=== PATIENT | female | born 1950 | race Caucasian/White ===

== ENCOUNTER → 2017-06-24 10:34 | Outpatient (CLI) | payer MEDICARE, OTHER, SELFPAY ==
--- NOTE | 2017-06-24 10:43 | NM_ITS ---
CLINICAL: 67-year-old female with reported history of abdominal pain. RADIONUCLIDE HEPATOBILIARY SCINTIGRAPHY COMPARISON: None available FINDINGS: Following the intravenous administration of 5.2 mCi of 99m Tc Mebrofenin, hepatobiliary images reveal: 1. Relatively prompt and homogeneous radiopharmaceutical concentration is noted by a normal sized liver. No parenchymal defects are identified. 2. Gallbladder activity is identified at 45 minutes post radiopharmaceutical administration. 3. Small intestinal tract is observed at 30 minutes following tracer injection. 4. Washout of the radiopharmaceutical by the hepatic parenchyma appears qualitatively normal. The patient was administered a fatty meal (8 ounces BOOST-30 grams fat). The post fatty meal consumption gallbladder ejection fraction calculated at 31 minutes was noted to be 43.0 % (normal greater than 30%). NM/Hepatobilliary Img w/Pharm Int IMPRESSION: 1. NORMAL 99m Tc Mebrofenin hepatobiliary imaging examination with fatty meal ingestion. A. A gallbladder ejection fraction calculated to be greater than 30% following the administration of a consumed fatty meal makes the probability of functional hepatobiliary disease (gallbladder and/or sphincter of Oddi dyskinesia) and/or organic hepatobiliary disease (chronic acalculous cholecystitis and/or cystic duct syndrome) to be low. (Amairani and Elan, J Nucl Med 43: 1603, 2002). Electronically Signed: David Gilliam DO at 23:37 EDT Tel , Service support ,
== END ==
PROVIDERS: Family Provider Internal Medicine; PCP Internal Medicine; Visit Provider Internal Medicine Gastroenterology
DX: R11.0 Nausea (principal); R10.11 Right upper quadrant pain
CPT/HCPCS: 78227; A9537

== ENCOUNTER → 2020-02-08 12:28 | Outpatient (CLI) | payer MEDICARE, OTHER, SELFPAY ==
[2020-01-27 12:05] VITALS: BMI 25.7
--- NOTE | 2020-02-08 12:30 | MRI_ITS ---
STUDY: MRI CERVICAL SPINE WITHOUT CONTRAST REASON FOR EXAM: Female, 69 years old. pain -- chronic neck pain, bilat arm burning/numbness TECHNIQUE: Standardized fat and water weighted pulse sequences were obtained in the sagittal and axial planes. COMPARISON: None FINDINGS: Normal foramen magnum and brainstem-cervical cord junction. Normal craniovertebral junction. Normal anterior atlantoaxial articulation. Normal odontoid process. Cervical lordosis maintained. No significant scoliosis. No abnormal cord signal. Vascular flow voids maintained. Minimal paraspinal muscle atrophy. No acute soft tissue process. T2 hemangioma. No acute fracture. No acute dislocation. No acute bone destruction. Moderate facet joint arthrosis. No significant spondylolisthesis. C2-3: Minimal endplate spondylosis. Normal disc height, signal and morphology. Normal central canal. Minimal left neural foraminal narrowing. Normal right neural foramina. C3-4: Minimal endplate spondylosis. Shallow disc/osteophyte complex. Normal central canal. Minimal neural foraminal narrowing. C4-5: Normal endplates. Shallow disc bulge. Normal central canal. Normal neural foramina. C5-6: Mild endplate spondylosis. Bilobed disc bulge. Severe bilateral neural foraminal narrowing, right greater than left. Normal central canal. C6-7: Mild endplate spondylosis. Left paracentral disc/osteophyte complex. Minimal central canal narrowing. Severe left neural foraminal narrowing. Normal right neural foramina. C7-T1: Normal endplates. Shallow disc/osteophyte complex. No central canal narrowing. Mild left neural foraminal narrowing. Normal right neural foramina. MRI/Spine Cervical (Routine) IMPRESSION: Multilevel intervertebral disc disease with minimal central canal narrowing Multilevel neural foraminal narrowing most severe at C5-6 and C6-7 Mild/moderate cervical spine osteoarthritis Electronically Signed: Jefry Sommers DO at 13:46 EST Tel , Service support ,
== END ==
PROVIDERS: PCP Internal Medicine; Referring Provider Orthopaedic Surgery; Visit Provider Orthopaedic Surgery
DX: M50.322 Other cervical disc degeneration at C5-C6 level (principal)
CPT/HCPCS: 72141

== ENCOUNTER 2020-04-19 10:30 | Outpatient (RCR) | payer MEDICARE, OTHER, SELFPAY ==
--- NOTE | 2020-03-27 11:48 | HP.PTEVAL ---
Patient's Visit Information YURY GAYLE is a 70 year old F referred to Physical Therapy by Dr. Beulah Bain MD with a diagnosis of BACK PAIN. Date of Evaluation: 03/27/20 Physical Therapist: Massiel Varela PT, Cert MDT - Visit Plan Frequency: 2-3x /Week Duration: 4-6 Weeks Plan: CONSIDER LOW BACK US. CONSIDER AQUATIC THERAPY. POSTURE CORRECTION/STRENGTHENING, INSTRUCTION IN APPROPRIATE BODY MECHANICS AND ACTIVITY MODIFICATIONS. DLS STARTING WITH A NEUTRAL SPINE PROGRESSING ROM TOLERATED. EMERITA LE ROM, STRETCHING AND STRENGTHENING. HEP INSTRUCTION. - Subjective Work/Leisure: RETIRED. LIVES ALONE. DRIVES. Disability: NO. Present symptoms: LOW BACK PAIN/STIFFNESS, NUMBNESS/TINGLING B THIGH AND BURNING IN EMERITA FEET. Present since: CHRONIC/YEARS OF LBP. LEG SX'S OCCURRED FOR MONTHS IN 2019. LE SX'S WENT AWAY SEVERAL WKS AGO. Pain Scale: N/A. Commenced as a result of: NO APPARENT REASON. Symptoms at onset: LOW BACK PAIN/STIFFNESS. Worse: IN THE MORNING BEFORE GETTING OUT OF BED WITH MVMTS, BURNING IN JOINTS AT NIGHT AND WHEN WAKES UP. BEING COLD. Better: FLEETING. Disturbed sleep: YES. Previous history/Previous treatment: CHIROPRACTOR X ABOUT 40 YEARS AND STILL GOING. REPORTS SHE STARTED GOING IN HER 30'S FOR SCOLIOSIS AND IT STRAIGHTENED OUT. NO BACK SURGERY. HAS HAD PT AT [facility] FOR LOW BACK IN THE PAST - STOPPED DUE TO THE VIRUS BUT SEEMED TO BE HELPING. Treatment this episode: LUMBAR SEAN JAN 2020 - HELPED THE CHILLS - HASN'T HAD ANY SINCE THEN BUT STILL GETS REALLY COLD. Coughing/sneezing/straining: NEGATIVE. Gait: NORMAL. Difficulty initiating urinatin: NO. Accidents: NO. Unexplained weight loss: NO. Imaging: AUGUST 2019 LUMBAR MRI - [facility] - MILD MULTILEVEL SPONDYLOSIS WITH NO HIGH GRADE NEURAL COMPRESISON AT ANY LEVEL. PATIENT REPORTS THEY TOLD HER THAT SHE IS NOT READY FOR SURGERY AND MAY NEVER BE AND REFERRED HER TO PAIN MGMT. PMH: R KNEE OA AND INJECTIONS, FIBROMYALGIA, ESTROGEN DEFICIENCY, BREAST CANCER 2015/2016 - TREATED WITH RADIATION. ALSO TREATED WITH CHEMO BUT COULDN'T TOLERATED IT - DERMATITIS OF VAGINAL AREA X 1.5 YEARS. Recent major surgery: UNREMARKABLE. OTHER: PATIENT REPORTS THAT FOR YEARS SHE HAS NOT BEEN ABLE TO GET ANSWERS ABOUT HER PAIN. PATIENT REPORTS SHE FEELS THE START OF HER MAJOR HEALTH PROBLEMS WAS WHEN SHE STARTED THE CHEMO DRUGS. STATES SHE WAS VERY SICK AND HOMEBOUND. - Objective Sitting/Standing Posture: POOR. Active Correction of posture: NE. Other Observations: INDEP SIT TO STAND WITHOUT UE ASSIST. INDEP GAIT INTO PT WITHOUT ANY ASSISTIVE DEVICES OR LOB. Motor deficit: EMERITA LE'S 5/5 WITH MMT'ING EXCEPT HIPS 4-/5. Sensory deficit: EMERITA LE LIGHT TOUCH SENSATION INTACT AND SYMMETRICAL WITH TESTING TODAY. ROM deficit: MILD HS AND GASTROC SOLEUS COMPLEX TIGHTNESS. Reflexes: EMERITA LE DTR'S 2/3. Dural Signs: NEGATIVE EMERITA LE'S. Lumbar mvmt loss: flex - NIL. ext - MOD. R SG - MIN. L SG - MOD. PATIENT DENIES PAIN WITH LUMBAR ROM TESTING ALL PLANES. NO PAIN OR HURT BUT FELT SOME CRACKING. Core strength: POOR. Palpation: NO ACUTE LOWER THORACIC OR LUMBAR OR HIP TENDERNESS. TREATMENT: NEUROMUSCULAR REEDUCATION - RETRAINING OF MVMT AND POSTURE FOR SITTING, LYING AND STANDING ACTIVITIES. - Goals Goal 1:: DECREASE C/O LOW BACK AND EMERITA LE SX'S. Goal Time Frame: 4-6 Weeks Goal 2:: IMPROVE LIFTING, SLEEP, SOCIAL LIFE, AND HOMEMAKING FUNCTION. Goal Time Frame: 4-6 Weeks Goal 3:: INSTRUCT IN PROPHYLAXIS Goal Time Frame: 4-6 Weeks - Anticipated Interventions Patient/Client Instruction: Educate patient on: Condition, Plan of Care, Risk Factors, Benefits of Fitness Program For the Purpose of:: To improve self management Therapeutic Exercise to Include: Strength training, Body mechanics, Postural training, Flexibilty training, Neuromotor development, In an aquatic setting, Dynamic Lumbar Stabilization For the Purpose of:: To decrease pain, To increase ROM, To improve muscle performance and motor function, To increase tolerance to activity/condition/position, To improve ability of physical actions for home/community/work/leisure Cryotherapy (ice pack, ice massage): Yes Thermo therapy (hot pack): Yes Ultrasound (thermal/non thermal): Yes For the Purpose of:: To decrease pain, To improve nutrient delivery to tissue Thank you for the opportunity to evaluate your patient. For Medicare and Medicare HMO plans, please review the plan of care and approve it. It will need to be FAXED BACK to us at [phone] for Medicare purposes. For Medicare only, by signing this I certify the plan of care. Please let me know if there are questions or concerns regarding this plan of care. Physician Signature: Date:
--- NOTE | 2020-04-19 11:35 | HP.PTDCSUM ---
It has been my pleasure to treat YURY GAYLE referred by Dr. Beulah Cheng MD, with the diagnosis of BACK PAIN for a total of 7 visit(s). Discharge Date: Please see the following information for a summary of their discharge status. Subjective: PATIENT PRESENTS WITH LOW BACK SORENESS. HEP IS GOING GOOD. STATES HER HEP IS ROUGH THOUGH. STATES HER HIPS GET SORE BUT REPORTS SHE RECOVERS QUICKLY BUT SHE DOESN'T GET A SPURT OF ENERGY AFTERWARDS LIKE SHE DID WHEN SHE USED MACHINES. STATES SHE DOES NOT WANT TO USE THE MACHINES AGAIN AT THIS POINT THOUGH DUE TO THE VIRUS AND SEVERAL OTHER REASONS INCLUDING OTHER OBLIGATIONS. FOLLOW UP AMNA'T PENDING WITH DR. CHENG NEXT WEEK. SHE REPORTS SHE FEELS THE NECK AND BACK INJECTIONS ABOUT A 2 MONTHS OR SO AGO HAVE HELPED SOME. LOW BACK Pain Intensity (Out of 10): 1 LEGS Pain Intensity (Out of 10): 1 R SHLD BLADE Pain Intensity (Out of 10): 4 L HIP Pain Intensity (Out of 10): 1 % Improvement: 45 Objective/Function: PATIENT WAS SEEN TODAY FOR RE-ASSESSMENT OF PROGRESS TOWARD THE SET PT GOALS AND THE NEED FOR FURTHER PHYSICAL THERAPY VS READINESS FOR DISCHARGE. UPON EXAM TODAY THERE ARE NO SIGNIFICANT CHANGES SINCE INITIAL EVAL BUT PATIENT IS NOW INDEP WITH A HEP THAT SHE IS ABLE TO TOLERATE WELL. SHE IS A GOOD CANDIDATE TO RETURN TO GYM EX'S WHEN SHE IS COMFORTABLE DOING SO. WE WOULD BE HAPPY TO RE-ASSESS HER AT THAT POINT AND MAKE RECOMMENDATIONS APPROPRIATE FOR HER. LUMBAR OSWESTRY HAS IMPROVED FROM 12 TO 6. Goal 1:: DECREASE C/O LOW BACK AND EMERITA LE SX'S. Goal 2:: IMPROVE LIFTING, SLEEP, SOCIAL LIFE, AND HOMEMAKING FUNCTION. Goal 3:: INSTRUCT IN PROPHYLAXIS Plan: D/C TO HEP AND FOLLOW UP WITH DR. CHENG. PATIENT AGREEABLE. If there are questions or concerns regarding this patient's physical therapy, please feel free to call me at [phone]. Thank you for the referral of this patient. Sincerely, Massiel Varela, PT, Cert MDT
== END 2020-04-19 19:00 | disposition home or self-care (01) ==
LOC: PT 10:30
PROVIDERS: PCP Internal Medicine; Referring Provider Anesthesiology Pain Medicine; Visit Provider Anesthesiology Pain Medicine
DX: M54.5 Low back pain (principal)
CPT/HCPCS: 97110; 97112; 97162; 97164; 97530

== ENCOUNTER → 2020-09-21 10:05 | Outpatient (CLI) | payer MEDICARE, OTHER, SELFPAY ==
[2020-09-21 08:48] VITALS: BMI 22.1
[2020-09-21 12:28] LABS: Vitamin B12 367 pg/mL (211-911); Vitamin D,25 Hydroxy 51.3 ng/mL
[2020-09-21 12:29] LABS: ALB/GLOB Ratio 1.2 RATIO (0.9-2.4); AST(SGOT) 21 U/L (15-37); Alanine Aminotransfer ALT/SGPT 29 U/L (13-56); Alkaline Phosphatase 74 U/L (45-117); Anion Gap 6 (5-15); BUN 12 mg/dL (7-18); BUN/Creat Ratio 19.1 RATIO (10-20); Calcium,Total 8.7 mg/dL (8.5-10.1); Chloride 101 mmol/L (98-107); Creatinine, Serum 0.63 mg/dL (0.55-1.02); EST Glomerular Filtration Rate 99 mL/min (>60); Est Glom Filt Rate - Afr Amer 120 mL/min (>60); Globulin 3.2 g/dL (2.2-4.2); Glucose 89 mg/dL (74-106); Potassium 4.3 mmol/L (3.5-5.1); Protein, Total 7.2 g/dL (6.4-8.2); Sodium Level 135 mmol/L (136-145); T4 Free Direct 1.04 ng/dL (0.76-1.46)
[2020-09-22 13:08] LABS: Thyroid Peroxidase AB < 8 IU/mL (0-34)
== END ==
PROVIDERS: PCP Internal Medicine; Referring Provider Internal Medicine Endocrinology, Diabetes & Metabolism; Visit Provider Internal Medicine Endocrinology, Diabetes & Metabolism
DX: R11.0 Nausea (principal); R19.8 Other specified symptoms and signs involving the digestive system and abdomen; M81.0 Age-related osteoporosis without current pathological fracture; E55.9 Vitamin D deficiency, unspecified
CPT/HCPCS: 36415; 80053; 82306; 82533; 82607; 83970; 84439; 84443; 86376

== ENCOUNTER → 2020-11-19 11:50 | Outpatient (CLI) | payer MEDICARE, OTHER, SELFPAY ==
[2020-11-19 13:37] LABS: Vitamin B12 766 pg/mL (211-911)
== END ==
PROVIDERS: PCP Internal Medicine; Referring Provider Internal Medicine Gastroenterology; Visit Provider Internal Medicine Gastroenterology
DX: R11.0 Nausea (principal)
CPT/HCPCS: 36415; 82607; 82746; 83921

== ENCOUNTER → 2020-11-21 06:48 | Outpatient (CLI) | payer MEDICARE, OTHER, SELFPAY | PROVIDERS: PCP Internal Medicine; Referring Provider Internal Medicine Gastroenterology; Visit Provider Internal Medicine Gastroenterology | DX: R11.0 Nausea (principal) | CPT/HCPCS: 36415 ==

== ENCOUNTER → 2021-02-19 13:49 | Outpatient (CLI) | payer MEDICARE, OTHER, SELFPAY ==
[2021-02-19] MEDS: 0.9% NaCl IVPB Med Flush (250 mL) 15 ML IV (14:10)
[2021-02-19] MEDS: 0.9% NaCl Peripheral Flush Adult/Peds IV (14:14)
[2021-02-19] MEDS: Zoledronic Acid 5 MG 100 ML 300 MG IV (14:15)
== END ==
PROVIDERS: PCP Internal Medicine; Referring Provider Internal Medicine Endocrinology, Diabetes & Metabolism; Visit Provider Internal Medicine Endocrinology, Diabetes & Metabolism
DX: M81.0 Age-related osteoporosis without current pathological fracture (principal)
CPT/HCPCS: 96365; J7050; A4216; J3489

== ENCOUNTER 2021-04-01 11:55 | Outpatient (CLI) | payer MEDICARE, OTHER, SELFPAY ==
[2021-04-01 15:22] LABS: PTHIN 83.8 pg/mL (18.4-80.1)
[2021-04-01 15:25] LABS: T3 Total - Triiodothyronine 1.14 ng/mL (0.6-1.81)
[2021-04-01 15:34] LABS: Calcium,Total 8.8 mg/dL (8.5-10.1); T4 Free Direct 1.03 ng/dL (0.76-1.46); Thyroid Stim Hormone (TSH) 1.04 uIU/mL (0.358-3.74)
[2021-04-04 11:04] LABS: Thyroid Peroxidase AB < 8 IU/mL (0-34)
== END 2021-04-01 23:59 | disposition home or self-care (01) ==
PROVIDERS: PCP Internal Medicine; Referring Provider Dermatology Pediatric Dermatology; Visit Provider Dermatology Pediatric Dermatology
DX: D64.9 Anemia, unspecified (principal); L82.1 Other seborrheic keratosis; L81.4 Other melanin hyperpigmentation; D18.01 Hemangioma of skin and subcutaneous tissue; D22.5 Melanocytic nevi of trunk; L57.8 Other skin changes due to chronic exposure to nonionizing radiation; L81.8 Other specified disorders of pigmentation; L11.1 Transient acantholytic dermatosis [Grover]; L85.3 Xerosis cutis; D48.5 Neoplasm of uncertain behavior of skin; R58 Hemorrhage, not elsewhere classified; L53.8 Other specified erythematous conditions; Z71.89 Other specified counseling; Z41.9 Encounter for procedure for purposes other than remedying health state, unspecified
CPT/HCPCS: 36415; 82310; 82330; 83970; 84439; 84443; 84480; 86376

== ENCOUNTER 2021-05-15 13:52 | Outpatient (CLI) | payer MEDICARE, OTHER, SELFPAY ==
[2021-05-15 15:15] LABS: Magnesium 2.7 mg/dL (1.6-2.6)
[2021-05-15 15:22] LABS: Vitamin B12 1069 pg/mL (211-911); Vitamin D,25 Hydroxy 55.2 ng/mL
== END 2021-05-15 23:59 | disposition home or self-care (01) ==
LOC: BIMLAB 13:53
PROVIDERS: PCP Internal Medicine; Referring Provider Internal Medicine Endocrinology, Diabetes & Metabolism; Visit Provider Internal Medicine Endocrinology, Diabetes & Metabolism
DX: R20.2 Paresthesia of skin (principal); M81.0 Age-related osteoporosis without current pathological fracture; E55.9 Vitamin D deficiency, unspecified
CPT/HCPCS: 36415; 82306; 82607; 83735

== ENCOUNTER 2021-06-03 10:29 | Outpatient (CLI) | payer MEDICARE, OTHER, SELFPAY ==
--- NOTE | 2021-06-03 12:21 | NEURO_ITS ---
NCS and/or EMG Patient Report Ordering Doctor: Beulah Bain DATE OF SERVICE: 06/03/21 Indication: Intermittent burning pain the bilateral forearms. Symptoms are largely absent during the day, but bothersome at night while trying to sleep. Evaluate for entrapment neuropathy or cervical radiculopathy. Findings: Nerve conduction studies were performed in the right and left upper extremities. The right median motor study recording the abductor pollicis brevis showed a normal amplitude, prolonged distal latency and slowed conduction velocity. The right ulnar motor study recording the abductor digiti minimi showed a normal amplitude, normal distal latency and normal conduction velocity. No conduction block or focal slowing was present across the elbow. Right median-ulnar lumbrical / interosseous motor latencies showed a prolonged median latency compared to the ulnar. The right median sensory response recording digit two showed a normal amplitude, prolonged latency and slowed conduction velocity. The right ulnar sensory response recording digit five showed a normal amplitude, latency and conduction velocity. The right radial sensory response recording over the extensor snuff box showed a normal amplitude, latency and conduction velocity. The left median motor study recording the abductor pollicis brevis showed a borderline amplitude, prolonged distal latency and normal conduction velocity. The left ulnar motor study recording the abductor digiti minimi showed a normal amplitude, normal distal latency and normal conduction velocity. No conduction block or focal slowing was present across the elbow. The left ulnar motor study recording the first dorsal interosseous showed a normal amplitude, normal distal latency and normal conduction velocity. No conduction block or focal slowing was present across the elbow. Left median-ulnar lumbrical / interosseous motor latencies showed a prolonged median latency compared to the ulnar. The left median sensory response recording digit two showed a normal amplitude, prolonged latency and slowed conduction velocity. The left ulnar sensory r esponse recording digit five showed a normal amplitude, latency and conduction velocity. The left radial sensory response recording over the extensor snuff box showed a normal amplitude, latency and conduction velocity. Needle EMG of the left upper extremity and cervical paraspinal muscles was performed. No denervation was seen in any muscle. Motor units in the abductor pollicis brevis were mildly polyphasic, but otherwise unremarkable. Motor units in the first dorsal interosseous and flexor digitorum profundus were borderline large. All other motor unit morphology, activation and recruitment patterns were normal. Needle EMG of the right upper extremity was contraindicated due to the patient's history of prior axillary lymph node dissection. Impression: This is an abnormal study. 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 These findings are compatible with the clinical diagnosis of carpal tunnel syndrome. In addition, there is no definitive electrophysiologic evidence of a superimposed cervical radiculopathy in the left upper extremity. The borderline motor unit changes seen in the first dorsal interosseous and flexor digitorum profundus are of unclear significance. If an ulnar neuropathy is suspected clinically, a neuromuscular ultrasound may be considered. Dalton Platt D.O. Multi Select Codes Neurology Neurology Interp Codes: 17804-73 Musc test done w/n test comp (interp) and 31280-35 Nrv cndj test 13/> studies (interp)
== END 2021-06-03 23:59 | disposition home or self-care (01) ==
PROVIDERS: PCP Internal Medicine; Referring Provider Anesthesiology Pain Medicine; Visit Provider Anesthesiology Pain Medicine
DX: R20.0 Anesthesia of skin (principal); M54.10 Radiculopathy, site unspecified
CPT/HCPCS: 95886; 95913

== ENCOUNTER 2021-06-10 16:55 | Emergency (ER) | payer MEDICARE, OTHER, SELFPAY ==
[2021-06-10 16:57] VITALS: BP 163/88; PULSE 85; RESP 16; TEMP 37.2; O2SAT 96; BMI 23.8
[2021-06-10 19:09] VITALS: BP 182/95; PULSE 84; RESP 12; O2SAT 98
[2021-06-10 19:37] VITALS: BP 153/80; PULSE 72; RESP 14; O2SAT 98
--- NOTE | 2021-06-10 20:28 | EKG12_ITS ---
Test Reason : DYSRHYTHMIA Blood Pressure : / mmHG Vent. Rate : 068 BPM Atrial Rate : 068 BPM P-R Int : 158 ms QRS Dur : 086 ms QT Int : 420 ms P-R-T Axes : 063 013 050 degrees QTc Int : 446 ms Normal sinus rhythm Normal ECG Confirmed by STACEY RETANA, ETHEL ([id number]), rewrite editor ARELI SOLIS ([id number]) on 06/11/2021 9:03:00 AM Referred By: YOLETTE Confirmed By:ETHEL IBARRA MD
--- NOTE | 2021-06-10 20:29 | EDS_ITS ---
HPI History of Present Illness Chief Complaint: Hypertension Informant: patient Onset/Context/Timing Onset: Weeks (2) Context: Gradual Onset Timing: Waxes and wanes Quality: Cold and burning Location: Bilateral upper extremities and chest Worsened by: Nothing Relieved by: Nothing Narrative Narrative: Patient presents with elevated blood pressures that have been getting worse over the past 2 weeks. Patient states she has a cold and burning sensation over both upper extremities and across her upper chest. Patient states this waxes and wanes. Patient states nothing makes it worse and nothing makes it better. Patient states she had a back injection by Dr. Odell dotsonimaterosalina 2 weeks ago and developed a fever the next day. Patient states her fevers have been intermittent. Patient states they have been up to 101.7 at home. Patient checked her blood pressure today at home and it was 196/105 with a pulse of 96. Patient laid down for approximately 1 hour and rechecked it and it was still 188/85 with a heart rate of 93. Patient then came to the emergency department. Patient denies any shortness of breath. Patient admits to nausea but denies any vomiting. Patient mitts to some diarrhea. Patient also admits to some mild weakness. [facility] Medical History Arthritis Back problem Breast cancer Breast lump Cataracts, bilateral Gastrointestinal problem GERD (gastroesophageal reflux disease) Headache Heart murmur High cholesterol Hormone deficiency Hx of breast cancer Hyperparathyroidism Osteoarthritis Osteopenia Paresthesia Skin cancer UTI (urinary tract infection) Home Medications E+ 2 tab PO 01/27/20 [History Last Taken Unknown] cholecalciferol (vitamin D3) 125 mcg (5,000 unit) capsule 125 mcg PO DAILY 01/27/20 [History Last Taken Unknown] docosahexaenoic acid 300 mg capsule 600 mg PO DAILY cap 02/10/20 [History Last Taken Unknown] omega 7-wpn-bjz-fish oil 290 mg-430 mg-1.4 gram capsule cap PO 02/10/20 [History Last Taken Unknown] omega3 1,000 yj-wsv-irp-other tx5m-bzrt oil 1,400 mg capsule,delay rel cap PO 02/10/20 [History Last Taken Unknown] vitamin K2 40 mcg tablet 40 mcg PO DAILY 02/10/20 [History Last Taken Unknown] BONE BROTH PROTEIN CHICKEN PO 09/21/20 [History Last Taken Unknown] D3K PO 09/21/20 [History Last Taken Unknown] GI DR PRO PO 09/21/20 [History Last Taken Unknown] probiotic pro PO 09/21/20 [History Last Taken Unknown] Bone brooth collegen PO 01/11/21 [History Last Taken Unknown] chrondrotin PO 02/07/21 [History Last Taken Unknown] collagen type 2 PO 02/07/21 [History Last Taken Unknown] glucosamine sulfate 500 mg tablet 30 mg PO DAILY tab 02/07/21 [History Last Taken Unknown] llyaluronic acid PO 02/07/21 [History Last Taken Unknown] vitamin B complex 1 tab PO DAILY 02/07/21 [History Last Taken Unknown] zoledronic acid 5 mg/100 mL in mannitol 5 %-water intravenous piggybck 1 ea .ROUTE ONCE #100 ml 02/07/21 [Rx Last Taken Unknown] Allergy/AdvReac Type Severity Reaction Status Date / Time No Known Allergies Allergy Verified 06/10/21 17:01 Family History Father Heart disease Mother Heart disease Osteoporosis Thyroid disorder Brother Heart disease Hypertension Hypercholesterolemia Daughter Cancer Sister Arthritis Hypertension Hypercholesterolemia Osteoporosis Thyroid disorder Surgical History H/O: hysterectomy Hx of cataract surgery Social History Smoking Status: Never smoker alcohol intake: never substance use type: does not use what type of physical activity do you participate in: walking and weight training frequency: 1-2 times per week ROS ROS ED Constitutional Constitutional ED: Reports fever(s); Denies chills Eyes Eyes: Denies blurry vision or change in vision ENT ENT ED: Reports sore throat; Denies rhinorrhea Cardiovascular Cardiovascular: Reports chest pain; Denies palpitations Respiratory/Chest Respiratory/Chest: Denies cough or dyspnea Gastrointestinal Gastrointestinal: Reports diarrhea and nausea; Denies vomiting Genitourinary Genitourinary ED: Denies dysuria or hematuria Musculoskeletal Musculoskeletal: Reports back pain; Denies neck pain Integumentary Reports rash; Denies abscess Neurologic Neurologic: Reports weakness; Denies headache(s) Allergic/Immunologic Allergic/Immunologic ED: Denies mouth swelling or urticaria EXAM Physical Exam Const Vital Signs: 06/10/21 16:57 06/10/21 19:07 06/10/21 19:09 Temperature 99.0 F Temperature Source Oral Pulse Rate 85 84 Respiratory Rate 16 12 Respiratory Effort Normal Non-Labored Respiratory Pattern Normal Blood Pressure 163/88 H 182/95 H Blood Pressure Mean 113 124 Pulse Ox 96 98 Oxygen Delivery Method Room Air Room Air 06/10/21 19:37 06/10/21 21:36 Temperature Temperature Source Pulse Rate 72 81 Respiratory Rate 14 16 Respiratory Effort Respiratory Pattern Blood Pressure 153/80 H 155/79 H Blood Pressure Mean 104 104 Pulse Ox 98 98 Oxygen Delivery Method Room Air Room Air Positive well nourished and well developed General Appearance ED: well developed and NAD HEENT Reports moist mucous membranes Neck supple and no JVD Resp normal respiratory effort and clear to auscultation bilaterally Cardio regular rate, regular rhythm and no murmurs GI normal to inspection, nondistended, normoactive bowel sounds and non-tender Palpation: soft Extremity normal to inspection General Extremety ED: Negative for edema or tenderness General Extremity: Negative for edema Neuro oriented x3, CN's II-XII intact bilaterally and no sensory deficits noted Sensorium / Orientation: alert Motor Exam: strength 5/5 throughout Psych mental status grossly normal Skin no rashes or lesions noted MDM MDM MDM Narrative Medical decision making narrative: EKG was obtained. On my interpretation, it showed a normal sinus rhythm with a rate of 68. [place] interval, QRS interval, and QTc intervals were all normal. [place] was normal. There are no acute ST or T wave changes. CBC was within normal limits. Comprehensive metabolic profile was within normal limits. High-sensitivity troponin was normal. Urinalysis does not show any evidence of urinary tract infection. Portable 1 view chest x- ray was obtained. On my interpretation, lung velásquez show a nodular density in the left upper lobe. This could be overlapping structures. There is normal cardiac silhouette. Bony thorax is normal. There is no acute process noted. Radiologist also interpreted the x-ray and agrees. Patient remained afebrile here. Patient's blood pressure is 155/79 on reevaluation. Patient was advised to continue to monitor her blood pressure. Patient was instructed to follow-up with her primary care physician for further evaluation. Patient understood and was agreeable with the plan. All questions were answered. Lab Data Attestation: I reviewed the patient's lab results. Labs: Laboratory Results - last 24 hr 06/10/21 06/10/21 06/10/21 20:39 20:39 20:40 WBC 8.1 RBC 3.86 L Hgb 12.4 Hct 35.9 L MCV 93.0 MCH 32.1 H MCHC 34.5 RDW Std Deviation 41.5 RDW Coeff of Shefali 12.1 Plt Count 297 MPV 8.4 Immature Gran % (Auto) 0.600 Neut % (Auto) 72.3 H Lymph % (Auto) 16.6 L [place] % (Auto) 9.4 Eos % (Auto) 0.6 Baso % (Auto) 0.5 Absolute Neuts (auto) 5.8 Absolute Lymphs (auto) 1.34 Nucleated RBC % 0 Sodium 134 L Potassium 3.8 Chloride 101 Carbon Dioxide 28.0 Anion Gap 5 BUN 7 Creatinine 0.57 Estim Creat Clear Calc 43.27 Est GFR (MDRD) Af Amer 134 Est GFR (MDRD) Non-Af 111 BUN/Creatinine Ratio 12.3 Glucose 99 Calcium 9.0 Total Bilirubin 0.60 AST 12 L ALT 17 Alkaline Phosphatase 48 Troponin I High Sens 5 Total Protein 6.9 Albumin 3.7 Globulin 3.2 Albumin/Globulin Ratio 1.2 Urine Color Yellow Urine Clarity Clear Urine pH 7.0 Ur Specific Gordon 1.010 Urine Protein Negative Urine Glucose (UA) Normal Urine Ketones Negative Urine Occult Blood Negative Urine Nitrite Negative Urine Bilirubin Negative Urine Urobilinogen Normal Ur Leukocyte Esterase 25 H Urine RBC 0 SEEN Urine WBC 0 SEEN Ur Squamous Epith Cells 0-5 SEEN Urine Bacteria 0 SEEN Urine Mucus 0 SEEN Radiography Chest X-Ray - ED: 1 View, Read by ED Physician, Read by Radiologist and No Acute Disease Diagnostic Testing: Clinical Impression(s) from Imaging Studies Chest X-Ray 06/10/21 20:44 IMPRESSION: Hyperinflated lungs. No infiltrates. Nodular opacity left upper lobe possibly superimposed structures. Follow-up imaging chest x-ray and/or CT may be helpful to exclude nodule as clinically indicated. Electronically Signed: Niurka Rivers MD at 21:19 EDT , EKG Initial EKG: Attestation: I personally reviewed and interpreted this EKG as follows: Interpretation: Sinus Rhythm (68) and No Acute Injury Pattern Discharge Plan Triage Chief Complaint: Hypertension ED Provider: Jefry Mir Dx/Rx/DC Orders Clinical Impression: Hypertension, History of fever Instructions: ED Hypertension, To Be Confirmed Prescriptions: No Action cholecalciferol (vitamin D3) 125 mcg (5,000 unit) capsule 125 mcg PO DAILY RF: 0 E+ 2 tab PO RF: 0 DHA Algal-900 300 mg capsule 600 mg PO DAILY RF: 0 omega 8-raw-vaf-fish oil 290 mg-430 mg-1.4 gram capsule 290-430-1.4 mg-mg-gram capsule PO RF: 0 omega3 1,000 qq-ryn-esy-other kk2p-mfio oil 1,400 mg capsule,delay rel 1,000- 1,400 mg capsule,delayed release(DR/EC) PO RF: 0 vitamin K2 40 mcg tablet 40 mcg PO DAILY RF: 0 D3K PO RF: 0 probiotic pro PO RF: [address] PRO PO RF: 0 BONE BROTH PROTEIN CHICKEN PO RF: 0 Bone brooth collegen PO RF: 0 collagen type 2 PO RF: 0 chrondrotin PO RF: 0 llyaluronic acid PO RF: 0 glucosamine sulfate [Glucosamine] 500 mg tablet 30 mg PO DAILY RF: 0 vitamin B complex [B Complex-Vitamin B12] Tablet 1 tab PO DAILY RF: 0 zoledronic andj-cftndlus-yrygz 5 mg/100 mL piggyback 1 ea .Route ONCE Qty: 100 RF: 0 Primary Care Provider: Yuval Woods Referrals: Yuval Woods MD [Primary Care Provider] - 3-5 Days Disposition Disposition: Home, Self Care
[2021-06-10 20:42] LABS: Bacteria 0 SEEN /hpf (None Seen); Mucous, Urine 0 SEEN /hpf (<or=2+); Red Blood Cells-Urine 0 SEEN /hpf (0-5); White Blood Cells 0 SEEN /hpf (0-5)
[2021-06-10 20:43] LABS: Color, Urine Yellow (Yellow); Glucose, Dipstick Normal (Normal); Ketone-Dipstick Negative (Negative); Leukocyte Esterase-Dipstick 25 /ul (Negative); Nitrite-Dipstick Negative (Negative); Occult Blood-Urine Negative /ul (Negative); Protein-Dipstick Negative (Negative); Urine Bilirubin Dipstick Negative (Negative); Urine Clarity Clear (Clear); Urine Urobilinogen Normal (Normal)
[2021-06-10 20:44] LABS: Absolute Lymphocyte Count 1.34 X10^3/uL (0.83-4.51); Absolute Neutrophil Count 5.8 X10^3/uL (2.0-7.7); Basophil# 0.04 X10^3/uL; Basophil% 0.5 % (0-1); Eosinophil# 0.05 X10^3/uL; Eosinophils% 0.6 % (0-5); Hematocrit 35.9 % (37-47); Hemoglobin 12.4 g/dL (12.0-15.0); Lymphocyte # 1.34 X10^3/ul (0.83-4.51); Lymphocyte % 16.6 % (19-41); Mean Corp Hgb Conc 34.5 g/dL (32-36); Mean Corpuscular Hgb 32.1 pg (27.0-32.0); Mean Platelet Vol. 8.4 fl (6.2-12.0); Monocyte# 0.76 X10^3/uL; Monocyte% 9.4 % (0-10); NRBC Flagged by Analyzer 0 % (0-5); Neutrophil # 5.81 X10^3/uL (2.7-7.7); Neutrophil % 72.3 % (47-70); Platelet Count 297 K/mm3 (150-450); RBC Distribution Width CV 12.1 % (11.6-14.6); RBC Distribution Width SD 41.5 fl (35.1-43.9); Red Blood Count 3.86 M/mm3 (4.2-5.4); White Blood Count 8.1 K/mm3 (4.4-11.0)
--- NOTE | 2021-06-10 20:44 | RAD_ITS ---
STUDY: X-RAY CHEST REASON FOR EXAM: Female, 71 years old. High blood pressure TECHNIQUE: AP portable. 8:43 PM. COMPARISON: None. FINDINGS: LUNGS: Lungs are hyperexpanded. No consolidation. Small approximately 1 cm nodular opacity left upper lobe may be superimposed structures, cannot entirely exclude nodule. No pneumothorax. MEDIASTINUM: Unremarkable. CARDIAC SILHOUETTE: Not enlarged. BONES AND SOFT TISSUES: No acute abnormalities. RAD/Chest 1 View (Portable) IMPRESSION: Hyperinflated lungs. No infiltrates. Nodular opacity left upper lobe possibly superimposed structures. Follow-up imaging chest x-ray and/or CT may be helpful to exclude nodule as clinically indicated. Electronically Signed: Niurka Rivers MD at 21:19 EDT ,
[2021-06-10 20:57] LABS: Squamous Epithelial Cells - UA 0-5 SEEN /hpf (5-10)
[2021-06-10 21:03] LABS: ALB/GLOB Ratio 1.2 RATIO (0.9-2.4); AST(SGOT) 12 U/L (15-37); Alanine Aminotransfer ALT/SGPT 17 U/L (13-56); Albumin, Serum 3.7 g/dL (3.2-5.0); Alkaline Phosphatase 48 U/L (45-117); Anion Gap 5 (5-15); BUN 7 mg/dL (7-18); BUN/Creat Ratio 12.3 RATIO (10-20); Chloride 101 mmol/L (98-107); Creatinine, Serum 0.57 mg/dL (0.55-1.02); EST Glomerular Filtration Rate 111 mL/min (>60); Est Glom Filt Rate - Afr Amer 134 mL/min (>60); Estimated Creatinine Clearance 43.27 ml/min; Globulin 3.2 g/dL (2.2-4.2); Glucose 99 mg/dL (74-106); Potassium 3.8 mmol/L (3.5-5.1); Protein, Total 6.9 g/dL (6.4-8.2); Sodium Level 134 mmol/L (136-145); Troponin-I HS 5 pg/mL (3.0-54.0)
[2021-06-10 21:36] VITALS: BP 155/79; PULSE 81; RESP 16; O2SAT 98
[2021-06-10 22:25] VITALS: BP 149/75; TEMP 36.8
== END 2021-06-10 22:30 | disposition home or self-care (01) ==
PROVIDERS: Emergency Provider Emergency Medicine; PCP Internal Medicine; Visit Provider Emergency Medicine
DX: I10 Essential (primary) hypertension (principal)
CPT/HCPCS: 71045; 80053; 81001; 84484; 85025; 93005; 99284; A4216

== ENCOUNTER → 2021-07-17 | Outpatient (CLI) | payer MEDICARE, OTHER, SELFPAY ==
--- NOTE | 2021-07-17 16:58 | MRI_ITS ---
STUDY: MRI CERVICAL SPINE WITHOUT CONTRAST REASON FOR EXAM: Female, 71 years old. paresthesia TECHNIQUE: Standardized fat and water weighted pulse sequences were obtained in the sagittal and axial planes. COMPARISON: 02/08/2020 FINDINGS: Normal foramen magnum and brainstem-cervical cord junction. Normal craniovertebral junction. Normal anterior atlantoaxial articulation. Normal odontoid process. Normal cervical lordosis. Normal vertebral bodies and posterior osseous elements. C2-3: Normal endplates. Normal disc height, signal and tiny central disc protrusion.. Normal central canal and intervertebral neural foramina. C3-4: Normal endplates. Normal disc height, signal and tiny central disc protrusion. Normal central canal and intervertebral neural foramina. C4-5: Normal endplates. Normal disc height signal and tiny central disc protrusion. Normal central canal and intervertebral neuroforamina C5-6:: Disc space and minor endplate spurring with right foraminal osteophyte protrusion. Normal central canal. Moderate left neuroforaminal encroachment and severe narrowing on the right secondary to bony hypertrophy. C6-7: Narrowed disc space with minimal bulging disc osteophyte complex and left foraminal disc/osteophyte protrusion. Normal central canal. Severe left neuroforaminal stenosis secondary to disc and bony hypertrophy C7-T1: Normal endplates. Normal disc height, signal and morphology. Normal central canal and intervertebral neural foramina. Normal cervical cord. Normal visualized soft tissue structures. No significant changes since prior exam MRI/Spine Cervical (Routine) IMPRESSION: No evidence for acute fracture or other significant bony pathology. Degenerative changes and multilevel spinal stenosis secondary to disc disease and bony hypertrophy. Findings as above Electronically Signed: Stalin Patino MD at 22:41 EDT ,
== END | disposition home or self-care (01) ==
LOC: MRI 16:39
PROVIDERS: PCP Internal Medicine; Visit Provider Orthopaedic Surgery
DX: R20.2 Paresthesia of skin (principal)
CPT/HCPCS: 72141

== ENCOUNTER → 2022-02-06 | Outpatient (CLI) | payer MEDICARE, OTHER, SELFPAY ==
[2022-02-06 10:54] LABS: PTHIN 68.7 pg/mL (18.4-80.1)
[2022-02-06 10:56] LABS: ALB/GLOB Ratio 1.1 RATIO (0.9-2.4); AST(SGOT) 26 U/L (15-37); Alanine Aminotransfer ALT/SGPT 32 U/L (13-56); Alkaline Phosphatase 74 U/L (45-117); Anion Gap 4 (5-15); BUN 9 mg/dL (7-18); BUN/Creat Ratio 15.3 RATIO (10-20); Calcium,Total 9.3 mg/dL (8.5-10.1); Chloride 100 mmol/L (98-107); Creatinine, Serum 0.59 mg/dL (0.55-1.02); EST Glomerular Filtration Rate 106 mL/min (>60); Est Glom Filt Rate - Afr Amer 128 mL/min (>60); Globulin 3.6 g/dL (2.2-4.2); Glucose 95 mg/dL (74-106); Potassium 4.4 mmol/L (3.5-5.1); Protein, Total 7.6 g/dL (6.4-8.2); Sodium Level 135 mmol/L (136-145)
[2022-02-06 10:57] LABS: Vitamin D,25 Hydroxy 36.4 ng/mL
== END | disposition home or self-care (01) ==
LOC: LAB 09:35
PROVIDERS: PCP Internal Medicine; Referring Provider Internal Medicine Endocrinology, Diabetes & Metabolism; Visit Provider Internal Medicine Endocrinology, Diabetes & Metabolism
DX: M81.0 Age-related osteoporosis without current pathological fracture (principal); E55.9 Vitamin D deficiency, unspecified
CPT/HCPCS: 36415; 80053; 82306; 83970

== ENCOUNTER → 2022-02-19 | Outpatient (CLI) | payer MEDICARE, OTHER, SELFPAY ==
[2022-02-19 13:46] VITALS: BP 168/78; PULSE 83; TEMP 35.8; O2SAT 99
[2022-02-19] MEDS: 0.9% NaCl Peripheral Flush Adult/Peds IV (14:09)
[2022-02-19] MEDS: Zoledronic Acid 5 MG 100 ML 300 MG IV (14:09)
[2022-02-19] MEDS: 0.9% NaCl IVPB Med Flush (250 mL) 15 ML IV (14:09)
[2022-02-19 14:45] VITALS: BP 130/65; PULSE 72; RESP 16; TEMP 36.1; O2SAT 100
== END | disposition home or self-care (01) ==
LOC: MEDOUTP 13:35
PROVIDERS: PCP Internal Medicine; Referring Provider Internal Medicine Endocrinology, Diabetes & Metabolism; Visit Provider Internal Medicine Endocrinology, Diabetes & Metabolism
DX: M81.0 Age-related osteoporosis without current pathological fracture (principal)
CPT/HCPCS: 96365; J7050; A4216; J3489

== ENCOUNTER → 2022-02-21 | Outpatient (CLI) | payer MEDICARE, OTHER, SELFPAY ==
--- NOTE | 2022-02-21 09:53 | ECHOD_ITS ---
Reason For Study: Chronic fever Procedure This was a 2D Doppler, Color Flow transthoracic echocardiogram. Myocardial strain analysis was performed in this exam to aid in the assessment of cardiac function. The exam was of adequate technical quality. Exam performed in department. Left Ventricle Normal LV size. Left ventricular systolic function is normal. The estimated ejection fraction is 60 %. The global longitudinal strain = -19 % (normal). Diastolic function is indeterminate. No regional wall motion abnormalities noted. Right Ventricle Normal RV size. Normal systolic function. Atria Normal left atrium. Normal right atrium. No doppler evidence for ASD. Mitral Valve There is no mitral annular calcification. Mild diffuse mitral valve thickening. The mitral papillary muscle appears thickened and/or calcified. Equivocal mitral valve prolapse. Mild (1+) mitral valve insufficiency. Tricuspid Valve Normal tricuspid valve. Mild to moderate (1-2+) eccentric tricuspid valve insufficiency. Right ventricular systolic pressure estimated to be 21 mmHg. Aortic Valve Trisinus/trileaflet aortic valve. Normal aortic valve. Pulmonic Valve The pulmonic valve is not well visualized. Mild (1+) eccentric pulmonic valve insufficiency. Great Vessels Normal sized aortic root. Pericardium/Pleural No pericardial effusion. MMode/2D Measurements & Calculations LVIDd: 5.1 cm IVSd: 1.0 cm Ao root diam: 3.7 cm LVIDs: 3.6 cm LVPWd: 0.74 cm RVDd: 3.3 cm FS: 30.3 % LAV(MOD-bp): 38.9 ml LVAd ap4: 25.6 cm2 LVAd ap2: 24.6 cm2 LAV(MOD-bp) Indexed: 22.2 ml/m2 LVLd ap4: 7.4 cm LVLd ap2: 7.0 cm LAV(MOD-sp2): 41.1 ml EDV(MOD-sp4): 74.0 ml EDV(MOD-sp2): 72.5 ml LAV(MOD-sp4): 36.4 ml EDV(sp4-el): 74.9 ml EDV(sp2-el): 73.5 ml LVAs ap4: 13.1 cm2 LVAs ap2: 13.9 cm2 LVLs ap4: 5.9 cm LVLs ap2: 6.1 cm ESV(MOD-sp4): 25.2 ml ESV(MOD-sp2): 27.8 ml ESV(sp4-el): 24.9 ml ESV(sp2-el): 27.1 ml EF(MOD-sp4): 65.9 % EF(MOD-sp2): 61.6 % EF(sp4-el): 66.8 % SV(MOD-sp4): 48.7 ml SV(MOD-sp2): 44.7 ml SV(sp4-el): 50.0 ml LA dimension(2D): 3.7 cm LA A4 area: 15.4 cm2 RA A4 area: 11.3 cm2 Time Measurements MV dec time: 0.29 sec Doppler Measurements & Calculations MV E max fransisco: 93.0 cm/sec Lat Peak E' Fransisco: 7.3 cm/sec Med Peak E' Fransisco: 6.5 cm/sec MV A max fransisco: 122.2 cm/sec E/E' lat: 12.7 E/E' med: 14.4 MV E/A: 0.76 MV dec slope: 324.9 cm/sec2 Ao V2 max: 139.1 cm/sec LV V1 max: 109.7 cm/sec Ao max P.7 mmHg LV V1 max P.8 mmHg Ao V2 mean: 98.8 cm/sec LV V1 mean P.0 mmHg Ao mean P.4 mmHg LV V1 mean: 82.3 cm/sec Ao V2 VTI: 35.7 cm LV V1 VTI: 28.1 cm AV (velocity ratio): 0.79 PA V2 max: 91.4 cm/sec TR max fransisco: 208.9 cm/sec TR max P.5 mmHg ECHO/Echo Complete Interpretation Summary Left ventricular systolic function is normal. The estimated ejection fraction is 60 %. The global longitudinal strain = -19 % (normal). Mild diffuse mitral valve thickening. The mitral papillary muscle appears thickened and/or calcified. Equivocal mitral valve prolapse. Mild (1+) mitral valve insufficiency. Mild to moderate (1-2+) eccentric tricuspid valve insufficiency. Mild (1+) eccentric pulmonic valve insufficiency. Right ventricular systolic pressure estimated to be 21 mmHg. Diastolic function is indeterminate. Ordering Physician: AJ MONAHAN Referring Physician: Yuval Woods Performed By: Ree Salvador RDCS
== END | disposition home or self-care (01) ==
LOC: CVS 09:51
PROVIDERS: PCP Internal Medicine
DX: R50.9 Fever, unspecified (principal)
CPT/HCPCS: 93306

== ENCOUNTER → 2022-04-01 | Outpatient (CLI) | payer MEDICARE, OTHER, SELFPAY ==
--- NOTE | 2022-04-01 16:38 | CT_ITS ---
INDICATION: SINUSITIS EXAMINATION: CT SINUSES - CT Sinuses W/O Contrast Injection TECHNIQUE: Helically acquired images were obtained of the paranasal sinuses. A radiation dose optimization technique was used for this scan. COMPARISON: None. FINDINGS: FRONTAL SINUSES AND RECESSES: Clear. ETHMOID AIR CELLS: Clear. MAXILLARY SINUSES: Small right maxillary sinus effusion. OSTIOMEATAL COMPLEXES: Clear and normally formed. SPHENOID SINUSES: Clear. SPHENOETHMOIDAL RECESSES: Clear. ANCILLARY FINDINGS: NASAL TURBINATES: Unremarkable. NASAL SEPTUM: Midline. ORBITS: Bilateral ocular lens replacements. VISUALIZED DENTITION: No periodontal osseous erosion. ANTERIOR CRANIAL FOSSA: Unremarkable. CT/Sinus/Facial Bone IMPRESSION: Small right maxillary sinus effusion. Electronically Signed: Robert Copeland MD at 23:56 EST ,
== END | disposition home or self-care (01) ==
LOC: CT 16:36
PROVIDERS: PCP Internal Medicine; Visit Provider Otolaryngology Otolaryngology/Facial Plastic Surgery
DX: J32.8 Other chronic sinusitis (principal)
CPT/HCPCS: 70486

== ENCOUNTER → 2022-05-30 | Outpatient (CLI) | payer MEDICARE, OTHER, SELFPAY ==
[2022-05-30 18:30] LABS: Free T3 2.6 pg/mL (2.18-3.98); T4 Free Direct 1.01 ng/dL (0.76-1.46); Thyroid Stim Hormone (TSH) 1.93 uIU/mL (0.358-3.74)
== END | disposition home or self-care (01) ==
LOC: LAB 16:30
PROVIDERS: PCP Internal Medicine; Referring Provider Internal Medicine Endocrinology, Diabetes & Metabolism; Visit Provider Internal Medicine Endocrinology, Diabetes & Metabolism
DX: R68.89 Other general symptoms and signs (principal)
CPT/HCPCS: 36415; 84439; 84443; 84481

== ENCOUNTER → 2022-07-07 | Outpatient (CLI) | payer MEDICARE, OTHER, SELFPAY | END | disposition home or self-care (01) | PROVIDERS: PCP Internal Medicine; Referring Provider Internal Medicine Endocrinology, Diabetes & Metabolism; Visit Provider Internal Medicine Endocrinology, Diabetes & Metabolism | DX: L68.0 Hirsutism (principal) | CPT/HCPCS: 36415; 82627; 84402; 84403; 82626 ==

== ENCOUNTER → 2023-02-24 | Outpatient (CLI) | payer MEDICARE, OTHER, SELFPAY ==
[2023-02-24 13:05] LABS: PTHIN 60.9 pg/mL (18.4-80.1)
[2023-02-24 17:44] LABS: Follicle Stimulating Hormone 76.5 mIU/mL; Luteinizing Hormone 18.4 mIU/mL; Thyroid Stim Hormone (TSH) 0.91 uIU/mL (0.358-3.74)
== END | disposition home or self-care (01) ==
PROVIDERS: PCP Internal Medicine; Referring Provider Internal Medicine Endocrinology, Diabetes & Metabolism; Visit Provider Internal Medicine Endocrinology, Diabetes & Metabolism
DX: E78.00 Pure hypercholesterolemia, unspecified (principal); E21.3 Hyperparathyroidism, unspecified; M81.0 Age-related osteoporosis without current pathological fracture
CPT/HCPCS: 36415; 82533; 83001; 83002; 83970; 84439; 84443

== ENCOUNTER → 2023-02-25 | Outpatient (CLI) | payer MEDICARE, OTHER, SELFPAY ==
--- NOTE | 2023-02-25 13:22 | MRI_ITS ---
HISTORY: pain. TECHNIQUE: Multiplanar and multisequence MR images of the cervical spine were obtained without contrast. 246 images. COMPARISON: XR 02/04/2023, MRI 07/17/2021. FINDINGS: VERTEBRAE: Vertebral body heights maintained. Mild degenerative bone marrow endplate changes. No other significant bone marrow signal abnormality. VERTEBRAL ALIGNMENT: No anterior or posterior subluxation. SPINAL CORD: Cervical cord signal and morphology within normal limits. SOFT TISSUES: No prevertebral fluid collection. INTERVERTEBRAL DISCS: Mild posterior disc bulge osteophyte complexes with uncovertebral and facet arthropathy at multiple levels. C2-3: No significant central canal stenosis or foraminal narrowing. C3-4: Minimal narrowing of the thecal sac. No significant foraminal narrowing. C4-5: No significant central canal stenosis or foraminal narrowing. C5-6: Mild central canal stenosis with mild-moderate left and moderate-severe right foraminal narrowing, similar to prior. C6-7: Mild central canal stenosis with moderate-severe left and mild-moderate right foraminal narrowing, similar to prior. C7-T1: No significant posterior disc protrusion, central canal stenosis, or foraminal narrowing. MRI/Spine Cervical (Routine) IMPRESSION: Multilevel degenerative disc disease with mild spinal canal stenosis as above. Bilateral foraminal narrowing, similar to prior. Electronically Signed: Stefany Barrett MD at 14:19 EST ,
--- OUTSIDE RECORDS SUMMARY | 2023-02-25 13:31 | XMS RPT_ITS | CCD ---
Author Name Unknown Address [id number] [place] [address] Organization [facility] Care Team Providers Care Tare Worker Name Role Phone JONNY RETANA, DR ANGEL Menjivar Primary Care Physician Lawrence RETANA MD, Argenisung Unavailable Angel Fuller MD Primary Care Provider Lawrence RETANA MD, Argenisung Unavailable Angel Fuller MD Primary Care Provider Lawrence RETANA MD, Daesung Unavailable Angel Fuller MD Primary Care Provider JONNY RETANA, DR ANGEL Menjivar Primary Care Physician Vanessa PARKER.APPLIANCE SALES ASSOCIATE, [place] Unavailable Irena White Unavailable Unavailbabita Pantoja MD, Millie Unavailable Lorenzo Montana Unavailable Mario Fabian MD, Millie Unavailable ILANA TAVAREZ MD Attending Unavailable JONNY RETANA, DR ANGEL Menjivar Primary Care Unavailable LAUREN PARKER-APPLIANCE SALES ASSOCIATE, THONG Mayen Attending Greg FULLER MD, DR ANGEL Menjivar Primary Care Unavailable LASHELL SPECIAL EVENTS DRIVER-APPLIANCE SALES ASSOCIATENAHOMI Attending Unavailab rogelio FULLER MD, DR ANGEL Menjivar Primary Care Unavailable NEVILLE SPECIAL EVENTS DRIVER-APPLIANCE SALES ASSOCIATE, SHAHLA Attending Unavail able JONNY RETANA, DR ANGEL Menjivar Primary Care Unavailable NEVILLE BARCENAS, SHAHLA Attending Unavail able JONNY RETANA, DR ANGEL Menjivar Primary Care Unavailable ILANA TAVAREZ MD Attending Unavailable JONNY RETANA, DR ANGEL Menjivar Primary Care Unavailable Mario Fabian MD, Millie Unavailable Mario Fabian MD, Millie Unavailable NAM, ANGEL K Primary Care Unavailable NAM, ANGEL K Primary Care Unavailable NAM, ANGEL K Primary Care Unavailable AL MILLIE FABIAN Referring Unavailable ROBERT WEBER Attending Unavailable NAM, ANGEL K Primary Care Unavailable NAM, ANGEL K Primary Care Unavailable NAM, ANGEL K Primary Care Unavailable NAM, ANGEL K Primary Care Unavailable NAM, ANGEL K Primary Care Unavailable DELLA PORTILLO Referring Unavailab DEYANIRA Rivera Referring Unavailable DEYANIRA MENDEZ Attending Unavailable NAM, ANGEL K Primary Care Unavailable NAM, ANGEL K Primary Care Unavailable OLGA STEINBERG Attending Unavailable NAM, ANGEL K Primary Care Unavailable PRISCA RIVERA Attending Unavail able DEYANIRA MENDEZ Referring Unavailable NAM, ANGEL K Primary Care Unavailable NAM, ANGEL K Primary Care Unavailable DELLA PORTILLO Referring Unavailab le NAM, ANGEL K Primary Care Unavailable ROBERT WEBER Attending Unavailable MASCI, ROBERT Referring Unavailable NAM, ANGEL K Primary Care Unavailable MASCArie, ROBERT Referring Unavailable NAM, ANGEL K Primary Care Unavailable MASCArie, ROBERT Referring Unavailable NAM, ANGEL K Primary Care Unavailable MASCArie, ROBERT Referring Unavailable NAM, ANGEL K Primary Care Unavailable MASCI, ROBERT Referring Unavailable NAM, ANGEL K Primary Care Unavailable DELLA PORTILLO Attending Unavailab le NAM, ANGEL K Primary Care Unavailable MASCArie, ROBERT Attending Unavailable NAM, ANGEL K Primary Care Unavailable MASCI, ROBERT Referring Unavailable NAM, ANGEL K Primary Care Unavailable MASCI, ROBERT Attending Unavailable MASCI, ROBERT Referring Unavailable Allergies Allergy Classification Reported Allergen(s) Allergy Type Date of Onset Reaction(s) Facility (20 sources) DULoxetine; Translations: [DULOXETINE] Drug Allergy 09-14-2019 Rash [facility] Medications Current Medications Medication Drug Class(es) Dates Sig (Normalized) Sig (Original) acetaminophen 500 mg oral tablet (20 sources) Start: 11-22-2020 take 1 mg by mouth every six hours Tylenol Extra Strength 500 mg oral tablet mg = tab(s), Oral, q6hr, 0 Refill(s) Start Date: 11/22/20 Status: Ordered Completed/Discontinued Medications Medication Drug Class(es) Dates Sig (Normalized) Sig (Original) Bone Broth (4 sources) Start: 08-16-2020 Bone Broth Bone Broth, 2 tablespoons, Oral, BID, 0 Refill(s), 58.4 Start Date: 08/16/20 Status: Ordered cholecalciferol, vitamin D3, (VITAMIN D3 ORAL) (20 sources) take 1 tablet by mouth two times weekly cholecalciferol, vitamin D3, (VITAMIN D3 ORAL) Take 1 tablet by mouth two times a week. With k2 0 Active Problems Active Problems Problem Classification Problem Date Documented Da te Episodic/Chronic Abdominal pain (2 sources) Epigastric pain; Translations: [Epigastric pain] Onset: 07-15-2022 Episodic Cancer of breast (20 sources) Malignant neoplasm of upper-inner quadrant of female breast; Translations: [Malignant neoplasm of upper-inner quadrant of right female breast] Onset: 03-06-2016 03-06-2016 Chronic Cancer of breast (8 sources) History of malignant neoplasm of breast; Translations: [Personal history of malignant neoplasm of breast] Onset: 02-02-2023 02-26-2021 Episodic Cardiac dysrhythmias (8 sources) Palpitations; Translations: [Tachycardia] 08-06-2020 Episodic Coagulation and hemorrhagic disorders (2 sources) Blood coagulation disorder; Translations: [Coagulation defect, unspecified] Onset: 04-01-2022 Chronic Conduction disorders (4 sources) 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 Past or Other Problems Problem Classification Problem Date Documented Date Episodic/Chronic Genitourinary symptoms and ill-defined conditions (7 sources) Urgent desire to urinate; Translations: [Urgency of urination] Onset: 06-25-2022 Episodic Nausea and vomiting (20 sources) Nausea; Translations: [Nausea] Onset: 12-07-2017 12-07-2017 Episodic Other bone disease and musculoskeletal deformities (20 sources) Bone density below reference range; Translations: [Disorder of bone density and structure, unspecified] Onset: 07-13-2018 07-13-2018 Episodic Other bone disease and musculoskeletal deformities (1 source) Other specified disorders of bone, unspecified site; Translations: [Bone pain] Onset: 04-03-2022 Episodic Other connective tissue disease (20 sources) H/O: osteoarthritis; Translations: [Personal history of other diseases of the musculoskeletal system and connective tissue] Onset: 07-13-2018 07-13-2018 Episodic Other connective tissue disease (1 source) Other specified soft tissue disorders; Translations: [Leg swelling] Onset: 04-02-2022 Episodic Other ear and sense organ disorders (20 sources) Tinnitus; Translations: [Tinnitus, unspecified ear] Onset: 09-02-2012 01-14-2016 Episodic Other female genital disorders (20 sources) Burning sensation of vulva; Translations: [Other specified conditions associated with female genital organs and menstrual cycle] Onset: 12-07-2017 12-07-2017 Episodic Other female genital disorders (1 source) Other specified noninflammatory disorders of vagina; Translations: [Vaginal dryness] Onset: 07-01-2022 Episodic Other female genital disorders (1 source) Unspecified condition associated with female genital organs and menstrual cycle; Translations: [Vaginal burning] Onset: 06-25-2022 Episodic Other non-traumatic joint disorders (2 sources) Pain in unspecified joint; Translations: [Pain in unspecified joint] Onset: 12-09-2021 Episodic Other skin disorders (1 source) Other hair color and hair shaft abnormalities; Translations: [Abnormal facial hair] Onset: 07-01-2022 Episodic Pancreatic disorders (not diabetes) (2 sources) Other acute pancreatitis with uninfected necrosis; Translations: [Other acute pancreatitis with uninfected necrosis] Onset: 03-03-2022 Episodic Residual codes; unclassified (20 sources) Early satiety; Translations: [Early satiety] Onset: 12-07-2017 12-07-2017 Episodic Residual codes; unclassified (2 sources) Estrogen receptor positive status [ER+]; Translations: [Malignant neoplasm of upper-inner quadrant of right breast in female, estrogen receptor positive (HCC)] Onset: 03-06-2016 Episodic Results Test Name Value Interpretation Reference Range Facil ity Vital Signs Date Time Vital Sign Value Performing Clinician Maris cherry 11-21-2022 12:56-0400 Body height 161.9 cm Deyanira Mendez APRN.CNP Work Phone: [facility] 11-21-2022 12:56-0400 Body temperature 97.5 [degF] Deyanira Mendez APRN.CNP Work Phone: [facility] 11-21-2022 12:56-0400 Body weight 68.49 kg Deyanira Chaenter SPECIAL EVENTS DRIVER.APPLIANCE SALES ASSOCIATE Work Phone: [facility] 11-21-2022 12:56-0400 Diastolic blood pressure 84 mm[Hg] Deyanira Mendez SPECIAL EVENTS DRIVER.APPLIANCE SALES ASSOCIATE Work Phone: [facility] 11-21-2022 12:56-0400 Heart rate 76 /min Lees Summittammy Mendez SPECIAL EVENTS DRIVER.APPLIANCE SALES ASSOCIATE Work Phone: [facility] 11-21-2022 12:56-0400 SaO2% (BldA) [Mass fraction] 99 % Deyanira Chaenter SPECIAL EVENTS DRIVER.APPLIANCE SALES ASSOCIATE Work Phone: [facility] 11-21-2022 12:56-0400 Systolic blood pressure 146 mm[Hg] [place] Summittammy ChaMendez SPECIAL EVENTS DRIVER.APPLIANCE SALES ASSOCIATE Work Phone: [facility] 07-01-2022 15:03-0400 Body weight 68.04 kg Prisca Benavides MD Work Phone: [facility] 07-01-2022 15:03-0400 Diastolic blood pressure 60 mm[Hg] Prisca Benavides MD Work Phone: [facility] 07-01-2022 15:03-0400 Systolic blood pressure 124 mm[Hg] Prisca Benavides MD Work Phone: [facility] 06-25-2022 10:19-0400 Body weight 68.04 kg Olga Steinberg SPECIAL EVENTS DRIVER.CNM Work Phone: [facility] 06-25-2022 10:19-0400 Diastolic blood pressure 70 mm[Hg] Olga Rennerts SPECIAL EVENTS DRIVER.CNM Work Phone: [facility] 06-25-2022 10:19-0400 Systolic blood pressure 124 mm[Hg] Olga Steinberg SPECIAL EVENTS DRIVER.CNM Work Phone: [facility] 05-07-2022 14:09-0400 Body temperature 96.8 [degF] Robert Weber DO Work Phone: [facility] 05-07-2022 14:09-0400 Diastolic blood pressure 75 mm[Hg] Robert Masci DO Work Phone: [facility] 05-07-2022 14:09-0400 Heart rate 68 /min Robert Masci DO Work Phone: [facility] 05-07-2022 14:09-0400 Systolic blood pressure 160 mm[Hg] Robert Masci DO Work Phone: [facility] 04-11-2022 15:40-0500 Body temperature 97.2 [degF] Robert Masci DO Work Phone: [facility] 04-11-2022 15:40-0500 Body weight 71.22 kg Robert Masci DO Work Phone: [facility] 04-11-2022 15:40-0500 Diastolic blood pressure 82 mm[Hg] Robert Masci DO Work Phone: [facility] 04-11-2022 15:40-0500 Heart rate 76 /min Robert Masci DO Work Phone: [facility] 04-11-2022 15:40-0500 SaO2% (BldA) [Mass fraction] 99 % Robert Masci DO Work Phone: [facility] 04-11-2022 15:40-0500 Systolic blood pressure 148 mm[Hg] Robert Masci DO Work Phone: [facility] 04-01-2022 14:36-0500 Body height 163 cm Robert Masci DO Work Phone: [facility] 04-01-2022 14:36-0500 Body temperature 97.9 [degF] Robert Masci DO Work Phone: [facility] 04-01-2022 14:36-0500 Body weight 71.44 kg Robert Masci DO Work Phone: [facility] 04-01-2022 14:36-0500 Diastolic blood pressure 86 mm[Hg] Robert Masci DO Work Phone: [facility] 04-01-2022 14:36-0500 Heart rate 87 /min Robert Masci DO Work Phone: [facility] 04-01-2022 14:36-0500 SaO2% (BldA) [Mass fraction] 99 % Robert Weber DO Work Phone: [facility] 04-01-2022 14:36-0500 Systolic blood pressure 143 mm[Hg] Robert Weber DO Work Phone: [facility] 12-26-2021 15:48-0400 Body weight 67.59 kg Andres Vasquez MD Work Phone: [facility] 12-26-2021 15:48-0400 Diastolic blood pressure 76 mm[Hg] Andres Vasquez MD Work Phone: [facility] 12-26-2021 15:48-0400 Systolic blood pressure 128 mm[Hg] Andres Vasquez MD Work Phone: [facility] 07-30-2021 14:13-0400 Body height 163.8 cm Deyanira Mendez SPECIAL EVENTS DRIVER.APPLIANCE SALES ASSOCIATE Work Phone: [facility] 07-30-2021 14:13-0400 Body temperature 98.1 [degF] Deyanira Mendez SPECIAL EVENTS DRIVER.APPLIANCE SALES ASSOCIATE Work Phone: [facility] 07-30-2021 14:13-0400 Body weight 65.09 kg [place] Mendez SPECIAL EVENTS DRIVER.APPLIANCE SALES ASSOCIATE Work Phone: [facility] 07-30-2021 14:13-0400 Diastolic blood pressure 80 mm[Hg] Deyanira Mendez SPECIAL EVENTS DRIVER.APPLIANCE SALES ASSOCIATE Work Phone: [facility] 07-30-2021 14:13-0400 Heart rate 90 /min Deyanira Mendez SPECIAL EVENTS DRIVER.APPLIANCE SALES ASSOCIATE Work Phone: [facility] 07-30-2021 14:13-0400 SaO2% (BldA) [Mass fraction] 97 % Deyanira Mendez SPECIAL EVENTS DRIVER.APPLIANCE SALES ASSOCIATE Work Phone: [facility] 07-30-2021 14:13-0400 Systolic blood pressure 128 mm[Hg] Deyanira Mendez SPECIAL EVENTS DRIVER.APPLIANCE SALES ASSOCIATE Work Phone: [facility] 07-12-2021 18:11-0400 Body temperature 97.59 [degF] Adriana Vasquez APRN.APPLIANCE SALES ASSOCIATE Work Phone: [facility] 07-12-2021 18:11-0400 Body weight 66.04 kg Adriana Vasquez APRN.APPLIANCE SALES ASSOCIATE Work Phone: [facility] 07-12-2021 18:11-0400 Diastolic blood pressure 92 mm[Hg] Adriana Vasquez APRN.APPLIANCE SALES ASSOCIATE Work Phone: [facility] 07-12-2021 18:11-0400 Heart rate 87 /min Adriana Vasquez APRN.APPLIANCE SALES ASSOCIATE Work Phone: [facility] 07-12-2021 18:11-0400 Respiratory rate 20 /min Adriana Vasquez APRN.APPLIANCE SALES ASSOCIATE Work Phone: [facility] 07-12-2021 18:11-0400 SaO2% (BldA) [Mass fraction] 99 % Adriana Vasquez APRN.APPLIANCE SALES ASSOCIATE Work Phone: [facility] 07-12-2021 18:11-0400 Systolic blood pressure 162 mm[Hg] Adriana Vasquez APRN.APPLIANCE SALES ASSOCIATE Work Phone: [facility] 06-01-2021 13:30-0400 Body temperature 98.4 [degF] Adriana Vasquez APRN.APPLIANCE SALES ASSOCIATE Work Phone: [facility] 06-01-2021 13:30-0400 Body weight 63.78 kg Adriana Vasquez APRN.APPLIANCE SALES ASSOCIATE Work Phone: [facility] 06-01-2021 13:30-0400 Diastolic blood pressure 90 mm[Hg] Adriana Vasquez APRN.APPLIANCE SALES ASSOCIATE Work Phone: [facility] 06-01-2021 13:30-0400 Heart rate 82 /min Adriana Vasquez APRN.APPLIANCE SALES ASSOCIATE Work Phone: [facility] 06-01-2021 13:30-0400 Respiratory rate 14 /min Adriana Vasquez APRN.APPLIANCE SALES ASSOCIATE Work Phone: [facility] 06-01-2021 13:30-0400 SaO2% (BldA) [Mass fraction] 99 % Adriana Vasquez APRN.APPLIANCE SALES ASSOCIATE Work Phone: [facility] 06-01-2021 13:30-0400 Systolic blood pressure 130 mm[Hg] Adriana Vasquez APRN.APPLIANCE SALES ASSOCIATE Work Phone: [facility] Encounters Encounter Date Encounter Type Care Provider Facility Start: 02-02-2023 End: 02-02-2023 ambulatory [facility] Facility:[facility] Start: 02-02-2023 End: 02-02-2023 Subsequent hospital visit by physician Screen Mammo [facility] Mammogram Procedures Date Procedure Procedure Detail Performing Clinician Start: 11-17-2022 Lipid 1996 panel - S ariella or Plasma Deyanira Chaenter SPECIAL EVENTS DRIVER.APPLIANCE SALES ASSOCIATE Work Phone: Start: 07-01-2022 Urnls dip stick/tabl et reagent auto microscopy Prisca Benavides MD Work Phone: Start: 06-25-2022 Urnls dip stick/tabl et rgnt auto w/o microscopy Olga Steinberg SPECIAL EVENTS DRIVER.CNM Work Phone: Start: 05-07-2022 Diagnostic bone ramírez ow biopsies & aspirations Roebrt Weber DO Work Phone: Start: 04-03-2022 Bone &/joint imaging whole body Robert Weber DO Work Phone: Start: 02-25-2022 Ct thorax w/contrast material [facility] Start: 02-25-2022 Ct abdomen & pelvis w/contrast material [facility] Start: 01-31-2022 DESIREE SCREENING W MIC Goode MD Work Phone: Start: 01-31-2022 Mammography Mammograph y Coordinator Start: 01-23-2022 Us soft tissue head & neck real time imge docm [facility] Provider Start: 12-26-2021 Urnls dip stick/tabl et rgnt auto w/o microscopy Andres Vasquez MD Work Phone: Start: 06-26-2021 Ct thorax w/contrast material [facility] Start: 12-26-2020 Mammography Adriana James APPLIANCE SALES ASSOCIATE Work Phone: Start: 07-12-2018 Adult depression screening assessment Adriana Vasquez APPLIANCE SALES ASSOCIATE Work Phone: Start: 02-23-2014 Cataract extraction and insertion of intraocular lens DONG BARBOSA SPECIAL EVENTS DRIVER-COIN MACHINE SERVICER REPAIRER Plan of Treatment Date Care Activity Detail Author Start: 11-18-2027 Lipid 1996 panel - S ariella or Plasma Lipid Screening [facility] Start: 11-18-2027 Lipid panel Lipid Screening [facility] Start: 11-17-2025 Diabetes Screening Diabetes Screenin g [facility] Start: 02-25-2025 DIABETES SCREEN [facility] Start: 01-31-2023 Mammography [facility] Start: 01-31-2023 Screening for malign ant neoplasm of breast Mammogram Screening [facility] Start: 10-24-2022 Influenza vaccination C [facility] Start: 05-07-2022 End: 07-07-2022 CBC W Auto Differential panel - Blood CBC + DIFF Lab STAT Malignant neoplasm of upper-inner quadrant of right breast in female, estrogen receptor positive (HCC) Expected: 05/07/2022, Expires: 07/07/2022 [facility] Work Phone: Payers Date Payer Category Payer Medicare MEDICARE MEDICAR E A AND B [id number] 2013-Present [phone] [address] [place] [id number] Medicare [id number] 2013 Medicare MEDICARE MEDICAR E A AND B [id number] 2013-Present [phone] [place] [id number] Medicare [id number] 2013 Medicare [id number] 2013 Unknown [employer] MEDICARE SUPPLEMENT [id number] 2013-Present [phone] [address] [place] [address] Indemnity [id number] 2013 Unknown [place] [employer] MEDICARE SUPPLEMENT [id number] 2013-Present [phone] [address] [place] [address] Indemnity [id number] 2013 Unknown [id number] 1948 Unknown [id number] 1948 Unknown [id number] 1948 Unknown [id number] 1948 Unknown [id number] 1948 Unknown [id number] 1948 Unknown [id number] Social History Date Type Detail Facility Tobacco Tobacco Use: Andry. [facility] Start: 08-15-2011 End: 12-26-2021 Never smoked tobacco (finding) [facility] Start: 1950 Sex Assigned At Female A [facility] Start: 08-15-2011 End: 12-26-2021 Tobacco use and exposure Smokeless tobacco non-user [facility] Start: 06-01-2021 End: 11-21-2022 Alcohol intake Current non-drinker of alcohol (finding) [facility] Start: 05-22-2021 End: 07-30-2021 Exposure to SARS-CoV-2 (event) Not sure [facility] Work Phone: Start: 06-25-2022 End: 11-21-2022 History of Social function [facility] Start: 06-25-2022 End: 11-21-2022 Tobacco use panel [facility] Adult Depression Screening Assessment 2 [facility] Start: 11-02-2018 Gender identity Identifies as female gender (finding) [facility] Start: 07-28-2021 Sexual orientation Heterosexual (fin ding) [facility] Clinical Notes 06-01-2021 to 02-02-2023 [place] Mancilla Mammo Tech - 02/02/2023 11:30 AM ESTTelephone Encounter - Brunilda Min LPN - 12/18/2022 8:41 AM EDTTelephone Encounter - Prisca Rivera MD - 12/17/2022 5:50 PM EDT Note Date & Type Note Facility 02-02-2023 Note HNO ID: [id number] Author: [place] Mancilla Mammo Tech Service: ? Author Type: Director Of Cloud Services Type: Progress Notes Filed: 02/02/2023 11:46 AM Note Text: Radiology Service Progress Note PATIENT NAME: Kelli Monroy DATE OF SERVICE: February 02, 2023 TIME: 11:32 AM PATIENT IDENTITY VERIFICATION COMPLETED USING TWO (2) IDENTIFIERS: Name and Date of confirmed by patient verbally. FALL SCREENING: Has the patient had 2 falls in the last year or 1 fall with injury or currently using an Ambulatory Assistive Device (Walker, Cane, Wheelchair, Crutches, etc.)? No PATIENT GENDER DATA: Female. status: : No status: NO. PATIENT RELEVANT IMPLANT DATA REVIEWED: Not Applicable RADIOLOGY DEPARTMENT: Mammography PERIPHERAL IV DATA: Not applicable SIGNED BY: Gregorio Marcano February 02, 2023 11:32 AM [facility] 02-02-2023 History of Present illness Narrative Radiology Service Progress Note PATIENT NAME: Kelli Monroy DATE OF SERVICE: February 02, 2023 TIME: 11:32 AM PATIENT IDENTITY VERIFICATION COMPLETED USING TWO (2) IDENTIFIERS: Name and Date of confirmed by patient verbally. FALL SCREENING: Has the patient had 2 falls in the last year or 1 fall with injury or currently using an Ambulatory Assistive Device (Walker, Cane, Wheelchair, Crutches, etc.)? No PATIENT GENDER DATA: Female. status: : No status: NO. PATIENT RELEVANT IMPLANT DATA REVIEWED: Not Applicable RADIOLOGY DEPARTMENT: Mammography PERIPHERAL IV DATA: Not applicable SIGNED BY: Gregorio Marcano February 02, 2023 11:32 AM documented in this encounter [facility] 12-18-2022 Miscellaneous Notes Spoke with pt and below message given. All questions answered, Brunilda Min LPN If no concerns she can be seen every other year. Patient calling to see if provider still recommends she be seen for annual exams every 1-2 years? She received a reminder letter in the mail, but she thought DM told her she no longer needed them. H/o breast cancer, but she still sees Deyanira Mendez and has her yearly mammograms for that. Last annual was 01/28/21 with DM. Please advise. Nikia Clifford RN documented in this encounter [facility] 11-21-2022 Note HNO ID: [id number] Author: Deyanira Mendez APRN.LUPE Service: ? Author Type: Nurse Practitioner Type: Progress Notes Filed: 11/21/2022 2:42 PM Note Text: Chief Complaint Patient presents with: Established Patient HPI: Kelli Monroy is a 72 year old female who presents here today for follow up breast cancer. Per Dr. 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 In regards to her history of breast cancer, per Dr. Chavarria's most recent note (verified and updated by me today). Menstrual history began age 12 and patient had a complete hysterectomy at age 28 because of abnormal uterine prolapse. Patient had been on estrogen replacement therapy with Prempro until 10 years prior to breast cancer diagnosis. Patient had previous right breast biopsy in 1967. Patient was diagnosed with osteopenia in 2006, and she was started on raloxifene in 2013. She stopped raloxifene a year later because of side effects. She was also taking calcium and vitamin D supplements. Patient denied any breast masses, nipple discharge or bleeding. She has a daughter at age 35 was diagnosed with advanced breast cancer and was a BRCA carrier. She has 3 children all of whom are alive and well today. Patient also had BRCA1 and BRCA2 testing prior to surgery. She believes they were negative . Patient underwent a successful lumpectomy and sentinel lymph node biopsy of the right breast on February 11, 2016. Pathology: Right sentinel lymph node negative or tumor by JES and immunohistochemical study. Lumpectomy specimen: Invasive well-differentiated ductal carcinoma, 1 centimeter greatest dimension extending to within 1 millimeter of the medial margin. DCIS present micropapillary type. Closest margin free of tumor 1 millimeter invasive, 0.5 centimeter ductal carcinoma in situ. Pathologic stage: pT1b, pN0, Mx Estrogen receptor strongly positive (90%) Progesterone receptor positive (50%) HER-2/jose alfredo non-overexpressed + 1 by IHC Previous therapy: 1) Completed adjuvant radiation:03/17/16 to 04/14/16. 2) Arimidex after radiation stopped d/t side effects of diffuse arthritic pain. 3) Femara-stopped d/t joint pain 2016. 4) Tamoxifen--Discontinued because of vaginal irritation and dermatitis. She was subsequently diagnosed with a urinary yeast infection. She has refused further endocrine therapy for breast cancer since 2016. She was referred to Dr. Fabian, and infectious disease specialist for ongoing fatigue and fever. Symptoms have been going on about 8 to 9 months. Work-up thus far has included CT C/A/P on 02/27/2022. Diverticulosis was observed on the abdominal pelvic images. In the chest, minimal linear atelectasis or fibrosis was observed at the left base and noted to be stable when compared to previous CT in June 2021. There was apical scarring bilaterally that was stable. No pulmonary nodules were noted. No lymphadenopathy in the supraclavicular, axillary, mediastinal or hilar regions was noted. Bone and soft tissue images were noted to be unremarkable with no destructive bone lesion. There was no abdominal or pelvic adenopathy noted on the abdominal pelvic images. No splenomegaly. No bile duct dilation. Liver demonstrated no mass. Echocardiogram at [facility] 02/21/2022: Left ventricular systolic function is normal. The estimated ejection fraction is 60 %. The global longitudinal strain = -19 % (normal). Mild diffuse mitral valve thickening. The mitral papillary muscle appears thickened and/or calcified. Equivocal mitral valve prolapse. Mild (1+) mitral valve insufficiency. Mild to moderate (1-2+) eccentric tricuspid valve insufficiency. Mild (1+) eccentric pulmonic valve insufficiency. Right ventricular systolic pressure estimated to be 21 mmHg. Diastolic function is indeterminate. Has complaint of sweating under arms, low grade fevers and fatigue for about a year. Ldr Rn temperatures from 03/26 through eMacs of 99.8 on 03/29 and a Tmax of 100.3 on 03/31 at 8:30 in the morning and then 100.1 at 11 AM on 04/01. Pt. was seen by ID recently for FUO. Labs pending from that visit. All other specialist visits-work ups have been negative. No new concerns today. Appetite: Good. Wt. stable. Energy level: It's getting better. I started on B12. Denies recent illness. Resp:occ. cough, denies sob Cardiac:denies chest pain/palpitations GI:denies abd pain, n/v, moving bowels regularly :denies dysuria/hematuria Extrem:chronic back pain, denies new pain Endo:denies hot flashes Neuro:neuropathy to big toes Skin: (more content not included)... [facility] 11-21-2022 History of Present illness Narrative Chief Complaint Patient presents with: Established Patient HPI: Kelli Monroy is a 72 year old female who presents here today for follow up breast cancer. Per Dr. 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 In regards to her history of breast cancer, per Dr. Chavarria's most recent note (verified and updated by me today). Menstrual history began age 12 and patient had a complete hysterectomy at age 28 because of abnormal uterine prolapse. Patient had been on estrogen replacement therapy with Prempro until 10 years prior to breast cancer diagnosis. Patient had previous right breast biopsy in 1967. Patient was diagnosed with osteopenia in 2006, and she was started on raloxifene in 2013. She stopped raloxifene a year later because of side effects. She was also taking calcium and vitamin D supplements. Patient denied any breast masses, nipple discharge or bleeding. She has a daughter at age 35 was diagnosed with advanced breast cancer and was a BRCA carrier. She has 3 children all of whom are alive and well today. Patient also had BRCA1 and BRCA2 testing prior to surgery. She believes they were negative . Patient underwent a successful lumpectomy and sentinel lymph node biopsy of the right breast on February 11, 2016. Pathology: Right sentinel lymph node negative or tumor by H&E and immunohistochemical study. Lumpectomy specimen: Invasive well-differentiated ductal carcinoma, 1 centimeter greatest dimension extending to within 1 millimeter of the medial margin. DCIS present micropapillary type. Closest margin free of tumor 1 millimeter invasive, 0.5 centimeter ductal carcinoma in situ. Pathologic stage: pT1b, pN0, Mx Estrogen receptor strongly positive (90%) Progesterone receptor positive (50%) HER-2/jose alfredo non-overexpressed + 1 by IHC Previous therapy: 1) Completed adjuvant radiation:03/17/16 to 04/14/16. 2) Arimidex after radiation stopped d/t side effects of diffuse arthritic pain. 3) Femara-stopped d/t joint pain 2016. 4) Tamoxifen--Discontinued because of vaginal irritation and dermatitis. She was subsequently diagnosed with a urinary yeast infection. She has refused further endocrine therapy for breast cancer since 2017. She was referred to Dr. Fabian, and infectious disease specialist for ongoing fatigue and fever. Symptoms have been going on about 8 to 9 months. Work-up thus far has included CT C/A/P on 02/27/2022. Diverticulosis was observed on the abdominal pelvic images. In the chest, minimal linear atelectasis or fibrosis was observed at the left base and noted to be stable when compared to previous CT in June 2021. There was apical scarring bilaterally that was stable. No pulmonary nodules were noted. No lymphadenopathy in the supraclavicular, axillary, mediastinal or hilar regions was noted. Bone and soft tissue images were noted to be unremarkable with no destructive bone lesion. There was no abdominal or pelvic adenopathy noted on the abdominal pelvic images. No splenomegaly. No bile duct dilation. Liver demonstrated no mass. Echocardiogram at [facility] 02/21/2022: Left ventricular systolic function is normal. The estimated ejection fraction is 60 %. The global longitudinal strain = -19 % (normal). Mild diffuse mitral valve thickening. The mitral papillary muscle appears thickened and/or calcified. Equivocal mitral valve prolapse. Mild (1+) mitral valve insufficiency. Mild to moderate (1-2+) eccentric tricuspid valve insufficiency. Mild (1+) eccentric pulmonic valve insufficiency. Right ventricular systolic pressure estimated to be 21 mmHg. Diastolic function is indeterminate. Has complaint of sweating under arms, low grade fevers and fatigue for about a year. Ldr Rn temperatures from 03/26 through eMacs of 99.8 on 03/29 and a Tmax of 100.3 on 03/31 at 8:30 in the morning and then 100.1 at 11 AM on 04/01. Pt. was seen by ID recently for FUO. Labs pending from that visit. All other specialist visits-work ups have been negative. No new concerns today. Appetite: Good. Wt. stable. Energy level: It's getting better. I started on B12. Denies recent illness. Resp:occ. cough, denies sob Cardiac:denies chest pain/palpitations GI:denies abd pain, n/v, moving bowels regularly :denies dysuria/hematuria Extrem:chronic back pain, denies new pain Endo:denies hot flashes Neuro:neuropathy to big toes Skin:denies rashes Heme:denies bleeding The ROS is otherwise negative. Past medical history, appointments, medications, allergies reviewed. No changes. EXAM: BP 146/84 Pulse 76 Temp 36.4 C (97.5 F) (Temporal) Ht 161.9 cm (5' 3.75 ) Wt 68.5 kg (151 lb) SpO2 99% BMI 26.12 kg/m APPEARANCE Well appearing, alert, in no acute distress, well-hydrated, well nourished. HEART RRR with normal S1 and S2, no murmurs LUNG clear to auscultation BREAST FEMALE no mass/nodule b/l, R scar to upper LYMPH NODES No cervical lymphadenopathy, No supraclavicular lymphadenopathy, and No axillary lymphadenopathy. ABDOMEN bowel sounds normoactive, soft, non-tender EXTREMITIES No edema NEURO Awake, alert and oriented x 3, Normal gait, and No involuntary motions. SKIN Skin color, texture, turgor normal, no suspicious rashes or lesions ASSESSMENT/PLAN: 1. Personal history of malignant neoplasm of breast - ICD9: V10.3, ICD10: Z85.3 (primary diagnosis) pT1b pN0 Mx ER/AR positive, HER2 negative stage IA invasive ductal carcinoma the right breast. S/p lumpectomy and sentinel lymph node biopsy of the right breast on February 11, 2016. Completed adjuvant radiation 04/14/16. Pt. did not tolerate AI/tamoxifen-stopped prematurely. Declined further AI/Tamoxifen therapy. She has low-grade temperatures. Etiology unclear but not related to her previous breast cancer treatment. - No concerning findings on exam. - Mammogram due 2022. - Continue follow up with PCP for routine care. - Follow up in 6 months. - Pt. aware to call office with any questions/concerns. The patient indicates understanding of these issues and agrees with the plan. All documentation from previous visit of 05/21/22-Dr. Weber was copied and pasted, documentation has been reviewed and edited as necessary for today's visit. Deyanira Mendez APRN.APPLIANCE SALES ASSOCIATE documented in this encounter [facility] 11-18-2022 Note HNO ID: [id number] Author: Della Portillo MD Service: ? Author Type: Physician Type: Progress Notes Filed: 11/18/2022 4:45 PM Note Text: INFECTIOUS DISEASE CONSULT NOTE Date: November 18, 2022 Patient Name: Kelli Monroy Consultation requested by self-referral for an opinion regarding fever of unknown origin. My final recommendations will be communicated back to the requesting physician by way of shared Medical record or letter to requesting physician via US mail. HISTORY OF PRESENT ILLNESS: Ms. Monroy is a 72 year old female with a history of CAD, ER+ R breast cancer diagnosed 2017 w/ lump removal negative sentinel LN biopsy s/p radiation and was placed on anastrozole but stopped due to side effects followed by letrozole but stopped due to side effects, now off of medication, spondyloarthritis, migraine, MVP, diverticulosis, fibromyalgia and fatigue who is referred for fever and positive EBV DNA QNT. In her notes, she reported scar in her eye from previous infection due to histoplasmosis. She reports that she has a history of ocular histoplasmosis with scar formation that has been monitored for visual changes but for which she has not received treatment. Per notes by Dr. Fabian, the patient has had recurrent fever for the past 9 months sometimes associated with chills, fatigue, rhinorrhea, and sinus discomfort. Due to sinus drainage, she was prescribe 1 week of Cefdinir by Dr. Fabian on 06/11/2022. She has had CT chest/abdomen/pelvis, LE US, whole body bone PET without evidence of malignancy or infection [No areas of abnormal focal, regional or segmental osseous uptake to suggest osseous metastases; small focus of increased uptake within the R medial tibial condyle and R midfoot are likely due to advance degenerative changes; general increased uptake in the shoulder, sternoclavicular joints; wrists, feet, SI joints, and herterogenous uptake in the thoracolumbar spine most consistent with degenerative/arthritic changes.] CT sinuses 04/01/2022: Small R maxillary effusion. Echo 02/21/2022 at [facility] showed normal EF 1+MR, 1-2+ TR, 1+AR. No vegetations reported. Bone marrow biopsy on 05/07/2022: Bone marrow, aspirate smear and core biopsy, with clot section. Normocellular marrow (~30%) with trilineage hematopoiesis. Stainable iron present.no immunophenotypic evidence of involvement by a lymphoproliferative disorder or abnormal blast population. Peripheral blood smear was unremarkable. Testing from 02/25/2022 HIV: negative / HIV viral load negative Toxo IgG antibody: positive ESR 10 EBV DNA 503 CMV DNA negative Bartonella AB panel negative CMPS and CBCs were unremarkable. Syphilis negative 08/06/2022 Toxo IgM negative / Toxo IgG positive In May 2021, she went to Covid tested prior to going to her daughter's birthday constitution party - When she went to get tested, her temperature was 99.8 F and Covid was negative but she was advised to not go to the constitution party and to monitor her temperature. She has a R knee that needs to be replaced and has been getting injections for it. She had approval for surgery from her doctors prior to surgery. She went to an infectious disease in [place] and she had all of the studies done above. She reports that since then she has periodically been checking her temperature and blood pressure. This morning her temperature 101 and this is her maximum temperature for the past 6 months. She does not get brain fog, fatigue, headache, chills or sweats with these temperatures. She used to get chills but that was early on. Her current symptoms are feeling like her skin is wrapped in plastic or feels very tight. She has very dry skin. She has a dry cough at times that comes and goes. She has fatigue at baseline but this has improved - she feels that there are no activities that she could do 5 years ago that she cannot do now. She reports she has under arm sweating which is new from when she was younger. Sometimes when she swallows she has a burning sensation on the R side. She lives in [facility]. She has lived on two farms with cows and pigs. She lives in [place] in an apartment - lives alone. Drinks bottled water. She denies pets. No hot tub or pool. Denies smoking. She had cats in the past, and a dog in the past. She was for 50 years and her 6 years ago. Hobbies: used to line dance, jitter bug, but does not do that anymore due to knee pain. Denies gardening, outdoor hobbies, or travel. She has never traveled outside of the country. She went to [place]. She was born in [place]. 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 PAST MEDICAL HISTORY Diagnosis Date Breast cancer in female (HCC) 01/2016 right Diverticulosis Irregular heart beat MVP (more content not included)... [facility] 07-16-2022 Note HNO ID: [id number] Author: Della Portillo MD Service: ? Author Type: Physician Type: Progress Notes Filed: 07/16/2022 2:35 PM Note Text: Ms. Monroy is a 72 year old female with a history of CAD, breast cancer, spondyloarthritis, migraine, MVP, diverticulosis, fibromyalgia and fatigue who is referred for fever and positive EBV DNA QNT. In her notes, she reported scar in her eye from previous infection. Per notes by Dr. Fabian, the patient has had recurrent fever for the past 9 months sometimes associated with chills, fatigue, rhinorrhea, and sinus discomfort. Due to sinus drainage, she was prescribe 1 week of Cefdinir by Dr. Fabian on 06/11/2022. She has had CT chest/abdomen/pelvis, LE US, whole body bone PET without evidence of malignancy or infection. CT sinuses 04/01/2022: Small R maxillary effusion. Echo 02/21/2022 at [facility] showed normal EF 1+MR, 1-2+ TR, 1+AR. No vegetations reported. Bone marrow biopsy on 05/07/2022: Bone marrow, aspirate smear and core biopsy, with clot section. Normocellular marrow (~30%) with trilineage hematopoiesis. Stainable iron present.no immunophenotypic evidence of involvement by a lymphoproliferative disorder or abnormal blast population. Peripheral blood smear was unremarkable. Testing from 02/25/2022 HIV: negative / HIV viral load negative Toxo IgG antibody: positive ESR 10 EBV DNA 503 CMV DNA negative Bartonella AB panel negative CMPS and CBCs were unremarkable. Plan: Able to see patient for FUO however I do not believe the EBV DNA is clinically significant Della Portillo MD Infectious Disease [facility] 07-03-2022 Miscellaneous Notes Pt notified of results, all questions answered no further concerns. Brunilda Min LPN' DM pt Please let the pt know that her urine culture is negative for infection. Adelaida Brink APRN.CNP documented in this encounter [facility] 07-01-2022 Note HNO ID: [id number] Author: Prisca Benavides MD Service: ? Author Type: Physician Type: Progress Notes Filed: 07/01/2022 4:43 PM Note Text: Film Coater offered: Patient declines. Kelli Monroy is a 72 year old female who presents for problem visit dysuria and vaginal dryness for 5 year(s)., Low-grade fevers, facial hair, blood in urine. HPI: Ms. Monroy is presenting for a follow-up for urine analysis and with questions regarding urine culture length. Additionally, she would like more information regarding vaginal dryness. She currently uses coconut oil and replense. She would like something for external use as an alternative of coconut oil due to cost. She is planning a knee surgery and is trying to gain clearance given her low grade temperatures (highest 100.3). Patient reports has been to many doctors to try to figure out why she has low-grade fevers and nobody can give her an answer. Patient states she is seeing endocrinology she is concerned because she has increased facial hair. Patient reports she did have a hysterectomy with a bilateral salpingo-oophorectomy in her 30s. Patient states she was told that all of her hormone levels were normal. Patient gives a history that approximately 6 years ago she had a urine culture that was done that had to be regrown for 5 days in order to grow bacteria. Patient is requesting that her urine cultures grow for 5 days instead of 3 days. Patient states she has days of dysuria and has had samples that show blood in her urine and wonders what this would be from. Patient is concerned with all of her symptoms and cannot find an answer for what she is experiencing. Multiple questions with multiple concerns. 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 History Comments: Sexual Activity: Not Currently; No partner data on record Contraception: No contraception data on record PAST MEDICAL HISTORY Diagnosis Date Breast cancer in female (HCC) 01/2016 right Diverticulosis Irregular heart beat MVP Arrhythmia benign ventricular with PAC Osteoarthritis of multiple joints Osteoporoses Rheumatic fever as a child PAST SURGICAL HISTORY Procedure Laterality Date PAST SURGICAL HISTORY OF 1967 benign lump removed from right breast PAST SURGICAL HISTORY OF Bilateral Bilateral cataract surgery PAST SURGICAL HISTORY OF 02/2016 mass/lymph node removed of right breat VAGINAL HYSTERECTOMY UTERUS 250 GM/< Hysterectomy, vaginal posterial and anterial repair vag sling FAMILY HISTORY Problem Relation Age of Onset Heart Mother PR Osteoporosis Mother Heart Father PR Heart Sister bunddle block Hyperlipidemia Sister Hypertension Sister Heart disease Sister Hyperlipidemia Sister Heart Brother Hyperlipidemia Brother Hypertension Brother Breast Cancer Daughter Social History Tobacco Use Smoking status: Never Smokeless tobacco: Never Vaping Use Vaping Use: Never used Substance Use Topics Alcohol use: No Drug use: No Current Outpatient Medications Medication Sig nebivolol (BYSTOLIC) 2.5 mg tablet Take 2.5 mg by mouth as needed. gabapentin (NEURONTIN) 100 mg capsule Take 100 mg by mouth twice daily. rosuvastatin (CRESTOR) 5 mg tablet Take 5 mg by mouth once daily. zoledronic acid (RECLAST) 5 mg/100 mL pgbk PREMIX piggyback Zoledronic Txem-Vhpgswie-Yeelk Active 1 EACH .Route ONCE 100 February 07, 2021 11:08am onceinfuse over 20 minutes cholecalciferol, vitamin D3, (VITAMIN D3 ORAL) Take 1 tablet by mouth two times a week. With k2 acetaminophen (TYLENOL EX STR RAPID RELEASE ORAL) Take 1,000 mg by mouth twice daily as needed. OTC PRODUCT Take 2 Tablespoonsful by mouth once daily. BONE BROTH COLLAGEN No current facility-administered medications for this visit. Allergies As of Date: 07/01/2022 Allergen Noted Reaction DULOXETINE 09/14/2019 Rash Fully Assessed 06/25/2022 REVIEW OF SYSTEMS Abdomen: No bloating, early satiety, indigestion, or increased flatulence. No abdominal pain, nausea, vomiting, diarrhea, or constipation. Bladder: No dysuria, gross hematuria, urinary frequency, urinary urgency, or incontinence. Breast: No breast lumps, nipple d/c, overlying skin changes, redness or skin retraction. Expanded ROS: N/A Allergies and current medication updated:Yes EXAM: BP 124/60 Wt 150 lb (68.0kg) GENERAL: pleasant, female in no apparent distress HEENT: Normocephalic and atraumatic NECK: full range of motion DERMATOLOGY: Normal and patient took down her mask so I could see scattered hair along her jawline. NEURO: alert and oriented x3,exam grossly non-focal ASSESSMENT AND PLAN: (R31.9) Hematuria, unspecified type (primary encounter diagnosis) Comment: discussed causes Plan: URINE CULTURE, URINALYSIS, WITH MICROSCOPIC (R30.0) Dysuria (more content not included)... [facility] 07-01-2022 History of Present illness Narrative Film Coater offered: Patient declines. Kelli Monroy is a 72 year old female who presents for problem visit dysuria and vaginal dryness for 5 year(s)., Low-grade fevers, facial hair, blood in urine. HPI: Ms. Monroy is presenting for a follow-up for urine analysis and with questions regarding urine culture length. Additionally, she would like more information regarding vaginal dryness. She currently uses coconut oil and replense. She would like something for external use as an alternative of coconut oil due to cost. She is planning a knee surgery and is trying to gain clearance given her low grade temperatures (highest 100.3). Patient reports has been to many doctors to try to figure out why she has low-grade fevers and nobody can give her an answer. Patient states she is seeing endocrinology she is concerned because she has increased facial hair. Patient reports she did have a hysterectomy with a bilateral salpingo-oophorectomy in her 30s. Patient states she was told that all of her hormone levels were normal. Patient gives a history that approximately 6 years ago she had a urine culture that was done that had to be regrown for 5 days in order to grow bacteria. Patient is requesting that her urine cultures grow for 5 days instead of 3 days. Patient states she has days of dysuria and has had samples that show blood in her urine and wonders what this would be from. Patient is concerned with all of her symptoms and cannot find an answer for what she is experiencing. Multiple questions with multiple concerns. 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 History Comments: Sexual Activity: Not Currently; No partner data on record Contraception: No contraception data on record PAST MEDICAL HISTORY Diagnosis Date Breast cancer in female (HCC) 01/2016 right Diverticulosis Irregular heart beat MVP Arrhythmia benign ventricular with PAC Osteoarthritis of multiple joints Osteoporoses Rheumatic fever as a child PAST SURGICAL HISTORY Procedure Laterality Date PAST SURGICAL HISTORY OF 1967 benign lump removed from right breast PAST SURGICAL HISTORY OF Bilateral Bilateral cataract surgery PAST SURGICAL HISTORY OF 02/2016 mass/lymph node removed of right breat VAGINAL HYSTERECTOMY UTERUS 250 GM/< Hysterectomy, vaginal posterial and anterial repair vag sling FAMILY HISTORY Problem Relation Age of Onset Heart Mother PR Osteoporosis Mother Heart Father PR Heart Sister bunddle block Hyperlipidemia Sister Hypertension Sister Heart disease Sister Hyperlipidemia Sister Heart Brother Hyperlipidemia Brother Hypertension Brother Breast Cancer Daughter Social History Tobacco Use Smoking status: Never Smokeless tobacco: Never Vaping Use Vaping Use: Never used Substance Use Topics Alcohol use: No Drug use: No Current Outpatient Medications Medication Sig nebivolol (BYSTOLIC) 2.5 mg tablet Take 2.5 mg by mouth as needed. gabapentin (NEURONTIN) 100 mg capsule Take 100 mg by mouth twice daily. rosuvastatin (CRESTOR) 5 mg tablet Take 5 mg by mouth once daily. zoledronic acid (RECLAST) 5 mg/100 mL pgbk PREMIX piggyback Zoledronic Ixcl-Lnzmbtpd-Aciot Active 1 EACH .Route ONCE 100 February 07, 2021 11:08am onceinfuse over 20 minutes cholecalciferol, vitamin D3, (VITAMIN D3 ORAL) Take 1 tablet by mouth two times a week. With k2 acetaminophen (TYLENOL EX STR RAPID RELEASE ORAL) Take 1,000 mg by mouth twice daily as needed. OTC PRODUCT Take 2 Tablespoonsful by mouth once daily. BONE BROTH COLLAGEN No current facility-administered medications for this visit. Allergies As of Date: 07/01/2022 Allergen Noted Reaction DULOXETINE 09/14/2019 Rash Fully Assessed 06/25/2022 REVIEW OF SYSTEMS Abdomen: No bloating, early satiety, indigestion, or increased flatulence. No abdominal pain, nausea, vomiting, diarrhea, or constipation. Bladder: No dysuria, gross hematuria, urinary frequency, urinary urgency, or incontinence. Breast: No breast lumps, nipple d/c, overlying skin changes, redness or skin retraction. Expanded ROS: N/A Allergies and current medication updated:Yes EXAM: BP 124/60 Wt 150 lb (68.0kg) GENERAL: pleasant, female in no apparent distress HEENT: Normocephalic and atraumatic NECK: full range of motion DERMATOLOGY: Normal and patient took down her mask so I could see scattered hair along her jawline. NEURO: alert and oriented x3,exam grossly non-focal ASSESSMENT AND PLAN: (R31.9) Hematuria, unspecified type (primary encounter diagnosis) Comment: discussed causes Plan: URINE CULTURE, URINALYSIS, WITH MICROSCOPIC (R30.0) Dysuria Comment: urine culture sent Plan: pt requesting 5 day growth (N89.8) Vaginal dryness Comment: continue coconut oil and repleanse (L67.8) Abnormal facial hair Comment: follow up with endocrinology- consider adrenal? No ovaries (R50.9) Low grade fever Comment: continue work up with PCP and Hematology I spent a total of 30 minutes on the date of the service which included preparing to see the patient, [id number] patient care, completing clinical documentation, obtaining and/or reviewing separately obtained history, performing a medically appropriate examination, counseling and educating the patient/family/caregiver, and ordering medications, tests, or procedures Medical Decision Making: Medical Decision Making Level: 1 - N/A Prisca Latahm MD documented in this encounter [facility] 06-25-2022 Note HNO ID: [id number] Author: Olga Steinberg APRN.CNM Service: ? Author Type: Worm Packer Type: Progress Notes Filed: 06/25/2022 2:41 PM Note Text: Kelli Monroy is a 72 year old female who presents for vaginal burning for 2 days. Some pain with urinating. Hx of UTI's and didn't know she had therm . Stated urine has strong odor. Vaginal dryness. Breast cancer 6 years ago- estrogen positive Total hysterectomy years ago Vaginal discharge: none. Itching: Sometimes Dyspareunia: N/A Fever/chills: No Abdominal pain: No Bladder: dysuria, burning at times Bowel: No blood in stool, pain with BM, tarry stool, persistent diarrhea or constipation st medical, surgical, social history, medications and allergies reviewed and updated. OBJECTIVE: BP 124/70 Wt 150 lb (68.0kg) GENERAL: Well developed, well nourished in no apparent distress ABDOMEN: soft, non-tender, and no masses PELVIC: no vulvar lesions, atrophic changes BIMANUAL: uterus surgically absent and deferred. RECTOVAGINAL: deferred. ASSESSMENT/PLAN: 1. Dysuria - ICD9: 788.1, ICD10: R30.0 (primary diagnosis) 2. Vaginal burning - ICD9: 625.8, ICD10: N94.9 - UA- positive for blood, leukocytes - BACT/ANAID VAG GRAM STAIN - URINE CULTURE sent - Would like treatment if culture positive - Revaree vaginally for dryness Will notify patient of results and any treatment plans Olga Steinberg APRN.CNM [facility] 06-25-2022 Instructions Olga Steinberg APRN.CNM - 06/25/2022 10:45 AM EDT Non-Hormonal Vaginal Lubricants & Vaginal Moisturizers Symptoms of vaginal dryness can be managed by the regular use of vaginal moisturizing agents with supplemental use of vaginal lubricants for sexual intercourse. . Use of vaginal moisturizers and lubricants alone is effective treatment for vaginal dryness or dyspareunia (pain with intercourse) in some patients. Vaginal lubrications- Vaginal lubricants are designed to reduce friction and discomfort from dryness during sexual intercourse. The lubricant is applied inside the vagina and/or on the partner's penis or fingers just before sex. Coconut, [place], Avocado or Peanut oil- natural oils are not recommended for use with latex condoms or diaphragms as they can damage the latex Astroglide- has both water and silicone based KY Jelly- water based Just like me - Pure Romance Almost Naked Good Clean Love - Bio Nude ultra-sensitive Pjur- silicone ID Millennium- silicone Vaginal Moisturizers- Vaginal moisturizers are intended for use routinely, typically two or three days per week, not just during sexual activity. These products are typically bioadhesives. Many moisturizer products are available in pharmacies and online. Restore- DSTLDcleanRadiant CommunicationsveEco Dream Venture Replens Stan Feminease Moist Again K-Y Liquid beads Products to assist with maintaining vaginal ph IsoFresh [email or web address] BiopHresh Rephresh documented in this encounter [facility] 06-25-2022 History of Present illness Narrative Kelli Monroy is a 72 year old female who presents for vaginal burning for 2 days. Some pain with urinating. Hx of UTI's and didn't know she had therm . Stated urine has strong odor. Vaginal dryness. Breast cancer 6 years ago- estrogen positive Total hysterectomy years ago Vaginal discharge: none. Itching: Sometimes Dyspareunia: N/A Fever/chills: No Abdominal pain: No Bladder: dysuria, burning at times Bowel: No blood in stool, pain with BM, tarry stool, persistent diarrhea or constipation st medical, surgical, social history, medications and allergies reviewed and updated. OBJECTIVE: BP 124/70 Wt 150 lb (68.0kg) GENERAL: Well developed, well nourished in no apparent distress ABDOMEN: soft, non-tender, and no masses PELVIC: no vulvar lesions, atrophic changes BIMANUAL: uterus surgically absent and deferred. RECTOVAGINAL: deferred. ASSESSMENT/PLAN: 1. Dysuria - ICD9: 788.1, ICD10: R30.0 (primary diagnosis) 2. Vaginal burning - ICD9: 625.8, ICD10: N94.9 - UA- positive for blood, leukocytes - BACT/ANAID VAG GRAM STAIN - URINE CULTURE sent - Would like treatment if culture positive - Revaree vaginally for dryness Will notify patient of results and any treatment plans Olga Steinberg APRN.CNM documented in this encounter [facility] 05-22-2022 Miscellaneous Notes SOCIAL WORK DISTRESS ASSESSMENT Referral made due to:High distress Pt scored 9/10 on a recent NCCN distress thermometer questionnaire. Contact was made: By telephone call with patient Problems Addressed: Practical: N/A Family: N/A Emotional: N/A Spiritual Concerns: N/A Physical Problems: Fevers, Mobility, and Pain Patient receptive to assessment and SW inquiry of any needs or concerns. Pt reports she continues to have a low-grade fever however is relieved that her bone-marrow biopsy came back normal with no signs of cancer recurrence. She continues to report significant pain from her right knee and reports she is planning to call [facility] this afternoon to schedule a consult for a total right knee replacement. She reports she completed her NCCN questionnaire prior to her appointment with Dr. Weber yesterday and is much relieved that everything was normal. She reports she still questions why she has the fevers but is referred back to the infectious disease doctor hopefully for an answer. Pt reports her fevers and her knee pain are her only concerns at the moment. No other needs identified by pt. Pt very appreciative of SW call. Exercising: No Stress Management: No Is the patient's distress related to a change in quality of life? No Patient with current Suicidal Ideation: No MENTAL HEALTH HISTORY: No Substance Use and Treatment History: denied History of Abuse: denied History of combat/trauma: No INTERVENTION/PLAN: Monitor patient response to treatment Communicate pertinent medical/psychosocial information to Cancer Center team Provide emotional support to patient/family Continue follow up as needed Resources and Referrals: Internal: NA External: N/A Follow up appointment with SW in: PRN Assigned SW listed in Care Team tab: Yes Assessment Completed RUTH Caruso-S documented in this encounter [facility] 05-21-2022 Note HNO ID: [id number] Author: Robert Weber, DO Service: ? 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 In regards to her history of breast cancer, per Dr. Chavarria's most recent note (verified and updated by me today). Menstrual history began age 12 and patient had a complete hysterectomy at age 28 because of abnormal uterine prolapse. Patient had been on estrogen replacement therapy with Prempro until 10 years prior to breast cancer diagnosis. Patient had previous right breast biopsy in 1967. Patient was diagnosed with osteopenia in 2006, and she was started on raloxifene in 2013. She stopped raloxifene a year later because of side effects. She was also taking calcium and vitamin D supplements. Patient denied any breast masses, nipple discharge or bleeding. She has a daughter at age 35 was diagnosed with advanced breast cancer and was a BRCA carrier. She has 3 children all of whom are alive and well today. Patient also had BRCA1 and BRCA2 testing prior to surgery. She believes they were negative . Patient underwent a successful lumpectomy and sentinel lymph node biopsy of the right breast on February 11, 2016. Pathology: Right sentinel lymph node negative or tumor by JES and immunohistochemical study. Lumpectomy specimen: Invasive well-differentiated ductal carcinoma, 1 centimeter greatest dimension extending to within 1 millimeter of the medial margin. DCIS present micropapillary type. Closest margin free of tumor 1 millimeter invasive, 0.5 centimeter ductal carcinoma in situ. Pathologic stage: pT1b, pN0, Mx Estrogen receptor strongly positive (90%) Progesterone receptor positive (50%) HER-2/jose alfredo non-overexpressed + 1 by IHC Previous therapy: 1) Completed adjuvant radiation:03/17/16 to 04/14/16. 2) Arimidex after radiation stopped d/t side effects of diffuse arthritic pain. 3) Femara-stopped d/t joint pain 2016. 4) Tamoxifen--Discontinued because of vaginal irritation and dermatitis. She was subsequently diagnosed with a urinary yeast infection. She has refused further endocrine therapy for breast cancer since 2016. She was referred to Dr. Fabian, and infectious disease specialist for ongoing fatigue and fever. Symptoms have been going on about 8 to 9 months. Work-up thus far has included CT C/A/P on 02/27/2022. Diverticulosis was observed on the abdominal pelvic images. In the chest, minimal linear atelectasis or fibrosis was observed at the left base and noted to be stable when compared to previous CT in June 2021. There was apical scarring bilaterally that was stable. No pulmonary nodules were noted. No lymphadenopathy in the supraclavicular, axillary, mediastinal or hilar regions was noted. Bone and soft tissue images were noted to be unremarkable with no destructive bone lesion. There was no abdominal or pelvic adenopathy noted on the abdominal pelvic images. No splenomegaly. No bile duct dilation. Liver demonstrated no mass. Echocardiogram at [facility] 02/21/2022: Left ventricular systolic function is normal. The estimated ejection fraction is 60 %. The global longitudinal strain = -19 % (normal). Mild diffuse mitral valve thickening. The mitral papillary muscle appears thickened and/or calcified. Equivocal mitral valve prolapse. Mild (1+) mitral valve insufficiency. Mild to moderate (1-2+) eccentric tricuspid valve insufficiency. Mild (1+) eccentric pulmonic valve insufficiency. Right ventricular systolic pressure estimated to be 21 mmHg. Diastolic function is indeterminate. Has complaint of sweating under arms, low grade fevers and fatigue for about a year. Ldr Rn temperatures from 03/26 through eMacs of 99.8 on 03/29 and a Tmax of 100.3 on 03/31 at 8:30 in the morning and then 100.1 at 11 AM on 04/01. Presents for ongoing hematologic management. Interim history: No subjective change. Right knee pain same. Causes her to limp. PMH, medications and allergies personally reviewed by me today. Any changes documented in appropriate section. ROS: Constitutional: Normal appetite. Neuro: Sporadic migraines, Denies vertigo, dizziness and imbalance. CTA surgery. Can have burning across shoulders if strains neck. HEENT: No recent change in voice, vision or hearing. Resp: Daily dry cough. Denies wheeze and hemoptysis. (more content not included)... [facility] 05-07-2022 Note HNO ID: [id number] Author: Robert Weber DO Service: ? Author Type: Physician Type: Procedures Filed: 05/07/2022 2:20 PM Note Text: BEDSIDE PROCEDURE NOTE BONE MARROW BIOPSY Performed by: Robert Weber DO Authorized by: Robert Weber DO Informed Consent Consent Obtained: Written Logan Protocol A moment to CARE was completed. SIGN IN Personnel directly involved with the procedure wore the appropriate PPE. Special Equipment: Yes (OnControl biopsy system) Patient/Surrogate Stated/Verified: Patient name, Date of , Relevant allergies and Intended procedure TIME OUT Intended patient and procedure match the source document(s). Consent documented and matches the intended procedure. No relevant labs, photos, and/or imaging studies were applicable for review. Correct side/site marked and visible. No medications required for procedure. Fire risk assessed and interventions discussed. No implant(s) inserted. Pre-procedure Details: The area was prepped with povidone Iodine (Betadine) and allowed to dry. A sterile partial body drape was applied following the usual aseptic technique. Medications: Local Anesthesia (see MAR): Lidocaine 1% Procedure Details: Patient Position: Left lateral decubitus Aspiration Laterality: Unilateral Aspiration Site: Right posterior superior iliac crest Biopsy Laterality: Unilateral Biopsy Site: Right posterior sperior iliac crest . OnControl biopsy system was used. Using aseptic technique, bone marrow aspiration was performed. A touch prep was taken. Core biopsy was obtained 1.5 cm. The core biopsy was confirmed. Pressure dressing applied to Bone Marrow site(s). Hemostasis maintained. Post-procedure Details: Patient tolerated the procedure well with no immediate complications Estimated Blood Loss: Scant Specimens Sent: bone marrow analysis, DNA extraction, flow cytometry and bone marrow chromosome analysis Teaching Complete: Bone Marrow Biopsy Post-procedure teaching complete Post-procedure care was reviewed and explained. Patient instructed to communicate complaints of redness, swelling, increased or unresolved pain, bleeding chills, bruising, and/or fever. Patient verbalized understanding. SIGN OUT All specimen containers correctly labeled. No instruments, equipment or retained foreign bodies applicable. SIGNATURE: Robert Weber DO PATIENT NAME: Kelli Mornoy DATE: May 07, 2022 TIME: 2:19 PM [facility] 05-07-2022 Miscellaneous Notes Addended by: CHARLOTTE MURILLO LPN on: 05/07/2022 02:29 PM Modules accepted: Orders documented in this encounter [facility] 05-07-2022 Procedure note Associated Ord er(s): BONE MARROW BIOPSY Post-Procedure Diagnose(s): Fever, low grade BEDSIDE PROCEDURE NOTE BONE MARROW BIOPSY Performed by: Robert Weber DO Authorized by: Robert Weber DO Informed Consent Consent Obtained: Written Logan Protocol A moment to CARE was completed. SIGN IN Personnel directly involved with the procedure wore the appropriate PPE. Special Equipment: Yes (OnControl biopsy system) Patient/Surrogate Stated/Verified: Patient name, Date of , Relevant allergies and Intended procedure TIME OUT Intended patient and procedure match the source document(s). Consent documented and matches the intended procedure. No relevant labs, photos, and/or imaging studies were applicable for review. Correct side/site marked and visible. No medications required for procedure. Fire risk assessed and interventions discussed. No implant(s) inserted. Pre-procedure Details: The area was prepped with povidone Iodine (Betadine) and allowed to dry. A sterile partial body drape was applied following the usual aseptic technique. Medications: Local Anesthesia (see MAR): Lidocaine 1% Procedure Details: Patient Position: Left lateral decubitus Aspiration Laterality: Unilateral Aspiration Site: Right posterior superior iliac crest Biopsy Laterality: Unilateral Biopsy Site: Right posterior sperior iliac crest . OnCZalicus biopsy system was used. Using aseptic technique, bone marrow aspiration was performed. A touch prep was taken. Core biopsy was obtained 1.5 cm. The core biopsy was confirmed. Pressure dressing applied to Bone Marrow site(s). Hemostasis maintained. Post-procedure Details: Patient tolerated the procedure well with no immediate complications Estimated Blood Loss: Scant Specimens Sent: bone marrow analysis, DNA extraction, flow cytometry and bone marrow chromosome analysis Teaching Complete: Bone Marrow Biopsy Post-procedure teaching complete Post-procedure care was reviewed and explained. Patient instructed to communicate complaints of redness, swelling, increased or unresolved pain, bleeding chills, bruising, and/or fever. Patient verbalized understanding. SIGN OUT All specimen containers correctly labeled. No instruments, equipment or retained foreign bodies applicable. SIGNATURE: Robert Weber DO PATIENT NAME: Kelli Monroy DATE: May 07, 2022 TIME: 2:19 PM documented in this encounter [facility] 05-07-2022 Nurse Note Pt discharged to home with niece [place] after BMBX with dry sterile dressing in place. No drainage noted. Post-procedure care reviewed with patient. Pt to call with any complaints of redness, swelling, increased or unresolved pain, bleeding, chills, bruising, and/or fever. Pt verbalized understanding. Charlotte Murillo LPN documented in this encounter [facility] 04-21-2022 Miscellaneous Notes reviewed percocet and ativan prior to procedure. Discussed what to wear. Charlotte Murillo LPN Please call patient in regards to medication questions prior to bone biopsy on 05/07 documented in this encounter [facility] 04-14-2022 Miscellaneous Notes Spoke with patient and scheduled for first available on 05/07/22. Patient asked to be on a wait list for BMBX. Est Complex OV scheduled. Kari Hawthorne Patient called requesting April 23. Please advise if avail and inform patient. Summary: AVS 04/11/22 Check out comments: Bone marrow biopsy next available time that works for her. CBC that day. OV 1-2 weeks after biopsy. Pt stated she would call in to schedule once she speaks with her daughter to find out when would be a good time. When pt calls in please warm transfer her to [facility] Pss Thank you! documented in this encounter [facility] 04-11-2022 Note HNO ID: [id number] Author: Robert Weber, DO Service: ? Author Type: Physician Type: Progress Notes Filed: 04/11/2022 5:14 PM Note Text: Oncologic problem(s): 1) pT1b pN0 Mx ER/AR positive, HER2 negative stage IA invasive ductal carcinoma the right breast. 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 In regards to her history of breast cancer, per Dr. Chavarria's most recent note (verified and updated by me today). Menstrual history began age 12 and patient had a complete hysterectomy at age 28 because of abnormal uterine prolapse. Patient had been on estrogen replacement therapy with Prempro until 10 years prior to breast cancer diagnosis. Patient had previous right breast biopsy in 1967. Patient was diagnosed with osteopenia in 2006, and she was started on raloxifene in 2013. She stopped raloxifene a year later because of side effects. She was also taking calcium and vitamin D supplements. Patient denied any breast masses, nipple discharge or bleeding. She has a daughter at age 35 was diagnosed with advanced breast cancer and was a BRCA carrier. She has 3 children all of whom are alive and well today. Patient also had BRCA1 and BRCA2 testing prior to surgery. She believes they were negative . Patient underwent a successful lumpectomy and sentinel lymph node biopsy of the right breast on February 11, 2016. Pathology: Right sentinel lymph node negative or tumor by JES and immunohistochemical study. Lumpectomy specimen: Invasive well-differentiated ductal carcinoma, 1 centimeter greatest dimension extending to within 1 millimeter of the medial margin. DCIS present micropapillary type. Closest margin free of tumor 1 millimeter invasive, 0.5 centimeter ductal carcinoma in situ. Pathologic stage: pT1b, pN0, Mx Estrogen receptor strongly positive (90%) Progesterone receptor positive (50%) HER-2/jose alfredo non-overexpressed + 1 by IHC Previous therapy: 1) Completed adjuvant radiation:03/17/16 to 04/14/16. 2) Arimidex after radiation stopped d/t side effects of diffuse arthritic pain. 3) Femara-stopped d/t joint pain 2016. 4) Tamoxifen--Discontinued because of vaginal irritation and dermatitis. She was subsequently diagnosed with a urinary yeast infection. She has refused further endocrine therapy for breast cancer since 2016. She was referred to Dr. Fabian, and infectious disease specialist for ongoing fatigue and fever. Symptoms have been going on about 8 to 9 months. Work-up thus far has included CT C/A/P on 02/27/2022. Diverticulosis was observed on the abdominal pelvic images. In the chest, minimal linear atelectasis or fibrosis was observed at the left base and noted to be stable when compared to previous CT in June 2021. There was apical scarring bilaterally that was stable. No pulmonary nodules were noted. No lymphadenopathy in the supraclavicular, axillary, mediastinal or hilar regions was noted. Bone and soft tissue images were noted to be unremarkable with no destructive bone lesion. There was no abdominal or pelvic adenopathy noted on the abdominal pelvic images. No splenomegaly. No bile duct dilation. Liver demonstrated no mass. Echocardiogram at [facility] 02/21/2022: Left ventricular systolic function is normal. The estimated ejection fraction is 60 %. The global longitudinal strain = -19 % (normal). Mild diffuse mitral valve thickening. The mitral papillary muscle appears thickened and/or calcified. Equivocal mitral valve prolapse. Mild (1+) mitral valve insufficiency. Mild to moderate (1-2+) eccentric tricuspid valve insufficiency. Mild (1+) eccentric pulmonic valve insufficiency. Right ventricular systolic pressure estimated to be 21 mmHg. Diastolic function is indeterminate. Has complaint of sweating under arms, low grade fevers and fatigue for about a year. Ldr Rn temperatures from 03/26 through eMacs of 99.8 on 03/29 and a Tmax of 100.3 on 03/31 at 8:30 in the morning and then 100.1 at 11 AM on 04/01. Presents for ongoing hematologic management. Interim history: She is continued had low-grade temps. Most are in the 99-100 range. She still has underarm sweating which is unusual for her. She brought to my attention today that she would like to proceed with right knee replacement. PMH, medications and allergies personally reviewed by me today. Any changes documented in appropriate section. ROS: Constitutional: Normal appetite. Neuro: Sporadic migraines, Denies vertigo, dizziness and imbalance. Recent CTA asuncion (more content not included)... [facility] [facility] [place] 04-[facility] History of Present illness Narrative Oncologic problem(s): 1) pT1b pN0 Mx ER/AR positive, HER2 negative stage IA invasive ductal carcinoma the right breast. 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 In regards to her history of breast cancer, per Dr. Chavarria's most recent note (verified and updated by me today). Menstrual history began age 12 and patient had a complete hysterectomy at age 28 because of abnormal uterine prolapse. Patient had been on estrogen replacement therapy with Prempro until 10 years prior to breast cancer diagnosis. Patient had previous right breast biopsy in 1967. Patient was diagnosed with osteopenia in 2006, and she was started on raloxifene in 2013. She stopped raloxifene a year later because of side effects. She was also taking calcium and vitamin D supplements. Patient denied any breast masses, nipple discharge or bleeding. She has a daughter at age 35 was diagnosed with advanced breast cancer and was a BRCA carrier. She has 3 children all of whom are alive and well today. Patient also had BRCA1 and BRCA2 testing prior to surgery. She believes they were negative . Patient underwent a successful lumpectomy and sentinel lymph node biopsy of the right breast on February 11, 2016. Pathology: Right sentinel lymph node negative or tumor by H&E and immunohistochemical study. Lumpectomy specimen: Invasive well-differentiated ductal carcinoma, 1 centimeter greatest dimension extending to within 1 millimeter of the medial margin. DCIS present micropapillary type. Closest margin free of tumor 1 millimeter invasive, 0.5 centimeter ductal carcinoma in situ. Pathologic stage: pT1b, pN0, Mx Estrogen receptor strongly positive (90%) Progesterone receptor positive (50%) HER-2/jose alfredo non-overexpressed + 1 by IHC Previous therapy: 1) Completed adjuvant radiation:03/17/16 to 04/14/16. 2) Arimidex after radiation stopped d/t side effects of diffuse arthritic pain. 3) Femara-stopped d/t joint pain 2016. 4) Tamoxifen--Discontinued because of vaginal irritation and dermatitis. She was subsequently diagnosed with a urinary yeast infection. She has refused further endocrine therapy for breast cancer since 2016. She was referred to Dr. Fabian, and infectious disease specialist for ongoing fatigue and fever. Symptoms have been going on about 8 to 9 months. Work-up thus far has included CT C/A/P on 02/27/2022. Diverticulosis was observed on the abdominal pelvic images. In the chest, minimal linear atelectasis or fibrosis was observed at the left base and noted to be stable when compared to previous CT in June 2021. There was apical scarring bilaterally that was stable. No pulmonary nodules were noted. No lymphadenopathy in the supraclavicular, axillary, mediastinal or hilar regions was noted. Bone and soft tissue images were noted to be unremarkable with no destructive bone lesion. There was no abdominal or pelvic adenopathy noted on the abdominal pelvic images. No splenomegaly. No bile duct dilation. Liver demonstrated no mass. Echocardiogram at [facility] 02/21/2022: Left ventricular systolic function is normal. The estimated ejection fraction is 60 %. The global longitudinal strain = -19 % (normal). Mild diffuse mitral valve thickening. The mitral papillary muscle appears thickened and/or calcified. Equivocal mitral valve prolapse. Mild (1+) mitral valve insufficiency. Mild to moderate (1-2+) eccentric tricuspid valve insufficiency. Mild (1+) eccentric pulmonic valve insufficiency. Right ventricular systolic pressure estimated to be 21 mmHg. Diastolic function is indeterminate. Has complaint of sweating under arms, low grade fevers and fatigue for about a year. Ldr Rn temperatures from 03/26 through eMacs of 99.8 on 03/29 and a Tmax of 100.3 on 03/31 at 8:30 in the morning and then 100.1 at 11 AM on 04/01. Presents for ongoing hematologic management. Interim history: She is continued had low-grade temps. Most are in the 99-100 range. She still has underarm sweating which is unusual for her. She brought to my attention today that she would like to proceed with right knee replacement. PMH, medications and allergies personally reviewed by me today. Any changes documented in appropriate section. ROS: Constitutional: Normal appetite. Neuro: Sporadic migraines, Denies vertigo, dizziness and imbalance. Recent CTA surgery. Can have burning across shoulders if strains neck. HEENT: No recent change in voice, vision or hearing. Frequent sinus drainage. No nosebleeds, but nasal mucous often green and blood tinged. Has CT sinuses scheduled at [facility]. Resp: Daily dry cough. Denies wheeze and hemoptysis. Denies shortness of breath at rest. Denies BRAVO. CVS: Denies exertional chest pain, PND, orthopnea and LE edema. Occasional palpitations. She has a history of lower extremity varicosities for which she uses compression stockings. No history of DVT. GI: Denies dysphagia and odynophagia. Denies reflux, n/v, change in bowel habits. Stools formed. No black or bloody stools. Denies abdominal pain. : Denies dysuria or gross hematuria. No symptoms of bladder outlet obstruction. Denies incontinence. Endo: Denies hot flashes. Denies polyuria and polydipsia. Denies heat and cold intolerance. Musculoskeletal: Right knee pain--has been told bone on bone and needs TKR. Chronic back pain. Has received epidural injections. On gabapentin for back pain--several months. Derm: Denies current rash. Denies jaundice and diffuse pruritis. Heme: Denies unusual bleeding and unexplained bruising. Psych: Normal mood. PHYSICAL EXAM: Vitals: Blood pressure 148/82, pulse 76, temperature 36.2 C (97.2 F), weight 71.2 kg (157 lb), SpO2 99 %. Well-appearing and in no acute distress. EYES: Sclerae are anicteric bilaterally. ENT: Oral mucosa is unremarkable. There is no sign of thrush or mucositis. NECK: Diffuse symmetric enlargement of the thyroid. LYMPHATIC: There is no palpable cervical, supraclavicular, axillary or inguinal adenopathy. RESPIRATORY: Inspiratory breath sounds are of normal intensity in all velásquez. No rales, wheezes or rhonchi. CARDIOVASCULAR: Rhythm is regular. Mild to moderate lower extremity varicosities. BREAST: Nurse acted as ladle liner helper. Fine transverse scar central upper right breast. No concerning mass or nodule. Left breast exam no concerning mass or nodule. ABDOMEN: The abdomen is nondistended. No organomegaly. No tenderness. Extremities: She has mild symmetric swelling without pitting edema. SKIN: No jaundice or rash. No petechiae. NEUROLOGIC: circus hand II-XII are grossly intact. LABORATORY DATA: Component Latest Ref Rng & Units 04/01/2022 WBC 3.70 - 11.00 k/uL 6.92 RBC 3.90 - 5.20 m/uL 3.92 Hemoglobin 11.5 - 15.5 g/dL 12.4 Hematocrit 36.0 - 46.0 % 36.5 MCV 80.0 - 100.0 fL 93.1 MCH 26.0 - 34.0 pg 31.6 MCHC 30.5 - 36.0 g/dL 34.0 RDW-CV 11.5 - 15.0 % 12.3 Platelet Count 150 - 400 k/uL 293 MPV 9.0 - 12.7 fL 8.6 (L) Neut% % 68.4 Abs Neut (ANC) 1.45 - 7.50 k/uL 4.73 Lymph% % 18.2 Abs Lymph 1.00 - 4.00 k/uL 1.26 Story% % 12.0 Abs Story <0.87 k/uL 0.83 Eosin% % 0.7 Abs Eosin <0.46 k/uL 0.05 Baso% % 0.4 Abs Baso <0.11 k/uL 0.03 Immature Gran % % 0.3 IMMATURE GRANS (ABS) <0.10 k/uL <0.03 NRBC /100 WBC 0.0 Absolute nRBC <0.01 k/uL <0.01 DTYPE Auto Component Latest Ref Rng & Units 02/25/2022 Protein, Total 6.3 - 8.0 g/dL 6.5 Albumin 3.9 - 4.9 g/dL 4.3 Calcium 8.5 - 10.2 mg/dL 9.1 Bilirubin, Total 0.2 - 1.3 mg/dL 0.3 Alkaline Phosphatase 34 - 123 U/L 73 AST 13 - 35 U/L 27 ALT 7 - 38 U/L 22 Glucose 74 - 99 mg/dL 94 BUN 7 - 21 mg/dL 8 Creatinine 0.58 - 0.96 mg/dL 0.48 (L) Sodium 136 - 144 mmol/L 132 (L) Potassium 3.7 - 5.1 mmol/L 4.2 Chloride 97 - 105 mmol/L 97 CO2 22 - 30 mmol/L 26 Anion Gap 9 - 18 mmol/L 9 eGFR >=60 mL/min/1.73m 100 Bartonella henselae Ab, IgG <1:64 Bartonella henselae Ab, IgM < 1:16 Bartonella miles Ab, IgG <1:64 Bartonella miles Ab, IgM < 1:16 HIV 12 Combo (Ag/Ab) Nonreactive Nonreactive HIV 1/2 Ab HIV Interpretation EBV DNA Result EBV DNA not detected. EBV DNA Detected by PCR. (A) EBV DNA (IU/mL) IU/mL 503 (H) EBV DNA (log IU/mL) LOG IU/mL 2.70 Syphilis Screen Result Nonreactive Nonreactive Syphilis Interpretation Cannot exclude recent Treponemal infection if specimen collected within 7-10 days after appearance of suspect lesions or 2-3 weeks after an exposure. Clinical correlation is required. WSR 0 - 20 mm/hr 10 Toxo IgG Qual Negative Positive (A) HIV RNA Qual HIV-1 RNA not detected by PCR. HIV-1 RNA not detected by PCR. CMV DNA CMV DNA Not Detected CMV DNA Not Detected by PCR Component Latest Ref Rng & Units 02/25/2022 HIV-2 Ab Confirmation Negative Negative Latest TSH and free T4 were normal when last checked 03/2021. I verified this through [facility] electronic record. ASSESSMENT/PLAN: (R50.9) Fever, unspecified fever cause (primary encounter diagnosis) (M79.89) Leg swelling (C50.211, Z17.0) Malignant neoplasm of upper-inner quadrant of right breast in female, estrogen receptor positive (HCC) (M89.8X9) Bone pain Assessment: -The patient is a 72-year-old female with a breast cancer history as outlined above who has been having low-grade temperatures over the last year or so. Highest recorded value was 100.7. She also has excessive axillary sweating and fatigue. -pT1b pN0 Mx ER/AR positive, HER2 negative stage IA invasive ductal carcinoma the right breast. -s/p lumpectomy and sentinel lymph node biopsy of the right breast on February 11, 2016. -Completed adjuvant radiation 04/14/16. -Pt. did not tolerate AI/tamoxifen-stopped prematurely. Declined further AI/Tamoxifen therapy. -No concerning findings on breast exam. -I reviewed the results of the ultrasound of the leg and the bone scan. No evidence of DVT or bony metastases. -She has low-grade temperatures. Etiology unclear but not related to her previous breast cancer treatment. -EBV DNA detected but doubtful that is contributing to low-grade temperature. She has no findings to suggest a lymphoproliferative disorder. -We discussed proceeding with bone marrow biopsy since she is in need of total knee replacement. That way, systemic infection can be confidently ruled out since she has had thorough testing otherwise. -I discussed the bone marrow procedure as well as the risks and alternatives. She agreed to proceed. Consent signed. Plan: -Bone marrow biopsy when schedule permits. -Rx one Percocet tablet and one 0.5 mg Ativan tablet to be taken 1 hour prior to the procedure. Instructed her she will need a carrier driver. Also advised her to avoid aspirin and NSAIDs within a week of the biopsy. She expressed an understanding of these instructions. Portions of this documentation were copied and pasted from previous office visit notes in order to provide a cohesive continuity of the history. The note has been reviewed and edited and updated as necessary. During this patient visit I have spent approximately 20 minutes out of 25 in counseling regarding above review and discussion and coordinating care. Robert Weber DO documented in this encounter [facility] 04-07-2022 Miscellaneous Notes Noted. Thank you. Robert Weber DO Patient calling to update Dr. Weber that she had her CT scan completed at [facility] 04/01/22 and the results were to be faxed to Dr. Weber's office. Pt calling to ensure that Dr. Weber's office did receive it. Pt states if it was not received, that Dr. Weber should be able to access the record through [facility]. Pt states she will be calling Dr. Mckenna's office today to get his plan for her regarding the CT results, since she may have a low-grade chronic sinusitis causing her low-grade fevers. Pt states she will call back with laida Person RN Noted. Thank you. Robert Weber DO I called and spoke to Kelli and she stated understanding of the below results. She stated that she had the CT scan at [facility] last week on 04/01/22, the same day she seen you. She stated she still hasn't heard anything from but she was able to print the CT scan report herself. She thinks the scan looks ok but she will try to call 's office tomorrow about what he has to say Patricia Warner Can let her know her blood counts are normal and the bone scan suggested no bone metastases or cancer otherwise in the bones. Ask her to contact us once she has the CT of the sinuses at [facility] and hears from Dr. Mckenna what his plan is since she may have a low-grade chronic sinusitis causing her low-grade fevers. If that is not the case, then we can consider proceeding with bone marrow biopsy. Robert Weber DO documented in this encounter [facility] 04-04-2022 Miscellaneous Notes CD/report READY FOR BUCKLE ATTACHER AT [facility] Patient called requesting disk and report of 04/03 whole body bone scan. Patient will burr picker next week. documented in this encounter [facility] 04-03-2022 Note HNO ID: [id number] Author: Valarie Marrero RT(R) Service: Nuclear Medicine Author Type: Technologist Type: Progress Notes Filed: 04/03/2022 11:06 AM Note Text: RADIOLOGY SERVICE PROGRESS NOTE SERVICE DATE: 04/03/2022 SERVICE TIME: 10:05 AM PATIENT IDENTITY VERIFICATION COMPLETED USING TWO (2) STANDARD IDENTIFIERS: Name and Date of confirmed by patient verbally FALL SCREENING: Has the patient had 2 falls in the last year or 1 fall with injury or currently using an Ambulatory Assistive Device (Walker, Cane, Wheelchair, Crutches, etc.)? No PATIENT GENDER DATA: .female : No ALLERGIES: Reviewed and unchanged MEDICATIONS REVIEWED: No PATIENT RELEVANT IMPLANT DATA REVIEWED: Not Applicable CREATININE: Creatinine Date Value Ref Range Status 02/25/2022 0.48 (L) 0.58 - 0.96 mg/dL Final 06/26/2021 0.60 0.58 - 0.96 mg/dL Final 02/11/2018 0.61 0.58 - 0.96 mg/dL Final Estimated Glomerular Filtration Rate Date Value Ref Range Status 02/25/2022 100 >=60 mL/min/1.73m? Final Comment: Estimated Glomerular Filtration Rate (eGFR) is calculated using the 2020 CKD-EPI creatinine equation. This equation utilizes serum creatinine, sex, and age as parameters. The creatinine assay has traceable calibration to isotope dilution-mass spectrometry. Refer to KDIGO guidelines for clinical interpretation. In patients with unstable renal function, e.g. those with acute kidney injury, the eGFR may not accurately reflect actual GFR. eGFR- Date Value Ref Range Status 02/11/2018 >60 Final P.O.C.T. RESULTS: N/A April 03, [address] PERFORMED: No IV SITE: Ambulatory: A peripheral IV was started in the Left antecubital site with a Angio cath: 24 gauge. POST EXAM PIV STATUS: Discontinued PROCEDURE TYPE: NM INJECT: Whole Body Bone Scan. 22.1 mCi Tc99m MDP. No other medications given.. ADMINISTRATION TIME: 10:15 PATIENT DISCHARGED TO: Ambulatory patient, left [place] department area. A Diagnostic radioactive procedure has taken place, with no further precautions necessary other than routine body substance precautions. More information regarding radiation safety can be found using this link: [email or web address] [email or web address] SIGNATURE: AURELIA Hartman PATIENT NAME: Kelli Monroy DATE: April 03, 2022 TIME: 11:05 AM PAGER/CONTACT #: [facility] [place] 04-03-2022 History of Present illness Narrative RADIOLOGY SERVICE PROGRESS NOTE SERVICE DATE: 04/03/2022 SERVICE TIME: 10:05 AM PATIENT IDENTITY VERIFICATION COMPLETED USING TWO (2) STANDARD IDENTIFIERS: Name and Date of confirmed by patient verbally FALL SCREENING: Has the patient had 2 falls in the last year or 1 fall with injury or currently using an Ambulatory Assistive Device (Walker, Cane, Wheelchair, Crutches, etc.)? No PATIENT GENDER DATA: .female : No ALLERGIES: Reviewed and unchanged MEDICATIONS REVIEWED: No PATIENT RELEVANT IMPLANT DATA REVIEWED: Not Applicable CREATININE: Creatinine Date Value Ref Range Status 02/25/2022 0.48 (L) 0.58 - 0.96 mg/dL Final 06/26/2021 0.60 0.58 - 0.96 mg/dL Final 02/11/2018 0.61 0.58 - 0.96 mg/dL Final Estimated Glomerular Filtration Rate Date Value Ref Range Status 02/25/2022 100 >=60 mL/min/1.73m Final Comment: Estimated Glomerular Filtration Rate (eGFR) is calculated using the 2020 CKD-EPI creatinine equation. This equation utilizes serum creatinine, sex, and age as parameters. The creatinine assay has traceable calibration to isotope dilution-mass spectrometry. Refer to KDIGO guidelines for clinical interpretation. In patients with unstable renal function, e.g. those with acute kidney injury, the eGFR may not accurately reflect actual GFR. eGFR- Date Value Ref Range Status 02/11/2018 >60 Final P.O.C.T. RESULTS: N/A April 03, [address] PERFORMED: No IV SITE: Ambulatory: A peripheral IV was started in the Left antecubital site with a Angio cath: 24 gauge. POST EXAM PIV STATUS: Discontinued PROCEDURE TYPE: NM INJECT: Whole Body Bone Scan. 22.1 mCi Tc99m MDP. No other medications given.. ADMINISTRATION TIME: 10:15 PATIENT DISCHARGED TO: Ambulatory patient, left [place] department area. A Diagnostic radioactive procedure has taken place, with no further precautions necessary other than routine body substance precautions. More information regarding radiation safety can be found using this link: [email or web address] %[email or web address] SIGNATURE: AURELIA Hartman PATIENT NAME: Kelli Monroy DATE: April 03, 2022 TIME: 11:05 AM PAGER/CONTACT #: documented in this encounter [facility] 04-02-2022 Miscellaneous Notes Pt notified. Can let her know the ultrasound of her legs showed no evidence of blood clots. Robert Weber DO documented in this encounter [facility] 04-01-2022 Note HNO ID: [id number] Author: Robert Weber DO Service: ? Author Type: Physician Type: Progress Notes Filed: 04/01/2022 4:13 PM Note Text: Oncologic problem(s): 1) pT1b pN0 Mx ER/AR positive, HER2 negative stage IA invasive ductal carcinoma the right breast. 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 In regards to her history of breast cancer, per Dr. Chavarria's most recent note (verified and updated by me today). Menstrual history began age 12 and patient had a complete hysterectomy at age 28 because of abnormal uterine prolapse. Patient had been on estrogen replacement therapy with Prempro until 10 years prior to breast cancer diagnosis. Patient had previous right breast biopsy in 1967. Patient was diagnosed with osteopenia in 2006, and she was started on raloxifene in 2013. She stopped raloxifene a year later because of side effects. She was also taking calcium and vitamin D supplements. Patient denied any breast masses, nipple discharge or bleeding. She has a daughter at age 35 was diagnosed with advanced breast cancer and was a BRCA carrier. She has 3 children all of whom are alive and well today. Patient also had BRCA1 and BRCA2 testing prior to surgery. She believes they were negative . Patient underwent a successful lumpectomy and sentinel lymph node biopsy of the right breast on February 11, 2016. Pathology: Right sentinel lymph node negative or tumor by JES and immunohistochemical study. Lumpectomy specimen: Invasive well-differentiated ductal carcinoma, 1 centimeter greatest dimension extending to within 1 millimeter of the medial margin. DCIS present micropapillary type. Closest margin free of tumor 1 millimeter invasive, 0.5 centimeter ductal carcinoma in situ. Pathologic stage: pT1b, pN0, Mx Estrogen receptor strongly positive (90%) Progesterone receptor positive (50%) HER-2/jose alfredo non-overexpressed + 1 by IHC Previous therapy: 1) Completed adjuvant radiation:03/17/16 to 04/14/16. 2) Arimidex after radiation stopped d/t side effects of diffuse arthritic pain. 3) Femara-stopped d/t joint pain 2016. 4) Tamoxifen--Discontinued because of vaginal irritation and dermatitis. She was subsequently diagnosed with a urinary yeast infection. She has refused further endocrine therapy for breast cancer since 2016. She was referred to Dr. Fabian, and infectious disease specialist for ongoing fatigue and fever. Symptoms have been going on about 8 to 9 months. Work-up thus far has included CT C/A/P on 02/27/2022. Diverticulosis was observed on the abdominal pelvic images. In the chest, minimal linear atelectasis or fibrosis was observed at the left base and noted to be stable when compared to previous CT in June 2021. There was apical scarring bilaterally that was stable. No pulmonary nodules were noted. No lymphadenopathy in the supraclavicular, axillary, mediastinal or hilar regions was noted. Bone and soft tissue images were noted to be unremarkable with no destructive bone lesion. There was no abdominal or pelvic adenopathy noted on the abdominal pelvic images. No splenomegaly. No bile duct dilation. Liver demonstrated no mass. Echocardiogram at [facility] 02/21/2022: Left ventricular systolic function is normal. The estimated ejection fraction is 60 %. The global longitudinal strain = -19 % (normal). Mild diffuse mitral valve thickening. The mitral papillary muscle appears thickened and/or calcified. Equivocal mitral valve prolapse. Mild (1+) mitral valve insufficiency. Mild to moderate (1-2+) eccentric tricuspid valve insufficiency. Mild (1+) eccentric pulmonic valve insufficiency. Right ventricular systolic pressure estimated to be 21 mmHg. Diastolic function is indeterminate. Has complaint of sweating under arms, low grade fevers and fatigue for about a year. Ldr Rn temperatures from 03/26 through eMacs of 99.8 on 03/29 and a Tmax of 100.3 on 03/31 at 8:30 in the morning and then 100.1 at 11 AM on 04/01. PMH, medications and allergies personally reviewed by me today. Any changes documented in appropriate section. ROS: Constitutional: Normal appetite. Neuro: Sporadic migraines, Denies vertigo, dizziness and imbalance. Recent CTA surgery. Can have burning across shoulders if strains neck. HEENT: No recent change in voice, vision or hearing. Frequent sinus drainage. No nosebleeds, but nasal mucous often green and blood tinged. Has CT sinuses scheduled at [facility]. Resp: Daily dry cough. Denies wheeze and hemoptysis. Gilles (more content not included)... [facility] [place] 04-01-2022 History of Present illness Narrative Oncologic problem(s): 1) pT1b pN0 Mx ER/AR positive, HER2 negative stage IA invasive ductal carcinoma the right breast. 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 In regards to her history of breast cancer, per Dr. Chavarria's most recent note (verified and updated by me today). Menstrual history began age 12 and patient had a complete hysterectomy at age 28 because of abnormal uterine prolapse. Patient had been on estrogen replacement therapy with Prempro until years prior to breast cancer diagnosis. Patient had previous right breast biopsy in 1967. Patient was diagnosed with osteopenia in 2006, and she was started on raloxifene in 2013. She stopped raloxifene a year later because of side effects. She was also taking calcium and vitamin D supplements. Patient denied any breast masses, nipple discharge or bleeding. She has a daughter at age 35 was diagnosed with advanced breast cancer and was a BRCA carrier. She has 3 children all of whom are alive and well today. Patient also had BRCA1 and BRCA2 testing prior to surgery. She believes they were negative . Patient underwent a successful lumpectomy and sentinel lymph node biopsy of the right breast on February 11, 2016. Pathology: Right sentinel lymph node negative or tumor by H&E and immunohistochemical study. Lumpectomy specimen: Invasive well-differentiated ductal carcinoma, 1 centimeter greatest dimension extending to within 1 millimeter of the medial margin. DCIS present micropapillary type. Closest margin free of tumor 1 millimeter invasive, 0.5 centimeter ductal carcinoma in situ. Pathologic stage: pT1b, pN0, Mx Estrogen receptor strongly positive (90%) Progesterone receptor positive (50%) HER-2/jose alfredo non-overexpressed + 1 by IHC Previous therapy: 1) Completed adjuvant radiation:03/17/16 to 04/14/16. 2) Arimidex after radiation stopped d/t side effects of diffuse arthritic pain. 3) Femara-stopped d/t joint pain 2016. 4) Tamoxifen--Discontinued because of vaginal irritation and dermatitis. She was subsequently diagnosed with a urinary yeast infection. She has refused further endocrine therapy for breast cancer since 2016. She was referred to Dr. Fabian, and infectious disease specialist for ongoing fatigue and fever. Symptoms have been going on about 8 to 9 months. Work-up thus far has included CT C/A/P on 02/27/2022. Diverticulosis was observed on the abdominal pelvic images. In the chest, minimal linear atelectasis or fibrosis was observed at the left base and noted to be stable when compared to previous CT in June 2021. There was apical scarring bilaterally that was stable. No pulmonary nodules were noted. No lymphadenopathy in the supraclavicular, axillary, mediastinal or hilar regions was noted. Bone and soft tissue images were noted to be unremarkable with no destructive bone lesion. There was no abdominal or pelvic adenopathy noted on the abdominal pelvic images. No splenomegaly. No bile duct dilation. Liver demonstrated no mass. Echocardiogram at [facility] 02/21/2022: Left ventricular systolic function is normal. The estimated ejection fraction is 60 %. The global longitudinal strain = -19 % (normal). Mild diffuse mitral valve thickening. The mitral papillary muscle appears thickened and/or calcified. Equivocal mitral valve prolapse. Mild (1+) mitral valve insufficiency. Mild to moderate (1-2+) eccentric tricuspid valve insufficiency. Mild (1+) eccentric pulmonic valve insufficiency. Right ventricular systolic pressure estimated to be 21 mmHg. Diastolic function is indeterminate. Has complaint of sweating under arms, low grade fevers and fatigue for about a year. Ldr Rn temperatures from 03/26 through eMacs of 99.8 on 03/29 and a Tmax of 100.3 on 03/31 at 8:30 in the morning and then 100.1 at 11 AM on 04/01. PMH, medications and allergies personally reviewed by me today. Any changes documented in appropriate section. ROS: Constitutional: Normal appetite. Neuro: Sporadic migraines, Denies vertigo, dizziness and imbalance. Recent CTA surgery. Can have burning across shoulders if strains neck. HEENT: No recent change in voice, vision or hearing. Frequent sinus drainage. No nosebleeds, but nasal mucous often green and blood tinged. Has CT sinuses scheduled at [facility]. Resp: Daily dry cough. Denies wheeze and hemoptysis. Denies shortness of breath at rest. Denies BRAVO. CVS: Denies exertional chest pain, PND, orthopnea and LE edema. Occasional palpitations. She has a history of lower extremity varicosities for which she uses compression stockings. No history of DVT. GI: Denies dysphagia and odynophagia. Denies reflux, n/v, change in bowel habits. Stools formed. No black or bloody stools. Denies abdominal pain. : Denies dysuria or gross hematuria. No symptoms of bladder outlet obstruction. Denies incontinence. Endo: Denies hot flashes. Denies polyuria and polydipsia. Denies heat and cold intolerance. Musculoskeletal: Right knee pain--has been told bone on bone and needs TKR. Chronic back pain. Has received epidural injections. On gabapentin for back pain--several months. Derm: Denies current rash. Denies jaundice and diffuse pruritis. Heme: Denies unusual bleeding and unexplained bruising. Psych: Normal mood. PHYSICAL EXAM: Vitals: Blood pressure 143/86, pulse 87, temperature 36.6 C (97.9 F), height 163 cm (5' 4.17 ), weight 71.4 kg (157 lb 8 oz), SpO2 99 %. Well-appearing and in no acute distress. EYES: Sclerae are anicteric bilaterally. ENT: Oral mucosa is unremarkable. There is no sign of thrush or mucositis. NECK: Diffuse symmetric enlargement of the thyroid. LYMPHATIC: There is no palpable cervical, supraclavicular, axillary or inguinal adenopathy. RESPIRATORY: Inspiratory breath sounds are of normal intensity in all velásquez. No rales, wheezes or rhonchi. CARDIOVASCULAR: Rhythm is regular. Mild to moderate lower extremity varicosities. BREAST: Nurse acted as ladle liner helper. Fine transverse scar central upper right breast. No concerning mass or nodule. Left breast exam no concerning mass or nodule. ABDOMEN: The abdomen is nondistended. No organomegaly. No tenderness. Extremities: She has mild symmetric swelling without pitting edema. SKIN: No jaundice or rash. No petechiae. NEUROLOGIC: circus hand II-XII are grossly intact. LABORATORY DATA: Component Latest Ref Rng & Units 02/25/2022 Protein, Total 6.3 - 8.0 g/dL 6.5 Albumin 3.9 - 4.9 g/dL 4.3 Calcium 8.5 - 10.2 mg/dL 9.1 Bilirubin, Total 0.2 - 1.3 mg/dL 0.3 Alkaline Phosphatase 34 - 123 U/L 73 AST 13 - 35 U/L 27 ALT 7 - 38 U/L 22 Glucose 74 - 99 mg/dL 94 BUN 7 - 21 mg/dL 8 Creatinine 0.58 - 0.96 mg/dL 0.48 (L) Sodium 136 - 144 mmol/L 132 (L) Potassium 3.7 - 5.1 mmol/L 4.2 Chloride 97 - 105 mmol/L 97 CO2 22 - 30 mmol/L 26 Anion Gap 9 - 18 mmol/L 9 eGFR >=60 mL/min/1.73m 100 Bartonella henselae Ab, IgG <1:64 Bartonella henselae Ab, IgM < 1:16 Bartonella miles Ab, IgG <1:64 Bartonella miles Ab, IgM < 1:16 HIV 12 Combo (Ag/Ab) Nonreactive Nonreactive HIV 1/2 Ab HIV Interpretation EBV DNA Result EBV DNA not detected. EBV DNA Detected by PCR. (A) EBV DNA (IU/mL) IU/mL 503 (H) EBV DNA (log IU/mL) LOG IU/mL 2.70 Syphilis Screen Result Nonreactive Nonreactive Syphilis Interpretation Cannot exclude recent Treponemal infection if specimen collected within 7-10 days after appearance of suspect lesions or 2-3 weeks after an exposure. Clinical correlation is required. WSR 0 - 20 mm/hr 10 Toxo IgG Qual Negative Positive (A) HIV RNA Qual HIV-1 RNA not detected by PCR. HIV-1 RNA not detected by PCR. CMV DNA CMV DNA Not Detected CMV DNA Not Detected by PCR Component Latest Ref Rng & Units 02/25/2022 HIV-2 Ab Confirmation Negative Negative Latest TSH and free T4 were normal when last checked 03/2021. I verified this through [facility] electronic record. ASSESSMENT/PLAN: (R50.9) Fever, unspecified fever cause (primary encounter diagnosis) (M79.89) Leg swelling (C50.211, Z17.0) Malignant neoplasm of upper-inner quadrant of right breast in female, estrogen receptor positive (HCC) (M89.8X9) Bone pain Assessment: -The patient is a 72-year-old female with a breast cancer history as outlined above who has been having low-grade temperatures over the last year or so. Highest recorded value was 100.7. She also has excessive axillary sweating and fatigue. -pT1b pN0 Mx ER/AR positive, HER2 negative stage IA invasive ductal carcinoma the right breast. -s/p lumpectomy and sentinel lymph node biopsy of the right breast on February 11, 2016. -Completed adjuvant radiation 04/14/16. -Pt. did not tolerate AI/tamoxifen-stopped prematurely. Declined further AI/Tamoxifen therapy. -No concerning findings on breast exam. -I reviewed her lab work with her in detail. The EBV DNA is a uncertain clinical significance at this time. She does not have any lymphadenopathy or splenomegaly. She is not on any immunosuppressive drugs so would not expect any type of lymphoproliferative disorder due to EBV. Furthermore CT scans and physical exam do not suggest that. -She has no symptoms of acute sinusitis but has chronic nasal drainage with blood-tinged mucus. She is scheduled for CT of the sinuses at [facility] as ordered by her ENT physician. -I suggested prior to embarking on bone marrow biopsy we take a few other steps to check her blood counts and obtain bone scan as well as ultrasound of both legs. She is very concerned about breast cancer recurrence and given her symptoms of back pain, lower extremity swelling with varicose veins reasonable to pursue that. Plan: -CBC and coagulation times today. -Bone scan. -Ultrasound both legs. -She will be contacted with the results of the above. -Will consider bone marrow biopsy at that time. Portions of this documentation were copied and pasted from previous office visit notes in order to provide a cohesive continuity of the history. The note has been reviewed and edited and updated as necessary. I spent a total of 60 minutes on the date of the service which included preparing to see the patient, [id number] patient care, completing clinical documentation, obtaining and/or reviewing separately obtained history, performing a medically appropriate examination, counseling and educating the patient/family/caregiver, ordering medications, tests, or procedures, independently interpreting results (not separately reported), communicating results to the patient/family/caregiver, and care coordination (not separately reported). Robert Weber DO documented in this encounter [facility] 03-21-2022 Miscellaneous Notes Patient called back and confirmed understanding of appointment time change. 1st attempt: MC sent to inform pt of apt time change due to providers schedule changes documented in this encounter [facility] 03-18-2022 Miscellaneous Notes Left message on voicemail that there is nothing on sans or in recent labs that would warrant a bx. Keep scheduled appt. In July. Corry Villalba LPN Noted. Deyanira Mendez APRN.LUPE Spoke with pt. She was worked up by her PCP and even had seen an Infectious disease physician. Her highest temp has been 100.7 . She stated her PCP was wondering about possibly needing a bone marrow bx. All her recent labs and scans are in our system. Has had the million dollar work up and they haven't found anything. Pt. Is ok with just waiting until her July appt., she is beginning to think she is worrying about nothing. Corry Villalba LPN Noted. Pt. needs to follow up with PCP to be worked up for fevers. We would not initiate AI's or tamoxifen again at this point (Unless a new dx). She stopped 5 years ago. Thank you. Deyanira Mendez APRN.LUPE Pt would like to discuss possible treatment again. She has had low grade fever for the last few months. No known reason for it. documented in this encounter [facility] 02-25-2022 Note HNO ID: [id number] Author: RT Karis(R) Service: ? Author Type: Director Of Cloud Services Type: Progress Notes Filed: 02/25/2022 3:40 PM Note Text: Radiology Service Progress Note DATE OF SERVICE: February 25, 2022 TIME: 3:39 PM PATIENT IDENTITY VERIFICATION COMPLETED USING TWO (2) STANDARD IDENTIFIERS: Name and Date of confirmed by patient verbally. FALL SCREENING: Has the patient had 2 falls in the last year or 1 fall with injury or currently using an Ambulatory Assistive Device (Walker, Cane, Wheelchair, Crutches, etc.)? No PATIENT GENDER DATA: Female. status: : No status: NO. PATIENT RELEVANT IMPLANT DATA REVIEWED: Yes ALLERGIES: Reviewed and unchanged CONTRAST ALLERGY: NO. EXAM: CT -CONTRAST INDUCED NEPHROPATHY RISK FACTORS: Patient age > 60 years CREATININE: Creatinine Date Value Ref Range Status 02/25/2022 0.48 (L) 0.58 - 0.96 mg/dL Final 06/26/2021 0.60 0.58 - 0.96 mg/dL Final 02/11/2018 0.61 0.58 - 0.96 mg/dL Final Estimated Glomerular Filtration Rate Date Value Ref Range Status 02/25/2022 100 >=60 mL/min/1.73m? Final Comment: Estimated Glomerular Filtration Rate (eGFR) is calculated using the 2020 CKD-EPI creatinine equation. This equation utilizes serum creatinine, sex, and age as parameters. The creatinine assay has traceable calibration to isotope dilution-mass spectrometry. Refer to KDIGO guidelines for clinical interpretation. In patients with unstable renal function, e.g. those with acute kidney injury, the eGFR may not accurately reflect actual GFR. eGFR- Date Value Ref Range Status 02/11/2018 >60 Final P.O.C.T. RESULTS: POC done: Yes, See Lab Tab February 25, 2022 TREATMENT: N/A PERIPHERAL IV DATA: Ambulatory: A peripheral IV was started in the Left antecubital site with a Angio cath: 22 gauge. RADIOLOGY DEPARTMENT: CT; Exam(s) Completed: Chest Abdomen Pelvis SIGNATURE: RT Shanna(Faheem) PATIENT NAME: Kelli Monroy DATE: February 25, 2022 TIME: 3:39 PM [facility] 02-25-2022 History of Present illness Narrative Radiology Service Progress Note DATE OF SERVICE: February 25, 2022 TIME: 3:39 PM PATIENT IDENTITY VERIFICATION COMPLETED USING TWO (2) STANDARD IDENTIFIERS: Name and Date of confirmed by patient verbally. FALL SCREENING: Has the patient had 2 falls in the last year or 1 fall with injury or currently using an Ambulatory Assistive Device (Walker, Cane, Wheelchair, Crutches, etc.)? No PATIENT GENDER DATA: Female. status: : No status: NO. PATIENT RELEVANT IMPLANT DATA REVIEWED: Yes ALLERGIES: Reviewed and unchanged CONTRAST ALLERGY: NO. EXAM: CT -CONTRAST INDUCED NEPHROPATHY RISK FACTORS: Patient age > 60 years CREATININE: Creatinine Date Value Ref Range Status 02/25/2022 0.48 (L) 0.58 - 0.96 mg/dL Final 06/26/2021 0.60 0.58 - 0.96 mg/dL Final 02/11/2018 0.61 0.58 - 0.96 mg/dL Final Estimated Glomerular Filtration Rate Date Value Ref Range Status 02/25/2022 100 >=60 mL/min/1.73m Final Comment: Estimated Glomerular Filtration Rate (eGFR) is calculated using the 2020 CKD-EPI creatinine equation. This equation utilizes serum creatinine, sex, and age as parameters. The creatinine assay has traceable calibration to isotope dilution-mass spectrometry. Refer to KDIGO guidelines for clinical interpretation. In patients with unstable renal function, e.g. those with acute kidney injury, the eGFR may not accurately reflect actual GFR. eGFR- Date Value Ref Range Status 02/11/2018 >60 Final P.O.C.T. RESULTS: POC done: Yes, See Lab Tab February 25, 2022 TREATMENT: N/A PERIPHERAL IV DATA: Ambulatory: A peripheral IV was started in the Left antecubital site with a Angio cath: 22 gauge. RADIOLOGY DEPARTMENT: CT; Exam(s) Completed: Chest Abdomen Pelvis SIGNATURE: RT Shanna(R) PATIENT NAME: Kelli Monroy DATE: February 25, 2022 TIME: 3:39 PM documented in this encounter [facility] 02-02-2022 Miscellaneous Notes February 02, 2022 PID: [id number] Kelli Monroy [address] [address] Dear Ms. Monroy, We are pleased to inform you that the results of your recent breast imaging exam on 01/31/2022 are normal. Early detection of cancer is very important. We also understand recommendations regarding breast cancer screening are controversial. Please discuss with your primary care provider which strategy is best for you and whether a mammogram is right for you. Your imaging studies and report will be kept on file at [facility] as part of your permanent medical record and are available for your continuing care. Thank you for allowing us to help in meeting your health care needs. Sincerely, Dr. Lopez Interpreting Radiologist [facility] (Normal over 40) documented in this encounter [facility] 01-31-2022 History of Present illness Narrative Radiology Service Progress Note PATIENT NAME: Kelli Monroy DATE OF SERVICE: January 31, 2022 TIME: 9:25 AM PATIENT IDENTITY VERIFICATION COMPLETED USING TWO (2) IDENTIFIERS: Name and Date of confirmed by patient verbally. FALL SCREENING: Has the patient had 2 falls in the last year or 1 fall with injury or currently using an Ambulatory Assistive Device (Walker, Cane, Wheelchair, Crutches, etc.)? No PATIENT GENDER DATA: Female. status: : No status: NO. PATIENT RELEVANT IMPLANT DATA REVIEWED: Not Applicable RADIOLOGY DEPARTMENT: Mammography PERIPHERAL IV DATA: Not applicable SIGNED BY: RT Jack(R) January 31, 2022 9:25 AM documented in this encounter [facility] 01-23-2022 History of Present illness Narrative Radiology Service Progress Note PATIENT NAME: Kelli Monroy DATE OF SERVICE: January 23, 2022 TIME: 11:05 AM PATIENT IDENTITY VERIFICATION COMPLETED USING TWO (2) IDENTIFIERS: Name and Date of confirmed by patient verbally. FALL SCREENING: Has the patient had 2 falls in the last year or 1 fall with injury or currently using an Ambulatory Assistive Device (Walker, Cane, Wheelchair, Crutches, etc.)? No PATIENT GENDER DATA: Female. status: : No status: NO. PATIENT RELEVANT IMPLANT DATA REVIEWED: Not Applicable RADIOLOGY DEPARTMENT: Ultrasound PERIPHERAL IV DATA: Not applicable SIGNED BY: Della Salazar RDMS [facility] January 23, 2022 11:05 AM documented in this encounter [facility] 12-26-2021 History of Present illness Narrative Kelli Monroy is a 71 year old female who presents for problem visit. HPI: Patient presents with urinary urgency & dysuria. Denies vaginitis symptoms but she has stable vaginal dryness. 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 History Comments: Sexual Activity: Not Currently; No partner data on record Contraception: No contraception data on record PAST MEDICAL HISTORY Diagnosis Date Breast cancer in female (HCC) 01/2016 right Diverticulosis Irregular heart beat MVP Arrhythmia benign ventricular with PAC Rheumatic fever as a child PAST SURGICAL HISTORY Procedure Laterality Date PAST SURGICAL HISTORY OF 1967 benign lump removed from right breast PAST SURGICAL HISTORY OF Bilateral Bilateral cataract surgery PAST SURGICAL HISTORY OF 02/2016 mass/lymph node removed of right breat VAGINAL HYSTERECTOMY UTERUS 250 GM/< Hysterectomy, vaginal posterial and anterial repair vag sling FAMILY HISTORY Problem Relation Age of Onset Heart Mother PR Heart Father PR Heart Sister bunddle block Hyperlipidemia Sister Hypertension Sister Hyperlipidemia Sister Heart Brother Hyperlipidemia Brother Hypertension Brother Breast Cancer Daughter Social History Tobacco Use Smoking status: Never Smokeless tobacco: Never Vaping Use Vaping Use: Never used Substance Use Topics Alcohol use: No Drug use: No Current Outpatient Medications Medication Sig cholecalciferol, vitamin D3, (VITAMIN D3 ORAL) Take by mouth once daily. ibuprofen (MOTRIN) 200 mg tablet Take 200 mg by mouth every 6 hours as needed for pain. acetaminophen (TYLENOL EX STR RAPID RELEASE ORAL) Take by mouth as needed. OTC PRODUCT Bone protein OTC PRODUCT Take 2 Tablespoonsful by mouth twice daily. BONE BROTH COLLAGEN No current facility-administered medications for this visit. Allergies As of Date: 12/26/2021 Allergen Noted Reaction DULOXETINE 09/14/2019 Rash Fully Assessed 07/30/2021 Allergies and current medication updated:Yes EXAM: There were no vitals taken for this visit. GENERAL: pleasant, female in no apparent distress ASSESSMENT AND PLAN: 71yo female with urinary urgency & dysuria UA c/w UTI - rx bactrim given Patient declines pyriuium Urine culture sent Medical Decision Making: Problems: Low: 2+ self-limited or minor problems Data: Unique test(s) ordered: 2 Risk: Moderate: Drug management Medical Decision Making Level: 3 - Low Andres Vasquez MD documented in this encounter [facility] 12-26-2021 Miscellaneous Notes Spoke with pt and appt scheduled for 3:40 this afternoon. Brunilda Min LPN Patient called stating she may have a UTI. she is experiencing burning and is asking if she needs appointment or testing. Please call patient and advise. documented in this encounter [facility] 07-30-2021 History of Present illness Narrative Chief Complaint Patient presents with: Yearly Exam Breast Cancer HPI: Kelli Monroy is a 71 year old female who presents here today for follow up breast cancer. Per Dr. Chavarria's previous note: H/o postmenopausal lady with stage Ia, breast cancer. Menstrual history began age 12 and patient had a complete hysterectomy at age 28 because of abnormal uterine prolapse. Patient has been on estrogen replacement therapy with Prempro until 10 years ago. Patient had previous right breast biopsy in 1967. Patient was diagnosed with osteopenia in 2006, and she was started on raloxifene in 2013. She stopped raloxifene a year later because of side effects. She is also taking calcium and vitamin D supplements. Patient denies any breast masses, nipple discharge or bleeding. She has a daughter at age 35 was diagnosed with advanced breast cancer and was a BRCA carrier. She has 3 children all of whom are alive and well today. Patient also had BRCA1 and BRCA2 testing prior to surgery. She believes they were negative . Patient underwent a successful lumpectomy and sentinel lymph node biopsy of the right breast on February 11, 2016. She has postsurgical pain, or lymphedema. Pathology as follow: Right sentinel lymph node negative or tumor by H&E and immunohistochemical study Lumpectomy specimen: Invasive well-differentiated ductal carcinoma, 1 centimeter greatest dimension extending to within 1 millimeter of the medial margin. DCIS present micropapillary type. Closest margin free of tumor 1 millimeter invasive, 0.5 centimeter ductal carcinoma in situ. Pathologic stage: pT1b, pN0, Mx Estrogen receptor strongly positive (90%) Progesterone receptor positive (50%) HER-2/jose alfredo non-overexpressed + 1 by IHC Completed adjuvant radiation therapy for her stage IB, invasive ductal carcinoma of the right breast. RADIATION:03/17/16 to 04/14/16 She started adjuvant arimidex after radiation stopped d/t side effects of diffuse arthritic pain. Started on femara-stopped d/t joint pain 2016. Pt. stopped tamoxifen because of vaginal irritation and dermatitis. She was subsequently diagnosed with a urinary yeast infection. She has refused further endocrine therapy for breast cancer since 2017. Pt. is being followed by multiple specialists:cardiology, Ortho, derm, pain mgmt., GI. Pt. 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 Appetite: Good. Energy level: Poor. Denies fevers. Resp:denies cough or sob Cardiac:denies chest pain/palpitations GI:denies abd pain, n/v, moving bowels regularly :denies dysuria/hematuria Extrem:h/o arthritis, chronic neck/back pain, h/o fibromyalgia Endo:denies hot flashes Neuro:denies symptoms of neuropathy Skin:denies rashes Heme:denies bleeding The ROS is otherwise negative. Past medical history, appointments, medications, allergies reviewed. No changes. EXAM: BP 128/80 Pulse 90 Temp 36.7 C (98.1 F) Ht 163.8 cm (5' 4.5 ) Wt 65.1 kg (143 lb 8 oz) SpO2 97% BMI 24.25 kg/m APPEARANCE Well appearing, alert, in no acute distress, well-hydrated, well nourished. HEART RRR with normal S1 and S2, no murmurs LUNG clear to auscultation BREAST FEMALE no mass/nodule b/l LYMPH NODES No cervical lymphadenopathy, No supraclavicular lymphadenopathy and No axillary lymphadenopathy. ABDOMEN bowel sounds normoactive, soft, non-tender, non-distended, without organomegaly or palpable masses EXTREMITIES No edema NEURO Awake, alert and oriented x 3, Normal gait and No involuntary motions. SKIN Skin color, texture, turgor normal, no suspicious rashes or lesions ASSESSMENT/PLAN: 1. Malignant neoplasm of upper-inner quadrant of right breast in female, estrogen receptor positive (HCC) - ICD9: 174.2, V86.0, ICD10: C50.211, Z17.0 Stage IB, well-differentiated invasive ductal carcinoma S/p lumpectomy and sentinel lymph node biopsy of the right breast on February 11, 2016. Completed radiation 04/14/16. - No new concerning findings on exam. - Pt. did not tolerate AI/tamoxifen-stopped prematurely. Declined further AI/Tamoxifen therapy. - Mammogram per GROUP CHIEF OPERATOR. - Follow up with GROUP CHIEF OPERATOR as scheduled. - Follow up in one year. - Pt. aware to call office with any questions/concerns. The patient indicates understanding of these issues and agrees with the plan. All documentation from previous visit of 07/30/20-Dr. Chavarria was copied and pasted, documentation has been reviewed and edited as necessary for today's visit. Deyanira Mendez APRN.LUPE documented in this encounter [facility] 07-12-2021 History of Present illness Narrative Images from the original note were not included. Subjective Patient came in with complaints of possible rash on the left front mcgarry. Said she layed down to take a nap and work up with it. Denies any pain in the area. Denies itching. Said it has happened before and went away on its own. The history is provided by the patient. No die out worker was used. Rash Review of Systems Constitutional: Negative. Objective Physical Exam Constitutional: Appearance: Normal appearance. Pulmonary: Effort: Pulmonary effort is normal. Skin: General: Skin is warm. Comments: Small 3 cm area of broken capillaries. Non tender, non warm and no swelling. Neurological: Mental Status: She is alert. PAST MEDICAL HISTORY Diagnosis Date Breast cancer in female (HCC) 01/2016 right Diverticulosis Irregular heart beat MVP Arrhythmia benign ventricular with PAC Rheumatic fever as a child PAST SURGICAL HISTORY Procedure Laterality Date PAST SURGICAL HISTORY OF 1967 benign lump removed from right breast PAST SURGICAL HISTORY OF Bilateral Bilateral cataract surgery PAST SURGICAL HISTORY OF 02/2016 mass/lymph node removed of right breat VAGINAL HYSTERECTOMY UTERUS 250 GM/< Hysterectomy, vaginal posterial and anterial repair vag sling ALLERGIES Duloxetine MEDICATIONS acetaminophen (TYLENOL EX STR RAPID RELEASE ORAL) Take by mouth as needed. multivitamin (VITAMIN DAILY ORAL) Take by mouth. Vitamin d and K OTC PRODUCT Bone protein OTC PRODUCT Take 2 Tablespoonsful by mouth twice daily. BONE BROTH COLLAGEN vit B complex no.12/niacin,B3, (VITAMIN B COMPLEX NO.12-NIACIN ORAL) Take by mouth. OTC PRODUCT Take 1 capsule by mouth twice daily. GUT 90-RX mv-mn/iron fum/FA/omega3,6,9#3 (WOMEN'S MULTI ORAL) Take 1 capsule by mouth three times daily. Lactobacillus acidophilus (PROBIOTIC ORAL) Take 1 capsule by mouth once daily. OTC PRODUCT Take 1 capsule by mouth twice daily. GI DR-PRO OTC PRODUCT Take 1 capsule by mouth three times daily. NERVE, BONE AND SOFT TISSUE SUPPORT OTC PRODUCT Take 2 capsules by mouth three times daily. MULTI-PHASE GI SS meloxicam (MOBIC) 7.5 mg tablet Take 7.5 mg by mouth once daily. OTC PRODUCT D3K Vitamin D and K supplement Takes 1 with dinner FAMILY HISTORY Problem Relation Age of Onset Heart Mother PR Heart Father PR Heart Sister bunddle block Hyperlipidemia Sister Hypertension Sister Hyperlipidemia Sister Heart Brother Hyperlipidemia Brother Hypertension Brother Breast Cancer Daughter Social History Tobacco Use Smoking status: Never Smoker Smokeless tobacco: Never Used Vaping Use Vaping Use: Never used Substance Use Topics Alcohol use: No Drug use: No 'ASSESSMENT/PLAN: 1. Discoloration of skin - ICD9: 709.00, ICD10: L81.9 At this time instructed to monitor area more than likely will go away on its own in a week or so. If symptoms worsen follow up with PCP. If any red flag symptoms appear go to the ER. Patient was okay with this care plan. Adriana Vasquez APRN.LUPE documented in this encounter [facility] 06-27-2021 Miscellaneous Notes [employer] message sent to patient with information. Lesley Dey RN Yes, I do recommend yearly mammograms. See PSS note. Order was already placed 01/2021. Nikia Clifford RN Pt would like to have confirmation that Dr. Benavides would like her to have a mammogram this year. She knows she is not due until January. documented in this encounter [facility] 06-26-2021 History of Present illness Narrative Radiology Service Progress Note DATE OF SERVICE: June 26, 2021 TIME: 1:31 PM PATIENT IDENTITY VERIFICATION COMPLETED USING TWO (2) STANDARD IDENTIFIERS: Name and Date of confirmed by patient verbally. FALL SCREENING: Has the patient had 2 falls in the last year or 1 fall with injury or currently using an Ambulatory Assistive Device (Walker, Cane, Wheelchair, Crutches, etc.)? No PATIENT GENDER DATA: Female. status: : No status: NO. PATIENT RELEVANT IMPLANT DATA REVIEWED: Yes ALLERGIES: Reviewed and unchanged CONTRAST ALLERGY: NO. EXAM: CT -CONTRAST INDUCED NEPHROPATHY RISK FACTORS: Patient age > 60 years CREATININE: Creatinine Date Value Ref Range Status 06/26/2021 0.60 0.58 - 0.96 mg/dL Final 02/11/2018 0.61 0.58 - 0.96 mg/dL Final 12/07/2017 0.65 0.58 - 0.96 mg/dL Final Estimated Glomerular Filtration Rate Date Value Ref Range Status 06/26/2021 95 >=60 mL/min/1.73m Final Comment: Estimated Glomerular Filtration Rate (eGFR) is calculated using the 2020 CKD-EPI creatinine equation. This equation utilizes serum creatinine, sex, and age as parameters. The creatinine assay has traceable calibration to isotope dilution-mass spectrometry. Refer to KDIGO guidelines for clinical interpretation. In patients with unstable renal function, e.g. those with acute kidney injury, the eGFR may not accurately reflect actual GFR. eGFR- Date Value Ref Range Status 02/11/2018 >60 Final P.O.C.T. RESULTS: POC done: Yes, See Lab Tab June 26, 2021 TREATMENT: N/A PERIPHERAL IV DATA: Ambulatory: A peripheral IV was started in the Left antecubital site with a Angio cath: 22 gauge. RADIOLOGY DEPARTMENT: CT; Exam(s) Completed: Chest SIGNATURE: RT Shanna(R) PATIENT NAME: Kelli Monroy DATE: June 26, 2021 TIME: 1:31 PM documented in this encounter [facility] 06-01-2021 History of Present illness Narrative CC: Patient presents with: Fever: fatigue x 2 days HPI: Kelli Monroy is a 71 year old female who presents to the office with complaint of fever for a few days. Symptoms are worsening Associated symptoms includes fatigue. Denies headache, body aches, nausea, vomiting and diarrhea. Treatments tried include nothing so far. with no relief of symptoms. Sick contacts: unknown. History of asthma, frequent episodes of bronchitis, chronic bronchitis, bronchiectasis or COPD: No Smoker: No Seasonal/environmental allergies: No The ROS is otherwise negative. The patient's pmh, medications, allergies, and past visits are reviewed. PHYSICAL EXAM: BP 130/90 Pulse 82 Temp 36.9 C (98.4 F) Resp 14 Wt 63.8 kg (140 lb 9.6 oz) SpO2 99% BMI 24.29 kg/m General appearance: alert, cooperative, pleasant, in no acute distress Head: Normocephalic Eyes: EOM's intact, conjunctiva pink and moist, no icterus, sclera white, non-injected Ears: Right ear: External ear/canal- Normal, TM - clear with good landmarks. Left ear: External ear/canal- Normal, TM - clear with good landmarks Oropharynx:moist without lesions, No erythema, exudates or tonsillar hypertrophy. Heart: Negative. RRR without obvious murmur, gallop, or rubs. No ectopy. Lungs: clear to auscultation, without rales or wheeze, good air exchange PAST MEDICAL HISTORY Diagnosis Date Breast cancer in female (HCC) 01/2016 right Diverticulosis Irregular heart beat MVP Arrhythmia benign ventricular with PAC Rheumatic fever as a child PAST SURGICAL HISTORY Procedure Laterality Date PAST SURGICAL HISTORY OF 1967 benign lump removed from right breast PAST SURGICAL HISTORY OF Bilateral Bilateral cataract surgery PAST SURGICAL HISTORY OF 02/2016 mass/lymph node removed of right breat VAGINAL HYSTERECTOMY UTERUS 250 GM/< Hysterectomy, vaginal posterial and anterial repair vag sling ALLERGIES Patient has no known allergies. MEDICATIONS acetaminophen (TYLENOL EX STR RAPID RELEASE ORAL) Take by mouth as needed. multivitamin (VITAMIN DAILY ORAL) Take by mouth. Vitamin d and K OTC PRODUCT Bone protein vit B complex no.12/niacin,B3, (VITAMIN B COMPLEX NO.12-NIACIN ORAL) Take by mouth. OTC PRODUCT Take 2 Tablespoonsful by mouth twice daily. BONE BROTH COLLAGEN OTC PRODUCT Take 1 capsule by mouth twice daily. GUT 90-RX mv-mn/iron fum/FA/omega3,6,9#3 (WOMEN'S MULTI ORAL) Take 1 capsule by mouth three times daily. Lactobacillus acidophilus (PROBIOTIC ORAL) Take 1 capsule by mouth once daily. OTC PRODUCT Take 1 capsule by mouth twice daily. GI DR-PRO OTC PRODUCT Take 1 capsule by mouth three times daily. NERVE, BONE AND SOFT TISSUE SUPPORT OTC PRODUCT Take 2 capsules by mouth three times daily. MULTI-PHASE GI SS meloxicam (MOBIC) 7.5 mg tablet Take 7.5 mg by mouth once daily. OTC PRODUCT D3K Vitamin D and K supplement Takes 1 with dinner FAMILY HISTORY Problem Relation Age of Onset Heart Mother PR Heart Father PR Heart Sister bunddle block Hyperlipidemia Sister Hypertension Sister Hyperlipidemia Sister Heart Brother Hyperlipidemia Brother Hypertension Brother Breast Cancer Daughter Social History Tobacco Use Smoking status: Never Smoker Smokeless tobacco: Never Used Vaping Use Vaping Use: Never used Substance Use Topics Alcohol use: No Drug use: No ASSESSMENT/PLAN: 1. Cough - ICD9: 786.2, ICD10: R05.9 (primary diagnosis) - COVID WITH FLUA+B, ROUTINE 2. Suspected COVID-19 virus infection - ICD9: V01.79, ICD10: Z20.822 - COVID WITH FLUA+B, ROUTINE Prescription instructions reviewed with patient as applicable. Potential red flag symptoms discussed with the patient. Reviewed appropriate action plan to take if red flag symptoms occur. patient instructed to follow up with PCP if anything changes. Patient agreeable to treatment plan. Adriana Vasquez APRN.CNP documented in this encounter [facility] Evaluation + Plan note Future Appointments Appointment Date:05/30/2021 11:00:00 AM Scheduled Provider:NAHOMI LOBO Location:[facility] Appointment Type:CV OV Appointment Date:02/26/2022 02:00:00 PM Scheduled Provider:DONG BARBOSA Location:[facility] Appointment Type:BS OV Follow Up [facility] Evaluation + Plan note Future Appointments Appointment Date:05/29/2022 10:30:00 AM Scheduled Provider:NAHOMI LOBO Location:[facility] Appointment Type:CV OV Appointment Date:02/26/2023 11:00:00 AM Scheduled Provider:THONG AGUILAR Location:[facility] Appointment Type:BS OV Future Scheduled TestsMA Mammo Screening Bilateral w/ Mic 01/26/23 [facility] Evaluation + Plan note Future Appointments Appointment Date:05/29/2022 10:30:00 AM Scheduled Provider:NAHOMI LOBO Location:[facility] Appointment Type:CV OV Appointment Date:02/26/2023 11:00:00 AM Scheduled Provider:THONG AGUILAR Location:[facility] Appointment Type:BS OV Diagnostic Tests PendingMISC Lab Send out (Blood Specimens) 03/03/22 Future Scheduled TestsMA Mammo Screening Bilateral w/ Mic 01/26/23 [facility] Evaluation + Plan note Future Appointments Appointment Date:12/04/2022 02:30:00 PM Scheduled Provider:NAHOMI LOBO Location:[facility] Appointment Type:CV OV Appointment Date:02/26/2023 11:00:00 AM Scheduled Provider:ALUREN, THONG R SPECIAL EVENTS DRIVER-APPLIANCE SALES ASSOCIATE Location:[facility] Appointment Type:BS OV Future Scheduled TestsMA Mammo Screening Bilateral w/ Mic 01/26/23 [facility] Diagnosis Discoloration of skin- Primary Dyschromia, unspecified [facility] Diagnosis Malignant neoplasm of upper-inner quadrant of right breast in female, estrogen receptor positive (HCC)- Primary [facility] Urinary urgency- Primary Urgency of urination Dysuria [facility] Diagnosis Fever, unspecified fever cause- Primary Coagulation defect (HCC) Other and unspecified coagulation defects Leg swelling Swelling of limb Malignant neoplasm of upper-inner quadrant of right breast in female, 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, estrogen and progesterone receptor positive (HCC) Bone pain Disorder of bone and cartilage, unspecified [facility] Diagnosis Fever, unknown origin- Primary Fever, unspecified Personal history of malignant neoplasm of breast [facility] Diagnosis Malignant neoplasm of upper-inner quadrant of right breast in female, estrogen receptor positive (HCC)- Primary [facility] Diagnosis Fever, low grade- Primary Fever, unspecified [facility]* Diagnosis Dysuria- Primary Vaginal burning Other specified symptom associated with female genital organs [facility] Diagnosis Hematuria, unspecified type- Primary Dysuria Vaginal dryness Other specified symptom associated with female genital organs Abnormal facial hair Hirsutism Low grade fever Fever, unspecified [facility]* Diagnosis Personal history of malignant neoplasm of breast- Primary Encounter for screening mammogram for high-risk patient [facility] Diagnosis Encounter for screening mammogram for malignant neoplasm of breast Other screening mammogram [facility] Diagnosis Fever, unspecified fever cause Malignant neoplasm of upper-inner quadrant of right breast in female, 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, estrogen and progesterone receptor positive (HCC) Bone pain Disorder of bone and cartilage, unspecified [facility] Diagnosis Personal history of malignant neoplasm of breast Encounter for screening mammogram for high-risk patient documented in this encounter [facility] course Narrative No data available for this section [facility] Hospital Discharge instructions No data available for this section [facility] Progress note No data available for this section [facility] Reason for referral (narrative)* Diagnostic Procedure Only (Routine) - Authorized Specialty Diagnoses / Procedures Referred By Jessica monique Referred To Contact [facility] Diagnoses Fever, unspecified fever cause Malignant neoplasm of upper-inner quadrant of right breast in female, 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, estrogen and progesterone receptor positive (HCC) Bone pain Procedures NM BONE WHOLE BODY BONE &/JOINT IMAGING WHOLE BODY Robert Weber, DO [address] [place] [address] [facility] [address] [place] [address] Referral ID Status Reason Start Date Expiration Date Visits Requested Visits Authorized [id number] Authorized Auto-Generat ed Referral 04/01/2022 05/01/2023 1 1 * Outpatient Procedure (Routine) - Authorized Specialty Diagnoses / Procedures Referred By Jessica monique Referred To Contact [facility] Diagnoses Fever, unspecified fever cause Leg swelling Procedures US LEG VEIN DVT EMERITA VAS LAB DUP-SCAN XTR VEINS COMPLETE BILATERAL STUDY Robert Weber DO [address] [place] [address] [facility] [address] [place] [address] Referral ID Status Reason Start Date Expiration Date Visits Requested Visits Authorized [id number] Authorized Auto-Generat ed Referral 04/01/2022 04/01/2023 1 [facility] Diagnostic Procedure Only (Routine) - Authorized Specialty Diagnoses / Procedures Referred By Jessica monique Referred To Contact [facility] Diagnoses Personal history of malignant neoplasm of breast Encounter for screening mammogram for high-risk patient Procedures DESIREE SCREENING W MIC SCREENING DIGITAL BREAST TOMOSYNTHESIS BI SCREENING MAMMOGRAPHY BI 2-VIEW BREAST INC CAD Deyanira Mendez APRN.CNP [address] [place] [address] [facility] [address] [place] [address] Referral ID Status Reason Start Date Expiration Date Visits Requested Visits Authorized [id number] Authorized Auto-Generat ed Referral 11/21/2022 12/21/2023 1 1 [facility] for referral (narrative)* Diagnostic Procedure Only (Routine) - Closed Specialty Diagnoses / Procedures Referred By Jessica monique Referred To Contact [facility] Diagnoses Encounter for screening mammogram for malignant neoplasm of breast Procedures DESIREE SCREENING W MIC SCREENING BREAST DGTL MIC UNI/BILAT ADD ON SCREENING MAMMOGRAPHY BI 2-VIEW BREAST INC CAD Prisca Rivera MD [address] [place] [address] [facility] [address] [place] [address] Referral ID Status Reason Start Date Expiration Date V isits Requested Visits Authorized [id number] Closed Auto-Generate d Referral 01/28/2021 02/27/2022 1 1 [facility] for referral (narrative)* Diagnostic Procedure Only (Routine) - Closed Specialty Diagnoses / Procedures Referred By Jessica monique Referred To Contact [facility] Diagnoses Fever, unspecified fever cause Malignant neoplasm of upper-inner quadrant of right breast in female, 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, estrogen and progesterone receptor positive (HCC) Bone pain Procedures NM BONE WHOLE BODY BONE &/JOINT IMAGING WHOLE BODY Robert Weber DO [address] [place] [address] [facility] [address] [id number] Referral ID Status Reason Start Date Expiration Date V isits Requested Visits Authorized [id number] Closed Auto-Generate d Referral 04/01/2022 05/01/2023 1 1 [facility] for visit Narrative* Diagnostic Procedure Only (Routine) - Closed Specialty Diagnoses / Procedures Referred By Contac t Referred To Contact [facility] Diagnoses Encounter for screening mammogram for malignant neoplasm of breast Procedures DESIREE SCREENING W MIC SCREENING BREAST DGTL MIC UNI/BILAT ADD ON SCREENING MAMMOGRAPHY BI 2-VIEW BREAST INC CAD Prisca Rivera MD [address] [place] [address] [facility] [address] [place] [address] Referral ID Status Reason Start Date Expiration Date V isits Requested Visits Authorized [id number] Closed Auto-Generate d Referral 01/28/2021 02/27/2022 1 1 [facility] for visit Narrative* Diagnostic Procedure Only (Routine) - Closed Specialty Diagnoses / Procedures Referred By Jessica t Referred To Contact [facility] Diagnoses Fever, unspecified fever cause Malignant neoplasm of upper-inner quadrant of right breast in female, 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, estrogen and progesterone receptor positive (HCC) Bone pain Procedures NM BONE WHOLE BODY BONE &/JOINT IMAGING WHOLE BODY Robert Weber DO [address] [place] [address] [facility] [address] [place] [address] Referral ID Status Reason Start Date Expiration Date V isits Requested Visits Authorized [id number] Closed Auto-Generate d Referral 04/01/2022 05/01/2023 1 1 [facility] for visit Narrative* Diagnostic Procedure Only (Routine) - Closed Specialty Diagnoses / Procedures Referred By Contguicho t Referred To Contact [facility] Diagnoses Personal history of malignant neoplasm of breast Encounter for screening mammogram for high-risk patient Procedures DESIREE SCREENING W MIC SCREENING DIGITAL BREAST TOMOSYNTHESIS BI SCREENING MAMMOGRAPHY BI 2-VIEW BREAST INC CAD Deyanira Mendez, ELENA.APPLIANCE SALES ASSOCIATE [address] [place] [address] [facility] [address] [place] [address] Referral ID Status Reason Start Date Expiration Date V isits Requested Visits Authorized [id number] Closed Auto-Generate d Referral 11/21/2022 12/21/2023 1 1 [facility] Concerns Infection Onset Date Last Indicated Resolved Time COVID-19 Rule-Out 06/01/2021 06/01/2021 Summary Purpose Family History No Family History Records FoundNo Family History Records Found Advance Directives No Advanced Directives Records FoundNo Advanced Directives Records Found Additional Source Comments Source Comments (unrecognize d section and content) In the event this informatio n is protected by the Federal Confidentiality of Alcohol and Drug Abuse Patient Records regulations: The Federal rules restrict any use of the information to criminally investigate or prosecute any alcohol or drug abuse patient.[facility] the event this information is protected by the Federal Confidentiality of Alcohol and Drug Abuse Patient Records regulations: The Federal rules restrict any use of the information to criminally investigate or prosecute any alcohol or drug abuse patient.[facility] the event this information is protected by the Federal Confidentiality of Alcohol and Drug Abuse Patient Records regulations: The Federal rules restrict any use of the information to criminally investigate or prosecute any alcohol or drug abuse patient.[facility] the event this information is protected by the Federal Confidentiality of Alcohol and Drug Abuse Patient Records regulations: The Federal rules restrict any use of the information to criminally investigate or prosecute any alcohol or drug abuse patient.[facility] the event this information is protected by the Federal Confidentiality of Alcohol and Drug Abuse Patient Records regulations: The Federal rules restrict any use of the information to criminally investigate or prosecute any alcohol or drug abuse patient.[facility] the event this information is protected by the Federal Confidentiality of Alcohol and Drug Abuse Patient Records regulations: The Federal rules restrict any use of the information to criminally investigate or prosecute any alcohol or drug abuse patient.[facility] the event this information is protected by the Federal Confidentiality of Alcohol and Drug Abuse Patient Records regulations: The Federal rules restrict any use of the information to criminally investigate or prosecute any alcohol or drug abuse patient.[facility] the event this information is protected by the Federal Confidentiality of Alcohol and Drug Abuse Patient Records regulations: The Federal rules restrict any use of the information to criminally investigate or prosecute any alcohol or drug abuse patient.[facility] the event this information is protected by the Federal Confidentiality of Alcohol and Drug Abuse Patient Records regulations: The Federal rules restrict any use of the information to criminally investigate or prosecute any alcohol or drug abuse patient.[facility] the event this information is protected by the Federal Confidentiality of Alcohol and Drug Abuse Patient Records regulations: The Federal rules restrict any use of the information to criminally investigate or prosecute any alcohol or drug abuse patient.[facility] the event this information is protected by the Federal Confidentiality of Alcohol and Drug Abuse Patient Records regulations: The Federal rules restrict any use of the information to criminally investigate or prosecute any alcohol or drug abuse patient.[facility] the event this information is protected by the Federal Confidentiality of Alcohol and Drug Abuse Patient Records regulations: The Federal rules restrict any use of the information to criminally investigate or prosecute any alcohol or drug abuse patient.[facility] the event this information is protected by the Federal Confidentiality of Alcohol and Drug Abuse Patient Records regulations: The Federal rules restrict any use of the information to criminally investigate or prosecute any alcohol or drug abuse patient.[facility]In the event this information is protected by the Federal Confidentiality of Alcohol and Drug Abuse Patient Records regulations: The Federal rules restrict any use of the information to criminally investigate or prosecute any alcohol or drug abuse patient.[facility] HospitalIn the event this information is protected by the Federal Confidentiality of Alcohol and Drug Abuse Patient Records regulations: The Federal rules restrict any use of the information to criminally investigate or prosecute any alcohol or drug abuse patient.[facility] HospitalIn the event this information is protected by the Federal Confidentiality of Alcohol and Drug Abuse Patient Records regulations: The Federal rules restrict any use of the information to criminally investigate or prosecute any alcohol or drug abuse patient.[facility] HospitalIn the event this information is protected by the Federal Confidentiality of Alcohol and Drug Abuse Patient Records regulations: The Federal rules restrict any use of the information to criminally investigate or prosecute any alcohol or drug abuse patient.[facility] HospitalIn the event this information is protected by the Federal Confidentiality of Alcohol and Drug Abuse Patient Records regulations: The Federal rules restrict any use of the information to criminally investigate or prosecute any alcohol or drug abuse patient.[facility] HospitalIn the event this information is protected by the Federal Confidentiality of Alcohol and Drug Abuse Patient Records regulations: The Federal rules restrict any use of the information to criminally investigate or prosecute any alcohol or drug abuse patient.[facility] HospitalIn the event this information is protected by the Federal Confidentiality of Alcohol and Drug Abuse Patient Records regulations: The Federal rules restrict any use of the information to criminally investigate or prosecute any alcohol or drug abuse patient.[facility] HospitalIn the event this information is protected by the Federal Confidentiality of Alcohol and Drug Abuse Patient Records regulations: The Federal rules restrict any use of the information to criminally investigate or prosecute any alcohol or drug abuse patient.[facility] HospitalIn the event this information is protected by the Federal Confidentiality of Alcohol and Drug Abuse Patient Records regulations: The Federal rules restrict any use of the information to criminally investigate or prosecute any alcohol or drug abuse patient.[facility] HospitalIn the event this information is protected by the Federal Confidentiality of Alcohol and Drug Abuse Patient Records regulations: The Federal rules restrict any use of the information to criminally investigate or prosecute any alcohol or drug abuse patient.[facility] HospitalIn the event this information is protected by the Federal Confidentiality of Alcohol and Drug Abuse Patient Records regulations: The Federal rules restrict any use of the information to criminally investigate or prosecute any alcohol or drug abuse patient.[facility] HospitalIn the event this information is protected by the Federal Confidentiality of Alcohol and Drug Abuse Patient Records regulations: The Federal rules restrict any use of the information to criminally investigate or prosecute any alcohol or drug abuse patient.[facility] HospitalIn the event this information is protected by the Federal Confidentiality of Alcohol and Drug Abuse Patient Records regulations: The Federal rules restrict any use of the information to criminally investigate or prosecute any alcohol or drug abuse patient.[facility] HospitalIn the event this information is protected by the Federal Confidentiality of Alcohol and Drug Abuse Patient Records regulations: The Federal rules restrict any use of the information to criminally investigate or prosecute any alcohol or drug abuse patient.[facility] HospitalIn the event this information is protected by the Federal Confidentiality of Alcohol and Drug Abuse Patient Records regulations: The Federal rules restrict any use of the information to criminally investigate or prosecute any alcohol or drug abuse patient.[facility] HospitalIn the event this information is protected by the Federal Confidentiality of Alcohol and Drug Abuse Patient Records regulations: The Federal rules restrict any use of the information to criminally investigate or prosecute any alcohol or drug abuse patient.[facility] HospitalIn the event this information is protected by the Federal Confidentiality of Alcohol and Drug Abuse Patient Records regulations: The Federal rules restrict any use of the information to criminally investigate or prosecute any alcohol or drug abuse patient.[facility] HospitalIn the event this information is protected by the Federal Confidentiality of Alcohol and Drug Abuse Patient Records regulations: The Federal rules restrict any use of the information to criminally investigate or prosecute any alcohol or drug abuse patient.[facility] Reason for Visit (unrecogniz ed section and content) Reason Comments Radiology CT Reason Comments Patient Question Reason Comments Rash L lower leg x today Reason Comments Yearly Exam Breast Cancer Reason Comments UTI Reason Comments Future Appointment Reason Comments Appointment Reason Comments New Patient Reason Comments Results US Legs Reason Comments Results Labs and bone scan Reason Comments Established Patient Reason Comments disk and report Reason Comments AVS 04/11/22 Reason Comments Procedure BMBX Reason Comments Social Work Services Reason Comments Vaginal Problem burning Reason Comments Vaginal Problem Reason Comments Results Reason Comments Established Patient Reason Comments Radiology US Reason Comments Radiology NM Care Teams (unrecognized sec tion and content) Tare Worker Relationship Specialty Start Date End Date Angel Fuller MD [address] [place] [address] PCP - General Internal Medicine 05/06/18 Yue Bravo MD, MD [address] [place], [place] [id number] Physician Radiation Oncology 03/06/16 Tare Worker Relationship Specialty Start Date End Date Angel Fuller MD [address] [place] [address] PCP - General Internal Medicine 05/06/18 Yue Bravo MD, [address] [place] [address] Physician Radiation Oncology 03/06/16 Tare Worker Relationship Specialty Start Date End Date Angel Fuller MD [address] [place] [address] PCP - General Internal Medicine 05/06/18 Yue Bravo MD, [address] [place] [address] Physician Radiation Oncology 03/06/16 Tare Worker Relationship Specialty Start Date End Date Angel Fuller MD [address] [place] [address] PCP - General Internal Medicine 05/06/18 Yue Bravo MD, [address] [place] [address] Physician Radiation Oncology 03/06/16 Tare Worker Relationship Specialty Start Date End Date Angel Fuller MD [address] [place] [address] PCP - General Internal Medicine 05/06/18 Yue Bravo MD, [address] [place] [address] Physician Radiation Oncology 03/06/16 Tare Worker Relationship Specialty Start Date End Date Angel Fuller MD [address] [place] [address] PCP - General Internal Medicine 05/06/18 Yue Bravo MD, [address] [place] [address] Physician Radiation Oncology 03/06/16 Tare Worker Relationship Specialty Start Date End Date Angel Fuller MD [address] [place] [address] PCP - General Internal Medicine 05/06/18 Yue Bravo MD, [address] [place] [address] Physician Radiation Oncology 03/06/16 Tare Worker Relationship Specialty Start Date End Date Angel Fuller MD [address] [place] [address] PCP - General Internal Medicine 05/06/18 Yue Bravo MD, [address] [place] [address] Physician Radiation Oncology 03/06/16 Deyanira Mendez, SPECIAL EVENTS DRIVER.APPLIANCE SALES ASSOCIATE [address] [place] [address] Hematology/Oncology 03/20/22 Tare Worker Relationship Specialty Start Date End Date Angel Fuller MD [address] [place] [address] PCP - General Internal Medicine 05/06/18 Yue Bravo MD, [address] [place] [address] Physician Radiation Oncology 03/06/16 Deyanira Mendez, SPECIAL EVENTS DRIVER.APPLIANCE SALES ASSOCIATE [address] [place] [address] Hematology/Oncology 03/20/22 Tare Worker Relationship Specialty Start Date End Date Angel Fuller MD [address] [place] [address] PCP - General Internal Medicine 05/06/18 Yue Bravo MD, [address] [place] [address] Physician Radiation Oncology 03/06/16 Deyanira Mendez, SPECIAL EVENTS DRIVER.APPLIANCE SALES ASSOCIATE [address] [place] [address] Hematology/Oncology 03/20/22 Tare Worker Relationship Specialty Start Date End Date Angel Fuller MD [address] [place] [address] PCP - General Internal Medicine 05/06/18 Yue Bravo MD, [address] [place] [address] Physician Radiation Oncology 03/06/16 Deyanira Mendez, SPECIAL EVENTS DRIVER.APPLIANCE SALES ASSOCIATE [address] [place] [address] Hematology/Oncology 03/20/22 Tare Worker Relationship Specialty Start Date End Date Angel Fuller MD [address] [place] [address] PCP - General Internal Medicine 05/06/18 Yue Bravo MD, [address] [place] [address] Physician Radiation Oncology 03/06/16 Deyanira Mendez, SPECIAL EVENTS DRIVER.APPLIANCE SALES ASSOCIATE [address] [place] [address] Hematology/Oncology 03/20/22 Tare Worker Relationship Specialty Start Date End Date Angel Fuller MD [address] [place] [address] PCP - General Internal Medicine 05/06/18 Yue Bravo MD, [address] [place] [address] Physician Radiation Oncology 03/06/16 Deyanira Mendez, ELENA.APPLIANCE SALES ASSOCIATE [address] [place] [address] Hematology/Oncology 03/20/22 Irena Gonzalez LISW [address] [place] [address] Kitchen Designer Hematology/Oncology 04/16/22 Tare Worker Relationship Specialty Start Date End Date Angel Fuller MD [address] [place] [address] PCP - General Internal Medicine 05/06/18 Yue Bravo MD, [address] [place] [address] Physician Radiation Oncology 03/06/16 Deyanira Mendez, SPECIAL EVENTS DRIVER.APPLIANCE SALES ASSOCIATE [address] [place] [address] Hematology/Oncology 03/20/22 Irena Gonzalez LISW [address] [place] [address] Kitchen Designer Hematology/Oncology 04/16/22 Tare Worker Relationship Specialty Start Date End Date Angel Fuller MD [address] [place] [address] PCP - General Internal Medicine 05/06/18 Yue Bravo MD, [address] [place] [address] Physician Radiation Oncology 03/06/16 Deyanira Mendez, ELENA.APPLIANCE SALES ASSOCIATE [address] [place] [address] Hematology/Oncology 03/20/22 Irena Gonzalez LISW [address] [place] [address] Kitchen Designer Hematology/Oncology 04/16/22 Tare Worker Relationship Specialty Start Date End Date Angel Fuller MD [address] [place] [address] PCP - General Internal Medicine 05/06/18 Yue Bravo MD, [address] [place] [address] Physician Radiation Oncology 03/06/16 Deyanira Mendez, SPECIAL EVENTS DRIVER.APPLIANCE SALES ASSOCIATE [address] [place] [address] Hematology/Oncology 03/20/22 Irena Gonzalez LISW [address] [place] [address] Kitchen Designer Hematology/Oncology 04/16/22 Millie Pantoja MD [address] [place] [address] Infectious Diseases 05/21/22 Lorenzo Montana [address] [place] [address] Orthopedics 05/21/22 Tare Worker Relationship Specialty Start Date End Date Angel Fuller MD [address] [place] [address] PCP - General Internal Medicine 05/06/18 Yue Bravo MD, [address] [place] [address] Physician Radiation Oncology 03/06/16 Deyanira Mendez, ELENA.APPLIANCE SALES ASSOCIATE [address] [place] [address] Hematology/Oncology 03/20/22 Irena Gonzalez LISW [address] [place] [address] Kitchen Designer Hematology/Oncology 04/16/22 Mlilie Pantoja MD [address] [place] [facility] [place] [address] Infectious Diseases 05/21/22 Lorenzo Montana [address] [place] [address] Orthopedics 05/21/22 Millie Pantoja MD [address] [place] [facility] [place] [address] Referring Infectious Diseases 06/19/22 Tare Worker Relationship Specialty Start Date End Date Angel Fuller MD [address] [place] [address] PCP - General Internal Medicine 05/06/18 Yue Bravo MD, [address] [place] [address] Physician Radiation Oncology 03/06/16 Deyanira Mendez APRN.APPLIANCE SALES ASSOCIATE [address] [place] [address] Hematology/Oncology 03/20/22 Irena Gonzalez LISW [address] [place] [address] Kitchen Designer Hematology/Oncology 04/16/22 Millie Pantoja MD [address] [place] [facility] [place] [address] Infectious Diseases 05/21/22 [address] [place] [address] Orthopedics 05/21/22 Millie Pantoja MD [address] [place] [facility] [place] [address] Referring Infectious Diseases 06/19/22 Tare Worker Relationship Specialty Start Date End Date Angel Fuller MD [address] [place] [address] PCP - General Internal Medicine 05/06/18 Yue Bravo MD, [address] [place] [place] [address] Physician Radiation Oncology 03/06/16 Deyanira Mendez, ELENA.APPLIANCE SALES ASSOCIATE [address] [place] [address] Hematology/Oncology 03/20/22 Irena Gonzalez LISW [address] [place] [address] Kitchen Designer Hematology/Oncology 04/16/22 Millie Pantoja MD [address] [place] [address] Infectious Diseases 05/21/22 Lorenzo Montana [address] [address] Orthopedics 05/21/22 Millie Pantoja MD [address] [place] [address] Referring Infectious Diseases 06/19/22 Tare Worker Relationship Specialty Start Date End Date Angel Fuller MD [address] [place] [address] PCP - General Internal Medicine 05/06/18 Yue Bravo MD, [address] [place] [address] Physician Radiation Oncology 03/06/16 Deyanira Mendez, ELENA.APPLIANCE SALES ASSOCIATE [address] [place] [address] Hematology/Oncology 03/20/22 Irena Gonzalez LISW [address] [place] [address] Kitchen Designer Hematology/Oncology 04/16/22 Millie Pantoja MD [address] [place] [address] Infectious Diseases 05/21/22 Lorenzo Montana [address] [place] [address] Orthopedics 05/21/22 Millie Pantoja MD [address] [place] [address] Referring Infectious Diseases 06/19/22 Tare Worker Relationship Specialty Start Date End Date Angel Fuller MD [address] [place] [address] PCP - General Internal Medicine 05/06/18 Yue Bravo MD, [address] [place] [place] [address] Physician Radiation Oncology 03/06/16 Deyanira Mendez APRN.APPLIANCE SALES ASSOCIATE [address] [place] [address] Hematology/Oncology 03/20/22 Irena Gonzalez LISW [address] [place] [address] Kitchen Designer Hematology/Oncology 04/16/22 Millie Pantoja MD [address] [place], [place] [address] Infectious Diseases 05/21/22 Lorenzo Montana [address] [place] [address] Orthopedics 05/21/22 Millie Pantoja MD [address] [place] [address] Referring Infectious Diseases 06/19/22 Tare Worker Relationship Specialty Start Date End Date Angel Fuller MD [address] [place] [address] PCP - General Internal Medicine 05/06/18 Yue Bravo MD, [address] [place], [place] [address] Physician Radiation Oncology 03/06/16 Tare Worker Relationship Specialty Start Date End Date Angel Fuller MD [address] [place] [address] PCP - General Internal Medicine 05/06/18 Yue Bravo MD, [address] [place], [place] [phone] Physician Radiation Oncology 03/06/16 Tare Worker Relationship Specialty Start Date End Date Angel Fuller MD [address] [place] [address] PCP - General Internal Medicine 05/06/18 Yue Bravo MD, [address] [place], [place] [address] [phone] Physician Radiation Oncology 03/06/16 Tare Worker Relationship Specialty Start Date End Date Angel Fuller MD [address] [place] [address] PCP - General Internal Medicine 05/06/18 Yue Bravo MD, [address] [place] [address] Physician Radiation Oncology 03/06/16 Deyanira Mendez APRN.APPLIANCE SALES ASSOCIATE [address] [place] [address] Hematology/Oncology 03/20/22 Tare Worker Relationship Specialty Start Date End Date Angel Fuller MD [address] [place] [address] PCP - General Internal Medicine 05/06/18 Yue Bravo MD, [address] [place] [address] Physician Radiation Oncology 03/06/16 Deyanira Mendez APRN.APPLIANCE SALES ASSOCIATE [address] [place] [address] Hematology/Oncology 03/20/22 Tare Worker Relationship Specialty Start Date End Date Angel Fuller MD [address] [place] [address] PCP - General Internal Medicine 05/06/18 Yue Bravo MD, [address] [place] [address] Physician Radiation Oncology 03/06/16 Deyanira Mendez APRN.APPLIANCE SALES ASSOCIATE [address] [place] [address] Hematology/Oncology 03/20/22 Irena Gonzalez, DELIVERY AND INSTALLATION SUBCONTRACTOR [address] [place] [address] Kitchen Designer Hematology/Oncology 04/16/22 Millie Pantoja MD [address] [place] [address] Infectious Diseases 05/21/22 Lorenzo Montana [address] [place] [address] Orthopedics 05/21/22 Millie Pantoja MD [address] [place] [address] Referring Infectious Diseases 06/19/22 Care Team (unrecognized sect ion and content) Care Team Personnel Name: ANGEL FULLER MD Position: Physician Member Role: Primary Care Physician Address: Address: [address] [place] [address] [address] Care Team Related Persons Name: ROBERTO BURGER Name: ROBERTO BURGER Name: MYLES MONROY Care Team Personnel Name: ANGEL FULLER MD Position: Physician Member Role: Primary Care Physician Address: Address: [address] [place] [address] [address] Care Team Related Persons Name: ROBERTO BURGER Name: ROBERTO BURGER Name: MYLES MONROY INFORMATION SOURCE (unrecogn ized section and content) DATE CREATED AUTHOR AUTHOR'S ORGANIZ ATION 02/07/2023 [facility] FOR RECORDS PERTAINING TO PATIENTS WHO ARE OR HAVE BEEN ENROLLED IN A CHEMICAL DEPENDENCY/SUBSTANCEABUSE PROGRAM, SOME INFORMATION MAY BE OMITTED. This clinical summary was aggregated from multiple sources. Caution should be exercised in using it in the provision of clinical care. This summary normalizes information from multiple sources, and as a consequence, information in this document may materially change the coding, format and clinical context of patient data. In addition, data may be omitted in some cases. CLINICAL DECISIONS SHOULD BE BASED ON THE PRIMARY CLINICAL RECORDS. [facility] [employer] [facility]. provides no warranty or guarantee of the accuracy or completeness of information in this document.
== END | disposition home or self-care (01) ==
LOC: MRI 13:09
PROVIDERS: PCP Internal Medicine; Referring Provider Orthopaedic Surgery; Visit Provider Orthopaedic Surgery
DX: M50.30 Other cervical disc degeneration, unspecified cervical region (principal)
CPT/HCPCS: 72141

== ENCOUNTER 2023-03-20 10:14 | Outpatient (CLI) | payer MEDICARE, OTHER, SELFPAY ==
[2023-03-20 10:24] VITALS: BP 137/68; PULSE 76; RESP 16; TEMP 36.4; O2SAT 99
[2023-03-20] MEDS: Zoledronic Acid 5 MG 100 ML 300 MG IV (10:37)
[2023-03-20] MEDS: 0.9% NaCl Peripheral Flush Adult/Peds IV (10:38)
--- OUTSIDE RECORDS SUMMARY | 2023-03-20 10:43 | XMS RPT_ITS | CCD ---
Author Name Unknown Address [address] [place] [address] Organization [facility] Care Team Providers Care Corporate Director Of Pharmacy Name Role Phone JONNY RETANA, DR ANGEL Menjivar Primary Care Physician [phone] Lawrence RETANA MD, Yue Unavailable Angel Fuller MD Primary Care Provider [phone] Lawrence RETANA MD, Yue Unavailable [phone] Angel Fuller MD Primary Care Provider Lawrence RETANA MD, Daesung Unavailable Angel Fuller MD Primary Care Provider DR ANGEL FULLER MD Primary Care Physician aVnessa PARKER.Deyanira ANDRADE Unavailable Irena White Unavailable Unavailabl Millie Owens MD Unavailable Lorenzo Montana Unavailable Millie Mcclellan MD Unavailable Millie Mcclellan MD Unavailable Millie Mcclellan MD Unavailable ANGEL FULLER Primary Care Unavailable ANGEL FULLER Primary Care Unavailable ANGEL FULLER Primary Care Unavailable MILLIE MCCLELLAN Referring Unavailable ROBERT WEBER Attending Unavailable ANGEL FULLER Primary Care Unavailable ANGEL FULLER Primary Care Unavailable ANGEL FULLER Primary Care Unavailable ANGEL FULLER Primary Care Unavailable ANGEL FULLER Primary Care Unavailable DELLA PORTILLO Referring Unavailab [...] le NAM, ANGEL K Primary Care Unavailable MASCI, ROBERT Attending Unavailable MASCI, ROBERT Referring Unavailable NAM, ANGEL K Primary Care Unavailable MASCI, ROBERT Referring Unavailable NAM, ANGEL K Primary Care Unavailable MASCI, ROBERT Referring Unavailable NAM, ANGEL K Primary Care Unavailable MASCI, ROBERT Referring Unavailable NAM, ANGEL K Primary Care Unavailable MASCI, ROBERT Referring Unavailable NAM, ANGEL K Primary Care Unavailable DELLA PORTILLO Attending Unavailab le NAM, ANGEL K Primary Care Unavailable MASCI, ROBERT Attending Unavailable NAM, ANGEL K Primary Care Unavailable MASCI, ROBERT Referring Unavailable NAM, ANGEL K Primary Care Unavailable MASCI, ORBERT Attending Unavailable MASCI, ROBERT Referring Unavailable ILANA TAVAREZ MD Attending Unavailable NAM, ANGEL Primary Care Unavailable ILANA TAVAREZ MD Attending Unavailable NAM, ANGEL Primary Care Unavailable LASHELL BARCENAS, NAHOMI Attending Unavailab le NAM, ANGEL Primary Care Unavailable LAUREN MATSONLENO SEWER, THONG Mayen Attending Unavai lable NAM, ANGEL Primary Care Unavailable Allergies Allergy Classification Reported Allergen(s) Allergy Type Date of Onset Reaction(s) Facility (20 sources) DULoxetine; Translations: [DULOXETINE] Drug Allergy 09-14-2019 Rash [facility] Medications Current Medications Medication Drug Class(es) Dates [...] Classification Problem Date Documented Da te Episodic/Chronic Cancer of breast (20 sources) Malignant neoplasm [...] Other Problems Problem Classification Problem Date Documented Da te Episodic/Chronic Abdominal pain (2 sources) Epigastric pain; Translations: [Epigastric pain] Onset: 07-15-2022 Episodic Genitourinary symptoms and ill-defined conditions (7 sources) [...] Translations: [Vaginal burning] Onset: 06-25-2022 Episodic Other gastrointestinal disorders (2 sources) Eructation; Translations: [Eructation] Onset: 07-15-2022 Episodic Other gastrointestinal disorders (2 sources) Gas pain; Translations: [Gas pain] Onset: 07-15-2022 Episodic Other nutritional; endocrine; and metabolic disorders (2 sources) Abnormal weight loss; Translations: [Abnormal weight loss] Onset: 07-15-2022 Episodic Other skin disorders (1 source) Other hair color and hair shaft abnormalities; Translations: [Abnormal facial hair] Onset: 07-01-2022 Episodic Residual codes; unclassified (20 sources) Early [...] 161.9 cm Deyanira Mendez APRN.CNP Work Phone: [facility] 11-21-2022 12:56-0400 Body temperature 97.5 [degF] Deyanira Mendez APRN.CNP Work Phone: [facility] 11-21-2022 12:56-0400 Body weight 68.49 kg Deyanira Mendez APRN.CNP Work Phone: [facility] 11-21-2022 12:56-0400 Diastolic blood pressure 84 mm[Hg] Deyanira Mendez SUPERVISOR TOY ASSEMBLY.LENO SEWER Work Phone: [facility] 11-21-2022 12:56-0400 Heart rate 76 /min Deyanira Mendez SUPERVISOR TOY ASSEMBLY.LENO SEWER Work Phone: [facility] 11-21-2022 12:56-0400 SaO2% (BldA) [Mass fraction] 99 % [place] Mendez SUPERVISOR TOY ASSEMBLY.LENO SEWER Work Phone: [facility] 11-21-2022 12:56-0400 Systolic blood pressure 146 mm[Hg] Deyanira Chaenter SUPERVISOR TOY ASSEMBLY.LENO SEWER Work Phone: [facility] 07-01-2022 15:03-0400 Body weight 68.04 kg Prisca Benavides MD Work Phone: [facility] 07-01-2022 15:03-0400 Diastolic blood pressure 60 mm[Hg] Prisca Benavides MD Work Phone: [facility] 07-01-2022 15:03-0400 Systolic blood pressure 124 mm[Hg] Prisca Benavides MD Work Phone: [facility] 06-25-2022 10:19-0400 Body weight 68.04 kg Olga Zurdodebby SUPERVISOR TOY ASSEMBLY.CNM Work Phone: [facility] 06-25-2022 10:19-0400 Diastolic blood pressure 70 mm[Hg] Olga Rennerts SUPERVISOR TOY ASSEMBLY.CNM Work Phone: [facility] 06-25-2022 10:19-0400 Systolic blood pressure 124 mm[Hg] Olga Rennerts SUPERVISOR TOY ASSEMBLY.CNM Work Phone: [facility] 05-07-2022 14:09-0400 Body temperature 96.8 [degF] Robert Masci DO Work Phone: [facility] 05-07-2022 14:09-0400 Diastolic blood pressure 75 mm[Hg] Robert Masci DO Work Phone: [facility] 03-15-2023 14:09-0400 Heart rate 68 /min Robert Masci DO Work Phone: [facility] 05-07-2022 14:09-0400 Systolic blood pressure 160 mm[Hg] Robert Masci DO Work Phone: [facility] 04-11-2022 15:40-0500 Body temperature 97.2 [degF] Robert Masci DO Work Phone: [facility] 04-11-2022 15:40-0500 Body weight 71.22 kg Robert Masci DO Work Phone: [facility] 04-11-2022 15:40-0500 Diastolic blood pressure 82 mm[Hg] Robert Masci DO Work Phone: [facility] 04-11-2022 15:40-0500 Heart rate 76 /min Robert Masci DO Work Phone: [facility] 04-11-2022 15:40-0500 SaO2% (BldA) [Mass fraction] 99 % Robert Masci DO Work Phone: [facility] 04-11-2022 15:40-0500 Systolic blood pressure 148 mm[Hg] Robert Masci DO Work Phone: [facility] 04-01-2022 14:36-0500 Body height 163 cm Robert Masci DO Work Phone: [facility] 04-01-2022 14:36-0500 Body temperature 97.9 [degF] Robert Masci DO Work Phone: [facility] 04-01-2022 14:36-0500 Body weight 71.44 kg Robert Masci DO Work Phone: [facility] 04-01-2022 14:36-0500 Diastolic blood pressure 86 mm[Hg] Robert Masci DO Work Phone: [facility] 04-01-2022 14:36-0500 Heart rate 87 /min Robert Masci DO Work Phone: [facility] 04-01-2022 14:36-0500 SaO2% (BldA) [Mass fraction] 99 % Robert Masci DO Work Phone: [facility] 04-01-2022 14:36-0500 Systolic blood pressure 143 mm[Hg] Robert Weber DO Work Phone: [facility] 12-26-2021 15:48-0400 Body weight 67.59 kg Andres Vasquez MD Work Phone: [facility] 12-26-2021 15:48-0400 Diastolic blood pressure 76 mm[Hg] Andres Vasquez MD Work Phone: [facility] 12-26-2021 15:48-0400 Systolic blood pressure 128 mm[Hg] Andres Vasquez MD Work Phone: [facility] 07-30-2021 14:13-0400 Body height 163.8 cm Deyanira Mendez SUPERVISOR TOY ASSEMBLY.LENO SEWER Work Phone: [facility] 07-30-2021 14:13-0400 Body temperature 98.1 [degF] Deyanira Mendez SUPERVISOR TOY ASSEMBLY.LENO SEWER Work Phone: [facility] 07-30-2021 14:13-0400 Body weight 65.09 kg Deyanira Mendez SUPERVISOR TOY ASSEMBLY.LENO SEWER Work Phone: [facility] 07-30-2021 14:13-0400 Diastolic blood pressure 80 mm[Hg] Deyanira Mendez SUPERVISOR TOY ASSEMBLY.LENO SEWER Work Phone: [facility] 07-30-2021 14:13-0400 Heart rate 90 /min Deyanira Mendez SUPERVISOR TOY ASSEMBLY.LENO SEWER Work Phone: [facility] 07-30-2021 14:13-0400 SaO2% (BldA) [Mass fraction] 97 % Deyanira Mendez SUPERVISOR TOY ASSEMBLY.LENO SEWER Work Phone: [facility] 07-30-2021 14:13-0400 Systolic blood pressure 128 mm[Hg] Deyanira Mendez SUPERVISOR TOY ASSEMBLY.LENO SEWER Work Phone: [facility] 07-12-2021 18:11-0400 Body temperature 97.59 [degF] Adriana Vasquez APRN.LENO SEWER Work Phone: [facility] 07-12-2021 18:11-0400 Body weight 66.04 kg Adriana James SUPERVISOR TOY ASSEMBLY.LENO SEWER Work Phone: [facility] 07-12-2021 18:11-0400 Diastolic blood pressure 92 mm[Hg] Adriana James SUPERVISOR TOY ASSEMBLY.LENO SEWER Work Phone: [facility] 07-12-2021 18:11-0400 Heart rate 87 /min Adriana Vasquez APRN.LENO SEWER Work Phone: [facility] 07-12-2021 18:11-0400 Respiratory rate 20 /min Adriana James SUPERVISOR TOY ASSEMBLY.LENO SEWER Work Phone: [facility] 07-12-2021 18:11-0400 SaO2% (BldA) [Mass fraction] 99 % Adriana Vasquez APRN.LENO SEWER Work Phone: [facility] 07-12-2021 18:11-0400 Systolic blood pressure 162 mm[Hg] Adriana Vasquez APRN.LENO SEWER Work Phone: [facility] 06-01-2021 13:30-0400 Body temperature 98.4 [degF] Adrianalynsey Vasquez SUPERVISOR TOY ASSEMBLY.LENO SEWER Work Phone: [facility] 06-01-2021 13:30-0400 Body weight 63.78 kg Adriana Vasquez SUPERVISOR TOY ASSEMBLY.LENO SEWER Work Phone: [facility] 06-01-2021 13:30-0400 Diastolic blood pressure 90 mm[Hg] Adriana Vasquez APRN.LENO SEWER Work Phone: [facility] 06-01-2021 13:30-0400 Heart rate 82 /min Adriana Vasquez APRN.LENO SEWER Work Phone: [facility] 06-01-2021 13:30-0400 Respiratory rate 14 /min Adriana Vasquez APRN.LENO SEWER Work Phone: [facility] 06-01-2021 13:30-0400 SaO2% (BldA) [Mass fraction] 99 % Adriana Vasquez APRN.LENO SEWER Work Phone: [facility] 06-01-2021 13:30-0400 Systolic blood pressure 130 mm[Hg] Adriana Vasquez APRN.LENO SEWER Work Phone: [facility] Encounters Encounter Date Encounter Type Care Provider Facility Start: 02-26-2023 End: 02-27-2023 ambulatory THONG AGUILAR APRN-LUPE Facility:A Start: 02-02-2023 End: 02-02-2023 ambulatory DEYANIRA MENDEZ Facility:[facility] Start: 02-02-2023 End: 02-02-2023 Subsequent hospital visit by physician Screen Mammo [facility] M[facility] Procedures Date Procedure Procedure Detail Performing Clinician Start: 11-17-2022 Lipid 1996 panel - S ariella or Plasma Deyanira Mendez SUPERVISOR TOY ASSEMBLY.LENO SEWER Work Phone: Start: 07-01-2022 Urnls dip stick/tabl et reagent auto microscopy Prisca Benavides MD Work Phone: Start: 06-25-2022 Urnls dip stick/tabl et rgnt auto w/o microscopy Olga Steinberg APRN.CNM Work Phone: Start: 05-07-2022 Diagnostic bone ramírez ow biopsies & aspirations Robert Weber DO Work Phone: Start: 04-03-2022 Bone [...] material [facility] Provider Start: 12-26-2020 Mammography Adriana Pedro ELENA.LENO SEWER Work Phone: Start: 07-12-2018 Adult depression screening assessment Adriana Vasquez ELENA.LENO SEWER Work Phone: Start: 02-23-2014 Cataract extraction and insertion of intraocular lens DONG AMEZQUITABRIANNAEMERITANeel PARKER-COMBINATION MACHINE TOOL SETTER Plan of Treatment Date Care Activity Detail Author Start: 11-18-2027 Lipid 1996 panel - S ariella or Plasma Lipid Screening [facility] Start: 11-18-2027 Lipid panel Lipid Screening [facility] Start: 11-17-2025 Diabetes Screening Diabetes Screenin g [facility] Start: 02-25-2025 DIABETES SCREEN [facility] Start: 01-31-2023 Mammography [facility] Start: 01-31-2023 Screening for malign ant neoplasm of breast Mammogram Screening [facility] Start: 10-24-2022 Influenza vaccination [facility] Start: 05-07-2022 End: 07-07-2022 CBC W Auto Differential panel - Blood CBC + DIFF Lab STAT Malignant neoplasm of upper-inner quadrant of right breast in female, estrogen receptor positive (HCC) Expected: 05/07/2022, Expires: 07/07/2022 [facility] Work Phone: Payers Date Payer Category Payer Medicare MEDICARE MEDICAR E A AND B [id number] 2013-Present [phone] [place] [address] Medicare [id number] 2013 Medicare MEDICARE MEDICAR E A AND B [id number] 2013-Present [phone] [place] [address] Medicare [id number] 2013 Medicare [id number] 2013 Medicare [id number] 2013 [facility] [id number] 2013-Present [phone] [address] [place] [address] Indemnity [id number] 2013 Unknown [place] [employer] MEDICARE SUPPLEMENT [id number] 2013-Present [phone] [address] [place] [address] Indemnity [id number] 1948 Unknown [id number] 1948 Unknown [id number] 1948 Unknown [id number] 1948 Unknown [id number] Social History Date Type Detail Facility Tobacco Tobacco Use: Andry. [facility] Start: 08-15-2011 End: 12-26-2021 Never smoked tobacco (finding) [facility] Start: 1950 Sex Assigned At Female A [facility] Start: 08-15-2011 End: 12-26-2021 Tobacco use and exposure Smokeless tobacco non-user [facility] Start: 06-01-2021 End: 11-21-2022 Alcohol intake Current non-drinker of alcohol (finding) [facility] Start: 05-22-2021 End: 07-30-2021 Exposure to SARS-CoV-2 (event) Not sure [facility] Work Phone: Start: 06-25-2022 End: 11-21-2022 History of Social function [facility] Start: 06-25-2022 End: 11-21-2022 Tobacco use panel [facility] Adult Depression Screening Assessment 2 [facility] Start: 11-02-2018 Gender identity Identifies as female gender (finding) [facility] Start: 07-28-2021 Sexual orientation Heterosexual (phuong gonzales) [facility] Clinical Notes 06-01-2021 to 02-02-2023 [place] Mancilla Mammo Tech - 02/02/2023 11:30 AM ESTTelephone Encounter - Brunilda Min LPN - 12/18/2022 8:41 AM EDTTelephone Encounter - Prisca Rivera MD - 12/17/2022 5:50 PM EDT Note Date & Type Note Facility 02-02-2023 Note HNO ID: [id number] Author: [place] Mancilla Mammo Tech Service: ? Author Type: Staff Assistant Type: Progress Notes Filed: 02/02/2023 11:46 AM [...] Gregorio Marcano February 02, 2023 11:32 AM [facility] 02-02-2023 History of Present illness Narrative Radiology [...] 2023 11:32 AM documented in this encounter [facility] 12-18-2022 Miscellaneous Notes Spoke with pt and [...] Nikia Clifford RN documented in this encounter [facility] 11-21-2022 Note HNO ID: [id number] Author: Deyanira Mendez APRN.LENO SEWER Service: ? Author Type: Nurse Practitioner Type: Progress Notes Filed: 11/21/2022 2:42 PM Note Text: Chief Complaint Patient presents with: Established Patient HPI: Kelli Monroy is a 72 year old female who presents here today for follow up breast cancer. Per Dr. 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 Liver demonstrated no mass. Echocardiogram at [facility] 02/21/2022: Left ventricular systolic function is normal. [...] fevers and fatigue for about a year. Lighting Technician temperatures from 03/26 through eMacs of 99.8 [...] big toes Skin: (more content not included)... [facility] 11-21-2022 History of Present illness Narrative Chief Complaint Patient presents with: Established Patient HPI: Kelli Monroy is a 72 year old female who presents here today for follow up breast cancer. Per Dr. 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 Liver demonstrated no mass. Echocardiogram at [facility] 02/21/2022: Left ventricular systolic function is normal. [...] fevers and fatigue for about a year. Lighting Technician temperatures from 03/26 through eMacs of 99.8 [...] ICD10: Z85.3 (primary diagnosis) pT1b pN0 Mx ER/WI positive, HER2 negative stage IA invasive ductal [...] Deyanira Mendez APRN.LUPE documented in this encounter [facility] 11-18-2022 Note HNO ID: [id number] Author: eDlla Portillo MD Service: ? Author Type: Physician [...] Small R maxillary effusion. Echo 02/21/2022 at [facility] showed normal EF 1+MR, 1-2+ TR, 1+WI. No vegetations reported. Bone marrow biopsy on [...] prior to going to her daughter's birthday democrat - When she went to get tested, her temperature was 99.8 F and Covid was negative but she was advised to not go to the democrat and to monitor her temperature. She has a R knee that needs to be replaced and has been getting injections for it. She had approval for surgery from her doctors prior to surgery. She went to an infectious disease in [place] and she had all of the studies [...] on the R side. She lives in [facility]. She has lived on two farms with cows and pigs. She lives in [place] in an apartment - lives alone. Drinks [...] outside of the country. She went to [place]. She was born in [place]. 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 PAST MEDICAL HISTORY Diagnosis Date Breast cancer in female (HCC) 01/2016 right Diverticulosis Irregular heart beat MVP (more content not included)... [facility] 07-16-2022 Note HNO ID: [id number] Author: Della Portillo MD Service: ? Author [...] Small R maxillary effusion. Echo 02/21/2022 at [facility] showed normal EF 1+MR, 1-2+ TR, 1+WI. No vegetations reported. Bone marrow biopsy on [...] clinically significant Della Portillo MD Infectious Disease [facility] 07-03-2022 Miscellaneous Notes Pt notified of results, all questions answered no further concerns. Brunilda Min LPN' DM pt Please let the pt know that her urine culture is negative for infection. Adelaida Brink APRN.CNP documented in this encounter [facility] 07-01-2022 Note HNO ID: [id number] Author: Prisca Benavides MD Service: ? Author Type: Physician Type: Progress Notes Filed: 07/01/2022 4:43 PM Note Text: Masonry Instructor offered: Patient declines. Kelli Monroy is a [...] L3 SAB0 IAB0 Ectopic0 Multiple0 Live Births0 Sole Ruffer History LMP: Postmenopausal Age at Menarche: Age at First : Age at Menopause: Sole Ruffer History Comments: Sexual Activity: Not Currently; No [...] Problem Relation Age of Onset Heart Mother ND Osteoporosis Mother Heart Father ND Heart Sister bunddle block Hyperlipidemia Sister Hypertension [...] 5 mg/100 mL pgbk PREMIX piggyback Zoledronic Fhgl-Rrdrtaxy-Cpmli Active 1 EACH .Route ONCE 100 February [...] MICROSCOPIC (R30.0) Dysuria (more content not included)... [facility] 07-01-2022 History of Present illness Narrative Masonry Instructor offered: Patient declines. Kelli Monroy is a [...] L3 SAB0 IAB0 Ectopic0 Multiple0 Live Births0 Sole Ruffer History LMP: Postmenopausal Age at Menarche: Age at First : Age at Menopause: Sole Ruffer History Comments: Sexual Activity: Not Currently; No [...] Problem Relation Age of Onset Heart Mother ND Osteoporosis Mother Heart Father ND Heart Sister bunddle block Hyperlipidemia Sister Hypertension [...] 5 mg/100 mL pgbk PREMIX piggyback Zoledronic Oami-Mryywusl-Ohupn Active 1 EACH .Route ONCE 100 February [...] which included preparing to see the patient, [id number] patient care, completing clinical documentation, obtaining and/or reviewing separately obtained history, performing a medically appropriate examination, counseling and educating the patient/family/caregiver, and ordering medications, tests, or procedures Medical Decision Making: Medical Decision Making Level: 1 - N/A Prisca Latham MD documented in this encounter [facility] 06-25-2022 Note HNO ID: [id number] Author: Olga Steinberg APRN.CNM Service: ? Author Type: Plodding Machine Operator Type: Progress Notes Filed: 06/25/2022 2:41 PM [...] and any treatment plans Olga Steinberg APRN.CNM [facility] 06-25-2022 Instructions Olga Steinberg APRN.CNM - 06/25/2022 [...] penis or fingers just before sex. Coconut, [place], Avocado or Peanut oil- natural oils are [...] are available in pharmacies and online. Restore- 64 Pixels.Skift Replens Stan Feminease Moist Again K-Y Liquid beads Products to assist with maintaining vaginal ph IsoFresh [email or web address] BiopHresh Rephresh documented in this encounter [facility] 06-25-2022 History of Present illness Narrative Kelli [...] Olga Steinberg APRN.CNM documented in this encounter [facility] 05-22-2022 Miscellaneous Notes SOCIAL WORK DISTRESS ASSESSMENT [...] and reports she is planning to call [facility] this afternoon to schedule a consult [...] in Care Team tab: Yes Assessment Completed MELISSA Caruso documented in this encounter [facility] 05-21-2022 Note HNO ID: [id number] Author: Robert Weber, DO Service: ? 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 Liver demonstrated no mass. Echocardiogram at [facility] 02/21/2022: Left ventricular systolic function is normal. [...] fevers and fatigue for about a year. Lighting Technician temperatures from 03/26 through eMacs of 99.8 [...] wheeze and hemoptysis. (more content not included)... [facility] 05-07-2022 Note HNO ID: [id number] Author: Robert Weber DO Service: ? Author Type: Physician Type: Procedures Filed: 05/07/2022 2:20 PM Note Text: BEDSIDE PROCEDURE NOTE BONE MARROW BIOPSY Performed by: Robert Weber DO Authorized by: Robert Weber DO Informed Consent Consent Obtained: Written [place] Protocol A moment to CARE was completed. SIGN IN Personnel directly involved with the procedure wore the appropriate PPE. Special Equipment: Yes (LetsCram system) Patient/Surrogate Stated/Verified: Patient name, Date of [...] Site: Right posterior sperior iliac crest . Brandfolder biopsy system was used. Using aseptic technique, [...] DATE: May 07, 2022 TIME: 2:19 PM [facility] 05-07-2022 Miscellaneous Notes Addended by: CHARLOTTE MURILLO LPN on: 05/07/2022 02:29 PM Modules accepted: Orders documented in this encounter [facility] 05-07-2022 Procedure note Associated Ord er(s): BONE MARROW BIOPSY Post-Procedure Diagnose(s): Fever, low grade BEDSIDE PROCEDURE NOTE BONE MARROW BIOPSY Performed by: Robert Weber DO Authorized by: Robert Weber DO Informed Consent Consent Obtained: Written [place] Protocol A moment to CARE was completed. SIGN IN Personnel directly involved with the procedure wore the appropriate PPE. Special Equipment: Yes ([employer] biopsy system) Patient/Surrogate Stated/Verified: Patient name, Date [...] Site: Right posterior sperior iliac crest . Brandfolder biopsy system was used. Using aseptic technique, [...] TIME: 2:19 PM documented in this encounter [facility] 05-07-2022 Nurse Note Pt discharged to home with shae [place] after BMBX with dry sterile dressing in place. No drainage noted. Post-procedure care reviewed with patient. Pt to call with any complaints of redness, swelling, increased or unresolved pain, bleeding, chills, bruising, and/or fever. Pt verbalized understanding. Charlotte Murillo LPN documented in this encounter [facility] 04-21-2022 Miscellaneous Notes reviewed percocet and ativan prior to procedure. Discussed what to wear. Charlotte Murillo LPN Please call patient in regards to medication questions prior to bone biopsy on 05/07 documented in this encounter [facility] 04-14-2022 Miscellaneous Notes Spoke with patient and [...] calls in please warm transfer her to [facility] Pss Thank you! documented in this encounter [facility] 04-11-2022 Note HNO ID: [id number] Author: Robert Weber, DO Service: ? 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 Liver demonstrated no mass. Echocardiogram at [facility] 02/21/2022: Left ventricular systolic function is normal. [...] fevers and fatigue for about a year. Lighting Technician temperatures from 03/26 through eMacs of 99.8 [...] Recent CTA asuncion (more content not included)... 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 Liver demonstrated no mass. Echocardiogram at [facility] 02/21/2022: Left ventricular systolic function is normal. [...] fevers and fatigue for about a year. Lighting Technician temperatures from 03/26 through eMacs of 99.8 [...] blood tinged. Has CT sinuses scheduled at [facility]. Resp: Daily dry cough. Denies wheeze and [...] lower extremity varicosities. BREAST: Nurse acted as mat cutter. Fine transverse scar central upper right breast. No concerning mass or nodule. Left breast exam no concerning mass or nodule. ABDOMEN: The abdomen is nondistended. No organomegaly. No tenderness. Extremities: She has mild symmetric swelling without pitting edema. SKIN: No jaundice or rash. No petechiae. NEUROLOGIC: washer meat II-XII are grossly intact. LABORATORY DATA: Component [...] Abs Lymph 1.00 - 4.00 k/uL 1.26 [place]% % 12.0 Abs [place] <0.87 k/uL 0.83 [place]% % 0.7 Abs [...] last checked 03/2021. I verified this through [facility] electronic record. ASSESSMENT/PLAN: (R50.9) Fever, unspecified fever [...] axillary sweating and fatigue. -pT1b pN0 Mx ER/WI positive, HER2 negative stage IA invasive ductal [...] procedure. Instructed her she will need a intermodal truck driver. Also advised her to avoid aspirin [...] Robert Weber DO documented in this encounter [facility] 04-07-2022 Miscellaneous Notes Noted. Thank you. Robert Weber DO Patient calling to update Dr. Weber that she had her CT scan completed at [facility] 04/01/22 and the results were to be faxed to Dr. Weber's office. Pt calling to ensure that Dr. Weber's office did receive it. Pt states if it was not received, that Dr. Weber should be able to access the record through [facility]. Pt states she will be calling Dr. Mckenna's office today to get his plan for her regarding the CT results, since she may have a low-grade chronic sinusitis causing her low-grade fevers. Pt states she will call back with update Mnady Person RN Noted. Thank you. Robert Weber DO I called and spoke to Kelli and she stated understanding of the below results. She stated that she had the CT scan at [facility] last week on 04/01/22, the same day [...] has the CT of the sinuses at [facility] and hears from Dr. Mckenna what his plan is since she may have a low-grade chronic sinusitis causing her low-grade fevers. If that is not the case, then we can consider proceeding with bone marrow biopsy. 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 Patient will pick up driver next week. documented in this encounter [facility] 04-03-2022 Note HNO ID: [id number] Author: RT Minnie(R) Service: Nuclear Medicine Author Type: Technologist Type: [...] 10:15 PATIENT DISCHARGED TO: Ambulatory patient, left [place] department area. A Diagnostic radioactive procedure has taken place, with no further precautions necessary other than routine body substance precautions. More information regarding radiation safety can be found using this link: [email or web address] [email or web address]%20Nuclear%20Medi cine%[email or web address] SIGNATURE: AURELIA Hartman PATIENT NAME: Kelli Monroy DATE: April 03, 2022 TIME: 11:05 AM PAGER/CONTACT #: [facility] 04-03-2022 History of Present illness Narrative RADIOLOGY [...] safety can be found using this link: [email or web address] %[email or web address].[email or web address] SIGNATURE: AURELIA Hartman PATIENT NAME: Kelli Monroy DATE: April 03, 2022 TIME: 11:05 AM PAGER/CONTACT #: documented in this encounter [facility] 04-02-2022 Miscellaneous Notes Pt notified. Can let her know the ultrasound of her legs showed no evidence of blood clots. Robert Weber DO documented in this encounter [facility] 04-01-2022 Note HNO ID: [id number] Author: Robert Weber DO Service: ? 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 Liver demonstrated no mass. Echocardiogram at [facility] 02/21/2022: Left ventricular systolic function is normal. [...] fevers and fatigue for about a year. Lighting Technician temperatures from 03/26 through eMacs of 99.8 [...] blood tinged. Has CT sinuses scheduled at [facility]. Resp: Daily dry cough. Denies wheeze and hemoptysis. Gilles (more content not included)... 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 Liver demonstrated no mass. Echocardiogram at [facility] 02/21/2022: Left ventricular systolic function is normal. [...] fevers and fatigue for about a year. Lighting Technician temperatures from 03/26 through eMacs of 99.8 [...] blood tinged. Has CT sinuses scheduled at [facility]. Resp: Daily dry cough. Denies wheeze and [...] lower extremity varicosities. BREAST: Nurse acted as mat cutter. Fine transverse scar central upper right breast. No concerning mass or nodule. Left breast exam no concerning mass or nodule. ABDOMEN: The abdomen is nondistended. No organomegaly. No tenderness. Extremities: She has mild symmetric swelling without pitting edema. SKIN: No jaundice or rash. No petechiae. NEUROLOGIC: washer meat II-XII are grossly intact. LABORATORY DATA: Component [...] last checked 03/2021. I verified this through [facility] electronic record. ASSESSMENT/PLAN: (R50.9) Fever, unspecified fever [...] axillary sweating and fatigue. -pT1b pN0 Mx ER/WI positive, HER2 negative stage IA invasive ductal [...] scheduled for CT of the sinuses at [facility] as ordered by her ENT physician. -I [...] which included preparing to see the patient, [id number] patient care, completing clinical documentation, obtaining and/or reviewing separately obtained history, performing a medically appropriate examination, counseling and educating the patient/family/caregiver, ordering medications, tests, or procedures, independently interpreting results (not separately reported), communicating results to the patient/family/caregiver, and care coordination (not separately reported). Robert Weber DO documented in this encounter [facility] 03-21-2022 Miscellaneous Notes Patient called back and confirmed understanding of appointment time change. 1st attempt: MC sent to inform pt of apt time change due to providers schedule changes documented in this encounter [facility] 03-18-2022 Miscellaneous Notes Left message on voicemail [...] 5 years ago. Thank you. Deyanira Mendez APRN.LENO SEWER Pt would like to discuss possible treatment again. She has had low grade fever for the last few months. No known reason for it. documented in this encounter [facility] 02-25-2022 Note HNO ID: [id number] Author: RT Karis(R) Service: ? Author Type: Staff Assistant Type: Progress Notes Filed: 02/25/2022 3:40 PM [...] DATE: February 25, 2022 TIME: 3:39 PM [facility] 02-25-2022 History of Present illness Narrative Radiology [...] TIME: 3:39 PM documented in this encounter [facility] 02-02-2022 Miscellaneous Notes February 02, 2022 PID: [id number] Kelli Chaitanya Monroy [address] [address] Dear Ms. Monroy, We are pleased to [...] report will be kept on file at [facility] as part of your permanent medical record and are available for your continuing care. Thank you for allowing us to help in meeting your health care needs. Sincerely, Dr. Lopez Interpreting Radiologist [facility] (Normal over 40) documented in this encounter [facility] 01-31-2022 History of Present illness Narrative Radiology [...] 2022 9:25 AM documented in this encounter [facility] 01-23-2022 History of Present illness Narrative Radiology [...] Not applicable SIGNED BY: Della Salazar RDMS Wilma January 23, 2022 11:05 AM documented in this encounter [facility] 12-26-2021 History of Present illness Narrative Kelli Monroy is a 71 year old female who presents for problem visit. HPI: Patient presents with urinary urgency & dysuria. Denies vaginitis symptoms but she has stable vaginal dryness. OB History T0 L3 SAB0 IAB0 Ectopic0 Multiple0 Live Births0 Sole Ruffer History LMP: Postmenopausal Age at Menarche: Age at First : Age at Menopause: Sole Ruffer History Comments: Sexual Activity: Not Currently; No [...] Problem Relation Age of Onset Heart Mother ND Heart Father ND Heart Sister bunddle block Hyperlipidemia Sister Hypertension [...] Andres Vasquez MD documented in this encounter [facility] 12-26-2021 Miscellaneous Notes Spoke with pt and appt scheduled for 3:40 this afternoon. Brunilda Min LPN Patient called stating she may have a UTI. she is experiencing burning and is asking if she needs appointment or testing. Please call patient and advise. documented in this encounter [facility] 07-30-2021 History of Present illness Narrative Chief [...] GI. Pt. feels that she is having half-way side effects from AI/tamoxifen. Appetite: Good. Energy [...] breast on February 11, 2016. Completed radiation 2/20/17. - No new concerning findings on exam. - Pt. did not tolerate AI/tamoxifen-stopped prematurely. Declined further AI/Tamoxifen therapy. - Mammogram per [employer]. - Follow up with [employer] as scheduled. - Follow up in one year. - Pt. aware to call office with any questions/concerns. The patient indicates understanding of these issues and agrees with the plan. All documentation from previous visit of 07/30/20-Dr. Chavarria was copied and pasted, documentation has been reviewed and edited as necessary for today's visit. Deyanira Mendez APRN.LUPE documented in this encounter [facility] 07-12-2021 History of Present illness Narrative Images [...] history is provided by the patient. No speech language pathology assistant was used. Rash Review of Systems Constitutional: [...] Problem Relation Age of Onset Heart Mother ND Heart Father ND Heart Sister bunddle block Hyperlipidemia Sister Hypertension [...] Adriana Vasquez APRN.LUPE documented in this encounter [facility] 06-27-2021 Miscellaneous Notes [employer] message sent to patient with information. Lesley Dey RN Yes, I do recommend yearly mammograms. See PSS note. Order was already placed 01/2021. Nikia Clifford RN Pt would like to have confirmation that Dr. Benavides would like her to have a mammogram this year. She knows she is not due until January. documented in this encounter [facility] 06-26-2021 History of Present illness Narrative Radiology [...] TIME: 1:31 PM documented in this encounter [facility] 06-01-2021 History of Present illness Narrative CC: [...] Problem Relation Age of Onset Heart Mother ND Heart Father ND Heart Sister bunddle block Hyperlipidemia Sister Hypertension [...] Patient agreeable to treatment plan. Adriana Vasquez APRN.LUPE documented in this encounter [facility] Evaluation + Plan note Future Appointments Appointment Date:05/30/2021 11:00:00 AM Scheduled Provider:NAHOMI LOBO Location:[facility] Appointment Type:CV OV Appointment Date:02/26/2022 02:00:00 PM Scheduled Provider:DONG BARBOSA [facility] Appointment Type:BS OV Follow Up [facility] Evaluation + Plan note Future Appointments Appointment Date:05/29/2022 10:30:00 AM Scheduled Provider:NAHOMI LOBO Location:[facility] Appointment Type:CV OV Appointment Date:02/26/2023 11:00:00 AM Scheduled Provider:THONG AGUILAR Location:[facility] Appointment Type:BS OV Future Scheduled TestsMA Mammo Screening Bilateral w/ Mic 01/26/23 [facility] Evaluation + Plan note Future Appointments Appointment Date:05/29/2022 10:30:00 AM Scheduled Provider:NAHOMI LOBO Location:[facility] Appointment Type:CV OV Appointment Date:02/26/2023 11:00:00 AM Scheduled Provider:THONG AGUILAR Location:[facility] Appointment Type:BS OV Diagnostic Tests PendingMISC Lab Send out (Blood Specimens) 03/03/22 Future Scheduled TestsMA Mammo Screening Bilateral w/ Mic 01/26/23 [facility] Evaluation + Plan note Future Appointments Appointment Date:12/04/2022 02:30:00 PM Scheduled Provider:NAHOMI LOBO Location:[facility] Appointment Type:CV OV Appointment Date:02/26/2023 11:00:00 AM Scheduled Provider:THONG AGUILAR Location:[facility] Appointment Type:BS OV Future Scheduled TestsMA Mammo Screening Bilateral w/ Mci 01/26/23 [facility] Diagnosis Discoloration of skin- Primary Dyschromia, unspecified [facility] Malignant neoplasm of upper-inner quadrant of right breast in female, estrogen receptor positive (HCC)- Primary documented in this encounter [facility] note* Diagnosis Urinary urgency- Primary Urgency of urination Dysuria documented in this encounter [facility] note* Diagnosis Fever, unspecified fever cause- Primary Coagulation defect (HCC) Other and unspecified coagulation defects Leg swelling Swelling of limb Malignant neoplasm of upper-inner quadrant of right breast in female, 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, estrogen and progesterone receptor positive (HCC) Bone pain Disorder of bone and cartilage, unspecified documented in this encounter [facility] note* Diagnosis Fever, unknown origin- Primary Fever, unspecified Personal history of malignant neoplasm of breast documented in this encounter [facility] note* Diagnosis Malignant neoplasm of upper-inner quadrant of right breast in female, estrogen receptor positive (HCC)- Primary documented in this encounter [facility] note* Diagnosis Fever, low grade- Primary Fever, unspecified documented in this encounter [facility] note* Diagnosis Dysuria- Primary Vaginal burning Other specified symptom associated with female genital organs documented in this encounter [facility] note* Diagnosis Hematuria, unspecified type- Primary Dysuria Vaginal dryness Other specified symptom associated with female genital organs Abnormal facial hair Hirsutism Low grade fever Fever, unspecified documented in this encounter [facility] note* Diagnosis Personal history of malignant neoplasm of breast- Primary Encounter for screening mammogram for high-risk patient documented in this encounter [facility] note* Diagnosis Encounter for screening mammogram for malignant neoplasm of breast Other screening mammogram documented in this encounter [facility] note* Diagnosis Fever, unspecified fever cause Malignant neoplasm of upper-inner quadrant of right breast in female, 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, estrogen and progesterone receptor positive (HCC) Bone pain Disorder of bone and cartilage, unspecified documented in this encounter [facility] note* Diagnosis Personal history of malignant neoplasm of breast Encounter for screening mammogram for high-risk patient documented in this encounter [facility] course Narrative No data available for this section [facility] Hospital Discharge instructions No data available for this section [facility] Progress note No data available for this section [facility] Reason for referral (narrative)* Diagnostic [...] Robert Weber DO [address] [place] [address] Molecular [facility] Functional [facility] [address] [place] [address] Referral ID Status Reason Start Date Expiration Date Visits Requested Visits Authorized [id number] Authorized Auto-Generat ed Referral 04/01/2022 05/01/2023 1 1 * Outpatient Procedure (Routine) - Authorized Specialty Diagnoses / Procedures Referred By Jessica t Referred To [facility] Diagnoses Fever, unspecified fever cause Leg swelling Procedures US LEG VEIN DVT EMERITA VAS LAB DUP-SCAN XTR VEINS COMPLETE BILATERAL STUDY Robert Weber DO [address] [place] [address] [facility] [place] [address] [place] [address] Referral ID Status Reason Start Date Expiration Date Visits Requested Visits Authorized [id number] Authorized Auto-Generat ed Referral 04/01/2022 04/01/2023 1 1 [facility] for referral (narrative)* Diagnostic Procedure Only (Routine) - Authorized Specialty Diagnoses / Procedures Referred By Jessica Referred To Contact [facility] Diagnoses Personal history of malignant neoplasm of breast Encounter for screening mammogram for high-risk patient Procedures DESIREE SCREENING W MIC SCREENING DIGITAL BREAST TOMOSYNTHESIS BI SCREENING MAMMOGRAPHY BI 2-VIEW BREAST INC Deyanira Morris APRN.LENO SEWER [address] [place] [address] [facility] [address] [place] [address] Referral ID Status Reason Start Date Expiration Date Visits Requested Visits Authorized [id number] Authorized Auto-Generat ed Referral 11/21/2022 12/21/2023 1 1 [facility] for referral (narrative)* Diagnostic Procedure Only (Routine) - Closed Specialty Diagnoses / Procedures Referred By Contac t Referred To Contact [facility] Diagnoses Encounter for screening mammogram for malignant neoplasm of breast Procedures DESIREE SCREENING W MIC SCREENING BREAST DGTL MIC UNI/BILAT ADD ON SCREENING MAMMOGRAPHY BI 2-VIEW BREAST INC CAD Prisca Rivera MD [address] [place] [address] [facility] [address] [place] [address] Referral ID Status Reason Start Date Expiration Date V isits Requested Visits Authorized [id number] Closed Auto-Generate d Referral 01/28/2021 02/27/2022 1 1 [facility] for referral (narrative)* Diagnostic Procedure Only [...] Robert Weber DO [address] [place] [address] Molecular [facility] Functional Imaging [address] [place] [id number] Referral ID Status Reason Start Date Expiration Date V isits Requested Visits Authorized [id number] Closed Auto-Generate d Referral 04/01/2022 05/01/2023 1 1 [facility] for visit Narrative* Diagnostic Procedure Only (Routine) - Closed Specialty Diagnoses / Procedures Referred By Jessica monique Referred To Contact [facility] Diagnoses Encounter for screening mammogram for malignant neoplasm of breast Procedures DESIREE SCREENING W MIC SCREENING BREAST DGTL MIC UNI/BILAT ADD ON SCREENING MAMMOGRAPHY BI 2-VIEW BREAST INC CAD Prisca Rivera MD [address] [place] [address] [facility] [address] [place] [address] Referral ID Status Reason Start Date Expiration Date V isits Requested Visits Authorized [id number] Closed Auto-Generate d Referral 01/28/2021 02/27/2022 1 1 [facility] for visit Narrative* Diagnostic Procedure Only [...] &/JOINT IMAGING WHOLE BODY Robert Weber, DO [address] [place] [address] Molecular & Functional Imaging [address] [place] [address] Referral ID Status Reason Start Date Expiration Date V isits Requested Visits Authorized [id number] Closed Auto-Generate d Referral 04/01/2022 05/01/2023 1 1 [facility] for visit Narrative* Diagnostic Procedure Only (Routine) - Closed Specialty Diagnoses / Procedures Referred By Jessica monique Referred To Contact [facility] Diagnoses Personal history of malignant neoplasm of breast Encounter for screening mammogram for high-risk patient Procedures DESIREE SCREENING W MIC SCREENING DIGITAL BREAST TOMOSYNTHESIS BI SCREENING MAMMOGRAPHY BI 2-VIEW BREAST INC CAD Deyanira Mendez APRN.LENO SEWER [address] [place] [address] [facility] [address] [place] [address] Referral ID Status Reason Start Date Expiration Date V isits Requested Visits Authorized [id number] Closed Auto-Generate d Referral 11/21/2022 12/21/2023 1 1 [facility] Health Concerns Infection Onset Date Last Indicated [...] or prosecute any alcohol or drug abuse patient.[facility] the event this information is protected by the Federal Confidentiality of Alcohol and Drug Abuse Patient Records regulations: The Federal rules restrict any use of the information to criminally investigate or prosecute any alcohol or drug abuse patient.[facility] the event this information is protected by the Federal Confidentiality of Alcohol and Drug Abuse Patient Records regulations: The Federal rules restrict any use of the information to criminally investigate or prosecute any alcohol or drug abuse patient.[facility] the event this information is protected by the Federal Confidentiality of Alcohol and Drug Abuse Patient Records regulations: The Federal rules restrict any use of the information to criminally investigate or prosecute any alcohol or drug abuse patient.[facility] the event this information is protected by the Federal Confidentiality of Alcohol and Drug Abuse Patient Records regulations: The Federal rules restrict any use of the information to criminally investigate or prosecute any alcohol or drug abuse patient.[facility] the event this information is protected by the Federal Confidentiality of Alcohol and Drug Abuse Patient Records regulations: The Federal rules restrict any use of the information to criminally investigate or prosecute any alcohol or drug abuse patient.[facility] the event this information is protected by the Federal Confidentiality of Alcohol and Drug Abuse Patient Records regulations: The Federal rules restrict any use of the information to criminally investigate or prosecute any alcohol or drug abuse patient.[facility] Township[facility] the event this information is protected by the Federal Confidentiality of Alcohol and Drug Abuse Patient Records regulations: The Federal rules restrict any use of the information to criminally investigate or prosecute any alcohol or drug abuse patient.[facility] the event this information is protected by the Federal Confidentiality of Alcohol and Drug Abuse Patient Records regulations: The Federal rules restrict any use of the information to criminally investigate or prosecute any alcohol or drug abuse patient.[facility] Township[facility] the event this information is protected by the Federal Confidentiality of Alcohol and Drug Abuse Patient Records regulations: The Federal rules restrict any use of the information to criminally investigate or prosecute any alcohol or drug abuse patient.[facility] Township[facility] the event this information is protected by the Federal Confidentiality of Alcohol and Drug Abuse Patient Records regulations: The Federal rules restrict any use of the information to criminally investigate or prosecute any alcohol or drug abuse patient.[facility] Township[facility] the event this information is protected by the Federal Confidentiality of Alcohol and Drug Abuse Patient Records regulations: The Federal rules restrict any use of the information to criminally investigate or prosecute any alcohol or drug abuse patient.[facility] Township[facility] the event this information is protected by the Federal Confidentiality of Alcohol and Drug Abuse Patient Records regulations: The Federal rules restrict any use of the information to criminally investigate or prosecute any alcohol or drug abuse patient.[facility] Township[facility] the event this information is protected by the Federal Confidentiality of Alcohol and Drug Abuse Patient Records regulations: The Federal rules restrict any use of the information to criminally investigate or prosecute any alcohol or drug abuse patient.[facility] Township[facility] the event this information is protected by the Federal Confidentiality of Alcohol and Drug Abuse Patient Records regulations: The Federal rules restrict any use of the information to criminally investigate or prosecute any alcohol or drug abuse patient.[facility] Township[facility] the event this information is protected by the Federal Confidentiality of Alcohol and Drug Abuse Patient Records regulations: The Federal rules restrict any use of the information to criminally investigate or prosecute any alcohol or drug abuse patient.[facility] Township[facility] the event this information is protected by the Federal Confidentiality of Alcohol and Drug Abuse Patient Records regulations: The Federal rules restrict any use of the information to criminally investigate or prosecute any alcohol or drug abuse patient.[facility] Township[facility] the event this information is protected by the Federal Confidentiality of Alcohol and Drug Abuse Patient Records regulations: The Federal rules restrict any use of the information to criminally investigate or prosecute any alcohol or drug abuse patient.[facility] Township[facility] the event this information is protected by the Federal Confidentiality of Alcohol and Drug Abuse Patient Records regulations: The Federal rules restrict any use of the information to criminally investigate or prosecute any alcohol or drug abuse patient.[facility] Township[facility] the event this information is protected by the Federal Confidentiality of Alcohol and Drug Abuse Patient Records regulations: The Federal rules restrict any use of the information to criminally investigate or prosecute any alcohol or drug abuse patient.[facility] Township[facility] the event this information is protected by the Federal Confidentiality of Alcohol and Drug Abuse Patient Records regulations: The Federal rules restrict any use of the information to criminally investigate or prosecute any alcohol or drug abuse patient.[facility] Township[facility] the event this information is protected by the Federal Confidentiality of Alcohol and Drug Abuse Patient Records regulations: The Federal rules restrict any use of the information to criminally investigate or prosecute any alcohol or drug abuse patient.[facility] Township[facility] the event this information is protected by the Federal Confidentiality of Alcohol and Drug Abuse Patient Records regulations: The Federal rules restrict any use of the information to criminally investigate or prosecute any alcohol or drug abuse patient.[facility] Township[facility] the event this information is protected by the Federal Confidentiality of Alcohol and Drug Abuse Patient Records regulations: The Federal rules restrict any use of the information to criminally investigate or prosecute any alcohol or drug abuse patient.[facility] Township[facility] the event this information is protected by the Federal Confidentiality of Alcohol and Drug Abuse Patient Records regulations: The Federal rules restrict any use of the information to criminally investigate or prosecute any alcohol or drug abuse patient.[facility] Township[facility] the event this information is protected by the Federal Confidentiality of Alcohol and Drug Abuse Patient Records regulations: The Federal rules restrict any use of the information to criminally investigate or prosecute any alcohol or drug abuse patient.[facility] Township[facility] the event this information is protected by the Federal Confidentiality of Alcohol and Drug Abuse Patient Records regulations: The Federal rules restrict any use of the information to criminally investigate or prosecute any alcohol or drug abuse patient.[facility] Township[facility] the event this information is protected by the Federal Confidentiality of Alcohol and Drug Abuse Patient Records regulations: The Federal rules restrict any use of the information to criminally investigate or prosecute any alcohol or drug abuse patient.[facility] Township[facility] the event this information is protected by the Federal Confidentiality of Alcohol and Drug Abuse Patient Records regulations: The Federal rules restrict any use of the information to criminally investigate or prosecute any alcohol or drug abuse patient.[facility] Township[facility] the event this information is protected by the Federal Confidentiality of Alcohol and Drug Abuse Patient Records regulations: The Federal rules restrict any use of the information to criminally investigate or prosecute any alcohol or drug abuse patient.[facility] Township[facility] the event this information is protected by the Federal Confidentiality of Alcohol and Drug Abuse Patient Records regulations: The Federal rules restrict any use of the information to criminally investigate or prosecute any alcohol or drug abuse patient.[facility] Reason for Visit (unrecogniz ed section and [...] Care Teams (unrecognized sec tion and content) Corporate Director Of Pharmacy Relationship Specialty Start Date End Date Angel Fuller MD [address] [place] [address] PCP - General Internal Medicine 05/06/18 Yue Bravo MD, [address] [place], [place] [id number] Physician Radiation Oncology 03/06/16 Corporate Director Of Pharmacy Relationship Specialty Start Date End Date Angel Fuller MD [address] [place] [address] PCP - General Internal Medicine 05/06/18 Yue Bravo MD, [address] [facility] [place], [place] [id number] Physician Radiation Oncology 03/06/16 Corporate Director Of Pharmacy Relationship Specialty Start Date End Date Angel Fuller MD [address] [place] [address] PCP - General Internal Medicine 05/06/18 Yue Bravo MD, [address] [place] [address] Physician Radiation Oncology 03/06/16 Corporate Director Of Pharmacy Relationship Specialty Start Date End Date Angel Fuller MD [address] [place] [address] PCP - General Internal Medicine 05/06/18 Yue Bravo MD, [address] [place] [address] Physician Radiation Oncology 03/06/16 Corporate Director Of Pharmacy Relationship Specialty Start Date End Date Angel Fuller MD [address] [place] [address] PCP - General Internal Medicine 05/06/18 Yue Bravo MD, [address] [place] [address] Physician Radiation Oncology 03/06/16 Corporate Director Of Pharmacy Relationship Specialty Start Date End Date Angel Fuller MD [address] [place] [address] PCP - General Internal Medicine 05/06/18 Yue Bravo MD, [address] [place] [address] Physician Radiation Oncology 03/06/16 Corporate Director Of Pharmacy Relationship Specialty Start Date End Date Angel Fuller MD [address] [place] [address] PCP - General Internal Medicine 05/06/18 Yue Bravo MD, [address] [place] [address] Physician Radiation Oncology 03/06/16 Corporate Director Of Pharmacy Relationship Specialty Start Date End Date Angel Fuller MD [address] [place] [address] PCP - General Internal Medicine 05/06/18 Yue Bravo MD, [address] [place] [address] Physician Radiation Oncology 03/06/16 Deyanira Mendez, SUPERVISOR TOY ASSEMBLY.LENO SEWER [address] [place] [address] Hematology/Oncology 03/20/22 Corporate Director Of Pharmacy Relationship Specialty Start Date End Date Angel Fuller MD [address] [place] [address] PCP - General Internal Medicine 05/06/18 Yue Bravo MD, [address] [place] [address] Physician Radiation Oncology 03/06/16 Deyanira Mendez, SUPERVISOR TOY ASSEMBLY.LENO SEWER [address] [place] [address] Hematology/Oncology 03/20/22 Corporate Director Of Pharmacy Relationship Specialty Start Date End Date Angel Fuller MD [address] [place] [address] PCP - General Internal Medicine 05/06/18 Yue Bravo MD, [address] [place] [address] Physician Radiation Oncology 03/06/16 Deyanira Mendez, SUPERVISOR TOY ASSEMBLY.LENO SEWER [address] [place] [address] Hematology/Oncology 03/20/22 Corporate Director Of Pharmacy Relationship Specialty Start Date End Date Angel Fuller MD [address] [place] [address] PCP - General Internal Medicine 05/06/18 Yue Bravo MD, [address] [place] [address] Physician Radiation Oncology 03/06/16 Deyanira Mendez, SUPERVISOR TOY ASSEMBLY.LENO SEWER [address] [place] [address] Hematology/Oncology 03/20/22 Corporate Director Of Pharmacy Relationship Specialty Start Date End Date Angel Fuller MD [address] [place] [address] PCP - General Internal Medicine 05/06/18 Yue Bravo MD, [address] [place] [address] Physician Radiation Oncology 03/06/16 Deyanira Mendez, SUPERVISOR TOY ASSEMBLY.LENO SEWER [address] [place] [address] Hematology/Oncology 03/20/22 Corporate Director Of Pharmacy Relationship Specialty Start Date End Date Angel Fuller MD [address] [place] [address] PCP - General Internal Medicine 05/06/18 Yue Bravo MD, [address] [place] [address] Physician Radiation Oncology 03/06/16 Deyanira Mendez, SUPERVISOR TOY ASSEMBLY.LENO SEWER [address] [place] [address] Hematology/Oncology 03/20/22 Irena Gonzalez, LACE AND TEXTILES RESTORER [address] [place] [address] Auto Service Station Attendant Hematology/Oncology 04/16/22 Corporate Director Of Pharmacy Relationship Specialty Start Date End Date Angel Fuller MD [address] [place] [address] PCP - General Internal Medicine 05/06/18 Yue Bravo MD, [address] [place] [address] Physician Radiation Oncology 03/06/16 Deyanira Mendez, SUPERVISOR TOY ASSEMBLY.LENO SEWER [address] [place] [address] Hematology/Oncology 03/20/22 Irena Gonzalez, LACE AND TEXTILES RESTORER [address] [place] [address] Auto Service Station Attendant Hematology/Oncology 04/16/22 Corporate Director Of Pharmacy Relationship Specialty Start Date End Date Angel Fuller MD [address] [place] [address] PCP - General Internal Medicine 05/06/18 Yue Bravo MD, [address] [place] [address] Physician Radiation Oncology 03/06/16 Deyanira Mendez, SUPERVISOR TOY ASSEMBLY.LENO SEWER [address] [place] [address] Hematology/Oncology 03/20/22 Irena Gonzalez, LACE AND TEXTILES RESTORER [address] [place] [address] Auto Service Station Attendant Hematology/Oncology 04/16/22 Corporate Director Of Pharmacy Relationship Specialty Start Date End Date Angel Fuller MD [address] [place] [address] PCP - General Internal Medicine 05/06/18 Yue Bravo MD, [address] [place] [address] Physician Radiation Oncology 03/06/16 Deyanira Mendez, ELENA.LENO SEWER [address] [place] [address] Hematology/Oncology 03/20/22 Irena Gonzalez LISW [address] [place] [address] Auto Service Station Attendant Hematology/Oncology 04/16/22 Millie Mcclellan MD [address] [facility] [place] [address] Infectious Diseases 05/21/22 Lorenzo Montana [address] [place] [address] Orthopedics 05/21/22 Corporate Director Of Pharmacy Relationship Specialty Start Date End Date Angel Fuller MD [address] Counts include 234 beds [place] [address] PCP - General Internal Medicine 05/06/18 Yue Bravo MD, [address] [place] [address] Physician Radiation Oncology 03/06/16 Deyanira Mendez, SUPERVISOR TOY ASSEMBLY.LENO SEWER [address] [place] [address] Hematology/Oncology 03/20/22 Irena Gonzalez LISW [address] [place] [address] Auto Service Station Attendant Hematology/Oncology 04/16/22 Millie Mcclellan MD [address] [facility] [place] [address] Infectious Diseases 05/21/22 Lorenzo Montana [address] [place] [address] Orthopedics 05/21/22 Millie Mcclellan MD [address] [place] [place] [address] Referring Infectious Diseases 06/19/22 Corporate Director Of Pharmacy Relationship Specialty Start Date End Date Angel Fuller MD [address] [place] [address] PCP - General Internal Medicine 05/06/18 Yue Bravo MD, [address] [place] [address] Physician Radiation Oncology 03/06/16 Deyanira Mendez APRN.LENO SEWER [address] [place] [address] Hematology/Oncology 03/20/22 Irena Gonzalez LISW [address] [place] [address] Auto Service Station Attendant Hematology/Oncology 04/16/22 Millie Mcclellan MD [address] [facility] [place] [address] Infectious Diseases 05/21/22 Lorenzo Montana [address] [facility] [place] [address] Orthopedics 05/21/22 Millie Mcclellan MD [address] [facility] [place] [address] Referring Infectious Diseases 06/19/22 Corporate Director Of Pharmacy Relationship Specialty Start Date End Date Angel Fuller MD [address] [place] [address] PCP - General Internal Medicine 05/06/18 Yue Bravo MD, [address] [place] [address] Physician Radiation Oncology 03/06/16 Deyanira Mendez, ELENA.LENO SEWER [address] [place] [address] Hematology/Oncology 03/20/22 Irena Gonzalez LISW [address] [place] [address] Auto Service Station Attendant Hematology/Oncology 04/16/22 Millie Mcclellan MD [address] [facility], [place] [address] Infectious Diseases 05/21/22 Lorenzo Montana [address] [place] [address] Orthopedics 05/21/22 Millie Mcclellan MD [address] [place] [place] [address] Referring Infectious Diseases 06/19/22 Corporate Director Of Pharmacy Relationship Specialty Start Date End Date Angel Fuller MD [address] [place] Counts include [address] beds [place] [address] PCP - General Internal Medicine 05/06/18 Yue Bravo MD, MD [address] [place] [address] Physician Radiation Oncology 03/06/16 Deyanira Mendez, ELENA.LENO SEWER [address] [place] [address] Hematology/Oncology 03/20/22 Irena Gonzalez LISW [address] [place] [address] Auto Service Station Attendant Hematology/Oncology 04/16/22 Millie Mcclellan MD [address] [facility] [place] [address] Infectious Diseases 05/21/22 Lorenzo Montana [address] [place] [address] Orthopedics 05/21/22 Millie Mcclellan MD [address] [place] [address] Referring Infectious Diseases 06/19/22 Corporate Director Of Pharmacy Relationship Specialty Start Date End Date Angel Fuller MD [address] [place] [address] PCP - General Internal Medicine 05/06/18 Yue Bravo MD, [address] [place] [address] Physician Radiation Oncology 03/06/16 Deyanira Mendez APRN.CNP [address] [place] [address] Hematology/Oncology 03/20/22 Irena Gonzalez LISW [address] [place] [address] Auto Service Station Attendant Hematology/Oncology 04/16/22 Millie Mcclellan MD [address] [place] [address] Infectious Diseases 05/21/22 Lorenzo Montana [address] [facility] [address] [place] [address] Orthopedics 05/21/22 Millie Mcclellan MD [address] [place] [address] Referring Infectious Diseases 06/19/22 Corporate Director Of Pharmacy Relationship Specialty Start Date End Date Angel Fuller MD [address] [place] [address] PCP - General Internal Medicine 05/06/18 Yue Bravo MD, [address] [place], [place] [address] [phone] Physician Radiation Oncology 03/06/16 Corporate Director Of Pharmacy Relationship Specialty Start Date End Date Angel Fuller MD [address] [place] [address] PCP - General Internal Medicine 05/06/18 Yue Bravo MD, [address] [place], [place] [address] [phone] Physician Radiation Oncology 03/06/16 Corporate Director Of Pharmacy Relationship Specialty Start Date End Date Angel Fuller MD [address] [place] [address] PCP - General Internal Medicine 05/06/18 Yue Bravo MD, [address] [place], [place] [address] [phone] Physician Radiation Oncology 03/06/16 Corporate Director Of Pharmacy Relationship Specialty Start Date End Date Angel Fuller MD [address] [place] [address] PCP - General Internal Medicine 05/06/18 Yue Bravo MD, MD [address] [place], [place] [address] [phone] Physician Radiation Oncology 03/06/16 Deyanira Mendez SUPERVISOR TOY ASSEMBLY.LENO SEWER [address] [place] [address] Hematology/Oncology 03/20/22 Corporate Director Of Pharmacy Relationship Specialty Start Date End Date Angel Fuller MD [address] [place] [address] PCP - General Internal Medicine 05/06/18 Yue Bravo MD, [address] [place] [address] Physician Radiation Oncology 03/06/16 Deyanira Mendez, SUPERVISOR TOY ASSEMBLY.LENO SEWER [address] [place] [address] Hematology/Oncology 03/20/22 Corporate Director Of Pharmacy Relationship Specialty Start Date End Date Angel Fuller MD [address] [place] [address] PCP - General Internal Medicine 05/06/18 Yue Bravo MD, [address] [place] [address] Physician Radiation Oncology 03/06/16 Deyanira Mendez, SUPERVISOR TOY ASSEMBLY.LENO SEWER [address] [place] [address] Hematology/Oncology 03/20/22 Irena Gonzalez LISW [address] [place] [address] Auto Service Station Attendant Hematology/Oncology 04/16/22 Millie Mcclellan MD [address] [place], [place] [address] Infectious Diseases 05/21/22 Lorenzo Montana [address] [place] [address] Orthopedics 05/21/22 Millie Mcclellan MD [address] [place] [address] Referring Infectious Diseases 06/19/22 Care Team (unrecognized sect ion and content) Care Team Personnel Name: ANGEL FULLER MD Position: Physician Member Role: Primary Care Physician Address: Address: [address] [place], [place] [address] [address] Care Team Related Persons Name: ROBERTO BURGER Name: ROBERTO BURGER Name: MYLES MONROY Care Team Personnel Name: ANGEL FULLER MD Position: Physician Member Role: Primary Care Physician Address: Address: [address] [place] [address] [place] [address] Care Team Related Persons Name: ROBERTO BURGER Name: ROBERTO BURGER Name: MYLES MONROY INFORMATION SOURCE (unrecogn ized section and content) DATE CREATED AUTHOR AUTHOR'S ORGANIZ ATION 03/10/2023 [facility] ([place]) FOR RECORDS PERTAINING TO PATIENTS WHO ARE [...] BE BASED ON THE PRIMARY CLINICAL RECORDS. [facility] [address] [facility]. provides no warranty or guarantee of the accuracy or completeness of information in this document.
[2023-03-20 11:04] VITALS: BP 137/71; PULSE 67; RESP 16; TEMP 36.4; O2SAT 97
== END 2023-03-20 10:15 | disposition home or self-care (01) ==
LOC: MEDOUTP 10:16
PROVIDERS: PCP Internal Medicine; Referring Provider Internal Medicine Endocrinology, Diabetes & Metabolism; Visit Provider Internal Medicine Endocrinology, Diabetes & Metabolism
DX: M81.0 Age-related osteoporosis without current pathological fracture (principal)
CPT/HCPCS: 96365; A4216; J3489

== ENCOUNTER → 2023-05-14 | Outpatient (CLI) | payer MEDICARE, OTHER, SELFPAY ==
--- NOTE | 2023-05-14 13:26 | MRI_ITS ---
EXAM: MR THORACIC SPINE WITHOUT INTRAVENOUS CONTRAST CLINICAL INDICATION: RADICULOPATHY TECHNIQUE: Multiplanar and multisequence MR images of the thoracic spine without intravenous contrast. COMPARISON: No relevant prior studies available. FINDINGS: VERTEBRAE: Minimal thoracic spondylosis. Mild heterogeneous bone density without dominant exception of well-circumscribed high signal intensity focus of roughly 1.1 cm x 0.9 cm in the left posterior T2 body on T1 and T2 images, likely focal fat or hemangioma. No fracture. Normal alignment. There is preservation of the normal thoracic kyphosis. No scoliosis. DISCS/SPINAL CANAL/NEURAL FORAMINA: Unremarkable. Normal disc height and morphology. Normal spinal canal and neuroforamina. SPINAL CORD: Unremarkable. Normal in signal and morphology. Normal conus medullaris. SOFT TISSUES: Unremarkable. VASCULATURE: Unremarkable. Normal descending thoracic aorta caliber. LUNGS AND PLEURAL SPACES: Unremarkable as visualized. No mass. No pneumothorax. No pleural effusions. MRI/Spine Thoracic (Routine) IMPRESSION: No specific acute abnormality. No spinal stenosis or cord impingement. Minimally heterogeneous bone density. Electronically Signed: Mary Thacker MD at 1:22 EDT ,
== END | disposition home or self-care (01) ==
LOC: MRI 13:16
PROVIDERS: PCP Internal Medicine; Referring Provider Anesthesiology Pain Medicine; Visit Provider Anesthesiology Pain Medicine
DX: M54.14 Radiculopathy, thoracic region (principal)
CPT/HCPCS: 72146

== ENCOUNTER → 2023-06-17 | Outpatient (CLI) | payer MEDICARE, OTHER, SELFPAY | END | disposition home or self-care (01) | LOC: CVS 08:46 | PROVIDERS: PCP Internal Medicine; Referring Provider Internal Medicine Cardiovascular Disease; Visit Provider Internal Medicine Cardiovascular Disease | DX: R03.0 Elevated blood-pressure reading, without diagnosis of hypertension (principal) | CPT/HCPCS: 93788 ==

== ENCOUNTER → 2023-06-24 | Outpatient (CLI) | payer MEDICARE, OTHER, SELFPAY | END | disposition home or self-care (01) | LOC: PSN 09:12 | PROVIDERS: PCP Internal Medicine; Referring Provider Internal Medicine Cardiovascular Disease; Visit Provider Internal Medicine Cardiovascular Disease | DX: R00.2 Palpitations (principal) | CPT/HCPCS: 93225; 93226 ==

== ENCOUNTER 2023-07-23 15:48 | Emergency (ER) | payer MEDICARE, OTHER, SELFPAY ==
[2023-07-23 15:50] VITALS: BP 189/83; PULSE 95; RESP 18; TEMP 36.2; O2SAT 99; BMI 26.2
--- NOTE | 2023-07-23 15:58 | EDS_ITS ---
HPI History of Present Illness Chief Complaint: Hypertension Informant: patient Onset/Context/Timing Onset: Days Context: Gradual Onset Timing: Intermittent Quality: Something stuck Location: Lower substernal area Worsened by: Nothing Relieved by: Nothing Narrative Narrative: Patient presents with elevated blood pressure that became worse today. Patient states it has been going up and down over the last several days. Patient states she had her blood pressure medication changed recently. Patient states she was started on Norvasc 5 mg. Patient states she was feeling weak and lightheaded with this. Patient states that it was decreased to 2.5 mg yesterday. Patient states that her blood pressure this morning was 120/69. Patient states she has been having some palpitations with her elevation in her blood pressure. Patient states she has a history of an arrhythmia and is has gotten worse. Patient admits to some nausea. Patient states it feels like there is something stuck in my chest. Patient admits to a mild cough. Patient denies any vomiting. Patient denies any difficulty swallowing. Patient states her pain does go into her back. Patient denies any headaches or neck pain. [facility] Medical History Atherosclerosis of coronary artery of [place] heart without angina pectoris Fibromyalgia Menopausal hot flushes Symptoms of gastroesophageal reflux Hypertension Hyperparathyroidism Paresthesia Skin cancer GERD (gastroesophageal reflux disease) Osteopenia Osteoarthritis Heart murmur Hormone deficiency High cholesterol Headache Gastrointestinal problem Cataracts, bilateral Breast cancer Breast lump UTI (urinary tract infection) Back problem Arthritis Hx of breast cancer Home Medications ?Medication ?Instructions ?Recorded ?Last Taken ?Type zoledronic acid 5 mg/100 mL in 1 ea .Route ONCE #100 mL 02/19/23 Unknown Rx mannitol 5 %-water intravenous piggybck calcium 300 See Rx Instructions PO .COMPLEX 05/11/23 Unknown History mg-chondroitin,collagen,glycosam 1,700 mg/scoop oral powdr (Beyond Bone Broth) cyanocobalamin (vitamin B-12) 1,000 mcg PO DAILY 05/11/23 Unknown History 1,000 mcg capsule acetaminophen 500 mg tablet 1,000 mg PO BID PRN Pain 06/10/23 Unknown History (Tylenol Extra Strength) cholecalciferol (vitamin D3) 50 50 mcg PO DAILY 06/10/23 Unknown History mcg (2,000 unit) capsule lactobacillus combo no.11 15 1 cap PO DAILY 06/10/23 Unknown History billion cell sprinkle capsule (Probiotic) amlodipine 2.5 mg tablet 2.5 mg PO DAILY Dose decreased 07/10/23 Unknown Rx today, pills crumble when cut #30 tabs Allergy/AdvReac Type Severity Reaction Status Date / Time duloxetine (From Cymbalta) AdvReac Mild dizziness Verified 07/23/23 15:50 Family History Father Heart disease Mother Heart disease Osteoporosis Thyroid disorder Brother Heart disease Hypertension Hypercholesterolemia Daughter Cancer Sister Arthritis Hypertension Hypercholesterolemia Osteoporosis Thyroid disorder Surgical History History of left heart catheterization (08/16/20) History of endoscopy History of colonoscopy History of lumpectomy Hx of cataract surgery H/O: hysterectomy Social History Smoking Status: Never smoker alcohol intake: never substance use type: does not use what type of physical activity do you participate in: walking and weight training frequency: 1-2 times per week ROS ROS ED Constitutional Constitutional ED: Denies chills or fever(s) Eyes Eyes: Reports blurry vision; Denies change in vision ENT ENT ED: Denies rhinorrhea or sore throat Cardiovascular Cardiovascular: Reports chest pain and palpitations Respiratory/Chest Respiratory/Chest: Reports cough; Denies dyspnea Gastrointestinal Gastrointestinal: Reports nausea; Denies vomiting Genitourinary Genitourinary ED: Denies dysuria or hematuria Musculoskeletal Musculoskeletal: Reports back pain; Denies neck pain Integumentary Denies abscess or rash Neurologic Neurologic: Denies headache(s) or weakness Allergic/Immunologic Allergic/Immunologic ED: Denies mouth swelling or urticaria EXAM Physical Exam Const Vital Signs: 07/23/23 15:50 07/23/23 16:25 07/23/23 17:34 Temperature 97.2 F L Temperature Source Temporal Pulse Rate 95 93 Respiratory Rate 18 18 Respiratory Effort Normal Respiratory Pattern Normal Blood Pressure 189/83 H 151/80 H Blood Pressure Mean 118 103 Pulse Ox 99 98 Oxygen Delivery Method Room Air Room Air 07/23/23 18:30 Temperature Temperature Source Pulse Rate 88 Respiratory Rate 18 Respiratory Effort Respiratory Pattern Blood Pressure 172/83 H Blood Pressure Mean 112 Pulse Ox 96 Oxygen Delivery Method Room Air Positive well nourished and well developed General Appearance ED: well developed and NAD HEENT Reports moist mucous membranes Neck supple and no JVD Resp normal respiratory effort and clear to auscultation bilaterally Cardio regular rate and regular rhythm GI non-tender and non-distended Palpation: soft Neuro oriented x3, CN's II-XII intact bilaterally and no sensory deficits noted Sensorium / Orientation: alert Motor Exam: strength 5/5 throughout Psych mental status grossly normal MDM MDM MDM Narrative Medical decision making narrative: Differential diagnosis includes cardiac dysrhythmia, cardiac ischemia, electrolyte abnormality, uncontrolled hypertension, hypertensive urgency, hypertensive emergency, GERD, pneumonia, and anxiety. EKG will be obtained to assess for cardiac dysrhythmia and cardiac ischemia. Chest x-ray will be obtained to assess for pneumonia and widened mediastinum. CBC will be obtained to assess for leukocytosis and anemia. Basic metabolic profile will be obtained to assess for electrolyte abnormality and renal function. High-sensitivity troponin will be obtained to assess for cardiac ischemia. Lab Data Attestation: I reviewed the patient's lab results. Lab results narrative: CBC was reviewed and was within normal limits. Basic metabolic profile was reviewed and was within normal limits. High-sensitivity troponin was reviewed and was normal at 4. Urinalysis was reviewed. There is no evidence of urinary tract infection or hematuria. Labs: Laboratory Results - last 24 hr 07/23/23 16:42 WBC 7.2 RBC 4.09 L Hgb 12.6 Hct 38.2 MCV 93.4 MCH 30.8 MCHC 33.0 RDW Std Deviation 41.5 RDW Coeff of Shef[place] 12.1 Plt Count 325 MPV 8.8 Immature Gran % (Auto) 0.300 Neut % (Auto) 78.5 H Lymph % (Auto) 11.5 L [place] % (Auto) 8.7 Eos % (Auto) 0.4 Baso % (Auto) 0.6 Absolute Neuts (auto) 5.7 Absolute Lymphs (auto) 0.83 Nucleated RBC % 0 Sodium 135 L Potassium 3.4 L Chloride 103 Carbon Dioxide 27.0 Anion Gap 5 BUN 7 Creatinine 0.68 Estim Creat Clear Calc 58.42 Est GFR (MDRD) Af Amer 109 Est GFR (MDRD) Non-Af 90 BUN/Creatinine Ratio 10.3 Glucose 107 H Calcium 9.1 Troponin I High Sens 4 Urine Color Yellow Urine Clarity Clear Urine pH 7.0 Ur Specific [place] 1.005 Urine Protein Negative Urine Glucose (UA) Normal Urine Ketones Negative Urine Occult Blood Negative Urine Nitrite Negative Urine Bilirubin Negative Urine Urobilinogen Normal Ur Leukocyte Esterase Negative Urine RBC 0 SEEN Urine WBC 0 SEEN Ur Squamous Epith Cells 0 SEEN Urine Bacteria 0 SEEN Urine Mucus 0 SEEN Radiography Chest X-Ray - ED: 2 View, Read by ED Physician, Read by Radiologist and Chronic Changes Diagnostic Testing: Clinical Impression(s) from Imaging Studies Chest X-Ray 07/23/23 16:49 IMPRESSION: No acute cardiopulmonary disease. Electronically Signed: Heriberto Murillo MD at 17:33 EDT , PA and lateral chest x-ray was obtained. There are 2 views. On my independent interpretation, lung velásquez are clear. There is normal cardiac silhouette. B renetta thorax is normal. There is no acute process noted. Radiologist also interpreted the x-ray and agrees. EKG Initial EKG: Attestation: I personally reviewed and interpreted this EKG as follows: Interpretation: Sinus Rhythm (73) and No Acute Injury Pattern Comments: EKG was obtained. On my independent interpretation, it showed a normal sinus rhythm with a rate of 73. MN interval, QRS interval, and QTc intervals were all normal. [place] was normal. There are no acute ST or T wave changes. Prior EKG tracings: available for review Prior: Unchanged (06/10/2023) Treatment and Re-Evaluation :: Patient was given a GI cocktail. Patient was advised of her findings. Patient was instructed to continue to monitor her blood pressures. Patient's blood pressure has improved here in the emergency department. Patient was advised that her blood pressure does not need treated emergently at this time. Patient was instructed to follow-up with her color consultant in 3 to 5 days for possible medication adjustments. Patient understood and was agreeable with the plan. All questions were answered. Discharge Plan Triage Chief Complaint: Hypertension ED Provider: Jefry Mir Dx/Rx/DC Orders Clinical Impression: Hypertension, GERD (gastroesophageal reflux disease), Heart palpitations Instructions: ED Hypertension, Established, ED Palpitations Prescriptions: No Action acetaminophen [Tylenol Extra Strength] 500 mg tablet 1,000 mg PO BID PRN (Reason: Pain) zoledronic rgts-arhhsweh-aetgb 5 mg/100 mL piggyback 1 ea .Route ONCE Qty: 100 0RF Rx Instructions: onceinfuse over 20 minutes cyanocobalamin (vitamin B-12) 1,000 mcg capsule 1,000 mcg PO DAILY Beyond Bone Broth 300 mg calcium- 1,700 mg/scoop powder See Rx Instructions PO .COMPLEX Rx Instructions: 2 tablespoons BID orally; cholecalciferol (vitamin D3) 50 mcg (2,000 unit) capsule 50 mcg PO DAILY Probiotic 15 billion cell capsule, sprinkle 1 cap PO DAILY Rx Instructions: do not crush/chew/cut; swallow whole OR may open and sprinkle in cold drink/food amlodipine 2.5 mg tablet 2.5 mg PO DAILY Qty: 30 11RF Primary Care Provider: Yuval Woods Referrals: Marco Obrien MD [Med Staff - Active Staff] - 3-5 Days Yuval Woods MD [Primary Care Provider] - 3-5 Days Print Language: Z[place]ian Disposition Disposition: Home, Self Care
--- NOTE | 2023-07-23 16:32 | EKG12_ITS ---
Test Reason : WEAKNESS Blood Pressure : / mmHG Vent. Rate : 073 BPM Atrial Rate : 073 BPM P-R Int : 154 ms QRS Dur : 084 ms QT Int : 392 ms P-R-T Axes : 058 -11 059 degrees QTc Int : 431 ms Normal sinus rhythm Normal ECG Confirmed by Lorenzo Weeks ([id number]), electronic news gathering editor HUSEYIN STEPHENSON ([id number]) on 07/27/2023 6:58:00 AM Referred By: Confirmed By:Lorenzo Weeks
--- NOTE | 2023-07-23 16:49 | RAD_ITS ---
INDICATION: Hypertension EXAMINATION/TECHNIQUE: X-RAY - XR Chest 2 Views COMPARISON: 06/10/2021 FINDINGS: LINES/DEVICES: None. LUNGS: Hyperinflation without consolidation, vascular congestion or pleural effusion. MEDIASTINUM AND CARDIOVASCULAR STRUCTURES: Cardiac silhouette within normal limits. BONES AND SOFT TISSUES: No acute findings. RAD/Chest PA and Lateral IMPRESSION: No acute cardiopulmonary disease. Electronically Signed: Heriberto Murillo MD at 17:33 EDT ,
[2023-07-23 16:53] LABS: Bacteria 0 SEEN /hpf (None Seen); Mucous, Urine 0 SEEN /hpf (<or=2+); Red Blood Cells-Urine 0 SEEN /hpf (0-5); Squamous Epithelial Cells - UA 0 SEEN /hpf (5-10); White Blood Cells 0 SEEN /hpf (0-5)
[2023-07-23 16:57] LABS: Absolute Lymphocyte Count 0.83 X10^3/uL (0.83-4.51); Absolute Neutrophil Count 5.7 X10^3/uL (2.0-7.7); Basophil# 0.04 X10^3/uL; Basophil% 0.6 % (0-1); Eosinophil# 0.03 X10^3/uL; Eosinophils% 0.4 % (0-5); Hematocrit 38.2 % (37-47); Hemoglobin 12.6 g/dL (12.0-15.0); Lymphocyte # 0.83 X10^3/ul (0.83-4.51); Lymphocyte % 11.5 % (19-41); Mean Corpuscular Hgb 30.8 pg (27.0-32.0); Mean Corpuscular Volume 93.4 fL (81-99); Mean Platelet Vol. 8.8 fl (6.2-12.0); Monocyte# 0.63 X10^3/uL; Monocyte% 8.7 % (0-10); NRBC Flagged by Analyzer 0 % (0-5); Neutrophil # 5.67 X10^3/uL (2.7-7.7); Neutrophil % 78.5 % (47-70); Platelet Count 325 K/mm3 (150-450); RBC Distribution Width CV 12.1 % (11.6-14.6); RBC Distribution Width SD 41.5 fl (35.1-43.9); Red Blood Count 4.09 M/mm3 (4.2-5.4); White Blood Count 7.2 K/mm3 (4.4-11.0)
[2023-07-23 16:58] LABS: POSITIVE COUNT NO; POSITIVE DIFFERENTIAL NO; POSITIVE MORPHOLOGY NO
[2023-07-23 17:16] LABS: Anion Gap 5 (5-15); BUN 7 mg/dL (7-18); BUN/Creat Ratio 10.3 RATIO (10-20); Calcium,Total 9.1 mg/dL (8.5-10.1); Chloride 103 mmol/L (98-107); Creatinine, Serum 0.68 mg/dL (0.55-1.02); EST Glomerular Filtration Rate 90 mL/min (>60); Est Glom Filt Rate - Afr Amer 109 mL/min (>60); Estimated Creatinine Clearance 58.42 ml/min; Glucose 107 mg/dL (74-106); Potassium 3.4 mmol/L (3.5-5.1); Sodium Level 135 mmol/L (136-145); Troponin-I HS 4 pg/mL (3.0-54.0)
[2023-07-23 17:21] LABS: Color, Urine Yellow (Yellow); Glucose, Dipstick Normal (Normal); Ketone-Dipstick Negative (Negative); Leukocyte Esterase-Dipstick Negative /ul (Negative); Nitrite-Dipstick Negative (Negative); Occult Blood-Urine Negative /ul (Negative); Protein-Dipstick Negative (Negative); Specific Gravity, Urine 1.005 (1.002-1.030); Urine Bilirubin Dipstick Negative (Negative); Urine Clarity Clear (Clear); Urine Urobilinogen Normal (Normal)
[2023-07-23 17:34] VITALS: BP 151/80; PULSE 93; RESP 18; O2SAT 98
[2023-07-23 18:30] VITALS: BP 172/83; PULSE 88; RESP 18; O2SAT 96
[2023-07-23] MEDS: Mag Hydrox/Al Hydrox/Simeth 30 ML UDC PO (18:59)
[2023-07-23 19:21] VITALS: BP 179/87; PULSE 80; RESP 19; TEMP 36.7; O2SAT 98
== END 2023-07-23 19:31 | disposition home or self-care (01) ==
PROVIDERS: Emergency Provider Emergency Medicine; PCP Internal Medicine; Visit Provider Emergency Medicine
DX: I10 Essential (primary) hypertension (principal); K21.9 Gastro-esophageal reflux disease without esophagitis; R00.2 Palpitations; I25.10 Atherosclerotic heart disease of native coronary artery without angina pectoris
CPT/HCPCS: 71046; 80048; 81001; 84484; 85025; 93005; 99283; A4216

== ENCOUNTER → 2023-11-19 | Outpatient (CLI) | payer MEDICARE, OTHER, SELFPAY ==
--- NOTE | 2023-11-19 14:59 | ST.MBS ---
Modified Barium Swallow Patient Information Study Date: 11/19/23 Study Time: 13:00 Direct Billable Minutes: 87 Total Minutes procedure & reportin Diagnosis: Dysphagia R13.10 Referring Physician: Yuval Woods Reason for Referral: Objectively assess swallow function, assess risk for aspiration, and determine recommendations for least restrictive diet textures and compensatory strategies to improve safety of swallow. Medical History: PMH: acute pharyngitis, GERD managed by pantoprazole for the past 1.5 months, breast cancer s/p sx and radiation, DDD, osteoporosis, osteoarthritis. Patient reports burning sensation in throat (15/09) and chest (anytime except when stomach is empty) for the past 1.5 months. Pt has established care w/ Dr. Marcano who began with medication management of GERD. Follow up w/ GI is in the process of being scheduled. Pt feels that food/drinks get caught at the level of her chest. She denies regurgitation w/ food/drink. She does have a bad taste in her mouth all the time. PCP referred her for MBSS due to persistent burning sensation in throat despite use of pantoprazole. Current Diet Ordered: Regular textures / Thin liquids Dentition: WNL Mental Status: WNL Respiratory Status: Oxygenating on Room Air Penetration-Aspiration Scale Penetration-Aspiration Scale: OBJECTIVE ASSESSMENT OF SWALLOW FUNCTION (QUANTITATIVE ? PER TRIAL): PENETRATION / ASPIRATION SCALE (LYON): 1 = does not enter airway 2 = enters airway/above vocal folds/ejected 3 = enters airway/above vocal folds/not ejected 4 = enters airway/contacts vocal folds/ejected 5 = enters airway/contacts vocal folds/not ejected 6 = enters airway/below vocal folds/ejected 7 = enters airway/below vocal folds/not ejected despite effort 8 = enters airway/below vocal folds/no effort VIDEOFLOROSCOPIC SCALE SCORE (LYON): Grade I = aspiration of material that has penetrated into the laryngeal vestibule, intact cough reflex Grade II = aspiration < 10 % of the bolus, intact cough reflex Grade III = aspiration of < 10 % of the bolus, reduced cough reflex or aspiration of > 10 % of the bolus, intact cough reflex Grade IV = aspiration of > 10 % of the bolus, reduced cough reflex Penetration-Aspiration Scale Score Thin Liquid via teaspoon: Result: 1= does not enter airway Thin Liquid via teaspoon Trial 2: Result: 1= does not enter airway Thin Liquid via large single sip: cup: Result: 1= does not enter airway Thin Liquid via sequential sips: cup: Result: 1= does not enter airway Comment: Esophageal screen - Retention of thin liquids throughout the mid and lower esophagus w/ retrograde flow. Pudding via teaspoon: Result: 1= does not enter airway Comment: Esophageal screen - Retention of pudding in upper-mid esophagus and lower esophagus. 1/2 Cookie: Result: 1= does not enter airway Comment: Esophageal screen - Retention of cookie in lower esophagus w/ retrograde flow. Thin Liquid via single sip: straw: Result: 1= does not enter airway Oral Phase Tongue Control During Bolus Hold: Posterior escape of greater than half of bolus Bolus Preparation/Mastication: Timely and efficient chewing and mashing (posterior loss to the pyriforms) Bolus Transport/Lingual Motion: Delayed initiation of tongue motion Oral Residue: Trace residue lining oral structures Pharyngeal Phase Initiation of Pharyngeal Swallow: Bolus head in pyriforms Soft Palate Elevation: Trace column of contrast/air between soft palate and pharyngeal wall Laryngeal Elevation: Comp. Superior move thyroid cart w/comp. apprx arytenoid cart-epig pet Anterior Hyoid Excursion: Partial anterior movement Epiglottic Movement: Complete inversion Laryngeal Vestibule Closure at Height of Swallow: Complete; no air/contrast in laryngeal vestibule Pharyngeal Stripping Wave: Present - complete Pharyngoesophageal Segment Opening: Complete distension and complete duration; no obstruction of flow Tongue Base Retraction: Narrow column of contrast between tongue base & post. pharyngeal wall Pharyngeal Residue: Trace residue within or on pharyngeal structures Diagnosis/Impression Diagnosis: Esophageal dysphagia R13.14 Impression: Oropharyngeal swallow function grossly WNL. Pt does have posterior loss of various consistencies to the pyriforms prior to swallow onset; however, she demonstrates good airway closure during the swallow evidenced by no laryngeal penetration or aspiration throughout the study. Trace oral and pharyngeal residues after the swallow. The esophageal phase is primarily marked by... -Retention of thin liquids, pudding, and cookie. Retrograde flow of thin liquids and cookie remaining below the UES. Image 1. Esophageal screen of sequential thin. Image 2. Esophageal screen of pudding. Image 3. Esophageal screen of cookie. Recommendations Diet: Regular Textures and Thin Liquids Comment: 4-5 smaller meals per day as compared to 3 large meals. STOP eating/drinking if increased s/s of reflux, sensation of retention, or regurgitation and resume at a later time. Compensatory Strategies: Small Bites, Small Sips, Slow Rate, Alternate bites/solids and sips/liquids and Sitting upright (during and 30 min after meal) Recommend Repeat Modified Barium Swallow: No Need for Skilled Speech Therapy Services: No Recommended Referrals: GI Consult Education Completed: 1. Described result of evaluation. Status Active ST Patient: Active Contact Information [facility]:: Amy Morris M.A. CCC-POWER AND RECOVERY SUPERVISOR? Speech-Language Pathologist?? [facility] [address] [place] [address]? [email or web address]?? [phone]
== END | disposition home or self-care (01) ==
PROVIDERS: PCP Internal Medicine; Referring Provider Internal Medicine; Visit Provider Internal Medicine
DX: R13.19 Other dysphagia (principal)
CPT/HCPCS: 74230; 92611

== ENCOUNTER 2023-11-20 18:47 | Emergency (ER) | payer MEDICARE, OTHER, SELFPAY ==
[2023-11-20 18:49] VITALS: BP 175/95; PULSE 79; RESP 18; TEMP 35.9; O2SAT 97
[2023-11-20 20:47] VITALS: BP 159/87; PULSE 69; RESP 15; O2SAT 100
[2023-11-20 22:00] VITALS: BP 175/82; PULSE 67; RESP 16; O2SAT 99; BMI 26.6
--- NOTE | 2023-11-20 22:28 | CT_ITS ---
EXAM: CT ANGIOGRAPHY HEAD AND NECK WITH INTRAVENOUS CONTRAST CLINICAL INDICATION: neck pain chiropractic treatment TECHNIQUE: [place]/head and neck CT angiography protocol performed with intravenous contrast. This CT exam was performed using one or more of the following dose reduction techniques: automated exposure control, adjustment of the mA and/or kV according to patient size, and/or use of iterative reconstruction technique. MIP reconstructed images were created and reviewed. CONTRAST: IV 100mL Isovue-370 RADIATION DOSE: CTDIvol = 32.79 mGy, DLP = 1473.13 mGy-cm COMPARISON: No relevant prior studies available. FINDINGS: HEAD: RIGHT ANTERIOR CEREBRAL ARTERY: Unremarkable. No occlusion or significant stenosis. Anterior communicating artery is present. No aneurysm. RIGHT MIDDLE CEREBRAL ARTERY: Unremarkable. No occlusion or significant stenosis. No aneurysm. RIGHT POSTERIOR CEREBRAL ARTERY: Unremarkable. No occlusion or significant stenosis. No aneurysm. RIGHT INTRACRANIAL INTERNAL CAROTID ARTERY: Unremarkable. No significant stenosis. No dissection or occlusion. RIGHT INTRACRANIAL VERTEBRAL ARTERY: Unremarkable. No significant stenosis. No dissection or occlusion. LEFT ANTERIOR CEREBRAL ARTERY: Unremarkable. No occlusion or significant stenosis. No aneurysm. LEFT MIDDLE CEREBRAL ARTERY: Unremarkable. No occlusion or significant stenosis. No aneurysm. LEFT POSTERIOR CEREBRAL ARTERY: Unremarkable. No occlusion or significant stenosis. No aneurysm. LEFT INTRACRANIAL INTERNAL CAROTID ARTERY: Unremarkable. No significant stenosis. No dissection or occlusion. LEFT INTRACRANIAL VERTEBRAL ARTERY: Unremarkable. No significant stenosis. No dissection or occlusion. BASILAR ARTERY: Unremarkable. No occlusion or significant stenosis. No aneurysm. OTHER VASCULATURE: No vascular malformation. NECK: RIGHT COMMON CAROTID ARTERY: Unremarkable. No significant stenosis. No dissection or occlusion. RIGHT EXTRACRANIAL INTERNAL CAROTID ARTERY: Mild stenosis proximally, 25%. No dissection or occlusion. RIGHT EXTERNAL CAROTID ARTERY: Unremarkable. No occlusion. RIGHT EXTRACRANIAL VERTEBRAL ARTERY: Unremarkable. No significant stenosis. No dissection or occlusion. LEFT COMMON CAROTID ARTERY: Unremarkable. No significant stenosis. No dissection or occlusion. LEFT EXTRACRANIAL INTERNAL CAROTID ARTERY: Unremarkable. No significant stenosis. No dissection or occlusion. LEFT EXTERNAL CAROTID ARTERY: Unremarkable. No occlusion. LEFT EXTRACRANIAL VERTEBRAL ARTERY: Unremarkable. No significant stenosis. No dissection or occlusion. BRACHIOCEPHALIC AND SUBCLAVIAN ARTERIES: Unremarkable as visualized. No occlusion or significant stenosis. LUNG APICES: Unremarkable as visualized. HEAD and NECK: BONES/JOINTS: Unremarkable. No discrete lytic or blastic abnormalities. SOFT TISSUES: Unremarkable. CAROTID STENOSIS REFERENCE USING NASCET CRITERIA: % ICA stenosis = (1 - narrowest ICA diameter/diameter of distal cervical ICA) x 100. Mild - <50% stenosis. Moderate - 50-69% stenosis. Severe - 70-94% stenosis. Near occlusion - 95-99% stenosis. Occluded - 100% stenosis. * A single impression for all exams can be found at the end of this report EXAM: CT HEAD WITHOUT INTRAVENOUS CONTRAST CLINICAL INDICATION: neck pain chiropractic treatment TECHNIQUE: Multiple axial images were obtained of the head without intravenous contrast. This CT exam was performed using one or more of the following dose reduction techniques: automated exposure control, adjustment of the mA and/or kV according to patient size, and/or use of iterative reconstruction technique. CONTRAST: IV 100mL Isovue-370 RADIATION DOSE: CTDIvol = 32.79 mGy, DLP = 1473.13 mGy-cm COMPARISON: No relevant prior studies available. FINDINGS: BRAIN AND EXTRA-AXIAL SPACES: Unremarkable. No intra- or extra-axial hemorrhage. No evidence of acute infarct. No intracranial mass or mass effect. There is preservation of the aguila/white matter interface. Posterior fossa structures are unremarkable. Ventricles are appropriate for age. No hydrocephalus. Basal cisterns are patent. BONES/JOINTS: Unremarkable. No discrete lytic or blastic abnormalities. SINUSES: Unremarkable as visualized. Clear. MASTOID AIR CELLS: Unremarkable. Clear. ORBITS: Visualized globes, extraocular muscles, optic nerves and retrobulbar fat appear unremarkable. * A single impression for all exams can be found at the end of this report CT/CTA Head AND Neck W/ Contrast IMPRESSION: CT ANGIOGRAPHY HEAD AND NECK WITH INTRAVENOUS CONTRAST: No large vessel occlusion, dissection, or other acute arterial abnormalities on this CTA carotid and CTA brain. Follow up with additional imaging if clinically indicated. CT HEAD WITHOUT INTRAVENOUS CONTRAST: Negative head/brain CT without intravenous contrast. Electronically Signed: Sea Mcadams MD at 0:53 EDT ,
--- NOTE | 2023-11-20 22:29 | EKG12_ITS ---
Test Reason : PAIN Blood Pressure : / mmHG Vent. Rate : 055 BPM Atrial Rate : 055 BPM P-R Int : 160 ms QRS Dur : 086 ms QT Int : 442 ms P-R-T Axes : 052 -10 033 degrees QTc Int : 422 ms Sinus bradycardia with sinus arrhythmia Nonspecific ST abnormality Abnormal ECG Confirmed by GIANNA RETANA, SHAMA ([id number]), field map editor PALLAVI ESTEBAN ([id number]) on 11/24/2023 2:17:37 PM Referred By: Confirmed By:SHAMA KATZ MD
[2023-11-20] MEDS: Ondansetron 4 MG/2 ML Vial IV (22:47)
[2023-11-20] MEDS: 0.9% Normal Saline (1000mL) 1,000 ML 999 ML IV (22:47)
[2023-11-20] MEDS: HYDROcodone Bitartrate/Apap 5/325 Tablet PO (22:47)
[2023-11-20 22:59] LABS: Absolute Lymphocyte Count 1.27 X10^3/uL (0.83-4.51); Absolute Neutrophil Count 4.3 X10^3/uL (2.0-7.7); Basophil# 0.04 X10^3/uL; Basophil% 0.6 % (0-1); Eosinophil# 0.09 X10^3/uL; Eosinophils% 1.4 % (0-5); Hematocrit 38.7 % (37-47); Hemoglobin 12.9 g/dL (12.0-15.0); Lymphocyte # 1.27 X10^3/ul (0.83-4.51); Lymphocyte % 19.7 % (19-41); Mean Corp Hgb Conc 33.3 g/dL (32-36); Mean Corpuscular Hgb 30.9 pg (27.0-32.0); Mean Corpuscular Volume 92.8 fL (81-99); Mean Platelet Vol. 8.9 fl (6.2-12.0); Monocyte# 0.77 X10^3/uL; Monocyte% 11.9 % (0-10); NRBC Flagged by Analyzer 0 % (0-5); Neutrophil # 4.27 X10^3/uL (2.7-7.7); Neutrophil % 66.1 % (47-70); Platelet Count 299 K/mm3 (150-450); RBC Distribution Width CV 11.9 % (11.6-14.6); RBC Distribution Width SD 41.1 fl (35.1-43.9); Red Blood Count 4.17 M/mm3 (4.2-5.4); White Blood Count 6.5 K/mm3 (4.4-11.0)
--- NOTE | 2023-11-20 23:12 | EX.ED.DYSGE1 ---
HPI History of Present Illness Chief Complaint: Hypertension Narrative Narrative: Patient is a 73-year-old female with past medical history fibromyalgia, hypertension, hyperparathyroidism GERD, chronic neck pain follows with chiropractor who presents to the emergency department chief complaint of hypertension. Patient states that starting today earlier this morning she noted that her blood pressure was elevated and ranging high throughout the day. States that she tried to take some Tylenol for her neck pain however notes that this did not help and her blood pressure remained elevated which prompted her here for the valuation management. Patient states that she followed with her chiropractor had a treatment yesterday and had her neck adjusted where this was cracked. Patient states her pain is slightly worse after the treatment. PFSH [facility] Medical History Acute pharyngitis Burn of right upper extremity Atherosclerosis of coronary artery of [place] heart without angina pectoris Fibromyalgia Menopausal hot flushes Symptoms of gastroesophageal reflux Hypertension Hyperparathyroidism Paresthesia Skin cancer GERD (gastroesophageal reflux disease) Osteopenia Osteoarthritis Heart murmur Hormone deficiency High cholesterol Headache Gastrointestinal problem Cataracts, bilateral Breast cancer Breast lump UTI (urinary tract infection) Back problem Arthritis Hx of breast cancer Home Medications ?Medication ?Instructions ?Recorded ?Last Taken ?Type zoledronic acid 5 mg/100 mL in 1 ea .Route ONCE #100 mL 02/19/23 Unknown Rx mannitol 5 %-water intravenous piggybck acetaminophen 500 mg tablet 1,000 mg PO BID PRN Pain 06/10/23 Unknown History (Tylenol Extra Strength) amlodipine 2.5 mg tablet 2.5 mg PO DAILY 11/20/23 Unknown History pantoprazole 40 mg tablet,delayed 40 mg PO DAILY 11/20/23 Unknown History release prednisone 5 mg tablet 5 mg PO DAILY 11/20/23 Unknown History Allergy/AdvReac Type Severity Reaction Status Date / Time duloxetine (From Cymbalta) AdvReac Mild dizziness Verified 11/20/23 18:49 Family History Father Heart disease Mother Heart disease Osteoporosis Thyroid disorder Brother Heart disease Hypertension Hypercholesterolemia Daughter Cancer Sister Arthritis Hypertension Hypercholesterolemia Osteoporosis Thyroid disorder Surgical History History of left heart catheterization (06/24/21) History of endoscopy History of colonoscopy History of lumpectomy Hx of cataract surgery H/O: hysterectomy Social History Smoking Status: Never smoker alcohol intake: never substance use type: does not use what type of physical activity do you participate in: walking and weight training frequency: 1-2 times per week ROS ROS ED ROS Narrative Constitutional: Denies any fevers, chills, headaches, lightness, dizziness Eyes: Denies change in vision double vision blurry vision Cardiovascular: Denies chest pain or palpitations Respiratory: Denies coughing wheezing shortness of breath Abdomen: Denies abdominal pain nausea vomit diarrhea : Denies any urinary symptoms Neurological: Denies numbness, weakness, tingling Musculoskeletal: Complains of neck pain as noted above Skin: Denies rashes lesions EXAM Physical Exam Narrative Exam Narrative: General: Patient lying in bed rest comfortably did not appear to be acute distress Head: Atraumatic, normocephalic Eyes: PERRL bilaterally, EOMI bilateral, no conjunctival injection noted Neck: Soft, supple, trachea midline, patient has full range of motion of her neck, no concern for meningitis, no tenderness palpation midline cervical spine Cardiovascular: Regular rate and rhythm no murmurs gallops rubs noted Respiratory: Clear to auscultation bilaterally no rales rhonchi or wheezes noted Abdomen: Soft, nondistended, nontender to palpation Extremities: +5/5 strength noted in the bilateral lower extremities, no pedal edema on exam, radial pulses +2/4 in the bilateral upper extremities Neurological: Patient following commands knew that she was at [facility] years 2023 Skin: Warm, dry, tact Const Vital Signs: 11/20/23 18:49 11/20/23 20:47 11/20/23 22:00 Temperature 96.7 F L Temperature Source Temporal Pulse Rate 79 69 67 Respiratory Rate 18 15 16 Respiratory Effort Respiratory Pattern Blood Pressure 175/95 H 159/87 H 175/82 H Blood Pressure Mean 121 111 113 Pulse Ox 97 100 99 Oxygen Delivery Method Room Air Room Air Room Air 11/20/23 22:00 11/20/23 23:38 11/21/23 00:45 Temperature Temperature Source Pulse Rate 57 L 67 Respiratory Rate 16 16 Respiratory Effort Normal Respiratory Pattern Normal Blood Pressure 178/79 H 166/75 H Blood Pressure Mean 112 105 Pulse Ox 93 98 Oxygen Delivery Method Room Air Room Air MDM MDM MDM Narrative Medical decision making narrative: Patient is a 73-year-old female who presents to the emerged part with chief complaint of neck pain and hypertension. Patient will have a workup performed here on the differential diagnose includes but not limited to chronic neck pain, vertebral artery dissection, ACS. Once workup is obtained reviewed she will be reevaluated. Patient be given Percocet and Zofran for pain control. Patient CBC reviewed and was largely unremarkable no evidence of leukocytosis white blood count 6.5, hemoglobin stable 12.9, platelet count normal at 299. Patient sodium was noted to be normal 134, potassium low at 3.5, creatinine normal at 0.62. Patient's troponin was noted to be normal at 6, AST and ALT were normal at 14 and 17 respectively, urinalysis did not reveal any evidence infection. Patient's CTA of her head and neck showed no evidence of arterial dissection or large vessel occlusion. Patient's EKG reviewed and showed sinus bradycardia with a rate of 55 bpm. On reevaluation the patient her blood pressure is 166/75. She was advised to continue to control her neck pain and use ibuprofen Tylenol [id number]. She is advised to continue to keep her blood pressure log and take this to her primary care physician to see if they need to start an antihypertensive at that point time. She previously to this today her blood pressure was in the normal range based on what she showed me here today. Once again the patient is asymptomatic with her hypertension. Patient would like to go home at this point time she was vies return with worsening symptoms or other concerns. She is agreeable this plan all question concerns answered she was discharged home in stable condition. Lab Data Labs: Laboratory Results - last 24 hr 11/20/23 11/20/23 22:50 23:45 WBC 6.5 RBC 4.17 L Hgb 12.9 Hct 38.7 MCV 92.8 MCH 30.9 MCHC 33.3 RDW Std Deviation 41.1 RDW Coeff of Shefali 11.9 Plt Count 299 MPV 8.9 Immature Gran % (Auto) 0.300 Neut % (Auto) 66.1 Lymph % (Auto) 19.7 Ocean % (Auto) 11.9 H Eos % (Auto) 1.4 Baso % (Auto) 0.6 Absolute Neuts (auto) 4.3 Absolute Lymphs (auto) 1.27 Nucleated RBC % 0 Sodium 134 L Potassium 3.5 Chloride 102 Carbon Dioxide 26.0 Anion Gap 6 BUN 6 L Creatinine 0.62 Estim Creat Clear Calc 58.99 Est GFR (MDRD) Af Amer 121 Est GFR (MDRD) Non-Af 100 BUN/Creatinine Ratio 9.7 L Glucose 102 Calcium 9.1 Total Bilirubin 0.60 AST 14 L ALT 17 Alkaline Phosphatase 65 Troponin I High Sens 6 Total Protein 7.3 Albumin 4.0 Globulin 3.3 Albumin/Globulin Ratio 1.2 Urine Color Straw Urine Clarity Clear Urine pH 7.0 Ur Specific [place] 1.005 Urine Protein Negative Urine Glucose (UA) Normal Urine Ketones Negative Urine Occult Blood Negative Urine Nitrite Negative Urine Bilirubin Negative Urine Urobilinogen Normal Ur Leukocyte Esterase Negative Urine RBC 0 SEEN Urine WBC 0 SEEN Ur Squamous Epith Cells 0 SEEN Urine Bacteria 0 SEEN Urine Mucus 0 SEEN Radiography Diagnostic Testing: Clinical Impression(s) from Imaging Studies Head/Neck CTA 11/20/23 22:28 IMPRESSION: CT ANGIOGRAPHY HEAD AND NECK WITH INTRAVENOUS CONTRAST: No large vessel occlusion, dissection, or other acute arterial abnormalities on this CTA carotid and CTA brain. Follow up with additional imaging if clinically indicated. CT HEAD WITHOUT INTRAVENOUS CONTRAST: Negative head/brain CT without intravenous contrast. Electronically Signed: Sea Mcadams MD at 0:53 EDT , Discharge Plan Triage Chief Complaint: Hypertension ED Provider: Fabien Mccann Dx/Rx/DC Orders Clinical Impression: Chronic neck pain, Hypertension Instructions: ED Hypertension, To Be Confirmed Prescriptions: No Action acetaminophen [Tylenol Extra Strength] 500 mg tablet 1,000 mg PO BID PRN (Reason: Pain) zoledronic [id number] 5 mg/100 mL piggyback 1 ea .Route ONCE Qty: 100 0RF Rx Instructions: onceinfuse over 20 minutes amlodipine 2.5 mg tablet 2.5 mg PO DAILY pantoprazole 40 mg tablet,delayed release (DR/EC) 40 mg PO DAILY prednisone 5 mg tablet 5 mg PO DAILY Primary Care Provider: Yuval Woods Referrals: Yuval Woods MD [Primary Care Provider] - Activity Restrictions/Additional Instructions: Take ibuprofen and Tylenol [id number] as we discussed here for pain control. Return with worsening symptoms or other concerns that we discussed here. Follow with your primary care physician outpatient setting and continue to keep a blood pressure log and take this with you to your appointment. Print Language: Setswana Disposition Disposition: Home, Self Care
[2023-11-20 23:18] LABS: ALB/GLOB Ratio 1.2 RATIO (0.9-2.4); AST(SGOT) 14 U/L (15-37); Alanine Aminotransfer ALT/SGPT 17 U/L (13-56); Alkaline Phosphatase 65 U/L (45-117); Anion Gap 6 (5-15); BUN 6 mg/dL (7-18); BUN/Creat Ratio 9.7 RATIO (10-20); Calcium,Total 9.1 mg/dL (8.5-10.1); Chloride 102 mmol/L (98-107); Creatinine, Serum 0.62 mg/dL (0.55-1.02); EST Glomerular Filtration Rate 100 mL/min (>60); Est Glom Filt Rate - Afr Amer 121 mL/min (>60); Estimated Creatinine Clearance 58.99 ml/min; Globulin 3.3 g/dL (2.2-4.2); Glucose 102 mg/dL (74-106); Potassium 3.5 mmol/L (3.5-5.1); Protein, Total 7.3 g/dL (6.4-8.2); Sodium Level 134 mmol/L (136-145); Troponin-I HS 6 pg/mL (3.0-54.0)
[2023-11-20 23:38] VITALS: BP 178/79; PULSE 57; RESP 16; O2SAT 93
[2023-11-21 00:02] LABS: Bacteria 0 SEEN /hpf (None Seen); Mucous, Urine 0 SEEN /hpf (<or=2+); Red Blood Cells-Urine 0 SEEN /hpf (0-5); Squamous Epithelial Cells - UA 0 SEEN /hpf (5-10); White Blood Cells 0 SEEN /hpf (0-5)
[2023-11-21 00:03] LABS: Color, Urine Straw (Yellow); Glucose, Dipstick Normal (Normal); Ketone-Dipstick Negative (Negative); Leukocyte Esterase-Dipstick Negative /ul (Negative); Nitrite-Dipstick Negative (Negative); Occult Blood-Urine Negative /ul (Negative); Protein-Dipstick Negative (Negative); Specific Gravity, Urine 1.005 (1.002-1.030); Urine Bilirubin Dipstick Negative (Negative); Urine Clarity Clear (Clear); Urine Urobilinogen Normal (Normal)
[2023-11-21 00:45] VITALS: BP 166/75; PULSE 67; RESP 16; O2SAT 98
[2023-11-21 02:00] VITALS: BP 162/57; PULSE 66; RESP 16; TEMP 37.1; O2SAT 100; O2SAT 98
== END 2023-11-21 02:06 | disposition home or self-care (01) ==
PROVIDERS: Emergency Provider Emergency Medicine; PCP Internal Medicine; Visit Provider Emergency Medicine
DX: M54.2 Cervicalgia (principal); G89.29 Other chronic pain; I10 Essential (primary) hypertension; I25.10 Atherosclerotic heart disease of native coronary artery without angina pectoris; Z79.899 Other long term (current) drug therapy
CPT/HCPCS: 70496; 70498; 80053; 81001; 84484; 85025; 93005; 96361; 96374; 96376; 99283; J7030; Q9967; A4216; J2405

== ENCOUNTER → 2024-01-14 | Outpatient (CLI) | payer MEDICARE, OTHER, SELFPAY ==
--- NOTE | 2024-01-14 14:54 | US_ITS ---
INDICATION: NONTOXIC SINGLE NODULE EXAMINATION: Ultrasound US Thyroid (eg thyroid, parathyroid, parotid) TECHNIQUE: Martin scale and color doppler imaging was performed of the thyroid gland. COMPARISON: No relevant prior comparison study available FINDINGS: RIGHT THYROID LOBE: 4.7 x 1.5 x 1.5 cm. Parenchyma: The gland echotexture is homogenous. Thyroid vascularity is normal. LEFT THYROID LOBE: 3.8 x 1.2 x 1.2 cm. Parenchyma: The gland echotexture is homogenous. Thyroid vascularity is normal. ISTHMUS: 0.3 cm in maximum AP dimension. Estimated total number of nodules greater than equal to 1 cm: 0. Subcentimeter nodules are seen bilaterally. [employer] nodules are described as follows: 1. Location: Right superior Size: 0.5 x 0.3 x 0.2 cm. Nodule characteristics: Composition: Solid or almost completely solid (2). Echogenicity: Isoechoic (1). Shape: Wider than tall (0). Margins: Smooth (0). Echogenic Foci: None (0). ACR TI-RADS total points: 3. ACR TI-RADS category: 3. 2. Location: Left mid Size: 0.4 x 0.4 x 0.3 cm. Nodule characteristics: Composition: Solid or almost completely solid (2). Echogenicity: Hypoechoic (2). Shape: Wider than tall (0). Margins: Smooth (0). Echogenic Foci: None (0). ACR TI-RADS total points: 4. ACR TI-RADS category: 4. Additional similar nodules are seen measuring 0.5 cm or less. LYMPH NODES: No lymphadenopathy is seen in the tissue surrounding the thyroid gland. US/Thyroid IMPRESSION: Subcentimeter thyroid nodules. Based on size and appearance, no specific follow-up is recommended. ACR TI-RADS RECOMMENDATION REFERENCE: Ultrasound-guided fine-needle aspiration, follow-up ultrasound, no further follow-up. *TR 1 (0 points) and TR 2 (2 points): No FNA or follow-up. *TR 3 (3 points): FNA if more than or equal to 2.5 cm in maximum dimension. Follow-up ultrasound in 1, 3, and 5 years if 1.5 to 2.4 cm in maximum dimension. *TR 4 (4-6 points): FNA if more than or equal to 1.5 cm in maximum dimension. Follow-up ultrasound in 1, 2, 3, and 5 years if 1 to 1.4 cm in maximum dimension. *TR 5 (more than or equal to 7 points): FNA if more than or equal to 1 cm in maximum dimension. Follow-up ultrasound every year for 5 years if 0.5 to 0.9 cm in maximum dimension. *TR 3, TR 4, or TR 5 nodules that are below the size threshold for follow-up receive no follow-up. Electronically Signed: Tigre Allen MD at 21:30 EST ,
== END | disposition home or self-care (01) ==
PROVIDERS: PCP Internal Medicine
DX: E04.1 Nontoxic single thyroid nodule (principal)
CPT/HCPCS: 76536

== ENCOUNTER 2024-03-12 20:44 | Emergency (ER) | payer MEDICARE, OTHER, SELFPAY ==
[2024-03-12 20:45] VITALS: BP 175/78; PULSE 84; RESP 16; TEMP 36.5; O2SAT 98; BMI 26.6
--- NOTE | 2024-03-12 22:15 | CT_ITS ---
EXAM: CT ANGIOGRAPHY NECK WITHOUT AND WITH INTRAVENOUS CONTRAST CLINICAL INDICATION: Neck pain, manipulated by chiropractor TECHNIQUE: Routine carotid CT angiography protocol was performed without and with intravenous contrast. NASCET criteria using the distal ICAs for comparison were used for evaluation of stenoses. This CT exam was performed using one or more of the following dose reduction techniques: automated exposure control, adjustment of the mA and/or kV according to patient size, and/or use of iterative reconstruction technique. MIP reconstructed images were created and reviewed. CONTRAST: IV 75mL [id number] COMPARISON: No relevant prior studies available. FINDINGS: VASCULATURE: RIGHT COMMON CAROTID ARTERY: Unremarkable. No occlusion or significant stenosis. No dissection. RIGHT INTERNAL CAROTID ARTERY: There are calcifications in the right carotid bulb. Extracranial segment is patent with no occlusion or significant stenosis. No dissection. RIGHT EXTERNAL CAROTID ARTERY: Unremarkable. No occlusion. RIGHT VERTEBRAL ARTERY: Unremarkable. No occlusion or significant stenosis. No dissection. LEFT COMMON CAROTID ARTERY: Unremarkable. No occlusion or significant stenosis. No dissection. LEFT INTERNAL CAROTID ARTERY: Unremarkable. Extracranial segment is patent with no occlusion or significant stenosis. No dissection. LEFT EXTERNAL CAROTID ARTERY: Unremarkable. No occlusion. LEFT VERTEBRAL ARTERY: There are minimal calcifications in the proximal internal carotid arteries. There is no stenosis. The left vertebral artery is smaller than the right with the right being the main supplier to the basilar system. No dissection. BRACHIOCEPHALIC AND SUBCLAVIAN ARTERIES: Unremarkable as visualized. No occlusion or significant stenosis. NECK: BONES/JOINTS: Unremarkable. No acute fracture. SOFT TISSUES: Unremarkable. LUNG APICES: Clear. CAROTID STENOSIS REFERENCE USING NASCET CRITERIA: % ICA stenosis = (1 - narrowest ICA diameter/diameter of distal cervical ICA) x 100. Mild - <50% stenosis. Moderate - 50-69% stenosis. Severe - 70-94% stenosis. Near occlusion - 95-99% stenosis. Occluded - 100% stenosis. CT/CTA Neck W/WO Contrast IMPRESSION: 1. Minimal calcifications in the carotid bulbs and proximal internal carotid arteries slightly greater on the right. There is no stenosis. 2. Small caliber left vertebral artery. The right vertebral artery the main supplier to the basilar system. All vessels are patent with no stenosis or occlusion. Electronically Signed: Arden Lake MD at 23:57 EST ,
[2024-03-12] MEDS: Ketorolac 15 MG/ML Vial IV (22:36)
[2024-03-12] MEDS: cycloBENZAPRine HCl 5 MG TABLET PO (22:37)
--- NOTE | 2024-03-13 00:11 | EDS_ITS ---
HPI History of Present Illness Chief Complaint: Back Narrative Narrative: Chief complaint and HPI: Neck pain. 74-year-old female with chronic neck pain presents for evaluation of neck pain. Patient states she has had chronic neck pain for a long time. She states she is on orthopedic physician in the past for her chronic neck pain and surgery was not recommended. She states that she has since then been seeing a chiropractor weekly. She states that the pain is not improving and is progressively worsening. She describes it as burning and bilateral. She states that it radiates down into the upper thoracic back and periodically down the arms. She denies any weakness or neurological deficit. She states that she was adjusted on Thursday without improvement in her pain and readjusted on by the chiropractor without improvement. She denies any change in her pain. She takes Tylenol. Denies any fever, chills, vision changes, nausea, vomiting. Review of systems: See HPI Medications: As listed on the chart Allergies: As listed on the chart PFSH: Per chart Vital signs: As listed on the chart. Reviewed. Physical exam: Gen: A&O x3, NAD Head: Normocephalic, atraumatic Eyes: No sclera icterus, conjunctiva clear, PERRL, EOMI ENT: Moist mucous membranes, No facial asymmetry Neck: Trachea midline, No JVD full range of motion, no midline spinal tenderness, no bony step-offs, mild tenderness to palpation of the paraspinal musculature of the bilateral cervical spine CV: RRR, no murmurs, no peripheral edema Resp: Lungs CTA BL, no w/r/c Musc: Full ROM, no deformity, strength +5/5 in all extremities Skin: Warm, dry, intact Neuro: Alert, oriented, grossly intact, sensation intact, no focal deficits Psych: Cooperative, appropriate mood and affect [facility] Medical History (Updated 03/13/24 @ 00:[address] Christopher Greenfield, ) Acute pharyngitis Burn of right upper extremity Atherosclerosis of coronary artery of [place] heart without angina pectoris Fibromyalgia Menopausal hot flushes Symptoms of gastroesophageal reflux Hypertension Hyperparathyroidism Paresthesia Skin cancer GERD (gastroesophageal reflux disease) Osteopenia Osteoarthritis Heart murmur Hormone deficiency High cholesterol Headache Gastrointestinal problem Cataracts, bilateral Breast cancer Breast lump UTI (urinary tract infection) Back problem Arthritis Hx of breast cancer Home Medications ?Medication ?Instructions ?Recorded ?Last Taken ?Type acetaminophen 500 mg tablet 1,000 mg PO BID PRN Pain 06/10/23 Unknown History (Tylenol Extra Strength) pantoprazole 40 mg tablet,delayed 40 mg PO DAILY 11/20/23 Unknown History release zoledronic acid 5 mg/100 mL in 1 ea .Route ONCE #100 mL 02/22/24 Unknown Rx mannitol 5 %-water intravenous piggybck amoxicillin 875 mg-potassium 1 tab PO BID 7 days #14 tabs 03/06/24 Unknown Rx clavulanate 125 mg tablet cyclobenzaprine 5 mg tablet 5 mg PO TID PRN muscle spasm 3 03/13/24 Unknown Rx days #9 tabs Allergy/AdvReac Type Severity Reaction Status Date / Time duloxetine (From Cymbalta) AdvReac Mild dizziness Verified 03/12/24 20:44 Family History Father Heart disease Mother Heart disease Osteoporosis Thyroid disorder Brother Heart disease Hypertension Hypercholesterolemia Daughter Cancer Sister Arthritis Hypertension Hypercholesterolemia Osteoporosis Thyroid disorder Surgical History History of left heart catheterization (08/16/20) History of endoscopy History of colonoscopy History of lumpectomy Hx of cataract surgery H/O: hysterectomy Social History Smoking Status: Never smoker alcohol intake: never substance use type: does not use what type of physical activity do you participate in: walking and weight training frequency: 1-2 times per week EXAM Physical Exam Const Vital Signs: 03/12/24 20:45 Temperature 97.7 F L Temperature Source Temporal Pulse Rate 84 Respiratory Rate 16 Blood Pressure 175/78 H Blood Pressure Mean 110 Pulse Ox 98 Oxygen Delivery Method Room Air MDM MDM MDM Narrative Medical decision making narrative: 74-year-old female with chronic neck pain presents for evaluation of neck pain. Differential diagnosis includes but is not limited to myofascial spasm, stenosis, arthritis, cervical radiculopathy. However given that patient is manipulated weekly with worsening pain cannot rule out fracture or vertebral injury. Toradol and Flexeril ordered for pain. I do not think any laboratory workup is needed at this time or emergent MRI. CTA neck will be ordered to assess for fracture or vertebral injury given her manipulation. CTA shows minimal calcifications. No stenosis. She has small caliber left vertebral artery. All vessels are patent with no stenosis or occlusion. No injury. No fracture. On reevaluation, patient's pain has improved. I suspect that there is a component of myofascial spasm versus cervical radiculopathy as patient endorses burning pain. Patient was educated to take Tylenol and heating pad as needed. Will prescribe a short course of Flexeril. She was educated not to drive or operate heavy machinery. She was educated that this can make you tired and increased falls. She is to follow-up with PCP and will refer her to orthopedic spine. She confirmed understanding the plan. Patient stable to discharge home. Impression: 1. Chronic neck pain 2. Frequent manipulation by chiropractor Radiography Diagnostic Testing: Clinical Impression(s) from Imaging Studies Neck CTA 03/12/24 22:15 IMPRESSION: 1. Minimal calcifications in the carotid bulbs and proximal internal carotid arteries slightly greater on the right. There is no stenosis. 2. Small caliber left vertebral artery. The right vertebral artery the main supplier to the basilar system. All vessels are patent with no stenosis or occlusion. Electronically Signed: Arden Lake MD at 23:57 EST , Discharge Plan Triage Chief Complaint: Back ED Provider: Christopher Greenfield Dx/Rx/DC Orders Clinical Impression: Neck pain Instructions: ED Neck Pain Prescriptions: New cyclobenzaprine 5 mg tablet 5 mg PO TID PRN (Reason: muscle spasm) 3 Days Qty: 9 0RF No Action acetaminophen [Tylenol Extra Strength] 500 mg tablet 1,000 mg PO BID PRN (Reason: Pain) zoledronic kbym-vphzjsju-emvnz 5 mg/100 mL piggyback 1 ea .Route ONCE Qty: 100 0RF Rx Instructions: onceinfuse over 20 minutes amoxicillin-pot clavulanate 875-125 mg tablet 1 tab PO BID 7 Days Qty: 14 0RF pantoprazole 40 mg tablet,delayed release (DR/EC) 40 mg PO DAILY Primary Care Provider: Yuval Woods Referrals: Ruslan Guzman MD [Med Staff - Active Staff] - 3-5 Days Yuval Woods MD [Primary Care Provider] - 3-5 Days Activity Restrictions/Additional Instructions: Tylenol as needed for pain. Do not drive or operate heavy machinery while taking muscle relaxers. Follow-up with primary care physician as well as orthopedic physician. Print Language: [place] Disposition Disposition: Home, Self Care
[2024-03-13 00:29] VITALS: BP 163/78; PULSE 71; RESP 18; TEMP 36.9; O2SAT 98
== END 2024-03-13 00:29 | disposition home or self-care (01) ==
PROVIDERS: Emergency Provider Surgery; PCP Internal Medicine; Visit Provider Surgery
DX: M54.2 Cervicalgia (principal); G89.29 Other chronic pain; I25.10 Atherosclerotic heart disease of native coronary artery without angina pectoris; Z79.899 Other long term (current) drug therapy
CPT/HCPCS: 70498; 96374; 99283; Q9967; A4216

== ENCOUNTER → 2024-03-30 | Outpatient (CLI) | payer MEDICARE, OTHER, SELFPAY ==
--- NOTE | 2024-03-30 12:33 | MRI_ITS ---
PROCEDURE: MRI SPINE CERVICAL (ROUTINE) REASON FOR EXAM: Pain. TECHNIQUE: Noncontrast cervical spine MRI. COMPARISON: Cervical spine radiograph from 03/14/2024. FINDINGS: Cervical vertebral bodies maintain a normal height and alignment. There is diminished signal intensity involving the discs throughout the cervical spine related to degenerative disc disease. Multilevel disc space narrowing with endplate spurring is present which is of mostly on a jhpd-qv-njhgcebd basis. No acute fracture or subluxation is identified. Cervical spinal cord demonstrates a normal signal intensity and morphology. Cerebellar tonsils are within normal range. There is atrophy of the paraspinous musculature. Individual levels: C2-3: Mild disc osteophyte complex with facet/uncovertebral changes. No significant central canal stenosis or right neural foraminal narrowing is present. There is mild left neural foraminal narrowing. C3-4: Mild anterolisthesis with disc osteophyte complex results in mild flattening of the ventral thecal sac with no significant central canal stenosis. Facet/uncovertebral changes are identified with moderate left neural foraminal narrowing. Right neural foramina is patent. C4-5: Mild anterolisthesis with disc osteophyte complex results in mild flattening of the ventral thecal sac with no significant central canal stenosis. Facet/uncovertebral changes are present with moderate left and mild right neural foraminal narrowing. C5-6: Disc osteophyte complex results in mild flattening of the ventral thecal sac with mild central canal stenosis. Facet/uncovertebral changes are present with severe right and moderate to severe left neural foraminal narrowing. C6-7: Mild disc osteophyte complex results in mild flattening of the ventral thecal sac with no significant central canal stenosis. Facet/uncovertebral changes are present with severe left and moderate to severe right neural foraminal narrowing. C7-T1: No disc herniation or central canal stenosis is present. No significant neural foraminal narrowing is identified. MRI/Spine Cervical (Routine) IMPRESSION: 1. Multilevel degenerative disc disease and spondylosis with mild central canal stenosis at C5-C6. Multilevel varying degrees of neural foraminal narrowing are identified as above. 2. No abnormal cord signal. Reading Location: [facility]
== END | disposition home or self-care (01) ==
PROVIDERS: PCP Internal Medicine; Referring Provider Student in an Organized Health Care Education/Training Program; Visit Provider Student in an Organized Health Care Education/Training Program
DX: M54.12 Radiculopathy, cervical region (principal)
CPT/HCPCS: 72141

== ENCOUNTER → 2024-04-04 | Outpatient (CLI) | payer MEDICARE, OTHER, SELFPAY ==
[2024-04-04 15:45] LABS: Erythrocyte Sedimentation Rate 5 mm/hr (0-30)
[2024-04-04 15:47] LABS: Absolute Lymphocyte Count 0.65 X10^3/uL (0.83-4.51); Absolute Neutrophil Count 5.8 X10^3/uL (2.0-7.7); Basophil# 0.04 X10^3/uL; Basophil% 0.6 % (0-1); Eosinophil# 0.04 X10^3/uL; Eosinophils% 0.6 % (0-5); Hematocrit 37.3 % (37-47); Hemoglobin 12.7 g/dL (12.0-15.0); Lymphocyte # 0.65 X10^3/ul (0.83-4.51); Mean Platelet Vol. 9.7 fl (6.2-12.0); Monocyte# 0.74 X10^3/uL; Monocyte% 10.2 % (0-10); NRBC Flagged by Analyzer 0 % (0-5); Neutrophil # 5.77 X10^3/uL (2.7-7.7); Neutrophil % 79.3 % (47-70); Platelet Count 332 K/mm3 (150-450); RBC Distribution Width SD 41.7 fl (35.1-43.9); Red Blood Count 3.97 M/mm3 (4.2-5.4); White Blood Count 7.3 K/mm3 (4.4-11.0)
[2024-04-04 16:32] LABS: ALB/GLOB Ratio 1.1 RATIO (0.9-2.4); AST(SGOT) 15 U/L (15-37); Alanine Aminotransfer ALT/SGPT 19 U/L (13-56); Albumin, Serum 3.9 g/dL (3.2-5.0); Alkaline Phosphatase 61 U/L (45-117); Anion Gap 7 (5-15); BUN 8 mg/dL (7-18); BUN/Creat Ratio 13.2 RATIO (10-20); CRP < 2.90 mg/L (0.0-3.0); Calcium,Total 9.2 mg/dL (8.5-10.1); Chloride 100 mmol/L (98-107); Creatinine, Serum 0.61 mg/dL (0.55-1.02); EST Glomerular Filtration Rate 102 mL/min (>60); Est Glom Filt Rate - Afr Amer 124 mL/min (>60); Globulin 3.4 g/dL (2.2-4.2); Glucose 98 mg/dL (74-106); Magnesium 2.4 mg/dL (1.6-2.6); Potassium 3.5 mmol/L (3.5-5.1); Protein, Total 7.3 g/dL (6.4-8.2); Sodium Level 134 mmol/L (136-145); Thyroid Stim Hormone (TSH) 0.735 uIU/mL (0.358-3.740)
[2024-04-06 13:07] LABS: ANTINUCLEAR ANTIBODIES DIRECT Negative (Negative)
[2024-04-06 17:07] LABS: Free Kappa Light Chains 14.7 mg/L (3.3-19.4); Free Lambda Light Chains 11.5 mg/L (5.7-26.3)
== END | disposition home or self-care (01) ==
LOC: MTLAB 11:27
PROVIDERS: PCP Internal Medicine
DX: R53.83 Other fatigue (principal); G62.9 Polyneuropathy, unspecified
CPT/HCPCS: 80053; 83735; 83883; 84443; 85025; 85652; 86038; 86140; 86225; 86235

== ENCOUNTER 2024-04-05 09:31 | Outpatient (CLI) | payer MEDICARE, OTHER, SELFPAY ==
[2024-04-05] MEDS: Zoledronic Acid 5 MG 100 ML 300 MG IV (09:54)
[2024-04-05 09:58] VITALS: BP 126/58; PULSE 83; RESP 16; TEMP 35.8; O2SAT 98; BMI 26.2
[2024-04-05 10:31] VITALS: BP 103/64; PULSE 71; RESP 16; TEMP 36.2; O2SAT 98
== END 2024-04-05 23:59 | disposition home or self-care (01) ==
LOC: MEDOUTP 09:33
PROVIDERS: PCP Internal Medicine; Referring Provider Internal Medicine Endocrinology, Diabetes & Metabolism; Visit Provider Internal Medicine Endocrinology, Diabetes & Metabolism
DX: M81.0 Age-related osteoporosis without current pathological fracture (principal)
CPT/HCPCS: 96365; A4216; J3489

== ENCOUNTER 2024-04-12 13:21 | Emergency (ER) | payer MEDICARE, OTHER, SELFPAY ==
[2024-04-12 13:22] VITALS: BP 132/75; PULSE 85; RESP 16; TEMP 36.9; O2SAT 99
--- NOTE | 2024-04-12 15:27 | EDS_ITS ---
HPI History of Present Illness Chief Complaint: Syncope [facility] Medical History (Updated 04/12/24 @ 18:[address] Easton Hanson, DO) Episode of syncope Influenza B Acute pharyngitis Burn of right upper extremity Atherosclerosis of coronary artery of [place] heart without angina pectoris Fibromyalgia Menopausal hot flushes Symptoms of gastroesophageal reflux Hypertension Hyperparathyroidism Paresthesia Skin cancer GERD (gastroesophageal reflux disease) Osteopenia Osteoarthritis Heart murmur Hormone deficiency High cholesterol Headache Gastrointestinal problem Cataracts, bilateral Breast cancer Breast lump UTI (urinary tract infection) Back problem Arthritis Hx of breast cancer Home Medications ?Medication ?Instructions ?Recorded ?Last Taken ?Type acetaminophen 500 mg tablet 1,000 mg PO BID PRN Pain 0 06/10/23 Unknown History (Tylenol Extra Strength) pantoprazole 40 mg tablet,delayed 40 mg PO DAILY 11/19 Unknown History
--- NOTE | 2024-04-12 15:27 | EX.ED.DYSGE1 ---
HPI History of Present Illness Chief Complaint: Syncope [facility] Medical History (Updated 04/12/24 @ 18:[address] Easton Hanson, DO) Episode of syncope Influenza B Acute pharyngitis Burn of right upper extremity Atherosclerosis of coronary artery of [place] heart without angina pectoris Fibromyalgia Menopausal hot flushes Symptoms of gastroesophageal reflux Hypertension Hyperparathyroidism Paresthesia Skin cancer GERD (gastroesophageal reflux disease) Osteopenia Osteoarthritis Heart murmur Hormone deficiency High cholesterol Headache Gastrointestinal problem Cataracts, bilateral Breast cancer Breast lump UTI (urinary tract infection) Back problem Arthritis Hx of breast cancer Home Medications ?Medication ?Instructions ?Recorded ?Last Taken ?Type acetaminophen 500 mg tablet 1,000 mg PO BID PRN Pain 06/10/23 Unknown History (Tylenol Extra Strength) pantoprazole 40 mg tablet,delayed 40 mg PO DAILY 11/20/23 Unknown History release zoledronic acid 5 mg/100 mL in 1 ea .Route ONCE #100 mL 02/22/24 Unknown Rx mannitol 5 %-water intravenous piggybck vitamin D3 500 unit-vit K 500 1 tab PO QDAY 04/04/24 Unknown History mcg-berberine 90 mg-hops 370 mg tablet cholecalciferol (vitamin D3) 1,250 1,250 mcg PO QWEEK #4 caps 04/05/24 Unknown Rx mcg (50,000 unit) capsule cyanocobalamin (vitamin B-12) 100 mcg subcut QMONTH 04/05/24 Unknown History 1,000 mcg/mL injection solution gabapentin 100 mg capsule 100 mg PO BID #60 caps 04/06/24 Unknown Rx Allergy/AdvReac Type Severity Reaction Status Date / Time duloxetine (From Cymbalta) AdvReac Mild dizziness Verified 04/12/24 13:22 Family History Father Heart disease Mother Heart disease Osteoporosis Thyroid disorder Brother Heart disease Hypertension Hypercholesterolemia Daughter Cancer Sister Arthritis Hypertension Hypercholesterolemia Osteoporosis Thyroid disorder Surgical History History of left heart catheterization (08/16/20) History of endoscopy History of colonoscopy History of lumpectomy Hx of cataract surgery H/O: hysterectomy Social History Smoking Status: Never smoker alcohol intake: never substance use type: does not use what type of physical activity do you participate in: walking and weight training frequency: 1-2 times per week EXAM Physical Exam Const Vital Signs: 04/12/24 13:22 04/12/24 15:30 04/12/24 15:31 Temperature 98.5 F Temperature Source Oral Pulse Rate 85 75 Respiratory Rate 16 14 Respiratory Effort Normal Non-Labored Respiratory Pattern Normal Blood Pressure 132/75 H 151/83 H Blood Pressure Mean 94 105 Pulse Ox 99 99 Oxygen Delivery Method Room Air Room Air 04/12/24 17:00 04/12/24 18:59 Temperature 99 F Temperature Source Pulse Rate 81 66 Respiratory Rate 12 18 Respiratory Effort Respiratory Pattern Blood Pressure 131/76 H 133/75 H Blood Pressure Mean 94 94 Pulse Ox 97 96 Oxygen Delivery Method Room Air MDM MDM MDM Narrative Medical decision making narrative: HISTORY OF PRESENT ILLNESS: 74 F here with concern for a syncopal episode urgent care. Notes unwitnessed but approximately 30 seconds loss of consciousness. Notes patient was tested positive for flu B. She notes diffuse weakness muscle aches nausea and fevers. She complains of headache after fall. Denies new back pain. REVIEW OF SYSTEMS: Pertinent positives: Syncope, head trauma, diffuse weakness, nausea and fever Pertinent negatives: Focal weakness, chest pain PHYSICAL EXAM: Nursing triage notes reviewed, Vital signs reviewed Constitutional: please see mdm HENT: MMM Eyes: Pupils equal round and reactive to light, Extraocular muscles intact Neck: No stridor, no JVD, full neck ROM Lungs: Clear to auscultation, No wheezing or rales. No increased work of breathing, no conversational dyspnea, no accessory muscle use, no nasal flaring. No respiratory distress noted Heart: Regular rate and rhythm, No murmurs, No rubs and No gallops, 2+ distal pulses (radial, femoral, posterior tibial) in all extremities Abdomen: Soft, there is no tenderness, rigidity, rebound or guarding, no obvious peritoneal signs, no palpable pulsatile abdominal masses, no auscultated abdominal bruit : No CVAT Extremities: No edema Neuro: No new focal neurological deficits, cranial nerves II through XII intact, 5/5 strength in all present extremities. Intact sensation to light touch in all present extremities, 2+ reflexes bilateral patella tendons. Skin: No rash or lesions noted MEDICAL DECISION MAKING: Chief Complaint: syncope, fall, back pain External records reviewed: Reviewed prior microbiology studies Factors affecting care: fibromyalgia, hyperlipidemia Social determinants of health: none History obtained from others: none Consults: none MDM Narrative: Patient was initially hemodynamically stable, afebrile and nontoxic-appearing. Exam without obvious traumatic injury however there is a question if the patient hit her head. No obvious step-offs or deformities noted to the lumbar spine. I considered the following differential diagnosis: ICH, lumbar spine fractures occasion, arrhythmia, anemia, electro disturbance, dehydration ALL IMAGES (IF OBTAINED) HAVE BEEN PERSONALLY REVIEWED AND INTERPRETED BY MYSELF. EKG with normal sinus rhythm rate of 77, left axis deviation, normal intervals, no STEMI I have personally reviewed the patient's chest x-ray. Chest x-ray is unremarkable for pulmonary edema, pneumothorax, pneumonia or focal cardiopulmonary abnormality. CT scan of the head, cervical spine negative for acute traumatic injury High-sensitivity troponin is negative, no evidence of myocardial ischemia CBC without leukocytosis, severe anemia, no thrombocytopenia. CMP without evidence of acute kidney injury, significant electrolyte abnormality (noted mild hyponatremia), anion gap to suggest end organ hypo-perfusion, no evidence of metabolic acidosis with a normal bicarbonate, no evidence of hepatobiliary obstructive pathology. I suspect patient's presentation is likely secondary to dehydration from influenza B as noted by hyponatremia. I suspect this would lead to her syncopal episode. There is no sign of myocardial ischemia, arrhythmia, anemia or electrolyte disturbances that would precipitate syncope. No events on court monitor while in the ED. Tertiary exam without new traumatic injury. Patient ambulated out significant difficulty here in the emergency department. Patient is appropriate discharge home. The patient and/or family, caregivers express understanding. The patient and/or family, caregivers agrees with the plan. Shared decision making: I will have a discussion with the patient and or visitors regarding risk/benefits of further testing or admission. They will be made aware of of the risk/benefits inherent in this decision they will be given the opportunity to voice understanding. Total critical care time today provided was at least 0 minutes. This excludes separately billable procedures. Critical care time (if documented) is secondary to the patient having high probability of clinically significant/life threatening deterioration in the patient's condition which required my urgent intervention. Impression: 1. Dehydration 2. Syncope 3. Influenza B 4. Hyponatremia Dispo: discharge home This note was generated with Motopiaation software. It may contain incorrect words, spelling, and punctuation that were not noted in review of the chart prior to signing. Lab Data Labs: Laboratory Results - last 24 hr 04/12/24 04/12/24 15:45 18:00 WBC 5.5 RBC 3.98 L Hgb 12.6 Hct 37.2 MCV 93.5 MCH 31.7 MCHC 33.9 RDW Std Deviation 41.4 RDW Coeff of Shefali 11.9 Plt Count 222 MPV 8.9 Sodium 130 L Potassium 3.8 Chloride 95 L Carbon Dioxide 26.0 Anion Gap 8 BUN 8 Creatinine 0.65 Estim Creat Clear Calc 57.44 Est GFR (MDRD) Af Amer 114 Est GFR (MDRD) Non-Af 95 BUN/Creatinine Ratio 12.3 Glucose 108 H Calcium 9.0 Total Bilirubin 0.30 AST 26 ALT 23 Alkaline Phosphatase 70 Troponin I High Sens 4 4 Total Protein 7.2 Albumin 3.6 Globulin 3.6 Albumin/Globulin Ratio 1.0 Radiography Diagnostic Testing: Clinical Impression(s) from Imaging Studies Brain CT 04/12/24 15:38 IMPRESSION: 1. No CT evidence of acute intracranial pathology. 2. Age-appropriate volume loss and remote small vessel ischemic changes Reading Location: [facility] Cervical Spine CT 04/12/24 15:39 IMPRESSION: Multilevel degenerative changes with no acute osseous abnormality in the cervical spine. One or more dose reduction techniques were used (e.g., Automated exposure control, adjustment of the mA and/or kV according to patient size, use of iterative reconstruction technique). Reading Location: [facility] Chest X-Ray 04/12/24 16:20 IMPRESSION: Cardiomegaly with chronic interstitial and COPD changes in the lungs. No definite acute infiltrate. Reading Location: [facility] Discharge Plan Triage Chief Complaint: Syncope ED Provider: Easton Hanson Dx/Rx/DC Orders Clinical Impression: Influenza B Instructions: The Flu (Influenza), ED Fainting, Uncertain Cause Prescriptions: No Action acetaminophen [Tylenol Extra Strength] 500 mg tablet 1,000 mg PO BID PRN (Reason: Pain) zoledronic yjgp-gfwjglol-csynt 5 mg/100 mL piggyback 1 ea .Route ONCE Qty: 100 0RF Rx Instructions: onceinfuse over 20 minutes vit D3-vit L-oxhrqguwp-mpxz [id number] kcds-rdl-rs-mg tablet 1 tab PO QDAY cholecalciferol (vitamin D3) 1,250 mcg (50,000 unit) capsule 1,250 mcg PO QWEEK Qty: 4 4RF gabapentin 100 mg capsule 100 mg PO BID Qty: 60 3RF pantoprazole 40 mg tablet,delayed release (DR/EC) 40 mg PO DAILY cyanocobalamin (vitamin B-12) 1,000 mcg/mL solution 100 mcg subcut QMONTH Primary Care Provider: Yuval Woods Referrals: Yuval Woods MD [Primary Care Provider] - Activity Restrictions/Additional Instructions: Thank you for trusting us with your care today! Your labs images were reassuring. No sign of traumatic injury to your head or neck. No sign of damage to your heart or significant kidney abnormalities. I suspect you are dehydrated given your slightly low sodium level. Please take in more electrolyte containing solution I recommend Body Armor Pedialyte. Please take Tylenol (2 pills, 650 mg), ibuprofen (2 pills, 400 mg) every 6 hours as needed for pain and fever control. Please return to the emergency department if your symptoms change or worsen. Please follow with your primary care physician for further outpatient evaluation and management. Print Language: Hebrew Disposition Disposition: Home, Self Care Discharge Date/Time: 04/12/24 19:16
[2024-04-12 15:30] VITALS: BP 151/83; PULSE 75; RESP 14; O2SAT 99; BMI 26.3
--- NOTE | 2024-04-12 15:38 | CT_ITS ---
EXAM: BRAIN/HEAD WITHOUT CONTRAST CLINICAL HISTORY: Fall, head injury COMPARISON: None. TECHNIQUE: Noncontrast images of the head with multiplanar reconstructions. Dose reduction techniques were used including intermediate exposure control (AEC),iterative reconstruction technique, and/or mA and/or KV dose adjustments based on patient's size. FINDINGS: CT HEAD FINDINGS: No acute intracranial hemorrhage, mass, mass effect, midline shift or pathologic extra-axial fluid collection. Nonspecific periventricular white matter changes are noted. Mild prominence of the ventricles, cisterns and sulci. Visualized paranasal sinuses and mastoid air cells are clear. The calvarium is grossly intact. CT/Brain/Head without Contrast IMPRESSION: 1. No CT evidence of acute intracranial pathology. 2. Age-appropriate volume loss and remote small vessel ischemic changes Reading Location: [facility]
--- NOTE | 2024-04-12 15:39 | CT_ITS ---
PROCEDURE: SPINE CERVICAL WITHOUT CONTRAS REASON FOR EXAM: Fall, neck pain TECHNIQUE: Cervical spine CT without contrast. COMPARISON: None. FINDINGS: Alignment: Normal Vertebrae: No acute fracture Soft Tissues: Unremarkable C1-2: Normal alignment. Dens appears intact. Degenerative changes about the atlantodental articulation C2-3: Unremarkable C3-4: Unremarkable C4-5: Unremarkable C5-6: Mild disc osteophyte complex causing mild compression on the canal C6-7: Mild disc osteophyte complex causing mild compression on the canal C7-T1: Unremarkable CT/Spine Cervical without Contras IMPRESSION: Multilevel degenerative changes with no acute osseous abnormality in the cervic al spine. One or more dose reduction techniques were used (e.g., Automated exposure contr ol, adjustment of the mA and/or kV according to patient size, use of iterative reconstruction technique). [facility]
[2024-04-12 15:57] LABS: Hematocrit 37.2 % (37-47); Hemoglobin 12.6 g/dL (12.0-15.0); Mean Corp Hgb Conc 33.9 g/dL (32-36); Mean Corpuscular Hgb 31.7 pg (27.0-32.0); Mean Corpuscular Volume 93.5 fL (81-99); Mean Platelet Vol. 8.9 fl (6.2-12.0); Platelet Count 222 K/mm3 (150-450); RBC Distribution Width CV 11.9 % (11.6-14.6); RBC Distribution Width SD 41.4 fl (35.1-43.9); Red Blood Count 3.98 M/mm3 (4.2-5.4); White Blood Count 5.5 K/mm3 (4.4-11.0)
[2024-04-12] MEDS: Ondansetron 4 MG/2 ML Vial IV (15:59)
[2024-04-12] MEDS: 0.9% Normal Saline (500mL Bag) 500 ML 1000 ML IV (16:02)
[2024-04-12] MEDS: Acetaminophen 325 MG Tablet 650 MG PO (16:02)
[2024-04-12 16:16] LABS: AST(SGOT) 26 U/L (15-37); Alanine Aminotransfer ALT/SGPT 23 U/L (13-56); Albumin, Serum 3.6 g/dL (3.2-5.0); Alkaline Phosphatase 70 U/L (45-117); Anion Gap 8 (5-15); BUN 8 mg/dL (7-18); BUN/Creat Ratio 12.3 RATIO (10-20); Chloride 95 mmol/L (98-107); Creatinine, Serum 0.65 mg/dL (0.55-1.02); EST Glomerular Filtration Rate 95 mL/min (>60); Est Glom Filt Rate - Afr Amer 114 mL/min (>60); Estimated Creatinine Clearance 57.44 ml/min; Globulin 3.6 g/dL (2.2-4.2); Glucose 108 mg/dL (74-106); Potassium 3.8 mmol/L (3.5-5.1); Protein, Total 7.2 g/dL (6.4-8.2); Sodium Level 130 mmol/L (136-145); Troponin-I HS (w/2H Reflex) 4 pg/mL (3.0-54.0)
--- NOTE | 2024-04-12 16:20 | RAD_ITS ---
PROCEDURE: CHEST 1 VIEW (PORTABLE) REASON FOR EXAM: Weakness, rule out pneumonia TECHNIQUE: Frontal view of the chest COMPARISON: 07/23/2023 FINDINGS: Heart size is mildly enlarged. There are atherosclerotic calcifications of the thoracic aorta. There are chronic-appearing changes of both lungs. Hyperinflated lungs. The bones are unremarkable. RAD/Chest 1 View (Portable) IMPRESSION: Cardiomegaly with chronic interstitial and COPD changes in the lungs. No defin ite acute infiltrate. Reading Location: [facility]
[2024-04-12 17:00] VITALS: BP 131/76; PULSE 81; RESP 12; O2SAT 97
[2024-04-12 17:53] LABS: Reflex Troponin-HS? (from REC) Y
[2024-04-12 18:37] LABS: Troponin-I HS 4 pg/mL (3.0-54.0)
[2024-04-12 18:59] VITALS: BP 133/75; PULSE 66; RESP 18; TEMP 37.2; O2SAT 96
== END 2024-04-12 19:16 | disposition home or self-care (01) ==
PROVIDERS: Emergency Provider Emergency Medicine; PCP Internal Medicine; Visit Provider Emergency Medicine
DX: J10.1 Influenza due to other identified influenza virus with other respiratory manifestations (principal); I25.10 Atherosclerotic heart disease of native coronary artery without angina pectoris
CPT/HCPCS: 70450; 71045; 72125; 80053; 84484; 85027; 93005; 96361; 96374; 96376; 99284; A4216; J2405

== ENCOUNTER 2024-04-16 17:02 | Emergency (ER) | payer MEDICARE, OTHER, SELFPAY ==
[2024-04-16 17:05] VITALS: BP 172/90; PULSE 73; RESP 17; TEMP 36.6; O2SAT 98
[2024-04-16 17:07] VITALS: BMI 25.9
--- NOTE | 2024-04-16 17:19 | ED.VIS.BACK ---
HPI History of Present Illness Chief Complaint: Back [facility] Medical History (Updated 04/12/24 @ 18:[address] Easton Hanson, DO) Episode of syncope Influenza B Acute pharyngitis Burn of right upper extremity Atherosclerosis of coronary artery of [place] heart without angina pectoris Fibromyalgia Menopausal hot flushes Symptoms of gastroesophageal reflux Hypertension Hyperparathyroidism Paresthesia Skin cancer GERD (gastroesophageal reflux disease) Osteopenia Osteoarthritis Heart murmur Hormone deficiency High cholesterol Headache Gastrointestinal problem Cataracts, bilateral Breast cancer Breast lump UTI (urinary tract infection) Back problem Arthritis Hx of breast cancer Home Medications ?Medication ?Instructions ?Recorded ?Last Taken ?Type acetaminophen 500 mg tablet 1,000 mg PO BID PRN Pain 06/10/23 Unknown History (Tylenol Extra Strength) pantoprazole 40 mg tablet,delayed 40 mg PO DAILY 11/20/23 Unknown History release zoledronic acid 5 mg/100 mL in 1 ea .Route ONCE #100 mL 02/22/24 Unknown Rx mannitol 5 %-water intravenous piggybck vitamin D3 500 unit-vit K 500 1 tab PO QDAY 04/04/24 Unknown History mcg-berberine 90 mg-hops 370 mg tablet cholecalciferol (vitamin D3) 1,250 1,250 mcg PO QWEEK #4 caps 04/05/24 Unknown Rx mcg (50,000 unit) capsule cyanocobalamin (vitamin B-12) 100 mcg subcut QMONTH 04/05/24 Unknown History 1,000 mcg/mL injection solution gabapentin 100 mg capsule 100 mg PO BID #60 caps 04/06/24 Unknown Rx Allergy/AdvReac Type Severity Reaction Status Date / Time duloxetine (From Cymbalta) AdvReac Mild dizziness Verified 04/16/24 17:05 Family History Father Heart disease Mother Heart disease Osteoporosis Thyroid disorder Brother Heart disease Hypertension Hypercholesterolemia Daughter Cancer Sister Arthritis Hypertension Hypercholesterolemia Osteoporosis Thyroid disorder Surgical History History of left heart catheterization (08/16/20) History of endoscopy History of colonoscopy History of lumpectomy Hx of cataract surgery H/O: hysterectomy Social History Smoking Status: Never smoker alcohol intake: never substance use type: does not use what type of physical activity do you participate in: walking and weight training frequency: 1-2 times per week EXAM Physical Exam Const Vital Signs: 04/16/24 17:05 Temperature 97.8 F Temperature Source Temporal Pulse Rate 73 Respiratory Rate 17 Blood Pressure 172/90 H Blood Pressure Mean 117 Pulse Ox 98 Oxygen Delivery Method Room Air [facility] Narrative Medical decision making narrative: HISTORY OF PRESENT ILLNESS: 74-year-old female presents with back pain after a fall 5 days ago. Patient denies any saddle anesthesia, urinary retention, bowel or bladder incontinence, lower extremity weakness, fever or IV drug use, no recent spinal manipulation or surgery, no recent urinary catheterization. REVIEW OF SYSTEMS: Pertinent positives: Back pain Pertinent negatives: Fever, loss of movement or sensation PHYSICAL EXAM: Nursing triage notes reviewed, Vital signs reviewed Constitutional: please see mdm Lungs: Clear to auscultation, No wheezing or rales. No increased work of breathing, no conversational dyspnea, no accessory muscle use, no nasal flaring. No respiratory distress noted Heart: Regular rate and rhythm, No murmurs, No rubs and No gallops, 2+ distal pulses (radial, femoral, posterior tibial) in all extremities Abdomen: Soft, there is no tenderness, rigidity, rebound or guarding, no obvious peritoneal signs, no palpable pulsatile abdominal masses, no auscultated abdominal bruit : No CVAT Extremities: No edema, intact range of motion in hip flexion extension, knee flexion extension and ankle plantarflexion dorsiflexion. Compartments are soft Back: No midline step-offs or deformities Neuro: Intact sensation L1-S1 dermatomal distributions. Intact 5/5 strength in hip flexion (T12-L3). Knee extension (L2-L4). Ankle dorsiflexion (L4-L5). Ankle plantar flexion (S1). Great toe extension (L5). 2+ patellar and Achilles DTRs. Skin: Ecchymosis noted to the left paraspinal muscles. MEDICAL DECISION MAKING: Chief Complaint: Back pain External records reviewed: Reviewed prior ED visit imaging studies Factors affecting care: Chronic back pain, fibromyalgia Social determinants of health: none History obtained from others: none Consults: none [facility] Narrative: Patient was initially hypertensive with blood pressure 172/90 otherwise afebrile and nontoxic-appearing. Exam with some bruising noted to the left paraspinal musculature however no midline step-offs deformities or TTP over the spine. She had a nonfocal lower extremity neurologic exam I considered the following differential diagnosis: Thoracic or lumbar spine fracture ALL IMAGES (IF OBTAINED) HAVE BEEN PERSONALLY REVIEWED AND INTERPRETED BY MYSELF. CT scan of the thoracic and lumbar spine are negative for acute bony injury. Incidental finding discussed. Patient is likely suffering from back contusion. Recommended Tylenol ibuprofen and follow-up with pain management The patient and/or family, caregivers express understanding. The patient and/or family, caregivers agrees with the plan. Shared decision making: I will have a discussion with the patient and or visitors regarding risk/benefits of further testing or admission. They will be made aware of of the risk/benefits inherent in this decision they will be given the opportunity to voice understanding. Total critical care time today provided was at least 0 minutes. This excludes separately billable procedures. Critical care time (if documented) is secondary to the patient having high probability of clinically significant/life threatening deterioration in the patient's condition which required my urgent intervention. Impression: 1. Back contusion 2. Acute on chronic back pain Dispo: Discharge home This note was generated with [employer] dictation software. It may contain incorrect words, spelling, and punctuation that were not noted in review of the chart prior to signing. Radiography Diagnostic Testing: Clinical Impression(s) from Imaging Studies Lumbar Spine CT 04/16/24 17:20 IMPRESSION: No acute osseous abnormality. One or more dose reduction techniques were used (e.g., Automated exposure control, adjustment of the mA and/or kV according to patient size, use of iterative reconstruction technique). Reading Location: [facility] Thoracic Spine CT 04/16/24 17:20 IMPRESSION: No acute osseous abnormality. Minimal dextroscoliosis. Mild multilevel degenerative changes of the midthoracic spine. 4 mm nodule in the right lower lobe. Moderate LAD coronary artery calcifications. No paraspinal mass. One or more dose reduction techniques were used (e.g., Automated exposure control, adjustment of the mA and/or kV according to patient size, use of iterative reconstruction technique). Reading Location: [facility] Discharge Plan Triage Chief Complaint: Back ED Provider: Easton Hanson Dx/Rx/DC Orders Prescriptions: No Action acetaminophen [Tylenol Extra Strength] 500 mg tablet 1,000 mg PO BID PRN (Reason: Pain) zoledronic tlkx-rikailzl-inlpd 5 mg/100 mL piggyback 1 ea .Route ONCE Qty: 100 0RF Rx Instructions: onceinfuse over 20 minutes vit D3-vit K-symrxkbir-muou [id number] gwgl-sdk-rk-mg tablet 1 tab PO QDAY cholecalciferol (vitamin D3) 1,250 mcg (50,000 unit) capsule 1,250 mcg PO QWEEK Qty: 4 4RF gabapentin 100 mg capsule 100 mg PO BID Qty: 60 3RF pantoprazole 40 mg tablet,delayed release (DR/EC) 40 mg PO DAILY cyanocobalamin (vitamin B-12) 1,000 mcg/mL solution 100 mcg subcut QMONTH Primary Care Provider: Yuval Woods Referrals: Yuval Woods MD [Primary Care Provider] - Print Language: Kyrgyz
--- NOTE | 2024-04-16 17:20 | CT_ITS ---
PROCEDURE: CT thoracic spine without IV contrast REASON FOR EXAM: Pain, trauma TECHNIQUE: Multiple contiguous axial images through the thoracic spine were obtained without the administration of intravenous contrast. Two-dimensional coronal and sagittal reformatted images were reconstructed. Low-dose imaging technique was utilized. COMPARISON: None. FINDINGS: See impression CT/Spine Thoracic without Contras IMPRESSION: No acute osseous abnormality. Minimal dextroscoliosis. Mild multilevel degene rative changes of the midthoracic spine. 4 mm nodule in the right lower lobe. Moderate LAD coronary artery calcifications. No paraspinal mass. One or more dose reduction techniques were used (e.g., Automated exposure contr ol, adjustment of the mA and/or kV according to patient size, use of iterative reconstruction technique). Reading Location: [facility]
--- NOTE | 2024-04-16 17:20 | CT_ITS ---
PROCEDURE: CT lumbar spine without IV contrast REASON FOR EXAM: Pain, trauma. TECHNIQUE: Multiple contiguous axial images through the lumbar spine were obtained without the administration of intravenous contrast. Two-dimensional coronal and sagittal reformatted images were reconstructed. Low-dose imaging technique was utilized. COMPARISON: None. FINDINGS: No acute osseous abnormality. Moderate degenerative changes of the lower lumbar spine including degenerative disc disease and facet arthropathy. Suspected mild spinal stenosis at L2-3 and L4-5 due to posterior disc bulges. No high-grade foraminal narrowing within limits of CT. Sacroiliac joints are intact. No paraspinal mass. Distal colonic diverticulosis. CT/Spine Lumbar without Contrast IMPRESSION: No acute osseous abnormality. One or more dose reduction techniques were used (e.g., Automated exposure contr ol, adjustment of the mA and/or kV according to patient size, use of iterative reconstruction technique). Reading Location: [facility]
[2024-04-16 19:02] VITALS: BP 172/90; PULSE 73; RESP 17; TEMP 36.6; O2SAT 98
== END 2024-04-16 19:14 | disposition home or self-care (01) ==
PROVIDERS: Emergency Provider Emergency Medicine; PCP Internal Medicine; Visit Provider Emergency Medicine
DX: S20.229A Contusion of unspecified back wall of thorax, initial encounter (principal); I25.10 Atherosclerotic heart disease of native coronary artery without angina pectoris; G89.29 Other chronic pain; W19.XXXA Unspecified fall, initial encounter
CPT/HCPCS: 72128; 72131; 99282

== ENCOUNTER 2024-04-18 12:13 | Emergency (ER) | payer MEDICARE, OTHER, SELFPAY ==
[2024-04-18 12:14] VITALS: BP 155/87; PULSE 87; RESP 16; TEMP 36.8; O2SAT 99
[2024-04-18 12:17] VITALS: BMI 26.0
--- NOTE | 2024-04-18 12:42 | ED.RN ---
Patient denies wanting intermediate placement but states she cannot take care of herself at home. States she is not eating normally. Patient educated that it can take a couple of weeks until she if feeling normal again post flu. Patient also educated on the importance of making sure she is eating and drinking at home that way her body has fuel. Social work notified of patients situation and multiple visits over the last 1-2 weeks.
--- NOTE | 2024-04-18 13:25 | EKG12_ITS ---
Test Reason : Blood Pressure : */* mmHG Vent. Rate : 65 BPM Atrial Rate : 65 BPM P-R Int : 146 ms QRS Dur : 86 ms QT Int : 420 ms P-R-T Axes : 54 1 53 degrees QTcB Int : 436 ms Sinus rhythm with Premature atrial complexes Otherwise normal ECG Confirmed by Lorenzo Weeks ([id number]), advertising editor ARELI SOLIS ([id number]) on 04/20/2024 8:01:19 AM Referred By: Confirmed By: Lorenzo Weeks
[2024-04-18 13:37] LABS: Mucous, Urine 0 SEEN /hpf (<or=2+); Squamous Epithelial Cells - UA 0 SEEN /hpf (5-10); White Blood Cells 0 SEEN /hpf (0-5)
[2024-04-18 13:39] LABS: Absolute Lymphocyte Count 0.59 X10^3/uL (0.83-4.51); Absolute Neutrophil Count 3.9 X10^3/uL (2.0-7.7); Basophil# 0.02 X10^3/uL; Basophil% 0.4 % (0-1); Eosinophil# 0.02 X10^3/uL; Eosinophils% 0.4 % (0-5); Hematocrit 39.7 % (37-47); Hemoglobin 13.5 g/dL (12.0-15.0); Lymphocyte # 0.59 X10^3/ul (0.83-4.51); Lymphocyte % 11.4 % (19-41); Mean Corpuscular Hgb 31.5 pg (27.0-32.0); Mean Corpuscular Volume 92.8 fL (81-99); Mean Platelet Vol. 8.8 fl (6.2-12.0); Monocyte# 0.64 X10^3/uL; Monocyte% 12.4 % (0-10); NRBC Flagged by Analyzer 0 % (0-5); Neutrophil # 3.88 X10^3/uL (2.7-7.7); POSITIVE DIFFERENTIAL YES; Platelet Count 249 K/mm3 (150-450); RBC Distribution Width CV 11.8 % (11.6-14.6); Red Blood Count 4.28 M/mm3 (4.2-5.4); White Blood Count 5.2 K/mm3 (4.4-11.0)
--- NOTE | 2024-04-18 13:40 | EDS_ITS ---
HPI History of Present Illness Chief Complaint: General Illness Narrative Narrative: 74-year-old female presenting to the emergency room for her third visit in 6 days. Patient was seen on 12 April after being diagnosed with influenza B at an urgent care. While there she had a brief syncopal episode. Evaluation in the emergency department showed a sodium of [address] of the brain and cervical spine patient returned 4 days later with back pain and underwent CT imaging of the thoracic and lumbar spine. She states that none of her doctors can see her because she still has influenza B and does not feel well. She is states that she has been trying to hydrate. She states that today her doctor ordered her sacrococcygeal x-rays which she had performed. She does not feel that she is able to care for herself at home. She is worried that she made have her heart stop while at home. She does not understand why she has not been admitted for influenza B (she does not have pneumonia hypoxia or significant GAURAV/dehydration). She feels near syncopal with walking (was able to walk to the bathroom without difficulty here in the emergency department). She notes a burning pain in her arms shoulders. She does not understand why the emergency department did not do further workup for her such as MRI despite not having acute neurologic deficits and negative CTs. [facility] Medical History Episode of syncope Influenza B Acute pharyngitis Burn of right upper extremity Atherosclerosis of coronary artery of [place] heart without angina pectoris Fibromyalgia Menopausal hot flushes Symptoms of gastroesophageal reflux Hypertension Hyperparathyroidism Paresthesia Skin cancer GERD (gastroesophageal reflux disease) Osteopenia Osteoarthritis Heart murmur Hormone deficiency High cholesterol Headache Gastrointestinal problem Cataracts, bilateral Breast cancer Breast lump UTI (urinary tract infection) Back problem Arthritis Hx of breast cancer Home Medications ?Medication ?Instructions ?Recorded ?Last Taken ?Type acetaminophen 500 mg tablet 1,000 mg PO BID PRN Pain 0 06/10/23 Unknown History (Tylenol Extra Strength) pantoprazole 40 mg tablet,delayed 40 mg PO DAILY 11/19 Unknown History release zoledronic acid 5 mg/100 mL in 1 ea .Route ONCE #100 m L 02/22/24 Unknown Rx mannitol 5 %-water intravenous piggybck vitamin D3 500 unit-vit K 500 1 tab PO QDAY 02/10/25 U nknown History mcg-berberine 90 mg-hops 370 mg tablet cholecalciferol (vitamin D3) 1,250 1,250 mcg PO QWEEK #4 caps 04/05/24 Unknown Rx mcg (50,000 unit) capsule cyanocobalamin (vitamin B-12) 100 mcg subcut QMONTH Unknown History 1,000 mcg/mL injection solution gabapentin 100 mg capsule 100 mg PO BID #60 caps 04/06 Unknown Rx Allergy/AdvReac Type Severity Reaction Status Date / Time duloxetine (From Cymbalta) AdvReac Mild dizziness Verified 04/18/24 12:17 Family History Father Heart disease Mother Heart disease Osteoporosis Thyroid disorder Brother Heart disease Hypertension Hypercholesterolemia Daughter Cancer Sister Arthritis Hypertension Hypercholesterolemia Osteoporosis Thyroid disorder Surgical History History of left heart catheterization (08/16/20) History of endoscopy History of colonoscopy History of lumpectomy Hx of cataract surgery H/O: hysterectomy Social History Smoking Status: Never smoker alcohol intake: never substance use type: does not use what type of physical activity do you participate in: walking and weight tra ining frequency: 1-2 times per week ROS ROS ED ROS Narrative Generalized weakness near syncope Constitutional Constitutional ED: Denies chills or weight loss Eyes Eyes: Denies change in vision or diplopia ENT ENT ED: Denies ear pain, rhinorrhea or sore throat Cardiovascular Cardiovascular: Denies chest pain, orthopnea, palpitations or racing heartbeat Respiratory/Chest Respiratory/Chest: Reports cough; Denies dyspnea or orthopnea Gastrointestinal Gastrointestinal: Denies abdominal pain, diarrhea, nausea or vomiting Genitourinary Genitourinary ED: Denies dysuria, hematuria or urinary frequency Musculoskeletal Musculoskeletal: Reports back pain, neck pain and other Details: Shoulder and arm pain ; Denies arthralgias or myalgias Integumentary Denies abscess or rash Neurologic Neurologic: Reports weakness; Denies headache(s) Psychiatric Psychiatric: Denies anxiety, depression, suicidal ideation or suicidal thoughts Endocrine Endocrinology: Denies polydipsia, polyphagia or polyuria Allergic/Immunologic Allergic/Immunologic ED: Denies mouth swelling, tongue swelling or urticaria EXAM Physical Exam Const Vital Signs: 04/18/24 12:14 04/18/24 12:38 Temperature 98.2 F Temperature Source Oral Pulse Rate 87 Respiratory Rate 16 Respiratory Effort Normal Respiratory Pattern Normal Blood Pressure 155/87 H Blood Pressure Mean 109 Pulse Ox 99 Oxygen Delivery Method Room Air Positive well nourished and well developed General Appearance ED: well developed and NAD HEENT Reports normocephalic, head/scalp atraumatic and moist mucous membranes Eyes PERRL and EOMs intact bilaterally Neck no lymphadenopathy, supple and no JVD Resp normal respiratory effort and clear to auscultation bilaterally Cardio regular rate, regular rhythm and no murmurs GI normal to inspection, nondistended, normoactive bowel sounds and non-tender Palpation: soft Back/Spine no CVA tenderness and normal ROM Back/Spine Narrative: There is contusion of varying color from purple to green in the left lateral lower thoracic lumbar region Extremity normal to inspection General Extremety ED: Negative for edema General Extremity: Negative for edema Neuro oriented x3 and CN's II-XII intact bilaterally Sensorium / Orientation: alert Motor Exam: strength 5/5 throughout Psych mental status grossly normal Mood & Affect: Negative for depressed or tearful Skin no rashes or lesions noted and no wounds MDM MDM MDM Narrative Medical decision making narrative: Differential diagnosis includes but not limited to dehydration electrolyte abnormalities pneumonia contusion myofascial strain radiculopathy Basic blood work appears grossly unchanged from prior including a sodium of 130. Troponin is normal at 4. Urinalysis shows no ketones no obvious infection. Her EKG is sinus with no PVCs. My independent interpretation of her chest x-ray is no acute process. I reviewed the above findings with the patient. I also reviewed her prior imaging from her prior ED visits. Patient is worried that she is going to go home and . I informed her I see no indication that that is of high li kelihood. She has multiple concerns such as I was passed out for a very long time which was 30 seconds which I would consider to be a short syncopal episode. I explained to the patient I do not see an indication for her to be admitted. I do not feel strongly that she needs to go to a detention. I think she has a normal response to influenza and soreness from passing out and hitting her back. History & Record Review Discussion w/independent historian: Patient Lab Data Attestation: I reviewed the patient's lab results. Labs: Laboratory Results - last 24 hr 04/18/24 04/18/24 13:29 13:30 WBC 5.2 RBC 4.28 Hgb 13.5 Hct 39.7 MCV 92.8 MCH 31.5 MCHC 34.0 RDW Std Deviation 40.0 RDW Coeff of Shefali 11.8 Plt Count 249 MPV 8.8 Immature Gran % (Auto) 0.400 Neut % (Auto) 75.0 H Lymph % (Auto) 11.4 L Bremer % (Auto) 12.4 H Eos % (Auto) 0.4 Baso % (Auto) 0.4 Absolute Neuts (auto) 3.9 Absolute Lymphs (auto) 0.59 L Nucleated RBC % 0 Sodium 130 L Potassium 3.8 Chloride 96 L Carbon Dioxide 27.0 Anion Gap 7 BUN 5 L Creatinine 0.56 Estim Creat Clear Calc 57.03 Est GFR (MDRD) Af Amer 137 Est GFR (MDRD) Non-Af 113 BUN/Creatinine Ratio 9.0 L Glucose 96 Calcium 8.9 Total Bilirubin 0.50 Direct Bilirubin 0.14 AST 36 ALT 36 Alkaline Phosphatase 73 Troponin I High Sens 4 Total Protein 7.8 Albumin 3.8 Globulin 4.0 Urine Color Straw Urine Clarity Clear Urine pH 7.0 Ur Specific [place] 1.005 Urine Protein Negative Urine Glucose (UA) Normal Urine Ketones Negative Urine Occult Blood Negative Urine Nitrite Negative Urine Bilirubin Negative Urine Urobilinogen Normal Ur Leukocyte Esterase Negative Urine WBC 0 SEEN Ur Squamous Epith Cells 0 SEEN Urine Bacteria RARE Urine Mucus 0 SEEN Radiography Diagnostic Testing: Clinical Impression(s) from Imaging Studies Chest X-Ray 04/18/24 14:11 IMPRESSION: Hyperinflation. COPD. Stable mild scarring at the lung bases. Reading Location: [facility] EKG Initial EKG: Attestation: I personally reviewed and interpreted this EKG as follows: Comments: Sinus rhythm with premature atrial complexes ventricular rate of 65 bpm. Management Discussion w/another healthcare provider: pick up worker/Case management Discharge Plan Triage Chief Complaint: General Illness ED Provider: Julien Holder Dx/Rx/DC Orders Clinical Impression: Influenza B, Back contusion, Acute shoulder pain, Bilateral arm pain Instructions: ED Influenza (Adult) Prescriptions: No Action acetaminophen [Tylenol Extra Strength] 500 mg tablet 1,000 mg PO BID PRN (Reason: Pain) zoledronic iqok-vgqhtwub-qluxm 5 mg/100 mL piggyback 1 ea .Route ONCE Qty: 100 0RF Rx Instructions: onceinfuse over 20 minutes vit D3-vit A-ilodfqsom-dwqz [id number] wowb-ysm-ki-mg tablet 1 tab PO QDAY cholecalciferol (vitamin D3) 1,250 mcg (50,000 unit) capsule 1,250 mcg PO QWEEK Qty: 4 4RF gabapentin 100 mg capsule 100 mg PO BID Qty: 60 3RF pantoprazole 40 mg tablet,delayed release (DR/EC) 40 mg PO DAILY cyanocobalamin (vitamin B-12) 1,000 mcg/mL solution 100 mcg subcut QMONTH Primary Care Provider: Yuval Woods Referrals: Yuval Woods MD [Primary Care Provider] - 1 Week Print Language: Finnish Disposition Disposition: Home, Self Care
[2024-04-18 13:45] LABS: Color, Urine Straw (Yellow); Glucose, Dipstick Normal (Normal); Ketone-Dipstick Negative (Negative); Leukocyte Esterase-Dipstick Negative /ul (Negative); Nitrite-Dipstick Negative (Negative); Occult Blood-Urine Negative /ul (Negative); Protein-Dipstick Negative (Negative); Specific Gravity, Urine 1.005 (1.002-1.030); Urine Bilirubin Dipstick Negative (Negative); Urine Clarity Clear (Clear); Urine Urobilinogen Normal (Normal)
[2024-04-18 14:01] LABS: AST(SGOT) 36 U/L (15-37); Alanine Aminotransfer ALT/SGPT 36 U/L (13-56); Albumin, Serum 3.8 g/dL (3.2-5.0); Alkaline Phosphatase 73 U/L (45-117); Anion Gap 7 (5-15); BUN 5 mg/dL (7-18); Bilirubin, Direct 0.14 mg/dL (0.00-0.30); Calcium,Total 8.9 mg/dL (8.5-10.1); Chloride 96 mmol/L (98-107); Creatinine, Serum 0.56 mg/dL (0.55-1.02); EST Glomerular Filtration Rate 113 mL/min (>60); Est Glom Filt Rate - Afr Amer 137 mL/min (>60); Estimated Creatinine Clearance 57.03 ml/min; Glucose 96 mg/dL (74-106); Potassium 3.8 mmol/L (3.5-5.1); Protein, Total 7.8 g/dL (6.4-8.2); Sodium Level 130 mmol/L (136-145); Troponin-I HS 4 pg/mL (3.0-54.0)
[2024-04-18 14:10] LABS: Bacteria RARE /hpf (None Seen)
--- NOTE | 2024-04-18 14:11 | RAD_ITS ---
PROCEDURE: CHEST 1 VIEW (PORTABLE) REASON FOR EXAM: Weakness. History of influenza. TECHNIQUE: Frontal view of the chest. COMPARISON: Comparison is made with prior study dated July 23, 2023. FINDINGS: The heart size is normal. Hyperinflation. Scattered calcified granulomas. Stable mild scarring at the lung bases. Atherosclerotic calcification of the aortic arch.
[2024-04-18 14:13] VITALS: PULSE 73; RESP 16; O2SAT 97
[2024-04-18 14:42] VITALS: BP 155/87; PULSE 73; RESP 16; TEMP 36.8; O2SAT 97
--- NOTE | 2024-04-18 19:01 | CM.ED ---
Social Work Patient was upset over decision that patient did not medically need admitted to the hospital. Patient stated that she was concerned to be at home as she lived alone and was afraid that she would pass out again as she had a few days prior. SW discussed all possible options including SNF placement, HH referral, private duty aides and staying with a family member. Patient stated she did not want to pay for a SNF, that she did not want HH referral or private branch exchange repairer list because they would not be with her continuously. Patient stated she would go stay with her niece until she felt better. No further needs identified at this time. Kala Conner, BAR TACKER, SECTION WEAVER
[2024-04-18 19:09] LABS: Red Blood Cells-Urine 0 SEEN /hpf (0-5)
== END 2024-04-18 14:57 | disposition home or self-care (01) ==
PROVIDERS: Emergency Provider Emergency Medicine; PCP Internal Medicine; Visit Provider Emergency Medicine
DX: J10.1 Influenza due to other identified influenza virus with other respiratory manifestations (principal); J44.0 Chronic obstructive pulmonary disease with (acute) lower respiratory infection; S20.229A Contusion of unspecified back wall of thorax, initial encounter; M79.621 Pain in right upper arm; M25.511 Pain in right shoulder; M79.622 Pain in left upper arm; M25.512 Pain in left shoulder; I25.10 Atherosclerotic heart disease of native coronary artery without angina pectoris; X58.XXXA Exposure to other specified factors, initial encounter
CPT/HCPCS: 71045; 80048; 80076; 81001; 84484; 85025; 93005; 99283; A4216

== ENCOUNTER → 2024-04-18 | Outpatient (CLI) | payer MEDICARE, OTHER, SELFPAY ==
--- NOTE | 2024-04-18 12:07 | RAD_ITS ---
EXAM: XR Sacrum and Coccyx, 2 or more Views CLINICAL INDICATION: TECHNIQUE: Frontal and lateral views of the sacrum and coccyx. COMPARISON: No relevant prior studies available. FINDINGS: SACRUM/COCCYX: Degenerative changes of the sacroiliac joints, bilaterally. No acute fracture. VERTEBRAE: No acute fracture. DISC SPACES: Zaae-yn-pesqjxwx degenerative changes of the pubic symphysis. SOFT TISSUES: Unremarkable. GASTROINTESTINAL TRACT: Fecal retention in the colon consistent with constipation. RAD/Sacrum-Coccyx min 2 Views IMPRESSION: 1. No acute fracture. 2. Fecal retention in the colon consistent with constipation. 3. Degenerative changes as above. Reading Location: [facility]
== END | disposition home or self-care (01) ==
LOC: RAD 11:58
PROVIDERS: PCP Internal Medicine
DX: M54.50 Low back pain, unspecified (principal)
CPT/HCPCS: 72220

== ENCOUNTER → 2024-05-11 | Outpatient (CLI) | payer MEDICARE, OTHER, SELFPAY ==
--- NOTE | 2024-05-11 14:20 | NEURO ---
NCS and/or EMG Patient Report Ordering Doctor: Anthony Mckeon DATE OF SERVICE: 05/11/24 Kelli presents with complaints of burning along the chest wall and upper arms. She has a history of left carpal tunnel release. Electrodiagnostic findings: Right median motor nerve demonstrates prolonged latency with normal amplitude and reduced conduction velocity left median motor nerve demonstrates normal distal latency, amplitude and conduction velocity. Ulnar motor response within normal limits bilaterally. Normal median ulnar F?waves. Prolonged right median sensory latency at the wrist. Normal ulnar and radial sensory responses. Needle EMG testing was performed in the upper limbs. All muscles tested showed no evidence of denervation with normal motor unit action potentials. Electrodiagnostic impression: This is an abnormal study in the upper limbs 1. Electrodiagnostic findings suggestive of right-sided median mononeuropathy. This consistent with a mild right carpal tunnel syndrome. 2. There is no electrodiagnostic evidence for cervical radiculopathy. Multi Select Codes Neurology Neurology Interp Codes: 88345-34 Musc test done w/n test comp (interp) (2) and 96906-40 Nrv cndj test 9-10 studies (interp)
== END | disposition home or self-care (01) ==
LOC: PSN 12:31
PROVIDERS: PCP Internal Medicine; Referring Provider Psychiatry & Neurology Neurology; Visit Provider Psychiatry & Neurology Neurology
DX: R20.2 Paresthesia of skin (principal); M54.2 Cervicalgia
CPT/HCPCS: 95886; 95911

== ENCOUNTER → 2024-05-17 | Outpatient (CLI) | payer MEDICARE, OTHER, SELFPAY ==
--- NOTE | 2024-05-17 13:25 | NEURO ---
NCS and/or EMG Patient Report Ordering Doctor: Anthony Mckeon DATE OF SERVICE: 05/17/24 Clinical Summary: 74 year old female patient with symptoms of burning pain in her feet. Nerve Conduction Studies Summary: Nerve conduction studies were performed in the bilateral lower extremities. The sural to radial amplitude ratio (SRAR) utilizing the right radial SNAP amplitude (35.5 microvolts) from the upper extremity study performed on 05/11/24 was 0.15. Needle Examination Summary: Needle examination of select muscles of the bilateral lower extremities was normal. Impression: This is an abnormal bilateral lower extremity study. The presence of a sural to radial amplitude ratio (SRAR) of less than 0.21, as seen in this study, is indicative of a mild, length dependent, sensory, axonal polyneuropathy. There is no electrodiagnostic evidence of a right or left lumbosacral radiculopathy. Multi Select Codes Neurology Neurology Interp Codes: 78998-24 Musc test done w/n test comp (interp) (2) and 15732-76 Nrv cndj test 7-8 studies (interp)
== END | disposition home or self-care (01) ==
PROVIDERS: PCP Internal Medicine; Referring Provider Psychiatry & Neurology Neurology; Visit Provider Psychiatry & Neurology Neurology
DX: R20.2 Paresthesia of skin (principal); R20.0 Anesthesia of skin; M54.50 Low back pain, unspecified
CPT/HCPCS: 95886; 95910; 95911

== ENCOUNTER → 2024-06-30 | Outpatient (CLI) | payer MEDICARE, OTHER, SELFPAY ==
[2024-06-30 15:55] LABS: Rheumatoid Factor < 10.0 IU/mL (<15)
[2024-07-04 14:08] LABS: SJOGREN'S Anti-SS-A test < 0.2 AI (0.0-0.9); SJOGREN'S Anti-SS-B test < 0.2 AI (0.0-0.9)
[2024-07-05 17:08] LABS: Vitamin B1, Thiamine 121.3 nmol/L (66.5-200.0)
== END | disposition home or self-care (01) ==
LOC: MTLAB 12:32
PROVIDERS: PCP Internal Medicine; Referring Provider Psychiatry & Neurology Neurology; Visit Provider Psychiatry & Neurology Neurology
DX: G62.9 Polyneuropathy, unspecified (principal); M19.90 Unspecified osteoarthritis, unspecified site; E04.1 Nontoxic single thyroid nodule
CPT/HCPCS: 36415; 82746; 84425; 84439; 86235; 86431

== ENCOUNTER 2024-08-13 18:33 | Emergency (ER) | payer MEDICARE, OTHER, SELFPAY ==
[2024-08-13 18:34] VITALS: BP 183/82; PULSE 81; RESP 16; TEMP 36.6; O2SAT 99
--- NOTE | 2024-08-13 20:31 | EKG12_ITS ---
Test Reason : PALPS Blood Pressure : */* mmHG Vent. Rate : 73 BPM Atrial Rate : 73 BPM P-R Int : 148 ms QRS Dur : 82 ms QT Int : 382 ms P-R-T Axes : 57 -15 39 degrees QTcB Int : 420 ms Sinus rhythm with Premature atrial complexes Minimal voltage criteria for LVH, may be normal variant ( R in aVL ) Borderline ECG Confirmed by Lorenzo Weeks ([id number]), copy editor ARELI SOLIS ([id number]) on 08/16/2024 11:50:01 AM Referred By: Confirmed By: Lorenzo Weeks
[2024-08-13 20:35] VITALS: BP 187/86; PULSE 70; RESP 12; O2SAT 100; BMI 26.4
--- NOTE | 2024-08-13 20:36 | ED.VIS.CHEST ---
HPI History of Present Illness Chief Complaint: Palpitations Informant: patient and family Narrative Narrative: 74-year-old female presenting to the emergency room with palpitations. Patient states that she has had PACs in the past but since starting ibuprofen for pain over the past week she has had increasing numbers of PACs. She also notes variable blood pressure sometimes reading high sometimes reading normal. She took a half a tablet of losartan today. She does see cardiology and has seen local cardiology. She has an appointment in August. The patient's not had any syncope. No chest pain but it is rather unsettling for her. She states she is very sensitive to her medications and she was on beta-blockers in the past and did not tolerate them well. Patient states that she has checked her vital signs with a pulse oximeter and seen pauses as well as pauses after the extra beats on her blood pressure cuff. She has never been diagnosed with A-fib a flutter or other dysrhythmia. She is not anticoagulated. [facility] Medical History Episode of syncope Influenza B Acute pharyngitis Burn of right upper extremity Atherosclerosis of coronary artery of [place] heart without angina pectoris Fibromyalgia Menopausal hot flushes Symptoms of gastroesophageal reflux Hypertension Hyperparathyroidism Paresthesia Skin cancer GERD (gastroesophageal reflux disease) Osteopenia Osteoarthritis Heart murmur Hormone deficiency High cholesterol Headache Gastrointestinal problem Cataracts, bilateral Breast cancer Breast lump UTI (urinary tract infection) Back problem Arthritis Hx of breast cancer Home Medications ?Medication ?Instructions ?Recorded ?Last Taken ?Type acetaminophen 500 mg tablet 1,000 mg PO BID PRN Pain 06/10/23 Unknown History (Tylenol Extra Strength) cholecalciferol (vitamin D3) 1,250 1,250 mcg PO QWEEK #4 caps 04/05/24 Unknown Rx mcg (50,000 unit) capsule cyanocobalamin (vitamin B-12) 100 mcg subcut QMONTH 04/05/24 Unknown History 1,000 mcg/mL injection solution Allergy/AdvReac Type Severity Reaction Status Date / Time duloxetine (From Cymbalta) AdvReac Mild dizziness Verified 08/13/24 18:34 Family History Father Heart disease Mother Heart disease Osteoporosis Thyroid disorder Brother Heart disease Hypertension Hypercholesterolemia Daughter Cancer Sister Arthritis Hypertension Hypercholesterolemia Osteoporosis Thyroid disorder Surgical History History of left heart catheterization (08/16/20) History of endoscopy History of colonoscopy History of lumpectomy Hx of cataract surgery H/O: hysterectomy Social History Smoking Status: Never smoker alcohol intake: never substance use type: does not use what type of physical activity do you participate in: walking and weight training frequency: 1-2 times per week ROS ROS ED Constitutional Constitutional ED: Denies chills or weight loss Eyes Eyes: Denies change in vision or diplopia ENT ENT ED: Denies ear pain, rhinorrhea or sore throat Cardiovascular Cardiovascular: Reports as per HPI and palpitations; Denies chest pain, orthopnea or racing heartbeat Respiratory/Chest Respiratory/Chest: Denies cough, dyspnea or orthopnea Gastrointestinal Gastrointestinal: Denies abdominal pain, diarrhea, nausea or vomiting Genitourinary Genitourinary ED: Denies dysuria, hematuria or urinary frequency Musculoskeletal Musculoskeletal: Denies arthralgias or myalgias Integumentary Denies abscess or rash Neurologic Neurologic: Denies headache(s) or weakness Psychiatric Psychiatric: Denies anxiety, depression, suicidal ideation or suicidal thoughts Endocrine Endocrinology: Denies polydipsia, polyphagia or polyuria Allergic/Immunologic Allergic/Immunologic ED: Denies mouth swelling, tongue swelling or urticaria EXAM Physical Exam Const Vital Signs: 08/13/24 18:34 08/13/24 20:06 08/13/24 20:35 Temperature 97.9 F Temperature Source Temporal Pulse Rate 81 70 Pulse Rate [Lying] Pulse Rate [Sitting (for 1 minute prior to obtaining)] Pulse Rate [Standing (for 1 minute prior to obtaining)] Respiratory Rate 16 12 Respiratory Effort Normal Blood Pressure 183/82 H 187/86 H Blood Pressure [Lying] Blood Pressure [Sitting (for 1 minute prior to obtaining)] Blood Pressure [Standing (for 1 minute prior to obtaining)] Blood Pressure Mean 115 119 Blood Pressure Mean [Lying] Blood Pressure Mean [Sitting (for 1 minute prior to obtaining)] Blood Pressure Mean [Standing (for 1 minute prior to obtaining)] Pulse Ox 99 100 Oxygen Delivery Method Room Air Room Air 08/13/24 21:15 08/13/24 21:24 08/13/24 22:10 Temperature Temperature Source Pulse Rate 71 65 Pulse Rate [Lying] 72 Pulse Rate [Sitting (for 1 minute prior to obtaining)] 77 Pulse Rate [Standing (for 1 minute prior to obtaining)] 77 Respiratory Rate 16 14 Respiratory Effort Blood Pressure 159/80 H 160/81 H Blood Pressure [Lying] 183/75 H Blood Pressure [Sitting (for 1 minute prior to obtaining)] 197/87 H Blood Pressure [Standing (for 1 minute prior to obtaining)] 217/100 H Blood Pressure Mean 106 107 Blood Pressure Mean [Lying] 111 Blood Pressure Mean [Sitting (for 1 minute prior to obtaining)] 123 Blood Pressure Mean [Standing (for 1 minute prior to obtaining)] 139 Pulse Ox 98 99 Oxygen Delivery Method 08/13/24 22:21 Temperature 98.0 F Temperature Source Pulse Rate 71 Pulse Rate [Lying] Pulse Rate [Sitting (for 1 minute prior to obtaining)] Pulse Rate [Standing (for 1 minute prior to obtaining)] Respiratory Rate 18 Respiratory Effort Blood Pressure 167/79 H Blood Pressure [Lying] Blood Pressure [Sitting (for 1 minute prior to obtaining)] Blood Pressure [Standing (for 1 minute prior to obtaining)] Blood Pressure Mean 108 Blood Pressure Mean [Lying] Blood Pressure Mean [Sitting (for 1 minute prior to obtaining)] Blood Pressure Mean [Standing (for 1 minute prior to obtaining)] Pulse Ox 99 Oxygen Delivery Method Positive well nourished and well developed General Appearance ED: well developed HEENT Reports normocephalic, head/scalp atraumatic and moist mucous membranes Eyes PERRL and EOMs intact bilaterally Neck no lymphadenopathy, supple and no JVD Resp normal respiratory effort and clear to auscultation bilaterally Cardio regular rate, regular rhythm and no murmurs GI normal to inspection, nondistended, normoactive bowel sounds and non-tender Palpation: soft Back/Spine no CVA tenderness and normal ROM Extremity normal to inspection General Extremety ED: Negative for edema General Extremity: Negative for edema Neuro oriented x3 and CN's II-XII intact bilaterally Sensorium / Orientation: alert Motor Exam: strength 5/5 throughout Psych mental status grossly normal Mood & Affect: anxious; Negative for depressed or tearful Skin no rashes or lesions noted and no wounds MDM MDM MDM Narrative Medical decision making narrative: Differential diagnosis includes PACs PVC cardiac dysrhythmia electrolyte abnormalities hypertensive urgency Patient has occasional PACs on the monitor. I do not see a bigeminy or trigeminy pattern. She is slightly hypertensive but not at a level where I feel we need to emergently bring her down. Sodium potassium magnesium TSH creatinine within normal limits. I do not feel that we need to try to suppress her PACs or change medications. Patient was given reassurance that having PACs does not predict a negative Cardiologic outcome. I would encourage her to follow-up with her hooker operator and discuss her symptomology further History & Record Review Discussion w/independent historian: Patient and Family Additional record(s) reviewed:: Prior outpatient record, Prior ED visit and Prior labs Lab Data Attestation: I reviewed the patient's lab results. Labs: Laboratory Results - last 24 hr 08/13/24 20:40 WBC 7.6 RBC 3.86 L Hgb 12.4 Hct 36.2 L MCV 93.8 MCH 32.1 H MCHC 34.3 RDW Std Deviation 41.0 RDW Coeff of Shefali 11.9 Plt Count 301 MPV 9.0 Immature Gran % (Auto) 0.500 Neut % (Auto) 69.7 Lymph % (Auto) 16.0 L [place] % (Auto) 12.4 H Eos % (Auto) 0.7 Baso % (Auto) 0.7 Absolute Neuts (auto) 5.3 Absolute Lymphs (auto) 1.21 Nucleated RBC % 0 Sodium 133 Potassium 4.0 Chloride 98 Carbon Dioxide 23.4 Anion Gap 12 BUN 6 Creatinine 0.51 L Estim Creat Clear Calc 57.40 Est GFR (MDRD) Non-Af 97 BUN/Creatinine Ratio 11.8 Glucose 100 H Calcium 9.2 Magnesium 2.4 H TSH 1.150 EKG Initial EKG: Attestation: I personally reviewed and interpreted this EKG as follows: Comments: Sinus rhythm with PACs noted ventricular rate of 73 bpm. Discharge Plan Triage Chief Complaint: Palpitations ED Provider: Julien Holder Dx/Rx/DC Orders Clinical Impression: Heart palpitations, Hypertension, Atrial contractions, premature Instructions: Your Heart's Electrical System, ED Palpitations Prescriptions: No Action acetaminophen [Tylenol Extra Strength] 500 mg tablet 1,000 mg PO BID PRN (Reason: Pain) cholecalciferol (vitamin D3) 1,250 mcg (50,000 unit) capsule 1,250 mcg PO QWEEK Qty: 4 4RF cyanocobalamin (vitamin B-12) 1,000 mcg/mL solution 100 mcg subcut QMONTH Primary Care Provider: Yuval Woods Referrals: Yuval Woods MD [Primary Care Provider] - Activity Restrictions/Additional Instructions: Please follow-up with your hooker operator. Print Language: Kiswahili Disposition Disposition: Home, Self Care Discharge Date/Time: 08/13/24 22:22
--- OUTSIDE RECORDS SUMMARY | 2024-08-13 20:43 | XMS RPT_ITS | CCD ---
Author Organization [facility] CliniSyct Care Team Providers Care Apprentice Cosmetologist Name Role Phone JONNY RETANA, DR ANGEL Menjivar Primary Care Physician Jonny, Dr. Barakat Primary Care Provider [phone] Jonny, Dr. Barakat Referring Provider 1([facility])[phone] Cade Monroy Attending Provider 1([facility])[phone] Lawrence RETANA MD, Daesung Unavailable 1([facility])[phone] Angel Fuller MD Primary Care Provider 1([facility])[phone] Jonny, Dr. Barakat Primary Care Provider 1([facility])[phone] Jonny, Dr. Barakat Referring Provider 1([facility])[phone] Cade Monroy Attending Provider 1([facility])[phone] Beulah Bain Referring Provider 1([facility])[phone] Beulah Bain Other Provider Dr. Esvin Platt Attending Provider Dr. Erik Escalera Attending Provider 1([facility])[phone] Marco Obrien Attending Provider 1([facility])[phone] Lawrence RETANA MD, Daesung Unavailable Angel Fuller MD Primary Care Provider Lawrence RETANA MD, Daesung Unavailable Angel Fuller MD Primary Care Provider 1([facility])[phone] Jonny, Dr. Barakat Primary Care Provider 1([facility])[phone] Jonny, Dr. Barakat Referring Provider 1([facility])[phone] Cade Monroy Attending Provider 1([facility])[phone] ANGEL FULLER MD Primary Care Physician ([facility])[phone] Dr. Robert Munguia Attending Provider Vanessa HUMAN RESOURCES COMPENSATION ANALYST.FINAL CLEANER, [place] Unavailable Irena White Unavailable Unavailabl e Mario Fabian MD, Badie Unavailable Lorenzo Montana Unavailable Mario Fabian MD, Millie Unavailable Mario Fabian MD, Millie Unavailable Mario Fabian MD, Badvasquez Unavailable Jonny, Dr. Barakat Primary Care Provider Nam, Dr. Barakat Referring Provider Dr. Erik Escalera Attending Provider [phone] Dr. Marco Obrien Attending Provider [phone] Cade Monroy Attending Provider [phone] ILANA TAVAREZ MD Attending Unavailable NAM, ANGEL Primary Care Unavailable ILANA TAVAREZ MD Attending Unavailable NAM, ANGEL Primary Care Unavailable FISH HUMAN RESOURCES COMPENSATION ANALYST-FINAL CLEANER, NAHOMI Attending Unavailab le NAM, ANGEL Primary Care Unavailable LAUREN HUMAN RESOURCES COMPENSATION ANALYST-FINAL CLEANER, THONG Mayen Attending Unavai lable NAM, ANGEL Primary Care Unavailable VIRGINIA Arriaga Attending Provider Jonny, Dr. Barakat Primary Care Provider [phone] Jonny, Dr. Barakat Referring Provider Dr. Erik Escalera Attending Provider [phone] Dr. Marco Obrien Attending Provider [phone] Cade Monroy Attending Provider VIRGINIA Arriaga Attending Provider Lawrence RETANA, Yue Unavailable Angel Fuller MD Primary Care Provider Jonny, Dr. Barakat Primary Care Provider Jonny, Dr. Barakat Referring Provider [phone] Dr. Erik Escalera Attending Provider [phone] Dr. Marco Obrien Attending Provider JONNY RETANA, DR ANGEL Menjivar Primary Care Physician JONNY RETANA, DR ANGEL Menjivar Primary Care Unavailable NEVILLE HUMAN RESOURCES COMPENSATION ANALYST-FINAL CLEANER, SHAHLA Attending Unavail sue FULLER MD, DR ANGEL Menjivar Primary Care Unavailable LAUREN HUMAN RESOURCES COMPENSATION ANALYST-FINAL CLEANER, THONG Mayen Attending Greg FULLER MD, DR ANGEL Menjivar Primary Care Unavailable LAUREN MATSONFINAL CLEANER, THONG Mayen Attending Greg LOZADA HUMAN RESOURCES COMPENSATION ANALYST-FINAL CLEANER, SHAHLA Attending Unavail sue FULLER MD, DR ANGEL Menjivar Primary Care Unavailable ALFRED HUMAN RESOURCES COMPENSATION ANALYST-FINAL CLEANER, PAVEL Attending Greg FULLER MD, DR ANGEL Menjivar Primary Care Unavailable JONNY RETANA, DR ANGEL Menjivar Primary Care Unavailable LASHELL HUMAN RESOURCES COMPENSATION ANALYST-FINAL CLEANER, NAHOMI Attending Unavailab rogelio Fuller MD, Dr. Barakat Primary Care Provider SHAHLA LOZADA Attending Provider SHAHLA LOZADA Referring Provider Jonny RETANA, Dr. Barakat Referring Provider King LAINEY, Dr. Mohamud Attending Provider [facility] TRAIN DRIVER-C, [facility] Attending Provider Jean Pierre JACKSON, Dr. White Attending Provider Jean Pierre JACKSON, Dr. White Emergency Provider Mago Caballero Attending Provider Dr. Marco Obrien MD Attending Provider Mago Caballero Referring Provider Linda RETANA, Dr. Cruz Attending Provider [phone] Jose Luis TRAIN DRIVER-CLinda Attending Provider Jose Luis TRAIN DRIVER-CLinda Referring Provider King LAINEY, Dr. Mohamud Referring Provider Moomajuan TRAIN DRIVER-C, Ang Attending Provider Dr. Easton Hanson DO Attending Provider Dr. Easton Hanson DO Emergency Provider SHAHLA KEATING Attending Provider SHAHLA KEATING Referring Provider Dr. Julien Holder DO Attending Provider Gallo JACKSON, Dr. Victoria Emergency Provider Jonny RETANA, Dr. Barakat Primary Care Provider Jonny RETANA, Dr. Barakat Referring Provider King LAINEY, Dr. Mohamud Attending Provider [facility] TRAIN DRIVER-C, [facility] Attending Provider [facility] cent[facility]eminNixon JACKSON, Dr. White Attending Provider [facility], Dr. White Emergency Provider Mago Caballero Attending Provider Micah REATNA, Dr. Lara Attending Provider Mago Caballero Referring Provider Dr. Anthony Mckeon MD Attending Provider Dr. Anthony Mckeon MD Referring Provider Jose Luis TRAIN DRIVER-CLinda Attending Provider Jose Luis TRAIN DRIVER-C, Linda Referring Provider King LAINEY, Dr. Mohamud Referring Provider [place] TRAIN DRIVER-C, Ang Attending Provider Dr. Easton Hanson DO Attending Provider Dr. Easton Hanson DO Emergency Provider SHAHLA KEATING Attending Provider SHAHLA KEATING Referring Provider Dr. Julien Holder DO Attending Provider Dr. Julien Holder DO Emergency Provider Linda RETANA, Dr. Cruz Other Provider Tory RETANA, Dr. Beckford Attending Provider Deloris RETANA, Dr. Spears Attending Provider Jonny RETANA, Dr. Barakat Primary Care Provider [phone] Jonny RETANA, Dr. Barakat Referring Provider King LAINEY, Dr. Mohamud Attending Provider Oscar DO, Dr. Up Attending Provider Jonny RETANA, Dr. Barakat Primary Care Provider Mago Caballero Attending Provider [phone] Jonny RETANA, Dr. Barakat Referring Provider Jonny RETANA, Dr. Barakat Primary Care Provider [phone] Jonny RETANA, Dr. Barakat Primary Care Provider [phone] Mago Caballero Attending Provider [phone] Christopher Greenfield Attending Unavailabl e Nam, Angel Primary Care Unavailable Fabien Mccann Attending Unavailable Nam, Angel Primary Care Unavailable Nam, Angel Referring Unavailable Irving Arriaga Attending Unavailable Nam, Angel Primary Care Unavailable STJEMHOLM, TONJA Attending Unavailable STJEMHOLM, TONJA Referring Unavailable Nam, Angel Primary Care Unavailable Baddour, Anthony Referring Unavailable Baddour, Anthony Attending Unavailable Nam, Angel Primary Care Unavailable Baddour, Anthony Referring Unavailable Baddour, Anthony Attending Unavailable Nam, Angel Primary Care Unavailable Easton Hanson Attending Unavailable Nam, Angel Primary Care Unavailable Nam, Angel Referring Unavailable Jeovanny Moore Attending Unavailable Nam, Angel Primary Care Unavailable Nam, Angel Referring Unavailable Cade Monroy Attending Unavailable Nam, Angel Primary Care Unavailable Baddour, Anthony Referring Unavailable Baddour, Anthony Attending Unavailable Nam, Angel Primary Care Unavailable Baddour, Anthony Attending Unavailable Nam, Angel Referring Unavailable Nam, Angel Primary Care Unavailable Nam, Angel Primary Care Unavailable Linda Amaya Attending Unavailable BordnerLinda Referring Unavailable Porfirio, Cade Attending Unavailable Porfirio, Cade Referring Unavailable Nam, Angel Primary Care Unavailable Torres, Mago Attending Unavailable TorresOlegMago Referring Unavailable Nam, Angel Primary Care Unavailable Baddour, Anthony Attending Unavailable Baddour, Anthony Referring Unavailable Nam, Angel Primary Care Unavailable Marco Obrien Attending Unavailable Nam, Angel Primary Care Unavailable Mago Macdonald Attending Unavailable Nam, Angel Referring Unavailable Nam, Angel Primary Care Unavailable Luis Daniel Son NP Attending Unavailable Nam, Angel Referring Unavailable Nam, Angel Primary Care Unavailable Easton Hanson Attending Unavailable Nam, Angel Primary Care Unavailable Julien Holder Attending Unavailable Nam, Angel Primary Care Unavailable Nam, Angel Referring Unavailable DevinrusoJeovanny Attending Unavailable Nam, Angel Primary Care Unavailable Nam, Angel Primary Care Unavailable STJEMHOLM, TONJA Attending Unavailable STJEMHOLM, TONJA Referring Unavailable Nam, Angel Referring Unavailable Nam, Angel Primary Care Unavailable Ang Skaggs Attending Unavailable Nam, Angel Referring Unavailable Irving Arriaga Attending Unavailable Nam, Angel Primary Care Unavailable Nam, Angel Referring Unavailable Jose PAGE, Kalyn Attending Unavailable Nam, Angel Primary Care Unavailable Baddour, Anthony Referring Unavailable Baddour, Anthony Consulting Unavailable Deloris, Ahmad Attending Unavailable Nam, Angel Primary Care Unavailable AhmadShakeel Attending Unavailable Baddour, Anthony Referring Unavailable Baddour, Anthony Consulting Unavailable Nam, Angel Primary Care Unavailable Nam, Angel Referring Unavailable Jose PAGE, Kalyn Attending Unavailable Nam, Angel Primary Care Unavailable Nam, Angel Referring Unavailable Borruso, Jeovanny Attending Unavailable Nam, Angel Primary Care Unavailable Baddour, Anthony Attending Unavailable Nam, Angel Referring Unavailable Nam, Angel Primary Care Unavailable Nam, Angel Referring Unavailable Borruso, Jeovanny Attending Unavailable Nam, Angel Primary Care Unavailable Baddour, Anthony Referring Unavailable Baddour, Anthony Attending Unavailable Nam, Angel Primary Care Unavailable Baddour, Anthony Referring Unavailable Baddour, Anthony Attending Unavailable Nam, Angel Primary Care Unavailable TorresEliyn Attending Unavailable Nam, Angel Referring Unavailable Nam, Angel Primary Care Unavailable Nam, Angel Attending Unavailable Nam, Angel Referring Unavailable Nam, Angel Primary Care Unavailable PRISCA RIVERA Attending Unavail able NAM, ANGEL K Primary Care Unavailable NAM, ANGEL K Primary Care Unavailable NAM, ANGEL K Primary Care Unavailable NAM, ANGEL K Primary Care Unavailable KARIE MEYER Attending Unavailable PRISCA RIVERA Referring Unavail ANGEL Smith Primary Care Unavailable Allergies Allergy Classification Reported Allergen(s) Allergy Type Date of Onset Reaction(s) Facility DULoxetine (1 source) DULoxetine Drug Allergy 09-14-[address] [facility] (20 sources) DULoxetine; Translations: [DULOXETINE] Drug Allergy 09-14-[address] [facility] (1 source) DULoxetine Drug Allergy 07-29-2024 [facility] Repository Medications Current Medications Medication Drug Class(es) Dates Sig (Normalized) Sig (Original) acetaminophen 500 mg oral tablet (20 sources) Start: 06-10-2023 take 2 tablets by mouth twice daily as needed for pain Acetaminophen (Tylenol Extra Strength) 500 mg tablet Active 1000 mg PO TWICE A DAY as needed for Pain June 10, 2023 1:14pm Start: 11-22-2020 End: 06-10-2023 take 1 tablet by mouth every six hours as needed for pain Acetaminophen (Tylenol Extra Strength) 500 mg tablet Discontinued 500 mg PO EVERY 6 HOURS as needed for Pain February 06, 2022 1:00am June 10, 2023 1:14pm take 1000 mg by mout h every twelve hours as needed acetaminophen (TYLENOL EX STR RAPID RELEASE ORAL) Take 1,000 mg by mouth twice daily as needed. Active acetaminophen (T YLENOL EX STR RAPID RELEASE ORAL) Take by mouth as needed. 0 Active Comment on above: Take by mouth as nee ded. Take 1,000 mg by hayder th twice daily. Take 1,000 mg by hayder th twice daily as needed. acetaminophen 325 mg / oxyCODONE hydrochloride 5 mg oral tablet (1 source) Opioid Agonist Start: 04-11-2022 End: 04-11-2022 take 1 tablet by mouth once, then take 1 tablet by mouth every hour Comment on above: Take 1 tablet by hayder th one time only for 1 dose. about 1 hour prior to bone marrow biopsy. B-12 2500 mcg oral tablet (2 sources) Start: 05-27-2021 B-12 2500 mcg oral tablet Dose : 2,500 mcg = 1 tab(s), Oral, qDay, # 60 tab(s), 0 Refill(s) Start Date: 05/27/21 Status: Ordered Roshan dennis (4 sources) Start: 01-11-2021 Roshan dennis Active PO January 11, 2021 10:55am Start: 01-11-2021 Bone tevinoth co gabien Active PO January 11, 2021 12:00am BONE BROTH PROTEIN CHICKEN (4 sources) Start: 09-21-2020 BONE BROTH PRO TEIN CHICKEN Active PO September 21, 2020 8:55am Start: 09-21-2020 BONE BROTH PRO TEIN CHICKEN Active PO September 20, 2020 11:00pm cholecalciferol 1.25 mg oral capsule (20 sources) Vitamin D Start: 04-05-2024 take 1 capsule by mouth every week Cholecalciferol (Vitamin D3) 1,250 mcg (50,000 unit) capsule Active 1250 ug PO EVERY WEEK April 05, 2024 1:00am Start: 06-10-2023 End: 08-06-2023 take 1 capsule by mouth once daily Cholecalciferol (Vitamin D3) 50 mcg (2,000 unit) capsule Discontinued 50 ug PO DAILY June 10, 2023 12:00am August 06, 2023 1:07pm Start: 01-27-2020 End: 05-11-2023 take 1 capsule by mouth once daily Cholecalciferol (Vitamin D3) 125 mcg (5,000 unit) capsule Discontinued 125 ug PO DAILY January 27, 2020 1:00am May 11, 2023 3:59pm chrondrotin (18 sources) Start: 02-07-2021 chrondrotin Ac tive PO February 07, 2021 9:40am Start: 02-07-2021 End: 02-06-2022 chrondrotin Discontinued PO February 07, 2021 1:00am February 06, 2022 9:48am Start: 02-07-2021 End: 02-06-2022 chrondrotin Discontinued PO February 07, 2021 12:00am February 06, 2022 8:48am collagen type 2 (4 sources) Start: 02-07-2021 collagen type 2 Active PO February 07, 2021 9:38am Start: 02-07-2021 collagen type 2 Active PO February 07, 2021 12:00am D3K (18 sources) Start: 09-21-2020 D3K Active PO September 21, 2020 8:50am Start: 09-21-2020 End: 05-11-2023 D3K Discontinued PO August 11:00pm May 11, 2023 2:59pm Start: 09-21-2020 End: 05-11-2023 D3K Discontinued PO August 12:00am May 11, 2023 3:59pm Start: 09-21-2020 D3K Active PO September 20, 2020 11:00pm E+ (18 sources) Start: 01-27-2020 E+ Active 2 TA BLET PO January 27, 2020 12:49pm Start: 01-27-2020 End: 02-06-2022 E+ Discontinued 2 {tbl} PO D ecember 2019 1:00am February 06, 2022 9:48am Start: 01-27-2020 End: 02-06-2022 E+ Discontinued 2 {tbl} PO D ecember 2019 12:00am February 06, 2022 8:48am Start: 01-27-2020 End: 02-06-2022 E+ Discontinued 2 TABLET PO January 27, 2020 1:00am February 06, 2022 9:48am Start: 01-27-2020 End: 02-06-2022 E+ Discontinued 2 TABLET PO January 27, 2020 12:00am February 06, 2022 8:48am [address] PRO (4 sources) Start: 09-21-[address] PRO Acti ve PO September 21, 2020 8:55am Start: 09-21-[address] PRO Acti ve PO September 20, 2020 11:00pm 3 ml sodium hyaluronate 20 mg/ml prefilled syringe (1 source) Start: 02-06-2022 Hyaluronate So dium, Stabilized (Durolane) 60 mg/3 mL syringe Active 3 ML INTRAARTIC ONCE February 06, 2022 12:00am hydroCHLOROthiazide 25 mg oral tablet (11 sources) Thiazide Diuretic Start: 01-27-2024 hydroCHLOROthiazide 25 mg oral tablet Dose : 25 mg = 1 tab(s), Oral, qDay, # 30 tab(s), 1 Refill(s), Pharmacy: [id number], 163.6, cm, 01/27/24 11:22:00 EST, Height, kg, 01/27/24 11:22:00 EST, Dosing Weight Start Date: 01/27/24 Status: Ordered Quantity: 30.0 Unit: tab(s) Repeat number: 2 Start: 05-11-2023 End: 07-10-2023 take 1 tablet by mouth once daily Hydrochlorothiazide 12.5 mg tablet Discontinued 12.5 mg PO DAILY May 11, 2023 12:00am July 10, 2023 11:30am K2 Plus D3 oral tablet (5 sources) Start: 06-01-2020 take 1 tablet by mouth once daily K2 Plus D3 oral tablet 1 tab, Oral, Daily, 0 Refill(s) Start Date: 06/01/20 Status: Ordered Repeat number: 1 Start: 06-01-2020 take 1 tablet by hayder th once daily K2 Plus D3 oral tablet 1 tab, Oral, Daily, 0 Refill(s) Start Date: 06/01/20 Status: Ordered llyaluronic acid (18 sources) Start: 02-07-2021 llyaluronic ac id Active PO February 07, 2021 9:41am Start: 02-07-2021 End: 02-06-2022 llyaluronic acid Discontinue d PO February 07, 2021 1:00am February 06, 2022 9:49am Start: 02-07-2021 End: 02-06-2022 llyaluronic acid Discontinue d PO February 07, 2021 12:00am February 06, 2022 8:49am LORazepam 0.5 mg oral tablet (1 source) Benzodiazepine Start: 04-11-2022 End: 04-11-2022 take 1 tablet by mouth once, then take 1 tablet by mouth every hour Comment on above: Take 1 tablet by hayder th one time only for 1 dose. about 1 hour prior to bone marrow biopsy. omega 7-bvm-kwa-fish oil 290 mg-430 mg-1.4 gram capsule (11 sources) Start: 02-10-2020 omega 9-htx-umi-fish oil 290 mg-430 mg-1.4 gram capsule Active CAP PO February 10, 2020 10:40am Start: 02-10-2020 End: 02-06-2022 omega 4-nyi-slg-fish oil 290 mg-430 mg-1.4 gram capsule Discontinued CAP PO February 10, 2020 1:00am February 06, 2022 9:49am Start: 02-10-2020 End: 02-06-2022 omega 9-ssi-yme-fish oil 290 mg-430 mg-1.4 gram capsule Discontinued CAP PO February 10, 2020 12:00am February 06, 2022 8:49am omega3 1,000 hv-lxb-amd-othe r jg5m-kgeq oil 1,400 mg capsule,delay rel (11 sources) Start: 02-10-2020 omega3 1,000 m s-gjk-yqc-other kf0n-yjll oil 1,400 mg capsule,delay rel Active CAP PO February 10, 2020 10:40am Start: 02-10-2020 End: 02-06-2022 omega3 1,000 wz-bwb-xit-othe r eu5r-hslr oil 1,400 mg capsule,delay rel Discontinued CAP PO February 10, 2020 1:00am February 06, 2022 9:49am Start: 02-10-2020 End: 02-06-2022 omega3 1,000 wy-nzf-tzi-othe r yx0c-txmz oil 1,400 mg capsule,delay rel Discontinued CAP PO February 10, 2020 12:00am February 06, 2022 8:49am probiotic pro (18 sources) Start: 09-21-2020 probiotic pro Active PO September 21, 2020 8:54am Start: 09-21-2020 End: 02-06-2022 probiotic pro Discontinued P O September 21, 2020 12:00am February 06, 2022 9:49am Start: 09-21-2020 End: 02-06-2022 probiotic pro Discontinued P O September 20, 2020 11:00pm February 06, 2022 8:49am rosuvastatin calcium 5 mg oral tablet (20 sources) HMG-CoA Reductase Inhibitor Start: 01-27-2024 rosuvastatin 5 mg or al tablet Dose : 5 mg = 1 tab(s), Oral, Daily, # 30 tab(s), 0 Refill(s), Pharmacy: [id number], 163.6, cm, 01/27/24 11:22:00 EST, Height, kg, 01/27/24 11:22:00 EST, Dosing Weight Start Date: 01/27/24 Status: Ordered Quantity: 30.0 Unit: tab(s) Repeat number: 1 Start: 11-13-2021 take 0.5 tablet by m outh two times weekly rosuvastatin (CRESTOR) 5 mg tablet Take 1/2 tablet by mouth twice weekly. 0 11/13/2021 Active Start: 11-13-2021 End: 02-19-2023 take 1 tablet by mouth once daily Rosuvastatin (Crestor) 5 mg tablet Discontinued 5 mg PO DAILY February 06, 2022 1:00am February 19, 2023 4:50pm Comment on above: Take 5 mg by mouth o nce daily. Take 1/2 tablet by m outh twice weekly. sulfamethoxazole 800 mg / trimethoprim 160 mg oral tablet (2 sources) Dihydrofolate Reductase Inhibitor Antibacterial, Sulfonamide Antimicrobial Start: End: take 1 tablet by mouth twice daily sulfamethoxazo le-trimethopri m (BACTRIM DS) 800-160 mg per tablet Take 1 tablet by mouth two times a day for 7 days. 14 tablet 0 06/13/2023 06/20/2023 Active Start: 12-26-2021 End: 12-29-2021 take 1 tablet by mouth twice daily sulfamethoxazole-trimethoprim (BACTRIM D S) 800-160 mg per tablet Take 1 tablet by mouth twice daily for 3 days. 6 tablet 0 12/26/2021 12/29/2021 Active Comment on above: Take 1 tablet by hayder th twice daily for 3 days. Vitamin B Complex (B Complex-Vitamin B12) tablet (4 sources) Start: 02-07-2021 take 1 tablet by mouth once daily Vitamin B Complex (B Complex-Vitamin B12) tablet Active 1 TABLET PO DAILY February 07, 2021 9:46am Start: 02-07-2021 take 1 tablet by hayder th once daily Vitamin B Complex (B Complex-Vitamin B12) tablet Active 1 TABLET PO DAILY February 07, 2021 12:00am vitamin b12 1 mg/ml injectable solution (20 sources) Vitamin B12 Start: 04-05-2024 Cyanocobalamin (Vitamin B-12) 1,000 mcg/mL solution Active 100 ug SC EVERY MONTH April 05, 2024 1:00am Start: 05-11-2023 End: 08-06-2023 take 1 capsule by mouth once daily Cyanocobalamin (Vitamin B-12) 1,000 mcg capsule Discontinued 1000 ug PO DAILY May 11, 2023 12:00am August 06, 2023 1:07pm Start: 02-26-2021 Vitamin B12 0 Refill(s) Start Date: 02/26/21 Status: Ordered Repeat number: 1 Start: 02-26-2021 Vitamin B12 0 Refill(s) Start Date: 02/26/21 Status: Ordered vitamin k2 0.04 mg oral tablet (4 sources) Start: 02-10-2020 take 40 ug by mouth once daily Vitamin K2 Active 40 MCG PO DAILY February 10, 2020 10:41am Completed/Discontinued Medications Medication Drug Class(es) Dates Sig (Normalized) Sig (Original) amLODIPine 2.5 mg oral tablet (20 sources) Dihydropyridine Calcium Channel Doretha Start: 11-20-2023 End: 02-19-2024 take 1 tablet by mouth once daily Amlodipine 2.5 mg tablet Discontinued 2.5 mg PO DAILY November 20, 2023 12:00am February 19, 2024 4:46pm Start: 07-10-2023 End: 08-06-2023 take 1 tablet by mouth once daily Amlodipine 2.5 mg tablet Discontinued 2.5 mg PO DAILY July 10, 2023 1:13pm August 06, 2023 1:06pm Start: 06-26-2023 End: 07-10-2023 take 1 tablet by mouth once daily Amlodipine 5 mg tablet Discontinued 5 mg PO DAILY June 26, 2023 12:00am July 10, 2023 11:29am amoxicillin 500 mg oral capsule (11 sources) Penicillin-class Antibacterial Start: 03-09-2023 End: 03-19-2023 take 1 capsule by mouth three times daily Amoxicillin 500 mg capsule Discontinued 500 mg PO THREE TIMES A DAY 22 12March 09, 2023 1:00am March 18, 2023 1:00am March 19, 2023 1:05am amoxicillin 875 mg / clavulanate 125 mg oral tablet (7 sources) Penicillin-class Antibacterial Start: 03-06-2024 End: 03-14-2024 Amoxicillin-Pot Clavulanate 875-125 mg tablet Discontinued 1 {tbl} PO TWICE A DAY 14 March 06, 2024 1:00am March 12, 2024 1:00am March 14, 2024 1:10am Vit D3-Vit O-Spjbpxfua-Atfh (7 sources) Vitamin D, Non-Standardized Food Allergenic Extract, Non-Standardized Plant Allergenic Extract Start: 04-04-2024 End: 07-29-2024 Vit D3-Vit P-Pfxnmjfzo-Yjtv [phone] mbsp-agt-co-mg tablet Discontinued 1 {tbl} PO daily April 04, 2024 1:00am July 29, 2024 11:15am Start: 04-04-2024 Vit D3-Vit K-B erberine-Hops [phone] svyn-zuh-bd-mg tablet Active 1 {tbl} PO daily April 04, 2024 1:00am Start: 04-04-2024 Vit D3-Vit K-B erberine-Hops [phone] dcba-fuw-qa-mg tablet Active 1 {tbl} PO daily April 04, 2024 12:00am Bone Broth (5 sources) Start: 08-16-2020 Bone Broth Bon e Broth, 2 tablespoons, Oral, BID, 0 Refill(s), 58.4 Start Date: 08/16/20 Status: Ordered Repeat number: 1 Start: 08-16-2020 Bone Broth Bon e Broth, 2 tablespoons, Oral, BID, 0 Refill(s), 58.4 Start Date: 08/16/20 Status: Ordered calcium carbonate 1500 mg oral tablet (18 sources) Start: 10-01-2013 End: 01-27-2020 take 2 tablets by mouth once daily Calcium Carbonate 600 MG tablet Discontinued 1200 mg PO DAILY@799October 01, 2013 12:00am January 27, 2020 12:49pm Start: 10-01-2013 End: 01-27-2020 take 1200 mg by mouth once daily Calcium Carbonate Discontinued 1200 MG PO DAILY@799October 01, 2013 12:00am January 27, 2020 12:49pm Mwzxzlq-Biytpk-Kdmzgm-Glycos am (Beyond Bone Broth) 300 mg calcium- 1,700 mg/scoop powder (10 sources) Start: 05-11-2023 End: 08-06-2023 Sjlaghq-Oopais-Lcizsr-Glycos am (Beyond Bone Broth) 300 mg calcium- 1,700 mg/scoop powder Discontinued 0 PO .COMPLEX May 11, 2023 12:00am August 06, 2023 1:07pm 2 tablespoons BID orally; Start: 05-11-2023 End: 08-06-2023 Xjyxbzy-Auuxme-Qnxwun-Glycos am (Beyond Bone Broth) 300 mg calcium- 1,700 mg/scoop powder Discontinued 0 PO .COMPLEX May 10, 2023 11:00pm August 06, 2023 12:07pm 2 tablespoons BID orally; Start: 05-11-2023 Calcium-Chondr -Collag-Glycosam (Beyond Bone Broth) 300 mg calcium- 1,700 mg/scoop powder Active 0 PO .COMPLEX May 11, 2023 12:00am 2 tablespoons BID orally; calcium/chondr/collag/glycos am (BEYOND BONE BROTH ORAL) (12 sources) End: 08-04-2024 calcium/chondr/collag/glycos am (BEYOND BONE BROTH ORAL) Take by mouth. Bone Broth Collagen 1 Scoop per day (2 table spoons) 08/04/2024 Discontinued calcium/chondr/c ollag/glycosam (BEYOND BONE BROTH ORAL) Take by mouth. Bone Broth Collagen 1 Scoop per day (2 table spoons) Active calcium/chondr/c ollag/glycosam (BEYOND BONE BROTH ORAL) Take by mouth. Bone Broth Collagen 1 Scoop per day (2 table spoons) 0 Active Comment on above: Take by mouth. Bone Broth Collagen 1 Scoop per day (2 table spoons) Capture and Release (18 sources) Start: 01-27-2020 End: 02-10-2020 Capture and Release Discontinued 2 TABLET PO January 27, 2020 12:46pm February 10, 2020 10:41am Start: 01-27-2020 End: 02-10-2020 Capture and Release Disconti nued 2 {tbl} PO January 27, 2020 1:00am February 10, 2020 10:41am Start: 01-27-2020 End: 02-10-2020 Capture and Release Disconti nued 2 {tbl} PO January 27, 2020 12:00am February 10, 2020 9:41am Start: 01-27-2020 End: 02-10-2020 Capture and Release Disconti nued 2 TABLET PO January 27, 2020 1:00am February 10, 2020 10:41am Start: 01-27-2020 End: 02-10-2020 Capture and Release Disconti nued 2 TABLET PO January 27, 2020 12:00am February 10, 2020 9:41am cephalexin 500 mg oral capsule (1 source) Cephalosporin Antibacterial Start: 06-13-2023 End: 06-13-2023 take 1 capsule by mouth four times daily cephALEXin (KEFLEX) 500 mg capsule Take 1 capsule by mouth four times daily for 7 days. 28 capsule 0 06/13/2023 06/13/2023 Discontinued cholecalciferol, vitamin D3, (VITAMIN D3 ORAL) (20 sources) End: 06-11-2023 take 1 tablet by mouth two times weekly cholecalciferol, vitamin D3, (VITAMIN D3 ORAL) Take 1 tablet by mouth two times a week. With k2 0 06/11/2023 Discontinued take 1 tablet by [place] two times weekly cholecalciferol, vitamin D3, (VITAMIN D3 ORAL) Take 1 tablet by mouth two times a week. With k2 0 Active cholecalciferol, vitamin D3, (VITAMIN D3 ORAL) Take by mouth two times a week. With k2 0 Active cholecalciferol, vitamin D3, (VITAMIN D3 ORAL) Take by mouth once daily. With k2 0 Active cholecalciferol, vitamin D3, (VITAMIN D3 ORAL) Take by mouth once daily. 0 Active Comment on above: Take by mouth once d aily. Take by mouth once d aily. With k2 Take by mouth two ti mes a week. With k2 Take 1 tablet by hayder th two times a week. With k2 Collagen (12 sources) End: 08-04-2024 Comment on above: 2 Tablespoonsful onc e daily. Unknown dosage cyanocobalamin/folic acid (FOLIC ACID-B12 ORAL) (1 source) End: cyanocobalamin/folic acid (FOLIC ACID-B12 ORAL) Take by mouth. Gets from Functional doctor 0 06/11/2023 Discontinued Comment on above: Take by mouth. Gets from Functional doctor cyclobenzaprine hydrochloride 5 mg oral tablet (8 sources) Muscle Relaxant Start: 025 End: take 1 tablet by mouth three times daily as needed for muscle spasms Cyclobenzaprine 5 mg tablet Discontinued 5 mg PO THREE TIMES A DAY as needed for muscle spasm 9 3 March 13, 2024 1:00am April 04, 2024 10:01am diclofenac sodium 0.01 mg/mg topical gel (8 sources) Nonsteroidal Anti-inflammatory Drug End: diclofenac (VOLTAREN) 1 % topical gel Apply to affected area four times daily. 0 04/01/2022 Discontinued Comment on above: Apply to affected ar ea four times daily. docosahexaenoic acid 300 mg oral capsule (18 sources) Start: End: Docosahexaenoic Acid (Dha Algal-900) 300 mg capsule Discontinued 600 mg PO DAILY February 10, 2020 1:00am February 06, 2022 9:48am ergocalciferol 1.25 mg oral capsule (18 sources) Provitamin D2 Compound Start: 014 End: Ergocalciferol (Vitamin D2) 50,000 UNIT capsule Discontinued 67157 U PO Q7D October 01, 2013 12:00am January 27, 2020 12:49pm esomeprazole 20 mg delayed release oral capsule (7 sources) Proton Pump Inhibitor Start: 024 End: take 1 capsule by mouth once daily Esomeprazole Magnesium (Nexium) 20 mg capsule,delayed release(DR/EC) Discontinued 20 mg PO DAILY August 06, 2023 12:00am August 18, 2023 2:35pm gabapentin 100 mg oral capsule (20 sources) Anti-epileptic Agent Start: 025 End: 025 take 1 capsule by mouth twice daily Gabapentin 100 mg capsule Discontinued 100 mg PO TWICE A DAY 60 April 06, 2024 1:00am July 13, 2024 10:33am Start: 02-06-2022 End: 02-04-2023 take 200 mg by mouth twice daily Gabapentin Discontinu ed 200 MG PO TWICE A DAY February 06, 2022 1:00am February 04, 2023 4:19pm Start: 12-09-2021 End: 02-04-2023 take 2 capsules by mouth twice daily Gabapentin 100 mg capsule Discontinued 200 mg PO TWICE A DAY February 06, 2022 1:00am February 04, 2023 4:19pm Start: 12-09-2021 End: 11-21-2022 take 1 capsule by mouth twice daily gabapentin (NEURONTIN) 100 mg capsule Take 100 mg by mouth twice daily. 0 12/09/2021 04/11/2022 Discontinued Start: 12-09-2021 take 1 capsule by mo uth in the evening gabapentin (NEURONTIN) 100 mg capsule TAKE 1 CAPSULE BY MOUTH IN THE EVENING 0 12/09/2021 Active Comment on above: TAKE 1 CAPSULE BY MO UTH IN THE EVENING Take 200 mg by mouth twice daily. Take 100 mg by mouth twice daily. GI Pro (3 sources) Start: 08-17-19 GI Pro GI Pro, 1 tab, Oral, BID, 0 Refill(s), 58.4 Start Date: 08/16/20 Status: Ordered glucosamine sulfate 500 mg oral tablet (18 sources) Start: 02-08-20 End: 02-07-20 Glucosamine Sulfate (Glucosamine) 500 mg tablet Discontinued 30 mg PO DAILY February 07, 2021 1:00am February 06, 2022 9:48am administer with a meal ibuprofen 200 mg oral tablet (10 sources) Nonsteroidal Anti-inflammatory Drug End: 04-01-19 take 1 tablet by mouth every six hours as needed ibuprofen (MOTRIN) 200 mg tablet Take 200 mg by mouth every 6 hours as needed for pain. 0 04/01/2022 Discontinued Comment on above: Take 200 mg by mouth every 6 hours as needed for pain. Lactobacillus acidophilus (5 sources) End: 07-31-19 take 1 capsule by mouth once daily Lactobacillus acidophilus (PROBIOTIC ORAL) Take 1 capsule by mouth once daily. 0 07/30/2021 Discontinued take 1 capsule by mouth once jean pierre ly Lactobacillus acidophilus (PROBIOTIC ORAL) Take 1 capsule by mouth once daily. 0 Active Comment on above: Take 1 capsule by mo uth once daily. Lactobacillus Combo No.11 (Probiotic) 15 billion cell capsule, sprinkle (9 sources) Start: 06-10-2023 End: 08-06-2023 Lactobacillus Combo No.11 (Probiotic) 15 billion cell capsule, sprinkle Discontinued 1 NMA PO DAILY June 10, 2023 12:00am August 06, 2023 1:07pm do not crush/chew/cut; swallow whole OR may open and sprinkle in cold drink/food Start: 06-10-2023 End: 08-06-2023 Lactobacillus Combo No.11 (P robiotic) 15 billion cell capsule, sprinkle Discontinued 1 NMA PO DAILY June 09, 2023 11:00pm August 06, 2023 12:07pm do not crush/chew/cut; swallow whole OR may open and sprinkle in cold drink/food Start: 06-10-2023 take 1 capsule by mo ut once daily Lactobacillus Combo No.11 (Probiotic) 15 billion cell capsule, sprinkle Active 1 CAP PO DAILY June 10, 2023 12:00am do not crush/chew/cut; swallow whole OR may open and sprinkle in cold drink/food Master Detoxifier (18 sources) Start: 01-27-2020 End: 02-10-2020 Master Detoxifier Discontinu ed 2 CAP PO January 27, 2020 12:47pm February 10, 2020 10:41am Start: 01-27-2020 End: 02-10-2020 Master Detoxifier Discontinu ed 2 NMA PO January 27, 2020 1:00am February 10, 2020 10:41am Start: 01-27-2020 End: 02-10-2020 Master Detoxifier Discontinu ed 2 NMA PO January 27, 2020 12:00am February 10, 2020 9:41am Start: 01-27-2020 End: 02-10-2020 Master Detoxifier Discontinu ed 2 CAP PO January 27, 2020 1:00am February 10, 2020 10:41am Start: 01-27-2020 End: 02-10-2020 Master Detoxifier Discontinu ed 2 CAP PO January 27, 2020 12:00am February 10, 2020 9:41am meloxicam 7.5 mg oral tablet (5 sources) Nonsteroidal Anti-inflammatory Drug End: 07-30-2021 take 1 tablet by mouth once daily meloxicam (MOBIC) 7.5 mg tablet Take 7.5 mg by mouth once daily. 0 07/30/2021 Discontinued Comment on above: Take 7.5 mg by mouth once daily. Multivitamin preparation (8 sources) Start: 05-11-2023 End: 06-10-2023 take 1 tablet by mouth once daily Multivitamin Discontinued 1 TABLET PO DAILY May 11, 2023 12:00am June 10, 2023 1:12pm Start: 05-11-2023 take 1 tablet by [facility] once daily Multivitamin Active 1 TABLET PO DAILY May 11, 2023 12:00am End: 07-30-2021 multivitamin (VITAMIN DAILY ORAL) Take by mouth. Vitamin d and K 0 07/30/2021 Discontinued (Other) multivitamin ( TAMIN DAILY ORAL) Take by mouth. Vitamin d and K 0 Active Comment on above: Take by mouth. Vitam in d and K Multivitamin tablet (7 sources) Start: 05-11-2023 End: 06-10-2023 Multivitamin tablet Discontinued 1 {tbl} PO DAILY May 11, 2023 12:00am June 10, 2023 1:12pm Start: 05-11-2023 End: 06-10-2023 Multivitamin tablet Disconti nued 1 {tbl} PO DAILY May 10, 2023 11:00pm June 10, 2023 12:12pm mv-mn/iron fum/FA/omega3,6,9#3 (WOMEN'S MULTI ORAL) (5 sources) End: 07-30-2021 take 1 capsule by mouth three times daily mv-mn/iron fum/FA/omega3,6,9#3 (WOMEN'S MULTI ORAL) Take 1 capsule by mouth three times daily. 0 07/30/2021 Discontinued take 1 capsule by [facility] three times daily mv-mn/iron fum/FA/omega3,6,9#3 (WOMEN'S MULTI ORAL) Take 1 capsule by mouth three times daily. 0 Active Comment on above: Take 1 capsule by mo [facility] three times daily. nebivolol 2.5 mg oral tablet (20 sources) Start: 06-04-2022 End: 02-19-2023 Nebivolol Discontinued MG PO June 04, 2022 12:00am February 19, 2023 4:50pm Start: 06-04-2022 End: 02-19-2023 Nebivolol Discontinued MG PO June 03, 2022 11:00pm February 19, 2023 3:50pm Start: 05-27-2022 End: 05-11-2023 take 1 tablet by mouth once daily Nebivolol 2.5 mg tablet Discontinued 2.5 mg PO DAILY February 19, 2023 4:49pm May 11, 2023 3:58pm Comment on above: Take 2.5 mg by mouth as needed. Osborne 2-Tgd-Ftb-Fish Oil (Epa-Dha 720) 290-430-1.4 mg-mg-gram capsule (7 sources) Start: 02-10-2020 End: 02-06-2022 Osborne 5-Pks-Zol-Fish Oil (Epa-Dha 720) 290-430-1.4 mg-mg-gram capsule Discontinued NMA PO February 10, 2020 1:00am February 06, 2022 9:49am Start: 02-10-2020 End: 02-06-2022 Osborne 0-Qws-Cnc-Fish Oil (Ep a-Dha 720) 290-430-1.4 mg-mg-gram capsule Discontinued NMA PO February 10, 2020 12:00am February 06, 2022 8:49am Tlsnk-0a-Snr-Epa-Fish Oil 1,000-1,400 mg capsule,delayed release(DR/EC) (7 sources) Start: 02-10-2020 End: 02-06-2022 Aelya-1l-Vah-Epa-Fish Oil 1,000-1,400 mg capsule,delayed release(DR/EC) Discontinued NMA PO February 10, 2020 1:00am February 06, 2022 9:49am Start: 02-10-2020 End: 02-06-2022 Pbxfi-2w-Cnz-Epa-Fish Oil 1, 000-1,400 mg capsule,delayed release(DR/EC) Discontinued NMA PO February 10, 2020 12:00am February 06, 2022 8:49am Omeprazole (8 sources) Proton Pump Inhibitor End: 08-04-2024 omeprazole magnesium (PRILOSEC ORAL) Take by mouth. 08/04/2024 Discontinued omeprazole magne sium (PRILOSEC ORAL) Take by mouth. Active omeprazole magne sium (PRILOSEC ORAL) Take by mouth. 0 Active OTC PRODUCT (20 sources) End: 11-21-2022 OTC PRODUCT Take 2 Tablespoo nsful by mouth once daily. BONE BROTH COLLAGEN 0 11/21/2022 Discontinued OTC PRODUCT Take 2 Tablespoonsful by mouth once daily. BONE BROTH COLLAGEN 0 Active End: 04-11-2022 OTC PRODUCT Take 1 Tablespoo nful by mouth once daily. Bone protein 0 04/11/2022 Discontinued OTC PRODUCT Take 1 Tablespoonful by mouth once daily. Bone protein 0 Active End: 07-30-2021 OTC PRODUCT D3K Vitamin D an d K supplement Takes 1 with dinner 0 07/30/2021 Discontinued End: 07-30-2021 take 1 capsule by mouth twice daily OTC PRODUCT Take 1 capsule by mouth twice daily. GUT 90-RX 0 07/30/2021 Discontinued End: 07-30-2021 take 1 capsule by mouth twice daily OTC PRODUCT Take 1 capsule by mouth twice daily. GI DR-PRO 0 07/30/2021 Discontinued End: 07-30-2021 take 1 capsule by mouth three times daily OTC PRODUCT Take 1 capsule by mouth three times daily. NERVE, BONE AND SOFT TISSUE SUPPORT 0 07/30/2021 Discontinued End: 07-30-2021 take 2 capsules by mouth three times daily OTC PRODUCT Take 2 capsules by mouth three times daily. MULTI-PHASE GI SS 0 07/30/2021 Discontinued OTC PRODUCT D3K Vitamin D and K supplement Takes 1 with dinner 0 Active take 1 capsule by mo uth twice daily OTC PRODUCT Take 1 capsule by mouth twice daily. GUT 90-RX 0 Active take 1 capsule by mo uth twice daily OTC PRODUCT Take 1 capsule by mouth twice daily. GI DR-PRO 0 Active take 1 capsule by mo uth three times daily OTC PRODUCT Take 1 capsule by mouth three times daily. NERVE, BONE AND SOFT TISSUE SUPPORT 0 Active take 2 capsules by m outh three times daily OTC PRODUCT Take 2 capsules by mouth three times daily. MULTI-PHASE GI SS 0 Active OTC PRODUCT Take 2 Tablespoonsful by mouth twice daily. BONE BROTH COLLAGEN 0 Active OTC PRODUCT Bone protein 0 Active Comment on above: D3K Vitamin D and K supplement Takes 1 with dinner Take 1 capsule by mo uth twice daily. GUT 90-RX Take 1 capsule by mo uth twice daily. GI DR-PRO Take 1 capsule by mo uth three times daily. NERVE, BONE AND SOFT TISSUE SUPPORT Take 2 capsules by m outh three times daily. MULTI-PHASE GI SS Take 2 Tablespoonsfu l by mouth twice daily. BONE BROTH COLLAGEN Bone protein Take 1 Tablespoonful by mouth once daily. Bone protein Take 2 Tablespoonsfu l by mouth once daily. BONE BROTH COLLAGEN pantoprazole 40 mg delayed release oral tablet (8 sources) Proton Pump Inhibitor Start: 11-20-19 End: 07-14-19 take 1 tablet by mouth once daily Pantoprazole 40 mg tablet,delayed release (DR/EC) Discontinued 40 mg PO DAILY November 20, 2023 12:00am July 13, 2024 10:33am predniSONE 5 mg oral tablet (7 sources) Start: 11-20-19 End: 02-19-20 take 1 tablet by mouth once daily Prednisone 5 mg tablet Discontinued 5 mg PO DAILY November 20, 2023 12:00am February 19, 2024 4:46pm pregabalin 50 mg oral capsule (17 sources) Start: 07-01-19 End: 07-14-19 take 1 capsule by mouth once daily Pregabalin 50 mg capsule Discontinued 50 mg PO daily June 30, 2024 12:00am July 13, 2024 3:58pm Start: 02-19-2023 End: 03-20-2023 Pregabalin 50 mg capsule Dis continued mg PO February 19, 2023 1:00am March 20, 2023 11:24am Start: 02-19-2023 End: 03-20-2023 Pregabalin Discontinued MG P O February 19, 2023 1:00am March 20, 2023 11:24am raloxifene hydrochloride 60 mg oral tablet (18 sources) Estrogen Agonist/Antagonist Start: 10-01-2013 End: 01-27-2020 take 1 tablet by mouth once daily Raloxifene 60 MG tablet Discontinued 60 mg PO DAILY October 01, 2013 12:00am January 27, 2020 12:49pm vit B complex no.12/niacin,B3, (VITAMIN B COMPLEX NO.12-NIACIN ORAL) (5 sources) End: 07-30-2021 vit B complex no.12/niacin,B3, (VITAMIN B COMPLEX NO.12-NIACIN ORAL) Take by mouth. 0 07/30/2021 Discontinued vit B complex no .12/niacin,B3, (VITAMIN B COMPLEX NO.12-NIACIN ORAL) Take by mouth. 0 Active Comment on above: Take by mouth. Vitamin D3-Vitamin K2 (7 sources) Start: 02-19-2024 End: 03-12-2024 Vitamin D3-Vitamin K2 1,250-200 mcg capsule Discontinued NMA PO .QOD February 19, 2024 1:00am March 12, 2024 10:11pm Start: 02-19-2024 End: 03-12-2024 Vitamin D3-Vitamin K2 1,250- 200 mcg capsule Discontinued NMA PO .QOD February 19, 2024 12:00am March 12, 2024 9:11pm Vitamins B1 B6 B12 liquid (7 sources) Start: 04-04-2024 End: 04-05-2024 take 1 mL by mouth once daily Vitamins B1 B6 B12 liquid Discontinued 5 mL PO daily April 04, 2024 1:00am April 05, 2024 10:41am Start: 04-04-2024 End: 04-05-2024 take 1 mL by mouth once daily Vitamins B1 B6 B12 liqui d Discontinued 5 mL PO daily April 04, 2024 12:00am April 05, 2024 9:41am 100 ml zoledronic acid 0.05 mg/ml injection (20 sources) Bisphosphonate Start: 05-27-2022 Reclast mg, In travenous, Once, 0 Refill(s) Start Date: 05/27/22 Status: Ordered Repeat number: 1 Start: 05-27-2022 Reclast mg, In travenous, Once, 0 Refill(s) Start Date: 05/27/22 Status: Ordered Start: 02-07-2021 zoledronic aci d (RECLAST) 5 mg/100 mL pgbk PREMIX piggyback Zoledronic Dvsa-Fbvgvvtc-Yvlyk Active 1 EACH .Route ONCE February 07, 2021 11:08am onceinfuse over 20 minutes 02/07/2021 Active Start: 02-07-2021 End: 07-22-2024 Zoledronic Rkvy-Uipmjkfz-Rit er 5 mg/100 mL piggyback Discontinued 1 NMA .Route ONCE February 22, 2024 9:26am July 22, 2024 11:20am onceinfuse over 20 minutes Comment on above: Zoledronic Acid-Emerson itol-Water Active 1 EACH .Route ONCE February 07, 2021 11:08am onceinfuse over 20 minutes Problems Active Problems Problem Classification Problem Date Documented Da te Episodic/Chronic Cancer of breast (20 sources) Malignant neoplasm of upper-inner quadrant of female breast; Translations: [Malignant neoplasm of upper-inner quadrant of right female breast] Onset: 7 03-06-2016 Chronic Cancer of breast (8 sources) History of malignant neoplasm of breast; Translations: [Personal history of malignant neoplasm of breast] 02-26-2021 Episodic Cardiac dysrhythmias (20 sources) Palpitations; Translations: [Tachycardia] 08-06-2020 Episodic Cataract (18 sources) Bilateral cataracts; Translations: [Unspecified cataract] 07-06-2020 Chronic Coagulation and hemorrhagic disorders (1 source) Blood coagulation disorder; Translations: [Coagulation defect, unspecified] Chronic Conduction disorders (5 sources) 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 Comment on above: benign PAC Coronary atherosclerosis and other heart disease (17 sources) Coronary atherosclerosis; Translations: [Atherosclerotic heart disease of [place] coronary artery without angina pectoris] Onset: 4 05-28-2020 Chronic Comment on above: Coronary CTA in 06/12 18 showed mild plaque in the LAD. She was started on Crestor at that time, but she stopped it due to just generally not feeling well. She is open to retrying the Crestor. Diseases of mouth; excluding dental (20 sources) Burning mouth syndrome ; Translations: [Glossodynia] Onset: 5 04-06-2024 Episodic Disorders of lipid metabolism (19 sources) Hypercholesterolemia; Translations: [Pure hypercholesterolemia, unspecified] Onset: 4 07-06-2020 Chronic Esophageal disorders (20 sources) Gastroesophageal reflux disease; Translations: [Gastro-esophageal reflux disease without esophagitis] Onset: 5 07-06-2020 Chronic Essential hypertension (20 sources) Hypertensive disorder; Translations: [Essential (primary) hypertension] Onset: 5 06-18-2021 Chronic Fever of unknown origin (10 sources) Fever with chills; Translations: [Fever] 05-28-2020 Episodic Comment on above: Patient continues wi th symptoms of fever and chills. She states she has had these symptoms for months. Fluid and electrolyte disorders (1 source) Hypo-osmolality and hyponatremia; Translations: [Hyposmolality syndrome] Onset: 5 Episodic Genitourinary symptoms and ill-defined conditions (7 sources) Urgent desire to urinate; Translations: [Urgency of urination] Episodic Heart valve disorders (5 sources) Mitral valve prolapse 01-14-2016 Chronic Heart valve disorders (18 sources) Heart murmur; Translations: [Cardiac murmur, unspecified] 07-06-2020 Episodic Malaise and fatigue (20 sources) Fatigue; Translations: [Other fatigue] Onset: 5 05-03-2019 Episodic Menopausal disorders (18 sources) Menopausal flushing; Translations: [Menopausal and female climacteric states] 02-20-2023 Chronic Nonmalignant breast conditions (5 sources) Breast lump 01-14-2016 Episodic Nutritional deficiencies (3 sources) Vitamin D deficiency, unspecified; Translations: [Vitamin D deficiency, unspecified] Onset: 4 Chronic Osteoarthritis (20 sources) Arthritis; Translations: [Unspecified osteoarthritis, unspecified site] Onset: 9 07-13-2018 Chronic Osteoporosis (20 sources) Osteoporosis; Translations: [Age-related osteoporosis without current pathological fracture] Onset: 4 01-14-2016 Chronic Other bone disease and musculoskeletal deformities (2 sources) Bone pain; Translations: [Other specified disorders of bone, unspecified site] Episodic Other circulatory disease (5 sources) Elevated blood pressure 06-23-2019 Episodic Other circulatory disease (9 sources) Elevated blood-pressure reading without diagnosis of hypertension; Translations: [Elevated blood-pressure reading, without diagnosis of hypertension] 06-17-2023 Episodic Other connective tissue disease (5 sources) H/O: musculoskeletal disease 02-11-2016 Episodic Comment on above: does not take meds Other connective tissue disease (1 source) Swelling of lower limb; Translations: [Other specified soft tissue disorders] Episodic Other connective tissue disease (18 sources) Fibromyalgia; Translations: [Fibromyalgia] 04-06-2024 Episodic Other connective tissue disease (7 sources) Pain in upper limb; Translations: [Pain in right arm] 04-26-2024 Episodic Other connective tissue disease (1 source) Fibromyalgia; Translations: [Fibromyalgia] Onset: 5 Episodic Other diseases of veins and lymphatics (1 source) Peripheral venous insufficiency; Translations: [Venous insufficiency (chronic) (peripheral)] 08-04-2024 Episodic Other endocrine disorders (18 sources) Hyperparathyroidism; Translations: [Hyperparathyroidism, unspecified] 02-20-2023 Chronic Other endocrine disorders (10 sources) Hyperparathyroidism, unspecified; Translations: [Hyperparathyroidism, unspecified] Onset: 4 Chronic Other female genital disorders (1 source) Burning sensation of vagina; Translations: [Unspecified condition associated with female genital organs and menstrual cycle] Episodic Other female genital disorders (1 source) Vaginal dryness; Translations: [Other specified noninflammatory disorders of vagina] Episodic Other female genital disorders (1 source) Vaginal irritation; Translations: [Other specified noninflammatory disorders of vagina] 06-11-2023 Episodic Other gastrointestinal disorders (18 sources) Gastrointestinal tract problem; Translations: [Other specified symptoms and signs involving the digestive system and abdomen] 07-06-2020 Episodic Other gastrointestinal disorders (13 sources) Gastrointestinal symptom; Translations: [Other specified symptoms and signs involving the digestive system and abdomen] 02-20-2023 Episodic Other gastrointestinal disorders (4 sources) Other specified symptoms and signs involving the digestive system and abdomen; Translations: [Other symptoms involving digestive system] 02-19-2023 Episodic Other hematologic conditions (1 source) Other specified abnormalities of plasma proteins; Translations: [Elevated total protein] Onset: 5 Episodic Other lower respiratory disease (5 sources) Snoring 01-14-2016 Episodic Other lower respiratory disease (1 source) Cough; Translations: [Cough] Episodic Other nervous system disorders (18 sources) Polyneuropathy; Translations: [Polyneuropathy, unspecified] 04-04-2024 Chronic Other nervous system disorders (1 source) Polyneuropathy, unspecified; Translations: [Polyneuropathy, unspecified] Onset: 5 Chronic Other nervous system disorders (18 sources) Paresthesia; Translations: [Paresthesia of skin] 05-15-2021 Episodic Other nervous system disorders (6 sources) Paresthesia of skin; Translations: [Disturbance of skin sensation] Onset: 5 Episodic Other nervous system disorders (7 sources) Numbness; Translations: [Anesthesia of skin] 04-06-2024 Episodic Other nervous system disorders (2 sources) Anesthesia of skin; Translations: [Anesthesia of skin] Onset: 5 Episodic Other non-traumatic joint disorders (7 sources) Shoulder pain; Translations: [Pain in unspecified shoulder] 04-26-2024 Episodic Other non-traumatic joint disorders (3 sources) Pain in right knee; Translations: [Right knee pain] Onset: 5 07-22-2024 Episodic Other nutritional; endocrine; and metabolic disorders (20 sources) Disorder of carbohydrate metabolism; Translations: [Other specified disorders of carbohydrate metabolism] Onset: 8 12-07-2017 Chronic Other skin disorders (1 source) Discoloration of skin; Translations: [Disorder of pigmentation, unspecified] Episodic Other skin disorders (1 source) Abnormal hair finding; Translations: [Other hair color and hair shaft abnormalities] Episodic Other skin disorders (1 source) Hirsutism; Translations: [Hirsutism] 06-11-2023 Episodic Other upper respiratory disease (5 sources) Nasal sinus problem 01-14-2016 Episodic Comment on above: every morning once s he blows nose it clears up Other upper respiratory infections (17 sources) Upper respiratory infection; Translations: [Acute upper respiratory infection, unspecified] 03-06-2024 Episodic Residual codes; unclassified (5 sources) Chill 05-03-2019 Episodic Residual codes; unclassified (17 sources) History of clinical finding in subject; Translations: [Personal history of other specified conditions] 06-18-2021 Episodic Residual codes; unclassified (7 sources) Generalized aches and pains; Translations: [Pain, unspecified] 04-12-2024 Episodic Spondylosis; intervertebral disc disorders; other back problems (20 sources) Degeneration of cervical intervertebral disc; Translations: [Other cervical disc degeneration, unspecified cervical region] Chronic Spondylosis; intervertebral disc disorders; other back problems (20 sources) Back problem;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 [id number] [address] [place] [address] [place] Monocytes (Bld) [#/Vol] 0.99 10*3/uL High <0.87 [facility] Comment on above: Order Comment: Speci men Type: BLOOD SPECIMEN Ordering Facility: [facility] Address: [address] [place] [address] Performed By: #### 5 7021-8 #### [facility] CLIA [id number] [address] [place] [address] [place] Monocytes/100 WBC (Bld) 11.3 % Normal [facility] Comment on above: Order Comment: Speci men Type: BLOOD SPECIMEN Ordering Facility: [facility] Address: [address] [place] [address] Performed By: #### 5 7021-8 #### [facility] CLIA [id number] [address] [place] [address] [place] Neutrophils (Bld) [#/Vol] 6.78 10*3/uL Normal 1.45-7.50 [facility] Comment on above: Order Comment: Speci men Type: BLOOD SPECIMEN Ordering Facility: [facility] Address: [address] [place] [address] Performed By: #### 5 7021-8 #### [facility] CLIA [id number] [address] [place] [address] [place] Neutrophils/100 WBC (Bld) 77.6 % Normal [facility] Comment on above: Order Comment: Speci men Type: BLOOD SPECIMEN Ordering Facility: [facility] Address: [address] [place] [address] Performed By: #### 5 7021-8 #### [facility] CLIA [id number] [address] [place] [address] [place] Nucleated RBC (Bld) [#/Vol] 10*3/uL Normal <0.01 [facility] Comment on above: Order Comment: Speci men Type: BLOOD SPECIMEN Ordering Facility: [facility] Address: [address] [place] [address] Performed By: #### 5 7021-8 #### [facility] CLIA [id number] [address] [place] [address] [place] Nucleated RBC/100 WBC (Bld) [Ratio] 0.0 /100 WBC Normal [facility] Comment on above: Order Comment: Speci men Type: BLOOD SPECIMEN Ordering Facility: [facility] Address: [address] [place] [address] Performed By: #### 5 7021-8 #### [facility] CLIA [id number] [address] [place] [address] [place] Platelet mean volume (Bld) [Entitic vol] 8.7 fL Low 9.0-12.7 [facility] Comment on above: Order Comment: Speci men Type: BLOOD SPECIMEN Ordering Facility: [facility] Address: [address] [place] [address] Performed By: #### 5 7021-8 #### [facility] CLIA [id number] [address] [place] [address] [place] Platelets (Bld) [#/Vol] 290 10*3/uL Normal 150-400 [facility] Comment on above: Order Comment: Speci men Type: BLOOD SPECIMEN Ordering Facility: [facility] Address: [address] [place] [address] Performed By: #### 5 7021-8 #### [facility] CLIA [id number] [address] [place] [address] [place] RBC (Bld) [#/Vol] 3.41 10*6/uL Low 3.90-5.20 [facility] Comment on above: Order Comment: Crystali smita Type: BLOOD SPECIMEN Ordering Facility: [facility] Address: [address] [place] [address] Performed By: #### 5 7021-8 #### [facility] CLIA [id number] [address] [place] [address] [place] WBC (Bld) [#/Vol] 8.73 10*3/uL Normal 3.70-11.00 [facility] Comment on above: Order Comment: Byron ordoñez Type: BLOOD SPECIMEN Ordering Facility: [facility] Address: [address] [place] [address] Performed By: #### 5 7021-8 #### [facility] [id number] [address] [place] [address] [place] HFE (HEMOCHROMATOSIS)on INTERPRETATION (HEMDNA) Normal [facility] Comment on above: Order Comment: Byron ordoñez Type: BLOOD SPECIMEN Ordering Facility: [facility] Address: [address] [place] [address] Result Comment: HFE (Hemochromatosis) Laboratory Accession Number: [id number] Result: C282Y: WT H63D: NINFA S65C: WT Interpretation: 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 H63D homozygosity is present in approximately 1-2% of the population. Such individuals may have abnormal iron indices but it is unlikely that H63D/H63D causes clinically significant iron overload in the absence of other modifying factors such as alcoholism, viral hepatitis, and other genetic factors. The sample is negative for the C282Y and S65C variants. Methodology: Patient DNA was evaluated for three missense variants in the HFE gene (NM_000410.3) using multiplex polymerase chain reaction (PCR) followed by melting curve analysis. The variants interrogated are c.845G>A, p.Rnt007Vha; g.45563293; [id number] (legacy name C282Y), c.187C>G, p.Lrk85Yla; g.47127524; [id number] (legacy name H63D) and c.193A>T, p.Pal73Ygs; g.82189313; [id number] (legacy name S65C). The reference genome used was GRCh37/hg19. Limitations: DNA studies do not provide a definitive genetic risk in all individuals. This targeted test is designed to detect three specific variants (see methodology for details) in HFE (OMIM 347102). Uncommon variants or single nucleotide polymorphisms may affect binding of probes and thus result in false negative, false positive, or indeterminate results. This test does not detect other HFE variants. Disclaimer: This test was developed and its performance characteristics determined by [facility]'s Pathology and Laboratory Medicine Department. It has not been cleared or approved by the FDA. [facility]'s Pathology and Laboratory Medicine Department is regulated under CLIA as certified to perform high-complexity testing. This test is used for clinical purposes. It should not be regarded as investigational or for research. Test performed at [facility], [address] [place] [address]. CLIA Number: [id number] Interpretation performed by Ernestine Spears, PhD Performed By: #### L [id number] #### [facility] CLIA [id number] [address] [place] [address] [place] Osmolality Uron 05-25-2024 Osmolality (U) [Osmolality] 109 mosm/kg Normal 50-1200 [facility] Comment on above: Order Comment: Speci men Type: BLOOD SPECIMEN Ordering Facility: [facility] Address: [address] [place] [id number] Performed By: #### L [id number] #### [facility] CLIA [id number] [address] [place] [id number] [facility] PATHOLOGIST INTERPRETATION C BC AND DIFFERENTIAL (LAB REFLEX ORDER-NO BILL)on 05-25-2024 Nuisance Wildlife Trapper review Robin (Unsp spec) [Interp] No review performed. Normal [facility] Comment on above: Order Comment: Speci men Type: BLOOD SPECIMEN Ordering Facility: [facility] Address: [address] [place] [address] Performed By: #### L [id number] #### [facility] CLIA [id number] [address] [place], [place] [id number] [facility] STAFF REVIEW, CBCDIF The Pathologist Interpretation on this sample was cancelled because the hematology analyzer did not flag any parameters as requiring manual review. If there is a specific clinical concern for which you would like a pathologist to review the blood smear, please call Lab Client Services within 28 days. Normal [facility] Comment on above: Order Comment: Speci men Type: BLOOD SPECIMEN Ordering Facility: [facility] Address: [address] [place] [address] Performed By: #### L [id number] #### [facility] CLIA [id number] [address] [place] [address] [place] Sodium ?Tm Ur-sCncon 025 Sodium Unsp time (U) [Moles/Vol] <20 Normal 14-216 [facility] Comment on above: Order Comment: Speci men Type: BLOOD SPECIMEN Ordering Facility: [facility] Address: [address] [place] [address] Result Comment: Resu lt rechecked. Performed By: #### L [id number] #### [facility] CLIA [id number] [address] [place] [address] [place] NCS and/or EMG Patienton NCS and/or EMG Patient [facility] Pulmonary Services/Neurology [address] [place] [address] MR#: [id number] Acct: [id number] Name: KELLI MONROY Rep #: [id number] : 1950 74 From: Tory Puentes MD Referring Dr: Anthony Mckeon MD Status: REG CL I Location: PSN Date: 05/17/24 Sex: F C NCS and/or EMG Patient Report Ordering Doctor: Anthony Mckeon DATE OF SERVICE: 05/17/24 Clinical Summary: 74 year old female patient with symptoms of burning pain in her feet. Nerve Conduction Studies Summary: Nerve conduction studies were performed in the bilateral lower extremities. The sural to radial amplitude ratio (SRAR) utilizing the right radial SNAP amplitude (35.5 microvolts) from the upper extremity study performed on 05/11/24 was 0.15. Needle Examination Summary: Needle examination of select muscles of the bilateral lower extremities was normal. Impression: This is an abnormal bilateral lower extremity study. The presence of a sural to radial amplitude ratio (SRAR) of less than 0.21, as seen in this study, is indicative of a mild, length dependent, sensory, axonal polyneuropathy. There is no electrodiagnostic evidence of a right or left lumbosacral radiculopathy. Multi [facility] C[facility] Neurology Neurology Interp Codes: 44819-47 Musc test done w/n test comp (interp) (2) and 46376-34 Nrv cndj test 7-8 studies (interp) 05/17/24 1345 Date Tory Puentes MD CC: Dr. Tory Puentes MD; Dr. Anthony Mckeon MD; Dr. Angel Fuller MD Date Dictated: 05/17/24 132 Date Transcribed: 05/17/241324 Foot Piece Assembler: Signed Normal [facility] NCS and/or EMG Patienton NCS and/or EMG Patient [facility] Pulmonary Services/Neurology [address] [place] [address] MR#: [id number] Acct: [id number] Name: KELLI MONROY Rep #: [id number] : 1950 74 From: Shakeel Spears MD Referring Dr: Anthony Mckeon MD Status: REG CL I Location: [facility] Date: 05/11/24 Sex: F C NCS and/or EMG Patient Report Ordering Doctor: Anthony Mckeon DATE OF SERVICE: 05/11/24 Kelli presents with complaints of burning along the chest wall and upper arms. She has a history of left carpal tunnel release. Electrodiagnostic findings: Right median motor nerve demonstrates prolonged latency with normal amplitude and reduced conduction velocity left median motor nerve demonstrates normal distal latency , amplitude and conduction velocity. Ulnar motor response within normal limits bilaterally. Normal median ulnar F???waves. Prolonged right median sensory latency at the wrist. Normal ulnar and radial sensory responses. Needle EMG testing was performed in the upper limbs. All muscles tested showed no evidence of denervation with normal motor unit action potentials. Electrodiagnostic impression: This is an abnormal study in the upper limbs 1. Electrodiagnostic findings suggestive of right-sided median mononeuropathy. This consistent with a mild right carpal tunnel syndrome. 2. There is no electrodiagnostic evidence for cervical radiculopathy. Multi Select Codes Neurology Neurology Interp Codes: 12997-82 Musc test done w/n test comp (interp) (2) and 44865-88 Nrv cndj test 9-10 studies (interp) 05/11/24 1423 Date Shakeel Spears MD CC: Dr. Shakeel Spears MD; Dr. Anthony Mckeon MD; Dr. Angel Fuller MD Date Dictated: 05/11/241419 Date Transcribed: 05/11/241419 Foot Piece Assembler: NIDHI Signed Normal [facility] Office Visit Reporton 2024 Office Visit Report [facility] [address] [place] [address] OFFICE VISIT Date of Service: 05/10/24 MR#: [id number] Acct: [id number] Patient: KELLI MONROY Rep #: [id number] : 1950 Provider: Dr. Anthony munson MD Age/Sex: 74/F Location: [facility] Status: Signed Intake Vital Signs 05/02/24 09:28 05/10/24 11:00 Height 5 ft 4 in Weight: 151 lb 151 lb BMI 25.9 BP 130/70 H Blood Pressure Location Lt brachial Position Sitting Respiration 17 Pulse 80 Pulse Source Monitor Temp 98.2 F Temp Source Temporal Pulse Oximetry (%) 99 Oxygen Delivery Method room air Intake Visit Reasons: B12 inject Chief Complaint: Follow up Allergies duloxetine (From Cymbalta) Adverse Reaction (Mild, Verified 05/02/24 09:31) dizziness Have you fallen in the past year?: No Office Meds cyanocobalamin (vitamin B-12) 1,000 mcg/mL injection solution Performing Provider: Anthony Mckeon MD Performing Location: [facility] Administered by: Corry Mckeon on 05/10/24 10:36 Dose Route Admin Location Dispensed Lot Number Expiration Date [facility] Man ufacturer 1,000 mcg IM left deltoid 1 mL [id number] 05/23/26 49796-188-55 ALEJANDRO SILVA Comments: The patient presents for B12 injection for treatment of fatigue. She has fatigue. Her last B12 injection was of benefit for fatigue. The patient is awake and alert. B12 1000mcg IM was administered today. There were no complications. Assessment and Plan Assessment and Plan (1) Fatigue: Status: Acute Orders: Orders Vitamin B12 Today R53.83 - Other fatigue Clinical Quality Measures Falls Risk Screening/Assistive Devices Have you fallen in the past year?: No 05/10/241815 Date [facility]: Date (if applicable) CC: Normal [facility] Orthopedic Visit Reporton Orthopedic Visit Report [facility] [address] [place] [address] OFFICE VISIT Date of Service: 05/02/24 MR#: [id number] Acct: [id number] Name: KELLI MONROY Rep #: [id number] : 1950 Provider: VIRGINIA Singh Age/Sex: 74/F Location: [facility] Status: Signed Intake Vital Signs 04/18/24 12:14 05/02/24 09:28 Height 5 ft 4 in 5 ft 4 in Weight: 151 lb BMI 25.9 Intake Visit Reasons: CERVICAL SPINE Chief Complaint: Follow up Accompanied by: Self Is patient in pain?: Yes Pain scale (1-10): 3 Allergies duloxetine (From Cymbalta) Adverse Reaction (Mild, Verified 05/02/24 09:31) dizziness Medications ???Medication ???Instructions ???Recorded ???Confirmed ???Type acetaminophen 500 mg tablet 1,000 mg PO BID PRN Pain 06/10/23 05/02/24 History (Tylenol Extra Strength) pantoprazole 40 mg tablet,delayed 40 mg PO DAILY 11/20/23 05/02/24 History release zoledronic acid 5 mg/100 mL in 1 ea .Route ONCE #100 mL 02/22/24 05/02/24 Rx mannitol 5 %-water intravenous piggybck vitamin D3 500 unit-vit K 500 1 tab PO QDAY 04/04/24 05/02/24 Hi story mcg-berberine 90 mg-hops 370 mg tablet cholecalciferol (vitamin D3) 1,250 1,250 mcg PO QWEEK #4 caps 04/0505/02/24 Rx mcg (50,000 unit) capsule cyanocobalamin (vitamin B-12) 100 mcg subcut QMONTH 04/05/2412/17 History 1,000 mcg/mL injection solution gabapentin 100 mg capsule 100 mg PO BID #60 caps 04/06/24 Rx Have you fallen in the past year?: Yes PFSH Medical History Episode of syncope Influenza B Acute pharyngitis Burn of right upper extremity Atherosclerosis of coronary artery of [place] heart without angina pectoris Fibromyalgia Menopausal hot flushes Symptoms of gastroesophageal reflux Hypertension Hyperparathyroidism Paresthesia Skin cancer GERD (gastroesophageal reflux disease) Osteopenia Osteoarthritis Heart murmur Hormone deficiency High cholesterol Headache Gastrointestinal problem Cataracts, bilateral Breast cancer Breast lump UTI (urinary tract infection) Back problem Arthritis Hx of breast cancer Surgical History History of left heart catheterization (08/16/20) History of endoscopy History of colonoscopy History of lumpectomy Hx of cataract surgery H/O: hysterectomy Family History Father Heart disease Mother Heart disease Osteoporosis Thyroid disorder Brother Heart disease Hypertension Hypercholesterolemia Daughter Cancer Sister Arthritis Hypertension Hypercholesterolemia Osteoporosis Thyroid disorder Social History Smoking Status: Never smoker alcohol intake: never substance use type: does not use what type of physical activity do you participate in: walking and weight training frequency: 1-2 times per week HPI CERVICAL SPINE Details: This documentation accurately reflects the service provided and the decisions made by me, VIRGINIA Singh 05/02/24 09. Part of today???s visit was documented by Chirag Mayen MA, acting as scribe. KELLI MONROY is a 74 year old F here today for cervical spine follow up. She has been going to a chiropractor. The chiropractor states she needs to see an orthopedic for her spine. Patient got xrays at the hospital. Patient would like the TRAIN DRIVER to explain the xrays to her. She continues to say she only has continuous throat burning sensation with only occasional pain down her arms that does not last for long. She also went to the ER for influenza B which she is still recovering her strength from. She had a fall due to this weakness and was seen at the ED. No issues were found at the ED and she had CT of the neck, thoracic, and low back. Patient says she also has tailbone pain following her fall with x-rays done that did not show any fracture. HPI from 03/22/24: KELLI MONROY is a 74 year old F here today for ED f/u on back pain. She states that she has a hx of back pain and does see a chiropractor but hasn't been getting any relief and is beginning to not trust her chiropractor. She has seen Dr. escalera in the past for the pain. When she saw Dr. Templeton in a year ago he recommended a cervical traction unit however that unit was not covered by her insurance and she was not able to pay for it [id number]. She is wanting an MRI of her back and wants an understanding of what is going on with her spine. When she was in the ED they did do a CT of her neck. The symptoms that she has bee having is burning over the top of her chest/throat into her left elbow. Says that she does get a burning a (more content not included)... Normal [facility] .Auto Diffon 04-28-2024 Basophil, Absolute 0.0 10 3/mcL Normal 0.0-0.[address] [facility] Comment on above: Performed By: #### F ERR, GFR, FES, CMP, ADIFF, ANEU, TSH, CBC #### [address] [address] Basophils/100 WBC (Bld) 0.3 % Normal 0.0-2.5 [facility] Comment on above: Performed By: #### F ERR, GFR, FES, CMP, ADIFF, ANEU, TSH, CBC #### [address] [address] Eosinophil, Absolute 0.0 10 3/mcL Normal 0.0-0.7 [facility] Comment on above: Performed By: #### F ERR, GFR, FES, CMP, ADIFF, ANEU, TSH, CBC #### [address] [address] Eosinophils/100 WBC (Bld) 0.3 % Normal 0.0-6.0 [facility] Comment on above: Performed By: #### F ERR, GFR, FES, CMP, ADIFF, ANEU, TSH, CBC #### [address] [address] Lymphocyte, Absolute 0.7 10 3/mcL Low 0.9-4.3 [facility] Comment on above: Performed By: #### F ERR, GFR, FES, CMP, ADIFF, ANEU, TSH, CBC #### [place] [id number] [place] [address] Lymphocytes/100 WBC (Bld) 9.2 % Low 20.0-40.0 [facility] Comment on above: Performed By: #### F ERR, GFR, FES, CMP, ADIFF, ANEU, TSH, CBC #### [place] [id number] [place] [address] Monocyte, Absolute 0.9 10 3/mcL Normal 0.1-1.[address] [facility] Comment on above: Performed By: #### F ERR, GFR, FES, CMP, ADIFF, ANEU, TSH, CBC #### [address] [address] Monocytes/100 WBC (Bld) 11.5 % Normal 2.0-13.0 [facility] Comment on above: Performed By: #### F ERR, GFR, FES, CMP, ADIFF, ANEU, TSH, CBC #### [address] [address] Neutrophils/100 WBC (Bld) 78.7 % High 50.0-75.0 [facility] Comment on above: Performed By: #### F ERR, GFR, FES, CMP, ADIFF, ANEU, TSH, CBC #### [address] [address] .GFRon 04-28-2024 Estimated Glomerular Filtration Rate 96 ml/min/1.73sqm Normal [facility] Comment on above: Result Comment: Stages of Chronic Kidney Disease (CKD) Stage Description eGFR(ml/min/1.73 sq.m.) CKD 1 Normal kidney function or >=90 normal kindney function with possible kidney damage (ex. Proteinuria) CKD 2 Kidney damage with mild loss 60-89 of kidney function CKD 3a Mild to moderate loss of kidney 45-59 function CKD 3b Moderate to severe loss of 30-44 of kindey function CKD 4 Severe loss of kidney function 15-29 CKD 5 Kidney failure <15 Note: (go live 2024) the eGFR calculation was updated to the 2020 CKD-EPI creatinine equation without a race factor to calculate the eGFR results. Performed By: #### V IDH, GFR, B12, BMP #### [place] [id number] .NEUABSon 04-28-2024 Neutrophil, Absolute 6.2 10 3/mcL Normal 2.3-8.1 [facility] Comment on above: Performed By: #### F ERR, GFR, FES, CMP, ADIFF, ANEU, TSH, CBC #### [place] [id number] CBCon 04-28-2024 Erythrocyte distribution width (RBC) [Ratio] 12.4 % Normal 11.5-15.5 [facility] Comment on above: Performed By: #### F ERR, GFR, FES, CMP, ADIFF, ANEU, TSH, CBC #### [place] [address] Hematocrit (Bld) [Volume fraction] 36.3 % Normal 34.0-46.0 [facility] Comment on above: Performed By: #### F ERR, GFR, FES, CMP, ADIFF, ANEU, TSH, CBC #### [place] [address] Hgb 12.9 G/dL Normal 12.0-16.0 [facility] Comment on above: Performed By: #### F ERR, GFR, FES, CMP, ADIFF, ANEU, TSH, CBC #### [place] [address] MCH (RBC) [Entitic mass] 33.2 pg High 27.0-33.0 [facility] Comment on above: Performed By: #### F ERR, GFR, FES, CMP, ADIFF, ANEU, TSH, CBC #### [place] [address] MCHC 35.6 G/dL Normal 32.0-36.0 [facility] Comment on above: Performed By: #### F ERR, GFR, FES, CMP, ADIFF, ANEU, TSH, CBC #### [place] [address] MCV (RBC) [Entitic vol] 93.3 fL Normal 80.0-99.0 [facility] Comment on above: Performed By: #### F ERR, GFR, FES, CMP, ADIFF, ANEU, TSH, CBC #### [place] [address] Platelet 489 10 3/mcL High 150-450 [facility] Comment on above: Performed By: #### F ERR, GFR, FES, CMP, ADIFF, ANEU, TSH, CBC #### [place] [address] Platelet mean volume (Bld) [Entitic vol] 7.0 fL Normal 6.6-10.5 [facility] Comment on above: Performed By: #### F ERR, GFR, FES, CMP, ADIFF, ANEU, TSH, CBC #### [place] [address] RBC 3.89 10 6/mcL Low 4.10-5.30 [facility] Comment on above: Performed By: #### F ERR, GFR, FES, CMP, ADIFF, ANEU, TSH, CBC #### [place] [address] WBC 7.8 10 3/mcL Normal 4.5-10.8 [facility] Comment on above: Performed By: #### F ERR, GFR, FES, CMP, ADIFF, ANEU, TSH, CBC #### [place] [address] CMPon 04-28-2024 Albumin Level 3.9 G/dL Normal 3.2-4.8 [facility] Comment on above: Performed By: #### F ERR, GFR, FES, CMP, ADIFF, ANEU, TSH, CBC #### [place] [address] Albumin/Globulin [Mass ratio] 1.1 {ratio} Normal 0.9-1.6 [facility] Comment on above: Performed By: #### F ERR, GFR, FES, CMP, ADIFF, ANEU, TSH, CBC #### [place] [address] ALP [Catalytic activity/Vol] 73 U/L Normal 38-126 [facility] Comment on above: Performed By: #### F ERR, GFR, FES, CMP, ADIFF, ANEU, TSH, CBC #### [address] [address] ALT [Catalytic activity/Vol] 16 U/L Normal 10-49 [facility] Comment on above: Performed By: #### F ERR, GFR, FES, CMP, ADIFF, ANEU, TSH, CBC #### [address] [address] AST [Catalytic activity/Vol] 25 U/L Normal 8-34 [facility] Comment on above: Performed By: #### F ERR, GFR, FES, CMP, ADIFF, ANEU, TSH, CBC #### [address] [address] Bili Total 0.50 mg/dL Normal 0.20-1.20 [facility] Comment on above: Result Comment: Use of this assay is not recommended for patients undergoing treatment with eltrombopag due to the potential for falsely elevated results. Performed By: #### F ERR, GFR, FES, CMP, ADIFF, ANEU, TSH, CBC #### [place] [id number] BUN/Creatinine Ratio 13.5 ratio Normal 10.0-22.[address] [facility] Comment on above: Performed By: #### F ERR, GFR, FES, CMP, ADIFF, ANEU, TSH, CBC #### [address] [address] Calcium [Mass/Vol] 9.9 mg/dL Normal 8.7-10.4 [facility] Comment on above: Performed By: #### F ERR, GFR, FES, CMP, ADIFF, ANEU, TSH, CBC #### [address] [address] Chloride [Moles/Vol] 97 mmol/L Low 98-[address] [facility] Comment on above: Performed By: #### F ERR, GFR, FES, CMP, ADIFF, ANEU, TSH, CBC #### [place] [id number] CO2 [Moles/Vol] 25 mmol/L Normal 22-32 [facility] Comment on above: Performed By: #### F ERR, GFR, FES, CMP, ADIFF, ANEU, TSH, CBC #### [place] [id number] Creatinine [Mass/Vol] 0.52 mg/dL Normal 0.50-1.20 [facility] Comment on above: Result Comment: Test ing performed on MyStream analyzer using enzymatic creatinine methodology. Performed By: #### F ERR, GFR, FES, CMP, ADIFF, ANEU, TSH, CBC #### [place] [address] Electrolyte Balance 8.0 mEq/L Normal 4.0-15.0 [facility] Comment on above: Performed By: #### F ERR, GFR, FES, CMP, ADIFF, ANEU, TSH, CBC #### [place] [id number] Globulin 3.5 G/dL Normal 1.5-3.8 [facility] Comment on above: Performed By: #### F ERR, GFR, FES, CMP, ADIFF, ANEU, TSH, CBC #### [place] [id number] Glucose [Mass/Vol] 93 mg/dL Normal 82-115 [facility] Comment on above: Performed By: #### F ERR, GFR, FES, CMP, ADIFF, ANEU, TSH, CBC #### [address] [address] Potassium [Moles/Vol] 4.2 mmol/L Normal 3.5-5.0 [facility] Comment on above: Performed By: #### F ERR, GFR, FES, CMP, ADIFF, ANEU, TSH, CBC #### [address] [address] Sodium [Moles/Vol] 130 mmol/L Low 136-145 [facility] Comment on above: Performed By: #### F ERR, GFR, FES, CMP, ADIFF, ANEU, TSH, CBC #### [place] [id number] Total Protein 7.4 G/dL Normal 5.7-8.2 [facility] Comment on above: Performed By: #### F ERR, GFR, FES, CMP, ADIFF, ANEU, TSH, CBC #### [place] [address] Urea nitrogen [Mass/Vol] 7.0 mg/dL Low 8.0-22.0 [facility] Comment on above: Performed By: #### F ERR, GFR, FES, CMP, ADIFF, ANEU, TSH, CBC #### [place] [id number] Zamzam 04-28-2024 Ferritin [Mass/Vol] 300.3 ng/mL High 8.0-252.[address] [facility] Comment on above: Performed By: #### F ERR, GFR, FES, CMP, ADIFF, ANEU, TSH, CBC #### [place] [address] FESon 04-28-2024 Iron [Mass/Vol] 81 ug/dL Normal 50-170 [facility] Comment on above: Performed By: #### F ERR, GFR, FES, CMP, ADIFF, ANEU, TSH, CBC #### [place] [address] Iron Sat 28 % Normal [facility] Comment on above: Performed By: #### F ERR, GFR, FES, CMP, ADIFF, ANEU, TSH, CBC #### [place] [id number] TIBC 289 mcg/dL Normal 250-500 [facility] Comment on above: Performed By: #### F ERR, GFR, FES, CMP, ADIFF, ANEU, TSH, CBC #### [place] [address] TSHon 04-28-2024 TSH 0.950 mIU/mL Normal 0.550-4.780 [facility] Comment on above: Performed By: #### V IDH, GFR, B12, BMP #### [address] [address] 12 Lead EKGon 04-18-2024 12 Lead EKG [facility] Cardiovascular Services [address] [place] [address] 12 Lead EKG 04/18/24 1334 MR#: [id number] Acct: [id number] Name: KELLI MONROY Rep #: [id number] : 1950 74 From: Lorenzo Weeks MD Attending Dr: Status: DEP ER Ordering Dr: Julien Holder DO Date: 04/18/24 Location: ED Sex: F C Admitted: Test Reason : Blood Pressure : */* mmHG Vent. Rate : 65 BPM Atrial Rate : 65 BPM P-R Int : 146 ms QRS Dur : 86 ms QT Int : 420 ms P-R-T Axes : 54 1 53 degrees QTcB Int : 436 ms Sinus rhythm with Premature atrial complexes Otherwise normal ECG Confirmed by Lorenzo Weeks ([id number]), publishing editor ARELI SOLIS ([id number]) on 04/20/2024 8:01:19 AM Referred By: Confirmed By: Lorenzo Weeks 04/20/24800 Date Lorenzo Weeks MD CC: Dr. Julien Holder DO; Dr. Angel Fuller MD Signed Normal [facility] Absolute lymphocyte countOrd ered By: Julien Holder on 04-18-2024 Lymphocytes Auto (Unsp spec) [#/Vol] 0.59 10*3/uL Low 0.83-4.51 [facility] Absolute neutrophil countOrd ered By: Julien Holder on 04-18-2024 Neutrophils (Bld) [#/Vol] 3.9 10*3/uL 2.0-7.7 [facility] Automated lymphocyte count a s percentage of total leukocytesOrdered By: Julien Holder on 04-18-2024 Lymphocytes/100 WBC Auto (Unsp spec) 11.4 % Low 19-41 [facility] Bacteria LM.HPF (Urine sed) [#/Area]Ordered By: Julien Holder on 04-18-2024 Urine Bacteria RARE /hpf None Seen [facility] Basic Metabolic Profile (BMP )on 04-18-2024 BUN/CRE 9.0 RATIO Low 10-20 [facility] Comment on above: Order Comment: 'TROP ' Serial specimen #1, #2 or #3: 1 Performed By: #### L 500.2500, L100.0100, L501.4020, L500.3400 ####[facility] [address] [place], [address] CA,Total 8.9 mg/dL Normal 8.5-10.1 [facility] Comment on above: Order Comment: 'TROP ' Serial specimen #1, #2 or #3: 1 Performed By: #### L 500.2500, L100.0100, L501.4020, L500.3400 ####[facility] [address] [place], [address] Chloride [Moles/Vol] 96 mmol/L Low 98-107 [facility] Comment on above: Order Comment: 'TROP ' Serial specimen #1, #2 or #3: 1 Performed By: #### L 500.2500, L100.0100, L501.4020, L500.3400 ####[facility] [address] [place], [address] CO2 [Moles/Vol] 27.0 mmol/L Normal 21.0-32.0 [facility] Comment on above: Order Comment: 'TROP ' Serial specimen #1, #2 or #3: 1 Performed By: #### L 500.2500, L100.0100, L501.4020, L500.3400 ####[facility] [address] [place], [address] Creatinine [Mass/Vol] 0.56 mg/dL Normal 0.55-1.02 [facility] Comment on above: Order Comment: 'TROP ' Serial specimen #1, #2 or #3: 1 Result Comment: The validity of the calculated GFR GFRAA in patients over 70 years has not been determined. Clinical correlation is essential. Performed By: #### L 500.2500, L100.0100, L501.4020, L500.3400 ####[facility] [address] [place], [address] ECRCL 57.03 ml/min Normal [facility] Comment on above: Order Comment: 'TROP ' Serial specimen #1, #2 or #3: 1 Performed By: #### L 500.2500, L100.0100, L501.4020, L500.3400 ####[facility] [address] [place], [address] EST GFR - AA 137 mL/min Normal >60 [facility] Comment on above: Order Comment: 'TROP ' Serial specimen #1, #2 or #3: 1 Result Comment: Afri can [place] GFR Calc Performed By: #### L 500.2500, L100.0100, L501.4020, L500.3400 ####[facility] [address] [place], [address] GAP 7 Normal 5-15 [facility] Comment on above: Order Comment: 'TROP ' Serial specimen #1, #2 or #3: 1 Performed By: #### L 500.2500, L100.0100, L501.4020, L500.3400 ####[facility] [address] [place], [address] GFR/1.73 sq M.predicted among non-blacks MDRD (S/P/Bld) [Vol rate/Area] 113 mL/min/{1.73_m2} Normal >60 [facility] Comment on above: Order Comment: 'TROP ' Serial specimen #1, #2 or #3: 1 Result Comment: Non- GFR Calc Performed By: #### L 500.2500, L100.0100, L501.4020, L500.3400 ####[facility] [address] [place], [address] Glucose [Mass/Vol] 96 mg/dL Normal 74-106 [facility] Comment on above: Order Comment: 'TROP ' Serial specimen #1, #2 or #3: 1 Performed By: #### L 500.2500, L100.0100, L501.4020, L500.3400 ####[facility] [address] [place], [address] Potassium [Moles/Vol] 3.8 mmol/L Normal 3.5-5.1 [facility] Comment on above: Order Comment: 'TROP ' Serial specimen #1, #2 or #3: 1 Performed By: #### L 500.2500, L100.0100, L501.4020, L500.3400 ####[facility] [address] [place], [address] Sodium [Moles/Vol] 130 mmol/L Low 136-145 [facility] Comment on above: Order Comment: 'TROP ' Serial specimen #1, #2 or #3: 1 Performed By: #### L 500.2500, L100.0100, L501.4020, L500.3400 ####[facility] [address] [place], [address] Urea nitrogen [Mass/Vol] 5 mg/dL Low 7-18 [facility] Comment on above: Order Comment: 'TROP ' Serial specimen #1, #2 or #3: 1 Performed By: #### L 500.2500, L100.0100, L501.4020, L500.3400 ####[facility] [address] [place], [address] Basophil percentageOrdered B y: Julien Holder on 04-18-2024 Basophils/100 WBC (Bld) 0.4 % 0-1 [facility] Bilirubin Test strip Ql (U)O rdered By: Julien Holder on 04-18-2024 Bilirubin Ql (U) Negative Negative [facility] Bilirubin directOrdered By: Julien Holder on 04-18-2024 Bilirubin.direct [Mass/Vol] 0.14 mg/dL 0.00-0.30 [facility] Bilirubin, totalOrdered By: Julien Holder on 04-18-2024 Bilirubin [Mass/Vol] 0.50 mg/dL 0.20-1.00 [facility] Comment on above: For patients on eltr ombopag therapy, use of Dimension [place] TBIL is not recommended. Blood urea nitrogen (BUN)/cr eatinine ratioOrdered By: Julien Holder on 04-18-2024 Urea nitrogen/Creatinine [Mass ratio] 9.0 mg/mg Low 10-20 [facility] CBC W/Diff, Automatedon 03-27 Absolute Lymph 0.59 X10 3/uL Low 0.83-4.51 [facility] Comment on above: Performed By: #### L 500.2500, L100.0100, L501.4020, L500.3400 ####[facility] [address] [place], [address] Absolute Neut 3.9 X10 3/uL Normal 2.0-7.7 [facility] Comment on above: Performed By: #### L 500.2500, L100.0100, L501.4020, L500.3400 ####[facility] [address] [place], [address] Basophils/100 WBC (Bld) 0.4 % Normal 0-1 [facility] Comment on above: Performed By: #### L 500.2500, L100.0100, L501.4020, L500.3400 ####[facility] [address] [place], [address] Eosinophils/100 WBC (Bld) 0.4 % Normal 0-5 [facility] Comment on above: Performed By: #### L 500.2500, L100.0100, L501.4020, L500.3400 ####[facility] [address] [place], [address] Erythrocyte distribution width (RBC) [Ratio] 11.8 % Normal 11.6-14.6 [facility] Comment on above: Performed By: #### L 500.2500, L100.0100, L501.4020, L500.3400 ####[facility] [address] [place], [address] Hematocrit (Bld) [Volume fraction] 39.7 % Normal 37-47 [facility] Comment on above: Performed By: #### L 500.2500, L100.0100, L501.4020, L500.3400 ####[facility] [address] [place], [address] Hemoglobin (Bld) [Mass/Vol] 13.5 g/dL Normal 12.0-15.0 [facility] Comment on above: Performed By: #### L 500.2500, L100.0100, L501.4020, L500.3400 ####[facility] [address] [place], [address] IG% 0.400 Normal 0.0-0.9 [facility] Comment on above: Result Comment: IG% - Immature Granulocytes (promyelocytes, myelocytes and metamyelocytes) > 1% indicates that a LEFT SHIFT is Present. Performed By: #### L 500.2500, L100.0100, L501.4020, L500.3400 ####[facility] [address] [place], [address] Lymphocytes/100 WBC (Bld) 11.4 % Low 19-41 [facility] Comment on above: Performed By: #### L 500.2500, L100.0100, L501.4020, L500.3400 ####[facility] [address] [place], [address] MCH (RBC) [Entitic mass] 31.5 pg Normal 27.0-32.0 [facility] Comment on above: Performed By: #### L 500.2500, L100.0100, L501.4020, L500.3400 ####[facility] [address] [place], [address] MCHC (RBC) [Mass/Vol] 34.0 g/dL Normal 32-36 [facility] Comment on above: Performed By: #### L 500.2500, L100.0100, L501.4020, L500.3400 ####[facility] [address] [place], [address] MCV (RBC) [Entitic vol] 92.8 fL Normal 81-99 [facility] Comment on above: Performed By: #### L 500.2500, L100.0100, L501.4020, L500.3400 ####[facility] [address] [place], [address] Monocytes/100 WBC (Bld) 12.4 % High 0-10 [facility] Comment on above: Performed By: #### L 500.2500, L100.0100, L501.4020, L500.3400 ####[facility] [address] [place], [address] Neutrophils/100 WBC (Bld) 75.0 % High 47-70 [facility] Comment on above: Performed By: #### L 500.2500, L100.0100, L501.4020, L500.3400 ####[facility] [address] [place], [address] Nucleated RBC (Bld) [#/Vol] 0 10*3/uL Normal 0-5 [facility] Comment on above: Performed By: #### L 500.2500, L100.0100, L501.4020, L500.3400 ####[facility] [address] [place], [address] Platelet mean volume (Bld) [Entitic vol] 8.8 fL Normal 6.2-12.0 [facility] Comment on above: Performed By: #### L 500.2500, L100.0100, L501.4020, L500.3400 ####[facility] [address] [place], [address] Platelets (Bld) [#/Vol] 249 10*3/uL Normal 150-450 [facility] Comment on above: Performed By: #### L 500.2500, L100.0100, L501.4020, L500.3400 ####[facility] [address] [place], [address] RBC (Bld) [#/Vol] 4.28 10*6/uL Normal 4.2-5.4 [facility] Comment on above: Performed By: #### L 500.2500, L100.0100, L501.4020, L500.3400 ####[facility] [address] [place], [address] RDW SD 40.0 fl Normal 35.1-43.9 [facility] Comment on above: Performed By: #### L 500.2500, L100.0100, L501.4020, L500.3400 ####[facility] [address] [place], [address] WBC (Bld) [#/Vol] 5.2 10*3/uL Normal 4.4-11.0 [facility] Comment on above: Performed By: #### L 500.2500, L100.0100, L501.4020, L500.3400 ####[facility] [address] [place], [address] Carbon dioxide measurementOr dered By: Julien Holder on 04-18-2024 CO2 [Moles/Vol] 27.0 mmol/L 21.0-32.0 [facility] Chest 1 View (Portable)on Chest 1 View (Portable) [facility] Imaging Services [address] [place] [address] Chest 1 View (Portable) MR#: [id number] Acct: [id number] Name: KELLI MONROY Amira Rep #: [id number] : 1950 F 74 From: Zachary pope MD PCP: Dr. Angel Fuller MD Status: REG ER Study: Chest 1 View (Portable) Date of Exam: 04/18/24 Exam# [id number] Ordering Dr: Julien Holder DO PROCEDURE: CHEST 1 VIEW (PORTABLE) REASON FOR EXAM: Weakness. History of influenza. TECHNIQUE: Frontal view of the chest. COMPARISON: Comparison is made with prior study dated July 23, 2023. FINDINGS: The heart size is normal. Hyperinflation. Scattered calcified granulomas. Stable mild scarring at the lung bases. Atherosclerotic calcification of the aortic arch. RAD/Chest 1 View (Portable) IMPRESSION: Hyperinflation. COPD. Stable mild scarring at the lung bases. Reading Location: [facility] CC: Dr. Julien Holder DO; Dr. 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 Angel Fuller MD Status:DEP ER Location: ED HPI History of Present Illness Chief Complaint: General Illness Narrative Narrative: 74-year-old female presenting to the emergency room for her third visit in 6 days. Patient was seen on 12 April after being diagnosed with influenza B at an urgent care. While there she had a brief syncopal episode. Evaluation in the emergency department showed a sodium of [address] of the brain and cervical spine patient returned 4 days later with back pain and underwent CT imaging of the thoracic and lumbar spine. She states that none of her doctors can see her because she still has influenza B and does not feel well. She is states that she has been trying to hydrate. She states that today her doctor ordered her sacrococcygeal x-rays which she had performed. She does not feel that she is able to care for herself at home. She is worried that she made have her heart stop while at home. She does not understand why she has not been admitted for influenza B (she does not have pneumonia hypoxia or significant GAURAV/dehydration). She feels near syncopal with walking (was able to walk to the bathroom without difficulty here in the emergency department). She notes a burning pain in her arms shoulders. She does not understand why the emergency department did not do further workup for her such as MRI despite not having acute neurologic deficits and negative CTs. [facility] Medical History Episode of syncope Influenza B Acute pharyngitis Burn of right upper extremity Atherosclerosis of coronary artery of [place] heart without angina pectoris Fibromyalgia Menopausal hot flushes Symptoms of gastroesophageal reflux Hypertension Hyperparathyroidism Paresthesia Skin cancer GERD (gastroesophageal reflux disease) Osteopenia Osteoarthritis Heart murmur Hormone deficiency High cholesterol Headache Gastrointestinal problem Cataracts, bilateral Breast cancer Breast lump UTI (urinary tract infection) Back problem Arthritis Hx of breast cancer Home Medications ???Medication ???Instructions ???Recorded ???Last Taken ???Type acetaminophen 500 mg tablet 1,000 mg PO BID PRN Pain 06/10/23 Unknown History (Tylenol Extra Strength) pantoprazole 40 mg tablet,delayed 40 mg PO DAILY 11/20/23 Unknown H istory release zoledronic acid 5 mg/100 mL in 1 ea .Route ONCE #100 mL 02/22/24 Unknown Rx mannitol 5 %-water intravenous piggybck vitamin D3 500 unit-vit K 500 1 tab PO QDAY 04/04/24 Unknown His tory mcg-berberine 90 mg-hops 370 mg tablet cholecalciferol (vitamin D3) 1,250 1,250 mcg PO QWEEK #4 caps 04/05 Unknown Rx mcg (50,000 unit) capsule cyanocobalamin (vitamin B-12) 100 mcg subcut QMONTH 04/05/24 Unk nown History 1,000 mcg/mL injection solution gabapentin 100 mg capsule 100 mg PO BID #60 caps 04/06/24 Un known Rx Allergy/AdvReac Type Severity Reaction Status Date / Time duloxetine (From Cymbalta) AdvReac Mild dizziness Verified 04/18/24 12:17 Family History Father Heart disease Mother Heart disease Osteoporosis Thyroid disorder Brother Heart disease Hypertension Hypercholesterolemia Daughter Cancer Sister Arthritis Hypertension Hypercholesterolemia Osteoporosis Thyroid disorder Surgical History History of left heart catheterization (08/16/20) History of endoscopy History of colonoscopy History of lumpectomy Hx of cataract surgery H/O: hysterectomy Social History Smoking Status: Never smoker alcohol intake: never substance use type: does not use what type of physical activity do you participate in: walking and weight training frequency: 1-2 times per week ROS ROS ED ROS Narrative Generalized weakness near syncope Constitutional Constitutional ED: Denies chills or weight loss Eyes Eyes: Denies change in vision or diplopia ENT ENT ED: Denies ear pain, rhinorrhea or sore throat Cardiovascular Cardiovascular: Denies chest pain, orthopnea, palpitations or racing heartbeat Respiratory/Chest Respiratory/Chest: Reports cough; Denies dyspnea or orthopnea Gastrointestinal Gastrointestinal: Denies abdominal pain, diarrhea, nausea or vomiting Genitourinary Genitourinary ED: Denies dysuria, hematuria or urinary frequency Musculoskeletal Musculoskeletal: Reports back pain, neck pain and other Details (more content not included)... Normal [facility] Eosinophil percentageOrdered By: Julien Holder on 04-18-2024 Eosinophils/100 WBC (Bld) 0.4 % 0-5 [facility] Epithelial cells.squamous LM Ql (Urine sed)Ordered By: Julien Holder on 04-18-2024 Epithelial cells.squamous LM.HPF (Urine sed) [#/Area] 0 /[HPF] 5-10 [facility] Erythrocyte distribution wid th ratioOrdered By: Julien Holder on 04-18-2024 Erythrocyte distribution width (RBC) [Ratio] 11.8 % 11.6-14.6 [facility] Erythrocyte distribution wid th standard deviationOrdered By: Julien Holder on 04-18-2024 Erythrocyte distribution width (RBC) [Entitic vol] 40.0 fL 35.1-43.9 [facility] Erythrocyte distribution width (RBC) [Ratio] 40.0 fl 35.1-43.9 [facility] Estimated glomerular filtrat ion rate (GFR) AmericanOrdered By: Julien Holder on 04-18-2024 Estimated GFR (MDRD) Amer 137 mL/min >60 [facility] Comment on above: GFR Calc Estimation of creatinine valarie aranceOrdered By: Julien Holder on 04-18-2024 Estimated Creatinine Clearance Calc 57.03 ml/min [facility] Glomerular filtration rate ( GFR) estimationOrdered By: Julien Holder on 04-18-2024 Estimated GFR (MDRD) Non-Af Amer 113 mL/min >60 [facility] Comment on above: Non- GFR Calc GFR/1.73 sq M.predicted among non-blacks MDRD (S/P/Bld) [Vol rate/Area] 113 mL/min/{1.73_m2} >60 [facility] Comment on above: Non- GFR Calc Glucose Ql (U)Ordered By: Juan Holder on 04-18-2024 Urine Glucose (UA) Normal mg/dl Normal [facility] Glucose measurementOrdered B y: Julien Holder on 04-18-2024 Glucose [Mass/Vol] 96 mg/dL 74-106 [facility] Hematocrit Auto (Bld) [Volum e fraction]Ordered By: Julien Holder on 04-18-2024 Hematocrit (Bld) [Volume fraction] 39.7 % 37-47 [facility] Hemoglobin measurementOrdere d By: Julien Holder on 04-18-2024 Hemoglobin (Bld) [Mass/Vol] 13.5 g/dL 12.0-15.0 [facility] Immature granulocytes/100 WB C Auto (Bld)Ordered By: Julien Holder on 04-18-2024 Immature granulocytes/100 WBC (Bld) 0.400 % 0.0-0.9 [facility] Comment on above: IG% - Immature Granu locytes (promyelocytes, myelocytes and metamyelocytes) > 1% indicates that a LEFT SHIFT is Present. Ketones Test strip Ql (U)Ord ered By: Julien Vicentene on 04-18-2024 Ketones Ql (U) Negative Negative [facility] L501.4020on 04-18-2024 TROPONIN-I HS 4 pg/mL Normal 3.0-54.0 [facility] Comment on above: Order Comment: 'TROP ' Serial specimen #1, #2 or #3: 1 Result Comment: Amee bustos Note: New Test Units and Gender Specific Reference Ranges. For more information see Policy Stat Procedure [facility] [facility] High Sensitivity Troponin (TNIH) and attachments. Performed By: #### L 500.2500, L100.0100, L501.4020, L500.3400 ####[facility] [address] [place], [address] Laboratory - Chemistry and C hemistry - challengeOrdered By: Julien Gallo on 04-18-2024 AST [Catalytic activity/Vol] 36 U/L 15-37 [facility] Liver Profileon 04-18-2024 Albumin [Mass/Vol] 3.8 g/dL Normal 3.2-5.0 [facility] Comment on above: Order Comment: 'TROP ' Serial specimen #1, #2 or #3: 1 Performed By: #### L 500.2500, L100.0100, L501.4020, L500.3400 ####[facility] [address] [place], [address] ALK P 73 U/L Normal 45-117 [facility] Comment on above: Order Comment: 'TROP ' Serial specimen #1, #2 or #3: 1 Performed By: #### L 500.2500, L100.0100, L501.4020, L500.3400 ####[facility] [address] [place], [address] ALT [Catalytic activity/Vol] 36 U/L Normal 13-56 [facility] Comment on above: Order Comment: 'TROP ' Serial specimen #1, #2 or #3: 1 Performed By: #### L 500.2500, L100.0100, L501.4020, L500.3400 ####[facility] [address] [place], [address] AST [Catalytic activity/Vol] 36 U/L Normal 15-37 [facility] Comment on above: Order Comment: 'TROP ' Serial specimen #1, #2 or #3: 1 Performed By: #### L 500.2500, L100.0100, L501.4020, L500.3400 ####[facility] [address] [place], [address] Bilirubin [Mass/Vol] 0.50 mg/dL Normal 0.20-1.00 [facility] Comment on above: Order Comment: 'TROP ' Serial specimen #1, #2 or #3: 1 Result Comment: For patients on eltrombopag therapy, use of Dimension [place] TBIL is not recommended. Performed By: #### L 500.2500, L100.0100, L501.4020, L500.3400 ####[facility] [address] [place], [address] Bilirubin.direct [Mass/Vol] 0.14 mg/dL Normal 0.00-0.30 [facility] Comment on above: Order Comment: 'TROP ' Serial specimen #1, #2 or #3: 1 Performed By: #### L 500.2500, L100.0100, L501.4020, L500.3400 ####[facility] [address] [place], [address] Globulin (S) [Mass/Vol] 4.0 g/dL Normal 2.2-4.2 [facility] Comment on above: Order Comment: 'TROP ' Serial specimen #1, #2 or #3: 1 Performed By: #### L 500.2500, L100.0100, L501.4020, L500.3400 ####[facility] [address] [place], [address] T PROT 7.8 g/dL Normal 6.4-8.2 [facility] Comment on above: Order Comment: 'TROP ' Serial specimen #1, #2 or #3: 1 Performed By: #### L 500.2500, L100.0100, L501.4020, L500.3400 ####[facility] [address] [place], [address] Lymphocytes Auto (Unsp spec) [#/Vol]Ordered By: Julien Holder on 04-18-2024 Lymphocytes (Bld) [#/Vol] 0.59 10*3/uL Low 0.83-4.51 [facility] Lymphocytes/100 WBC Auto (Un sp spec)Ordered By: Julien Holder on 04-18-2024 Lymphocytes/100 WBC (Bld) 11.4 % Low 19-41 [facility] MCV (mean corpuscular volume ) determinationOrdered By: Julien Holder on 04-18-2024 MCV (RBC) [Entitic vol] 92.8 fL 81-99 [facility] Mean corpuscular hemoglobin (MCH) determinationOrdered By: Julien Holder on 04-18-2024 MCH (RBC) [Entitic mass] 31.5 pg 27.0-32.0 [facility] Mean corpuscular hemoglobin concentration (MCHC) determinationOrdered By: Julien Holder on 04-18-2024 MCHC (RBC) [Mass/Vol] 34.0 g/dL 32-36 [facility] Mean platelet volume determi nationOrdered By: Julien Holder on 04-18-2024 Platelet mean volume (Bld) [Entitic vol] 8.8 fL 6.2-12.0 [facility] Microscopic analysis of urin e for red blood cells (RBC)Ordered By: Julien Holder on 04-18-2024 Microscopic analysis of urine for red blood cells (RBC) 0 SEEN /hpf 0-5 [facility] Urine RBC 0 SEEN /hpf 0-5 [facility] Monocyte percentageOrdered B y: Julien Holder on 04-18-2024 Monocytes/100 WBC (Bld) 12.4 % High 0-10 [facility] Mucus LM Ql (Urine sed)Order ed By: Julien Holder on 04-18-2024 Mucus Ql (Urine sed) 0 SEEN /hpf [facility] Neutrophil percentageOrdered By: Julien Holder on 04-18-2024 Neutrophils/100 WBC (Bld) 75.0 % High 47-70 [facility] Nitrite Test strip Ql (U)Ord ered By: Julien Holder on 04-18-2024 Nitrite Ql (U) Negative Negative [facility] Nucleated red blood cell per centageOrdered By: Julien Holder on 04-18-2024 Nucleated RBC/100 WBC (Bld) [Ratio] 0 % 0-5 [facility] Platelet countOrdered By: Juan Holder on 04-18-2024 Platelets (Bld) [#/Vol] 249 10*3/uL 150-450 [facility] Potassium measurementOrdered By: Julien Holder on 04-18-2024 Potassium [Moles/Vol] 3.8 mmol/L 3.5-5.1 [facility] Protein Test strip Ql (U)Ord ered By: Julien Holder on 04-18-2024 Protein Ql (U) Negative Negative [facility] RBC Auto (Bld) [#/Vol]Ordere d By: Julien Holder on 04-18-2024 RBC (Bld) [#/Vol] 4.28 10*6/uL 4.2-5.4 [facility] Sacrum-Coccyx min 2 Viewson 04-18-2024 Sacrum-Coccyx min 2 Views [facility] Imaging Services [address] [place] [address] Sacrum-Coccyx min 2 Views MR#: [id number] Acct: [id number] Name: KELLI MONROY Rep #: [id number] : 1950 F 74 From: Hilario Sultana MD PCP: Dr. Angel Fuller MD Status: REG CLI Study: Sacrum-Coccyx min 2 Views Date of Exam: Exam# [id number] Ordering Dr: SHAHLA KEATING EXAM: XR Sacrum and Coccyx, 2 or more Views CLINICAL INDICATION: TECHNIQUE: Frontal and lateral views of the sacrum and coccyx. COMPARISON: No relevant prior studies available. FINDINGS: SACRUM/COCCYX: Degenerative changes of the sacroiliac joints, bilaterally. No acute fracture. VERTEBRAE: No acute fracture. DISC SPACES: Qhxh-cs-jhfdhelv degenerative changes of the pubic symphysis. SOFT TISSUES: Unremarkable. GASTROINTESTINAL TRACT: Fecal retention in the colon consistent with constipation. RAD/Sacrum-Coccyx min 2 Views IMPRESSION: 1. No acute fracture. 2. Fecal retention in the colon consistent with constipation. 3. Degenerative changes as above. Reading [facility] CC: Dr. 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 Assembler: Signed Normal [facility] Serum anion gap measurementO rdered By: Julien Holder on 04-18-2024 Anion gap [Moles/Vol] 7 mmol/L 5-15 [facility] Serum globulin measurementOr dered By: Julien Holder on 04-18-2024 Globulin (S) [Mass/Vol] 4.0 g/dL 2.2-4.2 [facility] Serum or plasma alanine carballo otransferase (ALT) measurementOrdered By: Julien Holder on 04-18-2024 ALT [Catalytic activity/Vol] 36 U/L 13-56 [facility] Serum or plasma albumin anjel urement (mass/volume)Ordered By: Julien Holder on 04-18-2024 Albumin [Mass/Vol] 3.8 g/dL 3.2-5.0 [facility] Serum or plasma alkaline coretta sphatase measurementOrdered By: Julien Holder on 04-18-2024 ALP [Catalytic activity/Vol] 73 U/L 45-117 [facility] Serum or plasma calcium anjel urement (mass/volume)Ordered By: Julien Holder on 04-18-2024 Calcium [Mass/Vol] 8.9 mg/dL 8.5-10.1 [facility] Serum or plasma creatinine m easurement (mass/volume)Ordered By: Julien Holder on 04-18-2024 Creatinine [Mass/Vol] 0.56 mg/dL 0.55-1.02 [facility] Comment on above: The validity of the calculated GFR & GFRAA in patients over 70 years has not been determined. Clinical correlation is essential. Serum or plasma urea nitroge n measurement (mass/volume)Ordered By: Julien Holder on 04-18-2024 Urea nitrogen [Mass/Vol] 5 mg/dL Low 7-18 [facility] Sodium levelOrdered By: Neil Holder on 04-18-2024 Sodium [Moles/Vol] 130 mmol/L Low 136-145 [facility] Squamous epithelial cells de tection in urine sediment by light microscopyOrdered By: Julien Holder on 04-18-2024 Epithelial cells.squamous LM Ql (Urine sed) 0 SEEN /hpf 5-10 [facility] Total proteinOrdered By: Griffin Holder on 04-18-2024 Protein [Mass/Vol] 7.8 g/dL 6.4-8.2 [facility] Troponin IOrdered By: Julien Holder on 04-18-2024 Troponin I 4 pg/mL 3.0-54.0 [facility] Comment on above: Please Note: New Stephanie t Units and Gender Specific Reference Ranges. For more information see Policy Stat Procedure [facility] High Sensitivity Troponin (TNIH) and attachments. Troponin I High Sensitivity 4 pg/mL 3.0-54.0 [facility] Comment on above: Please Note: New Stephanie t Units and Gender Specific Reference Ranges. For more information see Policy Stat Procedure [facility] High Sensitivity Troponin (TNIH) and attachments. Urinalysis, Completeon 04-18 RBC 0 SEEN Normal 0-5 [facility] Comment on above: Order Comment: CLEAN CATCH Performed By: #### L 400.0001 #### [facility] Laboratory [address] [place] [address]. [place], [address] Urine blood detectionOrdered By: Julien Holder on 04-18-2024 Urine Occult Blood Negative Negative [facility] Urine clarityOrdered By: Griffin Holder on 04-18-2024 Clarity (U) Clear Clear [facility] Urine color determinationOrd ered By: Julien Holder on 04-18-2024 Color (U) Straw Yellow [facility] Urine glucose detectionOrder ed By: Julien Holder on 04-18-2024 Glucose Ql (U) Normal mg/dl Normal [facility] Urine leukocyte esterase det ection by dipstickOrdered By: Julien Holder on 04-18-2024 Leukocyte esterase Test strip Ql (U) Negative Negative [facility] Urine pHOrdered By: Julien marie on 04-18-2024 pH (U) 7.0 [pH] 5.0 - 8.0 [facility] Urine sediment bacteria coun t by microscopy (number/high power field)Ordered By: Julien Holder on 04-18-2024 Bacteria LM.HPF (Urine sed) [#/Area] RARE /hpf None Seen [facility] Urine specific gravity measu rementOrdered By: Julien Holder on 04-18-2024 Specific gravity (U) [Rel density] 1.005 1.002-1.030 [facility] Urine urobilinogen measureme ntOrdered By: Julien Holder on 04-18-2024 Urobilinogen Ql (U) Normal mg/dl Normal [facility] Urobilinogen Ql (U)Ordered B y: Julien Holder on 04-18-2024 Urine Urobilinogen Normal mg/dl Normal [facility] White blood cell (WBC) count Ordered By: Julien Holder on 04-18-2024 WBC (Bld) [#/Vol] 5.2 10*3/uL 4.4-11.0 [facility] White blood cell countOrdere d By: Julien Holder on 04-18-2024 Urine WBC 0 SEEN /hpf 0-5 [facility] White blood cell count 0 SEEN /hpf 0-5 [facility] Emergency Department Summary on 04-16-2024 Emergency Department Summary [facility] Medical Records Department [address] [place] [address] Emergency Department Summary 04/16/24 MR#: [id number] Acct: [id number] Name: KELLI MONROY Rep #: [id number] : 1950 74 From: Easton Hanson DO PCP: Dr. Angel Nam, MD Status:DEP ER Location: ED HPI History of Present Illness Chief Complaint: Back PFSH PFS Medical History (Updated 04/12/24 @ 18:[address] Easton Hanson, DO) Episode of syncope Influenza B Acute pharyngitis Burn of right upper extremity Atherosclerosis of coronary artery of [place] heart without angina pectoris Fibromyalgia Menopausal hot flushes Symptoms of gastroesophageal reflux Hypertension Hyperparathyroidism Paresthesia Skin cancer GERD (gastroesophageal reflux disease) Osteopenia Osteoarthritis Heart murmur Hormone deficiency High cholesterol Headache Gastrointestinal problem Cataracts, bilateral Breast cancer Breast lump UTI (urinary tract infection) Back problem Arthritis Hx of breast cancer Home Medications ???Medication ???Instructions ???Recorded ???Last Taken ???Type acetaminophen 500 mg tablet 1,000 mg PO BID PRN Pain 06/10/23 Unknown History (Tylenol Extra Strength) pantoprazole 40 mg tablet,delayed 40 mg PO DAILY 11/20/23 Unknown H istory release zoledronic acid 5 mg/100 mL in 1 ea .Route ONCE #100 mL 02/22/24 Unknown Rx mannitol 5 %-water intravenous piggybck vitamin D3 500 unit-vit K 500 1 tab PO QDAY 04/04/24 Unknown His tory mcg-berberine 90 mg-hops 370 mg tablet cholecalciferol (vitamin D3) 1,250 1,250 mcg PO QWEEK #4 caps 04/05 Unknown Rx mcg (50,000 unit) capsule cyanocobalamin (vitamin B-12) 100 mcg subcut QMONTH 04/05/24 Unk nown History 1,000 mcg/mL injection solution gabapentin 100 mg capsule 100 mg PO BID #60 caps 04/06/24 Un known Rx Allergy/AdvReac Type Severity Reaction Status Date / Time duloxetine (From Cymbalta) AdvReac Mild dizziness Verified 04/16/24 17:05 Family History Father Heart disease Mother Heart disease Osteoporosis Thyroid disorder Brother Heart disease Hypertension Hypercholesterolemia Daughter Cancer Sister Arthritis Hypertension Hypercholesterolemia Osteoporosis Thyroid disorder Surgical History History of left heart catheterization (08/16/20) History of endoscopy History of colonoscopy History of lumpectomy Hx of cataract surgery H/O: hysterectomy Social History (Reviewed 01/28/25 @ 14:25 by Ngoc Mitchell Smoking Status: Never smoker alcohol intake: never substance use type: does not use what type of physical activity do you participate in: walking and weight training frequency: 1-2 times per week EXAM Physical Exam Const Vital Signs: 04/16/24 17:05 Temperature 97.8 F Temperature Source Temporal Pulse Rate 73 Respiratory Rate 17 Blood Pressure 172/90 H Blood Pressure Mean 117 Pulse Ox 98 Oxygen Delivery Method Room Air MDM [facility] MDM Narrative Medical decision making narrative: HISTORY OF PRESENT ILLNESS: 74-year-old female presents with back pain after a fall 5 days ago. Patient denies any saddle anesthesia, urinary retention, bowel or bladder incontinence, lower extremity weakness, fever or IV drug use, no recent spinal manipulation or surgery, no recent urinary catheterization. REVIEW OF SYSTEMS: Pertinent positives: Back pain Pertinent negatives: Fever, loss of movement or sensation PHYSICAL EXAM: Nursing triage notes reviewed, Vital signs reviewed Constitutional: please see mdm Lungs: Clear to auscultation, No wheezing or rales. No increased work of breathing, no conversational dyspnea, no accessory muscle use, no nasal flaring. No respiratory distress noted Heart: Regular rate and rhythm, No murmurs, No rubs and No gallops, 2+ distal pulses (radial, femoral, posterior tibial) in all extremities Abdomen: Soft, there is no tenderness, rigidity, rebound or guarding, no obvious peritoneal signs, no palpable pulsatile abdominal masses, no auscultated abdominal bruit : No CVAT Extremities: No edema, intact range of motion in hip flexion extension, knee flexion extension and ankle plantarflexion dorsiflexion. Compartments are soft Back: No midline step-offs or deformities Neuro: Intact sensation L1-S1 dermatomal distributions. Intact 5/5 strength in hip flexion (T12- L3). Knee extension (L2-L4). Ankle dorsiflexion (L4-L5). Ankle plantar flexion (S1). Great toe extension (L5). 2+ patellar and Achilles DTRs. Skin: Ecchymosis noted to the left paraspinal muscles. MEDICAL DECISION MAKING: Chief Complaint: Back pain External records reviewed: Reviewed prior ED visit imaging studies (more content not included)... Normal [facility] Spine Lumbar without Contras ton 04-16-2024 Spine Lumbar without Contrast [facility] Imaging Services [address] [place] [address] Spine Lumbar without Contrast MR#: [id number] Acct: [id number] Name: KELLI MONROY Rep #: [id number] : 1950 From: James Hoffman PCP: Dr. Angel Fuller MD Status: REG ER Study: Spine Lumbar without Contrast Date of Exam: Exam# [id number] Ordering Dr: Easton Hanson DO PROCEDURE: CT lumbar spine without IV contrast REASON FOR EXAM: Pain, trauma. TECHNIQUE: Multiple contiguous axial images through the lumbar spine were obtained without the administration of intravenous contrast. Two-dimensional coronal and sagittal reformatted images were reconstructed. Low-dose imaging technique was utilized. COMPARISON: None. FINDINGS: No acute osseous abnormality. Moderate degenerative changes of the lower lumbar spine including degenerative disc disease and facet arthropathy. Suspected mild spinal stenosis at L2-3 and L4-5 due to posterior disc bulges. No high-grade foraminal narrowing within limits of CT. Sacroiliac joints are intact. No paraspinal mass. Distal colonic diverticulosis. CT/Spine Lumbar without Contrast IMPRESSION: No acute osseous abnormality. One or more dose reduction techniques were used (e.g., Automated exposure control, adjustment of the mA and/or kV according to patient size, use of iterative reconstruction technique). Reading Location: [facility] CC: Dr. Angel Fuller MD; Dr. Easton Hansno DO Foot Piece Assembler: Signed Normal [facility] Spine Thoracic without Contr ason 04-16-2024 Spine Thoracic without Contras [facility] Imaging Services [address] [place], [place] [address] Spine Thoracic without Contras MR#: [id number] Acct: [id number] Name: KELLI MONROY Rep #: [id number] : 1950 From: James Hoffman PCP: Dr. Angel Fuller MD Status: REG ER Study: Spine Thoracic without Contras Date of Exam: 0 04/16/24 Exam# [id number] Ordering Dr: Valentin,Easton DO PROCEDURE: CT thoracic spine without IV contrast REASON FOR EXAM: Pain, trauma TECHNIQUE: Multiple contiguous axial images through the thoracic spine were obtained without the administration of intravenous contrast. Two-dimensional coronal and sagittal reformatted images were reconstructed. Low-dose imaging technique was utilized. COMPARISON: None. FINDINGS: See impression CT/Spine Thoracic without Contras IMPRESSION: No acute osseous abnormality. Minimal dextroscoliosis. Mild multilevel degenerative changes of the midthoracic spine. 4 mm nodule in the right lower lobe. Moderate LAD coronary artery calcifications. No paraspinal mass. One or more dose reduction techniques were used (e.g., Automated exposure control, adjustment of the mA and/or kV according to patient size, use of iterative reconstruction technique). Reading Location: [facility] CC: Dr. Angel Fuller MD; Dr. Easton Hanson DO Foot Piece Assembler: Signed Normal [facility] Albumin to globulin ratioOrd ered By: Easton Hanson on 04-12-2024 Albumin/Globulin [Mass ratio] 1.0 {ratio} 0.9-2.4 [facility] Bilirubin, totalOrdered By: Easton Hanson on 04-12-2024 Bilirubin [Mass/Vol] 0.30 mg/dL 0.20-1.00 [facility] Comment on above: For patients on eltr ombopag therapy, use of Dimension [place] TBIL is not recommended. Blood urea nitrogen (BUN)/cr eatinine ratioOrdered By: Easton Hanson on 04-12-2024 Urea nitrogen/Creatinine [Mass ratio] 12.3 mg/mg 10-20 [facility] Brain/Head without Contrasto n 04-12-2024 Brain/Head without Contrast [facility] Imaging Services [address] [place] [address] Brain/Head without Contrast MR#: [id number] Acct: [id number] Name: KELLI MONROY Rep #: [id number] : 1950 F 74 From: Robert Ramsey MD PCP: Dr. Angel Fuller MD Status: REG ER Study: Brain/Head without Contrast Date of Exam: 03/26 10/17 Exam# [id number] Ordering Dr: Easton Hanson DO EXAM: BRAIN/HEAD WITHOUT CONTRAST CLINICAL HISTORY: Fall, head injury COMPARISON: None. TECHNIQUE: Noncontrast images of the head with multiplanar reconstructions. Dose reduction techniques were used including intermediate exposure control (AEC),iterative reconstruction technique, and/or mA and/or KV dose adjustments based on patient's size. FINDINGS: CT HEAD FINDINGS: No acute intracranial hemorrhage, mass, mass effect, midline shift or pathologic extra-axial fluid collection. Nonspecific periventricular white matter changes are noted. Mild prominence of the ventricles, cisterns and sulci. Visualized paranasal sinuses and mastoid air cells are clear. The calvarium is grossly intact. CT/Brain/Head without Contrast IMPRESSION: 1. No CT evidence of acute intracranial pathology. 2. Age-appropriate volume loss and remote small vessel ischemic changes Reading Location: [facility] CC: Dr. Angel Fuller MD; Dr. Easton Hanson DO Foot Piece Assembler: Signed Normal [facility] CBC-Complete Blood Cnt No Di ffon 04-12-2024 Erythrocyte distribution width (RBC) [Ratio] 11.9 % Normal 11.6-14.6 [facility] Comment on above: Performed By: #### L 500.4050, L100.0500, L501.5425 ####[facility] [address] [place], [address] Hematocrit (Bld) [Volume fraction] 37.2 % Normal 37-47 [facility] Comment on above: Performed By: #### L 500.4050, L100.0500, L501.5425 ####[facility] [address] [place], [address] Hemoglobin (Bld) [Mass/Vol] 12.6 g/dL Normal 12.0-15.0 [facility] Comment on above: Performed By: #### L 500.4050, L100.0500, L501.5425 ####[facility] [address] [place], [address] MCH (RBC) [Entitic mass] 31.7 pg Normal 27.0-32.0 [facility] Comment on above: Performed By: #### L 500.4050, L100.0500, L501.5425 ####[facility] [address] [place], [address] MCHC (RBC) [Mass/Vol] 33.9 g/dL Normal 32-36 [facility] Comment on above: Performed By: #### L 500.4050, L100.0500, L501.5425 ####[facility] [address] [place], [address] MCV (RBC) [Entitic vol] 93.5 fL Normal 81-99 [facility] Comment on above: Performed By: #### L 500.4050, L100.0500, L501.5425 ####[facility] [address] [place], [address] Platelet mean volume (Bld) [Entitic vol] 8.9 fL Normal 6.2-12.0 [facility] Comment on above: Performed By: #### L 500.4050, L100.0500, L501.5425 ####[facility] [address] [place], [address] Platelets (Bld) [#/Vol] 222 10*3/uL Normal 150-450 [facility] Comment on above: Performed By: #### L 500.4050, L100.0500, L501.5425 ####[facility] [address] [place], [address] RBC (Bld) [#/Vol] 3.98 10*6/uL Low 4.2-5.4 [facility] Comment on above: Performed By: #### L 500.4050, L100.0500, L501.5425 ####[facility] [address] [place], [address] RDW SD 41.4 fl Normal 35.1-43.9 [facility] Comment on above: Performed By: #### L 500.4050, L100.0500, L501.5425 ####[facility] [address] [place], [address] WBC (Bld) [#/Vol] 5.5 10*3/uL Normal 4.4-11.0 [facility] Comment on above: Performed By: #### L 500.4050, L100.0500, L501.5425 ####[facility] [address] [facility] [place], [address] Carbon dioxide measurementOr dered By: Easton Hanson on 04-12-2024 CO2 [Moles/Vol] 26.0 mmol/L 21.0-32.0 [facility] Chest 1 View (Portable)on Chest 1 View (Portable) [facility] Imaging Services [address] [place] [address] Chest 1 View (Portable) MR#: [id number] Acct: [id number] Name: KELLI MONROY Rep #: [id number] : 1950 F 74 From: Robert Ramsey MD PCP: Dr. Angel Fuller MD Status: [facility] ER Study: Chest 1 View (Portable) Date of Exam: 04/12/24 Exam# [id number] Ordering Dr: Easton Hanson DO PROCEDURE: CHEST 1 VIEW (PORTABLE) REASON FOR EXAM: Weakness, rule out pneumonia TECHNIQUE: Frontal view of the chest COMPARISON: 07/23/2023 FINDINGS: Heart size is mildly enlarged. There are atherosclerotic calcifications of the thoracic aorta. There are chronic-appearing changes of both lungs. Hyperinflated lungs. The bones are unremarkable. RAD/Chest 1 View (Portable) IMPRESSION: Cardiomegaly with chronic interstitial and COPD changes in the lungs. No definite acute infiltrate. Reading [facility] CC: Dr. Angel Fuller MD; Dr. Easton Hanson DO Foot Piece Assembler: Signed Normal [facility] Chloride measurementOrdered By: Easton Hanson on 04-12-2024 Chloride [Moles/Vol] 95 mmol/L Low 98-107 [facility] Comprehensive Metabolic Prof ilon 04-12-2024 Albumin [Mass/Vol] 3.6 g/dL Normal 3.2-5.0 [facility] Comment on above: Performed By: #### L 500.4050, L100.0500, L501.5425 ####[facility] [address] [place], [address] Albumin/Globulin [Mass ratio] 1.0 {ratio} Normal 0.9-2.4 [facility] Comment on above: Performed By: #### L 500.4050, L100.0500, L501.5425 ####[facility] [address] [place], [address] ALK P 70 U/L Normal 45-117 [facility] Comment on above: Performed By: #### L 500.4050, L100.0500, L501.5425 ####[facility] [address] [place], [address] ALT [Catalytic activity/Vol] 23 U/L Normal 13-56 [facility] Comment on above: Performed By: #### L 500.4050, L100.0500, L501.5425 ####[facility] [address] [place], [address] AST [Catalytic activity/Vol] 26 U/L Normal 15-37 [facility] Comment on above: Performed By: #### L 500.4050, L100.0500, L501.5425 ####[facility] [address] [place], [address] Bilirubin [Mass/Vol] 0.30 mg/dL Normal 0.20-1.00 [facility] Comment on above: Result Comment: For patients on eltrombopag therapy, use of Dimension [place] TBIL is not recommended. Performed By: #### L 500.4050, L100.0500, L501.5425 ####[facility] [address] [place], [address] BUN/CRE 12.3 RATIO Normal 10-20 [facility] Comment on above: Performed By: #### L 500.4050, L100.0500, L501.5425 ####[facility] [address] [place], [address] CA,Total 9.0 mg/dL Normal 8.5-10.1 [facility] Comment on above: Performed By: #### L 500.4050, L100.0500, L501.5425 ####[facility] [address] [place], [address] Chloride [Moles/Vol] 95 mmol/L Low 98-107 [facility] Comment on above: Performed By: #### L 500.4050, L100.0500, L501.5425 ####[facility] [address] [place], [address] CO2 [Moles/Vol] 26.0 mmol/L Normal 21.0-32.0 [facility] Comment on above: Performed By: #### L 500.4050, L100.0500, L501.5425 ####[facility] [address] [place], [address] Creatinine [Mass/Vol] 0.65 mg/dL Normal 0.55-1.02 [facility] Comment on above: Result Comment: The validity of the calculated GFR GFRAA in patients over 70 years has not been determined. Clinical correlation is essential. Performed By: #### L 500.4050, L100.0500, L501.5425 ####[facility] [address] [place], [address] ECRCL 57.44 ml/min Normal [facility] Comment on above: Performed By: #### L 500.4050, L100.0500, L501.5425 ####[facility] [address] [place], [address] EST GFR - AA 114 mL/min Normal >60 [facility] Comment on above: Result Comment: Afri can [place] GFR Calc Performed By: #### L 500.4050, L100.0500, L501.5425 ####[facility] [address] [place], [address] GAP 8 Normal 5-15 [facility] Comment on above: Performed By: #### L 500.4050, L100.0500, L501.5425 ####[facility] [address] [place], [address] GFR/1.73 sq M.predicted among non-blacks MDRD (S/P/Bld) [Vol rate/Area] 95 mL/min/{1.73_m2} Normal >60 [facility] Comment on above: Result Comment: Non- GFR Calc Performed By: #### L 500.4050, L100.0500, L501.5425 ####[facility] [address] [place], [address] Globulin (S) [Mass/Vol] 3.6 g/dL Normal 2.2-4.2 [facility] Comment on above: Performed By: #### L 500.4050, L100.0500, L501.5425 ####[facility] [address] [place], [address] Glucose [Mass/Vol] 108 mg/dL High 74-106 [facility] Comment on above: Result Comment: Fast ing Glucose result from 100 to 125 mg/dL suggests IMPAIRED HOMEOSTASIS per A.D.A. criteria. Performed By: #### L 500.4050, L100.0500, L501.5425 ####[facility] [address] [place], [address] Potassium [Moles/Vol] 3.8 mmol/L Normal 3.5-5.1 [facility] Comment on above: Performed By: #### L 500.4050, L100.0500, L501.5425 ####[facility] [address] [place], [address] Sodium [Moles/Vol] 130 mmol/L Low 136-145 [facility] Comment on above: Performed By: #### L 500.4050, L100.0500, L501.5425 ####[facility] [address] [place], [address] T PROT 7.2 g/dL Normal 6.4-8.2 [facility] Comment on above: Performed By: #### L 500.4050, L100.0500, L501.5425 ####[facility] [address] [place], [address] Urea nitrogen [Mass/Vol] 8 mg/dL Normal 7-18 [facility] Comment on above: Performed By: #### L 500.4050, L100.0500, L501.5425 ####[facility] [address] [place], [address] Emergency Department Summary on 04-12-2024 Emergency Department Summary [facility] Medical Records Department [address] [place] [address] Emergency Department Summary 04/12/24 MR#: [id number] Acct: [id number] Name: KELLI MONROY Rep #: [id number] : 1950 74 From: Easton Hanson DO PCP: Dr. Angel Fuller MD Status:DEP ER Location: ED HPI History of Present Illness Chief Complaint: Syncope [facility] Medical History (Updated 04/12/24 @ 18:[address] Easton Hanson, DO) Episode of syncope Influenza B Acute pharyngitis Burn of right upper extremity Atherosclerosis of coronary artery of [place] heart without angina pectoris Fibromyalgia Menopausal hot flushes Symptoms of gastroesophageal reflux Hypertension Hyperparathyroidism Paresthesia Skin cancer GERD (gastroesophageal reflux disease) Osteopenia Osteoarthritis Heart murmur Hormone deficiency High cholesterol Headache Gastrointestinal problem Cataracts, bilateral Breast cancer Breast lump UTI (urinary tract infection) Back problem Arthritis Hx of breast cancer Home Medications ???Medication ???Instructions ???Recorded ???Last Taken ???Type acetaminophen 500 mg tablet 1,000 mg PO BID PRN Pain 06/10/23 Unknown History (Tylenol Extra Strength) pantoprazole 40 mg tablet,delayed 40 mg PO DAILY 11/20/23 Unknown H istory release zoledronic acid 5 mg/100 mL in 1 ea .Route ONCE #100 mL 02/22/24 Unknown Rx mannitol 5 %-water intravenous piggybck vitamin D3 500 unit-vit K 500 1 tab PO QDAY 04/04/24 Unknown His tory mcg-berberine 90 mg-hops 370 mg tablet cholecalciferol (vitamin D3) 1,250 1,250 mcg PO QWEEK #4 caps 04/05 Unknown Rx mcg (50,000 unit) capsule cyanocobalamin (vitamin B-12) 100 mcg subcut QMONTH 04/05/24 Unk nown History 1,000 mcg/mL injection solution gabapentin 100 mg capsule 100 mg PO BID #60 caps 04/06/24 Un known Rx Allergy/AdvReac Type Severity Reaction Status Date / Time duloxetine (From Cymbalta) AdvReac Mild dizziness Verified 04/12/24 13:22 Family History Father Heart disease Mother Heart disease Osteoporosis Thyroid disorder Brother Heart disease Hypertension Hypercholesterolemia Daughter Cancer Sister Arthritis Hypertension Hypercholesterolemia Osteoporosis Thyroid disorder Surgical History History of left heart catheterization (08/16/20) History of endoscopy History of colonoscopy History of lumpectomy Hx of cataract surgery H/O: hysterectomy Social History Smoking Status: Never smoker alcohol intake: never substance use type: does not use what type of physical activity do you participate in: walking and weight training frequency: 1-2 times per week EXAM Physical Exam Const Vital Signs: 04/12/24 13:22 04/12/24 15:30 04/12/24 15:31 Temperature 98.5 F Temperature Source Oral Pulse Rate 85 75 Respiratory Rate 16 14 Respiratory Effort Normal Non-Labored Respiratory Pattern Normal Blood Pressure 132/75 H 151/83 H Blood Pressure Mean 94 105 Pulse Ox 99 99 Oxygen Delivery Method Room Air Room Air 04/12/24 17:00 04/12/24 18:59 Temperature 99 F Temperature Source Pulse Rate 81 66 Respiratory Rate 12 18 Respiratory Effort Respiratory Pattern Blood Pressure 131/76 H 133/75 H Blood Pressure Mean 94 94 Pulse Ox 97 96 Oxygen Delivery Method Room Air MDM MDM MDM Narrative Medical decision making narrative: HISTORY OF PRESENT ILLNESS: 74 F here with concern for a syncopal episode urgent care. Notes unwitnessed but approximately 30 seconds loss of consciousness. Notes patient was tested positive for flu B. She notes diffuse weakness muscle aches nausea and fevers. She complains of headache after fall. Denies new back pain. REVIEW OF SYSTEMS: Pertinent positives: Syncope, head trauma, diffuse weakness, nausea and fever Pertinent negatives: Focal weakness, chest pain PHYSICAL EXAM: Nursing triage notes reviewed, Vital signs reviewed Constitutional: please see mdm HENT: MMM Eyes: Pupils equal round and reactive to light, Extraocular muscles intact Neck: No stridor, no JVD, full neck ROM Lungs: Clear to auscultation, No wheezing or rales. No increased work of breathing, no conversational dyspnea, no accessory muscle use, no nasal flaring. No respiratory distress noted Heart: Regular rate and rhythm, No murmurs, No rubs and No gallops, 2+ distal pulses (radial, femoral, posterior tibial) in all extremities Abdomen: Soft, there is no tenderness, rigidity, rebound or guarding, no obvious peritoneal signs, no palpable pulsatile abdominal masses, no auscultated abdominal bruit : No CVAT Extremi (more content not included)... Normal [facility] Erythrocyte distribution wid th ratioOrdered By: Easton Hanson on 04-12-2024 Erythrocyte distribution width (RBC) [Ratio] 11.9 % 11.6-14.6 [facility] Erythrocyte distribution wid th standard deviationOrdered By: Easton Hanson on 04-12-2024 Erythrocyte distribution width (RBC) [Entitic vol] 41.4 fL 35.1-43.9 [facility] Erythrocyte distribution width (RBC) [Ratio] 41.4 fl 35.1-43.9 [facility] Estimated glomerular filtrat ion rate (GFR) AmericanOrdered By: Easton Hanson on 04-12-2024 Estimated GFR (MDRD) Amer 114 mL/min >60 [facility] Comment on above: GFR Calc Estimation of creatinine valarie aranceOrdered By: Easton Hanson on 04-12-2024 Estimated Creatinine Clearance Calc 57.44 ml/min [facility] Glomerular filtration rate ( GFR) estimationOrdered By: Easton Hanson on 04-12-2024 Estimated GFR (MDRD) Non-Af Amer 95 mL/min >60 [facility] Comment on above: Non- GFR Calc GFR/1.73 sq M.predicted among non-blacks MDRD (S/P/Bld) [Vol rate/Area] 95 mL/min/{1.73_m2} >60 [facility] Comment on above: Non- GFR Calc Glucose measurementOrdered B y: Easton Hanson on 04-12-2024 Glucose [Mass/Vol] 108 mg/dL High 74-106 [facility] Comment on above: Fasting Glucose resu lt from 100 to 125 mg/dL suggests IMPAIRED HOMEOSTASIS per A.D.A. criteria. Hematocrit Auto (Bld) [Volum e fraction]Ordered By: Easton Hanson on 04-12-2024 Hematocrit (Bld) [Volume fraction] 37.2 % 37-47 [facility] Hemoglobin measurementOrdere d By: Easton Hanson on 04-12-2024 Hemoglobin (Bld) [Mass/Vol] 12.6 g/dL 12.0-15.0 [facility] L501.4020on 04-12-2024 TROPONIN-I HS 4 pg/mL Normal 3.0-54.0 [facility] Comment on above: Result Comment: Amee bustos Note: New Test Units and Gender Specific Reference Ranges. For more information see Policy Stat Procedure [place] High Sensitivity Troponin (TNIH) and attachments. Performed By: #### L 501.4020 ####[facility] [address] [place], [address] L501.5425on 04-12-2024 TROPONIN-I HS 4 pg/mL Normal 3.0-54.0 [facility] Comment on above: Order Comment: 1Y Result Comment: Amee bustos Note: New Test Units and Gender Specific Reference Ranges. For more information see Policy Stat Procedure [place] High Sensitivity Troponin (TNIH) and attachments. Performed By: #### L 500.4050, L100.0500, L501.5425 ####[facility] [address] [place], [address] Laboratory - Chemistry and C hemistry - challengeOrdered By: Easton Hanson on 04-12-2024 AST [Catalytic activity/Vol] 26 U/L 15-37 [facility] MCV (mean corpuscular volume ) determinationOrdered By: Easton Hanson on 04-12-2024 MCV (RBC) [Entitic vol] 93.5 fL 81-99 [facility] Mean corpuscular hemoglobin (MCH) determinationOrdered By: Easton Hanson on 04-12-2024 MCH (RBC) [Entitic mass] 31.7 pg 27.0-32.0 [facility] Mean corpuscular hemoglobin concentration (MCHC) determinationOrdered By: Easton Hanson on 04-12-2024 MCHC (RBC) [Mass/Vol] 33.9 g/dL 32-36 [facility] Mean platelet volume determi nationOrdered By: Easton Hanson on 04-12-2024 Platelet mean volume (Bld) [Entitic vol] 8.9 fL 6.2-12.0 [facility] No Panel InformationOrdered By: Ang Skaggs on 04-12-2024 Influenza Types A,B Rapid (Clinic) Pos FLU B&Neg FLU A [facility] Platelet countOrdered By: Pedro Hanson on 04-12-2024 Platelets (Bld) [#/Vol] 222 10*3/uL 150-450 [facility] Potassium measurementOrdered By: Easton Hanson on 04-12-2024 Potassium [Moles/Vol] 3.8 mmol/L 3.5-5.1 [facility] RBC Auto (Bld) [#/Vol]Ordere d By: Easton Hanson on 04-12-2024 RBC (Bld) [#/Vol] 3.98 10*6/uL Low 4.2-5.4 [facility] Serum anion gap measurementO rdered By: Easton Hanson on 04-12-2024 Anion gap [Moles/Vol] 8 mmol/L 5-15 [facility] Serum globulin measurementOr dered By: Easton Hanson on 04-12-2024 Globulin (S) [Mass/Vol] 3.6 g/dL 2.2-4.2 [facility] Serum or plasma alanine carballo otransferase (ALT) measurementOrdered By: Easton Hanson on 04-12-2024 ALT [Catalytic activity/Vol] 23 U/L 13-56 [facility] Serum or plasma albumin anjel urement (mass/volume)Ordered By: Easton Hanson on 04-12-2024 Albumin [Mass/Vol] 3.6 g/dL 3.2-5.0 [facility] Serum or plasma alkaline coretta sphatase measurementOrdered By: Easton Hanson on 04-12-2024 ALP [Catalytic activity/Vol] 70 U/L 45-117 [facility] Serum or plasma calcium anjel urement (mass/volume)Ordered By: Easton Hanson on 04-12-2024 Calcium [Mass/Vol] 9.0 mg/dL 8.5-10.1 [facility] Serum or plasma creatinine m easurement (mass/volume)Ordered By: Easton Hanson on 04-12-2024 Creatinine [Mass/Vol] 0.65 mg/dL 0.55-1.02 [facility] Comment on above: The validity of the calculated GFR & GFRAA in patients over 70 years has not been determined. Clinical correlation is essential. Serum or plasma urea nitroge n measurement (mass/volume)Ordered By: Easton Hanson on 04-12-2024 Urea nitrogen [Mass/Vol] 8 mg/dL 7-18 [facility] Sodium levelOrdered By: Krysta Hanson on 04-12-2024 Sodium [Moles/Vol] 130 mmol/L Low 136-145 [facility] Spine Cervical without Contr ason 04-12-2024 Spine Cervical without Contras [facility] Imaging Services [address] [place], [place] [address] Spine Cervical without Contras MR#: [id number] Acct: [id number] Name: KELLI MONROY Rep #: [id number] : 1950 F 74 From: Robert Ramsey MD PCP: Dr. Angel Fuller MD Status: REG ER Study: Spine Cervical without Contras Date of Exam: 0 04/12/24 Exam# [id number] Ordering Dr: Easton Hanson DO PROCEDURE: SPINE CERVICAL WITHOUT CONTRAS REASON FOR EXAM: Fall, neck pain TECHNIQUE: Cervical spine CT without contrast. COMPARISON: None. FINDINGS: Alignment: Normal Vertebrae: No acute fracture Soft Tissues: Unremarkable C1-2: Normal alignment. Dens appears intact. Degenerative changes about the atlantodental articulation C2-3: Unremarkable C3-4: Unremarkable C4-5: Unremarkable C5-6: Mild disc osteophyte complex causing mild compression on the canal C6-7: Mild disc osteophyte complex causing mild compression on the canal C7-T1: Unremarkable CT/Spine Cervical without Contras IMPRESSION: Multilevel degenerative changes with no acute osseous abnormality in the cervical spine. One or more dose reduction techniques were used (e.g., Automated exposure control, adjustment of the mA and/or kV according to patient size, use of iterative reconstruction technique). Reading Location: [facility] CC: Dr. Angel Fuller MD; Dr. Easton Hanson DO Foot Piece Assembler: Signed Normal [facility] Total proteinOrdered By: Sarah Hanson on 04-12-2024 Protein [Mass/Vol] 7.2 g/dL 6.4-8.2 [facility] Troponin IOrdered By: Easton Hanson on 04-12-2024 Troponin I 4 pg/mL 3.0-54.0 [facility] Comment on above: Please Note: New Stephanie t Units and Gender Specific Reference Ranges. For more information see Policy Stat Procedure [place] High Sensitivity Troponin (TNIH) and attachments. Troponin I High Sensitivity 4 pg/mL 3.0-54.0 [facility] Comment on above: Please Note: New Stephanie t Units and Gender Specific Reference Ranges. For more information see Policy Stat Procedure [facility] High Sensitivity Troponin (TNIH) and attachments. Urgent Care Visit Reporton 0 04-12-2024 Urgent Care Visit Report [facility] [address] , [address] [place] [address] OFFICE VISIT Date of Service: 04/12/24 MR#: [id number] Acct: [id number] Name: KELLI MONROY Rep #: [id number] : 1950 Provider: SUMIT Skaggs Age/Sex: 74/F Location: [facility] Status: Signed Intake Vital Signs 04/05/24 09:58 04/12/24 11:59 Height 5 ft 4 in BP 140/70 H Blood Pressure Location Lt brachial Position Sitting Respiration 12 Pulse 101 H Pulse Source NIBP Temp 99.5 F H Temp Source Oral Pulse Oximetry (%) 99 Oxygen Delivery Method room air Intake Visit Reasons: FEVER/BA/VICKY/COUGH Chief Complaint: Establish Care Allergies duloxetine (From Cymbalta) Adverse Reaction (Mild, Verified 04/05/24 09:39) dizziness Have you fallen in the past year?: Yes PFSH Medical History (Updated 04/12/24 @ 12:26 by SUMIT Brush) Episode of syncope Influenza B Acute pharyngitis Burn of right upper extremity Atherosclerosis of coronary artery of [place] heart without angina pectoris Fibromyalgia Menopausal hot flushes Symptoms of gastroesophageal reflux Hypertension Hyperparathyroidism Paresthesia Skin cancer GERD (gastroesophageal reflux disease) Osteopenia Osteoarthritis Heart murmur Hormone deficiency High cholesterol Headache Gastrointestinal problem Cataracts, bilateral Breast cancer Breast lump UTI (urinary tract infection) Back problem Arthritis Hx of breast cancer Surgical History History of left heart catheterization (08/16/20) History of endoscopy History of colonoscopy History of lumpectomy Hx of cataract surgery H/O: hysterectomy Family History Father Heart disease Mother Heart disease Osteoporosis Thyroid disorder Brother Heart disease Hypertension Hypercholesterolemia Daughter Cancer Sister Arthritis Hypertension Hypercholesterolemia Osteoporosis Thyroid disorder Social History Smoking Status: Never smoker alcohol intake: never substance use type: does not use what type of physical activity do you participate in: walking and weight training frequency: 1-2 times per week HPI HPI Chief Complaint: Establish Care Details: KELLI MONROY, is a 74 F who presents to the office today for HPI: Patient states that she did have some rhinorrhea for the last several days but then this morning awoke feeling as though a truck ran over me. She notes fever body aches mild cough and conges tion. ROS: As noted in HPI Physical Exam: VITALS: Reviewed. GEN: Healthy appearing, well-developed, NAD. PSYCH: AOx3. Normal memory, mood, and affect. HEENT -Eyes: -No discharge or redness; -Ears: Normal tympanic membranes bilaterally -Mouth and throat: Moist mucous membranes. NECK: CV: Regular rate and rhythm LUNGS: Normal respiratory effort. Lungs clear bilaterally. SKIN: Warm, well perfused. No skin rashes or abnormal lesions noted. MSK: Normal gait. NEURO: Ambulating with no limitations. Normal muscle strength and tone. No focal deficits. Results POC FLU A B Office Flu A B Pos FLU B Neg FLU A Last Edit by Linda Rangel on 04/12/24 12:21 Coding Level of Care Code Off vis,new,level 4 Diagnoses Influenza B J10.1 Syncope, unspecified syncope type R55 Syncope type: unspecified Assessment and Plan Assessment and Plan (1) Influenza B: Status: Acute Plan: Patient did test positive for influenza B. We discussed the risks and benefits of Tamiflu which patient declines at this time. (2) Episode of syncope: Status: Acute Qualifiers: Syncope type: unspecified Qualified Code(s): R55 - Syncope and collapse Plan: 1220-MR patch patient's room and saw her laying on the floor in the corner by the trash can. On my initial assessment patient was still unconscious but after about 30 seconds did regain consciousness. I had heard a noise which I had thought was someone cleaning up some boxes in the supply room about 1 minute prior to this episode. Patient sat on the floor for several minutes and returned to baseline was able to ambulate under her own power back to the chair. At that time she denied any neck pain or headache. She had no cervical spine tenderness on palpation. Discussed with patient my concerns for possible head injury and evaluation of her syncopal episode and at this point, she is calling a family member to transport her to the emergency department. In the end, I do feel her symptoms are most likely consistent with a vasovagal syncope event related to her influenza B and not feeling well but based on her age and fall I do feel that an evaluation at the emergency department w (more content not included)... Normal [facility] White blood cell (WBC) count Ordered By: Easton Hanson on 04-12-2024 WBC (Bld) [#/Vol] 5.5 10*3/uL 4.4-11.0 [facility] RONNELL w/ Reflex Mult Confirmon 04-06-2024 ANTI-DNA (DS)AB TNP Normal [facility] Comment on above: Performed By: #### L 501.5200, L500.4050, L100.0100, L101.9900, L501.9520, L501.6710, L3130.0010, L3100.5450 ####[facility] [address] [place], [place], [id number] ANTISCLERODERM TNP Normal [facility] Comment on above: Performed By: #### L 501.5200, L500.4050, L100.0100, L101.9900, L501.9520, L501.6710, L3130.0010, L3100.5450 ####[facility] [address] [place], [address] [place] Lambda Light Chainson 04-06-2024 FR KAPPA LT CHN 14.7 mg/L Normal 3.3-19.4 [facility] Comment on above: Performed By: #### L 501.5200, L500.4050, L100.0100, L101.9900, L501.9520, L501.6710, L3130.0010, L3100.5450 ####[facility] [address] [place], [place], [id number] FR LAMBDA LT CH 11.5 mg/L Normal 5.7-26.3 [facility] Comment on above: Performed By: #### L 501.5200, L500.4050, L100.0100, L101.9900, L501.9520, L501.6710, L3130.0010, L3100.5450 ####[facility] [address] [place], [address] KAPPA/LAMBDA % 1.28 Normal 0.26-1.65 [facility] Comment on above: Result Comment: Perf ormed at: [facility] [id number] [place], [place] [id number] Rim Buster: Dannie Meza PhD, Phone: [phone] Performed By: #### L 501.5200, L500.4050, L100.0100, L101.9900, L501.9520, L501.6710, L3130.0010, L3100.5450 ####[facility] [address] [place], [place], [id number] RONNELL serumOrdered By: Linda bob on 04-04-2024 Anti-Nuclear Antibody Screen Negative Negative [facility] Comment on above: Performed at: [facility] [address] [id number] Director: Dannie Meza PhD, Phone: [phone] Absolute lymphocyte countOrd ered By: Linda Amaya on 04-04-2024 Lymphocytes Auto (Unsp spec) [#/Vol] 0.65 10*3/uL Low 0.83-4.51 [facility] Absolute neutrophil countOrd ered By: Linda Amaya on 04-04-2024 Neutrophils (Bld) [#/Vol] 5.8 10*3/uL 2.0-7.7 [facility] Albumin to globulin ratioOrd ered By: Linda Amaya on 04-04-2024 Albumin/Globulin [Mass ratio] 1.1 {ratio} 0.9-2.4 [facility] Automated lymphocyte count a s percentage of total leukocytesOrdered By: Linda Amaya on 04-04-2024 Lymphocytes/100 WBC Auto (Unsp spec) 9.0 % Low 19-41 [facility] Basophil percentageOrdered B y: Linda Amaya on 04-04-2024 Basophils/100 WBC (Bld) 0.6 % 0-1 [facility] Bilirubin, totalOrdered By: Linda Amaya on 04-04-2024 Bilirubin [Mass/Vol] 0.40 mg/dL 0.20-1.00 [facility] Comment on above: For patients on eltr ombopag therapy, use of Dimension [place] TBIL is not recommended. Blood urea nitrogen (BUN)/cr eatinine ratioOrdered By: Linda Amaya on 04-04-2024 Urea nitrogen/Creatinine [Mass ratio] 13.2 mg/mg 10- [facility] C-reactive protein measureme nt by high sensitivity methodOrdered By: Lindayasemin Amaya on 04-04-2024 C-Reactive Protein Extended Range < 2.90 mg/L 0.0-3.0 [facility] Comment on above: C-Reactive Protein ( CRP) provides useful information for thediagnosis, therapy and monitoring of inflammatory processesand associated diseases. For the evaluation of Relative Riskfor Cardiovascular Disease, a High Sensitivity CRP (HSCRP)should be ordered. CBC W/Diff, Automatedon 03-26 Absolute Lymph 0.65 X10 3/uL Low 0.83-4.51 [facility] Comment on above: Performed By: #### L 501.5200, L500.4050, L100.0100, L101.9900, L501.9520, L501.6710, L3130.0010, L3100.5450 ####[facility] [address] [place], [place], [id number] Absolute Neut 5.8 X10 3/uL Normal 2.0-7.7 [facility] Comment on above: Performed By: #### L 501.5200, L500.4050, L100.0100, L101.9900, L501.9520, L501.6710, L3130.0010, L3100.5450 ####[facility] [address] [place], [address] Basophils/100 WBC (Bld) 0.6 % Normal 0-1 [facility] Comment on above: Performed By: #### L 501.5200, L500.4050, L100.0100, L101.9900, L501.9520, L501.6710, L3130.0010, L3100.5450 ####[facility] [address] [place], [address] Eosinophils/100 WBC (Bld) 0.6 % Normal 0-5 [facility] Comment on above: Performed By: #### L 501.5200, L500.4050, L100.0100, L101.9900, L501.9520, L501.6710, L3130.0010, L3100.5450 ####[facility] [address] [place], [address] Erythrocyte distribution width (RBC) [Ratio] 12.0 % Normal 11.6-14.6 [facility] Comment on above: Performed By: #### L 501.5200, L500.4050, L100.0100, L101.9900, L501.9520, L501.6710, L3130.0010, L3100.5450 ####[facility] [address] [place], [address] Hematocrit (Bld) [Volume fraction] 37.3 % Normal 37-47 [facility] Comment on above: Performed By: #### L 501.5200, L500.4050, L100.0100, L101.9900, L501.9520, L501.6710, L3130.0010, L3100.5450 ####[facility] [address] [place], [address] Hemoglobin (Bld) [Mass/Vol] 12.7 g/dL Normal 12.0-15.0 [facility] Comment on above: Performed By: #### L 501.5200, L500.4050, L100.0100, L101.9900, L501.9520, L501.6710, L3130.0010, L3100.5450 ####[facility] [address] [place], [address] IG% 0.300 Normal 0.0-0.9 [facility] Comment on above: Result Comment: IG% - Immature Granulocytes (promyelocytes, myelocytes and metamyelocytes) > 1% indicates that a LEFT SHIFT is Present. Performed By: #### L 501.5200, L500.4050, L100.0100, L101.9900, L501.9520, L501.6710, L3130.0010, L3100.5450 ####[facility] [address] [place], [address] Lymphocytes/100 WBC (Bld) 9.0 % Low 19-41 [facility] Comment on above: Performed By: #### L 501.5200, L500.4050, L100.0100, L101.9900, L501.9520, L501.6710, L3130.0010, L3100.5450 ####[facility] [address] [place], [address] MCH (RBC) [Entitic mass] 32.0 pg Normal 27.0-32.0 [facility] Comment on above: Performed By: #### L 501.5200, L500.4050, L100.0100, L101.9900, L501.9520, L501.6710, L3130.0010, L3100.5450 ####[facility] [address] [place], [address] MCHC (RBC) [Mass/Vol] 34.0 g/dL Normal 32-36 [facility] Comment on above: Performed By: #### L 501.5200, L500.4050, L100.0100, L101.9900, L501.9520, L501.6710, L3130.0010, L3100.5450 ####[facility] [address] [place], [address] MCV (RBC) [Entitic vol] 94.0 fL Normal 81-99 [facility] Comment on above: Performed By: #### L 501.5200, L500.4050, L100.0100, L101.9900, L501.9520, L501.6710, L3130.0010, L3100.5450 ####[facility] [address] [place], [address] Monocytes/100 WBC (Bld) 10.2 % High 0-10 [facility] Comment on above: Performed By: #### L 501.5200, L500.4050, L100.0100, L101.9900, L501.9520, L501.6710, L3130.0010, L3100.5450 ####[facility] [address] [place], [address] Neutrophils/100 WBC (Bld) 79.3 % High 47-70 [facility] Comment on above: Performed By: #### L 501.5200, L500.4050, L100.0100, L101.9900, L501.9520, L501.6710, L3130.0010, L3100.5450 ####[facility] [address] [place], [address] Nucleated RBC (Bld) [#/Vol] 0 10*3/uL Normal 0-5 [facility] Comment on above: Performed By: #### L 501.5200, L500.4050, L100.0100, L101.9900, L501.9520, L501.6710, L3130.0010, L3100.5450 ####[facility] [address] [place], [address] Platelet mean volume (Bld) [Entitic vol] 9.7 fL Normal 6.2-12.0 [facility] Comment on above: Performed By: #### L 501.5200, L500.4050, L100.0100, L101.9900, L501.9520, L501.6710, L3130.0010, L3100.5450 ####[facility] [address] [place], [address] Platelets (Bld) [#/Vol] 332 10*3/uL Normal 150-450 [facility] Comment on above: Performed By: #### L 501.5200, L500.4050, L100.0100, L101.9900, L501.9520, L501.6710, L3130.0010, L3100.5450 ####[facility] [address] [place], [address] RBC (Bld) [#/Vol] 3.97 10*6/uL Low 4.2-5.4 [facility] Comment on above: Performed By: #### L 501.5200, L500.4050, L100.0100, L101.9900, L501.9520, L501.6710, L3130.0010, L3100.5450 ####[facility] [address] [place], [address] RDW SD 41.7 fl Normal 35.1-43.9 [facility] Comment on above: Performed By: #### L 501.5200, L500.4050, L100.0100, L101.9900, L501.9520, L501.6710, L3130.0010, L3100.5450 ####[facility] [address] [place], [address] WBC (Bld) [#/Vol] 7.3 10*3/uL Normal 4.4-11.0 [facility] Comment on above: Performed By: #### L 501.5200, L500.4050, L100.0100, L101.9900, L501.9520, L501.6710, L3130.0010, L3100.5450 ####[facility] [address] [place], [place], [id number] CRPon 04-04-2024 C-REACTIVE PROT < 2.90 Normal 0.0-3.0 [facility] Comment on above: Result Comment: C-Re active Protein (CRP) provides useful information for the diagnosis, therapy and monitoring of inflammatory processes and associated diseases. For the evaluation of Relative Risk for Cardiovascular Disease, a High Sensitivity CRP (HSCRP) should be ordered. Performed By: #### L 501.5200, L500.4050, L100.0100, L101.9900, L501.9520, L501.6710, L3130.0010, L3100.5450 ####[facility] [address] [place], [place], [id number] Carbon dioxide measurementOr dered By: Linda Amaya on 04-04-2024 CO2 [Moles/Vol] 27.0 mmol/L 21.0-32.0 [facility] Centromere B antibody assayO rdered By: Linda Amaya on 04-04-2024 Centromere B Antibody TNP [facility] Comment on above: Test not performed Chloride measurementOrdered By: Linda Amaya on 04-04-2024 Chloride [Moles/Vol] 100 mmol/L 98-107 [facility] Chromatin antibody assayOrde red By: Linda Amaya on 04-04-2024 [facility] Comment on above: Test not performed Comprehensive Metabolic Prof ilon 04-04-2024 Albumin [Mass/Vol] 3.9 g/dL Normal 3.2-5.0 [facility] Comment on above: Performed By: #### L 501.5200, L500.4050, L100.0100, L101.9900, L501.9520, L501.6710, L3130.0010, L3100.5450 ####[facility] [address] [place], [address] Albumin/Globulin [Mass ratio] 1.1 {ratio} Normal 0.9-2.4 [facility] Comment on above: Performed By: #### L 501.5200, L500.4050, L100.0100, L101.9900, L501.9520, L501.6710, L3130.0010, L3100.5450 ####[facility] [address] [place], [address] ALK P 61 U/L Normal 45-117 [facility] Comment on above: Performed By: #### L 501.5200, L500.4050, L100.0100, L101.9900, L501.9520, L501.6710, L3130.0010, L3100.5450 ####[facility] [address] [place], [address] ALT [Catalytic activity/Vol] 19 U/L Normal 13-56 [facility] Comment on above: Performed By: #### L 501.5200, L500.4050, L100.0100, L101.9900, L501.9520, L501.6710, L3130.0010, L3100.5450 ####[facility] [address] [place], [address] AST [Catalytic activity/Vol] 15 U/L Normal 15-37 [facility] Comment on above: Performed By: #### L 501.5200, L500.4050, L100.0100, L101.9900, L501.9520, L501.6710, L3130.0010, L3100.5450 ####[facility] [address] [place], [address] Bilirubin [Mass/Vol] 0.40 mg/dL Normal 0.20-1.00 [facility] Comment on above: Result Comment: For patients on eltrombopag therapy, use of Dimension [place] TBIL is not recommended. Performed By: #### L 501.5200, L500.4050, L100.0100, L101.9900, L501.9520, L501.6710, L3130.0010, L3100.5450 ####[facility] [address] [place], [address] BUN/CRE 13.2 RATIO Normal 10-20 [facility] Comment on above: Performed By: #### L 501.5200, L500.4050, L100.0100, L101.9900, L501.9520, L501.6710, L3130.0010, L3100.5450 ####[facility] [address] [place], [address] CA,Total 9.2 mg/dL Normal 8.5-10.1 [facility] Comment on above: Performed By: #### L 501.5200, L500.4050, L100.0100, L101.9900, L501.9520, L501.6710, L3130.0010, L3100.5450 ####[facility] [address] [place], [address] Chloride [Moles/Vol] 100 mmol/L Normal 98-107 [facility] Comment on above: Performed By: #### L 501.5200, L500.4050, L100.0100, L101.9900, L501.9520, L501.6710, L3130.0010, L3100.5450 ####[facility] [address] [place], [address] CO2 [Moles/Vol] 27.0 mmol/L Normal 21.0-32.0 [facility] Comment on above: Performed By: #### L 501.5200, L500.4050, L100.0100, L101.9900, L501.9520, L501.6710, L3130.0010, L3100.5450 ####[facility] [address] [place], [place], [phone]) Creatinine [Mass/Vol] 0.61 mg/dL Normal 0.55-1.02 [facility] Comment on above: Result Comment: The validity of the calculated GFR GFRAA in patients over 70 years has not been determined. Clinical correlation is essential. Performed By: #### L 501.5200, L500.4050, L100.0100, L101.9900, L501.9520, L501.6710, L3130.0010, L3100.5450 ####[facility] [address] [place], [place], [phone] EST GFR - AA 124 mL/min Normal >60 [facility] Comment on above: Result Comment: Afri can [place] GFR Calc Performed By: #### L 501.5200, L500.4050, L100.0100, L101.9900, L501.9520, L501.6710, L3130.0010, L3100.5450 ####[facility] [address] [place], [address] GAP 7 Normal 5-15 [facility] [facility] Comment on above: Performed By: #### L 501.5200, L500.4050, L100.0100, L101.9900, L501.9520, L501.6710, L3130.0010, L3100.5450 ####[facility] [address] [place], [address] GFR/1.73 sq M.predicted among non-blacks MDRD (S/P/Bld) [Vol rate/Area] 102 mL/min/{1.73_m2} Normal >60 [facility] Comment on above: Result Comment: Non- GFR Calc Performed By: #### L 501.5200, L500.4050, L100.0100, L101.9900, L501.9520, L501.6710, L3130.0010, L3100.5450 ####[facility] [address] [place], [address] Globulin (S) [Mass/Vol] 3.4 g/dL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 any relief and is beginning to not trust her chiropractor. She has seen Dr. escalera in the past for the pain. When she saw Dr. Templeton in a year ago he recommended a cervical traction unit however that unit was not covered by her insurance and she was not able to pay for it [id number]. She is wanting an MRI of her back and wants an understanding of what is going on with her spine. When she was in the ED they did do a CT of her neck. The symptoms that she has bee having is burning over the top of her chest/throat into her left elbow. Says that she does get a burning achy pain infrequently at night that will go down her anterior arms to her elbow however this pain does not last for long. She says that this pain has improved over the last year when she last saw Dr. Escalera. Her main symptom and issue that she currently has is the throat burning, however she does deny any dysphagia symptoms she is not avoiding any foods and she denies any aspiration. She has had a barium swallow and ultrasound of her throat to try and figure what is going on. She does have an upcoming appt. as well with her neurologist Dr. Mckeon. When she was in the ED she was given Flexeril but has recently been feeling better and is unsure if it is from the Flexeril or not seeing the chiropractor for 2 weeks. She would like to know if her neck ahns anything to do with the symptoms she is having in her throat. Says that she has done physical therapy in the past but nothing recent. Patient denies any balance changes. Patient denies any dexterity issues. Carpal tunnel surgery on her left several years ago, patient is unsure when exactly, she had that done by Dr. Montana. Ortho Exam General General: Yes no acute distress Neurologic: Yes alert and Yes oriented x3 Spine SPINE TESTING CERVICAL THORACIC LUMBAR Musculoskeletal Strength 0=absent - 5=normal Details: Neurological exam of the upper extremities shows 5X5 power. Normal sensation across all dermatomes. No hyperreflexia. No midline or paraspinal tenderness. Coding Level of Care Code Off vis,est,level 4 Diagnoses Cervical radiculopathy M54.12 Degenerative disc disease, cervical M50.30 Assessment and Plan Assessment and Plan (1) Cervical radiculopathy: Status: Acute (2) Degenerative disc disease, cervical: Status: Acute Orders: Orders Cerv Spine 4 or 5 Views Today M54.2 - Cervicalgia Plan Obtained and reviewed cervi (more content not included)... Normal [facility] Emergency Department Summary on 03-13-2024 Emergency Department Summary [facility] Medical Records Department [address] [place] [address] Emergency Department Summary 03/13/24 MR#: [id number] Acct: [id number] Name: KELLI MONROY Rep #: [id number] : 1950 74 From: Christopher Greenfield DO PCP: Dr. Angel Fuller MD Status:REG ER Location: ED HPI History of Present Illness Chief Complaint: Back Narrative Narrative: Chief complaint and HPI: Neck pain. 74-year-old female with chronic neck pain presents for evaluation of neck pain. Patient states she has had chronic neck pain for a long time. She states she is on orthopedic physician in the past for her chronic neck pain and surgery was not recommended. She states that she has since then been seeing a chiropractor weekly. She states that the pain is not improving and is progressively worsening. She describes it as burning and bilateral. She states that it radiates down into the upper thoracic back and periodically down the arms. She denies any weakness or neurological deficit. She states that she was adjusted on Thursday without improvement in her pain and readjusted on by the chiropractor without improvement. She denies any change in her pain. She takes Tylenol. Denies any fever, chills, vision changes, nausea, vomiting. Review of systems: See HPI Medications: As listed on the chart Allergies: As listed on the chart PFSH: Per chart Vital signs: As listed on the chart. Reviewed. Physical exam: Gen: A O x3, NAD Head: Normocephalic, atraumatic Eyes: No sclera icterus, conjunctiva clear, PERRL, EOMI ENT: Moist mucous membranes, No facial asymmetry Neck: Trachea midline, No JVD full range of motion, no midline spinal tenderness, no bony step-offs, mild tenderness to palpation of the paraspinal musculature of the bilateral cervical spine CV: RRR, no murmurs, no peripheral edema Resp: Lungs CTA BL, no w/r/c Musc: Full ROM, no deformity, strength +5/5 in all extremities Skin: Warm, dry, intact Neuro: Alert, oriented, grossly intact, sensation intact, no focal deficits Psych: Cooperative, appropriate mood and affect PFSH [facility] Medical History (Updated 03/13/24 @ 00:[address] Christopher Greenfield, DO) Acute pharyngitis Burn of right upper extremity Atherosclerosis of coronary artery of [place] heart without angina pectoris Fibromyalgia Menopausal hot flushes Symptoms of gastroesophageal reflux Hypertension Hyperparathyroidism Paresthesia Skin cancer GERD (gastroesophageal reflux disease) Osteopenia Osteoarthritis Heart murmur Hormone deficiency High cholesterol Headache Gastrointestinal problem Cataracts, bilateral Breast cancer Breast lump UTI (urinary tract infection) Back problem Arthritis Hx of breast cancer Home Medications ???Medication ???Instructions ???Recorded ???Last Taken ???Type acetaminophen 500 mg tablet 1,000 mg PO BID PRN Pain 06/10/23 Unknown History (Tylenol Extra Strength) pantoprazole 40 mg tablet,delayed 40 mg PO DAILY 11/20/23 Unknown History release zoledronic acid 5 mg/100 mL in 1 ea .Route ONCE #100 mL 02/22/24 Unknown Rx mannitol 5 %-water intravenous piggybck amoxicillin 875 mg-potassium 1 tab PO BID 7 days #14 tabs 03/06/24 Unknown Rx clavulanate 125 mg tablet cyclobenzaprine 5 mg tablet 5 mg PO TID PRN muscle spasm 3 03/13/24 Unknown Rx days #9 tabs Allergy/AdvReac Type Severity Reaction Status Date / Time duloxetine (From Cymbalta) AdvReac Mild dizziness Verified 03/12/24 20:44 Family History Father Heart disease Mother Heart disease Osteoporosis Thyroid disorder Brother Heart disease Hypertension Hypercholesterolemia Daughter Cancer Sister Arthritis Hypertension Hypercholesterolemia Osteoporosis Thyroid disorder Surgical History History of left heart catheterization (08/16/20) History of endoscopy History of colonoscopy History of lumpectomy Hx of cataract surgery H/O: hysterectomy Social History Smoking Status: Never smoker alcohol intake: never substance use type: does not use what type of physical activity do you participate in: walking and weight training frequency: 1-2 times per week EXAM Physical Exam Const Vital Signs: 03/12/24 20:45 Temperature 97.7 F L Temperature Source Temporal Pulse Rate 84 Respiratory Rate 16 Blood Pressure 175/78 H Blood Pressure Mean 110 Pulse Ox 98 Oxygen Delivery Method Room Air MDM MDM MDM Narrative Medical decision making narrative: 74-year-old female with chronic neck pain presents for evaluation of neck pain. Differential diagnosis includes but is not limited to myofascial spasm, stenosis, arthr (more content not included)... Normal [facility] CTA Neck W/WO Contraston CTA Neck W/WO Contrast [facility] Imaging Services [address] [place] [id number] CTA Neck W/WO Contrast MR#: [id number] Acct: [id number] Name: KELLI MORNOY Rep #: [id number] : 1950 F 74 From: Arden [place] MD PCP: Dr. Angel Fuller MD Status: REG ER Study: CTA Neck W/WO Contrast Date of Exam: 03/12/24 Exam# [id number] Ordering Dr: Christopher Greenfield DO [id number] EXAM: CT ANGIOGRAPHY NECK WITHOUT AND WITH INTRAVENOUS CONTRAST CLINICAL INDICATION: Neck pain, manipulated by chiropractor TECHNIQUE: Routine carotid CT angiography protocol was performed without and with intravenous contrast. NASCET criteria using the distal ICAs for comparison were used for evaluation of stenoses. This CT exam was performed using one or more of the following dose reduction techniques: automated exposure control, adjustment of the mA and/or kV according to patient size, and/or use of iterative reconstruction technique. MIP reconstructed images were created and reviewed. CONTRAST: IV 75mL [id number] COMPARISON: No relevant prior studies available. FINDINGS: VASCULATURE: RIGHT COMMON CAROTID ARTERY: Unremarkable. No occlusion or significant stenosis. No dissection. RIGHT INTERNAL CAROTID ARTERY: There are calcifications in the right carotid bulb. Extracranial segment is patent with no occlusion or significant stenosis. No dissection. RIGHT EXTERNAL CAROTID ARTERY: Unremarkable. No occlusion. RIGHT VERTEBRAL ARTERY: Unremarkable. No occlusion or significant stenosis. No dissection. LEFT COMMON CAROTID ARTERY: Unremarkable. No occlusion or significant stenosis. No dissection. LEFT INTERNAL CAROTID ARTERY: Unremarkable. Extracranial segment is patent with no occlusion or significant stenosis. No dissection. LEFT EXTERNAL CAROTID ARTERY: Unremarkable. No occlusion. LEFT VERTEBRAL ARTERY: There are minimal calcifications in the proximal internal carotid arteries. There is no stenosis. The left vertebral artery is smaller than the right with the right being the main supplier to the basilar system. No dissection. BRACHIOCEPHALIC AND SUBCLAVIAN ARTERIES: Unremarkable as visualized. No occlusion or significant stenosis. NECK: BONES/JOINTS: Unremarkable. No acute fracture. SOFT TISSUES: Unremarkable. LUNG APICES: Clear. CAROTID STENOSIS REFERENCE USING NASCET CRITERIA: % ICA stenosis = (1 - narrowest ICA diameter/diameter of distal cervical ICA) x 100. Mild - <50% stenosis. Moderate - 50-69% stenosis. Severe - 70-94% stenosis. Near occlusion - 95-99% stenosis. Occluded - 100% stenosis. CT/CTA Neck W/WO Contrast IMPRESSION: 1. Minimal calcifications in the carotid bulbs and proximal internal carotid arteries slightly greater on the right. There is no stenosis. 2. Small caliber left vertebral artery. The right vertebral artery the main supplier to the basilar system. All vessels are patent with no stenosis or occlusion. Electronically Signed: Arden Lake MD at 23:57 EST , CC: Dr. Christopher Greenfield DO; Dr. 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: Signed Normal [facility] Urgent Care Visit Reporton 0 03-06-2024 Urgent Care Visit Report [facility] [address] [place] [address] OFFICE VISIT Date of Service: 03/06/24 MR#: [id number] Acct: [id number] Name: KELLI MONROY Rep #: [id number] : 1950 Provider: SUMIT griffin Age/Sex: 74/F Location: [facility] Status: Signed Intake Vital Signs 02/19/24 15:45 03/06/24 13:21 Height 5 ft 4 in Weight: 157 lb BMI 26.9 BP 147/85 H 146/76 H Blood Pressure Location Lt brachial Lt brachial Position Sitting Sitting Respiration 16 Pulse 82 71 Pulse Source Monitor NIBP Temp 98.6 F Temp Source Oral Pulse Oximetry (%) 99 99 Oxygen Delivery Method room air room air Intake Visit Reasons: HEAD CONGESTION, SORE THROAT Chief Complaint: congest, drainage, weak, fatigued, ears Turn Sewer Required: No Is patient in pain?: No Allergies duloxetine (From Cymbalta) Adverse Reaction (Mild, Verified 03/06/24 13:22) dizziness Is last menstrual period known: No Post menopausal: Yes Patient : No Have you fallen in the past year?: No Nurse's Note: congest, drainage, weak, fatigued, ears plugged, head pressure, throat burning for over 2 weeks worse in last 3 days. [facility] Medical History (Updated 03/06/24 @ 13:38 by Luis Daniel Son NP, TRAIN DRIVER-C) Acute pharyngitis Burn of right upper extremity Atherosclerosis of coronary artery of [place] heart without angina pectoris Fibromyalgia Menopausal hot flushes Symptoms of gastroesophageal reflux Hypertension Hyperparathyroidism Paresthesia Skin cancer GERD (gastroesophageal reflux disease) Osteopenia Osteoarthritis Heart murmur Hormone deficiency High cholesterol Headache Gastrointestinal problem Cataracts, bilateral Breast cancer Breast lump UTI (urinary tract infection) Back problem Arthritis Hx of breast cancer Surgical History History of left heart catheterization (08/16/20) History of endoscopy History of colonoscopy History of lumpectomy Hx of cataract surgery H/O: hysterectomy Family History Father Heart disease Mother Heart disease Osteoporosis Thyroid disorder Brother Heart disease Hypertension Hypercholesterolemia Daughter Cancer Sister Arthritis Hypertension Hypercholesterolemia Osteoporosis Thyroid disorder Social History Smoking Status: Never smoker alcohol intake: never substance use type: does not use what type of physical activity do you participate in: walking and weight training frequency: 1-2 times per week HPI HPI Chief Complaint: congest, drainage, weak, fatigued, ears Details: KELLI MONROY, is a 74 F who presents to the office today for concerns regarding congestion, nasal drainage, weakness, fatigue, ears feeling plugged, head pressure, and throat burning sensation for the last 2 weeks. She states feeling hot followed by clammy sensation. She states back and neck trouble. She feels this to have been worsened over the last 3 days. She elaborates on many health related issues that have been ongoing and chronic for years. She elaborates on previous infectious disease evaluations along with medications and palpitations in conjunction cardiac evaluation. She also states she has undergone multiple EGDs to assist with burning sensation in her throat. She is very loquacious. She has tried Tylenol with minimal relieve. She states home temperature of 100.6 and 99.6. ROS Const Constitutional: Positive for weakness; No body ache, chills, fatigue, fever(s), headache(s) or change in appetite Eyes Eyes: Positive for irritation (burning) and discharge (watery); No blurry vision, change in vision, double vision, vision loss, dry eyes, bulging eyes, floaters, visual disturbances, eye pain, Light sensitivity, spots in vision, tunnel vision or other ENT ENT: Positive for ear or mastoid pain, ear pressure, sinus pressure, sinus pain, post nasal drip and sore throat; No ear discharge, tinnitus, dizziness/vertigo, nosebleed/epistaxis, nasal congestion, nose pain, nasal discharge, headache(s), facial pain, dental pain, difficulty swallowing, bad breath, hoarseness, lip swelling, mouth lesions, mouth pain, neck pain, tongue swelling or throat swelling Resp Respiratory: No cough, change in phlegm color, chest congestion, hemoptysis, pain on inspiration, shortness of breath, pain with cough, stridor or wheezing Cardio Cardiology: No chest pain at rest, chest pain with exertion, shortness of breath, dyspnea on exertion or lightheadedness Gastro GI: No abdominal pain, change in bowel habits, constipation, diarrhea, heartburn, difficulty swallowing, nausea/dyspepsia or vomiting Genitourinary-Female: No burning urination or ur (more content not included)... Normal [facility] CNPNon 03-04-2024 MISSY Telephone (HEMAWS) -------- KELLI MONROY ([id number]) 1950 F Date Time Provider Department 03/04/24 DEYANIRA MENDEZ During your visit today, we recorded the following information about you: Yelitza Bartlett LPN 03/04/2024 3:05 PM Signed Patient contacted office c/o excessive sweating to bilateral axilla and under both breasts. Patient states this has been ongoing for about 1 year. She saw her steward/stewardess smoke room and was given prescription deodorant which has helped somewhat but she is still having issues and states still has sweating/dampness under both arms and breasts. Asking if radiation has caused this. Patient completed radiation in 2017. Requested appointment with Deyanira for this issue. I advised patient to contact her steward/stewardess smoke room again. Informed patient I would ask Deyanira and renetta patterson about this as well. ALDA Guthrie Darby, APRN.FINAL CLEANER 03/07/2024 8:23 AM Signed Please advise pt. to follow up with PCP/derm. Thank you. Deyanira Mendez APRN.Charlotte Snider LPN 03/07/2024 8:48 AM Signed Pt advised and voices understanding. Charlotte Murillo LPN Allergies As of Date: 03/04/2024 Noted Allergy Reaction DULOXETINE 09/14/2019 2 - Rash Date Reviewed: 09/08/2023 Reviewed by: Laura Powell MA - Fully Assessed Reason for Visit: Patient Update [1234] Prescriptions as of 03/07/2024 - omeprazole magnesium (PRILOSEC ORAL) Take by mouth. - COLLAGEN MISC 2 Tablespoonsful once daily. Unknown dosage - calcium/chondr/collag/gl ycosam (BEYOND BONE BROTH ORAL) Take by mouth. Bone Broth Collagen 1 Scoop per day (2 table spoons) - zoledronic acid (RECLAST) 5 mg/100 mL pgbk PREMIX piggyback Zoledronic Udwm-Vepvahsg-Slnqk Active 1 EACH .Route ONCE 100 February 07, 2021 11:08am onceinfuse over 20 minutes - acetaminophen (TYLENOL EX STR RAPID RELEASE ORAL) Take 1,000 mg by mouth twice daily as needed. 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*04/29/2017 Early satiety [R68.81] 12/07/2017 Nausea [R11.0] 12/07/2017 Vulvar burning [N94.89] 12/07/2017 Other specified disorders of carbohydrate metab*12/07/2017 Osteoarthritis of multiple joints [M15.9] 07/13/2018 H/O degenerative disc disease [Z87.39] 07/13/2018 Low bone density [M85.9] 07/13/2018 Encounter Status:Closed by CHARLOTTE MURILLO on 03/07/24 [facility] KELLI [facility]Y ([id number]) 1950 F Date Time Provider Department 02/22/24 BARON KEVIN During your visit today, we recorded the following information about you: Mandy Fuentes 02/22/2024 11:00 AM Signed Patient is calling requesting Mammo from 02/04/2024 copied to a disk. Baron Kevin PSS 02/22/2024 1:37 PM Signed CD READ[facility] Allergies As of Date: 02/22/2024 Noted Allergy Reaction DULOXETINE 09/14/2019 2 - Rash Date Reviewed: 09/08/2023 Reviewed by: Laura Powell MA - Fully Assessed Reason for Visit: disk request [Other] Prescriptions as of 05/13/2024 - omeprazole magnesium (PRILOSEC ORAL) Take by mouth. - COLLAGEN MISC 2 Tablespoonsful once daily. Unknown dosage - calcium/chondr/collag/gl ycosam (BEYOND BONE BROTH ORAL) Take by mouth. Bone Broth Collagen 1 Scoop per day (2 table spoons) - zoledronic acid (RECLAST) 5 mg/100 mL pgbk PREMIX piggyback Zoledronic Heed-Fghvevux-Yqjbr Active 1 EACH .Route ONCE 100 February 07, 2021 11:08am onceinfuse over 20 minutes - acetaminophen (TYLENOL EX STR RAPID RELEASE ORAL) Take 1,000 mg by mouth twice daily as needed. 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 [place] [address] OFFICE VISIT Date of Service: 02/19/24 MR#: [id number] Acct: [id number] Name: KELLI MONROY Rep #: [id number] : 1950 Provider: Laxmi Kovacs Age/Sex: 73/F Location: [facility] Status: Signed Intake Vital Signs 02/19/23 15:51 11/20/23 18:49 02/19/24 15:45 Height 5 ft 4 in 5 ft 4.5 in 5 ft 4 in Weight: 157 lb BMI 26.9 BP 147/85 H Blood Pressure Location Lt brachial Position Sitting Pulse 82 Pulse Source Monitor Pulse Oximetry (%) 99 Oxygen Delivery Method room air Intake Visit Reasons: 1 Y FU Chief Complaint: throat and chest burning Is patient in pain?: Yes Allergies duloxetine (From Cymbalta) Adverse Reaction (Mild, Verified 11/20/23 18:49) dizziness Medications ???Medication ???Instructions ???Recorded ???Confirmed ???Type acetaminophen 500 mg tablet 1,000 mg PO BID PRN Pain 06/10/23 02/19/24 History (Tylenol Extra Strength) pantoprazole 40 mg tablet,delayed 40 mg PO DAILY 11/20/23 02/19/24 History release vitamin D3 1,250 mcg (50,000 cap PO .QOD 02/19/24 02/19/24 History unit)-vitamin K2 200 mcg capsule zoledronic acid 5 mg/100 mL in 1 ea .Route ONCE #100 mL 02/22/24 02/22/24 Rx mannitol 5 %-water intravenous piggybck Have you fallen in the past year?: No PFSH Medical History (Updated 02/22/24 @ 08:[address] Cade Monroy MD) Acute pharyngitis Burn of right upper extremity Atherosclerosis of coronary artery of [place] heart without angina pectoris Fibromyalgia Menopausal hot flushes Symptoms of gastroesophageal reflux Hypertension Hyperparathyroidism Paresthesia Skin cancer GERD (gastroesophageal reflux disease) Osteopenia Osteoarthritis Heart murmur Hormone deficiency High cholesterol Headache Gastrointestinal problem Cataracts, bilateral Breast cancer Breast lump UTI (urinary tract infection) Back problem Arthritis Hx of breast cancer Surgical History History of left heart catheterization (08/16/20) History of endoscopy History of colonoscopy History of lumpectomy Hx of cataract surgery H/O: hysterectomy Family History Father Heart disease Mother Heart disease Osteoporosis Thyroid disorder Brother Heart disease Hypertension Hypercholesterolemia Daughter Cancer Sister Arthritis Hypertension Hypercholesterolemia Osteoporosis Thyroid disorder Social History Smoking Status: Never smoker alcohol intake: never substance use type: does not use what type of physical activity do you participate in: walking and weight training frequency: 1-2 times per week HPI HPI Chief Complaint: throat and chest burning Details: KELLI MONROY, is a 73 F who presents to the office today for follow up. She had t-score in LS spine of -2.5 She took oral Fosamax for one year. She did not tolerate this due to GERD. She has received Reclast for 3 years. She would like to continue. She is taking vitamin D. She wants her glands evaluated today: pineal gland, thymus, pancreas, pituitary, thyroid and parathyroid. She reports that her quality of life is at 1%. Her complaints include a burning sensation, like my skin is on fire of her upper extremities that includes her upper chest. Afterwards she gets a chilled feeling. This occurred once at the chiropractor's office and she felt like she might pass out. She also reports that if she sleeps on her side, she wakes up within 90 minutes with a painful, tingly arm and has to roll onto the other side. Then 90 minutes later the other arm is numb and tingly. She also has continued symptoms of GERD in her throat with hoarseness and scratchiness. She has seen GI doctors, chiropractor, rheumatology and ENT. She had FUO origin work up. These are the same complaints she had one year ago. Added today is that her skin is dry and thin. ROS Const Constitutional: No fatigue or weight change ENT ENT: Positive for difficulty swallowing; No dizziness/vertigo Cardio Cardiology: No chest pain at rest, chest pain with exertion, shortness of breath or palpitations Musc Musculoskeletal: Positive for numbness and tingling Neuro Neurology: Positive for numbness and tingling Psych Psychiatric: Positive for lack of enjoyment Gastro GI: Positive for heartburn and difficulty swallowing Skin Skin: Positive for dry skin; No wounds Endo Endocrine: No fatigue or weight change Exam Const General: cooperative, healthy appearing, comfortable, no acute distress, well developed and not cushingoid Nutritional Appearance: well nourished Orien (more content not included)... Normal [facility] DESIREE SCREENING W TOMOon 02-03 DESIREE SCREENING W MIC * * *Final Report* * * DATE OF EXAM: Feb 04 2024 11:01AM [id number] [id number] - DESIREE SCREENING W MIC / PROCEDURE REASON: Encounter for screening mammogram for malignant neoplasm of breast * * * * Physician Interpretation * * * * RESULT: [place] [address] [place] [address] #[id number] - DESIREE SCREENING W MIC HISTORY: Patient is 73 years old and is seen for screening and is asymptomatic in both breasts. The patient has a history of right breast cancer. COMPARISON STUDIES: The present examination has been compared to prior imaging studies dated 12/20/2018 (mammogram), 12/26/2019 (mammogram), 12/26/2020 (mammogram), 01/31/2022 (mammogram) and 02/02/2023 (mammogram). MAMMOGRAM TECHNIQUE: The study was acquired using full field digital technology and interpreted from soft copy. Digital Breast Tomosynthesis (DBT) images were obtained and used to assist in the interpretation of this examination. Computer-aided detection was utilized by the radiologist in the interpretation of this examination. MAMMOGRAM FINDINGS: There are scattered areas of fibroglandular density. No suspicious masses, calcifications or other abnormalities are seen in either breast. There are no significant interval changes. IMPRESSION: There is no mammographic evidence of malignancy. Routine screening mammogram is recommended. Annual mammogram will be due in 1 year. BI-RADS Category 1: Negative Interpreting Radiologist: Shahla Rivers M.D. Electronically signed on: 02/05/2024 Foot Piece Assembler: BRANDEE Transcribe Date/Time: Feb 04 2024 10:46A Dictated by: SHAHLA RIVERS MD This examination was interpreted and the report reviewed and electronically signed by: SHAHLA RIVERS MD on Feb 05 2024 10:17AM EST [id number] Normal [facility] Thyroidon 01-14-2024 Thyroid [facility] Imaging Services [address] [place] [address] Thyroid MR#: [id number] Acct: [id number] Name: KELLI MONROY Rep #: [id number] : 1950 F 73 From: Tigre tidwell MD PCP: Dr. Angel Fuller MD Status: REG CLI Study: Thyroid Date of Exam: 01/14/24 Exam# [id number] Ordering Dr: SHAHLA LOZADA [id number] INDICATION: NONTOXIC SINGLE NODULE EXAMINATION: Ultrasound US Thyroid (eg thyroid, parathyroid, parotid) TECHNIQUE: Martin scale and color doppler imaging was performed of the thyroid gland. COMPARISON: No relevant prior comparison study available FINDINGS: RIGHT THYROID LOBE: 4.7 x 1.5 x 1.5 cm. Parenchyma: The gland echotexture is homogenous. Thyroid vascularity is normal. LEFT THYROID LOBE: 3.8 x 1.2 x 1.2 cm. Parenchyma: The gland echotexture is homogenous. Thyroid vascularity is normal. ISTHMUS: 0.3 cm in maximum AP dimension. Estimated total number of nodules greater than equal to 1 cm: 0. Subcentimeter nodules are seen bilaterally. Travel Coordinator nodules are described as follows: 1. Location: Right superior Size: 0.5 x 0.3 x 0.2 cm. Nodule characteristics: Composition: Solid or almost completely solid (2). Echogenicity: Isoechoic (1). Shape: Wider than tall (0). Margins: Smooth (0). Echogenic Foci: None (0). ACR TI-RADS total points: 3. ACR TI-RADS category: 3. 2. Location: Left mid Size: 0.4 x 0.4 x 0.3 cm. Nodule characteristics: Composition: Solid or almost completely solid (2). Echogenicity: Hypoechoic (2). Shape: Wider than tall (0). Margins: Smooth (0). Echogenic Foci: None (0). ACR TI-RADS total points: 4. ACR TI-RADS category: 4. Additional similar nodules are seen measuring 0.5 cm or less. LYMPH NODES: No lymphadenopathy is seen in the tissue surrounding the thyroid gland. US/Thyroid IMPRESSION: Subcentimeter thyroid nodules. Based on size and appearance, no specific follow-up is recommended. ACR TI-RADS RECOMMENDATION REFERENCE: Ultrasound-guided fine-needle aspiration, follow-up ultrasound, no further follow-up. *TR 1 (0 points) and TR 2 (2 points): No FNA or follow-up. *TR 3 (3 points): FNA if more than or equal to 2.5 cm in maximum dimension. Follow-up ultrasound in 1, 3, and 5 years if 1.5 to 2.4 cm in maximum dimension. *TR 4 (4-6 points): FNA if more than or equal to 1.5 cm in maximum dimension. Follow-up ultrasound in 1, 2, 3, and 5 years if 1 to 1.4 cm in maximum dimension. *TR 5 (more than or equal to 7 points): FNA if more than or equal to 1 cm in maximum dimension. Follow-up ultrasound every year for 5 years if 0.5 to 0.9 cm in maximum dimension. *TR 3, TR 4, or TR 5 nodules that are below the size threshold for follow-up receive no follow-up. Electronically Signed: Tigre Allen MD at 21:30 EST , CC: Dr. Angel Fuller MD; SHAHLA LOZADA Foot Piece Assembler: Signed [facility] 01-13-2024 [facility] Telephone (OBGYWM) -------- KELLI MONROY ([id number]) 1950 F Date Time Provider Department 01/13/24 PRISCA RIVERA During your visit today, we recorded the following information about you: Erin Olguin RN 01/13/2024 11:11 AM Signed Patient called needing Mamm with MIC order. Please file. Patient has not had a yearly since 01/28/21. Only seen for problem visit. Patient asking if DM would still like her seen for annual (every 2 years with Medicare). DOT Barrios Deidre, MD 01/13/2024 12:04 PM Signed Only if she wants to be seen - had hysterectomy so unless complaints it is up to her. Erin Olguin RN 01/13/2024 12:07 PM Signed Patient notified. Transferred to [facility] to schedule mammogram. Erin Olguin RN Allergies As of Date: 01/13/2024 Noted Allergy Reaction DULOXETINE 09/14/2019 2 - Rash Date Reviewed: 09/08/2023 Reviewed by: Laura Powell MA - Fully Assessed Reason for Visit: Orders [681] Primary Visit Diagnosis:Encounter for screening mammogram for malignant neoplasm of breast [Z12.31] Order(s):DESIREE SCREENING W MIC [[id number]] Order #: [id number] FUTURE Prescriptions as of 01/13/2024 - omeprazole magnesium (PRILOSEC ORAL) Take by mouth. - COLLAGEN MISC 2 Tablespoonsful once daily. Unknown dosage - calcium/chondr/collag/gl ycosam (BEYOND BONE BROTH ORAL) Take by mouth. Bone Broth Collagen 1 Scoop per day (2 table spoons) - zoledronic acid (RECLAST) 5 mg/100 mL pgbk PREMIX piggyback Zoledronic Xxir-Ajmihjhd-Iiyxd Active 1 EACH .Route ONCE 100 February 07, 2021 11:08am onceinfuse over 20 minutes - acetaminophen (TYLENOL EX STR RAPID RELEASE ORAL) Take 1,000 mg by mouth twice daily as needed. 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 Comment on above: Performed By: #### V IDH, GFR, B12, BMP #### [address] [address] Basophils/100 WBC (Bld) 0.9 % Normal 0.0-2.5 [facility] Comment on above: Performed By: #### V IDH, GFR, B12, BMP #### [address] [address] Eosinophil, Absolute 0.0 10 3/mcL Normal 0.0-0.7 [facility] Comment on above: Performed By: #### V IDH, GFR, B12, BMP #### [place] [id number] [place] [address] Eosinophils/100 WBC (Bld) 0.7 % Normal 0.0-6.0 [facility] Comment on above: Performed By: #### V IDH, GFR, B12, BMP #### [address] [address] Lymphocyte, Absolute 1.0 10 3/mcL Normal 0.9-4.3 [facility] Comment on above: Performed By: #### V IDH, GFR, B12, BMP #### [address] [address] Lymphocytes/100 WBC (Bld) 15.4 % Low 20.0-40.0 [facility] Comment on above: Performed By: #### V IDH, GFR, B12, BMP #### [address] [address] Monocyte, Absolute 0.8 10 3/mcL Normal 0.1-1.[address] [facility] Comment on above: Performed By: #### V IDH, GFR, B12, BMP #### [address] [address] Monocytes/100 WBC (Bld) 12.9 % Normal 2.0-13.0 [facility] Comment on above: Performed By: #### V IDH, GFR, B12, BMP #### [address] [address] Neutrophils/100 WBC (Bld) 70.1 % Normal 50.0-75.0 [facility] Comment on above: Performed By: #### V IDH, GFR, B12, BMP #### [address] [address] .GFRon 12-08-2023 GFR Non- >60 Normal [facility] Comment on above: Result Comment: GFR Population mean for , Non- Americans Ages 20-29 = 116 mL/min/1.73 sq.m. Ages 30-39 = 107 mL/min/1.73 sq.m. Ages 40-49 = 99 mL/min/1.73 sq.m. Ages 50-59 = 93 mL/min/1.73 sq.m. Ages 60-69 = 85 mL/min/1.73 sq.m. Ages 70+ = 75 mL/min/1.73 sq.m. Chronic Kidney Disease: Less than 60 mL/min/1.73 square meters End Stage Renal Disease: Less than 15 mL/min/1.73 square meters Performed By: #### V IDH, GFR, B12, BMP #### [address] [address] GFR >[address] [facility] Comment on above: Result Comment: GFR Population mean for , Non- Americans Ages 20-29 = 116 mL/min/1.73 sq.m. Ages 30-39 = 107 mL/min/1.73 sq.m. Ages 40-49 = 99 mL/min/1.73 sq.m. Ages 50-59 = 93 mL/min/1.73 sq.m. Ages 60-69 = 85 mL/min/1.73 sq.m. Ages 70+ = 75 mL/min/1.73 sq.m. Chronic Kidney Disease: Less than 60 mL/min/1.73 square meters End Stage Renal Disease: Less than 15 mL/min/1.73 square meters Performed By: #### V IDH, GFR, B12, BMP #### [address] [address] .NEUABSon 12-08-2023 Neutrophil, Absolute 4.6 10 3/mcL Normal 2.3-8.1 [facility] Comment on above: Performed By: #### V IDH, GFR, B12, BMP #### [place] [address] B12on 12-08-2023 Cobalamin (Vitamin B12) [Mass/Vol] 352 pg/mL Normal 211-911 [facility] Comment on above: Performed By: #### V IDH, GFR, B12, BMP #### [address] [address] CBCon 12-08-2023 Erythrocyte distribution width (RBC) [Ratio] 13.4 % Normal 11.5-15.5 [facility] Comment on above: Performed By: #### V IDH, GFR, B12, BMP #### [place] [address] Hematocrit (Bld) [Volume fraction] 36.7 % Normal 34.0-46.0 [facility] Comment on above: Performed By: #### V IDH, GFR, B12, BMP #### [place] [address] Hgb 12.4 G/dL Normal 12.0-16.0 [facility] Comment on above: Performed By: #### V IDH, GFR, B12, BMP #### [address] [address] MCH (RBC) [Entitic mass] 32.1 pg Normal 27.0-33.0 [facility] Comment on above: Performed By: #### V IDH, GFR, B12, BMP #### [place] [id number] MCHC 33.7 G/dL Normal 32.0-36.0 [facility] Comment on above: Performed By: #### V IDH, GFR, B12, BMP #### [place] [address] MCV (RBC) [Entitic vol] 95.1 fL Normal 80.0-99.0 [facility] Comment on above: Performed By: #### V IDH, GFR, B12, BMP #### [place] [address] Platelet 266 10 3/mcL Normal 150-450 [facility] Comment on above: Performed By: #### V IDH, GFR, B12, BMP #### [place] [address] Platelet mean volume (Bld) [Entitic vol] 7.8 fL Normal 6.6-10.5 [facility] Comment on above: Performed By: #### V IDH, GFR, B12, BMP #### [place] [address] RBC 3.86 10 6/mcL Low 4.10-5.30 [facility] Comment on above: Performed By: #### V IDH, GFR, B12, BMP #### [place] [address] WBC 6.5 10 3/mcL Normal 4.5-10.8 [facility] Comment on above: Performed By: #### V IDH, GFR, B12, BMP #### [place] [address] CMPon 12-08-2023 Albumin Level 3.6 G/dL Normal 3.2-4.8 [facility] Comment on above: Performed By: #### V IDH, GFR, B12, BMP #### [place] [id number] Albumin/Globulin [Mass ratio] 1.3 {ratio} Normal 0.9-1.6 [facility] Comment on above: Performed By: #### V IDH, GFR, B12, BMP #### [address] [address] ALP [Catalytic activity/Vol] 57 U/L Normal 38-126 [facility] Comment on above: Performed By: #### V IDH, GFR, B12, BMP #### [place] [id number] ALT [Catalytic activity/Vol] 12 U/L Normal 10-49 [facility] Comment on above: Performed By: #### V IDH, GFR, B12, BMP #### [place] [id number] AST [Catalytic activity/Vol] 19 U/L Normal 8-34 [facility] Comment on above: Performed By: #### V IDH, GFR, B12, BMP #### [place] [id number] Bili Total 0.60 mg/dL Normal 0.20-1.20 [facility] Comment on above: Result Comment: Use of this assay is not recommended for patients undergoing treatment with eltrombopag due to the potential for falsely elevated results. Performed By: #### V IDH, GFR, B12, BMP #### [place] [id number] BUN/Creatinine Ratio 15.3 ratio Normal 10.0-22.[address] [facility] Comment on above: Performed By: #### V IDH, GFR, B12, BMP #### [place] [id number] Calcium [Mass/Vol] 9.2 mg/dL Normal 8.7-10.4 [facility] Comment on above: Performed By: #### V IDH, GFR, B12, BMP #### [place] [id number] Chloride [Moles/Vol] 104 mmol/L Normal 98-[address] [facility] Comment on above: Performed By: #### V IDH, GFR, B12, BMP #### [address] [address] CO2 [Moles/Vol] 27 mmol/L Normal 22-32 [facility] Comment on above: Performed By: #### V IDH, GFR, B12, BMP #### [address] [address] Creatinine [Mass/Vol] 0.59 mg/dL Normal 0.50-1.20 [facility] Comment on above: Result Comment: Test ing performed on MyStream analyzer using enzymatic creatinine methodology. Performed By: #### V IDH, GFR, B12, BMP #### [address] [address] Electrolyte Balance 4.0 mEq/L Normal 4.0-15.0 [facility] Comment on above: Performed By: #### V IDH, GFR, B12, BMP #### [place] [id number] Globulin 2.8 G/dL Normal 1.5-3.8 [facility] Comment on above: Performed By: #### V IDH, GFR, B12, BMP #### [address] [address] Glucose [Mass/Vol] 90 mg/dL Normal 82-115 [facility] Comment on above: Performed By: #### V IDH, GFR, B12, BMP #### [address] [address] Potassium [Moles/Vol] 4.5 mmol/L Normal 3.5-5.0 [facility] Comment on above: Performed By: #### V IDH, GFR, B12, BMP #### [address] [address] Sodium [Moles/Vol] 135 mmol/L Low 136-145 [facility] Comment on above: Performed By: #### V IDH, GFR, B12, BMP #### [place] [id number] Total Protein 6.4 G/dL Normal 5.7-8.2 [facility] Comment on above: Result Comment: No te - New Reference Range in effect 19 Performed By: #### V IDH, GFR, B12, BMP #### [address] [address] Urea nitrogen [Mass/Vol] 9.0 mg/dL Normal 8.0-22.0 [facility] Comment on above: Performed By: #### V IDH, GFR, B12, BMP #### [address] [address] LIPIDon 12-08-2023 Cholesterol [Mass/Vol] 216 mg/dL High 50-199 [facility] Comment on above: Result Comment: Chol esterol Reference Interval: Less than 200 Desirable 200-239 Borderline high risk 240 and above High risk Performed By: #### V IDH, GFR, B12, BMP #### [place] [address] Cholesterol in HDL [Mass/Vol] 85 mg/dL High 40-59 [facility] Comment on above: Performed By: #### V IDH, GFR, B12, BMP #### [place] [address] Cholesterol in LDL [Mass/Vol] 116 mg/dL Normal 0-129 [facility] Comment on above: Performed By: #### V IDH, GFR, B12, BMP #### [place] [address] Triglyceride [Mass/Vol] 76 mg/dL Normal 3-149 [facility] Comment on above: Performed By: #### V IDH, GFR, B12, BMP #### [address] [address] TSHon 12-08-2023 TSH 0.849 mIU/mL Normal 0.550-4.780 [facility] Comment on above: Result Comment: No te - New Reference Range in effect 19 Performed By: #### V IDH, GFR, B12, BMP #### [address] [address] VIDHon 12-08-2023 Vit. D 25-Hydroxy 28.3 ng/mL Normal [facility] Comment on above: Result Comment: Inte rpretive Values Based on Total 25(OH)D: Severe Deficiency <20 ng/mL Mild to Moderate Deficiency 20-30 ng/mL Optimum Levels 30-100 ng/mL Toxicity Possible >100 ng/mL Performed By: #### V IDH, GFR, B12, BMP #### [facility] [address] [place] [address] Urinalysis, Completeon 11-20 BACTERIA 0 SEEN Normal None Seen [facility] Comment on above: Order Comment: CLEAN CATCH Performed By: #### L 500.4050, L100.0100, L501.4020 #### [facility] [address] [place], [address] EPI,SQUAMOUS 0 SEEN Normal 5-10 [facility] Comment on above: Order Comment: CLEAN CATCH Performed By: #### L 500.4050, L100.0100, L501.4020 #### [facility] [address] [place], [address] Mucus Ql (Urine sed) 0 SEEN Normal [facility] Comment on above: Order Comment: CLEAN CATCH Performed By: #### L 500.4050, L100.0100, L501.4020 #### [facility] [address] [place], [address] RBC 0 SEEN Normal 0-5 [facility] Comment on above: Order Comment: CLEAN CATCH Performed By: #### L 500.4050, L100.0100, L501.4020 #### [facility] [address] [place], [address] WBC 0 SEEN Normal 0-5 [facility] Comment on above: Order Comment: CLEAN CATCH Performed By: #### L 500.4050, L100.0100, L501.4020 #### [facility] [address] [place], [address] 12 Lead EKGon 11-20-2023 12 Lead EKG [facility] Cardiovascular Services [address] [place] [address] 12 Lead EKG 11/20/232236 MR#: [id number] Acct: [id number] Name: KELLI MONROY Rep #: [id number] : 1950 73 From: Marco Obrien MD Attending Dr: Status: DEP ER Ordering Dr: Fabien Mccann DO Date: 11/20/23 Location: ED Sex: F C Admitted: Test Reason : PAIN Blood Pressure : / mmHG Vent. Rate : 055 BPM Atrial Rate : 055 BPM P-R Int : 160 ms QRS Dur : 086 ms QT Int : 442 ms P-R-T Axes : 052 -10 033 degrees QTc Int : 422 ms Sinus bradycardia with sinus arrhythmia Nonspecific ST abnormality Abnormal ECG Confirmed by MICAH RETANA, MARCO ([id number]), publishing editor PALLAVI ESTEBAN ([id number]) on 11/24/2023 2:17:37 PM Referred By: Confirmed By:MARCO OBRIEN MD 11/24/23 1417 Date Marco Obrien MD CC: Dr. Angel Fuller MD; Dr. Fabien Mccann DO Signed Normal [facility] CBC W/Diff, Automatedon - Absolute Lymph 1.27 X10 3/uL Normal 0.83-4.51 [facility] Comment on above: Performed By: #### L 500.4050, L100.0100, L501.4020 #### [facility] [address] [place], [address] Absolute Neut 4.3 X10 3/uL Normal 2.0-7.7 [facility] Comment on above: Performed By: #### L 500.4050, L100.0100, L501.4020 #### [facility] [address] [place], [address] Basophils/100 WBC (Bld) 0.6 % Normal 0-1 [facility] Comment on above: Performed By: #### L 500.4050, L100.0100, L501.4020 #### [facility] [address] [place], [address] Eosinophils/100 WBC (Bld) 1.4 % Normal 0-5 [facility] Comment on above: Performed By: #### L 500.4050, L100.0100, L501.4020 #### [facility] [address] [place], [address] Erythrocyte distribution width (RBC) [Ratio] 11.9 % Normal 11.6-14.6 [facility] Comment on above: Performed By: #### L 500.4050, L100.0100, L501.4020 #### [facility] [address] [place], [address] Hematocrit (Bld) [Volume fraction] 38.7 % Normal 37-47 [facility] Comment on above: Performed By: #### L 500.4050, L100.0100, L501.4020 #### [facility] [address] [place], [address] Hemoglobin (Bld) [Mass/Vol] 12.9 g/dL Normal 12.0-15.0 [facility] Comment on above: Performed By: #### L 500.4050, L100.0100, L501.4020 #### [facility] [address] [place], [address] IG% 0.300 Normal 0.0-0.9 [facility] Comment on above: Result Comment: IG% - Immature Granulocytes (promyelocytes, myelocytes and metamyelocytes) > 1% indicates that a LEFT SHIFT is Present. Performed By: #### L 500.4050, L100.0100, L501.4020 #### [facility] [address] [place], [address] Lymphocytes/100 WBC (Bld) 19.7 % Normal 19-41 [facility] Comment on above: Performed By: #### L 500.4050, L100.0100, L501.4020 #### [facility] [address] [place], [address] MCH (RBC) [Entitic mass] 30.9 pg Normal 27.0-32.0 [facility] Comment on above: Performed By: #### L 500.4050, L100.0100, L501.4020 #### [facility] [address] [place], [address] MCHC (RBC) [Mass/Vol] 33.3 g/dL Normal 32-36 [facility] Comment on above: Performed By: #### L 500.4050, L100.0100, L501.4020 #### [facility] [address] [place], [address] MCV (RBC) [Entitic vol] 92.8 fL Normal 81-99 [facility] Comment on above: Performed By: #### L 500.4050, L100.0100, L501.4020 #### [facility] [address] [place], [address] Monocytes/100 WBC (Bld) 11.9 % High 0-10 [facility] Comment on above: Performed By: #### L 500.4050, L100.0100, L501.4020 #### [facility] [address] [place], [address] Neutrophils/100 WBC (Bld) 66.1 % Normal 47-70 [facility] Comment on above: Performed By: #### L 500.4050, L100.0100, L501.4020 #### [facility] [address] [place], [address] Nucleated RBC (Bld) [#/Vol] 0 10*3/uL Normal 0-5 [facility] Comment on above: Performed By: #### L 500.4050, L100.0100, L501.4020 #### [facility] [address] [place], [address] Platelet mean volume (Bld) [Entitic vol] 8.9 fL Normal 6.2-12.0 [facility] Comment on above: Performed By: #### L 500.4050, L100.0100, L501.4020 #### [facility] [address] [place], [address] Platelets (Bld) [#/Vol] 299 10*3/uL Normal 150-450 [facility] Comment on above: Performed By: #### L 500.4050, L100.0100, L501.4020 #### [facility] [address] [place], [address] RBC (Bld) [#/Vol] 4.17 10*6/uL Low 4.2-5.4 [facility] Comment on above: Performed By: #### L 500.4050, L100.0100, L501.4020 #### [facility] [address] [place], [address] RDW SD 41.1 fl Normal 35.1-43.9 [facility] Comment on above: Performed By: #### L 500.4050, L100.0100, L501.4020 #### [facility] [address] [place], [address] WBC (Bld) [#/Vol] 6.5 10*3/uL Normal 4.4-11.0 [facility] Comment on above: Performed By: #### L 500.4050, L100.0100, L501.4020 #### [facility] [address] [place], [address] CTA Head AND Neck W/ Contras ton 09-27-2024 CTA Head AND Neck W/ Contrast [facility] Imaging Services [address] [place], [place] [address] CTA Head AND Neck W/ Contrast MR#: [id number] Acct: [id number] Name: KELLI MONROY Rep #: [id number] : 1950 F 73 From: Sea Mcadams MD PCP: Dr. Angel Fuller MD Status: REG ER Study: CTA Head AND Neck W/ Contrast Date of Exam: Exam# [id number] Ordering Dr: Fabien Mccann DO [id number] EXAM: CT ANGIOGRAPHY HEAD AND NECK WITH INTRAVENOUS CONTRAST CLINICAL INDICATION: neck pain chiropractic treatment TECHNIQUE: [place] [facility] [place]/head and neck CT angiography protocol performed with intravenous contrast. This CT exam was performed using one or more of the following dose reduction techniques: automated exposure control, adjustment of the mA and/or kV according to patient size, and/or use of iterative reconstruction technique. MIP reconstructed images were created and reviewed. CONTRAST: IV 100mL Isovue-370 RADIATION DOSE: CTDIvol = 32.79 mGy, DLP = 1473.13 mGy-cm COMPARISON: No relevant prior studies available. FINDINGS: HEAD: RIGHT ANTERIOR CEREBRAL ARTERY: Unremarkable. No occlusion or significant stenosis. Anterior communicating artery is present. No aneurysm. RIGHT MIDDLE CEREBRAL ARTERY: Unremarkable. No occlusion or significant stenosis. No aneurysm. RIGHT POSTERIOR CEREBRAL ARTERY: Unremarkable. No occlusion or significant stenosis. No aneurysm. RIGHT INTRACRANIAL INTERNAL CAROTID ARTERY: Unremarkable. No significant stenosis. No dissection or occlusion. RIGHT INTRACRANIAL VERTEBRAL ARTERY: Unremarkable. No significant stenosis. No dissection or occlusion. LEFT ANTERIOR CEREBRAL ARTERY: Unremarkable. No occlusion or significant stenosis. No aneurysm. LEFT MIDDLE CEREBRAL ARTERY: Unremarkable. No occlusion or significant stenosis. No aneurysm. LEFT POSTERIOR CEREBRAL ARTERY: Unremarkable. No occlusion or significant stenosis. No aneurysm. LEFT INTRACRANIAL INTERNAL CAROTID ARTERY: Unremarkable. No significant stenosis. No dissection or occlusion. LEFT INTRACRANIAL VERTEBRAL ARTERY: Unremarkable. No significant stenosis. No dissection or occlusion. BASILAR ARTERY: Unremarkable. No occlusion or significant stenosis. No aneurysm. OTHER VASCULATURE: No vascular malformation. NECK: RIGHT COMMON CAROTID ARTERY: Unremarkable. No significant stenosis. No dissection or occlusion. RIGHT EXTRACRANIAL INTERNAL CAROTID ARTERY: Mild stenosis proximally, 25%. No dissection or occlusion. RIGHT EXTERNAL CAROTID ARTERY: Unremarkable. No occlusion. RIGHT EXTRACRANIAL VERTEBRAL ARTERY: Unremarkable. No significant stenosis. No dissection or occlusion. LEFT COMMON CAROTID ARTERY: Unremarkable. No significant stenosis. No dissection or occlusion. LEFT EXTRACRANIAL INTERNAL CAROTID ARTERY: Unremarkable. No significant stenosis. No dissection or occlusion. LEFT EXTERNAL CAROTID ARTERY: Unremarkable. No occlusion. LEFT EXTRACRANIAL VERTEBRAL ARTERY: Unremarkable. No significant stenosis. No dissection or occlusion. BRACHIOCEPHALIC AND SUBCLAVIAN ARTERIES: Unremarkable as visualized. No occlusion or significant stenosis. LUNG APICES: Unremarkable as visualized. HEAD and NECK: BONES/JOINTS: Unremarkable. No discrete lytic or blastic abnormalities. SOFT TISSUES: Unremarkable. CAROTID STENOSIS REFERENCE USING NASCET CRITERIA: % ICA stenosis = (1 - narrowest ICA diameter/diameter of distal cervical ICA) x 100. Mild - <50% stenosis. Moderate - 50-69% stenosis. Severe - 70-94% stenosis. Near occlusion - 95-99% stenosis. Occluded - 100% stenosis. * A single impression for all exams can be found at the end of this report EXAM: CT HEAD WITHOUT INTRAVENOUS CONTRAST CLINICAL INDICATION: neck pain chiropractic treatment TECHNIQUE: Multiple axial images were obtained of the head without intravenous contrast. This CT exam was performed using one or more of the following dose reduction techniques: automated exposure control, adjustment of the mA and/or kV according to patient size, and/or use of iterative reconstruction technique. CONTRAST: IV 100mL Isovue-370 RADIATION DOSE: CTDIvol = 32.79 mGy, DLP = 1473.13 mGy-cm COMPARISON: No relevant prior studies available. FINDINGS: BRAIN AND EXTRA-AXIAL SPACES: Unremarkable. No intra- or extra-axial hemorrhage. No evidence of acute infarct. No intracranial mass or mass effect. There is preservation of the aguila/white matter interface. Posterior fossa structures are unremarkable. Ventricles are appropriate for age. No hydrocephalus. Basal cisterns are patent. BONES/JOINTS: Unremarkable. No discrete lytic or blastic abnormalities. SINUSES: Unremarkable as visualized. Clear. MASTOID AIR CELLS: Unremarkable. Clear. ORBITS: Visua (more content not included)... Normal [facility] Comprehensive Metabolic Prof ilon 11-20-2023 Albumin [Mass/Vol] 4.0 g/dL Normal 3.2-5.0 [facility] Comment on above: Order Comment: 'TROP ' Serial specimen #1, #2 or #3: 1 Performed By: #### L 500.4050, L100.0100, L501.4020 #### [facility] [address] [place], [address] Albumin/Globulin [Mass ratio] 1.2 {ratio} Normal 0.9-2.4 [facility] Comment on above: Order Comment: 'TROP ' Serial specimen #1, #2 or #3: 1 Performed By: #### L 500.4050, L100.0100, L501.4020 #### [facility] [address] [place], [address] ALK P 65 U/L Normal 45-117 [facility] Comment on above: Order Comment: 'TROP ' Serial specimen #1, #2 or #3: 1 Performed By: #### L 500.4050, L100.0100, L501.4020 #### [facility] [address] [place], [address] ALT [Catalytic activity/Vol] 17 U/L Normal 13-56 [facility] Comment on above: Order Comment: 'TROP ' Serial specimen #1, #2 or #3: 1 Performed By: #### L 500.4050, L100.0100, L501.4020 #### [facility] [address] [place], [address] AST [Catalytic activity/Vol] 14 U/L Low 15-37 [facility] Comment on above: Order Comment: 'TROP ' Serial specimen #1, #2 or #3: 1 Performed By: #### L 500.4050, L100.0100, L501.4020 #### [facility] [address] [place], [address] Bilirubin [Mass/Vol] 0.60 mg/dL Normal 0.20-1.00 [facility] Comment on above: Order Comment: 'TROP ' Serial specimen #1, #2 or #3: 1 Result Comment: For patients on eltrombopag therapy, use of Dimension [place] TBIL is not recommended. Performed By: #### L 500.4050, L100.0100, L501.4020 #### [facility] [address] [place], [address] BUN/CRE 9.7 RATIO Low 10-20 [facility] Comment on above: Order Comment: 'TROP ' Serial specimen #1, #2 or #3: 1 Performed By: #### L 500.4050, L100.0100, L501.4020 #### [facility] [address] [place], [address] CA,Total 9.1 mg/dL Normal 8.5-10.1 [facility] Comment on above: Order Comment: 'TROP ' Serial specimen #1, #2 or #3: 1 Performed By: #### L 500.4050, L100.0100, L501.4020 #### [facility] [address] [place], [address] Chloride [Moles/Vol] 102 mmol/L Normal 98-107 [facility] Comment on above: Order Comment: 'TROP ' Serial specimen #1, #2 or #3: 1 Performed By: #### L 500.4050, L100.0100, L501.4020 #### [facility] [address] [place], [address] CO2 [Moles/Vol] 26.0 mmol/L Normal 21.0-32.0 [facility] Comment on above: Order Comment: 'TROP ' Serial specimen #1, #2 or #3: 1 Performed By: #### L 500.4050, L100.0100, L501.4020 #### [facility] [address] [place], [address] Creatinine [Mass/Vol] 0.62 mg/dL Normal 0.55-1.02 [facility] Comment on above: Order Comment: 'TROP ' Serial specimen #1, #2 or #3: 1 Result Comment: The validity of the calculated GFR GFRAA in patients over 70 years has not been determined. Clinical correlation is essential. Performed By: #### L 500.4050, L100.0100, L501.4020 #### [facility] [address] [place], [address] ECRCL 58.99 ml/min Normal [facility] Comment on above: Order Comment: 'TROP ' Serial specimen #1, #2 or #3: 1 Performed By: #### L 500.4050, L100.0100, L501.4020 #### [facility] [address] [place], [address] EST GFR - AA 121 mL/min Normal >60 [facility] Comment on above: Order Comment: 'TROP ' Serial specimen #1, #2 or #3: 1 Result Comment: Afri can [place] GFR Calc Performed By: #### L 500.4050, L100.0100, L501.4020 #### [facility] [address] [place], [address] GAP 6 Normal 5-15 [facility] Comment on above: Order Comment: 'TROP ' Serial specimen #1, #2 or #3: 1 Performed By: #### L 500.4050, L100.0100, L501.4020 #### [facility] [address] [place], [address] GFR/1.73 sq M.predicted among non-blacks MDRD (S/P/Bld) [Vol rate/Area] 100 mL/min/{1.73_m2} Normal >60 [facility] Comment on above: Order Comment: 'TROP ' Serial specimen #1, #2 or #3: 1 Result Comment: Non- GFR Calc Performed By: #### L 500.4050, L100.0100, L501.4020 #### [facility] [address] [place], [address] Globulin (S) [Mass/Vol] 3.3 g/dL Normal 2.2-4.2 [facility] Comment on above: Order Comment: 'TROP ' Serial specimen #1, #2 or #3: 1 Performed By: #### L 500.4050, L100.0100, L501.4020 #### [facility] [address] [place], [address] Glucose [Mass/Vol] 102 mg/dL Normal 74-106 [facility] Comment on above: Order Comment: 'TROP ' Serial specimen #1, #2 or #3: 1 Result Comment: Fast ing Glucose result from 100 to 125 mg/dL suggests IMPAIRED HOMEOSTASIS per A.D.A. criteria. Performed By: #### L 500.4050, L100.0100, L501.4020 #### [facility] [address] [place], [address] Potassium [Moles/Vol] 3.5 mmol/L Normal 3.5-5.1 [facility] Comment on above: Order Comment: 'TROP ' Serial specimen #1, #2 or #3: 1 Performed By: #### L 500.4050, L100.0100, L501.4020 #### [facility] [address] [place], [address] Sodium [Moles/Vol] 134 mmol/L Low 136-145 [facility] Comment on above: Order Comment: 'TROP ' Serial specimen #1, #2 or #3: 1 Performed By: #### L 500.4050, L100.0100, L501.4020 #### [facility] [address] [place], [address] T PROT 7.3 g/dL Normal 6.4-8.2 [facility] Comment on above: Order Comment: 'TROP ' Serial specimen #1, #2 or #3: 1 Performed By: #### L 500.4050, L100.0100, L501.4020 #### [facility] [address] [place], [address] Urea nitrogen [Mass/Vol] 6 mg/dL Low 7-18 [facility] Comment on above: Order Comment: 'TROP ' Serial specimen #1, #2 or #3: 1 Performed By: #### L 500.4050, L100.0100, L501.4020 #### [facility] [address] [place], [address] Emergency Department Summary on 11-20-2023 Emergency Department Summary [facility] Medical Records Department [address] [place] [address] Emergency Department Summary 11/20/23 MR#: [id number] Acct: [id number] Name: KELLI MONROY Rep #: [id number] : 1950 73 From: Fabien Mccann DO PCP: Dr. Angel Fuller MD Status:REG ER Location: ED HPI History of Present Illness Chief Complaint: Hypertension Narrative Narrative: Patient is a 73-year-old female with past medical history fibromyalgia, hypertension, hyperparathyroidism GERD, chronic neck pain follows with chiropractor who presents to the emergency department chief complaint of hypertension. Patient states that starting today earlier this morning she noted that her blood pressure was elevated and ranging high throughout the day. States that she tried to take some Tylenol for her neck pain however notes that this did not help and her blood pressure remained elevated which prompted her here for the valuation management. Patient states that she followed with her chiropractor had a treatment yesterday and had her neck adjusted where this was cracked. Patient states her pain is slightly worse after the treatment. [facility] Medical History Acute pharyngitis Burn of right upper extremity Atherosclerosis of coronary artery of [place] heart without angina pectoris Fibromyalgia Menopausal hot flushes Symptoms of gastroesophageal reflux Hypertension Hyperparathyroidism Paresthesia Skin cancer GERD (gastroesophageal reflux disease) Osteopenia Osteoarthritis Heart murmur Hormone deficiency High cholesterol Headache Gastrointestinal problem Cataracts, bilateral Breast cancer Breast lump UTI (urinary tract infection) Back problem Arthritis Hx of breast cancer Home Medications ???Medication ???Instructions ???Recorded ???Last Taken ???Type zoledronic acid 5 mg/100 mL in 1 ea .Route ONCE #100 mL 02/19/23 Unknown Rx mannitol 5 %-water intravenous piggybck acetaminophen 500 mg tablet 1,000 mg PO BID PRN Pain 06/10/23 Unknown History (Tylenol Extra Strength) amlodipine 2.5 mg tablet 2.5 mg PO DAILY 11/20/23 Unknown History pantoprazole 40 mg tablet,delayed 40 mg PO DAILY 11/20/23 Unknown History release prednisone 5 mg tablet 5 mg PO DAILY 11/20/23 Unknown History Allergy/AdvReac Type Severity Reaction Status Date / Time duloxetine (From Cymbalta) AdvReac Mild dizziness Verified 11/20/23 18:49 Family History Father Heart disease Mother Heart disease Osteoporosis Thyroid disorder Brother Heart disease Hypertension Hypercholesterolemia Daughter Cancer Sister Arthritis Hypertension Hypercholesterolemia Osteoporosis Thyroid disorder Surgical History History of left heart catheterization (08/16/20) History of endoscopy History of colonoscopy History of lumpectomy Hx of cataract surgery H/O: hysterectomy Social History Smoking Status: Never smoker alcohol intake: never substance use type: does not use what type of physical activity do you participate in: walking and weight training frequency: 1-2 times per week ROS ROS ED ROS Narrative Constitutional: Denies any fevers, chills, headaches, lightness, dizziness Eyes: Denies change in vision double vision blurry vision Cardiovascular: Denies chest pain or palpitations Respiratory: Denies coughing wheezing shortness of breath Abdomen: Denies abdominal pain nausea vomit diarrhea : Denies any urinary symptoms Neurological: Denies numbness, weakness, tingling Musculoskeletal: Complains of neck pain as noted above Skin: Denies rashes lesions EXAM Physical Exam Narrative Exam Narrative: General: Patient lying in bed rest comfortably did not appear to be acute distress Head: Atraumatic, normocephalic Eyes: PERRL bilaterally, EOMI bilateral, no conjunctival injection noted Neck: Soft, supple, trachea midline, patient has full range of motion of her neck, no concern for meningitis, no tenderness palpation midline cervical spine Cardiovascular: Regular rate and rhythm no murmurs gallops rubs noted Respiratory: Clear to auscultation bilaterally no rales rhonchi or wheezes noted Abdomen: Soft, nondistended, nontender to palpation Extremities: +5/5 strength noted in the bilateral lower extremities, no pedal edema on exam, radial pulses +2/4 in the bilateral upper extremities Neurological: Patient following commands knew that she was at [facility] years 2023 Skin: Warm, dry, tact Const Vital Signs: 11/20/23 18:49 11/20/23 20:47 11/20/23 22:00 Temperature 96.7 F L Temperature Source Temporal Pulse Rate 79 69 67 Respiratory (more content not included)... Normal [facility] L501.4020on 11-20-2023 TROPONIN-I HS 6 pg/mL Normal 3.0-54.0 [facility] Comment on above: Order Comment: 'TROP ' Serial specimen #1, #2 or #3: 1 Result Comment: Amee bustos Note: New Test Units and Gender Specific Reference Ranges. For more information see Policy Stat Procedure [place] High Sensitivity Troponin (TNIH) and attachments. Performed By: #### L 500.4050, L100.0100, L501.4020 #### [facility] [address] [facility] [place], [address] Modified Barium Swallow Stud yon 11-19-2023 Modified Barium Swallow Study [facility] Speech Pathology [address] [place] [address] Modified Barium Swallow Study MR#: [id number] Acct: [id number] Name: KELLI MONROY Rep #: [id number] : 1950 73 From: Amy Morris M.A., [facility]-SPECIFICATIONS CHECKER Modified Barium Swallow Patient Information Study Date: 11/19/23 Study Time: 13:00 Direct Billable Minutes: 87 Total Minutes procedure reportin Diagnosis: Dysphagia R13.10 Referring Physician: Angel Fuller Reason for Referral: Objectively assess swallow function, assess risk for aspiration, and determine recommendations for least restrictive diet textures and compensatory strategies to improve safety of swallow. Medical History: PMH: acute pharyngitis, GERD managed by pantoprazole for the past 1.5 months, breast cancer s/p sx and radiation, DDD, osteoporosis, osteoarthritis. Patient reports burning sensation in throat (24/7) and chest (anytime except when stomach is empty) for the past 1.5 months. Pt has established care w/ Dr. Marcano who began with medication management of GERD. Follow up w/ GI is in the process of being scheduled. Pt feels that food/drinks get caught at the level of her chest. She denies regurgitation w/ food/drink. She does have a bad taste in her mouth all the time. PCP referred her for MBSS due to persistent burning sensation in throat despite use of pantoprazole. Current Diet Ordered: Regular textures / Thin liquids Dentition: WNL Mental Status: WNL Respiratory Status: Oxygenating on Room Air Penetration-Aspiration Scale Penetration-Aspiration Scale: OBJECTIVE ASSESSMENT OF SWALLOW FUNCTION (QUANTITATIVE ??? PER TRIAL): PENETRATION / ASPIRATION SCALE (LYON): 1 = does not enter airway 2 = enters airway/above vocal folds/ejected 3 = enters airway/above vocal folds/not ejected 4 = enters airway/contacts vocal folds/ejected 5 = enters airway/contacts vocal folds/not ejected 6 = enters airway/below vocal folds/ejected 7 = enters airway/below vocal folds/not ejected despite effort 8 = enters airway/below vocal folds/no effort VIDEOFLOROSCOPIC SCALE SCORE (LYON): Grade I = aspiration of material that has penetrated into the laryngeal vestibule, intact cough reflex Grade II = aspiration < 10 % of the bolus, intact cough reflex Grade III = aspiration of < 10 % of the bolus, reduced cough reflex or aspiration of > 10 % of the bolus, intact cough reflex Grade IV = aspiration of > 10 % of the bolus, reduced cough reflex Penetration-Aspiration Scale Score Thin Liquid via teaspoon: Result: 1= does not enter airway Thin Liquid via teaspoon Trial 2: Result: 1= does not enter airway Thin Liquid via large single sip: cup: Result: 1= does not enter airway Thin Liquid via sequential sips: cup: Result: 1= does not enter airway Comment: Esophageal screen - Retention of thin liquids throughout the mid and lower esophagus w/ retrograde flow. Pudding via teaspoon: Result: 1= does not enter airway Comment: Esophageal screen - Retention of pudding in upper-mid esophagus and lower esophagus. 1/2 Cookie: Result: 1= does not enter airway Comment: Esophageal screen - Retention of cookie in lower esophagus w/ retrograde flow. Thin Liquid via single sip: straw: Result: 1= does not enter airway Oral Phase Tongue Control During Bolus Hold: Posterior escape of greater than half of bolus Bolus Preparation/Mastication: Timely and efficient chewing and mashing (posterior loss to the pyriforms) Bolus Transport/Lingual Motion: Delayed initiation of tongue motion Oral Residue: Trace residue lining oral structures Pharyngeal Phase Initiation of Pharyngeal Swallow: Bolus head in pyriforms Soft Palate Elevation: Trace column of contrast/air between soft palate and pharyngeal wall Laryngeal Elevation: Comp. Superior move thyroid cart w/comp. apprx arytenoid cart-epig pet Anterior Hyoid Excursion: Partial anterior movement Epiglottic Movement: Complete inversion Laryngeal Vestibule Closure at Height of Swallow: Complete; no air/contrast in laryngeal vestibule Pharyngeal Stripping Wave: Present - complete Pharyngoesophageal Segment Opening: Complete distension and complete duration; no obstruction of flow Tongue Base Retraction: Narrow column of contrast between tongue base post. pharyngeal wall Pharyngeal Residue: Trace residue within or on pharyngeal structures Diagnosis/Impression Diagnosis: Esophageal dysphagia R13.14 Impression: Oropharyngeal swallow function grossly WNL. Pt does have posterior loss of various consistencies to the pyriforms prior to swallow onset; however, she demonstrates good airway closure during the swallow evidenced by no laryngeal penetration or aspiration throughout the study. Trace oral and pharyngeal residues after the swallow. The esophageal phase is primarily marked by... -Retention of thin liquids, pudding, and cookie. Retrograde flow of thin liquids and cook (more content not included)... [facility] Telephone (OBGYWM) -------- KELLI MONROY ([id number]) 1950 F Date Time Provider Department 11/12/23 GUY GONZALEZ During your visit today, we recorded the following information about you: Nikia Pacheco RN 11/12/2023 3:07 PM Signed Patient received bill for thyroid labs done on 06/11/23. Medicare told her they were billed wrong. Diagnosis code was for screening for thyroid disorder. She was c/o of a new swallowing sensation and accepted the thyroid screening for that. Is there any other diagnosis code that can be added to those labs? Patient thinks her secondary coverage should case picker the remainder of the bill, but just in case it doesn't. [employer] Tsai Emily, APRN.CNP 11/12/2023 3:10 PM Signed Impaired Swallowing code added on visit. RUFUS Suggs Trisha, RN 11/12/2023 3:45 PM Signed Faxed updated diagnosis to billing dept. Patient notified. Nikia Pacheco RN Allergies As of Date: 11/12/2023 Noted Allergy Reaction DULOXETINE 09/14/2019 2 - Rash Date Reviewed: 09/08/2023 Reviewed by: Laura Powell MA - Fully Assessed Reason for Visit: Patient Question [4237] Prescriptions as of 11/12/2023 - omeprazole magnesium (PRILOSEC ORAL) Take by mouth. - COLLAGEN MISC 2 Tablespoonsful once daily. Unknown dosage - calcium/chondr/collag/gl ycosam (BEYOND BONE BROTH ORAL) Take by mouth. Bone Broth Collagen 1 Scoop per day (2 table spoons) - zoledronic acid (RECLAST) 5 mg/100 mL pgbk PREMIX piggyback Zoledronic Tens-Ycsvmbku-Fbnxy Active 1 EACH .Route ONCE 100 February 07, 2021 11:08am onceinfuse over 20 minutes - acetaminophen (TYLENOL EX STR RAPID RELEASE ORAL) Take 1,000 mg by mouth twice daily as needed. 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*04/29/2017 Early satiety [R68.81] 12/07/2017 Nausea [R11.0] 12/07/2017 Vulvar burning [N94.89] 12/07/2017 Other specified disorders of carbohydrate metab*12/07/2017 Osteoarthritis of multiple joints [M15.9] 07/13/2018 H/O degenerative disc disease [Z87.39] 07/13/2018 Low bone density [M85.9] 07/13/2018 Encounter Status:Closed by NIKIA PACHECO on 11/12/23 Normal [facility] Urgent Care Visit Reporton 0 10-07-2023 Urgent Care Visit Report [facility] [address], [address] [place] [id number] OFFICE VISIT Date of Service: 10/07/23 MR#: [id number] Acct: [id number] Name: KELLI MONROY Rep #: [id number] : 1950 Provider: VIRGINIA Dietrich Age/Sex: 73/F Location: [facility] Status: Signed Intake Vital Signs 08/06/23 13:03 10/07/23 15:35 Height 5 ft 4.5 in Weight: 155 lb BMI 26.2 BP 139/77 H 144/82 H Blood Pressure Location Lt brachial Lt brachial Position Sitting Sitting Respiration 18 18 Pulse 73 80 Pulse Source Monitor NIBP Temp 98.6 F Temp Source Temporal Pulse Oximetry (%) 99 99 Oxygen Delivery Method room air Intake Visit Reasons: ST/BILAT EAR CONCERN/COVID TEST Chief Complaint: throat and chest burning Turn Sewer Required: No Is patient in pain?: No Allergies duloxetine (From Cymbalta) Adverse Reaction (Mild, Verified 10/07/23 15:35) dizziness Is last menstrual period known: No Post menopausal: Yes Patient : No Have you fallen in the past year?: No Nurse's Note: throat and chest burning x 3 weeks. hx GERD, hx neck pain. pt has upcoming gastro appt for GERD and is concerned she may give him either strep or covid. would like screened for both. [facility] Medical History (Updated 10/07/23 @ 16:12 by Irving COLEMAN, PA) Acute pharyngitis Burn of right upper extremity Atherosclerosis of coronary artery of [place] heart without angina pectoris Fibromyalgia Menopausal hot flushes Symptoms of gastroesophageal reflux Hypertension Hyperparathyroidism Paresthesia Skin cancer GERD (gastroesophageal reflux disease) Osteopenia Osteoarthritis Heart murmur Hormone deficiency High cholesterol Headache Gastrointestinal problem Cataracts, bilateral Breast cancer Breast lump UTI (urinary tract infection) Back problem Arthritis Hx of breast cancer Surgical History History of left heart catheterization (08/16/20) History of endoscopy History of colonoscopy History of lumpectomy Hx of cataract surgery H/O: hysterectomy Family History Father Heart disease Mother Heart disease Osteoporosis Thyroid disorder Brother Heart disease Hypertension Hypercholesterolemia Daughter Cancer Sister Arthritis Hypertension Hypercholesterolemia Osteoporosis Thyroid disorder Social History Smoking Status: Never smoker alcohol intake: never substance use type: does not use what type of physical activity do you participate in: walking and weight training frequency: 1-2 times per week HPI HPI Chief Complaint: throat and chest burning Details: KELLI MONROY, is a 73 F who presents to the office today for 1 and half to 2-week history of persistent irritated/scratchy throat along with superior chest wall, burning sensation. She notes no complaints of fever, chills, sweats, lightheadedness/dizzines s, nausea/vomiting, or chest pressure/shortness of breath/dyspnea on exertion. Patient notes she is will be following up with her saturator tender in a few days and would like to be screening for COVID-19 and strep pharyngitis to ensure she has neither before going to this appointment. She has taken wefa-lgr-pifddhu products to assist with symptoms. She notes no other associated symptoms and no other alleviating/aggravating factors. PMH GERD, currently treated with omeprazole ROS Const Constitutional: No other (As above) Exam Const General: cooperative, healthy appearing and no acute distress Nutritional Appearance: average body habitus Orientation: alert, awake and oriented x3 HENMT Head: normal to inspection Ears: hearing grossly normal bilaterally, external ears normal, TM's normal bilaterally and EAC's normal Nose: external nose normal, nares normal, septum normal and no nasal discharge Face and sinus: normal facial exam, sinuses nontender and face symmetric Mouth: oral mucosae normal, lip normal, tongue normal and oropharynx normal Throat: posterior oropharynx normal, tonsils normal, uvula midline and no postnasal drainage Eyes General: appearance normal, both eyes and all related structures Neck Neck: normal visual inspection, full ROM, no lymphadenopathy, no meningeal signs and supple Neck mass: No Thyroid: thyroid normal Lymphatic: no lymphadenopathy noted Chest Chest palpation inspection: normal inspection of the chest Resp Effort Inspection: normal respiratory effort and able to speak in complete sentences Auscultation: Bilateral: Clear to Auscultation Cardio Palpation: normal PMI Rate: regular rate Rhythm: regular rhythm Heart Sounds: S1 normal, S2 normal, no gallops, no murmurs and no rubs Pulses: radia (more content not included)... Normal [facility] Bacteria Ur Culton 4 Bacteria identified Cx Nom (U) ORGANISM ID: 1 10,000 -<50,000 CFU/ml Escherichia coli ORGANISM ID: 1 (ESCHERICHIA COLI) ANTIBIOTIC INTERPRETATION DANTE STATUS REFERENCE RANGE Ampicillin S <=2 F Susceptible <=8 , Intermediate >8 , Resistant >16 Cefazolin S <=4 F Susceptible 0-16 , Intermediate <0 or >16 , Resistant >16 For uncomplicated urinary tract infections, cefazolin results can be used to predict susceptibility or resistance to cephalexin. Ceftriaxone S <=1 F Susceptible <=1 , Intermediate >1 , Resistant >=4 Cefepime S <=1 F Susceptible <=2 , Susceptible-Dose Dependent >2 , Resistant >=16 Ertapenem S <=0.5 F Susceptible <=0.5 , Intermediate >.5 , Resistant >1 Meropenem S <=0.25 F Susceptible <=1 , Intermediate >1 , Resistant >2 Ampicillin/Sulbact S <=2 F Susceptible <=8 , Intermediate >8 , Resistant >16 Gentamicin S <=1 F Susceptible <=2 , Intermediate >2 , Resistant >=8 Tobramycin S <=1 F Susceptible <4 , Intermediate >=4 , Resistant >=8 Trimeth sulfameth S <=20 F Susceptible <=40 , Resistant >40 Ciprofloxacin S <=0.25 F Susceptible <0.5 , Intermediate >=.5 , Resistant >=1 Nitrofurantoin S <=16 F Susceptible <=32 , Intermediate >32 , Resistant >64 Abnormal [facility] Comment on above: Performed By: #### L [id number] #### [facility] CLIA [id number] [address] [place] [address] [place] CNOVon 09-08-2023 CNOV Office Visit (OBGYWM ) -------- KELLI MONROY ([id number]) 1950 F Date Time Provider Department 09/08/23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 Bilirubin [Mass/Vol] 0.60 mg/dL 0.20-1.00 [facility] Work Phone: Comment on above: For patients on eltr ombopag therapy, use of Dimension [place] TBIL is not recommended. Chloride [Moles/Vol] 101 mmol/L 98-107 [facility] Work Phone: Eosinophils/100 WBC (Bld) 0.6 % 0-5 [facility] Work Phone: Glucose [Mass/Vol] 99 mg/dL 74-106 [facility] Work Phone: Neutrophils (Bld) [#/Vol] 5.8 10*3/uL 2.0-7.7 [facility] Work Phone: Neutrophils/100 WBC (Bld) 72.3 % 47-70 [facility] Work Phone: Potassium [Moles/Vol] 3.8 mmol/L 3.5-5.1 [facility] Work Phone: Protein [Mass/Vol] 6.9 g/dL 6.4-8.2 [facility] Work Phone: Sodium [Moles/Vol] 134 mmol/L 136-145 [facility] Work Phone: WBC (Bld) [#/Vol] 8.1 10*3/uL 4.4-11.0 [facility] Work Phone: Bilirubin Test strip Ql (U)o n 06-10-2021 Bilirubin Ql (U) Negative Negative [facility] Work Phone: Blood erythrocytes count (nu mber/volume)on 06-10-2021 RBC (Bld) [#/Vol] 3.86 10*6/uL 4.2-5.4 [facility] Work [facility]: Blood hemoglobin measurement (mass/volume)on 06-10-2021 Hemoglobin (Bld) [Mass/Vol] 12.4 g/dL 12.0-15.0 [facility] Work Phone: Blood lymphocytes/100 leukoc yteson 06-10-2021 Lymphocytes/100 WBC (Bld) 16.6 % 19-41 [facility] Work Phone: Blood monocytes/100 leukocyt eson 06-10-2021 Monocytes/100 WBC (Bld) 9.4 % 0-10 [facility] Work Phone: Blood platelet mean volumeon 06-10-2021 Platelet mean volume (Bld) [Entitic vol] 8.4 fL 6.2-12.0 [facility] Work Phone: Determination of erythrocyte mean corpuscular volume (MCV)on 06-10-2021 MCV (RBC) [Entitic vol] 93.0 fL 81-99 [facility] Work Phone: Hematocrit Auto (Bld) [Volum e fraction]on 06-10-2021 Hematocrit (Bld) [Volume fraction] 35.9 % 37-47 [facility] Work Phone: Ketones Test strip Ql (U)on 06-10-2021 Ketones Ql (U) Negative Negative [facility] Work Phone: Laboratory - Chemistry and C hemistry - challengeon 06-10-2021 ALP [Catalytic activity/Vol] 48 U/L 45-117 [facility] Work Phone: ALT [Catalytic activity/Vol] 17 U/L 13-56 [facility] Work Phone: CO2 [Moles/Vol] 28.0 mmol/L 21.0-32.0 [facility] Work Phone: Globulin (S) [Mass/Vol] 3.2 g/dL 2.2-4.2 [facility] Work Phone: Urea nitrogen/Creatinine [Mass ratio] 12.3 mg/mg 10-20 [facility] Work Phone: Laboratory - Hematology and Cell countson 06-10-2021 Erythrocyte distribution width (RBC) [Entitic vol] 41.5 fL 35.1-43.9 [facility] Work Phone: Erythrocyte distribution width (RBC) [Ratio] 12.1 % 11.6-14.6 [facility] Work Phone: Immature granulocytes/100 WBC (Bld) 0.600 % 0.0-0.9 [facility] Work Phone: Comment on above: IG% - Immature Granu locytes (promyelocytes, myelocytes and metamyelocytes) > 1% indicates that a LEFT SHIFT is Present. MCH (RBC) [Entitic mass] 32.1 pg 27.0-32.0 [facility] Work Phone: Nucleated RBC/100 WBC (Bld) [Ratio] 0 % 0-5 [facility] Work Phone: MCHC Auto (RBC) [Mass/Vol]on 06-10-2021 MCHC (RBC) [Mass/Vol] 34.5 g/dL 32-36 [facility] Work Phone: Mucus LM Ql (Urine sed)on Mucus Ql (Urine sed) 0 SEEN /hpf [facility] Work Phone: Nitrite Test strip Ql (U)on 06-10-2021 Nitrite Ql (U) Negative Negative [facility] Work Phone: No Panel Informationon 06-10 Estimated Creatinine Clearance Calc 43.27 ml/min [facility] Work Phone: Estimated GFR (MDRD) Amer 134 mL/min >60 [facility] Work Phone: Comment on above: GFR Calc Estimated GFR (MDRD) Non-Af Amer 111 mL/min >60 [facility] Work Phone: Comment on above: Non- GFR Calc Troponin I High Sensitivity 5 pg/mL 3.0-54.0 [facility] Work Phone: Comment on above: Please Note: New Stephanie t Units and Gender Specific Reference Ranges. For more information see Policy Stat Procedure [place] High Sensitivity Troponin (TNIH) and attachments. Platelets bldon 06-10-2021 Platelets (Bld) [#/Vol] 297 10*3/uL 150-450 [facility] Work Phone: Protein Test strip Ql (U)on 06-10-2021 Protein Ql (U) Negative Negative [facility] Work Phone: Serum or plasma albumin anjel urement (mass/volume)on 06-10-2021 Albumin [Mass/Vol] 3.7 g/dL 3.2-5.0 [facility] Work Phone: Serum or plasma albumin/glob ulin mass ratioon 06-10-2021 Albumin/Globulin [Mass ratio] 1.2 {ratio} 0.9-2.4 [facility] Work Phone: Serum or plasma calcium anjel urement (mass/volume)on 06-10-2021 Calcium [Mass/Vol] 9.0 mg/dL 8.5-10.1 [facility] Work Phone: Serum or plasma creatinine m easurement (mass/volume)on 06-10-2021 Creatinine [Mass/Vol] 0.57 mg/dL 0.55-1.02 [facility] Work Phone: Comment on above: The validity of the calculated GFR & GFRAA in patients over 70 years has not been determined. Clinical correlation is essential. Serum or plasma urea nitroge n measurement (mass/volume)on 06-10-2021 Urea nitrogen [Mass/Vol] 7 mg/dL 09-09 [facility] Work Phone: Squamous epithelial cells de tection in urine sediment by light microscopyon 06-10-2021 Epithelial cells.squamous LM Ql (Urine sed) 0-5 SEEN /hpf [facility] Work Phone: Thin prep Papanicolaou smear with manual screeningon 06-10-2021 Thin prep Papanicolaou smear with manual screening 12 U/L 15-37 [facility] Work Phone: Thin prep Papanicolaou smear with manual screening 5 5-15 [facility] Work Phone: Urine blood detectionon 05-24 RBC Ql (U) Negative Negative [facility] Work Phone: RBC Ql (U) 0 SEEN /hpf [facility] Work Phone: Urine clarityon 06-10-2021 Clarity (U) Clear Clear [facility] Work Phone: Urine color determinationon 06-10-2021 Color (U) Yellow Yellow [facility] Work Phone: Urine glucose detectionon Glucose Ql (U) Normal mg/dl Normal [facility] Work Phone: Urine leukocyte esterase det ection by dipstickon 06-10-2021 Leukocyte esterase Test strip Ql (U) 25 /ul Negative [facility] Work Phone: Urine pHon 06-10-2021 pH (U) 7.0 [pH] [facility] Work Phone: Urine sediment bacteria coun t by microscopy (number/high power field)on 06-10-2021 Bacteria LM.HPF (Urine sed) [#/Area] 0 /[HPF] None Seen [facility] Work Phone: Urine specific gravity measu rementon 06-10-2021 Specific gravity (U) [Rel density] 1.010 [facility] Work Phone: Urobilinogen Auto test strip Ql (U)on 06-10-2021 Urobilinogen Ql (U) Normal mg/dl Normal [facility] Work Phone: [phone] Laboratory - Chemistry and C hemistry - challengeon 05-15-2021 Cobalamin (Vitamin B12) [Mass/Vol] 1069 pg/mL 211-911 [facility] Work Phone: Magnesium [Mass/Vol] 2.7 mg/dL 1.6-2.6 [facility] Work Phone: [phone] No Panel Informationon 05-15 Vitamin D 25-Hydroxy 55.2 ng/mL [facility] Work Phone: Comment on above: Vitamin D 25(OH) Sta tus Range Deficiency <20 ng/mL (50nmol/L) Insufficiency 20 - 30 ng/mL (50 - 75 nmol/L) Sufficiency 30 - 100 ng/mL (75 - 250 nmol/L) Toxicity >100 ng/mL (>250 nmol/L) Laboratory - Chemistry and C hemistry - challengeon 04-01-2021 Free T4 [Mass/Vol] 1.03 ng/dL 0.76-1.46 [facility] Work Phone: No Panel Informationon 04-01 Ionized Calcium 5.0 mg/dL [facility] Work Phone: Parathyroid Hormone (Intact) 83.8 pg/mL 18.4-80.1 [facility] Work Phone: Thyroid Stimulating Hormone (TSH) 1.04 uIU/mL 0.358-3.74 [facility] Work Phone: Total Triiodothyronine 1.14 ng/mL 0.6-1.81 [facility] Work Phone: Serum or plasma calcium anjel urement (mass/volume)on 04-01-2021 Calcium [Mass/Vol] 8.8 mg/dL 8.5-10.1 [facility] Work Phone: Serum or plasma thyroperoxid ase antibody assay (units/volume)on 04-01-2021 TPO Ab Qn [IU]/mL [facility] Work Phone: Comment on above: Performed at: [address] [id number] Director: Dannie Meza PhD, Phone: [phone] BONE MARROW BIOPSY [facility] Vital Signs Date Time Vital Sign Value Performing Clinician Facility 07-14-2024 11:01-0400 Body temperature 97.8 [degF] Dr. Angel Fuller MD Work Phone: [facility] [facility] 07-14-2024 11:01-0400 Body weight 70.[address] Angel Fuller MD Work Phone: [facility] 07-14-2024 11:01-0400 Diastolic blood pressure 77 mm[Hg] Dr. Angel Fuller MD Work Phone: [facility] 07-14-2024 11:01-0400 Heart rate 76 /min Dr. Angel Fuller MD Work Phone: [facility] 07-14-2024 11:01-0400 Respiratory rate 17 /min Dr. Angel Fuller MD Work Phone: [facility] 07-14-2024 11:01-0400 SaO2% (BldA) [Mass fraction] 99 % Dr. Angel Fuller MD Work Phone: [facility] 07-14-2024 11:01-0400 Systolic blood pressure 151 mm[Hg] Dr. Angel Fuller MD Work Phone: [facility] 07-12-2024 11:22-0400 Diastolic blood pressure 84 mm[Hg] Karie Meyer DO Work Phone: [facility] 07-12-2024 11:22-0400 Heart rate 79 /min Karie Meyer DO Work Phone: [facility] 07-12-2024 11:22-0400 SaO2% (BldA) [Mass fraction] 98 % Karie Meyer DO Work Phone: [facility] 07-12-2024 11:22-0400 Systolic blood pressure 143 mm[Hg] Karie Meyer DO Work Phone: [facility] 06-30-2024 11:27-0400 Body height 162.[address] Angel Fuller MD Work Phone: [facility] 06-30-2024 11:27-0400 Body mass index (BMI) [Ratio] 26.2 kg/m2 Dr. Angel Fuller MD Work Phone: [facility] 06-30-2024 11:27-0400 Body temperature 98 [degF] Dr. Angel Fuller MD Work Phone: [facility] 06-30-2024 11:27-0400 Body weight 69.[address] Agnel Fuller MD Work Phone: [facility] 06-30-2024 11:27-0400 Diastolic blood pressure 76 mm[Hg] Dr. Angel Fuller MD Work Phone: [facility] 06-30-2024 11:27-0400 Heart rate 86 /min Dr. Angel Fuller MD Work Phone: [facility] 06-30-2024 11:27-0400 Respiratory rate 16 /min Dr. Angel Fuller MD Work Phone: [facility] 06-30-2024 11:27-0400 SaO2% (BldA) [Mass fraction] 99 % Dr. Angel Fuller MD Work Phone: [facility] 06-30-2024 11:27-0400 Systolic blood pressure 137 mm[Hg] Dr. Angel Fuller MD Work Phone: [facility] 06-09-2024 14:06-0400 Body mass index (BMI) [Ratio] 26.1 kg/m2 Dr. Angel Fuller MD Work Phone: 9(372)560-550362 [place] [address] 06-09-2024 14:06-0400 Body temperature 97.8 [degF] Dr. Angel Fuller MD Work Phone: 9(826)128-666732 [place] [address] 06-09-2024 14:06-0400 Body weight 69.[address] Angel Fuller MD Work Phone: 4(986)663-239532 [place] [address] 06-09-2024 14:06-0400 Diastolic blood pressure 76 mm[Hg] Dr. Angel Fuller MD Work Phone: 4(810)161-995232 [place] [address] 06-09-2024 14:06-0400 Heart rate 83 /min Dr. Angel Fuller MD Work Phone: 7(269)001-013432 [place] [address] 06-09-2024 14:06-0400 Respiratory rate 17 /min Dr. Angel Fuller MD Work Phone: 9(939)142-975632 [place] [address] 06-09-2024 14:06-0400 SaO2% (BldA) [Mass fraction] 99 % Dr. Angel Fuller MD Work Phone: 0(982)110-016632 [place] [address] 06-09-2024 14:06-0400 Systolic blood pressure 134 mm[Hg] Dr. Angel Fuller MD Work Phone: 9(816)176-508332 [place] [address] 05-10-2024 11:00-0400 Body temperature 98.2 [degF] Dr. Angel Fuller MD Work Phone: 1(350)087-663932 [place] [address] 05-10-2024 11:00-0400 Body weight 68.[address] Angel Fuller MD Work Phone: 2(865)100-125162 [place] [address] 05-10-2024 11:00-0400 Diastolic blood pressure 70 mm[Hg] Dr. Angel Fuller MD Work Phone: 1(604)691-523762 [place] [address] 05-10-2024 11:00-0400 Heart rate 80 /min Dr. Angel Fuller MD Work Phone: 4(533)092-169962 [place] [address] 05-10-2024 11:00-0400 Respiratory rate 17 /min Dr. Angel Fuller MD Work Phone: 9(488)852-731762 [place] [address] 05-10-2024 11:00-0400 SaO2% (BldA) [Mass fraction] 99 % Dr. Angel Fuller MD Work Phone: 8(128)790-741532 [place] [address] 05-10-2024 11:00-0400 Systolic blood pressure 130 mm[Hg] Dr. Angel Fuller MD Work Phone: 2(283)016-429532 [place] [address] 05-02-2024 09:28-0400 Body height 162.[address] Angel Fuller MD Work Phone: 7(750)095-762532 [place] [address] 05-02-2024 09:28-0400 Body mass index (BMI) [Ratio] 25.9 kg/m2 Dr. Angel Fuller MD Work Phone: 8(155)951-771732 [place] [address] 05-02-2024 09:28-0400 Body weight 68.[address] Angel Fuller MD Work Phone: 4(495)119-043032 [place] [address] 04-18-2024 14:42-0500 Body temperature 98.2 [degF] Dr. Angel Fuller MD Work Phone: 9(543)278-451632 [place] [address] 04-18-2024 14:42-0500 Diastolic blood pressure 87 mm[Hg] Dr. Angel Fuller MD Work Phone: 3(236)740-053632 [place] [address] 04-18-2024 14:42-0500 Heart rate 73 /min Dr. Angel Fuller MD Work Phone: 0(886)216-785662 [place] [address] 04-18-2024 14:42-0500 Respiratory rate 16 /min Dr. Angel Fuller MD Work Phone: 0(854)751-881662 [place] [address] 04-18-2024 14:42-0500 SaO2% (BldA) [Mass fraction] 97 % Dr. Angel Fuller MD Work Phone: 5(065)896-789762 [place] [address] 04-18-2024 14:42-0500 Systolic blood pressure 155 mm[Hg] Dr. Angel Fuller MD Work Phone: 6(572)057-275632 [place] [address] 04-18-2024 12:17-0500 Body mass index (BMI) [Ratio] 26 kg/m2 Dr. Angel Fuller MD Work Phone: 6(183)341-202332 [place] [address] 04-18-2024 12:17-0500 Body weight 68.[address] Angel Fuller MD Work Phone: 0(257)339-124832 [place] [address] 04-18-2024 12:14-0500 Body height 162.[address] Angel Fuller MD Work Phone: 8(636)456-529132 [place] [address] 04-16-2024 19:02-0500 Body temperature 97.8 [degF] Dr. Angel Fuller MD Work Phone: 1(861)219-647132 [place] [address] 04-16-2024 19:02-0500 Diastolic blood pressure 90 mm[Hg] Dr. Angel Fuller MD Work Phone: 1(447)684-187432 [place] [address] 04-16-2024 19:02-0500 Heart rate 73 /min Dr. Angel Fuller MD Work Phone: 8(197)214-059332 [place] [address] 04-16-2024 19:02-0500 Respiratory rate 17 /min Dr. Angel Fuller MD Work Phone: 4(779)418-733032 [place] [address] 04-16-2024 19:02-0500 SaO2% (BldA) [Mass fraction] 98 % Dr. Angel Fuller MD Work Phone: 5(559)024-371932 [place] [address] 04-16-2024 19:02-0500 Systolic blood pressure 172 mm[Hg] Dr. Angel Fuller MD Work Phone: 6(467)161-308132 [place] [address] 04-16-2024 17:07-0500 Body mass index (BMI) [Ratio] 25.9 kg/m2 Dr. Angel Fuller MD Work Phone: 0(452)210-097032 [place] [address] 04-16-2024 17:07-0500 Body weight 68.[address] Angel Fuller MD Work Phone: 7(852)568-015932 [place] [address] 04-12-2024 18:59-0500 Body temperature 99 [degF] Dr. Angel Fuller MD Work Phone: 2(665)305-041532 [place] [address] 04-12-2024 18:59-0500 Diastolic blood pressure 75 mm[Hg] Dr. Angel Fuller MD Work Phone: 5(867)142-745632 [place] [address] 04-12-2024 18:59-0500 Heart rate 66 /min Dr. Angel Fuller MD Work Phone: 1(927)626-612032 [place] [address] 04-12-2024 18:59-0500 Respiratory rate 18 /min Dr. Angel Fuller MD Work Phone: 7(667)595-730932 [place] [address] 04-12-2024 18:59-0500 SaO2% (BldA) [Mass fraction] 96 % Dr. Angel Fuller MD Work Phone: 6(717)743-497732 [place] [address] 04-12-2024 18:59-0500 Systolic blood pressure 133 mm[Hg] Dr. Angel Fuller MD Work Phone: 8(885)639-953332 [place] [address] 04-12-2024 15:30-0500 Body mass index (BMI) [Ratio] 26.3 kg/m2 Dr. Angel Fuller MD Work Phone: 1(732)459-061232 [place] [address] 04-12-2024 15:30-0500 Body weight [address] Angel Fuller MD Work Phone: 2(425)318-376532 [place] [address] 04-12-2024 11:59-0500 Body temperature 99.5 [degF] Dr. Angel Fuller MD Work Phone: 9(670)079-155032 [place] [address] 04-12-2024 11:59-0500 Diastolic blood pressure 70 mm[Hg] Dr. Angel Fuller MD Work Phone: 0(634)793-183932 [place] [address] 04-12-2024 11:59-0500 Heart rate 101 /min Dr. Angel Fuller MD Work Phone: 5(802)781-633132 [place] [address] 04-12-2024 11:59-0500 Respiratory rate 12 /min Dr. Angel Fuller MD Work Phone: 8(651)935-056732 [place] [address] 04-12-2024 11:59-0500 SaO2% (BldA) [Mass fraction] 99 % Dr. Angel Fuller MD Work Phone: 4(200)866-749532 [place] [address] 04-12-2024 11:59-0500 Systolic blood pressure 140 mm[Hg] Dr. Angel Fuller MD Work Phone: 1(468)272-067932 [place] [address] 04-05-2024 10:31-0500 Body temperature 97.2 [degF] Dr. Angel Fuller MD Work Phone: 4(028)471-378532 [place] [address] 04-05-2024 10:31-0500 Diastolic blood pressure 64 mm[Hg] Dr. Angel Fuller MD Work Phone: 4(160)631-338432 [place] [address] 04-05-2024 10:31-0500 Heart rate 71 /min Dr. Angel Fuller MD Work Phone: 4(647)603-640932 [place] [address] 04-05-2024 10:31-0500 Respiratory rate 16 /min Dr. Angel Fuller MD Work Phone: 6(498)010-089632 [place] [address] 04-05-2024 10:31-0500 SaO2% (BldA) [Mass fraction] 98 % Dr. Angel Fuller MD Work Phone: 9(743)809-785632 [place] [address] 04-05-2024 10:31-0500 Systolic blood pressure 103 mm[Hg] Dr. Angel Fuller MD Work Phone: 4(733)978-823432 [place] [address] 04-05-2024 09:58-0500 Body mass index (BMI) [Ratio] 26.2 kg/m2 Dr. Angel Fuller MD Work Phone: 6(176)101-841132 [place] [address] 04-05-2024 09:58-0500 Body weight 69.[address] Angel Fuller MD Work Phone: 2(634)247-937032 [place] [address] 04-04-2024 08:55-0500 Body mass index (BMI) [Ratio] 25.9 kg/m2 Dr. Angel Fuller MD Work Phone: 8(966)070-619032 [place] [address] 04-04-2024 08:55-0500 Body temperature 98 [degF] Dr. Angel Fuller MD Work Phone: 8(246)429-027232 [place] [address] 04-04-2024 08:55-0500 Body weight 68.[address] Angel Fuller MD Work Phone: 5(549)785-332332 [place] [address] 04-04-2024 08:55-0500 Diastolic blood pressure 82 mm[Hg] Dr. Angel Fuller MD Work Phone: 0(892)077-990832 [place] [address] 04-04-2024 08:55-0500 Heart rate 89 /min Dr. Angel Fuller MD Work Phone: 1(688)375-849932 [place] [address] 04-04-2024 08:55-0500 Respiratory rate 16 /min Dr. Angel Fuller MD Work Phone: 6(569)061-046132 [place] [address] 04-04-2024 08:55-0500 SaO2% (BldA) [Mass fraction] 99 % Dr. Angel Fuller MD Work Phone: 3(269)796-813932 [place] [address] 04-04-2024 08:55-0500 Systolic blood pressure 148 mm[Hg] Dr. Angel Fuller MD Work Phone: 3(222)468-822832 [place] [address] 03-13-2024 00:29-0500 Body temperature 98.4 [degF] Dr. Angel Fuller MD Work Phone: 0(210)206-202132 [place] [address] 03-13-2024 00:29-0500 Diastolic blood pressure 78 mm[Hg] Dr. Angel Fuller MD Work Phone: 0(124)896-855832 [place] [address] 03-13-2024 00:29-0500 Heart rate 71 /min Dr. Angel Fuller MD Work Phone: 1(600)979-307632 [place] [address] 03-13-2024 00:29-0500 Respiratory rate 18 /min Dr. Angel Fuller MD Work Phone: 2(003)260-676832 [place] [address] 03-13-2024 00:29-0500 SaO2% (BldA) [Mass fraction] 98 % Dr. Angel Fuller MD Work Phone: 6(297)436-944532 [place] [address] 03-13-2024 00:29-0500 Systolic blood pressure 163 mm[Hg] Dr. Angel Fuller MD Work Phone: 4(561)449-940332 [place] [address] 03-12-2024 20:45-0500 Body mass index (BMI) [Ratio] 26.6 kg/m2 Dr. Angel Fuller MD Work Phone: 1(106)293-813332 [place] [address] 03-12-2024 20:45-0500 Body weight 70.[address] Angel Fuller MD Work Phone: 3(043)968-485132 [place] [address] 03-06-2024 13:21-0500 Body temperature 98.6 [degF] Dr. Angel Fuller MD Work Phone: 1(482)376-403832 [place] [address] 03-06-2024 13:21-0500 Diastolic blood pressure 76 mm[Hg] Dr. Angel Fuller MD Work Phone: 5(530)940-684332 [place] [address] 03-06-2024 13:21-0500 Heart rate 71 /min Dr. Angel Fuller MD Work Phone: 4(127)883-272932 [place] [address] 03-06-2024 13:21-0500 Respiratory rate 16 /min Dr. Angel Fuller MD Work Phone: 9(743)770-752732 [place] [address] 03-06-2024 13:21-0500 SaO2% (BldA) [Mass fraction] 99 % Dr. Angel Fuller MD Work Phone: 0(827)729-850032 [place] [address] 03-06-2024 13:21-0500 Systolic blood pressure 146 mm[Hg] Dr. Angel Fuller MD Work Phone: 6(692)484-898532 [place] [address] 02-19-2024 15:45-0500 Body mass index (BMI) [Ratio] 26.9 kg/m2 Dr. Angel Fuller MD Work Phone: 7(755)390-869032 [place] [address] 02-19-2024 15:45-0500 Body weight 71.[address] Angel Fuller MD Work Phone: 9(681)816-986732 [place] [address] 02-19-2024 15:45-0500 Diastolic blood pressure 85 mm[Hg] Dr. Angel Fuller MD Work Phone: 5(073)997-211132 [place] [address] 02-19-2024 15:45-0500 Heart rate 82 /min Dr. Angel Fuller MD Work Phone: 9(399)066-484332 [place] [address] 02-19-2024 15:45-0500 SaO2% (BldA) [Mass fraction] 99 % Dr. Angel Fuller MD Work Phone: 2(838)839-742932 [place] [address] 02-19-2024 15:45-0500 Systolic blood pressure 147 mm[Hg] Dr. Angel Fuller MD Work Phone: [facility] 09-08-2023 11:41-0400 Body mass index (BMI) [Ratio] 27.16 kg/m2 Prisca Cox MD Work Phone: [facility] 09-08-2023 11:41-0400 Body weight 71.22 kg Prisca Cox MD Work Phone: [facility] 09-08-2023 11:41-0400 Diastolic blood pressure 82 mm[Hg] Prisca Cox MD Work Phone: [facility] 09-08-2023 11:41-0400 Systolic blood pressure 144 mm[Hg] Prisca Cox MD Work Phone: [facility] 06-11-2023 11:02-0400 Body weight 70.13 kg Guy Gonzalez APRN.FINAL CLEANER Work Phone: [facility] 06-11-2023 11:02-0400 Diastolic blood pressure 80 mm[Hg] Guy Gonzalez APRN.FINAL CLEANER Work Phone: [facility] 06-11-2023 11:02-0400 Heart rate 70 /min Guy Gonzalez APRN.FINAL CLEANER Work Phone: [facility] 06-11-2023 11:02-0400 SaO2% (BldA) [Mass fraction] 99 % Guy Gonzalez HUMAN RESOURCES COMPENSATION ANALYST.FINAL CLEANER Work Phone: [facility] 06-11-2023 11:02-0400 Systolic blood pressure 140 mm[Hg] Guy Gonzalez APRN.FINAL CLEANER Work Phone: [facility] 06-10-2023 13:07-0400 Body height 162.[address] Angel Fuller Work Phone: [facility] 06-10-2023 13:07-0400 Body mass index (BMI) [Ratio] 26.3 kg/m2 Dr. Angel Fuller Work Phone: [facility] 06-10-2023 13:07-0400 Body weight 69.[address] Angel Fuller Work Phone: [facility] 06-10-2023 13:07-0400 Diastolic blood pressure 87 mm[Hg] Dr. Angel Fuller Work Phone: [facility] 06-10-2023 13:07-0400 Heart rate 79 /min Dr. Angel Fuller Work Phone: 5(586)627-063862 [place] [address] 06-10-2023 13:07-0400 Respiratory rate 16 /min Dr. Angel Fuller Work Phone: 0(397)565-606962 [place] [address] 06-10-2023 13:07-0400 Systolic blood pressure 162 mm[Hg] Dr. Angel Fuller Work Phone: [facility] 03-20-2023 11:04-0500 Body temperature 97.6 [degF] Dr. Angel Fuller Work Phone: 9(340)963-930462 [place] [address] 03-20-2023 11:04-0500 Diastolic blood pressure 71 mm[Hg] Dr. Angel Fuller Work Phone: 7(524)799-883862 [place] [address] 03-20-2023 11:04-0500 Heart rate 67 /min Dr. Angel Fuller Work Phone: [facility] 03-20-2023 11:04-0500 Respiratory rate 16 /min Dr. Angel Fuller Work Phone: [facility] 03-20-2023 11:04-0500 SaO2% (BldA) [Mass fraction] 97 % Dr. Angel Fuller Work Phone: [facility] 03-20-2023 11:04-0500 Systolic blood pressure 137 mm[Hg] Dr. Angel Fuller Work Phone: [facility] 03-20-2023 10:24-0500 Body height 162.[address] Angel Fuller Work Phone: [facility] 03-09-2023 11:00-0500 Body mass index (BMI) [Ratio] 25.7 kg/m2 Dr. Angel Fuller Work Phone: [facility] 03-09-2023 11:00-0500 Body temperature 98 [degF] Dr. Angel Fuller Work Phone: [facility] 03-09-2023 11:00-0500 Body weight 68.[address] Angel Fuller Work Phone: 8(939)202-389832 [place] [address] 03-09-2023 11:00-0500 Diastolic blood pressure 80 mm[Hg] Dr. Angel Fuller Work Phone: 7(513)905-359632 [place] [address] 03-09-2023 11:00-0500 Heart rate 85 /min Dr. Angel Fuller Work Phone: 7(035)538-313632 [place] [address] 03-09-2023 11:00-0500 Respiratory rate 12 /min Dr. Angle Fuller Work Phone: 7(440)798-536532 [place] [address] 03-09-2023 11:00-0500 SaO2% (BldA) [Mass fraction] 98 % Dr. Angel Fuller Work Phone: 5(949)996-228132 [place] [address] 03-09-2023 11:00-0500 Systolic blood pressure 158 mm[Hg] Dr. Angel Fuller Work Phone: 2(508)823-942032 [place] [address] 02-19-2023 15:51-0500 Body height 162.[address] Angel Fuller Work Phone: 4(663)083-434632 [place] [address] 02-19-2023 15:51-0500 Body mass index (BMI) [Ratio] 25.5 kg/m2 Dr. Angel Fuller Work Phone: 6(416)898-671832 [place] [address] 02-19-2023 15:51-0500 Body temperature 98.2 [degF] Dr. Angel Fuller Work Phone: 4(892)537-787232 [place] [address] 02-19-2023 15:51-0500 Body weight 67.[address] Angel Fuller Work Phone: 8(882)077-188262 [place] [address] 02-19-2023 15:51-0500 Diastolic blood pressure 82 mm[Hg] Dr. Angel Fuller Work Phone: 3(268)114-952562 [place] [address] 02-19-2023 15:51-0500 Heart rate 89 /min Dr. Angel Fuller Work Phone: [facility] 02-19-2023 15:51-0500 Respiratory rate 16 /min Dr. Angel Fuller Work Phone: [facility] 02-19-2023 15:51-0500 SaO2% (BldA) [Mass fraction] 98 % Dr. Angel Fuller Work Phone: [facility] 02-19-2023 15:51-0500 Systolic blood pressure 151 mm[Hg] Dr. Angel Fuller Work Phone: [facility] 11-21-2022 12:56-0400 Body height 161.9 cm Saratoga Mendez HUMAN RESOURCES COMPENSATION ANALYST.FINAL CLEANER Work Phone: [facility] 11-21-2022 12:56-0400 Body temperature 97.5 [degF] Saratoga Mendez HUMAN RESOURCES COMPENSATION ANALYST.FINAL CLEANER Work Phone: [facility] 11-21-2022 12:56-0400 Body weight 68.49 kg Saratoga Mendez HUMAN RESOURCES COMPENSATION ANALYST.FINAL CLEANER Work Phone: [facility] 11-21-2022 12:56-0400 Diastolic blood pressure 84 mm[Hg] Saratoga Mendez HUMAN RESOURCES COMPENSATION ANALYST.FINAL CLEANER Work Phone: [facility] 11-21-2022 12:56-0400 Heart rate 76 /min Saratoga Mendez HUMAN RESOURCES COMPENSATION ANALYST.FINAL CLEANER Work Phone: [facility] 11-21-2022 12:56-0400 SaO2% (BldA) [Mass fraction] 99 % Saratoga Mendez HUMAN RESOURCES COMPENSATION ANALYST.FINAL CLEANER Work Phone: [facility] 11-21-2022 12:56-0400 Systolic blood pressure 146 mm[Hg] Deyanira Mendez HUMAN RESOURCES COMPENSATION ANALYST.FINAL CLEANER Work Phone: [facility] 07-01-2022 15:03-0400 Body weight 68.04 kg Prisca Cox MD Work Phone: [facility] 07-01-2022 15:03-0400 Diastolic blood pressure 60 mm[Hg] Prisca Cox MD Work Phone: [facility] 07-01-2022 15:03-0400 Systolic blood pressure 124 mm[Hg] Prisca Cox MD Work Phone: [facility] 06-25-2022 10:19-0400 Body weight 68.04 kg Olga Steinberg HUMAN RESOURCES COMPENSATION ANALYST.CNM Work Phone: [facility] 06-25-2022 10:19-0400 Diastolic blood pressure 70 mm[Hg] Olga Rennerts HUMAN RESOURCES COMPENSATION ANALYST.CNM Work Phone: [facility] 06-25-2022 10:19-0400 Systolic blood pressure 124 mm[Hg] Olga Rennerts HUMAN RESOURCES COMPENSATION ANALYST.CNM Work Phone: [facility] 05-07-2022 14:09-0400 Body temperature 96.8 [degF] Robert Masci DO Work Phone: [facility] 05-07-2022 14:09-0400 Diastolic blood pressure 75 mm[Hg] Robert Masci DO Work Phone: [facility] 05-07-2022 14:09-0400 Heart rate 68 /min Robert Masci DO Work Phone: [facility] 05-07-2022 14:09-0400 Systolic blood pressure 160 mm[Hg] Robert Masci DO Work Phone: [facility] 04-11-2022 15:40-0500 Body temperature 97.2 [degF] Robert Masci DO Work Phone: [facility] 04-11-2022 15:40-0500 Body weight 71.22 kg Robert Masci DO Work Phone: [facility] 04-11-2022 15:40-0500 Diastolic blood pressure 82 mm[Hg] Robert Masci DO Work Phone: [facility] 04-11-2022 15:40-0500 Heart rate 76 /min Robert Masci DO Work Phone: [facility] 04-11-2022 15:40-0500 SaO2% (BldA) [Mass fraction] 99 % Robert Leungi DO Work Phone: [facility] 04-11-2022 15:40-0500 Systolic blood pressure 148 mm[Hg] Robert Leungi DO Work Phone: [facility] 04-01-2022 14:36-0500 Body height 163 cm Robert Leungi DO Work Phone: [facility] 04-01-2022 14:36-0500 Body temperature 97.9 [degF] Robert Leungi DO Work Phone: [facility] 04-01-2022 14:36-0500 Body weight 71.44 kg Robert Leungi DO Work Phone: [facility] 04-01-2022 14:36-0500 Diastolic blood pressure 86 mm[Hg] Robert Leungi DO Work Phone: [facility] 04-01-2022 14:36-0500 Heart rate 87 /min Robert Leungi DO Work Phone: [facility] 04-01-2022 14:36-0500 SaO2% (BldA) [Mass fraction] 99 % Robert Leungi DO Work Phone: [facility] 04-01-2022 14:36-0500 Systolic blood pressure 143 mm[Hg] Robert Madhui DO Work Phone: [facility] 02-19-2022 14:45-0500 Body temperature 97 [degF] Dr. Angel Fullre Work Phone: [facility] Work Phone: 02-19-2022 14:45-0500 Diastolic blood pressure 65 mm[Hg] Dr. Angel Fuller Work Phone: [facility] Work Phone: 02-19-2022 14:45-0500 Heart rate 72 /min Dr. Angel Fuller Work Phone: [facility] Work Phone: 02-19-2022 14:45-0500 Respiratory rate 16 /min Dr. Angel Fuller Work Phone: [facility] Work Phone: 02-19-2022 14:45-0500 SaO2% (BldA) [Mass fraction] 100 % Dr. Angel Fuller Work Phone: [facility] Work Phone: 02-19-2022 14:45-0500 Systolic blood pressure 130 mm[Hg] Dr. Angel Fuller Work Phone: [facility] Work Phone: 02-06-2022 08:37-0500 Body height 162.[address] Angel Fuller Work Phone: [facility] Work Phone: 02-06-2022 08:37-0500 Body mass index (BMI) [Ratio] 26.2 kg/m2 Dr. Angel Fuller Work Phone: [facility] Work Phone: 02-06-2022 08:37-0500 Body temperature 96.5 [degF] Dr. Angel Fuller Work Phone: [facility] Work Phone: 02-06-2022 08:37-0500 Body weight 69.[address] Angel Fuller Work Phone: [facility] Work Phone: 02-06-2022 08:37-0500 Diastolic blood pressure 84 mm[Hg] Dr. Angel Fuller Work Phone: [facility] Work Phone: 02-06-2022 08:37-0500 Heart rate 73 /min Dr. Angel Fuller Work Phone: [facility] Work Phone: 02-06-2022 08:37-0500 Respiratory rate 18 /min Dr. Angel Fuller Work Phone: [facility] Work Phone: 02-06-2022 08:37-0500 SaO2% (BldA) [Mass fraction] 97 % Dr. Angel Fuller Work Phone: [facility] Work Phone: 02-06-2022 08:37-0500 Systolic blood pressure 144 mm[Hg] Dr. Angel Fuller Work Phone: [facility] Work Phone: 12-26-2021 15:48-0400 Body weight 67.59 kg Andres Vasquez MD Work Phone: [facility] 12-26-2021 15:48-0400 Diastolic blood pressure 76 mm[Hg] Andres Vasquez MD Work Phone: [facility] 12-26-2021 15:48-0400 Systolic blood pressure 128 mm[Hg] Andres Vasquez MD Work Phone: [facility] 07-30-2021 14:13-0400 Body height 163.8 cm [place] Mendez HUMAN RESOURCES COMPENSATION ANALYST.FINAL CLEANER Work Phone: [facility] 07-30-2021 14:13-0400 Body temperature 98.1 [degF] Deyanira Mendez HUMAN RESOURCES COMPENSATION ANALYST.FINAL CLEANER Work Phone: [facility] 07-30-2021 14:13-0400 Body weight 65.09 kg Deyanira Mendez HUMAN RESOURCES COMPENSATION ANALYST.FINAL CLEANER Work Phone: [facility] 07-30-2021 14:13-0400 Diastolic blood pressure 80 mm[Hg] [place] Mendez HUMAN RESOURCES COMPENSATION ANALYST.FINAL CLEANER Work Phone: [facility] 07-30-2021 14:13-0400 Heart rate 90 /min Deyanira Mendez HUMAN RESOURCES COMPENSATION ANALYST.FINAL CLEANER Work Phone: [facility] 07-30-2021 14:13-0400 SaO2% (BldA) [Mass fraction] 97 % [place] Mendez HUMAN RESOURCES COMPENSATION ANALYST.FINAL CLEANER Work Phone: [facility] 07-30-2021 14:13-0400 Systolic blood pressure 128 mm[Hg] Deyanira Mendez APRN.FINAL CLEANER Work Phone: [facility] 07-12-2021 18:11-0400 Body temperature 97.59 [degF] Adriana Vasquez APRN.FINAL CLEANER Work Phone: [facility] 07-12-2021 18:11-0400 Body weight 66.04 kg Adriana Vasquez APRN.FINAL CLEANER Work Phone: [facility] 07-12-2021 18:11-0400 Diastolic blood pressure 92 mm[Hg] Adriana Vasquez APRN.FINAL CLEANER Work Phone: [facility] 07-12-2021 18:11-0400 Heart rate 87 /min Adriana Vasquez APRN.FINAL CLEANER Work Phone: [facility] 07-12-2021 18:11-0400 Respiratory rate 20 /min Adriana Vasquez APRN.FINAL CLEANER Work Phone: [facility] 07-12-2021 18:11-0400 SaO2% (BldA) [Mass fraction] 99 % Adriana Vasquez APRN.FINAL CLEANER Work Phone: [facility] 07-12-2021 18:11-0400 Systolic blood pressure 162 mm[Hg] Adriana Vasquez APRN.FINAL CLEANER Work Phone: [facility] 06-10-2021 22:25-0400 Body temperature 98.2 [degF] Dr. Angel Fuller Work Phone: [facility] Work Phone: 06-10-2021 22:25-0400 Diastolic blood pressure 75 mm[Hg] Dr. Angel Fuller Work Phone: [facility] Work Phone: 06-10-2021 22:25-0400 Systolic blood pressure 149 mm[Hg] Dr. Angel Fuller Work Phone: [facility] Work Phone: 06-10-2021 21:36-0400 Heart rate 81 /min Dr. Angel Fuller Work Phone: [facility] Work Phone: 06-10-2021 21:36-0400 Respiratory rate 16 /min Dr. Angel Fuller Work Phone: [facility] Work Phone: 06-10-2021 21:36-0400 SaO2% (BldA) [Mass fraction] 98 % Dr. Angel Fuller Work Phone: [facility] Work Phone: 06-10-2021 16:57-0400 Body height 162.[address] Angel Fuller Work Phone: [facility] Work Phone: 06-10-2021 16:57-0400 Body mass index (BMI) [Ratio] 23.8 kg/m2 Dr. Angel Fuller Work Phone: [facility] Work Phone: 06-10-2021 16:57-0400 Body weight [address] Angel Fuller Work Phone: [facility] Work Phone: 06-01-2021 13:30-0400 Body temperature 98.4 [degF] Adriana Vasquez APRN.FINAL CLEANER Work Phone: [facility] 06-01-2021 13:30-0400 Body weight 63.78 kg Adriana Vasquez APRN.FINAL CLEANER Work Phone: [facility] 06-01-2021 13:30-0400 Diastolic blood pressure 90 mm[Hg] Adriana Vasquez APRN.FINAL CLEANER Work Phone: [facility] 06-01-2021 13:30-0400 Heart rate 82 /min Adriana Vasquez APRN.FINAL CLEANER Work Phone: [facility] 06-01-2021 13:30-0400 Respiratory rate 14 /min Adriana Vasquez APRN.FINAL CLEANER Work Phone: [facility] 06-01-2021 13:30-0400 SaO2% (BldA) [Mass fraction] 99 % Adriana Vasquez APRN.FINAL CLEANER Work Phone: [facility] 06-01-2021 13:30-0400 Systolic blood pressure 130 mm[Hg] Adriana Vasquez APRN.FINAL CLEANER Work Phone: [facility] 05-15-2021 13:05-0400 Body height 161.[address] Angel Fuller Work Phone: [facility] Work Phone: 05-15-2021 13:05-0400 Body mass index (BMI) [Ratio] 24.6 kg/m2 Dr. Anegl Fuller Work Phone: [facility] Work Phone: 05-15-2021 13:05-0400 Body temperature 96.8 [degF] Dr. Angel Fuller Work Phone: [facility] Work Phone: 05-15-2021 13:05-0400 Body weight 64.[address] Angel Fuller Work Phone: [facility] Work Phone: 05-15-2021 13:05-0400 Diastolic blood pressure 88 mm[Hg] Dr. Angel Fuller Work Phone: [facility] Work Phone: 05-15-2021 13:05-0400 Heart rate 79 /min Dr. Angel Fuller Work Phone: [facility] Work Phone: 05-15-2021 13:05-0400 Respiratory rate 18 /min Dr. Angel Fuller Work Phone: [facility] Work Phone: 05-15-2021 13:05-0400 SaO2% (BldA) [Mass fraction] 100 % Dr. Angel Fuller Work Phone: [facility] Work Phone: 05-15-2021 13:05-0400 Systolic blood pressure 150 mm[Hg] Dr. Angel Fuller Work Phone: [facility] Work Phone: 02-07-2021 07:33-0500 Body mass index (BMI) [Ratio] 23.7 kg/m2 Dr. Angel Fuller Work Phone: [facility] Work Phone: 02-07-2021 07:33-0500 Body temperature 97 [degF] Dr. Angel Fuller Work Phone: [facility] Work Phone: 02-07-2021 07:33-0500 Body weight 61.[address] Angel Fuller Work Phone: [facility] Work Phone: 02-07-2021 07:33-0500 Diastolic blood pressure 88 mm[Hg] Dr. Angel Fuller Work Phone: [facility] Work Phone: 02-07-2021 07:33-0500 Heart rate 80 /min Dr. Angel Fuller Work Phone: [facility] Work Phone: 02-07-2021 07:33-0500 Respiratory rate 18 /min Dr. Angel Fuller Work Phone: [facility] Work Phone: 02-07-2021 07:33-0500 SaO2% (BldA) [Mass fraction] 99 % Dr. Angel Fuller Work Phone: [facility] Work Phone: 02-07-2021 07:33-0500 Systolic blood pressure 140 mm[Hg] Dr. Angel Fuller Work Phone: [facility] Work Phone: Encounters Encounter Date Encounter Type Care Provider Facility Start: 07-29-2024 End: 07-29-[address] Jeovanny Moore DO [facility] Work Phone: Start: 07-29-2024 End: 07-29-[address] Angel Fuller MD Work Phone: [facility] Work Phone: Start: 07-22-2024 End: 07-22-[address] Jeovanny Moore DO -[place] [facility] Work Phone: Start: 07-22-2024 End: 07-22-[address] Angel Fuller MD Work Phone: [facility] Work Phone: Start: 07-14-2024 End: 07-14-[address] Anthony Mckeon MD -[facility] Work Phone: Start: 07-14-2024 End: 07-14-2024 ambulatory Anthony Mckeon Facility:[facility] Start: 07-13-2024 End: 07-13-[address] Jeovanny Moore DO -[place] [facility] Work Phone: Start: 07-13-2024 End: 07-13-[address] Angel Fuller MD Work Phone: [facility] Work Phone: Start: 07-12-2024 End: 07-12-2024 Patient encounter procedure Karie Meyer DO Work Phone: Vascular Surgery Comment on above: Venous (peripheral) insufficiency (Primary Dx) Start: 07-12-2024 End: 07-12-2024 ambulatory ANGEL FULLER Facility:[facility] Start: 06-30-2024 End: 06-30-[address] Angel Fuller MD Work Phone: [facility] Work Phone: Start: 06-30-2024 End: 06-30-[address] Anthony Mckeon MD -[facility] Work Phone: Start: 06-30-2024 End: 06-30-[address] Anthony Mckeon MD -[facility] Work Phone: Start: 06-30-2024 End: 06-30-2024 ambulatory [facility] Facility:[facility] Start: 06-30-2024 End: 06-30-2024 ambulatory [facility] Facility:[facility] Start: 06-24-2024 End: 06-24-[address] Jeovanny Moore DO -[place] [facility] Work Phone: Start: 06-24-2024 End: 06-24-2024 ambulatory Angel Fuller Facility:[facility] Start: 06-14-2024 End: 06-14-2024 ambulatory ANGEL FULLER Facility:[facility] Start: 06-09-2024 End: 06-09-[address] Anthony Mckeon MD -[facility] Work Phone: Start: 06-09-2024 End: 06-09-2024 ambulatory [facility] Facility:[facility] Start: 06-03-2024 End: 06-03-2024 Telephone encounter Karie Meyer DO Work Phone: Vascular Surgery Start: 05-25-2024 End: 05-25-2024 ambulatory ANGEL FULLER Facility:[facility] Start: 05-17-2024 ambulatory [facility] Facilit y:[facility] Start: 05-17-2024 Non-patient / Non-visit Dr. Tory Dial ddiqi -[facility]- Start: 05-17-2024 End: 05-17-[address] Angel Fuller MD Work Phone: [facility] Work Phone: Start: 05-17-2024 End: 05-17-[address] Anthony Mckeon MD -Pulmonary Services/Neurology Work Phone: Start: 05-17-2024 End: 05-17-2024 ambulatory [facility] Facility:[facility] Start: 05-13-2024 End: 05-13-[address] ANGEL FULLER MD Facility:[facility] Start: 05-11-2024 ambulatory Shakeel Spears Facility:[facility] Start: 05-11-2024 Non-patient / Non-visit Dr. Shakeel parnell MD -[facility] Start: 05-11-2024 End: 05-11-[address] Angel Fuller MD Work Phone: [facility] Work Phone: Start: 05-11-2024 End: 05-11-[address] Anthony Mckeon MD -Pulmonary Services/Neurology Work Phone: Start: 05-10-2024 End: 05-10-[address] Anthony Mckeon MD -[facility] Work Phone: Start: 05-10-2024 End: 05-11-2024 ambulatory Anthony Mckeon Facility:[facility] Start: 05-02-2024 End: 05-02-2024 Patient encounter procedure Mago COLEMAN -[place] [facility] Work Phone: Start: 05-02-2024 End: 05-02-2024 ambulatory Mago Macdonald Facility:[facility] Start: 04-28-2024 End: 05-02-2024 ambulatory PAVEL SIMON APRN-FINAL CLEANER Facility:A Start: 04-18-2024 End: 04-18-2024 Emergency department patient visit Dr. Julien Holder DO -Emergency Department Work Phone: Start: 04-18-2024 End: 04-18-[address] Angel Fuller MD Work Phone: [facility] Work Phone: Start: 04-18-2024 End: 04-18-[address] Angel Fuller MD Work Phone: -[facility] Work Phone: Start: 04-18-2024 End: 04-18-2024 ambulatory Angel Fuller Facility:[facility] Start: 04-16-2024 End: 04-16-2024 Emergency department patient visit Dr. Easton Hanson DO -Emergency Department Work Phone: Start: 04-12-2024 End: 04-12-2024 Emergency department patient visit Dr. Easton Hanson DO -Emergency Department Work Phone: Start: 04-12-2024 End: 04-12-2024 Patient encounter procedure Ang Skaggs TRAIN DRIVER-C [facility] Work Phone: Start: 04-12-2024 End: 04-12-2024 ambulatory Angel Fuller Facility:[facility] Start: 04-05-2024 End: 04-05-[address] Cade Monroy MD -Medical Out Work Phone: Start: 04-05-2024 End: 04-05-2024 ambulatory Cade Monroy Facility:[facility] Start: 04-04-2024 End: 04-04-2024 Patient encounter procedure Linda Amaya TRAIN DRIVER-C -[facility] [place] Work Phone: Start: 04-04-2024 End: 04-04-[address] Anthony Mckeon MD -[facility] Work Phone: Start: 04-04-2024 End: 04-04-2024 ambulatory Anthony Mckeon Facility:[facility] Start: 04-04-2024 End: 04-04-2024 ambulatory Angel Fuller Facility:[facility] Start: 03-30-2024 End: 03-30-2024 Patient encounter procedure Mago COLEMAN -[facility] Work Phone: Start: 03-30-2024 End: 03-30-2024 ambulatory Mago Macdonald Facility:[facility] Start: 03-25-2024 End: 03-29-2024 ambulatory SHAHLA LOZADA HUMAN RESOURCES COMPENSATION ANALYST-FINAL CLEANER Facility:A Start: 03-22-2024 End: 03-22-2024 Patient encounter procedure Mago COLEMAN -[place] Work Phone: Start: 03-22-2024 End: 03-22-2024 ambulatory Mago Macdonald Facility:[facility] Start: 03-17-[address] ANGEL FULLER MD Facil ity:A Start: 03-17-2024 End: 03-17-[address] ANGEL FULLER MD Facility:A Start: 03-17-2024 End: 03-17-2024 Patient encounter procedure THONG AGUILAR HUMAN RESOURCES COMPENSATION ANALYST-FINAL CLEANER [facility] Start: 03-12-2024 End: 03-13-2024 Emergency department patient visit Dr. Christopher Baker-[facility] -Emergency Department Work Phone: Start: 03-06-2024 End: 03-06-2024 Patient encounter procedure Luis Daniel Son TRAIN DRIVER- -[facility] Work Phone: Start: 03-06-2024 End: 03-06-2024 ambulatory Luis Daniel Son TRAIN DRIVER Facility:[facility] Start: 03-04-2024 End: 03-07-2024 Telephone encounter Deyanira Mendez HUMAN RESOURCES COMPENSATION ANALYST.FINAL CLEANER Work Phone: Hematology/Oncology Comment on above: Patient Update Start: 02-22-2024 End: 05-13-2024 Telephone encounter Baron Kevin Mammogram Comment on above: disk request Start: 02-19-2024 End: 02-19-[address] Cade Monroy MD -[facility] Work Phone: Start: 02-19-2024 End: 02-19-2024 ambulatory Angel Fuller Facility:[facility] Start: 02-04-2024 End: 02-04-2024 ambulatory PRISCA COX Facility:[facility] Start: 02-04-2024 End: 02-04-2024 Subsequent hospital visit by physician Screen Mammo [facility] Mammogram Comment on above: Encounter for screen ing mammogram for malignant neoplasm of breast [Z12.31] Start: 01-14-2024 End: 01-14-[address] Angel Fuller MD Work Phone: -[facility] Work Phone: Start: 01-14-2024 End: 01-14-2024 ambulatory TONJA ARREOLA Facility:[facility] Start: 01-13-2024 End: 01-13-2024 Telephone encounter Prisca Cox MD Work Phone: OB/Gynecology Comment on above: Orders Start: 12-08-2023 End: 12-12-[address] ANGEL FULLER MD Facility:[facility] Start: 11-20-2023 End: 11-21-2023 Emergency department patient visit Fabien Mccann Facility:[facility] Start: 11-19-2023 End: 11-19-2023 ambulatory [facility] Facility:[facility] Start: 11-12-2023 End: 11-12-2023 Telephone encounter Guy Gonzalez APRN.FINAL CLEANER Work Phone: OB/Gynecology Comment on above: Patient Question Start: 10-07-2023 End: 10-07-2023 ambulatory Angel Fuller Facility:[facility] Start: 09-10-2023 ambulatory Angel Fuller [facility] Start: 09-08-2023 End: 09-08-2023 ambulatory PRISCA COX Facility:[facility] Start: 09-08-2023 End: 09-08-2023 Patient encounter procedure Prisca Cox MD Work Phone: OB/Gynecology Comment on above: Urinary frequency (P rimary Dx); Frequent UTI Start: 08-18-2023 End: 08-18-2023 ambulatory Angel Fuller Facility:[facility] Start: 08-06-2023 End: 08-06-2023 ambulatory Angel Fuller Facility:[facility] Start: 07-29-2023 Telephone encounter Deyanira naranjo APRN.FINAL CLEANER Work Phone: Hematology/Oncology Comment on above: Appointment Start: 06-24-2023 End: 06-24-[address] Angel Fuller Work Phone: [facility] Work Phone: Start: 06-24-2023 End: 06-24-[address] Angel Fuller Work Phone: [facility]-Pulmonary Services/Neurology Work Phone: Start: 06-17-2023 End: 06-17-[address] Angel Fuller Work Phone: [facility] Work Phone: Start: 06-17-2023 End: 06-17-[address] Angel Fuller Work Phone: [facility]-Cardiovascular Services Work Phone: Start: 06-13-2023 Telephone encounter Guy Prattgloria hazel HUMAN RESOURCES COMPENSATION ANALYST.FINAL CLEANER Work Phone: OB/Gynecology Comment on above: Results Start: 06-12-2023 Telephone encounter Guy hazel HUMAN RESOURCES COMPENSATION ANALYST.FINAL CLEANER Work Phone: OB/Gynecology Comment on above: Results Start: 06-11-2023 End: 06-11-2023 Patient encounter procedure Guy Gonzalez HUMAN RESOURCES COMPENSATION ANALYST.FINAL CLEANER Work Phone: OB/Gynecology Comment on above: Genitourinary syndro me of menopause (Primary Dx); Vaginal irritation; Urinary frequency; Screening for thyroid disorder; Hirsutism Start: 06-10-2023 End: 06-10-[address] Angel Fuller Work Phone: [facility] Work Phone: Start: 05-14-2023 End: 05-14-[address] Angel Fuller Work Phone: [facility] Work Phone: Start: 05-14-2023 End: 05-14-[address] Angel Fuller Work Phone: [facility] Work Phone: Start: 04-09-2023 End: 04-09-[address] Angel Fuller Work Phone: [facility] Work Phone: Start: 03-20-2023 End: 03-20-[address] Angel Fuller Work Phone: [facility] Work Phone: Start: 03-20-2023 End: 03-20-[address] Angel Fuller Work Phone: [facility]-Medical Out Work Phone: Start: 03-09-2023 End: 03-09-[address] Angel Fuller Work Phone: [facility] Work Phone: Start: 02-26-2023 End: 02-27-2023 ambulatory THONG AGUILAR APRN-FINAL CLEANER Facility:A Start: 02-25-2023 End: 02-25-[address] Angel Fuller Work Phone: [facility] Work Phone: Start: 02-25-2023 End: 02-25-[address] Angel Fuller Work Phone: [facility] Work Phone: Start: 02-24-2023 End: 02-24-[address] Angel Fuller Work Phone: [facility] Work Phone: Start: 02-24-2023 End: 02-24-[address] Angel Fuller Work Phone: [facility]-Laboratory Work Phone: Start: 02-19-2023 End: 02-19-[address] Angel Fuller Work Phone: [facility] Work Phone: Start: 02-04-2023 End: 02-04-[address] Angel Fuller Work Phone: [facility] Work Phone: Start: 02-02-2023 End: 02-02-2023 Subsequent hospital visit by physician Screen Mammo [facility] Mammogram Comment on above: Personal history of malignant neoplasm of breast [Z85.3] Start: 12-17-2022 Telephone encounter Prisca Cox MD Work Phone: OB/Gynecology Comment on above: Appointment Start: 11-21-2022 End: 11-21-2022 ambulatory Deyanira Mendez HUMAN RESOURCES COMPENSATION ANALYST.FINAL CLEANER Work Phone: Hematology/Oncology Comment on above: Personal history of malignant neoplasm of breast (Primary Dx); Encounter for screening mammogram for high-risk patient Start: 11-21-2022 End: 11-21-2022 Patient encounter procedure Deyanira Mendez HUMAN RESOURCES COMPENSATION ANALYST.FINAL CLEANER Work Phone: [facility] Start: 07-15-2022 End: 07-20-2022 ambulatory ILANA TAVAREZ MD Facility:A Start: 07-03-2022 Telephone encounter Adelaida [facility] babar HUMAN RESOURCES COMPENSATION ANALYST.FINAL CLEANER Work Phone: OB/Gynecology Comment on above: Results Start: 07-01-2022 End: 07-01-2022 Patient encounter procedure Prisca Cox MD Work Phone: OB/Gynecology Comment on above: Hematuria, unspecifi ed type (Primary Dx); Dysuria; Vaginal dryness; Abnormal facial hair; Low grade fever Start: 06-25-2022 End: 06-25-2022 Patient encounter procedure Olga Steinberg APRN.CNM Work Phone: OB/Gynecology Comment on above: Dysuria (Primary Dx) ; Vaginal burning Start: 05-30-2022 End: 05-31-2022 ambulatory NAHOMI LOBO HUMAN RESOURCES COMPENSATION ANALYST-FINAL CLEANER Facility:[facility] Start: 05-30-2022 End: 05-30-2022 Patient encounter procedure NAHOMI LOBO HUMAN RESOURCES COMPENSATION ANALYST-FINAL CLEANER [facility] Start: 05-22-2022 Telephone encounter Irena MIRANDA Hematology/Oncology Comment on above: Social Work Services Start: 05-07-2022 End: 05-07-2022 ambulatory Robert Weber DO Work Phone: Hematology/Oncology Comment on above: Fever, low grade (Pr imary Dx) Start: 05-07-2022 End: 05-07-2022 Patient encounter procedure Robert Weber DO Work Phone: [facility] Start: 05-06-2022 Orders Only Robert Weber D O Work Phone: Hematology/Oncology Comment on above: 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, estrogen receptor positive (HCC) (Primary Dx) Start: 04-21-2022 Telephone encounter Robert caro DO Work Phone: Hematology/Oncology Comment on above: Patient Question Start: 04-11-2022 End: 04-11-2022 ambulatory Robert Weber DO Work Phone: Hematology/Oncology Comment on above: Fever, unknown origi n (Primary Dx); Personal history of malignant neoplasm of breast Start: 04-11-2022 End: 04-11-2022 Patient encounter procedure Robert Weber DO Work Phone: [facility] Start: 04-11-2022 Telephone encounter Robert caro DO Work Phone: Hematology/Oncology Comment on above: AVS 04/11/22 Start: 04-06-2022 Telephone encounter Robert caro DO Work Phone: Hematology/Oncology Comment on above: Results (Labs and enmanuel ne scan) Start: 04-04-2022 Telephone encounter [facility] Comment on above: disk and report Start: 04-03-2022 End: 04-03-2022 Subsequent hospital visit by physician [facility] Work Phone: Nuclear Medicine Comment on above: Fever, unspecified f ever cause [R50.9] Start: 04-02-2022 Telephone encounter Robert caro DO Work Phone: Hematology/Oncology Comment on above: Results (US Legs) Start: 04-01-2022 End: 04-01-2022 ambulatory Robert Weber DO Work Phone: Hematology/Oncology Comment on above: Fever, unspecified f ever cause (Primary Dx); Coagulation defect (HCC); Leg swelling; Malignant neoplasm of upper-inner quadrant of right breast in female, estrogen receptor positive (HCC); Carcinoma of right breast, estrogen and progesterone receptor positive (HCC); Bone pain Start: 04-01-2022 End: 04-01-2022 Patient encounter procedure Robert Rubin Gus JACKSON Work Phone: [facility] Start: 03-20-2022 Telephone encounter Deyanira Cha enter HUMAN RESOURCES COMPENSATION ANALYST.FINAL CLEANER Work Phone: Hematology/Oncology Comment on above: Appointment Start: 03-18-2022 Telephone encounter Deyanira Cha enter HUMAN RESOURCES COMPENSATION ANALYST.FINAL CLEANER Work Phone: Hematology/Oncology Comment on above: Future Appointment Start: 03-03-2022 End: 03-07-2022 Outreach Lab SHAHLA LOZADA HUMAN RESOURCES COMPENSATION ANALYST-FINAL CLEANER [facility] Start: 02-26-2022 End: 02-26-2022 Patient encounter procedure THONG AGUILAR HUMAN RESOURCES COMPENSATION ANALYST-FINAL CLEANER [facility] Start: 02-25-2022 End: 02-25-2022 Subsequent hospital visit by physician [facility] (I-Stat) Work Phone: Cat Scan Start: 02-21-2022 Non-patient / Non-visit Dr. Gaming Work Phone: [facility] Start: 02-21-2022 End: 02-21-[address] Angel Fuller Work Phone: [facility] Work Phone: Start: 02-21-2022 End: 02-21-[address] Angel Fuller Work Phone: [facility]-Cardiovascular Services Start: 02-19-[address] Angel Fuller Work Phone: [facility]-Medical Out Start: 02-06-2022 End: 02-06-[address] Angel Fuller Work Phone: [facility] Work Phone: Start: 02-06-2022 End: 02-06-[address] Angel Fuller Work Phone: [facility] Start: 02-02-2022 Documentation procedure Mammog mei Coordinator [facility] Start: 02-02-2022 Letter encounter Mammography Coordinator [facility] Department Start: 01-31-2022 End: 01-31-2022 Subsequent hospital visit by physician Screen Mammo [facility] Mammogram Comment on above: Encounter for screen ing mammogram for malignant neoplasm of breast [Z12.31] Start: 01-23-2022 End: 01-23-2022 Subsequent hospital visit by physician Us [facility] Mob 1 Work Phone: Radiology Start: 12-26-2021 End: 12-26-2021 Patient encounter procedure Andres Vasquez MD Work Phone: OB/Gynecology Comment on above: Urinary urgency (Alethea lalo Dx); Dysuria Start: 12-26-2021 Telephone encounter Prisca Cox MD Work Phone: OB/Gynecology Comment on above: Patient Question Start: 07-30-2021 End: 07-30-2021 ambulatory Deyanira Mendez APRN.FINAL CLEANER Work Phone: Hematology/Oncology Comment on above: 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 Angel Fuller Work Phone: [facility] Start: 07-17-2021 End: 07-17-[address] Angel Fuller Work Phone: [facility] Start: 07-12-2021 End: 07-12-2021 Patient encounter procedure Adriana Vasquez APRN.FINAL CLEANER Work Phone: [facility] Comment on above: Discoloration of ski n (Primary Dx) Start: 07-08-2021 End: 07-08-[address] Angel Fuller Work Phone: [facility] Start: 06-26-2021 Telephone encounter Prisca Cox MD Work Phone: OB/Gynecology Comment on above: Patient Question Start: 06-26-2021 End: 06-26-2021 Subsequent hospital visit by physician [facility] (I-Stat) Work Phone: Cat Scan Start: 06-10-2021 End: 06-10-2021 Emergency department patient visit Dr. Angel Fluler Work Phone: [facility]-Emergency Department Start: 06-03-2021 Non-patient / Non-visit Dr. Gaming Work Phone: [facility] Start: 06-03-2021 End: 06-03-[address] Angel Fuller Work Phone: [facility]-Pulmonary Services/Neurology Start: 06-01-2021 End: 06-01-2021 Patient encounter procedure Adriana Vasquez APRN.FINAL CLEANER Work Phone: [facility] Comment on above: Cough (Primary Dx); Suspected COVID-19 virus infection Start: 05-15-2021 End: 05-15-[address] Angel Fuller Work Phone: [facility]-Laboratory, [place] Start: 04-01-2021 End: 04-01-[address] Angel Fuller Work Phone: [facility] Start: 02-26-2021 End: 02-26-2021 Patient encounter procedure DONG BARBOSA HUMAN RESOURCES COMPENSATION ANALYST-FINANCIAL REPORTING MANAGER [facility] Start: 02-19-[address] Angel Fuller Work Phone: [facility]-Medical Out Start: 02-07-2021 End: 02-07-[address] Angel Fuller Work Phone: [facility] Procedures Date Procedure Procedure Detail Performing Clinician Start: 06-30-2024 Antibody to lupus La protein measurement Dr. Angel Fuller MD Work Phone: Comment on above: Performed at: [place] [id number] Director: Dannie Meza PhD, Phone: [phone] Start: 06-30-2024 Antibody to SS-A measurement Dr. Angel Fuller MD Work Phone: Start: 04-18-2024 Plain chest X-ray Dr. Aura Fuller MD Work Phone: Start: 04-18-[address] Angel Fuller MD Work Phone: Start: 04-18-2024 Measurement of renal function Dr. Angel Fuller MD Work Phone: Comment on above: GFR Calc Start: 04-18-2024 Urnls dip stick/tabl et reagent auto microscopy Dr. Angel Fuller MD Work Phone: Start: 04-18-2024 X-ray of sacrum and coccyx, two or more views Dr. Angel Fuller MD Work Phone: Start: 04-16-2024 Computed tomography of thoracic spine without contrast Dr. Angel Fuller MD Work Phone: Start: 04-16-2024 CT of lumbar spine Dr. Angel Fuller MD Work Phone: Start: 04-12-2024 Plain chest X-ray Dr. Aura Fuller MD Work Phone: Start: 04-12-[address] Angel Fuller MD Work Phone: Start: 04-12-2024 Measurement of renal function Dr. Angel Fuller MD Work Phone: Comment on above: GFR Calc Start: 04-12-2024 CT cervical spine wi thout contrast Dr. Angel Fuller MD Work Phone: Start: 04-12-2024 CT of head without contrast Dr. Angel Fuller MD Work Phone: Start: 04-04-[address] Arthur RETANA Work Phone: Comment on above: Performed at: [place] [id number] Director: Dannie Meza PhD, Phone: [phone] Start: 04-04-2024 Antibody to centrome re measurement Dr. Angel Fuller MD Work Phone: Comment on above: Test not performed Start: 04-04-2024 Antibody to extracta ble nuclear antigen measurement Dr. Angel Fuller MD Work Phone: Comment on above: Test not performed Start: 04-04-2024 Antibody to ZHANNA-[address] Angel Fuller MD Work Phone: Comment on above: Test not performed Start: 04-04-2024 Antibody to lupus La protein measurement Dr. Angel Fuller MD Work Phone: Comment on above: Test not performed Start: 04-04-2024 Antibody to SS-A measurement Dr. Angel Fuller MD Work Phone: Comment on above: Test not performed Start: 04-04-[address] Angel Fuller MD Work Phone: Comment on above: Test not performed Start: 04-04-2024 Measurement of C-darrel ctive protein using high sensitivity technique Dr. Angel Fuller MD Work Phone: Comment on above: C-Reactive Protein ( CRP) provides useful information for thediagnosis, therapy and monitoring of inflammatory processesand associated diseases. For the evaluation of Relative Riskfor Cardiovascular Disease, a High Sensitivity CRP (HSCRP)should be ordered. Start: 04-04-2024 Measurement of renal function Dr. Angel Fuller MD Work Phone: Comment on above: GFR Calc Start: 04-04-2024 TESTER ARMATURE OR FIELDS antibody measurement Dr. Angel Fuller MD Work Phone: Comment on above: Test not performed Start: 04-04-2024 Urine lambda light c shwetha measurement Dr. Angel Fuller MD Work Phone: Start: 03-30-2024 MRI of cervical spine Joe Fuller MD Work Phone: Start: 03-22-2024 X-ray of cervical spine Dr. Angel Fuller MD Work Phone: Start: 03-12-2024 CT angiography of ne ck vessels Dr. Angel Fuller MD Work Phone: Start: 01-14-2024 US scan of thyroid Dr. Angel Fuller MD Work Phone: Start: 09-08-2023 Urnls dip stick/tabl et rgnt auto w/o microscopy Prisca Cox MD Work Phone: Start: 06-11-2023 BACTERIAL VAGINOSIS NAAT Guy Gonzalez APRN.FINAL CLEANER Work Phone: Start: 06-11-2023 Iadna trichomonas vaginalis amplified probe tech Guy Gonzalez APRN.FINAL CLEANER Work Phone: Start: 06-11-2023 Urnls dip stick/tabl et rgnt auto w/o microscopy Guy Gonzalez APRN.FINAL CLEANER Work Phone: Start: 06-02-2023 Lipid 1996 panel - S ariella or Plasma Guy Gonzalez APRN.FINAL CLEANER Work Phone: Start: 05-14-2023 MRI of thoracic spine Joe Fuller Work Phone: Start: 02-25-2023 MRI of cervical spine Joe Fuller Work Phone: Start: 02-04-2023 X-ray of cervical spine Dr. Angel Fuller Work Phone: Start: 11-17-2022 Lipid 1996 panel - S ariella or Plasma Deyanira Mendez HUMAN RESOURCES COMPENSATION ANALYST.FINAL CLEANER Work Phone: Start: 07-01-2022 Urnls dip stick/tabl et reagent auto microscopy Prisca Cox MD Work Phone: Start: 06-25-2022 Urnls dip stick/tabl et rgnt auto w/o microscopy Olga Steinberg HUMAN RESOURCES COMPENSATION ANALYST.CNM Work Phone: Start: 05-07-2022 Diagnostic bone ramírez ow biopsies & aspirations Robert Caryn Masci DO Work Phone: Start: 04-03-2022 Bone &/joint imaging whole body Robert Caryn Masci DO Work Phone: Start: 02-25-2022 Ct thorax [...] microscopy Andres Vasquez MD Work Phone: Start: 07-17-2021 MRI of cervical spine Joe Fuller Work Phone: Start: 07-08-2021 X-ray of cervical spine Dr. Anegl Fuller Work Phone: Start: 06-26-2021 Ct thorax w/contrast material [facility] Provider Start: 06-10-2021 Plain chest X-ray Dr. Aura Fuller Work Phone: Start: 12-26-2020 Mammography Adriana Vasquez APRN.FINAL CLEANER Work Phone: Start: 07-12-2018 Adult depression screening assessment Adriana Vasquez APRN.FINAL CLEANER Work Phone: Start: 02-23-2014 Cataract extraction and insertion of intraocular lens DONG BARBOSA HUMAN RESOURCES COMPENSATION ANALYST-FINANCIAL REPORTING MANAGER Comment on above: bilateral Start: 02-23-1978 Hysterectomy and bilateral salpingo-oophorectomy sample (specimen) DONG BARBOSA HUMAN RESOURCES COMPENSATION ANALYST-[employer] Start: 02-23-1967 Lumpectomy of breast AYLIN BARBOSA HUMAN RESOURCES COMPENSATION ANALYST-FINANCIAL REPORTING MANAGER Comment on above: right Colonoscopy DONG GARCIA HUMAN RESOURCES COMPENSATION ANALYSTBeamly Endoscopy DONG GARCIA HUMAN RESOURCES COMPENSATION ANALYSTBeamly History of radiation therapy Personal history of radiation therapy( Confirmed ) DONG BARBOSA HUMAN RESOURCES COMPENSATION ANALYSTBeamly Plan of Treatment Date Care Activity Detail Author Start: 08-17-2033 Urine microalbumin profile DTaP,Tdap,Td Vaccine (2 - Td or Tdap) [facility] Start: 06-01-2028 Lipid panel Lipid Screening [facility] Start: 11-18-2027 Lipid 1996 panel - S ariella or Plasma Lipid Screening [facility] Start: 11-18-2027 Lipid panel Lipid Screening [facility] Start: 06-15-2027 [facility] Start: 06-01-2026 [facility] Start: 11-17-2025 [facility] Start: 02-25-2025 DIABETES SCREEN DIABETES SCREEN [facility] Start: 10-24-2024 Influenza vaccination Influenz a Vaccine (Season Ended) [facility] Start: 07-12-2024 End: 07-12-2024 Patient encounter procedure 07/12/2024 11:00 AM EDT Office Visit Vascular Surgery [address] [place] [address] Karie Meyer, DO [address] [place] [address] vein concerns Vascular Surgery Comment on above: vein concerns Start: 06-30-2024 Thiamine measurement [facility] Start: 06-24-2024 Patient referral [facility] Work Phone: Start: 04-19-2024 [facility] Start: 04-18-2024 [facility] Start: 04-13-2024 [facility] Start: 04-12-2024 Respiratory secretio n precautions [facility] Start: 04-05-2024 Iv infusion therapy/prophylaxis /dx 1st to 1 hr [facility] Start: 03-13-2024 End: 03-13-2024 [facility] Start: 02-24-2024 Advance Directive Discussion Advance Directive Discussion [facility] Start: 02-04-2024 End: 02-04-2024 Patient encounter procedure 02/04/2024 10:50 AM EST Appointment Mammogram [address] [place] [address] Mic screening prev here Mammogram Comment on above: Mic screening prev here Start: 12-15-2023 End: 12-15-2023 ambulatory 12/15/2023 10:00 AM EDT OT/PT/Speech Visit [facility] Speech Therapy [facility] [address] [place] [address] MODIFIED BARIUM SWALLOW [facility] Speech [facility] Comment on above: MODIFIED BARIUM SWAL LOW Start: 12-15-2023 End: 12-15-2023 Patient encounter procedure 12/15/2023 10:00 AM EDT Appointment [facility] [address] [place] [address] MODIFIED BARIUM SWALLOW [facility] Comment on above: MODIFIED BARIUM SWAL LOW Start: 10-25-2023 Covid-19 Vaccine ( season) Covid-19 Vaccine ( season) [facility] Start: 10-25-2023 Covid-19 Vaccine ( season) Covid-19 Vaccine ( season) [facility] Start: 10-25-2023 Influenza vaccination [facility] Start: 03-20-2023 Iv infusion therapy/prophylaxis /dx 1st to 1 hr THER/PROPH/DIAG IV INF [facility] Start: 2023 RSV Vaccine (1 - 1-d ose 75+ series) RSV Vaccine (1 - 1-dose 75+ series) [facility] Start: 02-23-2023 Advance Directive Discussion Advance Directive Discussion [facility] Start: 02-23-2023 Behavioral Health Screening Behavioral Health Screening [facility] Start: 01-31-2023 Mammography [facility] Start: 01-31-2023 Screening for malign ant neoplasm of breast Mammogram Screening [facility] Start: 10-24-2022 Covid-19 Vaccine ( season) Covid-19 Vaccine () [facility] Start: 10-24-2022 Influenza vaccination [facility] Start: 05-07-2022 End: 07-07-2022 CBC W Auto Differential panel - Blood CBC + DIFF Lab STAT Malignant neoplasm of upper-inner quadrant of right breast in female, estrogen receptor positive (HCC) Expected: 05/07/2022, Expires: 07/07/2022 [facility] Work Phone: Comment on above: Expected: 05/07/2022 , Expires: 07/07/2022 Start: 02-23-2022 ADVANCE DIRECTIVE DISCUSSION ADVANCE DIRECTIVE DISCUSSION [facility] Start: 02-23-2022 [facility]PRESSION [facility]MENT [facility] Start: 12-26-2021 Mammography MAMMOGRAM [facility] Start: 10-24-2021 Influenza vaccination [facility] Start: 06-01-2021 End: 06-15-2021 Influenza virus A and B RNA and SARS-CoV-2 (COVID-19) N gene panel - Respiratory specimen by JONATHAN with probe detection COVID WITH FLUA+B, ROUTINE Microbiology Routine Cough Suspected COVID-19 virus infection Expected: 06/01/2021, Expires: 06/15/2021 [facility] Work Phone: Comment on above: Expected: 06/01/2021 , Expires: 06/15/2021 Start: 02-23-2021 ADVANCE DIRECTIVE DISCUSSION ADVANCE DIRECTIVE DISCUSSION [facility] Start: 02-23-2021 DEPRESSION ASSESSMENT [facility] Start: 02-19-2021 Iv infusion therapy/prophylaxis /dx 1st to 1 hr [facility] Work Phone: Start: 02-11-2021 DIABETES SCREEN DIABETES SCREEN [facility] Start: 07-13-2019 Adult depression screening assessment DEPRESSION SCREENING [facility] Start: 2013 Pneumococcal Vaccine : 65+ (1 - PCV) Pneumococcal Vaccine: 65+ (1 - PCV) [facility] Start: 2013 Pneumococcal Vaccine : 65+ (1 of 1 - PCV) Pneumococcal Vaccine: 65+ (1 of 1 - PCV) [facility] Start: 2013 PNEUMOCOCCAL: 65+ (1 - PCV) PNEUMOCOCCAL: 65+ (1 - PCV) [facility] Start: 2013 PNEUMOVAX AGE 65 AND OVER WITH 5YR LOOKBACK (#1) PNEUMOVAX AGE 65 AND OVER WITH 5YR LOOKBACK (#1) [facility] Start: 02-23-2013 Medicare Annual Well ness Visit Medicare Annual Wellness Visit [facility] Start: 04-10-2010 Shingrix Vaccine (2 of 3) Shingrix Vaccine (2 of 3) [facility] Start: 2008 RSV Vaccine (1 - 1-d ose 60+ series) RSV Vaccine (1 - 1-dose 60+ series) [facility] Start: 1998 Pneumococcal Vaccine : 50+ (1 of 1 - PCV) Pneumococcal Vaccine: 50+ (1 of 1 - PCV) [facility] Start: 1998 SHINGRIX VACCINE (1 of 2) SHINGRIX VACCINE (1 of 2) [facility] Start: 1993 COLOGUARD (FIT-DNA) COLOGUARD (FIT-D NA) [facility] Start: 1993 Colonoscopy COLONOSCOPY [facility] Start: 1993 COLORECTAL CANCER SCREENING COLORECTAL CANCER SCREENING [facility] Start: [address] COLONOGRAPHY [facility] Start: 1993 FECAL OCCULT BLOOD FECAL OCCULT BLOO D [facility] Start: 1993 LIPID SCREEN LIPID SCREEN [facility] Start: 1993 Screening for malign ant neoplasm of colon [facility] Start: 1993 [facility] Start: 1967 SHINGRIX VACCINE (1 of 2) SHINGRIX VACCINE (1 of 2) [facility] Start: 1967 Urine microalbumin profile [facility] Start: 1966 Anxiety Screening Anxiety Screening [facility] Start: 1966 Depression Screening Depression Scre ening [facility] Start: 1966 HEPATITIS C SCREENING HEPATITIS C [facility] Start: 1966 Hepatitis C screening Hepatitis C [facility] Start: 1954 PNEUMOCOCCAL: 65+ (1 - PCV) PNEUMOCOCCAL: 65+ (1 - PCV) [facility] Start: 1953 COVID-19 VACCINE (#1) COVID-19 VACCI NE (#1) [facility] Start: 1953 COVID-19 VACCINE (1) COVID-19 VACCIN E (1) [facility] Start: 1948 COVID-19 VACCINE (#1) COVID-19 VACCI NE (#1) [facility] 24 Hour ECG [facility] Bacteria identified in Urine by Culture URINE CULTURE Microbiology Routine Urinary urgency 12/26/2021 4:24 PM EDT [facility] Work Phone: Bacteria identified in Urine by Culture URINE CULTURE Microbiology Routine Dysuria 06/25/2022 10:44 AM EDT [facility] Work Phone: Bacteria identified in Urine by Culture URINE CULTURE Microbiology Routine Hematuria, unspecified type 07/01/2022 4:14 PM EDT [facility] Work Phone: Bacteria identified in Urine by Culture URINE CULTURE Microbiology Routine Urinary frequency 06/11/2023 11:37 AM T [facility] Work Phone: Bacteria identified in Urine by Culture URINE CULTURE Microbiology Routine Urinary frequency 09/08/2023 11:59 AM T [facility] Work Phone: End: 05-01-2023 Bone &/joint imaging whole body NM BONE WHOLE BODY Radiology Routine Fever, unspecified fever cause Malignant neoplasm of upper-inner quadrant of right breast in female, 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, estrogen and progesterone receptor positive (HCC) Bone pain 1 Occurrences starting 04/01/2022 until 05/01/2023 [facility] Work Phone: Comment on above: 1 Occurrences starti ng 04/01/2022 until 05/01/2023 BONE MARROW ANALYSIS BONE MARROW ANALYSIS Lab Routine Fever, low grade 05/07/2022 2:26 PM EDT [facility] Work Phone: BONE MARROW CHROMOSO ME ANAL BONE MARROW CHROMOSOME ANAL Lab Routine Fever, low grade 05/07/2022 2:26 PM EDT [facility] Work Phone: End: 02-11-2025 DBT Breast - bilateral screening DESIREE SCREENING W MIC Radiology Routine Encounter for screening mammogram for malignant neoplasm of breast 1 Occurrences starting 01/13/2024 until 02/11/2025 [facility] Work Phone: Comment on above: 1 Occurrences starti ng 01/13/2024 until 02/11/2025 DBT Breast - bilater al screening DESIREE SCREENING W MIC Radiology Routine Encounter for screening mammogram for malignant neoplasm of breast 02/04/2024 11:01 AM EST [facility] Work Phone: DNA EXTRACTION BONE MARROW (BUFFY COAT) DNA EXTRACTION BONE MARROW (BUFFY COAT) Lab Routine Fever, low grade 05/07/2022 2:26 PM EDT [facility] Work Phone: FLOW CYTOMETRY BONE MARROW HOLD (BMHOLD) FLOW CYTOMETRY BONE MARROW HOLD (BMHOLD) Lab Routine Fever, low grade 05/07/2022 2:26 PM EDT [facility] Work Phone: Folic acid measurement [facility] Magnesium measurement [facility] End: 12-21-2023 DESIREE SCREENING W MIC DESIREE SCREENING W MIC Radiology Routine Personal history of malignant neoplasm of breast Encounter for screening mammogram for high-risk patient 1 Occurrences starting 11/21/2022 until 12/21/2023 [facility] Work Phone: Comment on above: 1 Occurrences starti ng 11/21/2022 until 12/21/2023 DESIREE SCREENING W MIC DESIREE SCREENI NG W MIC Radiology Routine Personal history of malignant neoplasm of breast Encounter for screening mammogram for high-risk patient 02/02/2023 11:51 AM EST [facility] Work Phone: Microscopic observat ion [Identifier] in Vaginal fluid by Gram stain BACT/ANAID VAG GRAM STAIN Microbiology Routine Vaginal burning 06/25/2022 2:36 PM EDT [facility] Work Phone: Patient Education [facility] Work Phone: Patient referral [facility] Work Phone: Rheumatoid factor [Presence] in Serum [facility] T4 free measurement [facility] Thiamine measurement [facility] Thyroid stimulating hormone measurement [facility] End: 04-01-2023 US LEG VEIN DVT [facility] US LEG VEIN DVT [facility] Vascular Lab Routine Fever, unspecified fever cause Leg swelling 1 Occurrences starting 04/01/2022 until 04/01/2023 [facility] Work Phone: Comment on above: 1 Occurrences starti ng 04/01/2022 until 04/01/2023 [facility] Immunizations Immunization Date Immunization Notes Care Provider Fa [facility] 08-18-2023 tetanus toxoid, redu darion diphtheria toxoid, and acellular pertussis vaccine, adsorbed Dr. Angel Fuller MD Work Phone: [facility] Payers Date Payer Category Payer Self-pay [id number] 2023 Unknown [id number] 2013 Medicare MEDICARE MEDICAR E A AND B [id number] 2013-Present [phone] [place] [address] Medicare [id number] 2013 Medicare [id number] 2013 Private Health Insurance [facility] [id number] 2013 Unknown [place] [employer] MEDICARE SUPPLEMENT [id number] 2013-Present [phone] [address] [place] [address] Indemnity [id number] 2013 Unknown [id number] 2013 Medicare [id number] 2013 Unknown [id number] 1948 Unknown [id number] 1948 Unknown [id number] 1948 Unknown [id number] 1948 Unknown [id number] 1948 Unknown [id number] 1948 Unknown [id number] 2.16840.1.686228.3.579.2 1950 Unknown [id number] 2.16840.1.043525.3.579.2 .627 1950 Unknown [id number] 2.16.840.1.177019.3.579.2 .627 1950 Unknown [id number] 2.16.840.1.089600.3.579.2 .627 1950 Unknown [id number] 2.16.840.1.562654.3.579.2 .627 Unknown [id number] 2.16.840.1.835146.3.579.2 .462 Unknown [id number] 2.16.840.1.892229.3.579.2 .462 Unknown [id number] 2.16.840.1.855812.3.579.2 .462 Unknown [id number] 2.16840.1.088366.3.579.2 .462 Unknown [id number] 2.840.1.514201.3.579.2 .462 Unknown [id number] 2.16840.1.069478.3.579.2 .462 Unknown [id number] 2.16.840.1.969320.3.579.2 .462 Unknown [id number] 2.16.840.1.514020.3.579.2 .462 Unknown [id number] 2.16.840.1.159527.3.579.2 .462 Unknown [id number] 2.16840.1.859253.3.579.2 .462 Unknown [id number] 2.16.840.1.624280.3.579.2 .462 Unknown [id number] 2.16.840.1.650052.3.579.2 .462 Unknown [id number] 2.16.840.1.992695.3.579.2 .462 Unknown [id number] 2.16.840.1.710438.3.579.2 .462 Unknown [id number] 2.16.840.1.168580.3.579.2 .462 Unknown [id number] 2.16.840.1.831557.3.579.2 .462 Unknown [id number] 2..840.1.674894.3.579.2 .462 Unknown [id number] 2.16.840.1.018422.3.579.2 .462 Unknown [id number] 2.840.1.671924.3.579.2 .462 Unknown [id number] 2.16.840.1.791875.3.579.2 .462 Unknown [id number] 2.840.1.920027.3.579.2 .462 Unknown [id number] 2.840.1.436080.3.579.2 .462 Unknown [id number] 2.840.1.708069.3.579.2 .462 Unknown [id number] 2.840.1.340719.3.579.2 .462 Unknown [id number] 2.840.1.309662.3.579.2 .462 Unknown [id number] 2.840.1.182315.3.579.2 .462 Unknown [id number] 2.840.1.249992.3.579.2 .462 Unknown [id number] 2.840.1.413954.3.579.2 .462 Unknown [id number] 2.840.1.273613.3.579.2 .462 Unknown [id number] 2.840.1.874963.3.579.2 .462 Unknown [id number] 2.840.1.599227.3.579.2 .462 Unknown [id number] 2.840.1.384130.3.579.2 .462 Unknown [id number] 2.840.1.455178.3.579.2 .462 Unknown [id number] 2.840.1.957328.3.579.2 .462 Unknown [id number] 2.16.840.1.471288.3.579.2 .462 Social History Date Type Detail Facility Tobacco Tobacco Use: Denies. [facility] Start: 08-15-2011 End: 12-26-2021 Never smoked tobacco (finding) [facility] Start: 1950 Sex Assigned At Female A [facility] Start: 05-15-2021 End: 06-10-2023 Tobacco smoking status MSIS Unknown if ever smoked [facility] Start: 08-15-2011 End: 12-26-2021 Tobacco use and exposure Smokeless tobacco non-user [facility] Start: 06-01-2021 End: 11-21-2022 Alcohol intake Current non-drinker of alcohol (finding) [facility] Start: 05-22-2021 End: 07-30-2021 Exposure to SARS-CoV-2 (event) Not sure [facility] Work Phone: Start: 06-25-2022 End: 11-21-2022 History of Social function [facility] Start: 06-25-2022 End: 11-21-2022 Tobacco use panel [facility] Adult Depression Screening Assessment 2 [facility] Start: 11-02-2018 Gender identity Identifies as female gender (finding) [facility] Start: 07-28-2021 Sexual orientation Heterosexual (fin ding) [facility] Start: 06-11-2023 End: 07-12-2024 Alcohol intake Ex-drinker (finding) [facility] Sexual Orientation [facility] Start: 07-07-2019 End: 05-23-2024 Sex Female (finding) [facility] Goals Date Patient Goal Desired Activity /State Personal health goal Functional Status Date Assessment Result Facility 05-11-2014 Are you deaf, or do you have serious difficulty hearing No 05/11/2014 6:15 PM EDT Melissa Cobb LPN No [facility] 05-11-2014 Are you blind, or do you have serious difficulty seeing, even when wearing glasses No 05/11/2014 6:15 PM EDMelissa Allan LPN No [facility] 05-11-2014 Do you have serious difficulty walking or climbing stairs Yes 05/11/2014 6:15 PM Melissa Alexander LPN Yes [facility] 05-11-2014 Do you have difficul ty dressing or bathing Yes 05/11/2014 6:15 PM Melissa Alexander LPN Yes [facility] 05-11-2014 Because of a physica l, mental, or emotional condition, do you have difficulty doing errands alone such as visiting a physician's office or shopping No 05/11/2014 6:15 PM Melissa Alexander LPN No [facility] Mental Status Date Assessment Result Facility 04-18-2024 Cognitive function Level Of Cons ciousness Awake;Alert;Appropriate;Fol lows Commands [facility] Work Phone: 04-12-2024 Cognitive function Level Of Cons ciousness Awake;Alert;Appropriate;Fol lows Commands [facility] Work Phone: 04-05-2024 Cognitive function Voice/Name [facility] Work Phone: 03-20-2023 Cognitive function Awake;Alert;A ppropriate;Fol lows Commands [facility] Work Phone: 02-19-2022 Cognitive function Level Of Cons ciousness Awake;Alert;Appropriate;Fol lows Commands [facility] Work Phone: 06-10-2021 Cognitive function Level Of Cons ciousness Awake;Alert;Appropriate;Fol lows Commands [facility] Work Phone: 02-19-2021 Cognitive function Level Of Cons ciousness Awake;Alert;Appropriate;Fol lows Commands [facility] Work Phone: 05-11-2014 Because of a physica l, mental, or emotional condition, do you have serious difficulty concentrating, remembering, or making decisions No 05/11/2014 6:15 PM EDMelissa Allan LPN No [facility] Clinical Notes 06-01-2021 to 07-29-2024 Karie Meyer DO - 07/12/2024 11:09 AM EDTTelephone Encounter - Twila Gandara RN - 06/03/2024 4:44 PM EDTTelephone Encounter - Twila Gandara RN - 06/03/2024 4:44 PM EDT Note Date & Type Note Facility 07-29-2024 Progress note [facility] 07-12-2024 Note HNO ID: [id number] Author: KARIE MEYER DO Service: ? Author Type: Physician Type: Progress Notes Filed: 08/04/2024 11:41 Note Text: [facility] DEPARTMENT OF VASCULAR SURGERY OUTPATIENT VISIT DATE July 12, 2024 OUTPATIENT VISIT TYPE CONSULTATION SERVICE DATE: 07/12/2024 SERVICE TIME: 11:09 AM PRIMARY CARE PHYSICIAN: Angel Fuller MD REFERRING PROVIDER: No referring provider defined for this encounter. Consult requested for an opinion regarding the evaluation and treatment of the above. My final impression and recommendations will be communicated back to the requesting physician by way of the shared medical record or letter via US mail. CHIEF COMPLAINT: Patient presents with: New Patient History of Present Illness: Patient is a 74 year old White female presenting for consultation, evaluation and possible treatment of leg edema.bilateral aching, throbbing, heaviness, and edema. Predisposing factors included not significant. No specific history of injury or prior problems. Relieving factors include support hose with mild improvement in symptoms. Patient denies DVT, phlebitis, and treatment with blood thinners. 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 She does wear compression regularly. PAIN ASSESSMENT: PAIN EVALUATION 07/07/2024 0814 Description: Burning;Dull;Numbness;Stiffness;Tightness;Tingling Duration Units: Hours Frequency: Continuous Intervention/Comfort measure: Medication;Heat Comments: heating pad Obstetric History T0 L3 SAB0 IAB0 Ectopic0 Multiple0 Live Births0 Name of Baby 1: Not recorded Date: Not recorded GA: Not recorded Type: Not recorded Apgar1: Not recorded Apgar5: Not recorded Living: Not recorded Name of Baby 2: Not recorded Date: Not recorded GA: Not recorded Type: Not recorded Apgar1: Not recorded Apgar5: Not recorded Living: Not recorded Name of Baby 3: Not recorded Date: Not recorded GA: Not recorded Type: Not recorded Apgar1: Not recorded Apgar5: Not recorded Living: Not recorded Duration of Symptoms: Progressive PREVIOUS TESTS: 2020 PVRs normal, Venous Reflux- normal, no deep or superficial vein reflux PAST MEDICAL HISTORY Diagnosis Date Breast cancer [...] vaginal posterial and anterial repair vag sling SOCIAL HISTORY: Social History Tobacco Use Smoking status: Never Smokeless tobacco: Never Vaping Use Vaping status: Never Used Substance Use Topics Alcohol use: Not Currently Drug use: Never FAMILY HISTORY Problem Relation Age of Onset Heart Mother [place] Osteoporosis Mother Heart Father [place] Heart Sister bunddle block Hyperlipidemia Sister Hypertension Sister Heart disease Sister Hyperlipidemia Sister Heart Brother Hyperlipidemia Brother Hypertension Brother Breast Cancer Daughter MEDICATIONS: omeprazole magnesium (PRILOSEC ORAL) Take by mouth. COLLAGEN MISC 2 Tablespoonsful once daily. Unknown dosage (Patient not taking: Reported on 09/08/2023) calcium/chondr/collag/glycosam (BEYOND BONE BROTH ORAL) Take by mouth. Bone Broth Collagen 1 Scoop per day (2 table spoons) zoledronic acid (RECLAST) 5 mg/100 mL pgbk PREMIX piggyback Zoledronic Xpuj-Oisrwnir-Rbfdp Active 1 EACH .Route ONCE 100 February 07, 2021 11:08am onceinfuse over 20 minutes (Patient not taking: Reported on 09/08/2023) acetaminophen (TYLENOL EX STR RAPID RELEASE ORAL) Take 1,000 mg by mouth twice daily as needed. ALLERGIES: ALLERGIES Allergen Reactions Duloxetine Rash REVIEW of SYSTEMS: Constitutional: No weight loss, malaise or fevers. HEENT: No changes in hearing or vision, no nose bleeds or other nasal problems, Head Positive for headache Respiratory: Negative for cough, wheezing, or shortness of breath Cardiovascular: Positive for leg swelling and palpitations Gatrointestinal: Negative for abdominal discomfort, blood in stools or black stools or change in bowel habits Genitourinary: No difficulty urination, nocturia >1 times per night or hematuria Musculoskeletal: Negative for muscle pain and Positive for back pain and joint pain Endocrine: Positive for cold intolerance Hematology/Lymphatic: Positive for bruises easily Neurologic: No history or headaches, syncope, paralysis, seizures or tremors Integumentary: Negative for lesions, rash, and itching. PHYSICAL EXAM: VITALS: There were no vitals taken for this visit. General: Alert, oriented, (more content not included)... [facility] 07-12-2024 History of Present illness Narrative Formatting of this note is different fro m the original. Images from the original note were not included. [facility]PART[facility] OF VASCULAR SURGERY OUTPATIENT VISIT DATE July 12, 2024 OUTPATIENT VISIT TYPE CONSULTATION SERVICE DATE: 07/12/2024 SERVICE TIME: 11:09 AM PRIMARY CARE PHYSICIAN: Angel Fuller MD REFERRING PROVIDER: No referring provider defined for this encounter. Consult requested for an opinion regarding the evaluation and treatment of the above. My final impression and recommendations will be communicated back to the requesting physician by way of the shared medical record or letter via US mail. CHIEF COMPLAINT: Patient presents with: New Patient History of Present Illness: Patient is a 74 year old White female presenting for consultation, evaluation and possible treatment of leg edema.bilateral aching, throbbing, heaviness, and edema. Predisposing factors included not significant. No specific history of injury or prior problems. Relieving factors include support hose with mild improvement in symptoms. Patient denies DVT, phlebitis, and treatment with blood thinners. 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 She does wear compression regularly. PAIN ASSESSMENT: PAIN EVALUATION 07/07/2024 0814 Description: Burning;Dull;Numbness;Stiffness;Tightness;Tingling Duration Units: Hours Frequency: Continuous Intervention/Comfort measure: Medication;Heat Comments: heating pad Obstetric History T0 L3 SAB0 IAB0 Ectopic0 Multiple0 Live Births0 Name of Baby 1: Not recorded Date: Not recorded GA: Not recorded Type: Not recorded Apgar1: Not recorded Apgar5: Not recorded Living: Not recorded Name of Baby 2: Not recorded Date: Not recorded GA: Not recorded Type: Not recorded Apgar1: Not recorded Apgar5: Not recorded Living: Not recorded Name of Baby 3: Not recorded Date: Not recorded GA: Not recorded Type: Not recorded Apgar1: Not recorded Apgar5: Not recorded Living: Not recorded Duration of Symptoms: Progressive PREVIOUS TESTS: PVRs normal, Venous Reflux- normal, no deep or superficial vein reflux PAST MEDICAL HISTORY Diagnosis Date Breast cancer [...] vaginal posterial and anterial repair vag sling SOCIAL HISTORY: Social History Tobacco Use Smoking status: Never Smokeless tobacco: Never Vaping Use Vaping status: Never Used Substance Use Topics Alcohol use: Not Currently Drug use: Never FAMILY HISTORY Problem Relation Age of Onset Heart Mother [place] Osteoporosis Mother Heart Father [place] Heart Sister bunddle block Hyperlipidemia Sister Hypertension Sister Heart disease Sister Hyperlipidemia Sister Heart Brother Hyperlipidemia Brother Hypertension Brother Breast Cancer Daughter MEDICATIONS: omeprazole magnesium (PRILOSEC ORAL) Take by mouth. COLLAGEN MISC 2 Tablespoonsful once daily. Unknown dosage (Patient not taking: Reported on 09/08/2023) calcium/chondr/collag/glycosam (BEYOND BONE BROTH ORAL) Take by mouth. Bone Broth Collagen 1 Scoop per day (2 table spoons) zoledronic acid (RECLAST) 5 mg/100 mL pgbk PREMIX piggyback Zoledronic Oqqp-Unddqpoq-Nulpo Active 1 EACH .Route ONCE February 07, 2021 11:08am onceinfuse over 20 minutes (Patient not taking: Reported on 09/08/2023) acetaminophen (TYLENOL EX STR RAPID RELEASE ORAL) Take 1,000 mg by mouth twice daily as needed. ALLERGIES: ALLERGIES Allergen Reactions Duloxetine Rash REVIEW of SYSTEMS: Constitutional: No weight loss, malaise or fevers. HEENT: No changes in hearing or vision, no nose bleeds or other nasal problems, Head Positive for headache Respiratory: Negative for cough, wheezing, or shortness of breath Cardiovascular: Positive for leg swelling and palpitations Gatrointestinal: Negative for abdominal discomfort, blood in stools or black stools or change in bowel habits Genitourinary: No difficulty urination, nocturia >1 times per night or hematuria Musculoskeletal: Negative for muscle pain and Positive for back pain and joint pain Endocrine: Positive for cold intolerance Hematology/Lymphatic: Positive for bruises easily Neurologic: No history or headaches, syncope, paralysis, seizures or tremors Integumentary: Negative for lesions, rash, and itching. PHYSICAL EXAM: VITALS: There were no vitals taken for this visit. General: Alert, oriented, cooperative, healthy appearance Integumentary: Normal color, no rash, no lesions. HEENT: EOM, pupils equal, round and reactive. Cardiovascular: Pulse regular. Lungs: No chest deformities or chest wall tenderness. Abdomen: Not examined Extremities: Varicose veins Neurological: AAOx3. Normal cognition and motor skills. Vascular: Dorsalis Pedal Right: Normal - Left: Normal Diagnostic tests reviewed for today's visit: Most recent labs Most recent imaging IMPRESSION: Ms. Monroy is a 74 year old female with symptomatic varicose veins . PLAN and RECOMMENDATIONS: Discussed venous pathology Recommend compression, elevation and exercise as tolerated Follow up as needed with any concerns or worsening symptoms SIGNATURE: Karie Meyer DO PATIENT NAME: Kelli Monroy DATE: July 12, 2024 TIME: 11:09 AM documented in this encounter [facility] 06-03-2024 Telephone encounter Note Formatting of this note might be differe nt from the original. Spoke with patient advised she should get new compression if she has not had new ones since 2019. She should also be measured. She would like to re-establish with , schedule appt 07/12/24 [facility] 06-03-2024 Miscellaneous Notes Formatting of this note might be differe nt from the original. Spoke with patient advised she should get new compression if she has not had new ones since 2019. She should also be measured. She would like to re-establish with , schedule appt 07/12/24 Pt called in statins she saw Dr. Meyer a few years ago and has questions/ Spoke with pt. Does she need a new rx for her comp stockings Does she need remeasureed for comp stockings? If so should she be measured in the morning before she is swollen or later in the day when she has swelling? NAYE: 12/27/[address] Meyer Assessment/Plan: Lower extremity edema, pain and burning. Reviewed the findings with Kelli. Recommend that she continue wearing her compression as needed and as tolerated, especially on days she is doing prolonged standing or sitting. No significant vascular etiology identified for her symptoms. She is to follow up with us as needed. documented in this encounter [facility] 06-03-2024 Telephone encounter Note Formatting of this note might be differe nt from the original. Pt called in statins she saw Dr. Meyer a few years ago and has questions/ Spoke with pt. Does she need a new rx for her comp stockings Does she need remeasureed for comp stockings? If so should she be measured in the morning before she is swollen or later in the day when she has swelling? NAYE: 12/27/[address] Meyer Assessment/Plan: Lower extremity edema, pain and burning. Reviewed the findings with Kelli. Recommend that she continue wearing her compression as needed and as tolerated, especially on days she is doing prolonged standing or sitting. No significant vascular etiology identified for her symptoms. She is to follow up with us as needed. [facility] 05-17-2024 Procedure note [facility] 05-11-2024 Procedure note [facility] 04-18-2024 Radiology Diagnostic study note [facility] Imaging Services [address] [place], [place] [id number] Sacrum-Coccyx min 2 Views MR#: [id number] Acct: [id number] Name: KELLI MONROY Rep #: [id number] : 1950 F 74 From: Karina Sultana MD PCP: Dr. Angel Fuller MD Status: REG CLI Study:Sacrum-Coccyx min 2 Views Date of Exam: 04/18/24 Exam# [id number] Ordering Dr: SHAHLA GUPTA EXAM: XR Sacrum and Coccyx, 2 or more Views CLINICAL INDICATION: TECHNIQUE: Frontal and lateral views of the sacrum and coccyx. COMPARISON: No relevant prior studies available. FINDINGS: SACRUM/COCCYX: Degenerative changes of the sacroiliac joints, bilaterally. No acute fracture. VERTEBRAE: No acute fracture. DISC SPACES: Hazq-il-tulsfqot degenerative changes of the pubic symphysis. SOFT TISSUES: Unremarkable. GASTROINTESTINAL TRACT: Fecal retention in the colon consistent with constipation. RAD/Sacrum-Coccyx min 2 Views IMPRESSION: 1. No acute fracture. 2. Fecal retention in the colon consistent with constipation. 3. Degenerative changes as above. Reading Location: [facility] CC: Dr. 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 2024 9:25am Fatigue acute May 10 10:33am Fatigue acute June 09 1:06pm Osteoarthritis of right knee acute June 24, 2024 9: 26am Arthritis acute June 30, 2024 11:27am Burning mouth syndrome acute Ma y 2024 11:27am Dry mouth acute June 30, 2024 11:27am Fatigue acute June 30, 2024 11:27am Fibromyalgia acute June 30 11:27am Neck pain acute June 30, 2024 11:27am Polyneuropathy acute June 30, 2 025 11:27am Osteoarthritis of right knee acute July 13, 2024 10:27am Fatigue acute July 14, 2024 10:38am [facility] Work Phone: 1(893) 311-963902-10-2025 Evaluation note* Diagnosis Onset Date Resolution Status Admit Date Arthritis acute April 04, 2024 8:56am Burning mouth syndrome acute Fe 2024 8:56am Fatigue acute April 04, 2024 8:56am Fibromyalgia acute March 8:56am Low back pain acute April 042024 8:56am Neck pain acute April 04, 2024 8:56am Polyneuropathy acute March 262024 8:56am Episode of syncope acute 2024 11:52am Influenza B acute March 11:52am Cervical radiculopathy acute [facility] 2024 9:25am Fatigue acute May 10 10:33am Fatigue acute June 09 1:06pm Osteoarthritis of right knee acute June 24, 2024 9:26am Arthritis acute June 30, 2024 11:27am Burning mouth syndrome acute Ma 2024 11:27am Dry mouth acute June 30, 2024 11:27am Fatigue acute June 30, 2024 11:27am Fibromyalgia acute June 30 11:27am Neck pain acute June 30, 2024 11:27am Polyneuropathy acute June 30, 025 11:27am Osteoarthritis of right knee acute July 13, 2024 10:27am Fatigue acute July 14, 2024 10:38am Osteoarthritis of right knee acute July 22, 2024 11:12am Osteoarthritis of right knee acute July 29, 2024 11:07am [facility] Work Phone: 1(623) 358-379801-28-2025 Evaluation note* Diagnosis Onset Date Resolution Status Admit Date Cervical radiculopathy acute Ja nuary 2024 2:16pm Degenerative disc disease, cervical acute March 22 2:16pm Arthritis acute April 04, 2024 8:56am Burning mouth syndrome acute Fe 2024 8:56am Fatigue acute April 04, 2024 8:56am Fibromyalgia acute March 8:56am Low back pain acute April 042024 8:56am Neck pain acute April 04, 2024 8:56am Polyneuropathy acute March 262024 8:56am Episode of syncope acute 2024 11:52am Influenza B acute March 11:52am Cervical radiculopathy acute [facility] 2024 9:25am Fatigue acute May 10 10:33am Fatigue acute June 09 1:06pm Osteoarthritis of right knee acute June 24, 2024 9:26am Arthritis acute June 30, 2024 11:27am Burning mouth syndrome acute Ma y 2024 11:27am Dry mouth acute June 30, 2024 11:27am Fatigue acute June 30, 2024 11:27am Fibromyalgia acute June 30 11:27am Neck pain acute June 30, 2024 11:27am Polyneuropathy acute June 30, 11:27am [facility] Work Phone: 1(311) 564-974101-28-2025 Evaluation note* Diagnosis Onset Date Resolution Status Admit Date [facility] Degenerative disc disease, cervical acute March 22 2:16pm Arthritis acute April 04, 2024 8:56am [facility] 8:56am Fatigue acute April 04, 2024 8:56am Fibromyalgia acute March 8:56am Low back pain acute April 042024 8:56am Neck pain acute April 04, 2024 8:56am Polyneuropathy acute March 262024 8:56am Episode of syncope acute 2024 11:52am Influenza B acute March 11:52am Cervical radiculopathy acute [facility] 2024 9:25am Fatigue acute May 10 10:33am Fatigue acute June 09 1:06pm Osteoarthritis of right knee acute June 24, 2024 9:26am Arthritis acute June 30, 2024 11:27am Burning mouth syndrome acute Ma y 2024 11:27am Dry mouth acute June 30, 2024 11:27am Fatigue acute June 30, 2024 11:27am Fibromyalgia acute June 30 11:27am Neck pain acute June 30, 2024 11:27am Polyneuropathy acute June 30, 2 025 11:27am Osteoarthritis of right knee acute July 13, 2024 10:27am [facility] Work Phone: [phone]) [phone] Telephone encounter Note* Telephone Encounter - Charlotte Murillo LPN - 03/07/2024 8:47 AM EST Pt advised and voices understanding. Charlotte Murillo LPN [facility]01-13-2025 Miscellaneous Notes* Telephone Encounter - Charlotte Murillo LPN - 03/07/2024 8:47 AM EST Pt advised and voices understanding. Charlotte Murillo LPN * Telephone Encounter - Deyanira Mendez APRN.LUPE - 03/07/2024 8:23 AM EST Please advise pt. to follow up with PCP/derm. Thank you. Deyanira Mendez APRN.LUPE * Telephone Encounter - Yelitza Bartlett LPN - 03/04/2024 3:01 PM EST Patient contacted office c/o excessive sweating to bilateral axilla and under both breasts. Patientstates this has been ongoing for about 1 year. She saw her steward/stewardess smoke room and was given prescriptiondeodorant which has helped somewhat but she is still having issues and states still has sweating/dampness under both arms and breasts. Asking if radiation has caused this. Patient completed radiationin 2016. Requested appointment with Deyanira for this issue. I advised patient to contact her steward/stewardess smoke room again. Informed patient I would ask Deyanira and renetta patterson about this as well. Yelitza Bartlett LPN [facility] Telephone encounter Note * Telephone Encounter - Deyanira Mendez APRN.CNP - 03/07/2024 8:23 AM EST Please advise pt. to follow up with PCP/derm. Thank you. Deyanira Mendez APRN.LUPE [facility]01-10-2025 Telephone encounter Note* Telephone Encounter - Yelitza Bartlett LPN - 03/04/2024 3:01 PM EST Patient contacted office c/o excessive sweating to bilateral axilla and under both breasts. Patientstates this has been ongoing for about 1 year. She saw her steward/stewardess smoke room and was given prescriptiondeodorant which has helped somewhat but she is still having issues and states still has sweating/dampness under both arms and breasts. Asking if radiation has caused this. Patient completed radiationin 2016. Requested appointment with Deyanira for this issue. I advised patient to contact her steward/stewardess smoke room again. Informed patient I would ask Deyanira and renetta patterson about this as well. Yelitza Bartlett LPN [facility]12[facility]30[facility] Telephone encounter Note* Telephone Encounter - Baron Kevin PSS - 02/22/2024 1:37 PM EST CD READY FOR TELL[facility] Miscellaneous Notes* Telephone Encounter - Baron Kevin PSS - 02/22/2024 1:37 PM EST CD READY FOR TELLER VAULT [facility] * Telephone Encounter - Mandy Fuentes - 02/22/2024 10:59 AM EST Patient is calling requesting Mammo from 02/04/2024 copied to a disk. documented in this [facility]12-30-[facility]24 Telephone encounter Note * Telephone Encounter - Mandy Fuentes - 02/22/2024 10:59 AM EST Patient is calling requesting Mammo from 02/04/2024 copied to a disk. [facility] Evaluation note* Diagnosis Onset Date Resolution Status Admit Date Osteoporosis chronic January 3:03pm URI (upper respiratory infection) acute March 06 1:02pm Cervical radiculopathy acute [facility] 2024 2:16pm Degenerative disc disease, cervical acute March 22 2:16pm Arthritis acute April 04, 2024 8:56am Burning mouth syndrome acute 2024 8:56am Fatigue acute April 04, 2024 8:56am Fibromyalgia acute March 8:56am Low back pain acute April 042024 8:56am Neck pain acute April 04, 2024 8:56am Polyneuropathy acute March 262024 8:56am Episode of syncope acute 2024 11:52am Influenza B acute March 11:52am [facility] Work Phone: 1(297) 844-271412-27-2024 Evaluation note* Diagnosis Onset Date Resolution Status Admit Date Osteoporosis chronic January 3:03pm URI (upper respiratory infection) acute March 06 1:02pm Cervical radiculopathy acute [facility] 2024 2:16pm Degenerative disc disease, cervical acute March 22 2:16pm Arthritis acute April 04, 2024 8:56am Burning mouth syndrome acute [facility] 2024 8:56am Fatigue acute April 04, 2024 8:56am Fibromyalgia acute March 8:56am Low back pain acute April 042024 8:56am Neck pain acute April 04, 2024 8:56am Polyneuropathy acute March 262024 8:56am Episode of syncope acute Februa 2024 11:52am Influenza B acute March 11:52am Cervical radiculopathy acute [facility] 2024 9:25am Fatigue acute May 10 10:33am [facility] Work Phone: 1(982) 975-601112-12-2024 History of Present illness Narrative* Ricardo Baker Mammo Tech - 02/04/2024 10:50 AM EST Radiology Service Progress Note PATIENT NAME: Kelli Monroy DATE OF SERVICE: February 04, 2024 TIME: 11:22 AM PATIENT IDENTITY VERIFICATION COMPLETED USING TWO (2) IDENTIFIERS: Name and Date of confirmedby patient verbally. FALL SCREENING: Has the patient had 2 falls in the last year or 1 fall with injury or currently using an Ambulatory Assistive Device (Walker, Cane, Wheelchair, Crutches, etc.)? No PATIENT GENDER DATA: Female. status: : No status: NO. PATIENT RELEVANT IMPLANT DATA REVIEWED: Not Applicable PATIENT PRESENTS WITH AN IMPLANTABLE OR ATTACHED SPEAKER WIRER: No RADIOLOGY DEPARTMENT: Mammography PERIPHERAL IV DATA: Not applicable SIGNED BY: Gregorio Marcano February 04, 2024 11:22 AM documented in this encounterKeenan [facility] Hospital12-12-2024 NoteHNO ID: [id number] Author: RICARDO BAKER Mammo Tech Service: ? Author Type: Child Welfare Director Type: Progress Notes Filed: 02/04/2024 11:22 Note Text: Radiology Service Progress Note PATIENT NAME: Kelli Monroy DATE OF SERVICE: February 04, 2024 TIME: 11:22 AM PATIENT IDENTITY VERIFICATION COMPLETED USING TWO (2) IDENTIFIERS: Name and Date of confirmed by patient verbally. FALL SCREENING: Has the patient had 2 falls in the last year or 1 fall with injury or currently using an Ambulatory Assistive Device (Walker, Cane, Wheelchair, Crutches, etc.)? No PATIENT GENDER DATA: Female. status: : No status: NO. PATIENT RELEVANT IMPLANT DATA REVIEWED: Not Applicable PATIENT PRESENTS WITH AN IMPLANTABLE OR ATTACHED SPEAKER WIRER: No RADIOLOGY DEPARTMENT: Mammography PERIPHERAL IV DATA: Not applicable SIGNED BY: Jerry Marcanoo Beanup February 04, 2024 11:22 [facility]11-20-2024 Telephone encounter Note* Telephone Encounter - Erin Olguin RN - 01/13/2024 12:06 PM EST Patient notified. Transferred to [facility] to schedule mammogram. Erin Olguin RN [facility]11-[facility] Miscellaneous Notes* Telephone Encounter - Erin Olguin RN - 01/13/2024 12:06 PM EST Patient notified. Transferred to [facility] to schedule mammogram. Erin Olguin RN * Telephone Encounter - Prisca Rivera MD - 01/13/2024 12:02 PM EST Only if she wants to be seen - had hysterectomy so unless complaints it is up to her. * Telephone Encounter - Erin Olguin RN - 01/13/2024 11:08 AM EST Patient called needing Mamm with MIC order. Please file. Patient has not had a yearly since 01/28/21. Only seen for problem visit. Patient asking if DM would still like her seen for annual (every 2 years with Medicare). Erin Olguin RN documented in this encounterKe[facility]11-20-2024 Telephone encounter Note * Telephone Encounter - Prisca Rivera MD - 01/13/2024 12:02 PM EST Only if she wants to be seen - had hysterectomy so unless complaints it is up to her. [facility] Work Phone: 1(623) 788-121111-20-2024 Telephone encounter Note* Telephone Encounter - Erin Olguin RN - 01/13/2024 11:08 AM EST Patient called needing Mamm with MIC order. Please file. Patient has not had a yearly since 01/28/21. Only seen for problem visit. Patient asking if DM would still like her seen for annual (every 2 years with Medicare). Erin Olguin RN [facility]09-19-[facility] Telephone encounter Note* Telephone Encounter - Nikia Pacheco RN - 11/12/2023 3:43 PM EDT Faxed updated diagnosis to billing dept. Patient notified. Nikia Pacheco RN [facility]09-19[facility] Miscellaneous Notes* Telephone Encounter - Nikia Pacheco RN - 11/12/2023 3:43 PM EDT Faxed updated diagnosis to billing dept. Patient notified. Nikia Pacheco RN * Telephone Encounter - Guy Gonzalez APRN.CNP - 11/12/2023 3:10 PM EDT Impaired Swallowing code added on visit. Guy Gonzalez APRN.CNP * Telephone Encounter - Nikia Pacheco RN - 11/12/2023 3:01 PM EDT Patient received bill for thyroid labs done on 06/11/23. Medicare told her they were billed wrong. Diagnosis code was for screening for thyroid disorder. She was c/o of a new swallowing sensation and accepted the thyroid screening for that. Is there any other diagnosis code that can be added to those labs? Patient thinks her secondary coverage should case picker the remainder of the bill, but just in case it doesn't. Nikia Pacheco RN documented in this encounterKeenan [facility] Hospital09-19-2024 Telephone encounter Note * Telephone Encounter - Guy Gonzalez APRN.CNP - 11/12/2023 3:10 PM EDT Impaired Swallowing code added on visit. Guy Gonzalez APRN.CNP [facility] Work Phone: [phone]) 776-841409-19-2024 Telephone encounter Note* Telephone Encounter - Nikia Pacheco RN - 11/12/2023 3:01 PM EDT Patient received bill for thyroid labs done on 06/11/23. Medicare told her they were billed wrong. Diagnosis code was for screening for thyroid disorder. She was c/o of a new swallowing sensation and accepted the thyroid screening for that. Is there any other diagnosis code that can be added to those labs? Patient thinks her secondary coverage should case picker the remainder of the bill, but just in case it doesn't. Nikia Pacheco RN [facility]07-16-2024 NoteHNO ID: [id number] Author: PRISCA RIVERA MD Service: ? Author Type: Physician Type: Progress Notes Filed: 09/08/2023 12:22 Note Text: Dip Tanker offered: Patient declines. Kelli Monroy is a 73 year old female who presents for problem here to confirm if she has UTI or not. Seeing holistic doctor, is taking supplements and was told in July she had UTI - but was not given abx. Pt does not want to keep taking supplements- wants to confirm if she has E. Coli as her labs states. Pt reports no lower back/kideny pain, no dysuria. Reports urinary frequency but drinks a lot of water. Pt offers no other concerns. OB History T0 L3 SAB0 IAB0 Ectopic0 Multiple0 Live Births0 Firesetter History LMP: Postmenopausal Age at Menarche: Age at First : Age at Menopause: Firesetter History Comments: Sexual Activity: Not Currently; No partner data on record Contraception: No contraception data on record PAST MEDICAL HISTORY Diagnosis Date Breast cancer in female ([facility]) 01/2016 right Diverticulosis Irregular heart beat MVP [...] Problem Relation Age of Onset Heart Mother [place] Osteoporosis Mother Heart Father [place] Heart Sister bunddle block Hyperlipidemia Sister Hypertension Sister Heart disease Sister Hyperlipidemia Sister Heart Brother Hyperlipidemia Brother Hypertension Brother Breast Cancer Daughter Social History Tobacco Use Smoking status: Never Smokeless tobacco: Never Vaping Use Vaping Use: Never used Substance Use Topics Alcohol use: Not Currently Drug use: Never Current Outpatient Medications Medication Sig omeprazole magnesium (PRILOSEC ORAL) Take by mouth. calcium/chondr/collag/glycosam (BEYOND BONE BROTH ORAL) Take by mouth. Bone Broth Collagen 1 Scoop per day (2 table spoons) acetaminophen (TYLENOL EX STR RAPID RELEASE ORAL) Take 1,000 mg by mouth twice daily as needed. COLLAGEN MISC 2 Tablespoonsful once daily. Unknown dosage (Patient not taking: Reported on 09/08/2023) zoledronic acid (RECLAST) 5 mg/100 mL pgbk PREMIX piggyback Zoledronic Vdqk-Gltziqdj-Msjyd Active 1 EACH .Route ONCE 100 February 07, 2021 11:08am onceinfuse over 20 minutes (Patient not taking: Reported on 09/08/2023) No current facility-administered medications for this visit. Allergies As of Date: 09/08/2023 Allergen Noted Reaction DULOXETINE 09/14/2019 Rash Fully Assessed 09/08/2023 REVIEW OF SYSTEMS Abdomen: no pain Bladder: see hpi . Expanded ROS: no fever always with low grade temp Allergies and current medication updated:No EXAM: BP 144/82 Wt 157 lb (71.2kg) GENERAL: pleasant, female in no apparent distress HEENT: Normocephalic and atraumatic NECK: full range of motion NEURO: alert and oriented x3,exam grossly non-focal EXTREMITIES: normal ASSESSMENT AND PLAN: Encounter Diagnosis ICD-10-CM 1. Urinary frequency R35.0 URINE CULTURE 2. Frequent UTI N39.0 . Reviewed labs from other holistic provider- + E. Coli culture in July Urine dip today- negative but has Small LE will send culture . Reviewed UTI prevention with D- mannose as possibility will see what culture shows Recent UTI with K. Pneumonia in reviewed as well. I spent a total of 20 minutes on the date of the service which included preparing to see the patient, jccm-bu-tivi patient care, completing clinical documentation, obtaining and/or reviewing separately obtained history, performing a medically appropriate examination, counseling and educating the patient/family/caregiver, and ordering medications, tests, or procedures. Prisca Latham, [facility]07-16-2024 History of Present illness Narrative* Prisca Rivera MD - 09/08/2023 11:38 AM EDT Dip Tanker offered: Patient declines. Kelli Monroy is a 73 year old female who presents for problem here to confirm if she has UTI or not. Seeing holistic doctor, is taking supplements and was told in July she had UTI - but was not givenabx. Pt does not want to keep taking supplements- wants to confirm if she has E. Coli as her labs states. Pt reports no lower back/kideny pain, no dysuria. Reports urinary frequency but drinks a lot of water. Pt offers no other concerns. OB History T0 L3 SAB0 IAB0 Ectopic0 Multiple0 Live Births0 Firesetter History LMP: Postmenopausal Age at Menarche: Age at First : Age at Menopause: Firesetter History Comments: Sexual Activity: Not Currently; No [...] Problem Relation Age of Onset Heart Mother [place] Osteoporosis Mother Heart Father [place] Heart Sister bunddle block Hyperlipidemia Sister Hypertension Sister Heart disease Sister Hyperlipidemia Sister Heart Brother Hyperlipidemia Brother Hypertension Brother Breast Cancer Daughter Social History Tobacco Use Smoking status: Never Smokeless tobacco: Never Vaping Use Vaping Use: Never used Substance Use Topics Alcohol use: Not Currently Drug use: Never Current Outpatient Medications Medication Sig omeprazole magnesium (PRILOSEC ORAL) Take by mouth. calcium/chondr/collag/glycosam (BEYOND BONE BROTH ORAL) Take by mouth. Bone Broth Collagen 1 Scoop per day (2 table spoons) acetaminophen (TYLENOL EX STR RAPID RELEASE ORAL) Take 1,000 mg by mouth twice daily as needed. COLLAGEN MISC 2 Tablespoonsful once daily. Unknown dosage (Patient not taking: Reported on 09/08/2023) zoledronic acid (RECLAST) 5 mg/100 mL pgbk PREMIX piggyback Zoledronic Kcmz-Wxdgqhcd-Wvnwe Active 1EACH .Route ONCE 100 February 07, 2021 11:08am onceinfuse over 20 minutes (Patient not taking: Reported on 09/08/2023) No current facility-administered medications for this visit. Allergies As of Date: 09/08/2023 Allergen Noted Reaction DULOXETINE 09/14/2019 Rash Fully Assessed 09/08/2023 REVIEW OF SYSTEMS Abdomen: no pain Bladder: see hpi . Expanded ROS: no fever always with low grade temp Allergies and current medication updated:No EXAM: BP 144/82 Wt 157 lb (71.2kg) GENERAL: pleasant, female in no apparent distress HEENT: Normocephalic and atraumatic NECK: full range of motion NEURO: alert and oriented x3,exam grossly non-focal EXTREMITIES: normal ASSESSMENT AND PLAN: Encounter Diagnosis ICD-10-CM 1. Urinary frequency R35.0 URINE CULTURE 2. Frequent UTI N39.0 . Reviewed labs from other holistic provider- + E. Coli culture in July Urine dip today- negative but has Small LE will send culture . Reviewed UTI prevention with D- mannose as possibility will see what culture shows Recent UTI with K. Pneumonia in reviewed as well. I spent a total of 20 minutes on the date of the service which included preparing to see the patient, [id number]-hm-[id number] patient care, completing clinical documentation, obtaining and/or reviewing separately obtained history, performing a medically appropriate examination, counseling and educating the pat ient/family/caregiver, and ordering medications, tests, or procedures. Prisca Latham MD documented in this encounterKe[facility]06-05-2024 Telephone encounter Note * Telephone Encounter - Twila Ely - 07/29/2023 1:57 PM EDT Appointment canceled. Patient informed. [facility] Work Phone: [phone]) 712-153506-05-2024 Miscellaneous Notes* Telephone Encounter - Twila Ely - 07/29/2023 1:57 PM EDT Appointment canceled. Patient informed. * Telephone Encounter - Yelitza Bartlett LPN - 07/29/2023 1:50 PM EDT PSS- please contact patient to cancel tomorrow's appointment. Patient completed radiation in 2017 of her right breast, not her throat and shoulders, where she complains of burning. Provider recommends patient contact her PCP for these complaints. Thank you Yelitza Bartlett LPN documented in this encounterKe[facility]an [facility]06-05-2024 Telephone encounter Note * Telephone Encounter - Yelitza Bartlett LPN - 07/29/2023 1:50 PM EDT PSS- please contact patient to cancel tomorrow's appointment. Patient completed radiation in 2017 of her right breast, not her throat and shoulders, where she complains of burning. Provider recommends patient contact her PCP for these complaints. Thank you Yelitza Bartlett LPN [facility]04-19-2024 Miscellaneous Notes* Telephone Encounter - Brunilda Min LPN - 06/12/2023 9:02 AM EDT Pt notified and voiced understanding and will check at the pharmacy. Brunilda Min LPN' * Telephone Encounter - Guy Gonzalez APRN.CNP - 06/12/2023 8:54 AM EDT The nonhormonal options are OTC. No prescription needed. Guy Gonzalez APRN.LUPE * Telephone Encounter - Brunilda Min LPN - 06/12/2023 8:45 AM EDT Spoke with pt and she was given below message and stated that she would like for you to call in oneof the non hormonal options for her to try. As far a endcrinology she is no longer having any issues with the swallowing sensation and will hold off on that for now. Pt uses [facility].Call only if problems. Brunilda Min LPN * Telephone Encounter - Guy Gonzalez APRN.CNP - 06/12/2023 7:15 AM EDT Please notify patient: Vaginal cultures negative for infection. Urine culture still in process. Highly suspect her irritation is from atrophy as we discussed. Reached out to Deyanira from oncology, who approves the local vaginale estrogen cream. If patient would like to stick with nonhormonal options, I recommend Relizen from [facility] or the moisturizers/lubricants I included in checkout instructions. Thyroid labs are WNL. Can place consult to endocrinology if she would like. Recommend follow up with PCP about the new swallowing sensation she discussed with me. Guy Gonzalez APRN.LUPE documented in this encounterKeenan [facility] Hospital04-18-2024 Instructions* Patient Instructions* Guy Gonzalez APRN.CNP - 06/11/2023 11:14 AM EDT Images from the original note were not included. Vaginal atrophy is caused by a decreased amount of estrogen, which can occur after menopause. Decreased estrogen results in the following: reduced blood flow to the vaginal tissues, thin/dry vaginal lining, decreased vaginal wall elasticity, and vaginal narrowing. Vaginal willis are flexible with a thick lining and have a healthy blood flow to the vaginal tissue in premenopausal patients. This cancause pain with intercourse, dryness, irritation, itching, and even recurrent UTIs in some patients. Lubricants and moisturizers list The hksy-lmt-batipqo vaginal moisturizer and lubricant products can be confusing to sort through, especially since there are no FDA requirements for how they can be marketed or labeled. In general there are 3 categories of products: Vaginal lubricants should be used at the time of intercourse to decrease friction. Long acting vaginal moisturizers are used at least twice weekly to increase vaginal (internal) lubrication and elasticity. Vulvar moisturizers are for external use for vulvar comfort and do not impact vaginal lubrication or elasticity. Vaseline petroleum products and oils (baby oil, coconut, olive oil,) can make condoms break, so should not be used with condoms. In many women, these can cause infections. However, if you have sore spots on the vulva (outer lips), then petroleum jelly can sometimes be helpful. All of the products listed below are over the counter. Many can be bought in any drugstore or online. Also, many [employer] stores do carry high-quality lubricant products. VAGINAL LUBRICANTS: (For use during sexual activity) Lubricants should be applied to the outside and opening of the vagina at the time of sexual activity. The lubricant can also be applied to the penis or a device. Silicone based lubricants should not be used on silicone vibrators or toys. Both silicone and water based lubricants are condom compatible. If you use a water based lubricant, it is also important to choose a lubricant with low osmolality since lubricants with high osmolality increase the chance of irritation and infection. Osmolality information can be hard to find. All of the following lubricants have a low osmolality, are pH balanced, and are preservative free. WATER BASED LUBRICANTS Good Clean Love (made of organic ingredients) Pulse H2Oh! Sylk Natural System Zhanna PreSeed (Does not impact sperm motility and can be used if trying to conceive, also good for those with multiple sensitivities, though may not work as well) SILICONE BASED LUBRICANTS Uber lube Replens Silky Smooth Pulse Aloe-ahh Wet [place] ZHANNA Premium Personal Lubricant PINK Silicone Lubricant [employer] silk Pulse is a hands free personal lubricant warming dispenser and is sold with water or silicone basedlubricant pods that some women prefer for travel. LONG ACTING VAGINAL MOISTURIZERS: (For regular use inside vagina to maintain moisture) Long acting vaginal moisturizers should be used at least twice weekly on a regular basis. Many women find they need to use a moisturizer 3-5 times/week. In addition, it is important to not only applythe moisturizer inside the vagina, but also to apply to the vestibule (the external area surrounding the opening of the vagina). Women who are not sexually active often find that the regular use of along acting vaginal moisturizer makes them feel more comfortable. Stoker Installation Mechanic beware: many lubricants arelabeled as moisturizers to make them more appealing to consumers (even though they don t function as a true moisturizer). Replens Long Acting Vaginal Moisturizer (Available in all drugstores) HyaloGyn Vaginal Hydrating Gel (hybrid moisturizer, but can function as lubricant too) Revaree (hyaluronic acid) VULVAR MOISTURIZERS: (For external use) Replens Moisture Restore Comfort Gel is to be used externally for dry vulvar skin. Aquaphor can also be applied externally for comfort. [place] Aloe Fritch: Many people are allergic to aloe, so keep this in mind with products like this that have aloe in it. Medicine Mama s V magic: Not much medical studies on this, but many patients swear by it, has oil, beeswax and honey in it- best used externally only. *Revaree is a NAMS recommended, leading selling vaginal insert for the relief of symptoms of vaginal atrophy and the jain of the vagina's epithelial lining and pH -- hormone free. In gtcp-cm-okht clinical trials, Revaree performed as well as estrogen creams in reducing symptoms of vaginal atrophy (dryness, itching, painful intercourse, and burning). The Revaree insert is convenient and notmessy and should be used 2 to 3 times a week. Revaree is professionally recommended, easily orderedby the patient, costs about $40 per month, and shipped directly to the patient's home. Revaree is aperfect choice for women who need relief and either cannot or do not want to use hormonal therapy for their vaginal atrophy symptoms. *Clairvee is the only oral probiotic that has been proven to target the vagina's microbiome, restoring lactobacilli, and thus reducing the recurrence of BV and yeast. Rigorous clinical trials show that Clairvee significantly reduces these annoying recurrences while balancing the vagina's microbiomeand pH. Clairvee should be taken orally each day for 15 days of the month; 15 days off; then resumed for 15 days and so forth. Clairvee begins to balance the microbiome in as little as 15 days with best results at 6 months. Clairvee is professionally recommended, easily ordered by the patient, costs about $35 per month, and directly shipped to the patient's home. Clairvee is a great option for patients who struggle with recurring BV and yeast who have had no other prevention strategies in the past. It is also a great choice for women who have GSM symptoms of odor, itching, and discharge with an intermediate archana score, but have not had any other means to eliminate the embarrassing symptoms. *Relizen is a clinically validated, hormone free, safe, and effective therapy that significantly reduces the intensity and frequency of hot flashtonny. Relizen works by expressing a mild seratenurgic effect on the hypothalamus. Relizen is professionally recommended, easily ordered by the patient, costs $35 per month, and directly shipped to the patient's home. Relizen is a great choice for women whostruggle with hot flashes and either cannot or do not want to use hormone therapy. documented in this encounterKeenan Private Hospital04-18-2024 History of Present illness Narrative* Guy Gonzalez APRN.CNP - 06/11/2023 10:44 AM EDT Dip Tanker offered: Patient declines. Kelli Monroy is a 73 year old female who presents for problem visit of vaginal irritation. HPI: Kelli is here due to vaginal irritation that has been occurring for the last few days. Small amount of discharge. She also experiences vaginal dryness. She is concerned about the facial hair to her chin. She has been seen by endocrinology before outside of [facility] that informed her that hormone levels were normal. She would like her thyroid checked - reports a new feeling with swallowing. No vaginal bleeding. Some urinary frequency. OB History T0 L3 SAB0 IAB0 Ectopic0 Multiple0 Live Births0 Firesetter History LMP: Postmenopausal Age at Menarche: Age at First : Age at Menopause: Firesetter History Comments: Sexual Activity: Not Currently; No [...] Problem Relation Age of Onset Heart Mother [place] Osteoporosis Mother Heart Father [place] Heart Sister bunddle block Hyperlipidemia Sister Hypertension Sister Heart disease Sister Hyperlipidemia Sister Heart Brother Hyperlipidemia Brother Hypertension Brother Breast Cancer Daughter Social History Tobacco Use Smoking status: Never Smokeless tobacco: Never Vaping Use Vaping Use: Never used Substance Use Topics Alcohol use: No Drug use: No Current Outpatient Medications Medication Sig calcium/chondr/collag/glycosam (BEYOND BONE BROTH ORAL) Take by mouth. Bone Broth Collagen 1 Scoop per day (2 table spoons) cyanocobalamin/folic acid (FOLIC ACID-B12 ORAL) Take by mouth. Gets from Functional doctor zoledronic acid (RECLAST) 5 mg/100 mL pgbk PREMIX piggyback Zoledronic Wrya-Ypaamazn-Jxssf Active 1EACH .Route ONCE 100 February 07, 2021 11:08am onceinfuse over 20 minutes cholecalciferol, vitamin D3, (VITAMIN D3 ORAL) Take 1 tablet by mouth two times a week. With k2 acetaminophen (TYLENOL EX STR RAPID RELEASE ORAL) Take 1,000 mg by mouth twice daily as needed. No current facility-administered medications for this visit. Allergies As of Date: 06/11/2023 Allergen Noted Reaction DULOXETINE 09/14/2019 Rash Fully Assessed 05/22/2023 REVIEW OF SYSTEMS. Expanded ROS: EDITOR DEPARTMENT: Positive for vaginal irritation Allergies and current medication updated: EXAM: BP 140/80 Pulse 70 Wt 154 lb 9.6 oz (70.1kg) SpO2 99% GENERAL: pleasant, female in no apparent distress HEENT: Normocephalic, atraumatic, mucus membranes moist, and no lesions NECK: Supple, full range of motion, and no adenopathy DERMATOLOGY: Normal, without lesions, non-icteric + facial hair growth to chin CHEST: Normal inspiratory effort PELVIC: normal Bartholin's glands, urethra, [place]'s glands, no vulvar lesions, + cervix surgically absent, good vaginal support, physiologic discharge present, normal appearing perineal body and perianal region + atrophy noted to external genitalia, vaginal cuff, erythema BIMANUAL: no adnexal masses, non-tender, and uterus surgically absent NEURO: alert and oriented x3,exam grossly non-focal EXTREMITIES: normal ASSESSMENT AND PLAN: 1. 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 Would seek approval from oncologist before considering 2. Vaginal irritation - ICD9: 623.9, ICD10: N89.8 - ANAID/TRICHOMONAS NAAT - BACTERIAL VAGINOSIS NAAT 3. Urinary frequency - ICD9: 788.41, ICD10: R35.0 - UA DIP, URINE (POC) - URINE CULTURE 4. Screening for thyroid disorder - ICD9: V77.0, ICD10: Z13.29 - THYROID STIMULATING HORMONE - T4 FREE/FREE THYROXINE - Recommend follow up with PCP about new swallowing sensation 5. Hirsutism - ICD9: 704.1, ICD10: L68.0 - Consider second opinion from [facility] route delivery supervisor. - Patient to notify if she would like to proceed with consult Guy Gonzalez APRN.CNP I spent a total of 30 minutes on the date of the service which included preparing to see the patient, [id number] patient care, completing clinical documentation, performing a medically appropriate examination, counseling and educating the patient/family/caregiver, ordering medications, tests, or p rocedures, communicating with other HCPs (not separately reported), and communicating results to the patient/family/caregiver. documented in this encounterKeenan Private Hospital12-11-2023 History of Present illness Narrative* Ricardo Baker Mammo Tech - 02/02/2023 11:30 AM EST Radiology Service Progress Note PATIENT NAME: Kelli Monroy DATE OF SERVICE: February 02, 2023 TIME: 11:32 AM PATIENT IDENTITY VERIFICATION COMPLETED USING TWO (2) IDENTIFIERS: Name and Date of confirmedby patient verbally. FALL SCREENING: Has the patient [...] 02, 2023 11:32 AM documented in this encounterKeenan Private Hospital10-26-2023 Miscellaneous Notes* Telephone Encounter - Brunilda Min LPN - 12/18/2022 8:41 AM EDT Spoke with pt and below message given. All questions answered, Brunilda Min LPN * Telephone Encounter - Prisca Rviera MD - 12/17/2022 5:50 PM EDT If no concerns she can be seen every other year. * Telephone Encounter - Nikia Pacheco RN - 12/17/2022 2:40 PM EDT Patient calling to see if provider still recommends she be seen for annual exams every 1-2 years? She received a reminder letter in the mail, but she thought DM told her she no longer needed them. H/o breast cancer, but she still sees Deyanira Mendez and has her yearly mammograms for that. Last annual was 01/28/21 with DM. Please advise. Nikia Pacheco RN documented in this encounterKeenan Private Hospital09-29-2023 History of Present illness Narrative* Deyanira Mendez APRN.FINAL CLEANER - 11/21/2022 12:50 PM EDT Chief Complaint Patient presents with: Established Patient HPI: Kelli Monroy is a 72 year old female who presents here today for follow up breast cancer. Per Dr. 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 In regards to her history of breast cancer, per Dr. Chavarria's most recent note (verified and updated byme today). Menstrual history began age 12 and patient had a complete hysterectomy at age 28 because of abnormal uterine prolapse. Patient had been on estrogen replacement therapy with Prempro until 10 years prior to breast cancer diagnosis. Patient had previous right breast biopsy in 1967. Patient was diagnos ed with osteopenia in 2006, and she was [...] has 3 children all of whom are aliveand well today. Patient also had BRCA1 and BRCA2 testing prior to surgery. She believes they were negative. Patient underwent a successful lumpectomy and sentinel lymph node biopsy of the right breast on February 11, 2016. Pathology: Right sentinel lymph node negative or tumor by H&E and immunohistochemical study. Lumpectomy specimen: Invasive well-differentiated ductal carcinoma, 1 centimeter greatest dimensionextending to within 1 millimeter of the medial [...] demonstrated no mass. Echocardiogram at [facility] 02/21/2022: Left ventricular systolic function is normal. [...] fevers and fatigue for about a year. Travel Coordinator temperatures from 03/26 through eMacs of 99.8 on 03/29 and a Tmax of 100.3 on 03/31 at 8:30 in the morning and then 100.1 at 11 AM on 04/01. Pt. was seen by ID recently for FUO. Labs pending from that visit. All other specialist visits-work ups have been negative. No new concerns today. Appetite:Good. Wt. stable. Energy level:It's getting better. I started on B12. Denies [...] (97.5 F) (Temporal) Ht 161.9 cm (5' 3.75) Wt 68.5 kg (151 lb) SpO2 99% [...] ICD10: Z85.3 (primary diagnosis) pT1b pN0 Mx ER/[place] positive, HER2 negative stage IA invasive ductal [...] 05/21/22-Dr. Weber was copied and pasted, documentation hasbeen reviewed and edited as necessary for today's visit. Deyanira Mendez APRN.CNP documented in this encounterKeenan Private Hospital05-11-2023 Miscellaneous Notes* Telephone Encounter - Brunilda Min LPN - 07/03/2022 10:16 AM EDT Pt notified of results, all questions answered no further concerns. Brunilda Min LPN' * Telephone Encounter - Adelaida Brink APRN.CNP - 07/03/2022 9:34 AM EDT DM pt Please let the pt know that her urine culture is negative for infection. Adelaida Brink APRN.CNP documented in this encounterKeenan Private Hospital05-09-2023 History of Present illness Narrative* Prisca Cox MD - 07/01/2022 3:01 PM EDT Dip Tanker offered: Patient declines. Kelli Monroy is a 72 year old female who presents for problem visit dysuria and vaginal dryness for5 year(s)., Low-grade fevers, facial hair, blood in [...] L3 SAB0 IAB0 Ectopic0 Multiple0 Live Births0 Firesetter History LMP: Postmenopausal Age at Menarche: Age at First : Age at Menopause: Firesetter History Comments: Sexual Activity: Not Currently; No [...] Problem Relation Age of Onset Heart Mother [place] Osteoporosis Mother Heart Father [place] Heart Sister bunddle block Hyperlipidemia Sister Hypertension [...] 5 mg/100 mL pgbk PREMIX piggyback Zoledronic Aubw-Qwbckqvy-Daznm Active 1EACH .Route ONCE 100 February 07, 2021 11:08am [...] which included preparing to see the patient, [id number] patient care, completing clinical documentation, obtaining and/or reviewing separately obtained history, performing a medically appropriate examination, counseling and educating the pat ient/family/caregiver, and ordering medications, tests, or procedures Medical Decision Making: Medical Decision Making Level: 1 - N/A Prisca Latham MD documented in this encounterKeenan Private Hospital05-03-2023 Instructions* Patient Instructions* Olga Steinberg APRN.[facility] - 06/25/2022 10:45 AM EDT Non-Hormonal Vaginal [...] penis or fingers just before sex. Coconut, [place], Avocado or Peanut oil- natural oils are [...] are available in pharmacies and online. Restore- GameSkinny Replens Stan Feminease Moist Again K-Y Liquid beads Products to assist with maintaining vaginal ph IsoFresh www.[email or web address] Rephresh documented in this encounterKeenan Private Hospital05-03-2023 History of Present illness Narrative* Olga Steinberg APRN.CNM - 06/25/2022 10:25 AM EDT Kelli Monroy is a 72 year old female who presents for vaginal burning for 2 days. Some pain with urinating. Hx of UTI's and didn't know she had therm. Stated urine has strong odor. Vaginal dryness. [...] plans Olga Steinberg APRN.CNM documented in this encounterKeenan Private Hospital03-30-2023 Miscellaneous Notes* Telephone Encounter - RUTH Caruso - 05/22/2022 11:32 AM EDT SOCIAL WORK DISTRESS ASSESSMENT Referral made due [...] and reports she is planning to call [facility] this afternoon to schedule a consult [...] No other needs identified by pt. Pt veryappreciative of SW call. Exercising: No Stress Management: [...] Care Team tab: Yes Assessment Completed RUTH Caruso-Aura documented in this encounterKeenan Private Hospital03-15-2023 Miscellaneous Notes* Addendum Note - Charlotte Murillo LPN - 05/07/2022 2:29 PM EDTAddended by: CHARLOTTE MURILLO LPN on: 05/07/2022 02:29 PM Modules accepted: Orders documented in this encounterKeenan Private Hospital03-15-2023 Procedure note* Robert Weber DO - 05/07/2022 2:19 PM EDTAssociated Order(s): BONE MARROW BIOPSY Post-Procedure Diagnose(s): Fever, low grade BEDSIDE PROCEDURE NOTE BONE MARROW BIOPSY Performed by: Robert Weber DO Authorized by: Robert Weber DO Informed Consent Consent Obtained: Written [place] Protocol A moment to CARE was completed. [...] SIGNATURE: Robert Weber DO PATIENT NAME: Kelli SCHULZ: May 07, 2022 TIME: 2:19 PM documented in this encounterKeenan Private Hospital03-15-2023 Nurse Note* Charlotte Murillo LPN - 05/07/2022 2:15 PM EDT Pt discharged to home with shae [place] after BMBX with dry sterile dressing in place. No drainage noted. Post-procedure care reviewed with patient. Pt to call with any complaints of redness, swelling, increased or unresolved pain, bleeding, chills, bruising, and/or fever. Pt verbalized understanding. Charlotte Murillo LPN documented in this encounterKeenan Private Hospital02-27-2023 Miscellaneous Notes* Telephone Encounter - Charlotte Murillo LPN - 04/21/2022 3:17 PM EST reviewed percocet and ativan prior to procedure. Discussed what to wear. Charlotte Murillo LPN * Telephone Encounter - Mandy Wagner Pss - 04/21/2022 3:00 PM EST Please call patient in regards to medication questions prior to bone biopsy on 05/07 documented in this encounterKeenan Private Hospital02-20-2023 Miscellaneous Notes* Telephone Encounter - Kari Hawthorne - 04/14/2022 11:26 AM EST Spoke with patient and scheduled for first available on 05/07/22. Patient asked to be on a wait listfor BMBX. Est Complex OV scheduled. Kari Hawthorne * Telephone Encounter - Twila Lopez Pss - 04/14/2022 10:47 AM EST Patient called requesting April 23. Please advise if avail and inform patient. * Telephone Encounter - Bailey Marquez - 04/11/2022 4:21 PM ESTSummary: AVS 04/11/22 Check out comments: Bone marrow biopsy next available time that works for her. CBC that day. OV 1-2 weeks after biopsy. Pt stated she would call in to schedule once she speaks with her daughter to find out when would vianey good time. When pt calls in please warm transfer her to [facility] Pss Thank you! 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 In regards to her history of breast cancer, per Dr. Chavarria's most recent note (verified and updated byme today). Menstrual history began age 12 and patient had a complete hysterectomy at age 28 because of abnormal uterine prolapse. Patient had been on estrogen replacement therapy with Prempro until 10 years prior to breast cancer diagnosis. Patient had previous right breast biopsy in 1967. Patient was diagnos ed with osteopenia in 2006, and she was [...] has 3 children all of whom are aliveand well today. Patient also had BRCA1 and BRCA2 testing prior to surgery. She believes they were negative. Patient underwent a successful lumpectomy and sentinel lymph node biopsy of the right breast on February 11, 2016. Pathology: Right sentinel lymph node negative or tumor by H&E and immunohistochemical study. Lumpectomy specimen: Invasive well-differentiated ductal carcinoma, 1 centimeter greatest dimensionextending to within 1 millimeter of the medial [...] demonstrated no mass. Echocardiogram at [facility] 02/21/2022: Left ventricular systolic function is normal. [...] fevers and fatigue for about a year. Travel Coordinator temperatures from 03/26 through eMacs of 99.8 on 03/29 and a Tmax of 100.3 on 03/31 at 8:30 in the morning and then 100.1 at 11 AM on 04/01. Presents for ongoing hematologic management. Interim history: She is continued had low-grade temps. Most are in the 99-100 range. She still has underarm sweatingwhich is unusual for her. She brought to [...] blood tinged. Has CT sinuses scheduled at [facility]. Resp: Daily dry cough. Denies wheeze and hemoptysis. Denies shortness of breath at rest. Denies BRAVO. CVS: Denies exertional chest pain, PND, orthopnea and LE edema. Occasional palpitations. She has a history of lower extremity varicosities for which she uses compression stockings. No history of DVT. GI: Denies dysphagia and odynophagia. Denies reflux, n/v, change in bowel habits. Stools formed. [place] or bloody stools. Denies abdominal pain. : [...] (97.2 F), weight 71.2 kg (157 lb), CsP188 %. Well-appearing and in no acute distress. [...] lower extremity varicosities. BREAST: Nurse acted as production control manager. Fine transverse scar central upper right breast. No concerning mass or nodule. Left breast exam no concerning mass or nodule. ABDOMEN: The abdomen is nondistended. No organomegaly. No tenderness. Extremities: She has mild symmetric swelling without pitting edema. SKIN: No jaundice or rash. No petechiae. NEUROLOGIC: ribbon inker II-XII are grossly intact. LABORATORY DATA: Component [...] Abs Lymph 1.00 - 4.00 k/uL 1.26 Darke% % 12.0 Abs Darke <0.87 k/uL 0.83 Eosin% % 0.7 Abs [...] 03/2021. I verified this through [facility] electronic record. ASSESSMENT/PLAN: (R50.9) Fever, unspecified fever [...] Highest recorded value was 100.7. She also hasexcessive axillary sweating and fatigue. -pT1b pN0 Mx ER/[place] positive, HER2 negative stage IA invasive ductal [...] procedure. Instructed her she will need a local bulk driver. Also advised her to avoid aspirin [...] care. Robert Weber DO documented in this encounterKeenan Private Hospital02-13-2023 Miscellaneous Notes* Telephone Encounter - Robert Weber DO - 04/07/2022 10:47 AM EST Noted. Thank you. Robert Weber DO * Telephone Encounter - Mandy Person RN - 04/07/2022 10:22 AM EST Patient calling to update Dr. Weber that she had her CT scan completed at [facility] 04/01/22 and the results were to be faxed to Dr. Weber's office. Pt calling to ensure that Dr. Weber's office did receive it. Pt states if it was not received, that Dr. Weber should be able to access the record through [facility]. Pt states she will be calling Dr. Mckenna's office today to get his plan for her regarding the CT results, since she may have a low-grade chronic sinusitis causing her low-grade fevers. Pt states she will call back with update Mandy Person RN * Telephone Encounter - Robert Weber DO - 04/06/2022 6:31 PM EST Noted. Thank you. Robert Weber DO * Telephone Encounter - Patricia Norman Pss - 04/06/2022 1:42 PM EST I called and spoke to Kelli and she stated understanding of the below results. She stated that she had the CT scan at [facility] last week on 04/01/22, the same day she seen you. She stated she still hasn't heard anything from but she was able to print the CT scan report herself. She thinks the scan looks ok but she will try to call 's office tomorrow about what he has to say Patricia Warner * Telephone Encounter - Robert Weber DO - 04/06/2022 10:11 AM EST Can let her know her blood counts are normal and the bone scan suggested no bone metastases or cancer otherwise in the bones. Ask her to contact us once she has the CT of the sinuses at [facility] and hearsfrom Dr. Mckenna what his plan is since she may have a low-grade chronic sinusitis causing her low-grade fevers. If that is not the case, then we can consider proceeding with bone marrow biopsy. Robert Weber DO documented in this encounterKeenan Private Hospital02-10-2023 Miscellaneous Notes* Telephone Encounter - KARISSA Ladd - 04/04/2022 3:50 PM EST CD/report READY FOR [facility] * Telephone Encounter - Twila Lopez Pss - 04/04/2022 11:33 AM EST Patient called requesting disk and report of 04/03 whole body bone scan. Patient will case picker next week. documented in this encounterKeenan Private Hospital02-09-2023 History of Present illness Narrative* Valarie Marrero RT(R) - 04/03/2022 10:00 AM EST RADIOLOGY SERVICE PROGRESS NOTE SERVICE DATE: 04/03/2022 [...] creatinine assay has traceable calibration to isotope dilution- mass spectrometry. Refer to KDIGO guidelines for clinical interpretation. In patients with unstable renal function, e.g. those with acute kidney injury, the eGFRmay not accurately reflect actual GFR. eGFR- Date Value Ref Range Status 02/11/2018 >60 Final P.O.C.T. RESULTS: N/A April 03, [address] PERFORMED: No IV SITE: Ambulatory: A peripheral IV was started in the Left antecubital site with a Angio cath: 24gauge. POST EXAM PIV STATUS: Discontinued PROCEDURE TYPE: NM INJECT: Whole Body Bone Scan. 22.1 mCi Tc99m MDP. No other medications given.. ADMINISTRATION TIME: 10:15 PATIENT DISCHARGED TO: Ambulatory patient, left NM department area. A Diagnostic radioactive procedure has taken place, with no further precautions necessary other than routine body substance precautions. More information regarding radiation safety can be found usingthis link: [email or web address] SIGNATURE: AURELIA Hartman PATIENT NAME: Kelli Monroy DATE: April 03, 2022 TIME: 11:05 AM PAGER/CONTACT #: documented in this encounterKeenan Private Hospital02-08-2023 Miscellaneous Notes* Telephone Encounter - Kari Esquivel RN - 04/02/2022 12:53 PM EST Pt notified. * Telephone Encounter - DO Reno Gonzalez 04/02/2022 12:40 PM EST Can let her know the ultrasound of her legs showed no evidence of blood clots. 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 In regards to her history of breast cancer, per Dr. Chavarria's most recent note (verified and updated byme today). Menstrual history began age 12 and patient had a complete hysterectomy at age 28 because of abnormal uterine prolapse. Patient had been on estrogen replacement therapy with Prempro until 10 years prior to breast cancer diagnosis. Patient had previous right breast biopsy in 1967. Patient was diagnos ed with osteopenia in 2006, and she was [...] has 3 children all of whom are aliveand well today. Patient also had BRCA1 and BRCA2 testing prior to surgery. She believes they were negative. Patient underwent a successful lumpectomy and sentinel lymph node biopsy of the right breast on February 11, 2016. Pathology: Right sentinel lymph node negative or tumor by H&E and immunohistochemical study. Lumpectomy specimen: Invasive well-differentiated ductal carcinoma, 1 centimeter greatest dimensionextending to within 1 millimeter of the medial [...] demonstrated no mass. Echocardiogram at [facility] 02/21/2022: Left ventricular systolic function is normal. [...] fevers and fatigue for about a year. Travel Coordinator temperatures from 03/26 through eMacs of 99.8 [...] blood tinged. Has CT sinuses scheduled at [facility]. Resp: Daily dry cough. Denies wheeze and hemoptysis. Denies shortness of breath at rest. Denies BRAVO. CVS: Denies exertional chest pain, PND, orthopnea and LE edema. Occasional palpitations. She has a history of lower extremity varicosities for which she uses compression stockings. No history of DVT. GI: Denies dysphagia and odynophagia. Denies reflux, n/v, change in bowel habits. Stools formed. Noblack or bloody stools. Denies abdominal pain. : [...] C (97.9 F), height 163 cm (5' 4.17), weight 71.4 kg (157 lb 8 oz), [...] lower extremity varicosities. BREAST: Nurse acted as production control manager. Fine transverse scar central upper right breast. No concerning mass or nodule. Left breast exam no concerning mass or nodule. ABDOMEN: The abdomen is nondistended. No organomegaly. No tenderness. Extremities: She has mild symmetric swelling without pitting edema. SKIN: No jaundice or rash. No petechiae. NEUROLOGIC: ribbon inker II-XII are grossly intact. LABORATORY DATA: Component [...] 03/2021. I verified this through [facility] electronic record. ASSESSMENT/PLAN: (R50.9) Fever, unspecified fever [...] Highest recorded value was 100.7. She also hasexcessive axillary sweating and fatigue. -pT1b pN0 Mx ER/[place] positive, HER2 negative stage IA invasive ductal [...] has chronic nasal drainage with blood-tinged mucus. Sheis scheduled for CT of the sinuses at [facility] as ordered by her ENT physician. -I [...] which included preparing to see the patient, [id number] patient care, completing clinical documentation, obtaining and/or reviewing separately obtained history, performing a medically appropriate examination, counseling and educating the pat ient/family/caregiver, ordering medications, tests, or procedures, independently interpreting results (not separately reported), communicating results to the patient/family/caregiver, and care coordination (not separately reported). Robert Weber DO documented in this encounterKe[facility]-27-2023 Miscellaneous Notes* Telephone Encounter - Angela Crawford - 03/21/2022 11:15 AM EST Patient called back and confirmed understanding of appointment time change. * Telephone Encounter - Bailey Marquez - 03/20/2022 3:50 PM EST 1st attempt: MC sent to inform pt of apt time change due to providers schedule changes documented in this encounterKeenan [facility]01-24-2023 Miscellaneous Notes* Telephone Encounter - Corry Villalba LPN - 03/18/2022 12:29 PM EST Left message on voicemail that there is nothing on sans or in recent labs that would warrant a bx. Keep scheduled appt. In July. Corry Villalba LPN * Telephone Encounter - Deyanira Mendez APRN.CNP - 03/18/2022 12:13 PM EST Noted. Deyanira Mendez APRN.LUPE * Telephone Encounter - Corry Villalba LPN - 03/18/2022 11:58 AM EST Spoke with pt. She was worked up [...] is worrying about nothing. Corry Villalba LPN * Telephone Encounter - Deyanira Mendez APRN.CNP - 03/18/2022 11:32 AM EST Noted. Pt. needs to follow up with PCP to be worked up for fevers. We would not initiate AI's or tamoxifen again at this point (Unless a new dx). She stopped 5 years ago. Thank you. Deyanira Mendez APRN.LUPE * Telephone Encounter - Erin Fernandez - 03/18/2022 10:17 AM EST Pt would like to discuss possible treatment again. She has had low grade fever for the last few months. No known reason for it. documented in this encounterKeen[facility]01-03-2023 History of Present illness Narrative* Brunilda Daugherty RT(R) - 02/25/2022 2:00 PM EST Radiology Service Progress Note DATE OF SERVICE: [...] creatinine assay has traceable calibration to isotope dilution- mass spectrometry. Refer to KDIGO guidelines for clinical interpretation. In patients with unstable renal function, e.g. those with acute kidney injury, the eGFRmay not accurately reflect actual GFR. eGFR- Date [...] 2022 TIME: 3:39 PM documented in this encounterKeenan [facility] Hospital12-11-2022 Miscellaneous Notes* Letter - Mammography Coordinator - 02/02/2022 5:44 AM EST February 02, 2022 PID: [id number] Kelli Monroy [address] [place] [address] Dear Ms. Monroy, We are pleased to [...] report will be [facility] as part of your permanent medical record and are available for your continuing care. Thank you for allowing us to help in meeting your health care needs. Sincerely, Dr. Lopez Interpreting Radiologist [facility] (Normal over 40) documented in this encounterKeenan Private Hospital12-09-2022 History of Present illness Narrative* Tess Briones RT(R) - 01/31/2022 9:30 AM EST Radiology Service Progress Note PATIENT NAME: Kelli Monroy DATE OF SERVICE: January 31, 2022 TIME: 9:25 AM PATIENT IDENTITY VERIFICATION COMPLETED USING TWO (2) IDENTIFIERS: Name and Date of confirmedby patient verbally. FALL SCREENING: Has the patient had 2 falls in the last year or 1 fall with injury or currently using an Ambulatory Assistive Device (Walker, Cane, Wheelchair, Crutches, etc.)? No PATIENT GENDER DATA: Female. status: : No status: NO. PATIENT RELEVANT IMPLANT DATA REVIEWED: Not Applicable RADIOLOGY DEPARTMENT: Mammography PERIPHERAL IV DATA: Not applicable SIGNED BY: RT Jack(Faheem) January 31, 2022 9:25 AM documented in this encounterKeenan [facility] Hospital12-01-2022 History of Present illness Narrative* Della Salazar RDMS - 01/23/2022 10:45 AM EST Radiology Service Progress Note PATIENT NAME: Kelli Monroy DATE OF SERVICE: January 23, 2022 TIME: 11:05 AM PATIENT IDENTITY VERIFICATION COMPLETED USING TWO (2) IDENTIFIERS: Name and Date of confirmedby patient verbally. FALL SCREENING: Has the patient had 2 falls in the last year or 1 fall with injury or currently using an Ambulatory Assistive Device (Walker, Cane, Wheelchair, Crutches, etc.)? No PATIENT GENDER DATA: Female. status: : No status: NO. PATIENT RELEVANT IMPLANT DATA REVIEWED: Not Applicable RADIOLOGY DEPARTMENT: Ultrasound PERIPHERAL IV DATA: Not applicable SIGNED BY: Della Salazar RDMS RVT January 23, 2022 11:05 AM documented in this encounterKeenan [facility] Hospital11-03-2022 History of Present illness Narrative* Andres Vasquez MD - 12/26/2021 3:48 PM EDT Kelli Monroy is a 71 year old female who presents for problem visit. HPI: Patient presents with urinary urgency & dysuria. Denies vaginitis symptoms but she has stable vaginal dryness. OB History T0 L3 SAB0 IAB0 Ectopic0 Multiple0 Live Births0 Firesetter History LMP: Postmenopausal Age at Menarche: Age at First : Age at Menopause: Firesetter History Comments: Sexual Activity: Not Currently; No [...] Problem Relation Age of Onset Heart Mother [place] Heart Father [place] Heart Sister bunddle block Hyperlipidemia Sister Hypertension [...] Low Andres Vasquez MD documented in this encounterKeenan Private Hospital11-03-2022 Miscellaneous Notes* Telephone Encounter - Brunilda Min LPN - 12/26/2021 3:21 PM EDT Spoke with pt and appt scheduled for 3:40 this afternoon. Brunilda Min LPN * Telephone Encounter - Twila Warner - 12/26/2021 3:04 PM EDT Patient called stating she may have a UTI. she is experiencing burning and is asking if she needs appointment or testing. Please call patient and advise. documented in this encounterKeenan Private Hospital06-07-2022 History of Present illness Narrative* Deyanira Mendez APRN.LUPE - 07/30/2021 2:06 PM EDT Chief Complaint Patient presents with: Yearly Exam [...] has 3 children all of whom are aliveand well today. Patient also had BRCA1 and BRCA2 testing prior to surgery. She believes they were negative. Patient underwent a successful lumpectomy and sentinel lymph node biopsy of the right breast on February 11, 2016. She has postsurgical pain, or lymphedema. Pathology as follow: Right sentinel lymph node negative or tumor by H&E and immunohistochemical study Lumpectomy specimen: Invasive well-differentiated ductal carcinoma, 1 centimeter greatest dimensionextending to within 1 millimeter of the medial [...] GI. Pt. feels that she is having alf side effects from AI/tamoxifen. Appetite:Good. Energy level:Poor. Denies fevers. Resp:denies cough or sob Cardiac:denies [...] C (98.1 F) Ht 163.8 cm (5' 4.5) Wt 65.1 kg (143 lb 8 oz) SpO2 97% BMI 24.25 kg/m APPEARANCE Well appearing, alert, in no acute distress, well-hydrated, well nourished. HEART RRR with normal S1 and S2, no murmurs LUNG clear to auscultation BREAST FEMALE no mass/nodule b/l LYMPH NODES No cervical lymphadenopathy, No supraclavicular lymphadenopathy and No axillary lymphadenopathy. ABDOMEN bowel sounds normoactive, soft, non-tender, non-distended, without organomegaly or palpablemasses EXTREMITIES No edema NEURO Awake, alert and oriented x 3, Normal gait and No involuntary motions. SKIN Skin color, texture, turgor normal, no suspicious rashes or lesions ASSESSMENT/PLAN: 1. Malignant neoplasm of upper-inner quadrant of right breast in female, estrogen receptor positive(HCC) - ICD9: 174.2, V86.0, ICD10: C50.211, Z17.0 Stage IB, well-differentiated invasive ductal carcinoma S/p lumpectomy and sentinel lymph node biopsy of the right breast on February 11, 2016. Completed radiation 04/14/16. - No new concerning findings on exam. - Pt. did not tolerate AI/tamoxifen-stopped prematurely. Declined further AI/Tamoxifen therapy. - Mammogram per [facility]. - Follow up with [facility] as scheduled. - Follow up in one year. - Pt. aware to call office with any questions/concerns. The patient indicates understanding of these issues and agrees with the plan. All documentation from previous visit of 07/30/20-Dr. Chavarria was copied and pasted, documentation has been reviewed and edited as necessary for today's visit. Deyanira Mendez APRN.CNP documented in this encounterKeenan [facility] Hospital05-20-2022 History of Present illness Narrative* Adriana Vasquez APRN.CNP - 07/12/2021 6:34 PM EDT Images from the original note were not included. Subjective Patient came in with complaints of possible rash on the left front mcgarry. Said she layed down to take a nap and work up with it. Denies any pain in the area. Denies itching. Said it has happened before and went away on its own. The history is provided by the patient. No high school foreign language tutor was used. Rash Review of Systems Constitutional: [...] Problem Relation Age of Onset Heart Mother [place] Heart Father [place] Heart Sister bunddle block Hyperlipidemia Sister Hypertension [...] appear go to the ER. Patient was okaywith this care plan. Adriana Vasquez APRN.LUPE documented in this encounterKeenan Private Hospital05-05-2022 Miscellaneous Notes* Telephone Encounter - Lesley Dey RN - 06/27/2021 12:18 PM EDT Scopis message sent to patient with information. Lesley Dey RN * Telephone Encounter - Prisca Cox MD - 06/27/2021 11:48 AM EDT Yes, I do recommend yearly mammograms. * Telephone Encounter - Nikia Pacheco RN - 06/26/2021 4:57 PM EDT See PSS note. Order was already placed 01/2021. Nikia Pacheco RN * Telephone Encounter - Erin Fernandez - 06/26/2021 4:37 PM EDT Pt would like to have confirmation that Dr. Cox would like her to have a mammogram this year. She knows she is not due until January. documented in this encounterKeenan Private Hospital05-04-2022 History of Present illness Narrative* Brunilda Huerta, RT(R) - 06/26/2021 11:00 AM EDT Radiology Service Progress Note DATE OF SERVICE: [...] creatinine assay has traceable calibration to isotope dilution- mass spectrometry. Refer to KDIGO guidelines for clinical interpretation. In patients with unstable renal function, e.g. those with acute kidney injury, the eGFRmay not accurately reflect actual GFR. eGFR- Date Value Ref Range Status 02/11/2018 >60 Final P.O.C.T. RESULTS: POC done: Yes, See Lab Tab June 26, 2021 TREATMENT: N/A PERIPHERAL IV DATA: Ambulatory: A peripheral IV was started in the Left antecubital site with a Angio cath: 22 gauge. RADIOLOGY DEPARTMENT: CT; Exam(s) Completed: Chest SIGNATURE: RT Shanna(Faheem) PATIENT NAME: Kelli Monroy DATE: June 26, 2021 TIME: 1:31 PM documented in this encounterKeenan Private Hospital04-09-2022 History of Present illness Narrative* Adriana Vasquez APRN.FINAL CLEANER - 06/01/2021 2:25 PM EDT CC: Patient presents with: Fever: fatigue x [...] kg (140 lb 9.6 oz) SpO2 99% BMI24.29 kg/m General appearance: alert, cooperative, pleasant, in [...] Problem Relation Age of Onset Heart Mother [place] Heart Father [place] Heart Sister bunddle block Hyperlipidemia Sister Hypertension [...] plan. Adriana Vasquez APRN.CNP documented in this encounterKeenan Private HospitalEvaluation + Plan note Future Appointments Appointment Date:05/30/2021 11:00:00 AM Scheduled Provider:NAHOMI LOBO Location:[facility] Appointment Type:CV OV Appointment Date:02/26/2022 02:00:00 PM Scheduled Provider:DONG BARBOSA Location:[facility] Appointment Type:BS OV Follow Up [facility] Evaluation + Plan note Future Appointments Appointment Date:05/29/2022 10:30:00 AM Scheduled Provider:NAHOMI LOBO Location:[facility] Appointment Type:CV OV Appointment Date:02/26/2023 11:00:00 AM Scheduled Provider:THONG AGUILAR Location:[facility] Appointment Type:BS OV Future Scheduled Tests Radiology* MA Mammo Screening Bilateral w/ Mic 01/26/23 [facility] Evaluation + Plan note Future Appointments Appointment Date:05/29/2022 10:30:00 AM Scheduled Provider:NAHOMI LOBO Location:[facility] Appointment Type:CV OV Appointment Date:02/26/2023 11:00:00 AM Scheduled Provider:THONG AGUILAR Location:[facility] Appointment Type:BS OV Diagnostic Tests Pending * [facility] Send out (Blood Specimens) 03/03/22 Future Scheduled Tests Radiology* MA Mammo Screening Bilateral w/ Mic 01/26/23 [facility] Evaluation + Plan note Future Appointments Appointment Date:12/04/2022 02:30:00 PM Scheduled Provider:NAHOMI LOBO Location:[facility] Appointment Type:CV OV Appointment Date:02/26/2023 11:00:00 AM Scheduled Provider:THONG AGUILAR Location:[facility] Appointment Type:BS OV Future Scheduled Tests Radiology* MA Mammo Screening Bilateral w/ Mic 01/26/23 [facility] Evaluation + Plan note Future Appointments Appointment Date:08/15/2024 10:30:00 AM Scheduled Provider:NAHOMI LOBO Location:[facility] Appointment Type:CV OV Appointment Date:03/16/2025 01:30:00 PM Scheduled Provider: Location:[facility] Appointment Type:MA Mammogram Screening Bilateral w/ Mic Appointment Date:03/16/2025 02:00:00 PM Scheduled Provider:THONG AGUILAR Location:[facility] Appointment Type:BS OV Follow Up Future Scheduled Tests Radiology* MA Mammo Screening Bilateral w/ Mic 03/16/25 [facility] Evaluation note* Diagnosis Onset Date Resolution Status Osteoporosis chronic Hyperparathyroidism acute Paresthesia acute Osteoporosis [facility] Work Phone: evaluation note* Diagnosis Cough- Primary Suspected COVID-19 virus infection documented in this encounter [facility] note* Diagnosis Onset Date Resolution Status Hyperparathyroidism acute Paresthesia acute Osteoporosis [facility] Work Phone: Evaluation note* Diagnosis Discoloration of skin- Primary Dyschromia, unspecified documented in this encounter [facility] note* Diagnosis Onset Date Resolution Status Hyperparathyroidism acute Paresthesia acute Osteoporosis chronic Arthritis acute Back pain acute Neck pain acute Paresthesia acute Degenerative disc disease, cervical acute [facility] Work Phone: Evaluation note* Diagnosis Malignant neoplasm of upper-inner quadrant of right breast in female, estrogen receptor positive (HCC)- Primary documented in this encounter [facility] note* Diagnosis Urinary urgency- Primary Urgency of urination Dysuria documented in this encounter [facility] note* Diagnosis Onset Date Resolution Status Hyperparathyroidism acute Osteoporosis [facility] Work Phone: Evaluation note* Diagnosis Fever, unspecified fever cause- Primary Coagulation defect (HCC) Other and unspecified coagulation defects Leg swelling Swelling of limb Malignant neoplasm of upper-inner quadrant of right breast in female, 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, estrogen and progesterone receptor positive (HCC) Bone pain Disorder of bone and cartilage, unspecified documented in this encounter [facility] note* Diagnosis Fever, unknown origin- Primary Fever, unspecified Personal history of malignant neoplasm of breast documented in this encounter [facility] note* Diagnosis Malignant neoplasm of upper-inner quadrant of right breast in female, estrogen receptor positive (HCC)- Primary documented in this encounter [facility] note* Diagnosis Fever, low grade- Primary Fever, unspecified documented in this encounter [facility] note* Diagnosis Dysuria- Primary Vaginal burning Other specified symptom associated with female genital organs documented in this encounter [facility] note* Diagnosis Hematuria, unspecified type- Primary Dysuria Vaginal dryness Other specified symptom associated with female genital organs Abnormal facial hair Hirsutism Low grade fever Fever, unspecified [facility]* Diagnosis Personal history of malignant neoplasm of breast- Primary Encounter for screening mammogram for high-risk patient documented in this encounter [facility] note* Diagnosis Encounter for screening mammogram for malignant neoplasm of breast Other screening mammogram documented in this encounter [facility] note* Diagnosis Fever, unspecified fever cause Malignant neoplasm of upper-inner quadrant of right breast in female, 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, estrogen and progesterone receptor positive (HCC) Bone pain Disorder of bone and cartilage, unspecified documented in this encounter [facility] note* Diagnosis Personal history of malignant neoplasm of breast Encounter for screening mammogram for high-risk patient documented in this encounter [facility] note* Diagnosis Onset Date Resolution Status Degenerative disc disease, cervical acute Foraminal stenosis of cervical region acute Hyperparathyroidism chronic Menopausal hot flushes chron ic Osteoporosis chronic Symptoms of gastroesophageal reflux [facility] Work Phone: Evaluation note* Diagnosis Onset Date Resolution Status Degenerative disc disease, cervical acute Foraminal stenosis of cervical region acute Hyperparathyroidism chronic Menopausal hot flushes chron ic Osteoporosis chronic Symptoms of gastroesophageal reflux chronic Degenerative disc disease, cervical acute Foraminal stenosis of cervical region acute [facility] Work Phone: Evaluation note* Diagnosis Genitourinary syndrome of menopause- Primary Vaginal irritation Unspecified noninflammatory disorder of vagina Urinary frequency Screening for thyroid disorder Hirsutism documented in this encounter [facility] note* Diagnosis Onset Date Resolution Status Degenerative disc disease, cervical acute Foraminal stenosis of cervical region acute Heart palpitations acute [facility] Work Phone: Evaluation note* Diagnosis Urinary frequency- Primary Frequent UTI Urinary tract infection, site not specified documented in this encounter [facility] note* Diagnosis Encounter for screening mammogram for malignant neoplasm of breast- Primary Other screening mammogram documented in this encounter [facility] note* Diagnosis Encounter for screening mammogram for malignant neoplasm of breast Other screening mammogram documented in this encounter [facility] note* Diagnosis Venous (peripheral) insufficiency- Primary Unspecified venous (peripheral) insufficiency documented in this encounter [facility] course Narrative No data available for this section [facility] Discharge instructions No data available for this section [facility] Progress note No data available for this section [facility] Proxqvbj note Author Jeovanny Moore [facility] Note Date/Time July 29, 2024 11:27 am [facility] [address] [place] [address] [address] [place] [address] OFFICE VISIT Date of Service: 07/29/24 MR#: [id number] Acct: [id number] Name: KELLI MONROY Rep #: [id number] : 1950 Provider: Dr. Nato Moore, Age/Sex: 74/F Location: [facility] Status: Signed Intake Vital Signs 06/30/24 11:27 Height 5 ft 4 in Intake Visit Reasons: RIGHT KNEE Chief Complaint: 3rd Euflexxa injection Accompanied by: Self Is patient in pain?: Yes (pain in the calf muscle ) Allergies duloxetine (From Cymbalta) Adverse Reaction (Mild, Verified 07/29/24 11:15) dizziness Medications ?Medication ?Instructions ?Recorded ?Confirmed ?Type acetaminophen 500 mg tablet 1,000 mg PO BID PRN Pain 0 06/10/23 07/29/24 History (Tylenol Extra Strength) cholecalciferol (vitamin D3) 1,250 1,250 mcg PO QWEEK #4 caps 04/05/24 07/29/24 Rx mcg (50,000 unit) capsule cyanocobalamin (vitamin B-12) 100 mcg subcut QMONTH 07/29/24 History 1,000 mcg/mL injection solution Have you fallen in the past year?: Yes (Fainted at doctor's office ) PFSH Medical History Episode of syncope Influenza B Acute pharyngitis Burn of right upper extremity Atherosclerosis of coronary artery of [place] heart without angina pectoris Fibromyalgia Menopausal hot flushes Symptoms of gastroesophageal reflux Hypertension Hyperparathyroidism Paresthesia Skin cancer GERD (gastroesophageal reflux disease) Osteopenia Osteoarthritis Heart murmur Hormone deficiency High cholesterol Headache Gastrointestinal problem Cataracts, bilateral Breast cancer Breast lump UTI (urinary tract infection) Back problem Arthritis Hx of breast cancer Surgical History History of left heart catheterization (08/16/20) History of endoscopy History of colonoscopy History of lumpectomy Hx of cataract surgery H/O: hysterectomy Family History Father Heart disease Mother Heart disease Osteoporosis Thyroid disorder Brother Heart disease Hypertension Hypercholesterolemia Daughter Cancer Sister Arthritis Hypertension Hypercholesterolemia Osteoporosis Thyroid disorder Social History Smoking Status: Never smoker alcohol intake: never substance use type: does not use what type of physical activity do you participate in: walking and weight training frequency: 1-2 times per week HPI RIGHT KNEE Details: This documentation accurately reflects the service provided and the decisions made by me, Dr. Jeovanny Moore, DO 07/29/24 0737. Part of today?s visit was documented by Kathryn Mayen ATC, acting as scribe. KELLI MONROY is a 74 year old F here today for right knee 3rd Euflexxa injection. She states she is having some calf tightness in the right leg. She denies any reactions/concerns from the first 2 injections. Ortho Exam General General: Yes no acute distress and Yes well groomed Neurologic: Yes alert and Yes oriented x3 Psychologic: Yes reasonable and appropriate Right Knee Skin/Wound: No erythema, No ecchymosis and No swelling Knee ROM: Yes ROM-Extension -20 to 0 (-5) and Yes ROM-Flexion 0-140 (125) Examination: Yes Med jt line tenderness, No Pain with flexion, No Pain with extention, No Luz's Test, No TTP Pes Anserine and No Illiotibial band tenderness Stability: NML: Anterior Drawer, NML: Mag, NML: Posterior Drawer, NML: Varus0 and NML: Varus 30 and 1+: Valgus 0 (Due to medial joint space narrowing there is 3 mm of gapping) and 1+: Valgus 30 Apprehension with Lateral Translation: No Patella Grind: No KNEE: varus deformity no effusion varicose veins 3mm medial gapping w/ valgus stress Office Procedures Euflexxa Procedure Details:: Obtained consent for injection. Under sterile conditions, injected the patientsright knee with 3rd Euflexxa injection. The patient tolerated the injection well without any noted complication. Patient should call our office if redness develops, pain worsens or if they have any concerns. Is this Buy & Bill?: Yes Office Meds Euflexxa 10 mg/mL (mw 2.4-3.6 million) intra-articular syringe Performing Provider: Jeovanny Moore DO Performing Location: [facility] Administered by: Jeovanny Moore DO on 07/29/24 11:19 Dose Route Admin Location Dispensed Lot Number Expiration Date NDC [place] 20 mg intra-articular Right Knee 2 mL [id number] 06/27/25 [address]-8 [employer] Supplemental Info 08/13/2023 x-ray right knee on disc from [facility] moderate medial joint space narrowing severe on flexion view. Moderate patellofemoral arthrosis. Coding Level of Care Code Off vis,est,level 3 Diagnoses Primary osteoarthritis of right knee M17.11 Osteoarthritis type: primary Assessment and Plan Assessment and Plan (1) Osteoarthritis of right knee: Status: Acute Qualifiers: Osteoarthritis type: primary Qualified Code(s): M17.11 - Unilateral primary osteoarthritis, right knee Orders: Orders Euflexxa Injection Today M17.11 - Unilateral primary osteoarthritis, right knee Plan I did give her third right knee Euflexxa injection today I did also review totalknee arthroplasty and demonstrated with a model and explained what that involves. Follow up in an as needed basis or sooner if pain, swelling, numbness or associated symptoms, or concerns develop. All questions answered. Patient in agreement of plan. Clinical Quality Measures Falls Risk Screening/Assistive Devices Have you fallen in the past year?: Yes (Fainted at doctor's office ) 07/29/24 1127 <Electronically signed by Jeovanny hoffman DO> Date _ Jeovanny Moore DO Cosigner Signature: Date (if applicable) CC: ~ [employer] Work Phone: Reason for referral (narrative)* Diagnostic Procedure Only [...] Robert Weber DO [address] [place] [address] [facility] [address] [place] [address] Referral ID Status Reason Start Date Expiration Date Visits Requested Visits Authorized [id number] Authorized Auto-Generat ed Referral 04/01/2022 05/01/2023 1 1 * Outpatient Procedure (Routine) - Authorized Specialty Diagnoses / Procedures Referred By Jessica monique [facility] Diagnoses Fever, unspecified fever cause Leg swelling Procedures US LEG VEIN DVT EMERITA VAS LAB DUP-SCAN XTR VEINS COMPLETE BILATERAL STUDY Robert Weber DO [address] [place] [address] [facility] [address] [place] [address] Referral ID Status Reason Start Date Expiration Date Visits Requested Visits Authorized [id number] Authorized Auto-Generat ed Referral 04/01/2022 04/01/2023 1 1 [facility] for referral (narrative)* Diagnostic Procedure Only (Routine) - Authorized Specialty Diagnoses / Procedures Referred By Jessica monique Referred To Contact [facility] Diagnoses Personal history of malignant neoplasm of breast Encounter for screening mammogram for high-risk patient Procedures DESIREE SCREENING W MIC SCREENING DIGITAL BREAST TOMOSYNTHESIS BI SCREENING MAMMOGRAPHY BI 2-VIEW BREAST INC Deyanira Morris APRN.FINAL CLEANER [address] [place] [address] [facility] [address] [place] [address] Referral ID Status Reason Start Date Expiration Date Visits Requested Visits Authorized [id number] Authorized Auto-Generat ed Referral 11/21/2022 12/21/2023 1 1 [facility] for referral (narrative)* Diagnostic Procedure Only (Routine) - Closed Specialty Diagnoses / Procedures Referred By Contac t Referred To Contact [facility] Diagnoses Encounter for screening mammogram for malignant neoplasm of breast Procedures DESIREE SCREENING W MIC SCREENING BREAST DGTL MIC UNI/BILAT ADD ON SCREENING MAMMOGRAPHY BI 2-VIEW BREAST INC CAD Prisca Rivera MD [address] [place] [address] [facility] [address] [place] [id number] Referral ID Status Reason Start Date Expiration Date V isits Requested Visits Authorized [id number] Closed Auto-Generate d Referral 01/28/2021 02/27/2022 1 1 [facility] for referral (narrative)* Diagnostic Procedure Only [...] Robert Weber DO [address] [place] [address] [facility] [address] [place], [place] [id number] Referral ID Status Reason Start Date Expiration Date V isits Requested Visits Authorized [id number] Closed Auto-Generate d Referral 04/01/2022 05/01/2023 1 1 [facility] for referral (narrative)* Diagnostic Procedure Only (Routine) - Authorized Specialty Diagnoses / Procedures Referred By Jesscia moniqeu Referred To Contact [facility] Diagnoses Encounter for screening mammogram for malignant neoplasm of breast Procedures DESIREE SCREENING W MIC SCREENING DIGITAL BREAST TOMOSYNTHESIS BI SCREENING MAMMOGRAPHY BI 2-VIEW BREAST INC CAD Prisca Rivera MD [address] [place] [address] [facility] [address] [place], [place] [phone] Referral ID Status Reason Start Date Expiration Date Visits Requested Visits Authorized [id number] Authorized Auto-Generat ed Referral 02/11/2025 1 1 [facility] for referral (narrative)No reason for referral information [facility] N[facility]* Diagnostic Procedure Only (Routine) - Closed Specialty Diagnoses / Procedures Referred By Jessica monique Referred To Contact [facility] Diagnoses Encounter for screening mammogram for malignant neoplasm of breast Procedures DESIREE SCREENING W MIC SCREENING BREAST DGTL MIC UNI/BILAT ADD ON SCREENING MAMMOGRAPHY BI 2-VIEW BREAST INC CAD Prisca Rivera MD [address] [place] [address] [facility] [address] [place] [phone] Referral ID Status Reason Start Date Expiration Date V isits Requested Visits Authorized [id number] Closed Auto-Generate d Referral 01/28/2021 02/27/2022 1 1 [facility] for visit Narrative* Diagnostic Procedure Only [...] BODY Robert Weber DO [address] [place] [address] [facility] [address] [place] [address] Referral ID Status Reason Start Date Expiration Date V isits Requested Visits Authorized [id number] Closed Auto-Generate d Referral 04/01/2022 05/01/2023 1 1 [facility] for visit Narrative* Diagnostic Procedure Only (Routine) - Closed Specialty Diagnoses / Procedures Referred By Contac t Referred To Contact [facility] Diagnoses Personal history of malignant neoplasm of breast Encounter for screening mammogram for high-risk patient Procedures DESIREE SCREENING W MIC SCREENING DIGITAL BREAST TOMOSYNTHESIS BI SCREENING MAMMOGRAPHY BI 2-VIEW BREAST INC CAD Deyanira Mendez APRN.LUPE [address] [place] [address] [facility] [address] [place] [address] Referral ID Status Reason Start Date Expiration Date V isits Requested Visits Authorized [id number] Closed Auto-Generate d Referral 11/21/2022 12/21/2023 1 1 [facility] for visit Narrative* Diagnostic Procedure Only (Routine) - Closed Specialty Diagnoses / Procedures Referred By Jessica t Referred To Contact [facility] Diagnoses Encounter for screening mammogram for malignant neoplasm of breast Procedures DESIREE SCREENING W MIC SCREENING DIGITAL BREAST TOMOSYNTHESIS BI SCREENING MAMMOGRAPHY BI 2-VIEW BREAST INC CAD Prisca Rivera MD [address] [place] [address] [facility] [address] [place] [address] Referral ID Status Reason Start Date Expiration Date V isits Requested Visits Authorized [id number] Closed Auto-Generate d Referral 01/13/2024 02/11/2025 1 1 [facility] Chief Complaint and Reason for Visit Chief Complaint F/U RECLAST IRREGULAR BLOOD WORK Reason for Visit Osteoporosis Hyperparathyroidism Paresthesia Osteoporosis Chief Complaint RECLAST IRREGULAR BLOOD WORK RADICULAPATHY RADICULAPATHY HTN Reason for Visit Hyperparathyroidism Paresthesia Osteoporosis Chief Complaint IRREGULAR BLOOD WORK RADICULAPATHY RADICULAPATHY HTN CERVICAL SPINE xray parasthesia Cervical spine Reason for Visit Hyperparathyroidism Paresthesia Osteoporosis Arthritis Back pain Neck pain Paresthesia Degenerative disc disease, cervical Chief Complaint 1 Y FU E ORDERS Reason for Visit Hyperparathyroidism Osteoporosis Chief Complaint 1 Y FU E ORDERS RECLAST FEVER Reason for Visit Hyperparathyroidism Osteoporosis Chief Complaint LUMBAR SPINE RM 3 1 Y FU Other cervical disc degeneration, unspecified cerv Reason for Visit Degenerative disc di sease, cervical Foraminal stenosis of cervical region Hyperparathyroidism Menopausal hot flushes Osteoporosis Symptoms of gastroesophageal reflux Chief Complaint LUMBAR SPINE RM 3 1 Y FU Other cervical disc degeneration, unspecified cerv SINUS INFECTION? RECLAST Reason for Visit Degenerative disc di sease, cervical Foraminal stenosis of cervical region Hyperparathyroidism Menopausal hot flushes Osteoporosis Symptoms of gastroesophageal reflux Chief Complaint LUMBAR SPINE RM 3 1 Y FU Other cervical disc degeneration, unspecified cerv SINUS INFECTION? RECLAST CERVICAL SPINE THORACIC RAD Reason for Visit Degenerative disc di sease, cervical Foraminal stenosis of cervical region Hyperparathyroidism Menopausal hot flushes Osteoporosis Symptoms of gastroesophageal reflux Degenerative disc disease, cervical Foraminal stenosis of cervical region Chief Complaint Other cervical disc degeneration, unspecified cerv SINUS INFECTION? RECLAST CERVICAL SPINE THORACIC RAD EST (SELF) HTN Reason for Visit Degenerative disc di sease, cervical Foraminal stenosis of cervical region Heart palpitations Chief Complaint SINUS INFECTION? RECLAST CERVICAL SPINE THORACIC RAD EST (SELF) HTN PALP Reason for Visit Degenerative disc di sease, cervical Foraminal stenosis of cervical region Heart palpitations Chief Complaint Admit Date THYROID NODULE January 14, 2024 2:46pm 1 Y FU February 19, 2024 3:03pm HEAD CONGESTION, SORE THROAT February 1:02pm back March 12, 2024 8 :44pm CERVICAL SPINE March 22, 2024 2 :16pm RM 2 March 22, 2024 2 :54pm Pain March 30, 2024 1 2:25pm CHRONIC BURNING PAIN IN CHEST AND ARMS F ebruary 2024 8:56am EORDER April 04, 2024 11:26am RECLAST April 05, 2024 9:31am FEVER/BA/VICKY/COUGH April 12, 2024 11:52am SYNCOPE April 12, 2024 1:21pm BACK April 16, 2024 5:02pm General illness April 18, 2024 12:13pm Reason for Visit Admit Date Osteoporosis February 19, 2024 3:03pm URI (upper respiratory infection) Januar y 2024 1:02pm Cervical radiculopathy March 22 2:16pm Degenerative disc disease, cervical Conor angie 2024 2:16pm Arthritis April 04, 2024 8:56am Burning mouth syndrome April 04 8:56am Fatigue April 04, 2024 8:56am Fibromyalgia April 04, 2024 8:56am Low back pain April 04, 2024 8:56am Neck pain April 04, 2024 8:56am Polyneuropathy April 04, 2024 8:56am Episode of syncope April 12, 2024 11:52am Influenza B April 12, 2024 11:52am Chief Complaint Admit Date 1 Y FU February 19, 2024 3:03pm HEAD CONGESTION, SORE THROAT February 1:02pm back March 12, 2024 8 :44pm CERVICAL SPINE March 22, 2024 2 :16pm RM 2 March 22, 2024 2 :54pm Pain March 30, 2024 1 2:25pm CHRONIC BURNING PAIN IN CHEST AND ARMS F ebruary 2024 8:56am EORDER April 04, 2024 11:26am RECLAST April 05, 2024 9:31am FEVER/BA/VICKY/COUGH April 12, 2024 11:52am SYNCOPE April 12, 2024 1:21pm BACK April 16, 2024 5:02pm General illness April 18, 2024 12:13pm CERVICAL SPINE May 02, 2024 9:2 5am B12 inject May 10, 2024 10: 33am BUE; Paresthesias; neck pain May 11, 2024 12:30pm BUE; Paresthesias; neck pain May 11, 2024 2:20pm BLE; Paresthesias; numbness in feet Zana h 2024 12:04pm BLE; Paresthesias; numbness in feet Zana h 2024 1:25pm Reason for Visit Admit Date Osteoporosis February 19, 2024 3:03pm URI (upper respiratory infection) Januar y 2024 1:02pm Cervical radiculopathy March 22 2:16pm Degenerative disc disease, cervical Conor angie 2024 2:16pm Arthritis April 04, 2024 8:56am Burning mouth syndrome April 04 8:56am Fatigue April 04, 2024 8:56am Fibromyalgia April 04, 2024 8:56am Low back pain April 04, 2024 8:56am Neck pain April 04, 2024 8:56am Polyneuropathy April 04, 2024 8:56am Episode of syncope April 12, 2024 11:52am Influenza B April 12, 2024 11:52am Cervical radiculopathy May 02, 2024 9:25am Fatigue May 10, 2024 10: 33am Chief Complaint Admit Date back March 12, 2024 8 :44pm CERVICAL SPINE March 22, 2024 2 :16pm RM 2 March 22, 2024 2 :54pm Pain March 30, 2024 1 2:25pm CHRONIC BURNING PAIN IN CHEST AND ARMS F ebruary 2024 8:56am EORDER April 04, 2024 11:26am RECLAST April 05, 2024 9:31am FEVER/BA/VICKY/COUGH April 12, 2024 11:52am SYNCOPE April 12, 2024 1:21pm BACK April 16, 2024 5:02pm General illness April 18, 2024 12:13pm CERVICAL SPINE May 02, 2024 9:2 5am B12 inject May 10, 2024 10: 33am BUE; Paresthesias; neck pain May 11, 2024 12:30pm BUE; Paresthesias; neck pain May 11, 2024 2:20pm BLE; Paresthesias; numbness in feet Zana h 2024 12:04pm BLE; Paresthesias; numbness in feet Zana h 2024 1:25pm B12 inject June 09, 2024 1:0 6pm RIGHT KNEE June 24, 2024 9:26am 3 M FU June 30, 2024 11:27a m E-ORDER June 30, 2024 12:30p m Reason for Visit Admit Date Cervical radiculopathy March 22 2:16pm Degenerative disc disease, cervical Conor angie 2024 2:16pm Arthritis April 04, 2024 8:56am Burning mouth syndrome April 04 8:56am Fatigue April 04, 2024 8:56am Fibromyalgia April 04, 2024 8:56am Low back pain April 04, 2024 8:56am Neck pain April 04, 2024 8:56am Polyneuropathy April 04, 2024 8:56am Episode of syncope April 12, 2024 11:52am Influenza B April 12, 2024 11:52am Cervical radiculopathy May 02, 2024 9:25am Fatigue May 10, 2024 10: 33am Fatigue June 09, 2024 1:0 6pm Osteoarthritis of right knee June 24 9:26am Arthritis June 30, 2024 11:27a m Burning mouth syndrome June 30, 2024 11: 27am Dry mouth June 30, 2024 11:27a m Fatigue June 30, 2024 11:27a m Fibromyalgia June 30, 2024 11:27a m Neck pain June 30, 2024 11:27a m Polyneuropathy June 30, 2024 11:27a m Chief Complaint Admit Date Pain March 30, 2024 1 2:25pm CHRONIC BURNING PAIN IN CHEST AND ARMS F ebruary 2024 8:56am EORDER April 04, 2024 11:26am RECLAST April 05, 2024 9:31am FEVER/BA/VICKY/COUGH April 12, 2024 11:52am SYNCOPE April 12, 2024 1:21pm BACK April 16, 2024 5:02pm General illness April 18, 2024 12:13pm CERVICAL SPINE May 02, 2024 9:2 5am B12 inject May 10, 2024 10: 33am BUE; Paresthesias; neck pain May 11, 2024 12:30pm BUE; Paresthesias; neck pain May 11, 2024 2:20pm BLE; Paresthesias; numbness in feet Zana h 2024 12:04pm BLE; Paresthesias; numbness in feet Zana h 2024 1:25pm B12 inject June 09, 2024 1:0 6pm RIGHT KNEE June 24, 2024 9:26am 3 M FU June 30, 2024 11:27a m E-ORDER June 30, 2024 12:30p m RIGHT KNEE July 13, 2024 10:27 am B12 inject July 14, 2024 10:38 am RIGHT KNEE July 22, 2024 11:12 am Reason for Visit Admit Date Arthritis April 04, 2024 8:56am Burning mouth syndrome April 04 8:56am Fatigue April 04, 2024 8:56am Fibromyalgia April 04, 2024 8:56am Low back pain April 04, 2024 8:56am Neck pain April 04, 2024 8:56am Polyneuropathy April 04, 2024 8:56am Episode of syncope April 12, 2024 11:52am Influenza B April 12, 2024 11:52am Cervical radiculopathy May 02, 2024 9:25am Fatigue May 10, 2024 10: 33am Fatigue June 09, 2024 1:0 6pm Osteoarthritis of right knee June 24 9:26am Arthritis June 30, 2024 11:27a m Burning mouth syndrome June 30, 2024 11: 27am Dry mouth June 30, 2024 11:27a m Fatigue June 30, 2024 11:27a m Fibromyalgia June 30, 2024 11:27a m Neck pain June 30, 2024 11:27a m Polyneuropathy June 30, 2024 11:27a m Osteoarthritis of right knee July 13, 025 10:27am Fatigue July 14, 2024 10:38 am Chief Complaint Admit Date CERVICAL SPINE March 22, 2024 2 :16pm RM 2 March 22, 2024 2 :54pm Pain March 30, 2024 1 2:25pm CHRONIC BURNING PAIN IN CHEST AND ARMS F ebruary 2024 8:56am EORDER April 04, 2024 11:26am RECLAST April 05, 2024 9:31am FEVER/BA/VICKY/COUGH April 12, 2024 11:52am SYNCOPE April 12, 2024 1:21pm BACK April 16, 2024 5:02pm General illness April 18, 2024 12:13pm CERVICAL SPINE May 02, 2024 9:2 5am B12 inject May 10, 2024 10: 33am BUE; Paresthesias; neck pain May 11, 2024 12:30pm BUE; Paresthesias; neck pain May 11, 2024 2:20pm BLE; Paresthesias; numbness in feet Zana h 2024 12:04pm BLE; Paresthesias; numbness in feet Zana h 2024 1:25pm B12 inject June 09, 2024 1:0 6pm RIGHT KNEE June 24, 2024 9:26am 3 M FU June 30, 2024 11:27a m E-ORDER June 30, 2024 12:30p m RIGHT KNEE July 13, 2024 10:27 am Reason for Visit Admit Date Cervical radiculopathy March 22 2:16pm Degenerative disc disease, cervical Conor angie 2024 2:16pm Arthritis April 04, 2024 8:56am Burning mouth syndrome April 04 8:56am Fatigue April 04, 2024 8:56am Fibromyalgia April 04, 2024 8:56am Low back pain April 04, 2024 8:56am Neck pain April 04, 2024 8:56am Polyneuropathy April 04, 2024 8:56am Episode of syncope April 12, 2024 11:52am Influenza B April 12, 2024 11:52am Cervical radiculopathy May 02, 2024 9:25am Fatigue May 10, 2024 10: 33am Fatigue June 09, 2024 1:0 6pm Osteoarthritis of right knee June 24 9:26am Arthritis June 30, 2024 11:27a m Burning mouth syndrome June 30, 2024 11: 27am Dry mouth June 30, 2024 11:27a m Fatigue June 30, 2024 11:27a m Fibromyalgia June 30, 2024 11:27a m Neck pain June 30, 2024 11:27a m Polyneuropathy June 30, 2024 11:27a m Osteoarthritis of right knee July 13, 2 025 10:27am Chief Complaint Admit Date CHRONIC BURNING PAIN IN CHEST AND ARMS F ebruary 2024 8:56am EORDER April 04, 2024 11:26am RECLAST April 05, 2024 9:31am FEVER/BA/VICKY/COUGH April 12, 2024 11:52am SYNCOPE April 12, 2024 1:21pm BACK April 16, 2024 5:02pm General illness April 18, 2024 12:13pm CERVICAL SPINE May 02, 2024 9:2 5am B12 inject May 10, 2024 10: 33am BUE; Paresthesias; neck pain May 11, 2024 12:30pm BUE; Paresthesias; neck pain May 11, 2024 2:20pm BLE; Paresthesias; numbness in feet Zana h 2024 12:04pm BLE; Paresthesias; numbness in feet Zana h 2024 1:25pm B12 inject June 09, 2024 1:0 6pm RIGHT KNEE June 24, 2024 9:26am 3 M FU June 30, 2024 11:27a m E-ORDER June 30, 2024 12:30p m RIGHT KNEE July 13, 2024 10:27 am B12 inject July 14, 2024 10:38 am RIGHT KNEE July 22, 2024 11:12 am RIGHT KNEE July 29, 2024 11:07 am Reason for Visit Admit Date Arthritis April 04, 2024 8:56am Burning mouth syndrome April 04 8:56am Fatigue April 04, 2024 8:56am Fibromyalgia April 04, 2024 8:56am Low back pain April 04, 2024 8:56am Neck pain April 04, 2024 8:56am Polyneuropathy April 04, 2024 8:56am Episode of syncope April 12, 2024 11:52am Influenza B April 12, 2024 11:52am Cervical radiculopathy May 02, 2024 9:25am Fatigue May 10, 2024 10: 33am Fatigue June 09, 2024 1:0 6pm Osteoarthritis of right knee June 24 9:26am Arthritis June 30, 2024 11:27a m Burning mouth syndrome June 30, 2024 11: 27am Dry mouth June 30, 2024 11:27a m Fatigue June 30, 2024 11:27a m Fibromyalgia June 30, 2024 11:27a m Neck pain June 30, 2024 11:27a m Polyneuropathy June 30, 2024 11:27a m Osteoarthritis of right knee July 13, 025 10:27am Fatigue July 14, 2024 10:38 am Osteoarthritis of right knee July 22, 025 11:12am Osteoarthritis of right knee July 29 025 11:07am Family History No Family History Records Found Relationship Condition Age at Onset Recorded Date/T oxana father Cardiac disease Unknown mother Cardiac disease Unknown Osteoporosis Unknown Disorder of thyroid Unknown brother Cardiac disease Unknown Hypertension Unknown Hypercholesterolemia Unknown daughter Malignant neoplasm Unknown sister Arthritis Unknown Advance Directives No Advanced Directives Records Found Advance Directive Response Recorded Date/ Time Living Will Yes October 01, 2013 4:16pm Power of Aircraft Ordnance Technician Yes October 01 4:16pm Advance Directive Response Recorded Date/ Time Living Will No June 10, 2021 7:08pm Power of Aircraft Ordnance Technician No June 10 7:08pm Advance Directive Response Recorded Date/ Time Living Will No June 10, 2021 6:08pm Power of Aircraft Ordnance Technician No June 10 6:08pm Advance Directive Response Recorded Date/ Time Living Will No March 09 10:37am Power of Aircraft Ordnance Technician No March 09, 2023 10:37am Advance Directive Response Recorded Date/ Time Living Will No March 09 11:37am Power of Aircraft Ordnance Technician No March 09, 2023 11:37am Advance Directive Response Recorded Date/ Time Living Will No June 10, 2021 6:08pm Power of Aircraft Ordnance Technician No June 10 6:08pm Living Will No April 12 3:31pm Power of Aircraft Ordnance Technician No April 12, 2024 3:31pm Living Will Yes April 18 12:37pm Power of Aircraft Ordnance Technician Yes April 18, 2024 12:37pm Name of Medical Power of Aircraft Ordnance Technician [place] April 18, 2024 12:37pm Living Will Yes March 12 9:08pm Power of Aircraft Ordnance Technician Yes March 12, 2024 9:08pm Name of Medical Power of Aircraft Ordnance Technician Devaughn Sargent, son March 12, 2024 9:08pm Living Will No April 16 5:21pm Power of Aircraft Ordnance Technician No April 16, 2024 5:21pm Advance Directive Response Recorded Date/ Time Living Will No June 10, 2021 7:08pm Do you have a Healthcare Pow er of Aircraft Ordnance Technician? No June 10, 2021 7:08pm Living Will No April 12 4:31pm Do you have a Healthcare Pow er of Aircraft Ordnance Technician? No April 12, 2024 4:31pm Living Will Yes April 18 1:37pm Do you have a Healthcare Pow er of Aircraft Ordnance Technician? Yes April 18, 2024 1:37pm Name of Medical Power of Aircraft Ordnance Technician [place] April 18, 2024 1:37pm Living Will Yes March 12 10:08pm Do you have a Healthcare Pow er of Aircraft Ordnance Technician? Yes March 12, 2024 10:08pm Name of Medical Power of Aircraft Ordnance Technician Devaughn Sargent, son March 12, 2024 10:08pm Living Will No April 16 6:21pm Do you have a Healthcare Pow er of Aircraft Ordnance Technician? No April 16, 2024 6:21pm Advance Directive Response Recorded Date/ Time Living Will No April 12 4:31pm Do you have a Healthcare Pow er of Aircraft Ordnance Technician? No April 12, 2024 4:31pm Living Will Yes April 18 1:37pm Do you have a Healthcare Pow er of Aircraft Ordnance Technician? Yes April 18, 2024 1:37pm Name of Medical Power of Aircraft Ordnance Technician [place] April 18, 2024 1:37pm Living Will Yes March 12 10:08pm Do you have a Healthcare Pow er of Aircraft Ordnance Technician? Yes March 12, 2024 10:08pm Name of Medical Power of Aircraft Ordnance Technician Devaughn Sargent, son March 12, 2024 10:08pm Living Will No April 16 6:21pm Do you have a Healthcare Pow er of Aircraft Ordnance Technician? No April 16, 2024 6:21pm Advance Directive Response Recorded Date/ Time Living Will No April 12 4:31pm Do you have a Healthcare Power of Aircraft Ordnance Technician? No April 12, 2024 4:31pm Living Will Yes April 18 1:37pm Do you have a Healthcare Power of Aircraft Ordnance Technician? Yes April 18, 2024 1:37pm Name of Medical Power of Aircraft Ordnance Technician [place] April 18, 2024 1:37pm Living Will No April 16 6:21pm Do you have a Healthcare Power of Aircraft Ordnance Technician? No April 16, 2024 6:21pm Health Concerns Infection Onset Date Last Indicated Resolved Time COVID-19 Rule-Out 06/01/2021 06/01/2021 Summary Purpose Additional Source Comments Goals (unrecognized section and content) Goals may be documented in a n alternate section Source Comments (unrecognize d section and content) In the event this informatio n is protected by the Federal Confidentiality of Alcohol and Drug Abuse Patient Records regulations: The Federal rules restrict any use of the information to criminally investigate or prosecute any alcohol or drug abuse patient.[facility] the event this information is protected by the Federal Confidentiality of Alcohol and Drug Abuse Patient Records regulations: The Federal rules restrict any use of the information to criminally investigate or prosecute any alcohol or drug abuse patient.[facility] the event this information is protected by the Federal Confidentiality of Alcohol and Drug Abuse Patient Records regulations: The Federal rules restrict any use of the information to criminally investigate or prosecute any alcohol or drug abuse patient.[facility] HospitalIn the event this information is protected by the Federal Confidentiality of Alcohol and Drug Abuse Patient Records regulations: The Federal rules restrict any use of the information to criminally investigate or prosecute any alcohol or drug abuse patient.[facility] HospitalIn the event this information is protected by the Federal Confidentiality of Alcohol and Drug Abuse Patient Records regulations: The Federal rules restrict any use of the information to criminally investigate or prosecute any alcohol or drug abuse patient.[facility] HospitalIn the event this information is protected by the Federal Confidentiality of Alcohol and Drug Abuse Patient Records regulations: The Federal rules restrict any use of the information to criminally investigate or prosecute any alcohol or drug abuse patient.[facility] HospitalIn the event this information is protected by the Federal Confidentiality of Alcohol and Drug Abuse Patient Records regulations: The Federal rules restrict any use of the information to criminally investigate or prosecute any alcohol or drug abuse patient.[facility] HospitalIn the event this information is protected by the Federal Confidentiality of Alcohol and Drug Abuse Patient Records regulations: The Federal rules restrict any use of the information to criminally investigate or prosecute any alcohol or drug abuse patient.[facility] HospitalIn the event this information is protected by the Federal Confidentiality of Alcohol and Drug Abuse Patient Records regulations: The Federal rules restrict any use of the information to criminally investigate or prosecute any alcohol or drug abuse patient.[facility] HospitalIn the event this information is protected by the Federal Confidentiality of Alcohol and Drug Abuse Patient Records regulations: The Federal rules restrict any use of the information to criminally investigate or prosecute any alcohol or drug abuse patient.[facility] HospitalIn the event this information is protected by the Federal Confidentiality of Alcohol and Drug Abuse Patient Records regulations: The Federal rules restrict any use of the information to criminally investigate or prosecute any alcohol or drug abuse patient.[facility] HospitalIn the event this information is protected by the Federal Confidentiality of Alcohol and Drug Abuse Patient Records regulations: The Federal rules restrict any use of the information to criminally investigate or prosecute any alcohol or drug abuse patient.[facility] HospitalIn the event this information is protected by the Federal Confidentiality of Alcohol and Drug Abuse Patient Records regulations: The Federal rules restrict any use of the information to criminally investigate or prosecute any alcohol or drug abuse patient.[facility] HospitalIn the event this information is protected by the Federal Confidentiality of Alcohol and Drug Abuse Patient Records regulations: The Federal rules restrict any use of the information to criminally investigate or prosecute any alcohol or drug abuse patient.[facility] HospitalIn the event this information is protected by the Federal Confidentiality of Alcohol and Drug Abuse Patient Records regulations: The Federal rules restrict any use of the information to criminally investigate or prosecute any alcohol or drug abuse patient.[facility] HospitalIn the event this information is protected by the Federal Confidentiality of Alcohol and Drug Abuse Patient Records regulations: The Federal rules restrict any use of the information to criminally investigate or prosecute any alcohol or drug abuse patient.[facility] HospitalIn the event this information is protected by the Federal Confidentiality of Alcohol and Drug Abuse Patient Records regulations: The Federal rules restrict any use of the information to criminally investigate or prosecute any alcohol or drug abuse patient.[facility] HospitalIn the event this information is protected by the Federal Confidentiality of Alcohol and Drug Abuse Patient Records regulations: The Federal rules restrict any use of the information to criminally investigate or prosecute any alcohol or drug abuse patient.[facility] HospitalIn the event this information is protected by the Federal Confidentiality of Alcohol and Drug Abuse Patient Records regulations: The Federal rules restrict any use of the information to criminally investigate or prosecute any alcohol or drug abuse patient.[facility] HospitalIn the event this information is protected by the Federal Confidentiality of Alcohol and Drug Abuse Patient Records regulations: The Federal rules restrict any use of the information to criminally investigate or prosecute any alcohol or drug abuse patient.[facility] HospitalIn the event this information is protected by the Federal Confidentiality of Alcohol and Drug Abuse Patient Records regulations: The Federal rules restrict any use of the information to criminally investigate or prosecute any alcohol or drug abuse patient.[facility] HospitalIn the event this information is protected by the Federal Confidentiality of Alcohol and Drug Abuse Patient Records regulations: The Federal rules restrict any use of the information to criminally investigate or prosecute any alcohol or drug abuse patient.[facility] HospitalIn the event this information is protected by the Federal Confidentiality of Alcohol and Drug Abuse Patient Records regulations: The Federal rules restrict any use of the information to criminally investigate or prosecute any alcohol or drug abuse patient.[facility] HospitalIn the event this information is protected by the Federal Confidentiality of Alcohol and Drug Abuse Patient Records regulations: The Federal rules restrict any use of the information to criminally investigate or prosecute any alcohol or drug abuse patient.[facility] HospitalIn the event this information is protected by the Federal Confidentiality of Alcohol and Drug Abuse Patient Records regulations: The Federal rules restrict any use of the information to criminally investigate or prosecute any alcohol or drug abuse patient.[facility] HospitalIn the event this information is protected by the Federal Confidentiality of Alcohol and Drug Abuse Patient Records regulations: The Federal rules restrict any use of the information to criminally investigate or prosecute any alcohol or drug abuse patient.[facility] HospitalIn the event this information is protected by the Federal Confidentiality of Alcohol and Drug Abuse Patient Records regulations: The Federal rules restrict any use of the information to criminally investigate or prosecute any alcohol or drug abuse patient.[facility] HospitalIn the event this information is protected by the Federal Confidentiality of Alcohol and Drug Abuse Patient Records regulations: The Federal rules restrict any use of the information to criminally investigate or prosecute any alcohol or drug abuse patient.[facility] HospitalIn the event this information is protected by the Federal Confidentiality of Alcohol and Drug Abuse Patient Records regulations: The Federal rules restrict any use of the information to criminally investigate or prosecute any alcohol or drug abuse patient.[facility] HospitalIn the event this information is protected by the Federal Confidentiality of Alcohol and Drug Abuse Patient Records regulations: The Federal rules restrict any use of the information to criminally investigate or prosecute any alcohol or drug abuse patient.[facility] HospitalIn the event this information is protected by the Federal Confidentiality of Alcohol and Drug Abuse Patient Records regulations: The Federal rules restrict any use of the information to criminally investigate or prosecute any alcohol or drug abuse patient.[facility] HospitalIn the event this information is protected by the Federal Confidentiality of Alcohol and Drug Abuse Patient Records regulations: The Federal rules restrict any use of the information to criminally investigate or prosecute any alcohol or drug abuse patient.[facility] HospitalIn the event this information is protected by the Federal Confidentiality of Alcohol and Drug Abuse Patient Records regulations: The Federal rules restrict any use of the information to criminally investigate or prosecute any alcohol or drug abuse patient.[facility] HospitalIn the event this information is protected by the Federal Confidentiality of Alcohol and Drug Abuse Patient Records regulations: The Federal rules restrict any use of the information to criminally investigate or prosecute any alcohol or drug abuse patient.[facility] HospitalIn the event this information is protected by the Federal Confidentiality of Alcohol and Drug Abuse Patient Records regulations: The Federal rules restrict any use of the information to criminally investigate or prosecute any alcohol or drug abuse patient.[facility] HospitalIn the event this information is protected by the Federal Confidentiality of Alcohol and Drug Abuse Patient Records regulations: The Federal rules restrict any use of the information to criminally investigate or prosecute any alcohol or drug abuse patient.[facility] HospitalIn the event this information is protected by the Federal Confidentiality of Alcohol and Drug Abuse Patient Records regulations: The Federal rules restrict any use of the information to criminally investigate or prosecute any alcohol or drug abuse patient.[facility] HospitalIn the event this information is protected by the Federal Confidentiality of Alcohol and Drug Abuse Patient Records regulations: The Federal rules restrict any use of the information to criminally investigate or prosecute any alcohol or drug abuse patient.[facility] HospitalIn the event this information is protected by the Federal Confidentiality of Alcohol and Drug Abuse Patient Records regulations: The Federal rules restrict any use of the information to criminally investigate or prosecute any alcohol or drug abuse patient.[facility] HospitalIn the event this information is protected by the Federal Confidentiality of Alcohol and Drug Abuse Patient Records regulations: The Federal rules restrict any use of the information to criminally investigate or prosecute any alcohol or drug abuse patient.[facility] HospitalIn the event this information is protected by the Federal Confidentiality of Alcohol and Drug Abuse Patient Records regulations: The Federal rules restrict any use of the information to criminally investigate or prosecute any alcohol or drug abuse patient.[facility] HospitalIn the event this information is protected by the Federal Confidentiality of Alcohol and Drug Abuse Patient Records regulations: The Federal rules restrict any use of the information to criminally investigate or prosecute any alcohol or drug abuse patient.[facility] HospitalIn the event this information is protected by the Federal Confidentiality of Alcohol and Drug Abuse Patient Records regulations: The Federal rules restrict any use of the information to criminally investigate or prosecute any alcohol or drug abuse patient.[facility] Reason for Visit (unrecogniz ed section and content) Reason Comments Fever fatigue x 2 days Reason Comments Radiology CT Reason Comments Patient [...] Comments Radiology [place] Reason Comments Radiology [place] Reason Comments problem visit Reason Comments Orders Reason Comments Patient Update Reason Comments disk request Reason Comments New Patient Care Teams (unrecognized sec tion and content) Apprentice Cosmetologist Relationship Specialty Start Date End Date Angel Fuller MD [address] [place] [address] PCP - General Internal Medicine 05/06/18 Yue Bravo MD, [address] [place] [place], [place] [id number] Physician Radiation Oncology 03/06/16 Apprentice Cosmetologist Relationship Specialty Start Date End Date Angel Fuller MD [address] [place] [address] PCP - General Internal Medicine 05/06/18 Yue Bravo MD, [address] [place], [place] [address] Physician Radiation Oncology 03/06/16 Apprentice Cosmetologist Relationship Specialty Start Date End Date Angel Fuller MD [address] [place] [address] PCP - General Internal Medicine 05/06/18 Yue Bravo MD, [address] [place] [address] Physician Radiation Oncology 03/06/16 Apprentice Cosmetologist Relationship Specialty Start Date End Date Angel Fuller MD [address] [place] [address] PCP - General Internal Medicine 05/06/18 Yue Bravo MD, [address] [place] [address] Physician Radiation Oncology 03/06/16 Apprentice Cosmetologist Relationship Specialty Start Date End Date Angel Fuller MD [address] [place] [address] PCP - General Internal Medicine 05/06/18 Yue Bravo MD, [address] [place] [address] Physician Radiation Oncology 03/06/16 Apprentice Cosmetologist Relationship Specialty Start Date End Date Angel Fuller MD [address] [place] [address] PCP - General Internal Medicine 05/06/18 Yue Bravo MD, [address] [place] [address] Physician Radiation Oncology 03/06/16 Apprentice Cosmetologist Relationship Specialty Start Date End Date Angel Fuller MD [address] [place] [address] PCP - General Internal Medicine 05/06/18 Yue Bravo MD, [address] [place] [address] Physician Radiation Oncology 03/06/16 Apprentice Cosmetologist Relationship Specialty Start Date End Date Angel Fuller MD [address] [place] [address] PCP - General Internal Medicine 05/06/18 Yue Bravo MD, [address] [place] [address] Physician Radiation Oncology 03/06/16 Apprentice Cosmetologist Relationship Specialty Start Date End Date Angel Fuller MD [address] [place] [address] PCP - General Internal Medicine 05/06/18 Yue Bravo MD, [address] [place] [address] Physician Radiation Oncology 03/06/16 Deyanira Mendez, HUMAN RESOURCES COMPENSATION ANALYST.FINAL CLEANER [address] [place] [address] Hematology/Oncology 03/20/22 Apprentice Cosmetologist Relationship Specialty Start Date End Date Angel Fuller MD [address] [place] [address] PCP - General Internal Medicine 05/06/18 Yue Bravo MD, [address] [place] [address] Physician Radiation Oncology 03/06/16 Deyanira Mendez, HUMAN RESOURCES COMPENSATION ANALYST.FINAL CLEANER [address] [place] [address] Hematology/Oncology 03/20/22 Apprentice Cosmetologist Relationship Specialty Start Date End Date Angel Fuller MD [address] [place] [address] PCP - General Internal Medicine 05/06/18 Yue Bravo MD, [address] [place] [address] Physician Radiation Oncology 03/06/16 Deyanira Mendez, HUMAN RESOURCES COMPENSATION ANALYST.FINAL CLEANER [address] [place] [address] Hematology/Oncology 03/20/22 Apprentice Cosmetologist Relationship Specialty Start Date End Date Angel Fuller MD [address] [place] [address] PCP - General Internal Medicine 05/06/18 Yue Bravo MD, [address] [place] [address] Physician Radiation Oncology 03/06/16 Deyanira Mendez, HUMAN RESOURCES COMPENSATION ANALYST.FINAL CLEANER [address] [place] [address] Hematology/Oncology 03/20/22 Apprentice Cosmetologist Relationship Specialty Start Date End Date Angel Fuller MD [address] [place] [address] PCP - General Internal Medicine 05/06/18 Yue Bravo MD, [address] [place] [address] Physician Radiation Oncology 03/06/16 Deyanira Mendez, HUMAN RESOURCES COMPENSATION ANALYST.FINAL CLEANER [address] [place] [address] Hematology/Oncology 03/20/22 Apprentice Cosmetologist Relationship Specialty Start Date End Date Angel Fuller MD [address] [place] [address] PCP - General Internal Medicine 05/06/18 Yue Bravo MD, [address] [place] [address] Physician Radiation Oncology 03/06/16 Deyanira Mendez APRN.FINAL CLEANER [address] [place] [address] Hematology/Oncology 03/20/22 Irena Gonzalez LISW [address] [place] [address] Product/Device Technologist Hematology/Oncology 04/16/22 Apprentice Cosmetologist Relationship Specialty Start Date End Date Angel Fuller MD [address] [place] [address] PCP - General Internal Medicine 05/06/18 Yue Bravo MD, [address] [place] [address] Physician Radiation Oncology 03/06/16 Deyanira Mendez, ELENA.FINAL CLEANER [address] [place] [address] Hematology/Oncology 03/20/22 Irena Gonzalez LISW [address] [place] [address] Product/Device Technologist Hematology/Oncology 04/16/22 Apprentice Cosmetologist Relationship Specialty Start Date End Date Angel Fuller MD [address] [place] [address] PCP - General Internal Medicine 05/06/18 Yue Bravo MD, [address] [place] [address] Physician Radiation Oncology 03/06/16 Deyanira Mendez, ELENA.FINAL CLEANER [address] [place] [address] Hematology/Oncology 03/20/22 Irena Gonzalez LISW [address] [place] [address] Product/Device Technologist Hematology/Oncology 04/16/22 Apprentice Cosmetologist Relationship Specialty Start Date End Date Angel Fuller MD [address] [place] [address] PCP - General Internal Medicine 05/06/18 Yue Bravo MD, [address] [place] [address] Physician Radiation Oncology 03/06/16 Deyanira Mendez, HUMAN RESOURCES COMPENSATION ANALYST.FINAL CLEANER [address] [place] [address] Hematology/Oncology 03/20/22 Irena Gonzalze LISW [address] [place] [address] Product/Device Technologist Hematology/Oncology 04/16/22 Millie Pantoja MD [address] [place] [address] Infectious Diseases 05/21/22 Lorenzo Montana [address] [place] [address] Orthopedics 05/21/22 Apprentice Cosmetologist Relationship Specialty Start Date End Date Angel Fuller MD [address] [place] [address] PCP - General Internal Medicine 05/06/18 Yue rBavo MD, [address] [place] [address] Physician Radiation Oncology 03/06/16 Deyanira Mendez, HUMAN RESOURCES COMPENSATION ANALYST.FINAL CLEANER [address] [place] [address] Hematology/Oncology 03/20/22 Irena Gonzalez LISW [address] [place] [address] Product/Device Technologist Hematology/Oncology 04/16/22 Millie Pantoja MD [address] [place] [address] Infectious Diseases 05/21/22 Lorenzo Montana [address] [place] [address] Orthopedics 05/21/22 Millie Pantoja MD [address] [place] [address] Referring Infectious Diseases 06/19/22 Apprentice Cosmetologist Relationship Specialty Start Date End Date Angel Fuller MD [address] [place] [address] PCP - General Internal Medicine 05/06/18 Yue Bravo MD, [address] [place] [address] Physician Radiation Oncology 03/06/16 Deyanira Mendez APRN.FINAL CLEANER [address] [place] [address] Hematology/Oncology 03/20/22 Irena Gonzalez LISW [address] [place] [address] Product/Device Technologist Hematology/Oncology 04/16/22 Millie Pantoja MD [address] [place] [address] Infectious Diseases 05/21/22 Lorenzo Montana [address] [place] [address] Orthopedics 05/21/22 Millie Pantoja MD [address] [place] [address] Referring Infectious Diseases 06/19/22 Apprentice Cosmetologist Relationship Specialty Start Date End Date Angel Fuller MD [address] [place] [address] PCP - General Internal Medicine 05/06/18 Yue Bravo MD, [address] [place] [address] Physician Radiation Oncology 03/06/16 Deyanira Mendez APRN.FINAL CLEANER [address] [place] [address] Hematology/Oncology 03/20/22 Irena Gonzalez LISW [address] [place] [address] Product/Device Technologist Hematology/Oncology 04/16/22 Millie Pantoja MD [address] [place] [address] Infectious Diseases 05/21/22 Lorenzo Montana [address] [place] [address] Orthopedics 05/21/22 Millie Pantoja MD [address] [place] [address] Referring Infectious Diseases 06/19/22 Apprentice Cosmetologist Relationship Specialty Start Date End Date Angel Fuller MD [address] [place] [address] PCP - General Internal Medicine 05/06/18 Yue Bravo MD, [address] [place] [address] Physician Radiation Oncology 03/06/16 Deyanira Mendez, ELENA.FINAL CLEANER [address] [place] [address] Hematology/Oncology 03/20/22 Irena Gonzalez LISW [address] [place] [address] Product/Device Technologist Hematology/Oncology 04/16/22 iMllie Pantoja MD [address] [place] [id number] Infectious Diseases 05/21/22 Lorenzo Montana [address] [facility] [place] [address] Orthopedics 05/21/22 Millie Pantoja MD [address] [place] [address] Referring Infectious Diseases 06/19/22 Apprentice Cosmetologist Relationship Specialty Start Date End Date Angel Fuller MD [address] [address] PCP - General Internal Medicine 05/06/18 Yue Bravo MD, [address] [place] [address] Physician Radiation Oncology 03/06/16 Deyanira Mendez APRN.CNP [address] [place] [address] Hematology/Oncology 03/20/22 Irena Gonzalez LISW [address] [place] [address] Product/Device Technologist Hematology/Oncology 04/16/22 Millie Pantoja MD [address] [place], [place] [address] Infectious Diseases 05/21/22 Lorenzo Montana [address] [facility] [place] [address] Orthopedics 05/21/22 Millie Pantoja MD [address] [place] [address] Referring Infectious Diseases 06/19/22 Apprentice Cosmetologist Relationship Specialty Start Date End Date Angel Fuller MD [address] [place] [address] PCP - General Internal Medicine 05/06/18 Yue Bravo MD, [address] [place], [place] [address] Physician Radiation Oncology 03/06/16 Apprentice Cosmetologist Relationship Specialty Start Date End Date Angel Fuller MD [address] [place] [address] PCP - General Internal Medicine 05/06/18 Yue Bravo MD, [address] [place], [place] [address] Physician Radiation Oncology 03/06/16 Apprentice Cosmetologist Relationship Specialty Start Date End Date Angel Fuller MD [address] [place] [address] PCP - General Internal Medicine 05/06/18 Yue Bravo MD, [address] [place], [place] [address] Physician Radiation Oncology 03/06/16 Apprentice Cosmetologist Relationship Specialty Start Date End Date Angel Fuller MD [address] [place] [address] PCP - General Internal Medicine 05/06/18 Yue Bravo MD, [address] [place] [address] Physician Radiation Oncology 03/06/16 Deyanira Mendez APRN.FINAL CLEANER [address] [place] [address] Hematology/Oncology 03/20/22 Apprentice Cosmetologist Relationship Specialty Start Date End Date Angel Fuller MD [address] [place] [address] PCP - General Internal Medicine 05/06/18 Yue Bravo MD, [address] [place] [address] Physician Radiation Oncology 03/06/16 Deyanira Mendez APRN.FINAL CLEANER [address] [place] [address] Hematology/Oncology 03/20/22 Apprentice Cosmetologist Relationship Specialty Start Date End Date Angel Fuller MD [address] [place] [address] PCP - General Internal Medicine 05/06/18 Yue Bravo MD, [address] [place] [address] Physician Radiation Oncology 03/06/16 Deyanira Mendez APRN.FINAL CLEANER [address] [place] [address] Hematology/Oncology 03/20/22 Irena Gonazlez, RADIOLOGY TEACHER [address] [place] [address] Product/Device Technologist Hematology/Oncology 04/16/22 Millie Pantoja MD [address] [facility] [place] [address] Infectious Diseases 05/21/22 Lorenzo Montana [address] [facility] [place] [address] Orthopedics 05/21/22 Millie Pantoja MD [address] [place] [address] Referring Infectious Diseases 06/19/22 Team Status: Active Member Role Status Dates Dr. David Gray Jr., MD Family Provider Active Dr. Angel Fuller MD Primary Care Provider Active Team Status: Inactive Member Role Status Dates Dr. Angel Fuller MD Primary Care Provider, Referring Pr ovider Active Dr. Cade Monroy MD Attending Provider Active Team Status: Inactive Member Role Status Dates Dr. Angel Fuller MD Primary Care Provider, Referring Pr ovider Active Dr. Erik Escalera DO Attending Provider Active Team Status: Inactive Member Role Status Dates Dr. Angel Fuller MD Primary Care Provider Active Dr. Marco Obrien MD Attending Provider Active Team Status: Inactive Member Role Status Dates Dr. Angel Fuller MD Primary Care Provider Active Dr. Cade Monroy MD Attending Provider, Referring Provi kira Active Team Status: Active Member Role Status Dates Dr. Angel Fuller MD Primary Care Provider Active Dr. Erik Escalera DO Attending Provider, Referring P rovider Active Team Status: Inactive Member Role Status Dates Dr. Angel Fuller MD Primary Care Provider Active Dr. Erik Escalera DO Attending Provider, Referring P rovider Active Team Status: Inactive Member Role Status Dates Dr. Angel Fuller MD Primary Care Provider, Referring Pr ovider Active Irving Sanchez PA, PA Attending Provider Active Team Status: Inactive Member Role Status Dates Dr. Angel Fuller MD Primary Care Provider Active Dr. Beulah Bain MD Attending Provider, Referring Pr ovider Active Apprentice Cosmetologist Relationship Specialty Start Date End Date Angel Fuller MD [address] [place] [id number] PCP - General Internal Medicine 05/06/18 Yue Bravo MD [address] [place], [place] [address] Physician Radiation Oncology 03/06/16 Deyanira Mendez APRN.FINAL CLEANER [address] [place] [address] Hematology/Oncology 03/20/22 Irena Gonzalez LISW [address] [place] [address] Product/Device Technologist Hematology/Oncology 04/16/22 Millie Pantoja MD [address] [place] [address] Infectious Diseases 05/21/22 Lorenzo Montana [address] [address] Orthopedics 05/21/22 Millie Pantoja MD [address] [place] [address] Referring Infectious Diseases 06/19/22 Apprentice Cosmetologist Relationship Specialty Start Date End Date Angel Fuller MD [address] [place] [phone] PCP - General Internal Medicine 05/06/18 Yue Bravo MD [address] [place], [place] [id number] Physician Radiation Oncology 03/06/16 Deyanira Mendez APRN.FINAL CLEANER [address] [place] [address] Hematology/Oncology 03/20/22 Irena Gonzalez LISW [address] [place] [address] Product/Device Technologist Hematology/Oncology 04/16/22 Millie Pantoja MD [address] [place] [address] Infectious Diseases 05/21/22 Lorenzo Montana [address] [address] Orthopedics 05/21/22 Millie Pantoja MD [address] [place] [address] Referring Infectious Diseases 06/19/22 Apprentice Cosmetologist Relationship Specialty Start Date End Date Angel Fuller MD [address] [place] [address] PCP - General Internal Medicine 05/06/18 Yue Bravo MD [address] [place] [address] Physician Radiation Oncology 03/06/16 Deyanira Mendez APRN.FINAL CLEANER [address] [place] [address] Hematology/Oncology 03/20/22 Irena Gonzalez LISW [address] [place] [address] Product/Device Technologist Hematology/Oncology 04/16/22 Millie Pantoja MD [address] [place] [address] Infectious Diseases 05/21/22 Lorenzo Montana [address] [facility] [address] [address] [place], [place] [address] Orthopedics 05/21/22 Millie Pantoja MD [address] [place] [address] Referring Infectious Diseases 06/19/22 Team Status: Inactive Member Role Status Dates Dr. Angel Fuller MD Primary Care Provider, Referring Pr ovider Active Dr. Marco Obrien MD Attending Provider Active Team Status: Inactive Member Role Status Dates Dr. Angel Fuller MD Primary Care Provider Active Dr. Marco Obrien MD Attending Provider, Referring Pro vider Active Apprentice Cosmetologist Relationship Specialty Start Date End Date Angel Fuller MD [address] [place] [phone] PCP - General Internal Medicine 05/06/18 Yue Bravo MD [address] [place] [address] Physician Radiation Oncology 03/06/16 Deyanira Mendez APRN.CNP [address] [place] [address] Hematology/Oncology 03/20/22 Irena Gonzalez LISW [address] [place] [address] Product/Device Technologist Hematology/Oncology 04/16/22 Millie Pantoja MD [address] [place] [address] Infectious Diseases 05/21/22 Lorenzo Montana [address] [place] [address] Orthopedics 05/21/22 Millie Pantoja MD [address] [place] [address] Referring Infectious Diseases 06/19/22 Apprentice Cosmetologist Relationship Specialty Start Date End Date Angel Fuller MD [address] [place] [address] PCP - General Internal Medicine 05/06/18 Yue Bravo MD [address] [place] [address] Physician Radiation Oncology 03/06/16 Deyanira Mendez APRN.CNP [address] [place] [address] Hematology/Oncology 03/20/22 Irena Gonzalez LISW [address] [place] [address] Product/Device Technologist Hematology/Oncology 04/16/22 Millie Pantoja MD [address] [place] [address] Infectious Diseases 05/21/22 Lorenzo Montana [address] [place] [address] Orthopedics 05/21/22 Millie Pantoja MD [address] [place] [address] Referring Infectious Diseases 06/19/22 Apprentice Cosmetologist Relationship Specialty Start Date End Date Angel Fuller MD [address] [place] [phone] PCP - General Internal Medicine 05/06/18 Yue Bravo MD [address] [place], [place] [address] Physician Radiation Oncology 03/06/16 Deyanira Mendez, HUMAN RESOURCES COMPENSATION ANALYST.FINAL CLEANER [address] [place] [address] Hematology/Oncology 03/20/22 Irena Gonzalez LISW [address] [place] [address] Product/Device Technologist Hematology/Oncology 04/16/22 Millie Pantoja MD [address] [place] [address] Infectious Diseases 05/21/22 Lorenzo Montana [address] [address] Orthopedics 05/21/22 Millie Pantoja MD [address] [place] [address] Referring Infectious Diseases 06/19/22 Apprentice Cosmetologist Relationship Specialty Start Date End Date Angel Fuller MD [address] [place] [address] PCP - General Internal Medicine 05/06/18 Yue Bravo MD [address] [place], [place] [address] Physician Radiation Oncology 03/06/16 Deyanira Mendez, ELENA.FINAL CLEANER [address] [place] [address] Hematology/Oncology 03/20/22 Irena Gonzalez LISW [address] [place] [address] Product/Device Technologist Hematology/Oncology 04/16/22 Millie Pantoja MD [address] [place], [place] [address] Infectious Diseases 05/21/22 Lorenzo Montana [address] [place] [address] Orthopedics 05/21/22 Millie Pantoja MD [address] [place], [place] [address] Referring Infectious Diseases 06/19/22 Apprentice Cosmetologist Relationship Specialty Start Date End Date Angel Fuller MD [address] [phone] PCP - General Internal Medicine 05/06/18 Yue Bravo MD [address] [place] [address] Physician Radiation Oncology 03/06/16 Deyanira Mendez, ELENA.FINAL CLEANER [address] [place] [address] Hematology/Oncology 03/20/22 Irena Gonzalez LISW [address] [place] [address] Product/Device Technologist Hematology/Oncology 04/16/22 Millie Pantoja MD [address] [place] [address] Infectious Diseases 05/21/22 Lorenzo Montana [address] [facility] [place], [place] [address] Orthopedics 05/21/22 Millie Pantoja MD [address] [place] [address] Referring Infectious Diseases 06/19/22 Apprentice Cosmetologist Relationship Specialty Start Date End Date Angel Fuller MD [address] [place] [address] PCP - General Internal Medicine 05/06/18 Yue Bravo MD [address] [place] [address] Physician Radiation Oncology 03/06/16 Deyanira Mendez APRN.FINAL CLEANER [address] [place] [address] Hematology/Oncology 03/20/22 Irena Gonzalez LISW [address] [place] [address] Product/Device Technologist Hematology/Oncology 04/16/22 Millie Pantoja MD [address] [place] [address] Infectious Diseases 05/21/22 Lorenzo Montana [address] [facility] [place] [address] Orthopedics 05/21/22 Millie Pantoja MD [address] [place] [address] Referring Infectious Diseases 06/19/22 Team Status: Active Member Role Status Dates Dr. Angel Fuller MD Primary Care Provider Active Team Status: Inactive Member Role Status Dates Dr. Angel Fuller MD Primary Care Provider Active Start: January 14, 2024 End: January 14, 2024 NEVILLE GALE Attending Provider Active Start: January 14, 2024 End: January 14, 2024 NEVILLE GALE Referring Provider Active Start: January 14, 2024 End: January 14, 2024 Team Status: Inactive Member Role Status Dates Dr. Angel Fuller MD Primary Care Provider Active Start: February 19, 2024 End: February 19, 2024 Dr. Angel Fuller MD Referring Provider Active Sta rt: February 19, 2024 End: February 19, 2024 Dr. Cade Monroy MD Attending Provider Active Sta rt: February 19, 2024 End: February 19, 2024 Team Status: Inactive Member Role Status Dates Dr. Angel Fuller MD Primary Care Provider Active Start: March 06, 2024 End: March 06, 2024 Dr. Angel Fuller MD Referring Provider Active Sta rt: March 06, 2024 End: March 06, 2024 Luis Daniel oSn TRAIN DRIVER, TRAIN DRIVER-C Attending Provider Active S tart: March 06, 2024 End: March 06, 2024 Team Status: Inactive Member Role Status Dates Dr. Angel Fuller MD Primary Care Provider Active Start: March 12, 2024 End: March 13, 2024 Dr. Christopher Greenfield DO Attending Provider Activ e Start: March 12, 2024 End: March 13, 2024 Dr. Christopher Greenfield DO Emergency Provider Activ e Start: March 12, 2024 End: March 13, 2024 Team Status: Inactive Member Role Status Dates Dr. Angel Fuller MD Primary Care Provider Active Start: March 22, 2024 End: March 22, 2024 Dr. Angel Fuller MD Referring Provider Active Sta rt: March 22, 2024 End: March 22, 2024 VIRGINIA Singh Attending Provider Active Star t: March 22, 2024 End: March 22, 2024 Team Status: Inactive Member Role Status Dates Dr. Angel Fuller MD Primary Care Provider Active Start: March 22, 2024 End: March 22, 2024 Dr. Marco Obrien MD Attending Provider Active S tart: March 22, 2024 End: March 22, 2024 Team Status: Inactive Member Role Status Dates Dr. Angel Fuller MD Primary Care Provider Active Start: March 30, 2024 End: March 30, 2024 VIRGINIA Singh Attending Provider Active Star t: March 30, 2024 End: March 30, 2024 VIRGINIA Singh Referring Provider Active Star t: March 30, 2024 End: March 30, 2024 Team Status: Inactive Member Role Status Dates Dr. Angel Fuller MD Primary Care Provider Active Start: April 04, 2024 End: April 04, 2024 Dr. Angel Fuller MD Referring Provider Active Sta rt: April 04, 2024 End: April 04, 2024 Dr. Anthony Mckeon MD Attending Provider Active Start: April 04, 2024 End: April 04, 2024 Team Status: Inactive Member Role Status Dates Dr. Angel Fuller MD Primary Care Provider Active Start: April 04, 2024 End: April 04, 2024 LOGAN KamaraC Attending Provider Active S tart: April 04, 2024 End: April 04, 2024 SUMIT Kamara Referring Provider Active S tart: April 04, 2024 End: April 04, 2024 Team Status: Inactive Member Role Status Dates Dr. Angel Fuller MD Primary Care Provider Active Start: April 05, 2024 End: April 05, 2024 Dr. Cade Monroy MD Attending Provider Active Sta rt: April 05, 2024 End: April 05, 2024 Dr. Cade Monroy MD Referring Provider Active Sta rt: April 05, 2024 End: April 05, 2024 Team Status: Inactive Member Role Status Dates Dr. Angel Fuller MD Primary Care Provider Active Start: April 12, 2024 End: April 12, 2024 Dr. Angel Fuller MD Referring Provider Active Sta rt: April 12, 2024 End: April 12, 2024 Ang Skaggs NP-C Attending Provider Active Star t: April 12, 2024 End: April 12, 2024 Team Status: Inactive Member Role Status Dates Dr. Angel Fuller MD Primary Care Provider Active Start: April 12, 2024 End: April 12, 2024 Dr. Easton Hanson DO Attending Provider Active Start: April 12, 2024 End: April 12, 2024 Dr. Easton Hanson DO Emergency Provider Active Start: April 12, 2024 End: April 12, 2024 Team Status: Inactive Member Role Status Dates Dr. Angel Fuller MD Primary Care Provider Active Start: April 16, 2024 End: April 16, 2024 Dr. Easton Hanson DO Attending Provider Active Start: April 16, 2024 End: April 16, 2024 Dr. Eatson Hanson DO Emergency Provider Active Start: April 16, 2024 End: April 16, 2024 Team Status: Inactive Member Role Status Dates Dr. Angel Fuller MD Primary Care Provider Active Start: April 18, 2024 End: April 18, 2024 RISHABH GALE Attending Provider Active Start : April 18, 2024 End: April 18, 2024 RISHABH GALE Referring Provider Active Start : April 18, 2024 End: April 18, 2024 Team Status: Inactive Member Role Status Dates Dr. Angel Fuller MD Primary Care Provider Active Start: April 18, 2024 End: April 18, 2024 Dr. Julien Holder DO Attending Provider Active Start: April 18, 2024 End: April 18, 2024 Dr. Julien Holder DO Emergency Provider Active Start: April 18, 2024 End: April 18, 2024 Team Status: Inactive Member Role Status Dates Dr. Angel Fuller MD Primary Care Provider Active Start: April 04, 2024 End: April 04, 2024 Dr. Anthony Mckeon MD Attending Provider Active Start: April 04, 2024 End: April 04, 2024 Dr. Anthony Mckeon MD Referring Provider Active Start: April 04, 2024 End: April 04, 2024 Team Status: Inactive Member Role Status Dates Dr. Angel Fuller MD Primary Care Provider Active Start: May 02, 2024 End: May 02, 2024 Dr. Angel Fuller MD Referring Provider Active Sta rt: May 02, 2024 End: May 02, 2024 VIRGINIA Singh Attending Provider Active Star t: May 02, 2024 End: May 02, 2024 Team Status: Inactive Member Role Status Dates Dr. Angel Fuller MD Primary Care Provider Active Start: May 10, 2024 End: May 10, 2024 Dr. Angel Fuller MD Referring Provider Active Sta rt: May 10, 2024 End: May 10, 2024 Dr. Anthony Mckeon MD Attending Provider Active Start: May 10, 2024 End: May 10, 2024 Team Status: Inactive Member Role Status Dates Dr. Angel Fuller MD Primary Care Provider Active Start: May 11, 2024 End: May 11, 2024 Dr. Anthony Mckeon MD Attending Provider Active Start: May 11, 2024 End: May 11, 2024 Dr. Anthony Mckeon MD Referring Provider Active Start: May 11, 2024 End: May 11, 2024 Team Status: Active Member Role Status Dates Dr. Angel Fuller MD Primary Care Provider Active Start: May 11, 2024 Dr. Anthony Mckeon MD Referring Provider Active Start: May 11, 2024 Dr. Anthony Mckeon MD Other Provider Active S tart: May 11, 2024 Dr. Shakeel Spears MD Attending Provider Active S tart: May 11, 2024 Team Status: Active Member Role Status Dates Dr. Angel Fuller MD Primary Care Provider Active Start: May 17, 2024 Dr. Anthony Mckeon MD Attending Provider Active Start: May 17, 2024 Dr. Anthony Mckeon MD Referring Provider Active Start: May 17, 2024 Team Status: Active Member Role Status Dates Dr. Angel Fuller MD Primary Care Provider Active Start: May 17, 2024 Dr. Anthony Mckeon MD Referring Provider Active Start: May 17, 2024 Dr. Anthony Mckeon MD Other Provider Active S tart: May 17, 2024 Dr. Tory Puentes MD Attending Provider Active Start: May 17, 2024 Team Status: Inactive Member Role Status Dates Dr. Angel Fuller MD Primary Care Provider Active Start: May 17, 2024 End: May 17, 2024 Dr. Anthony Mckeon MD Attending Provider Active Start: May 17, 2024 End: May 17, 2024 Dr. Anthony Mckeon MD Referring Provider Active Start: May 17, 2024 End: May 17, 2024 Apprentice Cosmetologist Relationship Specialty Start Date End Date Angel Fuller MD [address] [address] PCP - General Internal Medicine 05/06/18 Yue Bravo MD [address] [place], [place] [address] Physician Radiation Oncology 03/06/16 Deyanira Mendez APRN.FINAL CLEANER [address] [place], [place] [id number] Hematology/Oncology 03/20/22 Irena Gonzalez LISW [address] [place] [address] Product/Device Technologist Hematology/Oncology 04/16/22 Millie Pantoja MD [address] [place] [address] Infectious Diseases 05/21/22 Lorenzo Montana [address] [id number] Orthopedics 05/21/22 Millie Pantoja MD [address] [place] [address] Referring Infectious Diseases 06/19/22 Team Status: Inactive Member Role Status Dates Dr. Angel Fuller MD Primary Care Provider Active Start: May 10, 2024 End: May 10, 2024 Dr. Anthony Mckeon MD Attending Provider Active Start: May 10, 2024 End: May 10, 2024 Dr. Anthony Mckeon MD Referring Provider Active Start: May 10, 2024 End: May 10, 2024 Team Status: Inactive Member Role Status Dates Dr. Angel Fuller MD Primary Care Provider Active Start: June 09, 2024 End: June 09, 2024 Dr. Angel Fuller MD Referring Provider Active Sta rt: June 09, 2024 End: June 09, 2024 Dr. Anthony Mckeon MD Attending Provider Active Start: June 09, 2024 End: June 09, 2024 Team Status: Inactive Member Role Status Dates Dr. Angel Fuller MD Primary Care Provider Active Start: June 24, 2024 End: June 24, 2024 Dr. Angel Fuller MD Referring Provider Active Sta rt: June 24, 2024 End: June 24, 2024 Dr. Jeovanny Moore DO Attending Provider Active Start: June 24, 2024 End: June 24, 2024 Team Status: Inactive Member Role Status Dates Dr. Angel Fuller MD Primary Care Provider Active Start: June 30, 2024 End: June 30, 2024 Dr. Angel Fuller MD Referring Provider Active Sta rt: June 30, 2024 End: June 30, 2024 Dr. Anthony Mckeon MD Attending Provider Active Start: June 30, 2024 End: June 30, 2024 Team Status: Inactive Member Role Status Dates Dr. Angel Fuller MD Primary Care Provider Active Start: June 30, 2024 End: June 30, 2024 Dr. Anthony Mckeon MD Attending Provider Active Start: June 30, 2024 End: June 30, 2024 Dr. Anthony Mckeon MD Referring Provider Active Start: June 30, 2024 End: June 30, 2024 Team Status: Inactive Member Role Status Dates Dr. Angel Fuller MD Primary Care Provider Active Start: June 09, 2024 End: June 09, 2024 Dr. Anthony Mckeon MD Attending Provider Active Start: June 09, 2024 End: June 09, 2024 Dr. Anthony Mckeon MD Referring Provider Active Start: June 09, 2024 End: June 09, 2024 Team Status: Inactive Member Role Status Dates Dr. Angel Fuller MD Primary Care Provider Active Start: July 13, 2024 End: July 13, 2024 Dr. Angel Fuller MD Referring Provider Active Sta rt: July 13, 2024 End: July 13, 2024 Dr. Jeovanny Moore DO Attending Provider Active Start: July 13, 2024 End: July 13, 2024 Team Status: Inactive Member Role Status Dates Dr. Angel Fuller MD Primary Care Provider Active Start: July 14, 2024 End: July 14, 2024 Dr. Angel Fuller MD Referring Provider Active Sta rt: July 14, 2024 End: July 14, 2024 Dr. Anthony Mckeon MD Attending Provider Active Start: July 14, 2024 End: July 14, 2024 Team Status: Inactive Member Role Status Dates Dr. Angel Fuller MD Primary Care Provider Active Start: July 22, 2024 End: July 22, 2024 Dr. Angel Fuller MD Referring Provider Active Sta rt: July 22, 2024 End: July 22, 2024 Dr. Jeovanny Moore DO Attending Provider Active Start: July 22, 2024 End: July 22, 2024 Team Status: Inactive Member Role Status Dates Dr. Angel Fuller MD Primary Care Provider Active Start: July 29, 2024 End: July 29, 2024 Dr. Angel Fuller MD Referring Provider Active Sta rt: July 29, 2024 End: July 29, 2024 Dr. Jeovanny Moore DO Attending Provider Active Start: July 29, 2024 End: July 29, 2024 Apprentice Cosmetologist Relationship Specialty Start Date End Date Angel Fuller MD [address] [place] [address] PCP - General Internal Medicine 05/06/18 Yue Bravo MD [address] [place] [address] Physician Radiation Oncology 03/06/16 Deyanira Mendez APRN.LUPE [address] [place] [address] Hematology/Oncology 03/20/22 Irena Gonzalez LISW [address] [place] [address] Product/Device Technologist Hematology/Oncology 04/16/22 Millie Pantoja MD [address] [place] [address] Infectious Diseases 05/21/22 Lorenzo Montana [address] [place] [address] Orthopedics 05/21/22 Millie Pantoja MD [address] [place] [address] Referring Infectious Diseases 06/19/22 Care Team (unrecognized sect ion and content) Care Team Personnel Name: ANGEL FULLER MD Position: Physician Member Role: Primary Care Physician Address: Address: [address] [place] [address] [address] Care Team Related Persons Name: ROBERTO BURGER Name: ROBERTO BURGER Name: MYLES MONROY Care Team Personnel Name: ANGEL FULLER MD Position: Physician Member Role: Primary Care Physician Address: Address: [address] [place] [address] [address] Care Team Related Persons Name: ROBERTO BURGER Name: ROBERTO BURGER Name: MYLES MONROY INFORMATION SOURCE (unrecogn ized section and content) DATE CREATED AUTHOR [facility]/10/2023 [facility] DATE CREATED AUTHOR AUTHOR'S ORGANIZ ATION 05/04/2024 [facility] DATE CREATED AUTHOR AUTHOR'S ORGANIZ ATION 05/15/2024 [facility] DATE CREATED AUTHOR AUTHOR'S ORGANIZ ATION 07/30/2024 [facility] DATE CREATED AUTHOR AUTHOR'S ORGANIZ ATION 08/07/2024 [facility] FOR RECORDS PERTAINING TO PATIENTS WHO ARE [...] BE BASED ON THE PRIMARY CLINICAL RECORDS. [facility] [employer] [facility]. provides no warranty or guarantee of the accuracy or completeness of information in this document.
[2024-08-13 21:15] VITALS: BP 159/80; PULSE 71; RESP 16; O2SAT 98
[2024-08-13 21:15] LABS: Absolute Lymphocyte Count 1.21 X10^3/uL (0.83-4.51); Absolute Neutrophil Count 5.3 X10^3/uL (2.0-7.7); Basophil# 0.05 X10^3/uL; Basophil% 0.7 % (0-1); Eosinophil# 0.05 X10^3/uL; Eosinophils% 0.7 % (0-5); Hematocrit 36.2 % (37-47); Hemoglobin 12.4 g/dL (12.0-15.0); Lymphocyte # 1.21 X10^3/ul (0.83-4.51); Mean Corp Hgb Conc 34.3 g/dL (32-36); Mean Corpuscular Hgb 32.1 pg (27.0-32.0); Mean Corpuscular Volume 93.8 fL (81-99); Monocyte# 0.94 X10^3/uL; Monocyte% 12.4 % (0-10); NRBC Flagged by Analyzer 0 % (0-5); Neutrophil # 5.29 X10^3/uL (2.7-7.7); Neutrophil % 69.7 % (47-70); Platelet Count 301 K/mm3 (150-450); RBC Distribution Width CV 11.9 % (11.6-14.6); Red Blood Count 3.86 M/mm3 (4.2-5.4); White Blood Count 7.6 K/mm3 (4.4-11.0)
[2024-08-13 21:22] LABS: Anion Gap 12 (5-15); BUN 6 mg/dL (4-19); BUN/Creat Ratio 11.8 RATIO (10-20); Calcium,Total 9.2 mg/dL (7.6-11.0); Carbon Dioxide 23.4 mmol/L (21.0-32.0); Chloride 98 mmol/L (98-108); Creatinine, Serum 0.51 mg/dL (0.70-1.20); EST Glomerular Filtration Rate 97 (>60); Glucose 100 mg/dL (70-99); Magnesium 2.4 mg/dL (1.5-2.2); Sodium Level 133 mmol/L (133-145)
[2024-08-13 21:24] VITALS: BP 183/75; BP 197/87; BP 217/100; PULSE 72; PULSE 77
[2024-08-13 22:10] VITALS: BP 160/81; PULSE 65; RESP 14; O2SAT 99
[2024-08-13 22:21] VITALS: BP 167/79; PULSE 71; RESP 18; TEMP 36.7; O2SAT 99
== END 2024-08-13 22:22 | disposition home or self-care (01) ==
PROVIDERS: Emergency Provider Emergency Medicine; PCP Internal Medicine; Visit Provider Emergency Medicine
DX: R00.2 Palpitations (principal); I10 Essential (primary) hypertension; I49.1 Atrial premature depolarization; I25.10 Atherosclerotic heart disease of native coronary artery without angina pectoris
CPT/HCPCS: 80048; 83735; 84443; 85025; 93005; 99285; A4216

== ENCOUNTER → 2024-08-31 | Outpatient (CLI) | payer MEDICARE, OTHER, SELFPAY ==
[2024-08-31 18:21] LABS: Ferritin 87 ng/mL (22-378); Vitamin B12 521 pg/mL (180-914)
[2024-08-31 18:49] LABS: Iron 74 ug/dL (50-170)
== END | disposition home or self-care (01) ==
LOC: MTLAB 14:39
PROVIDERS: PCP Internal Medicine; Referring Provider Psychiatry & Neurology Neurology; Visit Provider Psychiatry & Neurology Neurology
DX: D64.9 Anemia, unspecified (principal); Z86.2 Personal history of diseases of the blood and blood-forming organs and certain disorders involving the immune mechanism
CPT/HCPCS: 36415; 82607; 82728; 83540

== ENCOUNTER 2024-11-21 08:14 | Emergency (ER) | payer MEDICARE, OTHER, SELFPAY ==
--- OUTSIDE RECORDS SUMMARY | 2024-08-18 10:22 | XMS RPT_ITS ---
Author Name Auto Generated Organization [facility] Support Name Relationship Address Phone ROBERTO BURGER Next of Kin Unknown [phone] JENNYFER ROBERTO Next of Kin Unknown [phone] MYLES MONROY Next of Kin Unknown + BURGER, ROBERTO Next of Kin Unknown [phone] BURGER, ROBERTO Next of Kin Unknown [phone] NALINIXAVICK Next of Kin Unknown + BURGER, ROBERTO Next of Kin Unknown [phone] BURGER, ROBERTO Next of Kin Unknown [phone] NALINIXAVICK Next of Kin Unknown + BURGER, ROBERTO Next of Kin Unknown [phone] BURGER, ROBERTO Next of Kin Unknown [phone] NALINI MYLES Next of Kin Unknown + BURGER, ROBERTO Next of Kin Unknown [phone] BURGER, ROBERTO Next of Kin Unknown [phone] NALINI, MYLES Next of Kin Unknown + BURGER, ROBERTO Next of Kin Unknown [phone] BURGER, ROBERTO Next of Kin Unknown [phone] NALINI, MYLES Next of Kin Unknown + BURGER, ROBERTO Next of Kin Unknown [phone] BURGER, ROBERTO Next of Kin Unknown [phone] NALINIXAVICK Next of Kin Unknown + Care Team Providers Care Communications Technologist Name Role Phone NAHOMI STAPLES Attending Maged Borges MD, DR ANGEL Menjivar Primary Care Unavailable JONNY RETANA, DR ANGEL Menjivar Primary Care Unavailable NAHOMI STAPLES Attending Maged Post, THONG Mayen Attending Greg WOODS MD, DR ANGEL Menjivar Primary Care Unavailable NEVILLE BARCENAS, SHAHLA Attending Unavail sue WOODS MD, DR ANGEL Menjivar Primary Care Unavailable ALFRED BARCENAS, PAVEL Attending Greg WOODS MD, DR ANGEL Menjivar Primary Care Unavailable NEVILLE BARCENAS, SHAHLA Attending Unavail sue WOODS MD, DR ANGEL Menjivar Primary Care Unavailable LAUREN BARCENAS, THONG Mayen Attending Greg WOODS MD, DR ANGEL Menjivar Primary Care Unavailable KARIE MEYER Attending Unavailable ANGEL WOODS Primary Care Unavailable ELDA RIVERA Referring Unavail ANGEL Smith Primary Care Unavailable ANGEL WOODS Primary Care Unavailable ANGEL WOODS Primary Care Unavailable PROBLEMS DATE TYPE CONDITION / CODE ATTENDING STATUS [facility] 07/12/2024 Active New Patient / UNK(Unknown) KARIE MEYER Active [facility] 06/14/2024 Active Essential hypertension, malignant / I10(ICD-10) NA Active [facility] 05/25/2024 Active Elevated total protein / R77.8(ICD-10) NA Active [facility] 05/25/2024 Active Thrombocythemia / D75.839(ICD-10) NA Active [facility] 05/25/2024 Active 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) NA Active [facility] 04/28/2024 Admitting Diagnosis Essential (primary) hypertension / I10(ICD-10) PAVEL PACHECO Active [facility] 03/25/2024 Admitting Diagnosis Gastro-esophageal reflux disease without esophagitis / K21.9(ICD-10) SHAHLA HUTCHINSON Active [facility] 02/04/2024 Active Encounter for screening mammogram for malignant neoplasm of breast / Z12.31(ICD-10) NA Active [facility] 12/08/2023 Admitting Diagnosis 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) [facility] 12/08/2023 Admitting Diagnosis Age-related osteoporosis without current pathological fracture / M81.0(ICD-10) [facility] 12/08/2023 Admitting Diagnosis Vitamin D deficiency, unspecified / E55.9(ICD-10) [facility] MAIN PROCEDURES No Procedure Records Found RESULTS PBNP Collected: 10:27 AM Status: F Source: [facility] TYPE CODE TESTS RESULT OUT OF RANGE REFERENCE UNITS LAB PBNP(LOINC) N-Terminal proBNP 303 0-450 pg/mL Result Comment: NT-proBNP re sults of less than 300 pg/mL effectively rules out acute congestive heart failure with 99% negative predictive value. Performed By: #### PBNP #### [facility] [address], [place] [address] PROGRESS Observed: 07/12/2024 11:09 AM Status: COMPLETED Source: [facility] HNO ID: [id number] Author: KARIE MEYER, DO Service: ? Author Type: Physician Type: Progress Notes Filed: 08/04/2024 11:41 Note Text: [facility] [place] DEPARTMENT OF VASCULAR SURGERY OUTPATIENT VISIT DATE July 12, 2024 OUTPATIENT VISIT TYPE CONSULTATION SERVICE DATE: 07/12/2024 SERVICE TIME: 11:09 AM PRIMARY CARE PHYSICIAN: Angel Woods MD REFERRING PROVIDER: No referring provider defined [...] recorded Duration of Symptoms: Progressive PREVIOUS TESTS: 2020- PVRs normal, Venous Reflux- normal, no deep [...] Problem Relation Age of Onset Heart Mother NC Osteoporosis Mother Heart Father NC Heart Sister bunddle block Hyperlipidemia Sister Hypertension [...] 5 mg/100 mL pgbk PREMIX piggyback Zoledronic [facility]-Ucniqvbg-Vdoge Active 1 EACH .Route ONCE 100 February [...] symptoms SIGNATURE: Karie Meyer DO PATIENT NAME: Yury Monroy DATE: July 12, 2024 TIME: 11:09 AM CNOV Observed: 07/12/2024 11:00 AM Status: COMPLETED Source: [facility] Office Visit (VASSWS) YURY MONROY ([id number]) 1950 F Date Time Provider Department 07/12/24 11:00 AM AKRIE MEYER During your visit today, we recorded the following information about you: Pulse Blood pressure 79/minute 143/84 Karie Meyer, 08/04/2024 11:41 AM Signed [facility] [place] DEPARTMENT OF VASCULAR SURGERY OUTPATIENT VISIT DATE July 12, 2024 OUTPATIENT VISIT TYPE CONSULTATION SERVICE DATE: 07/12/2024 SERVICE TIME: 11:09 AM PRIMARY CARE PHYSICIAN: Angel Woods MD REFERRING PROVIDER: No referring provider defined [...] Problem Relation Age of Onset Heart Mother NC Osteoporosis Mother Heart Father NC Heart Sister bunddle block Hyperlipidemia Sister Hypertension [...] 5 mg/100 mL pgbk PREMIX piggyback Zoledronic [facility]sc[facility]ia-Gooim Active 1 EACH .Route ONCE 100 February [...] symptoms SIGNATURE: Karie Meyer DO PATIENT NAME: Yruy Monroy DATE: July 12, 2024 TIME: 11:09 AM Allergies As of Date: 07/12/2024 Noted Allergy Reaction DULOXETINE 09/14/2019 2 - Rash Date Reviewed: 09/08/2023 Reviewed by: Laura Powell MA - Fully Assessed Reason for Visit: New Patient [172] Primary Visit Diagnosis:Venous (peripheral) insufficiency [I87.2] Prescriptions as of 08/04/2024 - zoledronic acid (RECLAST) 5 mg/100 mL pgbk PREMIX piggyback Zoledronic Nues-Jiwgfusk-Qanjx Active 1 EACH .Route ONCE 100 February 07, 2021 11:08am onceinfuse over 20 minutes - acetaminophen (TYLENOL EX STR RAPID RELEASE ORAL) Take 1,000 mg by mouth twice daily as needed. 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 Bone Broth Collagen 1 Scoop per day (2 table spoons) - COLLAGEN MISC (Discontinued) Reported on 09/08/2023 - omeprazole magnesium (PRILOSEC ORAL) (Discontinued) Take by mouth. Disposition: Return if symptoms worsen or fail to improve. Follow-up and Disposition History for Encounter Date Provider Department Center 07/12/2024 [id number] MEYER [facility] Encounter Status:Closed by KARIE MEYER on 08/04/24 BAS METAB 2000 PNL SERPL Collected: 8:24 AM Status: F Source: [facility] Order Comment: Specimen Type : BLOOD SPECIMEN Ordering Facility: [facility] Address: [address] [place] [address] TYPE CODE TESTS RESULT OUT OF RANGE REFERENCE UNITS LAB 2345-7([facility]) Glucose SerPl-[facility] 82 74-99 mg/dL Result Comment: The [place] Diabetes Association (ADA) provides guidance for cutoff [...] Standards of Medical Care in Diabetes 2016, [place] [employer] Association. Diabetes Care. 2016.39(Suppl 1). LAB 3094-0(LOINC) BUN SerPl-mCnc 6 Low 7-21 mg/ dL LAB 2160-0(LOINC) Creat SerPl-mCnc 0.54 Low 0.58-0.96 mg/dL LAB 2951-2(LOINC) Sodium SerPl-sCnc 136 136-144 mmol/L LAB 2823-3(LOINC) Potassium SerPl-sCnc 3.9 3.7-5.1 mmol/L LAB 2075-0(LOINC) Chloride SerPl-sCnc 100 98-107 mmol/L LAB 2028-9(LOINC) CO2 SerPl-sCnc 26 22-30 mmo l/L LAB 75713-4(LOINC) Anion Gap SerPl-sCnc 10 8-15 mmol/L LAB 25594-2(LOINC) Calcium SerPl-mCnc 9.5 8.5-10.2 mg/dL LAB 25752-7(LOINC) Creatinine + eGFR Pnl SerPlBld 96 >=60 mL/min/1 .73m??? Result Comment: Estimated Gl omerular Filtration Rate (eGFR) is calculated using the 2020 CKD-EPI creatinine equation. This equation utilizes serum creatinine, sex, and age as parameters. The creatinine assay has traceable calibration to isotope dilution-mass spectrometry. Refer to KDIGO guidelines for clinical interpretation. In patients with unstable renal function, e.g. those with acute kidney injury, the eGFR may not accurately reflect actual GFR. Performed By: #### 04912-7 # ### [facility] CLIA [id number] [address] [place] [address] STATES OF [place] CNPN Observed: 06/03/2024 12:00 AM Status: COMPLETED Source: [facility] Telephone (VASSMD) YUYR MONROY ([id number]) 1950 F Date Time Provider Department 06/03/24 KARIE MEYER During your visit today, we recorded the following information about you: Clifford Trejo, RN 06/03/2024 4:30 PM Signed Pt called in [...] pain and burning. Reviewed the findings with Yury. Recommend that she continue wearing her compression as needed and as tolerated, especially on days she is doing prolonged standing or sitting. No significant vascular etiology identified for her symptoms. She is to follow up with us as needed. Twila Gandara RN 06/03/2024 4:50 PM Signed Spoke with patient [...] 2 Tablespoonsful once daily. Unknown dosage - calcium/chondr/collag/glycosam (BEYOND BONE BROTH ORAL) Take by mouth. Bone Broth Collagen 1 Scoop per day (2 table spoons) - zoledronic acid (RECLAST) 5 mg/100 mL pgbk PREMIX piggyback Zoledronic Efcz-Wgxjfgqr-Xvpwf Active 1 EACH .Route ONCE 100 February 07, 2021 11:08am onceinfuse over 20 minutes - acetaminophen (TYLENOL EX STR RAPID RELEASE ORAL) Take 1,000 mg by mouth twice daily as needed. 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*03/06/2016 DCIS [...] Encounter Status:Closed by CLIFFORD TREJO on 06/03/24 CBC W AUTO DIFF BLD Collected: 05/25/2024 3:[address] atus: F Source: [facility] Order Comment: Specimen Type : BLOOD SPECIMEN Ordering Facility: [facility] Address: [address] [place] [address] TYPE CODE TESTS RESULT OUT OF RANGE REFERENCE UNITS LAB 6690-2(LOINC) WBC # Bld Auto 8.73 3.70-11.00 k/uL LAB 789-8(LOINC) RBC # Bld Auto 3.41 Low 3.90-5.20 m/ uL LAB 718-7(LOINC) Hgb Bld-mCnc 11.0 Low 11.5-15.5 g/dL LAB 4544-3(LOINC) Hct VFr Bld Auto 32.3 Low 36.0-46.0 % LAB 787-2(LOINC) MCV RBC Auto 94.7 80.0-100.0 fL LAB 785-6(LOINC) MCH RBC Qn Auto 32.3 26.0-34.0 p g LAB 786-4(LOINC) MCHC RBC Auto-mCnc 34.1 30.5-36.0 g/dL LAB 83003-0(LOINC) RDW RBC-Rto 13.0 11.5-15.0 % LAB 777-3(LOINC) Platelet # Bld Auto 290 150-400 k/uL LAB 97287-3([facility]) PMV Bld Auto 8.7 Low 9.0-12.7 fL LAB 770-8(INC) Neutrophils/leuk NFr Bld Auto 77.6 % LAB 751-8(INC) Neutrophils # Bld Auto 6.78 1.45-7.50 k/uL LAB 736-9([facility]) Lymphocytes/leuk NFr Bld Auto 9.5 % LAB 731-0([facility]) Lymphocytes # Bld Auto 0.83 Low 1.00-4.00 k/uL LAB 5905-5([facility]) Monocytes/leuk NFr Bld Auto 11.3 % LAB 742-7([facility]) Monocytes # Bld Auto 0.99 High <0.87 k/uL LAB 713-8([facility]) Eosinophil/leuk NFr Bld Auto 0.5 % LAB 711-2([facility]) Eosinophil # Bld Auto 0.04 <0.46 k/uL LAB 706-2([facility]) Basophils/leuk NFr Bld Auto 0.6 % LAB 704-7([facility]) Basophils # Bld Auto 0.05 <0.11 k/uL LAB 59705-5([facility]) Imm Granulocytes/inder k NFr Bld Auto 0.5 % LAB 56931-4([facility]) Imm Granulocytes # Bld Auto 0.04 <0.10 k/uL LAB 30811-7([facility]) nRBC/100 WBC Bld-Rto 0.0 /100 WBC LAB 771-6([facility]) nRBC # Bld Auto <0.01 <0.01 k/u L LAB 09571-2([facility]) Differential method Bld Auto Performed By: #### 64077-7 # ### [facility] CLIA [id number] [address] [place] [address] [place] SODIUM ?TM UR-SCNC Collected: 5 3:24 PM Status: F Source: [facility] Order Comment: Specimen Type : URINE SPECIMEN Ordering Facility: [facility] Address: [address] [place] [address], [place] [id number] TYPE CODE TESTS RESULT OUT OF RANGE REFERENCE UNITS LAB 89084-1([facility]) Sodium ?Tm Ur-sCnc <20 14-216 mmol/L Result Comment: Result reche cked. Performed By: #### 09190-3 # ### [facility] CLIA [id number] [facility] [address] [address] [place] OSMOLALITY UR Collected: 05/25/2024 3:24 PM Status: F Source: [facility] Comment: Specimen Type : URINE SPECIMEN Ordering Facility: [facility] Address: [address] [place] [address] TYPE CODE TESTS RESULT OUT OF RANGE REFERENCE UNITS LAB 2695-5([facility]) Osmolality Ur 109 50-1200 mOsm /kg Performed By: #### 2695-5 ## ## [facility] CLIA [id number] [address] [place] [address] [facility] PATHOLOGIST INTERPRETATION C BC AND DIFFERENTIAL (LAB REFLEX ORDER-NO BILL) Collected: 05/25/2024 3:15 PM Status: F Source: [facility] Comment: Specimen Type : BLOOD SPECIMEN Ordering Facility: [facility] Address: [address] [place] [address] TYPE CODE TESTS RESULT OUT OF RANGE REFERENCE UNITS LAB SREVW STAFF REVIEW, CBCDIF The Pathologist Interpretation on this sample was cancelled because the hematology analyzer did not flag any parameters as requiring manual review. If there is a specific clinical concern for which you would like a pathologist to review the blood smear, please call Lab Client Services within 28 days. LAB 97901-6([facility] ) Chemist Helper review No review performed. 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 The variants interrogated are c.845G>A, p.Zwj386Jcg; g.[id number]; [id number] (legacy name C282Y), c.187C>G, p.Gqn67Gwo; g.[id number]; [id number] (legacy name H63D) and c.193A>T, p.Hjm17Jgq; g.42236637; [id number] (legacy name S65C). The reference genome used was GRCh37/hg19. Limitations: DNA studies do not provide a definitive genetic risk in all individuals. This targeted test is designed to detect three specific variants (see methodology for details) in HFE (OMIM 194894). Uncommon variants or single nucleotide polymorphisms may affect binding of probes and thus result in false negative, false positive, or indeterminate results. This test does not detect other HFE variants. Disclaimer: This test was developed and its performance characteristics determined by [facility]'s Pathology and Laboratory Medicine Department. It has not been cleared or approved by the FDA. [facility]'s Pathology and Laboratory Medicine Department is regulated under CLIA as certified to perform high-complexity testing. This test is used for clinical purposes. It should not be regarded as investigational or for research. Test performed at [facility], [address] [place], [place] [id number]. CLIA Number: [id number] Interpretation performed by Ernestine Spears, PhD Performed By: #### HEMDNA ## ## [facility] CLIA [id number] [address] [place] [address] STATES OF [facility] CBC Collected: 1:05 PM Status: F Source: [facility] TYPE CODE TESTS RESULT OUT OF RANGE REFERENCE UNITS LAB WBC(LOINC) WBC 7.8 4.5-10.8 10 3/mcL LAB RBCCT(LOINC) RBC 3.89 Low 4.10-5.30 10 6/mcL LAB HGB(LOINC) Hgb 12.9 12.0-16.0 G/dL LAB HCT(LOINC) Hct 36.3 34.0-46.0 % LAB MCV(LOINC) MCV 93.3 80.0-99.0 fL LAB MCH(LOINC) MCH 33.2 High 27.0-33.0 pg LAB MCHC(LOINC) MCHC 35.6 32.0-36.0 G/dL LAB RDW(LOINC) RDW 12.4 11.5-15.5 % LAB PLT(LOINC) Platelet 489 High 150-450 10 3/mcL LAB MPV(LOINC) MPV 7.0 6.6-10.5 fL Performed By: #### FERR, GFR , FES, CMP, ADIFF, ANEU, TSH, CBC #### [place] [address] .AUTO DIFF Collected: 04/28/2024 1:05 PM Status: F Source: [facility] TYPE CODE TESTS RESULT OUT OF RANGE REFERENCE UNITS LAB MARY(LOINC) Neutrophil % 78.7 High 50.0-75.0 % LAB LYM(LOINC) Lymphocyte % 9.2 Low 20.0-40.0 % LAB MON(LOINC) Monocyte % 11.5 2.0-13.0 % LAB EO(LOINC) Eosinophil % 0.3 0.0-6.0 % LAB BAS(LOINC) Basophil % 0.3 0.0-2.5 % LAB ABLYM(LOINC) Lymphocyte, Absolute 0.7 Low 0.9-4.3 10 3/mcL LAB CHAUNCEY(LOINC) Monocyte, Absolute 0.9 0.1-1.4 10 3/mcL LAB AEOS(LOINC) Eosinophil, Absolute 0.0 0.0-0.7 10 3/mcL LAB ABAS(LOINC) Basophil, Absolute 0.0 0.0-0.3 10 3/mcL Performed By: #### FERR, GFR , FES, CMP, ADIFF, ANEU, TSH, CBC #### [place] [address] .NEUABS Collected: 1:05 PM Status: F Source: [facility] TYPE CODE TESTS RESULT OUT OF RANGE REFERENCE UNITS LAB ANEU(LOINC) Neutrophil, Absolute 6.2 2.3-8.1 10 3/mcL Performed By: #### FERR, GFR , FES, CMP, ADIFF, ANEU, TSH, CBC #### [place] [address] FES Collected: 1:05 PM Status: F Source: [facility] TYPE CODE TESTS RESULT OUT OF RANGE REFERENCE UNITS LAB FE(LOINC) Iron 81 50-170 mcg/dL LAB IBC(LOINC) TIBC 289 250-500 mcg/dL LAB FESAT(LOINC) Iron Sat 28 % Performed By: #### FERR, GFR , FES, CMP, ADIFF, ANEU, TSH, CBC #### [place] [address] CMP Collected: 04/28/2024 1:05 PM Status: F Source: [facility] TYPE CODE TESTS RESULT OUT OF RANGE REFERENCE UNITS LAB GLU(LOINC) Glucose Level 93 82-115 mg/dL LAB NA(LOINC) Sodium Level 130 Low 136-145 mEq/L LAB K(LOINC) Potassium Level 4.2 3.5-5.0 mEq/L LAB CL(LOINC) Chloride 97 Low 98-110 mEq/L LAB CO2(LOINC) CO2 25 22-32 mEq/L LAB EBAL(LOINC) Electrolyte Balance 8.0 4.0-15.0 mEq/L LAB BUN(LOINC) BUN 7.0 Low 8.0-22.0 mg/dL LAB CRE(LOINC) Creatinine Lvl (s) 0.52 0.50-1.20 mg/dL Result Comment: Testing perf ormed on What[employer] analyzer using enzymatic creatinine methodology. LAB BC(LOINC) BUN/Creatinine Ratio 13.5 10.0-22.0 ratio LAB CA(LOINC) Calcium Lvl 9.9 8.7-10.4 mg/dL LAB PROT(LOINC) Total Protein 7.4 5.7-8.2 G/dL LAB ALB(LOINC) Albumin Level 3.9 3.2-4.8 G/dL LAB GLB(LOINC) Globulin 3.5 1.5-3.8 G/dL LAB AG(LOINC) A/G Ratio 1.1 0.9-1.6 ratio LAB BILT(LOINC) Bili Total 0.50 0.20-1.20 mg/dL Result Comment: Use of this assay is not recommended for patients undergoing treatment with eltrombopag due to the potential for falsely elevated results. LAB AP(LOINC) Alk Phos 73 38-126 U/L LAB AST(LOINC) AST/SGOT 25 8-34 U/L LAB ALT(LOINC) ALT/SGPT 16 10-49 U/L Performed By: #### FERR, GFR , FES, CMP, ADIFF, ANEU, TSH, CBC #### [place] [address] FERR Collected: 1:05 PM Status: F Source: [facility] TYPE CODE TESTS RESULT OUT OF RANGE REFERENCE UNITS LAB FERR(LOINC) Ferritin 300.3 High 8.0-252.0 ng/mL Performed By: #### FERR, GFR , FES, CMP, ADIFF, ANEU, TSH, CBC #### [place] [address] TSH Collected: 1:05 PM Status: F Source: [facility] TYPE CODE TESTS RESULT OUT OF RANGE REFERENCE UNITS LAB TSH(LOINC) TSH 0.950 0.550-4.780 mIU/mL Performed By: #### FERR, GFR , FES, CMP, ADIFF, ANEU, TSH, CBC #### [place] [address] .GFR Collected: 04/28/2024 1:05 PM Status: F Source: [facility] TYPE CODE TESTS RESULT OUT OF RANGE REFERENCE UNITS LAB eGFR(LOINC) Estimated Glomerular Filtration Rate 96 ml/min/1. 73sqm Result Comment: Stages of Chronic Kidney Disease [...] calculate the eGFR results. Performed By: #### FERR, GFR , FES, CMP, ADIFF, ANEU, TSH, CBC #### [place] [address] VIDH Collected: 1:50 PM Status: F Source: [facility] TYPE CODE TESTS RESULT OUT OF RANGE REFERENCE UNITS LAB VIDH(LOINC) Vit. D 25-Hydroxy 32.0 ng/mL Result Comment: Interpretive Values Based on Total 25(OH)D: Severe Deficiency <20 ng/mL Mild to Moderate Deficiency 20-30 ng/mL Optimum Levels 30-100 ng/mL Toxicity Possible >100 ng/mL Performed By: #### VIDH, GFR , B12, BMP #### [place] [address] BMP Collected: 03/25/2024 1:50 PM Status: F Source: [facility] TYPE CODE TESTS RESULT OUT OF RANGE REFERENCE UNITS LAB GLU(LOINC) Glucose Level 99 82-115 mg/dL LAB NA(LOINC) Sodium Level 132 Low 136-145 mEq/L LAB K(LOINC) Potassium Level 4.6 3.5-5.0 mEq/L LAB CL(LOINC) Chloride 98 98-110 mEq/L LAB CO2(LOINC) CO2 28 22-32 mEq/L LAB EBAL(LOINC) Electrolyte Balance 6.0 4.0-15.0 mEq/L LAB BUN(LOINC) BUN 12.0 8.0-22.0 mg/dL LAB CRE(LOINC) Creatinine Lvl (s) 0.52 0.50-1.20 mg/dL Result Comment: Testing perf ormed on [employer] analyzer using enzymatic creatinine methodology. LAB BC(LOINC) BUN/Creatinine Ratio 23.1 High 10.0-22.0 ratio LAB CA(LOINC) Calcium Lvl 9.9 8.7-10.4 mg/dL Performed By: #### TOREY, GFR , B12, BMP #### [address] [address] B12 Collected: 03/25/2024 1:50 PM Status: F Source: [facility] TYPE CODE TESTS RESULT OUT OF RANGE REFERENCE UNITS LAB B12(LOINC) Vitamin B12 Lvl 348 211-911 pg/mL Performed By: #### TOREY, GFR , B12, BMP #### [address] [address] .GFR Collected: 1:50 PM Status: F Source: [facility] TYPE CODE TESTS RESULT OUT OF RANGE REFERENCE UNITS LAB GFRAA(LOINC) GFR >60 ml/min/1. 73sqm Result Comment: GFR Population mean for , [...] Disease: Less than 15 mL/min/1.73 square meters LAB GFRNO(LOINC) GFR Non- >60 ml/min/1. 73sqm Result Comment: GFR Population mean for , [...] 15 mL/min/1.73 square meters Performed By: #### VIDH, GFR , B12, BMP #### [place] [address] LUPEN Observed: 03/04/2024 12:00 AM Status: COMPLETED Source: [facility] Telephone (HEMAWS) YURY MONROY ([id number]) 1950 F Date Time Provider Department 03/04/24 NISHA MENDEZ During your visit today, we recorded the following information about you: Yelitza Bartlett LPN 03/04/2024 3:05 PM Signed Patient contacted office c/o excessive sweating to bilateral axilla and under both breasts. Patient states this has been ongoing for about 1 year. She saw her recruiting administrator and was given prescription deodorant which has helped somewhat but she is still having issues and states still has sweating/dampness under both arms and breasts. Asking if radiation has caused this. Patient completed radiation in 2017. Requested appointment with Nisha for this issue. I advised patient to contact her recruiting administrator again. Informed patient I would ask Nisha and renetta patterson about this as well. ALDA Guthrie Darby, APRN.LUPE 03/07/2024 8:23 AM Signed Please advise pt. to follow up with PCP/derm. Thank you. Nisha Mendez APRN.Charlotte Snider LPN 03/07/2024 8:48 AM [...] 2 Tablespoonsful once daily. Unknown dosage - calcium/chondr/collag/glycosam (BEYOND BONE BROTH ORAL) Take by mouth. Bone Broth Collagen 1 Scoop per day (2 table spoons) - zoledronic acid (RECLAST) 5 mg/100 mL pgbk PREMIX piggyback Zoledronic Ghyj-Gnsstyla-Wtlre Active 1 EACH .Route ONCE 100 February 07, 2021 11:08am onceinfuse over 20 minutes - acetaminophen (TYLENOL EX STR RAPID RELEASE ORAL) Take 1,000 mg by mouth twice daily as needed. 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 Arianna Kevin PSS 02/22/2024 1:37 PM Signed CD READY FOR [facility] AT [facility] Allergies As of Date: 02/22/2024 Noted Allergy Reaction DULOXETINE 09/14/2019 2 - Rash Date Reviewed: 09/08/2023 Reviewed by: Laura Powell MA - Fully Assessed Reason for Visit: disk request [Other] Prescriptions as of 05/13/2024 - omeprazole magnesium (PRILOSEC ORAL) Take by mouth. - COLLAGEN MISC 2 Tablespoonsful once daily. Unknown dosage - calcium/chondr/collag/glycosam (BEYOND BONE BROTH ORAL) Take by mouth. Bone Broth Collagen 1 Scoop per day (2 table spoons) - zoledronic acid (RECLAST) 5 mg/100 mL pgbk PREMIX piggyback Zoledronic Gnnc-Lpdtyhvu-Pnfie Active 1 EACH .Route ONCE 100 February 07, 2021 11:08am onceinfuse over 20 minutes - acetaminophen (TYLENOL EX STR RAPID RELEASE ORAL) Take 1,000 mg by mouth twice daily as needed. 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 Electronically signed on: 02/05/2024 Airplane Cleaner: BRANDEE Transcribe Date/Time: Feb 04 2024 10:46A Dictated by: SHAHLA RIVERS MD This examination was interpreted and the report reviewed and electronically signed by: SHAHLA RIVERS MD on Feb 05 2024 10:17AM EST [id number] Observed: 02/04/2024 10:50 AM Status: COMPLETED Source: [facility] HNO ID: [id number] Author: RICARDO BAKER Mammo Tech Service: ? 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 Please file. Patient has not had [...] 12:07 PM Signed Patient notified. Transferred to [facility] to schedule mammogram. Erin Olguin RN Allergies As of Date: 01/13/2024 Noted Allergy Reaction DULOXETINE 09/14/2019 2 - Rash Date Reviewed: 09/08/2023 Reviewed by: Laura Powell MA - Fully Assessed Reason for Visit: Orders [681] Primary Visit Diagnosis:Encounter for screening mammogram for malignant neoplasm of breast [Z12.31] Order(s):DESIREE SCREENING W VIJI [[id number]] Order #: [id number] FUTURE Prescriptions as of 01/13/2024 - omeprazole magnesium (PRILOSEC ORAL) Take by mouth. - COLLAGEN MISC 2 Tablespoonsful once daily. Unknown dosage - calcium/chondr/collag/glycosam (BEYOND BONE BROTH ORAL) Take by mouth. Bone Broth Collagen 1 Scoop per day (2 table spoons) - zoledronic acid (RECLAST) 5 mg/100 mL pgbk PREMIX piggyback Zoledronic Mgmf-Sognipng-Bhztd Active 1 EACH .Route ONCE 100 February 07, 2021 11:08am onceinfuse over 20 minutes - acetaminophen (TYLENOL EX STR RAPID RELEASE ORAL) Take 1,000 mg by mouth twice daily as needed. 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 [...] Encounter Status:Closed by ERIN OLGUIN on 01/13/24 CBC Collected: 3:11 PM Status: F Source: [facility] MAIN TYPE CODE TESTS RESULT OUT OF RANGE REFERENCE UNITS LAB WBC(LOINC) WBC 6.5 4.5-10.8 10 3/mcL LAB RBCCT(LOINC) RBC 3.86 Low 4.10-5.30 10 6/mcL LAB HGB(LOINC) Hgb 12.4 12.0-16.0 G/dL LAB HCT(LOINC) Hct 36.7 34.0-46.0 % LAB MCV(LOINC) MCV 95.1 80.0-99.0 fL LAB MCH(LOINC) MCH 32.1 27.0-33.0 pg LAB MCHC(LOINC) MCHC 33.7 32.0-36.0 G/dL LAB RDW(LOINC) RDW 13.4 11.5-15.5 % LAB PLT(LOINC) Platelet 266 150-450 10 3/mcL LAB MPV(LOINC) MPV 7.8 6.6-10.5 fL Performed By: #### ADIFF, DH, CMP, TSH, CBC, GFR, ANEU, LIPID, B12 #### [place] [address] .AUTO DIFF Collected: 12/08/2023 3:11 PM Status: F Source: [facility] MAIN TYPE CODE TESTS RESULT OUT OF RANGE REFERENCE UNITS LAB MARY(LOINC) Neutrophil % 70.1 50.0-75.0 % LAB LYM(LOINC) Lymphocyte % 15.4 Low 20.0-40.0 % LAB MON(LOINC) Monocyte % 12.9 2.0-13.0 % LAB EO(LOINC) Eosinophil % 0.7 0.0-6.0 % LAB BAS(LOINC) Basophil % 0.9 0.0-2.5 % LAB ABLYM(LOINC) Lymphocyte, Absolute 1.0 0.9-4.3 10 3/mcL LAB CHAUNCEY(LOINC) Monocyte, Absolute 0.8 0.1-1.4 10 3/mcL LAB AEOS(LOINC) Eosinophil, Absolute 0.0 0.0-0.7 10 3/mcL LAB ABAS(LOINC) Basophil, Absolute 0.1 0.0-0.3 10 3/mcL Performed By: #### ADIFF, DH, CMP, TSH, CBC, GFR, ANEU, LIPID, B12 #### [place] [id number] .NEUABS Collected: 3:11 PM Status: F Source: [facility] MA[facility] TYPE CODE TESTS RESULT OUT OF RANGE REFERENCE UNITS LAB ANEU(LOINC) Neutrophil, Absolute 4.6 2.3-8.1 10 3/mcL Performed By: #### ADIFF, DH, CMP, TSH, CBC, GFR, ANEU, LIPID, B12 #### [place] [address] CMP Collected: 12/08/2023 3:11 PM Status: F Source: [facility] MA[facility] TYPE CODE TESTS RESULT OUT OF RANGE REFERENCE UNITS LAB GLU(LOINC) Glucose Level 90 82-115 mg/dL LAB NA(LOINC) Sodium Level 135 Low 136-145 mEq/L LAB K(LOINC) Potassium Level 4.5 3.5-5.0 mEq/L LAB CL(LOINC) Chloride 104 98-110 mEq/L LAB CO2(LOINC) CO2 27 22-32 mEq/L LAB EBAL(LOINC) Electrolyte Balance 4.0 4.0-15.0 mEq/L LAB BUN(LOINC) BUN 9.0 8.0-22.0 mg/dL LAB CRE(LOINC) Creatinine Lvl (s) 0.59 0.50-1.20 mg/dL Result Comment: Testing perf ormed on What[employer] Hot analyzer using enzymatic creatinine methodology. LAB BC(LOINC) BUN/Creatinine Ratio 15.3 10.0-22.0 ratio LAB CA(LOINC) Calcium Lvl 9.2 8.7-10.4 mg/dL LAB PROT(LOINC) Total Protein 6.4 5.7-8.2 G/dL Result Comment: Note - New Reference Range in effect 20 LAB ALB(LOINC) Albumin Level 3.6 3.2-4.8 G/dL LAB GLB(LOINC) Globulin 2.8 1.5-3.8 G/dL LAB AG(LOINC) A/G Ratio 1.3 0.9-1.6 ratio LAB BILT(LOINC) Bili Total 0.60 0.20-1.20 mg/dL Result Comment: Use of this assay is not recommended for patients undergoing treatment with eltrombopag due to the potential for falsely elevated results. LAB AP(LOINC) Alk Phos 57 38-126 U/L LAB AST(LOINC) AST/SGOT 19 8-34 U/L LAB ALT(LOINC) ALT/SGPT 12 10-49 U/L Performed By: #### ADIFF, DH, CMP, TSH, CBC, GFR, ANEU, LIPID, B12 #### [place] [address] TSH Collected: 3:11 PM Status: F Source: [facility] MA[facility] TYPE CODE TESTS RESULT OUT OF RANGE REFERENCE UNITS LAB TSH(LOINC) TSH 0.849 0.550-4.780 mIU/mL Result Comment: Note - New Reference Range in effect 19 Performed By: #### ADIFF, DH, CMP, TSH, CBC, GFR, ANEU, LIPID, B12 #### [place] [address] B12 Collected: 12/08/2023 3:11 PM Status: F Source: [facility] MA[facility] TYPE CODE TESTS RESULT OUT OF RANGE REFERENCE UNITS LAB B12(LOINC) Vitamin B12 Lvl 352 211-911 pg/mL Performed By: #### ADIFF, DH, CMP, TSH, CBC, GFR, ANEU, LIPID, B12 #### [place] [address] VIDH Collected: 3:11 PM Status: F Source: [facility] MA[facility] TYPE CODE TESTS RESULT OUT OF RANGE REFERENCE UNITS LAB VIDH(LOINC) Vit. D 25-Hydroxy 28.3 ng/mL Result Comment: Interpretive Values Based on Total 25(OH)D: Severe Deficiency <20 ng/mL Mild to Moderate Deficiency 20-30 ng/mL Optimum Levels 30-100 ng/mL Toxicity Possible >100 ng/mL Performed By: #### NAKIA DH, CMP, TSH, CBC, GFR, ANEU, LIPID, B12 #### [address] [address] .GFR Collected: 4 3:11 PM Status: F Source: [facility] MAIN TYPE CODE TESTS RESULT OUT OF RANGE REFERENCE UNITS LAB GFRAA(LOINC) GFR >60 ml/min/1. 73sqm Result Comment: GFR Population mean for , [...] Disease: Less than 15 mL/min/1.73 square meters LAB GFRNO(LOINC) GFR Non- >60 ml/min/1. 73sqm Result Comment: GFR Population mean for , [...] 15 mL/min/1.73 square meters Performed By: #### NAKIA, DH, CMP, TSH, CBC, GFR, ANEU, LIPID, B12 #### [address] [address] LIPID Collected: 12/08/2023 3:11 PM Status: F Source: [facility] MA[facility] TYPE CODE TESTS RESULT OUT OF RANGE REFERENCE UNITS LAB CHOL(LOINC) Cholesterol 216 High 50-199 mg/dL Result Comment: Cholesterol Reference Interval: Less than 200 Desirable 200-239 Borderline high risk 240 and above High risk LAB TRIG(LOINC) Triglycerides 76 3-149 mg/dL LAB HD(LOINC) HDL Cholesterol 85 High 40-59 mg/dL LAB LDL(LOINC) LDL Cholesterol 116 0-129 mg/dL Performed By: #### ADIFF, DH, CMP, TSH, CBC, GFR, ANEU, LIPID, B12 #### [place] [address] ALLERGIES DATE TYPE / CODE NAME / CODE REACTION SEVERITY SOURCE 09/14/2019 DRUG INGREDI/[id number](SN OMED CT) DULOXETINE RASH [facility] ENCOUNTERS ADMIT/DISCHARGE ACCOUNT NUMBER ADMITTING ENCOUNTER CLASS LOCATION SOURCE 08/18/2024/ 5 [id number] [facility] [place] [facility] 07/12/2024/ 5 [id number] [facility] [id number] [facility] 05/25/2024/ 5 [id number] [facility] 05/13/2024/ 5 [id number] Ambulatory [place] [facility] 04/28/2024/ 5 [id number] Ambulatory ABuilding:[facility], [facility] 03/25/2024/ 5 [id number] Ambulatory ABuilding:[facility] 03/17/2024 [id number] Ambulatory ABuilding:[facility] 03/17/2024/ 5 [id number] Ambulatory ABuilding:[facility] 02/04/2024/ 4 [id number] [facility] 12/08/2023/ 4 [id number] Ambulatory ABuilding:[facility], [facility] PAYERS ENCOUNTER GUARANTOR PAYER SUBSCRIBER SOURCE 08/18/2024 YURY ANGELES: [id number] JAMES SANDRA [address] [address]~cking2 005@[employer]~ [email or web address] el: (HP) Primary Insurance:MEDICARE PART B INSCOPolicy Number: [id number] Date:8341-40-04Ykqn Name:[facility] Administrators [address] [address]TQ: YURY ANGELES: [id number] JAMES SANDRA [address] [address]Ida: (HP) (WP) [facility] 08/18/2024 Secondary Insura nce:MISC INSURANCE SECONDARY INSCOPolicy Number: [id number] Date:6141-38-25Amsf Name:[facility] [address], [place] [address]VJ: YURY ANGELES: [id number] [place]AMES [place] [address]Cfy: (HP) (WP) [facility] 07/12/2024 Primary Insurance:MEDICARE A AND BPolicy Number: [id number] Date:6768-69-13Goya Name:Karol ANGELES: [id number] JAMES CONCEPCION [address] [address] [facility] 07/12/2024 Secondary Insurance:[employer] MEDICARE SUPPLEMENTPolicy Number: [id number] Date:8158-76-08Iqst Name:Iris BALDERASB: [id number] JAMES CONCEPCION [address] [place] [address] 06/14/2024 Primary Insurance:MEDICARE A AND BPolicy Number: [id number] Date:6197-78-20Umlv Name:Karol BALDERASB: [id number] JAMES CONCEPCION [id number] [place] [address] 06/14/2024 Secondary Insurance:[employer] MEDICARE SUPPLEMENTPolicy Number: [id number] Date:3734-22-82Vtxk Name:Iris ANGELES: [id number] JAMES CONCEPCION [id number] [place] [address] 05/25/2024 Primary Insurance:MEDICARE A AND BPolicy Number: [id number] Date:9509-65-12Ibar Name:Karol ANGELES: [id number] JAMES CONCEPCION [id number] [place] [address] 05/25/2024 Secondary Insurance:[employer] MEDICARE SUPPLEMENTPolicy Number: [id number] Date:1297-22-38Ifbf Name:Iris BALDERASLevar: [id number] JAMES CONCEPCION [address] [place] [address] 05/13/2024 YURY Collier KARTHIK: JAMES SCHROEDER [address] [address]~cking2 [email or web address]@[employer]~ [email or web address] el: () Primary Insurance:MEDICARE PART B INSCOPolicy Number: [id number] Date:1088-58-85Uzao Name:[facility] Mora9MARILEE Thapa [address]XL: YURY Amira KARTHIK: [id number] [address]AMES [address] [place] [address]Fbj: (HP) (WP) [facility] 05/13/2024 Secondary Insura nce:MISC INSURANCE SECONDARY INSCOPolicy Number: [id number] Date:5306-82-30Bxxb Name:[facility] [address], [place] [address]EN: YURY ANGELES: [id number] JAMES SANDRA [address] [address]Ppz: (HP) (WP) [facility] 04/28/2024 YURY ANGELES: [id number] JAMES SANDRA [address] [address]~cking2 005@[employer]~ [email or web address] el: (HP) Primary Insurance:MEDICARE PART B INSCOPolicy Number: [id number] Date:9994-84-98Gguh Name:[address] [address]KD: YURY ANGELES: [id number] JAMES SANDRA [address] [address]Ttl: (HP) (WP) [facility] 04/28/2024 Secondary Insura nce:MISC INSURANCE SECONDARY INSCOPolicy Number: [id number] Date:1820-36-59Jtks Name:[facility] [address], [place] [address]QM: YURY ANGELES: [id number] JAMES SANDRA [place]7DFRPTYMFR[place] [address]Kta: (HP) (WP) [facility] 03/25/2024 YURY ANGELES: [id number] JAMES SANDRA [address] [address]~cking2 [email or web address]@[employer]~ [email or web address] el: (HP) Primary Insurance:MEDICARE PART B INSCOPolicy Number: [id number] Date:7497-29-84Nexw Name:[facility] Administrators [address] [address]PF: YURY ANGELES: [id number] JAMES SCHROEDER [address] [address]Xld: (HP) (WP) [facility] 03/25/2024 Secondary Insura nce:MISC INSURANCE SECONDARY INSCOPolicy Number: [id number] Date:0169-23-56Onqe Name:[facility] [place], [place] [address]KV: YURY ANGELES: [id number] JAMES SCHROEDER [address] [address]Bke: (HP) (WP) [facility] 03/17/2024 YURY ANGELES: JAMES SCHROEDER [address] [address]~maluing2 [email or web address]@[employer]~ [email or web address] el: (HP) Primary Insurance:MEDICARE PART B INSCOPolicy Number: [id number] Date:5891-88-62Khkm Name:[facility] Administrators [address] [address]ZV: YURY ANGELES: [id number] JAMES SCHROEDER [address] [address]Pez: (HP) (WP) [facility] 03/17/2024 Secondary Insura nce:MISC INSURANCE SECONDARY INSCOPolicy Number: [id number] Date:4119-83-61Rmwr Name:[facility] [place] [address]13[address], [place] [address]ZW: YURY ANGELES: [id number] JAMES SCHROEDER [address] [address]Npv: (HP) (WP) [facility] 03/17/2024 YURY ANGELES: JAMES SCHROEDER [address] [address]~cking2 005@[employer]~ [email or web address] el: (HP) Primary Insurance:MEDICARE PART B INSCOPolicy Number: [id number] Date:1104-98-24Vjli Name:DIANELYS Gerardo [address] [address]VZ: YURY ANGELES: [id number] JAMES SCHRO[address]ER [address] [address]Ikf: (HP) (WP) [facility] 03/17/2024 Secondary Insura nce:MISC INSURANCE SECONDARY INSCOPolicy Number: [id number] Date:1607-42-58Iqzw Name:[facility] [place] [address]18[address], [place] [address]BB: YURY ANGELES: [id number] JAMES SCHROEDER [address] [address]Fho: (HP) (WP) [facility] 02/04/2024 Primary Insurance:MEDICARE A AND BPolicy Number: [id number] Date:7420-47-82Mldu Name:Karol ANGELES: [id number] JAMES CONCEPCION [address] [address] [facility] 02/04/2024 Secondary Insurance:[employer] MEDICARE SUPPLEMENTPolicy Number: [id number] Date:9085-04-28Rxaz Name:Iris ANGELES: [id number] JAEMS CONCEPCION [address] [place] [address] 12/08/2023 YURY BALDERASB: [id number] JAMES SCHROEDER [address] [address]~cking2 005@[employer]~ [email or web address] el: (HP) Primary Insurance:MEDICARE PART B INSCOPolicy Number: [id number] Date:1194-95-92Vvoz Name:DIANELYS Jeong [address] [place] [address]UX: YURY BALDERASB: [id number] JAMES SCHROEDER [address] [address]Qbn: (HP) (WP) [facility] 12/08/2023 Secondary Insura nce:MISC INSURANCE SECONDARY INSCOPolicy Number: [id number] Date:1648-36-17Iugz Name:[facility] [place] [address]689[address]P, [place] [address]ZB: YURY BALDERASB: [id number] JAMES SCHROEDER [address] [address]Zim: (HP) (WP) [facility]
[2024-11-21 08:14] VITALS: BP 173/83; PULSE 77; RESP 16; TEMP 37.1; O2SAT 100
[2024-11-21 08:23] VITALS: BMI 34.4
--- NOTE | 2024-11-21 08:33 | ED.VIS.LOWEX ---
HPI History of Present Illness HPI Narrative: Patient presents with right knee pain that has been getting worse over the past 2 days. Patient states it came on gradually. Patient states it has been constant. Patient denies any trauma or injury. Patient describes her pain as a dull ache. Patient states it radiates down her leg to the calf and anterior lower leg. Patient admits to some burning sensation in her lower leg. Patient states she was recently diagnosed with neuropathy. Patient states her pain is worse with bending her knee. Patient states she has been receiving some injections into her knee which has been helping. Patient states she called the orthopedic office this morning and was referred to the emergency department for possible DVT and pain control. Chief Complaint: Lower Extremity Injury Onset/Context/Timing Onset: Days (2) Context: Gradual Onset Timing: Continuous Quality of Pain: Dull Location: Right knee and lower leg Worsened by: Flexion Relieved by: Injections Associated Symptoms Associated Symptoms: Positive for Parasthesia; Negative for Weakness or Loss of Funtion PFSH PFSH Medical History Episode of syncope Influenza B Acute pharyngitis Burn of right upper extremity Atherosclerosis of coronary artery of [place] heart without angina pectoris Fibromyalgia Menopausal hot flushes Symptoms of gastroesophageal reflux Hypertension Hyperparathyroidism Paresthesia Skin cancer GERD (gastroesophageal reflux disease) Osteopenia Osteoarthritis Heart murmur Hormone deficiency High cholesterol Headache Gastrointestinal problem Cataracts, bilateral Breast cancer Breast lump UTI (urinary tract infection) Back problem Arthritis Hx of breast cancer Home Medications ?Medication ?Instructions ?Recorded ?Last Taken ?Type acetaminophen 500 mg tablet 1,000 mg PO BID PRN Pain 06/10/23 11/20/24 History (Tylenol Extra Strength) cyanocobalamin (vitamin B-12) 100 mcg subcut QMONTH 04/05/24 11/16/24 History 1,000 mcg/mL injection solution cholecalciferol (vitamin D3) 1,250 1,250 mcg PO QWEEK #4 caps 09/23/24 11/14/24 Rx mcg (50,000 unit) capsule tramadol 50 mg tablet 50 mg PO Q4H PRN PRN Pain 3 days 11/21/24 Unknown Rx #20 tabs Allergy/AdvReac Type Severity Reaction Status Date / Time duloxetine (From Cymbalta) AdvReac Mild dizziness Verified 11/21/24 08:14 Family History Father Heart disease Mother Heart disease Osteoporosis Thyroid disorder Brother Heart disease Hypertension Hypercholesterolemia Daughter Cancer Sister Arthritis Hypertension Hypercholesterolemia Osteoporosis Thyroid disorder Surgical History History of left heart catheterization (08/16/20) History of endoscopy History of colonoscopy History of lumpectomy Hx of cataract surgery H/O: hysterectomy Social History Smoking Status: Never smoker alcohol intake: never substance use type: does not use what type of physical activity do you participate in: walking and weight training frequency: 1-2 times per week ROS ROS ED Constitutional Constitutional ED: Denies chills or fever(s) Eyes Eyes: Denies blurry vision or change in vision ENT ENT ED: Denies rhinorrhea or sore throat Cardiovascular Cardiovascular: Denies chest pain or palpitations Respiratory/Chest Respiratory/Chest: Denies cough or dyspnea Gastrointestinal Gastrointestinal: Denies nausea or vomiting Genitourinary Genitourinary ED: Denies dysuria or hematuria Musculoskeletal Musculoskeletal: Reports back pain and neck pain Integumentary Reports rash; Denies abscess Neurologic Neurologic: Denies headache(s) or weakness Allergic/Immunologic Allergic/Immunologic ED: Denies mouth swelling or urticaria EXAM Physical Exam Const Vital Signs: 11/21/24 08:14 Temperature 98.8 F Temperature Source Oral Pulse Rate 77 Respiratory Rate 16 Blood Pressure 173/83 H Blood Pressure Mean 113 Pulse Ox 100 Oxygen Delivery Method Room Air Positive well nourished and well developed General Appearance ED: well developed and NAD HEENT Reports moist mucous membranes Neck supple Extremity Extremity Narrative: There is tenderness over the posterior lateral aspect of the right knee. There is no bony crepitance or step-off. There is a mild joint effusion noted. There is some mild edema. Range of motion was limited in flexion of the right knee secondary to pain. There is no laxity appreciated. Varus and valgus stress test were negative. Mag's test was negative. There is a good pedal pulse noted. There is minimal calf tenderness. Sensation is intact to light touch bilaterally in the lower extremities. Neuro oriented x3, CN's II-XII intact bilaterally, moves all extremities and no sensory deficits noted Sensorium / Orientation: alert Motor Exam: strength 5/5 throughout Psych mental status grossly normal MDM MDM MDM Narrative Medical decision making narrative: Differential diagnosis includes DVT, osteoarthritis, occult fracture, muscle strain, neuropathy, and fibromyalgia. Venous duplex of the right lower extremity will be obtained to assess for DVT. X-rays of the right knee will be obtained to assess for occult fracture and osteoarthritis. History & Record Review Additional record(s) reviewed:: Prior outpatient record, Prior ED visit and Prior labs Radiography Diagnostic Testing: Clinical Impression(s) from Imaging Studies Knee X-Ray 11/21/24 08:48 IMPRESSION: Degenerative change greatest at the medial and patellofemoral compartments. Small joint effusion. Reading Location: [id number] X-rays of the right knee were obtained. There are 4 views. On my independent interpretation, there is no acute fracture or dislocation noted. There are degenerative changes noted over the medial compartment. Radiologist also interpreted the x-rays and agrees. Venous duplex of the right lower extremity was obtained. There is no evidence of DVT. Treatment and Re-Evaluation Narrative: Patient was given a dose of tramadol here. Patient was feeling better on reevaluation. Patient was instructed to ice and elevate the right knee. Patient was given a prescription for tramadol. Patient was instructed to follow-up with her orthopedic surgeon in 5 to 7 days. Patient was instructed to return if worse in any way. Patient understood and was agreeable with the plan. All questions were answered. Discharge Plan Triage Chief Complaint: Lower Extremity Injury ED Provider: Jefry Mir Dx/Rx/DC Orders Clinical Impression: Acute pain of right knee, Osteoarthritis of right knee Instructions: ED Knee Sprain, ED Osteoarthritis Prescriptions: New tramadol 50 mg tablet 50 mg PO Q4H PRN PRN (Reason: Pain) 3 Days Qty: 20 0RF No Action acetaminophen [Tylenol Extra Strength] 500 mg tablet 1,000 mg PO BID PRN (Reason: Pain) cyanocobalamin (vitamin B-12) 1,000 mcg/mL solution 100 mcg subcut QMONTH cholecalciferol (vitamin D3) 1,250 mcg (50,000 unit) capsule 1,250 mcg PO QWEEK Qty: 4 4RF Primary Care Provider: Yuval Woods Referrals: Jeovanny Moore DO [Med Staff - Active Staff, Orthopedics] - 5-7 Days Yuval Woods MD [Primary Care Provider, Internal Medicine] - 5-7 Days Print Language: Belgian Disposition Disposition: Home, Self Care
--- NOTE | 2024-11-21 08:48 | RAD_ITS ---
PROCEDURE: KNEE 4 OR MORE VIEWS 11/21/2024 REASON FOR EXAM: INJURY/PAIN TECHNIQUE: Procedure Code: RADKN Modality: DX Procedure: KNEE 4 OR MORE VIEWS Laterality: Right COMPARISON: September 05, 2024 FINDINGS: Bones: No fracture. Joints: Severe joint space narrowing medial compartment with marginal endplate spurring. [id number] joint space narrowing and spurring mainly at the medial facet of the patellofemoral joint. Effusion: Small suprapatellar joint effusion. Soft tissues: Mild atherosclerotic changes. RAD/Knee 4 or More Views IMPRESSION: Degenerative change greatest at the medial and patellofemoral compartments. Sm all joint effusion. Reading Location: [id number]
--- NOTE | 2024-11-21 08:48 | VDLE_ITS ---
Reason For Study Reason For Study: RLE Pain RIGHT GSV is normal. CFV is compressible, spontaneous, phasic, competent and demonstrates normal augmentation. FV is compressible, spontaneous, phasic, competent and demonstrates normal augmentation. POP V is compressible, spontaneous, phasic, competent and demonstrates normal augmentation. T/P Trunk is compressible. PTV is compressible. RT PerV is compressible. Procedure This is a venous duplex using B-mode, color flow and spectral Doppler. Exam performed portable in ED. The exam was diagnostic. A preliminary report was called and/or faxed to Dr. Mir. VL/Venous Duplex US, Unilateral Interpretation Summary Deep veins of the right lower extremity are patent and compressible segmentally . There is no evidence of right lower extremity deep vein thrombosis. Valvular competence appears intact within the p roximal deep venous system on the right . The right great saphenous vein appears patent and compressible segmentally. Ordering Physician: Jefry Mir Referring Physician: Irving Collins Performed By: Clifford Elliott RVT
[2024-11-21 10:30] VITALS: BP 134/78; PULSE 78; RESP 16; TEMP 37.1; O2SAT 99
== END 2024-11-21 10:31 | disposition home or self-care (01) ==
PROVIDERS: Emergency Provider Emergency Medicine; PCP Internal Medicine; Visit Provider Emergency Medicine
DX: M17.11 Unilateral primary osteoarthritis, right knee (principal); I25.10 Atherosclerotic heart disease of native coronary artery without angina pectoris; M79.661 Pain in right lower leg
CPT/HCPCS: 73564; 93971; 99282

== ENCOUNTER 2024-12-11 09:27 | Emergency (ER) | payer MEDICARE, OTHER, SELFPAY ==
[2024-12-11 09:27] VITALS: BP 146/85; PULSE 86; RESP 18; TEMP 36.8; O2SAT 99
--- OUTSIDE RECORDS SUMMARY | 2024-12-11 10:04 | XMS RPT_ITS | CCD ---
Author Organization [facility] Care Team Providers Care Rolled Gold Plater Name Role Phone JONNY RETANA, DR ANGEL Menjivar Primary Care Physician Jonny, Dr. Barakat Primary Care Provider Jonny, Dr. Barakat Referring Provider [phone] Cade Monroy Attending Provider 1([facility])[phone] Lawrence RETANA MD, Daesung Unavailable 1([facility])[phone] Angel Fuller MD Primary Care Provider 1([facility])[phone] Jonny, Dr. Barakat Primary Care Provider 1([facility])[phone] Jonny, Dr. Barakat Referring Provider 1([facility])[phone] Cade Monroy Attending Provider 1([facility])[phone] Beulah Bain Referring Provider 1([facility])[phone] Beulah Bain Other Provider Dr. Esvin Platt Attending Provider Dr. Erik Jones Attending Provider [phone] Marco Obrien Attending Provider 1([facility])[phone] Lawrence RETANA MD, Daesung Unavailable Angel Fuller MD Primary Care Provider Lawrence RETANA MD, Daesung Unavailable Angel Fuller MD Primary Care Provider 1([phone] Jonny, Dr. Barakat Primary Care Provider Jonny, Dr. Barakat Referring Provider 1([facility])[phone] Cade Monroy Attending Provider 1([facility])[phone] ANGEL FULLER MD Primary Care Physician ([facility])[phone] Dr. Robert Munguia Attending Provider Vanessa LACE WINDER.AUTOMOTIVE SERVICE ASSISTANT, [place] Unavailable Irena White Unavailable Unavailabl el Mario Fabian MD, Badie Unavailable Lorenzo Montana Unavailable Mario Fabian MD, Millie Unavailable Mario Fabian MD, Millie Unavailable Mario Fabian MD, Millie Unavailable Jonny, Dr. Barakat Primary Care Provider Nam, Dr. Barakat Referring Provider Dr. Erik Jones Attending Provider [phone] Dr. Marco Obrien Attending Provider [phone] Cade Monroy Attending Provider ILANA TAVAREZ MD Attending Unavailable NAM, ANGEL Primary Care Unavailable ILANA TAVAREZ MD Attending Unavailable NAM, ANGEL Primary Care Unavailable FISH LACE WINDER-AUTOMOTIVE SERVICE ASSISTANT, NAHOMI Attending Unavailab le NAM, ANGEL Primary Care Unavailable LAUREN LACE WINDER-AUTOMOTIVE SERVICE ASSISTANT, THONG Mayen Attending Unavai lable NAM, ANGEL Primary Care Unavailable VIRGINIA Arriaga Attending Provider Jonny, Dr. Barakat Primary Care Provider Jonny, Dr. Barakat Referring Provider [phone] Erik Jones Attending Provider [phone] Marco Obrien Attending Provider [phone] Cade Monroy Attending Provider [phone] VIRGINIA Arriaga Attending Provider Lawrence RETANA, Yue Unavailable Angel Fuller MD Primary Care Provider Jonny, Dr. Barakat Primary Care Provider Jonny, Dr. Barakat Referring Provider Dr. Erik Jones Attending Provider [phone] Dr. Marco Obrien Attending Provider JONNY RETANA, DR ANGEL Menjivar Primary Care Physician JONNY RETANA, DR ANGEL Menjivar Primary Care Unavailable NEVILLE LACE WINDER-AUTOMOTIVE SERVICE ASSISTANT, SHAHLA Attending Unavail sue FULLER MD, DR ANGEL Menjivar Primary Care Unavailable LAUREN LACE WINDER-AUTOMOTIVE SERVICE ASSISTANT, THONG Mayen Attending Greg FULLER MD, DR ANGEL Menjivar Primary Care Unavailable LAUREN LACE WINDER-AUTOMOTIVE SERVICE ASSISTANT, THONG Mayen Attending Greg LOZADA LACE WINDER-AUTOMOTIVE SERVICE ASSISTANT, SHAHLA Attending Unavail sue FULLER MD, DR ANGEL Menjivar Primary Care Unavailable ALFRED LACE WINDER-AUTOMOTIVE SERVICE ASSISTANT, PAVEL Attending Greg FULLER MD, DR ANGEL Menjivar Primary Care Unavailable Jonny RETANA, Dr. Barakat Primary Care Provider SHAHLA LOZADA Attending Provider SHAHLA LOZADA Referring Provider Jonny RETANA, Dr. Barakat Referring Provider King LAINEY, Dr. Mohamud Attending Provider Adelaida HERPETOLOGY TEACHER-C, Luis Daniel Shoemaker Attending Provider Jean Pierre JACKSON, Dr. White Attending Provider Jean Pierre JACKSON, Dr. White Emergency Provider Mago Caballero Attending Provider Micah RETANA, Dr. Lara Attending Provider Mago Caballero Referring Provider Linda RETANA, Dr. Cruz Attending Provider Jose Luis HERPETOLOGY TEACHER-CLinda Attending Provider [phone] Jose Luis HERPETOLOGY TEACHER-CLinda Referring Provider [phone] King LAINEY, Dr. Mohamud Referring Provider Mosherry HERPETOLOGY TEACHER-C, Ang Attending Provider Dr. Easton Hanson DO Attending Provider Dr. Easton Hanson DO Emergency Provider SHAHLA KEATING Attending Provider [phone] SHAHLA KEATING Referring Provider Dr. Julien Holedr DO Attending Provider Gallo JACKSON, Dr. Victoria Emergency Provider Jonny RETANA, Dr. Barakat Primary Care Provider Jonny RETANA, Dr. Barakat Referring Provider King LAINEY, Dr. Mohamud Attending Provider [facility] HERPETOLOGY TEACHER-C, [facility] Attending Provider [facility] DO, Dr. White Attending Provider [facility] JACKSON, Dr. White Emergency Provider Mago Caballero Attending Provider Micah RETANA, Dr. Lara Attending Provider Mago Caballero Referring Provider Linda RETANA, Dr. Cruz Attending Provider Dr. Anthony Mckeon MD Referring Provider Jose Luis HERPETOLOGY TEACHER-C, Linda Attending Provider Jose Luis HERPETOLOGY TEACHER-C, Linda Referring Provider King LAINEY, Dr. Mohamud Referring Provider [place] HERPETOLOGY TEACHER-C, Ang Attending Provider Dr. Easton Hanson DO [...] King LAINEY, Dr. Mohamud Attending Provider Oscar JACKSON, Dr. Up Attending Provider Jonny RETANA, Dr. Barakat Primary Care Provider Mago Caballero Attending Provider Jonny RETANA, Dr. Barakat Referring Provider Jonny RETANA, Dr. Barakat Primary Care Provider Jonny RETANA, Dr. Barakat Primary Care Provider Mago Caballero Attending Provider Jonny RETANA, Dr. Barakat Primary Care Provider Valentin JACKSON, Dr. Mccormack Attending Provider Valentin JACKSON, Dr. Mccormack Emergency Provider Jonny RETANA, Dr. Barakat Referring Provider Linda RETANA, Dr. Cruz Attending Provider Linda RETANA, Dr. Cruz Referring Provider Jonny RETANA, Dr. Barakat Primary Care Provider [phone] JONNY RETANA, DR ANGEL Menjivar Primary Care Unavailable LASHELL BARCENAS, NAHOMI Attending Unavailab rogelio BARCENAS, NAHOMI Attending Unavailab rogelio FULLER MD, DR ANGEL Menjivar Primary Care Unavailable Jonny RETANA, Dr. Barakat Primary Care Provider [phone] Gallo JACKSON, Dr. Victoria Attending Provider Gallo JACKSON, Dr. Victoria Emergency Provider Jonny RETANA, Dr. Barakat Primary Care Provider [phone] Jonny RETANA, Dr. Barakat Referring Provider Micah RETANA, Dr. Lara Attending Provider Jonny RETANA, Dr. Barakat Primary Care Provider [phone] Linda RETANA, Dr. Cruz Attending Provider Linda RETANA, Dr. Cruz Referring Provider Jonny RETANA, Dr. Barakat Primary Care Provider [phone] Linda RETANA, Dr. Cruz Attending Provider Linda RETANA, Dr. Cruz Referring Provider Jonny RETANA, Dr. Barakat Primary Care Provider [phone] Jonny RETANA, Dr. Barakat Referring Provider Oscar JACKSON, Dr. Up Attending Provider Linda RETANA, Dr. Cruz Attending Provider Linda RETANA, Dr. Cruz Referring Provider Jonny RETANA, Dr. Barakat Primary Care Physician [phone] Jonny RETANA, Dr. Barakat Referring Provider Dr. Jeovanny Moore DO Attending Physician Dr. Julien Holder DO Attending Physician Dr. Julien Holder DO Emergency Department Physi joel Linda RETANA, Dr. Cruz Attending Physician Linda RETANA, Dr. Cruz Referring Provider Micah RETANA, Dr. Lara Attending Physician Jonny RETANA, Dr. Barakat Primary Care Physician Jonny RETANA, Dr. Barakat Referring Provider Dr. Jeovanny Moore DO Attending Physician [phone] Dr. Jefry Mir DO Emergency Department Physi joel Dr. Jefry Mir DO Attending Physician PRISCA RIVERA Referring Unavail able JONNY, ANGEL Menjivar Primary Care Unavailable JONNY, ANGEL Menjivar Primary Care Unavailable KARIE MEYER Attending Unavailable JONNY, ANGEL Menjivar Primary Care Unavailable JONNY, ANGEL Menjivar Primary Care Unavailable JONNY, ANGEL K Primary Care Unavailable Baddour, Anthony Attending Unavailable Nam, Angel Primary Care Unavailable Baddour, Anthony Referring Unavailable Nam, Angel Referring Unavailable Nam, Angel Primary Care Unavailable Cade Monroy Attending Unavailable Nam, Angel Primary Care Unavailable Jefry Mir Attending Unavailable Ruslan Guzman Attending Unavailable Nam, Angel Primary Care Unavailable Baddour, Anthony Consulting Unavailable Nam, Angel Primary Care Unavailable AhmadShakeel Attending Unavailable Baddour, Anthony Referring Unavailable Baddour, Anthony Referring Unavailable Baddour, Anthony Consulting Unavailable Nam, Angel Primary Care Unavailable Deloris, Heathermad Attending Unavailable Nam, Angel Referring Unavailable Borruso, Jeovanny Attending Unavailable Nam, Angel Primary Care Unavailable Borruso, Jeovanny Attending Unavailable Baddour, Anthony Attending Unavailable Micah, Marco Attending Unavailable Nam, Angel Primary Care Unavailable Borruso, Jeovanny Attending Unavailable Micah, Marco Attending Unavailable Baddour, Anthony Attending Unavailable Nam, Angel Referring Unavailable Nam, Angel Primary Care Unavailable Baddour, Anthony Attending Unavailable Baddour, Anthony Attending Unavailable Baddour, Anthony Referring Unavailable Nam, Angel Primary Care Unavailable Nam, Angel Referring Unavailable Borruso, Jeovanny Attending Unavailable Nam, Angel Primary Care Unavailable Baddour, Anthony Referring Unavailable Baddour, Anthony Attending Unavailable Nam, Angel Referring Unavailable Luis Daniel Son Attending Unavailable Nam, Angel Primary Care Unavailable Baddour, Anthony Referring Unavailable Baddour, Anthony Attending Unavailable Nam, Angel Primary Care Unavailable Baddour, Anthony Referring Unavailable Baddour, Anthony Attending Unavailable Nam, Angel Primary Care Unavailable Nam, Angel Referring Unavailable Borruso, Jeovanny Attending Unavailable Nam, Angel Primary Care Unavailable Nam, Angel Primary Care Unavailable OzerLinda Attending Unavailable BordnerMariely Referring Unavailable TACHO, NARIMAN Referring Unavailable Nam, Angel Primary Care Unavailable TACHO, NARIMAN Attending Unavailable Baddour, Anthony Attending Unavailable Nam, Angel Primary Care Unavailable Baddour, Anthony Referring Unavailable Baddour, Anthony Referring Unavailable Baddour, Anthony Attending Unavailable Nam, Angel Primary Care Unavailable Baddour, Anthony Attending Unavailable Baddour, Anthony Referring Unavailable Nam, Angel Primary Care Unavailable Mago Macdonald Attending Unavailable TorresMago Referring Unavailable Nam, Angel Primary Care Unavailable Porfirio, Cade Attending Unavailable Porfirio, Cade Referring Unavailable TACHO, NARIMAN Referring Unavailable Nam, Angel Primary Care Unavailable ROSSANA TITUSN Attending Unavailable Anthony Mckeon Attending Unavailable Nam, Angel Primary Care Unavailable Baddour, Anthony Referring Unavailable Baddogloria, Anthony Attending Unavailable Nam, Angel Primary Care Unavailable Linda, Anthony Referring Unavailable Jeovanny Moore Admitting Unavailable Jeovanny Moore Attending Unavailable Nam, Angel Primary Care Unavailable Jeovanny Moore Attending Unavailable Devinruso, Jeovanny Referring Unavailable Nam, Angel Primary Care Unavailable Nam, Angel Primary Care Unavailable Easton Hanson Attending Unavailable Nam, Angel Primary Care Unavailable Christopher Greenfield Attending Unavailabl e Julien Holder Attending Unavailable Nam, Angel Primary Care Unavailable Nam, Angel Primary Care Unavailable Julien Holder Attending Unavailable Nam, Angel Primary Care Unavailable Easton Hanson Attending Unavailable Anthony Mckeon Attending Unavailable Nam, Angel Referring Unavailable Nam, Angel Primary Care Unavailable Nam, Angel Referring Unavailable Nam, Angel Primary Care Unavailable Jeovanny Moore Attending Unavailable Nam, Angel Referring Unavailable Nam, Angel Primary Care Unavailable Mago Macdonald Attending Unavailable Jodidogloria, Anthony Attending Unavailable Nam, Angel Primary Care Unavailable Baddour, Anthony Referring Unavailable Nam, Angel Referring Unavailable Nam, Angel Primary Care Unavailable Ang Skag[place] Attending Unavailable Nam, Angel Referring Unavailable Mago Macdonald Attending Unavailable Nam, Angel Primary Care Unavailable Nam, Angel Referring Unavailable BorJeovanny almendarez Attending Unavailable Nam, Angel Referring Unavailable Jeovanny Moore Attending Unavailable Nam, Angel Primary Care Unavailable Allergies Allergy Classification Reported Allergen(s) Allergy Type Date of Onset Reaction(s) Facility DULoxetine (1 source) DULoxetine Drug Allergy 09-14-2019 [facility] (20 sources) DULoxetine; Translations: [DULOXETINE] Drug Allergy 09-14-2019 [facility] (1 source) DULoxetine Drug Allergy 11-23-2024 [facility] Repository Medications Current Medications Medication Drug Class(es) Dates Sig (Normalized) Sig (Original) acetaminophen 500 mg oral tablet (20 sources) Start: 06-10-2023 take 2 tablets by mouth twice daily as needed for pain Acetaminophen (Tylenol Extra Strength) 500 mg tablet Active 1000 mg PO TWICE A DAY as needed for Pain June 10, 2023 1:14pm Complies with drug therapy Start: 11-22-2020 End: 06-10-2023 take 1 tablet [...] 0 Refill(s) Start Date: 05/27/21 Status: Ordered Awdion (4 sources) Start: 01-11-2021 Awdion Active PO January 11, 2021 10:55am Start: 01-11-2021 Utel co llegen Active PO January 11, 2021 12:00am BONE BROTH PROTEIN CHICKEN (4 sources) Start: 09-21-2020 BONE BROTH PRO TEIN CHICKEN Active PO September 21, 2020 8:55am Start: 09-21-2020 BONE BROTH PRO TEIN CHICKEN Active PO September 20, 2020 11:00pm cholecalciferol 1.25 mg oral capsule (20 sources) Vitamin D Start: 04-05-2024 End: 09-23-2024 take 1 capsule by mouth every week Cholecalciferol (Vitamin D3) 1,250 mcg (50,000 unit) capsule Active 1250 ug PO EVERY WEEK 4 September 23, 2024 1:41pm Complies with drug therapy Start: 06-10-2023 End: 08-06-2023 take 1 capsule [...] 2020 1:00am May 11, 2023 3:59pm chrondrotin (20 sources) Start: 02-07-2021 chrondrotin Ac tive PO February 07, 2021 9:40am Start: 02-07-2021 End: 02-06-2022 chrondrotin Discontinued PO 0 February 07, 2021 1:00am February 06, 2022 [...] Active PO February 07, 2021 12:00am D3K (20 sources) Start: 09-21-2020 D3K Active PO September 21, 2020 8:50am Start: 09-21-2020 End: 05-11-2023 D3K Discontinued PO 0 August 252020 12:00am May 11, 2023 3:59pm Start: 09-21-2020 End: 05-11-2023 D3K Discontinued PO August 11:00pm May 11, 2023 2:59pm Start: 09-21-2020 End: 05-11-2023 D3K Discontinued PO August 12:00am May 11, 2023 3:59pm Start: 09-21-2020 D3K Active PO September 20, 2020 11:00pm E+ (20 sources) Start: 01-27-2020 E+ Active 2 TA BLET PO January 27, 2020 12:49pm Start: 01-27-2020 End: 02-06-2022 E+ Discontinued 2 {tbl} PO 0 January 27, 2020 1:00am February 06, 2022 [...] 2022 12:00am hydroCHLOROthiazide 25 mg oral tablet (20 sources) Thiazide Diuretic Start: 01-27-2024 hydroCHLOROthiazide 25 mg oral tablet Dose : 25 mg = 1 tab(s), Oral, qDay, # 30 tab(s), 1 Refill(s), Pharmacy: [facility], 163.6, cm, 01/27/24 11:22:00 EST, Height, kg, 01/27/24 11:22:00 EST, Dosing Weight Start Date: 01/27/24 Status: Ordered Quantity: 30.0 Unit: tab(s) Repeat number: 2 Start: 05-11-2023 End: 07-10-2023 take 1 tablet by mouth once daily Hydrochlorothiazide 12.5 mg tablet Discontinued 12.5 mg PO DAILY May 11, 2023 12:00am July 10, 2023 11:30am K2 Plus D3 oral tablet (6 sources) Start: 06-01-2020 take 1 tablet by mouth once daily K2 Plus D3 oral tablet 1 tab, Oral, Daily, 0 Refill(s) Start Date: 06/01/20 Status: Ordered Repeat number: 1 Start: 06-01-2020 take 1 tablet by hayder th once daily K2 Plus D3 oral tablet 1 tab, Oral, Daily, 0 Refill(s) Start Date: 06/01/20 Status: Ordered llyaluronic acid (20 sources) Start: 02-07-2021 llyaluronic ac id Active PO February 07, 2021 9:41am Start: 02-07-2021 End: 02-06-2022 llyaluronic acid Discontinue d PO 0 February 07, 2021 1:00am February 06, 2022 [...] hour prior to bone marrow biopsy. omega 4-zbc-avw-fish oil 290 mg-430 mg-1.4 gram capsule (11 sources) Start: 02-10-2020 omega 5-wtb-ynj-fish oil 290 mg-430 mg-1.4 gram capsule Active CAP PO February 10, 2020 10:40am Start: 02-10-2020 End: 02-06-2022 omega 1-tcw-arm-fish oil 290 mg-430 mg-1.4 gram capsule Discontinued CAP PO February 10, 2020 1:00am February 06, 2022 9:49am Start: 02-10-2020 End: 02-06-2022 omega 4-fcd-mum-fish oil 290 mg-430 mg-1.4 gram capsule Discontinued CAP PO February 10, 2020 12:00am February 06, 2022 8:49am omega3 1,000 lp-qcb-lwf-othe r wl6o-vsnr oil 1,400 mg capsule,delay rel (11 sources) Start: 02-10-2020 omega3 1,000 m d-pfe-sxz-other ba5z-jtjq oil 1,400 mg capsule,delay rel Active CAP PO February 10, 2020 10:40am Start: 02-10-2020 End: 02-06-2022 omega3 1,000 kx-uqo-wjd-othe r lb3r-meuz oil 1,400 mg capsule,delay rel Discontinued CAP PO February 10, 2020 1:00am February 06, 2022 9:49am Start: 02-10-2020 End: 02-06-2022 omega3 1,000 jx-hdi-ade-othe r wm0l-cgcb oil 1,400 mg capsule,delay rel Discontinued CAP PO February 10, 2020 12:00am February 06, 2022 8:49am probiotic pro (20 sources) Start: 09-21-2020 probiotic pro Active PO September 21, 2020 8:54am Start: 09-21-2020 End: 02-06-2022 probiotic pro Discontinued P O 0 September 21, 2020 12:00am February 06, 2022 9:49am Start: 09-21-2020 End: 02-06-2022 probiotic pro Discontinued P O September 21, 2020 12:00am February 06, 2022 9:49am Start: 09-21-2020 End: 02-06-2022 probiotic pro Discontinued P O September 20, 2020 11:00pm February 06, 2022 8:49am sulfamethoxazole 800 mg / trimethoprim 160 mg oral tablet (2 sources) Dihydrofolate Reductase Inhibitor Antibacterial, Sulfonamide Antimicrobial Start: 06-13-2023 End: 06-20-2023 take 1 tablet by mouth twice daily sulfamethoxazole-trimethoprim (BACTRIM DS) 800-160 mg per tablet Take [...] hayder th twice daily for 3 days. traMADol hydrochloride 50 mg oral tablet (3 sources) Opioid Agonist Start: 11-21-2024 take 1 tablet by mouth every four hours as needed for pain Tramadol 50 mg tablet Active 50 mg PO EVERY 4 HOURS NEEDED as needed for Pain 20 3 0 November 21, 2024 12:00am Complies with drug therapy Start: 11-21-2024 take 1 tablet by mouth every f our hours as needed for pain Vitamin B Complex (B Complex-Vitamin B12) tablet [...] SC EVERY MONTH April 05, 2024 1:00am Complies with drug therapy Start: 05-11-2023 End: 08-06-2023 take 1 capsule by mouth once daily Cyanocobalamin (Vitamin B-12) 1,000 mcg capsule Discontinued 1000 ug PO DAILY May 11, 2023 12:00am August 06, 2023 1:07pm Start: 02-26-2021 Vitamin B12 0 Refill(s) Start Date: 02/26/21 Status: Ordered Repeat number: 1 Start: 02-26-2021 Vitamin B12 0 Refill(s) Start Date: 02/26/21 Status: Ordered Vitamin D3 1250 mcg (50,000 intl units) oral capsule (1 source) Start: 05-03-2024 take 1 capsule by mouth every week Vitamin D3 1250 mcg (50,000 intl units) oral capsule TAKE 1 CAPSULE BY MOUTH ONCE A WEEK Start Date: 05/03/24 Status: Ordered Repeat number: 1 vitamin k2 0.04 mg oral tablet (4 [...] mg tablet Discontinued 2.5 mg PO DAILY 30 July 10, 2023 1:13pm August 06, 2023 1:06pm Dose decreased today, pills crumble when cut Start: 06-26-2023 End: 07-10-2023 take 1 tablet by mouth once daily Amlodipine 5 mg tablet Discontinued 5 mg PO DAILY 30 11 June 26, 2023 12:00am July 10, 2023 11:29am amoxicillin 500 mg oral capsule (20 sources) Penicillin-class Antibacterial Start: 03-09-2023 End: 03-19-2023 take 1 capsule by mouth three times daily Amoxicillin 500 mg capsule Discontinued 500 mg PO THREE TIMES A DAY 30 10 0 March 09, 2023 1:00am March 18, 2023 1:00am March 19, 2023 1:05am amoxicillin 875 mg / clavulanate 125 mg oral tablet (20 sources) Penicillin-class Antibacterial Start: 03-06-2024 End: 03-14-2024 Amoxicillin-Pot Clavulanate 875-125 mg tablet Discontinued 1 {tbl} PO TWICE A DAY 14 7 0 March 06, 2024 1:00am March 12, 2024 1:00am March 14, 2024 1:10am Vit D3-Vit Q-Aioebuxyq-Kgta (20 sources) Vitamin D, Non-Standardized Food Allergenic Extract, Non-Standardized Plant Allergenic Extract Start: 04-04-2024 End: 07-29-2024 Vit D3-Vit G-Ostbzjiki-Mmus 306-839-55-370 skrj-zdi-as-mg tablet Discontinued 1 {tbl} PO daily April 04, 2024 1:00am July 29, 2024 11:15am Start: 04-04-2024 Vit D3-Vit K-B erberine-Hops 612-159-05-370 jjyg-ggo-vf-mg tablet Active 1 {tbl} PO daily April 04, 2024 1:00am Start: 04-04-2024 Vit D3-Vit K-B erberine-Hops 310-973-75-370 wcwf-zbe-ng-mg tablet Active 1 {tbl} PO daily April 04, 2024 12:00am Bone Broth (5 sources) Start: 08-16-2020 Bone Broth Bon e Broth, 2 tablespoons, Oral, BID, 0 Refill(s), 58.4 Start Date: 08/16/20 Status: Ordered Repeat number: 1 Start: 08-16-2020 Bone Broth Bon e Broth, 2 tablespoons, Oral, BID, 0 Refill(s), 58.4 Start Date: 08/16/20 Status: Ordered calcium carbonate 1500 mg oral tablet (20 sources) Start: 10-01-2013 End: 01-27-2020 take 2 tablets by mouth once daily Calcium Carbonate 600 MG tablet Discontinued 1200 mg PO DAILY@799October 01, 2013 12:00am January 27, 2020 12:49pm Start: 10-01-2013 End: 01-27-2020 take 1200 mg by mouth once daily Calcium Carbonate Discontinued 1200 MG PO DAILY@799October 01, 2013 12:00am January 27, 2020 12:49pm Ombultf-Apiykq-Pcnods-Glycos am (Beyond Bone Broth) 300 mg calcium- 1,700 mg/scoop powder (20 sources) Start: 05-11-2023 End: 08-06-2023 Sgkbnin-Zzeecv-Bnqauv-Glycos am (Beyond Bone Broth) 300 mg calcium- 1,700 mg/scoop powder Discontinued 0 PO .COMPLEX May 11, 2023 12:00am August 06, 2023 1:07pm 2 tablespoons BID orally; Start: 05-11-2023 End: 08-06-2023 Gcfwwry-Dyhvnl-Phydvs-Glycos am (Beyond Bone Broth) 300 mg calcium- [...] day (2 table spoons) Capture and Release (20 sources) Start: 01-27-2020 End: 02-10-2020 Capture and Release Discontinued 2 TABLET PO January 27, 2020 12:46pm February 10, 2020 10:41am Start: 01-27-2020 End: 02-10-2020 Capture and Release Disconti nued 2 {tbl} PO 0 January 27, 2020 1:00am February 10, 2020 [...] 06/11/2023 Discontinued take 1 tablet by hayder th two times weekly cholecalciferol, vitamin D3, (VITAMIN [...] acid (FOLIC ACID-B12 ORAL) (1 source) End: 024 cyanocobalamin/folic acid (FOLIC ACID-B12 ORAL) Take by mouth. Gets from Functional doctor 0 06/11/2023 Discontinued Comment on above: Take by mouth. Gets from Functional doctor cyclobenzaprine hydrochloride 5 mg oral tablet (20 sources) Muscle Relaxant Start: 025 End: take 1 tablet by mouth three times daily as needed for muscle spasms Cyclobenzaprine 5 mg tablet Discontinued 5 mg PO THREE TIMES A DAY as needed for muscle spasm 9 3 0 March 13, 2024 1:00am April 04, 2024 10:01am diclofenac sodium 0.01 mg/mg topical gel (8 sources) Nonsteroidal Anti-inflammatory Drug End: diclofenac (VOLTAREN) 1 % topical gel Apply to affected area four times daily. 0 04/01/2022 Discontinued Comment on above: Apply to affected ar ea four times daily. docosahexaenoic acid 300 mg oral capsule (20 sources) Start: End: Docosahexaenoic Acid (Dha Algal-900) 300 mg capsule Discontinued 600 mg PO DAILY February 10, 2020 1:00am February 06, 2022 9:48am ergocalciferol 1.25 mg oral capsule (20 sources) Provitamin D2 Compound Start: 014 End: Ergocalciferol (Vitamin D2) 50,000 UNIT capsule Discontinued 78272 U PO Q7D October 01, 2013 12:00am January 27, 2020 12:49pm esomeprazole 20 mg delayed release oral capsule (20 sources) Proton Pump Inhibitor Start: 024 End: take 1 capsule by mouth once daily Esomeprazole Magnesium (Nexium) 20 mg capsule,delayed release(DR/EC) Discontinued 20 mg PO DAILY August 06, 2023 12:00am August 18, 2023 2:35pm gabapentin 100 mg oral capsule (20 sources) Anti-epileptic Agent Start: 025 End: take 1 capsule by mouth twice daily Gabapentin 100 mg capsule Discontinued 100 mg PO TWICE A DAY 60 3 April 06, 2024 1:00am July 13, 2024 [...] 100 mg by mouth twice daily. GI Dr Pro (3 sources) Start: 08-17-[address] Pro, 1 tab, Oral, BID, 0 Refill(s), 58.4 Start Date: 08/16/20 Status: Ordered glucosamine sulfate 500 mg oral tablet (20 sources) Start: 02-08-20 End: 02-07-20 Glucosamine Sulfate (Glucosamine) 500 mg tablet Discontinued 30 mg PO DAILY February 07, 2021 1:00am February 06, 2022 9:48am administer with a meal ibuprofen 200 mg oral tablet (10 sources) Nonsteroidal Anti-inflammatory Drug End: 04-01-19 23 take 1 tablet by mouth every six hours as needed ibuprofen (MOTRIN)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 on above: Order Comment: Speci men Type: BLOOD SPECIMEN Ordering Facility: [facility] Address: [address] [place] [address] Performed By: #### 5 7021-8 #### [facility] CLIA [id number] [address] [place] [id number] [place] Neutrophils/100 WBC (Bld) 77.2 % Normal [facility] Comment on above: Order Comment: Speci men Type: BLOOD SPECIMEN Ordering Facility: [facility] Address: [address] [place] [address] Performed By: #### 5 7021-8 #### [facility] CLIA [id number] [address] [address] [place] Nucleated RBC (Bld) [#/Vol] 10*3/uL Normal <0.01 [facility] Comment on above: Order Comment: Speci men Type: BLOOD SPECIMEN Ordering Facility: [facility] Address: [address] [place] [address] Performed By: #### 5 7021-8 #### [facility] CLIA [id number] [address] [place] [id number] [place] Nucleated RBC/100 WBC (Bld) [Ratio] 0.0 /100 WBC Normal [facility] Comment on above: Order Comment: Speci men Type: BLOOD SPECIMEN Ordering Facility: [facility] Address: [address] [place] [address] Performed By: #### 5 7021-8 #### [facility] CLIA [id number] [address] [place] [id number] [place] Platelet mean volume (Bld) [Entitic vol] 9.1 fL Normal 9.0-12.7 [facility] Comment on above: Order Comment: Speci men Type: BLOOD SPECIMEN Ordering Facility: [facility] Address: [address] [place] [address] Performed By: #### 5 7021-8 #### [facility] CLIA [id number] [address] [place] [id number] [place] Platelets (Bld) [#/Vol] 334 10*3/uL Normal 150-400 [facility] Comment on above: Order Comment: Speci men Type: BLOOD SPECIMEN Ordering Facility: [facility] Address: [address] [place] [address] Performed By: #### 5 7021-8 #### [facility] CLIA [id number] [address] [address] [place] RBC (Bld) [#/Vol] 4.05 10*6/uL Normal 3.90-5.20 [facility] Comment on above: Order Comment: Speci men Type: BLOOD SPECIMEN Ordering Facility: [facility] Address: [address] [place] [address] Performed By: #### 5 7021-8 #### [facility] CLIA [id number] [address] [address] [place] WBC (Bld) [#/Vol] 6.82 10*3/uL Normal 3.70-11.00 [facility] Comment on above: Order Comment: Speci men Type: BLOOD SPECIMEN Ordering Facility: [facility] Address: [address] [place] [address] Performed By: #### 5 7021-8 #### [facility] CLIA [id number] [facility] [address] [address] [place] Comprehensive metabolic 2000 panelon 11-26-2024 Albumin [Mass/Vol] 4.5 g/dL Normal 3.9-4.9 [facility] Comment on above: Order Comment: Speci men Type: BLOOD SPECIMEN Ordering Facility: [facility] Address: [address] [place] [address] Performed By: #### 2 4321-2 #### [facility] CLIA [id number] [address] [address] [place] ALP [Catalytic activity/Vol] 54 U/L Normal 34-123 [facility] Comment on above: Order Comment: Speci men Type: BLOOD SPECIMEN Ordering Facility: [facility] Address: [address] [place] [address] Performed By: #### 2 4321-2 #### [facility] CLIA [id number] [address] [address] [place] ALT [Catalytic activity/Vol] 9 U/L Normal 7-38 [facility] Comment on above: Order Comment: Speci men Type: BLOOD SPECIMEN Ordering Facility: [facility] Address: [address] [place] [address] Performed By: #### 2 4321-2 #### [facility] CLIA [id number] [address] [address] [place] Anion gap [Moles/Vol] 14 mmol/L Normal 8-15 [facility] Comment on above: Order Comment: Speci men Type: BLOOD SPECIMEN Ordering Facility: [facility] Address: [address] [place] [address] Performed By: #### 2 4321-2 #### [facility] CLIA [id number] [address] [address] [place] AST [Catalytic activity/Vol] 16 U/L Normal 13-35 [facility] Comment on above: Order Comment: Speci men Type: BLOOD SPECIMEN Ordering Facility: [facility] Address: [address] [place] [address] Performed By: #### 2 4321-2 #### [facility] CLIA [id number] [address] [address] [place] Bilirubin [Mass/Vol] 0.5 mg/dL Normal 0.2-1.3 [facility] Comment on above: Order Comment: Speci men Type: BLOOD SPECIMEN Ordering Facility: [facility] Address: [address] [place] [address] Performed By: #### 2 4321-2 #### [facility] CLIA [id number] [address] [address] [place] Calcium [Mass/Vol] 9.5 mg/dL Normal 8.5-10.2 [facility] Comment on above: Order Comment: Speci men Type: BLOOD SPECIMEN Ordering Facility: [facility] Address: [address] [place] [address] Performed By: #### 2 4321-2 #### [facility] CLIA [id number] [address] [address] [place] Chloride [Moles/Vol] 98 mmol/L Normal 98-107 [facility] Comment on above: Order Comment: Speci men Type: BLOOD SPECIMEN Ordering Facility: [facility] Address: [address] [place], [place] [address] Performed By: #### 2 4321-2 #### [facility] CLIA [id number] [address] [address] [place] CO2 [Moles/Vol] 22 mmol/L Normal 22-30 [facility] Comment on above: Order Comment: Speci men Type: BLOOD SPECIMEN Ordering Facility: [facility] Address: [address] [place] [address] Performed By: #### 2 4321-2 #### [facility] CLIA [id number] [address] [place] [id number] [place] Creatinine [Mass/Vol] 0.60 mg/dL Normal 0.58-0.96 [facility] Comment on above: Order Comment: Speci men Type: BLOOD SPECIMEN Ordering Facility: [facility] Address: [address] [place] [address] Performed By: #### 2 4321-2 #### [facility] CLIA [id number] [address] [place], [place] [address] [place] eGFRcr SerPlBld CKD-EPI 2020 93 mL/min/1.73m??? Normal >=60 [facility] Comment on above: Order Comment: Speci men Type: BLOOD SPECIMEN Ordering Facility: [facility] Address: [address] [place] [address] Result Comment: Rosangela mated Glomerular Filtration Rate [...] accurately reflect actual GFR. Performed By: #### 2 4321-2 #### [facility] CLIA [id number] [address] [address] [place] Glucose [Mass/Vol] 90 mg/dL Normal 74-99 [facility] Comment on above: Order Comment: Byron ordoñez Type: BLOOD SPECIMEN Ordering Facility: [facility] Address: [address] [place] [address] Result Comment: The [place] Diabetes Association (ADA) provides guidance for cutoff [...] Standards of Medical Care in Diabetes 2016, [place] Diabetes Association. Diabetes Care. 2016.39(Suppl 1). Performed By: #### 2 4321-2 #### [facility] CLIA [id number] [address] [address] [place] Potassium [Moles/Vol] 3.9 mmol/L Normal 3.7-5.1 [facility] Comment on above: Order Comment: Byron ordoñez Type: BLOOD SPECIMEN Ordering Facility: [facility] Address: [address] [place] [address] Performed By: #### 2 4321-2 #### [facility] CLIA [id number] [address] [address] [place] Protein [Mass/Vol] 7.0 g/dL Normal 6.3-8.0 [facility] Comment on above: Order Comment: Byron ordoñez Type: BLOOD SPECIMEN Ordering Facility: [facility] Address: [address] [place] [address] Performed By: #### 2 4321-2 #### [facility] CLIA [id number] [address] [address] [place] Sodium [Moles/Vol] 134 mmol/L Low 136-144 [facility] Comment on above: Order Comment: Speci men Type: BLOOD SPECIMEN Ordering Facility: [facility] Address: [address] [place] [address] Performed By: #### 2 4321-2 #### [facility] CLIA [id number] [address] [place] [id number] [place] Urea nitrogen [Mass/Vol] 11 mg/dL Normal 7-21 [facility] Comment on above: Order Comment: Speci men Type: BLOOD SPECIMEN Ordering Facility: [facility] Address: [address] [place] [address] Performed By: #### 2 4321-2 #### [facility] CLIA [id number] [address] [place] [id number] [place] Lipid 1996 panelon 5 Cholesterol [Mass/Vol] 223 mg/dL High <200 [facility] Comment on above: Order Comment: Speci men Type: BLOOD SPECIMEN Ordering Facility: [facility] Address: [address] [place] [address] Result Comment: <200 mg/dL, Desirable 200-239 mg/dL, Borderline high >239 mg/dL, High Performed By: #### 2 4321-2 #### [facility] CLIA [id number] [address] [place] [id number] [place] Cholesterol in HDL [Mass/Vol] 101 mg/dL Normal >39 [facility] Comment on above: Order Comment: Speci men Type: BLOOD SPECIMEN Ordering Facility: [facility] Address: [address] [place] [address] Result Comment: 40-5 9 mg/dL, Acceptable >59 mg/dL, High: Negative risk factor for coronary heart disease <40 mg/dL, Low: Positive risk factor for coronary heart disease Performed By: #### 2 4321-2 #### [facility] CLIA [id number] [address] [place] [id number] [place] Cholesterol in LDL [Mass/Vol] 110 mg/dL High <100 [facility] Comment on above: Order Comment: Byron ordoñez Type: BLOOD SPECIMEN Ordering Facility: [facility] Address: [address] [place] [address] Result Comment: <100 mg/dL, Optimal 100-129 mg/dL, Near optimal/above optimal 130-159 mg/dL, Borderline high 160-189 mg/dL, High >189 mg/dL, Very high Secondary prevention optimal LDL Cholesterol levels are recommended to be <70 mg/dL LDL cholesterol is calculated using the Hollis-NIH equation. Performed By: #### 2 4321-2 #### [facility] CLIA [id number] [address] [place] [address] [place] Cholesterol in LDL/Cholesterol in HDL [Mass ratio] 1.09 {ratio} Normal <2.54 [facility] Comment on above: Order Comment: Byron ordoñez Type: BLOOD SPECIMEN Ordering Facility: [facility] Address: [address] [place] [address] Result Comment: Refe rence: 1. National Cholesterol Education Program ATP III Guideline At-A-Glance Quick Desk Reference: National Heart, Lung, and Blood Haskell. National Institutes of Health. 2001: NIH Publication No. 01-3305. 2. An International Atherosclerosis Society position paper: global recommendations for the management of dyslipidemia: executive summary, Atherosclerosis. 2014: 232(2):410-413. Performed By: #### 2 4321-2 #### [facility] CLIA [id number] [address] [place] [address] [place] Cholesterol in VLDL [Mass/Vol] 11 mg/dL Normal <30 [facility] Comment on above: Order Comment: Byron ordoñez Type: BLOOD SPECIMEN Ordering Facility: [facility] Address: [address] [place] [address] Performed By: #### 2 4321-2 #### [facility] CLIA [id number] [address] [place] [id number] [place] Cholesterol non HDL [Mass/Vol] 122 mg/dL Normal <130 [facility] Comment on above: Order Comment: Speci men Type: BLOOD SPECIMEN Ordering Facility: [facility] Address: [address] [place] [address] Result Comment: <130 mg/dL, Optimal 130-159 mg/dL, Near optimal/above optimal 160-189 mg/dL, Borderline high 190-219 mg/dL, High >219 mg/dL, Very high Secondary prevention optimal non HDL Cholesterol levels are recommended to be <100 mg/dL Performed By: #### 2 4321-2 #### [facility] CLIA [id number] [address] [place] [address] [place] Cholesterol.total/Cho lesterol in HDL [Mass ratio] 2.21 {ratio} Normal <5.10 [facility] Comment on above: Order Comment: Speci men Type: BLOOD SPECIMEN Ordering Facility: [facility] Address: [address] [place] [address] Performed By: #### 2 4321-2 #### [facility] CLIA [id number] [address] [place] [id number] [place] FASTING TIME 12 hrs Normal [facility] Comment on above: Order Comment: Speci men Type: BLOOD SPECIMEN Ordering Facility: [facility] Address: [address] [place] [address] Performed By: #### 2 4321-2 #### [facility] CLIA [id number] [address] [place] [id number] [place] Triglyceride [Mass/Vol] 69 mg/dL Normal <150 [facility] Comment on above: Order Comment: Speci men Type: BLOOD SPECIMEN Ordering Facility: [facility] Address: [address] [place] [address] Result Comment: <150 mg/dL, Normal 150-199 mg/dL, Borderline high 200-499 mg/dL, High >499 mg/dL, Very high Performed By: #### 2 4321-2 #### [facility] CLIA [id number] [address] [place] [address] [place] Orthopedic Visit Reporton Orthopedic Visit Report Normal [facility] Emergency Department Summary on 11-21-2024 Emergency Department Summary Normal [facility] Knee 4 or More Viewson 11-21 Knee 4 or More Views Normal [facility] Venous Duplex US, Unilateral on 11-21-2024 Venous Duplex US, Unilateral Normal [facility] Venous duplex ultrasound rep ortOrdered By: Zhang Balderas on 11-21-2024 US Vein [facility] [address] [place] [address] Venous Duplex US, Unilateral 11/21/24 0903 MR#: [id number] Acct: [id number] Name: KELLI MONROY Rep #:[id number] : 1950 74 From: Zhang Balderas MD Attending Dr: Status: DEP E R Ordering Dr: Jefry Mir DO Date: 11/21/24 Location: ED Sex: F C Admitted: Reason For Study Reason For Study: RLE Pain RIGHT GSV is normal. CFV is compressible, spontaneous, phasic, competent and demonstrates normal augmentation. FV is compressible, spontaneous, phasic, competent and demonstrates normal augmentation. POP V is compressible, spontaneous, phasic, competent and demonstrates normal augmentation. T/P Trunk is compressible. PTV is compressible. RT PerV is compressible. Procedure This is a venous duplex using B-mode, color flow and spectral Doppler. Exam performed portable in ED. The exam was diagnostic. A preliminary report was called and/or faxed to Dr. Mir. VL/Venous Duplex US, Unilateral Interpretation Summary Deep veins of the right lower extremity are patent and compressible segmentally.There is no evidence of right lower extremity deep vein thrombosis. Valvular competence appears intact within the proximal deep venous system on the right . The right great saphenous vein appears patent and compressible segmentally. Ordering Physician: Jefry iMr Referring Physician: Irving Collins Performed By: Clifford Elliott, YENNYT 11/21/241641 Date _ Zhang Balderas MD CC: Dr. Jefry Mir, DO; Dr. Angel Fuller MD ~ Date Dictated: 11/21/24902 Date Transcribed: 11/21/241641 Senior Investment Manager: Signed [facility] Other Phone: Office Visit Reporton 2024 Office Visit Report Normal [facility] Neurology Visit Reporton Neurology Visit Report Normal [facility] Orthopedic Visit Reporton Orthopedic Visit Report Normal [facility] Office Visit Reporton 2024 Office Visit Report Normal [facility] Office Visit Reporton 2024 Office Visit Report Normal [facility] Orthopedic Visit Reporton Orthopedic Visit Report Normal [facility] Knee 4 or More Viewson 09-05 Knee 4 or More Views Normal [facility] Orthopedic Visit Reporton Orthopedic Visit Report Normal [facility] Ferritinon 08-31-2024 Ferritin [Mass/Vol] 87 ng/mL Normal 22-378 [facility] Comment on above: Performed By: #### L 503.6150, L503.6550, L503.0106 ####[facility] [address] [place], [place], [address] Ironon 08-31-2024 Iron [Mass/Vol] 74 ug/dL Normal 50-170 [facility] Comment on above: Performed By: #### L 503.6150, L503.6550, L503.0106 ####[facility] [address] [place], [address] Iron measurement (mass/mass) Ordered By: Anthony Mckeon on 08-31-2024 Iron (Unsp spec) [Mass/Mass] 74 ug/dL 50-170 [facility] Serum or plasma ferritin luis armando surement (mass/volume)Ordered By: Anthony Mckeon on 08-31-2024 Ferritin [Mass/Vol] 87 ng/mL 22-378 [facility] Vitamin B12on 08-31-2024 Cobalamin (Vitamin B12) [Mass/Vol] 521 pg/mL Normal 180-914 [facility] Comment on above: Performed By: #### L 503.6150, L503.6550, L503.0106 ####[facility] [address] [place], [place], [id number] Vitamin B12 ser/plasOrdered By: Anthony Mckeon on 08-31-2024 Cobalamin (Vitamin B12) [Mass/Vol] 521 pg/mL 180-914 [facility] Neurology Visit Reporton Neurology Visit Report Normal [facility] LABORATORYOrdered By: SYSTEM SYSTEM on 08-18-2024 Natriuretic peptide.B prohormone N-Terminal [Mass/Vol] 303 pg/mL Normal 0 - 450 pg/mL AO ADM SS Comment on above: Interpretive Data: N T-proBNP results of less than 300 pg/mL effectively rules out acute congestive heart failure with 99% negative predictive value. PBNPon 08-18-2024 Natriuretic peptide B (Bld) [Mass/Vol] 303 pg/mL Normal 0-450 [facility] Comment on above: Result Comment: NT-p roBNP results of less than 300 pg/mL effectively rules out acute congestive heart failure with 99% negative predictive value. Performed By: #### P BNP #### [facility] [address] [place], [place] [address] Office Visit Reporton 2024 Office Visit Report Normal [facility] 12 Lead EKGon 08-13-2024 12 Lead EKG Normal [facility] Absolute lymphocyte countOrd ered By: Julien Holder on 08-13-2024 Lymphocytes Auto (Unsp spec) [#/Vol] 1.21 10*3/uL 0.83-4.51 [facility] Absolute neutrophil countOrd ered By: Julien Holder on 08-13-2024 Neutrophils (Bld) [#/Vol] 5.3 10*3/uL 2.0-7.7 [facility] Anion gap in Serum or Plasma Ordered By: Julien Holder on 08-13-2024 Anion gap [Moles/Vol] 12 mmol/L - [facility] Automated lymphocyte count a s percentage of total leukocytesOrdered By: Julien Holder on 08-13-2024 Lymphocytes/100 WBC Auto (Unsp spec) 16.0 % Low - [facility] BUN/creatinine ratioOrdered By: Julien Holder on 08-13-2024 Urea nitrogen/Creatinine [Mass ratio] 11.8 mg/mg - [facility] Basic Metabolic Profile (BMP )on 08-13-2024 BUN/CRE 11.8 RATIO Normal 12-12 [facility] Comment on above: Performed By: #### L 501.5200, L100.0100, L501.9520, L500.2500 ####[facility] [address] [place], [address] Calcium [Mass/Vol] 9.2 mg/dL Normal 7.6-11.0 [facility] Comment on above: Performed By: #### L 501.5200, L100.0100, L501.9520, L500.2500 ####[facility] [address] [place], [address] Chloride [Moles/Vol] 98 mmol/L Normal 98-108 [facility] Comment on above: Performed By: #### L 501.5200, L100.0100, L501.9520, L500.2500 ####[facility] [address] [place], [address] CO2 [Moles/Vol] 23.4 mmol/L Normal 21.0-32.0 [facility] Comment on above: Performed By: #### L 501.5200, L100.0100, L501.9520, L500.2500 ####[facility] [address] [place], [address] Creatinine [Mass/Vol] 0.51 mg/dL Low 0.70-1.20 [facility] Comment on above: Performed By: #### L 501.5200, L100.0100, L501.9520, L500.2500 ####[facility] [address] [place], [address] ECRCL 57.40 ml/min Normal 50-250 [facility] Comment on above: Performed By: #### L 501.5200, L100.0100, L501.9520, L500.2500 ####[facility] [address] [place], [address] GAP 12 Normal 5-15 [facility] Comment on above: Performed By: #### L 501.5200, L100.0100, L501.9520, L500.2500 ####[facility] [address] [place], [address] GFR/1.73 sq M.predicted among non-blacks MDRD (S/P/Bld) [Vol rate/Area] 97 mL/min/{1.73_m2} Normal >60 [facility] Comment on above: Result Comment: mL/m in/1.73m2 CKD-EPI Creatinine Equation (2020) Performed By: #### L 501.5200, L100.0100, L501.9520, L500.2500 ####[facility] [address] [place], [address] Glucose [Mass/Vol] 100 mg/dL High 70-99 [facility] Comment on above: Performed By: #### L 501.5200, L100.0100, L501.9520, L500.2500 ####[facility] [address] [place], [address] Potassium [Moles/Vol] 4.0 mmol/L Normal 3.3-5.1 [facility] Comment on above: Performed By: #### L 501.5200, L100.0100, L501.9520, L500.2500 ####[facility] [address] [place], [place] [address] Sodium [Moles/Vol] 133 mmol/L Normal 133-145 [facility] Comment on above: Performed By: #### L 501.5200, L100.0100, L501.9520, L500.2500 ####[facility] [address] [place], [address] Urea nitrogen [Mass/Vol] 6 mg/dL Normal 4-19 [facility] Comment on above: Performed By: #### L 501.5200, L100.0100, L501.9520, L500.2500 ####[facility] [address] [place], [address] Basophil percentageOrdered B y: Julien Wolfeehne on 08-13-2024 Basophils/100 WBC (Bld) 0.7 % 0-1 [facility] CBC W/Diff, Automatedon 07-25 Absolute Lymph 1.21 X10 3/uL Normal 0.83-4.51 [facility] Comment on above: Performed By: #### L 501.5200, L100.0100, L501.9520, L500.2500 ####[facility] [address] [place], [address] Absolute Neut 5.3 X10 3/uL Normal 2.0-7.7 [facility] Comment on above: Performed By: #### L 501.5200, L100.0100, L501.9520, L500.2500 ####[facility] [address] [place], [address] Basophils/100 WBC (Bld) 0.7 % Normal 0-1 [facility] Comment on above: Performed By: #### L 501.5200, L100.0100, L501.9520, L500.2500 ####[facility] [address] [place], [address] Eosinophils/100 WBC (Bld) 0.7 % Normal 0-5 [facility] Comment on above: Performed By: #### L 501.5200, L100.0100, L501.9520, L500.2500 ####[facility] [address] [place], [address] Erythrocyte distribution width (RBC) [Ratio] 11.9 % Normal 11.6-14.6 [facility] Comment on above: Performed By: #### L 501.5200, L100.0100, L501.9520, L500.2500 ####[facility] [address] [place], [address] Hematocrit (Bld) [Volume fraction] 36.2 % Low 37-47 [facility] Comment on above: Performed By: #### L 501.5200, L100.0100, L501.9520, L500.2500 ####[facility] [address] [place], [address] Hemoglobin (Bld) [Mass/Vol] 12.4 g/dL Normal 12.0-15.0 [facility] Comment on above: Performed By: #### L 501.5200, L100.0100, L501.9520, L500.2500 ####[facility] [address] [place], [address] IG% 0.500 Normal 0.0-0.9 [facility] Comment on above: Result Comment: IG% - Immature Granulocytes (promyelocytes, myelocytes andmetamyelocytes) > 1% indicates that a LEFT SHIFT is Present. Performed By: #### L 501.5200, L100.0100, L501.9520, L500.2500 ####[facility] [address] [place], [address] Lymphocytes/100 WBC (Bld) 16.0 % Low 19-41 [facility] Comment on above: Performed By: #### L 501.5200, L100.0100, L501.9520, L500.2500 ####[facility] [address] [place], [address] MCH (RBC) [Entitic mass] 32.1 pg High 27.0-32.0 [facility] Comment on above: Performed By: #### L 501.5200, L100.0100, L501.9520, L500.2500 ####[facility] [address] [place], [address] MCHC (RBC) [Mass/Vol] 34.3 g/dL Normal 32-36 [facility] Comment on above: Performed By: #### L 501.5200, L100.0100, L501.9520, L500.2500 ####[facility] [address] [place], [address] MCV (RBC) [Entitic vol] 93.8 fL Normal 81-99 [facility] Comment on above: Performed By: #### L 501.5200, L100.0100, L501.9520, L500.2500 ####[facility] [address] [place], [address] Monocytes/100 WBC (Bld) 12.4 % High 0-10 [facility] Comment on above: Performed By: #### L 501.5200, L100.0100, L501.9520, L500.2500 ####[facility] [address] [place], [address] Neutrophils/100 WBC (Bld) 69.7 % Normal 47-70 [facility] Comment on above: Performed By: #### L 501.5200, L100.0100, L501.9520, L500.2500 ####[facility] [address] [place], [address] Nucleated RBC (Bld) [#/Vol] 0 10*3/uL Normal 0-5 [facility] Comment on above: Performed By: #### L 501.5200, L100.0100, L501.9520, L500.2500 ####[facility] [address] [place], [address] Platelet mean volume (Bld) [Entitic vol] 9.0 fL Normal 6.2-12.0 [facility] Comment on above: Performed By: #### L 501.5200, L100.0100, L501.9520, L500.2500 ####[facility] [address] [place], [address] Platelets (Bld) [#/Vol] 301 10*3/uL Normal 150-450 [facility] Comment on above: Performed By: #### L 501.5200, L100.0100, L501.9520, L500.2500 ####[facility] [address] [place], [address] RBC (Bld) [#/Vol] 3.86 10*6/uL Low 4.2-5.4 [facility] Comment on above: Performed By: #### L 501.5200, L100.0100, L501.9520, L500.2500 ####[facility] [address] [place], [address] RDW SD 41.0 fl Normal 35.1-43.9 [facility] Comment on above: Performed By: #### L 501.5200, L100.0100, L501.9520, L500.2500 ####[facility] [address] [place], [address] WBC (Bld) [#/Vol] 7.6 10*3/uL Normal 4.4-11.0 [facility] Comment on above: Performed By: #### L 501.5200, L100.0100, L501.9520, L500.2500 ####[facility] [address] [place], [address] Carbon dioxide, total [Moles /volume] in Central venous bloodOrdered By: Julien Holder on 08-13-2024 CO2 [Moles/Vol] 23.4 mmol/L 21.0-32.0 [facility] Chloride assayOrdered By: Juan Holder on 08-13-2024 Chloride [Moles/Vol] 98 mmol/L 98-108 [facility] Emergency Department Summary on 08-13-2024 Emergency Department Summary Normal [facility] Eosinophil percentageOrdered By: Julien Holder on 08-13-2024 Eosinophils/100 WBC (Bld) 0.7 % 0-5 [facility] Erythrocyte distribution wid th ratioOrdered By: Julien Holder on 08-13-2024 Erythrocyte distribution width (RBC) [Ratio] 11.9 % 11.6-14.6 [facility] Erythrocyte distribution wid th standard deviationOrdered By: Julien Holder on 08-13-2024 Erythrocyte distribution width (RBC) [Ratio] 41.0 fl 35.1-43.9 [facility] Glomerular filtration rate ( GFR) estimation/1.73 sq m using serum, plasma, or whole bOrdered By: Julien Holder on 08-13-2024 GFR/1.73 sq M.predicted among non-blacks MDRD (S/P/Bld) [Vol rate/Area] 97 mL/min/{1.73_m2} >60 [facility] Comment on above: mL/min/1.73m2 CKD-EP I Creatinine Equation (2020) Hematocrit Auto (Bld) [Volum e fraction]Ordered By: Julien Holder on 08-13-2024 Hematocrit (Bld) [Volume fraction] 36.2 % Low 37-47 [facility] Hemoglobin measurementOrdere d By: Julien Holder on 08-13-2024 Hemoglobin (Bld) [Mass/Vol] 12.4 g/dL 12.0-15.0 [facility] Immature granulocytes/100 WB C Auto (Bld)Ordered By: Julien Holder on 08-13-2024 Immature granulocytes/100 WBC (Bld) 0.500 % 0.0-0.9 [facility] Comment on above: IG% - Immature Granu locytes (promyelocytes, myelocytes and metamyelocytes) > 1% indicates that a LEFT SHIFT is Present. MCV (mean corpuscular volume ) determinationOrdered By: Julien Holder on 08-13-2024 MCV (RBC) [Entitic vol] 93.8 fL 81-99 [facility] Magnesiumon 08-13-2024 Magnesium [Mass/Vol] 2.4 mg/dL High 1.5-2.2 [facility] Comment on above: Performed By: #### L 501.5200, L100.0100, L501.9520, L500.2500 ####[facility] [address] [place], [place], [address] Magnesium measurement (mass/ volume)Ordered By: Julien Holder on 08-13-2024 Magnesium (Unsp spec) [Mass/Vol] 2.4 mg/dL High 1.5-2.2 [facility] Mean corpuscular hemoglobin (MCH) determinationOrdered By: Julien Holder on 08-13-2024 MCH (RBC) [Entitic mass] 32.1 pg High 27.0-32.0 [facility] Mean corpuscular hemoglobin concentration (MCHC) determinationOrdered By: Julien Holder on 08-13-2024 MCHC (RBC) [Mass/Vol] 34.3 g/dL 32-36 [facility] Mean platelet volume determi nationOrdered By: Julien Holder on 08-13-2024 Platelet mean volume (Bld) [Entitic vol] 9.0 fL 6.2-12.0 [facility] Monocyte percentageOrdered B y: Julien Holder on 08-13-2024 Monocytes/100 WBC (Bld) 12.4 % High 0-10 [facility] Neutrophil percentageOrdered By: Julien Holder on 08-13-2024 Neutrophils/100 WBC (Bld) 69.7 % 47-70 [facility] Nucleated red blood cell per centageOrdered By: Julien Holder on 08-13-2024 Nucleated RBC/100 WBC (Bld) [Ratio] 0 % 0-5 [facility] Platelet countOrdered By: Juan Holder on 08-13-2024 Platelets (Bld) [#/Vol] 301 10*3/uL 150-450 [facility] Potassium measurement (mass/ volume)Ordered By: Julien Holder on 08-13-2024 Potassium (Unsp spec) [Mass/Vol] 4.0 mmol/L 3.3-5.1 [facility] RBC Auto (Bld) [#/Vol]Ordere d By: Julien Holder on 08-13-2024 RBC (Bld) [#/Vol] 3.86 10*6/uL Low 4.2-5.4 [facility] Serum creatinine measurement (mass/volume)Ordered By: Julien Holder on 08-13-2024 Creatinine [Mass/Vol] 0.51 mg/dL Low 0.70-1.20 [facility] Serum glucose measurement (m ass/volume)Ordered By: Julien Holder on 08-13-2024 Glucose [Mass/Vol] 100 mg/dL High 70-99 [facility] Serum or plasma calcium anjel urement (mass/volume)Ordered By: Julien Holder on 08-13-2024 Calcium [Mass/Vol] 9.2 mg/dL 7.6-11.0 [facility] Serum or plasma urea nitroge n measurement (mass/volume)Ordered By: Julien Holder on 08-13-2024 Urea nitrogen [Mass/Vol] 6 mg/dL 4-19 [facility] Sodium levelOrdered By: Neil Holder on 08-13-2024 Sodium [Moles/Vol] 133 mmol/L 133-145 [facility] TSH DL <= 0.005 mIU/L QnOrde red By: Julien Holder on 08-13-2024 TSH Qn 1.150 uIU/mL 0.300-4.200 [facility] Thyroid Stim Hormone (TSH)on 08-13-2024 TSH 1.150 uIU/mL Normal 0.300-4.200 [facility] Comment on above: Performed By: #### L 501.5200, L100.0100, L501.9520, L500.2500 ####[facility] [address] [place], [address] White blood cell (WBC) count Ordered By: Julien Holder on 08-13-2024 WBC (Bld) [#/Vol] 7.6 10*3/uL 4.4-11.0 [facility] Orthopedic Visit Reporton Orthopedic Visit Report Normal [facility] Orthopedic Visit Reporton Orthopedic Visit Report Normal [facility] Office Visit Reporton 2024 Office Visit Report Normal [facility] Orthopedic Visit Reporton Orthopedic Visit Report Normal [facility] CNOVon 07-12-2024 CNOV Office Visit (VASSWS ) -------- KELLI MONROY ([id number]) 1950 F Date Time Provider Department 07/12/24 11:00 AM KARIE MEYER During your visit today, we recorded the following information about you: Pulse Blood pressure 79/minute 143/84 Karie Meyer DO 08/04/2024 11:41 AM Signed [facility]PART[facility] OF VASCULAR SURGERY OUTPATIENT VISIT DATE [...] 5 mg/100 mL pgbk PREMIX piggyback [employer] Skjg-Bfaauuuj-Mwwvv Active 1 EACH .Route ONCE February 07, [...] bruises easi (more content not included)... Normal [facility] Vitamin B1, Thiamineon 07-05 VIT B1 THIAMINE 121.3 nmol/L Normal 66.5-200.0 [facility] Comment on above: Order Comment: Test( s) [id number]-[id number]. B1, Whole Bloodwas developed and its performance characteristicsdetermined by [facility]. It has not been cleared or approvedby the Food and Drug Administration.UNK Result Comment: Perf ormed at: - [facility] [id number] Director: Ricardo Jensen MD, Phone: [phone] Performed By: #### L 3300.8000, L506.0400, L3100.9100, L506.0200, L505.7010 ####[facility] [address] [place], [place], [address] Sjogren's Antibodies A/Bon 0 07-04-2024 ANTI-SS-A < 0.2 Normal 0.0-0.9 [facility] Comment on above: Performed By: #### L 3100.9100 ####[facility] [address] [place], [place], [address] ANTI-SS-B < 0.2 Normal 0.0-0.9 [facility] Comment on above: Result Comment: Perf ormed at: [facility] [address] [id number] Director: Dannie Meza PhD, Phone: [phone] Performed By: #### L 7440.8400 ####[facility] [address] [place], [place], [address] Folate [Mass/volume] in Seru m or PlasmaOrdered By: Anthony Mckeon on 06-30-2024 Folate [Mass/Vol] 16.30 ng/mL 4.60-34.80 [facility] Comment on above: Hemolysis, Results w ill be affected, Requires Recollection. Folates,Serum (Folic Acid)on 06-30-2024 FOLATES,SERUM 16.30 ng/mL Normal 4.60-34.80 [facility] Comment on above: Order Comment: UNKN Result Comment: Hemo lysis, Results will be affected, Requires Recollection. Performed By: #### L 3300.8000, L506.0400, L3100.9100, L506.0200, L505.7010 ####[facility] [address] [place], [place], [address] Neurology Visit Reporton Neurology Visit Report Normal [facility] Rheumatoid Factoron 07-01-19 25 RHEUMATOID FAC < 10.0 Normal <15 [facility] Comment on above: Performed By: #### L 3300.8000, L506.0400, L3100.9100, L506.0200, L505.7010 ####[facility] [address] [place], [place], [address] Serum or plasma thiamine luis armando surement (mass/volume)Ordered By: Anthony Mckeon on 06-30-2024 Thiamine [Mass/Vol] 121.3 nmol/L 66.5-200.0 [facility] Comment on above: Performed at: - [address] [id number] Director: Ricardo Jensen MD, Phone: [phone] Serum rheumatoid factor dete ctionOrdered By: Anthony Mckeon on 06-30-2024 Rheumatoid factor Ql (S) < 10.0 IU/mL <15 [facility] Sjogren's Antibodies A/Bon 0 06-30-2024 ANTI-SS-A TNP Normal [facility] Comment on above: Result Comment: . Performed By: #### L 3300.8000, L506.0400, L3100.9100, L506.0200, L505.7010 ####[facility] [address] [place], [address] ANTI-SS-B TNP Normal [facility] Comment on above: Result Comment: . Performed By: #### L 3300.8000, L506.0400, L3100.9100, L506.0200, L505.7010 ####[facility] [address] [place], [address] T4 Free Directon 06-30-2024 T4 FREE DIRECT 1.30 ng/dL Normal 0.76-1.46 [facility] Comment on above: Order Comment: UNK Performed By: #### L 3300.8000, L506.0400, L3100.9100, L506.0200, L505.7010 ####[facility] [address] [place], [address] T4 freeOrdered By: Anthony barroso on 06-30-2024 Free T4 [Mass/Vol] 1.30 ng/dL 0.76-1.46 [facility] Orthopedic Visit Reporton Orthopedic Visit Report Normal [facility] Basic metabolic 2000 panelon 06-14-2024 Anion gap [Moles/Vol] 10 mmol/L Normal 8-15 [facility] Comment on above: Order Comment: Speci men Type: BLOOD SPECIMEN Ordering Facility: [facility] Address: [address] [place] [address] Performed By: #### 2 4321-2 #### [facility] CLIA [id number] [address] [place] [id number] [place] Calcium [Mass/Vol] 9.5 mg/dL Normal 8.5-10.2 [facility] Comment on above: Order Comment: Speci men Type: BLOOD SPECIMEN Ordering Facility: [facility] Address: [address] [place] [address] Performed By: #### 2 4321-2 #### [facility] CLIA [id number] [address] [id number] [place] Chloride [Moles/Vol] 100 mmol/L Normal 98-107 [facility] Comment on above: Order Comment: Speci men Type: BLOOD SPECIMEN Ordering Facility: [facility] Address: [address] [place] [address] Performed By: #### 2 4321-2 #### [facility] CLIA [id number] [address] [address] [place] CO2 [Moles/Vol] 26 mmol/L Normal 22-30 [facility] Comment on above: Order Comment: Speci men Type: BLOOD SPECIMEN Ordering Facility: [facility] Address: [address] [place] [address] Performed By: #### 2 4321-2 #### [facility] CLIA [id number] [address] [address] [place] Creatinine [Mass/Vol] 0.54 mg/dL Low 0.58-0.96 [facility] Comment on above: Order Comment: Speci men Type: BLOOD SPECIMEN Ordering Facility: [facility] Address: [address] [place] [address] Performed By: #### 2 4321-2 #### [facility] CLIA [id number] [address] [place] [address] [place] Creatinine and Glomerular filtration rate.predicted panel (S/P/Bld) 96 mL/min/1.73m??? Normal >=60 [facility] Comment on above: Order Comment: Byron ordoñez Type: BLOOD SPECIMEN Ordering Facility: [facility] Address: [address] [place] [address] Result Comment: Rosangela mated Glomerular Filtration Rate [...] accurately reflect actual GFR. Performed By: #### 2 4321-2 #### [facility] CLIA [id number] [facility] [place] [address] [place] Glucose [Mass/Vol] 82 mg/dL Normal 74-99 [facility] Comment on above: Order Comment: Byron ordoñez Type: BLOOD SPECIMEN Ordering Facility: [facility] Address: [address] [place] [address] Result Comment: The [place] [employer] (ADA) provides guidance for cutoff [...] Standards of Medical Care in Diabetes 2016, [place] [employer]. Diabetes Care. 2016.39(Suppl 1). Performed By: #### 2 4321-2 #### [facility] CLIA [id number] [address] [id number] [place] Potassium [Moles/Vol] 3.9 mmol/L Normal 3.7-5.1 [facility] Comment on above: Order Comment: Speci men Type: BLOOD SPECIMEN Ordering Facility: [facility] Address: [address] [place] [address] Performed By: #### 2 4321-2 #### [facility] CLIA [id number] [address] [place] [address] [place] Sodium [Moles/Vol] 136 mmol/L Normal 136-144 [facility] Comment on above: Order Comment: Speci men Type: BLOOD SPECIMEN Ordering Facility: [facility] Address: [address] [place] [address] Performed By: #### 2 4321-2 #### [facility] CLIA [id number] [address] [place] [address] [place] Urea nitrogen [Mass/Vol] 6 mg/dL Low 7-21 [facility] Comment on above: Order Comment: Speci men Type: BLOOD SPECIMEN Ordering Facility: [facility] Address: [address] [place] [address] Performed By: #### 2 4321-2 #### [facility] CLIA [id number] [address] [id number] [place] Office Visit Reporton 2024 Office Visit Report Normal [facility] CNPYuli 06-03-2024 CNPN Telephone (VASSMD) -------- KELLI MONROY ([id number]) 1950 F Date Time Provider Department 06/03/24 [...] 5 mg/100 mL pgbk PREMIX piggyback [employer] Smft-Gefjnntg-Kuupa Active 1 EACH .Route ONCE 100 February 07, 2021 11:08am onceinfuse over 20 minutes - acetaminophen (TYLENOL EX STR RAPID RELEASE ORAL) Take 1,000 mg by mouth twice daily as needed. 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 [...] Status:Closed by CLIFFORD TREJO on 06/03/24 Normal [facility] CBC W Auto Differential pane l (Bld)on 05-25-2024 Basophils (Bld) [#/Vol] 0.05 10*3/uL Normal <0.11 [facility] Comment on above: Order Comment: Speci men Type: BLOOD SPECIMEN Ordering Facility: [facility] Address: [address] [place] [address] Performed By: #### 5 7021-8 #### [facility] CLIA [id number] [address] [place] [address] [place] Basophils/100 WBC (Bld) 0.6 % Normal [facility] Comment on above: Order Comment: Speci men Type: BLOOD SPECIMEN Ordering Facility: [facility] Address: [address] [place] [address] Performed By: #### 5 7021-8 #### [facility] CLIA [id number] [address] [place] [address] [place] Differential cell count method Nom (Bld) Auto Normal [facility] Comment on above: Order Comment: Speci men Type: BLOOD SPECIMEN Ordering Facility: [facility] Address: [address] [place] [address] Performed By: #### 5 7021-8 #### [facility] CLIA [id number] [address] [place] [address] [place] Eosinophils (Bld) [#/Vol] 0.04 10*3/uL Normal <0.46 [facility] Comment on above: Order Comment: Speci men Type: BLOOD SPECIMEN Ordering Facility: [facility] Address: [address] [place] [address] Performed By: #### 5 7021-8 #### [facility] CLIA [id number] [address] [place] [address] [place] Eosinophils/100 WBC (Bld) 0.5 % Normal [facility] Comment on above: Order Comment: Speci men Type: BLOOD SPECIMEN Ordering Facility: [facility] Address: [address] [place] [address] Performed By: #### 5 7021-8 #### [facility] CLIA [id number] [address] [place] [address] [place] Erythrocyte distribution width (RBC) [Ratio] 13.0 % Normal 11.5-15.0 [facility] Comment on above: Order Comment: Speci men Type: BLOOD SPECIMEN Ordering Facility: [facility] Address: [address] [place] [address] Performed By: #### 5 7021-8 #### [facility] CLIA [id number] [address] [place] [address] [place] Hematocrit (Bld) [Volume fraction] 32.3 % Low 36.0-46.0 [facility] Comment on above: Order Comment: Speci men Type: BLOOD SPECIMEN Ordering Facility: [facility] Address: [address] [place] [address] Performed By: #### 5 7021-8 #### [facility] CLIA [id number] [address] [place] [address] [place] Hemoglobin (Bld) [Mass/Vol] 11.0 g/dL Low 11.5-15.5 [facility] Comment on above: Order Comment: Speci men Type: BLOOD SPECIMEN Ordering Facility: [facility] Address: [address] [place] [address] Performed By: #### 5 7021-8 #### [facility] CLIA [id number] [address] [place] [address] [place] Immature granulocytes (Bld) [#/Vol] 0.04 10*3/uL Normal <0.10 [facility] Comment on above: Order Comment: Speci men Type: BLOOD SPECIMEN Ordering Facility: [facility] Address: [address] [place] [address] Performed By: #### 5 7021-8 #### [facility] CLIA [id number] [address] [place] [address] [place] Immature granulocytes/100 WBC (Bld) 0.5 % Normal [facility] Comment on above: Order Comment: Speci men Type: BLOOD SPECIMEN Ordering Facility: [facility] Address: [address] [place] [address] Performed By: #### 5 7021-8 #### [facility] CLIA [id number] [address] [place] [address] [place] Lymphocytes (Bld) [#/Vol] 0.83 10*3/uL Low 1.00-4.00 [facility] Comment on above: Order Comment: Speci men Type: BLOOD SPECIMEN Ordering Facility: [facility] Address: [address] [place] [address] Performed By: #### 5 7021-8 #### [facility] CLIA [id number] [address] [place] [address] [place] Lymphocytes/100 WBC (Bld) 9.5 % Normal [facility] Comment on above: Order Comment: Speci men Type: BLOOD SPECIMEN [facility] Hospital Address: [address] [place] [address] Performed By: #### 5 7021-8 #### [facility] CLIA [id number] [address] [place] [address] [place] MCH (RBC) [Entitic mass] 32.3 pg Normal 26.0-34.0 [facility] Comment on above: Order Comment: Speci men Type: BLOOD SPECIMEN Ordering Facility: [facility] Address: [address] [place] [address] Performed By: #### 5 7021-8 #### [facility] CLIA [id number] [address] [place] [address] [place] MCHC (RBC) [Mass/Vol] 34.1 g/dL Normal 30.5-36.0 [facility] Comment on above: Order Comment: Speci men Type: BLOOD SPECIMEN Ordering Facility: [facility] Address: [address] [place] [address] Performed By: #### 5 7021-8 #### [facility] CLIA [id number] [address] [place] [address] [place] MCV (RBC) [Entitic vol] 94.7 fL Normal 80.0-100.0 [facility] Comment on above: Order Comment: Speci men Type: BLOOD SPECIMEN Ordering Facility: [facility] Address: [address] [place] [address] Performed By: #### 5 7021-8 #### [facility] CLIA [id number] [address] [place] [address] [place] Monocytes (Bld) [#/Vol] 0.99 10*3/uL High <0.87 [facility] Comment on above: Order Comment: Speci men Type: BLOOD SPECIMEN Ordering Facility: [facility] Address: [address] [place] [address] Performed By: #### 5 7021-8 #### [facility] CLIA [id number] [address] [place] [address] [place] Monocytes/100 WBC (Bld) 11.3 % Normal [facility] Comment on above: Order Comment: Speci men Type: BLOOD SPECIMEN Ordering Facility: [facility] Address: [address] [place] [address] Performed By: #### 5 7021-8 #### [facility] CLIA [id number] [address] [place] [address] [place] Neutrophils (Bld) [#/Vol] 6.78 10*3/uL Normal 1.45-7.50 [facility] Comment on above: Order Comment: Speci men Type: BLOOD SPECIMEN Ordering Facility: [facility] Address: [address] [place] [address] Performed By: #### 5 7021-8 #### [facility] CLIA [id number] [address] [place] [address] [place] Neutrophils/100 WBC (Bld) 77.6 % Normal [facility] Comment on above: Order Comment: Speci men Type: BLOOD SPECIMEN Ordering Facility: [facility] Address: [address] [place] [address] Performed By: #### 5 7021-8 #### [facility] CLIA [id number] [address] [place] [address] [place] Nucleated RBC (Bld) [#/Vol] 10*3/uL Normal <0.01 [facility] Comment on above: Order Comment: Speci men Type: BLOOD SPECIMEN Ordering Facility: [facility] Address: [address] [place] [address] Performed By: #### 5 7021-8 #### [facility] CLIA [id number] [address] [place] [address] [place] Nucleated RBC/100 WBC (Bld) [Ratio] 0.0 /100 WBC Normal [facility] Comment on above: Order Comment: Speci men Type: BLOOD SPECIMEN Ordering Facility: [facility] Address: [address] [place] [address] Performed By: #### 5 7021-8 #### [facility] CLIA [id number] [address] [place] [address] [place] Platelet mean volume (Bld) [Entitic vol] 8.7 fL Low 9.0-12.7 [facility] Comment on above: Order Comment: Speci men Type: BLOOD SPECIMEN Ordering Facility: [facility] Address: [address] [place] [address] Performed By: #### 5 7021-8 #### [facility] CLIA [id number] [address] [place] [address] [place] Platelets (Bld) [#/Vol] 290 10*3/uL Normal 150-400 [facility] Comment on above: Order Comment: Speci men Type: BLOOD SPECIMEN Ordering Facility: [facility] Address: [address] [place] [address] Performed By: #### 5 7021-8 #### [facility] CLIA [id number] [address] [place] [address] [place] RBC (Bld) [#/Vol] 3.41 10*6/uL Low 3.90-5.20 [facility] Comment on above: Order Comment: Speci men Type: BLOOD SPECIMEN Ordering Facility: [facility] Address: [address] [place] [address] Performed By: #### 5 7021-8 #### [facility] CLIA [id number] [address] [place] [address] [place] WBC (Bld) [#/Vol] 8.73 10*3/uL Normal 3.70-11.00 [facility] Comment on above: Order Comment: Speci men Type: BLOOD SPECIMEN Ordering Facility: [facility] Address: [address] [place] [address] Performed By: #### 5 7021-8 #### [facility] CLIA [id number] [address] [place] [address] [place] HFE (HEMOCHROMATOSIS)on INTERPRETATION (HEMDNA) Normal [facility] Comment on above: Order Comment: Speci men Type: BLOOD SPECIMEN Ordering Facility: [facility] Address: [address] [place] [address], [place] [address] Result Comment: HFE (Hemochromatosis) Laboratory Accession Number: [id number] Result: C282Y: WT H63D: NINFA S65C: WT Interpretation: 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 The variants interrogated are c.845G>A, p.Yur789Uxt; g.[id number]; [id number] (legacy name C282Y), c.187C>G, p.Qmm62Vty; g.[id number]; [id number] (legacy name H63D) and c.193A>T, p.Ivt74Gfo; g.99575439; [id number] (legacy name S65C). The reference genome used was GRCh37/hg19. Limitations: DNA studies do not provide a definitive genetic risk in all individuals. This targeted test is designed to detect three specific variants (see methodology for details) in HFE (OMIM 362042). Uncommon variants or single nucleotide polymorphisms may affect binding of probes and thus result in false negative, false positive, or indeterminate results. This test does not detect other HFE variants. Disclaimer: This test was developed and its performance characteristics determined by [facility] Pathology and Laboratory Medicine Department. It has not been cleared or approved by the FDA. [facility] Pathology [facility] Department is regulated under CLIA as certified to perform high-complexity testing. This test is used for clinical purposes. It should not be regarded as investigational or for research. Test performed at [facility], [address] [place] [address]. CLIA Number: [id number] Interpretation performed by Ernestine Spears, PhD Performed By: #### 2 4321-2 #### [facility] CLIA [id number] [address] [place] [address] [place] Osmolality Uron 05-25-2024 Osmolality (U) [Osmolality] 109 mosm/kg Normal 50-1200 [facility] Comment on above: Order Comment: Speci men Type: BLOOD SPECIMEN Ordering Facility: [facility] Address: [address] [place] [address] Performed By: #### 2 4321-2 #### [facility] CLIA [id number] [address] [place] [address] [place] PATHOLOGIST INTERPRETATION C BC AND DIFFERENTIAL (LAB REFLEX ORDER-NO BILL)on 05-25-2024 Pilot Can Router review Robin (Unsp spec) [Interp] No review performed. Normal [facility] Comment on above: Order Comment: Speci men Type: BLOOD SPECIMEN Ordering Facility: [facility] Address: [address] [place] [address] Performed By: #### L [id number] #### [facility] CLIA [id number] [address] [place] [address] OF DES STAFF REVIEW, CBCDIF The Pathologist Interpretation on this sample was cancelled because the hematology analyzer did not flag any parameters as requiring manual review. If there is a specific clinical concern for which you would like a pathologist to review the blood smear, please call Lab Client Services within 28 days. Normal [facility] Comment on above: Order Comment: Speci men Type: BLOOD SPECIMEN Ordering Facility: [facility] Address: [address] [place] [address] Performed By: #### L [id number] #### [facility] CLIA [id number] [address] [place] [id number] [place] Sodium ?Tm Ur-sCncon 025 Sodium Unsp time (U) [Moles/Vol] <20 Normal 14-216 [facility] Comment on above: Order Comment: Speci men Type: URINE SPECIMEN Ordering Facility: [facility] Address: [address] [place] [address], [place] [address] Result Comment: Resu lt rechecked. Performed By: #### 3 5678-2 #### [facility] CLIA [id number] [address] [place] [place] [id number] [place] NCS and/or EMG Patienton NCS and/or EMG Patient Normal [facility] NCS and/or EMG Patienton NCS and/or EMG Patient Normal [facility] Office Visit Reporton 2024 Office Visit Report Normal [facility] Orthopedic Visit Reporton Orthopedic Visit Report Normal [facility] .Auto Diffon 04-28-2024 Basophil, Absolute 0.0 10 3/mcL Normal 0.0-0.3 [facility] Comment on above: Performed By: #### F ERR, GFR, FES, CMP, ADIFF, ANEU, TSH, CBC #### [address] [address] Basophils/100 WBC (Bld) 0.3 % Normal 0.0-2.5 [facility] Comment on above: Performed By: #### F ERR, GFR, FES, CMP, ADIFF, ANEU, TSH, CBC #### [address] [address] Eosinophil, Absolute 0.0 10 3/mcL Normal 0.0-0.7 [facility] Comment on above: Performed By: #### F ERR, GFR, FES, CMP, ADIFF, ANEU, TSH, CBC #### [address] [address] Eosinophils/100 WBC (Bld) 0.3 % Normal 0.0-6.0 [facility] Comment on above: Performed By: #### F ERR, GFR, FES, CMP, ADIFF, ANEU, TSH, CBC #### [address] [address] Lymphocyte, Absolute 0.7 10 3/mcL Low 0.9-4.3 [facility] Comment on above: Performed By: #### F ERR, GFR, FES, CMP, ADIFF, ANEU, TSH, CBC #### [address] [address] Lymphocytes/100 WBC (Bld) 9.2 % Low 20.0-40.0 [facility] Comment on above: Performed By: #### F ERR, GFR, FES, CMP, ADIFF, ANEU, TSH, CBC #### [address] [address] Monocyte, Absolute 0.9 10 3/mcL Normal 0.1-1.4 [facility] Comment on above: Performed By: #### F ERR, GFR, FES, CMP, ADIFF, ANEU, TSH, CBC #### [address] [address] Monocytes/100 WBC (Bld) 11.5 % Normal 2.0-13.0 [facility] Comment on above: Performed By: #### F ERR, GFR, FES, CMP, ADIFF, ANEU, TSH, CBC #### [address] [address] Neutrophils/100 WBC (Bld) 78.7 % High 50.0-75.0 [facility] Comment on above: Performed By: #### F ERR, GFR, FES, CMP, ADIFF, ANEU, TSH, CBC #### [address] [address] .GFRon 04-28-2024 Estimated Glomerular Filtration Rate 96 ml/min/1.73sqm Normal [facility] Comment on above: Result Comment: Stages [...] #### V IDH, GFR, B12, BMP #### [place] [address] .NEUABSon 04-28-2024 Neutrophil, Absolute 6.2 10 3/mcL Normal 2.3-8.1 [facility] Comment on above: Performed By: #### F ERR, GFR, FES, CMP, ADIFF, ANEU, TSH, CBC #### [place] [address] CBCon 04-28-2024 Erythrocyte distribution width (RBC) [Ratio] 12.4 % Normal 11.5-15.5 [facility] Comment on above: Performed By: #### F ERR, GFR, FES, CMP, ADIFF, ANEU, TSH, CBC #### [place] [address] Hematocrit (Bld) [Volume fraction] 36.3 % Normal 34.0-46.0 [facility] Comment on above: Performed By: #### F ERR, GFR, FES, CMP, ADIFF, ANEU, TSH, CBC #### [place] [address] Hgb 12.9 G/dL Normal 12.0-16.0 [facility] Comment on above: Performed By: #### F ERR, GFR, FES, CMP, ADIFF, ANEU, TSH, CBC #### [place] [address] MCH (RBC) [Entitic mass] 33.2 pg High 27.0-33.0 [facility] Comment on above: Performed By: #### F ERR, GFR, FES, CMP, ADIFF, ANEU, TSH, CBC #### [place] [address] MCHC 35.6 G/dL Normal 32.0-36.0 [facility] Comment on above: Performed By: #### F ERR, GFR, FES, CMP, ADIFF, ANEU, TSH, CBC #### [place] [id number] MCV (RBC) [Entitic vol] 93.3 fL Normal 80.0-99.0 [facility] Comment on above: Performed By: #### F ERR, GFR, FES, CMP, ADIFF, ANEU, TSH, CBC #### [place] [address] Platelet 489 10 3/mcL High 150-450 [facility] Comment on above: Performed By: #### F ERR, GFR, FES, CMP, ADIFF, ANEU, TSH, CBC #### [place] [address] Platelet mean volume (Bld) [Entitic vol] 7.0 fL Normal 6.6-10.5 [facility] Comment on above: Performed By: #### F ERR, GFR, FES, CMP, ADIFF, ANEU, TSH, CBC #### [place] [id number] RBC 3.89 10 6/mcL Low 4.10-5.30 [facility] Comment on above: Performed By: #### F ERR, GFR, FES, CMP, ADIFF, ANEU, TSH, CBC #### [place] [id number] WBC 7.8 10 3/mcL Normal 4.5-10.8 [facility] Comment on above: Performed By: #### F ERR, GFR, FES, CMP, ADIFF, ANEU, TSH, CBC #### [address] [address] CMPon 04-28-2024 Albumin Level 3.9 G/dL Normal 3.2-4.8 [facility] Comment on above: Performed By: #### F ERR, GFR, FES, CMP, ADIFF, ANEU, TSH, CBC #### [place] [address] Albumin/Globulin [Mass ratio] 1.1 {ratio} Normal 0.9-1.6 [facility] Comment on above: Performed By: #### F ERR, GFR, FES, CMP, ADIFF, ANEU, TSH, CBC #### [address] [address] ALP [Catalytic activity/Vol] 73 U/L Normal 38-126 [facility] Comment on above: Performed By: #### F ERR, GFR, FES, CMP, ADIFF, ANEU, TSH, CBC #### [place] [id number] ALT [Catalytic activity/Vol] 16 U/L Normal 10-49 [facility] Comment on above: Performed By: #### F ERR, GFR, FES, CMP, ADIFF, ANEU, TSH, CBC #### [place] [id number] AST [Catalytic activity/Vol] 25 U/L Normal 8-34 [facility] Comment on above: Performed By: #### F ERR, GFR, FES, CMP, ADIFF, ANEU, TSH, CBC #### [place] [id number] Bili Total 0.50 mg/dL Normal 0.20-1.20 [facility] Comment on above: Result Comment: Use of this assay is not recommended for patients undergoing treatment with eltrombopag due to the potential for falsely elevated results. Performed By: #### F ERR, GFR, FES, CMP, ADIFF, ANEU, TSH, CBC #### [place] [id number] BUN/Creatinine Ratio 13.5 ratio Normal 10.0-22.0 [facility] Comment on above: Performed By: #### F ERR, GFR, FES, CMP, ADIFF, ANEU, TSH, CBC #### [place] [id number] Calcium [Mass/Vol] 9.9 mg/dL Normal 8.7-10.4 [facility] Comment on above: Performed By: #### F ERR, GFR, FES, CMP, ADIFF, ANEU, TSH, CBC #### [place] [id number] Chloride [Moles/Vol] 97 mmol/L Low 98-110 [facility] Comment on above: Performed By: #### F ERR, GFR, FES, CMP, ADIFF, ANEU, TSH, CBC #### [place] [id number] CO2 [Moles/Vol] 25 mmol/L Normal 22-32 [facility] Comment on above: Performed By: #### F ERR, GFR, FES, CMP, ADIFF, ANEU, TSH, CBC #### [place] [id number] Creatinine [Mass/Vol] 0.52 mg/dL Normal 0.50-1.20 [facility] Comment on above: Result Comment: Test ing performed on Vidible analyzer using enzymatic creatinine methodology. Performed By: #### F ERR, GFR, FES, CMP, ADIFF, ANEU, TSH, CBC #### [place] [address] Electrolyte Balance 8.0 mEq/L Normal 4.0-15.0 [facility] Comment on above: Performed By: #### F ERR, GFR, FES, CMP, ADIFF, ANEU, TSH, CBC #### [place] [id number] Globulin 3.5 G/dL Normal 1.5-3.8 [facility] Comment on above: Performed By: #### F ERR, GFR, FES, CMP, ADIFF, ANEU, TSH, CBC #### [place] [id number] Glucose [Mass/Vol] 93 mg/dL Normal 82-115 [facility] Comment on above: Performed By: #### F ERR, GFR, FES, CMP, ADIFF, ANEU, TSH, CBC #### [place] [id number] Potassium [Moles/Vol] 4.2 mmol/L Normal 3.5-5.0 [facility] Comment on above: Performed By: #### F ERR, GFR, FES, CMP, ADIFF, ANEU, TSH, CBC #### [place] [id number] Sodium [Moles/Vol] 130 mmol/L Low 136-145 [facility] Comment on above: Performed By: #### F ERR, GFR, FES, CMP, ADIFF, ANEU, TSH, CBC #### [place] [id number] Total Protein 7.4 G/dL Normal 5.7-8.2 [facility] Comment on above: Performed By: #### F ERR, GFR, FES, CMP, ADIFF, ANEU, TSH, CBC #### [place] [address] Urea nitrogen [Mass/Vol] 7.0 mg/dL Low 8.0-22.0 [facility] Comment on above: Performed By: #### F ERR, GFR, FES, CMP, ADIFF, ANEU, TSH, CBC #### [place] [id number] Zamzam 04-28-2024 Ferritin [Mass/Vol] 300.3 ng/mL High 8.0-252.0 [facility] Comment on above: Performed By: #### F ERR, GFR, FES, CMP, ADIFF, ANEU, TSH, CBC #### [place] [id number] FESon 04-28-2024 Iron [Mass/Vol] 81 ug/dL Normal 50-170 [facility] Comment on above: Performed By: #### F ERR, GFR, FES, CMP, ADIFF, ANEU, TSH, CBC #### [place] [id number] Iron Sat 28 % Normal [facility] Comment on above: Performed By: #### F ERR, GFR, FES, CMP, ADIFF, ANEU, TSH, CBC #### [address] [address] TIBC 289 mcg/dL Normal 250-500 [facility] Comment on above: Performed By: #### F ERR, GFR, FES, CMP, ADIFF, ANEU, TSH, CBC #### [place] [id number] TSHon 04-28-2024 TSH 0.950 mIU/mL Normal 0.550-4.780 [facility] Comment on above: Performed By: #### V IDH, GFR, B12, BMP #### [facility] [address] [place] [address] 12 Lead EKGon 04-18-2024 12 Lead EKG Normal [facility] Absolute lymphocyte countOrd ered By: Julien Holder on 04-18-2024 Lymphocytes Auto (Unsp spec) [#/Vol] 0.59 10*3/uL Low 0.83-4.51 [facility] Absolute neutrophil countOrd ered By: Julien Holder on 04-18-2024 Neutrophils (Bld) [#/Vol] 3.9 10*3/uL 2.0-7.7 [facility] Automated lymphocyte count a s percentage of total leukocytesOrdered By: Julien Holder on 04-18-2024 Lymphocytes/100 WBC Auto (Unsp spec) 11.4 % Low 19-41 [facility] Bacteria LM.HPF (Urine sed) [#/Area]Ordered By: Julien Holder on 04-18-2024 Urine Bacteria RARE /hpf None Seen [facility] Basic Metabolic Profile (BMP )on 04-18-2024 BUN/CRE 9.0 RATIO Low 10-20 [facility] Comment on above: Order Comment: 'TROP ' Serial specimen #1, #2 or #3: 1 Performed By: #### L 100.0100, L500.2500, L501.4020, L500.3400 ####[facility] [address] [place], [address] CA,Total 8.9 mg/dL Normal 8.5-10.1 [facility] Comment on above: Order Comment: 'TROP ' Serial specimen #1, #2 or #3: 1 Performed By: #### L 100.0100, L500.2500, L501.4020, L500.3400 ####[facility] [address] [place], [address] Chloride [Moles/Vol] 96 mmol/L Low 98-107 [facility] Comment on above: Order Comment: 'TROP ' Serial specimen #1, #2 or #3: 1 Performed By: #### L 100.0100, L500.2500, L501.4020, L500.3400 ####[facility] [address] [place], [address] CO2 [Moles/Vol] 27.0 mmol/L Normal 21.0-32.0 [facility] Comment on above: Order Comment: 'TROP ' Serial specimen #1, #2 or #3: 1 Performed By: #### L 100.0100, L500.2500, L501.4020, L500.3400 ####[facility] [address] [place], [address] Creatinine [Mass/Vol] 0.56 mg/dL Normal 0.55-1.02 [facility] Comment on above: Order Comment: 'TROP ' Serial specimen #1, #2 or #3: 1 Result Comment: The validity of the calculated GFR GFRAA in patients over70 years has not been determined. Clinical correlation isessential. Performed By: #### L 100.0100, L500.2500, L501.4020, L500.3400 ####[facility] [address] [place], [address] ECRCL 57.03 ml/min Normal [facility] Comment on above: Order Comment: 'TROP ' Serial specimen #1, #2 or #3: 1 Performed By: #### L 100.0100, L500.2500, L501.4020, L500.3400 ####[facility] [address] [place], [address] EST GFR - AA 137 mL/min Normal >60 [facility] Comment on above: Order Comment: 'TROP ' Serial specimen #1, #2 or #3: 1 Result Comment: Afri can Welsh GFR Calc Performed By: #### L 100.0100, L500.2500, L501.4020, L500.3400 ####[facility] [address] [place], [address] GAP 7 Normal 5-15 [facility] Comment on above: Order Comment: 'TROP ' Serial specimen #1, #2 or #3: 1 Performed By: #### L 100.0100, L500.2500, L501.4020, L500.3400 ####[facility] [address] [place], [address] GFR/1.73 sq M.predicted among non-blacks MDRD (S/P/Bld) [Vol rate/Area] 113 mL/min/{1.73_m2} Normal >60 [facility] Comment on above: Order Comment: 'TROP ' Serial specimen #1, #2 or #3: 1 Result Comment: Non- GFR Calc Performed By: #### L 100.0100, L500.2500, L501.4020, L500.3400 ####[facility] [address] [place], [address] Glucose [Mass/Vol] 96 mg/dL Normal 74-106 [facility] Comment on above: Order Comment: 'TROP ' Serial specimen #1, #2 or #3: 1 Performed By: #### L 100.0100, L500.2500, L501.4020, L500.3400 ####[facility] [address] [place], [address] Potassium [Moles/Vol] 3.8 mmol/L Normal 3.5-5.1 [facility] Comment on above: Order Comment: 'TROP ' Serial specimen #1, #2 or #3: 1 Performed By: #### L 100.0100, L500.2500, L501.4020, L500.3400 ####[facility] [address] [place], [address] Sodium [Moles/Vol] 130 mmol/L Low 136-145 [facility] Comment on above: Order Comment: 'TROP ' Serial specimen #1, #2 or #3: 1 Performed By: #### L 100.0100, L500.2500, L501.4020, L500.3400 ####[facility] [address] [place], [address] Urea nitrogen [Mass/Vol] 5 mg/dL Low - [facility] Comment on above: Order Comment: 'TROP ' Serial specimen #1, #2 or #3: 1 Performed By: #### L 100.0100, L500.2500, L501.4020, L500.3400 ####[facility] [address] [place], [address] Basophil percentageOrdered B y: Julien Holder on 04-18-2024 Basophils/100 WBC (Bld) 0.4 % 0-1 [facility] Bilirubin Test strip Ql (U)O rdered By: Julien Holder on 04-18-2024 Bilirubin Ql (U) Negative Negative [facility] Bilirubin directOrdered By: Julien Holder on 04-18-2024 Bilirubin.direct [Mass/Vol] 0.14 mg/dL 0.00-0.30 [facility] Bilirubin, totalOrdered By: Julien Holder on 04-18-2024 Bilirubin [Mass/Vol] 0.50 mg/dL 0.20-1.00 [facility] Comment on above: For patients on eltr ombopag therapy, use of Dimension [place] TBIL is not recommended. Blood urea nitrogen (BUN)/cr eatinine ratioOrdered By: Julien Holder on 04-18-2024 Urea nitrogen/Creatinine [Mass ratio] 9.0 mg/mg Low 10-20 [facility] CBC W/Diff, Automatedon 03-27 Absolute Lymph 0.59 X10 3/uL Low 0.83-4.51 [facility] Comment on above: Performed By: #### L 100.0100, L500.2500, L501.4020, L500.3400 ####[facility] [address] [place], [address] Absolute Neut 3.9 X10 3/uL Normal 2.0-7.7 [facility] Comment on above: Performed By: #### L 100.0100, L500.2500, L501.4020, L500.3400 ####[facility] [address] [place], [address] Basophils/100 WBC (Bld) 0.4 % Normal 0-1 [facility] Comment on above: Performed By: #### L 100.0100, L500.2500, L501.4020, L500.3400 ####[facility] [address] [place], [address] Eosinophils/100 WBC (Bld) 0.4 % Normal 0-5 [facility] Comment on above: Performed By: #### L 100.0100, L500.2500, L501.4020, L500.3400 ####[facility] [address] [place], [address] Erythrocyte distribution width (RBC) [Ratio] 11.8 % Normal 11.6-14.6 [facility] Comment on above: Performed By: #### L 100.0100, L500.2500, L501.4020, L500.3400 ####[facility] [address] [place], [address] Hematocrit (Bld) [Volume fraction] 39.7 % Normal 37-47 [facility] Comment on above: Performed By: #### L 100.0100, L500.2500, L501.4020, L500.3400 ####[facility] [address] [place], [address] Hemoglobin (Bld) [Mass/Vol] 13.5 g/dL Normal 12.0-15.0 [facility] Comment on above: Performed By: #### L 100.0100, L500.2500, L501.4020, L500.3400 ####[facility] [address] [place], [address] IG% 0.400 Normal 0.0-0.9 [facility] Comment on above: Result Comment: IG% - Immature Granulocytes (promyelocytes, myelocytes andmetamyelocytes) > 1% indicates that a LEFT SHIFT is Present. Performed By: #### L 100.0100, L500.2500, L501.4020, L500.3400 ####[facility] [address] [place], [address] Lymphocytes/100 WBC (Bld) 11.4 % Low 19-41 [facility] Comment on above: Performed By: #### L 100.0100, L500.2500, L501.4020, L500.3400 ####[facility] [address] [place], [address] MCH (RBC) [Entitic mass] 31.5 pg Normal 27.0-32.0 [facility] Comment on above: Performed By: #### L 100.0100, L500.2500, L501.4020, L500.3400 ####[facility] [address] [place], [address] MCHC (RBC) [Mass/Vol] 34.0 g/dL Normal 32-36 [facility] Comment on above: Performed By: #### L 100.0100, L500.2500, L501.4020, L500.3400 ####[facility] [address] [place], [address] MCV (RBC) [Entitic vol] 92.8 fL Normal 81-99 [facility] Comment on above: Performed By: #### L 100.0100, L500.2500, L501.4020, L500.3400 ####[facility] [address] [place], [address] Monocytes/100 WBC (Bld) 12.4 % High 0-10 [facility] Comment on above: Performed By: #### L 100.0100, L500.2500, L501.4020, L500.3400 ####[facility] [address] [place], [address] Neutrophils/100 WBC (Bld) 75.0 % High 47-70 [facility] Comment on above: Performed By: #### L 100.0100, L500.2500, L501.4020, L500.3400 ####[facility] [address] [place], [address] Nucleated RBC (Bld) [#/Vol] 0 10*3/uL Normal 0-5 [facility] Comment on above: Performed By: #### L 100.0100, L500.2500, L501.4020, L500.3400 ####[facility] [address] [place], [address] Platelet mean volume (Bld) [Entitic vol] 8.8 fL Normal 6.2-12.0 [facility] Comment on above: Performed By: #### L 100.0100, L500.2500, L501.4020, L500.3400 ####[facility] [address] [place], [address] Platelets (Bld) [#/Vol] 249 10*3/uL Normal 150-450 [facility] Comment on above: Performed By: #### L 100.0100, L500.2500, L501.4020, L500.3400 ####[facility] [address] [place], [address] RBC (Bld) [#/Vol] 4.28 10*6/uL Normal 4.2-5.4 [facility] Comment on above: Performed By: #### L 100.0100, L500.2500, L501.4020, L500.3400 ####[facility] [address] [place], [address] RDW SD 40.0 fl Normal 35.1-43.9 [facility] Comment on above: Performed By: #### L 100.0100, L500.2500, L501.4020, L500.3400 ####[facility] [address] [place], [address] WBC (Bld) [#/Vol] 5.2 10*3/uL Normal 4.4-11.0 [facility] Comment on above: Performed By: #### L 100.0100, L500.2500, L501.4020, L500.3400 ####[facility] [address] [place], [place], [address] Carbon dioxide measurementOr dered By: Julien Holder on 04-18-2024 CO2 [Moles/Vol] 27.0 mmol/L 21.0-32.0 [facility] Chest 1 View (Portable)on Chest 1 View (Portable) Normal [facility] Chloride measurementOrdered By: Julien Holder on 04-18-2024 Chloride [Moles/Vol] 96 mmol/L Low 98-107 [facility] Emergency Department Summary on 04-18-2024 Emergency Department Summary Normal [facility] Eosinophil percentageOrdered By: Julien Holder on 04-18-2024 Eosinophils/100 WBC (Bld) 0.4 % 0-5 [facility] Epithelial cells.squamous LM Ql (Urine sed)Ordered By: Julien Holder on 04-18-2024 Epithelial cells.squamous LM.HPF (Urine sed) [#/Area] 0 /[HPF] 5-10 [facility] Erythrocyte distribution wid th ratioOrdered By: Julien Holder on 04-18-2024 Erythrocyte distribution width (RBC) [Ratio] 11.8 % 11.6-14.6 [facility] Erythrocyte distribution wid th standard deviationOrdered By: Julien Holder on 04-18-2024 Erythrocyte distribution width (RBC) [Entitic vol] 40.0 fL 35.1-43.9 [facility] Erythrocyte distribution width (RBC) [Ratio] 40.0 fl 35.1-43.9 [facility] Estimated glomerular filtrat ion rate (GFR) AmericanOrdered By: Julien Holder on 04-18-2024 Estimated GFR (MDRD) Amer 137 mL/min >60 [facility] Comment on above: GFR Calc Estimation of creatinine carmine aranceOrdered By: Julien Holder on 04-18-2024 Estimated Creatinine Clearance Calc 57.03 ml/min [facility] Glomerular filtration rate ( GFR) estimationOrdered By: Julien Holder on 04-18-2024 Estimated GFR (MDRD) Non-Af Amer 113 mL/min >60 [facility] Comment on above: Non- GFR Calc GFR/1.73 sq M.predicted among non-blacks MDRD (S/P/Bld) [Vol rate/Area] 113 mL/min/{1.73_m2} >60 [facility] Comment on above: Non- GFR Calc Glucose Ql (U)Ordered By: Juan Holder on 04-18-2024 Urine Glucose (UA) Normal mg/dl Normal [facility] Glucose measurementOrdered B y: Julien Holder on 04-18-2024 Glucose [Mass/Vol] 96 mg/dL 74-106 [facility] Hematocrit Auto (Bld) [Volum e fraction]Ordered By: Julien Holder on 04-18-2024 Hematocrit (Bld) [Volume fraction] 39.7 % 37-47 [facility] Hemoglobin measurementOrdere d By: Julien Holder on 04-18-2024 Hemoglobin (Bld) [Mass/Vol] 13.5 g/dL 12.0-15.0 [facility] Immature granulocytes/100 WB C Auto (Bld)Ordered By: Julien Holder on 04-18-2024 Immature granulocytes/100 WBC (Bld) 0.400 % 0.0-0.9 [facility] Comment on above: IG% - Immature Granu locytes (promyelocytes, myelocytes and metamyelocytes) > 1% indicates that a LEFT SHIFT is Present. Ketones Test strip Ql (U)Ord ered By: Julien Holder on 04-18-2024 Ketones Ql (U) Negative Negative [facility] L501.4020on 04-18-2024 TROPONIN-I HS 4 pg/mL Normal 3.0-54.0 [facility] Comment on above: Order Comment: 'TROP ' Serial specimen #1, #2 or #3: 1 Result Comment: Amee bustos Note: New Test Units and Gender Specific Reference Ranges. For more information see Policy Stat Procedure [place] High Sensitivity Troponin (TNIH) and attachments. Performed By: #### L 100.0100, L500.2500, L501.4020, L500.3400 ####[facility] [address] [place], [address] Laboratory - Chemistry and C hemistry - challengeOrdered By: Julien Holder on 04-18-2024 AST [Catalytic activity/Vol] 36 U/L 15-37 [facility] Liver Profileon 04-18-2024 Albumin [Mass/Vol] 3.8 g/dL Normal 3.2-5.0 [facility] Comment on above: Order Comment: 'TROP ' Serial specimen #1, #2 or #3: 1 Performed By: #### L 100.0100, L500.2500, L501.4020, L500.3400 ####[facility] [address] [place], [address] ALK P 73 U/L Normal 45-117 [facility] Comment on above: Order Comment: 'TROP ' Serial specimen #1, #2 or #3: 1 Performed By: #### L 100.0100, L500.2500, L501.4020, L500.3400 ####[facility] [address] [place], [address] ALT [Catalytic activity/Vol] 36 U/L Normal 13-56 [facility] Comment on above: Order Comment: 'TROP ' Serial specimen #1, #2 or #3: 1 Performed By: #### L 100.0100, L500.2500, L501.4020, L500.3400 ####[facility] [address] [place], [address] AST [Catalytic activity/Vol] 36 U/L Normal 15-37 [facility] Comment on above: Order Comment: 'TROP ' Serial specimen #1, #2 or #3: 1 Performed By: #### L 100.0100, L500.2500, L501.4020, L500.3400 ####[facility] [address] [place], [address] Bilirubin [Mass/Vol] 0.50 mg/dL Normal 0.20-1.00 [facility] Comment on above: Order Comment: 'TROP ' Serial specimen #1, #2 or #3: 1 Result Comment: For patients on eltrombopag therapy, use of Dimension [place] TBIL is not recommended. Performed By: #### L 100.0100, L500.2500, L501.4020, L500.3400 ####[facility] [address] [place], [address] Bilirubin.direct [Mass/Vol] 0.14 mg/dL Normal 0.00-0.30 [facility] Comment on above: Order Comment: 'TROP ' Serial specimen #1, #2 or #3: 1 Performed By: #### L 100.0100, L500.2500, L501.4020, L500.3400 ####[facility] [address] [place], [address] Globulin (S) [Mass/Vol] 4.0 g/dL Normal 2.2-4.2 [facility] Comment on above: Order Comment: 'TROP ' Serial specimen #1, #2 or #3: 1 Performed By: #### L 100.0100, L500.2500, L501.4020, L500.3400 ####[facility] [address] [place], [address] T PROT 7.8 g/dL Normal 6.4-8.2 [facility] Comment on above: Order Comment: 'TROP ' Serial specimen #1, #2 or #3: 1 Performed By: #### L 100.0100, L500.2500, L501.4020, L500.3400 ####[facility] [address] [place], [address] Lymphocytes Auto (Unsp spec) [#/Vol]Ordered By: Julien Holder on 04-18-2024 Lymphocytes (Bld) [#/Vol] 0.59 10*3/uL Low 0.83-4.51 [facility] Lymphocytes/100 WBC Auto (Un sp spec)Ordered By: Julien Holder on 04-18-2024 Lymphocytes/100 WBC (Bld) 11.4 % Low 19-41 [facility] MCV (mean corpuscular volume ) determinationOrdered By: Julien Holder on 04-18-2024 MCV (RBC) [Entitic vol] 92.8 fL 81-99 [facility] Mean corpuscular hemoglobin (MCH) determinationOrdered By: Julien Holder on 04-18-2024 MCH (RBC) [Entitic mass] 31.5 pg 27.0-32.0 [facility] Mean corpuscular hemoglobin concentration (MCHC) determinationOrdered By: Julien Holder on 04-18-2024 MCHC (RBC) [Mass/Vol] 34.0 g/dL 32-36 [facility] Mean platelet volume determi nationOrdered By: Julien Holder on 04-18-2024 Platelet mean volume (Bld) [Entitic vol] 8.8 fL 6.2-12.0 [facility] Microscopic analysis of urin e for red blood cells (RBC)Ordered By: Julien Holder on 04-18-2024 Microscopic analysis of urine for red blood cells (RBC) 0 SEEN /hpf 0-5 [facility] Urine RBC 0 SEEN /hpf 0-5 [facility] Monocyte percentageOrdered B y: Julien Holder on 04-18-2024 Monocytes/100 WBC (Bld) 12.4 % High 0-10 [facility] Mucus LM Ql (Urine sed)Order ed By: Julien Holder on 04-18-2024 Mucus Ql (Urine sed) 0 SEEN /hpf [facility] Neutrophil percentageOrdered By: Julien Holder on 04-18-2024 Neutrophils/100 WBC (Bld) 75.0 % High 47-70 [facility] Nitrite Test strip Ql (U)Ord ered By: Julien Holder on 04-18-2024 Nitrite Ql (U) Negative Negative [facility] Nucleated red blood cell per centageOrdered By: Julien Holder on 04-18-2024 Nucleated RBC/100 WBC (Bld) [Ratio] 0 % 0-5 [facility] Platelet countOrdered By: Juan Holder on 04-18-2024 Platelets (Bld) [#/Vol] 249 10*3/uL 150-450 [facility] Potassium measurementOrdered By: Julien Holder on 04-18-2024 Potassium [Moles/Vol] 3.8 mmol/L 3.5-5.1 [facility] Protein Test strip Ql (U)Ord ered By: Julien Holder on 04-18-2024 Protein Ql (U) Negative Negative [facility] RBC Auto (Bld) [#/Vol]Ordere d By: Julien Holder on 04-18-2024 RBC (Bld) [#/Vol] 4.28 10*6/uL 4.2-5.4 [facility] Sacrum-Coccyx min 2 Viewson 04-18-2024 Sacrum-Coccyx min 2 Views Normal [facility] Serum anion gap measurementO rdered By: Julien Holder on 04-18-2024 Anion gap [Moles/Vol] 7 mmol/L 5-15 [facility] Serum globulin measurementOr dered By: Julien Holder on 04-18-2024 Globulin (S) [Mass/Vol] 4.0 g/dL 2.2-4.2 [facility] Serum or plasma alanine carballo otransferase (ALT) measurementOrdered By: Julien Holder on 04-18-2024 ALT [Catalytic activity/Vol] 36 U/L 13-56 [facility] Serum or plasma albumin anjel urement (mass/volume)Ordered By: Julien Holder on 04-18-2024 Albumin [Mass/Vol] 3.8 g/dL 3.2-5.0 [facility] Serum or plasma alkaline coretta sphatase measurementOrdered By: Julien Holder on 04-18-2024 ALP [Catalytic activity/Vol] 73 U/L 45-117 [facility] Serum or plasma calcium anjel urement (mass/volume)Ordered By: Julien Holder on 04-18-2024 Calcium [Mass/Vol] 8.9 mg/dL 8.5-10.1 [facility] Serum or plasma creatinine m easurement (mass/volume)Ordered By: Julien Holder on 04-18-2024 Creatinine [Mass/Vol] 0.56 mg/dL 0.55-1.02 [facility] Comment on above: The validity of the calculated GFR & GFRAA in patients over 70 years has not been determined. Clinical correlation is essential. Serum or plasma urea nitroge n measurement (mass/volume)Ordered By: Julien Holder on 04-18-2024 Urea nitrogen [Mass/Vol] 5 mg/dL Low 7-18 [facility] Sodium levelOrdered By: Neil Holder on 04-18-2024 Sodium [Moles/Vol] 130 mmol/L Low 136-145 [facility] Squamous epithelial cells de tection in urine sediment by light microscopyOrdered By: Julien Holder on 04-18-2024 Epithelial cells.squamous LM Ql (Urine sed) 0 SEEN /hpf 5-10 [facility] Total proteinOrdered By: Griffin Holder on 04-18-2024 Protein [Mass/Vol] 7.8 g/dL 6.4-8.2 [facility] Troponin IOrdered By: Julien Holder on 04-18-2024 Troponin I 4 pg/mL 3.0-54.0 [facility] Comment on above: Please Note: New Stephanie t Units and Gender Specific Reference Ranges. For more information see Policy Stat Procedure [place] High Sensitivity Troponin (TNIH) and attachments. Troponin I High Sensitivity 4 pg/mL 3.0-54.0 [facility] Comment on above: Please Note: New Stephanie t Units and Gender Specific Reference Ranges. For more information see Policy Stat Procedure [place] High Sensitivity Troponin (TNIH) and attachments. Urinalysis, Completeon 04-18 RBC 0 SEEN Normal 0-5 [facility] Comment on above: Order Comment: CLEAN CATCH Performed By: #### L 400.0001 ####[facility] [address] [place], [address] Urine blood detectionOrdered By: Julien Holder on 04-18-2024 Urine Occult Blood Negative Negative [facility] Urine clarityOrdered By: Griffin Holder on 04-18-2024 Clarity (U) Clear Clear [facility] Urine color determinationOrd ered By: Julien Holder on 04-18-2024 Color (U) Straw Yellow [facility] Urine glucose detectionOrder ed By: Julien Holder on 04-18-2024 Glucose Ql (U) Normal mg/dl Normal [facility] Urine leukocyte esterase det ection by dipstickOrdered By: Julien Holder on 04-18-2024 Leukocyte esterase Test strip Ql (U) Negative Negative [facility] Urine pHOrdered By: Julien marie on 04-18-2024 pH (U) 7.0 [pH] 5.0 - 8.0 [facility] Urine sediment bacteria coun t by microscopy (number/high power field)Ordered By: Julien Holder on 04-18-2024 Bacteria LM.HPF (Urine sed) [#/Area] RARE /hpf None Seen [facility] Urine specific gravity measu rementOrdered By: Julien Holder on 04-18-2024 Specific gravity (U) [Rel density] 1.005 1.002-1.030 [facility] Urine urobilinogen measureme ntOrdered By: Julien Holder on 04-18-2024 Urobilinogen Ql (U) Normal mg/dl Normal [facility] Urobilinogen Ql (U)Ordered B y: Julien Holder on 04-18-2024 Urine Urobilinogen Normal mg/dl Normal [facility] White blood cell (WBC) count Ordered By: Julien Holder on 04-18-2024 WBC (Bld) [#/Vol] 5.2 10*3/uL 4.4-11.0 [facility] White blood cell countOrdere d By: Julien Holder on 04-18-2024 Urine WBC 0 SEEN /hpf 0-5 [facility] White blood cell count 0 SEEN /hpf 0-5 [facility] Emergency Department Summary on 04-16-2024 Emergency Department Summary Normal [facility] Spine Lumbar without Contras ton 04-16-2024 Spine Lumbar without Contrast Normal [facility] Spine Thoracic without Contr ason 04-16-2024 Spine Thoracic without Contras Normal [facility] Albumin to globulin ratioOrd ered By: Easton Hanson on 04-12-2024 Albumin/Globulin [Mass ratio] 1.0 {ratio} 0.9-2.4 [facility] Bilirubin, totalOrdered By: Easton Hanson on 04-12-2024 Bilirubin [Mass/Vol] 0.30 mg/dL 0.20-1.00 [facility] Comment on above: For patients on eltr ombopag therapy, use of Dimension [place] TBIL is not recommended. Blood urea nitrogen (BUN)/cr eatinine ratioOrdered By: Easton Hanson on 04-12-2024 Urea nitrogen/Creatinine [Mass ratio] 12.3 mg/mg 10-20 [facility] Brain/Head without Contrasto n 04-12-2024 Brain/Head without Contrast Normal [facility] CBC-Complete Blood Cnt No Di ffon 04-12-2024 Erythrocyte distribution width (RBC) [Ratio] 11.9 % Normal 11.6-14.6 [facility] Comment on above: Performed By: #### L 500.4050, L100.0500, L501.5425 ####[facility] [address] [place], [address] Hematocrit (Bld) [Volume fraction] 37.2 % Normal 37-47 [facility] Comment on above: Performed By: #### L 500.4050, L100.0500, L501.5425 ####[facility] [address] [place], [address] Hemoglobin (Bld) [Mass/Vol] 12.6 g/dL Normal 12.0-15.0 [facility] Comment on above: Performed By: #### L 500.4050, L100.0500, L501.5425 ####[facility] [address] [place], [address] MCH (RBC) [Entitic mass] 31.7 pg Normal 27.0-32.0 [facility] Comment on above: Performed By: #### L 500.4050, L100.0500, L501.5425 ####[facility] [address] [place], [address] MCHC (RBC) [Mass/Vol] 33.9 g/dL Normal 32-36 [facility] Comment on above: Performed By: #### L 500.4050, L100.0500, L501.5425 ####[facility] [address] [place], [address] MCV (RBC) [Entitic vol] 93.5 fL Normal 81-99 [facility] Comment on above: Performed By: #### L 500.4050, L100.0500, L501.5425 ####[facility] [address] [place], [address] Platelet mean volume (Bld) [Entitic vol] 8.9 fL Normal 6.2-12.0 [facility] Comment on above: Performed By: #### L 500.4050, L100.0500, L501.5425 ####[facility] [address] [place], [address] Platelets (Bld) [#/Vol] 222 10*3/uL Normal 150-450 [facility] Comment on above: Performed By: #### L 500.4050, L100.0500, L501.5425 ####[facility] [address] [place], [address] RBC (Bld) [#/Vol] 3.98 10*6/uL Low 4.2-5.4 [facility] Comment on above: Performed By: #### L 500.4050, L100.0500, L501.5425 ####[facility] [address] [place], [address] RDW SD 41.4 fl Normal 35.1-43.9 [facility] Comment on above: Performed By: #### L 500.4050, L100.0500, L501.5425 ####[facility] [address] [place], [address] WBC (Bld) [#/Vol] 5.5 10*3/uL Normal 4.4-11.0 [facility] Comment on above: Performed By: #### L 500.4050, L100.0500, L501.5425 ####[facility] [address] [place], [address] Carbon dioxide measurementOr dered By: Easton Hanson on 04-12-2024 CO2 [Moles/Vol] 26.0 mmol/L 21.0-32.0 [facility] Chest 1 View (Portable)on Chest 1 View (Portable) Normal [facility] Chloride measurementOrdered By: Easton Hanson on 04-12-2024 Chloride [Moles/Vol] 95 mmol/L Low 98-107 [facility] Comprehensive Metabolic Prof ilon 04-12-2024 Albumin [Mass/Vol] 3.6 g/dL Normal 3.2-5.0 [facility] Comment on above: Performed By: #### L 500.4050, L100.0500, L501.5425 ####[facility] [address] [place], [address] Albumin/Globulin [Mass ratio] 1.0 {ratio} Normal 0.9-2.4 [facility] Comment on above: Performed By: #### L 500.4050, L100.0500, L501.5425 ####[facility] [address] [place], [address] ALK P 70 U/L Normal 45-117 [facility] Comment on above: Performed By: #### L 500.4050, L100.0500, L501.5425 ####[facility] [address] [place], [address] ALT [Catalytic activity/Vol] 23 U/L Normal 13-56 [facility] Comment on above: Performed By: #### L 500.4050, L100.0500, L501.5425 ####[facility] [address] [place], [address] AST [Catalytic activity/Vol] 26 U/L Normal 15-37 [facility] Comment on above: Performed By: #### L 500.4050, L100.0500, L501.5425 ####[facility] [address] [place], [address] Bilirubin [Mass/Vol] 0.30 mg/dL Normal 0.20-1.00 [facility] Comment on above: Result Comment: For patients on eltrombopag therapy, use of Dimension [place] TBIL is not recommended. Performed By: #### L 500.4050, L100.0500, L501.5425 ####[facility] [address] [place], [address] BUN/CRE 12.3 RATIO Normal 10-20 [facility] Comment on above: Performed By: #### L 500.4050, L100.0500, L501.5425 ####[facility] [address] [place], [address] CA,Total 9.0 mg/dL Normal 8.5-10.1 [facility] Comment on above: Performed By: #### L 500.4050, L100.0500, L501.5425 ####[facility] [address] [place], [address] Chloride [Moles/Vol] 95 mmol/L Low 98-107 [facility] Comment on above: Performed By: #### L 500.4050, L100.0500, L501.5425 ####[facility] [address] [place], [address] CO2 [Moles/Vol] 26.0 mmol/L Normal 21.0-32.0 [facility] Comment on above: Performed By: #### L 500.4050, L100.0500, L501.5425 ####[facility] [address] [place], [address] Creatinine [Mass/Vol] 0.65 mg/dL Normal 0.55-1.02 [facility] Comment on above: Result Comment: The validity of the calculated GFR GFRAA in patients over70 years has not been determined. Clinical correlation isessential. Performed By: #### L 500.4050, L100.0500, L501.5425 ####[facility] [address] [place], [address] ECRCL 57.44 ml/min Normal [facility] Comment on above: Performed By: #### L 500.4050, L100.0500, L501.5425 ####[facility] [address] [place], [address] EST GFR - AA 114 mL/min Normal >60 [facility] Comment on above: Result Comment: Afri can Welsh GFR Calc Performed By: #### L 500.4050, L100.0500, L501.5425 ####[facility] [address] [place], [address] GAP 8 Normal 5-15 [facility] Comment on above: Performed By: #### L 500.4050, L100.0500, L501.5425 ####[facility] [address] [place], [address] GFR/1.73 sq M.predicted among non-blacks MDRD (S/P/Bld) [Vol rate/Area] 95 mL/min/{1.73_m2} Normal >60 [facility] Comment on above: Result Comment: Non- GFR Calc Performed By: #### L 500.4050, L100.0500, L501.5425 ####[facility] [address] [place], [address] Globulin (S) [Mass/Vol] 3.6 g/dL Normal 2.2-4.2 [facility] Comment on above: Performed By: #### L 500.4050, L100.0500, L501.5425 ####[facility] [address] [place], [address] Glucose [Mass/Vol] 108 mg/dL High 74-106 [facility] Comment on above: Result Comment: Fast ing Glucose result from 100 to 125 mg/dLsuggests IMPAIRED HOMEOSTASIS per A.D.A. criteria. Performed By: #### L 500.4050, L100.0500, L501.5425 ####[facility] [address] [place], [address] Potassium [Moles/Vol] 3.8 mmol/L Normal 3.5-5.1 [facility] Comment on above: Performed By: #### L 500.4050, L100.0500, L501.5425 ####[facility] [address] [place], [address] Sodium [Moles/Vol] 130 mmol/L Low 136-145 [facility] Comment on above: Performed By: #### L 500.4050, L100.0500, L501.5425 ####[facility] [address] [place], [address] T PROT 7.2 g/dL Normal 6.4-8.2 [facility] Comment on above: Performed By: #### L 500.4050, L100.0500, L501.5425 ####[facility] [address] [place], [address] Urea nitrogen [Mass/Vol] 8 mg/dL Normal - [facility] Comment on above: Performed By: #### L 500.4050, L100.0500, L501.5425 ####[facility] [address] [place], [address] Emergency Department Summary on 04-12-2024 Emergency Department Summary Normal [facility] Erythrocyte distribution wid th ratioOrdered By: Easton Hanson on 04-12-2024 Erythrocyte distribution width (RBC) [Ratio] 11.9 % 11.6-14.6 [facility] Erythrocyte distribution wid th standard deviationOrdered By: Easton Hanson on 04-12-2024 Erythrocyte distribution width (RBC) [Entitic vol] 41.4 fL 35.1-43.9 [facility] Erythrocyte distribution width (RBC) [Ratio] 41.4 fl 35.1-43.9 [facility] Estimated glomerular filtrat ion rate (GFR) AmericanOrdered By: Easton Hanson on 04-12-2024 Estimated GFR (MDRD) Amer 114 mL/min >60 [facility] Comment on above: GFR Calc Estimation of creatinine carmine aranceOrdered By: Easton Hanson on 04-12-2024 Estimated Creatinine Clearance Calc 57.44 ml/min [facility] Glomerular filtration rate ( GFR) estimationOrdered By: Easton Hanson on 04-12-2024 Estimated GFR (MDRD) Non-Af Amer 95 mL/min >60 [facility] Comment on above: Non- GFR Calc GFR/1.73 sq M.predicted among non-blacks MDRD (S/P/Bld) [Vol rate/Area] 95 mL/min/{1.73_m2} >60 [facility] Comment on above: Non- GFR Calc Glucose measurementOrdered B y: Easton Hanson on 04-12-2024 Glucose [Mass/Vol] 108 mg/dL High 74-106 [facility] Comment on above: Fasting Glucose resu lt from 100 to 125 mg/dL suggests IMPAIRED HOMEOSTASIS per A.D.A. criteria. Hematocrit Auto (Bld) [Volum e fraction]Ordered By: Easton Hanson on 04-12-2024 Hematocrit (Bld) [Volume fraction] 37.2 % 37-47 [facility] Hemoglobin measurementOrdere d By: Easton Hanson on 04-12-2024 Hemoglobin (Bld) [Mass/Vol] 12.6 g/dL 12.0-15.0 [facility] L501.4020on 04-12-2024 TROPONIN-I HS 4 pg/mL Normal 3.0-54.0 [facility] Comment on above: Result Comment: Plea se Note: New Test Units and Gender Specific Reference Ranges. For more information see Policy Stat Procedure [place] High Sensitivity Troponin (TNIH) and attachments. Performed By: #### L 501.4020 ####[facility] [address] [place], [place], [address] L501.5425on 04-12-2024 TROPONIN-I HS 4 pg/mL Normal 3.0-54.0 [facility] Comment on above: Order Comment: 1Y Result Comment: Plea se Note: New Test Units and Gender Specific Reference Ranges. For more information see Policy Stat Procedure [place] High Sensitivity Troponin (TNIH) and attachments. Performed By: #### L 500.4050, L100.0500, L501.5425 ####[facility] [address] [place], [address] Laboratory - Chemistry and C hemistry - challengeOrdered By: Easton Hanson on 04-12-2024 AST [Catalytic activity/Vol] 26 U/L 15-37 [facility] MCV (mean corpuscular volume ) determinationOrdered By: Easton Hanson on 04-12-2024 MCV (RBC) [Entitic vol] 93.5 fL 81-99 [facility] Mean corpuscular hemoglobin (MCH) determinationOrdered By: Easton Hanson on 04-12-2024 MCH (RBC) [Entitic mass] 31.7 pg 27.0-32.0 [facility] Mean corpuscular hemoglobin concentration (MCHC) determinationOrdered By: Easton Hanson on 04-12-2024 MCHC (RBC) [Mass/Vol] 33.9 g/dL 32-36 [facility] Mean platelet volume determi nationOrdered By: Easton Hanson on 04-12-2024 Platelet mean volume (Bld) [Entitic vol] 8.9 fL 6.2-12.0 [facility] No Panel InformationOrdered By: Ang Skaggs on 04-12-2024 Influenza Types A,B Rapid (Clinic) Pos FLU B&Neg FLU A [facility] Platelet countOrdered By: roman Hanson on 04-12-2024 Platelets (Bld) [#/Vol] 222 10*3/uL 150-450 [facility] Potassium measurementOrdered By: Easton Hanson on 04-12-2024 Potassium [Moles/Vol] 3.8 mmol/L 3.5-5.1 [facility] RBC Auto (Bld) [#/Vol]Ordere d By: Easton Hanson on 04-12-2024 RBC (Bld) [#/Vol] 3.98 10*6/uL Low 4.2-5.4 [facility] Serum anion gap measurementO rdered By: Easton Hanson on 04-12-2024 Anion gap [Moles/Vol] 8 mmol/L 5-15 [facility] Serum globulin measurementOr dered By: Easton Hanson on 04-12-2024 Globulin (S) [Mass/Vol] 3.6 g/dL 2.2-4.2 [facility] Serum or plasma alanine carballo otransferase (ALT) measurementOrdered By: Easton Hanson on 04-12-2024 ALT [Catalytic activity/Vol] 23 U/L 13-56 [facility] Serum or plasma albumin anjel urement (mass/volume)Ordered By: Easton Hanson on 04-12-2024 Albumin [Mass/Vol] 3.6 g/dL 3.2-5.0 [facility] Serum or plasma alkaline coretta sphatase measurementOrdered By: Easton Hanson on 04-12-2024 ALP [Catalytic activity/Vol] 70 U/L 45-117 [facility] Serum or plasma calcium anjel urement (mass/volume)Ordered By: Easton Hanson on 04-12-2024 Calcium [Mass/Vol] 9.0 mg/dL 8.5-10.1 [facility] Serum or plasma creatinine m easurement (mass/volume)Ordered By: Easton Hanson on 04-12-2024 Creatinine [Mass/Vol] 0.65 mg/dL 0.55-1.02 [facility] Comment on above: The validity of the calculated GFR & GFRAA in patients over 70 years has not been determined. Clinical correlation is essential. Serum or plasma urea nitroge n measurement (mass/volume)Ordered By: Easton Hanson on 04-12-2024 Urea nitrogen [Mass/Vol] 8 mg/dL 7-18 [facility] Sodium levelOrdered By: Krysta Hanson on 04-12-2024 Sodium [Moles/Vol] 130 mmol/L Low 136-145 [facility] Spine Cervical without Contr ason 04-12-2024 Spine Cervical without Contras Normal [facility] Total proteinOrdered By: Sarah Hanson on 04-12-2024 Protein [Mass/Vol] 7.2 g/dL 6.4-8.2 [facility] Troponin IOrdered By: Easton Hanson on 04-12-2024 Troponin I 4 pg/mL 3.0-54.0 [facility] Comment on above: Please Note: New Stephanie t Units and Gender Specific Reference Ranges. For more information see Policy Stat Procedure [place] High Sensitivity Troponin (TNIH) and attachments. Troponin I High Sensitivity 4 pg/mL 3.0-54.0 [facility] Comment on above: Please Note: New Stephanie t Units and Gender Specific Reference Ranges. For more information see Policy Stat Procedure [place] High Sensitivity Troponin (TNIH) and attachments. Urgent Care Visit Reporton 0 04-12-2024 Urgent Care Visit Report Normal [facility] White blood cell (WBC) count Ordered By: Easton Hanson on 04-12-2024 WBC (Bld) [#/Vol] 5.5 10*3/uL 4.4-11.0 [facility] RONNELL w/ Reflex Mult Confirmon 04-06-2024 ANTI-DNA (DS)AB TNP Normal [facility] Comment on above: Performed By: #### L 3130.0010, L501.5200, L500.4050, L100.0100, L101.9900, L501.9520, L501.6710, L3100.5450 ####[facility] [address] [place], [place], [id number] ANTISCLERODERM TNP Normal [facility] Comment on above: Performed By: #### L 3130.0010, L501.5200, L500.4050, L100.0100, L101.9900, L501.9520, L501.6710, L3100.5450 ####[facility] [address] [place], [place], [id number] Rosharon Lambda Light Chainson 04-06-2024 FR KAPPA LT CHN 14.7 mg/L Normal 3.3-19.4 [facility] Comment on above: Performed By: #### L 3130.0010, L501.5200, L500.4050, L100.0100, L101.9900, L501.9520, L501.6710, L3100.5450 ####[facility] [address] [place], [place], [id number] FR LAMBDA LT CH 11.5 mg/L Normal 5.7-26.3 [facility] Comment on above: Performed By: #### L 3130.0010, L501.5200, L500.4050, L100.0100, L101.9900, L501.9520, L501.6710, L3100.5450 ####[facility] [address] [place], [place], [id number] KAPPA/LAMBDA % 1.28 Normal 0.26-1.65 [facility] Comment on above: Result Comment: Perf ormed at: - [facility] [place], [place] [id number] Director: Dannie Meza PhD, Phone: [phone] Performed By: #### L 3130.0010, L501.5200, L500.4050, L100.0100, L101.9900, L501.9520, L501.2710, L3100.5450 ####[facility] [address] [place], [address] RONNELL serumOrdered By: Linda bob on 04-04-2024 Anti-Nuclear Antibody Screen Negative Negative [facility] Comment on above: Performed at: [place] [id number] Director: Dannie Meza PhD, Phone: [phone] Absolute lymphocyte countOrd ered By: Linda Amaya on 04-04-2024 Lymphocytes Auto (Unsp spec) [#/Vol] 0.65 10*3/uL Low 0.83-4.51 [facility] Absolute neutrophil countOrd ered By: Linda Amaya on 04-04-2024 Neutrophils (Bld) [#/Vol] 5.8 10*3/uL 2.0-7.7 [facility] Albumin to globulin ratioOrd ered By: Linda Amaya on 04-04-2024 Albumin/Globulin [Mass ratio] 1.1 {ratio} 0.9-2.4 [facility] Automated lymphocyte count a s percentage of total leukocytesOrdered By: Linda Amaya on 04-04-2024 Lymphocytes/100 WBC Auto (Unsp spec) 9.0 % Low 19-41 [facility] Basophil percentageOrdered B y: Linda Amaya on 04-04-2024 Basophils/100 WBC (Bld) 0.6 % 0-1 [facility] Bilirubin, totalOrdered By: Linda Amaya on 04-04-2024 Bilirubin [Mass/Vol] 0.40 mg/dL 0.20-1.00 [facility] Comment on above: For patients on eltr ombopag therapy, use of Dimension [place] TBIL is not recommended. Blood urea nitrogen (BUN)/cr eatinine ratioOrdered By: Linda mAaya on 04-04-2024 Urea nitrogen/Creatinine [Mass ratio] 13.2 mg/mg 12-12 [facility] C-reactive protein measureme nt by high sensitivity methodOrdered By: Linda Amaya on 04-04-2024 C-Reactive Protein Extended Range < 2.90 mg/L 0.0-3.0 [facility] Comment on above: C-Reactive Protein ( CRP) provides useful information for thediagnosis, therapy and monitoring of inflammatory processesand associated diseases. For the evaluation of Relative Riskfor Cardiovascular Disease, a High Sensitivity CRP (HSCRP)should be ordered. CBC W/Diff, Automatedon 03-26 Absolute Lymph 0.65 X10 3/uL Low 0.83-4.51 [facility] Comment on above: Performed By: #### L 3130.0010, L501.5200, L500.4050, L100.0100, L101.9900, L501.9520, L501.6710, L3100.5450 ####[facility] [address] [place], [address] Absolute Neut 5.8 X10 3/uL Normal 2.0-7.7 [facility] Comment on above: Performed By: #### L 3130.0010, L501.5200, L500.4050, L100.0100, L101.9900, L501.9520, L501.6710, L3100.5450 ####[facility] [address] [place], [address] Basophils/100 WBC (Bld) 0.6 % Normal 0-1 [facility] Comment on above: Performed By: #### L 3130.0010, L501.5200, L500.4050, L100.0100, L101.9900, L501.9520, L501.6710, L3100.5450 ####[facility] [address] [place], [address] Eosinophils/100 WBC (Bld) 0.6 % Normal 0-5 [facility] Comment on above: Performed By: #### L 3130.0010, L501.5200, L500.4050, L100.0100, L101.9900, L501.9520, L501.6710, L3100.5450 ####[facility] [address] [place], [address] Erythrocyte distribution width (RBC) [Ratio] 12.0 % Normal 11.6-14.6 [facility] Comment on above: Performed By: #### L 3130.0010, L501.5200, L500.4050, L100.0100, L101.9900, L501.9520, L501.6710, L3100.5450 ####[facility] [address] [place], [address](407) Hematocrit (Bld) [Volume fraction] 37.3 % Normal 37-47 [facility] Comment on above: Performed By: #### L 3130.0010, L501.5200, L500.4050, L100.0100, L101.9900, L501.9520, L501.6710, L3100.5450 ####[facility] [address] [place], [address]) Hemoglobin (Bld) [Mass/Vol] 12.7 g/dL Normal 12.0-15.0 [facility] Comment on above: Performed By: #### L 3130.0010, L501.5200, L500.4050, L100.0100, L101.9900, L501.9520, L501.6710, L3100.5450 ####[facility] [address] [place], [address] IG% 0.300 Normal 0.0-0.9 [facility] Comment on above: Result Comment: IG% - Immature Granulocytes (promyelocytes, myelocytes andmetamyelocytes) > 1% indicates that a LEFT SHIFT is Present. Performed By: #### L 3130.0010, L501.5200, L500.4050, L100.0100, L101.9900, L501.9520, L501.6710, L3100.5450 ####[facility] [address] [place], [address] Lymphocytes/100 WBC (Bld) 9.0 % Low 19-41 [facility] Comment on above: Performed By: #### L 3130.0010, L501.5200, L500.4050, L100.0100, L101.9900, L501.9520, L501.6710, L3100.5450 ####[facility] [address] [place], [address] MCH (RBC) [Entitic mass] 32.0 pg Normal 27.0-32.0 [facility] Comment on above: Performed By: #### L 3130.0010, L501.5200, L500.4050, L100.0100, L101.9900, L501.9520, L501.6710, L3100.5450 ####[facility] [address] [place], [address] MCHC (RBC) [Mass/Vol] 34.0 g/dL Normal 32-36 [facility] Comment on above: Performed By: #### L 3130.0010, L501.5200, L500.4050, L100.0100, L101.9900, L501.9520, L501.6710, L3100.5450 ####[facility] [address] [place], [address] MCV (RBC) [Entitic vol] 94.0 fL Normal 81-99 [facility] Comment on above: Performed By: #### L 3130.0010, L501.5200, L500.4050, L100.0100, L101.9900, L501.9520, L501.6710, L3100.5450 ####[facility] [address] [place], [address] Monocytes/100 WBC (Bld) 10.2 % High 0-10 [facility] Comment on above: Performed By: #### L 3130.0010, L501.5200, L500.4050, L100.0100, L101.9900, L501.9520, L501.6710, L3100.5450 ####[facility] [address] [place], [address] Neutrophils/100 WBC (Bld) 79.3 % High 47-70 [facility] Comment on above: Performed By: #### L 3130.0010, L501.5200, L500.4050, L100.0100, L101.9900, L501.9520, L501.6710, L3100.5450 ####[facility] [address] [place], [address] Nucleated RBC (Bld) [#/Vol] 0 10*3/uL Normal 0-5 [facility] Comment on above: Performed By: #### L 3130.0010, L501.5200, L500.4050, L100.0100, L101.9900, L501.9520, L501.6710, L3100.5450 ####[facility] [address] [place], [address] Platelet mean volume (Bld) [Entitic vol] 9.7 fL Normal 6.2-12.0 [facility] Comment on above: Performed By: #### L 3130.0010, L501.5200, L500.4050, L100.0100, L101.9900, L501.9520, L501.6710, L3100.5450 ####[facility] [address] [place], [address] Platelets (Bld) [#/Vol] 332 10*3/uL Normal 150-450 [facility] Comment on above: Performed By: #### L 3130.0010, L501.5200, L500.4050, L100.0100, L101.9900, L501.9520, L501.6710, L3100.5450 ####[facility] [address] [place], [address] RBC (Bld) [#/Vol] 3.97 10*6/uL Low 4.2-5.4 [facility] Comment on above: Performed By: #### L 3130.0010, L501.5200, L500.4050, L100.0100, L101.9900, L501.9520, L501.6710, L3100.5450 ####[facility] [address] [place], [address] RDW SD 41.7 fl Normal 35.1-43.9 [facility] Comment on above: Performed By: #### L 3130.0010, L501.5200, L500.4050, L100.0100, L101.9900, L501.9520, L501.6710, L3100.5450 ####[facility] [address] [place], [address] WBC (Bld) [#/Vol] 7.3 10*3/uL Normal 4.4-11.0 [facility] Comment on above: Performed By: #### L 3130.0010, L501.5200, L500.4050, L100.0100, L101.9900, L501.9520, L501.6710, L3100.5450 ####[facility] [address] [place], [address] CRPon 04-04-2024 C-REACTIVE PROT < 2.90 Normal 0.0-3.0 [facility] Comment on above: Result Comment: C-Re active Protein (CRP) provides useful information for thediagnosis, therapy and monitoring of inflammatory processesand associated diseases. For the evaluation of Relative Riskfor Cardiovascular Disease, a High Sensitivity CRP (HSCRP)should be ordered. Performed By: #### L 3130.0010, L501.5200, L500.4050, L100.0100, L101.9900, L501.9520, L501.6710, L3100.5450 ####[facility] [address] [place], [place], [id number] Carbon dioxide measurementOr dered By: Linda Amaya on 04-04-2024 CO2 [Moles/Vol] 27.0 mmol/L 21.0-32.0 [facility] Centromere B antibody assayO rdered By: Linda Amaya on 04-04-2024 Centromere B Antibody [facility] Comment on above: Test not performed Chloride measurementOrdered By: Linda Amaya on 04-04-2024 Chloride [Moles/Vol] 100 mmol/L 98-107 [facility] Chromatin antibody assayOrde red By: Linda Amaya on 04-04-2024 Antichromatin Antibodies [facility] Comment on above: Test not performed Comprehensive Metabolic Prof ilon 04-04-2024 Albumin [Mass/Vol] 3.9 g/dL Normal 3.2-5.0 [facility] Comment on above: Performed By: #### L 3130.0010, L501.5200, L500.4050, L100.0100, L101.9900, L501.9520, L501.6710, L3100.5450 ####[facility] [address] [place], [place], [id number] Albumin/Globulin [Mass ratio] 1.1 {ratio} Normal 0.9-2.4 [facility] Comment on above: Performed By: #### L 3130.0010, L501.5200, L500.4050, L100.0100, L101.9900, L501.9520, L501.6710, L3100.5450 ####[facility] [address] [place], [address] ALK P 61 U/L Normal 45-117 [facility] Comment on above: Performed By: #### L 3130.0010, L501.5200, L500.4050, L100.0100, L101.9900, L501.9520, L501.6710, L3100.5450 ####[facility] [address] [place], [address] ALT [Catalytic activity/Vol] 19 U/L Normal 13-56 [facility] Comment on above: Performed By: #### L 3130.0010, L501.5200, L500.4050, L100.0100, L101.9900, L501.9520, L501.6710, L3100.5450 ####[facility] [address] [place], [address] AST [Catalytic activity/Vol] 15 U/L Normal 15-37 [facility] Comment on above: Performed By: #### L 3130.0010, L501.5200, L500.4050, L100.0100, L101.9900, L501.9520, L501.6710, L3100.5450 ####[facility] [address] [place], [address] Bilirubin [Mass/Vol] 0.40 mg/dL Normal 0.20-1.00 [facility] Comment on above: Result Comment: For patients on eltrombopag therapy, use of Dimension [place] TBIL is not recommended. Performed By: #### L 3130.0010, L501.5200, L500.4050, L100.0100, L101.9900, L501.9520, L501.6710, L3100.5450 ####[facility] [address] [place], [address] BUN/CRE 13.2 RATIO Normal 10-20 [facility] Comment on above: Performed By: #### L 3130.0010, L501.5200, L500.4050, L100.0100, L101.9900, L501.9520, L501.6710, L3100.5450 ####[facility] [address] [place], [address] CA,Total 9.2 mg/dL Normal 8.5-10.1 [facility] Comment on above: Performed By: #### L 3130.0010, L501.5200, L500.4050, L100.0100, L101.9900, L501.9520, L501.6710, L3100.5450 ####[facility] [address] [place], [address] Chloride [Moles/Vol] 100 mmol/L Normal 98-107 [facility] Comment on above: Performed By: #### L 3130.0010, L501.5200, L500.4050, L100.0100, L101.9900, L501.9520, L501.6710, L3100.5450 ####[facility] [address] [place], [address] CO2 [Moles/Vol] 27.0 mmol/L Normal 21.0-32.0 [facility] Comment on above: Performed By: #### L 3130.0010, L501.5200, L500.4050, L100.0100, L101.9900, L501.9520, L501.6710, L3100.5450 ####[facility] [address] [place], [address] Creatinine [Mass/Vol] 0.61 mg/dL Normal 0.55-1.02 [facility] Comment on above: Result Comment: The validity of the calculated GFR GFRAA in patients over70 years has not been determined. Clinical correlation isessential. Performed By: #### L 3130.0010, L501.5200, L500.4050, L100.0100, L101.9900, L501.9520, L501.6710, L3100.5450 ####[facility] [address] [place], [address] EST GFR - AA 124 mL/min Normal >60 [facility] Comment on above: Result Comment: Afri can Welsh GFR Calc Performed By: #### L 3130.0010, L501.5200, L500.4050, L100.0100, L101.9900, L501.9520, L501.6710, L3100.5450 ####[facility] [address] [place], [address] GAP 7 Normal 5-15 [facility] Comment on above: Performed By: #### L 3130.0010, L501.5200, L500.4050, L100.0100, L101.9900, L501.9520, L501.6710, L3100.5450 ####[facility] [address] [place], [address] GFR/1.73 sq M.predicted among non-blacks MDRD (S/P/Bld) [Vol rate/Area] 102 mL/min/{1.73_m2} Normal >60 [facility] Comment on above: Result Comment: Non- GFR Calc Performed By: #### L 3130.0010, L501.5200, L500.4050, L100.0100, L101.9900, L501.9520, L501.6710, L3100.5450 ####[facility] [address] [place], [address] Globulin (S) [Mass/Vol] 3.4 g/dL Normal 2.2-4.2 [facility] Comment on above: Performed By: #### L 3130.0010, L501.5200, L500.4050, L100.0100, L101.9900, L501.9520, L501.6710, L3100.5450 ####[facility] [address] [place], [address] Glucose [Mass/Vol] 98 mg/dL Normal 74-106 [facility] Comment on above: Performed By: #### L 3130.0010, L501.5200, L500.4050, L100.0100, L101.9900, L501.9520, L501.6710, L3100.5450 ####[facility] [address] [place], [address] Potassium [Moles/Vol] 3.5 mmol/L Normal 3.5-5.1 [facility] Comment on above: Performed By: #### L 3130.0010, L501.5200, L500.4050, L100.0100, L101.9900, L501.9520, L501.6710, L3100.5450 ####[facility] [address] [place], [address] Sodium [Moles/Vol] 134 mmol/L Low 136-145 [facility] Comment on above: Performed By: #### L 3130.0010, L501.5200, L500.4050, L100.0100, L101.9900, L501.9520, L501.6710, L3100.5450 ####[facility] [address] [place], [address] T PROT 7.3 g/dL Normal 6.4-8.2 [facility] Comment on above: Performed By: #### L 3130.0010, L501.5200, L500.4050, L100.0100, L101.9900, L501.9520, L501.6710, L3100.5450 ####[facility] [address] [place], [address] Urea nitrogen [Mass/Vol] 8 mg/dL Normal 7-18 [facility] Comment on above: Performed By: #### L 3130.0010, L501.5200, L500.4050, L100.0100, L101.9900, L501.9520, L501.6710, L3100.5450 ####[facility] [address] [place], [place], [id number] DNA double strand Ab Qn (S)O rdered By: Linda Amaya on 04-04-2024 Anti-Double Strand DNA Antibody TNP [facility] Comment on above: Test not performed Eosinophil percentageOrdered By: Linda Amaya on 04-04-2024 Eosinophils/100 WBC (Bld) 0.6 % 0-5 [facility] Erythrocyte Sed Rateon 04-04 SED RATE 5 mm/hr Normal 0-30 [facility] Comment on above: Performed By: #### L 3130.0010, L501.5200, L500.4050, L100.0100, L101.9900, L501.9520, L501.6710, L3100.5450 ####[facility] [address] [place], [place], [id number] Erythrocyte distribution wid th ratioOrdered By: Linda Amaya on 04-04-2024 Erythrocyte distribution width (RBC) [Ratio] 12.0 % 11.6-14.6 [facility] Erythrocyte distribution wid th standard deviationOrdered By: Linda Amaya on 04-04-2024 Erythrocyte distribution width (RBC) [Entitic vol] 41.7 fL 35.1-43.9 [facility] Erythrocyte distribution width (RBC) [Ratio] 41.7 fl 35.1-43.9 [facility] Erythrocyte sedimentation ra teOrdered By: Linda Amaya on 04-04-2024 ESR (Bld) [Velocity] 5 mm/h 0-30 [facility] Estimated glomerular filtrat ion rate (GFR) AmericanOrdered By: Linda Amaya on 04-04-2024 Estimated GFR (MDRD) Amer 124 mL/min >60 [facility] Comment on above: GFR Calc Glomerular filtration rate ( GFR) estimationOrdered By: Linda Amaya on 04-04-2024 Estimated GFR (MDRD) Non-Af Amer 102 mL/min >60 [facility] Comment on above: Non- GFR Calc GFR/1.73 sq M.predicted among non-blacks MDRD (S/P/Bld) [Vol rate/Area] 102 mL/min/{1.73_m2} >60 [facility] Comment on above: Non- GFR Calc Glucose measurementOrdered B y: Linda Amaya on 04-04-2024 Glucose [Mass/Vol] 98 mg/dL 74-106 [facility] Hematocrit Auto (Bld) [Volum e fraction]Ordered By: Lindayasemin Amaya on 04-04-2024 Hematocrit (Bld) [Volume fraction] 37.3 % 37-47 [facility] Hemoglobin measurementOrdere d By: Linda Amaya on 04-04-2024 Hemoglobin (Bld) [Mass/Vol] 12.7 g/dL 12.0-15.0 [facility] Immature granulocytes/100 WB C Auto (Bld)Ordered By: Linda Amaya on 04-04-2024 Immature granulocytes/100 WBC (Bld) 0.300 % 0.0-0.9 [facility] Comment on above: IG% - Immature Granu locytes (promyelocytes, myelocytes and metamyelocytes) > 1% indicates that a LEFT SHIFT is Present. Immunoglobulin light chains. kappa [Mass/Vol]Ordered By: Linda Amaya on 04-04-2024 Free Rosharon Light Chains, Quant 14.7 mg/L 3.3-19.4 [facility] Immunoglobulin light chains. kappa/Immunoglobulin light chains.lambda (S) [Mass ratio]Ordered By: Linda Amaya on 04-04-2024 Free Rosharon/Lambda Light Chain Ratio 1.28 0.26-1.65 [facility] Comment on above: Performed at: [address] [id number] Director: Dannie Meza PhD, Phone: [phone] Zhanna-1 antibody assayOrdered B y: Linda Amaya on 04-04-2024 ZHANNA-1 Antibody TNP [facility] Comment on above: Test not performed Laboratory - Chemistry and C hemistry - challengeOrdered By: Linda Amaya on 04-04-2024 AST [Catalytic activity/Vol] 15 U/L 15-37 [facility] Lambda free light chain anjel urementOrdered By: Linda Amaya on 04-04-2024 Free Lambda Light Chains, Quant 11.5 mg/L 5.7-26.3 [facility] Lymphocytes Auto (Unsp spec) [#/Vol]Ordered By: Linda Amaya on 04-04-2024 Lymphocytes (Bld) [#/Vol] 0.65 10*3/uL Low 0.83-4.51 [facility] Lymphocytes/100 WBC Auto (Un sp spec)Ordered By: Linda Amaya on 04-04-2024 Lymphocytes/100 WBC (Bld) 9.0 % Low 19-41 [facility] MCV (mean corpuscular volume ) determinationOrdered By: Lindayasemin Amaya on 04-04-2024 MCV (RBC) [Entitic vol] 94.0 fL 81-99 [facility] Magnesiumon 04-04-2024 Magnesium [Mass/Vol] 2.4 mg/dL Normal 1.6-2.6 [facility] Comment on above: Performed By: #### L 3130.0010, L501.5200, L500.4050, L100.0100, L101.9900, L501.9520, L501.6710, L3100.5450 ####[facility] [address] [place], [place], [id number] Magnesium measurementOrdered By: Linda Amaya on 04-04-2024 Magnesium [Mass/Vol] 2.4 mg/dL 1.6-2.6 [facility] Mean corpuscular hemoglobin (MCH) determinationOrdered By: Linda Amaya on 04-04-2024 MCH (RBC) [Entitic mass] 32.0 pg 27.0-32.0 [facility] Mean corpuscular hemoglobin concentration (MCHC) determinationOrdered By: Linda Amaya on 04-04-2024 MCHC (RBC) [Mass/Vol] 34.0 g/dL 32-36 [facility] Mean platelet volume determi nationOrdered By: Linda Amaya on 04-04-2024 Platelet mean volume (Bld) [Entitic vol] 9.7 fL 6.2-12.0 [facility] Monocyte percentageOrdered B y: Linda Amaya on 04-04-2024 Monocytes/100 WBC (Bld) 10.2 % High 0-10 [facility] Neurology Visit Reporton Neurology Visit Report Normal [facility] Neutrophil percentageOrdered By: Linda Amaya on 04-04-2024 Neutrophils/100 WBC (Bld) 79.3 % High 47-70 [facility] Nucleated red blood cell per centageOrdered By: Linda Amaya on 04-04-2024 Nucleated RBC/100 WBC (Bld) [Ratio] 0 % 0-5 [facility] Platelet countOrdered By: Aiden Amaya on 04-04-2024 Platelets (Bld) [#/Vol] 332 10*3/uL 150-450 [facility] Potassium measurementOrdered By: Linda Amaya on 04-04-2024 Potassium [Moles/Vol] 3.5 mmol/L 3.5-5.1 [facility] RBC Auto (Bld) [#/Vol]Ordere d By: Linda Amaya on 04-04-2024 RBC (Bld) [#/Vol] 3.97 10*6/uL Low 4.2-5.4 [facility] DETENTION DEPUTY abOrdered By: Linda ndiaye on 04-04-2024 DETENTION DEPUTY Antibody [facility] Comment on above: Test not performed SCL-70 extractable nuclear A b Qn (S)Ordered By: Linda Amaya on 04-04-2024 Scl-70 (Scleroderma) Antibody [facility] Comment on above: Test not performed SS-A IgG antibody assayOrder ed By: Linda Amaya on 04-04-2024 SS-A/Ro IgG Antibody [facility] Comment on above: Test not performed SS-B IgG antibody assayOrder ed By: Linda Amaya on 04-04-2024 SS-B/La IgG Antibody [facility] Comment on above: Test not performed Serum DNA double strand anti body assay (units/volume)Ordered By: Linda Amaya on 04-04-2024 DNA double strand Ab Qn (S) [facility] Comment on above: Test not performed Serum Scl-70 antibody assay (units/volume)Ordered By: Linda Amaya on 04-04-2024 SCL-70 extractable nuclear Ab Qn (S) [facility] Comment on above: Test not performed Serum anion gap measurementO rdered By: Linda Amaya on 04-04-2024 Anion gap [Moles/Vol] 7 mmol/L 5-15 [facility] Serum globulin measurementOr dered By: Linda Amaya on 04-04-2024 Globulin (S) [Mass/Vol] 3.4 g/dL 2.2-4.2 [facility] Serum immunoglobulin kappa l ight chains/immunoglobulin lambda light chains mass ratioOrdered By: Linda Amaya on 04-04-2024 Immunoglobulin light chains.kappa/Immunogl obulin light chains.lambda (S) [Mass ratio] 1.28 0.26-1.65 [facility] Comment on above: Performed at: [facility] [place] [id number] Director: Dannie Meza PhD, Phone: [phone] Serum or plasma alanine carballo otransferase (ALT) measurementOrdered By: Linda Amaya on 04-04-2024 ALT [Catalytic activity/Vol] 19 U/L 13-56 [facility] Serum or plasma albumin anjel urement (mass/volume)Ordered By: Linda Amaya on 04-04-2024 Albumin [Mass/Vol] 3.9 g/dL 3.2-5.0 [facility] Serum or plasma alkaline coretta sphatase measurementOrdered By: Linda Amaya on 04-04-2024 ALP [Catalytic activity/Vol] 61 U/L 45-117 [facility] Serum or plasma calcium anjel urement (mass/volume)Ordered By: Linda Amaay on 04-04-2024 Calcium [Mass/Vol] 9.2 mg/dL 8.5-10.1 [facility] Serum or plasma creatinine m easurement (mass/volume)Ordered By: Linda Amaya on 04-04-2024 Creatinine [Mass/Vol] 0.61 mg/dL 0.55-1.02 [facility] Comment on above: The validity of the calculated GFR & GFRAA in patients over 70 years has not been determined. Clinical correlation is essential. Serum or plasma immunoglobul in kappa light chains measurement (mass/volume)Ordered By: Linda Amaya on 04-04-2024 Immunoglobulin light chains.kappa [Mass/Vol] 14.7 mg/L 3.3-19.4 [facility] Serum or plasma thyroid stim ulating hormone (TSH) measurement (units/volume)Ordered By: Linda Amaya on 04-04-2024 TSH Qn 0.735 uIU/mL 0.358-3.740 [facility] Serum or plasma urea nitroge n measurement (mass/volume)Ordered By: Linda Amaya on 04-04-2024 Urea nitrogen [Mass/Vol] 8 mg/dL 7-18 [facility] Howell antibody assayOrdered By: Linda Amaya on 04-04-2024 SM Antibody TNP [facility] Comment on above: Test not performed Sodium levelOrdered By: Mariel Amaya on 04-04-2024 Sodium [Moles/Vol] 134 mmol/L Low 136-145 [facility] TSH QnOrdered By: Linda ndiaye on 04-04-2024 Thyroid Stimulating Hormone (TSH) 0.735 uIU/mL 0.358-3.740 [facility] Thyroid Stim Hormone (TSH)on 04-04-2024 TSH 0.735 uIU/mL Normal 0.358-3.740 [facility] Comment on above: Performed By: #### L 3130.0010, L501.5200, L500.4050, L100.0100, L101.9900, L501.9520, L501.6710, L3100.5450 ####[facility] [address] [place], [address] Total proteinOrdered By: Deidra Amaya on 04-04-2024 Protein [Mass/Vol] 7.3 g/dL 6.4-8.2 [facility] White blood cell (WBC) count Ordered By: Linda Amaya on 04-04-2024 WBC (Bld) [#/Vol] 7.3 10*3/uL 4.4-11.0 [facility] Spine Cervical (Routine)on 0 03-30-2024 Spine Cervical (Routine) Normal [facility] .GFRon 03-25-2024 GFR Non- >60 [facility] Comment on above: Result Comment: [...] #### V IDH, GFR, B12, BMP #### [address] [address] GFR >60 [facility] Comment on above: Result Comment: [...] #### V IDH, GFR, B12, BMP #### [address] [address] B12on 03-25-2024 Cobalamin (Vitamin B12) [Mass/Vol] 348 pg/mL Normal 211-911 [facility] Comment on above: Performed By: #### V IDH, GFR, B12, BMP #### [address] [address] [facility] 03-25-2024 BUN/Creatinine Ratio 23.1 ratio High 10.0-22.0 [facility] Comment on above: Performed By: #### V IDH, GFR, B12, BMP #### [address] [address] Calcium [Mass/Vol] 9.9 mg/dL Normal 8.7-10.4 [facility] Comment on above: Performed By: #### V IDH, GFR, B12, BMP #### [place] [id number] Chloride [Moles/Vol] 98 mmol/L Normal 98-110 [facility] Comment on above: Performed By: #### V IDH, GFR, B12, BMP #### [address] [address] CO2 [Moles/Vol] 28 mmol/L Normal 22-32 [facility] Comment on above: Performed By: #### V IDH, GFR, B12, BMP #### [address] [address] Creatinine [Mass/Vol] 0.52 mg/dL Normal 0.50-1.20 [facility] Comment on above: Result Comment: Test ing performed on Vidible analyzer using enzymatic creatinine methodology. Performed By: #### V IDH, GFR, B12, BMP #### [address] [address] Electrolyte Balance 6.0 mEq/L Normal 4.0-15.0 [facility] Comment on above: Performed By: #### V IDH, GFR, B12, BMP #### [address] [address] Glucose [Mass/Vol] 99 mg/dL Normal 82-115 [facility] Comment on above: Performed By: #### V IDH, GFR, B12, BMP #### [address] [address] Potassium [Moles/Vol] 4.6 mmol/L Normal 3.5-5.0 [facility] Comment on above: Performed By: #### V IDH, GFR, B12, BMP #### [address] [address] Sodium [Moles/Vol] 132 mmol/L Low 136-145 [facility] Comment on above: Performed By: #### V IDH, GFR, B12, BMP #### [place] [address] Urea nitrogen [Mass/Vol] 12.0 mg/dL Normal 8.0-22.0 [facility] Comment on above: Performed By: #### V IDH, GFR, B12, BMP #### [address] [address] [facility] 03-25-2024 Vit. D 25-Hydroxy 32.0 ng/mL Normal [facility] Comment on above: Result Comment: Inte rpretive Values Based on Total 25(OH)D: Severe Deficiency <20 ng/mL Mild to Moderate Deficiency 20-30 ng/mL Optimum Levels 30-100 ng/mL Toxicity Possible >100 ng/mL Performed By: #### V IDH, GFR, B12, BMP #### [place] [id number] Cerv Spine 4 or 5 Viewson Cerv Spine 4 or 5 Views Normal [facility] Orthopedic Visit Reporton Orthopedic Visit Report Normal [facility] Emergency Department Summary on 03-13-2024 Emergency Department Summary Normal [facility] CTA Neck W/WO Contraston CTA Neck W/WO Contrast Normal [facility] Urgent Care Visit Reporton 0 03-06-2024 Urgent Care Visit Report Normal [facility] CNPYuli 03-04-2024 MISSY Telephone (KHANH) -------- PORFIRIO,KELLI J ([id number]) 1950 F Date Time Provider Department 03/04/24 DEYANIRA MENDEZ During your visit today, we recorded the following information about you: Yelitza Bartlett LPN 03/04/2024 3:05 PM Signed Patient contacted office c/o excessive sweating to bilateral axilla and under both breasts. Patient states this has been ongoing for about 1 year. She saw her radiation safety officer and was given prescription deodorant which has helped somewhat but she is still having issues and states still has sweating/dampness under both arms and breasts. Asking if radiation has caused this. Patient completed radiation in 2017. Requested appointment with Deyanira for this issue. I advised patient to contact her radiation safety officer again. Informed patient I would ask Deyanira and renetta patterson about this as well. ALDA Guthrie Darby, APRN.AUTOMOTIVE SERVICE ASSISTANT 03/07/2024 8:23 AM Signed Please advise pt. to follow up with PCP/derm. Thank you. Deyanira Mendez APRN.AUTOMOTIVE SERVICE ASSISTANT Charlotte Murillo LPN 03/07/2024 8:48 AM Signed Pt advised [...] 5 mg/100 mL pgbk PREMIX piggyback Zoledronic Qqbw-Uwgpsweg-Azant Active 1 EACH .Route ONCE 100 February 07, 2021 11:08am onceinfuse over 20 minutes - acetaminophen (TYLENOL EX STR RAPID RELEASE ORAL) Take 1,000 mg by mouth twice daily as needed. 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 Electronically signed on: 02/05/2024 Senior Investment Manager: BRANDEE Transcribe Date/Time: Feb 04 2024 10:46A Dictated by: SHAHLA RIVERS MD This examination was interpreted and the report reviewed and electronically signed by: SHAHLA RIVERS MD on Feb 05 2024 10:17AM EST [id number] Normal [facility] Thyroidon 01-14-2024 Thyroid Normal [facility] 01-13-2024 CNPN Telephone (OBLingoLiveWM) -------- KELLI MONROY ([id number]) 1950 F Date Time Provider Department 01/13/24 PRISCA RIVERA OBGYWM During your visit today, we [...] 12:07 PM Signed Patient notified. Transferred to [facility] to schedule mammogram. Erin Olguin RN Allergies As of Date: 01/13/2024 Noted Allergy Reaction DULOXETINE 09/14/2019 2 - Rash Date Reviewed: 09/08/2023 Reviewed by: Laura Powell MA - Fully Assessed Reason for Visit: Orders [681] Primary Visit Diagnosis:Encounter for screening mammogram for malignant neoplasm of breast [Z12.31] Order(s):[facility] SCREENING W MIC [[id number]] Order #: [id number] FUTURE Prescriptions as of 01/13/2024 - omeprazole magnesium (PRILOSEC ORAL) Take by mouth. - COLLAGEN MISC 2 Tablespoonsful once daily. Unknown dosage - calcium/chondr/collag/gl ycosam (BEYOND BONE BROTH ORAL) Take by mouth. Bone Broth Collagen 1 Scoop per day (2 table spoons) - zoledronic acid (RECLAST) 5 mg/100 mL pgbk PREMIX piggyback Zoledronic Ffvq-Ddjmxaif-Rrmdf Active 1 EACH .Route ONCE 100 February 07, 2021 11:08am onceinfuse over 20 minutes - acetaminophen (TYLENOL EX STR RAPID RELEASE ORAL) Take 1,000 mg by mouth twice daily as needed. 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 [...] Status:Closed by ERIN OLGUIN on 01/13/24 Normal [facility] .Auto Diffon 12-08-2023 Basophil, Absolute 0.1 10 3/mcL Normal 0.0-0.3 [facility] Comment on above: Performed By: #### V IDH, GFR, B12, BMP #### [address] [address] Basophils/100 WBC (Bld) 0.9 % Normal 0.0-2.5 [facility] Comment on above: Performed By: #### V IDH, GFR, B12, BMP #### [address] [address] Eosinophil, Absolute 0.0 10 3/mcL Normal 0.0-0.7 [facility] Comment on above: Performed By: #### V IDH, GFR, B12, BMP #### [address] [address] Eosinophils/100 WBC (Bld) 0.7 % Normal 0.0-6.0 [facility] Comment on above: Performed By: #### V IDH, GFR, B12, BMP #### [address] [address] Lymphocyte, Absolute 1.0 10 3/mcL Normal 0.9-4.3 [facility] Comment on above: Performed By: #### V IDH, GFR, B12, BMP #### [address] [address] Lymphocytes/100 WBC (Bld) 15.4 % Low 20.0-40.0 [facility] Comment on above: Performed By: #### V IDH, GFR, B12, BMP #### [address] [address] Monocyte, Absolute 0.8 10 3/mcL Normal 0.1-1.4 [facility] Comment on above: Performed By: #### V IDH, GFR, B12, BMP #### [address] [address] Monocytes/100 WBC (Bld) 12.9 % Normal 2.0-13.0 [facility] Comment on above: Performed By: #### V IDH, GFR, B12, BMP #### [address] [address] Neutrophils/100 WBC (Bld) 70.1 % Normal 50.0-75.0 [facility] Comment on above: Performed By: #### V IDH, GFR, B12, BMP #### [address] [address] .GFRon 12-08-2023 GFR Non- >60 Normal [facility] Comment on above: Result Comment: [...] #### V IDH, GFR, B12, BMP #### [address] [address] GFR >60 Normal [facility] Comment on above: Result Comment: [...] #### V IDH, GFR, B12, BMP #### [address] [address] .NEUABSon 12-08-2023 Neutrophil, Absolute 4.6 10 3/mcL Normal 2.3-8.1 [facility] Comment on above: Performed By: #### V IDH, GFR, B12, BMP #### [place] [address] B12on 12-08-2023 Cobalamin (Vitamin B12) [Mass/Vol] 352 pg/mL Normal 211-911 [facility] Comment on above: Performed By: #### V IDH, GFR, B12, BMP #### [place] [address] CBCon 12-08-2023 Erythrocyte distribution width (RBC) [Ratio] 13.4 % Normal 11.5-15.5 [facility] Comment on above: Performed By: #### V IDH, GFR, B12, BMP #### [place] [address] Hematocrit (Bld) [Volume fraction] 36.7 % Normal 34.0-46.0 [facility] Comment on above: Performed By: #### V IDH, GFR, B12, BMP #### [place] [address] Hgb 12.4 G/dL Normal 12.0-16.0 [facility] Comment on above: Performed By: #### V IDH, GFR, B12, BMP #### [place] [address] MCH (RBC) [Entitic mass] 32.1 pg Normal 27.0-33.0 [facility] Comment on above: Performed By: #### V IDH, GFR, B12, BMP #### [address] [address] MCHC 33.7 G/dL Normal 32.0-36.0 [facility] Comment on above: Performed By: #### V IDH, GFR, B12, BMP #### [address] [address] MCV (RBC) [Entitic vol] 95.1 fL Normal 80.0-99.0 [facility] Comment on above: Performed By: #### V IDH, GFR, B12, BMP #### [address] [address] Platelet 266 10 3/mcL Normal 150-450 [facility] Comment on above: Performed By: #### V IDH, GFR, B12, BMP #### [place] [address] Platelet mean volume (Bld) [Entitic vol] 7.8 fL Normal 6.6-10.5 [facility] Comment on above: Performed By: #### V IDH, GFR, B12, BMP #### [address] [address] RBC 3.86 10 6/mcL Low 4.10-5.30 [facility] Comment on above: Performed By: #### V IDH, GFR, B12, BMP #### [address] [address] WBC 6.5 10 3/mcL Normal 4.5-10.8 [facility] Comment on above: Performed By: #### V IDH, GFR, B12, BMP #### [place] [address] CMPon 12-08-2023 Albumin Level 3.6 G/dL Normal 3.2-4.8 [facility] Comment on above: Performed By: #### V IDH, GFR, B12, BMP #### [place] [id number] Albumin/Globulin [Mass ratio] 1.3 {ratio} Normal 0.9-1.6 [facility] Comment on above: Performed By: #### V IDH, GFR, B12, BMP #### [address] [address] ALP [Catalytic activity/Vol] 57 U/L Normal 38-126 [facility] Comment on above: Performed By: #### V IDH, GFR, B12, BMP #### [address] [address] ALT [Catalytic activity/Vol] 12 U/L Normal 10-49 [facility] Comment on above: Performed By: #### V IDH, GFR, B12, BMP #### [address] [address] AST [Catalytic activity/Vol] 19 U/L Normal 8-34 [facility] Comment on above: Performed By: #### V IDH, GFR, B12, BMP #### [place] [id number] Bili Total 0.60 mg/dL Normal 0.20-1.20 [facility] Comment on above: Result Comment: Use of this assay is not recommended for patients undergoing treatment with eltrombopag due to the potential for falsely elevated results. Performed By: #### V IDH, GFR, B12, BMP #### [place] [id number] BUN/Creatinine Ratio 15.3 ratio Normal 10.0-22.0 [facility] Comment on above: Performed By: #### V IDH, GFR, B12, BMP #### [address] [address] Calcium [Mass/Vol] 9.2 mg/dL Normal 8.7-10.4 [facility] Comment on above: Performed By: #### V IDH, GFR, B12, BMP #### [address] [address] Chloride [Moles/Vol] 104 mmol/L Normal 98-110 [facility] Comment on above: Performed By: #### V IDH, GFR, B12, BMP #### [address] [address] CO2 [Moles/Vol] 27 mmol/L Normal 22-32 [facility] Comment on above: Performed By: #### V IDH, GFR, B12, BMP #### [address] [address] Creatinine [Mass/Vol] 0.59 mg/dL Normal 0.50-1.20 [facility] Comment on above: Result Comment: Test ing performed on Vidible analyzer using enzymatic creatinine methodology. Performed By: #### V IDH, GFR, B12, BMP #### [address] [address] Electrolyte Balance 4.0 mEq/L Normal 4.0-15.0 [facility] Comment on above: Performed By: #### V IDH, GFR, B12, BMP #### [place] [id number] Globulin 2.8 G/dL Normal 1.5-3.8 [facility] Comment on above: Performed By: #### V IDH, GFR, B12, BMP #### [address] [address] Glucose [Mass/Vol] 90 mg/dL Normal 82-115 [facility] Comment on above: Performed By: #### V IDH, GFR, B12, BMP #### [place] [id number] Potassium [Moles/Vol] 4.5 mmol/L Normal 3.5-5.0 [facility] Comment on above: Performed By: #### V IDH, GFR, B12, BMP #### [place] [id number] Sodium [Moles/Vol] 135 mmol/L Low 136-145 [facility] Comment on above: Performed By: #### V IDH, GFR, B12, BMP #### [place] [id number] Total Protein 6.4 G/dL Normal 5.7-8.2 [facility] Comment on above: Result Comment: No te - New Reference Range in effect 19 Performed By: #### V IDH, GFR, B12, BMP #### [address] [address] Urea nitrogen [Mass/Vol] 9.0 mg/dL Normal 8.0-22.0 [facility] Comment on above: Performed By: #### V IDH, GFR, B12, BMP #### [address] [address] LIPIDon 12-08-2023 Cholesterol [Mass/Vol] 216 mg/dL High 50-199 [facility] Comment on above: Result Comment: Chol esterol Reference Interval: Less than 200 Desirable 200-239 Borderline high risk 240 and above High risk Performed By: #### V IDH, GFR, B12, BMP #### [address] [address] Cholesterol in HDL [Mass/Vol] 85 mg/dL High 40-59 [facility] Comment on above: Performed By: #### V IDH, GFR, B12, BMP #### [address] [address] Cholesterol in LDL [Mass/Vol] 116 mg/dL Normal 0-129 [facility] Comment on above: Performed By: #### V IDH, GFR, B12, BMP #### [address] [address] Triglyceride [Mass/Vol] 76 mg/dL Normal 3-149 [facility] Comment on above: Performed By: #### V IDH, GFR, B12, BMP #### [address] [address] TSHon 12-08-2023 TSH 0.849 mIU/mL Normal 0.550-4.780 [facility] Comment on above: Result Comment: No te - New Reference Range in effect 19 Performed By: #### V IDH, GFR, B12, BMP #### [address] [address] VIDHon 12-08-2023 Vit. D 25-Hydroxy 28.3 ng/mL Normal [facility] Comment on above: Result Comment: Inte rpretive Values Based on Total 25(OH)D: Severe Deficiency <20 ng/mL Mild to Moderate Deficiency 20-30 ng/mL Optimum Levels 30-100 ng/mL Toxicity Possible >100 ng/mL Performed By: #### V IDH, GFR, B12, BMP #### [place] [address] UA DIP, URINE (POC)on 2023 BILIRUBIN UA (POCT) Negative Negative [facility] CLARITY UA (POCT) Clear [facility] COLOR UA (POCT) Yellow [facility] GLUCOSE UA (POCT) Negative Negative mg/dL [facility] Hemoglobin Ql (U) Negative Negative [facility] Interpretation and review of laboratory results Abnormal [facility] KETONE UA (POCT) Negative Negative mg/dL [facility] LEUKOCYTES UA (POCT) Trace Abnormal Negative [facility] NITRITE UA (POCT) Negative Negative [facility] PH UA (POCT) 6.0 4.5 - 8.0 [facility] Protein Ql (U) Negative Negative mg/dL [facility] SPECIFIC GRAVITY UA (POCT) <=1.005 Abnormal 1.005 - 1.030 [facility] UROBILINOGEN UA (POCT) 0.2 Normal E.U./dL [facility] Location:[facility], [address], [place], [place], [id number] [place] [address] POINT OF CARE [facility] BACTERIAL VAGINOSIS NAATon 0 06-11-2023 Lactobacillus crispatus+gasseri+kendra senii + Gardnerella vaginalis + Atopobium vaginae rRNA JONATHAN+probe Ql (Vag fld) Negative Negative for bacterial vaginosis [facility] ANAID/TRICHOMONAS NAATon 0 06-11-2023 C. glabrata RNA JONATHAN+probe Ql (Vag fld) Negative Negative for Anaid glabrata [facility] Anaid sp DNA JONATHAN+probe Ql (Vag fld) Negative Negative for Anaid species [facility] T. vaginalis DNA JONATHAN+probe Ql (Unsp spec) Negative Negative for Trichomonas vaginalis by amplification [facility] T4 FREE/FREE THYROXINEon Free T4 [Mass/Vol] 1.3 ng/dL 0.9 - 1.7 ng/dL [facility] THYROID STIMULATING HORMONEo n 06-11-2023 TSH Qn 1.850 m[IU]/L 0.270 - 4.200 mIU/L [facility] UA DIP, URINE (POC)on 2023 BILIRUBIN UA (POCT) Negative Negative [facility] CLARITY UA (POCT) Clear [facility] COLOR UA (POCT) Light yellow [facility] GLUCOSE UA (POCT) Negative Negative mg/dL [facility] Hemoglobin Ql (U) Negative Negative [facility] KETONE UA (POCT) Negative Negative mg/dL [facility] LEUKOCYTES UA (POCT) Trace Abnormal Negative [facility] NITRITE UA (POCT) Negative [facility] PH UA (POCT) 6.0 4.5 - 8.0 [facility] Protein Ql (U) Negative Negative mg/dL [facility] SPECIFIC GRAVITY UA (POCT) 1.010 1.005 - 1.030 [facility] UROBILINOGEN UA (POCT) 0.2 E.U./dL Normal E.U./dL [facility] No Panel Informationon 03-09 Influenza Types A,B Rapid (Clinic) Negative [facility] POC SARS CoV-2 Antigen Negative [facility] Laboratory - Chemistry and C hemistry - challengeOrdered By: Cade Monroy on 02-24-2023 Free T4 [Mass/Vol] 1.00 ng/dL 0.76-1.46 [facility] No Panel InformationOrdered By: Cade Monroy on 02-24-2023 Follicle Stimulating Hormone 76.5 mIU/mL [facility] Comment on above: NORMAL REFERENCE RAN [facility] FEMALE FOLLICULAR 2.3 - 12.6 mIU/mL MID-CYCLE [...] mIU/mL Parathyroid Hormone (Intact) 60.9 pg/mL 18.4-80.1 [facility] Thyroid Stimulating Hormone (TSH) 0.91 uIU/mL 0.358-3.74 [facility] Serum or plasma cortisol luis armando surement (mass/volume)Ordered By: Cade Monroy on 02-24-2023 Cortisol [Mass/Vol] 9.50 ug/dL 3.44-22.45 [facility] Comment on above: Adult (AM) 5.27 - 22 .45 ug/dL Adult (PM) 3.44 - 16.76 ug/dLPlease note revised CORTISOL reference range effective 2019. PANCEFon 07-21-2022 Panc Elastase, Fecal >800 Normal >=100 [facility] ([place]) Comment on above: Result Comment: REFE RENCE INTERVAL: Pancreatic Elastase Fecal by Immunoassay Less than 100 ug/g............Severe insufficiency 100 - 199 ug/g................Moderate insufficiency 200 ug/g or greater...........Normal INTERPRETIVE INFORMATION: Pancreatic Elastase Fecal by Immunoassay Reference intervals do not apply for infants less than one month old. Performed by [facility], [address] [place] [id number] [email or web address] Catarino Palomino MD, PHD, Lab. Director Performed By: #### P ANCEF #### [place] [address] FATFon 07-19-2022 Fecal Fat Qnt See Comments Normal [facility] ([place]) Comment on above: Result Comment: Comp lete reference lab report scanned to EMR. Performed By: #### F ATF #### [address] [address] Urinalysis complete panel (U )on 07-01-2022 Bilirubin Ql (U) Negative Negative [facility] Clarity (Unsp spec) Clear [facility] Color (U) Light Yellow Yellow [facility] Epithelial cells LM.HPF (Urine sed) [#/Area] Few [facility] Glucose Test strip (U) [Mass/Vol] Negative Trace, Negative [facility] Hemoglobin Ql (U) Negative Negative, Trace [facility] Ketones Ql (U) Negative Trace, Negative [facility] Leukocyte esterase Test strip Ql (U) 75 Gissel/uL Abnormal Negative, 25 Gissel/uL [facility] Nitrite Ql (U) Negative Negative [facility] pH (U) 6.5 [pH] 5.0 - 8.0 [facility] Protein (U) [Mass/Vol] Negative Trace, Negative [facility] RBC LM.HPF (Urine sed) [#/Area] 0-3 /HPF 0-3 /HPF [facility] Specific gravity (U) [Rel density] 1.010 1.005 - 1.030 [facility] Urobilinogen Ql (U) Negative Negative [facility] WBC LM.HPF (Urine sed) [#/Area] 0-5 /HPF 0-5 /HPF [facility] UA DIP, URINE (POC)on 2022 BILIRUBIN UA (POCT) Negative Negative [facility] CLARITY UA (POCT) Clear [facility] COLOR UA (POCT) Yellow [facility] GLUCOSE UA (POCT) Negative Negative mg/dL [facility] HEMOGLOBIN/BLOOD UA (POCT) Trace-intact Abnormal Negative [facility] KETONE UA (POCT) Negative Negative mg/dL [facility] LEUKOCYTES UA (POCT) Small Abnormal Negative [facility] NITRITE UA (POCT) Negative Negative [facility] PH UA (POCT) 6.0 4.5 - 8.0 [facility] Protein Ql (U) Negative Negative mg/dL [facility] SPECIFIC GRAVITY UA (POCT) 1.010 1.005 - 1.030 [facility] UROBILINOGEN UA (POCT) 0.2 E.U./dL Normal E.U./dL [facility] NM BONE WHOLE BODYon 023 [facility] ACTIVATED PTTon 04-01-2022 aPTT Coag (PPP) [Time] 26.9 s 23.0 - 32.4 sec [facility] CBC W Auto Differential pane l (Bld)on 04-01-2022 Basophils (Bld) [#/Vol] 0.03 10*3/uL <0.11 k/uL [facility] Basophils/100 WBC (Bld) 0.4 % [facility] Differential cell count method Nom (Bld) Auto [facility] Eosinophils (Bld) [#/Vol] 0.05 10*3/uL <0.46 k/uL [facility] Eosinophils/100 WBC (Bld) 0.7 % [facility] Erythrocyte distribution width (RBC) [Ratio] 12.3 % 11.5 - 15.0 % [facility] Hematocrit (Bld) [Volume fraction] 36.5 % 36.0 - 46.0 % [facility] Hemoglobin (Bld) [Mass/Vol] 12.4 g/dL 11.5 - 15.5 g/dL [facility] Immature granulocytes (Bld) [#/Vol] <0.10 k/uL [facility] Immature granulocytes/100 WBC (Bld) 0.3 % [facility] Lymphocytes (Bld) [#/Vol] 1.26 10*3/uL 1.00 - 4.00 k/uL [facility] Lymphocytes/100 WBC (Bld) 18.2 % [facility] MCH (RBC) [Entitic mass] 31.6 pg 26.0 - 34.0 pg [facility] MCHC (RBC) [Mass/Vol] 34.0 g/dL 30.5 - 36.0 g/dL [facility] MCV (RBC) [Entitic vol] 93.1 fL 80.0 - 100.0 fL [facility] Monocytes (Bld) [#/Vol] 0.83 10*3/uL <0.87 k/uL [facility] Monocytes/100 WBC (Bld) 12.0 % [facility] Neutrophils (Bld) [#/Vol] 4.73 10*3/uL 1.45 - 7.50 k/uL [facility] Neutrophils/100 WBC (Bld) 68.4 % [facility] Nucleated RBC (Bld) [#/Vol] <0.01 k/uL [facility] Nucleated RBC/100 WBC (Bld) [Ratio] 0.0 /100 WBC [facility] Platelet mean volume (Bld) [Entitic vol] 8.6 fL Low 9.0 - 12.7 fL [facility] Platelets (Bld) [#/Vol] 293 10*3/uL 150 - 400 k/uL [facility] RBC (Bld) [#/Vol] 3.92 10*6/uL 3.90 - 5.2 0 m/uL [facility] WBC (Bld) [#/Vol] 6.92 10*3/uL 3.70 - 11. 00 k/uL [facility] PT panel Coag (PPP)on 2022 INR Coag (PPP) [Relative time] 0.9 {INR} 0.9 - 1.3 [facility] PT Coag (PPP) [Time] 9.1 s <13.1 sec [facility] LABORATORYOrdered By: Diane Prince on 03-03-2022 Hemoglobin.gastrointe stinal Ql (Stl) Negative (03/03/22 8:50 AM) Invalid Interpretation Code Negative AO Rapid Testing SS CT ABD/PEL W IVCONon [address] [facility] [address] CHEST W IVCONon 3 [facility] Basophil percentageon 2021 Bilirubin [Mass/Vol] 0.50 mg/dL 0.20-1.00 [facility] Work Phone: Comment on above: For patients on eltr ombopag therapy, use of Dimension [place] TBIL is not recommended. Chloride [Moles/Vol] 100 mmol/L 98-107 [facility] Work Phone: Glucose [Mass/Vol] 95 mg/dL 74-106 [facility] Work Phone: Potassium [Moles/Vol] 4.4 mmol/L 3.5-5.1 [facility] Work Phone: Protein [Mass/Vol] 7.6 g/dL 6.4-8.2 [facility] Work Phone: Sodium [Moles/Vol] 135 mmol/L 136-145 [facility] Work Phone: Laboratory - Chemistry and C hemistry - challengeon 02-06-2022 ALP [Catalytic activity/Vol] 74 U/L 45-117 [facility] Work Phone: ALT [Catalytic activity/Vol] 32 U/L 13-56 [facility] Work Phone: [phone] CO2 [Moles/Vol] 31.0 mmol/L 21.0-32.0 [facility] Work Phone: Globulin (S) [Mass/Vol] 3.6 g/dL 2.2-4.2 [facility] Work Phone: Urea nitrogen/Creatinine [Mass ratio] 15.3 mg/mg 10-20 [facility] Work Phone: No Panel Informationon 02-06 Estimated GFR (MDRD) Amer 128 mL/min >60 [facility] Work Phone: Comment on above: GFR Calc Estimated GFR (MDRD) Non-Af Amer 106 mL/min >60 [facility] Work Phone: Comment on above: Non- GFR Calc Parathyroid Hormone (Intact) 68.7 pg/mL 18.4-80.1 [facility] Work Phone: Vitamin D 25-Hydroxy 36.4 ng/mL [facility] Work Phone: Comment on above: Vitamin D 25(OH) Sta tus Range Deficiency <20 ng/mL (50nmol/L) Insufficiency 20 - 30 ng/mL (50 - 75 nmol/L) Sufficiency 30 - 100 ng/mL (75 - 250 nmol/L) Toxicity >100 ng/mL (>250 nmol/L) Serum or plasma albumin anjel urement (mass/volume)on 02-06-2022 Albumin [Mass/Vol] 4.0 g/dL 3.2-5.0 [facility] Work Phone: Serum or plasma albumin/glob ulin mass ratioon 02-06-2022 Albumin/Globulin [Mass ratio] 1.1 {ratio} 0.9-2.4 [facility] Work Phone: Serum or plasma calcium anjel urement (mass/volume)on 02-06-2022 Calcium [Mass/Vol] 9.3 mg/dL 8.5-10.1 [facility] Work Phone: Serum or plasma creatinine m easurement (mass/volume)on 02-06-2022 Creatinine [Mass/Vol] 0.59 mg/dL 0.55-1.02 [facility] Work Phone: Comment on above: The validity of the calculated GFR & GFRAA in patients over 70 years has not been determined. Clinical correlation is essential. Serum or plasma urea nitroge n measurement (mass/volume)on 02-06-2022 Urea nitrogen [Mass/Vol] 9 mg/dL 7-18 [facility] Work Phone: Thin prep Papanicolaou smear with manual screeningon 02-06-2022 Thin prep Papanicolaou smear with manual screening 26 U/L 15- [facility] Work Phone: Thin prep Papanicolaou smear with manual screening 4 - [facility] Work Phone: DESIREE SCREENING W TOMOon 01-31 [facility] US THYROID/PARATHYROIDon [facility] UA DIP, URINE (POC)on 2021 BILIRUBIN UA (POCT) Negative Negative [facility] CLARITY UA (POCT) Clear [facility] COLOR UA (POCT) Yellow [facility] GLUCOSE UA (POCT) Negative Negative mg/dL [facility] HEMOGLOBIN/BLOOD UA (POCT) Moderate Abnormal Negative [facility] KETONE UA (POCT) Trace Negative mg/dL [facility] LEUKOCYTES UA (POCT) Moderate Abnormal Negative [facility] NITRITE UA (POCT) Negative Negative [facility] PH UA (POCT) 5.5 4.5 - 8.0 [facility] Protein Ql (U) 100 mg/dL Abnormal Negative mg/dL [facility] SPECIFIC GRAVITY UA (POCT) 1.025 1.005 - 1.030 [facility] UROBILINOGEN UA (POCT) 0.2 E.U./dL Normal E.U./dL [facility] CT CHEST W IVCONon 2 [facility] Absolute lymphocyte counton 06-10-2021 Lymphocytes Auto (Unsp spec) [#/Vol] 1.34 10*3/uL 0.83-4.51 [facility] Work Phone: Basophil percentageon 2021 Basophil percentage 0 SEEN /hpf [facility] Work Phone: Basophils/100 WBC (Bld) 0.5 % 0-1 [facility] Work Phone: Bilirubin [Mass/Vol] 0.60 mg/dL 0.20-1.00 [facility] Work Phone: Comment on above: For patients on eltr ombopag therapy, use of Dimension [place] TBIL is not recommended. Chloride [Moles/Vol] 101 mmol/L 98-107 [facility] Work Phone: Eosinophils/100 WBC (Bld) 0.6 % 0-5 [facility] Work Phone: Glucose [Mass/Vol] 99 mg/dL 74-106 [facility] Work Phone: Neutrophils (Bld) [#/Vol] 5.8 10*3/uL 2.0-7.7 [facility] Work Phone: Neutrophils/100 WBC (Bld) 72.3 % 47-70 [facility] Work Phone: Potassium [Moles/Vol] 3.8 mmol/L 3.5-5.1 [facility] Work Phone: Protein [Mass/Vol] 6.9 g/dL 6.4-8.2 [facility] Work Phone: Sodium [Moles/Vol] 134 mmol/L 136-145 [facility] Work Phone: WBC (Bld) [#/Vol] 8.1 10*3/uL 4.4-11.0 [facility] Work Phone: Bilirubin Test strip Ql (U)o n 06-10-2021 Bilirubin Ql (U) Negative Negative [facility] Work Phone: Blood erythrocytes count (nu mber/volume)on 06-10-2021 RBC (Bld) [#/Vol] 3.86 10*6/uL 4.2-5.4 [facility] Work Phone: Blood hemoglobin measurement (mass/volume)on 06-10-2021 Hemoglobin (Bld) [Mass/Vol] 12.4 g/dL 12.0-15.0 [facility] Work Phone: Blood lymphocytes/100 leukoc yteson 06-10-2021 Lymphocytes/100 WBC (Bld) 16.6 % 19-41 [facility] Work Phone: Blood monocytes/100 leukocyt eson 06-10-2021 Monocytes/100 WBC (Bld) 9.4 % 0-10 [facility] Work Phone: [phone] Blood platelet mean volumeon 06-10-2021 Platelet mean volume (Bld) [Entitic vol] 8.4 fL 6.2-12.0 [facility] Work Phone: Determination of erythrocyte mean corpuscular volume (MCV)on 06-10-2021 MCV (RBC) [Entitic vol] 93.0 fL 81-99 [facility] Work Phone: Hematocrit Auto (Bld) [Volum e fraction]on 06-10-2021 Hematocrit (Bld) [Volume fraction] 35.9 % 37-47 [facility] Work Phone: Ketones Test strip Ql (U)on 06-10-2021 Ketones Ql (U) Negative Negative [facility] Work Phone: Laboratory - Chemistry and C hemistry - challengeon 06-10-2021 ALP [Catalytic activity/Vol] 48 U/L 45-117 [facility] Work Phone: ALT [Catalytic activity/Vol] 17 U/L 13-56 [facility] Work Phone: CO2 [Moles/Vol] 28.0 mmol/L 21.0-32.0 [facility] Work Phone: [phone] Globulin (S) [Mass/Vol] 3.2 g/dL 2.2-4.2 [facility] Work Phone: Urea nitrogen/Creatinine [Mass ratio] 12.3 mg/mg 10-20 [facility] Work Phone: Laboratory - Hematology and Cell countson 06-10-2021 Erythrocyte distribution width (RBC) [Entitic vol] 41.5 fL 35.1-43.9 [facility] Work Phone: Erythrocyte distribution width (RBC) [Ratio] 12.1 % 11.6-14.6 [facility] Work Phone: Immature granulocytes/100 WBC (Bld) 0.600 % 0.0-0.9 [facility] Work Phone: Comment on above: IG% - Immature Granu locytes (promyelocytes, myelocytes and metamyelocytes) > 1% indicates that a LEFT SHIFT is Present. MCH (RBC) [Entitic mass] 32.1 pg 27.0-32.0 [facility] Work Phone: Nucleated RBC/100 WBC (Bld) [Ratio] 0 % 0-5 [facility] Work Phone: MCHC Auto (RBC) [Mass/Vol]on 06-10-2021 MCHC (RBC) [Mass/Vol] 34.5 g/dL 32-36 [facility] Work Phone: Mucus LM Ql (Urine sed)on Mucus Ql (Urine sed) 0 SEEN /hpf [facility] Work Phone: Nitrite Test strip Ql (U)on 06-10-2021 Nitrite Ql (U) Negative Negative [facility] Work Phone: No Panel Informationon 06-10 Estimated Creatinine Clearance Calc 43.27 ml/min [facility] Work Phone: Estimated GFR (MDRD) Amer 134 mL/min >60 [facility] Work Phone: Comment on above: GFR Calc Estimated GFR (MDRD) Non-Af Amer 111 mL/min >60 [facility] Work Phone: Comment on above: Non- GFR Calc Troponin I High Sensitivity 5 pg/mL 3.0-54.0 [facility] Work Phone: Comment on above: Please Note: New Stephanie t Units and Gender Specific Reference Ranges. For more information see Policy Stat Procedure [place] High Sensitivity Troponin (TNIH) and attachments. Platelets bldon 06-10-2021 Platelets (Bld) [#/Vol] 297 10*3/uL 150-450 [facility] Work Phone: Protein Test strip Ql (U)on 06-10-2021 Protein Ql (U) Negative Negative [facility] Work Phone: Serum or plasma albumin anjel urement (mass/volume)on 06-10-2021 Albumin [Mass/Vol] 3.7 g/dL 3.2-5.0 [facility] Work Phone: Serum or plasma albumin/glob ulin mass ratioon 06-10-2021 Albumin/Globulin [Mass ratio] 1.2 {ratio} 0.9-2.4 [facility] Work Phone: Serum or plasma calcium anjel urement (mass/volume)on 06-10-2021 Calcium [Mass/Vol] 9.0 mg/dL 8.5-10.1 [facility] Work Phone: Serum or plasma creatinine m easurement (mass/volume)on 06-10-2021 Creatinine [Mass/Vol] 0.57 mg/dL 0.55-1.02 [facility] Work Phone: Comment on above: The validity of the calculated GFR & GFRAA in patients over 70 years has not been determined. Clinical correlation is essential. Serum or plasma urea nitroge n measurement (mass/volume)on 06-10-2021 Urea nitrogen [Mass/Vol] 7 mg/dL 7- [facility] Work Phone: Squamous epithelial cells de tection in urine sediment by light microscopyon 06-10-2021 Epithelial cells.squamous LM Ql (Urine sed) 0-5 SEEN /hpf [facility] Work Phone: Thin prep Papanicolaou smear with manual screeningon 06-10-2021 Thin prep Papanicolaou smear with manual screening 12 U/L 15-37 [facility] Work Phone: Thin prep Papanicolaou smear with manual screening 5 5-15 [facility] Work Phone: Urine blood detectionon 05-24 RBC Ql (U) Negative Negative [facility] Work Phone: RBC Ql (U) 0 SEEN /hpf [facility] Work Phone: Urine clarityon 06-10-2021 Clarity (U) Clear Clear [facility] Work Phone: Urine color determinationon 06-10-2021 Color (U) Yellow Yellow [facility] Work Phone: Urine glucose detectionon Glucose Ql (U) Normal mg/dl Normal [facility] Work Phone: Urine leukocyte esterase det ection by dipstickon 06-10-2021 Leukocyte esterase Test strip Ql (U) 25 /ul Negative [facility] Work Phone: Urine pHon 06-10-2021 pH (U) 7.0 [pH] [facility] Work Phone: Urine sediment bacteria coun t by microscopy (number/high power field)on 06-10-2021 Bacteria LM.HPF (Urine sed) [#/Area] 0 /[HPF] None Seen [facility] Work Phone: Urine specific gravity measu rementon 06-10-2021 Specific gravity (U) [Rel density] 1.010 [facility] Work Phone: Urobilinogen Auto test strip Ql (U)on 06-10-2021 Urobilinogen Ql (U) Normal mg/dl Normal [facility] Work Phone: Laboratory - Chemistry and C hemistry - challengeon 05-15-2021 Cobalamin (Vitamin B12) [Mass/Vol] 1069 pg/mL 211-911 [facility] Work Phone: Magnesium [Mass/Vol] 2.7 mg/dL 1.6-2.6 [facility] Work Phone: No Panel Informationon 05-15 Vitamin D 25-Hydroxy [...] 04-01-2021 Free T4 [Mass/Vol] 1.03 ng/dL 0.76-1.46 [facility] [facility] Work Phone: No Panel Informationon 04-01 Ionized Calcium 5.0 mg/dL [facility] Work Phone: Parathyroid Hormone (Intact) 83.8 pg/mL 18.4-80.1 [facility] Work Phone: Thyroid Stimulating Hormone (TSH) 1.04 uIU/mL 0.358-3.74 [facility] Work Phone: Total Triiodothyronine 1.14 ng/mL 0.6-1.81 [facility] Work Phone: Serum or plasma calcium anjel urement (mass/volume)on 04-01-2021 Calcium [Mass/Vol] 8.8 mg/dL 8.5-10.1 [facility] Work Phone: Serum or plasma thyroperoxid ase antibody assay (units/volume)on 04-01-2021 TPO Ab Qn [IU]/mL [facility] Work Phone: Comment on above: Performed at: [address] [id number] Director: Dannie Meza PhD, Phone: [phone] BONE MARROW BIOPSY [facility] Vital Signs Date Time Vital Sign Value Performing Clinician Facility 11-21-2024 10:30-0400 Body temperature 98.7 [degF] Dr. Angel Fuller MD Work Phone: [facility] 11-21-2024 10:30-0400 Diastolic blood pressure 78 mm[Hg] Dr. Angel Fuller MD Work Phone: 1(859)113-398304 [place] [address] 11-21-2024 10:30-0400 Heart rate 78 /min Dr. Angel Fuller MD Work Phone: 8(509)812-847504 [place] [address] 11-21-2024 10:30-0400 Respiratory rate 16 /min Dr. Angel Fuller MD Work Phone: 7(842)752-833104 [place] [address] 11-21-2024 10:30-0400 SaO2% (BldA) [Mass fraction] 99 % Dr. Angel Fuller MD Work Phone: 0(742)031-998804 [place] [address] 11-21-2024 10:30-0400 Systolic blood pressure 134 mm[Hg] Dr. Angel Fuller MD Work Phone: 4(525)544-345204 [place] [address] 11-21-2024 08:23-0400 Body mass index (BMI) [Ratio] 34.4 kg/m2 Dr. Angel Fuller MD Work Phone: 4(731)311-896104 [place] [address] 11-21-2024 08:23-0400 Body weight 62.[address] Angel Fuller MD Work Phone: 7(380)741-892104 [place] [address] 11-21-2024 08:14-0400 Body height 134.[address] Angel Fuller MD Work Phone: 7(354)303-571504 [place] [address] 11-17-2024 09:21-0400 Body mass index (BMI) [Ratio] 25.7 kg/m2 Dr. Angel Fuller MD Work Phone: 5(067)352-880904 [place] [address] 11-17-2024 09:21-0400 Body temperature 97.8 [degF] Dr. Angel Fuller MD Work Phone: 8(949)515-645904 [place] [address] 11-17-2024 09:21-0400 Body weight 67.[address] Angel Fuller MD Work Phone: 9(495)106-458804 [place] [address] 11-17-2024 09:21-0400 Diastolic blood pressure 70 mm[Hg] Dr. Angel Fuller MD Work Phone: 6(722)127-725404 [place] [address] 11-17-2024 09:21-0400 Heart rate 75 /min Dr. Angel Fuller MD Work Phone: 6(285)669-801412 [place] [address] 11-17-2024 09:21-0400 Respiratory rate 17 /min Dr. Angel Fuller MD Work Phone: 5(957)382-137812 [place] [address] 11-17-2024 09:21-0400 SaO2% (BldA) [Mass fraction] 98 % Dr. Angel Fuller MD Work Phone: 6(666)415-908512 [place] [address] 11-17-2024 09:21-0400 Systolic blood pressure 148 mm[Hg] Dr. Angel Fuller MD Work Phone: 1(999)619-783804 [place] [address] 11-10-2024 13:02-0400 Body height 162.[address] Angel Fuller MD Work Phone: 2(703)833-660904 [place] [address] 11-10-2024 13:02-0400 Body mass index (BMI) [Ratio] 25.5 kg/m2 Dr. Angel Fuller MD Work Phone: 4(533)051-134604 [place] [address] 11-10-2024 13:02-0400 Body temperature 97.8 [degF] Dr. Angel Fuller MD Work Phone: 4(095)163-722104 [place] [address] 11-10-2024 13:02-0400 Body weight 67.[address] Angel Fuller MD Work Phone: 5(880)757-122004 [place] [address] 11-10-2024 13:02-0400 Diastolic blood pressure 78 mm[Hg] Dr. Angel Fuller MD Work Phone: 3(702)851-969404 [place] [address] 11-10-2024 13:02-0400 Heart rate 75 /min Dr. Angel Fuller MD Work Phone: 5(420)207-629004 [place] [address] 11-10-2024 13:02-0400 Respiratory rate 15 /min Dr. Angel Fuller MD Work Phone: 4(724)702-782604 [place] [address] 11-10-2024 13:02-0400 SaO2% (BldA) [Mass fraction] 99 % Dr. Angel Fuller MD Work Phone: 1(737)275-543604 [place] [address] 11-10-2024 13:02-0400 Systolic blood pressure 133 mm[Hg] Dr. Angel Fuller MD Work Phone: 4(835)219-922104 [place] [address] 10-17-2024 08:24-0400 Body height 162.[address] Angel Fuller MD Work Phone: 2(086)349-621704 [place] [address] 10-17-2024 08:24-0400 Body mass index (BMI) [Ratio] 25.7 kg/m2 Dr. Angel Fuller MD Work Phone: 7(348)356-070504 [place] [address] 10-17-2024 08:24-0400 Body temperature 98 [degF] Dr. Angel Fuller MD Work Phone: 7(664)311-452604 [place] [address] 10-17-2024 08:24-0400 Body weight 68.[address] Angel Fuller MD Work Phone: 4(805)908-249204 [place] [address] 10-17-2024 08:24-0400 Diastolic blood pressure 78 mm[Hg] Dr. Angel Fuller MD Work Phone: 4(351)513-604004 [place] [address] 10-17-2024 08:24-0400 Heart rate 64 /min Dr. Angel Fuller MD Work Phone: 8(711)002-977004 [place] [address] 10-17-2024 08:24-0400 Respiratory rate 16 /min Dr. Angel Fuller MD Work Phone: 3(982)970-951204 [place] [address] 10-17-2024 08:24-0400 SaO2% (BldA) [Mass fraction] 98 % Dr. Angel Fuller MD Work Phone: 9(095)633-750204 [place] [address] 10-17-2024 08:24-0400 Systolic blood pressure 155 mm[Hg] Dr. Angel Fuller MD Work Phone: 8(146)044-400804 [place] [address] 09-15-2024 10:21-0400 Body mass index (BMI) [Ratio] 26.2 kg/m2 Dr. Angel Fuller MD Work Phone: 4(620)964-300604 [place] [address] 09-15-2024 10:21-0400 Body temperature 98 [degF] Dr. Angel Fuller MD Work Phone: 0(136)593-054704 [place] [address] 09-15-2024 10:21-0400 Body weight 69.[address] Angel Fuller MD Work Phone: 0(129)202-881804 [place] [address] 09-15-2024 10:21-0400 Diastolic blood pressure 84 mm[Hg] Dr. Angel Fuller MD Work Phone: 7(605)550-626304 [place] [address] 09-15-2024 10:21-0400 Heart rate 79 /min Dr. Angel Fuller MD Work Phone: 8(784)374-865804 [place] [address] 09-15-2024 10:21-0400 Respiratory rate 17 /min Dr. Angel Fuller MD Work Phone: 8(218)991-370904 [place] [address] 09-15-2024 10:21-0400 SaO2% (BldA) [Mass fraction] 98 % Dr. Angel Fuller MD Work Phone: 7(909)166-384704 [place] [address] 09-15-2024 10:21-0400 Systolic blood pressure 148 mm[Hg] Dr. Angel Fuller MD Work Phone: 3(293)034-288904 [place] [address] 09-07-2024 08:11-0400 Body height 162.[address] Angel Fuller MD Work Phone: 2(171)056-544504 [place] [address] 09-07-2024 08:11-0400 Body mass index (BMI) [Ratio] 26.1 kg/m2 Dr. Angel Fuller MD Work Phone: 2(405)435-902204 [place] [address] 09-07-2024 08:11-0400 Body weight 68.[address] Angel Fuller MD Work Phone: 2(832)832-926904 [place] [address] 09-05-2024 15:46-0400 Body height 162.[address] Angel Fuller MD Work Phone: 5(269)627-243704 [place] [address] 09-05-2024 15:46-0400 Body mass index (BMI) [Ratio] 26.1 kg/m2 Dr. Angel Fuller MD Work Phone: 2(024)327-026104 [place] [address] 09-05-2024 15:46-0400 Body weight 68.[address] Angel Fuller MD Work Phone: 5(335)805-554504 [place] [address] 08-30-2024 11:00-0400 Body height 162.[address] Angel Fuller MD Work Phone: [facility] 08-30-2024 11:00-0400 Body mass index (BMI) [Ratio] 26.1 kg/m2 Dr. Angel Fuller MD Work Phone: 7(710)191-821112 [place] [address] 08-30-2024 11:00-0400 Body temperature 98.2 [degF] Dr. Angel Fuller MD Work Phone: 0(755)336-228704 [place] [address] 08-30-2024 11:00-0400 Body weight 68.[address] Angel Fuller MD Work Phone: 9(456)616-030204 [place] [address] 08-30-2024 11:00-0400 Diastolic blood pressure 77 mm[Hg] Dr. Angel Fuller MD Work Phone: 1(402)774-567804 [place] [address] 08-30-2024 11:00-0400 Heart rate 75 /min Dr. Angel Fuller MD Work Phone: 6(397)163-612404 [place] [address] 08-30-2024 11:00-0400 Respiratory rate 16 /min Dr. Angel Fuller MD Work Phone: 2(115)215-669704 [place] [address] 08-30-2024 11:00-0400 SaO2% (BldA) [Mass fraction] 99 % Dr. Angel Fuller MD Work Phone: 4(192)550-410504 [place] [address] 08-30-2024 11:00-0400 Systolic blood pressure 160 mm[Hg] Dr. Angel Fuller MD Work Phone: 6(120)804-127104 [place] [address] 08-15-2024 10:14-0400 Body temperature 98.2 [degF] Dr. Angel Fuller MD Work Phone: 6(017)139-546394 [address] 08-15-2024 10:14-0400 Body weight 68.[address] Angel Fuller MD Work Phone: 6(242)439-085012 [place] [address] 08-15-2024 10:14-0400 Diastolic blood pressure 72 mm[Hg] Dr. Angel Fuller MD Work Phone: 9(372)579-907504 [place] [address] 08-15-2024 10:14-0400 Heart rate 71 /min Dr. Angel Fuller MD Work Phone: [facility] 08-15-2024 10:14-0400 Respiratory rate 17 /min Dr. Angel Fuller MD Work Phone: 8(267)815-686412 [place] [address] 08-15-2024 10:14-0400 SaO2% (BldA) [Mass fraction] 99 % Dr. Angel Fuller MD Work Phone: 5(067)737-881704 [place] [address] 08-15-2024 10:14-0400 Systolic blood pressure 152 mm[Hg] Dr. Angel Fuller MD Work Phone: 4(461)861-269804 [place] [address] 08-13-2024 22:21-0400 Body temperature 98 [degF] Dr. Angel Fuller MD Work Phone: 7(832)068-685204 [place] [address] 08-13-2024 22:21-0400 Diastolic blood pressure 79 mm[Hg] Dr. Angel Fuller MD Work Phone: 4(854)825-156804 [place] [address] 08-13-2024 22:21-0400 Heart rate 71 /min Dr. Angel Fuller MD Work Phone: 2(887)652-820312 [place] [address] 08-13-2024 22:21-0400 Respiratory rate 18 /min Dr. Angel Fuller MD Work Phone: 5(929)433-737404 [place] [address] 08-13-2024 22:21-0400 SaO2% (BldA) [Mass fraction] 99 % Dr. Angel Fuller MD Work Phone: 5(279)210-090304 [place] [address] 08-13-2024 22:21-0400 Systolic blood pressure 167 mm[Hg] Dr. Angel Fuller MD Work Phone: 7(571)979-510512 [place] [address] 08-13-2024 20:35-0400 Body mass index (BMI) [Ratio] 26.4 kg/m2 Dr. Angel Fuller MD Work Phone: 7(353)597-210804 [place] [address] 08-13-2024 20:35-0400 Body weight 69.[address] Angel Fuller MD Work Phone: 2(902)366-181204 [place] [address] 08-13-2024 18:34-0400 Body height 162.[address] Angel Fuller MD Work Phone: 4(064)025-828312 [place] [address] 07-14-2024 11:01-0400 Body temperature 97.8 [degF] Dr. Angel Fuller MD Work Phone: [facility] 07-14-2024 11:01-0400 Body weight 70.[address] Angel Fuller MD Work Phone: [facility] 07-14-2024 11:01-0400 Diastolic blood pressure 77 mm[Hg] Dr. Angel Fuller MD Work Phone: [facility] 07-14-2024 11:01-0400 Heart rate 76 /min Dr. Angel Fuller MD Work Phone: 8(925)238-352312 [place] [address] 07-14-2024 11:01-0400 Respiratory rate 17 /min Dr. Angel Fuller MD Work Phone: [facility] 07-14-2024 11:01-0400 SaO2% (BldA) [Mass fraction] 99 % Dr. Angel Fuller MD Work Phone: [facility] 07-14-2024 11:01-0400 Systolic blood pressure 151 mm[Hg] Dr. Angel Fuller MD Work Phone: [facility] 07-12-2024 11:22-0400 Diastolic blood pressure 84 mm[Hg] Karie Meyer DO Work Phone: [facility] 07-12-2024 11:22-0400 Heart rate 79 /min Karie Meyer DO Work Phone: [facility] 07-12-2024 11:22-0400 SaO2% (BldA) [Mass fraction] 98 % Karie Meyer DO Work Phone: [facility] 07-12-2024 11:22-0400 Systolic blood pressure 143 mm[Hg] Karie Meyer DO Work Phone: [facility] 06-30-2024 11:27-0400 Body height 162.[address] Angel Fuller MD Work Phone: [facility] 06-30-2024 11:27-0400 Body mass index (BMI) [Ratio] 26.2 kg/m2 Dr. Angel Fuller MD Work Phone: 4(616)851-235212 [place] [address] 06-30-2024 11:27-0400 Body temperature 98 [degF] Dr. Angel Fuller MD Work Phone: 9(165)343-198904 [place] [address] 06-30-2024 11:27-0400 Body weight 69.[address] Angel Fuller MD Work Phone: 8(269)680-192204 [place] [address] 06-30-2024 11:27-0400 Diastolic blood pressure 76 mm[Hg] Dr. Angel Fuller MD Work Phone: 1(066)556-976804 [place] [address] 06-30-2024 11:27-0400 Heart rate 86 /min Dr. Angel Fuller MD Work Phone: 8(207)297-692704 [place] [address] 06-30-2024 11:27-0400 Respiratory rate 16 /min Dr. Angel Fuller MD Work Phone: 9(662)977-098604 [place] [address] 06-30-2024 11:27-0400 SaO2% (BldA) [Mass fraction] 99 % Dr. Angel Fuller MD Work Phone: 6(891)349-216304 [place] [address] 06-30-2024 11:27-0400 Systolic blood pressure 137 mm[Hg] Dr. Angel Fuller MD Work Phone: 7(351)425-077004 [place] [address] 06-09-2024 14:06-0400 Body mass index (BMI) [Ratio] 26.1 kg/m2 Dr. Angel Fuller MD Work Phone: 9(324)497-258604 [place] [address] 06-09-2024 14:06-0400 Body temperature 97.8 [degF] Dr. Angel Fuller MD Work Phone: 1(011)780-452104 [place] [address] 06-09-2024 14:06-0400 Body weight 69.[address] Angel Fuller MD Work Phone: 5(774)018-782204 [place] [address] 06-09-2024 14:06-0400 Diastolic blood pressure 76 mm[Hg] Dr. Angel Fuller MD Work Phone: 0(143)020-529404 [place] [address] 06-09-2024 14:06-0400 Heart rate 83 /min Dr. Angel Fuller MD Work Phone: 8(545)402-648712 [place] [address] 06-09-2024 14:06-0400 Respiratory rate 17 /min Dr. Angel Fuller MD Work Phone: [facility] 06-09-2024 14:06-0400 SaO2% (BldA) [Mass fraction] 99 % Dr. Angel Fuller MD Work Phone: 0(416)228-428112 [place] [address] 06-09-2024 14:06-0400 Systolic blood pressure 134 mm[Hg] Dr. Angel Fuller MD Work Phone: 3(277)654-514404 [place] [address] 05-10-2024 11:00-0400 Body temperature 98.2 [degF] Dr. Angel Fuller MD Work Phone: 8(909)119-648004 [place] [address] 05-10-2024 11:00-0400 Body weight 68.[address] Angel Fuller MD Work Phone: 4(259)225-140404 [place] [address] 05-10-2024 11:00-0400 Diastolic blood pressure 70 mm[Hg] Dr. Angel Fuller MD Work Phone: 7(711)617-097204 [place] [address] 05-10-2024 11:00-0400 Heart rate 80 /min Dr. Angel Fuller MD Work Phone: 5(515)388-811012 [place] [address] 05-10-2024 11:00-0400 Respiratory rate 17 /min Dr. Angel Fuller MD Work Phone: 9(338)412-392112 [place] [address] 05-10-2024 11:00-0400 SaO2% (BldA) [Mass fraction] 99 % Dr. Angel Fuller MD Work Phone: 3(533)275-629612 [place] [address] 05-10-2024 11:00-0400 Systolic blood pressure 130 mm[Hg] Dr. Angel Fuller MD Work Phone: 8(037)132-459612 [place] [address] 05-02-2024 09:28-0400 Body height 162.[address] Angel Fuller MD Work Phone: 3(600)965-978104 [place] [address] 05-02-2024 09:28-0400 Body mass index (BMI) [Ratio] 25.9 kg/m2 Dr. Angel Fuller MD Work Phone: 1(190)462-073304 [place] [address] 05-02-2024 09:28-0400 Body weight 68.[address] Angel Fuller MD Work Phone: 0(349)366-005604 [place] [address] 04-18-2024 14:42-0500 Body temperature 98.2 [degF] Dr. Angel Fuller MD Work Phone: 2(745)197-677004 [place] [address] 04-18-2024 14:42-0500 Diastolic blood pressure 87 mm[Hg] Dr. Angel Fuller MD Work Phone: 0(657)653-721904 [place] [address] 04-18-2024 14:42-0500 Heart rate 73 /min Dr. Angel Fuller MD Work Phone: 3(953)537-782804 [place] [address] 04-18-2024 14:42-0500 Respiratory rate 16 /min Dr. Angel Fuller MD Work Phone: 7(215)999-201104 [place] [address] 04-18-2024 14:42-0500 SaO2% (BldA) [Mass fraction] 97 % Dr. Angel Fuller MD Work Phone: 9(108)771-845204 [place] [address] 04-18-2024 14:42-0500 Systolic blood pressure 155 mm[Hg] Dr. Angel Fuller MD Work Phone: 7(975)904-666404 [place] [address] 04-18-2024 12:17-0500 Body mass index (BMI) [Ratio] 26 kg/m2 Dr. Angel Fuller MD Work Phone: 4(353)798-924304 [place] [address] 04-18-2024 12:17-0500 Body weight 68.[address] Angel Fuller MD Work Phone: 6(962)807-114504 [place] [address] 04-18-2024 12:14-0500 Body height 162.[address] Angel Fuller MD Work Phone: 3(575)842-768004 [place] [address] 04-16-2024 19:02-0500 Body temperature 97.8 [degF] Dr. Angel Fuller MD Work Phone: 8(773)172-191104 [place] [address] 04-16-2024 19:02-0500 Diastolic blood pressure 90 mm[Hg] Dr. Angel Fuller MD Work Phone: 2(147)234-974704 [place] [address] 04-16-2024 19:02-0500 Heart rate 73 /min Dr. Angel Fuller MD Work Phone: 2(067)212-314104 [place] [address] 04-16-2024 19:02-0500 Respiratory rate 17 /min Dr. Angel Fuller MD Work Phone: 5(299)794-292604 [place] [address] 04-16-2024 19:02-0500 SaO2% (BldA) [Mass fraction] 98 % Dr. Angel Fuller MD Work Phone: 8(620)409-222604 [place] [address] 04-16-2024 19:02-0500 Systolic blood pressure 172 mm[Hg] Dr. Angel Fuller MD Work Phone: 0(686)079-084204 [place] [address] 04-16-2024 17:07-0500 Body mass index (BMI) [Ratio] 25.9 kg/m2 Dr. Angel Fuller MD Work Phone: 8(849)950-706504 [place] [address] 04-16-2024 17:07-0500 Body weight 68.[address] Angel Fuller MD Work Phone: 0(286)351-509104 [place] [address] 04-12-2024 18:59-0500 Body temperature 99 [degF] Dr. Angel Fuller MD Work Phone: 0(669)821-083604 [place] [address] 04-12-2024 18:59-0500 Diastolic blood pressure 75 mm[Hg] Dr. Angel Fuller MD Work Phone: 5(797)237-948704 [place] [address] 04-12-2024 18:59-0500 Heart rate 66 /min Dr. Angel Fuller MD Work Phone: 6(496)449-464404 [place] [address] 04-12-2024 18:59-0500 Respiratory rate 18 /min Dr. Angel Fuller MD Work Phone: 6(696)432-908104 [place] [address] 04-12-2024 18:59-0500 SaO2% (BldA) [Mass fraction] 96 % Dr. Angel Fuller MD Work Phone: 7(355)572-611004 [place] [address] 04-12-2024 18:59-0500 Systolic blood pressure 133 mm[Hg] Dr. Angel Fuller MD Work Phone: 5(215)533-327912 [place] [address] 04-12-2024 15:30-0500 Body mass index (BMI) [Ratio] 26.3 kg/m2 Dr. Angel Fuller MD Work Phone: 6(318)111-452412 [place] [address] 04-12-2024 15:30-0500 Body weight [address] Angel Fuller MD Work Phone: 8(867)209-422304 [place] [address] 04-12-2024 11:59-0500 Body temperature 99.5 [degF] Dr. Angel Fuller MD Work Phone: 6(401)515-274204 [place] [address] 04-12-2024 11:59-0500 Diastolic blood pressure 70 mm[Hg] Dr. Angel Fuller MD Work Phone: 7(151)397-890204 [place] [address] 04-12-2024 11:59-0500 Heart rate 101 /min Dr. Angel Fuller MD Work Phone: 5(855)112-423204 [place] [address] 04-12-2024 11:59-0500 Respiratory rate 12 /min Dr. Angel Fuller MD Work Phone: 3(839)290-978104 [place] [address] 04-12-2024 11:59-0500 SaO2% (BldA) [Mass fraction] 99 % Dr. Angel Fuller MD Work Phone: 6(966)499-438312 [place] [address] 04-12-2024 11:59-0500 Systolic blood pressure 140 mm[Hg] Dr. Angel Fuller MD Work Phone: 8(543)706-740304 [place] [address] 04-05-2024 10:31-0500 Body temperature 97.2 [degF] Dr. Angel Fuller MD Work Phone: 6(991)090-789212 [place] [address] 04-05-2024 10:31-0500 Diastolic blood pressure 64 mm[Hg] Dr. Angel Fuller MD Work Phone: 2(809)592-285612 [place] [address] 04-05-2024 10:31-0500 Heart rate 71 /min Dr. Angel Fuller MD Work Phone: 8(033)553-535012 [place] [address] 04-05-2024 10:31-0500 Respiratory rate 16 /min Dr. Angel Fuller MD Work Phone: 6(618)332-171004 [place] [address] 04-05-2024 10:31-0500 SaO2% (BldA) [Mass fraction] 98 % Dr. Angel Fuller MD Work Phone: 2(088)802-290204 [place] [address] 04-05-2024 10:31-0500 Systolic blood pressure 103 mm[Hg] Dr. Angel Fuller MD Work Phone: 3(590)723-732204 [place] [address] 04-05-2024 09:58-0500 Body mass index (BMI) [Ratio] 26.2 kg/m2 Dr. Angel Fuller MD Work Phone: 7(935)291-530804 [place] [address] 04-05-2024 09:58-0500 Body weight 69.[address] Angel Fuller MD Work Phone: 8(239)818-246604 [place] [address] 04-04-2024 08:55-0500 Body mass index (BMI) [Ratio] 25.9 kg/m2 Dr. Angel Fuller MD Work Phone: 3(118)068-031804 [place] [address] 04-04-2024 08:55-0500 Body temperature 98 [degF] Dr. Angel Fuller MD Work Phone: 2(864)100-867704 [place] [address] 04-04-2024 08:55-0500 Body weight 68.[address] Angel Fuller MD Work Phone: 5(287)971-019904 [place] [address] 04-04-2024 08:55-0500 Diastolic blood pressure 82 mm[Hg] Dr. Angel Fuller MD Work Phone: 3(575)874-836704 [place] [address] 04-04-2024 08:55-0500 Heart rate 89 /min Dr. Angel Fuller MD Work Phone: 0(902)770-583804 [place] [address] 04-04-2024 08:55-0500 Respiratory rate 16 /min Dr. Angel Fuller MD Work Phone: 0(468)394-008704 [place] [address] 04-04-2024 08:55-0500 SaO2% (BldA) [Mass fraction] 99 % Dr. Angel Fuller MD Work Phone: 3(527)749-671504 [place] [address] 04-04-2024 08:55-0500 Systolic blood pressure 148 mm[Hg] Dr. Angel Fuller MD Work Phone: 5(006)800-980812 [place] [address] 03-13-2024 00:29-0500 Body temperature 98.4 [degF] Dr. Angel Fuller MD Work Phone: 4(424)088-400804 [place] [address] 03-13-2024 00:29-0500 Diastolic blood pressure 78 mm[Hg] Dr. Angel Fuller MD Work Phone: 6(099)827-567604 [place] [address] 03-13-2024 00:29-0500 Heart rate 71 /min Dr. Angel Fuller MD Work Phone: 2(809)171-197504 [place] [address] 03-13-2024 00:29-0500 Respiratory rate 18 /min Dr. Angel Fuller MD Work Phone: 1(112)864-585304 [place] [address] 03-13-2024 00:29-0500 SaO2% (BldA) [Mass fraction] 98 % Dr. Angel Fuller MD Work Phone: 8(751)341-207304 [place] [address] 03-13-2024 00:29-0500 Systolic blood pressure 163 mm[Hg] Dr. Angel Fuller MD Work Phone: 2(997)215-488404 [place] [address] 03-12-2024 20:45-0500 Body mass index (BMI) [Ratio] 26.6 kg/m2 Dr. Angel Fuller MD Work Phone: 0(552)173-136104 [place] [address] 03-12-2024 20:45-0500 Body weight 70.[address] Angel Fuller MD Work Phone: 5(562)780-694804 [place] [address] 03-06-2024 13:21-0500 Body temperature 98.6 [degF] Dr. Angel Fuller MD Work Phone: 4(567)136-389804 [place] [address] 03-06-2024 13:21-0500 Diastolic blood pressure 76 mm[Hg] Dr. Angel Fuller MD Work Phone: 3(700)904-476404 [place] [address] 03-06-2024 13:21-0500 Heart rate 71 /min Dr. Angel Fuller MD Work Phone: 1(246)649-822104 [place] [address] 03-06-2024 13:21-0500 Respiratory rate 16 /min Dr. Angel Fuller MD Work Phone: 4(681)480-724904 [place] [address] 03-06-2024 13:21-0500 SaO2% (BldA) [Mass fraction] 99 % Dr. Angel Fuller MD Work Phone: 2(920)193-009212 [place] [address] 03-06-2024 13:21-0500 Systolic blood pressure 146 mm[Hg] Dr. Angel Fuller MD Work Phone: 5(352)[phone] [place] [address] 02-19-2024 15:45-0500 Body mass index (BMI) [Ratio] 26.9 kg/m2 Dr. Angel Fuller MD Work Phone: 5(464)[phone] [place] [address] 02-19-2024 15:45-0500 Body weight 71.[address] Angel Fuller MD Work Phone: 3(654)[phone] [place] [address] 02-19-2024 15:45-0500 Diastolic blood pressure 85 mm[Hg] Dr. Angel Fuller MD Work Phone: 5(067)[phone] [place] [address] 02-19-2024 15:45-0500 Heart rate 82 /min Dr. Angle Fuller MD Work Phone: 6(656)[phone] [place] [address] 02-19-2024 15:45-0500 SaO2% (BldA) [Mass fraction] 99 % Dr. Angel Fuller MD Work Phone: 8(619)[phone] [place] [address] 02-19-2024 15:45-0500 Systolic blood pressure 147 mm[Hg] Dr. Angel Fuller MD Work Phone: 2(026)[phone] [place] [address] 09-08-2023 11:41-0400 Body mass index (BMI) [Ratio] 27.16 kg/m2 Prisca Cox MD Work Phone: [facility] 09-08-2023 11:41-0400 Body weight 71.22 kg Prisca Cox MD Work Phone: [facility] 09-08-2023 11:41-0400 Diastolic blood pressure 82 mm[Hg] Prisca Cox MD Work Phone: [facility] 09-08-2023 11:41-0400 Systolic blood pressure 144 mm[Hg] Prisca Cox MD Work Phone: [facility] 06-11-2023 11:02-0400 Body weight 70.13 kg Christine Prattyolanda PARKER.AUTOMOTIVE SERVICE ASSISTANT Work Phone: [facility] 06-11-2023 11:02-0400 Diastolic blood pressure 80 mm[Hg] Christine Prattyolanda LACE WINDER.AUTOMOTIVE SERVICE ASSISTANT Work Phone: [facility] 06-11-2023 11:02-0400 Heart rate 70 /min Christine Prattyolanda LACE WINDER.AUTOMOTIVE SERVICE ASSISTANT Work Phone: [facility] 06-11-2023 11:02-0400 SaO2% (BldA) [Mass fraction] 99 % hCristine Prattyolanda LACE WINDER.AUTOMOTIVE SERVICE ASSISTANT Work Phone: [facility] 06-11-2023 11:02-0400 Systolic blood pressure 140 mm[Hg] Christine Prattyolanda LACE WINDER.AUTOMOTIVE SERVICE ASSISTANT Work Phone: [facility] 06-10-2023 13:07-0400 Body height 162.[address] Angel Fuller Work Phone: [facility] 06-10-2023 13:07-0400 Body mass index (BMI) [Ratio] 26.3 kg/m2 Dr. Angel Fuller Work Phone: [facility] 06-10-2023 13:07-0400 Body weight 69.[address] Angel Fuller Work Phone: [facility] 06-10-2023 13:07-0400 Diastolic blood pressure 87 mm[Hg] Dr. Angel Fuller Work Phone: [facility] 06-10-2023 13:07-0400 Heart rate 79 /min Dr. Angel Fuller Work Phone: [facility] 06-10-2023 13:07-0400 Respiratory rate 16 /min Dr. Angel Fuller Work Phone: [facility] 06-10-2023 13:07-0400 Systolic blood pressure 162 mm[Hg] Dr. Angel Fuller Work Phone: [facility] 03-20-2023 11:04-0500 Body temperature 97.6 [degF] Dr. Angel Fuller Work Phone: [facility] 03-20-2023 11:04-0500 Diastolic blood pressure 71 mm[Hg] Dr. Angel Fuller Work Phone: [facility] 03-20-2023 11:04-0500 Heart rate 67 /min Dr. Angel Fuller Work Phone: [facility] 03-20-2023 11:04-0500 Respiratory rate 16 /min Dr. Angel Fuller Work Phone: [facility] 03-20-2023 11:04-0500 SaO2% (BldA) [Mass fraction] 97 % Dr. Angel Fuller Work Phone: [facility] 03-20-2023 11:04-0500 Systolic blood pressure 137 mm[Hg] Dr. Angel Fuller Work Phone: [facility] 03-20-2023 10:24-0500 Body height 162.[address] Angel Fuller Work Phone: [facility] 03-09-2023 11:00-0500 Body mass index (BMI) [Ratio] 25.7 kg/m2 Dr. Angel Fuller Work Phone: [facility] 03-09-2023 11:00-0500 Body temperature 98 [degF] Dr. Angel Fuller Work Phone: [facility] 03-09-2023 11:00-0500 Body weight 68.[address] Angel Fuller Work Phone: [facility] 03-09-2023 11:00-0500 Diastolic blood pressure 80 mm[Hg] Dr. Angel Fuller Work Phone: [facility] 03-09-2023 11:00-0500 Heart rate 85 /min Dr. Angel Fuller Work Phone: [facility] 03-09-2023 11:00-0500 Respiratory rate 12 /min Dr. Angel Fuller Work Phone: [facility] 03-09-2023 11:00-0500 SaO2% (BldA) [Mass fraction] 98 % Dr. Angel Fuller Work Phone: [facility] 03-09-2023 11:00-0500 Systolic blood pressure 158 mm[Hg] Dr. Angel Fuller Work Phone: 1(408)085-125794 [address] 02-19-2023 15:51-0500 Body height 162.[address] Angel Fuller Work Phone: 9(030)[phone] [place] [address] 02-19-2023 15:51-0500 Body mass index (BMI) [Ratio] 25.5 kg/m2 Dr. Angel Fuller Work Phone: 2(269)[phone] [address] 02-19-2023 15:51-0500 Body temperature 98.2 [degF] Dr. Angel Fuller Work Phone: 2(519)[phone] [place] [address] 02-19-2023 15:51-0500 Body weight 67.[address] Angel Fuller Work Phone: 0(418)[phone] [address] 02-19-2023 15:51-0500 Diastolic blood pressure 82 mm[Hg] Dr. Angel Fuller Work Phone: 4(102)[phone] [place] [address] 02-19-2023 15:51-0500 Heart rate 89 /min Dr. Angel Fuller Work Phone: [facility] 02-19-2023 15:51-0500 Respiratory rate 16 /min Dr. Angel Fuller Work Phone: [facility] 02-19-2023 15:51-0500 SaO2% (BldA) [Mass fraction] 98 % Dr. Angel Fuller Work Phone: [facility] 02-19-2023 15:51-0500 Systolic blood pressure 151 mm[Hg] Dr. Angel Fuller Work Phone: [facility] 11-21-2022 12:56-0400 Body height 161.9 cm [place] Mendez LACE WINDER.AUTOMOTIVE SERVICE ASSISTANT Work Phone: [facility] 11-21-2022 12:56-0400 Body temperature 97.5 [degF] Deyanira Mendez LACE WINDER.AUTOMOTIVE SERVICE ASSISTANT Work Phone: [facility] 11-21-2022 12:56-0400 Body weight 68.49 kg Deyanira Mendez LACE WINDER.AUTOMOTIVE SERVICE ASSISTANT Work Phone: [facility] 11-21-2022 12:56-0400 Diastolic blood pressure 84 mm[Hg] Deyanira Mendez LACE WINDER.AUTOMOTIVE SERVICE ASSISTANT Work Phone: [facility] 11-21-2022 12:56-0400 Heart rate 76 /min Deyanira Mendez LACE WINDER.AUTOMOTIVE SERVICE ASSISTANT Work Phone: [facility] 11-21-2022 12:56-0400 SaO2% (BldA) [Mass fraction] 99 % [place] Mendez LACE WINDER.AUTOMOTIVE SERVICE ASSISTANT Work Phone: [facility] 11-21-2022 12:56-0400 Systolic blood pressure 146 mm[Hg] Deyanira Chaenter LACE WINDER.AUTOMOTIVE SERVICE ASSISTANT Work Phone: [facility] 07-01-2022 15:03-0400 Body weight 68.04 kg Prisca Cox MD Work Phone: [facility] 07-01-2022 15:03-0400 Diastolic blood pressure 60 mm[Hg] Prisca Cox MD Work Phone: [facility] 07-01-2022 15:03-0400 Systolic blood pressure 124 mm[Hg] Prisca Cox MD Work Phone: [facility] 06-25-2022 10:19-0400 Body weight 68.04 kg Olga Rennerdebby LACE WINDER.CNM Work Phone: [facility] 06-25-2022 10:19-0400 Diastolic blood pressure 70 mm[Hg] Olga Plotts LACE WINDER.CNM Work Phone: [facility] 06-25-2022 10:19-0400 Systolic blood pressure 124 mm[Hg] Olga Steinberg LACE WINDER.CNM Work Phone: [facility] 05-07-2022 14:09-0400 Body temperature 96.8 [degF] Robert Masci DO Work Phone: [facility] 05-07-2022 14:09-0400 Diastolic blood pressure 75 mm[Hg] Robert Masci DO Work Phone: [facility] 05-07-2022 14:09-0400 Heart rate 68 /min Robert Masci DO Work Phone: [facility] 05-07-2022 14:09-0400 Systolic blood pressure 160 mm[Hg] Robert Masci DO Work Phone: [facility] 04-11-2022 15:40-0500 Body temperature 97.2 [degF] Robert Masci DO Work Phone: [facility] 04-11-2022 15:40-0500 Body weight 71.22 kg Robert Masci DO Work Phone: [facility] 04-11-2022 15:40-0500 Diastolic blood pressure 82 mm[Hg] Robert Masci DO Work Phone: [facility] 04-11-2022 15:40-0500 Heart rate 76 /min Robert Masci DO Work Phone: [facility] 04-11-2022 15:40-0500 SaO2% (BldA) [Mass fraction] 99 % Robert Masci DO Work Phone: [facility] 04-11-2022 15:40-0500 Systolic blood pressure 148 mm[Hg] Robert Masci DO Work Phone: [facility] 04-01-2022 14:36-0500 Body height 163 cm Robert Masci DO Work Phone: [facility] 04-01-2022 14:36-0500 Body temperature 97.9 [degF] Robert Masci DO Work Phone: [facility] 04-01-2022 14:36-0500 Body weight 71.44 kg Robert Masci DO Work Phone: [facility] 04-01-2022 14:36-0500 Diastolic blood pressure 86 mm[Hg] Robert Weber DO Work Phone: [facility] 04-01-2022 14:36-0500 Heart rate 87 /min Robert Weber DO Work Phone: [facility] 04-01-2022 14:36-0500 SaO2% (BldA) [Mass fraction] 99 % Robert Weber DO Work Phone: [facility] 04-01-2022 14:36-0500 Systolic blood pressure 143 mm[Hg] Robert Weber DO Work Phone: [facility] 02-19-2022 14:45-0500 Body temperature 97 [degF] Dr. Angel Fuller Work Phone: [facility] Work Phone: 02-19-2022 14:45-0500 Diastolic blood pressure 65 mm[Hg] Dr. Angel Fuller Work Phone: [facility] Work Phone: 02-19-2022 14:45-0500 Heart rate 72 /min Dr. Angel Fuller Work Phone: [facility] Work Phone: 02-19-2022 14:45-0500 Respiratory rate 16 /min Dr. Angel Fuller Work Phone: [facility] Work Phone: 02-19-2022 14:45-0500 SaO2% (BldA) [Mass fraction] 100 % Dr. Angel Fuller Work Phone: [facility] Work Phone: 02-19-2022 14:45-0500 Systolic blood pressure 130 mm[Hg] Dr. Angel Fuller Work Phone: [facility] Work Phone: 02-06-2022 08:37-0500 Body height 162.[address] Angel Fuller Work Phone: [facility] Work Phone: 02-06-2022 08:37-0500 Body mass index (BMI) [Ratio] 26.2 kg/m2 Dr. Angel Fuller Work Phone: [facility] Work Phone: 02-06-2022 08:37-0500 Body temperature 96.5 [degF] Dr. Angel Fuller Work Phone: [facility] Work Phone: 02-06-2022 08:37-0500 Body weight 69.[address] Angel Fuller Work Phone: [facility] Work Phone: 02-06-2022 08:37-0500 Diastolic blood pressure 84 mm[Hg] Dr. Angel Fuller Work Phone: [facility] Work Phone: 02-06-2022 08:37-0500 Heart rate 73 /min Dr. Angel Fuller Work Phone: [facility] Work Phone: 02-06-2022 08:37-0500 Respiratory rate 18 /min Dr. Angel Fuller Work Phone: [facility] Work Phone: 02-06-2022 08:37-0500 SaO2% (BldA) [Mass fraction] 97 % Dr. Angel Fuller Work Phone: [facility] Work Phone: 02-06-2022 08:37-0500 Systolic blood pressure 144 mm[Hg] Dr. Angel Fuller Work Phone: [facility] Work Phone: 12-26-2021 15:48-0400 Body weight 67.59 kg Andres Vasquez MD Work Phone: [facility] 12-26-2021 15:48-0400 Diastolic blood pressure 76 mm[Hg] Andres Vasquez MD Work Phone: [facility] 12-26-2021 15:48-0400 Systolic blood pressure 128 mm[Hg] Andres Vasquez MD Work Phone: [facility] 07-30-2021 14:13-0400 Body height 163.8 cm Deyaniratammy Mendez LACE WINDER.AUTOMOTIVE SERVICE ASSISTANT Work Phone: [facility] 07-30-2021 14:13-0400 Body temperature 98.1 [degF] [place] Mendez LACE WINDER.AUTOMOTIVE SERVICE ASSISTANT Work Phone: [facility] 07-30-2021 14:13-0400 Body weight 65.09 kg Deyanira Chaenter LACE WINDER.AUTOMOTIVE SERVICE ASSISTANT Work Phone: [facility] 07-30-2021 14:13-0400 Diastolic blood pressure 80 mm[Hg] Deyanira Mendez LACE WINDER.AUTOMOTIVE SERVICE ASSISTANT Work Phone: [facility] 07-30-2021 14:13-0400 Heart rate 90 /min Deyanira Mendez LACE WINDER.AUTOMOTIVE SERVICE ASSISTANT Work Phone: [facility] 07-30-2021 14:13-0400 SaO2% (BldA) [Mass fraction] 97 % Deyanira Mendez LACE WINDER.AUTOMOTIVE SERVICE ASSISTANT Work Phone: [facility] 07-30-2021 14:13-0400 Systolic blood pressure 128 mm[Hg] Deyanira Mendez LACE WINDER.AUTOMOTIVE SERVICE ASSISTANT Work Phone: [facility] 07-12-2021 18:11-0400 Body temperature 97.59 [degF] Adriana Vasquez LACE WINDER.AUTOMOTIVE SERVICE ASSISTANT Work Phone: [facility] 07-12-2021 18:11-0400 Body weight 66.04 kg Adriana Vasquez APRN.AUTOMOTIVE SERVICE ASSISTANT Work Phone: [facility] 07-12-2021 18:11-0400 Diastolic blood pressure 92 mm[Hg] Adriana Vasquez LACE WINDER.AUTOMOTIVE SERVICE ASSISTANT Work Phone: [facility] 07-12-2021 18:11-0400 Heart rate 87 /min Adriana Vasquez APRN.AUTOMOTIVE SERVICE ASSISTANT Work Phone: [facility] 07-12-2021 18:11-0400 Respiratory rate 20 /min Adriana Vasquez APRN.AUTOMOTIVE SERVICE ASSISTANT Work Phone: [facility] 07-12-2021 18:11-0400 SaO2% (BldA) [Mass fraction] 99 % Adriana Vasquez APRN.AUTOMOTIVE SERVICE ASSISTANT Work Phone: [facility] 07-12-2021 18:11-0400 Systolic blood pressure 162 mm[Hg] Adriana Vasquez APRN.AUTOMOTIVE SERVICE ASSISTANT Work Phone: [facility] 06-10-2021 22:25-0400 Body temperature 98.2 [degF] Dr. Angel Fuller Work Phone: [facility] Work Phone: 06-10-2021 22:25-0400 Diastolic blood pressure 75 mm[Hg] Dr. Angel Fuller Work Phone: [facility] Work Phone: 06-10-2021 22:25-0400 Systolic blood pressure 149 mm[Hg] Dr. Angel Fuller Work Phone: [facility] Work Phone: 06-10-2021 21:36-0400 Heart rate 81 /min Dr. Angel Fuller Work Phone: [facility] Work Phone: 06-10-2021 21:36-0400 Respiratory rate 16 /min Dr. Angel Fuller Work Phone: [facility] Work Phone: 06-10-2021 21:36-0400 SaO2% (BldA) [Mass fraction] 98 % Dr. Angel Fuller Work Phone: [facility] Work Phone: 06-10-2021 16:57-0400 Body height 162.[address] Angel Fuller Work Phone: [facility] Work Phone: 06-10-2021 16:57-0400 Body mass index (BMI) [Ratio] 23.8 kg/m2 Dr. Angel Fuller Work Phone: [facility] Work Phone: 06-10-2021 16:57-0400 Body weight [address] Angel Fuller Work Phone: [facility] Work Phone: 06-01-2021 13:30-0400 Body temperature 98.4 [degF] Adriana Vasquez APRN.AUTOMOTIVE SERVICE ASSISTANT Work Phone: [facility] 06-01-2021 13:30-0400 Body weight 63.78 kg Adriana Vasquez APRN.AUTOMOTIVE SERVICE ASSISTANT Work Phone: [facility] 06-01-2021 13:30-0400 Diastolic blood pressure 90 mm[Hg] Adriana Vasquez APRN.AUTOMOTIVE SERVICE ASSISTANT Work Phone: [facility] 06-01-2021 13:30-0400 Heart rate 82 /min Adriana Vasquez APRN.AUTOMOTIVE SERVICE ASSISTANT Work Phone: [facility] 06-01-2021 13:30-0400 Respiratory rate 14 /min Adriana Vasquez APRN.AUTOMOTIVE SERVICE ASSISTANT Work Phone: [facility] 06-01-2021 13:30-0400 SaO2% (BldA) [Mass fraction] 99 % Adriana Vasquez APRN.AUTOMOTIVE SERVICE ASSISTANT Work Phone: [facility] 06-01-2021 13:30-0400 Systolic blood pressure 130 mm[Hg] Adriana Vasquez APRN.AUTOMOTIVE SERVICE ASSISTANT Work Phone: [facility] 05-15-2021 13:05-0400 Body height 161.[address] Agnel Fuller Work Phone: [facility] Work Phone: 05-15-2021 13:05-0400 Body mass index (BMI) [Ratio] 24.6 kg/m2 Dr. Angel Fullre Work Phone: [facility] Work Phone: 05-15-2021 13:05-0400 Body temperature 96.8 [degF] Dr. Angel Fuller Work Phone: [facility] Work Phone: 05-15-2021 13:05-0400 Body weight 64.[address] Angel Fuller Work Phone: [facility] Work Phone: 05-15-2021 13:05-0400 Diastolic blood pressure 88 mm[Hg] Dr. Angel Fuller Work Phone: [facility] Work Phone: 05-15-2021 13:05-0400 Heart rate 79 /min Dr. Angel Fuller Work Phone: [facility] Work Phone: 05-15-2021 13:05-0400 Respiratory rate 18 /min Dr. Angel Fuller Work Phone: [facility] Work Phone: 05-15-2021 13:05-0400 SaO2% (BldA) [Mass fraction] 100 % Dr. Angel Fuller Work Phone: [facility] Work Phone: 05-15-2021 13:05-0400 Systolic blood pressure 150 mm[Hg] Dr. Angel Fuller Work Phone: [facility] Work Phone: 02-07-2021 07:33-0500 Body mass index (BMI) [Ratio] 23.7 kg/m2 Dr. Angel Fuller Work Phone: [facility] Work Phone: 02-07-2021 07:33-0500 Body temperature 97 [degF] Dr. Angel Fuller Work Phone: [facility] Work Phone: 02-07-2021 07:33-0500 Body weight 61.[address] Angel Fuller Work Phone: [facility] Work Phone: 02-07-2021 07:33-0500 Diastolic blood pressure 88 mm[Hg] Dr. Angel Fuller Work Phone: [facility] Work Phone: 02-07-2021 07:33-0500 Heart rate 80 /min Dr. Angel Fuller Work Phone: [facility] Work Phone: 02-07-2021 07:33-0500 Respiratory rate 18 /min Dr. Angel Fuller Work Phone: [facility] Work Phone: 02-07-2021 07:33-0500 SaO2% (BldA) [Mass fraction] 99 % Dr. Angel Fuller Work Phone: [facility] Work Phone: 02-07-2021 07:33-0500 Systolic blood pressure 140 mm[Hg] Dr. Angel Fuller Work Phone: [facility] Work Phone: Encounters Encounter Date Encounter Type Care Provider Facility Start: 01-03-2025 ambulatory [facility] Facility :[facility] Start: 12-13-2024 ambulatory [facility] Facility :[facility] Start: 11-26-2024 End: 11-26-2024 ambulatory ANGEL FULLER Facility:[facility] Start: 11-24-20[facility] Start: 11-23-2024 End: 11-23-[address] Jeovanny Moore DO -[facility] Work Phone: Start: 11-23-2024 End: 11-23-[address] Angel Fuller MD Work Phone: -[facility] Start: 11-21-2024 End: 11-21-2024 Emergency department patient visit Dr. Jefry Mir DO -Emergency Department Work Phone: Start: 11-17-2024 End: 11-17-[address] Anthony Mckeon MD -[facility] Work Phone: Start: 11-17-2024 End: 11-17-[address] Angel Fuller MD Work Phone: [facility] Start: 11-10-2024 End: 11-10-[address] Anthony Mckeon MD -[facility] Work Phone: Start: 11-10-2024 End: 11-10-[address] Angel Fuller MD Work Phone: [facility] Start: 10-31-2024 End: 10-31-[address] Jeovanny Moore DO -[facility] Work Phone: Start: 10-31-2024 End: 10-31-[address] Angel Fuller MD Work Phone: [facility] Start: 10-17-2024 End: 10-17-[address] Anthony Mckeon MD -[facility] Work Phone: Start: 10-17-2024 End: 10-17-[address] Angel Fuller MD Work Phone: [facility] Start: 09-15-2024 End: 09-15-[address] Anthony Mckeon MD -[facility] Work Phone: Start: 09-15-2024 End: 09-15-[address] Angel Fuller MD Work Phone: [facility] Start: 09-07-2024 End: 09-07-[address] Jeovanny Moore DO -[facility] Work Phone: Start: 09-07-2024 End: 09-07-[address] Angel Fuller MD Work Phone: [facility] Start: 09-05-2024 End: 09-05-[address] Marco Obrien MD -[facility] Start: 09-05-2024 End: 09-05-[address] Angel Fuller MD Work Phone: -[facility] Start: 08-31-2024 End: 08-31-[address] Angel Fuller MD Work Phone: [facility] Start: 08-31-2024 End: 08-31-[address] Anthony Mckeon MD -[facility] Work Phone: Start: 08-30-2024 End: 08-30-[address] Anthony Mckeon MD -[facility] Work Phone: Start: 08-30-2024 End: 08-31-[address] Angel Fuller MD Work Phone: -[facility] Start: 08-18-2024 End: 08-18-[address] ANGEL FULLER MD Facility:[facility] Start: 08-18-2024 End: 08-18-2024 Patient encounter procedure NAHOMI PETERSON LACE WINDER-AUTOMOTIVE SERVICE ASSISTANT [facility] Start: 08-15-2024 End: 08-15-[address] Anthony Mckeon MD -[facility] Work Phone: Start: 08-15-2024 End: 08-15-[address] Angel Fuller MD Work Phone: [facility] Work Phone: Start: 08-13-2024 End: 08-13-2024 Emergency department patient visit Dr. Angel Fuller MD Work Phone: -Emergency Department Work Phone: Start: 07-29-2024 End: 07-29-[address] Jeovanny Moore DO -[facility] Work Phone: Start: 07-29-2024 End: 07-29-[address] Angel Fuller MD Work Phone: [facility] Work Phone: Start: 07-22-2024 End: 07-22-[address] Jeovanny Moore DO -[facility] Work Phone: Start: 07-22-2024 End: 07-22-[address] Angel Fuller MD Work Phone: [facility] Work Phone: Start: 07-14-2024 End: 07-14-[address] Anthony Mckeon MD -[facility] Work Phone: Start: 07-14-2024 End: 07-14-2024 ambulatory [facility] Start: 07-13-2024 End: 07-13-[address] Jeovanny Moore DO -[facility] Work Phone: Start: 07-13-2024 End: 07-13-[address] Angel Fuller MD Work Phone: [facility] Work Phone: Start: 07-12-2024 End: 07-12-2024 Patient encounter procedure Karie Meyer DO Work Phone: Vascular Surgery Comment on above: Venous (peripheral) insufficiency (Primary Dx) Start: 07-12-2024 End: 07-12-2024 ambulatory KARIE MEYER Facility:[facility] Start: 06-30-2024 End: 06-30-[address] Angel Fuller MD Work Phone: [facility] Work Phone: Start: 06-30-2024 End: 06-30-[address] Anthony Mckeon MD -[facility] Work Phone: Start: 06-30-2024 End: 06-30-[address] Anthony Mckeon MD -[facility] Work Phone: Start: 06-30-2024 End: 06-30-2024 ambulatory [facility] Facility:[facility] Start: 06-30-2024 End: 06-30-2024 ambulatory Maben Jodigloria Facility:[facility] Start: 06-24-2024 End: 06-24-[address] Jeovanny Moore DO -[facility] Work Phone: Start: 06-24-2024 End: 06-24-2024 ambulatory Angel Fuller Facility:[facility] Start: 06-14-2024 End: 06-14-2024 ambulatory ANGEL FULLER Facility:[facility] Start: 06-09-2024 End: 06-09-[address] Anthony Mckeon MD -[facility] Work Phone: Start: 06-09-2024 End: 06-09-2024 [facility] Start: 06-03-2024 End: 06-03-2024 Telephone encounter Karie Meyer DO Work Phone: Vascular Surgery Start: 05-25-2024 End: 05-25-2024 ambulatory ANGEL FULLER Facility:[facility] Start: 05-17-2024 ambulatory Anthony Mckeon Facilit y:[facility] Start: 05-17-2024 Non-patient / Non-visit Dr. Tory davila MD -[facility] Start: 05-17-2024 End: 05-17-[address] Angel Fuller MD Work Phone: [facility] Work Phone: Start: 05-17-2024 End: 05-17-[address] Anthony Mckeon MD -Pulmonary Services/Neurology Work Phone: Start: 05-17-2024 End: 05-17-2024 ambulatory Anthonyjeromy Zapatagloria Facility:[facility] Start: 05-13-2024 End: 05-13-2024 ambulatory NAHOMI LASHELL LACE WINDER-AUTOMOTIVE SERVICE ASSISTANT Facility:[facility] Start: 05-11-2024 ambulatory Anthony Mckeon Facilit y:[facility] Start: 05-11-2024 Non-patient / Non-visit Dr. Shakeel parnell MD -[facility] Start: 05-11-2024 End: 05-11-[address] Angel Fuller MD Work Phone: [facility] Work Phone: Start: 05-11-2024 End: 05-11-[address] Anthony Mckeon MD -Pulmonary Services/Neurology Work Phone: Start: 05-10-2024 End: 05-10-[address] Anthony Mckeon MD -[place] [facility] Work Phone: Start: 05-10-2024 End: 05-11-2024 ambulatory Anthony Mckeon Facility:[facility] Start: 05-02-2024 End: 05-02-2024 Patient encounter procedure Mago COLEMAN -[facility] Work Phone: Start: 05-02-2024 End: 05-02-2024 ambulatory Angel Fuller Facility:[facility] Start: 04-28-2024 End: 05-02-2024 ambulatory PAVEL BARCENAS Facility:A Start: 04-18-2024 End: 04-18-2024 Emergency department patient visit Dr. Julien Holder DO -Emergency Department Work Phone: Start: 04-18-2024 End: 04-18-[address] Angel Fuller MD Work Phone: [facility] Work Phone: Start: 04-18-2024 End: 04-18-[address] Angel Fuller MD Work Phone: -Radiology, [facility] Work Phone: Start: 04-18-2024 End: 04-18-2024 ambulatory RAJ TITUS Facility:[facility] Start: 04-16-2024 End: 04-16-2024 Emergency department patient visit Dr. Easton Hanson DO -Emergency Department Work Phone: Start: 04-12-2024 End: 04-12-2024 Emergency department patient visit Dr. Easton Hanson DO -Emergency Department Work Phone: Start: 04-12-2024 End: 04-12-2024 Patient encounter procedure Ang Skaggs HERPETOLOGY TEACHER-C -[facility] Work Phone: Start: 04-12-2024 End: 04-12-2024 ambulatory Angel Fuller Facility:[facility] Start: 04-05-2024 End: 04-05-[address] Cade Monroy MD -Medical Out Work Phone: Start: 04-05-2024 End: 04-05-2024 ambulatory Angel Fuller Facility:[facility] Start: 04-04-2024 End: 04-04-2024 Patient encounter procedure Linda FORDC -[facility] [place] Work Phone: Start: 04-04-2024 End: 04-04-[address] Anthony Mckeon MD -[place] [facility] Work Phone: Start: 04-04-2024 End: 04-04-2024 ambulatory Anthony Mckeon Facility:[facility] Start: 04-04-2024 End: 04-04-2024 ambulatory Angel Jonny Facility:[facility] Start: 03-30-2024 End: 03-30-2024 Patient encounter procedure Mago COLEMAN -[facility] Work Phone: Start: 03-30-2024 End: 03-30-2024 ambulatory Angel Fuller Facility:[facility] Start: 03-25-2024 End: 03-29-2024 ambulatory SHAHLA LOZADA APRN-AUTOMOTIVE SERVICE ASSISTANT Facility:A Start: 03-22-2024 End: 03-22-2024 Patient encounter procedure Mago COLEMAN -[facility] Work Phone: Start: 03-22-2024 End: 03-22-2024 ambulatory Angel Fuller Facility:[facility] Start: 03-17-[address] ANGEL FULLER MD Facil ity:A Start: 03-17-2024 End: 03-17-[address] ANGEL FULLER MD Facility:A Start: 03-17-2024 End: 03-17-2024 Patient encounter procedure THONG R LAUREN LACE WINDER-AUTOMOTIVE SERVICE ASSISTANT [facility] Start: 03-12-2024 End: 03-13-2024 Emergency department patient visit Dr. Christopher Baker-Nixon JACKSON -Emergency Department Work Phone: Start: 03-06-2024 End: 03-06-2024 Patient encounter procedure Luis Daniel Son HERPETOLOGY TEACHER-C -[facility] Work Phone: Start: 03-06-2024 End: 03-06-2024 ambulatory Angel Fuller Facility:[facility] Start: 03-04-2024 End: 03-07-2024 Telephone encounter Deyanira Mendez LACE WINDER.AUTOMOTIVE SERVICE ASSISTANT Work Phone: Hematology/Oncology Comment on above: Patient Update Start: 02-22-2024 End: 05-13-2024 Telephone encounter Baron Kevin Mammogram Comment on above: disk request Start: 02-19-2024 End: 02-19-[address] Cade Monroy MD -[place] [facility] Work Phone: Start: 02-19-2024 End: 02-19-2024 ambulatory Angel Fuller Facility:[facility] Start: 02-04-2024 End: 02-04-2024 ambulatory PRISCA COX Facility:[facility] Start: 02-04-2024 End: 02-04-2024 Subsequent hospital visit by physician Screen Mammo [facility] Mammogram Comment on above: Encounter for screen ing mammogram for malignant neoplasm of breast [Z12.31] Start: 01-14-2024 End: 01-14-[address] Angel Fuller MD Work Phone: -[facility] Work Phone: Start: 01-14-2024 End: 01-14-2024 ambulatory RAJ TITUS Facility:[facility] Start: 01-13-2024 End: 01-13-2024 Telephone encounter Prisca Cox MD Work Phone: OB/Gynecology Comment on above: Orders Start: 12-08-2023 End: 12-12-[address] ANGEL FULLER MD Facility:A Start: 11-12-2023 End: 11-12-2023 Telephone encounter Christine Gonzalez APRN.AUTOMOTIVE SERVICE ASSISTANT Work Phone: OB/Gynecology Comment on above: Patient Question Start: 09-08-2023 End: 09-08-2023 Patient encounter procedure Prisca Cox MD Work Phone: OB/Gynecology Comment on above: Urinary frequency (P rimary Dx); Frequent UTI Start: 07-29-2023 Telephone encounter Deyanira Cha jose a LYAUTOMOTIVE SERVICE ASSISTANT Work Phone: Hematology/Oncology Comment on above: Appointment Start: 06-24-2023 End: 06-24-[address] Angel Fuller Work Phone: [facility] Work Phone: Start: 06-24-2023 End: 06-24-[address] Angel Fuller Work Phone: [facility]-Pulmonary Services/Neurology Work Phone: Start: 06-17-2023 End: 06-17-[address] Angel Fuller Work Phone: [facility] Work Phone: Start: 06-17-2023 End: 06-17-[address] Angel Fuller Work Phone: [facility]-Cardiovascular Services Work Phone: Start: 06-13-2023 Telephone encounter Christine hazel APRN.AUTOMOTIVE SERVICE ASSISTANT Work Phone: OB/Gynecology Comment on above: Results Start: 06-12-2023 Telephone encounter Christine hazel APRN.AUTOMOTIVE SERVICE ASSISTANT Work Phone: OB/Gynecology Comment on above: Results Start: 06-11-2023 End: 06-11-2023 Patient encounter procedure Christine Gonzalez APRN.AUTOMOTIVE SERVICE ASSISTANT Work Phone: OB/Gynecology Comment on above: Genitourinary syndro me of menopause (Primary Dx); Vaginal irritation; Urinary frequency; Screening for thyroid disorder; Hirsutism Start: 06-10-2023 End: 06-10-[address] Angel Fuller Work Phone: [facility] Work Phone: Start: 05-14-2023 End: 05-14-[address] Angel Fuller Work Phone: [facility] Work Phone: Start: 05-14-2023 End: 05-14-[address] Angel Fuller Work Phone: [facility] Work Phone: Start: 04-09-2023 End: 04-09-[address] Angel Fuller Work Phone: [facility] Work Phone: Start: 03-20-2023 End: 03-20-[address] Angel Fuller Work Phone: [facility] Work Phone: Start: 03-20-2023 End: 03-20-[address] Angel Fuller Work Phone: [facility]-Medical Out Work Phone: Start: 03-09-2023 End: 03-09-[address] Angel Fuller Work Phone: [facility] Work Phone: Start: 02-26-2023 End: 02-27-2023 ambulatory THONG BARCENAS Facility:A Start: 02-25-2023 End: 02-25-[address] Angel Fuller Work Phone: [facility] Work Phone: Start: 02-25-2023 End: 02-25-[address] [facility] Work Phone: Start: 02-24-2023 End: 02-24-[address] Angel Fuller Work Phone: [facility] Work Phone: Start: 02-24-2023 End: 02-24-[address] Angel Fuller Work Phone: [facility]-Laboratory Work Phone: Start: 02-19-2023 End: 02-19-[address] Angel Fuller Work Phone: [facility] Work Phone: Start: 02-04-2023 End: 02-04-[address] Angel Fuller Work Phone: [facility] Work Phone: Start: 02-02-2023 End: 02-02-2023 Subsequent hospital visit by physician Screen Mammo [facility] Mammogram Comment on above: Personal history of malignant neoplasm of breast [Z85.3] Start: 12-17-2022 Telephone encounter Prisca Cox MD Work Phone: OB/Gynecology Comment on above: Appointment Start: 11-21-2022 End: 11-21-2022 ambulatory Deyanira Mendez APRN.AUTOMOTIVE SERVICE ASSISTANT Work Phone: Hematology/Oncology Comment on above: Personal history of malignant neoplasm of breast (Primary Dx); Encounter for screening mammogram for high-risk patient Start: 11-21-2022 End: 11-21-2022 Patient encounter procedure Deyanira Mendez APRN.AUTOMOTIVE SERVICE ASSISTANT Work Phone: [facility] Start: 07-15-2022 End: 07-20-2022 ambulatory ILANA TAVAREZ MD Facility:A Start: 07-03-2022 Telephone encounter Adelaida eckert LACE WINDER.AUTOMOTIVE SERVICE ASSISTANT Work Phone: OB/Gynecology Comment on above: Results Start: 07-01-2022 End: 07-01-2022 Patient encounter procedure Prisca Cox MD Work Phone: OB/Gynecology Comment on above: Hematuria, unspecifi ed type (Primary Dx); Dysuria; Vaginal dryness; Abnormal facial hair; Low grade fever Start: 06-25-2022 End: 06-25-2022 Patient encounter procedure Olga Steinberg LACE WINDER.CNM Work Phone: OB/Gynecology Comment on above: Dysuria (Primary Dx) ; Vaginal burning Start: 05-30-2022 End: 05-31-2022 ambulatory NAHOMI PETERSON LACE WINDER-AUTOMOTIVE SERVICE ASSISTANT Facility:B Start: 05-30-2022 End: 05-30-2022 Patient encounter procedure NAHOMI PETERSON LACE WINDER-AUTOMOTIVE SERVICE ASSISTANT [facility] Start: 05-22-2022 Telephone encounter Irena MIRANDA Hematology/Oncology Comment on above: Social Work Services Start: 05-07-2022 End: 05-07-2022 ambulatory Robert Weber DO Work Phone: Hematology/Oncology Comment on above: Fever, low grade (Pr imary Dx) Start: 05-07-2022 End: 05-07-2022 Patient encounter procedure Robert Weber DO Work Phone: [facility] Start: 05-06-2022 Orders Only Robert Weber D [...] encounter procedure Robert Weber DO Work Phone: [facility] Start: 04-11-2022 Telephone encounter Robert caro DO [...] 04-01-2022 End: 04-01-2022 Patient encounter procedure Robert Weber DO Work Phone: [facility] Start: 03-20-2022 Telephone encounter Deyanira naranjo LACE WINDER.AUTOMOTIVE SERVICE ASSISTANT Work Phone: Hematology/Oncology Comment on above: Appointment Start: 03-18-2022 Telephone encounter Deyanira Cha enter LACE WINDER.AUTOMOTIVE SERVICE ASSISTANT Work Phone: Hematology/Oncology Comment on above: Future Appointment Start: 03-03-2022 End: 03-07-2022 Outreach Lab SHAHLA LOZADA LACE WINDER-AUTOMOTIVE SERVICE ASSISTANT [facility] Start: 02-26-2022 End: 02-26-2022 Patient encounter procedure THONG AGUILAR LACE WINDER-AUTOMOTIVE SERVICE ASSISTANT [facility] Start: 02-25-2022 End: 02-25-2022 Subsequent hospital visit by physician [facility] (I-Stat) Work Phone: Cat Scan Start: 02-21-2022 Non-patient / Non-visit Dr. Gaming Work Phone: [facility] Start: 02-21-2022 End: 02-21-[address] Angel Fuller Work Phone: [facility] Work Phone: Start: 02-21-2022 End: 02-21-[address] Angel Fuller Work Phone: [facility]-Cardiovascular Services Start: 02-19-[address] Angel Fuller Work Phone: [facility]-Medical Out Start: 02-06-2022 End: 02-06-[address] Angel Fuller Work Phone: [facility] Work Phone: Start: 02-06-2022 End: 02-06-[address] Angel Fuller Work Phone: [facility] Start: 02-02-2022 Documentation procedure Mammog mei Coordinator [facility] Start: 02-02-2022 Letter encounter Mammography Coordinator [facility] Start: 01-31-2022 End: 01-31-2022 Subsequent hospital visit by physician Screen Mammo [facility] Mammogram Comment on above: Encounter for screen ing mammogram for malignant neoplasm of breast [Z12.31] Start: 01-23-2022 End: 01-23-2022 Subsequent hospital visit by physician [facility] 1 Work Phone: Radiology Start: 12-26-2021 End: 12-26-2021 Patient encounter procedure Andres Vasquez MD Work Phone: OB/Gynecology Comment on above: Urinary urgency (Alethea lalo Dx); Dysuria Start: 12-26-2021 Telephone encounter Prisca Cox MD Work Phone: OB/Gynecology Comment on above: Patient Question Start: 07-30-2021 End: 07-30-2021 ambulatory Deyanira Mendez LACE WINDER.AUTOMOTIVE SERVICE ASSISTANT Work Phone: Hematology/Oncology Comment on above: 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 Angel Fuller Work Phone: [facility] Start: 07-17-2021 End: 07-17-[address] Angel Fuller Work Phone: [facility] Start: 07-12-2021 End: 07-12-2021 Patient encounter procedure Adriana Vasquez LACE WINDER.AUTOMOTIVE SERVICE ASSISTANT Work Phone: [facility] Comment on above: Discoloration of ski n (Primary Dx) Start: 07-08-2021 End: 07-08-[address] Angel Fuller Work Phone: [facility] Start: 06-26-2021 Telephone encounter Prisca Cox MD Work Phone: OB/Gynecology Comment on above: Patient Question Start: 06-26-2021 End: 06-26-2021 Subsequent hospital visit by physician [facility] ([facility]-Stat) Work Phone: Cat Scan Start: 06-10-2021 End: 06-10-2021 Emergency department patient visit Dr. Angel Fuller Work Phone: [facility]-Emergency Department Start: 06-03-2021 Non-patient / Non-visit Dr. Gaming Work Phone: [facility] Start: 06-03-2021 End: 06-03-[address] Angel Fulelr Work Phone: [facility]-Pulmonary Services/Neurology Start: 06-01-2021 End: 06-01-2021 Patient encounter procedure Adriana Vasquez ELENA.AUTOMOTIVE SERVICE ASSISTANT Work Phone: [facility] Comment on above: Cough (Primary Dx); Suspected COVID-19 virus infection Start: 05-15-2021 End: 05-15-[address] Angel Fuller Work Phone: [facility] [place] Start: 04-01-2021 End: 04-01-[address] Angel Fuller Work Phone: [facility] Start: 02-26-2021 End: 02-26-2021 Patient encounter procedure DONG BARBOSA LACE WINDER-CRANK HAND [facility] Start: 02-19-[address] Angel Fuller Work Phone: [facility]-Medical Out Start: 02-07-2021 End: 02-07-[address] Angel Fuller Work Phone: [facility] Procedures Date Procedure Procedure Detail Performing Clinician Start: 11-21-2024 Radiologic exam knee complete 4/more views Dr. Angel Fuller MD Work Phone: Start: 09-05-2024 X-ray of knee, four or more views Dr. Angel Fuller MD Work Phone: Start: 08-13-[address] Angel Fuller MD Work Phone: Start: 06-30-2024 Antibody to lupus La protein measurement Dr. Angel Fuller MD Work Phone: Comment on above: Performed at: [place] [id number] Director: Dannie Meza PhD, Phone: [phone] Start: 06-30-2024 Antibody to SS-A measurement Dr. [...] Work Phone: Comment on above: Performed at: [facility] [place], [place] [id number] Director: Dannie Meza PhD, Phone: [phone] Start: 04-04-2024 Antibody to centrome re measurement [...] Comment on above: GFR Calc Start: 04-04-2024 DETENTION DEPUTY antibody measurement Dr. Angel Fuller MD Work [...] Work Phone: Start: 06-11-2023 BACTERIAL VAGINOSIS NAAT Christine Gonzalez LACE WINDER.AUTOMOTIVE SERVICE ASSISTANT Work Phone: Start: 06-11-2023 Iadna trichomonas vaginalis amplified probe tech Christine Gonzalez LACE WINDER.AUTOMOTIVE SERVICE ASSISTANT Work Phone: Start: 06-11-2023 Urnls dip stick/tabl et rgnt auto w/o microscopy Christine Gonzalez LACE WINDER.AUTOMOTIVE SERVICE ASSISTANT Work Phone: Start: 06-02-2023 Lipid 1996 panel - S ariella or Plasma Christine Gonzalez LACE WINDER.AUTOMOTIVE SERVICE ASSISTANT Work Phone: Start: 05-14-2023 MRI of thoracic spine Joe Fuller Work Phone: Start: 02-25-2023 MRI of cervical spine Joe Fuller Work Phone: Start: 02-04-2023 X-ray of cervical spine Dr. Angel Fuller Work Phone: Start: 11-17-2022 Lipid 1996 panel - S ariella or Plasma Deyanira Mendez LACE WINDER.AUTOMOTIVE SERVICE ASSISTANT Work Phone: Start: 07-01-2022 Urnls dip stick/tabl et reagent auto microscopy Prisca Cox MD Work Phone: Start: 06-25-2022 Urnls dip stick/tabl et rgnt auto w/o microscopy Olga Steinberg LACE WINDER.CNM Work Phone: Start: 05-07-2022 Diagnostic bone ramírez ow biopsies & aspirations Robert Weber DO Work Phone: Start: 04-03-2022 Bone &/joint imaging whole body Robert Leungmichael JACKSON Work Phone: Start: 02-25-2022 Ct thorax w/contrast [...] Start: 07-08-2021 X-ray of cervical spine Dr. Angel Fuller Work Phone: Start: 06-26-2021 Ct thorax w/contrast material [facility] Provider Start: 06-10-2021 Plain chest X-ray Dr. Aura Fuller Work Phone: Start: 12-26-2020 Mammography Adriana Vasquez APRN.AUTOMOTIVE SERVICE ASSISTANT Work Phone: Start: 07-12-2018 Adult depression screening assessment Adriana Vasquez APRN.AUTOMOTIVE SERVICE ASSISTANT Work Phone: Start: 02-23-2014 Cataract extraction and insertion of intraocular lens GIUSTINA BRECHBILL LACE WINDER-CRANK HAND Comment on above: bilateral Start: 02-23-1978 Hysterectomy and bilateral salpingo-oophorectomy sample (specimen) GIUSTINA BRECHBILL LACE WINDER-CRANK HAND Start: 02-23-1967 Lumpectomy of breast GI USTINA BRECHBILL LACE WINDER-CRANK HAND Comment on above: right Colonoscopy GIUSTINA BRECHB ILL LACE WINDER-CRANK HAND Endoscopy GIUSTINA BRECHB ILL LACE WINDERCobra StyletCRANK HAND History of radiation therapy Personal history of radiation therapy( Confirmed ) DONG BARBOSA LACE WINDER-CRANK HAND Plan of Treatment Date Care Activity Detail Author Start: 08-17-2033 Urine microalbumin profile DTaP,Tdap,Td Vaccine (2 - Td or Tdap) [facility] Start: 06-01-2028 Lipid panel Lipid Screening [facility] Start: 11-18-2027 Lipid 1996 panel - Serum or Plasma Lipid Screening [facility] Start: 11-18-2027 Lipid panel Lipid Screening [facility] Start: 06-15-2027 Diabetes Screening Diabetes Screenin g [facility] Start: 06-01-2026 Diabetes Screening Diabetes Screenhi g [facility] Start: 11-17-2025 Diabetes Screening Diabetes Screenhi g [facility] Start: 02-25-2025 DIABETES SCREEN DIABETES SCREEN [facility] Start: 11-23-2024 End: 11-23-2024 Patient encounter procedure Osteoarthritis of right knee -[facility] Work Phone: Start: 11-21-2024 [facility] Start: 11-21-2024 Radiologic exam knee complete 4/more views Knee 4 or More Views [facility] Start: 11-21-2024 End: 11-21-2024 Emergency department patient visit Departed Emergency -Emergency Department Work Phone: Start: 10-24-2024 Influenza vaccination Influenz a Vaccine (Season Ended) [facility] Start: 09-05-2024 X-ray of knee, four or more views Knee 4 or More Views [facility] Start: 09-05-2024 XR Knee GE 4 Views [facility] Start: 08-13-2024 [facility] Start: 07-12-2024 End: 07-12-2024 Patient encounter procedure 07/12/2024 11:00 AM EDT Office Visit Vascular Surgery [place] [address] Karie Meyer, DO [address] [place] [address] vein concerns Vascular Surgery Comment on above: vein concerns Start: 06-30-2024 Thiamine measurement [facility] Start: 06-24-2024 Patient referral [facility] Work Phone: Start: 04-19-2024 [facility] Start: 04-18-2024 [facility] Start: 04-13-2024 [facility] Start: 04-12-2024 Respiratory secretio n precautions [facility] Start: 04-05-2024 Iv infusion therapy/prophylaxis /dx 1st to 1 hr THER/PROPH/DIAG IV INF INIT [facility] Start: 03-13-2024 End: 03-13-2024 [facility] Start: 02-24-2024 Advance Directive Discussion Advance Directive Discussion [facility] Start: 02-04-2024 End: 02-04-2024 Patient encounter procedure 02/04/2024 10:50 AM EST Appointment Mammogram [address] [place] [address] Mic screening prev here Mammogram Comment on above: Mic screening prev here Start: 12-15-2023 End: 12-15-2023 ambulatory 12/15/2023 10:00 AM EDT OT/PT/Speech Visit [facility] [address] [place] [address] MODIFIED BARIUM SWALLOW [facility] Comment on above: MODIFIED BARIUM SWAL LOW Start: 12-15-2023 End: 12-15-2023 Patient encounter procedure 12/15/2023 10:00 AM EDT [facility]ment [facility] [address] [address] MODIFIED BARIUM SWALLOW [facility]/ [facility] Comment on above: MODIFIED BARIUM SWAL LOW Start: 10-25-2023 Covid-19 Vaccine ( season) Covid-19 Vaccine ( season) [facility] Start: 10-25-2023 Covid-19 Vaccine ( season) Covid-19 Vaccine ( season) [facility] Start: 10-25-2023 Influenza vaccination [facility] Start: 03-20-2023 Iv infusion therapy/prophylaxis /dx 1st to 1 hr [facility] Start: 2023 RSV Vaccine (1 - 1-d ose 75+ series) RSV Vaccine (1 - 1-dose 75+ series) [facility] Start: 02-23-2023 Advance Directive Discussion Advance Directive Discussion [facility] Start: 02-23-2023 Behavioral Health Screening Behavioral Health Screening [facility] Start: 01-31-2023 Mammography [facility] Start: 01-31-2023 Screening for malign ant neoplasm of breast Mammogram Screening [facility] Start: 10-24-2022 Covid-19 Vaccine () Covid-19 Vaccine () [facility] Start: 10-24-2022 Influenza vaccination [facility] Start: 05-07-2022 End: 07-07-2022 CBC W Auto Differential panel - Blood CBC + DIFF Lab STAT Malignant neoplasm of upper-inner quadrant of right breast in female, estrogen receptor positive (HCC) Expected: 05/07/2022, Expires: 07/07/[address] [facility] Work Phone: Comment on above: Expected: 05/07/2022 , Expires: 07/07/2022 Start: 02-23-2022 ADVANCE DIRECTIVE DISCUSSION ADVANCE DIRECTIVE DISCUSSION [facility] Start: 02-23-2022 [facility]PRESSION [facility]MENT [facility] Start: 12-26-2021 Mammography MAMMOGRAM [facility] Start: 10-24-2021 Influenza vaccination C [facility] Start: 06-01-2021 End: 06-15-2021 Influenza virus A and B RNA and SARS-CoV-2 (COVID-19) N gene panel - Respiratory specimen by JONATHAN with probe detection COVID WITH FLUA+B, ROUTINE Microbiology Routine Cough Suspected COVID-19 virus infection Expected: 06/01/2021, Expires: 06/15/[address] [facility] Work Phone: Comment on above: Expected: 06/01/2021 , Expires: 06/15/2021 Start: 02-23-2021 ADVANCE DIRECTIVE DISCUSSION ADVANCE DIRECTIVE DISCUSSION [facility] Start: 02-23-2021 [facility]MENT [facility] Start: 02-19-2021 Iv infusion therapy/prophylaxis /dx 1st to 1 hr [facility] Start: 02-11-2021 DIABETES SCREEN DIABETES SCREEN [facility] Start: 07-13-2019 Adult depression screening assessment DEPRESSION SCREENING [facility] Start: 2013 Pneumococcal Vaccine : 65+ (1 - PCV) Pneumococcal Vaccine: 65+ (1 - PCV) [facility] Start: 2013 Pneumococcal Vaccine : 65+ (1 of 1 - PCV) Pneumococcal Vaccine: 65+ (1 of 1 - PCV) [facility] Start: 2013 PNEUMOCOCCAL: 65+ (1 - PCV) PNEUMOCOCCAL: 65+ (1 - PCV) [facility] Start: 2013 PNEUMOVAX AGE 65 AND OVER WITH 5YR LOOKBACK (#1) PNEUMOVAX AGE 65 AND OVER WITH 5YR LOOKBACK (#1) [facility] Start: 02-23-2013 Medicare Annual Wellness Visit Medicare Annual Wellness Visit [facility] Start: 04-10-2010 Shingrix Vaccine (2 of 3) Shingrix Vaccine (2 of 3) [facility] Start: 2008 RSV Vaccine (1 - 1-d ose 60+ series) RSV Vaccine (1 - 1-dose 60+ series) [facility] Start: 1998 Pneumococcal Vaccine : 50+ (1 of 1 - PCV) Pneumococcal Vaccine: 50+ (1 of 1 - PCV) [facility] Start: 1998 SHINGRIX VACCINE (1 of 2) SHINGRIX VACCINE (1 of 2) [facility] Start: 1993 COLOGUARD (FIT-DNA) COLOGUARD (FIT-D NA) [facility] Start: 1993 Colonoscopy COLONOSCOPY [facility] Start: 1993 COLORECTAL CANCER SCREENING COLORECTAL CANCER SCREENING [facility] Start: [address] COLONOGRAPHY [facility] Start: 1993 FECAL OCCULT BLOOD FECAL OCCULT BLOO D [facility] Start: 1993 LIPID SCREEN LIPID SCREEN [facility] Start: 1993 Screening for malign ant neoplasm of colon [facility] Start: 1993 SIGMOIDOSCOPY SIGMOIDOSCOPY [facility] Start: 1967 SHINGRIX VACCINE (1 of 2) SHINGRIX VACCINE (1 of 2) [facility] Start: 1967 Urine microalbumin profile [facility] Start: 1966 Anxiety Screening Anxiety Screening [facility] Start: 1966 Depression Screening Depression Scre ening [facility] Start: 1966 HEPATITIS C SCREENING HEPATITIS C [facility] Start: 1966 Hepatitis C screening Hepatitis C [facility] Start: 1954 PNEUMOCOCCAL: 65+ (1 - PCV) PNEUMOCOCCAL: 65+ (1 - PCV) [facility] Start: 1953 COVID-19 VACCINE (#1) COVID-19 VACCI NE (#1) [facility] Start: 1953 COVID-19 VACCINE (1) COVID-19 VACCIN E (1) [facility] Start: 1948 COVID-19 VACCINE (#1) COVID-19 VACCI NE (#1) [facility] 24 Hour ECG [facility] Bacteria identified in Urine by Culture URINE CULTURE Microbiology Routine Urinary urgency 12/26/2021 4:24 PM EDT [facility] Work Phone: Bacteria identified in Urine by Culture URINE CULTURE Microbiology Routine Dysuria 06/25/2022 10:44 AM [facility] Work Phone: Bacteria identified in Urine by Culture URINE CULTURE Microbiology Routine Hematuria, unspecified type 07/01/2022 4:14 PM [facility] Work Phone: Bacteria identified in Urine by Culture URINE CULTURE Microbiology Routine Urinary frequency 06/11/2023 11:37 AM T [facility] Work Phone: Bacteria identified in Urine by Culture URINE CULTURE Microbiology Routine Urinary frequency 09/08/2023 11:59 AM [facility] Work Phone: End: 05-01-2023 Bone &/joint imaging whole body NM BONE WHOLE BODY Radiology Routine Fever, unspecified fever cause Malignant neoplasm of upper-inner quadrant of right breast in female, 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, estrogen and progesterone receptor positive (HCC) Bone pain 1 Occurrences starting 04/01/2022 until 05/01/[address] [facility] Work Phone: Comment on above: 1 Occurrences starti ng 04/01/2022 until 05/01/2023 BONE MARROW ANALYSIS BONE MARROW ANALYSIS Lab Routine Fever, low grade 05/07/2022 2:26 PM [address]T [facility] Work Phone: BONE MARROW CHROMOSO ME ANAL BONE MARROW CHROMOSOME ANAL Lab Routine Fever, low grade 05/07/2022 2:26 PM EDT [facility] Work Phone: End: 02-11-2025 DBT Breast - bilateral screening DESIREE SCREENING W MIC Radiology Routine Encounter for screening mammogram for malignant neoplasm of breast 1 Occurrences starting 01/13/2024 until 02/11/[address] [facility] Work Phone: Comment on above: 1 Occurrences starti ng 01/13/2024 until 02/11/2025 DBT Breast - bilater al screening DESIREE SCREENING W MIC Radiology Routine Encounter for screening mammogram for malignant neoplasm of breast 02/04/2024 11:01 AM EST [facility] Work Phone: DNA EXTRACTION BONE MARROW (BUFFY COAT) DNA EXTRACTION BONE MARROW (BUFFY COAT) Lab Routine Fever, low grade 05/07/2022 2:26 PM EDT [facility] Work Phone: Ferritin [Mass/volum e] in Serum or Plasma [facility] FLOW CYTOMETRY BONE MARROW HOLD (BMHOLD) FLOW CYTOMETRY BONE MARROW HOLD (BMHOLD) Lab Routine Fever, low grade 05/07/2022 2:26 PM EDT [facility] Work Phone: Folic [facility] Iron [Mass/mass] in Unspecified specimen [facility] Magnesium measurement [facility] End: 12-21-2023 DESIREE SCREENING W MIC DESIREE SCREENING W MIC Radiology Routine Personal history of malignant neoplasm of breast Encounter for screening mammogram for high-risk patient 1 Occurrences starting 11/21/2022 until 12/21/[address] [facility] Work Phone: Comment on above: 1 Occurrences starti ng 11/21/2022 until 12/21/2023 DESIREE SCREENING W MIC DESIREE SCREENI NG W MIC Radiology Routine Personal history of malignant neoplasm of breast Encounter for screening mammogram for high-risk patient 02/02/2023 11:51 AM EST [facility] Work Phone: Microscopic observat ion [Identifier] in Vaginal fluid by Gram stain BACT/ANAID VAG GRAM STAIN Microbiology Routine Vaginal burning 06/25/2022 2:36 PM EDT [facility] Work Phone: Patient Education [facility] Work Phone: Patient referral [facility] Work Phone: Rheumatoid factor [Presence] in Serum [facility] T4 free measurement [facility] Thiamine measurement [facility] Thyroid stimulating hormone measurement [facility] End: 04-01-2023 US LEG VEIN DVT [facility] US LEG VEIN DVT [facility] Vascular Lab Routine Fever, unspecified fever cause Leg swelling 1 Occurrences starting 04/01/2022 until 04/01/[address] [facility] Work Phone: Comment on above: 1 Occurrences starti ng 04/01/2022 until 04/01/2023 Vitamin B12 measurement [facility] Immunizations Immunization Date Immunization Notes Care Provider [facility] tetanus toxoid, redu darion diphtheria toxoid, and acellular pertussis vaccine, adsorbed Dr. Angel Fuller MD Work Phone: [facility] Payers Date Payer Category Payer Medicare PLAN F 2024 Self-pay [id number] 2023 Unknown [id number] 2013 Medicare MEDICARE MEDICAR E A AND B [id number] 2013-Present [phone] [place] [address] Medicare [id number] .[id number] 2013 Medicare [id number] 1.13.159.2 .7.3.274219.315 2013 Private Health Insurance 1.2 .840.451495.1.13.159.2 .7.9.765142.55004.315 2013 Unknown [place] [employer] M LULY WHALEY MEDICARE SUPPLEMENT [id number] 2013-Present [phone] [address] [place] [address] Indemnity [id number] 1.2.840.517061.1.13.159.2 .7.3.087167.315 2013 Unknown 1.2.840.000122. 1.13.159.2 .7.3.689884.315 2013 Medicare [id number] 2013 Unknown [id number] 1948 Unknown [id number] 2.840.1.357762.3.579.2 1948 Unknown [id number] 2.840.1.403747.3.579.2 1948 Unknown [id number] 2.840.1.879449.3.579.2 1948 Unknown [id number] 2.16840.1.308168.3.579.2 1948 Unknown [id number] 2.16840.1.575359.3.579.2 1948 Unknown [id number] 2.16840.1.445180.3.579.2 1948 Unknown [id number] 2.16840.1.860131.3.579.2 .627 1948 Unknown [id number] 2.16.840.1.473035.3.579.2 .627 1948 Unknown [id number] 2.16.840.1.998047.3.579.2 .627 1948 Unknown [id number] 2.16.840.1.980265.3.579.2 .627 1948 Unknown [id number] 2.16.840.1.291465.3.579.2 .627 Unknown [id number] 2.16.840.1.821423.3.579.2 .462 Unknown [id number] 2.16840.1.265253.3.579.2 .462 Unknown [id number] 2.16840.1.903575.3.579.2 .462 Unknown [id number] 2.16840.1.295631.3.579.2 .462 Unknown [id number] 2.16840.1.414680.3.579.2 .462 Unknown [id number] 2.16840.1.028978.3.579.2 .462 Unknown [id number] 2.16840.1.189022.3.579.2 .462 Unknown [id number] 2.16840.1.975686.3.579.2 .462 Unknown [id number] 2.16840.1.876942.3.579.2 .462 Unknown [id number] 2.16.840.1.945649.3.579.2 .462 Unknown [id number] 2.16.840.1.749061.3.579.2 .462 Unknown [id number] 2.16.840.1.341064.3.579.2 .462 Unknown [id number] 2.16.840.1.408617.3.579.2 .462 Unknown [id number] 2.16.840.1.379361.3.579.2 .462 Unknown [id number] 2.16.840.1.390555.3.579.2 .462 Unknown [id number] 2.16.840.1.430388.3.579.2 .462 Unknown [id number] 2.16.840.1.572758.3.579.2 .462 Unknown [id number] 2.16840.1.169611.3.579.2 .462 Unknown [id number] 2.16840.1.847704.3.579.2 .462 Unknown [id number] 2.840.1.131061.3.579.2 .462 Unknown [id number] 2.16840.1.382730.3.579.2 .462 Unknown [id number] 2.840.1.080414.3.579.2 .462 Unknown [id number] 2.840.1.136436.3.579.2 .462 Unknown [id number] 2.840.1.184699.3.579.2 .462 Unknown [id number] 2.840.1.904843.3.579.2 .462 Unknown [id number] 2.16840.1.172822.3.579.2 .462 Unknown [id number] 2.840.1.519148.3.579.2 .462 Unknown [id number] 2.16840.1.202057.3.579.2 .462 Unknown [id number] 2.16840.1.437997.3.579.2 .462 Unknown [id number] 2.16840.1.542336.3.579.2 .462 Unknown [id number] 2.16.840.1.572654.3.579.2 .462 Unknown [id number] 2.16840.1.750133.3.579.2 .462 Unknown [id number] 2.16.840.1.028493.3.579.2 .462 Unknown [id number] 2.16.840.1.318436.3.579.2 .462 Unknown [id number] 2.16.840.1.090112.3.579.2 .462 Unknown [id number] 2.16.840.1.429468.3.579.2 .462 Unknown [id number] 2.16.840.1.798448.3.579.2 .462 Unknown [id number] 2.16.840.1.265673.3.579.2 .462 Unknown [id number] 2.16.840.1.796936.3.579.2 .462 Unknown [id number] 2.16.840.1.144811.3.579.2 .462 Unknown [id number] 2.16.840.1.144997.3.579.2 .462 Unknown [id number] 2.16.840.1.002066.3.579.2 .462 Unknown [id number] 2.16.840.1.766943.3.579.2 .462 Unknown [id number] 2.16.840.1.858004.3.579.2 .462 Unknown [id number] 2.16.840.1.962132.3.579.2 .462 Unknown [id number] 2.16.840.1.113961.3.579.2 .462 Social History Date Type Detail Facility Tobacco Tobacco Use: Denies. [facility] Start: 08-15-2011 End: 11-21-2024 Never smoked tobacco (finding) [facility] Start: 1950 Sex Assigned At Female [facility] Start: 05-15-2021 End: 06-10-2023 Tobacco smoking status HIIS Unknown if ever smoked [facility] Start: 08-15-2011 End: 12-26-2021 Tobacco use and exposure Smokeless tobacco non-user [facility] Start: 06-01-2021 End: 11-21-2022 Alcohol intake Current non-drinker of alcohol (finding) [facility] Start: 05-22-2021 End: 07-30-2021 Exposure to SARS-CoV-2 (event) Not sure [facility] Work Phone: Start: 06-25-2022 End: 11-21-2022 History of Social function [facility] Start: 06-25-2022 End: 11-21-2022 Tobacco use panel [facility] Adult Depression Screening Assessment 2 [facility] Start: 11-02-2018 Gender identity Identifies as female gender (finding) [facility] Start: 07-28-2021 Sexual orientation Heterosexual (fin ding) [facility] Start: 06-11-2023 End: 07-12-2024 Alcohol intake Ex-drinker (finding) [facility] Start: 07-07-2019 End: 05-23-2024 Sex Female (finding) [facility] Goals Date Patient Goal Desired Activity /State Personal health goal Functional Status Date Assessment Result Facility 05-11-2014 Are you deaf, or do you have serious difficulty hearing No 05/11/2014 6:15 PM Melissa Alexander LPN No [facility] 05-11-2014 Are you blind, or do you have serious difficulty seeing, even when wearing glasses No 05/11/2014 6:15 PM Melissa Alexander LPN No [facility] 05-11-2014 Do you have serious difficulty walking or climbing stairs Yes 05/11/2014 6:15 PM Melissa Alexander LPN Yes [facility] 05-11-2014 Do you have difficul ty dressing or bathing Yes 05/11/2014 6:15 PM Melissa Alexander LPN Yes [facility] 05-11-2014 Because of a physica l, mental, or emotional condition, do you have difficulty doing errands alone such as visiting a physician's office or shopping No 05/11/2014 6:15 PM Melissa Alexander LPN No [facility] Mental Status Date Assessment Result Facility 08-13-2024 Cognitive function Level Of Cons ciousness Awake;Alert;Appropriate;Fol lows Commands [facility] Work Phone: 04-18-2024 Cognitive function Level Of Cons ciousness Awake;Alert;Appropriate;Fol lows Commands [facility] Work Phone: 04-12-2024 Cognitive function Level Of Cons ciousness Awake;Alert;Appropriate;Fol lows Commands [facility] Work Phone: 04-05-2024 Cognitive function Voice/Name [facility] Work Phone: 03-20-2023 Cognitive function Awake;Alert;A ppropriate;Fol lows Commands [facility] Work Phone: 02-19-2022 Cognitive function Level Of Cons ciousness Awake;Alert;Appropriate;Fol lows Commands [facility] Work Phone: 06-10-2021 Cognitive function Level Of Cons ciousness Awake;Alert;Appropriate;Fol lows Commands [facility] Work Phone: 02-19-2021 Cognitive function Level Of Cons ciousness Awake;Alert;Appropriate;Fol lows Commands [facility] Work Phone: 05-11-2014 Because of a physica l, mental, or emotional condition, do you have serious difficulty concentrating, remembering, or making decisions No 05/11/2014 6:15 PM EDT Melissa Cobb LPN No [facility] Clinical Notes 06-01-2021 to 11-23-2024 Note Date & Type Note Facility 11-23-2024 Progress note [facility] 11-21-2024 Discharge summary [facility] 11-21-2024 Radiology Diagnostic study note [facility] Imaging Services [address] [place], [place] [address] Knee 4 or More Views MR#: [id number] Acct: [id number] Name: KELLI MONROY Rep #: [id number] : 1950 F 74 From: Salome Malin MD PCP: Dr. Angel Fuller MD Status: REG ER Study:Knee 4 or More Views Date of Exam: 11/21/24 Exam# [id number] Ordering Dr: Jefry Mir DO PROCEDURE: KNEE 4 OR MORE VIEWS 11/21/2024 REASON FOR EXAM: INJURY/PAIN TECHNIQUE: Procedure Code: RADKN Modality: DX Procedure: KNEE 4 OR MORE VIEWS Laterality: Right COMPARISON: September 05, 2024 FINDINGS: Bones: No fracture. Joints: Severe joint space narrowing medial compartment with marginal endplate spurring. [id number]-gf-[id number] joint space narrowing and spurring mainly at the medial facet of the patellofemoral joint. Effusion: Small suprapatellar joint effusion. Soft tissues: Mild atherosclerotic changes. RAD/Knee 4 or More Views IMPRESSION: Degenerative change greatest at the medial and patellofemoral compartments. Small joint effusion. Reading Location: [id number] CC: Dr. Jefry Mir DO; Dr. Angel Fuller MD ~ Senior Investment Manager: Signed [facility] 11-10-2024 Progress note [facility] 11-10-2024 Progress note Note Date/Time November 10, 2024 2:02pm [facility] [address] [place] [address], [address] [place] [address] OFFICE VISIT Date of Service: 11/10/24 MR#: [id number] Acct: [id number] Name: KELLI MONROY Rep #: [id number] : 1950 Provider: Dr. Gabi Mckeon MD Age/Sex: 74/F Location: [facility] Status: Signed [facility] HPI Chief Complaint: Details: Interim History: Kelli returns for follow-up visit. She has a history of hypertension, mitralvalve prolapse, hyperlipidemia, right breast cancer s/p lumpectomy, brief chemotherapy, and radiation therapy, and thyroid nodules. In 2021, she began tohave episodes of low-grade fevers with temperature reaching 100.5 ?F and she hascontinued to have body temperature intermittently reaching this degree. She sawan infectious disease specialist and the patient stated that a workup was unremarkable (an official report is presently not available). She has chronic neck pain, upper back pain and low back pain. She has been seeing a chiropractor and had been receiving multiple days of adjustments weekly. She does not feel that chiropractic therapy provided sustained relief and she reduced the frequency of her chiropractic treatments. She has osteoarthritis and osteoporosis. She receives Reclast injections. In 2022, she was treated with multiple supplements and during this time she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 Monroyigner Signature: Date (if applicable) CC: ~ [facility]06-06-2025 Evaluation note* Diagnosis Onset Date Resolution Status Admit Date Osteoarthritis of right knee acute July 29, 2024 11:07am Fatigue acute August 15 9:40am Anemia acute August 30, 2024 10:57am Arthritis acute August 30, 2024 10:57am Burning mouth syndrome acute 2024 10:57am Fatigue acute August 30, 2024 10:57am Fibromyalgia acute August 30 10:57am Polyneuropathy acute August 30, 2024 10:57am Fibromyalgia acute September 05, 025 3:45pm Osteoarthritis of right knee acute September 05, 2024 3:45pm Polyneuropathy acute September 05, 2024 3:45pm Fibromyalgia acute September 07, 025 8:10am Osteoarthritis of right knee acute September 07, 2024 8:10am Polyneuropathy acute September 07, 2024 8:10am Fatigue acute September 15 9:59am Fatigue acute October 17 8:23am Osteoarthritis of right knee acute October 31, 2024 10:56am Arthritis acute October 12:59pm Burning mouth syndrome acute Se pt2024 12:59pm Fatigue acute October 12:59pm Fibromyalgia acute November 102024 12:59pm Polyneuropathy acute November 10, 2024 12:59pm Fatigue acute October 8:50am [facility] Work Phone: 1(406) 913-333406-06-2025 Evaluation note* Diagnosis Onset Date Resolution Status Admit Date Osteoarthritis of right knee acute July 29, 2024 11:07am Fatigue acute August 15 9:40am Anemia acute August 30, 2024 10:57am Arthritis acute August 30, 2024 10:57am Burning mouth syndrome acute 2024 10:57am Fatigue acute August 30, 2024 10:57am Fibromyalgia acute August 30 10:57am Polyneuropathy acute August 30, 2024 10:57am Fibromyalgia acute September 05, 3:45pm Osteoarthritis of right knee acute September 05, 2024 3:45pm Polyneuropathy acute September 05, 2024 3:45pm Fibromyalgia acute September 07 8:10am Osteoarthritis of right knee acute September 07, 2024 8:10am Polyneuropathy acute September 07, 2024 8:10am Fatigue acute September 15 9:59am Fatigue acute October 17 8:23am Osteoarthritis of right knee acute October 31, 2024 10:56am Arthritis acute October 12:59pm Burning mouth syndrome acute 2024 12:59pm Fatigue acute October 12:59pm Fibromyalgia acute November 102024 12:59pm Polyneuropathy acute November 10, 2024 12:59pm Fatigue acute October 8:50am Osteoarthritis of right knee acute November 23, 2024 10:24am [facility] Work Phone: 1(325) 946-233206-06-2025 Progress [facility] [address] [place] [id number] OFFICE VISIT Date of Service: 07/29/24 MR#: [id number] Acct: [id number] Name: KELLI MONROY Rep #: [id number] : 1950 Provider: Dr. Nato Moore, DO Age/Sex: 74/F Location: [email or web address] Status: Signed Intake Vital Signs 06/30/24 11:27 [...] 1,000 mg PO BID PRN Pain 0 4/17/24 06/06/25 History (Tylenol Extra Strength) cholecalciferol (vitamin D3) 1,250 1,250 mcg PO QWEEK #4 caps 04/05/24 07/29/24 Rx mcg (50,000 unit) capsule cyanocobalamin (vitamin B-12) 100 mcg subcut QMONTH 07/29/24 History 1,000 mcg/mL injection solution Have you fallen in the past year?: Yes (Fainted at doctor's office ) [facility] Medical History Episode of syncope Influenza B Acute pharyngitis Burn of right upper extremity Atherosclerosis of coronary artery of [place] heart without angina pectoris Fibromyalgia Menopausal hot [...] Posterior Drawer, NML: Varus0 and NML: Varus 30and 1+: Valgus 0 (Due to medial joint [...] the injection well without any noted complication. Patientshould call our office if redness develops, pain worsens or if they have any concerns. Is this Buy & Bill?: Yes Office Meds Euflexxa 10 mg/mL (mw 2.4-3.6 million) intra-articular syringe Performing Provider: Jeovanny Moore DO Performing Location: [facility] Administered by: Jeovanny Moore DO on 07/29/24 11:19 Dose Route Admin Location Dispensed Lot Number Expiration Date [facility] Operating Table Assembler 20 mg intra-articular Right Knee 2 mL [id number] 06/27/25 [address]-7 [employer] Supplemental Info 08/13/2023 x-ray right knee on disc from [facility] moderate medial joint space narrowing severe [...] (Fainted at doctor's office ) 07/29/24 1127 o DO> Date _ Jeovanny Oscar DO Cosigner Signature: Date (if applicable) CC: ~ [facility]05-30-2025 Evaluation note* Diagnosis Onset Date Resolution Status Admit Date Osteoarthritis of right knee acute July 22, 2024 11:12am Osteoarthritis of right knee acute July 29, 2024 11:07am Fatigue acute August 15 9:40am Anemia acute August 30, 2024 10:57am Arthritis acute August 30, 2024 10:57am Burning mouth syndrome acute 2024 10:57am Fatigue acute August 30, 2024 10:57am Fibromyalgia acute August 30 10:57am Polyneuropathy acute August 30, 2024 10:57am Fibromyalgia acute September 05 3:45pm Osteoarthritis of right knee acute September 05, 2024 3:45pm Polyneuropathy acute September 05, 2024 3:45pm Fibromyalgia acute September 07 025 8:10am Osteoarthritis of right knee acute September 07, 2024 8:10am Polyneuropathy acute September 07, 2024 8:10am Fatigue acute September 15 9:59am Fatigue acute October 17 025 8:23am Osteoarthritis of right knee acute October 31, 2024 10:56am Arthritis acute October 12:59pm Burning mouth syndrome acute Se pt2024 12:59pm Fatigue acute October 12:59pm Fibromyalgia acute November 102024 12:59pm Polyneuropathy acute November 10, 2024 12:59pm [facility] Work Phone: 1(116) 656-760805-21-2025 Evaluation note* Diagnosis Onset Date Resolution Status Admit Date Osteoarthritis of right knee acute July 13, 2024 10:27am Fatigue acute July 14, 2024 10:38am Osteoarthritis of right knee acute July 22, 2024 11:12am Osteoarthritis of right knee acute July 29, 2024 11:07am Fatigue acute August 15 9:40am Anemia acute August 30, 2024 10:57am Arthritis acute August 30, 2024 10:57am Burning mouth syndrome acute 2024 10:57am Fatigue acute August 30, 2024 10:57am Fibromyalgia acute August 30 10:57am Polyneuropathy acute August 30, 2024 10:57am Fibromyalgia acute September 05, 025 3:45pm Osteoarthritis of right knee acute September 05, 2024 3:45pm Polyneuropathy acute September 05, 2024 3:45pm Fibromyalgia acute September 07, 025 8:10am Osteoarthritis of right knee acute September 07, 2024 8:10am Polyneuropathy acute September 07, 2024 8:10am Fatigue acute September 15 9:59am Fatigue acute October 17 025 8:23am [place] [employer] Work Phone: 1(199) 313-482805-20-2025 NoteHNO ID: [id number] Author: KARIE MEYER, DO Service: ? Author Type: Physician Type: Progress Notes Filed: 08/04/2024 11:41 Note Text: [facility] DEPARTMENT OF VASCULAR SURGERY OUTPATIENT VISIT DATE [...] 5 mg/100 mL pgbk PREMIX piggyback Zoledronic Wwqh-Gzbsqfyc-Lgpqv Active 1 EACH .Route ONCE 100 February [...] visit. General: Alert, oriented, (more content not included)...[facility]05-20-2025 History of Present illness Narrative* Karie Meyer, - 07/12/2024 11:09 AM EDT Images from the original note were not included. [facility] DEPARTMENT OF VASCULAR SURGERY OUTPATIENT VISIT DATE [...] or prior problems. Relieving factors include support hosewith mild improvement in symptoms. Patient denies DVT, [...] 5 mg/100 mL pgbk PREMIX piggyback Zoledronic Cosx-Brznqwzy-Tfooh Active 1EACH .Route ONCE 100 February 07, [...] 2024 TIME: 11:09 AM documented in this encounterC[facility]05-02-2025 Evaluation note* Diagnosis Onset Date Resolution Status Admit Date Osteoarthritis of right knee acute June 24, 2024 9:26am Arthritis acute June 30, 2024 11:27am Burning mouth syndrome acute 2024 11:27am Dry mouth acute June 30, 2024 11:27am Fatigue acute June 30, 2024 11:27am Fibromyalgia acute June 30 11:27am Neck pain acute June 30, 2024 11:27am Polyneuropathy acute June 30 11:27am Osteoarthritis of right knee acute July 13, 2024 10:27am Fatigue acute July 14, 2024 10:38am Osteoarthritis of right knee acute July 22, 2024 11:12am Osteoarthritis of right knee acute July 29, 2024 11:07am Fatigue acute August 15 9:40am Anemia acute August 30, 2024 10:57am Arthritis acute August 30, 2024 10:57am Burning mouth syndrome acute Ju 2024 10:57am Fatigue acute August 30, 2024 10:57am Fibromyalgia acute August 30 10:57am Polyneuropathy acute August 30, 2024 10:57am Fibromyalgia acute September 05, 025 3:45pm Osteoarthritis of right knee acute September 05, 2024 3:45pm Polyneuropathy acute September 05, 2024 3:45pm Fibromyalgia acute September 07, 025 8:10am Osteoarthritis of right knee acute September 07, 2024 8:10am Polyneuropathy acute September 07, 2024 8:10am Fatigue acute September 15 9:59am Fatigue acute October 17, 025 8:23am [facility] Work Phone: 1([phone]) 723-572504-17-2025 Evaluation note* Diagnosis Onset Date Resolution Status Admit Date Fatigue acute June 09 1:06pm Osteoarthritis of right knee acute June 24, 2024 9:26am Arthritis acute June 30, 2024 11:27am Burning mouth syndrome acute 2024 11:27am Dry mouth acute June 30, [...] right knee acute July 29, 2024 11:07am Fatigue acute August 15 9:40am Anemia acute August 30, 2024 10:57am Arthritis acute August 30, 2024 10:57am Burning mouth syndrome acute 2024 10:57am Fatigue acute August 30, 2024 10:57am Fibromyalgia acute August 30 10:57am Polyneuropathy acute August 30, 2024 10:57am Fibromyalgia acute September 05, 025 3:45pm Osteoarthritis of right knee acute September 05, 2024 3:45pm Polyneuropathy acute September 05, 2024 3:45pm Fibromyalgia acute September 07, 025 8:10am Osteoarthritis of right knee acute September 07, 2024 8:10am Polyneuropathy acute September 07, 2024 8:10am [facility] Work Phone: [phone]) [phone] Telephone encounter Note* Telephone Encounter - Twila Gandara RN - 06/03/2024 4:44 PM EDT Spoke with patient advised she should get new compression if she has not had new ones since 2019. She should also be measured. She would like to re-establish with , lori appt 07/12/24 [facility]04-11[facility] Miscellaneous Notes* Telephone Encounter - Twila Gandara RN - 06/03/2024 4:44 PM EDT Spoke with patient advised she should get new compression if she has not had new ones since 2019. She should also be measured. She would like to re-establish with , lori appt 07/12/24 * Telephone Encounter - Clifford Trejo RN - 06/03/2024 4:19 PM EDT Pt called in statins she saw Dr. [...] for her symptoms. She is to follow upwith us as needed. documented in this encounterCleveland Clinic Foundation04-11-2025 Telephone encounter Note * Telephone Encounter - Clifford Trejo RN - 06/03/2024 4:19 PM EDT Pt called in statins she saw Dr. [...] for her symptoms. She is to follow upwith us as needed. [facility]03-25-2025 Procedure note [facility]monary Services/Neurology [address] [place] [address] MR#: [id number] Acct: [id number] Name: KELLI MONROY Rep #:[id number] : 1950 74 From: Tory Puentes MD Referring Dr: Anthony Mckeon MD [facility]: REG CLI Location: PSN Date: 05/17/24 Sex: F C NCS and/or EMG Patient Report Ordering Doctor: Anthony Mckeon DATE OF SERVICE: 05/17/24 Clinical Summary: 74 year old female patient with symptoms of burning pain in her feet. Nerve Conduction Studies Summary: Nerve conduction studies were performed in the bilateral lower extremities. The sural to radial amplitude ratio (SRAR) utilizing the right radial SNAP amplitude(35.5 microvolts) from the upper extremity study performed [...] Multi Select Codes Neurology Neurology Interp Codes: 88032-47 Musc test done w/n test comp (interp) (2) and 02382-25 Nrv cndj test 7-8 studies (interp) 05/17/24 1345 MD> Date _ Tory Puentes MD CC: Dr. Tory Puentes MD; Dr. Anthony Mckeon MD; Dr. Angel Fuller MD ~ Date Dictated: 05/17/245 Date Transcribed: 05/17/241324 Senior Investment Manager: Signed [facility]03-19-2025 Procedure note [facility]monary Services/Neurology [address] [place] [address] MR#: [id number] Acct: [id number] Name: KELLI MONROY Rep #:[id number] : 1950 74 From: Shakeel Spears MD Referring Dr: Anthony Mckeon MD [facility]: REG CLI Location: PSN Date: 05/11/24 Sex: F C NCS and/or EMG Patient Report Ordering Doctor: Anthony Mckeon DATE OF SERVICE: 05/11/24 Kelli presents with complaints of burning along the chest wall and upper arms. She has a history ofleft carpal tunnel release. Electrodiagnostic findings: Right median motor nerve demonstrates prolonged latency with normal amplitude and reduced conduction velocity left median motor nerve demonstrates normal distal latency, amplitude and conduction velocity. Ulnar motor response within normal limits bilaterally. Normal median ulnar F?waves. Prolonged right median sensory latency at the wrist. Normal ulnar andradial sensory responses. Needle EMG testing was performed in the upper limbs. All muscles tested showed no evidence of denervation with normal motor unit action potentials. Electrodiagnostic impression: This is an abnormal study in the upper limbs 1. Electrodiagnostic findings suggestive of right-sided median mononeuropathy. This consistent witha mild right carpal tunnel syndrome. 2. There is no electrodiagnostic evidence for cervical radiculopathy. Multi Select Codes Neurology Neurology Interp Codes: 48805-81 Musc test done w/n test comp (interp) (2) and 54008-45 Nrv cndj test 9-10 studies (interp) 05/11/24 1423 D> Date _ Shakeel Spears MD CC: Dr. Shakeel Spears MD; Dr. Anthony Mckeon MD; Dr. Angel Fuller MD ~ Date Dictated: 05/11/241419 Date Transcribed: 05/11/241419 Senior Investment Manager: AA Signed [facility]03-18-2025 Evaluation note* Diagnosis Onset Date Resolution Status Admit Date Fatigue acute May 10 10:33am Fatigue acute June 09 1:06pm Osteoarthritis of right knee acute June 24, 2024 9:26am Arthritis acute June 30, 2024 11:27am Burning mouth syndrome acute 2024 11:27am Dry mouth acute June 30, 2024 11:27am Fatigue acute June 30, 2024 11:27am Fibromyalgia acute June 30 11:27am Neck pain acute June 30, 2024 11:27am Polyneuropathy acute June 30 11:27am Osteoarthritis of right knee acute July 13, 2024 10:27am Fatigue acute July 14, 2024 10:38am Osteoarthritis of right knee acute July 22, 2024 11:12am Osteoarthritis of right knee acute July 29, 2024 11:07am Fatigue acute August 15 9:40am Anemia acute August 30, 2024 10:57am Arthritis acute August 30, 2024 10:57am Burning mouth syndrome acute ly 2024 10:57am Fatigue acute August 30, 2024 10:57am Fibromyalgia acute August 30 10:57am Polyneuropathy acute August 30, 2024 10:57am [facility] Work Phone: 1(715) 486-410903-18-2025 Evaluation note* Diagnosis Onset Date Resolution Status Admit Date Fatigue acute May 10 10:33am Fatigue acute June 09 1:06pm Osteoarthritis of right knee acute June 24, 2024 9:26am Arthritis acute June 30, 2024 11:27am Burning mouth syndrome acute Ma y 2024 11:27am Dry mouth acute June 30, 2024 11:27am Fatigue acute June 30, 2024 11:27am Fibromyalgia acute June 30 11:27am Neck pain acute June 30, 2024 11:27am Polyneuropathy acute June 30 11:27am Osteoarthritis of right knee acute July 13, 2024 10:27am Fatigue acute July 14, 2024 10:38am Osteoarthritis of right knee acute July 22, 2024 11:12am Osteoarthritis of right knee acute July 29, 2024 11:07am Fatigue acute August 15 9:40am Anemia acute August 30, 2024 10:57am Arthritis acute August 30, 2024 10:57am Burning mouth syndrome acute Ju ly 2024 10:57am Fatigue acute August 30, 2024 10:57am Fibromyalgia acute August 30 10:57am Polyneuropathy acute August 30, 2024 10:57am Fibromyalgia acute September 05 3:45pm Osteoarthritis of right knee acute September 05, 2024 3:45pm Polyneuropathy acute September 05, 2024 3:45pm [facility] Work Phone: 1([phone]) 670-687903-10-2025 Evaluation note* Diagnosis Onset Date Resolution Status Admit Date Cervical radiculopathy acute [facility] 2024 9:25am Fatigue acute May 10 10:33am Fatigue acute June 09 1:06pm Osteoarthritis of right knee acute June 24, 2024 9:26am Arthritis acute June 30, 2024 11:27am Burning mouth syndrome acute Ma y 2024 11:27am Dry mouth acute June 30, 2024 11:27am Fatigue acute June 30, 2024 11:27am Fibromyalgia acute June 30 11:27am Neck pain acute June 30, 2024 11:27am Polyneuropathy acute June 30 025 11:27am Osteoarthritis of right knee acute July 13, 2024 10:27am Fatigue acute July 14, 2024 10:38am Osteoarthritis of right knee acute July 22, 2024 11:12am Osteoarthritis of right knee acute July 29, 2024 11:07am [facility] Work Phone: 1(840) 768-650903-10-2025 Evaluation note* Diagnosis Onset Date Resolution Status Admit Date Cervical radiculopathy acute [facility] 2024 9:25am Fatigue acute May 10 10:33am [...] right knee acute July 29, 2024 11:07am Fatigue acute August 15 9:40am Anemia acute August 30, 2024 10:57am [facility] Work Phone: 1(243) 926-914202-24-2025 Radiology Diagnostic study note [facility] Imaging Services [address] [place], [place] [address] Sacrum-Coccyx min 2 Views MR#: [id number] Acct: [id number] Name: KELLI MONROY Rep #: [id number] : 1950 F 74 From: Karina Sultana MD PCP: Dr. Angel Fuller MD Status: REG CLI Study:Sacrum-Coccyx min 2 Views Date of Exam: 04/18/24 Exam# [id number] Ordering Dr: SHAHLA GUPTA EXAM: XR Sacrum and Coccyx, 2 or more Views CLINICAL INDICATION: TECHNIQUE: Frontal and lateral views of the sacrum and coccyx. COMPARISON: No relevant prior studies available. FINDINGS: SACRUM/COCCYX: Degenerative changes of the sacroiliac joints, bilaterally. No acute fracture. VERTEBRAE: No acute fracture. DISC SPACES: Yxza-ii-byrskbyh degenerative changes of the pubic symphysis. SOFT TISSUES: Unremarkable. GASTROINTESTINAL TRACT: Fecal retention in the colon consistent with constipation. RAD/Sacrum-Coccyx min 2 Views IMPRESSION: 1. No acute fracture. 2. Fecal retention in the colon consistent with constipation. 3. Degenerative changes as above. Reading Location: [facility] CC: Dr. Angel Fuller MD; SHAHLA KEATING ~ Senior Investment Manager: Signed [facility]02-10-2025 Evaluation note* Diagnosis Onset Date Resolution Status [...] B acute March 11:52am Cervical radiculopathy acute [facility] 2024 9:25am Fatigue acute May 10 10:33am Fatigue acute June 09 1:06pm Osteoarthritis of right knee acute June 24, 2024 9:26am Arthritis acute June 30, 2024 11:27am Burning mouth syndrome acute Ma y 2024 11:27am Dry mouth acute June 30, 2024 11:27am Fatigue acute June 30, 2024 11:27am Fibromyalgia acute June 30 11:27am Neck pain acute June 30, 2024 11:27am Polyneuropathy acute June 30 11:27am Osteoarthritis of right knee acute July 13, 2024 10:27am Fatigue acute July 14, 2024 10:38am [place] [employer] [facility] Work Phone: 1(191) 682-351302-10-2025 Evaluation note* Diagnosis Onset Date Resolution Status Admit Date Arthritis acute April 04, 2024 8:56am Burning mouth syndrome acute Fe bru2024 8:56am Fatigue acute April 04, 2024 8:56am Fibromyalgia acute March 8:56am Low back pain acute April 042024 8:56am Neck pain acute April 04, 2024 8:56am Polyneuropathy acute March 262024 8:56am Episode of syncope acute 2024 11:52am Influenza B acute March 11:52am Cervical radiculopathy acute [facility] 2024 9:25am Fatigue acute May 10 10:33am Fatigue acute June 09 1:06pm Osteoarthritis of right knee acute June 24, 2024 9:26am Arthritis acute June 30, 2024 11:27am Burning mouth syndrome acute Ma y 2024 11:27am Dry mouth acute June 30, 2024 11:27am Fatigue acute June 30, 2024 11:27am Fibromyalgia acute June 30 11:27am Neck pain acute June 30, 2024 11:27am Polyneuropathy acute June 30 11:27am Osteoarthritis of right knee acute July 13, 2024 10:27am Fatigue acute July 14, 2024 10:38am Osteoarthritis of right knee acute July 22, 2024 11:12am Osteoarthritis of right knee acute July 29, 2024 11:07am [place] [employer] [facility] Work Phone: 1(559) 449-481101-28-2025 Evaluation note* Diagnosis Onset Date Resolution Status Admit Date Cervical radiculopathy acute [facility] 2024 2:16pm Degenerative disc disease, cervical [...] B acute March 11:52am Cervical radiculopathy acute [facility] 2024 9:25am Fatigue acute May 10 10:33am Fatigue acute June 09 1:06pm Osteoarthritis of right knee acute June 24, 2024 9:26am Arthritis acute June 30, 2024 11:27am Burning mouth syndrome acute Ca 2024 11:27am Dry mouth acute June 30, 2024 11:27am Fatigue acute June 30, 2024 11:27am Fibromyalgia acute June 30 11:27am Neck pain acute June 30, 2024 11:27am Polyneuropathy acute June 30, 11:27am [facility] Work Phone: 1([phone]) 161-423001-28-2025 Evaluation note* Diagnosis Onset Date Resolution Status Admit Date Cervical radiculopathy acute [facility] 2024 2:16pm Degenerative disc disease, cervical acute March 22 2:16pm Arthritis acute April 04, 2024 8:56am Burning mouth syndrome acute Fe bru2024 8:56am Fatigue acute April 04, 2024 8:56am Fibromyalgia acute March 8:56am Low back pain acute April 042024 8:56am Neck pain acute April 04, 2024 8:56am Polyneuropathy acute March 262024 8:56am Episode of syncope acute 2024 11:52am Influenza B acute March 11:52am Cervical radiculopathy acute [facility] 2024 9:25am Fatigue acute May 10 10:33am [...] right knee acute July 13, 2024 10:27am [facility] Work Phone: 1(446) 917-2083902942-29-8938 Telephone encounter Note* Telephone Encounter - Charlotte Murillo LPN - 03/07/2024 8:47 AM EST Pt advised and voices understanding. Charlotte Murillo LPN [facility]01-13-2025 Miscellaneous Notes* Telephone Encounter - Charlotte Murillo [...] for about 1 year. She saw her radiation safety officer and was given prescriptiondeodorant which has helped somewhat but she is still having issues and states still has sweating/dampness under both arms and breasts. Asking if radiation has caused this. Patient completed radiationin 2016. Requested appointment with Deyanira for this issue. I advised patient to contact her radiation safety officer again. Informed patient I would ask Deyanira and renetta patterson about this as well. Yelitza Bartlett LPN documented in this encounterCleveland Clinic Foundation01-13-2025 Telephone encounter Note * Telephone Encounter - Deyanira Mendez APRN.LUPE - 03/07/2024 8:23 AM EST Please advise pt. to follow up with PCP/derm. Thank you. Deyanira Mendez APRN.AUTOMOTIVE SERVICE ASSISTANT [facility]01-10-2025 Telephone encounter Note* Telephone Encounter - Yelitza Bartlett LPN - 03/04/2024 3:01 PM EST Patient contacted office c/o excessive sweating to bilateral axilla and under both breasts. Patientstates this has been ongoing for about 1 year. She saw her radiation safety officer and was given prescriptiondeodorant which has helped somewhat but she is still having issues and states still has sweating/dampness under both arms and breasts. Asking if radiation has caused this. Patient completed radiationin 2016. Requested appointment with Deyanira for this issue. I advised patient to contact her radiation safety officer again. Informed patient I would ask Deyanira and renetta patterson about this as well. Yelitza Bartlett LPN [facility]12-30-2024 Telephone encounter Note* Telephone Encounter - Baron Kevin PSS - 02/22/2024 1:37 PM EST CD READY FOR INSTRUCTIONAL TECHNOLOGY COACH AT [facility]12-30-2024 Miscellaneous Notes* Telephone Encounter - Baron Kevin PSS - 02/22/2024 1:37 PM EST CD READY FOR INSTRUCTIONAL TECHNOLOGY COACH AT [facility] * Telephone Encounter - Mandy Fuentes - 02/22/2024 10:59 AM EST Patient is calling requesting Mammo from 02/04/2024 copied to a disk. documented in this encounterCleveland Clinic Foundation12-30-2024 Telephone encounter Note * Telephone Encounter - Mandy Fuentes - 02/22/2024 10:59 AM EST Patient is calling requesting Mammo from 02/04/2024 copied to a disk. [facility]12-27-2024 Evaluation note* Diagnosis Onset Date Resolution Status Admit Date Osteoporosis chronic January 3:03pm URI (upper respiratory infection) acute March 06 1:02pm Cervical radiculopathy acute 2024 2:16pm Degenerative disc disease, cervical acute March 22 2:16pm Arthritis acute April 04, 2024 8:56am Burning mouth syndrome acute 2024 8:56am Fatigue acute April 04, 2024 8:56am Fibromyalgia acute March 8:56am Low back pain acute April 042024 8:56am Neck pain acute April 04, 2024 8:56am Polyneuropathy acute March 262024 8:56am Episode of syncope acute 2024 11:52am Influenza B acute March 11:52am [facility] Work Phone: 1(518) 281-133712-27-2024 Evaluation note* Diagnosis Onset Date Resolution Status Admit Date Osteoporosis chronic January 3:03pm URI (upper respiratory infection) acute March 06 1:02pm Cervical radiculopathy acute Ja nuary 2024 2:16pm Degenerative disc disease, cervical acute March 22 2:16pm Arthritis acute April 04, 2024 8:56am Burning mouth syndrome acute Fe bru2024 8:56am Fatigue acute April 04, 2024 8:56am Fibromyalgia acute March 8:56am Low back pain acute April 042024 8:56am Neck pain acute April 04, 2024 8:56am Polyneuropathy acute March 262024 8:56am Episode of syncope acute 2024 11:52am Influenza B acute March 11:52am Cervical radiculopathy acute [facility] 2024 9:25am Fatigue acute May 10 10:33am [facility] Work Phone: 1(903) 895-228112-12-2024 History of Present illness Narrative* Ricardo Baker [...] PATIENT PRESENTS WITH AN IMPLANTABLE OR ATTACHED MOLECULAR TECHNOLOGIST: No RADIOLOGY DEPARTMENT: Mammography PERIPHERAL IV DATA: Not applicable SIGNED BY: Gregorio Marcano February 04, 2024 11:22 AM documented in this encounterCleveland Clinic Foundation12-12-2024 NoteHNO ID: [id number] Author: RICARDO BAKER Mammo Tech Service: ? Author Type: Photographic Reproduction Technician Type: Progress Notes Filed: 02/04/2024 11:22 Note [...] PATIENT PRESENTS WITH AN IMPLANTABLE OR ATTACHED MOLECULAR TECHNOLOGIST: No RADIOLOGY DEPARTMENT: Mammography PERIPHERAL IV DATA: Not applicable SIGNED BY: Gregorio Marcano February 04, 2024 11:22 [facility]11-20-2024 Telephone encounter Note* Telephone Encounter - Erin Olguin RN - 01/13/2024 12:06 PM EST Patient notified. Transferred to [facility] to schedule mammogram. Erin Olguin RN [facility]11-20-2024 Miscellaneous Notes* Telephone Encounter - Erin Olguin RN - 01/13/2024 12:06 PM EST Patient notified. Transferred to [facility] to schedule mammogram. Erin Olguin RN * [...] Medicare). Erin Olguin RN documented in this encounterCleveland Clinic Foundation11-20-2024 Telephone encounter Note * Telephone Encounter - Prisca Rivera MD - 01/13/2024 12:02 PM EST Only if she wants to be seen - had hysterectomy so unless complaints it is up to her. [facility] Work Phone: 1(973) 137-189911-20-2024 Telephone encounter Note* Telephone Encounter - Erin Olguin RN - 01/13/2024 11:08 AM EST Patient called needing Mamm with MIC order. Please file. Patient has not had a yearly since 01/28/21. Only seen for problem visit. Patient asking if DM would still like her seen for annual (every 2 years with Medicare). Erin Olguin RN [facility]09-19-2024 Telephone encounter Note* Telephone Encounter - Nikia Clifford RN - 11/12/2023 3:43 PM EDT Faxed updated diagnosis to billing dept. Patient notified. Nikia Clifford RN [facility]09-19-2024 Miscellaneous Notes* Telephone Encounter - Nikia Clifford RN - 11/12/2023 3:43 PM EDT Faxed updated diagnosis to billing dept. Patient notified. Nikia Clifford RN * Telephone Encounter - Christine Gonzalez APRN.CNP - 11/12/2023 3:10 PM EDT Impaired Swallowing code added on visit. Christine Gonzalez APRN.CNP * Telephone Encounter - Nikia Clifford RN - 11/12/2023 3:01 PM EDT Patient [...] labs? Patient thinks her secondary coverage should picking supervisor the remainder of the bill, but just in case it doesn't. Nikia Clifford RN documented in this encounterCleveland Clinic Foundation09-19-2024 Telephone encounter Note * Telephone Encounter - Christine Gonzalez APRN.CNP - 11/12/2023 3:10 PM EDT Impaired Swallowing code added on visit. Christine Gonzalez APRN.CNP [facility] Work Phone: 1(163) 642-131809-19-2024 Telephone encounter Note* Telephone Encounter - Nikia Clifford RN - 11/12/2023 3:01 PM EDT Patient [...] labs? Patient thinks her secondary coverage should picking supervisor the remainder of the bill, but just in case it doesn't. Nikia Clifford RN [facility]07-16-2024 History of Present illness Narrative* Prisca Rivera MD - 09/08/2023 11:38 AM EDT Member Of Congress offered: Patient declines. Kelli Monroy is a [...] L3 SAB0 IAB0 Ectopic0 Multiple0 Live Births0 Client Development Manager History LMP: Postmenopausal Age at Menarche: Age at First : Age at Menopause: Client Development Manager History Comments: Sexual Activity: Not Currently; No [...] 5 mg/100 mL pgbk PREMIX piggyback Zoledronic Prpm-Pngjtzlv-Rwmtt Active 1EACH .Route ONCE 100 February 07, [...] which included preparing to see the patient, [id number] patient care, completing clinical documentation, obtaining and/or reviewing separately obtained history, performing a medically appropriate examination, counseling and educating the pat ient/family/caregiver, and ordering medications, tests, or procedures. Prisca Latham MD documented in this encounterCleveland Clinic Foundation06-05-2024 Telephone encounter Note * Telephone Encounter - Twila Ely - 07/29/2023 1:57 PM EDT Appointment canceled. Patient informed. [facility] Work Phone: 1(482) 717-821006-05-2024 Miscellaneous Notes* Telephone Encounter - Twila Ely [...] you Yelitza Bartlett LPN documented in this encounterCleveland Clinic Foundation06-05-2024 Telephone encounter Note * Telephone Encounter - Yelitza Bartlett LPN - 07/29/2023 1:50 PM EDT PSS- please contact patient to cancel tomorrow's appointment. Patient completed radiation in 2017 of her right breast, not her throat and shoulders, where she complains of burning. Provider recommends patient contact her PCP for these complaints. Thank you Yelitza Bartlett LPN [facility]04-19-2024 Miscellaneous Notes* Telephone Encounter - Brunilda Min LPN - 06/12/2023 9:02 AM EDT Pt notified and voiced understanding and will check at the pharmacy. Brunilda Min LPN' * Telephone Encounter - Christine Gonzalez APRN.AUTOMOTIVE SERVICE ASSISTANT - 06/12/2023 8:54 AM EDT The nonhormonal options are OTC. No prescription needed. Christine Gonzalez APRN.CNP * Telephone Encounter - Brunilda Min LPN [...] off on that for now. Pt uses [facility] [place].Call only if problems. Brunilda Min LPN * Telephone Encounter - Christine Gonzalez APRN.CNP - 06/12/2023 7:15 AM EDT Please notify patient: Vaginal cultures negative for infection. Urine culture still in process. Highly suspect her irritation is from atrophy as we discussed. Reached out to Deyanira from oncology, who approves the local vaginale estrogen cream. If patient would like to stick with nonhormonal options, I recommend Relizen from [employer] or the moisturizers/lubricants I included in checkout instructions. Thyroid labs are WNL. Can place consult to endocrinology if she would like. Recommend follow up with PCP about the new swallowing sensation she discussed with me. Christine Gonzalez APRN.CNP documented in this encounterCleveland Clinic Foundation04-18-2024 Instructions* Patient Instructions* Christine Gonzalez APRN.CNP - 06/11/2023 11:14 AM EDT [...] some patients. Lubricants and moisturizers list The vcev-vsc-mwzdyfp vaginal moisturizer and lubricant products can be [...] in any drugstore or online. Also, many [employer] stores do carry high-quality lubricant products. VAGINAL [...] lube Replens Silky Smooth Pulse Aloe-ahh Wet [place] ZHANNA Premium Personal Lubricant PINK Silicone Lubricant [...] vaginal moisturizer makes them feel more comfortable. Skid Wrapper beware: many lubricants arelabeled as moisturizers to [...] also be applied externally for comfort. [place] Aloe [place]: Many people are allergic to aloe, so [...] of symptoms of vaginal atrophy and the voodoo of the vagina's epithelial lining and pH -- hormone free. In uboi-lb-reqe clinical trials, Revaree performed as well as [...] reduces the intensity and frequency of hot flashes. Relizen works by expressing a mild seratenurgic effect on the hypothalamus. Relizen is professionally recommended, easily ordered by the patient, costs $35 per month, and directly shipped to the patient's home. Relizen is a great choice for women whostruggle with hot flashes and either cannot or do not want to use hormone therapy. documented in this encounterCleveland Clinic Foundation04-18-2024 History of Present illness Narrative* Christine Gonzalez APRN.CNP - 06/11/2023 10:44 AM EDT Member Of Congress offered: Patient declines. Kelli Monroy is a [...] been seen by endocrinology before outside of [facility] that informed her that hormone levels were normal. She would like her thyroid checked - reports a new feeling with swallowing. No vaginal bleeding. Some urinary frequency. OB History T0 L3 SAB0 IAB0 Ectopic0 Multiple0 Live Births0 Client Development Manager History LMP: Postmenopausal Age at Menarche: Age at First : Age at Menopause: Client Development Manager History Comments: Sexual Activity: Not Currently; No [...] 5 mg/100 mL pgbk PREMIX piggyback Zoledronic Ymog-Audhzgzr-Gfcqo Active 1EACH .Route ONCE 100 February 07, [...] Assessed 05/22/2023 REVIEW OF SYSTEMS. Expanded ROS: EVENT PROMOTIONS COORDINATOR: Positive for vaginal irritation Allergies and current [...] inspiratory effort PELVIC: normal Bartholin's glands, urethra, Ranger's glands, no vulvar lesions, + cervix surgically [...] ICD10: L68.0 - Consider second opinion from [facility] dietary worker. - Patient to notify if she would like to proceed with consult Christine Gonzalez APRN.LUPE I spent a total of 30 minutes on the date of the service which included preparing to see the patient, pkwo-fm-lpfc patient care, completing clinical documentation, performing a medically appropriate examination, counseling and educating the patient/family/caregiver, ordering medications, tests, or p rocedures, communicating with other HCPs (not separately reported), and communicating results to the patient/family/caregiver. documented in this encounterCleveland Clinic Foundation12-11-2023 History of Present illness Narrative* Ricardo Baker [...] 02, 2023 11:32 AM documented in this encounterCleveland Clinic Foundation10-26-2023 Miscellaneous Notes* Telephone Encounter - Brunilda Min LPN - 12/18/2022 8:41 AM EDT Spoke with pt and below message given. All questions answered, Brunilda Min LPN * Telephone Encounter - Prisca Rivera MD - 12/17/2022 5:50 PM EDT If no concerns she can be seen every other year. * Telephone Encounter - Nikia Clifford RN - 12/17/2022 2:40 PM EDT Patient [...] advise. Nikia Clifford RN documented in this encounterCleveland Clinic Foundation09-29-2023 History of Present illness Narrative* Deyanira MendezELENA.AUTOMOTIVE SERVICE ASSISTANT - 11/21/2022 12:50 PM EDT Chief Complaint Patient presents with: Established Patient HPI: Kelli Monroy is a 72 year old female who presents here today for follow up breast cancer. Per Dr. Weber's previous note: H/o CAD (mild by CT), hyperparathyroidism, breast cancer, GERD, hypercholesterolemia, osteopenia (receives annual zoledronic acid infusion at her dietary worker office), osteoarthritis, migraine headache and mitral valve [...] dilation. Liver demonstrated no mass. Echocardiogram at [facility] 02/21/2022: Left ventricular systolic function [...] fevers and fatigue for about a year. Television Analyzer temperatures from 03/26 through eMacs of 99.8 [...] ICD10: Z85.3 (primary diagnosis) pT1b pN0 Mx ER/SC positive, HER2 negative stage IA invasive ductal [...] visit. Deyanira Mendez APRN.CNP documented in this encounterCleveland Clinic Foundation05-11-2023 Miscellaneous Notes* Telephone Encounter - Brunilda Min LPN - 07/03/2022 10:16 AM EDT Pt notified of results, all questions answered no further concerns. Brunilda Min LPN' * Telephone Encounter - Adelaida Brink APRN.CNP - 07/03/2022 9:34 AM EDT DM pt Please let the pt know that her urine culture is negative for infection. Adelaida Brink APRN.CNP documented in this encounterCleveland Clinic Foundation05-09-2023 History of Present illness Narrative* Prisca Cox MD - 07/01/2022 3:01 PM EDT Member Of Congress offered: Patient declines. Kelli Monroy is a [...] L3 SAB0 IAB0 Ectopic0 Multiple0 Live Births0 Client Development Manager History LMP: Postmenopausal Age at Menarche: Age at First : Age at Menopause: Client Development Manager History Comments: Sexual Activity: Not Currently; No [...] 5 mg/100 mL pgbk PREMIX piggyback Zoledronic Uaid-Xpkngogx-Krtgy Active 1EACH .Route ONCE 100 February 07, [...] which included preparing to see the patient, dabm-ny-gfyd patient care, completing clinical documentation, obtaining and/or reviewing separately obtained history, performing a medically appropriate examination, counseling and educating the pat ient/family/caregiver, and ordering medications, tests, or procedures Medical Decision Making: Medical Decision Making Level: 1 - N/A Prisca Latham MD documented in this encounterCleveland Clinic Foundation05-03-2023 Instructions* Patient Instructions* Olga Steinberg APRN.CNM - 06/25/2022 10:45 AM [...] penis or fingers just before sex. Coconut, [place], Avocado or Peanut oil- natural oils are [...] are available in pharmacies and online. Restore- [employer] Replens Stan Feminease Moist Again K-Y Liquid beads Products to assist with maintaining vaginal ph IsoFresh [email or web address] BiopHresh Rephresh documented in this encounterCleveland Clinic Foundation05-03-2023 History of Present illness Narrative* Olga Steinberg [...] plans Olga Steinberg APRN.CNM documented in this encounterCleveland Clinic Foundation03-30-2023 Miscellaneous Notes* Telephone Encounter - RUTH Caruso [...] and reports she is planning to call [facility] this afternoon to schedule a consult [...] Assessment Completed RUTH Caruso-Aura documented in this encounterCleveland Clinic Foundation03-15-2023 Miscellaneous Notes* Addendum Note - Charlotte Murillo LPN - 05/07/2022 2:29 PM EDTAddended by: CHARLOTTE MURILLO LPN on: 05/07/2022 02:29 PM Modules accepted: Orders documented in this encounterCleveland Clinic Foundation03-15-2023 Procedure note* Robert Weber DO - 05/07/2022 2:19 PM EDTAssociated Order(s): BONE MARROW BIOPSY Post-Procedure Diagnose(s): Fever, low grade BEDSIDE PROCEDURE NOTE BONE MARROW BIOPSY Performed by: Robert Weber DO Authorized by: Robert Weber DO Informed Consent Consent Obtained: Written [place] Protocol A moment to CARE was completed. SIGN IN Personnel directly involved with the procedure wore the appropriate PPE. Special Equipment: Yes ([employer] biopsy system) Patient/Surrogate Stated/Verified: Patient name, Date [...] Site: Right posterior sperior iliac crest . [employer] biopsy system was used. Using aseptic technique, [...] 2022 TIME: 2:19 PM documented in this encounterCleveland Clinic Foundation03-15-2023 Nurse Note* Charlotte Murillo LPN - 05/07/2022 2:15 PM EDT Pt discharged to home with shae [place] after BMBX with dry sterile dressing in place. No drainage noted. Post-procedure care reviewed with patient. Pt to call with any complaints of redness, swelling, increased or unresolved pain, bleeding, chills, bruising, and/or fever. Pt verbalized understanding. Charlotte Murillo LPN documented in this encounterCleveland Clinic Foundation02-27-2023 Miscellaneous Notes* Telephone Encounter - Charlotte Murillo LPN - 04/21/2022 3:17 PM EST reviewed percocet and ativan prior to procedure. Discussed what to wear. Charlotte Murillo LPN * Telephone Encounter - Mandy Wagner Pss - 04/21/2022 3:00 PM EST Please call patient in regards to medication questions prior to bone biopsy on 05/07 documented in this encounterCleveland Clinic Foundation02-20-2023 Miscellaneous Notes* Telephone Encounter - Kari Hawthorne [...] calls in please warm transfer her to [facility] Pss Thank you! 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 HPI: The patient is a 72-year-old female with a past medical history significant for CAD (mild by CT), hyperparathyroidism, breast cancer, GERD, hypercholesterolemia, osteopenia (receives annual zoledronic acid infusion at her dietary worker office), osteoarthritis, migraine headache and mitral valve [...] dilation. Liver demonstrated no mass. Echocardiogram at [facility] 02/21/2022: Left ventricular systolic function [...] fevers and fatigue for about a year. Television Analyzer temperatures from 03/26 through eMacs of 99.8 [...] blood tinged. Has CT sinuses scheduled at [facility]. Resp: Daily dry cough. Denies [...] (97.2 F), weight 71.2 kg (157 lb), [id number] %. Well-appearing and in no acute distress. [...] lower extremity varicosities. BREAST: Nurse acted as park activities coordinator. Fine transverse scar central upper right breast. No concerning mass or nodule. Left breast exam no concerning mass or nodule. ABDOMEN: The abdomen is nondistended. No organomegaly. No tenderness. Extremities: She has mild symmetric swelling without pitting edema. SKIN: No jaundice or rash. No petechiae. NEUROLOGIC: software project engineer II-XII are grossly intact. LABORATORY DATA: Component [...] Abs Lymph 1.00 - 4.00 k/uL 1.26 Mower% % 12.0 Abs Mower <0.87 k/uL 0.83 Eosin% % 0.7 Abs [...] last checked 03/2021. I verified this through [facility] electronic record. ASSESSMENT/PLAN: (R50.9) Fever, [...] axillary sweating and fatigue. -pT1b pN0 Mx ER/SC positive, HER2 negative stage IA invasive ductal [...] procedure. Instructed her she will need a transport driver. Also advised her to avoid aspirin [...] care. Robert Weber DO documented in this encounterCleveland Clinic Foundation02-13-2023 Miscellaneous Notes* Telephone Encounter - Robert Weber DO - 04/07/2022 10:47 AM EST Noted. Thank you. Robert Weber DO * Telephone Encounter - Mandy Person RN - 04/07/2022 10:22 AM EST Patient calling to update Dr. Weber that she had her CT scan completed at [facility] 04/01/22 and the results were to be faxed to Dr. Weber's office. Pt calling to ensure that Dr. Weber's office did receive it. Pt states if it was not received, that Dr. Weber should be able to access the record through [facility]. Pt states she will be [...] Weber DO * Telephone Encounter - Patricia Warner - 04/06/2022 1:42 PM EST I called and spoke to Kelli and she stated understanding of the below results. She stated that she had the CT scan at [facility] last week on 04/01/22, the same day she seen you. She stated she still hasn't heard anything from but she was able to print the CT scan report herself. She thinks the scan looks ok but she will try to call 's office tomorrow about what he has to say Patricia Norman Pss * Telephone Encounter - Robert Weber DO - 04/06/2022 10:11 AM EST Can let her know her blood counts are normal and the bone scan suggested no bone metastases or cancer otherwise in the bones. Ask her to contact us once she has the CT of the sinuses at [facility] and hearsfrom Dr. Mckenna what his plan is since she may have a low-grade chronic sinusitis causing her low-grade fevers. If that is not the case, then we can consider proceeding with bone marrow biopsy. Robert Weber DO documented in this encounterCleveland Clinic Foundation02-10-2023 Miscellaneous Notes* Telephone Encounter - KARISSA Ladd - 04/04/2022 3:50 PM EST CD/report READY FOR INSTRUCTIONAL TECHNOLOGY COACH AT [facility] * Telephone Encounter - Twila Lopez Pss - 04/04/2022 11:33 AM EST Patient called requesting disk and report of 04/03 whole body bone scan. Patient will picking supervisor next week. documented in this encounterCleveland Clinic Foundation02-09-2023 History of Present illness Narrative* Valarie Marrero, RT(R) - 04/03/2022 10:00 AM EST RADIOLOGY [...] 10:15 PATIENT DISCHARGED TO: Ambulatory patient, left [facility] department area. A Diagnostic radioactive procedure has taken place, with no further precautions necessary other than routine body substance precautions. More information regarding radiation safety can be found usingthis link: [email or web address] SIGNATURE: AURELIA Hartman PATIENT NAME: Kelli Monroy DATE: April 03, 2022 TIME: 11:05 AM PAGER/CONTACT #: documented in this encounterCleveland Clinic Foundation02-08-2023 Miscellaneous Notes* Telephone Encounter - Kari Esquivel RN - 04/02/2022 12:53 PM EST Pt notified. * Telephone Encounter - Robert Weber DO - 04/02/2022 12:40 PM EST Can let her know the ultrasound of her legs showed no evidence of blood clots. 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 HPI: The patient is a 72-year-old female with a past medical history significant for CAD (mild by CT), hyperparathyroidism, breast cancer, GERD, hypercholesterolemia, osteopenia (receives annual zoledronic acid infusion at her dietary worker office), osteoarthritis, migraine headache and mitral valve [...] dilation. Liver demonstrated no mass. Echocardiogram at [facility] 02/21/2022: Left ventricular systolic function [...] fevers and fatigue for about a year. Television Analyzer temperatures from 03/26 through eMacs of 99.8 [...] blood tinged. Has CT sinuses scheduled at [facility]. Resp: Daily dry cough. Denies [...] lower extremity varicosities. BREAST: Nurse acted as park activities coordinator. Fine transverse scar central upper right breast. No concerning mass or nodule. Left breast exam no concerning mass or nodule. ABDOMEN: The abdomen is nondistended. No organomegaly. No tenderness. Extremities: She has mild symmetric swelling without pitting edema. SKIN: No jaundice or rash. No petechiae. NEUROLOGIC: software project engineer II-XII are grossly intact. LABORATORY DATA: Component [...] last checked 03/2021. I verified this through [facility] electronic record. ASSESSMENT/PLAN: (R50.9) Fever, [...] axillary sweating and fatigue. -pT1b pN0 Mx ER/SC positive, HER2 negative stage IA invasive ductal [...] scheduled for CT of the sinuses at [facility] as ordered by her ENT [...] which included preparing to see the patient, xogq-dw-wjhs patient care, completing clinical documentation, obtaining and/or reviewing separately obtained history, performing a medically appropriate examination, counseling and educating the pat ient/family/caregiver, ordering medications, tests, or procedures, independently interpreting results (not separately reported), communicating results to the patient/family/caregiver, and care coordination (not separately reported). Robert Weber DO documented in this encounterCleveland Clinic Foundation01-27-2023 Miscellaneous Notes* Telephone Encounter - Angela Crawford - 03/21/2022 11:15 AM EST Patient called back and confirmed understanding of appointment time change. * Telephone Encounter - Bailey Marquez - 03/20/2022 3:50 PM EST 1st attempt: MC sent to inform pt of apt time change due to providers schedule changes documented in this encounterCleveland Clinic Foundation01-24-2023 Miscellaneous Notes* Telephone Encounter - Corry Villalba [...] 5 years ago. Thank you. Deyanira Mendez APRN.CNP * Telephone Encounter - Erin Fernandez - 03/18/2022 10:17 AM EST Pt would like to discuss possible treatment again. She has had low grade fever for the last few months. No known reason for it. documented in this encounterCleveland Clinic Foundation01-03-2023 History of Present illness Narrative* Brunilda Daugherty, RT(R) - 02/25/2022 2:00 PM EST Radiology [...] 2022 TIME: 3:39 PM documented in this encounterCleveland Clinic Foundation12-11-2022 Miscellaneous Notes* Letter - Mammography Coordinator - 02/02/2022 5:44 AM EST February 02, 2022 PID: [id number] Kelli Monroy [id number] [address] Dear Ms. Monroy, We are pleased to [...] report will be [facility] at [facility] as part of your permanent medical record and are available for your continuing care. Thank you for allowing us to help in meeting your health care needs. Sincerely, Dr. Lopez Interpreting Radiologist [facility] (Normal over 40) documented in this encounterCleveland Clinic Foundation12-09-2022 History of Present illness Narrative* Tess Briones [...] 31, 2022 9:25 AM documented in this encounterCleveland Clinic Foundation12-01-2022 History of Present illness Narrative* Della Salazar [...] 23, 2022 11:05 AM documented in this encounterCleveland Clinic Foundation11-03-2022 History of Present illness Narrative* Andres Vasquez MD - 12/26/2021 3:48 PM EDT Kelli Monroy is a 71 year old female who presents for problem visit. HPI: Patient presents with urinary urgency & dysuria. Denies vaginitis symptoms but she has stable vaginal dryness. OB History T0 L3 SAB0 IAB0 Ectopic0 Multiple0 Live Births0 Client Development Manager History LMP: Postmenopausal Age at Menarche: Age at First : Age at Menopause: Client Development Manager History Comments: Sexual Activity: Not Currently; No [...] Low Andres Vasquez MD documented in this encounterCleveland Clinic Foundation11-03-2022 Miscellaneous Notes* Telephone Encounter - Brunilda Min LPN - 12/26/2021 3:21 PM EDT Spoke with pt and appt scheduled for 3:40 this afternoon. Brunilda Min LPN * Telephone Encounter - Twila Wanrer - 12/26/2021 3:04 PM EDT Patient called stating she may have a UTI. she is experiencing burning and is asking if she needs appointment or testing. Please call patient and advise. documented in this encounterCleveland Clinic Foundation06-07-2022 History of Present illness Narrative* Deyanira Mendez APRN.AUTOMOTIVE SERVICE ASSISTANT - 07/30/2021 2:06 PM EDT Chief Complaint [...] GI. Pt. feels that she is having senior living side effects from AI/tamoxifen. Appetite:Good. Energy level:Poor. [...] Declined further AI/Tamoxifen therapy. - Mammogram per EVENT PROMOTIONS COORDINATOR. - Follow up with EVENT PROMOTIONS COORDINATOR as scheduled. - Follow up in one year. - Pt. aware to call office with any questions/concerns. The patient indicates understanding of these issues and agrees with the plan. All documentation from previous visit of 07/30/20-Dr. Chavarria was copied and pasted, documentation has been reviewed and edited as necessary for today's visit. Deyanira Mendez APRN.CNP documented in this encounterCleveland Clinic Foundation05-20-2022 History of Present illness Narrative* Adriana Vasquez [...] history is provided by the patient. No bilingual speech language pathologist was used. Rash Review of Systems Constitutional: [...] plan. Adriana Vasquez APRN.LUPE documented in this encounterCleveland Clinic Foundation05-05-2022 Miscellaneous Notes* Telephone Encounter - Lesley Dey RN - 06/27/2021 12:18 PM EDT Project Colour[employer]t message sent to patient with information. Lesley Dey RN * Telephone Encounter - Prisca Cox MD - 06/27/2021 11:48 AM EDT Yes, I do recommend yearly mammograms. * Telephone Encounter - Nikia Clifford RN - 06/26/2021 4:57 PM EDT See PSS note. Order was already placed 01/2021. Nikia Clifford RN * Telephone Encounter - Erin Fernandez - 06/26/2021 4:37 PM EDT Pt would like to have confirmation that Dr. Cox would like her to have a mammogram this year. She knows she is not due until January. documented in this encounterCleveland Clinic Foundation05-04-2022 History of Present illness Narrative* Brunilda Huerta, [...] 2021 TIME: 1:31 PM documented in this encounterCleveland Clinic Foundation04-09-2022 History of Present illness Narrative* Adriana Vasquez APRN.AUTOMOTIVE SERVICE ASSISTANT - 06/01/2021 2:25 PM EDT CC: Patient [...] plan. Adriana Vasquez APRN.LUPE documented in this encounterWinchester ClinicDischar summary Author Jefry Mir [facility] Note Date/Time November 21, 2024 10:31am [facility] Medical Records Department [address] [place] [address] Emergency Department Summary 11/21/24 MR#: [id number] Acct: [id number] Name: KELLI MONROY Rep #:[id number] : 1950 74 From: Jefry Hoffman PCP: Dr. Angel Fuller MD Status:DEP ER Location: ED HPI History of Present Illness HPI Narrative: Patient presents with right knee pain that has been getting worse over the past 2 days. Patient states it came on gradually. Patient states it has been constant. Patient denies any trauma or injury. Patient describes her pain as adull ache. Patient states it radiates down her leg to the calf and anterior lower leg. Patient admits to some burning sensation in her lower leg. Patient states she was recently diagnosed with neuropathy. Patient states her pain is worse with bending her knee. Patient states she has been receiving some injections into her knee which has been helping. Patient states she called the orthopedic office this morning and was referred to the emergency department for possible DVT and pain control. Chief Complaint: Lower Extremity Injury Onset/Context/Timing Onset: Days (2) Context: Gradual Onset Timing: Continuous Quality of Pain: Dull Location: Right knee and lower leg Worsened by: Flexion Relieved by: Injections Associated Symptoms Associated Symptoms: Positive for Parasthesia; Negative for Weakness or Loss of Funtion PFSH PFS Medical History Episode of syncope Influenza B Acute pharyngitis Burn of right upper extremity Atherosclerosis of coronary artery of [place] heart without angina pectoris Fibromyalgia Menopausal hot flushes Symptoms of gastroesophageal reflux Hypertension Hyperparathyroidism Paresthesia Skin cancer GERD (gastroesophageal reflux disease) Osteopenia Osteoarthritis Heart murmur Hormone deficiency High cholesterol Headache Gastrointestinal problem Cataracts, bilateral Breast cancer Breast lump UTI (urinary tract infection) Back problem Arthritis Hx of breast cancer Home Medications ?Medication ?Instructions ?Recorded ?Last Taken ?Type acetaminophen 500 mg tablet 1,000 mg PO BID PRN Pain 0 06/10/23 11/20/24 History (Tylenol Extra Strength) cyanocobalamin (vitamin B-12) 100 mcg subcut QMONTH 11/16/24 History 1,000 mcg/mL injection solution cholecalciferol (vitamin D3) 1,250 1,250 mcg PO QWEEK #4 caps 09/23/24 11/14/24 Rx mcg (50,000 unit) capsule tramadol 50 mg tablet 50 mg PO Q4H PRN PRN Pain 3 days 11/21/24 Unknown Rx #20 tabs Allergy/AdvReac Type Severity Reaction Status Date / Time duloxetine (From Cymbalta) AdvReac Mild dizziness Verified 11/21/24 08:14 Family History Father Heart disease Mother Heart [...] 1-2 times per week ROS ROS ED Constitutional Constitutional ED: Denies chills or fever(s) Eyes Eyes: Denies blurry vision or change in vision ENT ENT ED: Denies rhinorrhea or sore throat Cardiovascular Cardiovascular: Denies chest pain or palpitations Respiratory/Chest Respiratory/Chest: Denies cough or dyspnea Gastrointestinal Gastrointestinal: Denies nausea or vomiting Genitourinary Genitourinary ED: Denies dysuria or hematuria Musculoskeletal Musculoskeletal: Reports back pain and neck pain Integumentary Reports rash; Denies abscess Neurologic Neurologic: Denies headache(s) or weakness Allergic/Immunologic Allergic/Immunologic ED: Denies mouth swelling or urticaria EXAM Physical Exam Const Vital Signs: 11/21/24 08:14 Temperature 98.8 F Temperature Source Oral Pulse Rate 77 Respiratory Rate 16 Blood Pressure 173/83 H Blood Pressure Mean 113 Pulse Ox 100 Oxygen Delivery Method Room Air Positive well nourished and well developed General Appearance ED: well developed and NAD HEENT Reports moist mucous membranes Neck supple Extremity Extremity Narrative: There is tenderness over the posterior lateral aspect of the right knee. There is no bony crepitance or step-off. There is a mild joint effusion noted. Thereis some mild edema. Range of motion was limited in flexion of the right knee secondary to pain. There is no laxity appreciated. Varus and valgus stress test were negative. Mag's test was negative. There is a good pedal pulse noted. There is minimal calf tenderness. Sensation is intact to light touch bilaterally in the lower extremities. Neuro oriented x3, CN's II-XII intact bilaterally, moves all extremities and no sensory deficits noted Sensorium / Orientation: alert Motor Exam: strength 5/5 throughout Psych mental status grossly normal MDM MDM MDM Narrative Medical decision making narrative: Differential diagnosis includes DVT, osteoarthritis, occult fracture, muscle strain, neuropathy, and fibromyalgia. Venous duplex of the right lower extremity will be obtained to assess for DVT. X-rays of the right knee will be obtained to assess for occult fracture and osteoarthritis. History & Record Review Additional record(s) reviewed:: Prior outpatient record, Prior ED visit and Prior labs Radiography Diagnostic Testing: Clinical Impression(s) from Imaging Studies Knee X-Ray 11/21/24 08:48 IMPRESSION: Degenerative change greatest at the medial and patellofemoral compartments. Small joint effusion. Reading Location: [id number] X-rays of the right knee were obtained. There are 4 views. On my independent interpretation, there is no acute fracture or dislocation noted. There are degenerative changes noted over the medial compartment. Radiologist also interpreted the x-rays and agrees. Venous duplex of the right lower extremity was obtained. There is no evidence of DVT. Treatment and Re-Evaluation Narrative: Patient was given a dose of tramadol here. Patient was feeling better on reevaluation. Patient was instructed to ice and elevate the right knee. Patient was given a prescription for tramadol. Patient was instructed to follow-up with her orthopedic surgeon in 5 to 7 days. Patient was instructed toreturn if worse in any way. Patient understood and was agreeable with the plan. All questions were answered. Discharge Plan Triage Chief Complaint: Lower Extremity Injury ED Provider: Jefry Mir Dx/Rx/DC Orders Clinical Impression: Acute pain of right knee, Osteoarthritis of right knee Instructions: ED Knee Sprain, ED Osteoarthritis Prescriptions: New tramadol 50 mg tablet 50 mg PO Q4H PRN PRN (Reason: Pain) 3 Days Qty: 20 0RF No Action acetaminophen [Tylenol Extra Strength] 500 mg tablet 1,000 mg PO BID PRN (Reason: Pain) cyanocobalamin (vitamin B-12) 1,000 mcg/mL solution 100 mcg subcut QMONTH cholecalciferol (vitamin D3) 1,250 mcg (50,000 unit) capsule 1,250 mcg PO QWEEK Qty: 4 4RF Primary Care Provider: Angel Fuller Referrals: Jeovanny Moore DO [Med Staff - Active Staff, Orthopedics] - 5-7 Days Angel Fuller MD [Primary Care Provider, Internal Medicine] - 5-7 Days Print Language: Portuguese Disposition Disposition: Home, Self Care What to do if you have Problems For any increased pain, shortness of breath, bleeding, nausea or vomiting, chestpain, or any unexpected problems, contact your Primary Care Provider. Call [facility] ([phone]) or report to the closest Emergency Room. Call 911 if necessary. 11/21/24 1558 <Electronically signed by Jefry Mir DO> Cosigner Signature (if applicable): CC: Dr. Angel Fuller MD ~ Signed [facility] Work Phone: Evaluation + Plan note Future Appointments Appointment Date:05/30/2021 11:00:00 AM Scheduled Provider:NAHOMI PETERSONAUTOMOTIVE SERVICE ASSISTANT Location:[facility] Appointment Type:CV OV Appointment Date:02/26/2022 02:00:00 PM Scheduled Provider:DONG BARBOSACRANK HAND Location:[facility] Appointment Type:BS OV Follow Up [facility] Evaluation + Plan note Future Appointments Appointment Date:05/29/2022 10:30:00 AM Scheduled Provider:NAHOMI PETERSON Location:[facility] Appointment Type:CV OV Appointment Date:02/26/2023 11:00:00 AM Scheduled Provider:THONG AGUILAR Location:[facility] Appointment Type:BS OV Future Scheduled Tests Radiology* MA Mammo Screening Bilateral w/ Mic 01/26/23 [facility] Evaluation + Plan note Future Appointments Appointment Date:05/29/2022 10:30:00 AM Scheduled Provider:NAHOMI PETERSON Location:[facility] Appointment Type:CV OV Appointment Date:02/26/2023 11:00:00 AM Scheduled Provider:THONG AGUILAR Location:[facility] Appointment Type:BS OV Diagnostic Tests Pending * [facility] Lab Send out (Blood Specimens) 03/03/22 Future Scheduled Tests Radiology* MA Mammo Screening Bilateral w/ Mic 01/26/23 [facility] Evaluation + Plan note Future Appointments Appointment Date:12/04/2022 02:30:00 PM Scheduled Provider:NAHOMI PETERSON Location:[facility] Appointment Type:CV OV Appointment Date:02/26/2023 11:00:00 AM Scheduled Provider:THONG AGUILAR Location:[facility] Appointment Type:BS OV Future Scheduled Tests Radiology* MA Mammo Screening Bilateral w/ Mic 01/26/23 [facility] evaluation + Plan note Future Appointments Appointment Date:08/15/2024 10:30:00 AM Scheduled Provider:NAHOMI PETERSON Location:[facility] Appointment Type:CV OV Appointment Date:03/16/2025 01:30:00 PM Scheduled Provider: Location:[facility] Appointment Type:MA Mammogram Screening Bilateral w/ Mic Appointment Date:03/16/2025 02:00:00 PM Scheduled Provider:THONG AGUILAR Location:[facility] Appointment Type:BS OV Follow Up Future Scheduled Tests Radiology* MA Mammo Screening Bilateral w/ Mic 03/16/25 [facility] evaluation + Plan note Future Appointments Appointment Date:09/19/2024 10:15:00 AM Scheduled Provider:NAHOMI PETERSON Location:[facility] Appointment Type:CV OV Appointment Date:03/16/2025 01:30:00 PM Scheduled Provider: Location:[facility] Appointment Type:MA Mammogram Screening Bilateral w/ Mic Appointment Date:03/16/2025 02:00:00 PM Scheduled Provider:THONG AGUILAR Location:[facility] Appointment Type:BS OV Follow Up Future Scheduled Tests Radiology* MA Mammo Screening Bilateral w/ Mic 03/16/25 [facility] evaluation note* Diagnosis Onset Date Resolution Status Osteoporosis chronic Hyperparathyroidism acute Paresthesia acute Osteoporosis [facility] Work Phone: evaluation note* Diagnosis Cough- Primary Suspected COVID-19 virus infection [facility] Onset Date Resolution Status Hyperparathyroidism acute Paresthesia acute Osteoporosis [facility] Work Phone: evaluation note* Diagnosis Discoloration of skin- Primary Dyschromia, unspecified [facility] Diagnosis Onset Date Resolution Status Hyperparathyroidism acute Paresthesia acute Osteoporosis chronic Arthritis acute Back pain acute Neck pain acute Paresthesia acute Degenerative disc disease, cervical acute [facility] Work Phone: evaluvnfxl note* Diagnosis Malignant neoplasm of upper-inner quadrant of right breast in female, estrogen receptor positive (HCC)- Primary [facility]* Diagnosis Urinary urgency- Primary Urgency of urination Dysuria [facility] Diagnosis Onset Date Resolution Status Hyperparathyroidism acute Osteoporosis [facility] Work Phone: Evaluation note* Diagnosis Fever, unspecified fever cause- Primary Coagulation defect (HCC) Other and unspecified coagulation defects Leg swelling Swelling of limb Malignant neoplasm of upper-inner quadrant of right breast in female, 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, estrogen and progesterone receptor positive (HCC) Bone pain Disorder of bone and cartilage, unspecified documented in this encounter [facility] note* Diagnosis Fever, unknown origin- Primary Fever, unspecified Personal history of malignant neoplasm of breast [facility] Diagnosis Malignant neoplasm of upper-inner quadrant of right breast in female, estrogen receptor positive (HCC)- Primary documented in this encounter [facility] note* Diagnosis Fever, low grade- Primary Fever, unspecified documented in this encounter [facility] note* Diagnosis Dysuria- Primary Vaginal burning Other specified symptom associated with female genital organs documented in this encounter [facility] note* Diagnosis Hematuria, unspecified type- Primary Dysuria Vaginal dryness Other specified symptom associated with female genital organs Abnormal facial hair Hirsutism Low grade fever Fever, unspecified documented in this encounter [facility] note* Diagnosis Personal history of malignant neoplasm of breast- Primary Encounter for screening mammogram for high-risk patient [facility]* Diagnosis Encounter for screening mammogram for malignant neoplasm of breast Other screening mammogram [facility]* Diagnosis Fever, unspecified fever cause Malignant neoplasm of upper-inner quadrant of right breast in female, 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, estrogen and progesterone receptor positive (HCC) Bone pain Disorder of bone and cartilage, unspecified documented in this encounter [facility] note* Diagnosis Personal history of malignant neoplasm of breast Encounter for screening mammogram for high-risk patient [facility]* Diagnosis Onset Date Resolution Status Degenerative disc disease, cervical acute Foraminal stenosis of cervical region acute Hyperparathyroidism chronic Menopausal hot flushes chron ic Osteoporosis chronic Symptoms of gastroesophageal reflux chronic [facility] Work Phone: Evaluation note* Diagnosis Onset Date Resolution Status Degenerative disc disease, cervical acute Foraminal stenosis of cervical region acute Hyperparathyroidism chronic Menopausal hot flushes chron ic Osteoporosis chronic Symptoms of gastroesophageal reflux chronic Degenerative disc disease, cervical acute Foraminal stenosis of cervical region acute [facility] Work Phone: Evaluation note* Diagnosis Genitourinary syndrome of menopause- Primary Vaginal irritation Unspecified noninflammatory disorder of vagina Urinary frequency Screening for thyroid disorder Hirsutism [facility]* Diagnosis Onset Date Resolution Status Degenerative disc disease, cervical acute Foraminal stenosis of cervical region acute Heart palpitations acute [facility] Work Phone: Evaluation note* Diagnosis Urinary frequency- Primary Frequent UTI Urinary tract infection, site not specified documented in this encounter [facility] note* Diagnosis Encounter for screening mammogram for malignant neoplasm of breast- Primary Other screening mammogram [facility]* Diagnosis Encounter for screening mammogram for malignant neoplasm of breast Other screening mammogram [facility]* Diagnosis Venous (peripheral) insufficiency- Primary Unspecified venous (peripheral) insufficiency documented in this encounter [facility] course Narrative No data available for this section [facility] Hospital Discharge instructions No data available for this section [facility] Hospital Discharge instructions Additional Instructions Please follow-up with your crm marketing manager.[facility] Work Phone: Progress note No data available for this section [facility] Progrujw note Author Jeovanny Moore [facility] Note Date/Time July 29, 2024 11:27 am [facility] [address] [place] [address] OFFICE VISIT Date of Service: 07/29/24 MR#: [id number] Acct: [id number] Name: KELLI MONROY Rep #: [id number] : 1950 Provider: Dr. Nato Moore, Age/Sex: 74/F Location: [email or web address] Status: Signed Intake Vital Signs 06/30/24 11:27 [...] (Fainted at doctor's office ) [facility] Medical History Episode of syncope Influenza B Acute pharyngitis Burn of right upper extremity Atherosclerosis of coronary artery of [place] heart without angina pectoris Fibromyalgia Menopausal hot [...] Admin Location Dispensed Lot Number Expiration Date [facility] Operating Table Assembler 20 mg intra-articular Right Knee 2 mL [id number] 06/27/25 [address]-6 [employer] Supplemental Info 08/13/2023 x-ray right knee on disc from [facility] moderate medial joint space narrowing severe [...] Cosigner Signature: Date (if applicable) CC: ~ [facility] Work Phone: Progress note Author Anthony Mckeon [facility] Note Date/Time November 18, 2024 9:10am [facility] [address] [place] [address] OFFICE VISIT Date of Service: 11/17/24 MR#: [id number] Acct: [id number] Patient: KELLI MONROY Rep #: [id number] : 1950 Provider: Dr. Gabi Mckeon MD Age/Sex: 74/F Location: [facility] Status: Signed Intake Vital Signs 09/15/24 10:21 11/10/24 13:02 11/17/24 09:21 Height 5 ft 4 in 5 ft 4 in 5 ft 4 in Weight: 149 lb 13 oz BMI 25.7 BP 148/70 H Blood Pressure Location Lt brachial Position Sitting Respiration 17 Pulse 75 Pulse Source Monitor Temp 97.8 F Temp Source Temporal Pulse Oximetry (%) 98 Oxygen Delivery Method room air Intake Visit Reasons: B12 inject Chief Complaint: Allergies duloxetine (From Cymbalta) Adverse Reaction (Mild, Verified 11/10/24 13:06) dizziness Have you fallen in the past year?: Yes Office Meds cyanocobalamin (vitamin B-12) 1,000 mcg/mL injection solution Performing Provider: Anthony Mckeon MD Performing Location: [facility] Administered by: Corry Mckeon on 11/17/24 09:23 Dose Route Admin Location Dispensed Lot Number Expiration Date Pack age NDC NDC Operating Table Assembler 1,000 mcg IM left deltoid 1 mL [id number] 06/22/26 26327-021-31 [id number] [employer] Comments: The patient presents for B12 injection for treatment of fatigue. She has fatigue. Her last B12 injection was of benefit for fatigue. The patient is awake and alert. B12 1000mcg IM was administered today. There were no complications. Assessment and Plan Assessment and Plan (1) Fatigue: Status: Acute Orders: Orders Vitamin B12 11/17/24 R53.83 - Other fatigue Clinical Quality Measures Falls Risk Screening/Assistive Devices Have you fallen in the past year?: Yes 11/18/24 0910 <Electronically signed by Anthony castro MD> Date _ Anthony Mckeon MD Cosigner Signature: Date (if applicable) CC: ~ [facility] Work Phone: Progress note Author Jeovanny Moore [facility] Note Date/Time November 23, 2024 11 :15am [facility] [address] [place] [address] [address] [place] [address] OFFICE VISIT Date of Service: 11/23/24 MR#: [id number] Acct: [id number] Name: KELLI MONROY Rep #: [id number] : 1950 Provider: Dr. 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 Required: No Accompanied by: Self Is patient in pain?: Yes (right posterior knee and calf) Pain scale (1-10): 5 Allergies duloxetine (From Cymbalta) Adverse Reaction (Mild, Verified 11/23/24 10:32) dizziness Medications ?Medication ?Instructions ?Recorded ?Confirmed ?Type acetaminophen 500 mg tablet 1,000 mg PO BID PRN Pain 0 06/10/23 11/23/24 History (Tylenol Extra Strength) cyanocobalamin (vitamin B-12) 100 mcg subcut QMONTH 11/23/24 History 1,000 mcg/mL injection solution cholecalciferol (vitamin D3) 1,250 1,250 mcg PO QWEEK #4 caps 09/23/24 11/23/24 Rx mcg (50,000 unit) capsule tramadol 50 mg tablet 50 mg PO Q4H PRN PRN Pain 3 days 11/21/24 11/23/24 Rx #20 tabs Have you fallen in the past year?: No PFSH Medical History Episode of syncope Influenza B Acute pharyngitis Burn of right upper extremity Atherosclerosis of coronary artery of [place] heart without angina pectoris Fibromyalgia Menopausal hot [...] made by me, Dr. Jeovanny Moore, DO 11/23/24 08. Part of today?s visit was documented by [ ], acting as scribe. KELLI MONROY is a 74 year old F medical history significant for hypertension, mitral valve prolapse, hyperlipidemia, right breast cancer status post lobectomy, brief chemotherapy, radiation therapy, fever of unknown origin, fibromyalgia, history of emotional stress due to domestic issues, daytime somnolence, COPD, here today for right knee pain. Using walker last few severe pain. Recent ED visit. Tramadol slightly helpful. Continues to use ice that is helpful short term. Reports deep, dull, or burning pain of posterior knee and lateral lower extremity to ankle. Right calf tightness with bending at knee. Pain overall worsened after completing therapy. Denies numbess or tingling. At the patient's last appointment she was finished with physical therapy but she continued with the exercises and stretches on her own at home. This weekend the pain was much worse. She sees Nahomi Peterson as her crm marketing manager. 11/21/2024 ER visit for knee pain: X-rays were taken Doppler ultrasound negative for DVT was given oral tramadol. 10/31/2024 visit:here today for right knee pain. Patient states she has been having problems with the knee and she is unsure if she did something to it during physical therapy. She describes the pain in the posterior lateral knee and she feels it down into the posterior lower leg all the way to the top of herfoot. . She states it does not hurt to touch or rub but if she flexes the knee she feels a lot of pain in the posterior knee. She states it feels as if something is really tight and she gets a dull, deep pain in the anterior lateralaspect of the knee and into the lower leg. She states she didn't have this much discomfort before physical therapy. She states she has finished physical therapy. She takes Tylenol for the pain. She sees a neurologist and she was prescribed lyrica for the neuropathy. She denies any new falls or injuries to the knee. Plan:Patient is here today for continued right knee pain. Of note her knee itself is actually doing pretty good her medial sided knee pain as pretty much resolved she did have some physical therapy and this caused some irritation of her biceps femoris as well as her right lateral gastroc and peroneal areas. I reviewed her previous knee x-rays that were taken and she does have severe knee arthritis. I explained to her the knee could cause pain down into the lower leg but usually only to mid leg and on the way to the foot and the neuropathy could be causing her some pain into the foot and up into the lower leg as well. However most likely she might have inflame some of her soft tissue with the exercises she was doing explained that she could have pulled her gastrocnemius musculature if she was tight and started doing physical therapy and stretched them more than normal. Recommend she continue to stretch particularly the gastroc and the biceps femoris and hamstrings more then work on strengthening, apply topical anti-inflammatory such as Voltaren Gel and take an oral anti- inflammatory. She can apply heat to the area and then stretch and apply ice after to get as much benefit out of the stretches. 09/07/2024 visit: here today for right knee steroid injection. 09/05/2024 visit: here today for right knee. Patient states that the pain in her right knee has gotten worse. She has done 10 sessions of physical therapy at [facility]. Patient states that the physical therapy isn't helping, and it's making the pain worse. When she bends her knee back wards, it feels like the muscle is swollen, or tight. She gets a dull ache by her mcgarry bone, and between her ankle. Patient states bending the knee backwards is the worse thing for her to do. She can't lift her knee up high, because the pain hurts so bad. She states the pain goes straight down the leg. Patient states that her calf gets very tight sometimes. She denies having any injury to the knee. Plan:Patient is here today for increased right knee pain after doing physical therapy. Patient did not have any recent injury to the knee. I spoke with patient that I reviewed her xrays from [facility] from last years versusthis year and her arthritis has progressed. I spoke with patient that the treatment options for knee arthritis is steroid injection, viscosupplementation injections, physical therapy, bracing or a TKA. I spoke with patient that if shecan't get her symptoms controlled with the conservative treatments we would thenconsider doing a total knee replacement. I would not recommend she continue withPT if she feels it is worsening her pain but we could try aquatic therapy if shewould like. Patient would like to continue with PT but is going to talk with them to try and go slower with PT and see if doing less helps with her pain. I spoke with patient that since her last steroid injection was in July of last year we could do one today to see if that also helps with the inflammation. Patient thinks she may have had a recent injection with [facility] therefore we will go ahead and request the records from them and call her to [facility] know once we have received them to let her know when she can have a steroid injection. 06/24/2024 visit:74 year old F with medical history significant for but not limited to episodes of syncope, fibromyalgia, polyneuropathy, cervical degenerative disc disease, hyperparathyroidism, paresthesias, chronic back pain,GERD, patient of [facility] who has known arthritis in her knee was hadmultiple steroid and gel injections and was planning to have a total knee arthroplasty however continues to have fever of unknown origin that is continually being worked up . here today to discuss possible gel injections in her right knee. She last had an injection with [facility] about a year ago which she believes [...] knee. The only steroid injection she had waslat year in July. She does occasionally still the get the fever but it she did have a work up done by an infectious disease doctor in [place] who then referred her to Dr. Fung at [facility] who also did a work up but has not found out the cause so they released her. She denies physical therapy. Ortho Exam General General: Yes no acute distress and Yes well groomed Neurologic: Yes alert and Yes oriented x3 Psychologic: Yes reasonable and appropriate Right Wrist/Hand WRIST: slight ulnar deviation to index and middle fingers bilaterally Right Knee Skin/Wound: Yes CDI, No erythema, No ecchymosis and No swelling [...] Lateral Translation: No Patella Grind: No KNEE: no signs of infection no joint effusion Supplemental Info 09/05/2024 x-ray right knee: Severe medial compartment narrowing and subchondral cystic changes noted of the medial femoral condyle there is spurring noted medial femoral condyle medial tibial plateau moderate spurring of the trochlea subchondral cystic changes of the medial patellar facet 04/16/2024 CT lumbar spine: Moderate degenerative changes including degenerative disc disease and facet arthropathy suspected mild spinal stenosis L2-L3 L4-L5 due to posterior disc bulges 08/13/2023 x-ray right knee on disc from [facility] moderate medial joint space narrowing severe on flexion view. Moderate patellofemoral arthrosis. Coding Level of Care Code Off vis,est,level 4 Diagnoses Primary osteoarthritis of right knee M17.11 Osteoarthritis type: primary Assessment and Plan Assessment and Plan (1) Osteoarthritis of right knee: Status: Acute Qualifiers: Osteoarthritis type: primary Qualified Code(s): M17.11 - Unilateral primary osteoarthritis, right knee Plan Patient is here today for continued right knee pain after she was seen in the ER. I explained that there are no signs of infection and she did have a negativedoppler US. she does have severe arthritis. She is having an arthritic flare-up and these can occur randomly depending on activity and amount of exercising. Atthis point in time after exhausting nonsurgical treatment options we can proceedwith right knee TKA. Explained that with her fibromyalgia and other co-morbidities there is an increased risk including having pain after the procedure. Due to living alone she states she would need to go to rehab prior toreturning home, if she were to proceed with a TKA. Risks, benefits and alternatives of surgery reviewed including but not limited to bleeding, infection, nerve, artery and/or tissue damage, fracture, VTE, mechanical feel ofthe knee, continued pain, stiffness and expected post-operative course. I did explain the Iovera treatment procedure that is an optional procedure that is offered in office. Recommend she continue ambulating with a walker to avoid any falls. She would like to proceed with the right knee TKA. She will need crm marketing manager clearance and she sees Nahomi Peterson. She will need medical clearance from her PCP and crm marketing manager in addition to a CT scan for MAKOplasty She will need to be an admission for rehab placement after she does live alone and does have multiple medical comorbidities Tentative surgery date January 03, 2025 admission with rehab. Follow up in an as needed basis or sooner if pain, swelling, numbness or associated symptoms, or concerns develop. All questions answered. Patient in agreement of plan. Clinical Quality Measures Falls Risk Screening/Assistive Devices Have you fallen in the past year?: No 11/23/24 3472 <Electronically signed by Jeovanny hoffman DO> Date _ Jeovanny Moore DO Cosigner Signature: Date (if applicable) CC: ~ [place] [employer] Work Phone: Reason for referral (narrative)* Diagnostic Procedure Only (Routine) - Authorized Specialty Diagnoses / Procedures Referred By Contguicho t Referred To Contact MOLECULAR & FUNCTIONAL IMAGING Diagnoses Fever, unspecified fever cause Malignant neoplasm of upper-inner quadrant of right breast in female, 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, estrogen and progesterone receptor positive (HCC) Bone pain Procedures NM BONE WHOLE BODY BONE &/JOINT IMAGING WHOLE BODY Robert Weber DO [address] [place] [address] [facility] [address] [place] [address] Referral ID Status Reason Start Date Expiration Date Visits Requested Visits Authorized [id number] Authorized Auto-Generat ed Referral 04/01/2022 05/01/2023 1 1 * Outpatient Procedure (Routine) - Authorized Specialty Diagnoses / Procedures Referred By Contac t Referred To Contact [facility] Diagnoses Fever, unspecified fever cause Leg swelling Procedures US LEG VEIN DVT EMERITA VAS LAB DUP-SCAN XTR VEINS COMPLETE BILATERAL STUDY Robert Weber DO [address] [place] [address] [facility] [address] [place] [address] Referral ID Status Reason Start Date Expiration Date Visits Requested Visits Authorized [id number] Authorized Auto-Generat ed Referral 04/01/2022 04/01/2023 1 1 [facility] for referral (narrative)* Diagnostic Procedure Only (Routine) - Authorized Specialty Diagnoses / Procedures Referred By Contac t Referred To Contact BR IMAGING Diagnoses Personal history of malignant neoplasm of breast Encounter for screening mammogram for high-risk patient Procedures DESIREE SCREENING W MIC SCREENING DIGITAL BREAST TOMOSYNTHESIS BI SCREENING MAMMOGRAPHY BI 2-VIEW BREAST INC CAD Deyanira Mendez APRN.CNP [address] [place] [address] [facility] [address] [place] [address] Referral ID Status Reason Start Date Expiration Date Visits Requested Visits Authorized [id number] Authorized Auto-Generat ed Referral 11/21/2022 12/21/2023 1 1 [facility] for referral (narrative)* Diagnostic Procedure Only (Routine) - Closed Specialty Diagnoses / Procedures Referred By Contac t Referred To Contact BR IMAGING Diagnoses Encounter for screening mammogram for malignant neoplasm of breast Procedures DESIREE SCREENING W MIC SCREENING BREAST DGTL MIC UNI/BILAT ADD ON SCREENING MAMMOGRAPHY BI 2-VIEW BREAST INC CAD Prisca Rivera MD [address] [place] [address] [facility] [address] [place] [address] Referral ID Status Reason Start Date Expiration Date V isits Requested Visits Authorized [id number] Closed Auto-Generate d Referral 01/28/2021 02/27/[address] [facility] for referral (narrative)* Diagnostic Procedure Only (Routine) [...] Robert Weber DO [address] [place] [address] Molecular [facility] Functional Imaging [address] [place] [address] Referral ID Status Reason Start Date Expiration Date V isits Requested Visits Authorized [id number] Closed Auto-Generate d Referral 04/01/2022 05/01/[address] [facility] for referral (narrative)* Diagnostic Procedure Only (Routine) - Authorized Specialty Diagnoses / Procedures Referred By Jessica monique Referred To Contact BR IMAGING Diagnoses Encounter for screening mammogram for malignant neoplasm of breast Procedures DESIREE SCREENING W MIC SCREENING DIGITAL BREAST TOMOSYNTHESIS BI SCREENING MAMMOGRAPHY BI 2-VIEW BREAST INC CAD Prisca Rivera MD [address] [place] [address] [facility] [address] [place] [address] Referral ID Status Reason Start Date Expiration Date Visits Requested Visits Authorized [id number] Authorized Auto-Generat ed Referral 4 02/11/2025 1 1 [facility] for referral (narrative)No reason for referral information availableWCosho[facility] Work Phone: Reason for visit Narrative* Diagnostic Procedure Only (Routine) - Closed Specialty Diagnoses / Procedures Referred By Jessica t Referred To Contact BR IMAGING Diagnoses Encounter for screening mammogram for malignant neoplasm of breast Procedures DESIREE SCREENING W MIC SCREENING BREAST DGTL MIC UNI/BILAT ADD ON SCREENING MAMMOGRAPHY BI 2-VIEW BREAST INC CAD Prisca Rivera MD [address] [place] [address] [facility] [address] [place] [address] Referral ID Status Reason Start Date Expiration Date V isits Requested Visits Authorized [id number] Closed Auto-Generate d Referral 01/28/2021 02/27/2022 1 1 [facility] for visit Narrative* Diagnostic Procedure Only (Routine) [...] BODY Robert Weber DO [address] [place] [address] Molecular [facility] [address] [place] [address] Referral ID Status Reason Start Date Expiration Date V isits Requested Visits Authorized [id number] Closed Auto-Generate d Referral 04/01/2022 05/01/2023 1 1 [facility] for visit Narrative* Diagnostic Procedure Only (Routine) - Closed Specialty Diagnoses / Procedures Referred By Jessica monique Referred To Contact BR IMAGING Diagnoses Personal history of malignant neoplasm of breast Encounter for screening mammogram for high-risk patient Procedures DESIREE SCREENING W MIC SCREENING DIGITAL BREAST TOMOSYNTHESIS BI SCREENING MAMMOGRAPHY BI 2-VIEW BREAST INC CAD Deyanira Mendez APRN.AUTOMOTIVE SERVICE ASSISTANT [address] [place] [address] [facility] [address] [place] [address] Referral ID Status Reason Start Date Expiration Date V isits Requested Visits Authorized [id number] Closed Auto-Generate d Referral 11/21/2022 12/21/2023 [facility] Procedure Only (Routine) - Closed Specialty Diagnoses / Procedures Referred By Jessica t Referred To Contact BR IMAG[facility] Diagnoses Encounter for screening mammogram for malignant neoplasm of breast Procedures DESIREE SCREENING W MIC SCREENING DIGITAL BREAST TOMOSYNTHESIS BI SCREENING MAMMOGRAPHY BI 2-VIEW BREAST INC CAD Prisca Rivera MD [address] [place] [address] [facility] [address] [place] [address] Referral ID Status Reason Start Date Expiration Date V isits Requested Visits Authorized [id number] Closed Auto-Generate d Referral 01/13/2024 02/11/2025 1 1 [facility] Chief Complaint and Reason for Visit Chief [...] right knee July 13, 2 025 10:27am Fatigue July 14, 2024 10:38 [...] m Osteoarthritis of right knee July 13, 10:27am Chief Complaint Admit Date CHRONIC BURNING [...] 11:27a m Osteoarthritis of right knee July 13 10:27am Fatigue July 14, 2024 10:38 am Osteoarthritis of right knee July 22 025 11:12am Osteoarthritis of right knee July 29 025 11:07am Chief Complaint Admit Date BACK April 16, 2024 5:02pm General illness [...] RIGHT KNEE July 29, 2024 11:07 am PALPITATIONS August 13, 2024 6:33 pm Reason for Visit Admit Date Cervical radiculopathy May 02, 2024 9:25am Fatigue [...] 11:27a m Osteoarthritis of right knee July 13 10:27am Fatigue July 14, 2024 10:38 am Osteoarthritis of right knee July 22 025 11:12am Osteoarthritis of right knee July 29 025 11:07am Chief Complaint Admit Date General illness April 18, 2024 12:13pm CERVICAL [...] RIGHT KNEE July 29, 2024 11:07 am PALPITATIONS August 13, 2024 6:33 pm B12 inject August 15, 2024 9:40 am Chief Complaint Admit Date CERVICAL SPINE May 02, 2024 9:2 5am [...] RIGHT KNEE July 29, 2024 11:07 am PALPITATIONS August 13, 2024 6:33 pm B12 inject August 15, 2024 9:40 am 2 M FU August 30, 2024 10:57 am Reason for Visit Admit Date Cervical radiculopathy May 02, 2024 9:25am Fatigue [...] of right knee July 29 025 11:07am Fatigue August 15, 2024 9:40 am Anemia August 30, 2024 10:57 am Chief Complaint Admit Date B12 inject May 10, 2024 10: 33am [...] RIGHT KNEE July 29, 2024 11:07 am PALPITATIONS August 13, 2024 6:33 pm B12 inject August 15, 2024 9:40 am 2 M FU August 30, 2024 10:57 am RIGHT KNEE September 05, 2024 3:45 pm Room 1 September 05, 2024 3:58 pm Reason for Visit Admit Date Fatigue May 10, 2024 10: 33am Fatigue [...] 025 11:12am Osteoarthritis of right knee July 29, 025 11:07am Fatigue August 15, 2024 9:40 am Anemia August 30, 2024 10:57 am Arthritis August 30, 2024 10:57 am Burning mouth syndrome August 30, 2024 10 :57am Fatigue August 30, 2024 10:57 am Fibromyalgia August 30, 2024 10:57 am Polyneuropathy August 30, 2024 10:57 am Reason for Visit Admit Date Fatigue May 10, 2024 10: 33am Fatigue [...] 11:27a m Osteoarthritis of right knee July 13 10:27am Fatigue July 14, 2024 10:38 am Osteoarthritis of right knee July 22 11:12am Osteoarthritis of right knee July 29 025 11:07am Fatigue August 15, 2024 9:40 am Anemia August 30, 2024 10:57 am Arthritis August 30, 2024 10:57 am Burning mouth syndrome August 30, 2024 10 :57am Fatigue August 30, 2024 10:57 am Fibromyalgia August 30, 2024 10:57 am Polyneuropathy August 30, 2024 10:57 am Fibromyalgia September 05, 2024 3:45 pm Osteoarthritis of right knee September 05, 2024 3:45pm Polyneuropathy September 05, 2024 3:45 pm Chief Complaint Admit Date B12 inject May 10, 2024 10: 33am [...] RIGHT KNEE July 29, 2024 11:07 am PALPITATIONS August 13, 2024 6:33 pm B12 inject August 15, 2024 9:40 am 2 M FU August 30, 2024 10:57 am RIGHT KNEE September 05, 2024 3:45 pm Room 1 September 05, 2024 3:58 pm RIGHT KNEE September 07, 2024 8:10 am Chief Complaint Admit Date B12 inject June 09, 2024 1:0 6pm RIGHT KNEE June 24, 2024 9:26am 3 M FU June 30, 2024 11:27a m E-ORDER June 30, 2024 12:30p m RIGHT KNEE July 13, 2024 10:27 am B12 inject July 14, 2024 10:38 am RIGHT KNEE July 22, 2024 11:12 am RIGHT KNEE July 29, 2024 11:07 am PALPITATIONS August 13, 2024 6:33 pm B12 inject August 15, 2024 9:40 am 2 M FU August 30, 2024 10:57 am RIGHT KNEE September 05, 2024 3:45 pm Room 1 September 05, 2024 3:58 pm RIGHT KNEE September 07, 2024 8:10 am B12 September 15, 2024 9:59 am Reason for Visit Admit Date Fatigue June 09, 2024 1:0 6pm Osteoarthritis [...] of right knee July 29 025 11:07am Fatigue August 15, 2024 9:40 am Anemia August 30, 2024 10:57 am Arthritis August 30, 2024 10:57 am Burning mouth syndrome August 30, 2024 10 :57am Fatigue August 30, 2024 10:57 am Fibromyalgia August 30, 2024 10:57 am Polyneuropathy August 30, 2024 10:57 am Fibromyalgia September 05, 2024 3:45 pm Osteoarthritis of right knee September 05, 2024 3:45pm Polyneuropathy September 05, 2024 3:45 pm Fibromyalgia September 07, 2024 8:10 am Osteoarthritis of right knee September 07, 2024 8:10am Polyneuropathy September 07, 2024 8:10 am Chief Complaint Admit Date RIGHT KNEE June 24, 2024 9:26am 3 M FU June 30, 2024 11:27a m E-ORDER June 30, 2024 12:30p m RIGHT KNEE July 13, 2024 10:27 am B12 inject July 14, 2024 10:38 am RIGHT KNEE July 22, 2024 11:12 am RIGHT KNEE July 29, 2024 11:07 am PALPITATIONS August 13, 2024 6:33 pm B12 inject August 15, 2024 9:40 am 2 M FU August 30, 2024 10:57 am RIGHT KNEE September 05, 2024 3:45 pm Room 1 September 05, 2024 3:58 pm RIGHT KNEE September 07, 2024 8:10 am B12 September 15, 2024 9:59 am B12 inject October 17, 2024 8: 23am Reason for Visit Admit Date Osteoarthritis of right knee June 24 9:26am Arthritis June 30, 2024 11:27a m Burning mouth syndrome June 30, 2024 11: 27am Dry mouth June 30, 2024 11:27a m Fatigue June 30, 2024 11:27a m Fibromyalgia June 30, 2024 11:27a m Neck pain June 30, 2024 11:27a m Polyneuropathy June 30, 2024 11:27a m Osteoarthritis of right knee July 13 10:27am Fatigue July 14, 2024 10:38 am Osteoarthritis of right knee July 22 11:12am Osteoarthritis of right knee July 29 11:07am Fatigue August 15, 2024 9:40 am Anemia August 30, 2024 10:57 am Arthritis August 30, 2024 10:57 am Burning mouth syndrome August 30, 2024 10 :57am Fatigue August 30, 2024 10:57 am Fibromyalgia August 30, 2024 10:57 am Polyneuropathy August 30, 2024 10:57 am Fibromyalgia September 05, 2024 3:45 pm Osteoarthritis of right knee September 05, 2024 3:45pm Polyneuropathy September 05, 2024 3:45 pm Fibromyalgia September 07, 2024 8:10 am Osteoarthritis of right knee September 07, 2024 8:10am Polyneuropathy September 07, 2024 8:10 am Fatigue September 15, 2024 9:59 am Fatigue October 17, 2024 8: 23am Chief Complaint Admit Date RIGHT KNEE July 13, 2024 10:27 am B12 inject July 14, 2024 10:38 am RIGHT KNEE July 22, 2024 11:12 am RIGHT KNEE July 29, 2024 11:07 am PALPITATIONS August 13, 2024 6:33 pm B12 inject August 15, 2024 9:40 am 2 M FU August 30, 2024 10:57 am RIGHT KNEE September 05, 2024 3:45 pm Room 1 September 05, 2024 3:58 pm RIGHT KNEE September 07, 2024 8:10 am B12 September 15, 2024 9:59 am B12 inject October 17, 2024 8: 23am RIGHT KNEE October 31, 2024 10:56am Reason for Visit Admit Date Osteoarthritis of right knee July 13 10:27am Fatigue July 14, 2024 10:38 am Osteoarthritis of right knee July 22 11:12am Osteoarthritis of right knee July 29 11:07am Fatigue August 15, 2024 9:40 am Anemia August 30, 2024 10:57 am Arthritis August 30, 2024 10:57 am Burning mouth syndrome August 30, 2024 10 :57am Fatigue August 30, 2024 10:57 am Fibromyalgia August 30, 2024 10:57 am Polyneuropathy August 30, 2024 10:57 am Fibromyalgia September 05, 2024 3:45 pm Osteoarthritis of right knee September 05, 2024 3:45pm Polyneuropathy September 05, 2024 3:45 pm Fibromyalgia September 07, 2024 8:10 am Osteoarthritis of right knee September 07, 2024 8:10am Polyneuropathy September 07, 2024 8:10 am Fatigue September 15, 2024 9:59 am Fatigue October 17, 2024 8: 23am Chief Complaint Admit Date RIGHT KNEE July 22, 2024 11:12 am RIGHT KNEE July 29, 2024 11:07 am PALPITATIONS August 13, 2024 6:33 pm B12 inject August 15, 2024 9:40 am 2 M FU August 30, 2024 10:57 am RIGHT KNEE September 05, 2024 3:45 pm Room 1 September 05, 2024 3:58 pm RIGHT KNEE September 07, 2024 8:10 am B12 September 15, 2024 9:59 am B12 inject October 17, 2024 8: 23am RIGHT KNEE October 31, 2024 10:56am Discuss Lyrica November 10, 2024 12:59pm Reason for Visit Admit Date Osteoarthritis of right knee July 22, 025 11:12am Osteoarthritis of right knee July 29 11:07am Fatigue August 15, 2024 9:40 am Anemia August 30, 2024 10:57 am Arthritis August 30, 2024 10:57 am Burning mouth syndrome August 30, 2024 10 :57am Fatigue August 30, 2024 10:57 am Fibromyalgia August 30, 2024 10:57 am Polyneuropathy August 30, 2024 10:57 am Fibromyalgia September 05, 2024 3:45 pm Osteoarthritis of right knee September 05, 2024 3:45pm Polyneuropathy September 05, 2024 3:45 pm Fibromyalgia September 07, 2024 8:10 am Osteoarthritis of right knee September 07, 2024 8:10am Polyneuropathy September 07, 2024 8:10 am Fatigue September 15, 2024 9:59 am Fatigue October 17, 2024 8: 23am Osteoarthritis of right knee October [id number] 10:56am Arthritis November 10, 2024 12:59pm Burning mouth syndrome November 10 12:59pm Fatigue November 10, 2024 12:59pm Fibromyalgia November 10, 2024 12:59pm Polyneuropathy November 10, 2024 12:59pm Chief Complaint Admit Date RIGHT KNEE July 29, 2024 11:07 am PALPITATIONS August 13, 2024 6:33 pm B12 inject August 15, 2024 9:40 am 2 M FU August 30, 2024 10:57 am RIGHT KNEE September 05, 2024 3:45 pm Room 1 September 05, 2024 3:58 pm RIGHT KNEE September 07, 2024 8:10 am B12 September 15, 2024 9:59 am B12 inject October 17, 2024 8: 23am RIGHT KNEE October 31, 2024 10:56am Discuss Lyrica November 10, 2024 12:59pm B12 inject November 17, 2024 8:50am knee November 21, 2024 8:14am Reason for Visit Admit Date Osteoarthritis of right knee July 29 11:07am Fatigue August 15, 2024 9:40 am Anemia August 30, 2024 10:57 am Arthritis August 30, 2024 10:57 am Burning mouth syndrome August 30, 2024 10 :57am Fatigue August 30, 2024 10:57 am Fibromyalgia August 30, 2024 10:57 am Polyneuropathy August 30, 2024 10:57 am Fibromyalgia September 05, 2024 3:45 pm Osteoarthritis of right knee September 05, 2024 3:45pm Polyneuropathy September 05, 2024 3:45 pm Fibromyalgia September 07, 2024 8:10 am Osteoarthritis of right knee September 07, 2024 8:10am Polyneuropathy September 07, 2024 8:10 am Fatigue September 15, 2024 9:59 am Fatigue October 17, 2024 8: 23am Osteoarthritis of right knee October [id number] 10:56am Arthritis November 10, 2024 12:59pm Burning mouth syndrome November 10, 025 12:59pm Fatigue November 10, 2024 12:59pm Fibromyalgia November 10, 2024 12:59pm Polyneuropathy November 10, 2024 12:59pm Fatigue November 17, 2024 8:50am Chief Complaint Admit Date RIGHT KNEE July 29, 2024 11:07 am PALPITATIONS August 13, 2024 6:33 pm B12 inject August 15, 2024 9:40 am 2 M FU August 30, 2024 10:57 am RIGHT KNEE September 05, 2024 3:45 pm Room 1 September 05, 2024 3:58 pm RIGHT KNEE September 07, 2024 8:10 am B12 September 15, 2024 9:59 am B12 inject October 17, 2024 8: 23am RIGHT KNEE October 31, 2024 10:56am Discuss Lyrica November 10, 2024 12:59pm B12 inject November 17, 2024 8:50am knee November 21, 2024 8:14am RIGHT KNEE November 23, 2024 10 :24am Reason for Visit Admit Date Osteoarthritis of right knee July 29, 2 025 11:07am Fatigue August 15, 2024 9:40 am Anemia August 30, 2024 10:57 am Arthritis August 30, 2024 10:57 am Burning mouth syndrome August 30, 2024 10 :57am Fatigue August 30, 2024 10:57 am Fibromyalgia August 30, 2024 10:57 am Polyneuropathy August 30, 2024 10:57 am Fibromyalgia September 05, 2024 3:45 pm Osteoarthritis of right knee September 05, 2024 3:45pm Polyneuropathy September 05, 2024 3:45 pm Fibromyalgia September 07, 2024 8:10 am Osteoarthritis of right knee September 07, 2024 8:10am Polyneuropathy September 07, 2024 8:10 am Fatigue September 15, 2024 9:59 am Fatigue October 17, 2024 8: 23am Osteoarthritis of right knee October [id number] 10:56am Arthritis November 10, 2024 12:59pm Burning mouth syndrome November 10 025 12:59pm Fatigue November 10, 2024 12:59pm Fibromyalgia November 10, 2024 12:59pm Polyneuropathy November 10, 2024 12:59pm Fatigue November 17, 2024 8:50am Osteoarthritis of right knee November 10:24am Family History No Family History Records Found [...] Yes October 01, 2013 4:16pm Power of Sales Driver Yes October 01 4:16pm Advance Directive Response Recorded Date/ Time Living Will No June 10, 2021 7:08pm Power of Sales Driver No June 10 7:08pm Advance Directive Response Recorded Date/ Time Living Will No June 10, 2021 6:08pm Power of Sales Driver No June 10 6:08pm Advance Directive Response Recorded Date/ Time Living Will No March 09 10:37am Power of Sales Driver No March 09, 2023 10:37am Advance Directive Response Recorded Date/ Time Living Will No March 09 11:37am Power of Sales Driver No March 09, 2023 11:37am Advance Directive Response Recorded Date/ Time Living Will No June 10, 2021 6:08pm Power of Sales Driver No June 10 6:08pm Living Will No April 12 025 3:31pm Power of Sales Driver No April 12, 2024 3:31pm Living Will Yes April 18 12:37pm Power of Sales Driver Yes April 18, 2024 12:37pm Name of Medical Power of Sales Driver [place] April 18, 2024 12:37pm Living Will Yes March 12 9:08pm Power of Sales Driver Yes March 12, 2024 9:08pm Name of Medical Power of Sales Driver Devaughn Sargent, son March 12, 2024 9:08pm Living Will No April 16 5:21pm Power of Sales Driver No April 16, 2024 5:21pm Advance Directive Response Recorded Date/ Time Living Will No June 10, 2021 7:08pm Do you have a Healthcare Pow er of Sales Driver? No June 10, 2021 7:08pm Living Will No April 12 4:31pm Do you have a Healthcare Pow er of Sales Driver? No April 12, 2024 4:31pm Living Will Yes April 18 1:37pm Do you have a Healthcare Pow er of Sales Driver? Yes April 18, 2024 1:37pm Name of Medical Power of Sales Driver [place] April 18, 2024 1:37pm Living Will Yes March 12 10:08pm Do you have a Healthcare Pow er of Sales Driver? Yes March 12, 2024 10:08pm Name of Medical Power of Sales Driver Devaughn Sargent, son March 12, 2024 10:08pm Living Will No April 16 6:21pm Do you have a Healthcare Pow er of Sales Driver? No April 16, 2024 6:21pm Advance Directive Response Recorded Date/ Time Living Will No April 12 4:31pm Do you have a Healthcare Pow er of Sales Driver? No April 12, 2024 4:31pm Living Will Yes April 18 1:37pm Do you have a Healthcare Pow er of Sales Driver? Yes April 18, 2024 1:37pm Name of Medical Power of Sales Driver [place] April 18, 2024 1:37pm Living Will Yes March 12 10:08pm Do you have a Healthcare Pow er of Sales Driver? Yes March 12, 2024 10:08pm Name of Medical Power of Sales Driver Devaughn Sargent, son March 12, 2024 10:08pm Living Will No April 16 6:21pm Do you have a Healthcare Pow er of Sales Driver? No April 16, 2024 6:21pm Advance Directive Response Recorded Date/ Time Living Will No April 12 4:31pm Do you have a Healthcare Power of Sales Driver? No April 12, 2024 4:31pm Living Will Yes April 18 1:37pm Do you have a Healthcare Power of Sales Driver? Yes April 18, 2024 1:37pm Name of Medical Power of Sales Driver [place] April 18, 2024 1:37pm Living Will No April 16 6:21pm Do you have a Healthcare Power of Sales Driver? No April 16, 2024 6:21pm Advance Directive Response Recorded Date/ Time Living Will Yes April 18 1:37pm Do you have a Healthcare Power of Sales Driver? Yes April 18, 2024 1:37pm Name of Medical Power of Sales Driver [place] April 18, 2024 1:37pm Do you have a Healthcare Power of Sales Driver? No August 13, 2024 8:06pm Living Will No April 16 6:21pm Do you have a Healthcare Power of Sales Driver? No April 16, 2024 6:21pm Advance Directive Response Recorded Date/ Time Living Will Yes April 18 1:37pm Do you have a Healthcare Power of Sales Driver? Yes April 18, 2024 1:37pm Name of Medical Power of Sales Driver [place] April 18, 2024 1:37pm Do you have a Healthcare Power of Sales Driver? No August 13, 2024 8:06pm Advance Directive Response Recorded Date/ Time Do you have a Healthcare Power of Sales Driver? No August 13, 2024 8:06pm Advance Directive Response Recorded Date/ Time Do you have a Healthcare Power of Sales Driver? No August 13, 2024 8:06pm Do you have a Healthcare Power of Sales Driver? No November 21, 2024 8:23am Health Concerns Infection Onset Date Last Indicated [...] or prosecute any alcohol or drug abuse patient.[facility] FoundationIn the event this information is protected by the Federal Confidentiality of Alcohol and Drug Abuse Patient Records regulations: The Federal rules restrict any use of the information to criminally investigate or prosecute any alcohol or drug abuse patient.[facility] FoundationIn the event this information is protected by the Federal Confidentiality of Alcohol and Drug Abuse Patient Records regulations: The Federal rules restrict any use of the information to criminally investigate or prosecute any alcohol or drug abuse patient.[facility] FoundationIn the event this information is protected by the Federal Confidentiality of Alcohol and Drug Abuse Patient Records regulations: The Federal rules restrict any use of the information to criminally investigate or prosecute any alcohol or drug abuse patient.[facility] FoundationIn the event this information is protected by the Federal Confidentiality of Alcohol and Drug Abuse Patient Records regulations: The Federal rules restrict any use of the information to criminally investigate or prosecute any alcohol or drug abuse patient.[facility] FoundationIn the event this information is protected by the Federal Confidentiality of Alcohol and Drug Abuse Patient Records regulations: The Federal rules restrict any use of the information to criminally investigate or prosecute any alcohol or drug abuse patient.[facility] FoundationIn the event this information is protected by the Federal Confidentiality of Alcohol and Drug Abuse Patient Records regulations: The Federal rules restrict any use of the information to criminally investigate or prosecute any alcohol or drug abuse patient.[facility] FoundationIn the event this information is protected by the Federal Confidentiality of Alcohol and Drug Abuse Patient Records regulations: The Federal rules restrict any use of the information to criminally investigate or prosecute any alcohol or drug abuse patient.[facility] FoundationIn the event this information is protected by the Federal Confidentiality of Alcohol and Drug Abuse Patient Records regulations: The Federal rules restrict any use of the information to criminally investigate or prosecute any alcohol or drug abuse patient.[facility] FoundationIn the event this information is protected by the Federal Confidentiality of Alcohol and Drug Abuse Patient Records regulations: The Federal rules restrict any use of the information to criminally investigate or prosecute any alcohol or drug abuse patient.[facility] FoundationIn the event this information is protected by the Federal Confidentiality of Alcohol and Drug Abuse Patient Records regulations: The Federal rules restrict any use of the information to criminally investigate or prosecute any alcohol or drug abuse patient.[facility] FoundationIn the event this information is protected by the Federal Confidentiality of Alcohol and Drug Abuse Patient Records regulations: The Federal rules restrict any use of the information to criminally investigate or prosecute any alcohol or drug abuse patient.[facility] FoundationIn the event this information is protected by the Federal Confidentiality of Alcohol and Drug Abuse Patient Records regulations: The Federal rules restrict any use of the information to criminally investigate or prosecute any alcohol or drug abuse patient.[facility] FoundationIn the event this information is protected by the Federal Confidentiality of Alcohol and Drug Abuse Patient Records regulations: The Federal rules restrict any use of the information to criminally investigate or prosecute any alcohol or drug abuse patient.[facility] FoundationIn the event this information is protected by the Federal Confidentiality of Alcohol and Drug Abuse Patient Records regulations: The Federal rules restrict any use of the information to criminally investigate or prosecute any alcohol or drug abuse patient.[facility] FoundationIn the event this information is protected by the Federal Confidentiality of Alcohol and Drug Abuse Patient Records regulations: The Federal rules restrict any use of the information to criminally investigate or prosecute any alcohol or drug abuse patient.[facility] FoundationIn the event this information is protected by the Federal Confidentiality of Alcohol and Drug Abuse Patient Records regulations: The Federal rules restrict any use of the information to criminally investigate or prosecute any alcohol or drug abuse patient.[facility] FoundationIn the event this information is protected by the Federal Confidentiality of Alcohol and Drug Abuse Patient Records regulations: The Federal rules restrict any use of the information to criminally investigate or prosecute any alcohol or drug abuse patient.[facility] FoundationIn the event this information is protected by the Federal Confidentiality of Alcohol and Drug Abuse Patient Records regulations: The Federal rules restrict any use of the information to criminally investigate or prosecute any alcohol or drug abuse patient.[facility] FoundationIn the event this information is protected by the Federal Confidentiality of Alcohol and Drug Abuse Patient Records regulations: The Federal rules restrict any use of the information to criminally investigate or prosecute any alcohol or drug abuse patient.[facility] FoundationIn the event this information is protected by the Federal Confidentiality of Alcohol and Drug Abuse Patient Records regulations: The Federal rules restrict any use of the information to criminally investigate or prosecute any alcohol or drug abuse patient.[facility] FoundationIn the event this information is protected by the Federal Confidentiality of Alcohol and Drug Abuse Patient Records regulations: The Federal rules restrict any use of the information to criminally investigate or prosecute any alcohol or drug abuse patient.[facility] FoundationIn the event this information is protected by the Federal Confidentiality of Alcohol and Drug Abuse Patient Records regulations: The Federal rules restrict any use of the information to criminally investigate or prosecute any alcohol or drug abuse patient.[facility] FoundationIn the event this information is protected by the Federal Confidentiality of Alcohol and Drug Abuse Patient Records regulations: The Federal rules restrict any use of the information to criminally investigate or prosecute any alcohol or drug abuse patient.[facility] FoundationIn the event this information is protected by the Federal Confidentiality of Alcohol and Drug Abuse Patient Records regulations: The Federal rules restrict any use of the information to criminally investigate or prosecute any alcohol or drug abuse patient.[facility] FoundationIn the event this information is protected by the Federal Confidentiality of Alcohol and Drug Abuse Patient Records regulations: The Federal rules restrict any use of the information to criminally investigate or prosecute any alcohol or drug abuse patient.[facility] FoundationIn the event this information is protected by the Federal Confidentiality of Alcohol and Drug Abuse Patient Records regulations: The Federal rules restrict any use of the information to criminally investigate or prosecute any alcohol or drug abuse patient.[facility] FoundationIn the event this information is protected by the Federal Confidentiality of Alcohol and Drug Abuse Patient Records regulations: The Federal rules restrict any use of the information to criminally investigate or prosecute any alcohol or drug abuse patient.[facility] FoundationIn the event this information is protected by the Federal Confidentiality of Alcohol and Drug Abuse Patient Records regulations: The Federal rules restrict any use of the information to criminally investigate or prosecute any alcohol or drug abuse patient.[facility] FoundationIn the event this information is protected by the Federal Confidentiality of Alcohol and Drug Abuse Patient Records regulations: The Federal rules restrict any use of the information to criminally investigate or prosecute any alcohol or drug abuse patient.[facility] FoundationIn the event this information is protected by the Federal Confidentiality of Alcohol and Drug Abuse Patient Records regulations: The Federal rules restrict any use of the information to criminally investigate or prosecute any alcohol or drug abuse patient.[facility] FoundationIn the event this information is protected by the Federal Confidentiality of Alcohol and Drug Abuse Patient Records regulations: The Federal rules restrict any use of the information to criminally investigate or prosecute any alcohol or drug abuse patient.[facility] FoundationIn the event this information is protected by the Federal Confidentiality of Alcohol and Drug Abuse Patient Records regulations: The Federal rules restrict any use of the information to criminally investigate or prosecute any alcohol or drug abuse patient.[facility] FoundationIn the event this information is protected by the Federal Confidentiality of Alcohol and Drug Abuse Patient Records regulations: The Federal rules restrict any use of the information to criminally investigate or prosecute any alcohol or drug abuse patient.[facility] FoundationIn the event this information is protected by the Federal Confidentiality of Alcohol and Drug Abuse Patient Records regulations: The Federal rules restrict any use of the information to criminally investigate or prosecute any alcohol or drug abuse patient.[facility] FoundationIn the event this information is protected by the Federal Confidentiality of Alcohol and Drug Abuse Patient Records regulations: The Federal rules restrict any use of the information to criminally investigate or prosecute any alcohol or drug abuse patient.[facility] FoundationIn the event this information is protected by the Federal Confidentiality of Alcohol and Drug Abuse Patient Records regulations: The Federal rules restrict any use of the information to criminally investigate or prosecute any alcohol or drug abuse patient.[facility] FoundationIn the event this information is protected by the Federal Confidentiality of Alcohol and Drug Abuse Patient Records regulations: The Federal rules restrict any use of the information to criminally investigate or prosecute any alcohol or drug abuse patient.[facility] FoundationIn the event this information is protected by the Federal Confidentiality of Alcohol and Drug Abuse Patient Records regulations: The Federal rules restrict any use of the information to criminally investigate or prosecute any alcohol or drug abuse patient.[facility] FoundationIn the event this information is protected by the Federal Confidentiality of Alcohol and Drug Abuse Patient Records regulations: The Federal rules restrict any use of the information to criminally investigate or prosecute any alcohol or drug abuse patient.[facility] FoundationIn the event this information is protected by the Federal Confidentiality of Alcohol and Drug Abuse Patient Records regulations: The Federal rules restrict any use of the information to criminally investigate or prosecute any alcohol or drug abuse patient.[facility] FoundationIn the event this information is protected by the Federal Confidentiality of Alcohol and Drug Abuse Patient Records regulations: The Federal rules restrict any use of the information to criminally investigate or prosecute any alcohol or drug abuse patient.[facility] FoundationIn the event this information is protected by the Federal Confidentiality of Alcohol and Drug Abuse Patient Records regulations: The Federal rules restrict any use of the information to criminally investigate or prosecute any alcohol or drug abuse patient.[facility] Reason for Visit (unrecogniz ed section and [...] Care Teams (unrecognized sec tion and content) Rolled Gold Plater Relationship Specialty Start Date End Date Angel Fuller MD [address] [place] [address] PCP - General Internal Medicine 05/06/18 Yue Bravo MD, [address] [place], [place] [id number] Physician Radiation Oncology 03/06/16 Rolled Gold Plater Relationship Specialty Start Date End Date Angel Fuller MD [address] [place] [address] PCP - General Internal Medicine 05/06/18 Yue Bravo MD, MD [address] [place], [place] [id number] Physician Radiation Oncology 03/06/16 Rolled Gold Plater Relationship Specialty Start Date End Date Angel Fuller MD [address] [place] [address] PCP - General Internal Medicine 05/06/18 Yue Bravo MDMD [address] [place] [address] Physician Radiation Oncology 03/06/16 Rolled Gold Plater Relationship Specialty Start Date End Date Angel Fuller MD [address] [place] [address] PCP - General Internal Medicine 05/06/18 Yue Bravo MD, [address] [place] [address] Physician Radiation Oncology 03/06/16 Rolled Gold Plater Relationship Specialty Start Date End Date Angel Fuller MD [address] [place] [address] PCP - General Internal Medicine 05/06/18 Yue Bravo MD, [address] [place] [address] Physician Radiation Oncology 03/06/16 Rolled Gold Plater Relationship Specialty Start Date End Date Angel Fuller MD [address] [place] [address] PCP - General Internal Medicine 05/06/18 Yue Bravo MD, [address] [place] [address] Physician Radiation Oncology 03/06/16 Rolled Gold Plater Relationship Specialty Start Date End Date Angel Fuller MD [address] [place] [address] PCP - General Internal Medicine 05/06/18 Yue Bravo MD, [address] [place] [address] Physician Radiation Oncology 03/06/16 Rolled Gold Plater Relationship Specialty Start Date End Date Angel Fuller MD [address] [place] [address] PCP - General Internal Medicine 05/06/18 Yue Bravo MD, [address] [place] [address] Physician Radiation Oncology 03/06/16 Rolled Gold Plater Relationship Specialty Start Date End Date Angel Fuller MD [address] [place] [address] PCP - General Internal Medicine 05/06/18 Yue Bravo MD, [address] [place] [address] Physician Radiation Oncology 03/06/16 Deyanira Mendez, LACE WINDER.AUTOMOTIVE SERVICE ASSISTANT [address] [place] [address] Hematology/Oncology 03/20/22 Rolled Gold Plater Relationship Specialty Start Date End Date Angel Fuller MD [address] [place] [address] PCP - General Internal Medicine 05/06/18 Yue Bravo MD, [address] [place] [address] Physician Radiation Oncology 03/06/16 Deyanira Mendez, LACE WINDER.AUTOMOTIVE SERVICE ASSISTANT [address] [place] [address] Hematology/Oncology 03/20/22 Rolled Gold Plater Relationship Specialty Start Date End Date Angel Fuller MD [address] [place] [address] PCP - General Internal Medicine 05/06/18 Yue Bravo MD, [address] [place] [address] Physician Radiation Oncology 03/06/16 Deyanira Mendez, LACE WINDER.AUTOMOTIVE SERVICE ASSISTANT [address] [place] [address] Hematology/Oncology 03/20/22 Rolled Gold Plater Relationship Specialty Start Date End Date Angel Fuller MD [address] [place] [address] PCP - General Internal Medicine 05/06/18 Yue Bravo MD, [address] [place] [address] Physician Radiation Oncology 03/06/16 Deyanira Mendez, LACE WINDER.AUTOMOTIVE SERVICE ASSISTANT [address] [place] [address] Hematology/Oncology 03/20/22 Rolled Gold Plater Relationship Specialty Start Date End Date Angel Fuller MD [address] [place] [address] PCP - General Internal Medicine 05/06/18 Yue Bravo MD, [address] [place] [address] Physician Radiation Oncology 03/06/16 Deyanira Mendez, LACE WINDER.AUTOMOTIVE SERVICE ASSISTANT [address] [place] [address] Hematology/Oncology 03/20/22 Rolled Gold Plater Relationship Specialty Start Date End Date Angel Fuller MD [address] [place] [address] PCP - General Internal Medicine 05/06/18 Yue Bravo MD, [address] [place] [address] Physician Radiation Oncology 03/06/16 Deyanira Mendez, LACE WINDER.AUTOMOTIVE SERVICE ASSISTANT [address] [place] [address] Hematology/Oncology 03/20/22 Irena Gonzalez, FLY FINISHER [address] [place] [address] [employer] Hematology/Oncology 04/16/22 Rolled Gold Plater Relationship Specialty Start Date End Date Angel Fuller MD [address] [place] [address] PCP - General Internal Medicine 05/06/18 Yue Bravo MD, [address] [place] [address] Physician Radiation Oncology 03/06/16 Deyanira Mendez, LACE WINDER.AUTOMOTIVE SERVICE ASSISTANT [address] [place] [address] Hematology/Oncology 03/20/22 Irena Gonzalez, FLY FINISHER [address] [place] [address] [employer] Hematology/Oncology 04/16/22 Rolled Gold Plater Relationship Specialty Start Date End Date Angel Fuller MD [address] [place] [address] PCP - General Internal Medicine 05/06/18 Yue Bravo MD, [address] [place] [address] Physician Radiation Oncology 03/06/16 Deyanira Mendez, LACE WINDER.AUTOMOTIVE SERVICE ASSISTANT [address] [place] [address] Hematology/Oncology 03/20/22 Irena Gonzalez, FLY FINISHER [address] [place] [address] [employer] Hematology/Oncology 04/16/22 Rolled Gold Plater Relationship Specialty Start Date End Date Angel Fuller MD [address] [place] [address] PCP - General Internal Medicine 05/06/18 Yue Bravo MD, [address] [place] [address] Physician Radiation Oncology 03/06/16 Deyanira Mendez, LACE WINDER.AUTOMOTIVE SERVICE ASSISTANT [address] [place] [address] Hematology/Oncology 03/20/22 Irena Gonzalez LISW [address] [place] [address] [employer] Hematology/Oncology 04/16/22 Millie Pantoja MD [address] [place] [address] Infectious Diseases 05/21/22 Lorenzo Montana [address] [place] [address] Orthopedics 05/21/22 Rolled Gold Plater Relationship Specialty Start Date End Date Angel Fuller MD [address] [place] [address] PCP - General Internal Medicine 05/06/18 Yue Bravo MD, [address] [place] [address] Physician Radiation Oncology 03/06/16 Deyanira Mendez, LACE WINDER.AUTOMOTIVE SERVICE ASSISTANT [address] [place] [address] Hematology/Oncology 03/20/22 Irena Gonzalez LISW [address] [place] [address] [employer] Hematology/Oncology 04/16/22 Millie Pantoja MD [address] [facility] [place] [address] Infectious Diseases 05/21/22 Lorenzo Montana [address] [place] [address] Orthopedics 05/21/22 Millie Pantoja MD [address] [facility] [place] [address] Referring Infectious Diseases 06/19/22 Rolled Gold Plater Relationship Specialty Start Date End Date Angel Fuller MD [address] [facility] [place] [address] PCP - General Internal Medicine 05/06/18 Yue Bravo MD, [address] [place] [address] Physician Radiation Oncology 03/06/16 Deyanira Mendez APRN.AUTOMOTIVE SERVICE ASSISTANT [address] [place] [address] Hematology/Oncology 03/20/22 Irena Gonzalez LISW [address] [place] [address] [employer] Hematology/Oncology 04/16/22 Millie Pantoja MD [address] [facility] [place] [address] Infectious Diseases 05/21/22 Lorenzo Montana [address] [place] [address] Orthopedics 05/21/22 Millie Pantoja MD [address] [place] [place] [address] Referring Infectious Diseases 06/19/22 Rolled Gold Plater Relationship Specialty Start Date End Date Angel Fuller MD [address] [place] [address] PCP - General Internal Medicine 05/06/18 Yue Bravo MD, [address] [place] [address] Physician Radiation Oncology 03/06/16 Deyanira Mendez, LACE WINDER.AUTOMOTIVE SERVICE ASSISTANT [address] [place] [address] Hematology/Oncology 03/20/22 Irena Gonzalez LISW [address] [place] [address] [employer] Hematology/Oncology 04/16/22 Millie Pantoja MD [address] [place] [address] Infectious Diseases 05/21/22 Lorenzo Montana [address] [place] [address] Orthopedics 05/21/22 Millie Pantoja MD [address] [place] [address] Referring Infectious Diseases 06/19/22 Rolled Gold Plater Relationship Specialty Start Date End Date Angel Fuller MD [address] [place] [address] PCP - General Internal Medicine 05/06/18 Yue Bravo MD, [address] [place] [address] Physician Radiation Oncology 03/06/16 Deyanira Mendez, LACE WINDER.AUTOMOTIVE SERVICE ASSISTANT [address] [place] [address] Hematology/Oncology 03/20/22 Irena Gonzalez LISW [address] [place] [address] [employer] Hematology/Oncology 04/16/22 Millie Pantoja MD [address] [place] [address] Infectious Diseases 05/21/22 Lorenzo Montana [email or web address] [facility] 2 [place], [place] [address] Orthopedics 05/21/22 Millie Pantoja MD [address] [place] [address] Referring Infectious Diseases 06/19/22 Rolled Gold Plater Relationship Specialty Start Date End Date Angel Fuller MD [address] [place] [address] PCP - General Internal Medicine 05/06/18 Yue Bravo MD, [address] [place] [address] Physician Radiation Oncology 03/06/16 Deyanira Mendez APRN.CNP [address] [place] [address] Hematology/Oncology 03/20/22 Irena Gonzalez LISW [address] [place] [address] [employer] Hematology/Oncology 04/16/22 Millie Pantoja MD [address] [place] [address] Infectious Diseases 05/21/22 Lorenzo Montana [address] [facility] 2 [place] [address] Orthopedics 05/21/22 Millie Pantoja MD [address] [place] [address] Referring Infectious Diseases 06/19/22 Rolled Gold Plater Relationship Specialty Start Date End Date Angel Fuller MD [address] [place] [address] PCP - General Internal Medicine 05/06/18 Yue Bravo MD, [address] [place], [place] [id number] Physician Radiation Oncology 03/06/16 Rolled Gold Plater Relationship Specialty Start Date End Date Angel Fuller MD [address] [place] [address] PCP - General Internal Medicine 05/06/18 Yue Bravo MD, [address] [place], [place] [address] Physician Radiation Oncology 03/06/16 Rolled Gold Plater Relationship Specialty Start Date End Date Angel Fuller MD [address] [place] [address] PCP - General Internal Medicine 05/06/18 Yue Bravo MD, [address] [place], [place] [address] [phone] Physician Radiation Oncology 03/06/16 Rolled Gold Plater Relationship Specialty Start Date End Date Angel Fuller MD [address] [place] [phone] PCP - General Internal Medicine 05/06/18 Yue Bravo MD, [address] [place] [address] Physician Radiation Oncology 03/06/16 Deyanira Mendez APRN.AUTOMOTIVE SERVICE ASSISTANT [address] [place] [address] Hematology/Oncology 03/20/22 Rolled Gold Plater Relationship Specialty Start Date End Date Angel Fuller MD [address] [place] [address] PCP - General Internal Medicine 05/06/18 Yue Bravo MD, [address] [place] [address] Physician Radiation Oncology 03/06/16 Deyanira Mendez APRN.AUTOMOTIVE SERVICE ASSISTANT [address] [place] [address] Hematology/Oncology 03/20/22 Rolled Gold Plater Relationship Specialty Start Date End Date Angel Fuller MD [address] [place] [phone] PCP - General Internal Medicine 05/06/18 Yue Bravo MD, MD [address] [place] [address] Physician Radiation Oncology 03/06/16 Deyanira Mendez, ELENA.AUTOMOTIVE SERVICE ASSISTANT [address] [place] [address] Hematology/Oncology 03/20/22 Irena Gonzalez LISW [address] [address] [employer] Hematology/Oncology 04/16/22 Millie Pantoja MD [address] [place] [address] Infectious Diseases 05/21/22 Lorenzo Montana [address] [facility] [address] [place], [place] [address] Orthopedics 05/21/22 Millie Pantoja MD [address] [place], [place] [id number] Referring Infectious Diseases 06/19/22 Team Status: Active [...] Provider, Referring Pr ovider Active Dr. Erik Jones DO Attending Provider Active Team Status: Inactive [...] MD Primary Care Provider Active Dr. Erik Jones DO Attending Provider, Referring P rovider Active Team Status: Inactive Member Role Status Dates Dr. Angel Fuller MD Primary Care Provider Active Dr. Erik Jones DO Attending Provider, Referring P rovider Active Team Status: Inactive Member Role Status Dates Dr. Angel Fuller MD Primary Care Provider, Referring Pr ovider Active Irving [place] PA, PA Attending Provider Active Team Status: Inactive Member Role Status Dates Dr. Angel Fuller MD Primary Care Provider Active Dr. Beulah Bain MD Attending Provider, Referring Pr ovider Active Rolled Gold Plater Relationship Specialty Start Date End Date Angel Fuller MD [address] [place] [phone] PCP - General Internal Medicine 05/06/18 Yue Bravo MD [address] [place] [address] Physician Radiation Oncology 03/06/16 Deyanira Mendez APRN.AUTOMOTIVE SERVICE ASSISTANT [address] [place] [address] Hematology/Oncology 03/20/22 Irena Gonzalez LISW [address] [place] [address] [employer] Hematology/Oncology 04/16/22 Millie Pantoja MD [address] [place], [place] [id number] Infectious Diseases 05/21/22 Lorenzo Montana [address] [facility] [address] [place] [address] Orthopedics 05/21/22 Millie Pantoja MD [address] [place] [address] Referring Infectious Diseases 06/19/22 Rolled Gold Plater Relationship Specialty Start Date End Date Angel Fuller MD [address] [place] [phone] PCP - General Internal Medicine 05/06/18 Yue Bravo MD [address] [place] [address] Physician Radiation Oncology 03/06/16 Deyanira Mendez APRN.AUTOMOTIVE SERVICE ASSISTANT [address] [place] [address] Hematology/Oncology 03/20/22 Irena Gonzalez LISW [address] [place] [address] [employer] Hematology/Oncology 04/16/22 Millie Pantoja MD [address] [place], [place] [address] Infectious Diseases 05/21/22 Lorenzo Montana [address] [address] [place], [place] [address] Orthopedics 05/21/22 Millie Pantoja MD [address] [place], [place] [address] Referring Infectious Diseases 06/19/22 Rolled Gold Plater Relationship Specialty Start Date End Date Angel Fuller MD [address] [place] [address] PCP - General Internal Medicine 05/06/18 Yue Bravo MD [address] [place] [address] Physician Radiation Oncology 03/06/16 Deyanira Mendez APRN.AUTOMOTIVE SERVICE ASSISTANT [address] [place] [address] Hematology/Oncology 03/20/22 Irena Gonzalez LISW [address] [place] [address] [employer] Hematology/Oncology 04/16/22 Millie Pantoja MD [address] [place], [place] [id number] Infectious Diseases 05/21/22 Lorenzo Montana [address] [place], [place] [address] Orthopedics 05/21/22 Millie Pantoja MD [address] [place] [address] Referring Infectious Diseases 06/19/22 Team Status: Inactive Member Role Status Dates Dr. Angel Fuller MD Primary Care Provider, Referring Pr ovider Active Dr. Marco Obrien MD Attending Provider Active Team Status: Inactive Member Role Status Dates Dr. Angel Fuller MD Primary Care Provider Active Dr. Marco Obrien MD Attending Provider, Referring Pro vider Active Rolled Gold Plater Relationship Specialty Start Date End Date Angel Fuller MD [address] [place] [phone] PCP - General Internal Medicine 05/06/18 Yue Bravo MD [address] [place] [address] Physician Radiation Oncology 03/06/16 Deyanira Mendez APRN.CNP [address] [place] [address] Hematology/Oncology 03/20/22 Irena Gonzalez LISW [address] [place] [address] [employer] Hematology/Oncology 04/16/22 Millie Pantoja MD [address] [place], [place] [address] Infectious Diseases 05/21/22 Lorenzo Montana [address] [place] [address] Orthopedics 05/21/22 Millie Pantoja MD [address] [place] [address] Referring Infectious Diseases 06/19/22 Rolled Gold Plater Relationship Specialty Start Date End Date Angel Fuller MD [address] [place] [address] PCP - General Internal Medicine 05/06/18 Yue Bravo MD [address] [place] [address] Physician Radiation Oncology 03/06/16 Deyanira Mendez APRN.AUTOMOTIVE SERVICE ASSISTANT [address] [place] [address] Hematology/Oncology 03/20/22 Irena Gonzalez LISW [address] [place] [address] [employer] Hematology/Oncology 04/16/22 Millie Pantoja MD [address] [place] [address] Infectious Diseases 05/21/22 Lorenzo Montana [address] [facility] [place] [address] Orthopedics 05/21/22 Millie Pantoja MD [address] [place] [address] Referring Infectious Diseases 06/19/22 Rolled Gold Plater Relationship Specialty Start Date End Date Angel Fuller MD [address] [place] [address] PCP - General Internal Medicine 05/06/18 Yue Bravo MD [address] [place] [address] Physician Radiation Oncology 03/06/16 Deyanira Mendez APRN.AUTOMOTIVE SERVICE ASSISTANT [address] [place] [address] Hematology/Oncology 03/20/22 Irena Gonzalez LISW [address] [place] [address] [employer] Hematology/Oncology 04/16/22 Millie Pantoja MD [address] [place] [address] Infectious Diseases 05/21/22 Lorenzo Montana [address] [place] [address], [place] [address] Orthopedics 05/21/22 Millie Pantoja MD [address] [place], [place] [address] Referring Infectious Diseases 06/19/22 Rolled Gold Plater Relationship Specialty Start Date End Date Angel Fuller MD [address] [place] [address] PCP - General Internal Medicine 05/06/18 Yue Bravo MD [address] [place] [address] Physician Radiation Oncology 03/06/16 Deyanira Mendez APRN.AUTOMOTIVE SERVICE ASSISTANT [address] [place] [address] Hematology/Oncology 03/20/22 Irena Gonzalez LISW [address] [place] [address] [employer] Hematology/Oncology 04/16/22 Millie Pantoja MD [address] [place], [place] [address] Infectious Diseases 05/21/22 Lorenzo Montana [address] [place] [address] Orthopedics 05/21/22 Millie Pantoja MD [address] [place], [place] [address] Referring Infectious Diseases 06/19/22 Rolled Gold Plater Relationship Specialty Start Date End Date Angel Fuller MD [address] [place] [address] PCP - General Internal Medicine 05/06/18 Yue Bravo MD [address] [place] [address] Physician Radiation Oncology 03/06/16 Deyanira Mendez APRN.AUTOMOTIVE SERVICE ASSISTANT [address] [place] [address] Hematology/Oncology 03/20/22 Irena Gonzalez LISW [address] [place] [address] [employer] Hematology/Oncology 04/16/22 Millie Pantoja MD [address] [place], [place] [address] Infectious Diseases 05/21/22 Lorenzo Montana [address] [place] [address] Orthopedics 05/21/22 Millie Pantoja MD [address] [place] [address] Referring Infectious Diseases 06/19/22 Rolled Gold Plater Relationship Specialty Start Date End Date Angel Fuller MD [address] [place] [address] PCP - General Internal Medicine 05/06/18 Yue Bravo MD [address] [place] [address] Physician Radiation Oncology 03/06/16 Deyanira Mendez APRN.AUTOMOTIVE SERVICE ASSISTANT [address] [place] [address] Hematology/Oncology 03/20/22 Irena Gonzalez LISW [address] [place] [address] [employer] Hematology/Oncology 04/16/22 Millie Pantoja MD [address] [place] [address] Infectious Diseases 05/21/22 Lorenzo Montana [address] [facility] [place] [address] Orthopedics 05/21/22 Millie Pantoja MD [address] [place] [address] Referring Infectious Diseases 06/19/22 Team [...] 2024 End: March 06, 2024 Luis Daniel Son NP, HERPETOLOGY TEACHER-C Attending Provider Active S tart: March 06, [...] April 12, 2024 End: April 12, 2024 SUMIT Brush Attending Provider Active Star t: April 12, [...] April 16, 2024 Dr. Easton Hanson DO Emergency Provider [...] May 17, 2024 End: May 17, 2024 Rolled Gold Plater Relationship Specialty Start Date End Date Angel Fuller MD [address] [place] [address] PCP - General Internal Medicine 05/06/18 Yue Bravo MD [address] [place] [address] Physician Radiation Oncology 03/06/16 Deyanira Mendez APRN.AUTOMOTIVE SERVICE ASSISTANT [address] [place] [address] Hematology/Oncology 03/20/22 Irena oGnzalez LISW [address] [place] [address] [employer] Hematology/Oncology 04/16/22 Millie Pantoja MD [address] [place], [place] [address] Infectious Diseases 05/21/22 Lorenzo Montana [address] [place] [address], [place] [address] Orthopedics 05/21/22 Millie Pantoja MD [address] [place] [address] Referring Infectious Diseases 06/19/22 Team Status: Inactive [...] July 29, 2024 End: July 29, 2024 Rolled Gold Plater Relationship Specialty Start Date End Date Angel Fuller MD [address] [place] [address] PCP - General Internal Medicine 05/06/18 Yue Bravo MD [address] [place] [address] Physician Radiation Oncology 03/06/16 Deyanira Mendez APRN.CNP [address] [place] [address] Hematology/Oncology 03/20/22 Irena Gonzalez LISW [address] [place] [address] [employer] Hematology/Oncology 04/16/22 Millie Pantoja MD [address] [place] [address] Infectious Diseases 05/21/22 KnapLorenzo finch [address] [place] [address] Orthopedics 05/21/22 Millie Pantoja MD [address] [place] [address] Referring Infectious Diseases 06/19/22 Team Status: Inactive Member Role Status Dates Dr. Angel Fuller MD Primary Care Provider Active Start: August 13, 2024 End: August 13, 2024 Dr. Julien Holder DO Emergency Provider Active Start: August 13, 2024 End: August 13, 2024 Team Status: Inactive Member Role Status Dates Dr. Angel Fuller MD Primary Care Provider Active Start: August 15, 2024 End: August 15, 2024 Dr. Angel Fuller MD Referring Provider Active Sta rt: August 15, 2024 End: August 15, 2024 Dr. Anthony Mckeon MD Attending Provider Active Start: August 15, 2024 End: August 15, 2024 Team Status: Active Member Role/Relationship Status Dates Dr. Angel Fuller MD Primary Care Provider Active Team Status: Inactive Member Role/Relationship Status Dates Dr. Angel Fuller MD Primary Care Provider Active Start: May 02, 2024 End: May 02, 2024 Dr. Angel Fuller MD Referring Provider Active Sta rt: May 02, 2024 End: May 02, 2024 VIR[place] Singh Attending Provider Active Star t: May 02, 2024 End: May 02, 2024 Team Status: Inactive Member Role/Relationship Status Dates Dr. Angel Fuller MD Primary Care Provider Active Start: May 10, 2024 End: May 10, 2024 Dr. Anthony Mckeon MD Attending Provider Active Start: May 10, 2024 End: May 10, 2024 Dr. Anthony Mckeon MD Referring Provider Active Start: May 10, 2024 End: May 10, 2024 Team Status: Inactive Member Role/Relationship Status Dates Dr. Angel Fuller MD Primary Care Provider Active Start: May 11, 2024 End: May 11, 2024 Dr. Anthony Mckeon MD Attending Provider Active Start: May 11, 2024 End: May 11, 2024 Dr. Anthony Mckeon MD Referring Provider Active Start: May 11, 2024 End: May 11, 2024 Team Status: Active Member Role/Relationship Status Dates Dr. Angel Fuller MD Primary Care Provider Active Start: May 11, 2024 Dr. Anthony Mckeon MD Referring Provider Active Start: May 11, 2024 Dr. Anthony Mckeon MD Other Provider Active S tart: May 11, 2024 Dr. Shakeel Spears MD Attending Provider Active S tart: May 11, 2024 Team Status: Inactive Member Role/Relationship Status Dates Dr. Angel Fuller MD Primary Care Provider Active Start: May 17, 2024 End: May 17, 2024 Dr. Anthony Mckeon MD Attending Provider Active Start: May 17, 2024 End: May 17, 2024 Dr. Anthony Mckeon MD Referring Provider Active Start: May 17, 2024 End: May 17, 2024 Team Status: Active Member Role/Relationship Status Dates Dr. Angel Fuller MD Primary Care Provider Active Start: May 17, 2024 Dr. Anthony Mckeon MD Referring Provider Active Start: May 17, 2024 Dr. Anthony Mckeon MD Other Provider Active S tart: May 17, 2024 Dr. Tory Puentes MD Attending Provider Active Start: May 17, 2024 Team Status: Inactive Member Role/Relationship Status Dates Dr. Angel Fuller MD Primary Care Provider Active Start: June 09, 2024 End: June 09, 2024 Dr. Anthony Mckeon MD Attending Provider Active Start: June 09, 2024 End: June 09, 2024 Dr. Anthony Mckeon MD Referring Provider Active Start: June 09, 2024 End: June 09, 2024 Team Status: Inactive Member Role/Relationship Status Dates Dr. Angel Fuller MD Primary Care Provider Active Start: June 24, 2024 End: June 24, 2024 Dr. Angel Fuller MD Referring Provider Active Sta rt: June 24, 2024 End: June 24, 2024 Dr. Jeovanny Moore DO Attending Provider Active Start: June 24, 2024 End: June 24, 2024 Team Status: Inactive Member Role/Relationship Status Dates Dr. Angel Fuller MD Primary Care Provider Active Start: June 30, 2024 End: June 30, 2024 Dr. Angel Fuller MD Referring Provider Active Sta rt: June 30, 2024 End: June 30, 2024 Dr. Anthony Mckeon MD Attending Provider Active Start: June 30, 2024 End: June 30, 2024 Team Status: Inactive Member Role/Relationship Status Dates Dr. Angel Fuller MD Primary Care Provider Active Start: June 30, 2024 End: June 30, 2024 Dr. Anthony Mckeon MD Attending Provider Active Start: June 30, 2024 End: June 30, 2024 Dr. Anthony Mckeon MD Referring Provider Active Start: June 30, 2024 End: June 30, 2024 Team Status: Inactive Member Role/Relationship Status Dates Dr. Angel Fuller MD Primary Care Provider Active Start: July 13, 2024 End: July 13, 2024 Dr. Angel Fuller MD Referring Provider Active Sta rt: July 13, 2024 End: July 13, 2024 Dr. Jeovanny Moore DO Attending Provider Active Start: July 13, 2024 End: July 13, 2024 Team Status: Inactive Member Role/Relationship Status Dates Dr. Angel Fuller MD Primary Care Provider Active Start: July 14, 2024 End: July 14, 2024 Dr. Anthony Mckeon MD Attending Provider Active Start: July 14, 2024 End: July 14, 2024 Dr. Anthony Mckeon MD Referring Provider Active Start: July 14, 2024 End: July 14, 2024 Team Status: Inactive Member Role/Relationship Status Dates Dr. Angel Fuller MD Primary Care Provider Active Start: July 22, 2024 End: July 22, 2024 Dr. Angel Fuller MD Referring Provider Active Sta rt: July 22, 2024 End: July 22, 2024 Dr. Jeovanny Moore DO Attending Provider Active Start: July 22, 2024 End: July 22, 2024 Team Status: Inactive Member Role/Relationship Status Dates Dr. Angel Fuller MD Primary Care Provider Active Start: July 29, 2024 End: July 29, 2024 Dr. Angel Fuller MD Referring Provider Active Sta rt: July 29, 2024 End: July 29, 2024 Dr. Jeovanny Moore DO Attending Provider Active Start: July 29, 2024 End: July 29, 2024 Team Status: Inactive Member Role/Relationship Status Dates Dr. Angel Fuller MD Primary Care Provider Active Start: August 13, 2024 End: August 13, 2024 Dr. Julien Holder DO Attending Provider Active Start: August 13, 2024 End: August 13, 2024 Dr. Julien Holder DO Emergency Provider Active Start: August 13, 2024 End: August 13, 2024 Team Status: Inactive Member Role/Relationship Status Dates Dr. Angel Fuller MD Primary Care Provider Active Start: August 15, 2024 End: August 15, 2024 Dr. Angel Fuller MD Referring Provider Active Sta rt: August 15, 2024 End: August 15, 2024 Dr. Anthony Mckeon MD Attending Provider Active Start: August 15, 2024 End: August 15, 2024 Team Status: Inactive Member Role/Relationship Status Dates Dr. Angel Fuller MD Primary Care Provider Active Start: August 30, 2024 End: August 30, 2024 Dr. Angel Fuller MD Referring Provider Active Sta rt: August 30, 2024 End: August 30, 2024 Dr. Anthony Mckeon MD Attending Provider Active Start: August 30, 2024 End: August 30, 2024 Team Status: Inactive Member Role/Relationship Status Dates Dr. Angel Fuller MD Primary Care Provider Active Start: May 10, 2024 End: May 10, 2024 Dr. Anthony Mckeon MD Attending Provider Active Start: May 10, 2024 End: May 10, 2024 Dr. Anthony Mckeon MD Referring Provider Active Start: May 10, 2024 End: May 10, 2024 Team Status: Inactive Member Role/Relationship Status Dates Dr. Angel Fuller MD Primary Care Provider Active Start: May 11, 2024 End: May 11, 2024 Dr. Anthony Mckeon MD Attending Provider Active Start: May 11, 2024 End: May 11, 2024 Dr. Anthony Mckeon MD Referring Provider Active Start: May 11, 2024 End: May 11, 2024 Team Status: Active Member Role/Relationship Status Dates Dr. Angel Fuller MD Primary Care Provider Active Start: May 11, 2024 Dr. Anthony Mckeon MD Referring Provider Active Start: May 11, 2024 Dr. Anthony Mckeon MD Other Provider Active S tart: May 11, 2024 Dr. Shakeel Spears MD Attending Provider Active S tart: May 11, 2024 Team Status: Inactive Member Role/Relationship Status Dates Dr. Angel Fuller MD Primary Care Provider Active Start: May 17, 2024 End: May 17, 2024 Dr. Anthony Mckeon MD Attending Provider Active Start: May 17, 2024 End: May 17, 2024 Dr. Anthony Mckeon MD Referring Provider Active Start: May 17, 2024 End: May 17, 2024 Team Status: Active Member Role/Relationship Status Dates Dr. Angel Fuller MD Primary Care Provider Active Start: May 17, 2024 Dr. Anthony Mckeon MD Referring Provider Active Start: May 17, 2024 Dr. Anthony Mckeon MD Other Provider Active S tart: May 17, 2024 Dr. Tory Puentes MD Attending Provider Active Start: May 17, 2024 Team Status: Inactive Member Role/Relationship Status Dates Dr. Angel Fuller MD Primary Care Provider Active Start: June 09, 2024 End: June 09, 2024 Dr. Anthony Mckeon MD Attending Provider Active Start: June 09, 2024 End: June 09, 2024 Dr. Anthony Mckeon MD Referring Provider Active Start: June 09, 2024 End: June 09, 2024 Team Status: Inactive Member Role/Relationship Status Dates Dr. Angel Fuller MD Primary Care Provider Active Start: June 24, 2024 End: June 24, 2024 Dr. Angel Fuller MD Referring Provider Active Sta rt: June 24, 2024 End: June 24, 2024 Dr. Jeovanny Moore DO Attending Provider Active Start: June 24, 2024 End: June 24, 2024 Team Status: Inactive Member Role/Relationship Status Dates Dr. Angel Fuller MD Primary Care Provider Active Start: June 30, 2024 End: June 30, 2024 Dr. Angel Fuller MD Referring Provider Active Sta rt: June 30, 2024 End: June 30, 2024 Dr. Anthony Mckeon MD Attending Provider Active Start: June 30, 2024 End: June 30, 2024 Team Status: Inactive Member Role/Relationship Status Dates Dr. Angel Fuller MD Primary Care Provider Active Start: June 30, 2024 End: June 30, 2024 Dr. Anthony Mckeon MD Attending Provider Active Start: June 30, 2024 End: June 30, 2024 Dr. Anthony Mckeon MD Referring Provider Active Start: June 30, 2024 End: June 30, 2024 Team Status: Inactive Member Role/Relationship Status Dates Dr. Angel Fuller MD Primary Care Provider Active Start: July 13, 2024 End: July 13, 2024 Dr. Angel Fuller MD Referring Provider Active Sta rt: July 13, 2024 End: July 13, 2024 Dr. Jeovanny Moore DO Attending Provider Active Start: July 13, 2024 End: July 13, 2024 Team Status: Inactive Member Role/Relationship Status Dates Dr. Angel Fuller MD Primary Care Provider Active Start: July 14, 2024 End: July 14, 2024 Dr. Anthony Mckeon MD Attending Provider Active Start: July 14, 2024 End: July 14, 2024 Dr. Anthony Mckeon MD Referring Provider Active Start: July 14, 2024 End: July 14, 2024 Team Status: Inactive Member Role/Relationship Status Dates Dr. Angel Fuller MD Primary Care Provider Active Start: July 22, 2024 End: July 22, 2024 Dr. Angel Fuller MD Referring Provider Active Sta rt: July 22, 2024 End: July 22, 2024 Dr. Jeovanny Moore DO Attending Provider Active Start: July 22, 2024 End: July 22, 2024 Team Status: Inactive Member Role/Relationship Status Dates Dr. Angel Fuller MD Primary Care Provider Active Start: July 29, 2024 End: July 29, 2024 Dr. Angel Fuller MD Referring Provider Active Sta rt: July 29, 2024 End: July 29, 2024 Dr. Jeovanny Moore DO Attending Provider Active Start: July 29, 2024 End: July 29, 2024 Team Status: Inactive Member Role/Relationship Status Dates Dr. Angel Fuller MD Primary Care Provider Active Start: August 13, 2024 End: August 13, 2024 Dr. Julien Holder DO Attending Provider Active Start: August 13, 2024 End: August 13, 2024 Dr. Julien Holder DO Emergency Provider Active Start: August 13, 2024 End: August 13, 2024 Team Status: Inactive Member Role/Relationship Status Dates Dr. Angel Fuller MD Primary Care Provider Active Start: August 15, 2024 End: August 15, 2024 Dr. Angel Fuller MD Referring Provider Active Sta rt: August 15, 2024 End: August 15, 2024 Dr. Anthony Mckeon MD Attending Provider Active Start: August 15, 2024 End: August 15, 2024 Team Status: Inactive Member Role/Relationship Status Dates Dr. Angel Fuller MD Primary Care Provider Active Start: August 30, 2024 End: August 30, 2024 Dr. Angel Fuller MD Referring Provider Active Sta rt: August 30, 2024 End: August 30, 2024 Dr. Anthony Mckeon MD Attending Provider Active Start: August 30, 2024 End: August 30, 2024 Team Status: Active Member Role/Relationship Status Dates Dr. Angel Fuller MD Primary Care Provider Active Start: August 31, 2024 Dr. Anthony Mckeon MD Attending Provider Active Start: August 31, 2024 Dr. Anthony Mckeon MD Referring Provider Active Start: August 31, 2024 Team Status: Active Member Role/Relationship Status Dates Dr. Angel Fuller MD Referring Provider Active Sta rt: September 05, 2024 Dr. Jeovanny Moore DO Attending Provider Active Start: September 05, 2024 Team Status: Inactive Member Role/Relationship Status Dates Dr. Marco Obrien MD Attending Provider Active S tart: September 05, 2024 End: September 05, 2024 Team Status: Inactive Member Role/Relationship Status Dates Dr. Angel Fuller MD Referring Provider Active Sta rt: September 05, 2024 End: September 05, 2024 Dr. Jeovanny Moore DO Attending Provider Active Start: September 05, 2024 End: September 05, 2024 Team Status: Inactive Member Role/Relationship Status Dates Dr. Angel Fuller MD Primary Care Provider Active Start: August 31, 2024 End: August 31, 2024 Dr. Anthony Mckeon MD Attending Provider Active Start: August 31, 2024 End: August 31, 2024 Dr. Anthony Mckeon MD Referring Provider Active Start: August 31, 2024 End: August 31, 2024 Team Status: Inactive Member Role/Relationship Status Dates Dr. Jeovanny Moore DO Attending Provider Active Start: September 07, 2024 End: September 07, 2024 Team Status: Inactive Member Role/Relationship Status Dates Dr. Angel Fuller MD Primary Care Provider Active Start: June 09, 2024 End: June 09, 2024 Dr. Anthony Mckeon MD Attending Provider Active Start: June 09, 2024 End: June 09, 2024 Dr. Anthony Mckeon MD Referring Provider Active Start: June 09, 2024 End: June 09, 2024 Team Status: Inactive Member Role/Relationship Status Dates Dr. Angel Fuller MD Primary Care Provider Active Start: June 24, 2024 End: June 24, 2024 Dr. Angel Fuller MD Referring Provider Active Sta rt: June 24, 2024 End: June 24, 2024 Dr. Jeovanny Moore DO Attending Provider Active Start: June 24, 2024 End: June 24, 2024 Team Status: Inactive Member Role/Relationship Status Dates Dr. Angel Fuller MD Primary Care Provider Active Start: June 30, 2024 End: June 30, 2024 Dr. Angel Fuller MD Referring Provider Active Sta rt: June 30, 2024 End: June 30, 2024 Dr. Anthony Mckeon MD Attending Provider Active Start: June 30, 2024 End: June 30, 2024 Team Status: Inactive Member Role/Relationship Status Dates Dr. Angel Fuller MD Primary Care Provider Active Start: June 30, 2024 End: June 30, 2024 Dr. Anthony Mckeon MD Attending Provider Active Start: June 30, 2024 End: June 30, 2024 Dr. Anthony Mckeon MD Referring Provider Active Start: June 30, 2024 End: June 30, 2024 Team Status: Inactive Member Role/Relationship Status Dates Dr. Angel Fuller MD Primary Care Provider Active Start: July 13, 2024 End: July 13, 2024 Dr. Angel Fuller MD Referring Provider Active Sta rt: July 13, 2024 End: July 13, 2024 Dr. Jeovanny Moore DO Attending Provider Active Start: July 13, 2024 End: July 13, 2024 Team Status: Inactive Member Role/Relationship Status Dates Dr. Angel Fuller MD Primary Care Provider Active Start: July 14, 2024 End: July 14, 2024 Dr. Anthony Mckeon MD Attending Provider Active Start: July 14, 2024 End: July 14, 2024 Dr. Anthony Mckeon MD Referring Provider Active Start: July 14, 2024 End: July 14, 2024 Team Status: Inactive Member Role/Relationship Status Dates Dr. Angel Fuller MD Primary Care Provider Active Start: July 22, 2024 End: July 22, 2024 Dr. Angel Fuller MD Referring Provider Active Sta rt: July 22, 2024 End: July 22, 2024 Dr. Jeovanny Moore DO Attending Provider Active Start: July 22, 2024 End: July 22, 2024 Team Status: Inactive Member Role/Relationship Status Dates Dr. Angel Fuller MD Primary Care Provider Active Start: July 29, 2024 End: July 29, 2024 Dr. Angel Fuller MD Referring Provider Active Sta rt: July 29, 2024 End: July 29, 2024 Dr. Jeovanny Moore DO Attending Provider Active Start: July 29, 2024 End: July 29, 2024 Team Status: Inactive Member Role/Relationship Status Dates Dr. Angel Fuller MD Primary Care Provider Active Start: August 13, 2024 End: August 13, 2024 Dr. Julien Holder DO Attending Provider Active Start: August 13, 2024 End: August 13, 2024 Dr. Julien Holder DO Emergency Provider Active Start: August 13, 2024 End: August 13, 2024 Team Status: Inactive Member Role/Relationship Status Dates Dr. Angel Fuller MD Primary Care Provider Active Start: August 15, 2024 End: August 15, 2024 Dr. Angel Fuller MD Referring Provider Active Sta rt: August 15, 2024 End: August 15, 2024 Dr. Anthony Mckeon MD Attending Provider Active Start: August 15, 2024 End: August 15, 2024 Team Status: Inactive Member Role/Relationship Status Dates Dr. Angel Fuller MD Primary Care Provider Active Start: August 30, 2024 End: August 30, 2024 Dr. Angel Fuller MD Referring Provider Active Sta rt: August 30, 2024 End: August 30, 2024 Dr. Anthony Mckeon MD Attending Provider Active Start: August 30, 2024 End: August 30, 2024 Team Status: Inactive Member Role/Relationship Status Dates Dr. Angel Fuller MD Primary Care Provider Active Start: August 31, 2024 End: August 31, 2024 Dr. Anthony Mckeon MD Attending Provider Active Start: August 31, 2024 End: August 31, 2024 Dr. Anthony Mckeon MD Referring Provider Active Start: August 31, 2024 End: August 31, 2024 Team Status: Inactive Member Role/Relationship Status Dates Dr. Angel Fuller MD Referring Provider Active Sta rt: September 05, 2024 End: September 05, 2024 Dr. Jeovanny Moore DO Attending Provider Active Start: September 05, 2024 End: September 05, 2024 Team Status: Inactive Member Role/Relationship Status Dates Dr. Marco Obrien MD Attending Provider Active S tart: September 05, 2024 End: September 05, 2024 Team Status: Inactive Member Role/Relationship Status Dates Dr. Jeovanny Moore DO Attending Provider Active Start: September 07, 2024 End: September 07, 2024 Team Status: Inactive Member Role/Relationship Status Dates Dr. Angel Fuller MD Referring Provider Active Sta rt: September 15, 2024 End: September 15, 2024 Dr. Anthony Mckeon MD Attending Provider Active Start: September 15, 2024 End: September 15, 2024 Team Status: Inactive Member Role/Relationship Status Dates Dr. Angel Fuller MD Primary Care Provider Active Start: June 24, 2024 End: June 24, 2024 Dr. Angel Fuller MD Referring Provider Active Sta rt: June 24, 2024 End: June 24, 2024 Dr. Jeovanny Moore DO Attending Provider Active Start: June 24, 2024 End: June 24, 2024 Team Status: Inactive Member Role/Relationship Status Dates Dr. Angel Fuller MD Primary Care Provider Active Start: June 30, 2024 End: June 30, 2024 Dr. Angel Fuller MD Referring Provider Active Sta rt: June 30, 2024 End: June 30, 2024 Dr. Anthony Mckeon MD Attending Provider Active Start: June 30, 2024 End: June 30, 2024 Team Status: Inactive Member Role/Relationship Status Dates Dr. Angel Fuller MD Primary Care Provider Active Start: June 30, 2024 End: June 30, 2024 Dr. Anthony Mckeon MD Attending Provider Active Start: June 30, 2024 End: June 30, 2024 Dr. Anthony Mckeon MD Referring Provider Active Start: June 30, 2024 End: June 30, 2024 Team Status: Inactive Member Role/Relationship Status Dates Dr. Angel Fuller MD Primary Care Provider Active Start: July 13, 2024 End: July 13, 2024 Dr. Angel Fuller MD Referring Provider Active Sta rt: July 13, 2024 End: July 13, 2024 Dr. Jeovanny Moore DO Attending Provider Active Start: July 13, 2024 End: July 13, 2024 Team Status: Inactive Member Role/Relationship Status Dates Dr. Angel Fuller MD Primary Care Provider Active Start: July 14, 2024 End: July 14, 2024 Dr. Anthony Mckeon MD Attending Provider Active Start: July 14, 2024 End: July 14, 2024 Dr. Anthony Mckeon MD Referring Provider Active Start: July 14, 2024 End: July 14, 2024 Team Status: Inactive Member Role/Relationship Status Dates Dr. Angel Fuller MD Primary Care Provider Active Start: July 22, 2024 End: July 22, 2024 Dr. Angel Fuller MD Referring Provider Active Sta rt: July 22, 2024 End: July 22, 2024 Dr. Jeovanny Moore DO Attending Provider Active Start: July 22, 2024 End: July 22, 2024 Team Status: Inactive Member Role/Relationship Status Dates Dr. Angel Fuller MD Primary Care Provider Active Start: July 29, 2024 End: July 29, 2024 Dr. Angel Fuller MD Referring Provider Active Sta rt: July 29, 2024 End: July 29, 2024 Dr. Jeovanny Moore DO Attending Provider Active Start: July 29, 2024 End: July 29, 2024 Team Status: Inactive Member Role/Relationship Status Dates Dr. Angel Fuller MD Primary Care Provider Active Start: August 13, 2024 End: August 13, 2024 Dr. Julien Holder DO Attending Provider Active Start: August 13, 2024 End: August 13, 2024 Dr. Julien Holder DO Emergency Provider Active Start: August 13, 2024 End: August 13, 2024 Team Status: Inactive Member Role/Relationship Status Dates Dr. Angel Fuller MD Primary Care Provider Active Start: August 15, 2024 End: August 15, 2024 Dr. Anthony Mckeon MD Attending Provider Active Start: August 15, 2024 End: August 15, 2024 Dr. Anthony Mckeon MD Referring Provider Active Start: August 15, 2024 End: August 15, 2024 Team Status: Inactive Member Role/Relationship Status Dates Dr. Angel Fuller MD Primary Care Provider Active Start: August 30, 2024 End: August 30, 2024 Dr. Angel Fuller MD Referring Provider Active Sta rt: August 30, 2024 End: August 30, 2024 Dr. Anthony Mckeon MD Attending Provider Active Start: August 30, 2024 End: August 30, 2024 Team Status: Inactive Member Role/Relationship Status Dates Dr. Angel Fuller MD Primary Care Provider Active Start: August 31, 2024 End: August 31, 2024 Dr. Anthony Mckeon MD Attending Provider Active Start: August 31, 2024 End: August 31, 2024 Dr. Anthony Mckeon MD Referring Provider Active Start: August 31, 2024 End: August 31, 2024 Team Status: Inactive Member Role/Relationship Status Dates Dr. Angel Fuller MD Referring Provider Active Sta rt: September 05, 2024 End: September 05, 2024 Dr. Jeovanny Moore DO Attending Provider Active Start: September 05, 2024 End: September 05, 2024 Team Status: Inactive Member Role/Relationship Status Dates Dr. Marco Obrien MD Attending Provider Active S tart: September 05, 2024 End: September 05, 2024 Team Status: Inactive Member Role/Relationship Status Dates Dr. Jeovanny Moore DO Attending Provider Active Start: September 07, 2024 End: September 07, 2024 Team Status: Inactive Member Role/Relationship Status Dates Dr. Angel Fuller MD Referring Provider Active Sta rt: September 15, 2024 End: September 15, 2024 Dr. Anthony Mckeon MD Attending Provider Active Start: September 15, 2024 End: September 15, 2024 Team Status: Inactive Member Role/Relationship Status Dates Dr. Anthony Mckeon MD Attending Provider Active Start: October 17, 2024 End: October 17, 2024 Team Status: Inactive Member Role/Relationship Status Dates Dr. Angel Fuller MD Primary Care Provider Active Start: July 13, 2024 End: July 13, 2024 Dr. Angel Fuller MD Referring Provider Active Sta rt: July 13, 2024 End: July 13, 2024 Dr. Jeovanny Moore DO Attending Provider Active Start: July 13, 2024 End: July 13, 2024 Team Status: Inactive Member Role/Relationship Status Dates Dr. Angel Fuller MD Primary Care Provider Active Start: July 14, 2024 End: July 14, 2024 Dr. Anthony Mckeon MD Attending Provider Active Start: July 14, 2024 End: July 14, 2024 Dr. Anthony Mckeon MD Referring Provider Active Start: July 14, 2024 End: July 14, 2024 Team Status: Inactive Member Role/Relationship Status Dates Dr. Angel Fuller MD Primary Care Provider Active Start: July 22, 2024 End: July 22, 2024 Dr. nAgel Fuller MD Referring Provider Active Sta rt: July 22, 2024 End: July 22, 2024 Dr. Jeovanny Moore DO Attending Provider Active Start: July 22, 2024 End: July 22, 2024 Team Status: Inactive Member Role/Relationship Status Dates Dr. Angel Fuller MD Primary Care Provider Active Start: July 29, 2024 End: July 29, 2024 Dr. Angel Fuller MD Referring Provider Active Sta rt: July 29, 2024 End: July 29, 2024 Dr. Jeovanny Moore DO Attending Provider Active Start: July 29, 2024 End: July 29, 2024 Team Status: Inactive Member Role/Relationship Status Dates Dr. Angel Fuller MD Primary Care Provider Active Start: August 13, 2024 End: August 13, 2024 Dr. Julien Holder DO Attending Provider Active Start: August 13, 2024 End: August 13, 2024 Dr. Julien Holder DO Emergency Provider Active Start: August 13, 2024 End: August 13, 2024 Team Status: Inactive Member Role/Relationship Status Dates Dr. Angel Fuller MD Primary Care Provider Active Start: August 15, 2024 End: August 15, 2024 Dr. Anthony Mckeon MD Attending Provider Active Start: August 15, 2024 End: August 15, 2024 Dr. Anthony Mckeon MD Referring Provider Active Start: August 15, 2024 End: August 15, 2024 Team Status: Inactive Member Role/Relationship Status Dates Dr. Angel Fuller MD Primary Care Provider Active Start: August 30, 2024 End: August 30, 2024 Dr. Angel Fuller MD Referring Provider Active Sta rt: August 30, 2024 End: August 30, 2024 Dr. Anthony Mckeon MD Attending Provider Active Start: August 30, 2024 End: August 30, 2024 Team Status: Inactive Member Role/Relationship Status Dates Dr. Angel Fuller MD Primary Care Provider Active Start: August 31, 2024 End: August 31, 2024 Dr. Anthony Mckeon MD Attending Provider Active Start: August 31, 2024 End: August 31, 2024 Dr. Anthony Mckeon MD Referring Provider Active Start: August 31, 2024 End: August 31, 2024 Team Status: Inactive Member Role/Relationship Status Dates Dr. Angel Fuller MD Referring Provider Active Sta rt: September 05, 2024 End: September 05, 2024 Dr. Jeovanny Moore DO Attending Provider Active Start: September 05, 2024 End: September 05, 2024 Team Status: Inactive Member Role/Relationship Status Dates Dr. Marco Obrien MD Attending Provider Active S tart: September 05, 2024 End: September 05, 2024 Team Status: Inactive Member Role/Relationship Status Dates Dr. Jeovanny Moore DO Attending Provider Active Start: September 07, 2024 End: September 07, 2024 Team Status: Inactive Member Role/Relationship Status Dates Dr. Anthony Mckeon MD Attending Provider Active Start: September 15, 2024 End: September 15, 2024 Dr. Anthony Mckeon MD Referring Provider Active Start: September 15, 2024 End: September 15, 2024 Team Status: Inactive Member Role/Relationship Status Dates Dr. Anthony Mckeon MD Attending Provider Active Start: October 17, 2024 End: October 17, 2024 Team Status: Inactive Member Role/Relationship Status Dates Dr. Jeovanny Moore DO Attending Provider Active Start: October 31, 2024 End: October 31, 2024 Team Status: Inactive Member Role/Relationship Status Dates Dr. Angel Fuller MD Primary care physician Active Start: July 22, 2024 End: July 22, 2024 Dr. Angel Fuller MD Referring Provider Active Sta rt: July 22, 2024 End: July 22, 2024 Dr. Jeovanny Moore DO Attending physician Active Start: July 22, 2024 End: July 22, 2024 Team Status: Inactive Member Role/Relationship Status Dates Dr. Angel Fuller MD Primary care physician Active Start: July 29, 2024 End: July 29, 2024 Dr. Angel Fuller MD Referring Provider Active Sta rt: July 29, 2024 End: July 29, 2024 Dr. Jeovanny Moore DO Attending physician Active Start: July 29, 2024 End: July 29, 2024 Team Status: Inactive Member Role/Relationship Status Dates Dr. Angel Fuller MD Primary care physician Active Start: August 13, 2024 End: August 13, 2024 Dr. Julien Holder DO Attending physician Active Start: August 13, 2024 End: August 13, 2024 Dr. Julien Holder DO Emergency Department Physician Active Start: August 13, 2024 End: August 13, 2024 Team Status: Inactive Member Role/Relationship Status Dates Dr. Angel Fuller MD Primary care physician Active Start: August 15, 2024 End: August 15, 2024 Dr. Anthony Mckeon MD Attending physician Active Start: August 15, 2024 End: August 15, 2024 Dr. Anthony Mckeon MD Referring Provider Active Start: August 15, 2024 End: August 15, 2024 Team Status: Inactive Member Role/Relationship Status Dates Dr. Angel Fuller MD Primary care physician Active Start: August 30, 2024 End: August 30, 2024 Dr. Angel Fuller MD Referring Provider Active Sta rt: August 30, 2024 End: August 30, 2024 Dr. Anthony Mckeon MD Attending physician Active Start: August 30, 2024 End: August 30, 2024 Team Status: Inactive Member Role/Relationship Status Dates Dr. Angel Fuller MD Primary care physician Active Start: August 31, 2024 End: August 31, 2024 Dr. Anthony Mckeon MD Attending physician Active Start: August 31, 2024 End: August 31, 2024 Dr. Anthony Mckeon MD Referring Provider Active Start: August 31, 2024 End: August 31, 2024 Team Status: Inactive Member Role/Relationship Status Dates Dr. Angel Fuller MD Referring Provider Active Sta rt: September 05, 2024 End: September 05, 2024 Dr. Jeovanny Moore DO Attending physician Active Start: September 05, 2024 End: September 05, 2024 Team Status: Inactive Member Role/Relationship Status Dates Dr. Marco Obrien MD Attending physician Active Start: September 05, 2024 End: September 05, 2024 Team Status: Inactive Member Role/Relationship Status Dates Dr. Jeovanny Moore DO Attending physician Active Start: September 07, 2024 End: September 07, 2024 Team Status: Inactive Member Role/Relationship Status Dates Dr. Anthony Mckeon MD Attending physician Active Start: September 15, 2024 End: September 15, 2024 Dr. Anthony Mckeon MD Referring Provider Active Start: September 15, 2024 End: September 15, 2024 Team Status: Inactive Member Role/Relationship Status Dates Dr. Anthony Mckeon MD Attending physician Active Start: October 17, 2024 End: October 17, 2024 Team Status: Inactive Member Role/Relationship Status Dates Dr. Jeovanny Moore DO Attending physician Active Start: October 31, 2024 End: October 31, 2024 Team Status: Inactive Member Role/Relationship Status Dates Dr. Anthony Mckeon MD Attending physician Active Start: November 10, 2024 End: November 10, 2024 Team Status: Active Member Role/Relationship Status Dates Dr. Angel Fuller MD Primary care physician Active Team Status: Inactive Member Role/Relationship Status Dates Dr. Anthony Mckeon MD Attending physician Active Start: November 17, 2024 End: November 17, 2024 Team Status: Inactive Member Role/Relationship Status Dates Dr. Jefry Mir DO Emergency Depart ent Physician Active Start: November 21, 2024 End: November 21, 2024 Dr. Angel Fuller MD Primary care physician Active Start: November 21, 2024 End: November 21, 2024 Team Status: Inactive Member Role/Relationship Status Dates Dr. Jefry Mir DO Attending physician Active Start: November 21, 2024 End: November 21, 2024 Dr. Jefry Mir DO Emergency Departm ent Physician Active Start: November 21, 2024 End: November 21, 2024 Dr. Angel Fuller MD Primary care physician Active Start: November 21, 2024 End: November 21, 2024 Team Status: Inactive Member Role/Relationship Status Dates Dr. Jeovanny Moore DO Attending physician Active Start: November 23, 2024 End: November 23, 2024 Dr. Angel Fuller MD Primary care physician Active Start: November 23, 2024 End: November 23, 2024 Dr. Angel Fuller MD Referring Provider Active Sta rt: November 23, 2024 End: November 23, 2024 Care Team (unrecognized sect ion and content) Care Team Personnel Name: ANGEL FULLER MD Position: Physician Member Role: Primary Care Physician Address: Address: [address] [place] [address] Dr [address] Care Team Related Persons Name: ROBERTO BURGER Name: ROBERTO BURGER Name: MYLES MONROY Care Team Personnel Name: ANGEL FULLER MD Position: Physician Member Role: Primary Care Physician Address: Address: [address] [place] [address] Dr [address]AN[address] Care Team Related Persons Name: ROBERTO BURGER Name: ROBERTO BURGER Name: MYLES MONROY INFORMATION SOURCE (unrecogn ized section and content) DATE CREATED AUTHOR 03/10/2023 [facility] ([place] DATE CREATED AUTHOR AUTHOR'S ORGANIZ ATION 05/04/2024 [facility] DATE CREATED AUTHOR AUTHOR'S ORGANIZ ATION 08/19/2024 [facility] DATE CREATED AUTHOR AUTHOR'S ORGANIZ ATION 11/29/2024 [facility] DATE CREATED AUTHOR AUTHOR'S ORGANIZ ATION 12/05/2024 [facility] FOR RECORDS PERTAINING TO PATIENTS WHO ARE [...] BE BASED ON THE PRIMARY CLINICAL RECORDS. [facility] [employer] [facility]. provides no warranty or guarantee of the accuracy or completeness of information in this document.
--- NOTE | 2024-12-11 10:17 | ED.RN ---
I am supposed to have a knee replacement next month and my knee just hurts all the time now. They ordered physical therapy and it just made my knee worse. My pain just feels like a deep dull pain in the bone. I have a CT scheduled for thursday and I just need to know now if there is something more going on with my knee. has been taking prescribed voltaren due to her tramador not being renewed and switched to the voltaren by her physician. has not been taking her Voltaren due to having high BP at home and she wants it cleared out of my system by thursday for my CT. Requests another script for tramador. Patient educated that if she is not taking her medications, increased pain and inflammation can likely be expected with the area as she has been directed by her ortho doc.
--- NOTE | 2024-12-11 10:39 | ED.VIS.LOWEX ---
HPI History of Present Illness Chief Complaint: Lower Extremity Injury Detail of Chief Complaint: Left knee and leg pain Informant: patient Narrative Narrative: Patient presents to the emergency department with left knee and leg pain that she has had for over a year. She scheduled to have surgery and total knee replacement on the right on January [address] Enrique. Patient recently went through physical therapy and that seemed to cause her more pain. She was seen in the emergency department for the increased pain and was started on tramadol and took that for 3 days until she followed up with her orthopedic surgeon. Orthopedic surgeon then put her on Voltaren. Patient stopped taking the Voltaren now and is having more pain. She denies any new injury. She had x-rays of her knee in August. She had a DVT study November 21 that was negative for DVT. She is denying back pain out of the ordinary or radiculopathy type symptoms. [facility] Medical History Episode of syncope Influenza B Acute pharyngitis Burn of right upper extremity Atherosclerosis of coronary artery of [place] heart without angina pectoris Fibromyalgia Menopausal hot flushes Symptoms of gastroesophageal reflux Hypertension Hyperparathyroidism Paresthesia Skin cancer GERD (gastroesophageal reflux disease) Osteopenia Osteoarthritis Heart murmur Hormone deficiency High cholesterol Headache Gastrointestinal problem Cataracts, bilateral Breast cancer Breast lump UTI (urinary tract infection) Back problem Arthritis Hx of breast cancer Home Medications ?Medication ?Instructions ?Recorded ?Last Taken ?Type acetaminophen 500 mg tablet 1,000 mg PO BID PRN Pain 06/10/23 11/20/24 History (Tylenol Extra Strength) cyanocobalamin (vitamin B-12) 100 mcg subcut QMONTH 04/05/24 11/16/24 History 1,000 mcg/mL injection solution cholecalciferol (vitamin D3) 1,250 1,250 mcg PO QWEEK #4 caps 09/23/24 11/14/24 Rx mcg (50,000 unit) capsule tramadol 50 mg tablet 50 mg PO Q4H PRN PRN Pain 3 days 11/21/24 Unknown Rx #20 tabs tramadol 50 mg tablet 50 mg PO Q6H PRN pain #20 tabs 12/11/24 Unknown Rx Allergy/AdvReac Type Severity Reaction Status Date / Time duloxetine (From Cymbalta) AdvReac Mild dizziness Verified 12/11/24 09:29 Family History Father Heart disease Mother Heart disease Osteoporosis Thyroid disorder Brother Heart disease Hypertension Hypercholesterolemia Daughter Cancer Sister Arthritis Hypertension Hypercholesterolemia Osteoporosis Thyroid disorder Surgical History History of left heart catheterization (08/16/20) History of endoscopy History of colonoscopy History of lumpectomy Hx of cataract surgery H/O: hysterectomy Social History Smoking Status: Never smoker alcohol intake: never substance use type: does not use what type of physical activity do you participate in: walking and weight training frequency: 1-2 times per week ROS ROS ED Review of Systems ROS Unobtainable: other Constitutional Constitutional ED: Reports lethargy; Denies chills, fever(s), sweats or weight loss Eyes Eyes: Denies blurry vision, change in vision or diplopia ENT ENT ED: Denies rhinorrhea or sore throat Cardiovascular Cardiovascular: Denies chest pain, orthopnea or racing heartbeat Respiratory/Chest Respiratory/Chest: Denies cough, dyspnea, dyspnea on exertion, orthopnea or sputum Gastrointestinal Gastrointestinal: Denies abdominal pain, diarrhea, nausea or vomiting Genitourinary Genitourinary ED: Denies dysuria, hematuria or urinary frequency Musculoskeletal Musculoskeletal: Reports other Details: Right knee pain ; Denies arthralgias, back pain, myalgias or neck pain Integumentary Denies abscess, Abrasions or rash Neurologic Neurologic: Denies headache(s) or weakness Psychiatric Psychiatric: Denies anxiety, depression or suicidal thoughts Endocrine Endocrinology: Denies polydipsia, polyphagia or polyuria Hematologic/Lymphatic Hematologic/Lymphatic: Denies easy bleeding, easy bruising or lymphadenopathy Allergic/Immunologic Allergic/Immunologic ED: Denies mouth swelling, tongue swelling or urticaria EXAM Physical Exam Const Vital Signs: 12/11/24 09:27 Temperature 98.2 F Temperature Source Oral Pulse Rate 86 Respiratory Rate 18 Blood Pressure 146/85 H Blood Pressure Mean 105 Pulse Ox 99 Oxygen Delivery Method Room Air Positive well nourished and well developed General Appearance ED: well developed and NAD HEENT Reports TM's clear and moist mucous membranes normocephalic and atraumatic; Negative for trauma or tenderness Tympanic Membrane ED: Yes TM's clear Eyes PERRL and EOMs intact bilaterally General Eye ED: Negative for pale conjunctiva or scleral icterus Neck no lymphadenopathy, supple and no JVD General: Negative for tenderness Chest Wall inspection of chest normal and palpation of chest normal Chest: Negative for tenderness Resp normal respiratory effort and clear to auscultation bilaterally Effort and Inspection: Negative for respiratory distress or pain with movement Auscultation: Negative for rhonchi, wheezes or diminished lung sounds Cardio regular rate, regular rhythm, S1 normal heart sound, S2 normal heart sound and no murmurs Peripheral Pulses: pulses 2+ throughout GI normal to inspection, nondistended, normoactive bowel sounds, soft to palpation, non-tender, non-distended and no masses Back/Spine no CVA tenderness and no thoracic nor lumbar tenderness Extremity normal to inspection Extremity Narrative: Right knee-no effusion. No erythema or warmth. She has pain with range of motion. Neurovascular intact distally. Negative Homans' sign. No significant edema. No ropes or cords palpated. General Extremety ED: Negative for edema General Extremity: Negative for edema Neuro oriented x3, CN's II-XII intact bilaterally, no sensory deficits noted and gait normal Sensorium / Orientation: awake, alert, oriented to person, oriented to place and oriented to time Motor Exam: strength 5/5 throughout and strength abnormal Psych mental status grossly normal Skin no rashes or lesions noted and no wounds MDM MDM MDM Narrative Medical decision making narrative: Patient presents with ongoing chronic right knee pain. She has a walker at home. I will write her for tramadol. Patient following up with orthopedics. Scheduled to have a CT scan of the knee in 2 days. I reviewed her x-rays from August and does show degenerative changes especially of the medial compartment with minimal joint space there. Patient comfortable with plan. She has had no trauma do not feel any further imaging is indicated. Very low suspicion for DVT. Do not think she has a septic joint. Discharge Plan Triage Chief Complaint: Lower Extremity Injury ED Provider: Teresa Patten Dx/Rx/DC Orders Clinical Impression: Knee pain, left Instructions: Knee Pain Prescriptions: New tramadol 50 mg tablet 50 mg PO Q6H PRN (Reason: pain) Qty: 20 0RF No Action acetaminophen [Tylenol Extra Strength] 500 mg tablet 1,000 mg PO BID PRN (Reason: Pain) cyanocobalamin (vitamin B-12) 1,000 mcg/mL solution 100 mcg subcut QMONTH tramadol 50 mg tablet 50 mg PO Q4H PRN PRN (Reason: Pain) 3 Days Qty: 20 0RF cholecalciferol (vitamin D3) 1,250 mcg (50,000 unit) capsule 1,250 mcg PO QWEEK Qty: 4 4RF Primary Care Provider: Yuval Woods Referrals: Jeovanny Moore DO [Med Staff - Active Staff, Orthopedics] - 3-5 Days Yuval Woods MD [Primary Care Provider, Internal Medicine] Print Language: [place] Disposition Disposition: Home, Self Care
[2024-12-11 10:49] VITALS: BP 146/85; PULSE 86; RESP 18; TEMP 36.8; O2SAT 99
--- NOTE | 2024-12-11 10:51 | CM.ED ---
Social Work Date of referral: 12/11/24 Reason for referral: Advanced Care Directives (ACD's) not on file. Referred by: Social Work identification Patient provided consent for Social Work visit. Financial Specialist requested a copy of ACD's which patient was agreeable to and stated will bring in. Erin Henriquez, DATA ANALYTICS ARCHITECT, SR. PAYROLL MANAGER
== END 2024-12-11 10:55 | disposition home or self-care (01) ==
PROVIDERS: Emergency Provider Emergency Medicine; PCP Internal Medicine; Visit Provider Emergency Medicine
DX: M25.562 Pain in left knee (principal); I25.10 Atherosclerotic heart disease of native coronary artery without angina pectoris
CPT/HCPCS: 99282

== ENCOUNTER → 2024-12-13 | Outpatient (CLI) | payer MEDICARE, OTHER, SELFPAY ==
--- NOTE | 2024-12-13 18:26 | CT_ITS ---
PROCEDURE: EXTREMITY LOWER WITHOUT CONTRA 12/13/2024 REASON FOR EXAM: TEMPLATING FOR RIGHT TKA TECHNIQUE: Procedure Code: CTELWO Modality: CT Procedure: EXTREMITY LOWER WITHOUT CONTRA Coronal and Sagittal reconstruction series were provided. CONTRAST: None One or more dose reduction techniques were used (e.g., Automated exposure control, adjustment of the mA and/or kV according to patient size, use of iterative reconstruction technique). RADIATION DOSE SUMMARY: DLP: 1328 mGycm COMPARISON: None FINDINGS: There is moderate to severe tricompartment osteoarthritis, most severe in the medial compartment. Joint space narrowing and marginal osteophytes are noted. There is a small joint effusion present. No suspicious lytic or blastic lesions are seen. There is no soft tissue mass or cyst. Atherosclerotic calcifications are visible. Mineralization is normal. CT/Extremity Lower without Contra IMPRESSION: There is moderate to severe tricompartment osteoarthritis, most severe in the m edial compartment. Joint space narrowing and marginal osteophytes are noted. There is a small joint effusion present. Reading Location: [facility]
--- OUTSIDE RECORDS SUMMARY | 2024-12-13 18:30 | XMS RPT_ITS | CCD ---
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 Barakat Primary Care Provider [phone] Jonny, Dr. Barakat Referring Provider 1([facility])[phone] Cade Monroy Attending Provider 1([facility])[phone] Lawrence RETANA MD, Daesung Unavailable 1([facility])[phone] Angel Fuller MD Primary Care Provider 1([facility])[phone] Jonny, Dr. Barakat Primary Care Provider 1([facility])[phone] Jonny, Dr. Barakat Referring Provider 1([facility])[phone] Cade Monroy Attending Provider 1([facility])[phone] Beulah Bain Referring Provider 1([facility])[phone] Beulah Bani Other Provider Dr. Esvin Platt Attending Provider Dr. Erik Jones Attending Provider 1([facility])[phone] Marco Obrien Attending Provider 1([facility])[phone] Lawrence RETANA MD, Daesung Unavailable Angel Fuller MD Primary Care Provider Lawrence RETANA MD, Daesung Unavailable Angel Fuller MD Primary Care Provider 1([facility])[phone] Jonny, Dr. Barakat Primary Care Provider 1([facility])[phone] Jonny, Dr. Barakat Referring Provider 1([facility])[phone] Cade Monroy Attending Provider 1([facility])[phone] ANGEL FULLER MD Primary Care Physician ([facility])[phone] Dr. Robert Munguia Attending Provider Vanessa RENOVATION PLANT SUPERVISOR.UNARMED SECURITY OFFICER, [place] Unavailable Irena White Unavailable Unavailabl e Mario [...] Unavailable NAM, ANGEL Primary Care Unavailable FISH RENOVATION PLANT SUPERVISOR-UNARMED SECURITY OFFICER, NAHOMI Attending Unavailab le NAM, ANGEL Primary Care Unavailable LAUREN RENOVATION PLANT SUPERVISOR-UNARMED SECURITY OFFICER, THONG Mayen Attending Unavai lable NAM, ANGEL [...] Barakat Referring Provider [phone] Dr. Erik Jones Attending Provider [phone] Dr. Marco Obrien Attending Provider JONNY RETANA, DR ANGEL Menjivar Primary Care Physician JONNY RETANA, DR ANGEL Menjivar Primary Care Unavailable NEVILLE PARKER-UNARMED SECURITY OFFICER, SHAHLA Attending Unavail sue FULLER MD, DR ANGEL Menjivar Primary Care Unavailable LAUREN RENOVATION PLANT SUPERVISOR-UNARMED SECURITY OFFICER, THONG Mayen Attending Greg FULLER MD, DR ANGEL Menjivar Primary Care Unavailable LAUREN MATSONUNARMED SECURITY OFFICER, THONG Mayen Attending Greg LOZADA RENOVATION PLANT SUPERVISOR-UNARMED SECURITY OFFICER, SHAHLA Attending Unavail sue FULLER MD, DR ANGEL Menjivar Primary Care Unavailable ALFRED RENOVATION PLANT SUPERVISOR-UNARMED SECURITY OFFICER, PAVEL Attending Greg FULLER MD, DR ANGEL Menjivar Primary Care Unavailable Jonny RETANA, Dr. Barakat Primary Care Provider SHAHLA LOZADA Attending Provider SHAHLA LOZADA Referring Provider Jonny RETANA, Dr. Barakat Referring Provider King LAINEY, Dr. Mohamud Attending Provider Adelaida SSIS ETL DEVELOPER-CLuis Daniel Attending Provider Jean Pierre JACKSON, Dr. White Attending Provider Jean Pierre JACKSON, Dr. White Emergency Provider Mago Caballero Attending Provider Micah RETANA, Dr. Lara Attending Provider Mago Caballero Referring Provider Linda RETANA, Dr. Cruz Attending Provider [phone] Jose Luis SSIS ETL DEVELOPER-CLinda Attending Provider Jose Luis SSIS ETL DEVELOPER-CLinda Referring Provider King LAINEY, Dr. Mohamud Referring Provider Sharifa SSIS ETL DEVELOPER-C, Ang Attending Provider Dr. Easton Hanson DO Attending Provider Dr. Easton Hanson DO Emergency Provider SHAHLA KEATING Attending Provider [phone] SHAHLA KEATING Referring Provider Dr. Julien Holder DO Attending Provider Gallo JACKSON, Dr. Victoria Emergency Provider Jonny RETANA, Dr. Barakat Primary Care Provider Jonny RETANA, Dr. Barakat Referring Provider King LAINEY, Dr. Mohamud Attending Provider [facility] SSIS ETL DEVELOPER-C, [facility] Attending Provider [facility], Dr. White Attending Provider [facility], Dr. White Emergency Provider Mago Caballero Attending Provider Micah RETANA, Dr. Lara Attending Provider Mago Caballero Referring Provider Linda RETANA, Dr. Cruz Attending Provider Linda RETANA, Dr. Cruz Referring Provider Borheather SSIS ETL DEVELOPER-C, Linda Attending Provider Jose Luis SSIS ETL DEVELOPER-C, Linda Referring Provider King LAINEY, Dr. Mohamud Referring Provider Moomaw SSIS ETL DEVELOPER-C, [facility] Attending Provider Dr. Easton Hanson DO Attending [...] Dr. Barakat Primary Care Provider [phone] Valentin JACKSON, Dr. Mccormack Attending Provider Valentin JACKSON, Dr. Mccormack Emergency Provider Jonny RETANA, Dr. Barakat Referring Provider Linda RETANA, Dr. Cruz Attending Provider Linda RETANA, Dr. Cruz Referring Provider Jonny RETANA, Dr. Barakat Primary Care Provider [phone] JONNY RETANA, DR ANGEL Menjivar Primary Care Unavailable LASHELL BARCENAS, NAHOMI Attending Unavailab le LASHELL BARCENAS, NAHOMI Attending Unavailab rogelio FULLER MD, DR ANGEL Menjivar Primary Care Unavailable Jonny RETANA, Dr. Barakat Primary Care Provider [phone] Julien Holder DO Attending Provider Gallo JACKSON, Dr. Victoria Emergency Provider Jonny RETANA, Dr. Barakat Primary Care Provider [phone] Jonny RETANA, Dr. Barakat Referring Provider Micah RETANA, Dr. Lara Attending Provider Jonny RETANA, Dr. Barakat Primary Care Provider [phone] Linda RETANA, Dr. Cruz Attending Provider Linda RETANA, Dr. Cruz Referring Provider Jonny RETANA, Dr. Barakat Primary Care Provider Linda RETANA, Dr. Cruz Attending Provider Linda RETANA, Dr. Cruz Referring Provider Jonny RETANA, Dr. Barakat Primary Care Provider Jonny RETANA, Dr. Barakat Referring Provider Oscar [...] Attending Physician PRISCA RIVERA Referring Unavail able ANGEL FULLER Primary Care Unavailable NAM, ANGEL Menjivar Primary Care Unavailable KARIE MEYER Attending Unavailable NAMANGEL Primary Care Unavailable NAM, ANGEL Menjivar Primary Care Unavailable NAM, ANGEL Menjivar Primary Care Unavailable STORMONT, D Attending Unavailable STORMONT, D Referring Unavailable Nam, Angel Primary Care Unavailable Nam, Angel Primary Care Unavailable Devinruso, Jeovanny Admitting Unavailable Borruso, Jeovanny Attending Unavailable Nam, Angel Primary Care Unavailable Baddour, Anthony Attending Unavailable Baddour, Anthony Referring Unavailable Nam, Angel Primary Care Unavailable Keila Pattenus Attending Unavailable Nam, Angel Primary Care Unavailable Julien Holder Attending Unavailable Nam, Angel Primary Care Unavailable Nam, Angel Referring Unavailable Borruso, Jeovanny Attending Unavailable Nam, Angel Primary Care Unavailable Baddour, Anthony Attending Unavailable Baddour, Anthony Referring Unavailable Nam, Angel Primary Care Unavailable STORMONT, D Referring Unavailable STORMONT, D Attending Unavailable Nam, Angel Referring Unavailable Nam, Angel Primary Care Unavailable Borhanselso, Jeovanny Attending Unavailable Nam, Angel Primary Care Unavailable Easton Hanson Attending Unavailable Julien Holder Attending Unavailable Nam, Angel Primary Care Unavailable Nam, Angel Primary Care Unavailable Jefry Mir Attending Unavailable Baddour, Anthony Attending Unavailable Nam, Angel Primary Care Unavailable Baddour, Anthony Referring Unavailable Torres, Mago Referring Unavailable Torres Mago Attending Unavailable Nam, Angel Primary Care Unavailable Porfirio, Cade Referring Unavailable Porfirio, Cade Attending Unavailable Nam, Angel Primary Care Unavailable BordnerMariely Referring Unavailable BordnerMariely Attending Unavailable Nam, Angel Primary Care Unavailable Nam, Angel Primary Care Unavailable Borruso, Jeovanny Attending Unavailable Borruso, Jeovanny Referring Unavailable Baddour, Anthony Attending Unavailable Baddour, Anthony Referring Unavailable Nam, Angel Primary Care Unavailable Nam, Angel Referring Unavailable Baddour, Anthony Attending Unavailable Nam, Angel Primary Care Unavailable Baddour, Anthony Attending Unavailable Baddour, Anthony Referring Unavailable Nam, Angel Referring Unavailable Nam, Angel Primary Care Unavailable Borruso, Jeovanny Attending Unavailable Nam, Angel Primary Care Unavailable Easton Hanson Attending Unavailable Baddour, Anthony Attending Unavailable Nam, Angel Primary Care Unavailable Baddour, Anthony Referring Unavailable Nam, Angel Referring Unavailable Baddour, Anthony Attending Unavailable Nam, Angel Primary Care Unavailable Nam, Angel Referring Unavailable Borruso, Jeovanny Attending Unavailable Marco Obrien Attending Unavailable Baddour, Anthony Referring Unavailable Baddour, Anthony Attending Unavailable Borruso, Jeovanny Attending Unavailable Baddour, Anthony Attending Unavailable Nam, Angel Primary Care Unavailable Baddour, Anthony Referring Unavailable Baddour, Anthony Attending Unavailable Nam, Angel Primary Care Unavailable Ruslan Guzman Attending Unavailable Nam, Angel Primary Care Unavailable Baddour, Anthony Consulting Unavailable Baddour, Anthony Referring Unavailable Shakeel Spears Attending Unavailable Nam, Angel Primary Care Unavailable Baddour, Anthony Consulting Unavailable Deloris, Tory Attending Unavailable Baddour, Anthony Referring Unavailable Nam, Angel Referring Unavailable Nam, Angel Primary Care Unavailable Borruso, Jeovanny Attending Unavailable Nam, Angel Referring Unavailable Torres, Mago Attending Unavailable Nam, Angel Primary Care Unavailable Marco Obrien Attending Unavailable Nam, Angel Primary Care Unavailable Nam, Angel Referring Unavailable Nam, Angel Primary Care Unavailable Torres, Mago Attending Unavailable Nam, Angel Primary Care Unavailable Nam, Angel Referring Unavailable Ang Skaggs Attending Unavailable Nam, Angel Referring Unavailable Cade Monroy Attending Unavailable Nam, Angel Primary Care Unavailable Nam, Angel Referring Unavailable Luis Daniel Son NP Attending Unavailable Nam, Angel Primary Care Unavailable Nam, Angel Primary Care Unavailable Nam, Angel Referring Unavailable Borruso, Jeovanny Attending Unavailable Borruso, Jeovanny Attending Unavailable Baddour, Anthony Attending Unavailable Baddour, Anthony Referring Unavailable Baddour, Anthony Attending Unavailable Nam, Angel Primary Care Unavailable Baddour, Anthony Referring Unavailable Baddour, Anthony Attending Unavailable Nam, Angel Primary Care Unavailable Nam, Angel Primary Care Unavailable Baddour, Anthony Referring Unavailable Baddour, Anthony Attending Unavailable Christopher Greenfield Attending Unavailabl e Nam, Angel Primary Care Unavailable Allergies Allergy Classification Reported Allergen(s) Allergy Type Date of Onset Reaction(s) Facility DULoxetine (1 source) DULoxetine Drug Allergy 09-14-2019 [facility] (20 sources) DULoxetine; Translations: [DULOXETINE] Drug Allergy 09-14-2019 [facility] (1 source) DULoxetine Drug Allergy 12-11-2024 [facility] Repository Medications Current Medications Medication [...] 0 Refill(s) Start Date: 05/27/21 Status: Ordered PassHatn (4 sources) Start: 01-11-2021 Spriooth collegen Active PO January 11, 2021 10:55am Start: 01-11-2021 Brain in Hand co llegen Active PO January 11, 2021 [...] qDay, # 30 tab(s), 1 Refill(s), Pharmacy: [id number], 163.6, cm, 01/27/24 11:22:00 EST, [...] hour prior to bone marrow biopsy. omega 1-bgj-ngw-fish oil 290 mg-430 mg-1.4 gram capsule (11 sources) Start: 02-10-2020 omega 7-gjx-kbl-fish oil 290 mg-430 mg-1.4 gram capsule Active CAP PO February 10, 2020 10:40am Start: 02-10-2020 End: 02-06-2022 omega 7-cul-gjr-fish oil 290 mg-430 mg-1.4 gram capsule Discontinued CAP PO February 10, 2020 1:00am February 06, 2022 9:49am Start: 02-10-2020 End: 02-06-2022 omega 0-git-upu-fish oil 290 mg-430 mg-1.4 gram capsule Discontinued CAP PO February 10, 2020 12:00am February 06, 2022 8:49am omega3 1,000 cl-srw-tiq-othe r sp2x-rvco oil 1,400 mg capsule,delay rel (11 sources) Start: 02-10-2020 omega3 1,000 m z-elb-lea-other ik4o-ogxx oil 1,400 mg capsule,delay rel Active CAP PO February 10, 2020 10:40am Start: 02-10-2020 End: 02-06-2022 omega3 1,000 aw-rdx-abe-othe r ry7f-kxan oil 1,400 mg capsule,delay rel Discontinued CAP PO February 10, 2020 1:00am February 06, 2022 9:49am Start: 02-10-2020 End: 02-06-2022 omega3 1,000 ub-qyc-qnk-othe r rp8k-vhtj oil 1,400 mg capsule,delay rel Discontinued CAP [...] tablet Discontinued 5 mg PO DAILY 30 June 26, 2023 12:00am July 10, 2023 [...] 1:00am March 14, 2024 1:10am Vit D3-Vit V-Terebietu-Pdch (20 sources) Vitamin D, Non-Standardized Food Allergenic Extract, Non-Standardized Plant Allergenic Extract Start: 04-04-2024 End: 07-29-2024 Vit D3-Vit N-Ayacaltxw-Uhyp [phone] prgp-glq-lt-mg tablet Discontinued 1 {tbl} PO daily April 04, 2024 1:00am July 29, 2024 11:15am Start: 04-04-2024 Vit D3-Vit K-B erberine-Hops [phone] newp-yjw-hd-mg tablet Active 1 {tbl} PO daily April 04, 2024 1:00am Start: 04-04-2024 Vit D3-Vit K-B erberine-Hops [phone] xfdk-bgz-qe-mg tablet Active 1 {tbl} PO daily April [...] 01, 2013 12:00am January 27, 2020 12:49pm Lnhfjex-Hqfqie-Bbctrd-Glycos am (Beyond Bone Broth) 300 mg calcium- 1,700 mg/scoop powder (20 sources) Start: 05-11-2023 End: 08-06-2023 Izbpcqh-Fhlftb-Gcyaxc-Glycos am (Beyond Bone Broth) 300 mg calcium- 1,700 mg/scoop powder Discontinued 0 PO .COMPLEX May 11, 2023 12:00am August 06, 2023 1:07pm 2 tablespoons BID orally; Start: 05-11-2023 End: 08-06-2023 Kizqsht-Hoyobt-Gxftey-Glycos am (Beyond Bone Broth) 300 mg calcium- [...] Ergocalciferol (Vitamin D2) 50,000 UNIT capsule Discontinued 78098 U PO Q7D October 01, 2013 12:00am [...] mg by mouth twice daily. GI Dr Ambrocio (3 sources) Start: 08-17-[address] Ambrocio GI Pro, 1 tab, Oral, BID, 0 [...] qDay, # 30 tab(s), 5 Refill(s), Pharmacy: [id number], 162.6, cm, 05/03/24 9:50:00 EDT, [...] Take 2.5 mg by mouth as needed. Baldwin 0-Toa-Naz-Fish Oil (Epa-Dha 720) 290-430-1.4 mg-mg-gram capsule (20 sources) Start: 02-10-2020 End: 02-06-2022 Baldwin 9-Qnq-Rej-Fish Oil (Epa-Dha 720) 290-430-1.4 mg-mg-gram capsule Discontinued NMA PO February 10, 2020 1:00am February 06, 2022 9:49am Start: 02-10-2020 End: 02-06-2022 Baldwin 9-Unl-Bsk-Fish Oil (Ep a-Dha 720) 290-430-1.4 mg-mg-gram capsule Discontinued NMA PO February 10, 2020 12:00am February 06, 2022 8:49am Pwxyo-3b-Upc-Epa-Fish Oil 1,000-1,400 mg capsule,delayed release(DR/EC) (20 sources) Start: 02-10-2020 End: 02-06-2022 Giqsz-8f-Lov-Epa-Fish Oil 1,000-1,400 mg capsule,delayed release(DR/EC) Discontinued NMA PO February 10, 2020 1:00am February 06, 2022 9:49am Start: 02-10-2020 End: 02-06-2022 Fqwqe-6f-Ubl-Epa-Fish Oil 1, 000-1,400 mg capsule,delayed release(DR/EC) Discontinued [...] Daily, # 30 tab(s), 3 Refill(s), Pharmacy: [id number], 162.6, cm, 05/03/24 9:50:00 EDT, Height, kg, 05/03/24 9:50:00 EDT, Dosing Weight Start Date: 05/03/24 Status: Ordered Quantity: 30.0 Unit: tab(s) Repeat number: 4 Start: 01-27-2024 rosuvastatin 5 mg oral tablet Dose : 5 mg = 1 tab(s), Oral, Daily, # 30 tab(s), 0 Refill(s), Pharmacy: [id number], 163.6, cm, 01/27/24 11:22:00 EST, [...] 5 mg/100 mL pgbk PREMIX piggyback Zoledronic Jhaw-Qyjngdnh-Whvdd Active 1 EACH .Route ONCE 100 February 07, 2021 11:08am onceinfuse over 20 minutes 02/07/2021 Active Start: 02-07-2021 End: 07-22-2024 Zoledronic Otqm-Sapmbmpk-Bhg er 5 mg/100 mL piggyback Discontinued 1 [...] contraction; Translations: [Atrial premature depolarization] 08-13-2024 Chronic Cardiac dysrhythmias (20 sources) Palpitations; Translations: [Tachycardia] Onset: 08-06-2020 Episodic Cataract (20 sources) Bilateral cataracts; Translations: [Unspecified cataract] 07-06-2020 Chronic Coagulation and hemorrhagic disorders (1 source) Blood coagulation disorder; Translations: [Coagulation defect, unspecified] Chronic Conduction disorders (6 sources) 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 She was started on Crestor at that time, but she stopped it due to just generally not feeling well. She is open to retrying the Crestor. Deficiency and other anemia (20 sources) Anemia; Translations: [Anemia, unspecified] 08-30-2024 Episodic Disorders of lipid metabolism (20 sources) [...] pain; Translations: [Epigastric pain] Onset: 07-15-2022 Episodic Deficiency and other anemia (1 source) Anemia, unspecified; Translations: [Anemia, unspecified] Onset: 09-06-2024 Episodic Diseases of mouth; excluding dental (20 [...] Test Name Value Interpretation Reference Range Facility Emergency Department Summary on 12-11-2024 Emergency Department Summary Normal [facility] 25(OH)D3 [facility] 25-hydroxyvitamin D3 [Mass/Vol] 90.6 ng/mL High 31.0-80.0 [facility] Comment on above: Order Comment: Speci men Type: BLOOD SPECIMEN Ordering Facility: [facility] Address: [address] [place] [address], [place] [address] Result Comment: Clas sification of 25 [place] Vitamin D status: Deficiency/Insufficiency: < or = 30 ng/ml. Sufficiency/Optimal Levels: 31-80 ng/mL Toxicity: > 100 ng/mL. Test performed by chemiluminescent immunoassay. Performed By: #### 2 4321-2 #### [facility] CLIA [id number] [address] [place] [address] [place] CBC W Auto Differential pane l (Bld)on 11-26-2024 Basophils (Bld) [#/Vol] 0.04 10*3/uL Normal <0.11 [facility] Comment on above: Order Comment: Speci men Type: BLOOD SPECIMEN Ordering Facility: [facility] Address: [address] [place] [address] Performed By: #### 5 7021-8 #### [facility] CLIA [id number] [address] [address] [place] Basophils/100 WBC (Bld) 0.6 % Normal [facility] Comment on above: Order Comment: Speci men Type: BLOOD SPECIMEN Ordering Facility: [facility] Address: [address] [place] [address] Performed By: #### 5 7021-8 #### [facility] CLIA [id number] [address] [place] [id number] [place] Differential cell count method Nom (Bld) Auto Normal [facility] Comment on above: Order Comment: Speci men Type: BLOOD SPECIMEN Ordering Facility: [facility] Address: [address] [place] [address] Performed By: #### 5 7021-8 #### [facility] CLIA [id number] [address] [place] [id number] [place] Eosinophils (Bld) [#/Vol] 10*3/uL Normal <0.46 [facility] Comment on above: Order Comment: Speci men Type: BLOOD SPECIMEN Ordering Facility: [facility] Address: [address] [place] [address] Performed By: #### 5 7021-8 #### [facility] CLIA [id number] [address] [address] [place] Eosinophils/100 WBC (Bld) 0.3 % Normal [facility] Comment on above: Order Comment: Speci men Type: BLOOD SPECIMEN Ordering Facility: [facility] Address: [address] [place] [address] Performed By: #### 5 7021-8 #### [facility] CLIA [id number] [address] [address] [place] Erythrocyte distribution width (RBC) [Ratio] 12.1 % Normal 11.5-15.0 [facility] Comment on above: Order Comment: Speci men Type: BLOOD SPECIMEN Ordering Facility: [facility] Address: [address] [place] [address] Performed By: #### 5 7021-8 #### [facility] CLIA [id number] [address] [place] [address] [place] Hematocrit (Bld) [Volume fraction] 37.9 % Normal 36.0-46.0 [facility] Comment on above: Order Comment: Speci men Type: BLOOD SPECIMEN Ordering Facility: [facility] Address: [address] [place] [address] Performed By: #### 5 7021-8 #### [facility] CLIA [id number] [address] [place] [address] [place] Hemoglobin (Bld) [Mass/Vol] 13.1 g/dL Normal 11.5-15.5 [facility] Comment on above: Order Comment: Speci men Type: BLOOD SPECIMEN Ordering Facility: [facility] Address: [address] [place] [address] Performed By: #### 5 7021-8 #### [facility] CLIA [id number] [address] [place] [address] [place] Immature granulocytes (Bld) [#/Vol] 10*3/uL Normal <0.10 [facility] Comment on above: Order Comment: Speci men Type: BLOOD SPECIMEN Ordering Facility: [facility] Address: [address] [place] [address] Performed By: #### 5 7021-8 #### [facility] CLIA [id number] [address] [place] [address] [place] Immature granulocytes/100 WBC (Bld) 0.3 % Normal [facility] Comment on above: Order Comment: Speci men Type: BLOOD SPECIMEN Ordering Facility: [facility] Address: [address] [place] [address] Performed By: #### 5 7021-8 #### [facility] CLIA [id number] [address] [place] [address] [place] Lymphocytes (Bld) [#/Vol] 0.77 10*3/uL Low 1.00-4.00 [facility] Comment on above: Order Comment: Speci men Type: BLOOD SPECIMEN Ordering Facility: [facility] Address: [address] [place] [address] Performed By: #### 5 7021-8 #### [facility] CLIA [id number] [address] [place] [address] [place] Lymphocytes/100 WBC (Bld) 11.3 % Normal [facility] Comment on above: Order Comment: Speci men Type: BLOOD SPECIMEN Ordering Facility: [facility] Address: [address] [place] [address] Performed By: #### 5 7021-8 #### [facility] CLIA [id number] [address] [place] [address] [place] MCH (RBC) [Entitic mass] 32.3 pg Normal 26.0-34.0 [facility] Comment on above: Order Comment: Speci men Type: BLOOD SPECIMEN Ordering Facility: [facility] Address: [address] [place] [address] Performed By: #### 5 7021-8 #### [facility] CLIA [id number] [address] [place] [id number] [place] MCHC (RBC) [Mass/Vol] 34.6 g/dL Normal 30.5-36.0 [facility] Comment on above: Order Comment: Speci men Type: BLOOD SPECIMEN Ordering Facility: [facility] Address: [address] [place] [address] Performed By: #### 5 7021-8 #### [facility] CLIA [id number] [address] [place] [id number] [place] MCV (RBC) [Entitic vol] 93.6 fL Normal 80.0-100.0 [facility] Comment on above: Order Comment: Speci men Type: BLOOD SPECIMEN Ordering Facility: [facility] Address: [address] [place] [address] Performed By: #### 5 7021-8 #### [facility] CLIA [id number] [address] [place] [id number] [place] Monocytes (Bld) [#/Vol] 0.70 10*3/uL Normal <0.87 [facility] Comment on above: Order Comment: Speci men Type: BLOOD SPECIMEN Ordering Facility: [facility] Address: [address] [place] [address] Performed By: #### 5 7021-8 #### [facility] CLIA [id number] [address] [place] [address] [place] Monocytes/100 WBC (Bld) 10.3 % Normal [facility] Comment on above: Order Comment: Speci men Type: BLOOD SPECIMEN Ordering Facility: [facility] Address: [address] [place] [address] Performed By: #### 5 7021-8 #### [facility] CLIA [id number] [address] [place] [id number] [place] Neutrophils (Bld) [#/Vol] 5.27 10*3/uL Normal 1.45-7.50 [facility] Comment on above: Order Comment: Speci men Type: BLOOD SPECIMEN Ordering Facility: [facility] Address: [address] [place] [address] Performed By: #### 5 7021-8 #### [facility] CLIA [id number] [address] [place] [id number] [place] Neutrophils/100 WBC (Bld) 77.2 % Normal [facility] Comment on above: Order Comment: Speci men Type: BLOOD SPECIMEN Ordering Facility: [facility] Address: [address] [place] [address], [place] [address] Performed By: #### 5 7021-8 #### [facility] CLIA [id number] [address] [place] [place] [id number] [place] Nucleated RBC (Bld) [#/Vol] 10*3/uL Normal <0.01 [facility] Comment on above: Order Comment: Speci men Type: BLOOD SPECIMEN Ordering Facility: [facility] Address: [address] [place] [address] Performed By: #### 5 7021-8 #### [facility] CLIA [id number] [address] [place] [place] [id number] [place] Nucleated RBC/100 WBC (Bld) [Ratio] 0.0 /100 WBC Normal [facility] Comment on above: Order Comment: Speci men Type: BLOOD SPECIMEN Ordering Facility: [facility] Address: [address] [place] [address] Performed By: #### 5 7021-8 #### [facility] CLIA [id number] [address] [address] [place] Platelet mean volume (Bld) [Entitic vol] 9.1 fL Normal 9.0-12.7 [facility] Comment on above: Order Comment: Speci men Type: BLOOD SPECIMEN Ordering Facility: [facility] Address: [address] [place] [address] Performed By: #### 5 7021-8 #### [facility] CLIA [id number] [address] [address] [place] Platelets (Bld) [#/Vol] 334 10*3/uL Normal 150-400 [facility] Comment on above: Order Comment: Speci men Type: BLOOD SPECIMEN Ordering Facility: [facility] Address: [address] [place] [address] Performed By: #### 5 7021-8 #### [facility] CLIA [id number] [address] [place] [address] [place] RBC (Bld) [#/Vol] 4.05 10*6/uL Normal 3.90-5.20 [facility] Comment on above: Order Comment: Speci men Type: BLOOD SPECIMEN Ordering Facility: [facility] Address: [address] [place] [address] Performed By: #### 5 7021-8 #### [facility] CLIA [id number] [address] [place] [address] [place] WBC (Bld) [#/Vol] 6.82 10*3/uL Normal 3.70-11.00 [facility] Comment on above: Order Comment: Speci men Type: BLOOD SPECIMEN Ordering Facility: [facility] Address: [address] [place] [address] Performed By: #### 5 7021-8 #### [facility] CLIA [id number] [address] [place] [address] [place] Comprehensive metabolic 2000 panelon 11-26-2024 Albumin [Mass/Vol] 4.5 g/dL Normal 3.9-4.9 [facility] Comment on above: Order Comment: Speci men Type: BLOOD SPECIMEN Ordering Facility: [facility] Address: [address] [place] [address] Performed By: #### 2 4321-2 #### [facility] CLIA [id number] [address] [place] [address] [place] ALP [Catalytic activity/Vol] 54 U/L Normal 34-123 [facility] Comment on above: Order Comment: Speci men Type: BLOOD SPECIMEN Ordering Facility: [facility] Address: [address] [place] [address] Performed By: #### 2 4321-2 #### [facility] CLIA [id number] [address] [place] [place] [id number] [place] ALT [Catalytic activity/Vol] 9 U/L Normal 7-38 [facility] Comment on above: Order Comment: Speci men Type: BLOOD SPECIMEN Ordering Facility: [facility] Address: [address] [place], [place] [address] Performed By: #### 2 4321-2 #### [facility] CLIA [id number] [address] [address] [place] Anion gap [Moles/Vol] 14 mmol/L Normal 8-15 [facility] Comment on above: Order Comment: Speci men Type: BLOOD SPECIMEN Ordering Facility: [facility] Address: [address] [place] [address] Performed By: #### 2 4321-2 #### [facility] CLIA [id number] [address] [place] [place] [phone] [place] AST [Catalytic activity/Vol] 16 U/L Normal 13-35 [facility] Comment on above: Order Comment: Speci men Type: BLOOD SPECIMEN Ordering Facility: [facility] Address: [address] [place] [address] Performed By: #### 2 4321-2 #### [facility] CLIA [id number] [address] [address] [place] Bilirubin [Mass/Vol] 0.5 mg/dL Normal 0.2-1.3 [facility] Comment on above: Order Comment: Speci men Type: BLOOD SPECIMEN Ordering Facility: [facility] Address: [address] [place] [address] Performed By: #### 2 4321-2 #### [facility] CLIA [id number] [address] [address] [place] Calcium [Mass/Vol] 9.5 mg/dL Normal 8.5-10.2 [facility] Comment on above: Order Comment: Speci men Type: BLOOD SPECIMEN Ordering Facility: [facility] Address: [address] [place] [address] Performed By: #### 2 4321-2 #### [facility] CLIA [id number] [address] [address] [place] Chloride [Moles/Vol] 98 mmol/L Normal 98-107 [facility] Comment on above: Order Comment: Speci men Type: BLOOD SPECIMEN Ordering Facility: [facility] Address: [address] [place] [address] Performed By: #### 2 4321-2 #### [facility] CLIA [id number] [address] [address] [place] CO2 [Moles/Vol] 22 mmol/L Normal 22-30 [facility] Comment on above: Order Comment: Speci men Type: BLOOD SPECIMEN Ordering Facility: [facility] Address: [address] [place] [address] Performed By: #### 2 4321-2 #### [facility] CLIA [id number] [address] [place] [place] [id number] [place] Creatinine [Mass/Vol] 0.60 mg/dL Normal 0.58-0.96 [facility] Comment on above: Order Comment: Speci men Type: BLOOD SPECIMEN Ordering Facility: [facility] Address: [address] [place] [address] Performed By: #### 2 4321-2 #### [facility] CLIA [id number] [address] [address] [place] eGFRcr SerPlBld CKD-EPI 2020 93 mL/min/1.73m??? Normal >=60 [facility] Comment on above: Order Comment: Speci men Type: BLOOD SPECIMEN Ordering Facility: [facility] Address: [address] [place] [address] Result Comment: Rosangela mated Glomerular Filtration Rate [...] GFR. Performed By: #### 2 4321-2 #### [facility] CLIA [id number] [address] [address] [place] Glucose [Mass/Vol] 90 mg/dL Normal 74-99 [facility] Comment on above: Order Comment: Speci men Type: BLOOD SPECIMEN Ordering Facility: [facility] Address: [address] [place] [address] Result Comment: The [place] Diabetes Association (ADA) provides guidance for cutoff [...] Standards of Medical Care in Diabetes 2016, [place] [employer]. Diabetes Care. 2016.39(Suppl 1). Performed By: #### 2 4321-2 #### [facility] CLIA [id number] [address] [place] [id number] [place] Potassium [Moles/Vol] 3.9 mmol/L Normal 3.7-5.1 [facility] Comment on above: Order Comment: Speci men Type: BLOOD SPECIMEN Ordering Facility: [facility] Address: [address] [place] [address] Performed By: #### 2 4321-2 #### [facility] CLIA [id number] [address] [address] [place] Protein [Mass/Vol] 7.0 g/dL Normal 6.3-8.0 [facility] Comment on above: Order Comment: Speci men Type: BLOOD SPECIMEN Ordering Facility: [facility] Address: [address] [place] [address] Performed By: #### 2 4321-2 #### [facility] CLIA [id number] [address] [place] [id number] [place] Sodium [Moles/Vol] 134 mmol/L Low 136-144 [facility] Comment on above: Order Comment: Speci men Type: BLOOD SPECIMEN Ordering Facility: [facility] Address: [address] [place] [address] Performed By: #### 2 4321-2 #### [facility] CLIA [id number] [address] [place] [address] [place] Urea nitrogen [Mass/Vol] 11 mg/dL Normal 7-21 [facility] Comment on above: Order Comment: Speci men Type: BLOOD SPECIMEN Ordering Facility: [facility] Address: [address] [place] [address] Performed By: #### 2 4321-2 #### [facility] CLIA [id number] [address] [place], [place] [id number] [place] Lipid 1996 panelon 5 Cholesterol [Mass/Vol] 223 mg/dL High <200 [facility] Comment on above: Order Comment: Speci men Type: BLOOD SPECIMEN Ordering Facility: [facility] Address: [address] [place] [address] Result Comment: <200 mg/dL, Desirable 200-239 mg/dL, Borderline high >239 mg/dL, High Performed By: #### 2 4321-2 #### [facility] CLIA [id number] [address] [place] [address] [place] Cholesterol in HDL [Mass/Vol] 101 mg/dL Normal >39 [facility] Comment on above: Order Comment: Speci men Type: BLOOD SPECIMEN Ordering Facility: [facility] Address: [address] [place] [address] Result Comment: 40-5 9 mg/dL, Acceptable >59 mg/dL, High: Negative risk factor for coronary heart disease <40 mg/dL, Low: Positive risk factor for coronary heart disease Performed By: #### 2 4321-2 #### [facility] CLIA [id number] [address] [place] [id number] [place] Cholesterol in LDL [Mass/Vol] 110 mg/dL High <100 [facility] Comment on above: Order Comment: Speci men Type: BLOOD SPECIMEN Ordering Facility: [facility] Address: [address] [place] [address] Result Comment: <100 mg/dL, Optimal 100-129 mg/dL, Near optimal/above optimal 130-159 mg/dL, Borderline high 160-189 mg/dL, High >189 mg/dL, Very high Secondary prevention optimal LDL Cholesterol levels are recommended to be <70 mg/dL LDL cholesterol is calculated using the Hollis-NIH equation. Performed By: #### 2 4321-2 #### [facility] CLIA [id number] [address] [place] [address] [place] Cholesterol in LDL/Cholesterol in HDL [Mass ratio] 1.09 {ratio} Normal <2.54 [facility] Comment on above: Order Comment: Speci men Type: BLOOD SPECIMEN Ordering Facility: [facility] Address: [address] [place] [address] Result Comment: Bita marley: 1. National Cholesterol Education Program ATP III Guideline At-A-Glance Quick Desk Reference: National Heart, Lung, and Blood [place]. National Institutes of Health. 2001: NIH Publication No. 01-3305. 2. An International Atherosclerosis Society position paper: global recommendations for the management of dyslipidemia: executive summary, Atherosclerosis. 2014: 232(2):410-413. Performed By: #### 2 4321-2 #### [facility] CLIA [id number] [address] [place] [address] [place] Cholesterol in VLDL [Mass/Vol] 11 mg/dL Normal <30 [facility] Comment on above: Order Comment: Crystali men Type: BLOOD SPECIMEN Ordering Facility: [facility] Address: [address] [place] [address] Performed By: #### 2 4321-2 #### [facility] CLIA [id number] [address] [place] [id number] [place] Cholesterol non HDL [Mass/Vol] 122 mg/dL Normal <130 [facility] Comment on above: Order Comment: Speci men Type: BLOOD SPECIMEN Ordering Facility: [facility] Address: [address] [place] [address] Result Comment: <130 mg/dL, Optimal 130-159 mg/dL, Near optimal/above optimal 160-189 mg/dL, Borderline high 190-219 mg/dL, High >219 mg/dL, Very high Secondary prevention optimal non HDL Cholesterol levels are recommended to be <100 mg/dL Performed By: #### 2 4321-2 #### [facility] CLIA [id number] [address] [place] [address] [place] Cholesterol.total/Cho lesterol in HDL [Mass ratio] 2.21 {ratio} Normal <5.10 [facility] Comment on above: Order Comment: Speci men Type: BLOOD SPECIMEN Ordering Facility: [facility] Address: [address] [place] [address] Performed By: #### 2 4321-2 #### [facility] CLIA [id number] [address] [place] [address] [place] FASTING TIME 12 hrs Normal [facility] Comment on above: Order Comment: Speci men Type: BLOOD SPECIMEN Ordering Facility: [facility] Address: [address] [place] [address] Performed By: #### 2 4321-2 #### [facility] CLIA [id number] [address] [place], [place] [address] [place] Triglyceride [Mass/Vol] 69 mg/dL Normal <150 [facility] Comment on above: Order Comment: Speci men Type: BLOOD SPECIMEN Ordering Facility: [facility] Address: [address] [place] [address] Result Comment: <150 mg/dL, Normal 150-199 mg/dL, Borderline high 200-499 mg/dL, High >499 mg/dL, Very high Performed By: #### 2 4321-2 #### [facility] CLIA [id number] [address] [place] [address] [place] [address] [place] Orthopedic Visit Reporton Orthopedic Visit Report Normal [facility] Emergency Department Summary on 11-21-2024 Emergency Department Summary Normal [facility] Knee 4 or More Viewson 11-21 Knee 4 or More Views Normal [facility] Venous Duplex US, Unilateral on 11-21-2024 Venous Duplex US, Unilateral Normal [facility] Venous duplex ultrasound rep ortOrdered By: Zhang Balderas on 11-21-2024 US Vein [facility] [address] [place] [address] Venous Duplex US, Unilateral 11/21/24902 MR#: [id number] Acct: [id number] Name: KELLI MONROY Rep #:[id number] : 1950 74 From: Zhang Balderas MD [...] patent and compressible segmentally. Ordering Physician: Jefry Mir Referring Physician: Irving Collins Performed By: Clifford Elliott RVT 11/21/241641 Date _ Zhang Balderas MD CC: Dr. Jefry Mir, DO; Dr. Angel Fuller MD ~ Date Dictated: 11/21/24902 Date Transcribed: 11/21/241641 System Dispatcher: Signed [facility] Other Phone: Office Visit Reporton 2024 Office Visit Report Normal [facility] Neurology Visit Reporton Neurology Visit Report Normal [facility] Orthopedic Visit Reporton Orthopedic Visit Report Normal [facility] Office Visit Reporton 2024 Office Visit Report Normal [facility] Office Visit Reporton 2024 Office Visit Report Normal [facility] Orthopedic Visit Reporton Orthopedic Visit Report Normal [facility] Knee 4 or More Viewson 09-05 Knee 4 or More Views Normal [facility] Orthopedic Visit Reporton Orthopedic Visit Report Normal [facility] Ferritinon 08-31-2024 Ferritin [Mass/Vol] 87 ng/mL Normal 22-378 [facility] Comment on above: Performed By: #### L 503.6150, L503.6550, L503.0106 ####[facility] [address] [place], [address] Ironon 08-31-2024 Iron [Mass/Vol] 74 ug/dL Normal 50-170 [facility] Comment on above: Performed By: #### L 503.6150, L503.6550, L503.0106 ####[facility] [address] [place], [place], [address] Iron measurement (mass/mass) Ordered By: Anthony Mckeon on 08-31-2024 Iron (Unsp spec) [Mass/Mass] 74 ug/dL 50-170 [facility] Serum or plasma ferritin luis armando surement (mass/volume)Ordered By: Anthony Mckeon on 08-31-2024 Ferritin [Mass/Vol] 87 ng/mL 22-378 [facility] Vitamin B12on 08-31-2024 Cobalamin (Vitamin B12) [Mass/Vol] 521 pg/mL Normal 180-914 [facility] Comment on above: Performed By: #### L 503.6150, L503.6550, L503.0106 ####[facility] [address] [place], [place], [address] Vitamin B12 ser/plasOrdered By: Anthony Mckeon on 08-31-2024 Cobalamin (Vitamin B12) [Mass/Vol] 521 pg/mL 180-914 [facility] Neurology Visit Reporton Neurology Visit Report Normal [facility] LABORATORYOrdered By: SYSTEM SYSTEM on 08-18-2024 Natriuretic peptide.B prohormone N-Terminal [Mass/Vol] 303 pg/mL Normal 0 - 450 pg/mL AO ADM SS Comment on above: Interpretive Data: N T-proBNP results of less than 300 pg/mL effectively rules out acute congestive heart failure with 99% negative predictive value. PBNPon 08-18-2024 Natriuretic peptide B (Bld) [Mass/Vol] 303 pg/mL Normal 0-450 [facility] Comment on above: Result Comment: NT-p roBNP results of less than 300 pg/mL effectively rules out acute congestive heart failure with 99% negative predictive value. Performed By: #### P BNP #### [address] [address] Office Visit Reporton 2024 Office Visit Report Normal [facility] 12 Lead EKGon 08-13-2024 12 Lead EKG Normal [facility] Absolute lymphocyte countOrd ered By: Julien Holder on 08-13-2024 Lymphocytes Auto (Unsp spec) [#/Vol] 1.21 10*3/uL 0.83-4.51 [facility] Absolute neutrophil countOrd ered By: Julien Holder on 08-13-2024 Neutrophils (Bld) [#/Vol] 5.3 10*3/uL 2.0-7.7 [facility] Anion gap in Serum or Plasma Ordered By: Julien Holder on 08-13-2024 Anion gap [Moles/Vol] 12 mmol/L 07-07 [facility] Automated lymphocyte count a s percentage of total leukocytesOrdered By: Julien Holder on 08-13-2024 Lymphocytes/100 WBC Auto (Unsp spec) 16.0 % Low [facility] BUN/creatinine ratioOrdered By: Julien Holder on 08-13-2024 Urea nitrogen/Creatinine [Mass ratio] 11.8 mg/mg 12-12 [facility] Basic Metabolic Profile (BMP )on 08-13-2024 BUN/CRE 11.8 RATIO Normal 12-12 [facility] Comment on above: Performed By: #### L 501.5200, L100.0100, L501.9520, L500.2500 ####[facility] [address] [place], [address] Calcium [Mass/Vol] 9.2 mg/dL Normal 7.6-11.0 [facility] Comment on above: Performed By: #### L 501.5200, L100.0100, L501.9520, L500.2500 ####[facility] [address] [place], [address] Chloride [Moles/Vol] 98 mmol/L Normal 98-108 [facility] Comment on above: Performed By: #### L 501.5200, L100.0100, L501.9520, L500.2500 ####[facility] [address] [place], [address] CO2 [Moles/Vol] 23.4 mmol/L Normal 21.0-32.0 [facility] Comment on above: Performed By: #### L 501.5200, L100.0100, L501.9520, L500.2500 ####[facility] [address] [place], [address] Creatinine [Mass/Vol] 0.51 mg/dL Low 0.70-1.20 [facility] Comment on above: Performed By: #### L 501.5200, L100.0100, L501.9520, L500.2500 ####[facility] [address] [place], [address] ECRCL 57.40 ml/min Normal 50-250 [facility] Comment on above: Performed By: #### L 501.5200, L100.0100, L501.9520, L500.2500 ####[facility] [address] [place], [address] GAP 12 Normal 5-15 [facility] Comment on above: Performed By: #### L 501.5200, L100.0100, L501.9520, L500.2500 ####[facility] [address] [place], [address] GFR/1.73 sq M.predicted among non-blacks MDRD (S/P/Bld) [Vol rate/Area] 97 mL/min/{1.73_m2} Normal >60 [facility] Comment on above: Result Comment: mL/m in/1.73m2 CKD-EPI Creatinine Equation (2020) Performed By: #### L 501.5200, L100.0100, L501.9520, L500.2500 ####[facility] [address] [place], [address] Glucose [Mass/Vol] 100 mg/dL High 70-99 [facility] Comment on above: Performed By: #### L 501.5200, L100.0100, L501.9520, L500.2500 ####[facility] [address] [place], [address] Potassium [Moles/Vol] 4.0 mmol/L Normal 3.3-5.1 [facility] Comment on above: Performed By: #### L 501.5200, L100.0100, L501.9520, L500.2500 ####[facility] [address] [place], [address] Sodium [Moles/Vol] 133 mmol/L Normal 133-145 [facility] Comment on above: Performed By: #### L 501.5200, L100.0100, L501.9520, L500.2500 ####[facility] [address] [place], [address] Urea nitrogen [Mass/Vol] 6 mg/dL Normal 4-19 [facility] Comment on above: Performed By: #### L 501.5200, L100.0100, L501.9520, L500.2500 ####[facility] [address] [place], [address] Basophil percentageOrdered B y: Julien Holder on 08-13-2024 Basophils/100 WBC (Bld) 0.7 % 0-1 [facility] CBC W/Diff, Automatedon 06-2 Absolute Lymph 1.21 X10 3/uL Normal 0.83-4.51 [facility] Comment on above: Performed By: #### L 501.5200, L100.0100, L501.9520, L500.2500 ####[facility] [address] [place], [address] Absolute Neut 5.3 X10 3/uL Normal 2.0-7.7 [facility] Comment on above: Performed By: #### L 501.5200, L100.0100, L501.9520, L500.2500 ####[facility] [address] [place], [address] Basophils/100 WBC (Bld) 0.7 % Normal 0-1 [facility] Comment on above: Performed By: #### L 501.5200, L100.0100, L501.9520, L500.2500 ####[facility] [address] [place], [address] Eosinophils/100 WBC (Bld) 0.7 % Normal 0-5 [facility] [facility] Comment on above: Performed By: #### L 501.5200, L100.0100, L501.9520, L500.2500 ####[facility] [address] [place], [address] Erythrocyte distribution width (RBC) [Ratio] 11.9 % Normal 11.6-14.6 [facility] Comment on above: Performed By: #### L 501.5200, L100.0100, L501.9520, L500.2500 ####[facility] [address] [place], [address] Hematocrit (Bld) [Volume fraction] 36.2 % Low 37-47 [facility] Comment on above: Performed By: #### L 501.5200, L100.0100, L501.9520, L500.2500 ####[facility] [address] [place], [address] Hemoglobin (Bld) [Mass/Vol] 12.4 g/dL Normal 12.0-15.0 [facility] Comment on above: Performed By: #### L 501.5200, L100.0100, L501.9520, L500.2500 ####[facility] [address] [place], [address] IG% 0.500 Normal 0.0-0.9 [facility] Comment on above: Result Comment: IG% - Immature Granulocytes (promyelocytes, myelocytes andmetamyelocytes) > 1% indicates that a LEFT SHIFT is Present. Performed By: #### L 501.5200, L100.0100, L501.9520, L500.2500 ####[facility] [address] [place], [address] Lymphocytes/100 WBC (Bld) 16.0 % Low 19-41 [facility] Comment on above: Performed By: #### L 501.5200, L100.0100, L501.9520, L500.2500 ####[facility] [address] [place], [address] MCH (RBC) [Entitic mass] 32.1 pg High 27.0-32.0 [facility] Comment on above: Performed By: #### L 501.5200, L100.0100, L501.9520, L500.2500 ####[facility] [address] [place], [address] MCHC (RBC) [Mass/Vol] 34.3 g/dL Normal 32-36 [facility] Comment on above: Performed By: #### L 501.5200, L100.0100, L501.9520, L500.2500 ####[facility] [address] [place], [address] MCV (RBC) [Entitic vol] 93.8 fL Normal 81-99 [facility] Comment on above: Performed By: #### L 501.5200, L100.0100, L501.9520, L500.2500 ####[facility] [address] [place], [address] Monocytes/100 WBC (Bld) 12.4 % High 0-10 [facility] Comment on above: Performed By: #### L 501.5200, L100.0100, L501.9520, L500.2500 ####[facility] [address] [place], [address] Neutrophils/100 WBC (Bld) 69.7 % Normal 47-70 [facility] Comment on above: Performed By: #### L 501.5200, L100.0100, L501.9520, L500.2500 ####[facility] [address] [place], [address] Nucleated RBC (Bld) [#/Vol] 0 10*3/uL Normal 0-5 [facility] Comment on above: Performed By: #### L 501.5200, L100.0100, L501.9520, L500.2500 ####[facility] [address] [place], [address] Platelet mean volume (Bld) [Entitic vol] 9.0 fL Normal 6.2-12.0 [facility] Comment on above: Performed By: #### L 501.5200, L100.0100, L501.9520, L500.2500 ####[facility] [address] [place], [address] Platelets (Bld) [#/Vol] 301 10*3/uL Normal 150-450 [facility] Comment on above: Performed By: #### L 501.5200, L100.0100, L501.9520, L500.2500 ####[facility] [address] [place], [address] RBC (Bld) [#/Vol] 3.86 10*6/uL Low 4.2-5.4 [facility] Comment on above: Performed By: #### L 501.5200, L100.0100, L501.9520, L500.2500 ####[facility] [address] [place], [address] RDW SD 41.0 fl Normal 35.1-43.9 [facility] Comment on above: Performed By: #### L 501.5200, L100.0100, L501.9520, L500.2500 ####[facility] [address] [place], [address] WBC (Bld) [#/Vol] 7.6 10*3/uL Normal 4.4-11.0 [facility] Comment on above: Performed By: #### L 501.5200, L100.0100, L501.9520, L500.2500 ####[facility] [address] [place], [address] Carbon dioxide, total [Moles /volume] in Central venous bloodOrdered By: Julien Holder on 08-13-2024 CO2 [Moles/Vol] 23.4 mmol/L 21.0-32.0 [facility] Chloride assayOrdered By: Juan Holder on 08-13-2024 Chloride [Moles/Vol] 98 mmol/L 98-108 [facility] Emergency Department Summary on 08-13-2024 Emergency Department Summary Normal [facility] Eosinophil percentageOrdered By: Julien Holder on 08-13-2024 Eosinophils/100 WBC (Bld) 0.7 % 0-5 [facility] Erythrocyte distribution wid th ratioOrdered By: Julien Holder on 08-13-2024 Erythrocyte distribution width (RBC) [Ratio] 11.9 % 11.6-14.6 [facility] Erythrocyte distribution wid th standard deviationOrdered By: Julien Holder on 08-13-2024 Erythrocyte distribution width (RBC) [Ratio] 41.0 fl 35.1-43.9 [facility] Glomerular filtration rate ( GFR) estimation/1.73 sq m using serum, plasma, or whole bOrdered By: Julien Holder on 08-13-2024 GFR/1.73 sq M.predicted among non-blacks MDRD (S/P/Bld) [Vol rate/Area] 97 mL/min/{1.73_m2} >60 [facility] Comment on above: mL/min/1.73m2 CKD-EP I Creatinine Equation (2020) Hematocrit Auto (Bld) [Volum e fraction]Ordered By: Julien Holder on 08-13-2024 Hematocrit (Bld) [Volume fraction] 36.2 % Low 37-47 [facility] Hemoglobin measurementOrdere d By: Julien Holder on 08-13-2024 Hemoglobin (Bld) [Mass/Vol] 12.4 g/dL 12.0-15.0 [facility] Immature granulocytes/100 WB C Auto (Bld)Ordered By: Julien Holder on 08-13-2024 Immature granulocytes/100 WBC (Bld) 0.500 % 0.0-0.9 [facility] Comment on above: IG% - Immature Granu locytes (promyelocytes, myelocytes and metamyelocytes) > 1% indicates that a LEFT SHIFT is Present. MCV (mean corpuscular volume ) determinationOrdered By: Julien Holder on 08-13-2024 MCV (RBC) [Entitic vol] 93.8 fL 81-99 [facility] Magnesiumon 08-13-2024 Magnesium [Mass/Vol] 2.4 mg/dL High 1.5-2.2 [facility] Comment on above: Performed By: #### L 501.5200, L100.0100, L501.9520, L500.2500 ####[facility] [address] [place], [address] Magnesium measurement (mass/ volume)Ordered By: Julien Holder on 08-13-2024 Magnesium (Unsp spec) [Mass/Vol] 2.4 mg/dL High 1.5-2.2 [facility] Mean corpuscular hemoglobin (MCH) determinationOrdered By: Julien Holder on 08-13-2024 MCH (RBC) [Entitic mass] 32.1 pg High 27.0-32.0 [facility] Mean corpuscular hemoglobin concentration (MCHC) determinationOrdered By: Julien Holder on 08-13-2024 MCHC (RBC) [Mass/Vol] 34.3 g/dL 32-36 [facility] Mean platelet volume determi nationOrdered By: Julien Holder on 08-13-2024 Platelet mean volume (Bld) [Entitic vol] 9.0 fL 6.2-12.0 [facility] Monocyte percentageOrdered B y: Julien Holder on 08-13-2024 Monocytes/100 WBC (Bld) 12.4 % High 0-10 [facility] Neutrophil percentageOrdered By: Julien Holder on 08-13-2024 Neutrophils/100 WBC (Bld) 69.7 % 47-70 [facility] Nucleated red blood cell per centageOrdered By: Julien Holder on 08-13-2024 Nucleated RBC/100 WBC (Bld) [Ratio] 0 % 0-5 [facility] Platelet countOrdered By: Juan Holder on 08-13-2024 Platelets (Bld) [#/Vol] 301 10*3/uL 150-450 [facility] Potassium measurement (mass/ volume)Ordered By: Julien Holder on 08-13-2024 Potassium (Unsp spec) [Mass/Vol] 4.0 mmol/L 3.3-5.1 [facility] RBC Auto (Bld) [#/Vol]Ordere d By: Julien Holder on 08-13-2024 RBC (Bld) [#/Vol] 3.86 10*6/uL Low 4.2-5.4 [facility] Serum creatinine measurement (mass/volume)Ordered By: Julien Holder on 08-13-2024 Creatinine [Mass/Vol] 0.51 mg/dL Low 0.70-1.20 [facility] Serum glucose measurement (m ass/volume)Ordered By: Julien Holder on 08-13-2024 Glucose [Mass/Vol] 100 mg/dL High 70-99 [facility] Serum or plasma calcium anjel urement (mass/volume)Ordered By: Julien Holder on 08-13-2024 Calcium [Mass/Vol] 9.2 mg/dL 7.6-11.0 [facility] Serum or plasma urea nitroge n measurement (mass/volume)Ordered By: Julien Holder on 08-13-2024 Urea nitrogen [Mass/Vol] 6 mg/dL 4-19 [facility] Sodium levelOrdered By: Neil Holder on 08-13-2024 Sodium [Moles/Vol] 133 mmol/L 133-145 [facility] TSH DL <= 0.005 mIU/L QnOrde red By: Julien Holder on 08-13-2024 TSH Qn 1.150 uIU/mL 0.300-4.200 [facility] Thyroid Stim Hormone (TSH)on 08-13-2024 TSH 1.150 uIU/mL Normal 0.300-4.200 [facility] Comment on above: Performed By: #### L 501.5200, L100.0100, L501.9520, L500.2500 ####[facility] [address] [place], [address] White blood cell (WBC) count Ordered By: Julien Holder on 08-13-2024 WBC (Bld) [#/Vol] 7.6 10*3/uL 4.4-11.0 [facility] Orthopedic Visit Reporton Orthopedic Visit Report Normal [facility] Orthopedic Visit Reporton Orthopedic Visit Report Normal [facility] Office Visit Reporton 2024 Office Visit Report Normal [facility] Orthopedic Visit Reporton Orthopedic Visit Report Normal [facility] CNOVon 07-12-2024 CNOV Office Visit (VASSWS ) -------- KELLI MONROY ([id number]) 1950 F Date Time Provider Department 07/12/24 11:00 AM KARIE MEYER VASSWS During your visit today, we recorded the following information about you: Pulse Blood pressure 79/minute 143/84 Karie Meyer DO 08/04/2024 11:41 AM [facility] [place] DEPARTMENT OF VASCULAR SURGERY OUTPATIENT VISIT DATE July 12, 2024 OUTPATIENT VISIT TYPE CONSULTATION SERVICE DATE: 07/12/2024 SERVICE TIME: 11:09 AM PRIMARY CARE PHYSICIAN: Angel Fullre MD REFERRING PROVIDER: No referring provider defined [...] Problem Relation Age of Onset Heart Mother [place] Osteoporosis Mother Heart Father [place] Heart Sister bunddle block Hyperlipidemia Sister Hypertension [...] 5 mg/100 mL pgbk PREMIX piggyback Zoled[employer] Wadr-Pccamfcc-Ljisr Active 1 EACH .Route ONCE 100 February [...] bruises easi (more content not included)... Normal [facility] Vitamin B1, Thiamineon 07-05 VIT B1 THIAMINE 121.3 nmol/L Normal 66.5-200.0 [facility] Comment on above: Order Comment: Test( s) 276894-Hcm. B1, Whole Bloodwas developed and its performance characteristicsdetermined by [facility]. It has not been cleared or approvedby the Food and Drug Administration.UNK Result Comment: Perf ormed at: - [facility] [address] [id number] Director: Ricardo Jensen MD, Phone: [phone] Performed By: #### L 3300.8000, L506.0400, L3100.9100, L506.0200, L505.7010 ####[facility] [address] [place], [place], [address] Sjogren's Antibodies A/Bon 0 07-04-2024 ANTI-SS-A < 0.2 Normal 0.0-0.9 [facility] Comment on above: Performed By: #### L 3100.9100 ####[facility] [address] [place], [place], [id number] ANTI-SS-B < 0.2 Normal 0.0-0.9 [facility] Comment on above: Result Comment: Perf ormed at: [facility] [address] [id number] Director: Dannie Meza PhD, Phone: [phone] Performed By: #### L 3100.9100 ####[facility] [address] [place], [place], [id number] Folate [Mass/volume] in Seru m or PlasmaOrdered By: Anthony Mckeon on 06-30-2024 Folate [Mass/Vol] 16.30 ng/mL 4.60-34.80 [facility] Comment on above: Hemolysis, Results w ill be affected, Requires Recollection. Folates,Serum (Folic Acid)on 06-30-2024 FOLATES,SERUM 16.30 ng/mL Normal 4.60-34.80 [facility] Comment on above: Order Comment: UNKN Result Comment: Hemo lysis, Results will be affected, Requires Recollection. Performed By: #### L 3300.8000, L506.0400, L3100.9100, L506.0200, L505.7010 ####[facility] [address] [place], [place], [address] Neurology Visit Reporton Neurology Visit Report Normal [facility] Rheumatoid Factoron 07-01-19 25 RHEUMATOID FAC < 10.0 Normal <15 [facility] Comment on above: Performed By: #### L 3300.8000, L506.0400, L3100.9100, L506.0200, L505.7010 ####[facility] [address] [place], [place], [address] Serum or plasma thiamine luis armando surement (mass/volume)Ordered By: Anthony Mckeon on 06-30-2024 Thiamine [Mass/Vol] 121.3 nmol/L 66.5-200.0 [facility] Comment on above: Performed at: [address] [id number] Director: Ricardo Jensen MD, Phone: [phone] Serum rheumatoid factor dete ctionOrdered By: Anthony Mckeon on 06-30-2024 Rheumatoid factor Ql (S) < 10.0 IU/mL <15 [facility] Sjogren's Antibodies A/Bon 0 06-30-2024 ANTI-SS-A TNP Normal [facility] Comment on above: Result Comment: . Performed By: #### L 3300.8000, L506.0400, L3100.9100, L506.0200, L505.7010 ####[facility] [address] [place], [address] ANTI-SS-B TNP Normal [facility] Comment on above: Result Comment: . Performed By: #### L 3300.8000, L506.0400, L3100.9100, L506.0200, L505.7010 ####[facility] [address] [place], [address] T4 Free Directon 06-30-2024 T4 FREE DIRECT 1.30 ng/dL Normal 0.76-1.46 [facility] Comment on above: Order Comment: UNK Performed By: #### L 3300.8000, L506.0400, L3100.9100, L506.0200, L505.7010 ####[facility] [address] [place], [address] T4 freeOrdered By: Anthony barroso on 06-30-2024 Free T4 [Mass/Vol] 1.30 ng/dL 0.76-1.46 [facility] Orthopedic Visit Reporton Orthopedic Visit Report Normal [facility] Basic metabolic 2000 panelon 06-14-2024 Anion gap [Moles/Vol] 10 mmol/L Normal 8-15 [facility] Comment on above: Order Comment: Speci men Type: BLOOD SPECIMEN Ordering Facility: [facility] Address: [address] [place] [address] Performed By: #### 2 4321-2 #### [facility] CLIA [id number] [address] [address] [place] Calcium [Mass/Vol] 9.5 mg/dL Normal 8.5-10.2 [facility] Comment on above: Order Comment: Speci men Type: BLOOD SPECIMEN Ordering Facility: [facility] Address: [address] [place] [address] Performed By: #### 2 4321-2 #### [facility] CLIA [id number] [address] [address] [place] Chloride [Moles/Vol] 100 mmol/L Normal 98-107 [facility] Comment on above: Order Comment: Speci men Type: BLOOD SPECIMEN Ordering Facility: [facility] Address: [address] [place] [address] Performed By: #### 2 4321-2 #### [facility] CLIA [id number] [address] [address] [place] CO2 [Moles/Vol] 26 mmol/L Normal 22-30 [facility] Comment on above: Order Comment: Speci men Type: BLOOD SPECIMEN Ordering Facility: [facility] Address: [address] [place] [address] Performed By: #### 2 4321-2 #### [facility] CLIA [id number] [address] [address] [place] Creatinine [Mass/Vol] 0.54 mg/dL Low 0.58-0.96 [facility] Comment on above: Order Comment: Byron ordoñez Type: BLOOD SPECIMEN Ordering Facility: [facility] Address: [address] [place] [address] Performed By: #### 2 4321-2 #### [facility] CLIA [id number] [address] [address] [place] Creatinine and Glomerular filtration rate.predicted panel (S/P/Bld) 96 mL/min/1.73m??? Normal >=60 [facility] Comment on above: Order Comment: Byron ordoñez Type: BLOOD SPECIMEN Ordering Facility: [facility] Address: [address] [place] [address] Result Comment: Rosangela mated Glomerular Filtration Rate [...] GFR. Performed By: #### 2 4321-2 #### [facility] CLIA [id number] [address] [place] [id number] [place] Glucose [Mass/Vol] 82 mg/dL Normal 74-99 [facility] Comment on above: Order Comment: Byron ordoñez Type: BLOOD SPECIMEN Ordering Facility: [facility] Address: [address] [place] [address] Result Comment: The [place] [employer] (ADA) provides guidance for cutoff [...] Standards of Medical Care in Diabetes 2016, [place] [employer]. Diabetes Care. 2016.39(Suppl 1). Performed By: #### 2 4321-2 #### [facility] CLIA [id number] [address] [place] [id number] [place] Potassium [Moles/Vol] 3.9 mmol/L Normal 3.7-5.1 [facility] Comment on above: Order Comment: Speci men Type: BLOOD SPECIMEN Ordering Facility: [facility] Address: [address] [place] [address] Performed By: #### 2 4321-2 #### [facility] CLIA [id number] [address] [place] [id number] [place] Sodium [Moles/Vol] 136 mmol/L Normal 136-144 [facility] Comment on above: Order Comment: Speci men Type: BLOOD SPECIMEN Ordering Facility: [facility] Address: [address] [place] [address] Performed By: #### 2 4321-2 #### [facility] CLIA [id number] [address] [place] [address] [place] Urea nitrogen [Mass/Vol] 6 mg/dL Low 7-21 [facility] Comment on above: Order Comment: Speci men Type: BLOOD SPECIMEN Ordering Facility: [facility] Address: [address] [place] [address] Performed By: #### 2 4321-2 #### [facility] CLIA [id number] [facility] [place] [id number] [place] Office Visit Reporton 2024 Office Visit Report Normal [facility] Obed 06-03-2024 MISSY Telephone (MADELAINE) -------- KELLI MONROY ([id number]) 1950 F Date Time Provider Department 06/03/24 [...] 5 mg/100 mL pgbk PREMIX piggyback [employer] Ulqf-Uzgqouaa-Avwsf Active 1 EACH .Route ONCE February 07, 2021 11:08am onceinfuse over 20 minutes - acetaminophen (TYLENOL EX STR RAPID RELEASE ORAL) Take 1,000 mg by mouth twice daily as needed. 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 [...] Status:Closed by CLIFFORD TREJO on 06/03/24 Normal [facility] CBC W Auto Differential pane l (Bld)on 05-25-2024 Basophils (Bld) [#/Vol] 0.05 10*3/uL Normal <0.11 [facility] Comment on above: Order Comment: Speci men Type: BLOOD SPECIMEN Ordering Facility: [facility] Address: [address] [place] [address] Performed By: #### 5 7021-8 #### [facility] CLIA [id number] [address] [place] [address] [place] Basophils/100 WBC (Bld) 0.6 % Normal [facility] Comment on above: Order Comment: Speci men Type: BLOOD SPECIMEN Ordering Facility: [facility] Address: [address] [place] [address] Performed By: #### 5 7021-8 #### [facility] CLIA [id number] [address] [place] [address] [place] Differential cell count method Nom (Bld) Auto Normal [facility] Comment on above: Order Comment: Speci men Type: BLOOD SPECIMEN Ordering Facility: [facility] Address: [address] [place] [address] Performed By: #### 5 7021-8 #### [facility] CLIA [id number] [address] [place] [address] [place] Eosinophils (Bld) [#/Vol] 0.04 10*3/uL Normal <0.46 [facility] Comment on above: Order Comment: Speci men Type: BLOOD SPECIMEN Ordering Facility: [facility] Address: [address] [place] [address] Performed By: #### 5 7021-8 #### [facility] CLIA [id number] [address] [place] [address] [place] Eosinophils/100 WBC (Bld) 0.5 % Normal [facility] Comment on above: Order Comment: Speci men Type: BLOOD SPECIMEN Ordering Facility: [facility] Address: [address] [place] [address] Performed By: #### 5 7021-8 #### [facility] CLIA [id number] [address] [place] [address] [place] Erythrocyte distribution width (RBC) [Ratio] 13.0 % Normal 11.5-15.0 [facility] Comment on above: Order Comment: Speci men Type: BLOOD SPECIMEN Ordering Facility: [facility] Address: [address] [place] [address] Performed By: #### 5 7021-8 #### [facility] CLIA [id number] [address] [place] [address] [place] Hematocrit (Bld) [Volume fraction] 32.3 % Low 36.0-46.0 [facility] Comment on above: Order Comment: Speci men Type: BLOOD SPECIMEN Ordering Facility: [facility] Address: [address] [place] [address] Performed By: #### 5 7021-8 #### [facility] CLIA [id number] [address] [place] [address] [place] Hemoglobin (Bld) [Mass/Vol] 11.0 g/dL Low 11.5-15.5 [facility] Comment on above: Order Comment: Speci men Type: BLOOD SPECIMEN Ordering Facility: [facility] Address: [address] [place] [address] Performed By: #### 5 7021-8 #### [facility] CLIA [id number] [address] [place] [address] [place] Immature granulocytes (Bld) [#/Vol] 0.04 10*3/uL Normal <0.10 [facility] Comment on above: Order Comment: Speci men Type: BLOOD SPECIMEN Ordering Facility: [facility] Address: [address] [place] [address] Performed By: #### 5 7021-8 #### [facility] CLIA [id number] [address] [place] [address] [place] Immature granulocytes/100 WBC (Bld) 0.5 % Normal [facility] Comment on above: Order Comment: Speci men Type: BLOOD SPECIMEN Ordering Facility: [facility] Address: [address] [place] [address] Performed By: #### 5 7021-8 #### [facility] CLIA [id number] [address] [place] [address] [place] Lymphocytes (Bld) [#/Vol] 0.83 10*3/uL Low 1.00-4.00 [facility] [facility] Comment on above: Order Comment: Speci men Type: BLOOD SPECIMEN Ordering Facility: [facility] Address: [address] [place] [address] Performed By: #### 5 7021-8 #### [facility] CLIA [id number] [address] [place] [address] [place] Lymphocytes/100 WBC (Bld) 9.5 % Normal [facility] Comment on above: Order Comment: Speci men Type: BLOOD SPECIMEN Ordering Facility: [facility] Address: [address] [place] [address] Performed By: #### 5 7021-8 #### [facility] CLIA [id number] [address] [place] [address] [place] MCH (RBC) [Entitic mass] 32.3 pg Normal 26.0-34.0 [facility] Comment on above: Order Comment: Speci men Type: BLOOD SPECIMEN Ordering Facility: [facility] Address: [address] [place] [address] Performed By: #### 5 7021-8 #### [facility] CLIA [id number] [address] [place] [address] [place] MCHC (RBC) [Mass/Vol] 34.1 g/dL Normal 30.5-36.0 [facility] Comment on above: Order Comment: Speci men Type: BLOOD SPECIMEN Ordering Facility: [facility] Address: [address] [place] [address] Performed By: #### 5 7021-8 #### [facility] CLIA [id number] [address] [place] [address] [place] MCV (RBC) [Entitic vol] 94.7 fL Normal 80.0-100.0 [facility] Comment on above: Order Comment: Speci men Type: BLOOD SPECIMEN Ordering Facility: [facility] Address: [address] [place] [address] Performed By: #### 5 7021-8 #### [facility] CLIA [id number] [address] [place] [address] [place] Monocytes (Bld) [#/Vol] 0.99 10*3/uL High <0.87 [facility] Comment on above: Order Comment: Speci men Type: BLOOD SPECIMEN Ordering Facility: [facility] Address: [address] [place] [address] Performed By: #### 5 7021-8 #### [facility] CLIA [id number] [address] [place] [address] [place] Monocytes/100 WBC (Bld) 11.3 % Normal [facility] Comment on above: Order Comment: Speci men Type: BLOOD SPECIMEN Ordering Facility: [facility] Address: [address] [place] [address] Performed By: #### 5 7021-8 #### [facility] CLIA [id number] [address] [place] [address] [place] Neutrophils (Bld) [#/Vol] 6.78 10*3/uL Normal 1.45-7.50 [facility] Comment on above: Order Comment: Speci men Type: BLOOD SPECIMEN Ordering Facility: [facility] Address: [address] [place] [address] Performed By: #### 5 7021-8 #### [facility] CLIA [id number] [address] [place] [address] [place] Neutrophils/100 WBC (Bld) 77.6 % Normal [facility] Comment on above: Order Comment: Speci men Type: BLOOD SPECIMEN Ordering Facility: [facility] Address: [address] [place] [address] Performed By: #### 5 7021-8 #### [facility] CLIA [id number] [address] [place] [address] [place] Nucleated RBC (Bld) [#/Vol] 10*3/uL Normal <0.01 [facility] Comment on above: Order Comment: Speci men Type: BLOOD SPECIMEN Ordering Facility: [facility] Address: [address] [place] [address] Performed By: #### 5 7021-8 #### [facility] CLIA [id number] [address] [place] [address] [place] Nucleated RBC/100 WBC (Bld) [Ratio] 0.0 /100 WBC Normal [facility] Comment on above: Order Comment: Speci men Type: BLOOD SPECIMEN Ordering Facility: [facility] Address: [address] [place] [address] Performed By: #### 5 7021-8 #### [facility] CLIA [id number] [address] [place] [address] [place] Platelet mean volume (Bld) [Entitic vol] 8.7 fL Low 9.0-12.7 [facility] Comment on above: Order Comment: Speci men Type: BLOOD SPECIMEN Ordering Facility: [facility] Address: [address] [place] [address] Performed By: #### 5 7021-8 #### [facility] CLIA [id number] [address] [place] [address] [place] Platelets (Bld) [#/Vol] 290 10*3/uL Normal 150-400 [facility] Comment on above: Order Comment: Speci men Type: BLOOD SPECIMEN Ordering Facility: [facility] Address: [address] [place] [address] Performed By: #### 5 7021-8 #### [facility] CLIA [id number] [address] [place] [address] [place] RBC (Bld) [#/Vol] 3.41 10*6/uL Low 3.90-5.20 [facility] Comment on above: Order Comment: Speci men Type: BLOOD SPECIMEN Ordering Facility: [facility] Address: [address] [place] [address] Performed By: #### 5 7021-8 #### [facility] CLIA [id number] [address] [place] [address] [place] WBC (Bld) [#/Vol] 8.73 10*3/uL Normal 3.70-11.00 [facility] Comment on above: Order Comment: Speci men Type: BLOOD SPECIMEN Ordering Facility: [facility] Address: [address] [place] [address] Performed By: #### 5 7021-8 #### [facility] CLIA [id number] [address] [place] [address] [place] HFE (HEMOCHROMATOSIS)on INTERPRETATION (HEMDNA) Normal [facility] Comment on above: Order Comment: Speci men Type: BLOOD SPECIMEN Ordering Facility: [facility] Address: [address] [place] [address], [place] [address] Result Comment: HFE (Hemochromatosis) Laboratory Accession Number: [id number] Result: C282Y: WT H63D: NINFA S65C: WT Interpretation: 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 The variants interrogated are c.845G>A, p.Nrc286Gha; g.[id number]; [id number] (legacy name C282Y), c.187C>G, p.Rnw45Pip; g.[id number]; [id number] (legacy name H63D) and c.193A>T, p.Lil86Udk; g.76839852; [id number] (legacy name S65C). The reference genome used was GRCh37/hg19. Limitations: DNA studies do not provide a definitive genetic risk in all individuals. This targeted test is designed to detect three specific variants (see methodology for details) in HFE (OMIM 095008). Uncommon variants or single nucleotide polymorphisms may affect binding of probes and thus result in false negative, false positive, or indeterminate results. This test does not detect other HFE variants. Disclaimer: This test was developed and its performance characteristics determined by [facility]'s Pathology and Laboratory Medicine Department. It has not been cleared or approved by the FDA. [facility]'s Pathology and Laboratory Medicine Department is regulated under CLIA as certified to perform high-complexity testing. This test is used for clinical purposes. It should not be regarded as investigational or for research. Test performed at [facility], [address] [place] [address]. CLIA Number: [id number] Interpretation performed by Ernestine Spears, PhD Performed By: #### 2 4321-2 #### [facility] CLIA [id number] [address] [place] [address] [place] Osmolality Uron 05-25-2024 Osmolality (U) [Osmolality] 109 mosm/kg Normal 50-1200 [facility] Comment on above: Order Comment: Speci men Type: BLOOD SPECIMEN Ordering Facility: [facility] Address: [address] [place] [address] Performed By: #### 2 4321-2 #### [facility] CLIA [id number] [address] [place] [address] [place] PATHOLOGIST INTERPRETATION C BC AND DIFFERENTIAL (LAB REFLEX ORDER-NO BILL)on 05-25-2024 Marketing Support Assistant review Robin (Unsp spec) [Interp] No review performed. Normal [facility] Comment on above: Order Comment: Speci men Type: BLOOD SPECIMEN Ordering Facility: [facility] Address: [address] [place] [address] Performed By: #### L [id number] #### [facility] CLIA [id number] [address] [place] [address] OF DES STAFF REVIEW, CBCDIF The Pathologist Interpretation on this sample was cancelled because the hematology analyzer did not flag any parameters as requiring manual review. If there is a specific clinical concern for which you would like a pathologist to review the blood smear, please call Lab Client Services within 28 days. Normal [facility] Comment on above: Order Comment: Speci men Type: BLOOD SPECIMEN Ordering Facility: [facility] Address: [address] [place], [place] [address] Performed By: #### L [id number] #### [facility] CLIA [id number] [address] [place] [address] [place] Sodium ?Tm Ur-sCncon 025 Sodium Unsp time (U) [Moles/Vol] <20 Normal 14-216 [facility] Comment on above: Order Comment: Speci men Type: URINE SPECIMEN Ordering Facility: [facility] Address: [address] [place] [address], [place] [address] Result Comment: Resu lt rechecked. Performed By: #### 3 5678-2 #### [facility] CLIA [id number] [address] [place] [address] [place] NCS and/or EMG Patienton NCS and/or EMG Patient Normal [facility] NCS and/or EMG Patienton NCS and/or EMG Patient Normal [facility] Office Visit Reporton 2024 Office Visit Report Normal [facility] Orthopedic Visit Reporton Orthopedic Visit Report Normal [facility] .Auto Diffon 04-28-2024 Basophil, Absolute 0.0 10 3/mcL Normal 0.0-0.3 [facility] Comment on above: Performed By: #### F ERR, GFR, FES, CMP, ADIFF, ANEU, TSH, CBC #### [address] [address] Basophils/100 WBC (Bld) 0.3 % Normal 0.0-2.[address] [facility] Comment on above: Performed By: #### F ERR, GFR, FES, CMP, ADIFF, ANEU, TSH, CBC #### [address] [address] Eosinophil, Absolute 0.0 10 3/mcL Normal 0.0-0.7 [facility] Comment on above: Performed By: #### F ERR, GFR, FES, CMP, ADIFF, ANEU, TSH, CBC #### [address] [address] Eosinophils/100 WBC (Bld) 0.3 % Normal 0.0-6.[address] [facility] Comment on above: Performed By: #### F ERR, GFR, FES, CMP, ADIFF, ANEU, TSH, CBC #### [address] [address] Lymphocyte, Absolute 0.7 10 3/mcL Low 0.9-4.3 [facility] Comment on above: Performed By: #### F ERR, GFR, FES, CMP, ADIFF, ANEU, TSH, CBC #### [address] [address] Lymphocytes/100 WBC (Bld) 9.2 % Low 20.0-40.[address] [facility] Comment on above: Performed By: #### F ERR, GFR, FES, CMP, ADIFF, ANEU, TSH, CBC #### [address] [address] Monocyte, Absolute 0.9 10 3/mcL Normal 0.1-1.4 [facility] Comment on above: Performed By: #### F ERR, GFR, FES, CMP, ADIFF, ANEU, TSH, CBC #### [address] [address] Monocytes/100 WBC (Bld) 11.5 % Normal 2.0-13.[address] [facility] Comment on above: Performed By: #### F ERR, GFR, FES, CMP, ADIFF, ANEU, TSH, CBC #### [address] [address] Neutrophils/100 WBC (Bld) 78.7 % High 50.0-75.[address] [facility] Comment on above: Performed By: #### F ERR, GFR, FES, CMP, ADIFF, ANEU, TSH, CBC #### [address] [address] .GFRon 04-28-2024 Estimated Glomerular Filtration Rate 96 ml/min/1.73sqm Normal [facility] Comment on above: Result Comment: Stages [...] #### V IDH, GFR, B12, BMP #### [place] [address] .NEUABSon 04-28-2024 Neutrophil, Absolute 6.2 10 3/mcL Normal 2.3-8.1 [facility] Comment on above: Performed By: #### F ERR, GFR, FES, CMP, ADIFF, ANEU, TSH, CBC #### [place] [address] CBCon 04-28-2024 Erythrocyte distribution width (RBC) [Ratio] 12.4 % Normal 11.5-15.[address] [facility] Comment on above: Performed By: #### F ERR, GFR, FES, CMP, ADIFF, ANEU, TSH, CBC #### [place] [address] Hematocrit (Bld) [Volume fraction] 36.3 % Normal 34.0-46.[address] [facility] Comment on above: Performed By: #### F ERR, GFR, FES, CMP, ADIFF, ANEU, TSH, CBC #### [place] [address] Hgb 12.9 G/dL Normal 12.0-16.[address] [facility] Comment on above: Performed By: #### F ERR, GFR, FES, CMP, ADIFF, ANEU, TSH, CBC #### [place] [address] MCH (RBC) [Entitic mass] 33.2 pg High 27.0-33.[address] [facility] Comment on above: Performed By: #### F ERR, GFR, FES, CMP, ADIFF, ANEU, TSH, CBC #### [place] [id number] MCHC 35.6 G/dL Normal 32.0-36.[address] [facility] Comment on above: Performed By: #### F ERR, GFR, FES, CMP, ADIFF, ANEU, TSH, CBC #### [place] [address] MCV (RBC) [Entitic vol] 93.3 fL Normal 80.0-99.[address] [facility] Comment on above: Performed By: #### F ERR, GFR, FES, CMP, ADIFF, ANEU, TSH, CBC #### [place] [address] Platelet 489 10 3/mcL High 150-[address] [facility] Comment on above: Performed By: #### F ERR, GFR, FES, CMP, ADIFF, ANEU, TSH, CBC #### [place] [address] Platelet mean volume (Bld) [Entitic vol] 7.0 fL Normal 6.6-10.[address] [facility] Comment on above: Performed By: #### F ERR, GFR, FES, CMP, ADIFF, ANEU, TSH, CBC #### [place] [id number] RBC 3.89 10 6/mcL Low 4.10-5.[address] [facility] Comment on above: Performed By: #### F ERR, GFR, FES, CMP, ADIFF, ANEU, TSH, CBC #### [place] [id number] WBC 7.8 10 3/mcL Normal 4.5-10.[address] [facility] Comment on above: Performed By: #### F ERR, GFR, FES, CMP, ADIFF, ANEU, TSH, CBC #### [place] [id number] CMPon 04-28-2024 Albumin Level 3.9 G/dL Normal 3.2-4.[address] [facility] Comment on above: Performed By: #### F ERR, GFR, FES, CMP, ADIFF, ANEU, TSH, CBC #### [place] [address] Albumin/Globulin [Mass ratio] 1.1 {ratio} Normal 0.9-1.[address] [facility] Comment on above: Performed By: #### F ERR, GFR, FES, CMP, ADIFF, ANEU, TSH, CBC #### [place] [address] ALP [Catalytic activity/Vol] 73 U/L Normal 38-[address] [facility] Comment on above: Performed By: #### F ERR, GFR, FES, CMP, ADIFF, ANEU, TSH, CBC #### [place] [address] ALT [Catalytic activity/Vol] 16 U/L Normal 10-[address] [facility] Comment on above: Performed By: #### F ERR, GFR, FES, CMP, ADIFF, ANEU, TSH, CBC #### [place] [id number] AST [Catalytic activity/Vol] 25 U/L Normal 8-[address] [facility] Comment on above: Performed By: #### F ERR, GFR, FES, CMP, ADIFF, ANEU, TSH, CBC #### [place] [address] Bili Total 0.50 mg/dL Normal 0.20-1.[address] [facility] Comment on above: Result Comment: Use of this assay is not recommended for patients undergoing treatment with eltrombopag due to the potential for falsely elevated results. Performed By: #### F ERR, GFR, FES, CMP, ADIFF, ANEU, TSH, CBC #### [place] [address] BUN/Creatinine Ratio 13.5 ratio Normal 10.0-22.0 [facility] Comment on above: Performed By: #### F ERR, GFR, FES, CMP, ADIFF, ANEU, TSH, CBC #### [place] [id number] Calcium [Mass/Vol] 9.9 mg/dL Normal 8.7-10.4 [facility] Comment on above: Performed By: #### F ERR, GFR, FES, CMP, ADIFF, ANEU, TSH, CBC #### [address] [address] Chloride [Moles/Vol] 97 mmol/L Low 98-110 [facility] Comment on above: Performed By: #### F ERR, GFR, FES, CMP, ADIFF, ANEU, TSH, CBC #### [address] [address] CO2 [Moles/Vol] 25 mmol/L Normal 22-[address] [facility] Comment on above: Performed By: #### F ERR, GFR, FES, CMP, ADIFF, ANEU, TSH, CBC #### [address] [address] Creatinine [Mass/Vol] 0.52 mg/dL Normal 0.50-1.20 [facility] Comment on above: Result Comment: Test ing performed on [employer] analyzer using enzymatic creatinine methodology. Performed By: #### F ERR, GFR, FES, CMP, ADIFF, ANEU, TSH, CBC #### [address] [address] Electrolyte Balance 8.0 mEq/L Normal 4.0-15.0 [facility] Comment on above: Performed By: #### F ERR, GFR, FES, CMP, ADIFF, ANEU, TSH, CBC #### [address] [address] Globulin 3.5 G/dL Normal 1.5-3.[address] [facility] Comment on above: Performed By: #### F ERR, GFR, FES, CMP, ADIFF, ANEU, TSH, CBC #### [address] [address] Glucose [Mass/Vol] 93 mg/dL Normal 82-115 [facility] Comment on above: Performed By: #### F ERR, GFR, FES, CMP, ADIFF, ANEU, TSH, CBC #### [address] [address] Potassium [Moles/Vol] 4.2 mmol/L Normal 3.5-5.0 [facility] Comment on above: Performed By: #### F ERR, GFR, FES, CMP, ADIFF, ANEU, TSH, CBC #### [place] [id number] Sodium [Moles/Vol] 130 mmol/L Low 136-145 [facility] Comment on above: Performed By: #### F ERR, GFR, FES, CMP, ADIFF, ANEU, TSH, CBC #### [place] [id number] Total Protein 7.4 G/dL Normal 5.7-8.[address] [facility] Comment on above: Performed By: #### F ERR, GFR, FES, CMP, ADIFF, ANEU, TSH, CBC #### [place] [address] Urea nitrogen [Mass/Vol] 7.0 mg/dL Low 8.0-22.[address] [facility] Comment on above: Performed By: #### F ERR, GFR, FES, CMP, ADIFF, ANEU, TSH, CBC #### [place] [id number] Zamzam 04-28-2024 Ferritin [Mass/Vol] 300.3 ng/mL High 8.0-252.0 [facility] Comment on above: Performed By: #### F ERR, GFR, FES, CMP, ADIFF, ANEU, TSH, CBC #### [place] [address] FESon 04-28-2024 Iron [Mass/Vol] 81 ug/dL Normal 50-[address] [facility] Comment on above: Performed By: #### F ERR, GFR, FES, CMP, ADIFF, ANEU, TSH, CBC #### [place] [address] Iron Sat 28 % Normal [facility] Comment on above: Performed By: #### F ERR, GFR, FES, CMP, ADIFF, ANEU, TSH, CBC #### [place] [id number] TIBC 289 mcg/dL Normal 250-[address] [facility] Comment on above: Performed By: #### F ERR, GFR, FES, CMP, ADIFF, ANEU, TSH, CBC #### [place] [address] TSHon 04-28-2024 TSH 0.950 mIU/mL Normal 0.550-4.[address] [facility] Comment on above: Performed By: #### V IDH, GFR, B12, BMP #### [facility] [address] [place] [address] 12 Lead EKGon 04-18-2024 12 Lead EKG Normal [facility] Absolute lymphocyte countOrd ered By: Julien Holder on 04-18-2024 Lymphocytes Auto (Unsp spec) [#/Vol] 0.59 10*3/uL Low 0.83-4.51 [facility] Absolute neutrophil countOrd ered By: Julien Holder on 04-18-2024 Neutrophils (Bld) [#/Vol] 3.9 10*3/uL 2.0-7.7 [facility] Automated lymphocyte count a s percentage of total leukocytesOrdered By: Julien Holder on 04-18-2024 Lymphocytes/100 WBC Auto (Unsp spec) 11.4 % Low 19-41 [facility] Bacteria LM.HPF (Urine sed) [#/Area]Ordered By: Julien Holder on 04-18-2024 Urine Bacteria RARE /hpf None Seen [facility] Basic Metabolic Profile (BMP )on 04-18-2024 BUN/CRE 9.0 RATIO Low 10-20 [facility] Comment on above: Order Comment: 'TROP ' Serial specimen #1, #2 or #3: 1 Performed By: #### L 100.0100, L500.2500, L501.4020, L500.3400 ####[facility] [address] [place], [address] CA,Total 8.9 mg/dL Normal 8.5-10.1 [facility] Comment on above: Order Comment: 'TROP ' Serial specimen #1, #2 or #3: 1 Performed By: #### L 100.0100, L500.2500, L501.4020, L500.3400 ####[facility] [address] [place], [address] Chloride [Moles/Vol] 96 mmol/L Low 98-107 [facility] Comment on above: Order Comment: 'TROP ' Serial specimen #1, #2 or #3: 1 Performed By: #### L 100.0100, L500.2500, L501.4020, L500.3400 ####[facility] [address] [place], [address] CO2 [Moles/Vol] 27.0 mmol/L Normal 21.0-32.0 [facility] Comment on above: Order Comment: 'TROP ' Serial specimen #1, #2 or #3: 1 Performed By: #### L 100.0100, L500.2500, L501.4020, L500.3400 ####[facility] [address] [place], [address] Creatinine [Mass/Vol] 0.56 mg/dL Normal 0.55-1.02 [facility] Comment on above: Order Comment: 'TROP ' Serial specimen #1, #2 or #3: 1 Result Comment: The validity of the calculated GFR GFRAA in patients over70 years has not been determined. Clinical correlation isessential. Performed By: #### L 100.0100, L500.2500, L501.4020, L500.3400 ####[facility] [address] [place], [address] ECRCL 57.03 ml/min Normal [facility] Comment on above: Order Comment: 'TROP ' Serial specimen #1, #2 or #3: 1 Performed By: #### L 100.0100, L500.2500, L501.4020, L500.3400 ####[facility] [address] [place], [address] EST GFR - AA 137 mL/min Normal >60 [facility] Comment on above: Order Comment: 'TROP ' Serial specimen #1, #2 or #3: 1 Result Comment: Afri can [place]an GFR Calc Performed By: #### L 100.0100, L500.2500, L501.4020, L500.3400 ####[facility] [address] [place], [address] GAP 7 Normal 5-15 [facility] Comment on above: Order Comment: 'TROP ' Serial specimen #1, #2 or #3: 1 Performed By: #### L 100.0100, L500.2500, L501.4020, L500.3400 ####[facility] [address] [place], [address] GFR/1.73 sq M.predicted among non-blacks MDRD (S/P/Bld) [Vol rate/Area] 113 mL/min/{1.73_m2} Normal >60 [facility] Comment on above: Order Comment: 'TROP ' Serial specimen #1, #2 or #3: 1 Result Comment: Non- GFR Calc Performed By: #### L 100.0100, L500.2500, L501.4020, L500.3400 ####[facility] [address] [place], [address] Glucose [Mass/Vol] 96 mg/dL Normal 74-106 [facility] Comment on above: Order Comment: 'TROP ' Serial specimen #1, #2 or #3: 1 Performed By: #### L 100.0100, L500.2500, L501.4020, L500.3400 ####[facility] [address] [place], [address] Potassium [Moles/Vol] 3.8 mmol/L Normal 3.5-5.1 [facility] Comment on above: Order Comment: 'TROP ' Serial specimen #1, #2 or #3: 1 Performed By: #### L 100.0100, L500.2500, L501.4020, L500.3400 ####[facility] [address] [place], [address] Sodium [Moles/Vol] 130 mmol/L Low 136-145 [facility] Comment on above: Order Comment: 'TROP ' Serial specimen #1, #2 or #3: 1 Performed By: #### L 100.0100, L500.2500, L501.4020, L500.3400 ####[facility] [address] [place], [address] Urea nitrogen [Mass/Vol] 5 mg/dL Low 7-18 [facility] Comment on above: Order Comment: 'TROP ' Serial specimen #1, #2 or #3: 1 Performed By: #### L 100.0100, L500.2500, L501.4020, L500.3400 ####[facility] [address] [place], [address] Basophil percentageOrdered B y: Julien Holder on 04-18-2024 Basophils/100 WBC (Bld) 0.4 % 0-1 [facility] Bilirubin Test strip Ql (U)O rdered By: Julien Holder on 04-18-2024 Bilirubin Ql (U) Negative Negative [facility] Bilirubin directOrdered By: Julien Holder on 04-18-2024 Bilirubin.direct [Mass/Vol] 0.14 mg/dL 0.00-0.30 [facility] Bilirubin, totalOrdered By: Julien Holder on 04-18-2024 Bilirubin [Mass/Vol] 0.50 mg/dL 0.20-1.00 [facility] Comment on above: For patients on eltr ombopag therapy, use of Dimension [place] TBIL is not recommended. Blood urea nitrogen (BUN)/cr eatinine ratioOrdered By: Julien Holder on 04-18-2024 Urea nitrogen/Creatinine [Mass ratio] 9.0 mg/mg Low 10-20 [facility] CBC W/Diff, Automatedon 03-27 Absolute Lymph 0.59 X10 3/uL Low 0.83-4.51 [facility] Comment on above: Performed By: #### L 100.0100, L500.2500, L501.4020, L500.3400 ####[facility] [address] [place], [address] Absolute Neut 3.9 X10 3/uL Normal 2.0-7.7 [facility] Comment on above: Performed By: #### L 100.0100, L500.2500, L501.4020, L500.3400 ####[facility] [address] [place], [address] Basophils/100 WBC (Bld) 0.4 % Normal 0-1 [facility] Comment on above: Performed By: #### L 100.0100, L500.2500, L501.4020, L500.3400 ####[facility] [address] [place], [address] Eosinophils/100 WBC (Bld) 0.4 % Normal 0-5 [facility] Comment on above: Performed By: #### L 100.0100, L500.2500, L501.4020, L500.3400 ####[facility] [address] [place], [address] Erythrocyte distribution width (RBC) [Ratio] 11.8 % Normal 11.6-14.6 [facility] Comment on above: Performed By: #### L 100.0100, L500.2500, L501.4020, L500.3400 ####[facility] [address] [place], [address] Hematocrit (Bld) [Volume fraction] 39.7 % Normal 37-47 [facility] Comment on above: Performed By: #### L 100.0100, L500.2500, L501.4020, L500.3400 ####[facility] [address] [place], [address] Hemoglobin (Bld) [Mass/Vol] 13.5 g/dL Normal 12.0-15.0 [facility] Comment on above: Performed By: #### L 100.0100, L500.2500, L501.4020, L500.3400 ####[facility] [address] [place], [address] IG% 0.400 Normal 0.0-0.9 [facility] Comment on above: Result Comment: IG% - Immature Granulocytes (promyelocytes, myelocytes andmetamyelocytes) > 1% indicates that a LEFT SHIFT is Present. Performed By: #### L 100.0100, L500.2500, L501.4020, L500.3400 ####[facility] [address] [place], [address] Lymphocytes/100 WBC (Bld) 11.4 % Low 19-41 [facility] Comment on above: Performed By: #### L 100.0100, L500.2500, L501.4020, L500.3400 ####[facility] [address] [place], [address] MCH (RBC) [Entitic mass] 31.5 pg Normal 27.0-32.0 [facility] Comment on above: Performed By: #### L 100.0100, L500.2500, L501.4020, L500.3400 ####[facility] [address] [place], [address] MCHC (RBC) [Mass/Vol] 34.0 g/dL Normal 32-36 [facility] Comment on above: Performed By: #### L 100.0100, L500.2500, L501.4020, L500.3400 ####[facility] [address] [place], [address] MCV (RBC) [Entitic vol] 92.8 fL Normal 81-99 [facility] Comment on above: Performed By: #### L 100.0100, L500.2500, L501.4020, L500.3400 ####[facility] [address] [place], [address] Monocytes/100 WBC (Bld) 12.4 % High 0-10 [facility] Comment on above: Performed By: #### L 100.0100, L500.2500, L501.4020, L500.3400 ####[facility] [address] [place], [address] Neutrophils/100 WBC (Bld) 75.0 % High 47-70 [facility] Comment on above: Performed By: #### L 100.0100, L500.2500, L501.4020, L500.3400 ####[facility] [address] [place], [address] Nucleated RBC (Bld) [#/Vol] 0 10*3/uL Normal 0-5 [facility] Comment on above: Performed By: #### L 100.0100, L500.2500, L501.4020, L500.3400 ####[facility] [address] [place], [address] Platelet mean volume (Bld) [Entitic vol] 8.8 fL Normal 6.2-12.0 [facility] Comment on above: Performed By: #### L 100.0100, L500.2500, L501.4020, L500.3400 ####[facility] [address] [place], [address] Platelets (Bld) [#/Vol] 249 10*3/uL Normal 150-450 [facility] Comment on above: Performed By: #### L 100.0100, L500.2500, L501.4020, L500.3400 ####[facility] [address] [place], [address] RBC (Bld) [#/Vol] 4.28 10*6/uL Normal 4.2-5.4 [facility] Comment on above: Performed By: #### L 100.0100, L500.2500, L501.4020, L500.3400 ####[facility] [address] [place], [address] RDW SD 40.0 fl Normal 35.1-43.9 [facility] Comment on above: Performed By: #### L 100.0100, L500.2500, L501.4020, L500.3400 ####[facility] [address] [place], [address] WBC (Bld) [#/Vol] 5.2 10*3/uL Normal 4.4-11.0 [facility] Comment on above: Performed By: #### L 100.0100, L500.2500, L501.4020, L500.3400 ####[facility] [address] [place], [address] Carbon dioxide measurementOr dered By: Julien Holder on 04-18-2024 CO2 [Moles/Vol] 27.0 mmol/L 21.0-32.0 [facility] Chest 1 View (Portable)on Chest 1 View (Portable) Normal [facility] Chloride measurementOrdered By: Julien Holder on 04-18-2024 Chloride [Moles/Vol] 96 mmol/L Low 98-107 [facility] Emergency Department Summary on 04-18-2024 Emergency Department Summary Normal [facility] Eosinophil percentageOrdered By: Julien Holder on 04-18-2024 Eosinophils/100 WBC (Bld) 0.4 % 0-5 [facility] Epithelial cells.squamous LM Ql (Urine sed)Ordered By: Julien Holder on 04-18-2024 Epithelial cells.squamous LM.HPF (Urine sed) [#/Area] 0 /[HPF] 5-10 [facility] Erythrocyte distribution wid th ratioOrdered By: Julien Holder on 04-18-2024 Erythrocyte distribution width (RBC) [Ratio] 11.8 % 11.6-14.6 [facility] Erythrocyte distribution wid th standard deviationOrdered By: Julien Holder on 04-18-2024 Erythrocyte distribution width (RBC) [Entitic vol] 40.0 fL 35.1-43.9 [facility] Erythrocyte distribution width (RBC) [Ratio] 40.0 fl 35.1-43.9 [facility] Estimated glomerular filtrat ion rate (GFR) AmericanOrdered By: Julien Holder on 04-18-2024 Estimated GFR (MDRD) Amer 137 mL/min >60 [facility] Comment on above: GFR Calc Estimation of creatinine valarie aranceOrdered By: Julien Holder on 04-18-2024 Estimated Creatinine Clearance Calc 57.03 ml/min [facility] Glomerular filtration rate ( GFR) estimationOrdered By: Julien Holder on 04-18-2024 Estimated GFR (MDRD) Non-Af Amer 113 mL/min >60 [facility] Comment on above: Non- GFR Calc GFR/1.73 sq M.predicted among non-blacks MDRD (S/P/Bld) [Vol rate/Area] 113 mL/min/{1.73_m2} >60 [facility] Comment on above: Non- GFR Calc Glucose Ql (U)Ordered By: Juan Holder on 04-18-2024 Urine Glucose (UA) Normal mg/dl Normal [facility] Glucose measurementOrdered B y: Julien Holder on 04-18-2024 Glucose [Mass/Vol] 96 mg/dL 74-106 [facility] Hematocrit Auto (Bld) [Volum e fraction]Ordered By: Julien Holder on 04-18-2024 Hematocrit (Bld) [Volume fraction] 39.7 % 37-47 [facility] Hemoglobin measurementOrdere d By: Julien Holder on 04-18-2024 Hemoglobin (Bld) [Mass/Vol] 13.5 g/dL 12.0-15.0 [facility] Immature granulocytes/100 WB C Auto (Bld)Ordered By: Julien Holder on 04-18-2024 Immature granulocytes/100 WBC (Bld) 0.400 % 0.0-0.9 [facility] Comment on above: IG% - Immature Granu locytes (promyelocytes, myelocytes and metamyelocytes) > 1% indicates that a LEFT SHIFT is Present. Ketones Test strip Ql (U)Ord ered By: Julien Holder on 04-18-2024 Ketones Ql (U) Negative Negative [facility] L501.4020on 04-18-2024 TROPONIN-I HS 4 pg/mL Normal 3.0-54.0 [facility] Comment on above: Order Comment: 'TROP ' Serial specimen #1, #2 or #3: 1 Result Comment: Amee bustos Note: New Test Units and Gender Specific Reference Ranges. For more information see Policy Stat Procedure [place] High Sensitivity Troponin (TNIH) and attachments. Performed By: #### L 100.0100, L500.2500, L501.4020, L500.3400 ####[facility] [address] [place], [address] Laboratory - Chemistry and C hemistry - challengeOrdered By: Julien Holder on 04-18-2024 AST [Catalytic activity/Vol] 36 U/L 15-37 [facility] Liver Profileon 04-18-2024 Albumin [Mass/Vol] 3.8 g/dL Normal 3.2-5.0 [facility] Comment on above: Order Comment: 'TROP ' Serial specimen #1, #2 or #3: 1 Performed By: #### L 100.0100, L500.2500, L501.4020, L500.3400 ####[facility] [address] [place], [address] ALK P 73 U/L Normal 45-117 [facility] Comment on above: Order Comment: 'TROP ' Serial specimen #1, #2 or #3: 1 Performed By: #### L 100.0100, L500.2500, L501.4020, L500.3400 ####[facility] [address] [place], [address] ALT [Catalytic activity/Vol] 36 U/L Normal 13-56 [facility] Comment on above: Order Comment: 'TROP ' Serial specimen #1, #2 or #3: 1 Performed By: #### L 100.0100, L500.2500, L501.4020, L500.3400 ####[facility] [address] [place], [address] AST [Catalytic activity/Vol] 36 U/L Normal 15-37 [facility] Comment on above: Order Comment: 'TROP ' Serial specimen #1, #2 or #3: 1 Performed By: #### L 100.0100, L500.2500, L501.4020, L500.3400 ####[facility] [address] [place], [address] Bilirubin [Mass/Vol] 0.50 mg/dL Normal 0.20-1.00 [facility] Comment on above: Order Comment: 'TROP ' Serial specimen #1, #2 or #3: 1 Result Comment: For patients on eltrombopag therapy, use of Dimension [place] TBIL is not recommended. Performed By: #### L 100.0100, L500.2500, L501.4020, L500.3400 ####[facility] [address] [place], [address] Bilirubin.direct [Mass/Vol] 0.14 mg/dL Normal 0.00-0.30 [facility] Comment on above: Order Comment: 'TROP ' Serial specimen #1, #2 or #3: 1 Performed By: #### L 100.0100, L500.2500, L501.4020, L500.3400 ####[facility] [address] [place], [address] Globulin (S) [Mass/Vol] 4.0 g/dL Normal 2.2-4.2 [facility] Comment on above: Order Comment: 'TROP ' Serial specimen #1, #2 or #3: 1 Performed By: #### L 100.0100, L500.2500, L501.4020, L500.3400 ####[facility] [address] [place], [address] T PROT 7.8 g/dL Normal 6.4-8.2 [facility] Comment on above: Order Comment: 'TROP ' Serial specimen #1, #2 or #3: 1 Performed By: #### L 100.0100, L500.2500, L501.4020, L500.3400 ####[facility] [address] [place], [address] Lymphocytes Auto (Unsp spec) [#/Vol]Ordered By: Julien Holder on 04-18-2024 Lymphocytes (Bld) [#/Vol] 0.59 10*3/uL Low 0.83-4.51 [facility] Lymphocytes/100 WBC Auto (Un sp spec)Ordered By: Julien Holder on 04-18-2024 Lymphocytes/100 WBC (Bld) 11.4 % Low 19-41 [facility] MCV (mean corpuscular volume ) determinationOrdered By: Julien Holder on 04-18-2024 MCV (RBC) [Entitic vol] 92.8 fL 81-99 [facility] Mean corpuscular hemoglobin (MCH) determinationOrdered By: Julien Holder on 04-18-2024 MCH (RBC) [Entitic mass] 31.5 pg 27.0-32.0 [facility] Mean corpuscular hemoglobin concentration (MCHC) determinationOrdered By: Juilen Holder on 04-18-2024 MCHC (RBC) [Mass/Vol] 34.0 g/dL 32-36 [facility] Mean platelet volume determi nationOrdered By: Julien Holder on 04-18-2024 Platelet mean volume (Bld) [Entitic vol] 8.8 fL 6.2-12.0 [facility] Microscopic analysis of urin e for red blood cells (RBC)Ordered By: Julien Holder on 04-18-2024 Microscopic analysis of urine for red blood cells (RBC) 0 SEEN /hpf 0-5 [facility] Urine RBC 0 SEEN /hpf 0-5 [facility] Monocyte percentageOrdered B y: Julien Holder on 04-18-2024 Monocytes/100 WBC (Bld) 12.4 % High 0-10 [facility] Mucus LM Ql (Urine sed)Order ed By: Julien Holder on 04-18-2024 Mucus Ql (Urine sed) 0 SEEN /hpf [facility] Neutrophil percentageOrdered By: Julien Holder on 04-18-2024 Neutrophils/100 WBC (Bld) 75.0 % High 47-70 [facility] Nitrite Test strip Ql (U)Ord ered By: Julien Holder on 04-18-2024 Nitrite Ql (U) Negative Negative [facility] Nucleated red blood cell per centageOrdered By: Julien Holder on 04-18-2024 Nucleated RBC/100 WBC (Bld) [Ratio] 0 % 0-5 [facility] Platelet countOrdered By: Juan Holder on 04-18-2024 Platelets (Bld) [#/Vol] 249 10*3/uL 150-450 [facility] Potassium measurementOrdered By: Julien Holder on 04-18-2024 Potassium [Moles/Vol] 3.8 mmol/L 3.5-5.1 [facility] Protein Test strip Ql (U)Ord ered By: Julien Holder on 04-18-2024 Protein Ql (U) Negative Negative [facility] RBC Auto (Bld) [#/Vol]Ordere d By: Julien Holder on 04-18-2024 RBC (Bld) [#/Vol] 4.28 10*6/uL 4.2-5.4 [facility] Sacrum-Coccyx min 2 Viewson 04-18-2024 Sacrum-Coccyx min 2 Views Normal [facility] Serum anion gap measurementO rdered By: Julien Holder on 04-18-2024 Anion gap [Moles/Vol] 7 mmol/L 5-15 [facility] Serum globulin measurementOr dered By: Julien Holder on 04-18-2024 Globulin (S) [Mass/Vol] 4.0 g/dL 2.2-4.2 [facility] Serum or plasma alanine carballo otransferase (ALT) measurementOrdered By: Julien Holder on 04-18-2024 ALT [Catalytic activity/Vol] 36 U/L 13-56 [facility] Serum or plasma albumin anjel urement (mass/volume)Ordered By: Julien Holder on 04-18-2024 Albumin [Mass/Vol] 3.8 g/dL 3.2-5.0 [facility] Serum or plasma alkaline coretta sphatase measurementOrdered By: Julien Holder on 04-18-2024 ALP [Catalytic activity/Vol] 73 U/L 45-117 [facility] Serum or plasma calcium anjel urement (mass/volume)Ordered By: Julien Holder on 04-18-2024 Calcium [Mass/Vol] 8.9 mg/dL 8.5-10.1 [facility] Serum or plasma creatinine m easurement (mass/volume)Ordered By: Julien Holder on 04-18-2024 Creatinine [Mass/Vol] 0.56 mg/dL 0.55-1.02 [facility] Comment on above: The validity of the calculated GFR & GFRAA in patients over 70 years has not been determined. Clinical correlation is essential. Serum or plasma urea nitroge n measurement (mass/volume)Ordered By: Julien Holder on 04-18-2024 Urea nitrogen [Mass/Vol] 5 mg/dL Low 7-18 [facility] Sodium levelOrdered By: Neil Holder on 04-18-2024 Sodium [Moles/Vol] 130 mmol/L Low 136-145 [facility] Squamous epithelial cells de tection in urine sediment by light microscopyOrdered By: Julien Holder on 04-18-2024 Epithelial cells.squamous LM Ql (Urine sed) 0 SEEN /hpf 5-10 [facility] Total proteinOrdered By: Griffin Holder on 04-18-2024 Protein [Mass/Vol] 7.8 g/dL 6.4-8.2 [facility] Troponin IOrdered By: Julien Holder on 04-18-2024 Troponin I 4 pg/mL 3.0-54.0 [facility] Comment on above: Please Note: New Stephanie t Units and Gender Specific Reference Ranges. For more information see Policy Stat Procedure [place] High Sensitivity Troponin (TNIH) and attachments. Troponin I High Sensitivity 4 pg/mL 3.0-54.0 [facility] Comment on above: Please Note: New Stephanie t Units and Gender Specific Reference Ranges. For more information see Policy Stat Procedure [place] High Sensitivity Troponin (TNIH) and attachments. Urinalysis, Completeon 04-18 RBC 0 SEEN Normal 0-5 [facility] Comment on above: Order Comment: CLEAN CATCH Performed By: #### L 400.0001 ####[facility] [address] [place], [address] Urine blood detectionOrdered By: Julien Holder on 04-18-2024 Urine Occult Blood Negative Negative [facility] Urine clarityOrdered By: Griffin Holder on 04-18-2024 Clarity (U) Clear Clear [facility] Urine color determinationOrd ered By: uJlien Holder on 04-18-2024 Color (U) Straw Yellow [facility] Urine glucose detectionOrder ed By: Julien Holder on 04-18-2024 Glucose Ql (U) Normal mg/dl Normal [facility] Urine leukocyte esterase det ection by dipstickOrdered By: Julien Holder on 04-18-2024 Leukocyte esterase Test strip Ql (U) Negative Negative [facility] Urine pHOrdered By: Julien marie on 04-18-2024 pH (U) 7.0 [pH] 5.0 - 8.0 [facility] Urine sediment bacteria coun t by microscopy (number/high power field)Ordered By: Julien Holder on 04-18-2024 Bacteria LM.HPF (Urine sed) [#/Area] RARE /hpf None Seen [facility] Urine specific gravity measu rementOrdered By: Julien Holder on 04-18-2024 Specific gravity (U) [Rel density] 1.005 1.002-1.030 [facility] Urine urobilinogen measureme ntOrdered By: Julien Holder on 04-18-2024 Urobilinogen Ql (U) Normal mg/dl Normal [facility] Urobilinogen Ql (U)Ordered B y: Julien Holder on 04-18-2024 Urine Urobilinogen Normal mg/dl Normal [facility] White blood cell (WBC) count Ordered By: Julien Holder on 04-18-2024 WBC (Bld) [#/Vol] 5.2 10*3/uL 4.4-11.0 [facility] White blood cell countOrdere d By: Julien Holder on 04-18-2024 Urine WBC 0 SEEN /hpf 0-5 [facility] White blood cell count 0 SEEN /hpf 0-5 [facility] Emergency Department Summary on 04-16-2024 Emergency Department Summary Normal [facility] Spine Lumbar without Contras ton 04-16-2024 Spine Lumbar without Contrast Normal [facility] Spine Thoracic without Contr ason 04-16-2024 Spine Thoracic without Contras Normal [facility] Albumin to globulin ratioOrd ered By: Easton Hanson on 04-12-2024 Albumin/Globulin [Mass ratio] 1.0 {ratio} 0.9-2.4 [facility] Bilirubin, totalOrdered By: Easton Hanson on 04-12-2024 Bilirubin [Mass/Vol] 0.30 mg/dL 0.20-1.00 [facility] Comment on above: For patients on eltr ombopag therapy, use of Dimension [place] TBIL is not recommended. Blood urea nitrogen (BUN)/cr eatinine ratioOrdered By: Easton Hanson on 04-12-2024 Urea nitrogen/Creatinine [Mass ratio] 12.3 mg/mg 10-20 [facility] Brain/Head without Contrasto n 04-12-2024 Brain/Head without Contrast Normal [facility] CBC-Complete Blood Cnt No Di ffon 04-12-2024 Erythrocyte distribution width (RBC) [Ratio] 11.9 % Normal 11.6-14.6 [facility] Comment on above: Performed By: #### L 500.4050, L100.0500, L501.5425 ####[facility] [address] [place], [address] Hematocrit (Bld) [Volume fraction] 37.2 % Normal 37-47 [facility] Comment on above: Performed By: #### L 500.4050, L100.0500, L501.5425 ####[facility] [address] [place], [address] Hemoglobin (Bld) [Mass/Vol] 12.6 g/dL Normal 12.0-15.0 [facility] Comment on above: Performed By: #### L 500.4050, L100.0500, L501.5425 ####[facility] [address] [place], [address] MCH (RBC) [Entitic mass] 31.7 pg Normal 27.0-32.0 [facility] Comment on above: Performed By: #### L 500.4050, L100.0500, L501.5425 ####[facility] [address] [place], [address] MCHC (RBC) [Mass/Vol] 33.9 g/dL Normal 32-36 [facility] Comment on above: Performed By: #### L 500.4050, L100.0500, L501.5425 ####[facility] [address] [place], [address] MCV (RBC) [Entitic vol] 93.5 fL Normal 81-99 [facility] Comment on above: Performed By: #### L 500.4050, L100.0500, L501.5425 ####[facility] [address] [place], [address] Platelet mean volume (Bld) [Entitic vol] 8.9 fL Normal 6.2-12.0 [facility] Comment on above: Performed By: #### L 500.4050, L100.0500, L501.5425 ####[facility] [address] [place], [address] Platelets (Bld) [#/Vol] 222 10*3/uL Normal 150-450 [facility] Comment on above: Performed By: #### L 500.4050, L100.0500, L501.5425 ####[facility] [address] [place], [address] RBC (Bld) [#/Vol] 3.98 10*6/uL Low 4.2-5.4 [facility] Comment on above: Performed By: #### L 500.4050, L100.0500, L501.5425 ####[facility] [address] [place], [address] RDW SD 41.4 fl Normal 35.1-43.9 [facility] Comment on above: Performed By: #### L 500.4050, L100.0500, L501.5425 ####[facility] [address] [place], [address] WBC (Bld) [#/Vol] 5.5 10*3/uL Normal 4.4-11.0 [facility] Comment on above: Performed By: #### L 500.4050, L100.0500, L501.5425 ####[facility] [facility] [address] [place], [address] Carbon dioxide measurementOr dered By: Easton Hanson on 04-12-2024 CO2 [Moles/Vol] 26.0 mmol/L 21.0-32.0 [facility] Chest 1 View (Portable)on Chest 1 View (Portable) Normal [facility] Chloride measurementOrdered By: Easton Hanson on 04-12-2024 Chloride [Moles/Vol] 95 mmol/L Low 98-107 [facility] Comprehensive Metabolic Prof ilon 04-12-2024 Albumin [Mass/Vol] 3.6 g/dL Normal 3.2-5.0 [facility] Comment on above: Performed By: #### L 500.4050, L100.0500, L501.5425 ####[facility] [address] [place], [address] Albumin/Globulin [Mass ratio] 1.0 {ratio} Normal 0.9-2.4 [facility] Comment on above: Performed By: #### L 500.4050, L100.0500, L501.5425 ####[facility] [address] [place], [address] ALK P 70 U/L Normal 45-117 [facility] Comment on above: Performed By: #### L 500.4050, L100.0500, L501.5425 ####[facility] [address] [place], [address] ALT [Catalytic activity/Vol] 23 U/L Normal 13-56 [facility] Comment on above: Performed By: #### L 500.4050, L100.0500, L501.5425 ####[facility] [address] [place], [address] AST [Catalytic activity/Vol] 26 U/L Normal 15-37 [facility] Comment on above: Performed By: #### L 500.4050, L100.0500, L501.5425 ####[facility] [address] [place], [address] Bilirubin [Mass/Vol] 0.30 mg/dL Normal 0.20-1.00 [facility] Comment on above: Result Comment: For patients on eltrombopag therapy, use of Dimension [place] TBIL is not recommended. Performed By: #### L 500.4050, L100.0500, L501.5425 ####[facility] [address] [place], [address] BUN/CRE 12.3 RATIO Normal 10-20 [facility] Comment on above: Performed By: #### L 500.4050, L100.0500, L501.5425 ####[facility] [address] [place], [address] CA,Total 9.0 mg/dL Normal 8.5-10.1 [facility] Comment on above: Performed By: #### L 500.4050, L100.0500, L501.5425 ####[facility] [address] [place], [address] Chloride [Moles/Vol] 95 mmol/L Low 98-107 [facility] Comment on above: Performed By: #### L 500.4050, L100.0500, L501.5425 ####[facility] [address] [place], [address] CO2 [Moles/Vol] 26.0 mmol/L Normal 21.0-32.0 [facility] Comment on above: Performed By: #### L 500.4050, L100.0500, L501.5425 ####[facility] [address] [place], [address] Creatinine [Mass/Vol] 0.65 mg/dL Normal 0.55-1.02 [facility] Comment on above: Result Comment: The validity of the calculated GFR GFRAA in patients over70 years has not been determined. Clinical correlation isessential. Performed By: #### L 500.4050, L100.0500, L501.5425 ####[facility] [address] [place], [address] ECRCL 57.44 ml/min Normal [facility] Comment on above: Performed By: #### L 500.4050, L100.0500, L501.5425 ####[facility] [address] [place], [address] EST GFR - AA 114 mL/min Normal >60 [facility] Comment on above: Result Comment: Afri can Chilean GFR Calc Performed By: #### L 500.4050, L100.0500, L501.5425 ####[facility] [address] [place], [address] GAP 8 Normal 5-15 [facility] Comment on above: Performed By: #### L 500.4050, L100.0500, L501.5425 ####[facility] [address] [place], [address] GFR/1.73 sq M.predicted among non-blacks MDRD (S/P/Bld) [Vol rate/Area] 95 mL/min/{1.73_m2} Normal >60 [facility] Comment on above: Result Comment: Non- GFR Calc Performed By: #### L 500.4050, L100.0500, L501.5425 ####[facility] [address] [place], [address] Globulin (S) [Mass/Vol] 3.6 g/dL Normal 2.2-4.2 [facility] Comment on above: Performed By: #### L 500.4050, L100.0500, L501.5425 ####[facility] [address] [place], [address] Glucose [Mass/Vol] 108 mg/dL High 74-106 [facility] Comment on above: Result Comment: Fast ing Glucose result from 100 to 125 mg/dLsuggests IMPAIRED HOMEOSTASIS per A.D.A. criteria. Performed By: #### L 500.4050, L100.0500, L501.5425 ####[facility] [address] [place], [address] Potassium [Moles/Vol] 3.8 mmol/L Normal 3.5-5.1 [facility] Comment on above: Performed By: #### L 500.4050, L100.0500, L501.5425 ####[facility] [address] [place], [address] Sodium [Moles/Vol] 130 mmol/L Low 136-145 [facility] Comment on above: Performed By: #### L 500.4050, L100.0500, L501.5425 ####[facility] [address] [place], [address] T PROT 7.2 g/dL Normal 6.4-8.2 [facility] Comment on above: Performed By: #### L 500.4050, L100.0500, L501.5425 ####[facility] [address] [place], [address] Urea nitrogen [Mass/Vol] 8 mg/dL Normal 7-18 [facility] Comment on above: Performed By: #### L 500.4050, L100.0500, L501.5425 ####[facility] [address] [place], [address] Emergency Department Summary on 04-12-2024 Emergency Department Summary Normal [facility] Erythrocyte distribution wid th ratioOrdered By: Easton Hanson on 04-12-2024 Erythrocyte distribution width (RBC) [Ratio] 11.9 % 11.6-14.6 [facility] Erythrocyte distribution wid th standard deviationOrdered By: Easton Hanson on 04-12-2024 Erythrocyte distribution width (RBC) [Entitic vol] 41.4 fL 35.1-43.9 [facility] Erythrocyte distribution width (RBC) [Ratio] 41.4 fl 35.1-43.9 [facility] Estimated glomerular filtrat ion rate (GFR) AmericanOrdered By: Easton Hanson on 04-12-2024 Estimated GFR (MDRD) Amer 114 mL/min >60 [facility] Comment on above: GFR Calc Estimation of creatinine valarie aranceOrdered By: Easton Hanson on 04-12-2024 Estimated Creatinine Clearance Calc 57.44 ml/min [facility] Glomerular filtration rate ( GFR) estimationOrdered By: Easton Hanson on 04-12-2024 Estimated GFR (MDRD) Non-Af Amer 95 mL/min >60 [facility] Comment on above: Non- GFR Calc GFR/1.73 sq M.predicted among non-blacks MDRD (S/P/Bld) [Vol rate/Area] 95 mL/min/{1.73_m2} >60 [facility] Comment on above: Non- GFR Calc Glucose measurementOrdered B y: Easton Hanson on 04-12-2024 Glucose [Mass/Vol] 108 mg/dL High 74-106 [facility] Comment on above: Fasting Glucose resu lt from 100 to 125 mg/dL suggests IMPAIRED HOMEOSTASIS per A.D.A. criteria. Hematocrit Auto (Bld) [Volum e fraction]Ordered By: Easton Hanson on 04-12-2024 Hematocrit (Bld) [Volume fraction] 37.2 % 37-47 [facility] Hemoglobin measurementOrdere d By: Easton Hanson on 04-12-2024 Hemoglobin (Bld) [Mass/Vol] 12.6 g/dL 12.0-15.0 [facility] L501.4020on 04-12-2024 TROPONIN-I HS 4 pg/mL Normal 3.0-54.0 [facility] Comment on above: Result Comment: Amee bustos Note: New Test Units and Gender Specific Reference Ranges. For more information see Policy Stat Procedure [place] High Sensitivity Troponin (TNIH) and attachments. Performed By: #### L 501.4020 ####[facility] [address] [place], [address] L501.5425on 04-12-2024 TROPONIN-I HS 4 pg/mL Normal 3.0-54.0 [facility] Comment on above: Order Comment: 1Y Result Comment: Amee bustos Note: New Test Units and Gender Specific Reference Ranges. For more information see Policy Stat Procedure [place] High Sensitivity Troponin (TNIH) and attachments. Performed By: #### L 500.4050, L100.0500, L501.5425 ####[facility] [address] [place], [address] Laboratory - Chemistry and C hemistry - challengeOrdered By: Easton Hanson on 04-12-2024 AST [Catalytic activity/Vol] 26 U/L 15-37 [facility] MCV (mean corpuscular volume ) determinationOrdered By: Easton Hanson on 04-12-2024 MCV (RBC) [Entitic vol] 93.5 fL 81-99 [facility] Mean corpuscular hemoglobin (MCH) determinationOrdered By: Easton Hanson on 04-12-2024 MCH (RBC) [Entitic mass] 31.7 pg 27.0-32.0 [facility] Mean corpuscular hemoglobin concentration (MCHC) determinationOrdered By: Easton Hanson on 04-12-2024 MCHC (RBC) [Mass/Vol] 33.9 g/dL 32-36 [facility] Mean platelet volume determi nationOrdered By: Easton Hanson on 04-12-2024 Platelet mean volume (Bld) [Entitic vol] 8.9 fL 6.2-12.0 [facility] No Panel InformationOrdered By: Agn Skaggs on 04-12-2024 Influenza Types A,B Rapid (Clinic) Pos FLU B&Neg FLU A [facility] Platelet countOrdered By: Pedro Hanson on 04-12-2024 Platelets (Bld) [#/Vol] 222 10*3/uL 150-450 [facility] Potassium measurementOrdered By: Easton Hanson on 04-12-2024 Potassium [Moles/Vol] 3.8 mmol/L 3.5-5.1 [facility] RBC Auto (Bld) [#/Vol]Ordere d By: Easton Hanson on 04-12-2024 RBC (Bld) [#/Vol] 3.98 10*6/uL Low 4.2-5.4 [facility] Serum anion gap measurementO rdered By: Easton Hanson on 04-12-2024 Anion gap [Moles/Vol] 8 mmol/L 5-15 [facility] Serum globulin measurementOr dered By: Easton Hanson on 04-12-2024 Globulin (S) [Mass/Vol] 3.6 g/dL 2.2-4.2 [facility] Serum or plasma alanine carballo otransferase (ALT) measurementOrdered By: Easton Hanson on 04-12-2024 ALT [Catalytic activity/Vol] 23 U/L 13-56 [facility] Serum or plasma albumin anjel urement (mass/volume)Ordered By: Easton Hanson on 04-12-2024 Albumin [Mass/Vol] 3.6 g/dL 3.2-5.0 [facility] Serum or plasma alkaline coretta sphatase measurementOrdered By: Easton Hanson on 04-12-2024 ALP [Catalytic activity/Vol] 70 U/L 45-117 [facility] Serum or plasma calcium anjel urement (mass/volume)Ordered By: Easton Hanson on 04-12-2024 Calcium [Mass/Vol] 9.0 mg/dL 8.5-10.1 [facility] Serum or plasma creatinine m easurement (mass/volume)Ordered By: Easton Hanson on 04-12-2024 Creatinine [Mass/Vol] 0.65 mg/dL 0.55-1.02 [facility] Comment on above: The validity of the calculated GFR & GFRAA in patients over 70 years has not been determined. Clinical correlation is essential. Serum or plasma urea nitroge n measurement (mass/volume)Ordered By: Easton Hanson on 04-12-2024 Urea nitrogen [Mass/Vol] 8 mg/dL 7-18 [facility] Sodium levelOrdered By: Krysta Hanson on 04-12-2024 Sodium [Moles/Vol] 130 mmol/L Low 136-145 [facility] Spine Cervical without Contr ason 04-12-2024 Spine Cervical without Contras Normal [facility] Total proteinOrdered By: Sarah Hanson on 04-12-2024 Protein [Mass/Vol] 7.2 g/dL 6.4-8.2 [facility] Troponin IOrdered By: Easton Hanson on 04-12-2024 Troponin I 4 pg/mL 3.0-54.0 [facility] Comment on above: Please Note: New Stephanie t Units and Gender Specific Reference Ranges. For more information see Policy Stat Procedure [place] High Sensitivity Troponin (TNIH) and attachments. Troponin I High Sensitivity 4 pg/mL 3.0-54.0 [facility] Comment on above: Please Note: New Stephanie t Units and Gender Specific Reference Ranges. For more information see Policy Stat Procedure [place] High Sensitivity Troponin (TNIH) and attachments. Urgent Care Visit Reporton 0 04-12-2024 Urgent Care Visit Report Normal [facility] White blood cell (WBC) count Ordered By: Easton Hanson on 04-12-2024 WBC (Bld) [#/Vol] 5.5 10*3/uL 4.4-11.0 [facility] RONNELL w/ Reflex Mult Confirmon 04-06-2024 ANTI-DNA (DS)AB TNP Normal [facility] Comment on above: Performed By: #### L 3130.0010, L501.5200, L500.4050, L100.0100, L101.9900, L501.9520, L501.6710, L3100.5450 ####[facility] [address] [place], [place], [id number] ANTISCLERODERM TNP Normal [facility] Comment on above: Performed By: #### L 3130.0010, L501.5200, L500.4050, L100.0100, L101.9900, L501.9520, L501.6710, L3100.5450 ####[facility] [address] [place], [place], [id number] [place] Lambda Light Chainson 04-06-2024 FR KAPPA LT CHN 14.7 mg/L Normal 3.3-19.4 [facility] Comment on above: Performed By: #### L 3130.0010, L501.5200, L500.4050, L100.0100, L101.9900, L501.9520, L501.6710, L3100.5450 ####[facility] [address] [place], [place], [id number] FR LAMBDA LT CH 11.5 mg/L Normal 5.7-26.3 [facility] Comment on above: Performed By: #### L 3130.0010, L501.5200, L500.4050, L100.0100, L101.9900, L501.9520, L501.6710, L3100.5450 ####[facility] [address] [place], [place], [id number] KAPPA/LAMBDA % 1.28 Normal 0.26-1.65 [facility] Comment on above: Result Comment: Perf ormed at: - [facility] [place], [place] [id number] Director: Dannie Meza PhD, Phone: [phone] Performed By: #### L 3130.0010, L501.5200, L500.4050, L100.0100, L101.9900, L501.9520, L501.6710, L3100.5450 ####[facility] [address] [place], [place], [address] RONNELL serumOrdered By: Linda bob on 04-04-2024 Anti-Nuclear Antibody Screen Negative Negative [facility] Comment on above: Performed at: [facility] [address] [place], [place] [id number] Director: Dannie Meza PhD, Phone: [phone] Absolute lymphocyte countOrd ered By: Linda Amaya on 04-04-2024 Lymphocytes Auto (Unsp spec) [#/Vol] 0.65 10*3/uL Low 0.83-4.51 [facility] Absolute neutrophil countOrd ered By: Linda Amaya on 04-04-2024 Neutrophils (Bld) [#/Vol] 5.8 10*3/uL 2.0-7.7 [facility] Albumin to globulin ratioOrd ered By: Linda Amaya on 04-04-2024 Albumin/Globulin [Mass ratio] 1.1 {ratio} 0.9-2.4 [facility] Automated lymphocyte count a s percentage of total leukocytesOrdered By: Linda Amaya on 04-04-2024 Lymphocytes/100 WBC Auto (Unsp spec) 9.0 % Low 19-41 [facility] Basophil percentageOrdered B y: Linda Amaya on 04-04-2024 Basophils/100 WBC (Bld) 0.6 % 0-1 [facility] Bilirubin, totalOrdered By: Linda Amaya on 04-04-2024 Bilirubin [Mass/Vol] 0.40 mg/dL 0.20-1.00 [facility] Comment on above: For patients on eltr ombopag therapy, use of Dimension [place] TBIL is not recommended. Blood urea nitrogen (BUN)/cr eatinine ratioOrdered By: Linda Amaya on 04-04-2024 Urea nitrogen/Creatinine [Mass ratio] 13.2 mg/mg 12-12 [facility] C-reactive protein measureme nt by high sensitivity methodOrdered By: Linda Amaya on 04-04-2024 C-Reactive Protein Extended Range < 2.90 mg/L 0.0-3.0 [facility] Comment on above: C-Reactive Protein ( CRP) provides useful information for thediagnosis, therapy and monitoring of inflammatory processesand associated diseases. For the evaluation of Relative Riskfor Cardiovascular Disease, a High Sensitivity CRP (HSCRP)should be ordered. CBC W/Diff, Automatedon 03-26 Absolute Lymph 0.65 X10 3/uL Low 0.83-4.51 [facility] Comment on above: Performed By: #### L 3130.0010, L501.5200, L500.4050, L100.0100, L101.9900, L501.9520, L501.6710, L3100.5450 ####[facility] [address] [place], [address] Absolute Neut 5.8 X10 3/uL Normal 2.0-7.7 [facility] Comment on above: Performed By: #### L 3130.0010, L501.5200, L500.4050, L100.0100, L101.9900, L501.9520, L501.6710, L3100.5450 ####[facility] [address] [place], [address] Basophils/100 WBC (Bld) 0.6 % Normal 0-1 [facility] Comment on above: Performed By: #### L 3130.0010, L501.5200, L500.4050, L100.0100, L101.9900, L501.9520, L501.6710, L3100.5450 ####[facility] [address] [place], [address] Eosinophils/100 WBC (Bld) 0.6 % Normal 0-5 [facility] Comment on above: Performed By: #### L 3130.0010, L501.5200, L500.4050, L100.0100, L101.9900, L501.9520, L501.6710, L3100.5450 ####[facility] [address] [place], [place], [phone] Erythrocyte distribution width (RBC) [Ratio] 12.0 % Normal 11.6-14.6 [facility] Comment on above: Performed By: #### L 3130.0010, L501.5200, L500.4050, L100.0100, L101.9900, L501.9520, L501.6710, L3100.5450 ####[facility] [address] [place], [place], [phone] Hematocrit (Bld) [Volume fraction] 37.3 % Normal 37-47 [facility] Comment on above: Performed By: #### L 3130.0010, L501.5200, L500.4050, L100.0100, L101.9900, L501.9520, L501.6710, L3100.5450 ####[facility] [address] [place], [address] Hemoglobin (Bld) [Mass/Vol] 12.7 g/dL Normal 12.0-15.0 [facility] Comment on above: Performed By: #### L 3130.0010, L501.5200, L500.4050, L100.0100, L101.9900, L501.9520, L501.6710, L3100.5450 ####[facility] [address] [place], [address] IG% 0.300 Normal 0.0-0.9 [facility] Comment on above: Result Comment: IG% - Immature Granulocytes (promyelocytes, myelocytes andmetamyelocytes) > 1% indicates that a LEFT SHIFT is Present. Performed By: #### L 3130.0010, L501.5200, L500.4050, L100.0100, L101.9900, L501.9520, L501.6710, L3100.5450 ####[facility] [address] [place], [address] Lymphocytes/100 WBC (Bld) 9.0 % Low 19-41 [facility] Comment on above: Performed By: #### L 3130.0010, L501.5200, L500.4050, L100.0100, L101.9900, L501.9520, L501.6710, L3100.5450 ####[facility] [address] [place], [address] MCH (RBC) [Entitic mass] 32.0 pg Normal 27.0-32.0 [facility] Comment on above: Performed By: #### L 3130.0010, L501.5200, L500.4050, L100.0100, L101.9900, L501.9520, L501.6710, L3100.5450 ####[facility] [address] [place], [address] MCHC (RBC) [Mass/Vol] 34.0 g/dL Normal 32-36 [facility] Comment on above: Performed By: #### L 3130.0010, L501.5200, L500.4050, L100.0100, L101.9900, L501.9520, L501.6710, L3100.5450 ####[facility] [address] [place], [address] MCV (RBC) [Entitic vol] 94.0 fL Normal 81-99 [facility] Comment on above: Performed By: #### L 3130.0010, L501.5200, L500.4050, L100.0100, L101.9900, L501.9520, L501.6710, L3100.5450 ####[facility] [address] [place], [address] Monocytes/100 WBC (Bld) 10.2 % High 0-10 [facility] Comment on above: Performed By: #### L 3130.0010, L501.5200, L500.4050, L100.0100, L101.9900, L501.9520, L501.6710, L3100.5450 ####[facility] [address] [place], [address] Neutrophils/100 WBC (Bld) 79.3 % High 47-70 [facility] Comment on above: Performed By: #### L 3130.0010, L501.5200, L500.4050, L100.0100, L101.9900, L501.9520, L501.6710, L3100.5450 ####[facility] [address] [place], [address] Nucleated RBC (Bld) [#/Vol] 0 10*3/uL Normal 0-5 [facility] Comment on above: Performed By: #### L 3130.0010, L501.5200, L500.4050, L100.0100, L101.9900, L501.9520, L501.6710, L3100.5450 ####[facility] [address] [place], [address] Platelet mean volume (Bld) [Entitic vol] 9.7 fL Normal 6.2-12.0 [facility] Comment on above: Performed By: #### L 3130.0010, L501.5200, L500.4050, L100.0100, L101.9900, L501.9520, L501.6710, L3100.5450 ####[facility] [address] [place], [address] Platelets (Bld) [#/Vol] 332 10*3/uL Normal 150-450 [facility] Comment on above: Performed By: #### L 3130.0010, L501.5200, L500.4050, L100.0100, L101.9900, L501.9520, L501.6710, L3100.5450 ####[facility] [address] [place], [address] RBC (Bld) [#/Vol] 3.97 10*6/uL Low 4.2-5.4 [facility] Comment on above: Performed By: #### L 3130.0010, L501.5200, L500.4050, L100.0100, L101.9900, L501.9520, L501.6710, L3100.5450 ####[facility] [address] [place], [place], [phone]) RDW SD 41.7 fl Normal 35.1-43.9 [facility] Comment on above: Performed By: #### L 3130.0010, L501.5200, L500.4050, L100.0100, L101.9900, L501.9520, L501.6710, L3100.5450 ####[facility] [address] [place], [address] WBC (Bld) [#/Vol] 7.3 10*3/uL Normal 4.4-11.0 [facility] Comment on above: Performed By: #### L 3130.0010, L501.5200, L500.4050, L100.0100, L101.9900, L501.9520, L501.6710, L3100.5450 ####[facility] [address] [place], [address] CRPon 04-04-2024 C-REACTIVE PROT < 2.90 Normal 0.0-3.0 [facility] Comment on above: Result Comment: C-Re active Protein (CRP) provides useful information for thediagnosis, therapy and monitoring of inflammatory processesand associated diseases. For the evaluation of Relative Riskfor Cardiovascular Disease, a High Sensitivity CRP (HSCRP)should be ordered. Performed By: #### L 3130.0010, L501.5200, L500.4050, L100.0100, L101.9900, L501.9520, L501.6710, L3100.5450 ####[facility] [address] [place], [place], [id number] Carbon dioxide measurementOr dered By: Linda Amaya on 04-04-2024 CO2 [Moles/Vol] 27.0 mmol/L 21.0-32.0 [facility] Centromere B antibody assayO rdered By: Linda Amaya on 04-04-2024 Centromere B Antibody [facility] Comment on above: Test not performed Chloride measurementOrdered By: Linda Amaya on 04-04-2024 Chloride [Moles/Vol] 100 mmol/L 98-107 [facility] Chromatin antibody assayOrde red By: Linda Amaya on 04-04-2024 Antichromatin Antibodies [facility] Comment on above: Test not performed Comprehensive Metabolic Prof ilon 04-04-2024 Albumin [Mass/Vol] 3.9 g/dL Normal 3.2-5.0 [facility] Comment on above: Performed By: #### L 3130.0010, L501.5200, L500.4050, L100.0100, L101.9900, L501.9520, L501.6710, L3100.5450 ####[facility] [address] [place], [place], [id number] Albumin/Globulin [Mass ratio] 1.1 {ratio} Normal 0.9-2.4 [facility] Comment on above: Performed By: #### L 3130.0010, L501.5200, L500.4050, L100.0100, L101.9900, L501.9520, L501.6710, L3100.5450 ####[facility] [address] [place], [address] ALK P 61 U/L Normal 45-117 [facility] Comment on above: Performed By: #### L 3130.0010, L501.5200, L500.4050, L100.0100, L101.9900, L501.9520, L501.6710, L3100.5450 ####[facility] [address] [place], [address] ALT [Catalytic activity/Vol] 19 U/L Normal 13-56 [facility] Comment on above: Performed By: #### L 3130.0010, L501.5200, L500.4050, L100.0100, L101.9900, L501.9520, L501.6710, L3100.5450 ####[facility] [address] [place], [address] AST [Catalytic activity/Vol] 15 U/L Normal 15-37 [facility] Comment on above: Performed By: #### L 3130.0010, L501.5200, L500.4050, L100.0100, L101.9900, L501.9520, L501.6710, L3100.5450 ####[facility] [address] [place], [address] Bilirubin [Mass/Vol] 0.40 mg/dL Normal 0.20-1.00 [facility] Comment on above: Result Comment: For patients on eltrombopag therapy, use of Dimension [place] TBIL is not recommended. Performed By: #### L 3130.0010, L501.5200, L500.4050, L100.0100, L101.9900, L501.9520, L501.6710, L3100.5450 ####[facility] [address] [place], [address] BUN/CRE 13.2 RATIO Normal 10-20 [facility] Comment on above: Performed By: #### L 3130.0010, L501.5200, L500.4050, L100.0100, L101.9900, L501.9520, L501.6710, L3100.5450 ####[facility] [address] [place], [address] CA,Total 9.2 mg/dL Normal 8.5-10.1 [facility] Comment on above: Performed By: #### L 3130.0010, L501.5200, L500.4050, L100.0100, L101.9900, L501.9520, L501.6710, L3100.5450 ####[facility] [address] [place], [address] Chloride [Moles/Vol] 100 mmol/L Normal 98-107 [facility] Comment on above: Performed By: #### L 3130.0010, L501.5200, L500.4050, L100.0100, L101.9900, L501.9520, L501.6710, L3100.5450 ####[facility] [address] [place], [address] CO2 [Moles/Vol] 27.0 mmol/L Normal 21.0-32.0 [facility] Comment on above: Performed By: #### L 3130.0010, L501.5200, L500.4050, L100.0100, L101.9900, L501.9520, L501.6710, L3100.5450 ####[facility] [address] [place], [address] Creatinine [Mass/Vol] 0.61 mg/dL Normal 0.55-1.02 [facility] Comment on above: Result Comment: The validity of the calculated GFR GFRAA in patients over70 years has not been determined. Clinical correlation isessential. Performed By: #### L 3130.0010, L501.5200, L500.4050, L100.0100, L101.9900, L501.9520, L501.6710, L3100.5450 ####[facility] [address] [place], [address] EST GFR - AA 124 mL/min Normal >60 [facility] Comment on above: Result Comment: Afri can [place]an GFR Calc Performed By: #### L 3130.0010, L501.5200, L500.4050, L100.0100, L101.9900, L501.9520, L501.6710, L3100.5450 ####[facility] [address] [place], [place], [phone] GAP 7 Normal 5-15 [facility] Comment on above: Performed By: #### L 3130.0010, L501.5200, L500.4050, L100.0100, L101.9900, L501.9520, L501.6710, L3100.5450 ####[facility] [address] [place], [place], [id number] GFR/1.73 sq M.predicted among non-blacks MDRD (S/P/Bld) [Vol rate/Area] 102 mL/min/{1.73_m2} Normal >60 [facility] Comment on above: Result Comment: Non- GFR Calc Performed By: #### L 3130.0010, L501.5200, L500.4050, L100.0100, L101.9900, L501.9520, L501.6710, L3100.5450 ####[facility] [address] [place], [place], [phone]) Globulin (S) [Mass/Vol] 3.4 g/dL Normal 2.2-4.2 [facility] Comment on above: Performed By: #### L 3130.0010, L501.5200, L500.4050, L100.0100, L101.9900, L501.9520, L501.6710, L3100.5450 ####[facility] [address] [place], [address] Glucose [Mass/Vol] 98 mg/dL Normal 74-106 [facility] Comment on above: Performed By: #### L 3130.0010, L501.5200, L500.4050, L100.0100, L101.9900, L501.9520, L501.6710, L3100.5450 ####[facility] [address] [place], [address] Potassium [Moles/Vol] 3.5 mmol/L Normal 3.5-5.1 [facility] Comment on above: Performed By: #### L 3130.0010, L501.5200, L500.4050, L100.0100, L101.9900, L501.9520, L501.6710, L3100.5450 ####[facility] [address] [place], [address] Sodium [Moles/Vol] 134 mmol/L Low 136-145 [facility] Comment on above: Performed By: #### L 3130.0010, L501.5200, L500.4050, L100.0100, L101.9900, L501.9520, L501.6710, L3100.5450 ####[facility] [address] [place], [address] T PROT 7.3 g/dL Normal 6.4-8.2 [facility] Comment on above: Performed By: #### L 3130.0010, L501.5200, L500.4050, L100.0100, L101.9900, L501.9520, L501.6710, L3100.5450 ####[facility] [address] [place], [address] Urea nitrogen [Mass/Vol] 8 mg/dL Normal 7-18 [facility] Comment on above: Performed By: #### L 3130.0010, L501.5200, L500.4050, L100.0100, L101.9900, L501.9520, L501.6710, L3100.5450 ####[facility] [address] [place], [place], [id number] DNA double strand Ab Qn (S)O rdered By: Linda Amaya on 04-04-2024 Anti-Double Strand DNA Antibody TNP [facility] Comment on above: Test not performed Eosinophil percentageOrdered By: Linda Amaya on 04-04-2024 Eosinophils/100 WBC (Bld) 0.6 % 0-5 [facility] Erythrocyte Sed Rateon 04-04 SED RATE 5 mm/hr Normal 0-30 [facility] Comment on above: Performed By: #### L 3130.0010, L501.5200, L500.4050, L100.0100, L101.9900, L501.9520, L501.6710, L3100.5450 ####[facility] [address] [place], [place], [id number] Erythrocyte distribution wid th ratioOrdered By: Linda Amaya on 04-04-2024 Erythrocyte distribution width (RBC) [Ratio] 12.0 % 11.6-14.6 [facility] Erythrocyte distribution wid th standard deviationOrdered By: Linda Amaya on 04-04-2024 Erythrocyte distribution width (RBC) [Entitic vol] 41.7 fL 35.1-43.9 [facility] Erythrocyte distribution width (RBC) [Ratio] 41.7 fl 35.1-43.9 [facility] Erythrocyte sedimentation ra teOrdered By: Linda Amaya on 04-04-2024 ESR (Bld) [Velocity] 5 mm/h 0-30 [facility] Estimated glomerular filtrat ion rate (GFR) AmericanOrdered By: Linda Amaya on 04-04-2024 Estimated GFR (MDRD) Amer 124 mL/min >60 [facility] Comment on above: GFR Calc Glomerular filtration rate ( GFR) estimationOrdered By: Linda Amaya on 04-04-2024 Estimated GFR (MDRD) Non-Af Amer 102 mL/min >60 [facility] Comment on above: Non- GFR Calc GFR/1.73 sq M.predicted among non-blacks MDRD (S/P/Bld) [Vol rate/Area] 102 mL/min/{1.73_m2} >60 [facility] Comment on above: Non- GFR Calc Glucose measurementOrdered B y: Linda Amaya on 04-04-2024 Glucose [Mass/Vol] 98 mg/dL 74-106 [facility] Hematocrit Auto (Bld) [Volum e fraction]Ordered By: Linda Amaya on 04-04-2024 Hematocrit (Bld) [Volume fraction] 37.3 % 37-47 [facility] Hemoglobin measurementOrdere d By: Linda Amaya on 04-04-2024 Hemoglobin (Bld) [Mass/Vol] 12.7 g/dL 12.0-15.0 [facility] Immature granulocytes/100 WB C Auto (Bld)Ordered By: Lindayasemin Amaya on 04-04-2024 Immature granulocytes/100 WBC (Bld) 0.300 % 0.0-0.9 [facility] Comment on above: IG% - Immature Granu locytes (promyelocytes, myelocytes and metamyelocytes) > 1% indicates that a LEFT SHIFT is Present. Immunoglobulin light chains. kappa [Mass/Vol]Ordered By: Linda Amaya on 04-04-2024 Free [place] Light Chains, Quant 14.7 mg/L 3.3-19.4 [facility] Immunoglobulin light chains. kappa/Immunoglobulin light chains.lambda (S) [Mass ratio]Ordered By: Lindayasemin Amaya on 04-04-2024 Free [place]/Lambda Light Chain Ratio 1.28 0.26-1.65 [facility] Comment on above: Performed at: [address] [id number] Director: Dannie Meza PhD, Phone: [phone] Zhanna-1 antibody assayOrdered B y: Linda Amaya on 04-04-2024 ZHANNA-1 Antibody TNP [facility] Comment on above: Test not performed Laboratory - Chemistry and C hemistry - challengeOrdered By: Linda Amaya on 04-04-2024 AST [Catalytic activity/Vol] 15 U/L 15-37 [facility] Lambda free light chain anjel urementOrdered By: Linda Amaya on 04-04-2024 Free [place] Light Chains, Quant 11.5 mg/L 5.7-26.3 [facility] Lymphocytes Auto (Unsp spec) [#/Vol]Ordered By: Linda Amaya on 04-04-2024 Lymphocytes (Bld) [#/Vol] 0.65 10*3/uL Low 0.83-4.51 [facility] Lymphocytes/100 WBC Auto (Un sp spec)Ordered By: Linda Amaya on 04-04-2024 Lymphocytes/100 WBC (Bld) 9.0 % Low 19-41 [facility] MCV (mean corpuscular volume ) determinationOrdered By: Linda Amaya on 04-04-2024 MCV (RBC) [Entitic vol] 94.0 fL 81-99 [facility] Magnesiumon 04-04-2024 Magnesium [Mass/Vol] 2.4 mg/dL Normal 1.6-2.6 [facility] Comment on above: Performed By: #### L 3130.0010, L501.5200, L500.4050, L100.0100, L101.9900, L501.9520, L501.6710, L3100.5450 ####[facility] [address], [place], [id number] Magnesium measurementOrdered By: Linda Amaya on 04-04-2024 Magnesium [Mass/Vol] 2.4 mg/dL 1.6-2.6 [facility] Mean corpuscular hemoglobin (MCH) determinationOrdered By: Linda Amaya on 04-04-2024 MCH (RBC) [Entitic mass] 32.0 pg 27.0-32.0 [facility] Mean corpuscular hemoglobin concentration (MCHC) determinationOrdered By: Linda Amaya on 04-04-2024 MCHC (RBC) [Mass/Vol] 34.0 g/dL 32-36 [facility] Mean platelet volume determi nationOrdered By: Linda Amaya on 04-04-2024 Platelet mean volume (Bld) [Entitic vol] 9.7 fL 6.2-12.0 [facility] Monocyte percentageOrdered B y: Linda Amaya on 04-04-2024 Monocytes/100 WBC (Bld) 10.2 % High 0-10 [facility] Neurology Visit Reporton Neurology Visit Report Normal [facility] Neutrophil percentageOrdered By: Linda Amaya on 04-04-2024 Neutrophils/100 WBC (Bld) 79.3 % High 47-70 [facility] Nucleated red blood cell per centageOrdered By: Linda Amaya on 04-04-2024 Nucleated RBC/100 WBC (Bld) [Ratio] 0 % 0-5 [facility] Platelet countOrdered By: Aiden Amaya on 04-04-2024 Platelets (Bld) [#/Vol] 332 10*3/uL 150-450 [facility] Potassium measurementOrdered By: Linda Amaya on 04-04-2024 Potassium [Moles/Vol] 3.5 mmol/L 3.5-5.1 [facility] RBC Auto (Bld) [#/Vol]Ordere d By: Linda Amaya on 04-04-2024 RBC (Bld) [#/Vol] 3.97 10*6/uL Low 4.2-5.4 [facility] METAL SPRAYER abOrdered By: Linda ndiaye on 04-04-2024 METAL SPRAYER Antibody [facility] Comment on above: Test not performed SCL-70 extractable nuclear A b Qn (S)Ordered By: Linda Amaya on 04-04-2024 Scl-70 (Scleroderma) Antibody [facility] Comment on above: Test not performed SS-A IgG antibody assayOrder ed By: Linda Amaya on 04-04-2024 SS-A/Ro IgG Antibody [facility] Comment on above: Test not performed SS-B IgG antibody assayOrder ed By: Linda Amaya on 04-04-2024 SS-B/La IgG Antibody [facility] Comment on above: Test not performed Serum DNA double strand anti body assay (units/volume)Ordered By: Linda Amaya on 04-04-2024 DNA double strand Ab Qn (S) [facility] Comment on above: Test not performed Serum Scl-70 antibody assay (units/volume)Ordered By: Linda Amaya on 04-04-2024 SCL-70 extractable nuclear Ab Qn (S) [facility] Comment on above: Test not performed Serum anion gap measurementO rdered By: Linda Amaya on 04-04-2024 Anion gap [Moles/Vol] 7 mmol/L 5-15 [facility] Serum globulin measurementOr dered By: Linda Amaya on 04-04-2024 Globulin (S) [Mass/Vol] 3.4 g/dL 2.2-4.2 [facility] Serum immunoglobulin kappa l ight chains/immunoglobulin lambda light chains mass ratioOrdered By: Linda Amaya on 04-04-2024 Immunoglobulin light chains.kappa/Immunogl obulin light chains.lambda (S) [Mass ratio] 1.28 0.26-1.65 [facility] Comment on above: Performed at: [place] [id number] Director: Dannie Meza PhD, Phone: [phone] Serum or plasma alanine carballo otransferase (ALT) measurementOrdered By: Linda Amaya on 04-04-2024 ALT [Catalytic activity/Vol] 19 U/L 13-56 [facility] Serum or plasma albumin anjel urement (mass/volume)Ordered By: Linda Amaya on 04-04-2024 Albumin [Mass/Vol] 3.9 g/dL 3.2-5.0 [facility] Serum or plasma alkaline coretta sphatase measurementOrdered By: Linda Amaya on 04-04-2024 ALP [Catalytic activity/Vol] 61 U/L 45-117 [facility] Serum or plasma calcium anjel urement (mass/volume)Ordered By: Linda Amaya on 04-04-2024 Calcium [Mass/Vol] 9.2 mg/dL 8.5-10.1 [facility] Serum or plasma creatinine m easurement (mass/volume)Ordered By: Linda Amaya on 04-04-2024 Creatinine [Mass/Vol] 0.61 mg/dL 0.55-1.02 [facility] Comment on above: The validity of the calculated GFR & GFRAA in patients over 70 years has not been determined. Clinical correlation is essential. Serum or plasma immunoglobul in kappa light chains measurement (mass/volume)Ordered By: Linda Amaya on 04-04-2024 Immunoglobulin light chains.kappa [Mass/Vol] 14.7 mg/L 3.3-19.4 [facility] Serum or plasma thyroid stim ulating hormone (TSH) measurement (units/volume)Ordered By: Linda Amaya on 04-04-2024 TSH Qn 0.735 uIU/mL 0.358-3.740 [facility] Serum or plasma urea nitroge n measurement (mass/volume)Ordered By: Linda Amaya on 04-04-2024 Urea nitrogen [Mass/Vol] 8 mg/dL 7-18 [facility] [place] antibody assayOrdered By: Linda Amaya on 04-04-2024 SM Antibody TNP [facility] Comment on above: Test not performed Sodium levelOrdered By: Mariel Amaya on 04-04-2024 Sodium [Moles/Vol] 134 mmol/L Low 136-145 [facility] TSH QnOrdered By: Linda ndiaye on 04-04-2024 Thyroid Stimulating Hormone (TSH) 0.735 uIU/mL 0.358-3.740 [facility] Thyroid Stim Hormone (TSH)on 04-04-2024 TSH 0.735 uIU/mL Normal 0.358-3.740 [facility] Comment on above: Performed By: #### L 3130.0010, L501.5200, L500.4050, L100.0100, L101.9900, L501.9520, L501.6710, L3100.5450 ####[facility] [address] [place], [place], [id number] Total proteinOrdered By: Deidra Amaya on 04-04-2024 Protein [Mass/Vol] 7.3 g/dL 6.4-8.2 [facility] White blood cell (WBC) count Ordered By: Linda Amaya on 04-04-2024 WBC (Bld) [#/Vol] 7.3 10*3/uL 4.4-11.0 [facility] Spine Cervical (Routine)on 0 03-30-2024 Spine Cervical (Routine) Normal [facility] .GFRon 03-25-2024 GFR Non- >60 [facility] MAIN Comment on above: Result Comment: GFR [...] #### V IDH, GFR, B12, BMP #### [place] [address] GFR >60 [facility] MAIN Comment on above: Result Comment: GFR [...] #### V IDH, GFR, B12, BMP #### [address] [address] B12on 03-25-2024 Cobalamin (Vitamin B12) [Mass/Vol] 348 pg/mL Normal 211-[address] [facility] MAIN Comment on above: Performed By: #### V IDH, GFR, B12, BMP #### [address] [address] BMPon 03-25-2024 BUN/Creatinine Ratio 23.1 ratio High 10.0-22.0 [facility] MAIN Comment on above: Performed By: #### V IDH, GFR, B12, BMP #### [address] [address] Calcium [Mass/Vol] 9.9 mg/dL Normal 8.7-10.4 [facility] MAIN Comment on above: Performed By: #### V IDH, GFR, B12, BMP #### [address] [address] Chloride [Moles/Vol] 98 mmol/L Normal 98-110 [facility] MAIN Comment on above: Performed By: #### V IDH, GFR, B12, BMP #### [address] [address] CO2 [Moles/Vol] 28 mmol/L Normal 22-[address] [facility] MAIN Comment on above: Performed By: #### V IDH, GFR, B12, BMP #### [address] [address] Creatinine [Mass/Vol] 0.52 mg/dL Normal 0.50-1.20 [facility] MAIN Comment on above: Result Comment: Test ing performed on [employer] analyzer using enzymatic creatinine methodology. Performed By: #### V IDH, GFR, B12, BMP #### [address] [address] Electrolyte Balance 6.0 mEq/L Normal 4.0-15.0 [facility] MAIN Comment on above: Performed By: #### V IDH, GFR, B12, BMP #### [address] [address] Glucose [Mass/Vol] 99 mg/dL Normal 82-115 [facility] MAIN Comment on above: Performed By: #### V IDH, GFR, B12, BMP #### [address] [address] Potassium [Moles/Vol] 4.6 mmol/L Normal 3.5-5.0 [facility] MAIN Comment on above: Performed By: #### V IDH, GFR, B12, BMP #### [address] [address] Sodium [Moles/Vol] 132 mmol/L Low 136-145 [facility] MAIN Comment on above: Performed By: #### V IDH, GFR, B12, BMP #### [address] [address] Urea nitrogen [Mass/Vol] 12.0 mg/dL Normal 8.0-22.[address] [facility] MAIN Comment on above: Performed By: #### V IDH, GFR, B12, BMP #### [address] [address] VIDHon 03-25-2024 Vit. D 25-Hydroxy 32.0 ng/mL Normal [facility] MAIN Comment on above: Result Comment: Inte rpretive Values Based on Total 25(OH)D: Severe Deficiency <20 ng/mL Mild to Moderate Deficiency 20-30 ng/mL Optimum Levels 30-100 ng/mL Toxicity Possible >100 ng/mL Performed By: #### V IDH, GFR, B12, BMP #### [place] [id number] Cerv Spine 4 or 5 Viewson Cerv Spine 4 or 5 Views Normal [facility] Orthopedic Visit Reporton Orthopedic Visit Report Normal [facility] Emergency Department Summary on 03-13-2024 Emergency Department Summary Normal [facility] CTA Neck W/WO Contraston CTA Neck W/WO Contrast Normal [facility] Urgent Care Visit Reporton 0 03-06-2024 Urgent Care Visit Report Normal [facility] CNPNon 03-04-2024 CNPN Telephone (KHANH) -------- KELLI MONROY ([id number]) 1950 F Date Time Provider Department 03/04/24 DEYANIRA MENDEZ During your visit today, we recorded the following information about you: Yelitza Bartlett LPN 03/04/2024 3:05 PM Signed Patient contacted office c/o excessive sweating to bilateral axilla and under both breasts. Patient states this has been ongoing for about 1 year. She saw her legal summer intern and was given prescription deodorant which has helped somewhat but she is still having issues and states still has sweating/dampness under both arms and breasts. Asking if radiation has caused this. Patient completed radiation in 2017. Requested appointment with Deyanira for this issue. I advised patient to contact her legal summer intern again. Informed patient I would ask Deyanira and rad onc about this as well. ALDA Guthrie Darby, APRN.UNAR[employer] SECURITY OFFICER 03/07/2024 8:23 AM Signed Please advise pt. to follow up with PCP/derm. Thank you. Deyanira Mendez APRN.UNARMED SECURITY OFFICER Charlotte Murillo LPN 03/07/2024 8:48 AM Signed [...] 5 mg/100 mL pgbk PREMIX piggyback Zoledronic Kdka-Uvsdlhed-Qkpdp Active 1 EACH .Route ONCE 100 February 07, 2021 11:08am onceinfuse over 20 minutes - acetaminophen (TYLENOL EX STR RAPID RELEASE ORAL) Take 1,000 mg by mouth twice daily as needed. 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 Baron Kevin PSS 02/22/2024 1:37 PM Signed CD READY FOR Y[facility] SALVAG[facility] AT [facility] [place] RADIOLOGY Allergies As of Date: 02/22/2024 Noted [...] 5 mg/100 mL pgbk PREMIX piggyback Zoledronic Vluv-Jkkocedh-Ztenl Active 1 EACH .Route ONCE 100 February 07, 2021 11:08am onceinfuse over 20 minutes - acetaminophen (TYLENOL EX STR RAPID RELEASE ORAL) Take 1,000 mg by mouth twice daily as needed. 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 [...] Status:Closed by MANDY FUENTES on 05/13/24 Normal [facility] Endocrinology Visit Reporton 02-19-2024 Endocrinology Visit Report Normal [facility] SCREENING W Phani 02-03 DESIREE SCREENING W MIC * * *Final Report* * * DATE OF EXAM: Feb 04 2024 11:01AM BRIGIDO 0582 - DESIREE SCREENING W MIC / PROCEDURE REASON: Encounter for screening mammogram for malignant neoplasm of breast * * * * Physician Interpretation * * * * RESULT: [facility] [address] [place] [place] [id number] #[id number] - DESIREE SCREENING W MIC HISTORY: Patient [...] Shahla Rivers M.D. Electronically signed on: 02/05/2024 System Dispatcher: BRANDEE Transcrisarbjit Date/Time: Feb 04 2024 10:46A Dictated by: SHAHLA RIVERS MD This examination was interpreted and the report reviewed and electronically signed by: SHAHLA RIVERS MD on Feb 05 2024 10:17AM EST [id number] Normal [facility] Thyroidon 01-14-2024 Thyroid Normal [facility] CNPNon 01-13-2024 CNPN Telephone (OBGYWM) -------- KELLI MONROY ([id number]) 1950 F Date Time Provider Department 01/13/24 [...] 12:07 PM Signed Patient notified. Transferred to [facility] to schedule mammogram. Erin Olguin RN Allergies As of Date: 01/13/2024 Noted Allergy Reaction DULOXETINE 09/14/2019 2 - Rash Date Reviewed: 09/08/2023 Reviewed by: Laura Powell MA - Fully Assessed Reason for Visit: Orders [681] Primary Visit Diagnosis:Encounter for screening mammogram for malignant neoplasm of breast [Z12.31] Order(s):DESIREE SCREENING W MIC [[id number]] Order #: [id number] FUTURE Prescriptions as of 01/13/2024 - omeprazole magnesium (PRILOSEC ORAL) Take by mouth. - COLLAGEN MISC 2 Tablespoonsful once daily. Unknown dosage - calcium/chondr/collag/gl ycosam (BEYOND BONE BROTH ORAL) Take by mouth. Bone Broth Collagen 1 Scoop per day (2 table spoons) - zoledronic acid (RECLAST) 5 mg/100 mL pgbk PREMIX piggyback Zoledronic Mcym-Exerjisv-Vtrgi Active 1 EACH .Route ONCE 100 February 07, 2021 11:08am onceinfuse over 20 minutes - acetaminophen (TYLENOL EX STR RAPID RELEASE ORAL) Take 1,000 mg by mouth twice daily as needed. 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 Comment on above: Performed By: #### V IDH, GFR, B12, BMP #### [address] [address] Eosinophil, Absolute 0.0 10 3/mcL Normal 0.0-0.7 [facility] Comment on above: Performed By: #### V IDH, GFR, B12, BMP #### [address] [address] Eosinophils/100 WBC (Bld) 0.7 % Normal 0.0-6.[address] [facility] Comment on above: Performed By: #### V IDH, GFR, B12, BMP #### [address] [address] Lymphocyte, Absolute 1.0 10 3/mcL Normal 0.9-4.3 [facility] Comment on above: Performed By: #### V IDH, GFR, B12, BMP #### [address] [address] Lymphocytes/100 WBC (Bld) 15.4 % Low 20.0-40.[address] [facility] Comment on above: Performed By: #### V IDH, GFR, B12, BMP #### [address] [address] Monocyte, Absolute 0.8 10 3/mcL Normal 0.1-1.4 [facility] Comment on above: Performed By: #### V IDH, GFR, B12, BMP #### [address] [address] Monocytes/100 WBC (Bld) 12.9 % Normal 2.0-13.[address] [facility] Comment on above: Performed By: #### V IDH, GFR, B12, BMP #### [address] [address] Neutrophils/100 WBC (Bld) 70.1 % Normal 50.0-75.[address] [facility] Comment on above: Performed By: #### V IDH, GFR, B12, BMP #### [address] [address] .GFRon 12-08-2023 GFR Non- >[address] [facility] Comment on above: Result Comment: GFR [...] #### V IDH, GFR, B12, BMP #### [address] [address] GFR >60 Normal [facility] Comment on above: Result Comment: GFR [...] #### V IDH, GFR, B12, BMP #### [address] [address] .NEUABSon 12-08-2023 Neutrophil, Absolute 4.6 10 3/mcL Normal 2.3-8.1 [facility] Comment on above: Performed By: #### V IDH, GFR, B12, BMP #### [place] [address] B12on 12-08-2023 Cobalamin (Vitamin B12) [Mass/Vol] 352 pg/mL Normal 211-[address] [facility] Comment on above: Performed By: #### V IDH, GFR, B12, BMP #### [place] [address] CBCon 12-08-2023 Erythrocyte distribution width (RBC) [Ratio] 13.4 % Normal 11.5-15.[address] [facility] Comment on above: Performed By: #### V IDH, GFR, B12, BMP #### [place] [address] Hematocrit (Bld) [Volume fraction] 36.7 % Normal 34.0-46.[address] [facility] Comment on above: Performed By: #### V IDH, GFR, B12, BMP #### [place] [address] Hgb 12.4 G/dL Normal 12.0-16.[address] [facility] Comment on above: Performed By: #### V IDH, GFR, B12, BMP #### [place] [address] MCH (RBC) [Entitic mass] 32.1 pg Normal 27.0-33.[address] [facility] Comment on above: Performed By: #### V IDH, GFR, B12, BMP #### [place] [address] MCHC 33.7 G/dL Normal 32.0-36.[address] [facility] Comment on above: Performed By: #### V IDH, GFR, B12, BMP #### [place] [address] MCV (RBC) [Entitic vol] 95.1 fL Normal 80.0-99.[address] [facility] Comment on above: Performed By: #### V IDH, GFR, B12, BMP #### [place] [address] Platelet 266 10 3/mcL Normal 150-[address] [facility] Comment on above: Performed By: #### V IDH, GFR, B12, BMP #### [place] [address] Platelet mean volume (Bld) [Entitic vol] 7.8 fL Normal 6.6-10.[address] [facility] Comment on above: Performed By: #### V IDH, GFR, B12, BMP #### [place] [address] RBC 3.86 10 6/mcL Low 4.10-5.[address] [facility] Comment on above: Performed By: #### V IDH, GFR, B12, BMP #### [place] [address] WBC 6.5 10 3/mcL Normal 4.5-10.[address] [facility] Comment on above: Performed By: #### V IDH, GFR, B12, BMP #### [place] [address] CMPon 12-08-2023 Albumin Level 3.6 G/dL Normal 3.2-4.[address] [facility] Comment on above: Performed By: #### V IDH, GFR, B12, BMP #### [place] [address] Albumin/Globulin [Mass ratio] 1.3 {ratio} Normal 0.9-1.[address] [facility] Comment on above: Performed By: #### V IDH, GFR, B12, BMP #### [place] [id number] ALP [Catalytic activity/Vol] 57 U/L Normal 38-[address] [facility] Comment on above: Performed By: #### V IDH, GFR, B12, BMP #### [place] [id number] ALT [Catalytic activity/Vol] 12 U/L Normal 10-[address] [facility] Comment on above: Performed By: #### V IDH, GFR, B12, BMP #### [place] [id number] AST [Catalytic activity/Vol] 19 U/L Normal 8-[address] [facility] Comment on above: Performed By: #### V IDH, GFR, B12, BMP #### [place] [address] Bili Total 0.60 mg/dL Normal 0.20-1.[address] [facility] Comment on above: Result Comment: Use of this assay is not recommended for patients undergoing treatment with eltrombopag due to the potential for falsely elevated results. Performed By: #### V IDH, GFR, B12, BMP #### [place] [address] BUN/Creatinine Ratio 15.3 ratio Normal 10.0-22.0 [facility] Comment on above: Performed By: #### V IDH, GFR, B12, BMP #### [place] [id number] Calcium [Mass/Vol] 9.2 mg/dL Normal 8.7-10.4 [facility] Comment on above: Performed By: #### V IDH, GFR, B12, BMP #### [place] [id number] Chloride [Moles/Vol] 104 mmol/L Normal 98-110 [facility] Comment on above: Performed By: #### V IDH, GFR, B12, BMP #### [place] [id number] CO2 [Moles/Vol] 27 mmol/L Normal 22-[address] [facility] Comment on above: Performed By: #### V IDH, GFR, B12, BMP #### [address] [address] Creatinine [Mass/Vol] 0.59 mg/dL Normal 0.50-1.20 [facility] Comment on above: Result Comment: Test ing performed on [employer] analyzer using enzymatic creatinine methodology. Performed By: #### V IDH, GFR, B12, BMP #### [address] [address] Electrolyte Balance 4.0 mEq/L Normal 4.0-15.0 [facility] Comment on above: Performed By: #### V IDH, GFR, B12, BMP #### [address] [address] Globulin 2.8 G/dL Normal 1.5-3.[address] [facility] Comment on above: Performed By: #### V IDH, GFR, B12, BMP #### [address] [address] Glucose [Mass/Vol] 90 mg/dL Normal 82-115 [facility] Comment on above: Performed By: #### V IDH, GFR, B12, BMP #### [address] [address] Potassium [Moles/Vol] 4.5 mmol/L Normal 3.5-5.0 [facility] Comment on above: Performed By: #### V IDH, GFR, B12, BMP #### [address] [address] Sodium [Moles/Vol] 135 mmol/L Low 136-145 [facility] Comment on above: Performed By: #### V IDH, GFR, B12, BMP #### [place] [id number] Total Protein 6.4 G/dL Normal 5.7-8.[address] [facility] Comment on above: Result Comment: No te - New Reference Range in effect 19 Performed By: #### V IDH, GFR, B12, BMP #### [address] [address] Urea nitrogen [Mass/Vol] 9.0 mg/dL Normal 8.0-22.[address] [facility] Comment on above: Performed By: #### V IDH, GFR, B12, BMP #### [address] [address] LIPIDon 12-08-2023 Cholesterol [Mass/Vol] 216 mg/dL High 50-[address] [facility] Comment on above: Result Comment: Chol esterol Reference Interval: Less than 200 Desirable 200-239 Borderline high risk 240 and above High risk Performed By: #### V IDH, GFR, B12, BMP #### [place] [address] Cholesterol in HDL [Mass/Vol] 85 mg/dL High 40-[address] [facility] Comment on above: Performed By: #### V IDH, GFR, B12, BMP #### [place] [address] Cholesterol in LDL [Mass/Vol] 116 mg/dL Normal 0-[address] [facility] Comment on above: Performed By: #### V IDH, GFR, B12, BMP #### [place] [address] Triglyceride [Mass/Vol] 76 mg/dL Normal 3-[address] [facility] Comment on above: Performed By: #### V IDH, GFR, B12, BMP #### [place] [address] TSHon 12-08-2023 TSH 0.849 mIU/mL Normal 0.550-4.[address] [facility] Comment on above: Result Comment: No te - New Reference Range in effect 19 Performed By: #### V IDH, GFR, B12, BMP #### [place] [id number] VIDHon 12-08-2023 Vit. D 25-Hydroxy 28.3 ng/mL Normal [facility] Comment on above: Result Comment: Inte rpretive Values Based on Total 25(OH)D: Severe Deficiency <20 ng/mL Mild to Moderate Deficiency 20-30 ng/mL Optimum Levels 30-100 ng/mL Toxicity Possible >100 ng/mL Performed By: #### V IDH, GFR, B12, BMP #### [place] [address] UA DIP, URINE (POC)on 2023 BILIRUBIN UA (POCT) Negative Negative [facility] CLARITY UA (POCT) Clear [facility] COLOR UA (POCT) Yellow [facility] GLUCOSE UA (POCT) Negative Negative mg/dL [facility] Hemoglobin Ql (U) Negative Negative [facility] Interpretation and review of laboratory results Abnormal [facility] KETONE UA (POCT) Negative Negative mg/dL [facility] LEUKOCYTES UA (POCT) Trace Abnormal Negative [facility] NITRITE UA (POCT) Negative Negative [facility] PH UA (POCT) 6.0 4.5 - 8.0 [facility] Protein Ql (U) Negative Negative mg/dL [facility] SPECIFIC GRAVITY UA (POCT) <=1.005 Abnormal 1.005 - 1.030 [facility] UROBILINOGEN UA (POCT) 0.2 Normal E.U./dL [facility] Location:[facility], [address] , [place], [place], [id number] [place] [address] POINT OF CARE [facility] BACTERIAL VAGINOSIS NAATon 0 06-11-2023 Lactobacillus crispatus+gasseri+kendra senii + Gardnerella vaginalis + Atopobium vaginae rRNA JONATHAN+probe Ql (Vag fld) Negative Negative for bacterial vaginosis [facility] ANAID/TRICHOMONAS NAATon 0 06-11-2023 C. glabrata RNA JONATHAN+probe Ql (Vag fld) Negative Negative for Anaid glabrata [facility] Anaid sp DNA JONATHAN+probe Ql (Vag fld) Negative Negative for Anaid species [facility] T. vaginalis DNA JONATHAN+probe Ql (Unsp spec) Negative Negative for Trichomonas vaginalis by amplification [facility] T4 FREE/FREE THYROXINEon Free T4 [Mass/Vol] 1.3 ng/dL 0.9 - 1.7 ng/dL [facility] THYROID STIMULATING HORMONEo n 06-11-2023 TSH Qn 1.850 m[IU]/L 0.270 - 4.200 mIU/L [facility] UA DIP, URINE (POC)on 2023 BILIRUBIN UA (POCT) Negative Negative [facility] CLARITY UA (POCT) Clear [facility] COLOR UA (POCT) Light yellow [facility] GLUCOSE UA (POCT) Negative Negative mg/dL [facility] Hemoglobin Ql (U) Negative Negative [facility] KETONE UA (POCT) Negative Negative mg/dL [facility] LEUKOCYTES UA (POCT) Trace Abnormal Negative [facility] NITRITE UA (POCT) Negative Negative [facility] PH UA (POCT) 6.0 4.5 - 8.0 [facility] Protein Ql (U) Negative Negative mg/dL [facility] SPECIFIC GRAVITY UA (POCT) 1.010 1.005 - 1.030 [facility] UROBILINOGEN UA (POCT) 0.2 E.U./dL Normal E.U./dL [facility] No Panel Informationon 03-09 Influenza Types A,B Rapid (Clinic) Negative [facility] POC SARS CoV-2 Antigen Negative [facility] Laboratory - Chemistry and C hemistry - challengeOrdered By: Cade Monroy on 02-24-2023 Free T4 [Mass/Vol] 1.00 ng/dL 0.76-1.46 [facility] No Panel InformationOrdered By: Cade Monroy on 02-24-2023 Follicle Stimulating Hormone 76.5 mIU/mL [facility] Comment on above: NORMAL REFERENCE RAN [facility] FEMALE FOLLICULAR 2.3 - 12.6 mIU/mL MID-CYCLE PEAK 5.2 - 17.5 mIU/mL LUTEAL 1.7 - 12.9 mIU/mL POST-MENOPAUSAL ON MHT 5.9 - 72.8 mIU/mL NOT ON MHT 12.7 - 132.2 mlU/mL MALE 0.7 - 10.8 mIU/mL Luteinizing Hormone 18.4 mIU/mL [facility] Comment on above: NORMAL REFERENCE RAN [facility] FEMALE FOLLICULAR 1.9 - 26.2 mIU/mL MID-CYCLE PEAK 22.8 - 76.1 mIU/mL LUTEAL 0.6 - 16.6 mIU/mL POST-MENOPAUSAL ON MHT 1.1 - 52.4 mIU/mL NOT ON MHT 8.6 - 61.8 mIU/mL MALE 1.2 - 10.6 mIU/mL Parathyroid Hormone (Intact) 60.9 pg/mL 18.4-80.1 [facility] Thyroid Stimulating Hormone (TSH) 0.91 uIU/mL 0.358-3.74 [facility] Serum or plasma cortisol luis armando surement (mass/volume)Ordered By: Cade Monroy on 02-24-2023 Cortisol [Mass/Vol] 9.50 ug/dL 3.44-22.45 [facility] Comment on above: Adult (AM) 5.27 - 22 .45 ug/dL Adult (PM) 3.44 - 16.76 ug/dLPlease note revised CORTISOL reference range effective 2019. PANCEFon 07-21-2022 Panc Elastase, Fecal >800 Normal >=100 [facility] ([place]) Comment on above: Result Comment: REFE RENCE INTERVAL: Pancreatic Elastase Fecal by Immunoassay Less than 100 ug/g............Severe insufficiency 100 - 199 ug/g................Moderate insufficiency 200 ug/g or greater...........Normal INTERPRETIVE INFORMATION: Pancreatic Elastase Fecal by Immunoassay Reference intervals do not apply for infants less than one month old. Performed by [employer], [address] [place] [id number] [email or web address], Catarino Palomino MD, PHD, Lab. Director Performed By: #### P ANCEF #### [address] [address] FATFon 07-19-2022 Fecal Fat Qnt See Comments Normal [facility] ([place]) Comment on above: Result Comment: Comp lete reference lab report scanned to EMR. Performed By: #### F ATF #### [address] [address] Urinalysis complete panel (U )on 07-01-2022 Bilirubin Ql (U) Negative Negative [facility] Clarity (Unsp spec) Clear [facility] Color (U) Light Yellow [facility] Epithelial cells LM.HPF (Urine sed) [#/Area] Few [facility] Glucose Test strip (U) [Mass/Vol] Negative Trace, Negative [facility] Hemoglobin Ql (U) Negative Negative, Trace [facility] Ketones Ql (U) Negative Trace, Negative [facility] Leukocyte esterase Test strip Ql (U) 75 Gissel/uL Abnormal Negative, 25 Gissel/uL [facility] Nitrite Ql (U) Negative Negative [facility] pH (U) 6.5 [pH] 5.0 - 8.0 [facility] Protein (U) [Mass/Vol] Negative Trace, Negative [facility] RBC LM.HPF (Urine sed) [#/Area] 0-3 /HPF 0-3 /HPF [facility] Specific gravity (U) [Rel density] 1.010 1.005 - 1.030 [facility] Urobilinogen Ql (U) Negative Negative [facility] WBC LM.HPF (Urine sed) [#/Area] 0-5 /HPF 0-5 /HPF [facility] UA DIP, URINE (POC)on 2022 BILIRUBIN UA (POCT) Negative Negative [facility] CLARITY UA (POCT) Clear [facility] COLOR UA (POCT) Yellow [facility] GLUCOSE UA (POCT) Negative Negative mg/dL [facility] HEMOGLOBIN/BLOOD UA (POCT) Trace-intact Abnormal Negative [facility] KETONE UA (POCT) Negative Negative mg/dL [facility] LEUKOCYTES UA (POCT) Small Abnormal Negative [facility] NITRITE UA (POCT) Negative Negative [facility] PH UA (POCT) 6.0 4.5 - 8.0 [facility] Protein Ql (U) Negative Negative mg/dL [facility] SPECIFIC GRAVITY UA (POCT) 1.010 1.005 - 1.030 [facility] UROBILINOGEN UA (POCT) 0.2 E.U./dL Normal E.U./dL [facility] NM BONE WHOLE BODYon 023 [facility] ACTIVATED PTTon 04-01-2022 aPTT Coag (PPP) [Time] 26.9 s 23.0 - 32.4 sec [facility] CBC W Auto Differential pane l (Bld)on 04-01-2022 Basophils (Bld) [#/Vol] 0.03 10*3/uL <0.11 k/uL [facility] Basophils/100 WBC (Bld) 0.4 % [facility] Differential cell count method Nom (Bld) Auto [facility] Eosinophils (Bld) [#/Vol] 0.05 10*3/uL <0.46 k/uL [facility] Eosinophils/100 WBC (Bld) 0.7 % [facility] Erythrocyte distribution width (RBC) [Ratio] 12.3 % 11.5 - 15.0 % [facility] Hematocrit (Bld) [Volume fraction] 36.5 % 36.0 - 46.0 % [facility] Hemoglobin (Bld) [Mass/Vol] 12.4 g/dL 11.5 - 15.5 g/dL [facility] Immature granulocytes (Bld) [#/Vol] <0.10 k/uL [facility] Immature granulocytes/100 WBC (Bld) 0.3 % [facility] Lymphocytes (Bld) [#/Vol] 1.26 10*3/uL 1.00 - 4.00 k/uL [facility] Lymphocytes/100 WBC (Bld) 18.2 % [facility] MCH (RBC) [Entitic mass] 31.6 pg 26.0 - 34.0 pg [facility] MCHC (RBC) [Mass/Vol] 34.0 g/dL 30.5 - 36.0 g/dL [facility] MCV (RBC) [Entitic vol] 93.1 fL 80.0 - 100.0 fL [facility] Monocytes (Bld) [#/Vol] 0.83 10*3/uL <0.87 k/uL [facility] Monocytes/100 WBC (Bld) 12.0 % [facility] Neutrophils (Bld) [#/Vol] 4.73 10*3/uL 1.45 - 7.50 k/uL [facility] Neutrophils/100 WBC (Bld) 68.4 % [facility] Nucleated RBC (Bld) [#/Vol] <0.01 k/uL [facility] Nucleated RBC/100 WBC (Bld) [Ratio] 0.0 /100 WBC [facility] Platelet mean volume (Bld) [Entitic vol] 8.6 fL Low 9.0 - 12.7 fL [facility] Platelets (Bld) [#/Vol] 293 10*3/uL 150 - 400 k/uL [facility] RBC (Bld) [#/Vol] 3.92 10*6/uL 3.90 - 5.2 0 m/uL [facility] WBC (Bld) [#/Vol] 6.92 10*3/uL 3.70 - 11. 00 k/uL [facility] PT panel Coag (PPP)on 2022 INR Coag (PPP) [Relative time] 0.9 {INR} 0.9 - 1.3 [facility] PT Coag (PPP) [Time] 9.1 s <13.1 sec [facility] LABORATORYOrdered By: Diane Prince on 03-03-2022 Hemoglobin.gastrointe stinal Ql (Stl) Negative (03/03/22 8:50 AM) Invalid Interpretation Code Negative AO Rapid Testing SS CT ABD/PEL W IVCONon 023 [facility] CT CHEST W IVCONon 3 [facility] Basophil percentageon 2021 Bilirubin [Mass/Vol] 0.50 mg/dL 0.20-1.00 [facility] Work Phone: Comment on above: For patients on eltr ombopag therapy, use of Dimension [place] TBIL is not recommended. Chloride [Moles/Vol] 100 mmol/L 98-107 [facility] Work Phone: Glucose [Mass/Vol] 95 mg/dL 74-106 [facility] Work Phone: Potassium [Moles/Vol] 4.4 mmol/L 3.5-5.1 [facility] Work Phone: Protein [Mass/Vol] 7.6 g/dL 6.4-8.2 [facility] Work Phone: Sodium [Moles/Vol] 135 mmol/L 136-145 [facility] Work Phone: Laboratory - Chemistry and C hemistry - challengeon 02-06-2022 ALP [Catalytic activity/Vol] 74 U/L 45-117 [facility] Work Phone: ALT [Catalytic activity/Vol] 32 U/L 13-56 [facility] Work Phone: CO2 [Moles/Vol] 31.0 mmol/L 21.0-32.0 [facility] Work Phone: Globulin (S) [Mass/Vol] 3.6 g/dL 2.2-4.2 [facility] Work Phone: Urea nitrogen/Creatinine [Mass ratio] 15.3 mg/mg 10-20 [facility] Work Phone: No Panel Informationon 02-06 Estimated GFR (MDRD) Amer 128 mL/min >60 [facility] Work Phone: Comment on above: GFR Calc Estimated GFR (MDRD) Non-Af Amer 106 mL/min >60 [facility] Work Phone: Comment on above: Non- GFR Calc Parathyroid Hormone (Intact) 68.7 pg/mL 18.4-80.1 [facility] Work Phone: Vitamin D 25-Hydroxy 36.4 ng/mL [facility] Work Phone: Comment on above: Vitamin D 25(OH) Sta tus Range Deficiency <20 ng/mL (50nmol/L) Insufficiency 20 - 30 ng/mL (50 - 75 nmol/L) Sufficiency 30 - 100 ng/mL (75 - 250 nmol/L) Toxicity >100 ng/mL (>250 nmol/L) Serum or plasma albumin anjel urement (mass/volume)on 02-06-2022 Albumin [Mass/Vol] 4.0 g/dL 3.2-5.0 [facility] Work Phone: Serum or plasma albumin/glob ulin mass ratioon 02-06-2022 Albumin/Globulin [Mass ratio] 1.1 {ratio} 0.9-2.4 [facility] Work Phone: Serum or plasma calcium anjel urement (mass/volume)on 02-06-2022 Calcium [Mass/Vol] 9.3 mg/dL 8.5-10.1 [facility] Work Phone: Serum or plasma creatinine m easurement (mass/volume)on 02-06-2022 Creatinine [Mass/Vol] 0.59 mg/dL 0.55-1.02 [facility] Work Phone: Comment on above: The validity of the calculated GFR & GFRAA in patients over 70 years has not been determined. Clinical correlation is essential. Serum or plasma urea nitroge n measurement (mass/volume)on 02-06-2022 Urea nitrogen [Mass/Vol] 9 mg/dL - [facility] Work Phone: Thin prep Papanicolaou smear with manual screeningon 02-06-2022 Thin prep Papanicolaou smear with manual screening 26 U/L 15- [facility] Work Phone: Thin prep Papanicolaou smear with manual screening 4 07-07 [facility] Work Phone: DESIREE SCREENING W TOMOon 01-31 [facility] US THYROID/PARATHYROIDon [facility] UA DIP, URINE (POC)on 2021 BILIRUBIN UA (POCT) Negative Negative [facility] CLARITY UA (POCT) [facility] COLOR UA (POCT) Yellow [facility] GLUCOSE UA (POCT) Negative Negative mg/dL [facility] HEMOGLOBIN/BLOOD UA (POCT) Moderate Abnormal Negative [facility] KETONE UA (POCT) Trace Negative mg/dL [facility] LEUKOCYTES UA (POCT) Moderate Abnormal Negative [facility] NITRITE UA (POCT) Negative Negative [facility] PH UA (POCT) 5.5 4.5 - 8.0 [facility] Protein Ql (U) 100 mg/dL Abnormal Negative mg/dL [facility] SPECIFIC GRAVITY UA (POCT) 1.025 1.005 - 1.030 [facility] UROBILINOGEN UA (POCT) 0.2 E.U./dL Normal E.U./dL [facility] CT CHEST W IVCONon 2 [facility] Absolute lymphocyte counton 06-10-2021 Lymphocytes Auto (Unsp spec) [#/Vol] 1.34 10*3/uL 0.83-4.51 [facility] Work Phone: Basophil percentageon 2021 Basophil percentage 0 SEEN /hpf [facility] Work Phone: Basophils/100 WBC (Bld) 0.5 % 0-1 [facility] Work Phone: [phone] Bilirubin [Mass/Vol] 0.60 mg/dL 0.20-1.00 [facility] Work Phone: [phone] Comment on above: For patients on eltr ombopag therapy, use of Dimension [place] TBIL is not recommended. Chloride [Moles/Vol] 101 mmol/L 98-107 [facility] Work Phone: Eosinophils/100 WBC (Bld) 0.6 % 0-5 [facility] Work Phone: Glucose [Mass/Vol] 99 mg/dL 74-106 [facility] Work Phone: [phone] Neutrophils (Bld) [#/Vol] 5.8 10*3/uL 2.0-7.7 [facility] Work Phone: Neutrophils/100 WBC (Bld) 72.3 % 47-70 [facility] Work Phone: [phone] Potassium [Moles/Vol] 3.8 mmol/L 3.5-5.1 [facility] Work Phone: Protein [Mass/Vol] 6.9 g/dL 6.4-8.2 [facility] Work Phone: Sodium [Moles/Vol] 134 mmol/L 136-145 [facility] Work Phone: [phone] WBC (Bld) [#/Vol] 8.1 10*3/uL 4.4-11.0 [facility] Work Phone: Bilirubin Test strip Ql (U)o n 06-10-2021 Bilirubin Ql (U) Negative Negative [facility] Work Phone: Blood erythrocytes count (nu mber/volume)on 06-10-2021 RBC (Bld) [#/Vol] 3.86 10*6/uL 4.2-5.4 [facility] Work Phone: Blood hemoglobin measurement (mass/volume)on 06-10-2021 Hemoglobin (Bld) [Mass/Vol] 12.4 g/dL 12.0-15.0 [facility] Work Phone: Blood lymphocytes/100 leukoc yteson 06-10-2021 Lymphocytes/100 WBC (Bld) 16.6 % 19-41 [facility] Work Phone: [phone] Blood monocytes/100 leukocyt eson 06-10-2021 Monocytes/100 WBC (Bld) 9.4 % 0-10 [facility] Work Phone: Blood platelet mean volumeon 06-10-2021 Platelet mean volume (Bld) [Entitic vol] 8.4 fL 6.2-12.0 [facility] Work Phone: [phone] Determination of erythrocyte mean corpuscular volume (MCV)on 06-10-2021 MCV (RBC) [Entitic vol] 93.0 fL 81-99 [facility] Work Phone: Hematocrit Auto (Bld) [Volum e fraction]on 06-10-2021 Hematocrit (Bld) [Volume fraction] 35.9 % 37-47 [facility] Work Phone: Ketones Test strip Ql (U)on 06-10-2021 Ketones Ql (U) Negative Negative [facility] Work Phone: Laboratory - Chemistry and C hemistry - challengeon 06-10-2021 ALP [Catalytic activity/Vol] 48 U/L 45-117 [facility] Work Phone: ALT [Catalytic activity/Vol] 17 U/L 13-56 [facility] Work Phone: CO2 [Moles/Vol] 28.0 mmol/L 21.0-32.0 [facility] Work Phone: Globulin (S) [Mass/Vol] 3.2 g/dL 2.2-4.2 [facility] Work Phone: Urea nitrogen/Creatinine [Mass ratio] 12.3 mg/mg 10-20 [facility] Work Phone: Laboratory - Hematology and Cell countson 06-10-2021 Erythrocyte distribution width (RBC) [Entitic vol] 41.5 fL 35.1-43.9 [facility] Work Phone: Erythrocyte distribution width (RBC) [Ratio] 12.1 % 11.6-14.6 [facility] Work Phone: Immature granulocytes/100 WBC (Bld) 0.600 % 0.0-0.9 [facility] Work Phone: Comment on above: IG% - Immature Granu locytes (promyelocytes, myelocytes and metamyelocytes) > 1% indicates that a LEFT SHIFT is Present. MCH (RBC) [Entitic mass] 32.1 pg 27.0-32.0 [facility] Work Phone: Nucleated RBC/100 WBC (Bld) [Ratio] 0 % 0-5 [facility] Work Phone: MCHC Auto (RBC) [Mass/Vol]on 06-10-2021 MCHC (RBC) [Mass/Vol] 34.5 g/dL 32-36 [facility] Work Phone: Mucus LM Ql (Urine sed)on Mucus Ql (Urine sed) 0 SEEN /hpf [facility] Work Phone: Nitrite Test strip Ql (U)on 06-10-2021 Nitrite Ql (U) Negative Negative [facility] Work Phone: No Panel Informationon 06-10 Estimated Creatinine Clearance Calc 43.27 ml/min [facility] Work Phone: Estimated GFR (MDRD) Amer 134 mL/min >60 [facility] Work Phone: Comment on above: GFR Calc Estimated GFR (MDRD) Non-Af Amer 111 mL/min >60 [facility] Work Phone: Comment on above: Non- GFR Calc Troponin I High Sensitivity 5 pg/mL 3.0-54.0 [facility] Work Phone: Comment on above: Please Note: New Stephanie t Units and Gender Specific Reference Ranges. For more information see Policy Stat Procedure [place] High Sensitivity Troponin (TNIH) and attachments. Platelets bldon 06-10-2021 Platelets (Bld) [#/Vol] 297 10*3/uL 150-450 [facility] Work Phone: Protein Test strip Ql (U)on 06-10-2021 Protein Ql (U) Negative Negative [facility] Work Phone: Serum or plasma albumin anjel urement (mass/volume)on 06-10-2021 Albumin [Mass/Vol] 3.7 g/dL 3.2-5.0 [facility] Work Phone: Serum or plasma albumin/glob ulin mass ratioon 06-10-2021 Albumin/Globulin [Mass ratio] 1.2 {ratio} 0.9-2.4 [facility] Work Phone: Serum or plasma calcium anjel urement (mass/volume)on 06-10-2021 Calcium [Mass/Vol] 9.0 mg/dL 8.5-10.1 [facility] Work Phone: Serum or plasma creatinine m easurement (mass/volume)on 06-10-2021 Creatinine [Mass/Vol] 0.57 mg/dL 0.55-1.02 [facility] Work Phone: Comment on above: The validity of the calculated GFR & GFRAA in patients over 70 years has not been determined. Clinical correlation is essential. Serum or plasma urea nitroge n measurement (mass/volume)on 06-10-2021 Urea nitrogen [Mass/Vol] 7 mg/dL 7-18 [facility] Work Phone: Squamous epithelial cells de tection in urine sediment by light microscopyon 06-10-2021 Epithelial cells.squamous LM Ql (Urine sed) 0-5 SEEN /hpf [facility] Work Phone: Thin prep Papanicolaou smear with manual screeningon 06-10-2021 Thin prep Papanicolaou smear with manual screening 12 U/L 15-37 [facility] Work Phone: Thin prep Papanicolaou smear with manual screening 5 5-15 [facility] Work Phone: Urine blood detectionon 05-24 RBC Ql (U) Negative Negative [facility] Work Phone: RBC Ql (U) 0 SEEN /hpf [facility] Work Phone: Urine clarityon 06-10-2021 Clarity (U) Clear Clear [facility] Work Phone: Urine color determinationon 06-10-2021 Color (U) Yellow Yellow [facility] Work Phone: Urine glucose detectionon Glucose Ql (U) Normal mg/dl Normal [facility] Work Phone: Urine leukocyte esterase det ection by dipstickon 06-10-2021 Leukocyte esterase Test strip Ql (U) 25 /ul Negative [facility] Work Phone: Urine pHon 06-10-2021 pH (U) 7.0 [pH] [facility] Work Phone: Urine sediment bacteria coun t by microscopy (number/high power field)on 06-10-2021 Bacteria LM.HPF (Urine sed) [#/Area] 0 /[HPF] None Seen [facility] Work Phone: Urine specific gravity measu rementon 06-10-2021 Specific gravity (U) [Rel density] 1.010 [facility] Work Phone: Urobilinogen Auto test strip Ql (U)on 06-10-2021 Urobilinogen Ql (U) Normal mg/dl Normal [facility] Work Phone: Laboratory - Chemistry and C hemistry - challengeon 05-15-2021 Cobalamin (Vitamin B12) [Mass/Vol] 1069 pg/mL 211-911 [facility] Work Phone: Magnesium [Mass/Vol] 2.7 mg/dL 1.6-2.6 [facility] Work Phone: No Panel Informationon 05-15 Vitamin D 25-Hydroxy 55.2 ng/mL [facility] Work Phone: Comment on above: Vitamin D 25(OH) Sta tus Range Deficiency <20 ng/mL (50nmol/L) Insufficiency 20 - 30 ng/mL (50 - 75 nmol/L) Sufficiency 30 - 100 ng/mL (75 - 250 nmol/L) Toxicity >100 ng/mL (>250 nmol/L) Laboratory - Chemistry and C hemistry - challengeon 04-01-2021 Free T4 [Mass/Vol] 1.03 ng/dL 0.76-1.46 [facility] Work Phone: No Panel Informationon 04-01 Ionized Calcium 5.0 mg/dL [facility] Work Phone: Parathyroid Hormone (Intact) 83.8 pg/mL 18.4-80.1 [facility] Work Phone: Thyroid Stimulating Hormone (TSH) 1.04 uIU/mL 0.358-3.74 [facility] Work Phone: Total Triiodothyronine 1.14 ng/mL 0.6-1.81 [facility] Work Phone: Serum or plasma calcium anjel urement (mass/volume)on 04-01-2021 Calcium [Mass/Vol] 8.8 mg/dL 8.5-10.1 [facility] Work Phone: Serum or plasma thyroperoxid ase antibody assay (units/volume)on 04-01-2021 TPO Ab Qn [IU]/mL [facility] Work Phone: Comment on above: Performed at: [address] [id number] Director: Dannie Meza PhD, Phone: [phone] B[employer] [facility] Vital Signs Date Time Vital Sign Value Performing Clinician Facility 11-21-2024 10:30-0400 Body temperature 98.7 [degF] Dr. Angel Fuller MD Work Phone: 7(532)393-073571 [place] [address] 11-21-2024 10:30-0400 Diastolic blood pressure 78 mm[Hg] Dr. Angel Fuller MD Work Phone: 8(901)798-581071 [place] [address] 11-21-2024 10:30-0400 Heart rate 78 /min Dr. Angel Fuller MD Work Phone: 4(876)432-605691 [place] [address] 11-21-2024 10:30-0400 Respiratory rate 16 /min Dr. Angel Fuller MD Work Phone: 5(877)670-059591 [place] [address] 11-21-2024 10:30-0400 SaO2% (BldA) [Mass fraction] 99 % Dr. Angel Fuller MD Work Phone: 4(729)887-956391 [place] [address] 11-21-2024 10:30-0400 Systolic blood pressure 134 mm[Hg] Dr. Angel Fuller MD Work Phone: 2(697)871-984091 [place] [address] 11-21-2024 08:23-0400 Body mass index (BMI) [Ratio] 34.4 kg/m2 Dr. Angel Fuller MD Work Phone: 3(360)719-738891 [place] [address] 11-21-2024 08:23-0400 Body weight 62.[address] Angel Fuller MD Work Phone: 5(788)626-334491 [place] [address] 11-21-2024 08:14-0400 Body height 134.[address] Angel Fuller MD Work Phone: 7(523)356-337091 [place] [address] 11-17-2024 09:21-0400 Body mass index (BMI) [Ratio] 25.7 kg/m2 Dr. Angel Fuller MD Work Phone: 4(179)923-775191 [place] [address] 11-17-2024 09:21-0400 Body temperature 97.8 [degF] Dr. Angel Fuller MD Work Phone: 3(165)193-779691 [place] [address] 11-17-2024 09:21-0400 Body weight 67.[address] Angel Fuller MD Work Phone: 6(935)681-840891 [place] [address] 11-17-2024 09:21-0400 Diastolic blood pressure 70 mm[Hg] Dr. Angel Fuller MD Work Phone: [facility] 11-17-2024 09:21-0400 Heart rate 75 /min Dr. Angel Fuller MD Work Phone: 1(383)703-391171 [place] [address] 11-17-2024 09:21-0400 Respiratory rate 17 /min Dr. Angel Fuller MD Work Phone: 2(207)356-959991 [place] [address] 11-17-2024 09:21-0400 SaO2% (BldA) [Mass fraction] 98 % Dr. Angel Fuller MD Work Phone: 1(246)599-115171 [place] [address] 11-17-2024 09:21-0400 Systolic blood pressure 148 mm[Hg] Dr. Angel Fuller MD Work Phone: 7(843)481-752591 [place] [address] 11-10-2024 13:02-0400 Body height 162.[address] Angel Fuller MD Work Phone: 9(285)545-905791 [place] [address] 11-10-2024 13:02-0400 Body mass index (BMI) [Ratio] 25.5 kg/m2 Dr. Angel Fuller MD Work Phone: 3(558)104-553391 [place] [address] 11-10-2024 13:02-0400 Body temperature 97.8 [degF] Dr. Angel Fuller MD Work Phone: 4(717)010-068791 [place] [address] 11-10-2024 13:02-0400 Body weight 67.[address] Angel Fuller MD Work Phone: 7(806)761-948591 [place] [address] 11-10-2024 13:02-0400 Diastolic blood pressure 78 mm[Hg] Dr. Angel Fuller MD Work Phone: 5(034)107-842091 [place] [address] 11-10-2024 13:02-0400 Heart rate 75 /min Dr. Angel Fuller MD Work Phone: 8(638)579-841971 [place] [address] 11-10-2024 13:02-0400 Respiratory rate 15 /min Dr. Agnel Fuller MD Work Phone: 9(120)766-680091 [place] [address] 11-10-2024 13:02-0400 SaO2% (BldA) [Mass fraction] 99 % Dr. Angel Fuller MD Work Phone: 9(703)838-690291 [place] [address] 11-10-2024 13:02-0400 Systolic blood pressure 133 mm[Hg] Dr. Angel Fuller MD Work Phone: 9(078)198-799891 [place] [address] 10-17-2024 08:24-0400 Body height 162.[address] Angel Fuller MD Work Phone: 5(683)991-824291 [place] [address] 10-17-2024 08:24-0400 Body mass index (BMI) [Ratio] 25.7 kg/m2 Dr. Angel Fuller MD Work Phone: 2(905)993-516591 [place] [address] 10-17-2024 08:24-0400 Body temperature 98 [degF] Dr. Angel Fuller MD Work Phone: 1(047)534-162091 [place] [address] 10-17-2024 08:24-0400 Body weight 68.[address] Angel Fuller MD Work Phone: 6(954)516-346091 [place] [address] 10-17-2024 08:24-0400 Diastolic blood pressure 78 mm[Hg] Dr. Angel Fuller MD Work Phone: 7(564)720-008391 [place] [address] 10-17-2024 08:24-0400 Heart rate 64 /min Dr. Angel Fuller MD Work Phone: 1(825)595-931991 [place] [address] 10-17-2024 08:24-0400 Respiratory rate 16 /min Dr. Angel Fuller MD Work Phone: 2(448)629-559391 [place] [address] 10-17-2024 08:24-0400 SaO2% (BldA) [Mass fraction] 98 % Dr. Angel Fuller MD Work Phone: 0(316)981-070091 [place] [address] 10-17-2024 08:24-0400 Systolic blood pressure 155 mm[Hg] Dr. Angel Fuller MD Work Phone: 4(661)100-045591 [place] [address] 09-15-2024 10:21-0400 Body mass index (BMI) [Ratio] 26.2 kg/m2 Dr. Angel Fuller MD Work Phone: 4(338)450-495291 [place] [address] 09-15-2024 10:21-0400 Body temperature 98 [degF] Dr. Angel Fuller MD Work Phone: 6(960)008-355491 [place] [address] 09-15-2024 10:21-0400 Body weight 69.[address] Angel Fuller MD Work Phone: 8(946)846-938091 [place] [address] 09-15-2024 10:21-0400 Diastolic blood pressure 84 mm[Hg] Dr. Angel Fuller MD Work Phone: 4(101)156-749591 [place] [address] 09-15-2024 10:21-0400 Heart rate 79 /min Dr. Angel Fuller MD Work Phone: 1(865)901-172691 [place] [address] 09-15-2024 10:21-0400 Respiratory rate 17 /min Dr. Angel Fuller MD Work Phone: 5(435)575-107491 [place] [address] 09-15-2024 10:21-0400 SaO2% (BldA) [Mass fraction] 98 % Dr. Agnel Fuller MD Work Phone: 3(841)814-226191 [place] [address] 09-15-2024 10:21-0400 Systolic blood pressure 148 mm[Hg] Dr. Angel Fuller MD Work Phone: 1(174)046-151991 [place] [address] 09-07-2024 08:11-0400 Body height 162.[address] Angel Fuller MD Work Phone: 7(727)722-936291 [place] [address] 09-07-2024 08:11-0400 Body mass index (BMI) [Ratio] 26.1 kg/m2 Dr. Angel Fuller MD Work Phone: 1(803)983-904991 [place] [address] 09-07-2024 08:11-0400 Body weight 68.[address] Angel Fuller MD Work Phone: 3(121)361-383591 [place] [address] 09-05-2024 15:46-0400 Body height 162.[address] Angel Fuller MD Work Phone: 6(569)059-317791 [place] [address] 09-05-2024 15:46-0400 Body mass index (BMI) [Ratio] 26.1 kg/m2 Dr. Angel Fuller MD Work Phone: 1(461)291-165391 [place] [address] 09-05-2024 15:46-0400 Body weight 68.[address] Angel Fuller MD Work Phone: 5(533)752-090491 [place] [address] 08-30-2024 11:00-0400 Body height 162.[address] Angel Fuller MD Work Phone: 5(125)088-065391 [place] [address] 08-30-2024 11:00-0400 Body mass index (BMI) [Ratio] 26.1 kg/m2 Dr. Angel Fuller MD Work Phone: 4(276)606-270391 [place] [address] 08-30-2024 11:00-0400 Body temperature 98.2 [degF] Dr. Angel Fuller MD Work Phone: 5(788)215-866791 [place] [address] 08-30-2024 11:00-0400 Body weight 68.[address] Angel Fuller MD Work Phone: 6(764)822-278591 [place] [address] 08-30-2024 11:00-0400 Diastolic blood pressure 77 mm[Hg] Dr. Angel Fuller MD Work Phone: 4(722)533-336991 [place] [address] 08-30-2024 11:00-0400 Heart rate 75 /min Dr. Angel Fuller MD Work Phone: 2(624)545-231991 [place] [address] 08-30-2024 11:00-0400 Respiratory rate 16 /min Dr. Angel Fuller MD Work Phone: 4(277)726-313391 [place] [address] 08-30-2024 11:00-0400 SaO2% (BldA) [Mass fraction] 99 % Dr. Angel Fuller MD Work Phone: 4(785)525-196691 [place] [address] 08-30-2024 11:00-0400 Systolic blood pressure 160 mm[Hg] Dr. Angel Fuller MD Work Phone: 7(749)611-432591 [place] [address] 08-15-2024 10:14-0400 Body temperature 98.2 [degF] Dr. Angel Fuller MD Work Phone: 8(702)838-030291 [place] [address] 08-15-2024 10:14-0400 Body weight 68.[address] Angel Fuller MD Work Phone: 2(359)866-210791 [place] [address] 08-15-2024 10:14-0400 Diastolic blood pressure 72 mm[Hg] Dr. Angel Fuller MD Work Phone: 9(774)683-947991 [place] [address] 08-15-2024 10:14-0400 Heart rate 71 /min Dr. Angel Fuller MD Work Phone: [facility] 08-15-2024 10:14-0400 Respiratory rate 17 /min Dr. Angel Fuller MD Work Phone: [facility] 08-15-2024 10:14-0400 SaO2% (BldA) [Mass fraction] 99 % Dr. Angel Fuller MD Work Phone: 6(396)651-640971 [place] [address] 08-15-2024 10:14-0400 Systolic blood pressure 152 mm[Hg] Dr. Angel Fuller MD Work Phone: 8(564)761-698191 [place] [address] 08-13-2024 22:21-0400 Body temperature 98 [degF] Dr. Angel Fuller MD Work Phone: 2(482)826-239291 [place] [address] 08-13-2024 22:21-0400 Diastolic blood pressure 79 mm[Hg] Dr. Angel Fuller MD Work Phone: 6(286)090-535971 [place] [address] 08-13-2024 22:21-0400 Heart rate 71 /min Dr. Angel Fuller MD Work Phone: 0(175)979-769571 [place] [address] 08-13-2024 22:21-0400 Respiratory rate 18 /min Dr. Angel Fuller MD Work Phone: [facility] 08-13-2024 22:21-0400 SaO2% (BldA) [Mass fraction] 99 % Dr. Angel Fuller MD Work Phone: [facility] 08-13-2024 22:21-0400 Systolic blood pressure 167 mm[Hg] Dr. Angel Fuller MD Work Phone: [facility] 08-13-2024 20:35-0400 Body mass index (BMI) [Ratio] 26.4 kg/m2 Dr. Angel Fuller MD Work Phone: [facility] 08-13-2024 20:35-0400 Body weight 69.[address] Angel Fuller MD Work Phone: [facility] 08-13-2024 18:34-0400 Body height 162.[address] Angel Fuller MD Work Phone: [facility] 07-14-2024 11:01-0400 Body temperature 97.8 [degF] Dr. Angel Fuller MD Work Phone: [facility] 07-14-2024 11:01-0400 Body weight 70.[address] Angel Fuller MD Work Phone: 8(096)334-624971 [place] [address] 07-14-2024 11:01-0400 Diastolic blood pressure 77 mm[Hg] Dr. Angel Fuller MD Work Phone: 8(288)389-870891 [place] [address] 07-14-2024 11:01-0400 Heart rate 76 /min Dr. Angel Fuller MD Work Phone: 8(257)822-840191 [place] [address] 07-14-2024 11:01-0400 Respiratory rate 17 /min Dr. Angel Fuller MD Work Phone: 4(662)689-956971 [place] [address] 07-14-2024 11:01-0400 SaO2% (BldA) [Mass fraction] 99 % Dr. Angel Fuller MD Work Phone: 2(073)628-975471 [place] [address] 07-14-2024 11:01-0400 Systolic blood pressure 151 mm[Hg] Dr. Angel Fuller MD Work Phone: [facility] 07-12-2024 11:22-0400 Diastolic blood pressure 84 mm[Hg] Karie Meyer DO Work Phone: [facility] 07-12-2024 11:22-0400 Heart rate 79 /min Karie Meyer DO Work Phone: [facility] 07-12-2024 11:22-0400 SaO2% (BldA) [Mass fraction] 98 % Karie Meyer DO Work Phone: [facility] 07-12-2024 11:22-0400 Systolic blood pressure 143 mm[Hg] Karie Meyer DO Work Phone: [facility] 06-30-2024 11:27-0400 Body height 162.[address] Angel Fuller MD Work Phone: 1(608)025-089371 [place] [address] 06-30-2024 11:27-0400 Body mass index (BMI) [Ratio] 26.2 kg/m2 Dr. Angel Fuller MD Work Phone: 3(454)247-390671 [place] [address] 06-30-2024 11:27-0400 Body temperature 98 [degF] Dr. Angel Fuller MD Work Phone: 9(013)024-207091 [place] [address] 06-30-2024 11:27-0400 Body weight 69.[address] Angel Fuller MD Work Phone: 2(491)553-324691 [place] [address] 06-30-2024 11:27-0400 Diastolic blood pressure 76 mm[Hg] Dr. Angel Fuller MD Work Phone: 8(384)571-063591 [place] [address] 06-30-2024 11:27-0400 Heart rate 86 /min Dr. Angel Fuller MD Work Phone: 0(345)730-775391 [place] [address] 06-30-2024 11:27-0400 Respiratory rate 16 /min Dr. Angel Fuller MD Work Phone: 0(595)240-514991 [place] [address] 06-30-2024 11:27-0400 SaO2% (BldA) [Mass fraction] 99 % Dr. Angel Fuller MD Work Phone: 3(914)437-901991 [place] [address] 06-30-2024 11:27-0400 Systolic blood pressure 137 mm[Hg] Dr. Angel Fuller MD Work Phone: 1(982)436-556991 [place] [address] 06-09-2024 14:06-0400 Body mass index (BMI) [Ratio] 26.1 kg/m2 Dr. Angel Fuller MD Work Phone: 4(999)103-809371 [place] [address] 06-09-2024 14:06-0400 Body temperature 97.8 [degF] Dr. Angel Fuller MD Work Phone: 8(131)566-989291 [place] [address] 06-09-2024 14:06-0400 Body weight 69.[address] Angel Fuller MD Work Phone: 3(420)041-682691 [place] [address] 06-09-2024 14:06-0400 Diastolic blood pressure 76 mm[Hg] Dr. Angel Fuller MD Work Phone: 0(226)619-979671 [place] [address] 06-09-2024 14:06-0400 Heart rate 83 /min Dr. Angel Fuller MD Work Phone: 4(793)411-580671 [place] [address] 06-09-2024 14:06-0400 Respiratory rate 17 /min Dr. Angel Fuller MD Work Phone: 5(513)045-794291 [place] [address] 06-09-2024 14:06-0400 SaO2% (BldA) [Mass fraction] 99 % Dr. Angel Fuller MD Work Phone: 7(161)005-889491 [place] [address] 06-09-2024 14:06-0400 Systolic blood pressure 134 mm[Hg] Dr. Angel Fuller MD Work Phone: 3(243)588-470591 [place] [address] 05-10-2024 11:00-0400 Body temperature 98.2 [degF] Dr. Angel Fuller MD Work Phone: 8(342)185-902091 [place] [address] 05-10-2024 11:00-0400 Body weight 68.[address] Angel Fuller MD Work Phone: 1(025)921-984291 [place] [address] 05-10-2024 11:00-0400 Diastolic blood pressure 70 mm[Hg] Dr. Angel Fuller MD Work Phone: 5(563)693-693891 [place] [address] 05-10-2024 11:00-0400 Heart rate 80 /min Dr. Angel Fuller MD Work Phone: 3(543)414-640791 [place] [address] 05-10-2024 11:00-0400 Respiratory rate 17 /min Dr. Angel Fuller MD Work Phone: 5(628)939-102371 [place] [address] 05-10-2024 11:00-0400 SaO2% (BldA) [Mass fraction] 99 % Dr. Angel Fuller MD Work Phone: 2(878)902-574291 [place] [address] 05-10-2024 11:00-0400 Systolic blood pressure 130 mm[Hg] Dr. Angel Fuller MD Work Phone: 7(258)209-281691 [place] [address] 05-02-2024 09:28-0400 Body height 162.[address] Angel Fuller MD Work Phone: 0(099)771-401791 [place] [address] 05-02-2024 09:28-0400 Body mass index (BMI) [Ratio] 25.9 kg/m2 Dr. Angel Fuller MD Work Phone: 8(206)472-051891 [place] [address] 05-02-2024 09:28-0400 Body weight 68.[address] Angel Fuller MD Work Phone: 0(428)830-139891 [place] [address] 04-18-2024 14:42-0500 Body temperature 98.2 [degF] Dr. Angel Fuller MD Work Phone: 1(299)519-800091 [place] [address] 04-18-2024 14:42-0500 Diastolic blood pressure 87 mm[Hg] Dr. Angel Fuller MD Work Phone: 4(609)203-855091 [place] [address] 04-18-2024 14:42-0500 Heart rate 73 /min Dr. Angel Fuller MD Work Phone: 0(198)864-591591 [place] [address] 04-18-2024 14:42-0500 Respiratory rate 16 /min Dr. Angel Fuller MD Work Phone: 1(408)425-896791 [place] [address] 04-18-2024 14:42-0500 SaO2% (BldA) [Mass fraction] 97 % Dr. Angel Fuller MD Work Phone: 8(971)935-411091 [place] [address] 04-18-2024 14:42-0500 Systolic blood pressure 155 mm[Hg] Dr. Angel Fuller MD Work Phone: 7(598)054-661391 [place] [address] 04-18-2024 12:17-0500 Body mass index (BMI) [Ratio] 26 kg/m2 Dr. Angel Fuller MD Work Phone: 7(088)271-972191 [place] [address] 04-18-2024 12:17-0500 Body weight 68.[address] Angel Fuller MD Work Phone: 0(307)948-952191 [place] [address] 04-18-2024 12:14-0500 Body height 162.[address] Angel Fuller MD Work Phone: 6(693)567-415191 [place] [address] 04-16-2024 19:02-0500 Body temperature 97.8 [degF] Dr. Angel Fuller MD Work Phone: 0(933)943-998491 [place] [address] 04-16-2024 19:02-0500 Diastolic blood pressure 90 mm[Hg] Dr. Angel Fuller MD Work Phone: 3(435)041-133191 [place] [address] 04-16-2024 19:02-0500 Heart rate 73 /min Dr. Angel Fuller MD Work Phone: 0(006)345-841591 [place] [address] 04-16-2024 19:02-0500 Respiratory rate 17 /min Dr. Angel Fuller MD Work Phone: 4(907)585-386191 [place] [address] 04-16-2024 19:02-0500 SaO2% (BldA) [Mass fraction] 98 % Dr. Angel Fuller MD Work Phone: 8(761)913-562591 [place] [address] 04-16-2024 19:02-0500 Systolic blood pressure 172 mm[Hg] Dr. Angel Fuller MD Work Phone: 4(221)675-231591 [place] [address] 04-16-2024 17:07-0500 Body mass index (BMI) [Ratio] 25.9 kg/m2 Dr. Angel Fuller MD Work Phone: 0(434)530-013391 [place] [address] 04-16-2024 17:07-0500 Body weight 68.[address] Angel Fuller MD Work Phone: 7(026)845-934391 [place] [address] 04-12-2024 18:59-0500 Body temperature 99 [degF] Dr. Angel Fuller MD Work Phone: 9(111)395-989991 [place] [address] 04-12-2024 18:59-0500 Diastolic blood pressure 75 mm[Hg] Dr. Angel Fuller MD Work Phone: 7(018)132-072891 [place] [address] 04-12-2024 18:59-0500 Heart rate 66 /min Dr. Angel Fuller MD Work Phone: 1(079)456-063591 [place] [address] 04-12-2024 18:59-0500 Respiratory rate 18 /min Dr. Angel Fuller MD Work Phone: 2(115)219-477691 [place] [address] 04-12-2024 18:59-0500 SaO2% (BldA) [Mass fraction] 96 % Dr. Angel Fuller MD Work Phone: 4(350)777-614291 [place] [address] 04-12-2024 18:59-0500 Systolic blood pressure 133 mm[Hg] Dr. Angel Fuller MD Work Phone: 6(513)217-339671 [place] [address] 04-12-2024 15:30-0500 Body mass index (BMI) [Ratio] 26.3 kg/m2 Dr. Angel Fuller MD Work Phone: 8(258)305-381591 [place] [address] 04-12-2024 15:30-0500 Body weight [address] Angel Fuller MD Work Phone: 7(240)959-469591 [place] [address] 04-12-2024 11:59-0500 Body temperature 99.5 [degF] Dr. Angel Fuller MD Work Phone: 4(148)091-479591 [place] [address] 04-12-2024 11:59-0500 Diastolic blood pressure 70 mm[Hg] Dr. Angel Fuller MD Work Phone: 7(200)065-812691 [place] [address] 04-12-2024 11:59-0500 Heart rate 101 /min Dr. Angel Fuller MD Work Phone: 2(731)226-405991 [place] [address] 04-12-2024 11:59-0500 Respiratory rate 12 /min Dr. Angel Fuller MD Work Phone: 9(863)637-583391 [place] [address] 04-12-2024 11:59-0500 SaO2% (BldA) [Mass fraction] 99 % Dr. Angel Fuller MD Work Phone: 1(854)385-085891 [place] [address] 04-12-2024 11:59-0500 Systolic blood pressure 140 mm[Hg] Dr. Angel Fuller MD Work Phone: 4(427)167-845071 [place] [address] 04-05-2024 10:31-0500 Body temperature 97.2 [degF] Dr. Angel Fuller MD Work Phone: 2(851)197-002771 [place] [address] 04-05-2024 10:31-0500 Diastolic blood pressure 64 mm[Hg] Dr. Angel Fuller MD Work Phone: 0(872)861-705171 [place] [address] 04-05-2024 10:31-0500 Heart rate 71 /min Dr. Angel Fuller MD Work Phone: 2(020)825-614271 [place] [address] 04-05-2024 10:31-0500 Respiratory rate 16 /min Dr. Angel Fuller MD Work Phone: 4(272)640-153291 [place] [address] 04-05-2024 10:31-0500 SaO2% (BldA) [Mass fraction] 98 % Dr. Angel Fuller MD Work Phone: 2(280)718-066291 [place] [address] 04-05-2024 10:31-0500 Systolic blood pressure 103 mm[Hg] Dr. Angel Fuller MD Work Phone: 4(019)716-030291 [place] [address] 04-05-2024 09:58-0500 Body mass index (BMI) [Ratio] 26.2 kg/m2 Dr. Angel Fuller MD Work Phone: 7(635)400-978191 [place] [address] 04-05-2024 09:58-0500 Body weight 69.[address] Angel Fuller MD Work Phone: 8(591)662-080291 [place] [address] 04-04-2024 08:55-0500 Body mass index (BMI) [Ratio] 25.9 kg/m2 Dr. Angel Fuller MD Work Phone: 6(608)444-255591 [place] [address] 04-04-2024 08:55-0500 Body temperature 98 [degF] Dr. Angel Fuller MD Work Phone: 0(343)249-069791 [place] [address] 04-04-2024 08:55-0500 Body weight 68.[address] Angel Fuller MD Work Phone: 0(030)855-306291 [place] [address] 04-04-2024 08:55-0500 Diastolic blood pressure 82 mm[Hg] Dr. Angel Fuller MD Work Phone: 1(168)778-542291 [place] [address] 04-04-2024 08:55-0500 Heart rate 89 /min Dr. Angel Fuller MD Work Phone: 3(888)922-773391 [place] [address] 04-04-2024 08:55-0500 Respiratory rate 16 /min Dr. Angel Fuller MD Work Phone: 5(277)154-989791 [place] [address] 04-04-2024 08:55-0500 SaO2% (BldA) [Mass fraction] 99 % Dr. Angel Fuller MD Work Phone: 6(433)491-040191 [place] [address] 04-04-2024 08:55-0500 Systolic blood pressure 148 mm[Hg] Dr. Angel Fuller MD Work Phone: 2(223)587-354091 [place] [address] 03-13-2024 00:29-0500 Body temperature 98.4 [degF] Dr. Angel Fuller MD Work Phone: 6(566)524-991091 [place] [address] 03-13-2024 00:29-0500 Diastolic blood pressure 78 mm[Hg] Dr. Angel Fuller MD Work Phone: 7(949)155-173691 [place] [address] 03-13-2024 00:29-0500 Heart rate 71 /min Dr. Angel Fuller MD Work Phone: 9(125)739-689691 [place] [address] 03-13-2024 00:29-0500 Respiratory rate 18 /min Dr. Angel Fuller MD Work Phone: 7(822)191-554791 [place] [address] 03-13-2024 00:29-0500 SaO2% (BldA) [Mass fraction] 98 % Dr. Angel Fuller MD Work Phone: 5(752)800-642691 [place] [address] 03-13-2024 00:29-0500 Systolic blood pressure 163 mm[Hg] Dr. Angel Fuller MD Work Phone: 1(796)337-312191 [place] [address] 03-12-2024 20:45-0500 Body mass index (BMI) [Ratio] 26.6 kg/m2 Dr. Angel Fuller MD Work Phone: 6(532)446-067591 [place] [address] 03-12-2024 20:45-0500 Body weight 70.[address] Angel Fuller MD Work Phone: 9(891)100-132391 [place] [address] 03-06-2024 13:21-0500 Body temperature 98.6 [degF] Dr. Angel Fuller MD Work Phone: 8(128)635-374491 [place] [address] 03-06-2024 13:21-0500 Diastolic blood pressure 76 mm[Hg] Dr. Angel Fuller MD Work Phone: 5(347)777-211891 [place] [address] 03-06-2024 13:21-0500 Heart rate 71 /min Dr. Angel Fuller MD Work Phone: 0(346)854-233691 [place] [address] 03-06-2024 13:21-0500 Respiratory rate 16 /min Dr. Angel Fuller MD Work Phone: [facility] 03-06-2024 13:21-0500 SaO2% (BldA) [Mass fraction] 99 % Dr. Angel Fuller MD Work Phone: [facility] 03-06-2024 13:21-0500 Systolic blood pressure 146 mm[Hg] Dr. Angel Fuller MD Work Phone: 3(296)717-326273 [address] 02-19-2024 15:45-0500 Body mass index (BMI) [Ratio] 26.9 kg/m2 Dr. Angel Fuller MD Work Phone: 6(927)512-679773 [address] 02-19-2024 15:45-0500 Body weight 71.[address] Angel Fuller MD Work Phone: 9(901)890-943773 [address] 02-19-2024 15:45-0500 Diastolic blood pressure 85 mm[Hg] Dr. Angel Fuller MD Work Phone: 4(595)741-696073 [address] 02-19-2024 15:45-0500 Heart rate 82 /min Dr. Angel Fuller MD Work Phone: 6(132)503-295673 [address] 02-19-2024 15:45-0500 SaO2% (BldA) [Mass fraction] 99 % Dr. Angel Fuller MD Work Phone: 0(379)657-685171 [place] [address] 02-19-2024 15:45-0500 Systolic blood pressure 147 mm[Hg] Dr. Angel Fuller MD Work Phone: [facility] 09-08-2023 11:41-0400 Body mass index (BMI) [Ratio] 27.16 kg/m2 Prisca Cox MD Work Phone: [facility] 09-08-2023 11:41-0400 Body weight 71.22 kg Prisca Cox MD Work Phone: [facility] 09-08-2023 11:41-0400 Diastolic blood pressure 82 mm[Hg] Prisca Cox MD Work Phone: [facility] 09-08-2023 11:41-0400 Systolic blood pressure 144 mm[Hg] Prisca Cox MD Work Phone: [facility] 06-11-2023 11:02-0400 Body weight 70.13 kg Christine Prattyolanda [employer]PER[employer]OR.UNARMED SECURITY OFFICER Work Phone: [facility] 06-11-2023 11:02-0400 Diastolic blood pressure 80 mm[Hg] Christine Haury [employer] SUPERVISOR.UNARMED SECURITY OFFICER Work Phone: [facility] 06-11-2023 11:02-0400 Heart rate 70 /min Christine Haury [employer] SUPERVISOR.UNARMED SECURITY OFFICER Work Phone: [facility] 06-11-2023 11:02-0400 SaO2% (BldA) [Mass fraction] 99 % Christine Haury [employer] SUPERVISOR.UNARMED SECURITY OFFICER Work Phone: [facility] 06-11-2023 11:02-0400 Systolic blood pressure 140 mm[Hg] Christine Haury [employer]ANT SUPERVISOR.UNARMED SECURITY OFFICER Work Phone: [facility] 06-10-2023 13:07-0400 Body height 162.[address] Angel Fuller Work Phone: [facility] 06-10-2023 13:07-0400 Body mass index (BMI) [Ratio] 26.3 kg/m2 Dr. Angel Fuller Work Phone: [facility] 06-10-2023 13:07-0400 Body weight 69.[address] Angel Fuller Work Phone: [facility] 06-10-2023 13:07-0400 Diastolic blood pressure 87 mm[Hg] Dr. Angel Fuller Work Phone: [facility] 06-10-2023 13:07-0400 Heart rate 79 /min Dr. Angel Fuller Work Phone: [facility] 06-10-2023 13:07-0400 Respiratory rate 16 /min Dr. Angel Fuller Work Phone: [facility] 06-10-2023 13:07-0400 Systolic blood pressure 162 mm[Hg] Dr. Angel Fuller Work Phone: [facility] 03-20-2023 11:04-0500 Body temperature 97.6 [degF] Dr. Angel Fuller Work Phone: [facility] 03-20-2023 11:04-0500 Diastolic blood pressure 71 mm[Hg] Dr. Angel Fuller Work Phone: [facility] 03-20-2023 11:04-0500 Heart rate 67 /min Dr. Angel Fuller Work Phone: [facility] 03-20-2023 11:04-0500 Respiratory rate 16 /min Dr. Angel Fuller Work Phone: [facility] 03-20-2023 11:04-0500 SaO2% (BldA) [Mass fraction] 97 % Dr. Angel Fuller Work Phone: [facility] 03-20-2023 11:04-0500 Systolic blood pressure 137 mm[Hg] Dr. Angel Fuller Work Phone: [facility] 03-20-2023 10:24-0500 Body height 162.[address] Angel Fuller Work Phone: [facility] 03-09-2023 11:00-0500 Body mass index (BMI) [Ratio] 25.7 kg/m2 Dr. Angel Fuller Work Phone: [facility] 03-09-2023 11:00-0500 Body temperature 98 [degF] Dr. Angel Fuller Work Phone: [facility] 03-09-2023 11:00-0500 Body weight 68.[address] Angel Fuller Work Phone: [facility] 03-09-2023 11:00-0500 Diastolic blood pressure 80 mm[Hg] Dr. Angel Fuller Work Phone: [facility] 03-09-2023 11:00-0500 Heart rate 85 /min Dr. Angel Fuller Work Phone: [facility] 03-09-2023 11:00-0500 Respiratory rate 12 /min Dr. Angel Fuller Work Phone: [facility] 03-09-2023 11:00-0500 SaO2% (BldA) [Mass fraction] 98 % Dr. Angel Fuller Work Phone: 6(208)462-415471 [place] [address] 03-09-2023 11:00-0500 Systolic blood pressure 158 mm[Hg] Dr. Angel Fuller Work Phone: 6(077)570-338871 [place] [address] 02-19-2023 15:51-0500 Body height 162.[address] Angel Fuller Work Phone: 0(144)866-655691 [place] [address] 02-19-2023 15:51-0500 Body mass index (BMI) [Ratio] 25.5 kg/m2 Dr. Angel Fuller Work Phone: 6(318)895-675371 [place] [address] 02-19-2023 15:51-0500 Body temperature 98.2 [degF] Dr. Angel Fuller Work Phone: 8(825)233-124071 [place] [address] 02-19-2023 15:51-0500 Body weight 67.[address] Angel uFller Work Phone: 5(040)692-453171 [place] [address] 02-19-2023 15:51-0500 Diastolic blood pressure 82 mm[Hg] Dr. Angel Fuller Work Phone: 8(110)950-231671 [place] [address] 02-19-2023 15:51-0500 Heart rate 89 /min Dr. Angel Fuller Work Phone: [facility] 02-19-2023 15:51-0500 Respiratory rate 16 /min Dr. Angel Fuller Work Phone: [facility] 02-19-2023 15:51-0500 SaO2% (BldA) [Mass fraction] 98 % Dr. Angel Fuller Work Phone: [facility] 02-19-2023 15:51-0500 Systolic blood pressure 151 mm[Hg] Dr. Angel Fuller Work Phone: 4(941)132-987371 [place] [address] 11-21-2022 12:56-0400 Body height 161.9 cm [place] Mendez [employer] SUPERVISOR.UNARMED SECURITY OFFICER Work Phone: [facility] 11-21-2022 12:56-0400 Body temperature 97.5 [degF] [place] Mendez [employer] SUPERVISOR.UNARMED SECURITY OFFICER Work Phone: [facility] 11-21-2022 12:56-0400 Body weight 68.49 kg Deyanira Chaenter [employer] SUPERVISOR.UNARMED SECURITY OFFICER Work Phone: [facility] 11-21-2022 12:56-0400 Diastolic blood pressure 84 mm[Hg] [place] Mendez [employer]ATION [employer]ANT SUPERVISOR.UNARMED SECURITY OFFICER Work Phone: [facility] 11-21-2022 12:56-0400 Heart rate 76 /min [place] Mendez [employer] SUPERVISOR.UNARMED SECURITY OFFICER Work Phone: [facility] 11-21-2022 12:56-0400 SaO2% (BldA) [Mass fraction] 99 % Deyanira Mendez [employer]ANT SUPERVISOR.UNARMED SECURITY OFFICER Work Phone: [facility] 11-21-2022 12:56-0400 Systolic blood pressure 146 mm[Hg] Deyanira Mendez [employer]ATION PLANT SUPERVISOR.UNARMED SECURITY OFFICER Work Phone: [facility] 07-01-2022 15:03-0400 Body weight 68.04 kg Prisca Cox MD Work Phone: [facility] 07-01-2022 15:03-0400 Diastolic blood pressure 60 mm[Hg] Prisca Cox MD Work Phone: [facility] 07-01-2022 15:03-0400 Systolic blood pressure 124 mm[Hg] Prisca Cox MD Work Phone: [facility] 06-25-2022 10:19-0400 Body weight 68.04 kg Olga Zurdodebby [employer]ATION [employer]ANT SUPERVISOR.CNM Work Phone: [facility] 06-25-2022 10:19-0400 Diastolic blood pressure 70 mm[Hg] Olga Steinberg [employer]ATION [employer]ANT SUPERVISOR.CNM Work Phone: [facility] 06-25-2022 10:19-0400 Systolic blood pressure 124 mm[Hg] Olga Steinberg [employer]OVATION PLANT SUPERVISORFionaCNM Work Phone: [facility] 05-07-2022 14:09-0400 Body temperature 96.8 [degF] Robert Masci DO Work Phone: [facility] 05-07-2022 14:09-0400 Diastolic blood pressure 75 mm[Hg] Robert Masci DO Work Phone: [facility] 05-07-2022 14:09-0400 Heart rate 68 /min Robert Masci DO Work Phone: [facility] 05-07-2022 14:09-0400 Systolic blood pressure 160 mm[Hg] Robert Masci DO Work Phone: [facility] 04-11-2022 15:40-0500 Body temperature 97.2 [degF] Robert Masci DO Work Phone: [facility] 04-11-2022 15:40-0500 Body weight 71.22 kg Robert Masci DO Work Phone: [facility] 04-11-2022 15:40-0500 Diastolic blood pressure 82 mm[Hg] Robert Masci DO Work Phone: [facility] 04-11-2022 15:40-0500 Heart rate 76 /min Robert Masci DO Work Phone: [facility] 04-11-2022 15:40-0500 SaO2% (BldA) [Mass fraction] 99 % Robert Masci DO Work Phone: [facility] 04-11-2022 15:40-0500 Systolic blood pressure 148 mm[Hg] Robert Masci DO Work Phone: [facility] 04-01-2022 14:36-0500 Body height 163 cm Robert Masci DO Work Phone: [facility] 04-01-2022 14:36-0500 Body temperature 97.9 [degF] Robert Masci DO Work Phone: [facility] 04-01-2022 14:36-0500 Body weight 71.44 kg Robert Weber DO Work Phone: [facility] 04-01-2022 14:36-0500 Diastolic blood pressure 86 mm[Hg] Robert Weber DO Work Phone: [facility] 04-01-2022 14:36-0500 Heart rate 87 /min Robert Weber DO Work Phone: [facility] 04-01-2022 14:36-0500 SaO2% (BldA) [Mass fraction] 99 % Robert Weber DO Work Phone: [facility] 04-01-2022 14:36-0500 Systolic blood pressure 143 mm[Hg] Robert Weber DO Work Phone: [facility] 02-19-2022 14:45-0500 Body temperature 97 [degF] Dr. Angel Fuller Work Phone: [facility] Work Phone: 02-19-2022 14:45-0500 Diastolic blood pressure 65 mm[Hg] Dr. Angel Fuller Work Phone: [facility] Work Phone: 02-19-2022 14:45-0500 Heart rate 72 /min Dr. Angel Fuller Work Phone: [facility] Work Phone: 02-19-2022 14:45-0500 Respiratory rate 16 /min Dr. Angel Fuller Work Phone: [facility] Work Phone: 02-19-2022 14:45-0500 SaO2% (BldA) [Mass fraction] 100 % Dr. Angel Fuller Work Phone: [facility] Work Phone: 02-19-2022 14:45-0500 Systolic blood pressure 130 mm[Hg] Dr. Angel Fuller Work Phone: [facility] Work Phone: 02-06-2022 08:37-0500 Body height 162.[address] Angel Fuller Work Phone: [facility] Work Phone: 02-06-2022 08:37-0500 Body mass index (BMI) [Ratio] 26.2 kg/m2 Dr. Angel Fuller Work Phone: [facility] Work Phone: 02-06-2022 08:37-0500 Body temperature 96.5 [degF] Dr. Angel Fuller Work Phone: [facility] Work Phone: 02-06-2022 08:37-0500 Body weight 69.[address] Angel Fuller Work Phone: [facility] Work Phone: 02-06-2022 08:37-0500 Diastolic blood pressure 84 mm[Hg] Dr. Angel Fuller Work Phone: [facility] Work Phone: 02-06-2022 08:37-0500 Heart rate 73 /min Dr. Angel Fuller Work Phone: [facility] Work Phone: 02-06-2022 08:37-0500 Respiratory rate 18 /min Dr. Angel Fuller Work Phone: [facility] Work Phone: 02-06-2022 08:37-0500 SaO2% (BldA) [Mass fraction] 97 % Dr. Angel Fuller Work Phone: [facility] Work Phone: 02-06-2022 08:37-0500 Systolic blood pressure 144 mm[Hg] Dr. Angel Fuller Work Phone: [facility] Work Phone: 12-26-2021 15:48-0400 Body weight 67.59 kg Andres Vasquez MD Work Phone: [facility] 12-26-2021 15:48-0400 Diastolic blood pressure 76 mm[Hg] Andres Vasquez MD Work Phone: [facility] 12-26-2021 15:48-0400 Systolic blood pressure 128 mm[Hg] Andres Vasquez MD Work Phone: [facility] 07-30-2021 14:13-0400 Body height 163.8 cm Deyanira Mendez [employer]ANT SUPERVISOR.UNARMED SECURITY OFFICER Work Phone: [facility] 07-30-2021 14:13-0400 Body temperature 98.1 [degF] Deyanira Mendez [employer] PLANT SUPERVISOR.UNARMED SECURITY OFFICER Work Phone: [facility] 07-30-2021 14:13-0400 Body weight 65.09 kg Deyanira Mendez [employer] PLANT SUPERVISOR.UNARMED SECURITY OFFICER Work Phone: [facility] 07-30-2021 14:13-0400 Diastolic blood pressure 80 mm[Hg] Deyanira Mendez [employer] PLANT SUPERVISOR.UNARMED SECURITY OFFICER Work Phone: [facility] 07-30-2021 14:13-0400 Heart rate 90 /min Deyanira Mendez [employer] PLANT SUPERVISOR.UNARMED SECURITY OFFICER Work Phone: [facility] 07-30-2021 14:13-0400 SaO2% (BldA) [Mass fraction] 97 % Deyanira Mendez [employer] PLANT SUPERVISOR.UNARMED SECURITY OFFICER Work Phone: [facility] 07-30-2021 14:13-0400 Systolic blood pressure 128 mm[Hg] Deyanira Mendez R[employer]ATION PLANT SUPERVISOR.UNARMED SECURITY OFFICER Work Phone: [facility] 07-12-2021 18:11-0400 Body temperature 97.59 [degF] Adriana Vasquez APRN.UNARMED SECURITY OFFICER Work Phone: [facility] 07-12-2021 18:11-0400 Body weight 66.04 kg Adriana Vasquez APRN.UNARMED SECURITY OFFICER Work Phone: [facility] 07-12-2021 18:11-0400 Diastolic blood pressure 92 mm[Hg] Adriana Vasquez APRN.UNARMED SECURITY OFFICER Work Phone: [facility] 07-12-2021 18:11-0400 Heart rate 87 /min Adriana Vasquez APRN.UNARMED SECURITY OFFICER Work Phone: [facility] 07-12-2021 18:11-0400 Respiratory rate 20 /min Adriana Vasquez APRN.UNARMED SECURITY OFFICER Work Phone: [facility] 07-12-2021 18:11-0400 SaO2% (BldA) [Mass fraction] 99 % Adriana Vasquez APRN.UNARMED SECURITY OFFICER Work Phone: [facility] 07-12-2021 18:11-0400 Systolic blood pressure 162 mm[Hg] Adrianalynsey Vasquez APRN.UNARMED SECURITY OFFICER Work Phone: [facility] 06-10-2021 22:25-0400 Body temperature 98.2 [degF] Dr. Angel Fuller Work Phone: [facility] Work Phone: 06-10-2021 22:25-0400 Diastolic blood pressure 75 mm[Hg] Dr. Angel Fuller Work Phone: [facility] Work Phone: 06-10-2021 22:25-0400 Systolic blood pressure 149 mm[Hg] Dr. Angel Fuller Work Phone: [facility] Work Phone: 06-10-2021 21:36-0400 Heart rate 81 /min Dr. Angel Fuller Work Phone: [facility] Work Phone: 06-10-2021 21:36-0400 Respiratory rate 16 /min Dr. Angel Fuller Work Phone: [facility] Work Phone: 06-10-2021 21:36-0400 SaO2% (BldA) [Mass fraction] 98 % Dr. Angel Fuller Work Phone: [facility] Work Phone: 06-10-2021 16:57-0400 Body height 162.[address] Angel Fuller Work Phone: [facility] Work Phone: 06-10-2021 16:57-0400 Body mass index (BMI) [Ratio] 23.8 kg/m2 Dr. Angel Fuller Work Phone: [facility] Work Phone: 06-10-2021 16:57-0400 Body weight [address] Angel Fuller Work Phone: [facility] Work Phone: 06-01-2021 13:30-0400 Body temperature 98.4 [degF] Adriana Vasquez APRN.UNARMED SECURITY OFFICER Work Phone: [facility] 06-01-2021 13:30-0400 Body weight 63.78 kg Adriana Vasquez APRN.UNARMED SECURITY OFFICER Work Phone: [facility] 06-01-2021 13:30-0400 Diastolic blood pressure 90 mm[Hg] Adriana Vasquez APRN.UNARMED SECURITY OFFICER Work Phone: [facility] 06-01-2021 13:30-0400 Heart rate 82 /min Adriana Vasquez APRN.UNARMED SECURITY OFFICER Work Phone: [facility] 06-01-2021 13:30-0400 Respiratory rate 14 /min Adriana Vasquez APRN.UNARMED SECURITY OFFICER Work Phone: [facility] 06-01-2021 13:30-0400 SaO2% (BldA) [Mass fraction] 99 % Adriana Vasquez APRN.UNARMED SECURITY OFFICER Work Phone: [facility] 06-01-2021 13:30-0400 Systolic blood pressure 130 mm[Hg] Adriana Vasquez APRN.UNARMED SECURITY OFFICER Work Phone: [facility] 05-15-2021 13:05-0400 Body height 161.[address] Angel Fuller Work Phone: [facility] Work Phone: 05-15-2021 13:05-0400 Body mass index (BMI) [Ratio] 24.6 kg/m2 Dr. Angel Fuller Work Phone: [facility] Work Phone: 05-15-2021 13:05-0400 Body temperature 96.8 [degF] Dr. Angel Fuller Work Phone: [facility] Work Phone: 05-15-2021 13:05-0400 Body weight 64.[address] Angel Fuller Work Phone: [facility] Work Phone: 05-15-2021 13:05-0400 Diastolic blood pressure 88 mm[Hg] Dr. Angel Fuller Work Phone: [facility] Work Phone: 05-15-2021 13:05-0400 Heart rate 79 /min Dr. Angel Fuller Work Phone: [facility] Work Phone: 05-15-2021 13:05-0400 Respiratory rate 18 /min Dr. Angel Fuller Work Phone: [facility] Work Phone: 05-15-2021 13:05-0400 SaO2% (BldA) [Mass fraction] 100 % Dr. Angel Fuller Work Phone: [facility] Work Phone: 05-15-2021 13:05-0400 Systolic blood pressure 150 mm[Hg] Dr. Angel Fuller Work Phone: [facility] Work Phone: 02-07-2021 07:33-0500 Body mass index (BMI) [Ratio] 23.7 kg/m2 Dr. Angel Fuller Work Phone: [facility] Work Phone: 02-07-2021 07:33-0500 Body temperature 97 [degF] Dr. Angel Fuller Work Phone: [facility] Work Phone: 02-07-2021 07:33-0500 Body weight 61.[address] Angel Fuller Work Phone: [facility] Work Phone: 02-07-2021 07:33-0500 Diastolic blood pressure 88 mm[Hg] Dr. Angel Fuller Work Phone: [facility] Work Phone: 02-07-2021 07:33-0500 Heart rate 80 /min Dr. Angel Fuller Work Phone: [facility] Work Phone: 02-07-2021 07:33-0500 Respiratory rate 18 /min Dr. Angel Fuller Work Phone: [facility] Work Phone: 02-07-2021 07:33-0500 SaO2% (BldA) [Mass fraction] 99 % Dr. Angel Fuller Work Phone: [facility] Work Phone: 02-07-2021 07:33-0500 Systolic blood pressure 140 mm[Hg] Dr. Angel Fuller Work Phone: [facility] Work Phone: Encounters Encounter Date Encounter Type Care Provider Facility Start: 12-13-2024 ambulatory Angel Fuller Facility:[facility] Start: 12-11-2024 End: 12-11-2024 Emergency department patient visit Angel Fuller Facility:[facility] Start: 11-26-2024 End: 11-26-2024 ambulatory ANGEL FULLER Facility:[facility] Start: 11-24-2024 ambulatory Angel Fuller Facility:[facility] Start: 11-23-2024 End: 11-23-[address] Jeovanny Moore DO -[facility] Work Phone: Start: 11-23-2024 End: 11-23-[address] Angel Fuller MD Work Phone: [facility] Start: 11-21-2024 End: 11-21-2024 Emergency department patient visit Dr. Jefry Mir DO -Emergency Department Work Phone: Start: 11-17-2024 End: 11-17-[address] Anthony Mckeon MD -[facility] Work Phone: Start: 11-17-2024 End: 11-17-[address] Angel Fuller MD Work Phone: [facility] Start: 11-10-2024 End: 11-10-[address] Anthony Mckeon MD -[facility] Work Phone: Start: 11-10-2024 End: 11-10-[address] Angel Fuller MD Work Phone: [facility] Start: 10-31-2024 End: 10-31-[address] Jeovanny Moore DO -[facility] Work Phone: Start: 10-31-2024 End: 10-31-[address] Angel Fuller MD Work Phone: [facility] Start: 10-17-2024 End: 10-17-[address] Anthony Mckeon MD -[facility] Work Phone: Start: 10-17-2024 End: 10-17-[address] Angel Fuller MD Work Phone: [facility] Start: 09-15-2024 End: 09-15-[address] Anthony Mckeon MD -[facility] Work Phone: Start: 09-15-2024 End: 09-15-[address] Angel Fuller MD Work Phone: [facility] Start: 09-07-2024 End: 09-07-[address] Jeovanny Moore DO -[facility] Work Phone: Start: 09-07-2024 End: 09-07-[address] Angel Fuller MD Work Phone: [facility] Start: 09-05-2024 End: 09-05-[address] Marco Obrien MD -[facility] Start: 09-05-2024 End: 09-05-[address] Angel Fuller MD Work Phone: [facility] Start: 08-31-2024 End: 08-31-[address] Angel Fuller MD Work Phone: [facility] Start: 08-31-2024 End: 08-31-[address] Anthony Mckeon MD -[facility] Work Phone: Start: 08-30-2024 End: 08-30-[address] Anthony Mckeon MD -[facility] Work Phone: Start: 08-30-2024 End: 08-31-[address] Angel Fuller MD Work Phone: [facility] Start: 08-18-2024 End: 08-18-[address] ANGEL FULLER MD Facility:[facility] Start: 08-18-2024 End: 08-18-2024 Patient encounter procedure NAHOMI PETERSON [employer] SUPERVISOR-UNARMED SECURITY OFFICER [facility] Start: 08-15-2024 End: 08-15-[address] Anthony Mckeon MD -[facility] Work Phone: Start: 08-15-2024 End: 08-15-[address] Angel Fuller MD Work Phone: [facility] Work Phone: Start: 08-13-2024 End: 08-13-2024 Emergency department patient visit Dr. Angel Fuller MD Work Phone: -Emergency Department Work Phone: Start: 07-29-2024 End: 07-29-[address] Jeovanny Moore DO -[facility] Work Phone: Start: 07-29-2024 End: 07-29-[address] Angel Fuller MD Work Phone: [facility] Work Phone: Start: 07-22-2024 End: 07-22-[address] Jeovanny Moore DO -[facility] Work Phone: Start: 07-22-2024 End: 07-22-[address] Angel Fuller MD Work Phone: [facility] Work Phone: Start: 07-14-2024 End: 07-14-[address] Anthony Mckeon MD -[facility] Work Phone: Start: 07-14-2024 End: 07-14-2024 ambulatory Angel Fuller Facility:[facility] Start: 07-13-2024 End: 07-13-[address] Jeovanny Moore DO -[facility] Work Phone: Start: 07-13-2024 End: 07-13-[address] Angel Fuller MD Work Phone: [facility] Work Phone: Start: 07-12-2024 End: 07-12-2024 Patient encounter procedure Karie Meyer DO Work Phone: Vascular Surgery Comment on above: Venous (peripheral) insufficiency (Primary Dx) Start: 07-12-2024 End: 07-12-2024 ambulatory KARIE MEYER Facility:[facility] Start: 06-30-2024 End: 06-30-[address] Angel Fuller MD Work Phone: [facility] Work Phone: Start: 06-30-2024 End: 06-30-[address] Anthony Mckeon MD -[facility] Work Phone: Start: 06-30-2024 End: 06-30-[address] Anthony Mckeon MD -[facility] Work Phone: Start: 06-30-2024 End: 06-30-2024 ambulatory Angel Nam Facility:[facility] Start: 06-30-2024 End: 06-30-2024 ambulatory Angel Nam Facility:[facility] Start: 06-24-2024 End: 06-24-[address] Jeovanny Moore DO -[facility] Work Phone: Start: 06-24-2024 End: 06-24-2024 ambulatory Angel Nam Facility:[facility] Start: 06-14-2024 End: 06-14-2024 ambulatory ANGEL K NAM Facility:[facility] Start: 06-09-2024 End: 06-09-[address] Anthony Mckeon MD -[facility] Work Phone: Start: 06-09-2024 End: 06-09-2024 ambulatory Angel Nam Facility:[facility] Start: 06-03-2024 End: 06-03-2024 Telephone encounter Karie Meyer DO Work Phone: Vascular Surgery Start: 05-25-2024 End: 05-25-2024 ambulatory ANGEL FULLER Facility:[facility] Start: 05-17-2024 ambulatory Angel Fuller Facility:[facility] Start: 05-17-2024 Non-patient / Non-visit Dr. Tory davila MD -[facility]- Start: 05-17-2024 End: 05-17-[address] Angel Fuller MD Work Phone: [facility] Work Phone: Start: 05-17-2024 End: 05-17-[address] Anthony Mckeon MD -Pulmonary Services/Neurology Work Phone: Start: 05-17-2024 End: 05-17-2024 ambulatory Anthony Mckeon Facility:[facility] Start: 05-13-2024 End: 05-13-2024 ambulatory NAHOMI PETERSON [employer] SUPERVISOR-UNARMED SECURITY OFFICER Facility:[facility] Start: 05-11-2024 ambulatory Angel Fuller [facility] Start: 05-11-2024 Non-patient / Non-visit Dr. Shakeel parnell MD -[facility]- Start: 05-11-2024 End: 05-11-[address] Angel Fuller MD Work Phone: [facility] Work Phone: Start: 05-11-2024 End: 05-11-[address] Anthony Mckeon MD -Pulmonary Services/Neurology Work Phone: Start: 05-10-2024 End: 05-10-[address] Anthony Mckeon MD -[facility] Work Phone: Start: 05-10-2024 End: 05-11-2024 ambulatory Angel [facility] Facility:[facility] Start: 05-02-2024 End: 05-02-2024 Patient encounter procedure Mago COLEMAN -[facility] Work Phone: Start: 05-02-2024 End: 05-02-2024 ambulatory Angel Nam Facility:[facility] Start: 04-28-2024 End: 05-02-2024 ambulatory PAVEL SIMON APRN-UNARMED SECURITY OFFICER Facility:A Start: 04-18-2024 End: 04-18-2024 Emergency department patient visit Dr. Julien Holder DO -Emergency Department Work Phone: Start: 04-18-2024 End: 04-18-[address] Angel Fuller MD Work Phone: [facility] Work Phone: Start: 04-18-2024 End: 04-18-[address] Angel Fuller MD Work Phone: -Radiology, [facility] Work Phone: Start: 04-18-2024 End: 04-18-2024 ambulatory Angel Fuller Facility:[facility] Start: 04-16-2024 End: 04-16-2024 Emergency department patient visit Dr. Easton Hanson DO -Emergency Department Work Phone: Start: 04-12-2024 End: 04-12-2024 Emergency department patient visit Dr. Easton Hanson DO -Emergency Department Work Phone: Start: 04-12-2024 End: 04-12-2024 Patient encounter procedure Ang Ernestosherry SSIS ETL DEVELOPERRenoC [facility] Work Phone: Start: 04-12-2024 End: 04-12-2024 ambulatory Angel Fuller Facility:[facility] Start: 04-05-2024 End: 04-05-[address] Cade Monroy MD -Medical Out Work Phone: Start: 04-05-2024 End: 04-05-2024 ambulatory Cade Monroy Facility:[facility] Start: 04-04-2024 End: 04-04-2024 Patient encounter procedure Linda FORDC -[facility] Work Phone: Start: 04-04-2024 End: 04-04-[address] Anthony Mckeon MD -[facility] Work Phone: Start: 04-04-2024 End: 04-04-2024 ambulatory Anthony Mckeon Facility:[facility] Start: 04-04-2024 End: 04-04-2024 ambulatory Linda Amaya Facility:[facility] Start: 03-30-2024 End: 03-30-2024 Patient encounter procedure Mago COLEMAN [facility] Work Phone: Start: 03-30-2024 End: 03-30-2024 ambulatory Mago Macdonald Facility:[facility] Start: 03-25-2024 End: 03-29-2024 ambulatory SHAHLA LOZADA [employer] SUPERVISOR-UNARMED SECURITY OFFICER Facility:[facility] Start: 03-22-2024 End: 03-22-2024 Patient encounter procedure Mago COLEMAN -[facility] Work Phone: Start: 03-22-2024 End: 03-22-2024 ambulatory Angel Fuller Facility:[facility] Start: 03-17-[address] ANGEL FULLER MD [facility] ity:A Start: 03-17-2024 End: 03-17-[address] ANGEL FULLER MD Facility:[facility] Start: 03-17-2024 End: 03-17-2024 Patient encounter procedure THONGJAMES AGUILAR [employer] SUPERVISOR-UNARMED SECURITY OFFICER [facility] Start: 03-12-2024 End: 03-13-2024 Emergency department patient visit Dr. Christopher Baker-Nixon DO -Emergency Department Work Phone: Start: 03-06-2024 End: 03-06-2024 Patient encounter procedure Luis Daniel Son SSIS ETL DEVELOPER-C [facility] Work Phone: Start: 03-06-2024 End: 03-06-2024 ambulatory Angel Fuller Facility:[facility] Start: 03-04-2024 End: 03-07-2024 Telephone encounter Deyanira Mendez [employer] SUPERVISOR.UNARMED SECURITY OFFICER Work Phone: Hematology/Oncology Comment on above: Patient Update Start: 02-22-2024 End: 05-13-2024 Telephone encounter Baron Kevin Mammogram Comment on above: disk request Start: 02-19-2024 End: 02-19-[address] Cade Monroy MD -[facility] Work Phone: Start: 02-19-2024 End: 02-19-2024 ambulatory Angel Fuller Facility[facility] Start: 02-04-2024 End: 02-04-2024 ambulatory PRISCA COX Facility:[facility] Start: 02-04-2024 End: 02-04-2024 Subsequent hospital visit by physician Screen Mammo [facility] Comment on above: Encounter for screen ing mammogram for malignant neoplasm of breast [Z12.31] Start: 01-14-2024 End: 01-14-[address] Angel Fuller MD Work Phone: -[facility] Work Phone: Start: 01-14-2024 End: 01-14-2024 ambulatory Joe MARTIN Facility:[facility] Start: 01-13-2024 End: 01-13-2024 Telephone encounter Prisca Cox MD Work Phone: OB/Gynecology Comment on above: Orders Start: 12-08-2023 End: 12-12-[address] ANGEL FULLER MD Facility:[facility] Start: 11-12-2023 End: 11-12-2023 Telephone encounter Christine Gonzalez APRN.UNARMED SECURITY OFFICER Work Phone: OB/Gynecology Comment on above: Patient Question Start: 09-08-2023 End: 09-08-2023 Patient encounter procedure Prisca Cox MD Work Phone: OB/Gynecology Comment on above: Urinary frequency (P rimary Dx); Frequent UTI Start: 07-29-2023 Telephone encounter Deyanira naranjo APRN.UNARMED SECURITY OFFICER Work Phone: Hematology/Oncology Comment on above: Appointment Start: 06-24-2023 End: 06-24-[address] Angel Fuller Work Phone: [facility] Work Phone: Start: 06-24-2023 End: 06-24-[address] Angel Fuller Work Phone: [facility]-Pulmonary Services/Neurology Work Phone: Start: 06-17-2023 End: 06-17-[address] Angel Fuller Work Phone: [facility] Work Phone: Start: 06-17-2023 End: 06-17-[address] Angel Fuller Work Phone: [facility]-Cardiovascular Services Work Phone: Start: 06-13-2023 Telephone encounter Christine hazel APRN.UNARMED SECURITY OFFICER Work Phone: OB/Gynecology Comment on above: Results Start: 06-12-2023 Telephone encounter Christine hazel APRN.UNARMED SECURITY OFFICER Work Phone: OB/Gynecology Comment on above: Results Start: 06-11-2023 End: 06-11-2023 Patient encounter procedure Christine Gonzalez APRN.UNARMED SECURITY OFFICER Work Phone: OB/Gynecology Comment on above: Genitourinary syndro me of menopause (Primary Dx); Vaginal irritation; Urinary frequency; Screening for thyroid disorder; Hirsutism Start: 06-10-2023 End: 06-10-[address] Angel Fuller Work Phone: [facility] Work Phone: Start: 05-14-2023 End: 05-14-[address] Angel Fuller Work Phone: [facility] Work Phone: Start: 05-14-2023 End: 05-14-[address] Angel Fuller Work Phone: [facility] Work Phone: Start: 04-09-2023 End: 04-09-[address] Angel Fuller Work Phone: [facility] Work Phone: Start: 03-20-2023 End: 03-20-[address] Angel Fuller Work Phone: [facility] Work Phone: Start: 03-20-2023 End: 03-20-[address] Angel Fuller Work Phone: [facility]-Medical Out Work Phone: Start: 03-09-2023 End: 03-09-[address] Angel Fuller Work Phone: [facility] Work Phone: Start: 02-26-2023 End: 02-27-2023 ambulatory THONG AGUILAR APRN-LUPE Facility:A Start: 02-25-2023 End: 02-25-[address] Angel Fuller Work Phone: [facility] Work Phone: Start: 02-25-2023 End: 02-25-[address] Angel Fuller Work Phone: [facility] - [facility] Work Phone: Start: 02-24-2023 End: 02-24-[address] Angel Fuller Work Phone: [facility] Work Phone: Start: 02-24-2023 End: 02-24-[address] Angel Fuller Work Phone: [facility]-Laboratory Work Phone: Start: 02-19-2023 End: 02-19-[address] Angel Fuller Work Phone: [facility] Work Phone: Start: 02-04-2023 End: 02-04-[address] Angel Fuller Work Phone: [facility] Work Phone: Start: 02-02-2023 End: 02-02-2023 Subsequent hospital visit by physician Screen Mammo [facility] Mammogram Comment on above: Personal history of malignant neoplasm of breast [Z85.3] Start: 12-17-2022 Telephone encounter Prisca Cox MD Work Phone: OB/Gynecology Comment on above: Appointment Start: 11-21-2022 End: 11-21-2022 ambulatory Deyanira Mendez APRN.UNARMED SECURITY OFFICER Work Phone: Hematology/Oncology Comment on above: Personal history of malignant neoplasm of breast (Primary Dx); Encounter for screening mammogram for high-risk patient Start: 11-21-2022 End: 11-21-2022 Patient encounter procedure Deyanira Mendez APRN.UNARMED SECURITY OFFICER Work Phone: [facility] Start: 07-15-2022 End: 07-20-2022 ambulatory ILANA TAVAREZ MD Facility:A Start: 07-03-2022 Telephone encounter Adelaida eckert [employer] SUPERVISOR.UNARMED SECURITY OFFICER Work Phone: OB/Gynecology Comment on above: Results Start: 07-01-2022 End: 07-01-2022 Patient encounter procedure Prisca Cox MD Work Phone: OB/Gynecology Comment on above: Hematuria, unspecifi ed type (Primary Dx); Dysuria; Vaginal dryness; Abnormal facial hair; Low grade fever Start: 06-25-2022 End: 06-25-2022 Patient encounter procedure Olga Steinberg [employer]ANT SUPERVISOR.CNM Work Phone: OB/Gynecology Comment on above: Dysuria (Primary Dx) ; Vaginal burning Start: 05-30-2022 End: 05-31-2022 ambulatory NAHOMI PETERSON [employer] SUPERVISOR-UNARMED SECURITY OFFICER Facility:[facility] Start: 05-30-2022 End: 05-30-2022 Patient encounter procedure NAHOMI PETERSON [employer] SUPERVISOR-UNARMED SECURITY OFFICER [facility] Start: 05-22-2022 Telephone encounter Irena MIRANDA Hematology/Oncology Comment on above: Social Work Services Start: 05-07-2022 End: 05-07-2022 ambulatory Robert Weber DO Work Phone: Hematology/Oncology Comment on above: Fever, low grade (Pr imary Dx) Start: 05-07-2022 End: 05-07-2022 Patient encounter procedure Robert Weber DO Work Phone: [facility] Start: 05-06-2022 Orders Only Robert Weber [...] encounter procedure Robert Weber DO Work Phone: [facility] Start: 04-11-2022 Telephone encounter Robert caro [...] encounter procedure Robert Weber DO Work Phone: [facility] Start: 03-20-2022 Telephone encounter Deyanira Cha enter [employer] SUPERVISOR.UNARMED SECURITY OFFICER Work Phone: Hematology/Oncology Comment on above: Appointment Start: 03-18-2022 Telephone encounter Deyanira Cha enter [employer] SUPERVISOR.UNARMED SECURITY OFFICER Work Phone: Hematology/Oncology Comment on above: Future Appointment Start: 03-03-2022 End: 03-07-2022 Outreach Lab SHAHLA LOZADA [employer] SUPERVISOR-UNARMED SECURITY OFFICER [facility] Start: 02-26-2022 End: 02-26-2022 Patient encounter procedure THONG [facility]UILAR [employer] [facility] [facility] Start: 02-25-2022 End: 02-25-2022 Subsequent hospital visit by physician Ct [facility] (I-Stat) Work Phone: Cat Scan Start: 02-21-2022 Non-patient / Non-visit Dr. Gaming Work Phone: [facility] Start: 02-21-2022 End: 02-21-[address] Angel Fuller Work Phone: [facility] Work Phone: Start: 02-21-2022 End: 02-21-[address] Angel Fuller Work Phone: [facility] [facility] Start: 02-19-[address] Angel Fuller Work Phone: [facility]-Medical Out Start: 02-06-2022 End: 02-06-[address] Angel Fuller Work Phone: [facility] Work Phone: Start: 02-06-2022 End: 02-06-[address] Angel Fuller Work Phone: [facility] Endocrinology Start: 02-02-2022 Documentation procedure Mammog mei Coordinator [facility] Start: 02-02-2022 Letter encounter Mammography Coordinator [facility] Department Start: 01-31-2022 End: 01-31-2022 Subsequent hospital visit by physician Screen Mammo [facility] Mammogram Comment on above: Encounter for screen ing mammogram for malignant neoplasm of breast [Z12.31] Start: 01-23-2022 End: 01-23-2022 Subsequent hospital visit by physician [facility] Work Phone: Radiology Start: 12-26-2021 End: 12-26-2021 Patient encounter procedure Andres Vasquez MD Work Phone: OB/Gynecology Comment on above: Urinary urgency (Alethea lalo Dx); Dysuria Start: 12-26-2021 Telephone encounter Prisca Cox MD Work Phone: OB/Gynecology Comment on above: Patient Question Start: 07-30-2021 End: 07-30-2021 ambulatory Deyanira Mendez APRN.UNARMED SECURITY OFFICER Work Phone: Hematology/Oncology Comment on above: 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 Start: 07-24-2021 End: 07-24-[address] Angel Fuller Work Phone: [facility] Start: 07-17-2021 End: 07-17-[address] Angel Fuller Work Phone: [facility] Start: 07-12-2021 End: 07-12-2021 Patient encounter procedure Adriana Vasquez APRN.UNARMED SECURITY OFFICER Work Phone: [facility] Comment on above: Discoloration of ski n (Primary Dx) Start: 07-08-2021 End: 07-08-[address] Angel Fuller Work Phone: [facility] Start: 06-26-2021 Telephone encounter Prisca Cox MD Work Phone: OB/Gynecology Comment on above: Patient Question Start: 06-26-2021 End: 06-26-2021 Subsequent hospital visit by physician [facility] (I-Stat) Work Phone: Cat Scan Start: 06-10-2021 End: 06-10-2021 Emergency department patient visit Dr. Angel Fuller Work Phone: [facility]-Emergency Department Start: 06-03-2021 Non-patient / Non-visit Dr. Gaming Work Phone: [facility] Start: 06-03-2021 End: 06-03-[address] Angel Fuller Work Phone: [facility]-Pulmonary Services/Neurology Start: 06-01-2021 End: 06-01-2021 Patient encounter procedure Adriana James ELENA.UNARMED SECURITY OFFICER Work Phone: [facility] Comment on above: Cough (Primary Dx); Suspected COVID-19 virus infection Start: 05-15-2021 End: 05-15-[address] Angel Fuller Work Phone: [facility]-Laboratory, [place] Start: 04-01-2021 End: 04-01-[address] Angel Fuller Work Phone: [facility] [place] Start: 02-26-2021 End: 02-26-2021 Patient encounter procedure DONG BARBOSA [employer]OVATION PLANT SUPERVISOR-BORDER PATROL AGENT [facility]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 1(788) 851-752307-24-2025 Progress [facility] [address] [place] [address] OFFICE VISIT Date of Service: 11/17/24 MR#: [id number] Acct: [id number] Patient: KELLI MONROY Rep #: [id number] : 1950 Provider: Dr. Gabi Mckeon MD Age/Sex: 74/F Location[place] [facility] Status: Signed Intake Vital Signs 09/15/24 10:21 [...] Performing Provider: Anthony Mckeon MD Performing Location: [facility] Administered by: Corry Mckeon on 11/17/24 09:23 Dose Route Admin Location Dispensed Lot Number Expiration Date Pack age NDC NDC Can Worker 1,000 mcg IM left deltoid 1 mL [id number] 06/22/26 56790-560-41 [id number] [employer]OM[employer] Comments: The patient presents for [...] in the past year?: Yes 11/18/24 0910 gloria RETANA> Date _ Anthony Mckeon MD Cosigner Signature: Date (if applicable) CC: ~ [facility]06-06-2025 Evaluation note* Diagnosis Onset Date Resolution Status [...] 9:59am Fatigue acute October 17, 025 8:23am Osteoarthritis of right knee acute October 31, 2024 10:56am Arthritis acute October 12:59pm Burning mouth syndrome acute Se pt2024 12:59pm Fatigue acute October 12:59pm Fibromyalgia acute November 102024 12:59pm Polyneuropathy acute November 10, 2024 12:59pm Fatigue acute October 8:50am [facility] Work Phone: 1(906) 748-498006-06-2025 Evaluation note* Diagnosis Onset Date Resolution Status [...] September 15 9:59am Fatigue acute October 17, 8:23am Osteoarthritis of right knee acute October 31, 2024 10:56am Arthritis acute October 12:59pm Burning mouth syndrome acute 2024 12:59pm Fatigue acute October 12:59pm Fibromyalgia acute November 102024 12:59pm Polyneuropathy acute November 10, 2024 12:59pm Fatigue acute October 8:50am Osteoarthritis of right knee acute November 23, 2024 10:24am [facility] Work Phone: 1(872) 545-580806-06-2025 Progress [facility] [address] [place] [address] OFFICE VISIT Date of Service: 07/29/24 MR#: [id number] Acct: [id number] Name: KELLI MONROY Rep #: [id number] : 1950 Provider: Dr. Nato Moore, DO Age/Sex: 74/F Location[place] [facility] Status: Signed Intake Vital Signs 06/30/24 11:27 [...] (Fainted at doctor's office ) [facility] Medical History Episode of syncope Influenza B Acute pharyngitis Burn of right upper extremity Atherosclerosis of coronary artery of [place] heart without angina pectoris Fibromyalgia Menopausal hot [...] (mw 2.4-3.6 million) intra-articular syringe Performing Provider: eJovanny Moore DO Performing Location: [facility] Administered by: Jeovanny Moore DO on 07/29/24 11:19 Dose Route Admin Location Dispensed Lot Number Expiration Date NDC Can Worker 20 mg intra-articular Right Knee 2 mL [id number] 06/27/25 [address]-7 [employer] Supplemental Info 08/13/2023 x-ray right knee on disc from [facility] moderate medial joint space narrowing severe [...] 07/29/24 1127 o DO> Date _ Jeovanny Moore DO Cosigner Signature: Date (if applicable) CC: ~ [facility]05-30-2025 Evaluation note* Diagnosis Onset Date Resolution Status [...] 05, 2024 3:45pm Fibromyalgia acute September 07, 2 025 8:10am Osteoarthritis of right knee acute September 07, 2024 8:10am Polyneuropathy acute September 07, 2024 8:10am Fatigue acute September 15 9:59am Fatigue acute October 17 025 8:23am Osteoarthritis of right knee acute October 31, 2024 10:56am Arthritis acute October 12:59pm Burning mouth syndrome acute Se pt2024 12:59pm Fatigue acute October 12:59pm Fibromyalgia acute November 102024 12:59pm Polyneuropathy acute November 10, 2024 12:59pm [facility] Work Phone: 1([phone]) 525-751605-21-2025 Evaluation note* Diagnosis Onset Date Resolution Status [...] 9:59am Fatigue acute October 17 025 8:23am [facility] Work Phone: 1([phone]) 436-102805-20-2025 NoteHNO ID: [id number] Author: KARIE MEYER, DO Service: ? Author Type: Physician Type: Progress Notes Filed: 08/04/2024 11:41 Note Text: [facility] [place] DEPARTMENT OF VASCULAR SURGERY OUTPATIENT VISIT DATE [...] Problem Relation Age of Onset Heart Mother [place] Osteoporosis Mother Heart Father [place] Heart Sister bunddle block Hyperlipidemia Sister Hypertension [...] 5 mg/100 mL pgbk PREMIX piggyback Zoledronic Zubq-Npyasoib-Vlgwb Active 1 EACH .Route ONCE 100 February [...] visit. General: Alert, oriented, (more content not included)...[facility]05-20-2025 History of Present illness Narrative* Karie Meyer, - 07/12/2024 11:09 AM EDT Images from the original note were not included. [facility] [place] DEPARTMENT OF VASCULAR SURGERY OUTPATIENT VISIT DATE [...] wear compression regularly. PAIN ASSESSMENT: PAIN EVALUATION 07/07/2024813 Description: Burning;Dull;Numbness;Stiffness;Tightness;Tingling Duration Units: Hours Frequency: Continuous [...] Problem Relation Age of Onset Heart Mother [place] Osteoporosis Mother Heart Father [place] Heart Sister bunddle block Hyperlipidemia Sister Hypertension [...] 5 mg/100 mL pgbk PREMIX piggyback Zoledronic Wmwf-Vmyksppy-Sjbkc Active 1EACH .Route ONCE 100 February 07, [...] 2024 TIME: 11:09 AM [facility] Evaluation note* Diagnosis Onset Date Resolution Status [...] 30, 2024 10:57am Fibromyalgia acute September 05 025 3:45pm Osteoarthritis of right knee acute September 05, 2024 3:45pm Polyneuropathy acute September 05, 2024 3:45pm Fibromyalgia acute September 07 025 8:10am Osteoarthritis of right knee acute September 07, 2024 8:10am Polyneuropathy acute September 07, 2024 8:10am Fatigue acute September 15 9:59am Fatigue acute October 17 025 8:23am [facility] Work Phone: 1(259) 489-700804-17-2025 Evaluation note* Diagnosis Onset Date Resolution Status [...] 8:10am Polyneuropathy acute September 07, 2024 8:10am [facility] Work Phone: [phone]) 433-6208995224-26-6611 Telephone encounter Note* Telephone Encounter - Twila Gandara RN - 06/03/2024 4:44 PM EDT Spoke with patient advised she should get new compression if she has not had new ones since 2019. She should also be measured. She would like to re-establish with , schedule appt 07/12/24 [facility]04-11-2025 Miscellaneous Notes* Telephone Encounter - Twila Gandara RN - 06/03/2024 4:44 PM EDT Spoke with patient advised she should get new compression if she has not had new ones since 2019. She should also be measured. She would like to re-establish with , schedule appt 07/12/24 * Telephone Encounter - Clifford [...] upwith us as needed. documented in this encounter[facility] Telephone encounter Note * Telephone Encounter - [...] is to follow upwith us as needed. [facility]03-25-2025 Procedure note [facility] Pulmonary Services/Neurology [address] [place] [address] MR#: [id number] Acct: [id number] Name: KELLI MONROY Rep #:[id number] : 1950 74 From: Tory Puentes MD [...] Multi Select Codes Neurology Neurology Interp Codes: 25757-04 Musc test done w/n test comp (interp) (2) and 62249-95 Nrv cndj test 7-8 studies (interp) 05/17/24 1345 MD> Date _ Tory Puentes MD CC: Dr. Tory Puentes MD; Dr. Anthony Mckeon MD; Dr. Angel Fuller MD ~ Date Dictated: 05/17/24 1325 Date Transcribed: 05/17/241324 System Dispatcher: Signed [facility]03-19-2025 Procedure note [facility] Pulmonary Services/Neurology [address] [place] [address] MR#: [id number] Acct: [id number] Name: KELLI MONROY Rep #:[id number] : 1950 74 From: Shakeel Spears MD Referring Dr: Anthony Mckeon MD atus: REG CLI Location: [facility] Date: 05/11/24 [...] Multi Select Codes Neurology Neurology Interp Codes: 09513-18 Musc test done w/n test comp (interp) (2) and 11344-81 Nrv cndj test 9-10 studies (interp) 05/11/24 1423 D> Date _ Shakeel Spears MD CC: Dr. Shakeel Spears MD; Dr. Anthony Mckeon MD; Dr. Angel Fuller MD ~ Date Dictated: 05/11/241419 Date Transcribed: 05/11/241419 System Dispatcher: NIDHI Echevarria [facility]03-18-2025 Evaluation note* Diagnosis Onset Date [...] 10:57am Polyneuropathy acute August 30, 2024 10:57am [facility] Work Phone: 1(365) 634-416903-18-2025 Evaluation note* Diagnosis Onset Date Resolution Status [...] 3:45pm Polyneuropathy acute September 05, 2024 3:45pm [facility] Work Phone: 1([phone]) 746-779503-10-2025 Evaluation note* Diagnosis Onset Date Resolution Status Admit Date Cervical radiculopathy acute [facility] 2024 9:25am Fatigue acute May 10 10:33am [...] right knee acute July 29, 2024 11:07am [facility] Work Phone: 1([phone]) 115-894903-10-2025 Evaluation note* Diagnosis Onset Date Resolution Status Admit Date Cervical radiculopathy acute [facility] 2024 9:25am Fatigue acute May 10 10:33am [...] 9:40am Anemia acute August 30, 2024 10:57am [facility] Work Phone: 1([phone]) 901-927102-24-2025 Radiology Diagnostic study note [facility] Imaging Services [address] [place] [address] Sacrum-Coccyx min 2 Views MR#: [id number] Acct: [id number] Name: KELLI MONROY Rep #: [id number] : 1950 F 74 From: Karina Sultana MD PCP: Dr. Angel Fuller MD Status: REG CLI Study:Sacrum-Coccyx min 2 Views Date of Exam: 04/18/24 Exam# [id number] Ordering Dr: SHAHLA GUPTA EXAM: XR Sacrum and Coccyx, 2 or more Views CLINICAL INDICATION: TECHNIQUE: Frontal and lateral views of the sacrum and coccyx. COMPARISON: No relevant prior studies available. FINDINGS: SACRUM/COCCYX: Degenerative changes of the sacroiliac joints, bilaterally. No acute fracture. VERTEBRAE: No acute fracture. DISC SPACES: Ecjx-yr-wxdxwpyq degenerative changes of the pubic symphysis. SOFT TISSUES: Unremarkable. GASTROINTESTINAL TRACT: Fecal retention in the colon consistent with constipation. RAD/Sacrum-Coccyx min 2 Views IMPRESSION: 1. No acute fracture. 2. Fecal retention in the colon consistent with constipation. 3. Degenerative changes as above. Reading Location[facility] CC: Dr. Angel Fuller MD; SHAHLA KEATING ~ System Dispatcher: Signed [facility]02-10-2025 Evaluation note* Diagnosis Onset Date [...] B acute March 11:52am Cervical radiculopathy acute [facility] 2024 9:25am Fatigue acute May 10 10:33am [...] 10:27am Fatigue acute July 14, 2024 10:38am [facility] Work Phone: 1([phone]) 799-223702-10-2025 Evaluation note* Diagnosis Onset Date Resolution Status [...] B acute March 11:52am Cervical radiculopathy acute [facility] 2024 9:25am Fatigue acute May 10 10:33am [...] right knee acute July 29, 2024 11:07am [facility] Work Phone: [phone]) 230-331501-28-2025 Evaluation note* Diagnosis Onset Date Resolution Status Admit Date Cervical radiculopathy acute [facility] [...] B acute March 11:52am Cervical radiculopathy acute [facility] 2024 9:25am Fatigue acute May 10 10:33am Fatigue acute June 09 1:06pm Osteoarthritis of right knee acute June 24, 2024 9:26am Arthritis acute June 30, 2024 11:27am Burning mouth syndrome acute [facility] 2024 11:27am Dry mouth acute June 30, 2024 11:27am Fatigue acute June 30, 2024 11:27am Fibromyalgia acute June 30 11:27am Neck pain acute June 30, 2024 11:27am Polyneuropathy acute June 30, 025 11:27am [facility] Work Phone: [phone]) 604-439701-28-2025 Evaluation note* Diagnosis Onset Date Resolution Status Admit Date Cervical radiculopathy acute [facility] [...] acute March 11:52am Cervical radiculopathy acute [facility] 2024 9:25am Fatigue acute May 10 10:33am [...] right knee acute July 13, 2024 10:27am [facility] Work Phone: [phone] Telephone encounter Note* Telephone Encounter - Charlotte Murillo LPN - 03/07/2024 8:47 AM EST Pt advised and voices understanding. Charlotte Murillo LPN [facility]01-13-2025 Miscellaneous Notes* Telephone Encounter - Charlotte Murillo LPN - 03/07/2024 8:47 AM EST Pt advised and voices understanding. Charlotte Murillo LPN * Telephone Encounter - Deyanira Mendez APRN.LUPE - 03/07/2024 8:23 AM EST Please advise pt. to follow up with PCP/derm. Thank you. Deyanira Mendez APRN.UNARMED SECURITY OFFICER * Telephone Encounter - Yelitza Bartlett LPN - 03/04/2024 3:01 PM EST Patient contacted office c/o excessive sweating to bilateral axilla and under both breasts. Patientstates this has been ongoing for about 1 year. She saw her legal summer intern and was given prescriptiondeodorant which has helped somewhat but she is still having issues and states still has sweating/dampness under both arms and breasts. Asking if radiation has caused this. Patient completed radiationin 2016. Requested appointment with Deyanira for this issue. I advised patient to contact her legal summer intern again. Informed patient I would ask Deyanira and renetta patterson about this as well. Yelitza Bartlett LPN documented in [facility] encounter[facility] Telephone encounter Note * Telephone Encounter - Deyanira Mendez APRN.CNP - 03/07/2024 8:23 AM EST Please advise pt. to follow up with PCP/derm. Thank you. Deyanira Mendez APRN.UNARMED SECURITY OFFICER [facility]01-10-2025 Telephone encounter Note* Telephone Encounter - Yelitza Bartlett LPN - 03/04/2024 3:01 PM EST Patient contacted office c/o excessive sweating to bilateral axilla and under both breasts. Patientstates this has been ongoing for about 1 year. She saw her legal summer intern and was given prescriptiondeodorant which has helped somewhat but she is still having issues and states still has sweating/dampness under both arms and breasts. Asking if radiation has caused this. Patient completed radiationin 2016. Requested appointment with Deyanira for this issue. I advised patient to contact her legal summer intern again. Informed patient I would ask Deyanira and renetta patterson about this as well. Yelitza Bartlett LPN [facility]12-30-2024 Telephone encounter Note* Telephone Encounter - Baron Kevin PSS - 02/22/2024 1:37 PM EST CD READY FOR YARN SALVAG[facility] AT [facility] RAD[facility]12-30-2024 Miscellaneous Notes* Telephone Encounter - Baron Kevin PSS - 02/22/2024 1:37 PM EST CD READY FOR YARN SALVAGER AT [facility] RAD[facility] * Telephone Encounter - Mandy Fuentes - 02/22/2024 10:59 AM EST Patient is calling requesting Mammo from 02/04/2024 copied to a disk. documented in this encounterBl[facility]12-[facility] Telephone encounter Note * Telephone Encounter - Mandy Fuentes - 02/22/2024 10:59 AM EST Patient is calling requesting Mammo from 02/04/2024 copied to a disk. [facility]12-27-2024 Evaluation note* Diagnosis Onset Date Resolution Status Admit Date Osteoporosis chronic January 3:03pm URI (upper respiratory infection) acute March 06 1:02pm Cervical radiculopathy acute Ja 2024 2:16pm Degenerative disc disease, cervical acute [...] 2024 11:52am Influenza B acute March 11:52am [facility] Work Phone: 1([phone]) 660-909112-27-2024 Evaluation note* Diagnosis Onset Date Resolution Status [...] B acute March 11:52am Cervical radiculopathy acute [facility] 2024 9:25am Fatigue acute May 10 10:33am [facility] [facility] Work Phone: 1(702) 151-575712-12-2024 History of Present illness Narrative* Ricardo Baker [...] PATIENT PRESENTS WITH AN IMPLANTABLE OR ATTACHED HANDKERCHIEF PRESSER: No RADIOLOGY DEPARTMENT: Mammography PERIPHERAL IV DATA: Not applicable SIGNED BY: Gregorio Marcano February 04, 2024 11:22 AM documented in this encounterBlanchard Valley [facility]12-12-2024 NoteHNO ID: [id number] Author: RICARDO BAKER Mammo Tech Service: ? Author Type: Parts Data Writer Type: Progress Notes Filed: 02/04/2024 11:22 Note [...] PATIENT PRESENTS WITH AN IMPLANTABLE OR ATTACHED HANDKERCHIEF PRESSER: No RADIOLOGY DEPARTMENT: Mammography PERIPHERAL IV DATA: Not applicable SIGNED BY: Gregorio Marcano February 04, 2024 11:22 [facility]11-20-2024 Telephone encounter Note* Telephone Encounter - Erin Olguin RN - 01/13/2024 12:06 PM EST Patient notified. Transferred to [facility] to schedule mammogram. Erin Olguin RN [facility]11-20-2024 Miscellaneous Notes* Telephone Encounter - Erin Olguin RN - 01/13/2024 12:06 PM EST Patient notified. Transferred to [facility] to schedule mammogram. Erin Olguin RN [...] Medicare). Erin Olguin RN documented in this encounterBlanchard Valley [facility]11-20-2024 Telephone encounter Note * Telephone Encounter - Prisca Rivera MD - 01/13/2024 12:02 PM EST Only if she wants to be seen - had hysterectomy so unless complaints it is up to her. [facility] Work Phone: 1(294) 153-178311-20-2024 Telephone encounter Note* Telephone Encounter - Erin Olguin RN - 01/13/2024 11:08 AM EST Patient called needing Mamm with MIC order. Please file. Patient has not had a yearly since 01/28/21. Only seen for problem visit. Patient asking if DM would still like her seen for annual (every 2 years with Medicare). Erin Olguin RN [facility]09-19-2024 Telephone encounter Note* Telephone Encounter - Nikia Clifford RN - 11/12/2023 3:43 PM EDT Faxed updated diagnosis to billing dept. Patient notified. Nikia Clifford RN [facility]09-19-2024 Miscellaneous Notes* Telephone Encounter - Nikia Clifford [...] labs? Patient thinks her secondary coverage should medicinal plant picker the remainder of the bill, but just in case it doesn't. Nikia Clifford RN documented in this encounterBlanchard Valley [facility]09-19-2024 Telephone encounter Note * Telephone Encounter - Christine Gonzalez APRN.CNP - 11/12/2023 3:10 PM EDT Impaired Swallowing code added on visit. Christine Gonzalez APRN.CNP [facility] Work Phone: [phone] Telephone encounter Note* Telephone Encounter - Nikia [...] labs? Patient thinks her secondary coverage should medicinal plant picker the remainder of the bill, but just in case it doesn't. Nikia Clifford RN [facility]07-16-2024 History of Present illness Narrative* Prisca Rivera MD - 09/08/2023 11:38 AM EDT Director Of Supply Chain offered: Patient declines. Kelli Monroy is a [...] L3 SAB0 IAB0 Ectopic0 Multiple0 Live Births0 Composition Siding Worker History LMP: Postmenopausal Age at Menarche: Age at First : Age at Menopause: Composition Siding Worker History Comments: Sexual Activity: Not Currently; No [...] Problem Relation Age of Onset Heart Mother [place] Osteoporosis Mother Heart Father [place] Heart Sister bunddle block Hyperlipidemia Sister Hypertension [...] 5 mg/100 mL pgbk PREMIX piggyback Zoledronic Jktl-Luoazten-Ltajj Active 1EACH .Route ONCE 100 February 07, 2021 11:08am onceinfuse over 20 minutes (Patient not taking: Reported on 09/08/2023) No current facility-administered medications for this visit. Allergies As of Date: 09/08/2023 Allergen Noted Reaction DULOXETINE 09/14/2019 Rash Fully Assessed 09/08/2023 REVIEW OF SYSTEMS Abdomen: no pain Bladder: see hpi . Expanded ROS: no fever "always with low grade temp" Allergies and current medication updated:No EXAM: BP 144/82 Wt 157 lb (71.2kg) GENERAL: pleasant, female in no apparent distress HEENT: Normocephalic and atraumatic NECK: full range of motion NEURO: alert and oriented x3,exam grossly non-focal EXTREMITIES: normal ASSESSMENT AND PLAN: Encounter Diagnosis ICD-10-CM 1. Urinary frequency R35.0 URINE CULTURE 2. Frequent UTI N39.0 . Reviewed labs from other "holistic" provider- + E. Coli culture in July Urine dip today- negative but has Small LE will send culture . Reviewed UTI prevention with D- mannose as possibility will see what culture shows Recent UTI with K. Pneumonia in reviewed as well. I spent a total of 20 minutes on the date of the service which included preparing to see the patient, wyyc-ri-hanj patient care, completing clinical documentation, obtaining and/or reviewing separately obtained history, performing a medically appropriate examination, counseling and educating the pat ient/family/caregiver, and ordering medications, tests, or procedures. Prisca Latham MD documented in this encounterBlanchard Valley [facility]06-05-2024 Telephone encounter Note * Telephone Encounter - Twila Ely - 07/29/2023 1:57 PM EDT Appointment canceled. Patient informed. [facility] Work Phone: [phone]) [phone] Miscellaneous Notes* Telephone Encounter - Twila Ely [...] you Yelitza Bartlett LPN documented in this encounterBlanchard Valley [facility]06-05-2024 Telephone encounter Note * Telephone Encounter - Yelitza Bartlett LPN - 07/29/2023 1:50 PM EDT PSS- please contact patient to cancel tomorrow's appointment. Patient completed radiation in 2017 of her right breast, not her throat and shoulders, where she complains of burning. Provider recommends patient contact her PCP for these complaints. Thank you Yelitza Bartlett LPN [facility]04-19-2024 Miscellaneous Notes* Telephone Encounter - Brunilda Min LPN - 06/12/2023 9:02 AM EDT Pt notified and voiced understanding and will check at the pharmacy. Brunilda Min LPN' * Telephone Encounter - Christine Gonzalez APRN.CNP - 06/12/2023 8:54 AM EDT [...] off on that for now. Pt uses [facility].Call only if problems. Brunilda Min [...] with nonhormonal options, I recommend Relizen from [facility] or the moisturizers/lubricants I included in checkout instructions. Thyroid labs are WNL. Can place consult to endocrinology if she would like. Recommend follow up with PCP about the new swallowing sensation she discussed with me. Christine Gonzalez APRN.CNP documented in this encounterBlanchard Valley Health [facility]04-18-2024 Instructions* Patient Instructions* Christine Gonzalez APRN.CNP - [...] some patients. Lubricants and moisturizers list The vnel-cpo-nubyybi vaginal moisturizer and lubricant products can be [...] in any drugstore or online. Also, many [employer] stores do carry high-quality lubricant products. VAGINAL [...] lube Replens Silky Smooth Pulse Aloe-ahh Wet [place] ZHANNA Premium Personal Lubricant PINK Silicone Lubricant [...] vaginal moisturizer makes them feel more comfortable. Steamblaster beware: many lubricants arelabeled as moisturizers to [...] also be applied externally for comfort. [place] Aloe [place]: Many people are allergic to aloe, so [...] of symptoms of vaginal atrophy and the congregational of the vagina's epithelial lining and pH -- hormone free. In yfpy-ki-laof clinical trials, Revaree performed as well as [...] to use hormone therapy. documented in this encounterBlanchard Valley [facility]04-18-2024 History of Present illness Narrative* Christine Gonzalez APRN.CNP - 06/11/2023 10:44 AM EDT Director Of Supply Chain offered: Patient declines. Kelli Monroy is a [...] been seen by endocrinology before outside of [facility] that informed her that hormone levels were normal. She would like her thyroid checked - reports a new feeling with swallowing. No vaginal bleeding. Some urinary frequency. OB History T0 L3 SAB0 IAB0 Ectopic0 Multiple0 Live Births0 Composition Siding Worker History LMP: Postmenopausal Age at Menarche: Age at First : Age at Menopause: Composition Siding Worker History Comments: Sexual Activity: Not Currently; No [...] Problem Relation Age of Onset Heart Mother [place] Osteoporosis Mother Heart Father [place] Heart Sister bunddle block Hyperlipidemia Sister Hypertension [...] 5 mg/100 mL pgbk PREMIX piggyback Zoledronic Pwla-Zasklvfj-Qmotx Active 1EACH .Route ONCE 100 February 07, [...] Assessed 05/22/2023 REVIEW OF SYSTEMS. Expanded ROS: CATARACT LENS GENERATOR: Positive for vaginal irritation Allergies and current [...] inspiratory effort PELVIC: normal Bartholin's glands, urethra, [place]'s glands, no vulvar lesions, + cervix surgically [...] ICD10: L68.0 - Consider second opinion from [facility] workers' compensation magistrate. - Patient to notify if she would like to proceed with consult Christine Gonzalez APRN.LUPE I spent a total of 30 minutes on the date of the service which included preparing to see the patient, golh-bh-upqq patient care, completing clinical documentation, performing a medically appropriate examination, counseling and educating the patient/family/caregiver, ordering medications, tests, or p rocedures, communicating with other HCPs (not separately reported), and communicating results to the patient/family/caregiver. documented in this encounterBlanchard Valley [facility]12-11-2023 History of Present illness Narrative* Ricardo Baker Mammo Chris - 02/02/2023 11:30 AM EST Radiology Service [...] PERIPHERAL IV DATA: Not applicable SIGNED BY: Ricardo Baker Educanono Chris February 02, 2023 11:32 AM documented in this encounterBlanchard Valley [facility]10-26-2023 Miscellaneous Notes* Telephone Encounter - Brunilda [...] advise. Nikia Clifford RN documented in this encounterBlanchard Valley [facility]09-29-2023 History of Present illness Narrative* Deyanira Mendez APRN.UNARMED SECURITY OFFICER - 11/21/2022 12:50 PM EDT Chief Complaint Patient presents with: Established Patient HPI: Kelli Monroy is a 72 year old female who presents here today for follow up breast cancer. Per Dr. Wbeer's previous note: H/o CAD (mild by CT), hyperparathyroidism, breast cancer, GERD, hypercholesterolemia, osteopenia (receives annual zoledronic acid infusion at her workers' compensation magistrate office), osteoarthritis, migraine headache and mitral valve [...] prior to surgery. She believes they were "negative". Patient underwent a successful lumpectomy and sentinel [...] dilation. Liver demonstrated no mass. Echocardiogram at [facility] 02/21/2022: Left ventricular systolic function [...] fevers and fatigue for about a year. Reel Assembler temperatures from 03/26 through eMacs of 99.8 on 03/29 and a Tmax of 100.3 on 03/31 at 8:30 in the morning and then 100.1 at 11 AM on 04/01. Pt. was seen by ID recently for FUO. Labs pending from that visit. All other specialist visits-work ups have been negative. No new concerns today. Appetite:"Good." Wt. stable. Energy level:"It's getting better. I started on B12." Denies recent illness. Resp:occ. cough, denies sob [...] (97.5 F) (Temporal) Ht 161.9 cm (5' 3.75") Wt 68.5 kg (151 lb) SpO2 99% [...] ICD10: Z85.3 (primary diagnosis) pT1b pN0 Mx ER/KS positive, HER2 negative stage IA invasive ductal [...] visit. Deyanira Mendez APRN.CNP documented in this encounterBlanchard Valley [facility]05-11-2023 Miscellaneous Notes* Telephone Encounter - Brunilda Min LPN - 07/03/2022 10:16 AM EDT Pt notified of results, all questions answered no further concerns. Brunilda Min LPN' * Telephone Encounter - Adelaida Brink APRN.CNP - 07/03/2022 9:34 AM EDT DM pt Please let the pt know that her urine culture is negative for infection. Adelaida Brink APRN.CNP documented in this encounterBlanchard Valley [facility]05-09-2023 History of Present illness Narrative* Prisca Cox MD - 07/01/2022 3:01 PM EDT Director Of Supply Chain offered: Patient declines. Kelli Monroy is a [...] L3 SAB0 IAB0 Ectopic0 Multiple0 Live Births0 Composition Siding Worker History LMP: Postmenopausal Age at Menarche: Age at First : Age at Menopause: Composition Siding Worker History Comments: Sexual Activity: Not Currently; No [...] Problem Relation Age of Onset Heart Mother [place] Osteoporosis Mother Heart Father [place] Heart Sister bunddle block Hyperlipidemia Sister Hypertension [...] 5 mg/100 mL pgbk PREMIX piggyback Zoledronic Zrje-Gafetryy-Orusw Active 1EACH .Route ONCE 100 February 07, [...] which included preparing to see the patient, nupd-py-grvo patient care, completing clinical documentation, obtaining and/or reviewing separately obtained history, performing a medically appropriate examination, counseling and educating the pat ient/family/caregiver, and ordering medications, tests, or procedures Medical Decision Making: Medical Decision Making Level: 1 - N/A Prisca Latham MD documented in this encounterBlanchard Valley [facility]05-03-2023 Instructions* Patient Instructions* Olga Steinberg APRN.CNM - [...] penis or fingers just before sex. Coconut, Jasper, Avocado or Peanut oil- natural oils are [...] are available in pharmacies and online. Restore[employer] Replens Stan Feminease Moist Again K-Y Liquid beads Products to assist with maintaining vaginal ph IsoFresh www.[employer] BiopHresh Rephresh documented in this encounterBlanchard Valley Health [facility]05-03-2023 History of Present illness Narrative* Olga Steinberg APRN.CNM - 06/25/2022 10:25 AM EDT Kelli Monroy is a 72 year old female who presents for vaginal burning for 2 days. Some pain with urinating. Hx of UTI's and "didn't know she had therm". Stated urine has strong odor. Vaginal dryness. [...] plans Olga Steinberg APRN.CNM documented in this encounterBlanchard Valley Health [facility]03-30-2023 Miscellaneous Notes* Telephone Encounter - RUTH [...] and reports she is planning to call [facility] this afternoon to schedule a consult [...] Assessment Completed RUTH Caruso-S documented in this encounterBlanchard Valley [facility]03-15-2023 Miscellaneous Notes* Addendum Note - Charlotte Murillo LPN - 05/07/2022 2:29 PM EDTAddended by: CHARLOTTE MURILLO LPN on: 05/07/2022 02:29 PM Modules accepted: Orders documented in this encounterBlanchard Valley Health [facility]03-15-2023 Procedure note* Robert Weber DO - 05/07/2022 2:19 PM EDTAssociated Order(s): BONE MARROW BIOPSY Post-Procedure Diagnose(s): Fever, low grade BEDSIDE PROCEDURE NOTE BONE MARROW BIOPSY Performed by: Robert Weber DO Authorized by: Robert Weber DO Informed Consent Consent Obtained: Written [place] Protocol A moment to CARE was completed. SIGN IN Personnel directly involved with the procedure wore the appropriate PPE. Special Equipment: Yes (ARKeX biopsy system) Patient/Surrogate Stated/Verified: Patient name, Date [...] Site: Right posterior sperior iliac crest . ARKeX biopsy system was used. Using aseptic technique, [...] 2022 TIME: 2:19 PM documented in this encounterBlanchard Valley [facility]03-15-2023 Nurse Note* Charlotte Murillo LPN - 05/07/2022 2:15 PM EDT Pt discharged to home with niece [place] after BMBX with dry sterile dressing in place. No drainage noted. Post-procedure care reviewed with patient. Pt to call with any complaints of redness, swelling, increased or unresolved pain, bleeding, chills, bruising, and/or fever. Pt verbalized understanding. Charlotte Murillo LPN documented in this encounterBlanchard Valley [facility]02-27-2023 Miscellaneous Notes* Telephone Encounter - Charlotte Murillo LPN - 04/21/2022 3:17 PM EST reviewed percocet and ativan prior to procedure. Discussed what to wear. Charlotte Murillo LPN * Telephone Encounter - Mandy Wagner Pss - 04/21/2022 3:00 PM EST Please call patient in regards to medication questions prior to bone biopsy on 05/07 documented in this encounterBlanchard Valley [facility]02-20-2023 Miscellaneous Notes* Telephone Encounter - Kari [...] calls in please warm transfer her to [facility] Pss Thank you! 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 HPI: The patient is a 72-year-old female with a past medical history significant for CAD (mild by CT), hyperparathyroidism, breast cancer, GERD, hypercholesterolemia, osteopenia (receives annual zoledronic acid infusion at her workers' compensation magistrate office), osteoarthritis, migraine headache and mitral valve [...] prior to surgery. She believes they were "negative". Patient underwent a successful lumpectomy and sentinel [...] dilation. Liver demonstrated no mass. Echocardiogram at [facility] 02/21/2022: Left ventricular systolic function [...] fevers and fatigue for about a year. Reel Assembler temperatures from 03/26 through eMacs of 99.8 [...] blood tinged. Has CT sinuses scheduled at [facility]. Resp: Daily dry cough. Denies wheeze [...] intolerance. Musculoskeletal: Right knee pain--has been told "bone on bone" and needs TKR. Chronic back pain. Has received epidural injections. On gabapentin for back pain--several months. Derm: Denies current rash. Denies jaundice and diffuse pruritis. Heme: Denies unusual bleeding and unexplained bruising. Psych: Normal mood. PHYSICAL EXAM: Vitals: Blood pressure 148/82, pulse 76, temperature 36.2 C (97.2 F), weight 71.2 kg (157 lb), [id number] %. Well-appearing and in no acute distress. [...] lower extremity varicosities. BREAST: Nurse acted as filament shaper. Fine transverse scar central upper right breast. No concerning mass or nodule. Left breast exam no concerning mass or nodule. ABDOMEN: The abdomen is nondistended. No organomegaly. No tenderness. Extremities: She has mild symmetric swelling without pitting edema. SKIN: No jaundice or rash. No petechiae. NEUROLOGIC: cutter and edge trimmer II-XII are grossly intact. LABORATORY DATA: Component [...] Abs Lymph 1.00 - 4.00 k/uL 1.26 Traverse% % 12.0 Abs Traverse <0.87 k/uL 0.83 Eosin% % 0.7 Abs [...] last checked 03/2021. I verified this through [facility] electronic record. ASSESSMENT/PLAN: (R50.9) Fever, [...] axillary sweating and fatigue. -pT1b pN0 Mx ER/KS positive, HER2 negative stage IA invasive ductal [...] procedure. Instructed her she will need a package car driver. Also advised her to avoid aspirin [...] care. Robert Weber DO documented in this encounterBlanchard Valley [facility]02-13-2023 Miscellaneous Notes* Telephone Encounter - Robert Weber DO - 04/07/2022 10:47 AM EST Noted. Thank you. Robert Weber DO * Telephone Encounter - Mandy Person RN - 04/07/2022 10:22 AM EST Patient calling to update Dr. Weber that she had her CT scan completed at [facility] 04/01/22 and the results were to be faxed to Dr. Weber's office. Pt calling to ensure that Dr. Weber's office did receive it. Pt states if it was not received, that Dr. Weber should be able to access the record through [facility]. Pt states she will be calling [...] that she had the CT scan at [facility] last week on 04/01/22, the same [...] has the CT of the sinuses at [facility] and hearsfrom Dr. Mckenna what his plan is since she may have a low-grade chronic sinusitis causing her low-grade fevers. If that is not the case, then we can consider proceeding with bone marrow biopsy. Robert Weber DO documented in this encounterBlanchard Valley [facility]02-10-2023 Miscellaneous Notes* Telephone Encounter - Baron Kevin PSS - 04/04/2022 3:50 PM EST CD/report READY FOR [facility] AT [facility] RADIOLOGY * Telephone Encounter - Twila John Pss - 04/04/2022 11:33 AM EST Patient called requesting disk and report of 04/03 whole body bone scan. 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 documented in this encounterBlanchard Valley Health [facility]02-09-2023 History of Present illness Narrative* Valarie [...] radiation safety can be found usingthis link: [email or web address] SIGNATURE: AURELIA Hartman PATIENT NAME: Kelli Monroy DATE: April 03, 2022 TIME: 11:05 AM PAGER/CONTACT #: documented in this encounterBlanchard Valley [facility]02-08-2023 Miscellaneous Notes* Telephone Encounter - Kari Esquivel RN - 04/02/2022 12:53 PM EST Pt notified. * Telephone Encounter - Robert Weber DO - 04/02/2022 12:40 PM EST Can let her know the ultrasound of her legs showed no evidence of blood clots. 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 HPI: The patient is a 72-year-old female with a past medical history significant for CAD (mild by CT), hyperparathyroidism, breast cancer, GERD, hypercholesterolemia, osteopenia (receives annual zoledronic acid infusion at her workers' compensation magistrate office), osteoarthritis, migraine headache and mitral valve [...] prior to surgery. She believes they were "negative". Patient underwent a successful lumpectomy and sentinel [...] dilation. Liver demonstrated no mass. Echocardiogram at [facility] 02/21/2022: Left ventricular systolic function [...] fevers and fatigue for about a year. Reel Assembler temperatures from 03/26 through eMacs of 99.8 [...] blood tinged. Has CT sinuses scheduled at [facility]. Resp: Daily dry cough. Denies wheeze [...] intolerance. Musculoskeletal: Right knee pain--has been told "bone on bone" and needs TKR. Chronic back pain. Has received epidural injections. On gabapentin for back pain--several months. Derm: Denies current rash. Denies jaundice and diffuse pruritis. Heme: Denies unusual bleeding and unexplained bruising. Psych: Normal mood. PHYSICAL EXAM: Vitals: Blood pressure 143/86, pulse 87, temperature 36.6 C (97.9 F), height 163 cm (5' 4.17"), weight 71.4 kg (157 lb 8 oz), [...] lower extremity varicosities. BREAST: Nurse acted as filament shaper. Fine transverse scar central upper right breast. No concerning mass or nodule. Left breast exam no concerning mass or nodule. ABDOMEN: The abdomen is nondistended. No organomegaly. No tenderness. Extremities: She has mild symmetric swelling without pitting edema. SKIN: No jaundice or rash. No petechiae. NEUROLOGIC: cutter and edge trimmer II-XII are grossly intact. LABORATORY DATA: Component [...] last checked 03/2021. I verified this through [facility] electronic record. ASSESSMENT/PLAN: (R50.9) Fever, [...] axillary sweating and fatigue. -pT1b pN0 Mx ER/KS positive, HER2 negative stage IA invasive ductal [...] scheduled for CT of the sinuses at [facility] as ordered by her ENT [...] which included preparing to see the patient, clvm-tm-oteo patient care, completing clinical documentation, obtaining and/or reviewing separately obtained history, performing a medically appropriate examination, counseling and educating the pat ient/family/caregiver, ordering medications, tests, or procedures, independently interpreting results (not separately reported), communicating results to the patient/family/caregiver, and care coordination (not separately reported). Robert Weber DO documented in this encounterBl[facility]23 Miscellaneous Notes* Telephone Encounter - Angela Crawford - 03/21/2022 11:15 AM EST Patient called back and confirmed understanding of appointment time change. * Telephone Encounter - Bailey Marquez - 03/20/2022 3:50 PM EST 1st attempt: MC sent to inform pt of apt time change due to providers schedule changes documented in this encounterBlanchard [facility]01-24-2023 Miscellaneous Notes* Telephone Encounter - Corry [...] 5 years ago. Thank you. Deyanira Mendez APRN.UNARMED SECURITY OFFICER * Telephone Encounter - Erin Rebecca - 03/18/2022 10:17 AM EST Pt would like to discuss possible treatment again. She has had low grade fever for the last few months. No known reason for it. documented in this encounterBlanchard [facility]01-03-2023 History of Present illness Narrative* Brunilda Daugherty, [...] 2022 TIME: 3:39 PM documented in this encounterBlanchard [facility]12-11-2022 Miscellaneous Notes* Letter - Mammography Coordinator - 02/02/2022 5:44 AM EST February 02, 2022 PID: [id number] Kelli Monroy [address] [address] Dear Fiona , We are pleased to inform you that [...] report will be kept on file at [facility] as part of your permanent medical record and are available for your continuing care. Thank you for allowing us to help in meeting your health care needs. Sincerely, Dr. Lopez Interpreting Radiologist [facility] (Normal over 40) documented in this encounterBlanchard [facility]12-09-2022 History of Present illness Narrative* Tess [...] 31, 2022 9:25 AM documented in this encounterBlanchard [facility]12-01-2022 History of Present illness Narrative* Della [...] Not applicable SIGNED BY: Della Salazar RDMS [facility] January 23, 2022 11:05 AM documented in this encounterBlanchard Valley [facility]11-03-2022 History of Present illness Narrative* Andres Vasquez MD - 12/26/2021 3:48 PM EDT Kelli Monroy is a 71 year old female who presents for problem visit. HPI: Patient presents with urinary urgency & dysuria. Denies vaginitis symptoms but she has stable vaginal dryness. OB History T0 L3 SAB0 IAB0 Ectopic0 Multiple0 Live Births0 Composition Siding Worker History LMP: Postmenopausal Age at Menarche: Age at First : Age at Menopause: Composition Siding Worker History Comments: Sexual Activity: Not Currently; No [...] Problem Relation Age of Onset Heart Mother [place] Heart Father [place] Heart Sister bunddle block Hyperlipidemia Sister Hypertension [...] Low Andres Vasquez MD documented in this encounterBlanchard [facility]11-03-2022 Miscellaneous Notes* Telephone Encounter - Brunilda Min LPN - 12/26/2021 3:21 PM EDT Spoke with pt and appt scheduled for 3:40 this afternoon. Brunilda Min LPN * Telephone Encounter - Twila John Pss - 12/26/2021 3:04 PM EDT Patient called stating she may have a UTI. she is experiencing burning and is asking if she needs appointment or testing. Please call patient and advise. documented in this encounterBlanchard [facility]06-07-2022 History of Present illness Narrative* Deyanira Mendez APRN.UNARMED SECURITY OFFICER - 07/30/2021 2:06 PM EDT Chief Complaint [...] prior to surgery. She believes they were "negative". Patient underwent a successful lumpectomy and sentinel [...] GI. Pt. feels that she is having terminal computer operator side effects from AI/tamoxifen. Appetite:"Good." Energy level:"Poor." Denies fevers. Resp:denies cough or sob Cardiac:denies [...] C (98.1 F) Ht 163.8 cm (5' 4.5") Wt 65.1 kg (143 lb 8 oz) [...] Declined further AI/Tamoxifen therapy. - Mammogram per CATARACT LENS GENERATOR. - Follow up with CATARACT LENS GENERATOR as scheduled. - Follow up in one year. - Pt. aware to call office with any questions/concerns. The patient indicates understanding of these issues and agrees with the plan. All documentation from previous visit of 07/30/20-Dr. Chavarria was copied and pasted, documentation has been reviewed and edited as necessary for today's visit. Deyanira Mendez APRN.LUPE documented in this encounterBlanchard Valley [facility]05-20-2022 History of Present illness Narrative* Adriana [...] history is provided by the patient. No travograph operator was used. Rash Review of Systems Constitutional: [...] Problem Relation Age of Onset Heart Mother [place] Heart Father [place] Heart Sister bunddle block Hyperlipidemia Sister Hypertension [...] plan. Adriana Vasquez APRN.LUPE documented in this encounterBlanchard Valley [facility]05-05-2022 Miscellaneous Notes* Telephone Encounter - Lesley Dey RN - 06/27/2021 12:18 PM EDT PEPperPRINT message sent to patient with information. Lesley [...] not due until January. documented in this encounterBlanchard [facility]05-04-2022 History of Present illness Narrative* Brunilda [...] 2021 TIME: 1:31 PM documented in this encounterBlanchard [facility]04-09-2022 History of Present illness Narrative* Adriana Vasquez APRN.UNARMED SECURITY OFFICER - 06/01/2021 2:25 PM EDT CC: Patient [...] Problem Relation Age of Onset Heart Mother [place] Heart Father [place] Heart Sister bunddle block Hyperlipidemia Sister Hypertension [...] plan. Adriana Vasquez APRN.LUPE documented in this encounterRidley Park ClinicDischar summary Author Jefry Mir [facility] Note Date/Time November 21, 2024 10:31am [facility] Medical Records Department [address] [place] [address] Emergency Department Summary 11/21/24 MR#: [id number] Acct: [id number] Name: KELLI MONROY Rep #:[id number] : 1950 74 From: Jefry Hoffman PCP: [...] Negative for Weakness or Loss of Funtion [facility] Medical History Episode of syncope Influenza B Acute pharyngitis Burn of right upper extremity Atherosclerosis of coronary artery of chemehuevi heart without angina pectoris Fibromyalgia Menopausal hot [...] patellofemoral compartments. Small joint effusion. Reading Location: [facility] X-rays of the right knee were obtained. [...] Internal Medicine] - 5-7 Days Print Language: Botswanan Disposition Disposition: Home, Self Care What to do if you have Problems For any increased pain, shortness of breath, bleeding, nausea or vomiting, chestpain, or any unexpected problems, contact your Primary Care Provider. Call [facility] ([phone]) or report to the closest Emergency Room. Call 911 if necessary. 11/21/24 8176 <Electronically signed by Jefry Mir DO> Cosigner Signature (if applicable): CC: Dr. Angel Fuller MD ~ [facility] Work Phone: Evaluation + Plan note Future Appointments Appointment Date:05/30/2021 11:00:00 AM Scheduled Provider:NAHOMI PETERSON Location:[facility] Appointment Type:CV OV Appointment Date:02/26/2022 02:00:00 PM Scheduled Provider:DONG BARBOSA Location:[facility] Appointment Type:BS OV Follow Up [facility] Evaluation + Plan note Future Appointments Appointment Date:05/29/2022 10:30:00 AM Scheduled Provider:NAHOMI PETERSON Location:[facility] Appointment Type:CV OV Appointment Date:02/26/2023 11:00:00 AM Scheduled Provider:THONG AGUILAR Location:[facility] Appointment Type:BS OV Future Scheduled Tests Radiology* MA Mammo Screening Bilateral w/ Mic 01/26/23 [facility] Evaluation + Plan note Future Appointments Appointment Date:05/29/2022 10:30:00 AM Scheduled Provider:NAHOMI PETERSON Location:[facility] Appointment Type:CV OV Appointment Date:02/26/2023 11:00:00 AM Scheduled Provider:THONG AGUILAR Location:[facility] Appointment Type:BS OV Diagnostic Tests Pending * [facility] Lab Send out (Blood Specimens) 03/03/22 Future Scheduled Tests Radiology* MA Mammo Screening Bilateral w/ Mic 01/26/23 [facility] Evaluation + Plan note Future Appointments Appointment Date:12/04/2022 02:30:00 PM Scheduled Provider:NAHOMI PETERSON Location:[facility] Appointment Type:CV OV Appointment Date:02/26/2023 11:00:00 AM Scheduled Provider:THONG AGUILAR Location:[facility] Appointment Type:BS OV Future Scheduled Tests Radiology* MA Mammo Screening Bilateral w/ Mic 01/26/23 [facility] Evaluation + Plan note Future Appointments Appointment Date:08/15/2024 10:30:00 AM Scheduled Provider:NAHOMI PETERSON Location:[facility] Appointment Type:CV OV Appointment Date:03/16/2025 01:30:00 PM Scheduled Provider: Location:[facility] Appointment Type:MA Mammogram Screening Bilateral w/ Mic Appointment Date:03/16/2025 02:00:00 PM Scheduled Provider:THONG AGUILAR Location:[facility] Appointment Type:BS OV Follow Up Future Scheduled Tests Radiology* MA Mammo Screening Bilateral w/ Mic 03/16/25 [facility] Evaluation + Plan note Future Appointments Appointment Date:09/19/2024 10:15:00 AM Scheduled Provider:NAHOMI PETERSON Location:[facility] Appointment Type:CV OV Appointment Date:03/16/2025 01:30:00 PM Scheduled Provider: Location:[facility] Appointment Type:MA Mammogram Screening Bilateral w/ Mic Appointment Date:03/16/2025 02:00:00 PM Scheduled Provider:THONG AGUILAR Location:[facility] Appointment Type:BS OV Follow Up Future Scheduled Tests Radiology* MA Mammo Screening Bilateral w/ Mic 03/16/25 [facility] evaluation note* Diagnosis Onset Date Resolution Status Osteoporosis chronic Hyperparathyroidism acute Paresthesia acute Osteoporosis [facility] Work Phone: evaluation note* Diagnosis Cough- Primary Suspected COVID-19 virus infection documented in this encounter [facility]* Diagnosis Onset Date Resolution Status Hyperparathyroidism acute Paresthesia acute Osteoporosis [facility] Work Phone: evaluation note* Diagnosis Discoloration of skin- Primary Dyschromia, unspecified documented in this encounter [facility]* Diagnosis Onset Date Resolution Status Hyperparathyroidism acute Paresthesia acute Osteoporosis chronic Arthritis acute Back pain acute Neck pain acute Paresthesia acute Degenerative disc disease, cervical acute [facility] Work Phone: evaluation note* Diagnosis Malignant neoplasm of upper-inner quadrant of right breast in female, estrogen receptor positive (HCC)- Primary documented in this encounter [facility] note* Diagnosis Urinary urgency- Primary Urgency of urination Dysuria documented in this encounter [facility] note* Diagnosis Onset Date Resolution Status Hyperparathyroidism acute Osteoporosis [facility] Work Phone: Evaluation note* Diagnosis Fever, unspecified fever cause- Primary Coagulation defect (HCC) Other and unspecified coagulation defects Leg swelling Swelling of limb Malignant neoplasm of upper-inner quadrant of right breast in female, 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, estrogen and progesterone receptor positive (HCC) Bone pain Disorder of bone and cartilage, unspecified documented in this encounter [facility] note* Diagnosis Fever, unknown origin- Primary Fever, unspecified Personal history of malignant neoplasm of breast documented in this encounter [facility] note* Diagnosis Malignant neoplasm of upper-inner quadrant of right breast in female, estrogen receptor positive (HCC)- Primary documented in this encounter [facility] note* Diagnosis Fever, low grade- Primary Fever, unspecified documented in this encounter [facility] note* Diagnosis Dysuria- Primary Vaginal burning Other specified symptom associated with female genital organs documented in this encounter [facility] note* Diagnosis Hematuria, unspecified type- Primary Dysuria Vaginal dryness Other specified symptom associated with female genital organs Abnormal facial hair Hirsutism Low grade fever Fever, unspecified documented in this encounter [facility] note* Diagnosis Personal history of malignant neoplasm of breast- Primary Encounter for screening mammogram for high-risk patient [facility] Diagnosis Encounter for screening mammogram for malignant neoplasm of breast Other screening mammogram [facility]* Diagnosis Fever, unspecified fever cause Malignant neoplasm of upper-inner quadrant of right breast in female, 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, estrogen and progesterone receptor positive (HCC) Bone pain Disorder of bone and cartilage, unspecified documented in this encounter [facility] note* Diagnosis Personal history of malignant neoplasm of breast Encounter for screening mammogram for high-risk patient documented in this encounter [facility] note* Diagnosis Onset Date Resolution Status Degenerative disc disease, cervical acute Foraminal stenosis of cervical region acute Hyperparathyroidism chronic Menopausal hot flushes chron ic Osteoporosis chronic Symptoms of gastroesophageal reflux [facility] Work Phone: Evaluation note* Diagnosis Onset Date Resolution Status Degenerative disc disease, cervical acute Foraminal stenosis of cervical region acute Hyperparathyroidism chronic Menopausal hot flushes chron ic Osteoporosis chronic Symptoms of gastroesophageal reflux chronic Degenerative disc disease, cervical acute Foraminal stenosis of cervical region acute [facility] Work Phone: Evaluation note* Diagnosis Genitourinary syndrome of menopause- Primary Vaginal irritation Unspecified noninflammatory disorder of vagina Urinary frequency Screening for thyroid disorder Hirsutism documented in this encounter [facility] note* Diagnosis Onset Date Resolution Status Degenerative disc disease, cervical acute Foraminal stenosis of cervical region acute Heart palpitations acute [facility] Work Phone: Evaluation note* Diagnosis Urinary frequency- Primary Frequent UTI Urinary tract infection, site not specified documented in this encounter [facility] note* Diagnosis Encounter for screening mammogram for malignant neoplasm of breast- Primary Other screening mammogram documented in this encounter [facility] note* Diagnosis Encounter for screening mammogram for malignant neoplasm of breast Other screening mammogram documented in this encounter [facility] note* Diagnosis Venous (peripheral) insufficiency- Primary Unspecified venous (peripheral) insufficiency documented in this encounter [facility] course Narrative No data available for this section [facility] Discharge instructions No data available for this section [facility] Discharge instructions Additional Instructions Please follow-up with your whip operator.[facility] Work Phone: Progrbei note No data available for this section [facility] Progress note Author Jeovanny Moore [facility] Note Date/Time July 29, 2024 11:27 am [facility] [address] [place] [address] OFFICE VISIT Date of Service: 07/29/24 MR#: [id number] Acct: [id number] Name: KELLI MONROY Rep #: [id number] : 1950 Provider: Dr. Nato ph Borruso, DO Age/Sex: 74/F Location: [facility] Status: Signed Intake Vital Signs 06/30/24 11:27 [...] (Fainted at doctor's office ) [facility] Medical History Episode of syncope Influenza B Acute pharyngitis Burn of right upper extremity Atherosclerosis of coronary artery of che[place]huevi heart without angina pectoris Fibromyalgia Menopausal hot [...] made by me, Dr. Jeovanny Moore DO 07/29/24 0737. Part of today?s visit [...] Location Dispensed Lot Number Expiration Date NDC Can Worker 20 mg intra-articular Right Knee 2 mL [id number] 06/27/25 [address]-1 [employer] [employer] Supplemental Info 08/13/2023 x-ray right knee on disc from [facility] moderate medial joint space narrowing severe [...] Yes (Fainted at doctor's office ) 07/29/24 1129 <Electronically signed by Jeovanny hoffman DO> Date _ Jeovanny Moore DO Cosigner Signature: Date (if applicable) CC: ~ [facility] Work Phone: Progress note Author Anthony Mckeon [facility] Note Date/Time November 18, 2024 9:10am [facility] [address] [id number] OFFICE VISIT Date of Service: 11/17/24 MR#: [id number] Acct: [id number] Patient: KELLI MONROY Rep #: [id number] : 1950 Provider: Dr. Gabi Mckeon MD Age/Sex: 74/F Location: [facility] Status: Signed Intake Vital Signs 09/15/24 10:21 [...] Performing Provider: Anthony Mckeon MD Performing Location: [facility] Administered by: Corry Mckeon on 11/17/24 09:23 Dose [address] Admin Location Dispensed Lot Number Expiration Date Pack age NDC NDC Can Worker 1,000 mcg IM left deltoid 1 mL [id number] 06/22/26 92529-688-37 [id number] [employer] Comments: The patient presents for [...] you fallen in the past year?: Yes 11/18/24909 <Electronically signed by Anthony castro MD> Date _ Anthony Mckeon MD Cosigner Signature: Date (if applicable) CC: ~ [facility] Work Phone: Progress note Author Jeovanny Moore [facility] Note Date/Time November 23, 2024 11 :15am [facility] [address] [place] [address] OFFICE VISIT Date of Service: 11/23/24 MR#: [id number] Acct: [id number] Name: KELLI MONROY Rep #: [id number] : 1950 Provider: Dr. 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 Jeovanny Moore, DO 11/23/24 0819. Part of today?s visit was documented by [...] worse. She sees Nahomi Peterson as her whip operator. 11/21/2024 ER visit for knee pain: X-rays [...] done 10 sessions of physical therapy at [facility]. Patient states that the physical therapy [...] patient that I reviewed her xrays from [facility] from last years versusthis year and her [...] may have had a recent injection with [facility] therefore we will go ahead and request the records from them and [facility] have [facility] to let her know when she can have a steroid injection. 06/24/2024 visit:74 year old F with medical history significant for but not limited to episodes of syncope, fibromyalgia, polyneuropathy, cervical degenerative disc disease, hyperparathyroidism, paresthesias, chronic back pain,GERD, patient of [facility] who has known arthritis in her [...] done by an infectious disease doctor in [place] who then referred her to Dr. Fung at [facility] who also did a work up but [...] 08/13/2023 x-ray right knee on disc from [facility] moderate medial joint space narrowing severe [...] the right knee TKA. She will need whip operator clearance and she sees Nahomi Peterson. 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, estrogen and progesterone receptor positive (HCC) Bone pain Procedures NM BONE WHOLE BODY BONE &/JOINT IMAGING WHOLE BODY Robert Weber DO [address] [place] [address] Molecular & Functional Imaging [address] [id number] Referral ID Status Reason Start Date Expiration Date Visits Requested Visits Authorized [id number] Authorized Auto-Generat ed Referral 04/01/2022 05/01/2023 1 1 * Outpatient Procedure (Routine) - Authorized Specialty Diagnoses / Procedures Referred By Jessica monique Referred To Contact [facility] Diagnoses Fever, unspecified fever cause Leg swelling Procedures US LEG VEIN DVT EMERITA VAS LAB DUP-SCAN XTR VEINS COMPLETE BILATERAL STUDY Robert Weber DO [address] [place] [address] [facility] [place] [address] [place] [address] Referral ID Status Reason Start Date Expiration Date Visits Requested Visits Authorized [id number] Authorized Auto-Generat ed Referral 04/01/2022 04/01/2023 1 1 [facility] for referral (narrative)* Diagnostic Procedure Only (Routine) - Authorized Specialty Diagnoses / Procedures Referred By Jessica monique Referred To Contact [facility] Diagnoses Personal history of malignant neoplasm of breast Encounter for screening mammogram for high-risk patient Procedures DESIREE SCREENING W MIC SCREENING DIGITAL BREAST TOMOSYNTHESIS BI SCREENING MAMMOGRAPHY BI 2-VIEW BREAST INC Deyanira Morris APRN.CNP [address] [place] [address] [facility] [address] [place] [address] Referral ID Status Reason Start Date Expiration Date Visits Requested Visits Authorized [id number] Authorized Auto-Generat ed Referral 11/21/2022 12/21/2023 1 1 [facility] for referral (narrative)* Diagnostic Procedure Only (Routine) - Closed Specialty Diagnoses / Procedures Referred By Jessica t Referred To Contact [facility] Diagnoses Encounter for screening mammogram for malignant neoplasm of breast Procedures DESIREE SCREENING W MIC SCREENING BREAST DGTL MIC UNI/BILAT ADD ON SCREENING MAMMOGRAPHY BI 2-VIEW BREAST INC CAD Prisca Rivera MD [address] [place] [address] [facility] [address] [place] [address] Referral ID Status Reason Start Date Expiration Date V isits Requested Visits Authorized [id number] Closed Auto-Generate d Referral 01/28/2021 02/27/2022 1 1 [facility] for referral (narrative)* Diagnostic Procedure Only [...] IMAGING WHOLE BODY Robert Weber DO [address] [place] [address] Molecular & Functional Imaging [address] [place] [address] Referral ID Status Reason Start Date Expiration Date V isits Requested Visits Authorized [id number] Closed Auto-Generate d Referral 04/01/2022 05/01/2023 1 1 [facility] for referral (narrative)* Diagnostic Procedure Only (Routine) - Authorized Specialty Diagnoses / Procedures Referred By Jessica monique Referred To Contact [facility] Diagnoses Encounter for screening mammogram for malignant neoplasm of breast Procedures DESIREE SCREENING W MIC SCREENING DIGITAL BREAST TOMOSYNTHESIS BI SCREENING MAMMOGRAPHY [facility] NeyPrisca Olvera MD [address] [place] [address] [facility] [address] [place] [address] Referral ID Status Reason Start Date Expiration Date Visits Requested Visits Authorized [id number] Authorized Auto-Generat ed Referral 02/11/2025 1 1 [facility] for referral (narrative)No reason for referral information [place]WCenterville Work Phone: Reason for visit Narrative* Diagnostic Procedure Only (Routine) - Closed Specialty Diagnoses / Procedures Referred By Jessica monique Referred To Contact [facility] Diagnoses Encounter for screening mammogram for malignant neoplasm of breast Procedures DESIREE SCREENING W MIC SCREENING BREAST DGTL MIC UNI/BILAT ADD ON SCREENING MAMMOGRAPHY [facility] [employer] CAD Prisca Rivera MD [address] [place] [address] [facility] [address] [place] [address] Referral ID Status Reason Start Date Expiration Date V isits Requested Visits Authorized [id number] Closed Auto-Generate d Referral 01/28/2021 02/27/2022 1 1 [facility] for visit Narrative* Diagnostic Procedure Only [...] Robert Weber DO [address] [place] [address] Molecular & Functional Imaging [address] [id number] Referral ID Status Reason Start Date Expiration Date V isits Requested Visits Authorized [id number] Closed Auto-Generate d Referral 04/01/2022 05/01/2023 1 1 [facility] for visit Narrative* Diagnostic Procedure Only (Routine) - Closed Specialty Diagnoses / Procedures Referred By Jessica monique Referred To Contact [facility] Diagnoses Personal history of malignant neoplasm of breast Encounter for screening mammogram for high-risk patient Procedures DESIREE SCREENING W MIC SCREENING DIGITAL BREAST TOMOSYNTHESIS BI SCREENING MAMMOGRAPHY BI [facility] [employer] CAD Deyanira Mendez APRN.LUPE [address] [place] [address] [facility] [address] [place] [address] Referral ID Status Reason Start Date Expiration Date V isits Requested Visits Authorized [id number] Closed Auto-Generate d Referral 11/21/2022 12/21/2023 1 1 [facility] for visit Narrative* Diagnostic Procedure Only (Routine) - Closed Specialty Diagnoses / Procedures Referred By Jessica monique Referred To Contact [facility] Diagnoses Encounter for screening mammogram for malignant neoplasm of breast Procedures DESIREE SCREENING W MIC SCREENING DIGITAL BREAST TOMOSYNTHESIS BI SCREENING MAMMOGRAPHY BI [facility] [employer] [employer] CAD Prisca Rivera MD [address] [place] [address] [facility] [address] [place] [address] Referral ID Status Reason Start Date Expiration Date V isits Requested Visits Authorized [id number] Closed Auto-Generate d Referral 01/13/2024 02/11/2025 1 1 [facility] Chief Complaint and Reason for Visit [...] 2024 11:26am RECLAST April 05, 2024 9:31am FEVER/BA/IVCKY/COUGH April 12, 2024 11:52am SYNCOPE April 12, [...] of right knee July 13, 025 10:27am Chief Complaint Admit Date CHRONIC [...] 2:20pm BLE; Paresthesias; numbness in feet Zana 2024 12:04pm BLE; Paresthesias; numbness in feet Zana 2024 1:25pm B12 inject June 09, 2024 [...] am Osteoarthritis of right knee July 22, 2 025 11:12am Osteoarthritis of right knee July 29, 2 025 11:07am Chief Complaint Admit Date BACK [...] of right knee July 29, 025 11:07am Chief Complaint Admit Date General [...] m Osteoarthritis of right knee July 13 025 10:27am Fatigue July 14, 2024 10:38 [...] 11:12am Osteoarthritis of right knee July 29, 2 [...] Admit Date Osteoarthritis of right knee July 13, 10:27am Fatigue July 14, 2024 10:38 am Osteoarthritis of right knee July 22, 11:12am Osteoarthritis of right knee July 29 [...] August 30, 2024 10:57 am RIGHT KNEE Jessica 14th, 2025 3:45 pm Room 1 September 05, 2024 3:58 pm RIGHT KNEE September 07, 2024 8:10 am B12 September 15, 2024 9:59 am B12 inject October 17, 2024 8: 23am RIGHT KNEE October 31, 2024 10:56am Discuss Lyrica November 10, 2024 12:59pm Reason for Visit Admit Date Osteoarthritis of right knee July 22 025 [...] Date Osteoarthritis of right knee July 29 025 [...] 2024 12:59pm Burning mouth syndrome November 10, 12:59pm Fatigue November 10, 2024 12:59pm Fibromyalgia [...] Yes October 01, 2013 4:16pm Power of Stacker Operator Yes October 01 4:16pm Advance Directive Response Recorded Date/ Time Living Will No June 10, 2021 7:08pm Power of Stacker Operator No June 10 7:08pm Advance Directive Response Recorded Date/ Time Living Will No June 10, 2021 6:08pm Power of Stacker Operator No June 10 6:08pm Advance Directive Response Recorded Date/ Time Living Will No March 09 10:37am Power of Stacker Operator No March 09, 2023 10:37am Advance Directive Response Recorded Date/ Time Living Will No March 09 11:37am Power of Stacker Operator No March 09, 2023 11:37am Advance Directive Response Recorded Date/ Time Living Will No June 10, 2021 6:08pm Power of Stacker Operator No June 10 6:08pm Living Will No April 12 3:31pm Power of Stacker Operator No April 12, 2024 3:31pm Living Will Yes April 18 12:37pm Power of Stacker Operator Yes April 18, 2024 12:37pm Name of Medical Power of Stacker Operator [place] April 18, 2024 12:37pm Living Will Yes March 12 9:08pm Power of Stacker Operator Yes March 12, 2024 9:08pm Name of Medical Power of Stacker Operator Devaughn Sargent, son March 12, 2024 9:08pm Living Will No April 16 5:21pm Power of Stacker Operator No April 16, 2024 5:21pm Advance Directive Response Recorded Date/ Time Living Will No June 10, 2021 7:08pm Do you have a Healthcare Pow er of Stacker Operator? No June 10, 2021 7:08pm Living Will No April 12 4:31pm Do you have a Healthcare Pow er of Stacker Operator? No April 12, 2024 4:31pm Living Will Yes April 18 1:37pm Do you have a Healthcare Pow er of Stacker Operator? Yes April 18, 2024 1:37pm Name of Medical Power of Stacker Operator [place] April 18, 2024 1:37pm Living Will Yes March 12 10:08pm Do you have a Healthcare Pow er of Stacker Operator? Yes March 12, 2024 10:08pm Name of Medical Power of Stacker Operator Devaughn Sargent, son March 12, 2024 10:08pm Living Will No April 16 6:21pm Do you have a Healthcare Pow er of Stacker Operator? No April 16, 2024 6:21pm Advance Directive Response Recorded Date/ Time Living Will No April 12 4:31pm Do you have a Healthcare Pow er of Stacker Operator? No April 12, 2024 4:31pm Living Will Yes April 18 1:37pm Do you have a Healthcare Pow er of Stacker Operator? Yes April 18, 2024 1:37pm Name of Medical Power of Stacker Operator [place] April 18, 2024 1:37pm Living Will Yes March 12 10:08pm Do you have a Healthcare Pow er of Stacker Operator? Yes March 12, 2024 10:08pm Name of Medical Power of Stacker Operator raudel Peterson March 12, 2024 10:08pm Living Will No April 16 6:21pm Do you have a Healthcare Pow er of Stacker Operator? No April 16, 2024 6:21pm Advance Directive Response Recorded Date/ Time Living Will No April 12 4:31pm Do you have a Healthcare Power of Stacker Operator? No April 12, 2024 4:31pm Living Will Yes April 18 1:37pm Do you have a Healthcare Power of Stacker Operator? Yes April 18, 2024 1:37pm Name of Medical Power of Stacker Operator [place] April 18, 2024 1:37pm Living Will No April 16 6:21pm Do you have a Healthcare Power of Stacker Operator? No April 16, 2024 6:21pm Advance Directive Response Recorded Date/ Time Living Will Yes April 18 1:37pm Do you have a Healthcare Power of Stacker Operator? Yes April 18, 2024 1:37pm Name of Medical Power of Stacker Operator [place] April 18, 2024 1:37pm Do you have a Healthcare Power of Stacker Operator? No August 13, 2024 8:06pm Living Will No April 16 6:21pm Do you have a Healthcare Power of Stacker Operator? No April 16, 2024 6:21pm Advance Directive Response Recorded Date/ Time Living Will Yes April 18 1:37pm Do you have a Healthcare Power of Stacker Operator? Yes April 18, 2024 1:37pm Name of Medical Power of Stacker Operator [place] April 18, 2024 1:37pm Do you have a Healthcare Power of Stacker Operator? No August 13, 2024 8:06pm Advance Directive Response Recorded Date/ Time Do you have a Healthcare Power of Stacker Operator? No August 13, 2024 8:06pm Advance Directive Response Recorded Date/ Time Do you have a Healthcare Power of Stacker Operator? No August 13, 2024 8:06pm Do you have a Healthcare Power of Stacker Operator? No November 21, 2024 8:23am Health Concerns Infection Onset Date Last Indicated Resolved Time COVID-19 Rule-Out 06/01/2021 06/01/2021 Summary Purpose Additional Source Comments Goals (unrecognized section and content) Goals may be documented in a n alternate section Source Comments (unrecognize d section and content) In the event this informatio n is protected by the [facility] Confidentiality of Alcohol and Drug Abuse Patient Records regulations: The Federal rules restrict any use of the information to criminally investigate or prosecute any alcohol or drug abuse patient.[facility] the event this information is protected by the Federal Confidentiality of Alcohol and Drug Abuse Patient Records regulations: The Federal rules restrict any use of the information to criminally investigate or prosecute any alcohol or drug abuse patient.[facility] Hospital[facility] the event this information is protected by the Federal Confidentiality of Alcohol and Drug Abuse Patient Records regulations: The Federal rules restrict any use of the information to criminally investigate or prosecute any alcohol or drug abuse patient.[facility] Hospital[facility] the event this information is protected by the Federal Confidentiality of Alcohol and Drug Abuse Patient Records regulations: The Federal rules restrict any use of the information to criminally investigate or prosecute any alcohol or drug abuse patient.[facility] Hospital[facility] the event this information is protected by the Federal Confidentiality of Alcohol and Drug Abuse Patient Records regulations: The Federal rules restrict any use of the information to criminally investigate or prosecute any alcohol or drug abuse patient.[facility] Hospital[facility] the event this information is protected by the Federal Confidentiality of Alcohol and Drug Abuse Patient Records regulations: The Federal rules restrict any use of the information to criminally investigate or prosecute any alcohol or drug abuse patient.[facility] Hospital[facility] the event this information is protected by the Federal Confidentiality of Alcohol and Drug Abuse Patient Records regulations: The Federal rules restrict any use of the information to criminally investigate or prosecute any alcohol or drug abuse patient.[facility] HospitalIn the event this information is protected by the Federal Confidentiality of Alcohol and Drug Abuse Patient Records regulations: The Federal rules restrict any use of the information to criminally investigate or prosecute any alcohol or drug abuse patient.[facility] HospitalIn the event this information is protected by the Federal Confidentiality of Alcohol and Drug Abuse Patient Records regulations: The Federal rules restrict any use of the information to criminally investigate or prosecute any alcohol or drug abuse patient.[facility] HospitalIn the event this information is protected by the Federal Confidentiality of Alcohol and Drug Abuse Patient Records regulations: The Federal rules restrict any use of the information to criminally investigate or prosecute any alcohol or drug abuse patient.[facility] HospitalIn the event this information is protected by the Federal Confidentiality of Alcohol and Drug Abuse Patient Records regulations: The Federal rules restrict any use of the information to criminally investigate or prosecute any alcohol or drug abuse patient.[facility] HospitalIn the event this information is protected by the Federal Confidentiality of Alcohol and Drug Abuse Patient Records regulations: The Federal rules restrict any use of the information to criminally investigate or prosecute any alcohol or drug abuse patient.[facility] HospitalIn the event this information is protected by the Federal Confidentiality of Alcohol and Drug Abuse Patient Records regulations: The Federal rules restrict any use of the information to criminally investigate or prosecute any alcohol or drug abuse patient.[facility] HospitalIn the event this information is protected by the Federal Confidentiality of Alcohol and Drug Abuse Patient Records regulations: The Federal rules restrict any use of the information to criminally investigate or prosecute any alcohol or drug abuse patient.[facility] HospitalIn the event this information is protected by the Federal Confidentiality of Alcohol and Drug Abuse Patient Records regulations: The Federal rules restrict any use of the information to criminally investigate or prosecute any alcohol or drug abuse patient.[facility] HospitalIn the event this information is protected by the Federal Confidentiality of Alcohol and Drug Abuse Patient Records regulations: The Federal rules restrict any use of the information to criminally investigate or prosecute any alcohol or drug abuse patient.[facility] HospitalIn the event this information is protected by the Federal Confidentiality of Alcohol and Drug Abuse Patient Records regulations: The Federal rules restrict any use of the information to criminally investigate or prosecute any alcohol or drug abuse patient.[facility] HospitalIn the event this information is protected by the Federal Confidentiality of Alcohol and Drug Abuse Patient Records regulations: The Federal rules restrict any use of the information to criminally investigate or prosecute any alcohol or drug abuse patient.[facility] HospitalIn the event this information is protected by the Federal Confidentiality of Alcohol and Drug Abuse Patient Records regulations: The Federal rules restrict any use of the information to criminally investigate or prosecute any alcohol or drug abuse patient.[facility] HospitalIn the event this information is protected by the Federal Confidentiality of Alcohol and Drug Abuse Patient Records regulations: The Federal rules restrict any use of the information to criminally investigate or prosecute any alcohol or drug abuse patient.[facility] HospitalIn the event this information is protected by the Federal Confidentiality of Alcohol and Drug Abuse Patient Records regulations: The Federal rules restrict any use of the information to criminally investigate or prosecute any alcohol or drug abuse patient.[facility] HospitalIn the event this information is protected by the Federal Confidentiality of Alcohol and Drug Abuse Patient Records regulations: The Federal rules restrict any use of the information to criminally investigate or prosecute any alcohol or drug abuse patient.[facility] HospitalIn the event this information is protected by the Federal Confidentiality of Alcohol and Drug Abuse Patient Records regulations: The Federal rules restrict any use of the information to criminally investigate or prosecute any alcohol or drug abuse patient.[facility] HospitalIn the event this information is protected by the Federal Confidentiality of Alcohol and Drug Abuse Patient Records regulations: The Federal rules restrict any use of the information to criminally investigate or prosecute any alcohol or drug abuse patient.[facility] HospitalIn the event this information is protected by the Federal Confidentiality of Alcohol and Drug Abuse Patient Records regulations: The Federal rules restrict any use of the information to criminally investigate or prosecute any alcohol or drug abuse patient.[facility] HospitalIn the event this information is protected by the Federal Confidentiality of Alcohol and Drug Abuse Patient Records regulations: The Federal rules restrict any use of the information to criminally investigate or prosecute any alcohol or drug abuse patient.[facility] HospitalIn the event this information is protected by the Federal Confidentiality of Alcohol and Drug Abuse Patient Records regulations: The Federal rules restrict any use of the information to criminally investigate or prosecute any alcohol or drug abuse patient.[facility] HospitalIn the event this information is protected by the Federal Confidentiality of Alcohol and Drug Abuse Patient Records regulations: The Federal rules restrict any use of the information to criminally investigate or prosecute any alcohol or drug abuse patient.[facility] HospitalIn the event this information is protected by the Federal Confidentiality of Alcohol and Drug Abuse Patient Records regulations: The Federal rules restrict any use of the information to criminally investigate or prosecute any alcohol or drug abuse patient.[facility] HospitalIn the event this information is protected by the Federal Confidentiality of Alcohol and Drug Abuse Patient Records regulations: The Federal rules restrict any use of the information to criminally investigate or prosecute any alcohol or drug abuse patient.[facility] HospitalIn the event this information is protected by the Federal Confidentiality of Alcohol and Drug Abuse Patient Records regulations: The Federal rules restrict any use of the information to criminally investigate or prosecute any alcohol or drug abuse patient.[facility] HospitalIn the event this information is protected by the Federal Confidentiality of Alcohol and Drug Abuse Patient Records regulations: The Federal rules restrict any use of the information to criminally investigate or prosecute any alcohol or drug abuse patient.[facility] HospitalIn the event this information is protected by the Federal Confidentiality of Alcohol and Drug Abuse Patient Records regulations: The Federal rules restrict any use of the information to criminally investigate or prosecute any alcohol or drug abuse patient.[facility] HospitalIn the event this information is protected by the Federal Confidentiality of Alcohol and Drug Abuse Patient Records regulations: The Federal rules restrict any use of the information to criminally investigate or prosecute any alcohol or drug abuse patient.[facility] HospitalIn the event this information is protected by the Federal Confidentiality of Alcohol and Drug Abuse Patient Records regulations: The Federal rules restrict any use of the information to criminally investigate or prosecute any alcohol or drug abuse patient.[facility] HospitalIn the event this information is protected by the Federal Confidentiality of Alcohol and Drug Abuse Patient Records regulations: The Federal rules restrict any use of the information to criminally investigate or prosecute any alcohol or drug abuse patient.[facility] HospitalIn the event this information is protected by the Federal Confidentiality of Alcohol and Drug Abuse Patient Records regulations: The Federal rules restrict any use of the information to criminally investigate or prosecute any alcohol or drug abuse patient.[facility] HospitalIn the event this information is protected by the Federal Confidentiality of Alcohol and Drug Abuse Patient Records regulations: The Federal rules restrict any use of the information to criminally investigate or prosecute any alcohol or drug abuse patient.[facility]In the event this information is protected by the Federal Confidentiality of Alcohol and Drug Abuse Patient Records regulations: The Federal rules restrict any use of the information to criminally investigate or prosecute any alcohol or drug abuse patient.[facility] HospitalIn the event this information is protected by the Federal Confidentiality of Alcohol and Drug Abuse Patient Records regulations: The Federal rules restrict any use of the information to criminally investigate or prosecute any alcohol or drug abuse patient.[facility] HospitalIn the event this information is protected by the Federal Confidentiality of Alcohol and Drug Abuse Patient Records regulations: The Federal rules restrict any use of the information to criminally investigate or prosecute any alcohol or drug abuse patient.[facility] HospitalIn the event this information is protected by the Federal Confidentiality of Alcohol and Drug Abuse Patient Records regulations: The Federal rules restrict any use of the information to criminally investigate or prosecute any alcohol or drug abuse patient.[facility] HospitalIn the event this information is protected by the Federal Confidentiality of Alcohol and Drug Abuse Patient Records regulations: The Federal rules restrict any use of the information to criminally investigate or prosecute any alcohol or drug abuse patient.[facility] Reason for Visit (unrecogniz ed section [...] Care Teams (unrecognized sec tion and content) 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/Fireman Relationship Specialty Start Date End Date Angel Fuller MD [address] [place] [address] PCP - General Internal Medicine 05/06/18 Yue Bravo MD, [address] [facility] [facility] [place], [place] [id number] Physician Radiation Oncology 03/06/16 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/Fireman Relationship Specialty Start Date End Date Angel Fuller MD [address] [place] [address] PCP - General Internal Medicine 05/06/18 Yue Bravo MD, [address] [facility] [place] [address] Physician Radiation Oncology 03/06/16 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/Fireman Relationship Specialty Start Date End Date Angel Fuller MD [address] [place] [address] PCP - General Internal Medicine 05/06/18 Yue Bravo MD, [address] [place] [address] Physician Radiation Oncology 03/06/16 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/Fireman Relationship Specialty Start Date End Date Angel Fluler MD [address] [place] [address] PCP - General Internal Medicine 05/06/18 Yue Bravo MD, [address] [place] [place] [address] Physician Radiation Oncology 03/06/16 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/Fireman Relationship Specialty Start Date End Date Angel Fuller MD [address] [place] [address] PCP - General Internal Medicine 05/06/18 Yue Bravo MD, [address] [place] [address] Physician Radiation Oncology 03/06/16 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/Fireman Relationship Specialty Start Date End Date Angel Fuller MD [address] [place] [address] PCP - General Internal Medicine 05/06/18 Yue Bravo MD, [address] [place] [address] Physician Radiation Oncology 03/06/16 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/Fireman Relationship Specialty Start Date End Date Angel Fuller MD [address] [place] [address] PCP - General Internal Medicine 05/06/18 Yue Bravo MD, [address] [place] [address] Physician Radiation Oncology 03/06/16 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/Fireman Relationship Specialty Start Date End Date Angel Fuller MD [address] [place] [address] PCP - General Internal Medicine 05/06/18 Yue Bravo MD, [address] [place] [address] Physician Radiation Oncology 03/06/16 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/Fireman Relationship Specialty Start Date End Date Angel Fuller MD [address] [place] [address] PCP - General Internal Medicine 05/06/18 Yue Bravo MD, [address] [place] [address] Physician Radiation Oncology 03/06/16 Deyanira Mendez, ELENA.UNARMED SECURITY OFFICER [address] [place] [address] Hematology/Oncology 03/20/22 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/Fireman Relationship Specialty Start Date End Date Angel Fuller MD [address] [place] [address] PCP - General Internal Medicine 05/06/18 Yue Bravo MD, [address] [place] [address] Physician Radiation Oncology 03/06/16 Deyanira Mendez, ELENA.UNARMED SECURITY OFFICER [address] [place] [address] Hematology/Oncology 03/20/22 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/Fireman Relationship Specialty Start Date End Date Angel Fuller MD [address] [place] [address] PCP - General Internal Medicine 05/06/18 Yue Bravo MD, [address] [place] [address] Physician Radiation Oncology 03/06/16 Deyanira Mendez, RENOVATION PLANT SUPERVISOR.UNARMED SECURITY OFFICER [address] [place] [address] Hematology/Oncology 03/20/22 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/Fireman Relationship Specialty Start Date End Date Angel Fuller MD [address] [place] [address] PCP - General Internal Medicine 05/06/18 Yue Bravo MD, [address] [place] [address] Physician Radiation Oncology 03/06/16 Deyanira Mendez, RENOVATION PLANT SUPERVISOR.UNARMED SECURITY OFFICER [address] [place] [address] Hematology/Oncology 03/20/22 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/Fireman Relationship Specialty Start Date End Date Angel Fuller MD [address] [place] [address] PCP - General Internal Medicine 05/06/18 Yue Bravo MD, [address] [place] [address] Physician Radiation Oncology 03/06/16 Deyanira Mendez, RENOVATION PLANT SUPERVISOR.UNARMED SECURITY OFFICER [address] [place] [address] Hematology/Oncology 03/20/22 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/Fireman Relationship Specialty Start Date End Date Angel Fuller MD [address] [place] [address] PCP - General Internal Medicine 05/06/18 Yue Bravo MD, [address] [place] [address] Physician Radiation Oncology 03/06/16 Deyanira Mendez, RENOVATION PLANT SUPERVISOR.UNARMED SECURITY OFFICER [address] [place] [address] Hematology/Oncology 03/20/22 Irena Gonzalez LISW [address] [place] [address] Adjunct Professor Of Voice Hematology/Oncology 04/16/22 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/Fireman Relationship Specialty Start Date End Date Angel Fuller MD [address] [place] [address] PCP - General Internal Medicine 05/06/18 Yue Bravo MD, [address] [place] [address] Physician Radiation Oncology 03/06/16 Deyanira Mendez, RENOVATION PLANT SUPERVISOR.UNARMED SECURITY OFFICER [address] [place] [address] Hematology/Oncology 03/20/22 Irena Gonzalez LISW [address] [place] [address] Adjunct Professor Of Voice Hematology/Oncology 04/16/22 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/Fireman Relationship Specialty Start Date End Date Angel Fuller MD [address] [place] [address] PCP - General Internal Medicine 05/06/18 Yue Bravo MD, [address] [place] [address] Physician Radiation Oncology 03/06/16 Deyanira Mendez, RENOVATION PLANT SUPERVISOR.UNARMED SECURITY OFFICER [address] [place] [address] Hematology/Oncology 03/20/22 Irena Gonzalez LISW [address] [place] [address] Adjunct Professor Of Voice Hematology/Oncology 04/16/22 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/Fireman Relationship Specialty Start Date End Date Angel Fuller MD [address] [facility] [place] [address] PCP - General Internal Medicine 05/06/18 Yue Bravo MD, [address] [place] [address] Physician Radiation Oncology 03/06/16 Deyanira Mendez, RENOVATION PLANT SUPERVISOR.UNARMED SECURITY OFFICER [address] [place] [address] Hematology/Oncology 03/20/22 Irena Gonzalez LISW [address] [place] [address] Adjunct Professor Of Voice Hematology/Oncology 04/16/22 Millie Pantoja MD [address] [place] [address] Infectious Diseases 05/21/22 Lorenzo Montana [address] [facility] [address] [place] [address] Orthopedics 05/21/22 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/Fireman Relationship Specialty Start Date End Date Angel Fuller MD [address] [place] [address] PCP - General Internal Medicine 05/06/18 Yue Bravo MD, [address] [place] [address] Physician Radiation Oncology 03/06/16 Deyanira Mendez, RENOVATION PLANT SUPERVISOR.UNARMED SECURITY OFFICER [address] [place] [address] Hematology/Oncology 03/20/22 Irena Gonzalez LISW [address] [place] [address] Adjunct Professor Of Voice Hematology/Oncology 04/16/22 Millie Pantoja MD [address] [facility], [place] [address] Infectious Diseases 05/21/22 Lorenzo Montana [address] [place] [address] Orthopedics 05/21/22 Millie Pantoja MD [address] [facility], [place] [address] Referring Infectious Diseases 06/19/22 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/Fireman Relationship Specialty Start Date End Date Angel Fuller MD [address] [place] [address] PCP - General Internal Medicine 05/06/18 Yue Brvao MD, [address] [place] [address] Physician Radiation Oncology 03/06/16 Deyanira Mendez, ELENA.UNARMED SECURITY OFFICER [address] [place] [address] Hematology/Oncology 03/20/22 Irena Gonzalez LISW [address] [place] [address] Adjunct Professor Of Voice Hematology/Oncology 04/16/22 Millie Pantoja MD [address] [place] [address] Infectious Diseases 05/21/22 Lorenzo Montana [address] [place] [address] Orthopedics 05/21/22 Millie Pantoja MD [address] [place] [address] Referring Infectious Diseases 06/19/22 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/Fireman Relationship Specialty Start Date End Date Angel Fuller MD [address] [place] [address] PCP - General Internal Medicine 05/06/18 Yue Bravo MD, [address] [place] [address] Physician Radiation Oncology 03/06/16 Deyanira Mendez APRN.UNARMED SECURITY OFFICER [address] [place] [address] Hematology/Oncology 03/20/22 Irena Gonzalez LISW [address] [place] [address] Adjunct Professor Of Voice Hematology/Oncology 04/16/22 Millie Pantoja MD [address] [place] [address] Infectious Diseases 05/21/22 Lorenzo Montana [address] [facility] [address] [address] Orthopedics 05/21/22 Millie Pantoja MD [address] [place] [address] Referring Infectious Diseases 06/19/22 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/Fireman Relationship Specialty Start Date End Date Angel Fuller MD [address] [place] [address] PCP - General Internal Medicine 05/06/18 Yue Bravo MD, [address] [place] [address] Physician Radiation Oncology 03/06/16 Deyanira Mendez APRN.UNARMED SECURITY OFFICER [address] [place] [address] Hematology/Oncology 03/20/22 Irena Gonzalez LISW [address] [place] [address] Adjunct Professor Of Voice Hematology/Oncology 04/16/22 Millie Pantoja MD [address] [place] [address] Infectious Diseases 05/21/22 Lorenzo Montana [address] [facility] 2 [place] [address] Orthopedics 05/21/22 Millie Pantoja MD [address] [place] [address] Referring Infectious Diseases 06/19/22 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/Fireman Relationship Specialty Start Date End Date Angel Fuller MD [address] [place] [address] PCP - General Internal Medicine 05/06/18 Yue Bravo MD, [address] [place] [address] Physician Radiation Oncology 03/06/16 Deyanira Mendez APRN.UNARMED SECURITY OFFICER [address] [place] [address] Hematology/Oncology 03/20/22 Irena Gonzalez LISW [address] [place] [address] Adjunct Professor Of Voice Hematology/Oncology 04/16/22 Millie Pantoja MD [address] [place], [place] [address] Infectious Diseases 05/21/22 Lorenzo Montana [address] [facility] [address] [place], [place] [address] Orthopedics 05/21/22 Millie Pantoja MD [address] [place], [place] [address] Referring Infectious Diseases 06/19/22 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/Fireman Relationship Specialty Start Date End Date Angel Fuller MD [address] [place] [address] PCP - General Internal Medicine 05/06/18 Yue Bravo MD, [address] [place] [address] Physician Radiation Oncology 03/06/16 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/Fireman Relationship Specialty Start Date End Date Angel Fuller MD [address] [place] [address] PCP - General Internal Medicine 05/06/18 Yue Bravo MD, [address] [place] [address] Physician Radiation Oncology 03/06/16 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/Fireman Relationship Specialty Start Date End Date Angel Fuller MD [address] [place] [address] PCP - General Internal Medicine 05/06/18 Yue Bravo MD, [address] [place] [address] Physician Radiation Oncology 03/06/16 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/Fireman Relationship Specialty Start Date End Date Angel Fuller MD [address] [place] [address] PCP - General Internal Medicine 05/06/18 Yue Bravo MD, [address] [place] [address] Physician Radiation Oncology 03/06/16 Deyanira Mendez APRN.UNARMED SECURITY OFFICER [address] [place] [address] Hematology/Oncology 03/20/22 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/Fireman Relationship Specialty Start Date End Date Angel Fuller MD [address] [place] [address] PCP - General Internal Medicine 05/06/18 Yue Bravo MD, [address] [place] [place], [place] [phone] Physician Radiation Oncology 03/06/16 Deyanira Mendez APRN.UNARMED SECURITY OFFICER [address] [place] [address] Hematology/Oncology 03/20/22 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/Fireman Relationship Specialty Start Date End Date Angel Fuller MD [address] [place] [address] PCP - General Internal Medicine 05/06/18 Yue Bravo MD, [address] [place], [place] [address] Physician Radiation Oncology 03/06/16 Deyanira Mendez APRN.CNP [address] [place], [place] [address] Hematology/Oncology 03/20/22 Irena Gonzalez LISW [address] [place] [address] Adjunct Professor Of Voice Hematology/Oncology 04/16/22 Millie Pantoja MD [address] [place] [address] Infectious Diseases 05/21/22 Lorenzo Montana [address] [address] Orthopedics 05/21/22 Millie Pantoja MD [address] [facility] [place] [address] Referring Infectious Diseases 06/19/22 Team Status: Active [...] Erik Jones DO Attending Provider, Referring P kenyetta Active Team Status: Inactive Member Role Status Dates Dr. Angel Fuller MD Primary Care Provider, Referring Pr ovider Active Irving COLEMAN, PA Attending Provider Active Team Status: Inactive Member Role Status Dates Dr. Angel Fuller MD Primary Care Provider Active Dr. Beulah Bain MD Attending Provider, Referring Pr ovider Active 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/Fireman Relationship Specialty Start Date End Date Angel Fuller MD [address] [place] [address] PCP - General Internal Medicine 05/06/18 Yue Bravo MD [address] [place], [place] [address] Physician Radiation Oncology 03/06/16 Deyanira Mendez APRN.UNARMED SECURITY OFFICER [address] [place] [address] Hematology/Oncology 03/20/22 Irena Gonzalez LISW [address] [place] [address] Adjunct Professor Of Voice Hematology/Oncology 04/16/22 Millie Pantoja MD [address] [place] [address] Infectious Diseases 05/21/22 Lorenzo Montana [address] [address] Orthopedics 05/21/22 Millie Pantoja MD [address] [place] [address] Referring Infectious Diseases 06/19/22 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/Fireman Relationship Specialty Start Date End Date Angel Fuller MD [address] [place] [address] PCP - General Internal Medicine 05/06/18 Yue Bravo MD [address] [place] [address] Physician Radiation Oncology 03/06/16 Deyanira Mendez APRN.UNARMED SECURITY OFFICER [address] [place] [address] Hematology/Oncology 03/20/22 Irena Gonzalez LISW [address] [place] [address] Adjunct Professor Of Voice Hematology/Oncology 04/16/22 Millie Pantoja MD [address] [place] [address] Infectious Diseases 05/21/22 Lorenzo Montana [address] [place] [address] Orthopedics 05/21/22 Millie Pantoja MD [address] [place], [place] [address] Referring Infectious Diseases 06/19/22 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/Fireman Relationship Specialty Start Date End Date Angel Fuller MD [address] [place] [address] PCP - General Internal Medicine 05/06/18 Yue Bravo MD [address] [place] [address] Physician Radiation Oncology 03/06/16 Deyanira Mendez APRN.UNARMED SECURITY OFFICER [address] [place] [address] Hematology/Oncology 03/20/22 Irena Gonzalez LISW [address] [place] [address] Adjunct Professor Of Voice Hematology/Oncology 04/16/22 Millie Pantoja MD [address] [place], [place] [address] Infectious Diseases 05/21/22 Lorenzo Montana [address] [place], [place] [address] Orthopedics 05/21/22 Millie Pantoja MD [address] [place], [place] [address] Referring Infectious Diseases 06/19/22 Team Status: Inactive Member Role Status Dates Dr. Angel Fuller MD Primary Care Provider, Referring Pr ovider Active Dr. Marco Obrien MD Attending Provider Active Team Status: Inactive Member Role Status Dates Dr. Angel Fuller MD Primary Care Provider Active Dr. Marco Obrien MD Attending Provider, Referring Pro vider Active 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/Fireman Relationship Specialty Start Date End Date Angel Fuller MD [address] [place] [address] PCP - General Internal Medicine 05/06/18 Yue Bravo MD [address] [place], [place] [address] Physician Radiation Oncology 03/06/16 Deyanira Mendez APRN.UNARMED SECURITY OFFICER [address] [place] [address] Hematology/Oncology 03/20/22 Irena Gonzalez LISW [address] [place] [address] Adjunct Professor Of Voice Hematology/Oncology 04/16/22 Millie Pantoja MD [address] [place] [address] Infectious Diseases 05/21/22 Lorenzo Montana [address] [facility] 2 [place] [address] Orthopedics 05/21/22 Millie Pantoja MD [address] [place] [address] Referring Infectious Diseases 06/19/22 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/Fireman Relationship Specialty Start Date End Date Angel Fuller MD [address] [place] [address] PCP - General Internal Medicine 05/06/18 Yue Bravo MD [address] [place] [address] Physician Radiation Oncology 03/06/16 Deyanira Mendez APRN.UNARMED SECURITY OFFICER [address] [place] [address] Hematology/Oncology 03/20/22 Irena Gonzalez LISW [address] [place] [address] Adjunct Professor Of Voice Hematology/Oncology 04/16/22 Millie Pantoja MD [address] [facility] [place] [address] Infectious Diseases 05/21/22 Lorenzo Montana [address] [facility] 2 [place] [address] Orthopedics 05/21/22 Millie Pantoja MD [address] [place] [address] Referring Infectious Diseases 06/19/22 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/Fireman Relationship Specialty Start Date End Date Angel Fuller MD [address] [place] [address] PCP - General Internal Medicine 05/06/18 Yue Bravo MD [address] [place], [place] [address] Physician Radiation Oncology 03/06/16 Deyanira Mendez APRN.UNARMED SECURITY OFFICER [address] [place] [address] Hematology/Oncology 03/20/22 Irena Gonzalez LISW [address] [place] [address] Adjunct Professor Of Voice Hematology/Oncology 04/16/22 Mlilie Pantoja MD [address] [place] [address] Infectious Diseases 05/21/22 Lorenzo Montana [address] [address] Orthopedics 05/21/22 Millie Pantoja MD [address] [place] [address] Referring Infectious Diseases 06/19/22 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/Fireman Relationship Specialty Start Date End Date Angel Fuller MD [address] [place] [address] PCP - General Internal Medicine 05/06/18 Yue Bravo MD [address] [place] [address] Physician Radiation Oncology 03/06/16 Deyanira Mendez APRN.UNARMED SECURITY OFFICER [address] [place] [address] Hematology/Oncology 03/20/22 Irena Gonzalez LISW [address] [place] [address] Adjunct Professor Of Voice Hematology/Oncology 04/16/22 Millie Pantoja MD [address] [place] [address] Infectious Diseases 05/21/22 Lorenzo Montana [address] [place] [address] Orthopedics 05/21/22 Millie Pantoja MD [address] [place] [address] Referring Infectious Diseases 06/19/22 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/Fireman Relationship Specialty Start Date End Date Angel Fuller MD [address] [place] [address] PCP - General Internal Medicine 05/06/18 Yue Bravo MD [address] [place] [address] Physician Radiation Oncology 03/06/16 Deyanira Mendez APRN.UNARMED SECURITY OFFICER [address] [place] [address] Hematology/Oncology 03/20/22 Irena Gonzalez LISW [address] [place] [address] Adjunct Professor Of Voice Hematology/Oncology 04/16/22 Millie Pantoja MD [address] [place] [address] Infectious Diseases 05/21/22 Lorenzo Montana [address] [facility] 2 [place] [address] Orthopedics 05/21/22 Millie Pantoja MD [address] [place] [address] Referring Infectious Diseases 06/19/22 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/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 Relationship Specialty Start Date End Date Angel Fuller MD [address] [place] [address] PCP - General Internal Medicine 05/06/18 Yue Bravo MD [address] [place] [address] Physician Radiation Oncology 03/06/16 Deyanira Mendez APRN.UNARMED SECURITY OFFICER [address] [place] [address] Hematology/Oncology 03/20/22 Irena Gonzalez LISW [address] [place] [address] Adjunct Professor Of Voice Hematology/Oncology 04/16/22 Millie Pantoja MD [address] [place] [address] Infectious Diseases 05/21/22 Lorenzo Montana [address] [facility] 2 [place] [address] Orthopedics 05/21/22 Millie Pantoja MD [address] [place] [address] Referring Infectious Diseases 06/19/22 Team Status: Active [...] End: March 06, 2024 Luis Daniel Son SSIS ETL DEVELOPER, SSIS ETL DEVELOPER-C Attending Provider Active S tart: March 06, [...] 2024 End: April 04, 2024 SUMIT Kamara Attending Provider Active S tart: April 04, [...] 2024 End: May 17, 2024 Dr. Anthony Mckoen MD Attending Provider Active Start: May 17, 2024 End: May 17, 2024 Dr. Anthony Mckeon MD Referring Provider Active Start: May 17, 2024 End: May 17, 2024 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/Fireman Relationship Specialty [place] [address] [place] [address] [place] [address] PCP - General Internal Medicine 05/06/18 Yue Bravo MD [address] [place], [place] [address] Physician Radiation Oncology 03/06/16 Deyanira Mendez APRN.UNARMED SECURITY OFFICER [address] [place], [place] [address] Hematology/Oncology 03/20/22 Irena Gonzalez LISW [address] [place] [address] Adjunct Professor Of Voice Hematology/Oncology 04/16/22 Millie Pantoja MD [address] [place] [address] Infectious Diseases 05/21/22 Lorenzo Montana [address] 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 Relationship Specialty Start Date End Date Angel Fuller MD [address] [place] [address] [place] [address] PCP - General Internal Medicine 05/06/18 Yue Bravo MD [address] [place] [address]61 Physician Radiation Oncology 03/06/16 Deyanira Mendez APRN.CNP [address] [place] [address] Hematology/Oncology 03/20/22 Irena Gonzalez, DRY FOLDER CLOTH [address] [place] [address] Adjunct Professor Of Voice Hematology/Oncology 04/16/22 Millie Pantoja MD [address] [place] [address] Infectious Diseases 05/21/22 Rubén Lorenzo Chavarria [address] [place] [address] Orthopedics 05/21/22 Millie Pantoja MD [address] [place] [address] Referring Infectious Diseases 06/19/22 Team Status: Inactive [...] Inactive Member Role/Relationship Status Dates Dr. Angel Fluler MD Primary Care Provider Active Start: May [...] Inactive Member Role/Relationship Status Dates Dr. Angel Fulelr MD Primary Care Provider Active Start: June [...] Inactive Member Role/Relationship Status Dates Dr. Angel Fulelr MD Primary Care Provider Active Start: July [...] Status Dates Dr. Jefry Mir DO Emergency Departm ent [...] Member Role: Primary Care Physician Address: Address: [address] [place] [address] Dr IVANNA [place], [address] Care Team Related Persons Name: ROBERTO BURGER Name: ROBERTO BURGER Name: MYLES MONROY Care Team Personnel Name: ANGEL FULLER MD Position: Physician Member Role: Primary Care Physician Address: Address: [address] [place] [address] Dr [place], [place] [address] Care Team Related Persons Name: ROBERTO BURGER Name: ROBERTO BURGER Name: MYLES MONROY INFORMATION SOURCE (unrecogn ized section and content) DATE CREATED AUTHOR 03/10/2023 [facility] ([place]) DATE CREATED AUTHOR AUTHOR'S ORGANIZ ATION 05/04/[address] [facility] DATE CREATED AUTHOR AUTHOR'S ORGANIZ ATION 08/19/2024 [facility] DATE CREATED AUTHOR AUTHOR'S ORGANIZ ATION 11/29/2024 [facility] DATE CREATED AUTHOR AUTHOR'S ORGANIZ ATION 12/13/2024 [facility] FOR RECORDS PERTAINING TO PATIENTS WHO ARE [...] BE BASED ON THE PRIMARY CLINICAL RECORDS. [facility] [employer] provides no warranty or guarantee of the accuracy or completeness of information in this document.
== END | disposition home or self-care (01) ==
LOC: CT 18:26
PROVIDERS: PCP Internal Medicine; Referring Provider Orthopaedic Surgery; Visit Provider Orthopaedic Surgery
DX: M17.11 Unilateral primary osteoarthritis, right knee (principal)
CPT/HCPCS: 73700

== ENCOUNTER 2025-01-03 13:10 | Inpatient (IN) | payer MEDICARE, OTHER, SELFPAY ==
--- NOTE | 2024-12-22 10:06 | EKG12_ITS ---
Test Reason : PREOP Blood Pressure : */* mmHG Vent. Rate : 77 BPM Atrial Rate : 77 BPM P-R Int : 136 ms QRS Dur : 76 ms QT Int : 378 ms P-R-T Axes : 63 10 67 degrees QTcB Int : 427 ms Normal sinus rhythm Possible Left atrial enlargement Nonspecific ST and T wave abnormality Abnormal ECG Confirmed by GIANNA RETANA, SHAMA ([id number]), visual effects editor ARELI SOLIS ([id number]) on 12/23/2024 9:56:23 AM Referred By: Jeovanny Moore Confirmed By: SHAMA KATZ MD
[2024-12-22 11:39] LABS: Prothrombin Time (Protime)PT. 11.9 SECONDS (11.7-14.9)
[2024-12-22 11:40] LABS: Partial Thromboplast Time 29.2 Seconds (24.1-36.2)
[2024-12-22 12:25] LABS: Anion Gap 11 (5-15); BUN 8 mg/dL (4-19); BUN/Creat Ratio 12.4 RATIO (10-20); Calcium,Total 9.4 mg/dL (7.6-11.0); Carbon Dioxide 24.2 mmol/L (21.0-32.0); Chloride 98 mmol/L (98-108); Glucose 84 mg/dL (70-99); Potassium 3.8 mmol/L (3.3-5.1)
[2024-12-22 12:29] LABS: Magnesium 2.4 mg/dL (1.5-2.2)
--- NOTE | 2024-12-22 19:33 | PAT.ANE_ITS ---
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 When Was Last Pacemaker Check QUESTION #4 FULL TEXT: You/Your Family Experience fever (hyperthermia) with Anesthesia Last Oral Intake Last Oral intake: Last Oral Intake NPO since Meds taken in AM with sips of water? Meds patient instructed to take am of surgery PONV PONV - non emergency services ambulance driver: PONV - non emergency services ambulance driver Female Yes 12/20/24 08:18 HX of Motion Sickness No 12/20/24 08:18 HX of N/V After Surgery No 12/20/24 08:18 Non-Smoker Yes 12/20/24 08:18 Duration of Surgery greater Yes 12/20/24 08:18 than 60 minutes Number of Risk Factors 3 12/20/24 08:18 PONV Score Moderate Risk 12/20/24 08:18 Height & Weight Height & Weight: Anesthesia: Height & Weight Height 4 ft 5 in 11/21/24 08:14 Respiratory Assessment Respiratory Assessment - non emergency services ambulance driver: Respiratory Tract Infection Hx - non emergency services ambulance driver Hx Respiratory Tract Infection No 12/20/24 08:18 STOP Sleep Apnea STOP Sleep Apnea - non emergency services ambulance driver: STOP Sleep Apnea - non emergency services ambulance driver Hx Hypertension Yes: BP MEDS CAUSED 12/20/24 08:18 HYPOTENSION Hx Sleep Apnea No 12/20/24 08:18 CPAP BIPAP Do you snore loudly (louder No 12/20/24 08:18 than talking or can be heard Do you often feel tired/ No 12/20/24 08:18 fatigued/ sleepy during daytime? Has anyone observed you stop No 12/20/24 08:18 breathing during sleep? STOP Results Negative 12/20/24 08:18 QUESTION #5 FULL TEXT : Do you snore loudly (louder than talking or can be heard through closed doors)? Tobacco Use History Tobacco Use History - non emergency services ambulance driver: Tobacco Use History - non emergency services ambulance driver Tobacco Use Smoking Status Never smoker 12/20/24 08:18 Hx Tobacco Use No 12/20/24 08:18 Years Smoking Packs Smoked per Day Smoking Cessation Date was within the last 15 years Hx Smoking Cessation Date Hx Smoking Cessation Counseling Hematologic Medial History Hematologic Hx - non emergency services ambulance driver: Hematologic Medical Hx - hospital medical biller Hx of Blood Transfusion No 12/20/24 08:18 Hx of Transfusion in last 3 No 12/20/24 08:18 Months Date of Last Transfusion (if within last 3 months) Ever experience any problems No 12/20/24 08:18 with transfusion(s)? Specify any problems Hx of Preganancy in last 3 No 12/20/24 08:18 Months Nurse Filling Out Transfusion [id number] 12/20/24 08:18 & Questions: Date: 12/20/24 12/20/24 08:18 Time: 08:32 12/20/24 08:18 Patient unable to answer at this time (ie. confused, unrespo /Reproduction History /Reproductive History - non emergency services ambulance driver: /Reproductive Hx- non emergency services ambulance driver Hx Now No 12/20/24 08:18 Gestational Age (in weeks): EDC: Hx Hx Para Hx Section SAB No 12/20/24 08:18 PFSH Medical History Walker as ambulation aid DDD (degenerative disc disease) History of rheumatic fever Wears glasses Thyroid disease Migraine headache Non-smoker History of pain when walking History of Holter monitoring History of echocardiogram History of stress test Cardiology follow-up encounter Episode of syncope Influenza B Acute pharyngitis Burn of right upper extremity Atherosclerosis of coronary artery of [place] heart without angina pectoris Fibromyalgia Menopausal hot flushes Symptoms of gastroesophageal reflux Hypertension Hyperparathyroidism Paresthesia Skin cancer GERD (gastroesophageal reflux disease) Osteopenia Osteoarthritis Heart murmur Hormone deficiency High cholesterol Headache Gastrointestinal problem Cataracts, bilateral Breast cancer Breast lump UTI (urinary tract infection) Back problem Arthritis Hx of breast cancer Home Medications Medication Instructions Recorded Last Taken Type acetaminophen 500 mg tablet 1,000 mg PO BID PRN Pain 0 06/10/23 11/20/24 History (Tylenol Extra Strength) cyanocobalamin (vitamin B-12) 100 mcg subcut QMONTH bustamante pplement 04/05/24 11/16/24 History 1,000 mcg/mL injection solution Allergy/AdvReac Type Severity Reaction Status Date / Time duloxetine (From Cymbalta) AdvReac Mild dizziness Verified 12/21/24 15:01 Family History Father Heart disease Mother Heart disease Osteoporosis Thyroid disorder Brother Heart disease Hypertension Hypercholesterolemia Daughter Cancer Sister Arthritis Hypertension Hypercholesterolemia Osteoporosis Thyroid disorder Surgical History History of left heart catheterization (08/16/20) History of endoscopy History of colonoscopy History of lumpectomy Hx of cataract surgery H/O: hysterectomy Social History Smoking Status: Never smoker alcohol intake: never substance use type: does not use what type of physical activity do you participate in: walking and weight training frequency: 1-2 times per week Audit: Pertinent Findings Pertinent Findings EKG Perinent findings: August 13, 2024. Sinus rhythm with PACs. Minimal LVH. Echo (EF%) pertinent findings: May 30, 2022. EF of 50 to 55%. No aortic valve stenosis noted. RVSP is 32 mmHg. February 21, 2022. EF is 60%. RVSP is 21 mmHg. No aortic valve stenosis noted. Heart catheterization pertinent findings: August 16, 2020. EF is 55 to 60%. Coronary arteries have mild to no disease. Consult pertinent findings: August 06, 2023. Jose ARANA. 1. Heart [id number] Holter from June 24, 2023 demonstrated normal sinus rhythm with occasional PACs and rare PVCs. Results reviewed with patient. Continue to monitor for now. 2. [id number]. Blood pressure readings from home likewise are well-controlled. Continue to monitor. Additional pertinent findings: Holter monitor. June 24, 2023. Normal sinus rhythm with occasional PACs and rare PVCs. 30-day event monitor. August 19, 2020. Frequent PACs. Frequent short runs of symptomatic nonsustained atrial tachycardia. Possible nonsustained atrial fibrillation. Recommendation Anesthesia Recommendation Anesthesia recommendation: OPTIMIZED for anesthesia
[2025-01-03] VITALS (19 sets, daily range): BP systolic 94–136; BP diastolic 55–76; PULSE 60–84; RESP 12–18; TEMP 36.3–36.8; O2SAT 96–100; BMI 25.1
[2025-01-03] MEDS: Lactated Ringers 1,000 ML 15 ML IV (09:52)
--- NOTE | 2025-01-03 09:52 | PCM.HP.BLA ---
History and Physical Date of Admission: 01/03/25 [facility] [address] [place] [address] OFFICE VISIT Date of Service: 11/23/24 MR#: [id number] Acct: [id number] Name: YURY GAYLE Rep #: [id number] : 1950 Provider: Dr. Jeovanny Moore DO Age/Sex: 74/F Location: [facility] [place] Status: Signed Intake Vital Signs 11/17/2508:21 Height 5 ft 4 in Intake Visit Reasons: RIGHT KNEE Chief Complaint: Furnace Tender Required: No Accompanied by: Self Is patient in pain?: Yes (right posterior knee and calf) Pain scale (1-10): 5 Allergies duloxetine (From Cymbalta) Adverse Reaction (Mild, Verified 11/23/24 10:32) dizziness Medications Medication Instructions Recorded Confirmed Type acetaminophen 500 mg tablet 1,000 mg PO BID PRN Pain 06/10/23 11/23/24 History (Tylenol Extra Strength) cyanocobalamin (vitamin B-12) 100 mcg subcut QMONTH 04/05/24 11/23/24 History 1,000 mcg/mL injection solution cholecalciferol (vitamin D3) 1,250 1,250 mcg PO QWEEK #4 caps 09/23/24 11/23/24 Rx mcg (50,000 unit) capsule tramadol 50 mg tablet 50 mg PO Q4H PRN PRN Pain 3 days 11/21/24 11/23/24 Rx #20 tabs Have you fallen in the past year?: No PFSH Medical History Episode of syncope Influenza B Acute pharyngitis Burn of right upper extremity Atherosclerosis of coronary artery of [place] heart without angina pectoris Fibromyalgia Menopausal hot flushes Symptoms of gastroesophageal reflux Hypertension Hyperparathyroidism Paresthesia Skin cancer GERD (gastroesophageal reflux disease) Osteopenia Osteoarthritis Heart murmur Hormone deficiency High cholesterol Headache Gastrointestinal problem Cataracts, bilateral Breast cancer Breast lump UTI (urinary tract infection) Back problem Arthritis Hx of breast cancer Surgical History History of left heart catheterization (08/16/20) History of endoscopy History of colonoscopy History of lumpectomy Hx of cataract surgery H/O: hysterectomy Family History Father Heart disease Mother Heart disease Osteoporosis Thyroid disorder Brother Heart disease Hypertension Hypercholesterolemia Daughter Cancer Sister Arthritis Hypertension Hypercholesterolemia Osteoporosis Thyroid disorder Social History Smoking Status: Never smoker alcohol intake: never substance use type: does not use what type of physical activity do you participate in: walking and weight training frequency: 1-2 times per week HPI RIGHT KNEE Details: This documentation accurately reflects the service provided and the decisions made by me, Dr. Jeovanny Moore, DO 11/23/24 0815. Part of today’s visit was documented by [ ], acting as scribe. YURY GAYLE is a 74 year old F medical history significant for hypertension, mitral valve prolapse, hyperlipidemia, right breast cancer status post lobectomy, brief chemotherapy, radiation therapy, fever of unknown origin, fibromyalgia, history of emotional stress due to domestic issues, daytime somnolence, COPD, here today for right knee pain. Using walker last few severe pain. Recent ED visit. Tramadol slightly helpful. Continues to use ice that is helpful short term. Reports deep, dull, or burning pain of posterior knee and lateral lower extremity to ankle. Right calf tightness with bending at knee. Pain overall worsened after completing therapy. Denies numbess or tingling. At the patient's last appointment she was finished with physical therapy but she continued with the exercises and stretches on her own at home. This weekend the pain was much worse. She sees Lindsey Peterson as her stereoptician. 11/21/2024 ER visit for knee pain: X-rays were taken Doppler ultrasound negative for DVT was given oral tramadol. 10/31/2024 visit:here today for right knee pain. Patient states she has been having problems with the knee and she is unsure if she did something to it during physical therapy. She describes the pain in the posterior lateral knee and she feels it down into the posterior lower leg all the way to the top of her foot. . She states it does not hurt to touch or rub but if she flexes the knee she feels a lot of pain in the posterior knee. She states it feels as if something is really tight and she gets a dull, deep pain in the anterior lateral aspect of the knee and into the lower leg. She states she didn't have this much discomfort before physical therapy. She states she has finished physical therapy. She takes Tylenol for the pain. She sees a neurologist and she was prescribed lyrica for the neuropathy. She denies any new falls or injuries to the knee. Plan:Patient is here today for continued right knee pain. Of note her knee itself is actually doing pretty good her medial sided knee pain as pretty much resolved she did have some physical therapy and this caused some irritation of her biceps femoris as well as her right lateral gastroc and peroneal areas. I reviewed her previous knee x-rays that were taken and she does have severe knee arthritis. I explained to her the knee could cause pain down into the lower leg but usually only to mid leg and on the way to the foot and the neuropathy could be causing her some pain into the foot and up into the lower leg as well. However most likely she might have inflame some of her soft tissue with the exercises she was doing explained that she could have pulled her gastrocnemius musculature if she was tight and started doing physical therapy and stretched them more than normal. Recommend she continue to stretch particularly the gastroc and the biceps femoris and hamstrings more then work on strengthening, apply topical anti-inflammatory such as Voltaren Gel and take an oral anti-inflammatory. She can apply heat to the area and then stretch and apply ice after to get as much benefit out of the stretches. 09/07/2024 visit: here today for right knee steroid injection. 09/05/2024 visit: here today for right knee. Patient states that the pain in her right knee has gotten worse. She has done 10 sessions of physical therapy at [facility]. Patient states that the physical therapy isn't helping, and it's making the pain worse. When she bends her knee back wards, it feels like the muscle is swollen, or tight. She gets a dull ache by her mcgarry bone, and between her ankle. Patient states bending the knee backwards is the worse thing for her to do. She can't lift her knee up high, because the pain hurts so bad. She states the pain goes straight down the leg. Patient states that her calf gets very tight sometimes. She denies having any injury to the knee. Plan:Patient is here today for increased right knee pain after doing physical therapy. Patient did not have any recent injury to the knee. I spoke with patient that I reviewed her xrays from [facility] from last years versus this year and her arthritis has progressed. I spoke with patient that the treatment options for knee arthritis is steroid injection, viscosupplementation injections, physical therapy, bracing or a TKA. I spoke with patient that if she can't get her symptoms controlled with the conservative treatments we would then consider doing a total knee replacement. I would not recommend she continue with PT if she feels it is worsening her pain but we could try aquatic therapy if she would like. Patient would like to continue with PT but is going to talk with them to try and go slower with PT and see if doing less helps with her pain. I spoke with patient that since her last steroid injection was in July of last year we could do one today to see if that also helps with the inflammation. Patient thinks she may have had a recent injection with [facility] therefore we will go ahead and request the records from them and call her to let her know once we have received them to let her know when she can have a steroid injection. 06/24/2024 visit:74 year old F with medical history significant for but not limited to episodes of syncope, fibromyalgia, polyneuropathy, cervical degenerative disc disease, hyperparathyroidism, paresthesias, chronic back pain, GERD, patient of [facility] who has known arthritis in her knee was had multiple steroid and gel injections and was planning to have a total knee arthroplasty however continues to have fever of unknown origin that is continually being worked up . here today to discuss possible gel injections in her right knee. She last had an injection with [facility] about a year ago which she believes was a steroid injection. She states that her pain varies on how much activity she does but she does have some weakness in the knee as well. She did have a flare up of pain over her posterior knee along with some weakness. She did used heating pad when she had the flare up. At that same time she was taking gabapentin and is unsure if that helped with her knee pain. She denies any previous surgery on this knee. The only steroid injection she had was lat year in July. She does occasionally still the get the fever but it she did have a work up done by an infectious disease doctor in [place] who then referred her to Dr. Fung at [facility] who also did a work up but has not found out the cause so they released her. She denies physical therapy. Ortho Exam General General: Yes no acute distress and Yes well groomed Neurologic: Yes alert and Yes oriented x3 Psychologic: Yes reasonable and appropriate Right Wrist/Hand WRIST: slight ulnar deviation to index and middle fingers bilaterally Right Knee Skin/Wound: Yes CDI, No erythema, No ecchymosis and No swelling Knee ROM: Yes ROM-Extension -20 to 0 (-5) and Yes ROM-Flexion 0-140 (125) Examination: Yes Med jt line tenderness, No Pain with flexion, No Pain with extention, No Luz's Test, No TTP Pes Anserine and No Illiotibial band tenderness Stability: NML: Anterior Drawer, NML: Mag, NML: Posterior Drawer, NML: Varus 0 and NML: Varus 30 and 1+: Valgus 0 (Due to medial joint space narrowing there is 3 mm of gapping) and 1+: Valgus 30 Apprehension with Lateral Translation: No Patella Grind: No KNEE: no signs of infection no joint effusion Constitutional: Well-developed; well-nourished; in no acute distress Eyes: No jaundice ENT: Nares patent; no obvious deformity Cardiovascular: No cyanosis; clubbing; or edema Lymphatic: No adenopathy in area of examination Skin: No rashes or lesions in the area of examination and intact Neurologic: Alert and oriented x 3 Psychiatric: Mood and affect appropriate Supplemental Info 09/05/2024 x-ray right knee: Severe medial compartment narrowing and subchondral cystic changes noted of the medial femoral condyle there is spurring noted medial femoral condyle medial tibial plateau moderate spurring of the trochlea subchondral cystic changes of the medial patellar facet 04/16/2024 CT lumbar spine: Moderate degenerative changes including degenerative disc disease and facet arthropathy suspected mild spinal stenosis L2-L3 L4-L5 due to posterior disc bulges 08/13/2023 x-ray right knee on disc from [facility] moderate medial joint space narrowing severe on flexion view. Moderate patellofemoral arthrosis. Coding Level of Care Code Off vis,est,level 4 Diagnoses Primary osteoarthritis of right knee M17.11 Osteoarthritis type: primary Assessment and Plan Assessment and Plan (1) Osteoarthritis of right knee: Status: Acute Qualifiers: Osteoarthritis type: primary Qualified Code(s): M17.11 - Unilateral primary osteoarthritis, right knee Plan Patient is here today for continued right knee pain after she was seen in the ER. I explained that there are no signs of infection and she did have a negative doppler US. she does have severe arthritis. She is having an arthritic flare-up and these can occur randomly depending on activity and amount of exercising. At this point in time after exhausting nonsurgical treatment options we can proceed with right knee TKA. Explained that with her fibromyalgia and other co-morbidities there is an increased risk including having pain after the procedure. Due to living alone she states she would need to go to rehab prior to returning home, if she were to proceed with a TKA. Risks, benefits and alternatives of surgery reviewed including but not limited to bleeding, infection, nerve, artery and/or tissue damage, fracture, VTE, mechanical feel of the knee, continued pain, stiffness and expected post-operative course. I did explain the Iovera treatment procedure that is an optional procedure that is offered in office. Recommend she continue ambulating with a walker to avoid any falls. She would like to proceed with the right knee TKA. She will need stereoptician clearance and she sees Lindsey Peterson. She will need medical clearance from her PCP and stereoptician in addition to a CT scan for MAKOplasty She will need to be an admission for rehab placement after she does live alone and does have multiple medical comorbidities Tentative surgery date January 03, 2025 admission with rehab. Follow up in an as needed basis or sooner if pain, swelling, numbness or associated symptoms, or concerns develop. All questions answered. Patient in agreement of plan. Clinical Quality Measures Falls Risk Screening/Assistive Devices Have you fallen in the past year?: No 11/23/24 1324 <Electronically signed by Jeovanny Moore DO> Date Jeovanny Moore DO I have examined the patient and the H&P has been reviewed. There are no clinical changes since date of exam.
[2025-01-03] MEDS: Scopolamine 1mg/72hr Patch 1 PATCH TD (09:53)
--- NOTE | 2025-01-03 10:16 | PCM.PRE.AN2 ---
ASA Classification* ASA Classification ASA Classification: 2 (MVP, fibromyalgia, fatigue, HTN, GERD, degenerative disc disease) Assessment & Plan Anesthesia* Anesthesia Assessment Anesthesia Assessment: Discussed sedation and/or anesthesia options, risks, benefits, and alternatives with patient/parents/legal guardian/POA. Questions invited. The patient/parents/legal guardian/POA seems to understand and agrees to proceed with anesthesia plan. Reviewed the physical assessment, medical history, allergy history and patient home medications list prior to surgery/procedure/anesthetic and documented any changes. Performed airway and anesthesia risk assessments. Anesthesia Type Anesthesia Type: Spinal and Block (Adductor canal block post-op. Benefits/risks/alternatives explained. Opportunity for questions invited) History Source History Obtained from:: Patient and Chart Anesthesia Focused Assessment* Temperature: 98.3 F Pulse Rate: 81 Blood Pressure: 135/76 Respiratory Rate: 18 Pulse Ox: 100 Oxygen Delivery Method: Room Air Airway Assessment Mouth opens: >3 cm Mallampati Score: II Teeth Condition: Intact Neck Range of motion (ROM): Full ROM Labs Anesthesia Preop lab: CBC WBC, (4.4-11.0) 7.6 K/mm3 08/13/24, 20:40 RBC, (4.2-5.4) 3.86 M/mm3 L 08/13/24, 20:40 Hgb, (12.0-15.0) 12.4 g/dL 08/13/24, 20:40 Hct, (37-47) 36.2 % L 08/13/24, 20:40 Plt Count, (150-450) 301 K/mm3 08/13/24, 20:40 CHEMISTRY Potassium, (3.3-5.1) 3.8 mmol/L 12/22/24, 10:28 Sodium, (133-145) 133 mmol/L 12/22/24, 10:28 Magnesium, (1.5-2.2) 2.4 mg/dL H 12/22/24, 10:28 BUN, (4-19) 8 mg/dL 12/22/24, 10:28 Creatinine, (0.70-1.20) 0.62 mg/dL L 12/22/24, 10: Glucose, (70-99) 84 mg/dL 12/22/24, 10:28 POC Glucose, (70-110) 120 mg/dL H 10/01/13, 16:12 TSH, (0.300-4.200) 1.340 uIU/mL 12/22/24, 10:28 COAG PT, (11.7-14.9) 11.9 SECONDS 12/22/24, 10:28 Pre-Assessment Diagnosis/Proposed Procedure Planned Operative Procedure(s): RIGHT TOTAL KNEE REPLACEMENT ROBOTIC ARM ASSISTED Anesthesia History 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 When Was Last Pacemaker Check QUESTION #4 FULL TEXT: You/Your Family Experience fever (hyperthermia) with Anesthesia Last Oral Intake Last Oral intake: Last Oral Intake NPO since 06:30 01/03/25 09:29 Meds taken in AM with sips of No 01/03/25 09:29 water? Meds patient instructed to take am of surgery PONV PONV - sanitation superintendent: PONV - sanitation superintendent Female Yes 12/20/24 08:18 HX of Motion Sickness No 12/20/24 08:18 HX of N/V After Surgery No 12/20/24 08:18 Non-Smoker Yes 12/20/24 08:18 Duration of Surgery greater Yes 12/20/24 08:18 than 60 minutes Number of Risk Factors 3 12/20/24 08:18 PONV Score Moderate Risk 12/20/24 08:18 Height & Weight Height & Weight: Anesthesia: Height & Weight Height 5 ft 4 in 01/03/25 09:29 Weight: 66.5 kg 01/03/25 09:29 Body Mass Index (BMI) 25.1 01/03/25 09:29 Respiratory Assessment Respiratory Assessment - sanitation superintendent: Respiratory Tract Infection Hx - sanitation superintendent Hx Respiratory Tract Infection No 12/20/24 08:18 STOP Sleep Apnea STOP Sleep Apnea - sanitation superintendent: STOP Sleep Apnea - sanitation superintendent Hx Hypertension Yes: BP MEDS CAUSED 12/20/24 08:18 HYPOTENSION Hx Sleep Apnea No 12/20/24 08:18 CPAP BIPAP Do you snore loudly (louder No 12/20/24 08:18 than talking or can be heard Do you often feel tired/ No 12/20/24 08:18 fatigued/ sleepy during daytime? Has anyone observed you stop No 12/20/24 08:18 breathing during sleep? STOP Results Negative 12/20/24 08:18 QUESTION #5 FULL TEXT : Do you snore loudly (louder than talking or can be heard through closed doors)? 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 Specify any problems Hx of Preganancy in last 3 No 12/20/24 08:18 Months Nurse Filling Out Transfusion [email or web address] 12/20/24 08:18 & Questions: Date: 12/20/24 12/20/24 08:18 Time: 08:32 12/20/24 08:18 Patient unable to answer at this time (ie. confused, unrespo /Reproduction History /Reproductive History - sanitation superintendent: /Reproductive Hx- sanitation superintendent Hx Now No 12/20/24 08:18 Gestational Age (in weeks): EDC: Hx Hx Para Hx Section SAB No 12/20/24 08:18 Does the father of the baby or his family experience fever w Father of the baby Malignant Hypertension history comment Active Medications Active Medications: Current Medications Generic Name Dose Route Start Last Admin Trade Name Freq PRN Reason Stop Dose Admin Acetaminophen 1,000 mg 01/03/25 10:45 01/03/25 09:53 Acetaminophen 500 Mg Tablet PO 01/03/25 10:46 1,000 mg PREOP ONE Administration Celecoxib 400 mg 01/03/25 10:45 01/03/25 09:53 Celecoxib 200 Mg Capsule PO 01/03/25 10:46 400 mg PREOP ONE Administration Dexamethasone Sodium Phosphate 10 mg 01/03/25 10:45 01/03/25 10:13 Dexamethasone 10 Mg/Ml Vial IV 01/03/25 10:46 Not Given INTRAOP ONE Gabapentin 600 mg 01/03/25 10:45 01/03/25 09:53 Gabapentin 600 Mg Tablet PO 01/03/25 10:46 600 mg PREOP ONE Administration Cefazolin Sodium 2 gm/ Sodium 110 mls @ 150 mls/hr 01/03/25 10:45 01/03/25 10:13 Chloride IV 01/03/25 11:28 Not Given INTRAOP ONE Tranexamic Acid 1,000 mg/ 110 mls @ 660 mls/hr 01/03/25 10:45 01/03/25 10:13 Sodium Chloride IV 01/03/25 10:54 Not Given INTRAOP ONE Tranexamic Acid 1,000 mg/ 110 mls @ 660 mls/hr 01/03/25 10:45 01/03/25 10:13 Sodium Chloride IV 01/03/25 10:54 Not Given INTRAOP ONE Lactated Ringer's 1,000 mls @ 125 mls/hr 01/03/25 10:45 IV 01/03/25 18:44 .Q8H DAKOTAH Lactated Ringer's 1,000 mls @ 15 mls/hr 01/03/25 09:00 01/03/25 09:52 IV 15 mls/hr .Q48H DAKOTAH Administration Insulin Human Lispro 1 - 6 unit 01/03/25 10:45 Insulin Lispro 100 Unit/Ml Insuln.Pen SC 01/03/25 18:00 Q4H PRN PRN BG>/= 180, SEE PROTOCOL Protocol Scopolamine HBr 1 patch 01/03/25 10:45 01/03/25 09:53 Scopolamine 1mg/72hr Patch TD 01/03/25 10:46 1 patch PREOP ONE Administration PFSH Medical History Walker as ambulation aid DDD (degenerative disc disease) History of rheumatic fever Wears glasses Thyroid disease Migraine headache Non-smoker History of pain when walking History of Holter monitoring History of echocardiogram History of stress test Cardiology follow-up encounter Episode of syncope Influenza B Acute pharyngitis Burn of right upper extremity Atherosclerosis of coronary artery of [place] heart without angina pectoris Fibromyalgia Menopausal hot flushes Symptoms of gastroesophageal reflux Hypertension Hyperparathyroidism Paresthesia Skin cancer GERD (gastroesophageal reflux disease) Osteopenia Osteoarthritis Heart murmur Hormone deficiency High cholesterol Headache Gastrointestinal problem Cataracts, bilateral Breast cancer Breast lump UTI (urinary tract infection) Back problem Arthritis Hx of breast cancer Home Medications Medication Instructions Recorded Last Taken Type acetaminophen 500 mg tablet 1,000 mg PO BID PRN Pain 06/10/23 12/29/24 History (Tylenol Extra Strength) cyanocobalamin (vitamin B-12) 100 mcg subcut QMONTH supplement 04/05/24 12/20/24 History 1,000 mcg/mL injection solution Allergy/AdvReac Type Severity Reaction Status Date / Time duloxetine (From Cymbalta) AdvReac Mild dizziness Verified 01/03/25 09:18 Family History Father Heart disease Mother Heart disease Osteoporosis Thyroid disorder Brother Heart disease Hypertension Hypercholesterolemia Daughter Cancer Sister Arthritis Hypertension Hypercholesterolemia Osteoporosis Thyroid disorder Surgical History History of left heart catheterization (08/16/20) History of endoscopy History of colonoscopy History of lumpectomy Hx of cataract surgery H/O: hysterectomy Social History Smoking Status: Never smoker alcohol intake: never substance use type: does not use what type of physical activity do you participate in: walking and weight training frequency: 1-2 times per week Review of Systems (Anesthesia) ROS Narrative System reviewed and no additional complaints, except as documented. Physical Exam Const alert, oriented x3 and average body habitus Resp normal respiratory effort, normal air movement and clear to auscultation bilaterally Cardio regular rate, regular rhythm and no murmurs
[2025-01-03] MEDS: Midazolam 2 MG/2 ML Syringe IV (10:40)
--- NOTE | 2025-01-03 10:45 | KNEE_PTH ---
PATIENT: YURY GAYLE LOC: [facility] U#:[id number] AGE/SX: 74/F ROOM: [facility]317 RE01/03/[address]: Dr. Jeovanny Moore DO : 1950 BED: 1 DIS: 01/04/2025 SPEC #: [id number] RECD: 01/03/25 14:22 STATUS: CECILIA REЕлена #: [id number] BOONE: 01/03/25 10:[address]: Jeovanny Moore DEPT: SURGICAL PATHOLOGY RECD BY: Filemon Quintanilla ENTERED: 01/03/25 15:07 SP TYPE: TOTAL KNEE OTHR DR: Dr. Yuval Woods MD Tissues: A - Knee, NOS Procedures: Decalcification bone/plaque Surgery Specimen Level III HEADER OPERATION: ERAS, right total knee replacement robotic arm assist PRE-OP DIAGNOSIS: Osteoarthritis of right knee TISSUE SUBMITTED: A- Bone and soft tissue, right knee MICROSCOPIC DIAGNOSIS A. Bone and soft tissue, right knee, robotic assisted total knee arthroplasty: - Degenerative osteoarthritis MICROSCOPIC DESCRIPTION Slides are reviewed. GROSS DESCRIPTION A. Received in formalin labeled with the patient's name and date of . Designated as " bone and soft tissue R knee" is an 8.0 x 7.1 x 2.2 cm aggregate of irregular bone and tissue fragments, collectively arising in a knee joint. The articular cartilage is lucas to red and granular with areas of eburnation and focal peripheral osteophyte formation. Automobile Parts Assembler sections are submitted in 2 cassettes, following decalcification. [place] 01/03/2025 CPT:69145,33961
[2025-01-03] MEDS: Cefazolin 1 GM/5 ML Vial 2 GM IV (10:55)
[2025-01-03] MEDS: TRANEXAMIC ACID 1,000 MG/10 ML ML 2000 MG IV (11:32)
[2025-01-03] MEDS: 0.9% Normal Saline (Pres. free 10 ML Vial (12:23)
[2025-01-03] MEDS: Epinephrine (1 mg/ml) 1 MG/ML VIAL (12:23)
--- NOTE | 2025-01-03 13:15 | PCM.OPRPT ---
Operative Report (Standard) Operative Information Date of Procedure: 01/03/25 Pre-Operative Diagnosis: Right knee DJD Post-Operative Diagnosis: Same Surgery/Procedure Performed: Right total knee arthroplasty spare hand: Yes Dowel Setting Machine Operator: Claudio Hilario Tasks completed by first line production supervisor: Opening & closing and Implanting device Type of Anesthesia: Spinal RN Documented Start/Stop Times: Operation Date: 01/03/25 10:45 Case Time Into Pre-Op 01/03/25 08:49 Anesthesia Start 01/03/25 10:58 Into Room 01/03/25 10:58 Procedure Start 01/03/25 11:20 Procedure End 01/03/25 13:15 Procedure Start Time: 11:20 Procedure Stop Time: 13:15 Select all DRAINS/GRAFTS/IMPLANTS that apply: Implanted device Implanted device details: Ashley Estimated Blood Loss: 175 Specimen collected: Yes Description of specimen(s) removed: Bone Description of surgery: Preoperative diagnosis: Right knee DJD Postoperative diagnosis: Same Procedure: Right total knee arthroplasty CT guided Robotic Assisted Implant: [place] triathlon cemented, femoral component size 3, tibial baseplate size 4, asymmetric patella size 35, polyethylene X3 size 11 CS Anesthesia: Spinal with adductor canal block Tourniquet time: 22 minutes at 300 mmHg Complications: None Condition: Stable to PACU Estimated blood loss: 175 cc Rotary Dump Operator Claudio Hilario. My physician clerical dentist assistant was a vital part of this case. He was important in appropriate retraction during the case, and protection of soft tissues during procedure. His intimate knowledge of the case and my steps aided in safe and expedient completion of the procedure as well as appropriate position of the extremity during the case. He was also vital in assisting with closure under my direct supervision. Indication for procedure: This is a 74-year-old female with long standing degenerative joint disease of the knee severe osteoporosis and varus deformity who has failed conservative treatment and wished to proceed with elective total knee arthroplasty. Risk benefits and alternatives were reviewed including; risk of bleeding, infection, nerve artery and tissue damage, continued pain, postoperative stiffness, venous thromboembolism, need for postoperative rehabilitation, mechanical feel to the knee, and expected postoperative course. The pre- operative CT and templating was performed with component sizing. Procedure: The patient was met in the preoperative holding area. The operative extremity was identified by both patient and physician and was marked. Patient was met by anesthesia. An adductor canal block was placed by anesthesia postoperatively the patient was brought back to the operating room on a wheeled cart and transferred to the operating table in the supine position. Anesthesia was started. A well-padded tourniquet was placed on the operative extremity. The patient was prepped and draped in the usual sterile fashion. A timeout was called to ensure the proper patient procedure and extremity were being contemplated. An esmarch was used to exsanguinate the extremity. The tourniquet was inflated. A 10 blade scalpel was used to make a midline incision down through the skin and subcutaneous tissue. Skin retractors placed. Bovie and Aquamantis were used to perform meticulous hemostasis. full-thickness flaps were elevated medial and lateral along the joint capsule. A deep blade scalpel was used to perform a medial parapatellar arthrotomy. The knee was brought to full extension. A bovie was used to release the soft tissues off the most proximal aspect of the medial tibial plateau, a three-quarter inch curved osteotome was also used in this process. The infrapatellar fat pad was excised. The suprapatellar fat pad was excised partially anteriorolateraly and portion the anterioromedial pad was elevated from the femur. At this point our intra-articular femoral array was placed at a 45 degree angle proximal and posterior to the medial epicondyle. femoral checkpoint was placed at this time. Our tibial array was placed partially intra incisional 1 stab incision was made for the inferior pin with a 15 blade scaple, and pins were placed and attached to the tibial array , tibial checkpoint was placed in the proximal tibial metaphysis. Tourniquet was let down. At this point registration crowe were taken throughout the knee . Once the knee was registered we then tensioned the medial and lateral ligaments in extension and 90 degrees of flexion. We then used these numbers to adjust our components within parameters to balance the knee in both flexion and extension once this was done on our monitor we then proceeded with using the robotic arm to make our tibial plateau cut, anterior and posterior chamfer and distal femur cuts. we removed the cut fragments with the use of a bovie and Jolly, we did use a lamina glue spreader to insure we visualized and removed all posterior osteophytes and at this time also used the Aquamantis on the posterior joint capsule. we then trialed and achieved the desired plan with a well-balanced knee. we used the green probe to olga the corresponding tibial rotation based on our CT template. Lug holes were drilled in the femur the tibia preparation was completed with the appropriate sized base plate pinned based on previous rotation olga. An appropriate sized fin punch was used on the tibia and the patella was prepared by first using a caliper to ensure sufficient bone stock and a patellar reamer to remove the desired amount of bone. lug holes drilled for an asymmetric poly. We then brought the knee through range of motion with excellent patellar tracking. We thoroughly irrigated the knee. Trial components were removed a posterior capsular injection was preformed with our standard cocktail. In addition the aqua Mantis was also used to aid in hemostasis. Betadine rinse was allowed to sit and washed out completely. Components were cemented into place with a standard technique the tourniquet was reinflated prior to this screw ensure dry bony surfaces. After the implants were in place Betadine rinse was allowed to sit for 5 minutes while the cement hardened and this was thoroughly irrigated out followed by Aricept rinse was then used followed by several more liters of irrigation after it was allowed to sit. The joint capsule was closed with #1 Ethibond [id number] in the upper part of the arthrotomy and #1 Vicryl in the lower part of the arthrotomy. , Followed by 2-0 Vicryl in the subcutaneous tissues with mark in the skin. Arrays and checkpoints were removed prior to closure all counts were correct stab incisions were closed with a staple standard dressing in the form of Mepilex AG for the main incision and a small Mepilex over the pin holes. Thigh-high DEANA hose applied over top of dressing. Patient tolerated the procedure well and was directed to PACU in stable condition . There were no intraoperative complications. Surgical Findings: Severe osteoporosis advanced DJD varus deformity Complications Complications: No
--- NOTE | 2025-01-03 13:19 | DCINST_ITS ---
Documented by User: Dr. Jeovanny Moore DO 01/03/25 13:20 Discharge Instructions Dressing / Incision Call your doctor if you observe: Shortness of breath and Chest pain Additional Dressing/Incision Instructions:: Ice and elevate lower extremities 2 weeks while not ambulating. Ambulation is encouraged. Weight bearing as tolerated. Use assistive devise for stability. Encourage FULL knee extension and flexion 1 time EVERY time you get up and down and MULTIPLE times per day. No showering 1 week postop. May begin showering 1 week postop. Remove the dressing prior to shower and gently wash with warm water and antibacterial soap then pat dry and place abdominal pad (or plain gauze) and DEANA hose over top. must remove prior to first shower. Do not submerge for 3 weeks. Do not allow animals near the incision area. Keep clean. Follow anti-coagulation recommendations as prescribed. Do not take any NSAIDs while on blood thinner. Do not take any additional narcotic pain medication other than what was prescribed on your surgery day without discussing with physician. Narcotic medication can be addictive. Do not drink alcohol while taking narcotics. Supplement narcotic prescription with acetaminophen 1000 mg 4 times a day. Start physical therapy. If you are not currently scheduled for physical therapy or you are unsure of appointment time please call office [facility] to arrange. Call Dr. Moore's office ) with any concerns. Follow Up Care Please Follow Up With: Jeovanny Moore DO When: 2 weeks Test Results: Test results from this visit will be discussed in further detail at your follow- up appointment, if applicable. Discharge Plan Admission Admit Date/Time: 01/03/25 13:10 Primary Reason for Your Visit: R TKA Attending Provider: Jeovanny Moore Primary Care Provider: Yuval Woods Consulting Providers: Link [place] Discharge Orders/Prescriptions Prescriptions: New sennosides-docusate sodium [Stimulant Laxative Plus] 8.6-50 mg Tablet 2 tab PO BID MDD 4 tabs 10 Days Qty: 40 0RF Rx Instructions: Take 2 tablets twice daily while taking Oxycodone Discontinued acetaminophen [Tylenol Extra Strength] 500 mg tablet 1,000 mg PO BID PRN (Reason: Pain) No Action cyanocobalamin (vitamin B-12) 1,000 mcg/mL solution 100 mcg subcut QMONTH acetaminophen 500 mg tablet 1,000 mg PO Q8H Qty: 100 0RF oxycodone 5 mg tablet 5 - 10 mg PO Q4H PRN PRN (Reason: Pain Score 4-10) 7 Days Qty: 60 0RF Rx Instructions: Take 1-2 tablets every 4 hrs prn moderate to severe pain Eliquis 2.5 mg tablet 2.5 mg PO BID Qty: 28 0RF Referrals / Follow Up: Yuval Woods MD [Primary Care Provider, Internal Medicine] Disposition Disposition (needs filled in before D/C Order can be placed): Home Health Service Documented by User: SUMIT Perry 01/04/25 16:16 Discharge Instructions DC O2, CPAP, BIPAP needs Home O2 Discharge instructions: No Discharge Plan Admission Admit Date/Time: 01/03/25 13:10 Primary Reason for Your Visit: R TKA Attending Provider: Jeovanny Moore Primary Care Provider: Yuval Woods Consulting Providers: Link [place] Discharge Orders/Prescriptions Prescriptions: New sennosides-docusate sodium [Stimulant Laxative Plus] 8.6-50 mg Tablet 2 tab PO BID MDD 4 tabs 10 Days Qty: 40 0RF Rx Instructions: Take 2 tablets twice daily while taking Oxycodone Discontinued acetaminophen [Tylenol Extra Strength] 500 mg tablet 1,000 mg PO BID PRN (Reason: Pain) No Action cyanocobalamin (vitamin B-12) 1,000 mcg/mL solution 100 mcg subcut QMONTH acetaminophen 500 mg tablet 1,000 mg PO Q8H Qty: 100 0RF oxycodone 5 mg tablet 5 - 10 mg PO Q4H PRN PRN (Reason: Pain Score 4-10) 7 Days Qty: 60 0RF Rx Instructions: Take 1-2 tablets every 4 hrs prn moderate to severe pain Eliquis 2.5 mg tablet 2.5 mg PO BID Qty: 28 0RF Referrals / Follow Up: Yuval Woods MD [Primary Care Provider, Internal Medicine] Disposition Disposition (needs filled in before D/C Order can be placed): Home Health Service
--- NOTE | 2025-01-03 13:33 | RAD_ITS ---
PROCEDURE: KNEE 1 OR 2 VIEWS 01/03/2025 REASON FOR EXAM: POST OP PACU TECHNIQUE: Procedure Code: RADK Modality: DX Procedure: KNEE 1 OR 2 VIEWS Laterality: Total knee replacement. COMPARISON: November 21, 2024. FINDINGS: The patient is status post total knee replacement. There is good alignment. Postoperative soft tissue changes. RAD/Knee 1 or 2 Views IMPRESSION: Status post total knee replacement. There is good alignment. Postoperative soft tissue changes. Reading Location: [id number]
--- NOTE | 2025-01-03 13:37 | PCM.POST.ANE ---
Anesthesia: Postop Eval I Current Vital Signs Temperature: 98 F Pulse Rate: 78 Blood Pressure: 114/56 Respiratory Rate: 12 Pulse Ox: 100 Oxygen Delivery Method: Nasal Cannula Oxygen Flow Rate (L/min): 2 Assessment Airway patent: Yes Spontaneous unlabored respirations: Yes Mental status: Awake and Calm nausea: No Vomiting: No Anesthesia Complication: No Fluid Hydration Crystalloid volume administer (ml): 1,200 Total IV fluid infused: 1,200 Progress Note Anesthesia document: Postop Eval 1 completed: Yes
--- NOTE | 2025-01-03 15:40 | POSTOPAN2_ITS ---
Anesthesia Postop Eval I Sum Postop Eval Completion status Anesthesia document: Postop Eval 1 completed: Yes Anesthesia Postop Eval I Summary Anesthesia Postop Eval I Summary: Anesthesia Postop Eval I: Assessment Summary Airway patent Yes 01/03/25 13:38 MANAGER CONTRACTING.SHOF Spontaneous unlabored Yes 01/03/25 13:38 MANAGER CONTRACTING.SHOF respirations Mental status Awake,Calm 01/03/25 13:38 MANAGER CONTRACTING.SHOF nausea No 01/03/25 13:38 MANAGER CONTRACTING.SHOF Vomiting No 01/03/25 13:38 MANAGER CONTRACTING.SHOF Anesthesia Postop Eval I: Fluid Summary Crystalloid volume administer 1,200 01/03/25 13:38 MANAGER CONTRACTING.SHOF (ml) Colloids volume administered ( ml) Blood Product volume administered (ml) Total IV fluid infused 1,200 01/03/25 13:38 MANAGER CONTRACTING.SHOF Anesthesia Postop Eval I: Summary Notes Anesthesia Complication No 01/03/25 13:38 MANAGER CONTRACTING.SHOF Anesthesia Complication Comment: Post-operative progress note Anesthesia: Postop Eval II Evaluation Mental status: Awake Pain Level: 0 nausea: No Vomiting: No Complications Anesthesia Complication: No
--- NOTE | 2025-01-03 15:40 | PCM.POSTANE2 ---
Anesthesia Postop Eval I Sum Postop Eval Completion status Anesthesia document: Postop Eval 1 completed: Yes Anesthesia Postop Eval I Summary Anesthesia Postop Eval I Summary: Anesthesia Postop Eval I: Assessment Summary Airway patent Yes 01/03/25 13:38 AUTOMATIC DIE CUTTING MACHINE OPERATOR.SHOF Spontaneous unlabored Yes 01/03/25 13:38 AUTOMATIC DIE CUTTING MACHINE OPERATOR.SHOF respirations Mental status Awake,Calm 01/03/25 13:38 AUTOMATIC DIE CUTTING MACHINE OPERATOR.SHOF nausea No 01/03/25 13:38 AUTOMATIC DIE CUTTING MACHINE OPERATOR.SHOF Vomiting No 01/03/25 13:38 AUTOMATIC DIE CUTTING MACHINE OPERATOR.SHOF Anesthesia Postop Eval I: Fluid Summary Crystalloid volume administer 1,200 01/03/25 13:38 AUTOMATIC DIE CUTTING MACHINE OPERATOR.SHOF (ml) Colloids volume administered ( ml) Blood Product volume administered (ml) Total IV fluid infused 1,200 01/03/25 13:38 AUTOMATIC DIE CUTTING MACHINE OPERATOR.SHOF Anesthesia Postop Eval I: Summary Notes Anesthesia Complication No 01/03/25 13:38 AUTOMATIC DIE CUTTING MACHINE OPERATOR.SHOF Anesthesia Complication Comment: Post-operative progress note Anesthesia: Postop Eval II Evaluation Mental status: Awake Pain Level: 0 nausea: No Vomiting: No Complications Anesthesia Complication: No
[2025-01-03] MEDS: Cefazolin 2 GM in 0.9% Normal Saline (100mL Bag) 100 ML IV (17:31)
[2025-01-03] MEDS: Ensure Surgery 237 ML LIQUID PO (17:36)
--- NOTE | 2025-01-03 18:39 | PN.HOSP_ITS ---
Subjective Subjective Patient was seen and examined today at the request of orthopedic surgery, she underwent a right total knee replacement today due to osteoarthritis. Chronic medical conditions include B12 deficiency and osteoarthritis as well as degenerative joint disease of the lumbar spine. At the time of my examination, patient did not complain of any chest discomfort or shortness of breath. Objective Data Objective Data Vital Signs: Vital Signs Temp Pulse Resp BP Pulse Ox O2 Del Method O2 Flow Rate 97.9 F 79 15 136/64 H 100 Room Air 4 01/03/25 17:36 01/03/25 17:36 01/03/25 17:36 01/03/25 17:36 01/03/25 17:36 01/03/25 17:36 01/03/25 15:00 Oxygen Flow Rate (L/min) 4 Oxygen Delivery Method Room Air Weight: 66.5 kg Body Mass Index (BMI) 25.1 Intake & Output: Intake and Output for Last 24 Hours 01/01/25 01/02/25 01/03/25 23:59 23:59 23:59 Intake Total 1000 / 1000 Output Total 400 / 400 Balance 600 / 600 Lab / Micro Data 12/22/24 10:28 Labs: Laboratory Results - last 24 hr 01/03/25 09:47: POC Glucose 94 Micro: Microbiology 12/22/24 10:28 Swab (Method) Nasal Screen MRSA/MSSA - Final Radiography Diagnostic Testing: Radiology Impression Knee X-Ray 01/03/25 13:33 IMPRESSION: Status post total knee replacement. There is good alignment. Postoperative soft tissue changes. Reading Location: [facility] Physical Exam Const alert, oriented x3, no apparent distress, average body habitus and healthy appearing General Appearance: cooperative, well kempt and well developed Orientation / Consciousness: awake, oriented to person, oriented to place and oriented to time HEENT normocephalic, head/scalp atraumatic and moist oral mucous membranes Eyes PERRL, EOMs intact bilaterally and conjunctivae normal Neck supple, no JVD, thyroid normal and no carotid bruits General: trachea midline Resp normal respiratory effort, no retractions, no use of accessory muscles and clear to auscultation bilaterally Auscultation: Negative for rales, rhonchi or wheezes Cardio regular rate, regular rhythm, S1 normal heart sound, S2 normal heart sound, no murmurs, no rub and no gallops GI normal to inspection, nondistended, normoactive bowel sounds, soft to palpation, non-tender and non-distended Extremity no clubbing, cyanosis or edema Skin no rashes or lesions noted General Skin Exam: no breakdown Neuro oriented x3, CN's II-XII intact bilaterally, moves all extremities, no focal motor deficits and no sensory deficits noted Sensorium / Orientation: awake and alert Speech: speech normal Psych affect normal Assessment & Plan Assessment/Plan (1) Chronic pain of right knee: PLAN: Plan 1. B12 deficiency-patient receives monthly injections of vitamin B12 #2 osteoarthritis-patient takes Tylenol for pain at home #3 degenerative joint disease of the lumbar spine-patient states that she sees a chiropractor, she only takes Tylenol for pain #4 degenerative joint disease of the right knee-postop day 0 right knee replacement, patient will be seen by PT and OT, it may be necessary for the patient to go to a penitentiary facility or rehab center for inpatient rehab services. Patient is being seen by orthopedic surgery Total clinical time spent by myself addressing the patient's medical issues, reviewing all of her data, and collaborating with patient's care team: 35 minutes Charges/Coding Visit Charges Inpatient E&M: 51287 Subs Hosp L2
[2025-01-03] MEDS: Lactated Ringers 1,000 ML 125 ML IV (21:56)
[2025-01-04] MEDS: Cefazolin 2 GM in 0.9% Normal Saline (100mL Bag) 100 ML IV ×2 (01:30→09:39)
[2025-01-04 03:56] VITALS: BP 143/69; PULSE 73; RESP 15; TEMP 36.8; O2SAT 97
[2025-01-04] MEDS: 0.9% Saline Lock 10 ML Syringe IV (04:05)
[2025-01-04] MEDS: Lactated Ringers 1,000 ML 125 ML IV (05:46)
[2025-01-04 06:49] VITALS: BP 110/61; PULSE 64; RESP 16; TEMP 36.9; O2SAT 98
[2025-01-04] MEDS: APIXABAN 2.5 MG TABLET (WCH) PO (06:50)
[2025-01-04 07:25] LABS: Hematocrit 28.8 % (37-47); Hemoglobin 9.8 g/dL (12.0-15.0); Mean Corp Hgb Conc 34.0 g/dL (32-36); Mean Corpuscular Volume 95.0 fL (81-99); Mean Platelet Vol. 9.2 fl (6.2-12.0); Platelet Count 269 K/mm3 (150-450); RBC Distribution Width CV 12.0 % (11.6-14.6); RBC Distribution Width SD 41.6 fl (35.1-43.9); Red Blood Count 3.03 M/mm3 (4.2-5.4); White Blood Count 14.3 K/mm3 (4.4-11.0)
[2025-01-04 07:52] LABS: Anion Gap 11 (5-15); BUN 10 mg/dL (4-19); BUN/Creat Ratio 16.1 RATIO (10-20); Calcium,Total 8.7 mg/dL (7.6-11.0); Carbon Dioxide 22.4 mmol/L (21.0-32.0); Chloride 100 mmol/L (98-108); Estimated Creatinine Clearance 56.12 ml/min (50-250); Glucose 123 mg/dL (70-99); Potassium 4.4 mmol/L (3.3-5.1)
[2025-01-04] MEDS: Ensure Surgery 237 ML LIQUID PO ×2 (08:01→11:25)
--- NOTE | 2025-01-04 08:32 | PN.ORTHO_ITS ---
Subjective Subjective Kelli is a pleasant 74 yo postop day 1 s/p R TKA for severe OA with DJD and varus deformity per Dr. Moore. Patient is sitting in recliner, fully dressed and eating breakfast upon arrival. Pain is well-controlled with prn meds. Denies any chest pain or shortness of breath. Patient does verbalize she will need some sort of rehab prior to returning home where she lives alone. She does have a daughter that lives nearby, however her daughter works until 4 PM daily. Objective Data Objective Data Vital Signs: Vital Signs Temp Pulse Resp BP Pulse Ox O2 Del Method O2 Flow Rate 98.5 F 64 16 110/61 98 Room Air 4 01/04/25 06:49 01/04/25 06:49 01/04/25 06:49 01/04/25 06:49 01/04/25 06:49 01/04/25 06:49 01/03/25 15:00 Oxygen Flow Rate (L/min) 4 Oxygen Delivery Method Room Air Weight: 146 lb 9.718 oz Body Mass Index (BMI) 25.1 Intake & Output: Intake and Output for Last 24 Hours 01/02/25 01/03/25 01/04/25 23:59 23:59 23:59 Intake Total 1910 / 1910 1089.17 / 1089.17 Output Total 1000 / 1000 Balance 910 / 910 1089.17 / 1089.17 Lab / Micro Data Attestation: I reviewed the patient's lab results. 01/04/25 06:50 01/04/25 06:50 Labs: Laboratory Results - last 24 hr 01/03/25 09:47: POC Glucose 94 01/04/25 06:50: WBC 14.3 H, RBC 3.03 L, Hgb 9.8 L, Hct 28.8 L, MCV 95.0, MCH 32.3 H, MCHC 34.0, RDW Std Deviation 41.6, RDW Coeff of Shefali 12.0, Plt Count 269, MPV 9.2, Sodium 133, Potassium 4.4, Chloride 100, Carbon Dioxide 22.4, Anion Gap 11, BUN 10, Creatinine 0.59 L, Estim Creat Clear Calc 56.12, Est GFR (MDRD) Non- Af 93, BUN/Creatinine Ratio 16.1, Glucose 123 H, Calcium 8.7 Micro: Microbiology 12/22/24 10:28 Swab (Method) Nasal Screen MRSA/MSSA - Final Radiography Diagnostic Testing: Radiology Impression Knee X-Ray 01/03/25 13:33 IMPRESSION: Status post total knee replacement. There is good alignment. Postoperative soft tissue changes. Reading Location: [facility] Physical Exam Const alert, oriented x3, no apparent distress, average body habitus and healthy appearing General Appearance: cooperative, well kempt and well developed Orientation / Consciousness: oriented to person, oriented to place and oriented to time HEENT normocephalic Resp normal respiratory effort Skin no rashes or lesions noted Psych affect normal Right Knee Date of Surgery: 01/03/25 Skin/Wound: Yes CDI Contralateral Normal: Yes Homans Sign: No KNEE: Skin is pink, warm, dry and intact. There is moderate amount ecchymosis and mild swelling to the distal thigh, knee regions. There is small amount dried blood to surgical dressing. Palpation: Mild tenderness to anterior and lateral knee region Lower leg compartments are soft, nontender, easily compressible, Homans negative. Wearing thigh-high DEANA hose and SCDs. Full range of distal joints with minimal symptom aggravation Distal motor or sensory intact with brisk cap refill at 2 seconds Assessment & Plan Assessment/Plan (1) S/P total knee arthroplasty: QUALIFIERS: Laterality: right Qualified Code(s): Z96.651 - Presence of right artificial knee joint PLAN: Reviewed pain control with routine acetaminophen dosing, as needed oxycodone Patient started on Eliquis twice daily for postop DVT precautions Reviewed signs and symptoms of infection and to report any increased redness, pain, drainage, fever or chills PT/OT into work with patient at end of visit Anticipate short-term rehab once bed is available. Discussed with mental health social worker, patient will need 3 night stay per her insurance guidelines versus acute rehab placement. Anticipate transfer once approved and placement is secured. Patient aware of anticipated follow-up in Ortho office in 2 weeks for wound check, sooner for changes or concerns In agreement with plan of care This document has been transcribed using [employer] dictation software. There may be incorrect words, spelling, and punctuation. (2) Postoperative pain of right knee: (3) Osteoarthritis of right knee: QUALIFIERS: Osteoarthritis type: primary Qualified Code(s): M 17.11 - Unilateral primary osteoarthritis, right knee PLAN: Plan Case was collaborated with Dr. Moore
--- NOTE | 2025-01-04 08:47 | PCM.PN.HOSP ---
Subjective Subjective No issues overnight, pain is controlled. She does have a reactive leukocytosis Objective Data Objective Data Vital Signs: Vital Signs Temp Pulse Resp BP Pulse Ox O2 Del Method O2 Flow Rate 98.5 F 64 16 110/61 98 Room Air 4 01/04/25 06:49 01/04/25 06:49 01/04/25 06:49 01/04/25 06:49 01/04/25 06:49 01/04/25 06:49 01/03/25 15:00 Oxygen Flow Rate (L/min) 4 Oxygen Delivery Method Room Air Weight: 146 lb 9.718 oz Body Mass Index (BMI) 25.1 Intake & Output: Intake and Output for Last 24 Hours 01/03/25 01/04/25 01/05/25 03:59 03:59 03:59 Intake Total 2019 979.17 / 979.17 Output Total 1000 / 1000 Balance 1020 / 1020 979.17 / 979.17 Lab / Micro Data 01/04/25 06:50 01/04/25 06:50 Labs: Laboratory Results - last 24 hr 01/03/25 09:47: POC Glucose 94 01/04/25 06:50: WBC 14.3 H, RBC 3.03 L, Hgb 9.8 L, Hct 28.8 L, MCV 95.0, MCH 32.3 H, MCHC 34.0, RDW Std Deviation 41.6, RDW Coeff of Shefali 12.0, Plt Count 269, MPV 9.2, Sodium 133, Potassium 4.4, Chloride 100, Carbon Dioxide 22.4, Anion Gap 11, BUN 10, Creatinine 0.59 L, Estim Creat Clear Calc 56.12, Est GFR (MDRD) Non-Af 93, BUN/Creatinine Ratio 16.1, Glucose 123 H, Calcium 8.7 Micro: Microbiology 12/22/24 10:28 Swab (Method) Nasal Screen MRSA/MSSA - Final Radiography Diagnostic Testing: Radiology Impression Knee X-Ray 01/03/25 13:33 IMPRESSION: Status post total knee replacement. There is good alignment. Postoperative soft tissue changes. Reading Location: [facility] Physical Exam Narrative General: Alert, Oriented x3, Cooperative, No apparent distress HEENT: Atraumatic, EOMI, Normocephalic Oral: Moist Mucosa Neck: Supple, No JVD Lungs: Clear to auscultation, Normal air movement, No rhonchi, No wheeze, No rales Cardiovascular: Regular rate, Regular Rhythm, Normal S1, Normal S2, No murmurs Abdomen: Soft, Non Tender, Non-Distended, No Hepato-splenomegaly Extremities: No edema, dressing intact Skin: No rashes, No breakdown Neurological: No focal neurological deficits, moves all extremities the right lower extremity limited due to surgery Psych/Mental Status: Normal Affect, Appropriate Assessment & Plan Assessment/Plan (1) Chronic pain of right knee: PLAN: Plan 1. Status post right total knee replacement on 01/03/2025 for osteoarthritis – PT/OT – Pain management per primary – Reactive leukocytosis no concern for infection at this time – Medically stable for discharge, will sign off DVT: Eliquis per Ortho Charges/Coding Visit Charges Inpatient E&M: 65630 Subs Hosp L2
[2025-01-04] MEDS: Senna/Docusate Sodium 1 Tablet 2 TABLET PO (11:13)
--- NOTE | 2025-01-04 11:40 | CASEMGMT ---
Addendum entered by Kolton Clifford 01/04/25 13:35: Pt denies need for other DME. She states she just typically sponge-bathes and plans to continue to do so. Addendum entered by Kolton Clifford 01/04/25 13:24: Pt made aware she is medically ready to discharge home today. Discussed DME. Originally pt thought the walker in her room was from Dr Moore's office, but RN CM noted a tag on the walker states MS3. Pt made aware. Pt then looked @ the walker again and states that does recognize it & she is not sure if her daughter brought it into the hospital or not. She stated RN VICENTE could call her daughter to inquire about this. Call placed to daughter, Zena. She was made aware pt is medically ready to discharge today. She inquired about pt staying @ [facility] for rehab before returning home. Discussed w/her how well pt did w/therapy and that therapy states she is safe to discharge home. Also made aware of [facility]'s 3 [place] rule for SNF benefits, that pt is medically ready for dc today, and would not qualify for that. She was also made aware referral was made to [facility], they cannot accept, and reasons why. She inquired about HHC and she was made aware that CM will make referral once pt provides HHC preferences. She voices understanding. Discussed w/her pt's concerns w/getting groceries and that she stated she (daughter), pt's niece, or a friend can assist w/groceries. Inquired about the WW in pt's room. Zena states she did not bring a walker from pt's home into the hospital. She states the only walker she has seen pt use @ her home is the 4 wheeled-walker that was her late fathers'. Made aware pt reports Dr Moore informed pt he would rather she use a 2-wheeled walker for safety. She states can stop @ pt's apt after she gets off of work today and check @ pt's apartment to see if there is a 2-wheeled walker there. She was made aware, if she is unable to locate a 2-wheeled walker @ pt's home, that one can be given to pt before she goes home this evening and it would be billed through pt's insurance. She voices understanding and agreeable to getting from [employer]. She states she will notify pt's nurse when she arrives to pick pt up to take her home if she does need a walker. Addendum entered by Kolton Clifford 01/04/25 13:09: Correction: Pt has 2 daughters and one son. One daughter lives in [place] (not the son). Referral was made to [facility], they are not able to accept, as they do not have any beds available. They also stated they would not be able to accept her d/t she is doing so well/ambulating so far. Pt made aware. Discussed further discharge planning, including HHC and OP therapy & made aware of [facility] van transportation to [facility], should she choose to do OP therapy and need transportation. Pt states she would like HHC. A list of C providers including quality and resource use data and consistent with the patient’s preferred geographic region, medical needs, and insurance network were provided from the [employer] Guide. Pt made aware to choose top 3 preferences. She states she would like to eat lunch 1st and then she would take a look at it. Original Note: RN CM ASSESSMENT RN CM to room to meet with patient for initial transition planning/care coordination assessment. RN CM introduced self and role at [facility]. Pt voices understanding and consents to assessment at this time. Pt sitting up in chair in room in no distress at this time. Pt is A/O at this time and answers all questions appropriately. Care providers, pharmacy, and demographics verified/updated at this time. Strata: 1 PCP: Deven Bishop Specialists: Dr Moore-ortho, Dr Mckeon-neuro, Dr Monroy-endocrinology, VIRGINIA Morrison-cardiology, Dr Marcano-GI Preferred Pharmacy: [facility] Insurance: [facility] Prescription Benefit: Yes, [employer] LNOK: Daughter, Zena, who lives in [place]. 2 sons, one lives in [place] and the other in [place]. Living Arrangements: Lives alone in ground-floor apt w/no steps to enter. Independent @ baseline w/ADL's and IADL's. Transportation: Pt drove prior to surgery. Daughter, Zena, drives. DME: has the following DME: Pt has a 4-wheeled walker that was her late husbands. She states she also has a 2 WW walker in the room w/her that she states Dr Moore's office gave to her recently. HHC/SNF: No hx of either. Has done OP therapy @ [facility]. Reviewed therapy notes. Pt ambulated 450 ft w/use of WW and worked on steps. Pt states she wants to stay @ [facility] for rehab before returning home. Discussed w/pt how well she did w/therapy and that they feel she is safe to discharge home. Discussed [facility]'s 3 [place] In-patient criteria for SNF benefits. Pt insistent on wanting to stay @ [facility] for rehab before returning home and wants a referral sent to [facility]. She states her main concerns are not being able to drive and not being able to get groceries. Discussed possible options of her daughter or friend getting groceries for her. She states she hates to ask someone for help & does not want to do that, but could do so, if necessary. PLAN: TORITO HENDRIX RN CM
--- NOTE | 2025-01-04 14:14 | CASEMGMT ---
Addendum entered by Angie Andrade 01/04/25 15:57: DOT ZHANG into pt room, she is aware that C will be out on Thursday to see her and will be in touch with her. Provided pt with an [employer] savings card as this is ordered in dc instructions but not prescribed yet. Pt verbalized understanding of use of card. Pt denies any further needs. Addendum entered by Angie Andrade 01/04/25 15:42: Received tc from [place], [facility] will see pt and start on Thursday. Addendum entered by Angie Andrade 01/04/25 15:21: DOT ZHANG into pt room, pt sitting up in chair, pt had multiple questions regarding HHC. Answered questions and pt verbalized understanding. Pt chose [facility] as first choice and did not have other choices at this time. TC to [facility], referral made via . Spoke with CAMILO Mccormack, plan for dc this date. Original Note: TC to [facility], notified Shelia that pt will be set up for C and questioning if pt will dc this date. She states that Susy will call this DOT ZHANG back. Green sheet on chart for when pt dtr comes in in case that pt needs FWW. Rx is signed.
--- NOTE | 2025-01-04 14:28 | CHAPLAIN ---
Type of Pastoral Visit _x__ Initial Visit ___ Follow-up Visit ___ On-call Visit ___ General Patient Visit ___ Spiritual Assessment ___ Family Conference ___ Bereavement ___ Rapid Response ___ Code Blue ___ Other (describe below) Pastoral Care Referral From _x__ Patient ___ Family ___ Nurse ___ Physician ___ [employer] ___ [employer] President ___ Other (describe below) Sacrament/Intervention _x__ Active listening ___ Anointing ___ Temple ___ Bereavement ___ Communion _x__ Deana exploration ___ _x__ Life review _x__ Prayer ___ Reconciliation ___ Sacrament of Sick _x__ Supportive presence ___ Wedding ___ Other (describe below) Pastoral Comments a longer conversation with the patient as topics covered included health, support at home, being a and having a friend become a possible caregiver, her disconnection with a jehovah's witness but goal to return someday, and prayer; pt welcomes the spiritual care support and time given
--- NOTE | 2025-01-04 15:00 | PCM.DC.SUM ---
Providers Date of Admission: 01/03/25 Date of Discharge: 01/04/25 Primary Care Physician: Dr. Yuval Woods MD Consultations 01/03/25 13:10 Consult: Hospitalist Routine Consulting Provider: Hilario Adan Reason for Consult: post op medical management EMERGENT Consult: No MD Notified: Yes Date Notified: 01/03/25 Time Notified: 15:40 Method of Notification: Text Reason For Visit: Right Total Knee Replacement Robotic Arm Assisted Diagnosis Discharge Diagnosis (1) S/P total knee arthroplasty: Status: Acute Code(s): Z96.659 - Presence of unspecified artificial knee joint Qualifiers: Laterality: right Qualified Code(s): Z96.651 - Presence of right artificial knee joint Plan: Reviewed pain control with routine acetaminophen dosing, as needed oxycodone Patient started on Eliquis twice daily for postop DVT precautions Reviewed signs and symptoms of infection and to report any increased redness, pain, drainage, fever or chills PT/OT into work with patient at end of visit Anticipate short-term rehab once bed is available. Discussed with manager social work, patient will need 3 night stay per her insurance guidelines versus acute rehab placement. Anticipate transfer once approved and placement is secured. Patient aware of anticipated follow-up in Ortho office in 2 weeks for wound check, sooner for changes or concerns In agreement with plan of care This document has been transcribed using [employer] dictation software. There may be incorrect words, spelling, and punctuation. (2) Postoperative pain of right knee: Status: Acute Code(s): G89.18 - Other acute postprocedural pain; M25.561 - Pain in right knee (3) Osteoarthritis of right knee: Status: Acute Code(s): M17.11 - Unilateral primary osteoarthritis, right knee Qualifiers: Osteoarthritis type: primary Qualified Code(s): M17.11 - Unilateral primary osteoarthritis, right knee Plan Case was collaborated with Dr. Moore Medications at Discharge Home Medications cyanocobalamin (vitamin B-12) 1,000 mcg/mL injection solution 100 mcg subcut QMONTH supplement 04/05/24 acetaminophen 500 mg tablet 1,000 mg (2 x 500 mg) PO Q8H #100 tabs 01/04/25 apixaban 2.5 mg tablet (Eliquis) 2.5 mg PO BID #28 tabs 01/04/25 oxycodone 5 mg tablet 5 - 10 mg (1 - 2 x 5 mg) PO Q4H PRN PRN Pain Score 4-10 7 days #60 tabs 01/04/25 sennosides 8.6 mg-docusate sodium 50 mg tablet (Stimulant Laxative Plus) 2 tab PO BID 10 days #40 tabs 01/04/25 Held on 01/04/25. Instructions: Order Changed Hospital Course Operations total knee replacement (right) Summary of Care Provided Minutes Spent on Discharge: 35 Physical Exam Const alert, oriented x3, no apparent distress, average body habitus and healthy appearing General Appearance: cooperative, well kempt and well developed Orientation / Consciousness: oriented to person, oriented to place and oriented to time HEENT normocephalic Resp normal respiratory effort Skin no rashes or lesions noted Psych affect normal MDM Narrative Medical decision making narrative: Reviewed PT, OT and case mgmt notes from today : Pt did very well with PT and OT and that therapy states she is safe to discharge home. Also made aware of [facility]'s [place] rule for SNF benefits per case mgmt, that pt is medically ready for dc today, and would not qualify for that. Multiple resources identified for assistance at home Home health for PT requested Weight / BMI Weight Weight: 146 lb 9.718 oz Body Mass Index (BMI) 25.1 ABG / Lab / Microbiology Data 01/04/25 06:50 01/04/25 06:50 Laboratory: Laboratory Results - last 24 hr 01/04/25 06:50: WBC 14.3 H, RBC 3.03 L, Hgb 9.8 L, Hct 28.8 L, MCV 95.0, MCH 32.3 H, MCHC 34.0, RDW Std Deviation 41.6, RDW Coeff of Shefali 12.0, Plt Count 269, MPV 9.2, Sodium 133, Potassium 4.4, Chloride 100, Carbon Dioxide 22.4, Anion Gap 11, BUN 10, Creatinine 0.59 L, Estim Creat Clear Calc 56.12, Est GFR (MDRD) Non-Af 93, BUN/Creatinine Ratio 16.1, Glucose 123 H, Calcium 8.7 Microbiology: Microbiology 12/22/24 10:28 Swab (Method) Nasal Screen MRSA/MSSA - Final D/C Instructions Discharge Activity: May Not Drive May shower in (days): 5 Weight Bearing Status: Weight bearing as tolerated (using front wheeled walker) Keep extremity elevated above heart level: Operative Extremity Additional Activity Instructions: Frequent elevation and ice Call your doctor if you observe: Fever of 101 or Higher, Numbness or Tingling, Shortness of breath, Chest pain, Calf discomfort and Uncontrolled pain Change Dressing in: 5 days Additional Dressing/Incision Instructions: Ice and elevate lower extremities 2 weeks while not ambulating. Ambulation is encouraged. Weight bearing as tolerated. Use assistive devise for stability. Encourage FULL knee extension and flexion 1 time EVERY time you get up and down and MULTIPLE times per day. No showering 1 week postop. May begin showering 5 days postop. Remove the dressing prior to shower and gently wash with warm water and antibacterial soap then pat dry and place abdominal pad (or plain gauze) and DEANA hose over top. must remove prior to first shower. Do not submerge for 3 weeks. Do not allow animals near the incision area. Keep clean. Follow anti-coagulation recommendations as prescribed; Eliquis twice daily. Do not take any NSAIDs while on blood thinner. Do not take any additional narcotic pain medication other than what was prescribed on your surgery day without discussing with physician. Narcotic medication can be addictive. Do not drink alcohol while taking narcotics. Supplement narcotic prescription with acetaminophen 1000 mg 4 times a day. Start physical therapy. If you are not currently scheduled for physical therapy or you are unsure of appointment time please call office [facility] to arrange. Call Dr. Moore's office ) with any concerns. DC O2, CPAP, BIPAP Needs Home O2 Discharge instructions: No Please Follow Up With: Jeovanny Moore DO When: 2 weeks Meaningful Use Info Meaningful Use Meaningful Use Diagnoses (Choose all that apply): None applicable Discharge Plan Admission Admit Date/Time: 01/03/25 13:10 Primary Reason for Your Visit: R TKA Attending Provider: Jeovanny Moore Primary Care Provider: Yuval Woods Consulting Providers: [facility] [place] Discharge Orders/Prescriptions Prescriptions: New sennosides-docusate sodium [Stimulant Laxative Plus] 8.6-50 mg Tablet 2 tab PO BID MDD 4 tabs 10 Days Qty: 40 0RF Rx Instructions: Take 2 tablets twice daily while taking Oxycodone Discontinued acetaminophen [Tylenol Extra Strength] 500 mg tablet 1,000 mg PO BID PRN (Reason: Pain) No Action cyanocobalamin (vitamin B-12) 1,000 mcg/mL solution 100 mcg subcut QMONTH acetaminophen 500 mg tablet 1,000 mg PO Q8H Qty: 100 0RF oxycodone 5 mg tablet 5 - 10 mg PO Q4H PRN PRN (Reason: Pain Score 4-10) 7 Days Qty: 60 0RF Rx Instructions: Take 1-2 tablets every 4 hrs prn moderate to severe pain Eliquis 2.5 mg tablet 2.5 mg PO BID Qty: 28 0RF Referrals / Follow Up: Yuval Woods MD [Primary Care Provider, Internal Medicine] Disposition Disposition (needs filled in before D/C Order can be placed): Home Health Service
[2025-01-04 15:14] VITALS: BP 128/72; PULSE 68; RESP 16; TEMP 36.6; O2SAT 95
[2025-01-04 15:16] VITALS: BMI 25.2
== END 2025-01-04 18:35 | disposition home health service (06) | DRG 470 ==
LOC: MS3 14:52
PROVIDERS: Anesthesiology; Admitting Provider Orthopaedic Surgery; PCP Internal Medicine; Referring Provider Orthopaedic Surgery; Visit Provider Orthopaedic Surgery
DX: M17.11 Unilateral primary osteoarthritis, right knee (principal); E53.8 Deficiency of other specified B group vitamins; M79.7 Fibromyalgia; I25.10 Atherosclerotic heart disease of native coronary artery without angina pectoris; Z92.21 Personal history of antineoplastic chemotherapy
CPT/HCPCS: 36415; 73560; 80048; 82962; 82985; 83036; 83735; 84443; 85027; 85610; 85730; 86850; 86900; 86901; 87081; 88304; 88311; 93005; 94668; 97162; 97166; C1776; A4216

== ENCOUNTER → 2025-01-09 | Outpatient (CLI) | payer MEDICARE, OTHER, SELFPAY ==
--- NOTE | 2025-01-09 12:29 | VDLE_ITS ---
Reason For Study Reason For Study: RLE Pain Swelling Post Op RIGHT GSV is normal. CFV is compressible, spontaneous, phasic, competent and demonstrates normal augmentation. FV is compressible, spontaneous, phasic, competent and demonstrates normal augmentation. POP V is compressible, spontaneous, phasic, competent and demonstrates normal augmentation. T/P Trunk is compressible. PTV is compressible. RT PerV is compressible. Procedure This is a venous duplex using B-mode, color flow and spectral Doppler. Exam performed in department. The exam was diagnostic. A preliminary report was called and/or faxed to [facility]. VL/Venous Duplex US, Unilateral Interpretation Summary Deep veins of the right lower extremity are patent and compressible segmentally . There is no evidence of right lower extremity deep vein thrombosis. Valvular competence appears intact within the p roximal deep venous system on the right . The right great saphenous vein appears patent and compressible segmentally. Ordering Physician: Jeovanny Moore Referring Physician: Yuval Woods Performed By: Clifford Elliott RVT
== END | disposition home or self-care (01) ==
LOC: CVS 12:19
PROVIDERS: PCP Internal Medicine; Referring Provider Orthopaedic Surgery; Visit Provider Orthopaedic Surgery
DX: M79.89 Other specified soft tissue disorders (principal); Z96.651 Presence of right artificial knee joint
CPT/HCPCS: 93971